=== PATIENT | female | born 1960 | race African-American/Black ===

== ENCOUNTER 2017-06-01 16:54 | Emergency (ER) | payer MEDICARE, MEDICAID ==
[~2017-06-01] VITALS: Ht 170.2 cm; Wt 198.7 kg
[2017-06-01 16:59] VITALS: BP 130/73
--- NOTE | 2017-06-01 17:08 | Emergency Room Report ---
History of Present Illness General Chief Complaint: Headache Source: Patient, Medical Record, EMS Present Illness HPI [id number] BIBEMS for "headache" for 2 days Frontal, non-radiating No nausea/vomiting, neck pain/stiffness usually takes tylenol - "didnt want to take because I had a bad experience with tramadol. The [facility] doctor told me that oxygen made the tramadol worse in combination." Refused tylenol from SNF No history of migraine, tumor, SAH, MYNOR Denies focal extremity weakness Allergies: Coded Allergies: No Known Allergies (Unverified , 06/01/17) Patient History Past Medical History: other - headaches Past Surgical History: none Pertinent Family History: none Social History: Denies: smoking, alcohol use, drug use Last Menstrual Period: na Now: No Immunizations: UTD Reviewed Nursing Documentation: PMH: Agreed, PSxH: Agreed Nursing Documentation-PMH Past Medical History: No History, Except For Hx Hypertension: Yes Hx Asthma: Yes Hx Diabetes: Yes Hx Gastrointestinal Problems: Yes History Of Psychiatric Problem: Yes - anxiety Review of Systems All Other Systems: negative except mentioned in HPI Physical Exam Vital Signs Date Time Temp Pulse Resp B/P (MAP) Pulse Ox O2 Delivery O2 Flow Rate FiO2 06/01/17 16:43 98.2 82 22 126/74 96 Sp02 EP Interpretation: reviewed, normal General Appearance: normal inspection, well appearing, no apparent distress, alert, GCS 15, non-toxic, obese Head: normocephalic, atraumatic Eyes: bilateral eye PERRL, bilateral eye EOMI ENT: normal ENT inspection, hearing grossly normal, normal voice Neck: normal inspection, full range of motion, supple, no bony tend Respiratory: normal inspection, lungs clear, normal breath sounds, no respiratory distress, no retraction, no wheezing Cardiovascular #1: regular rate, rhythm, no edema Gastrointestinal: normal inspection, normal bowel sounds, non tender, soft, no guarding, no hernia Genitourinary: no CVA tenderness Musculoskeletal: normal inspection, back normal, normal range of motion, Shaheen' s Sign negative Neurologic: normal inspection, alert, oriented x3, responsive, digital community manager III-XII nml as tested, speech normal Psychiatric: normal inspection, judgement/insight normal, mood/affect normal Skin: normal inspection, normal color, no rash Medical Decision Making Diagnostic Impression: Primary Impression: Headache Qualified Codes: G44.209 - Tension-type headache, unspecified, not intractable ER Course Tension headache for 2 days VSS. Afebrile. Not hypoxic No focal neuro extremities Tension headache likely No signs of meningitis Well appearing. No meningismus. Doubt SAH or meningitis Given tylenol/reglan here DC back to SNF Last Vital Signs Date Time Temp Pulse Resp B/P (MAP) Pulse Ox O2 Delivery O2 Flow Rate FiO2 06/01/17 16:43 98.2 82 22 126/74 96 Status: improved Disposition: [facility] ALEJANDRO JOSEPH M.D. Jun 01, 2017 17:08
[2017-06-01] MEDS ORDERED: Metoclopramide 10mg/10ml Liq ORAL ONE (17:15)
[2017-06-01 18:00] VITALS: BP 128/68
[2017-06-01 20:20] VITALS: BP_SYST 122; BP_SYST 126; BP_DIAS 62; BP_DIAS 64
== END 2017-06-01 20:50 ==
LOC: EDBD 16:54 → EMR 17:18
DX: R51 Headache (principal); I10 Essential (primary) hypertension; E11.9 Type 2 diabetes mellitus without complications; J45.909 Unspecified asthma, uncomplicated
CPT/HCPCS: 99284

== ENCOUNTER 2017-08-19 07:23 | Inpatient (IN) | payer MEDICARE, MEDICAID ==
[2017-08-19] VITALS (34 sets, daily range): BP systolic 43–152; BP diastolic 14–92
[~2017-08-19] VITALS: Ht 160 cm; Wt 219.6 kg
[2017-08-19] MEDS ORDERED: Vancomycin 1.5gm/D5W 250ml 250 ML IVPB ONE ×2 (07:45→12:00)
[2017-08-19] MEDS ORDERED: Cefepime HCl 1 GM in NS 55 ML IV SCH (07:45)
[2017-08-19] MEDS ORDERED: Aspirin Baby 81mg ORAL ONE (07:45)
[2017-08-19] MEDS ORDERED: PROTONIX40 MG ORAL (07:46)
[2017-08-19] MEDS ORDERED: NUTRISOURCE FI205 GM PO (07:46)
[2017-08-19] MEDS ORDERED: VITAMIN B122500 MCG PO (07:46)
[2017-08-19] MEDS ORDERED: LIDOCAINE VISC100 ML ORAL (07:46)
[2017-08-19] MEDS ORDERED: TYLENOL EXTRA500 MG ORAL (07:46)
[2017-08-19] MEDS ORDERED: JANUVIA25 MG ORAL (07:46)
[2017-08-19] MEDS ORDERED: IPRATROPIU0.2 MG/1 M HHN (07:46)
[2017-08-19] MEDS ORDERED: BIOTENE1000 ML MM (07:46)
[2017-08-19] MEDS ORDERED: ACIDOPHILUS1 EAC6 PO (07:46)
[2017-08-19] MEDS ORDERED: NUTRISOURCE FI1 EACH PO (07:46)
[2017-08-19] MEDS ORDERED: LOMOTIL TABLET1 EACH ORAL (07:46)
[2017-08-19] MEDS ORDERED: GABAPENTIN600 MG ORAL (07:46)
[2017-08-19] MEDS ORDERED: COMPAZINE10 MG ORAL (07:46)
[2017-08-19] MEDS ORDERED: PHENERGAN SUPP25 MG RECTAL (07:46)
[2017-08-19] MEDS ORDERED: CATAPRES0.1 MG ORAL (07:46)
[2017-08-19] MEDS ORDERED: GLIPIZIDE XL10 M1 ORAL (07:46)
[2017-08-19] MEDS ORDERED: DOCUSIL100 M1 ORAL (07:46)
[2017-08-19] MEDS ORDERED: ZANTAC150 MG ORAL (07:46)
[2017-08-19] MEDS ORDERED: ALBUTEROL2.5 MG/3 M INH (07:46)
[2017-08-19] MEDS ORDERED: AZELASTINE HCL6 ML OP (07:46)
[2017-08-19] MEDS ORDERED: CAPSAICIN42.5 GM TP (07:46)
[2017-08-19] MEDS ORDERED: HUMULIN R100 UNIT/1 SUBQ (07:46)
[2017-08-19] MEDS ORDERED: LANTUS SOL100 UNIT/1 SUBQ (07:46)
[2017-08-19] MEDS ORDERED: LORATADINE10 M3 PO (07:46)
[2017-08-19] MEDS ORDERED: FLONASE ALLERG9.9 ML NS (07:46)
--- NOTE | 2017-08-19 08:00 | Emergency Room Report ---
History of Present Illness General Chief Complaint: Upper Respiratory Illness Present Illness HPI Patient is a 57-year-old female brought in by EMS after increased cough and difficulty breathing. The patient was noted to have a low oxygen saturation in a 70s. The patient had previously been hospitalized for similar symptoms most recently [facility]. patient prior history of morbid obesity. The patient was started on nonrebreather by EMS and given breathing treatments. Allergies: Coded Allergies: No Known Allergies (Unverified , 06/01/17) Patient History Past Medical History: see triage record Past Surgical History: unable to obtain Reviewed Nursing Documentation: PMH: Agreed, PSxH: Agreed Nursing Documentation-PMH Hx Hypertension: Yes Hx Asthma: Yes Hx Diabetes: Yes Hx Gastrointestinal Problems: Yes Review of Systems All Other Systems: negative except mentioned in HPI Physical Exam Vital Signs Date Time Temp Pulse Resp B/P (MAP) Pulse Ox O2 Delivery O2 Flow Rate FiO2 08/19/17 07:16 70 20 100/64 100 Nasal Cannula 6.0 08/19/17 07:34 100.1 08/19/17 07:37 40 Sp02 EP Interpretation: reviewed, normal General Appearance: normal inspection, alert, GCS 15, obese, Chronically Ill Head: atraumatic ENT: normal ENT inspection, hearing grossly normal, normal voice Neck: normal inspection, full range of motion, supple, no bony tend Respiratory: normal inspection, no retraction, decreased breath sounds, wheezing Cardiovascular #1: regular rate, rhythm, no edema Gastrointestinal: normal inspection, normal bowel sounds, non tender, soft, no guarding, no hernia Genitourinary: no CVA tenderness Musculoskeletal: normal inspection, back normal, normal range of motion Neurologic: normal inspection, alert, oriented x3, responsive, speech normal Psychiatric: normal inspection, judgement/insight normal, mood/affect normal Skin: normal inspection, normal color, no rash Procedures Critical Care Time Critical Care Time Patient had a critical medical condition which untreated could potentially result in life or limb threatening injury. Total critical care time excluding procedures approximately 45 minutes. Intubation Intubation : Consent: Emergent Intubation Method: orotracheal Tube Size (cm): 8.0 Medications: Etomidate Breath Sounds after Intubation: equal Attempts: Other - 3 Patient Tolerated: Well Medical Decision Making Diagnostic Impression: Primary Impression: Morbid obesity Additional Impressions: Anemia Multiple organ failure Shock liver Acute respiratory failure with hypoxia and hypercarbia Non-STEMI (non-ST elevated myocardial infarction) Hyperkalemia Acute respiratory acidosis ER Course Patient presented for shortness of breath. Differential included but was not limited to anemia, pneumonia, pneumothorax, myocardial infarction, pericardial effusion, congestive heart failure, acidosis. Because of complexity of patient' s case laboratory testing and imaging studies were ordered. EKG interpreted by me showed normal sinus rhythm with a rate of 68 with diffuse T wave inversion there were no ST segment changes noted. The patient was given aspirin. She started on BiPAP. The patient was intubated after laryngoscopy x3. The patient was noted to have morbid obesity and I was unable to visualize the vocal cords and initial attempt with direct laryngoscopy. The laryngoscopy with Glidescope was able to visualize cords however tube passed into esophagus. The patient was subsequently bagged via LMA. And oxygen saturation was maintained. Patient was given IV etomidate for intubation. A 8- 0 ET tube was subsequently placed. Post procedure chest x-ray showed adequate ET tube placement with cardiomegaly. The patient was noted to have climbing CO2 levels on repeat ABG. Potassium was noted to be elevated and patient was noted to have marked elevation of her AST and ALT consistent with acute liver injury. Patient was given IV Acetadote. Abdominal ultrasound was ordered. The patient started on a propofol drip post intubation. The patient noted have EKG without T wave peaking or QRS widening. A repeat potassium on laboratory testing was still elevated. This is likely partially due to the patient's respiratory acidosis. Patient was discussed with Dr. Alston who was contacted for for inpatient management. Labs Test 08/19/17 07:50 08/19/17 08:45 08/19/17 09:00 08/19/17 09:55 White Blood Count 16.6 K/UL (4.8-10.8) Red Blood Count 5.29 M/UL (4.20-5.40) Hemoglobin 11.7 G/DL (12.0-16.0) Hematocrit 44.4 % (37.0-47.0) Mean Corpuscular Volume 84 FL (80-99) Mean Corpuscular Hemoglobin 22.1 PG (27.0-31.0) Mean Corpuscular Hemoglobin Concent 26.3 G/DL (32.0-36.0) Red Cell Distribution Width 18.6 % (11.6-14.8) Platelet Count 319 K/UL (150-450) Mean Platelet Volume 6.4 FL (6.5-10.1) Neutrophils (%) (Auto) % (45.0-75.0) Lymphocytes (%) (Auto) % (20.0-45.0) Monocytes (%) (Auto) % (1.0-10.0) Eosinophils (%) (Auto) % (0.0-3.0) Basophils (%) (Auto) % (0.0-2.0) Differential Total Cells Counted 100 Neutrophils % (Manual) 85 % (45-75) Lymphocytes % (Manual) 6 % (20-45) Monocytes % (Manual) 9 % (1-10) Eosinophils % (Manual) 0 % (0-3) Basophils % (Manual) 0 % (0-2) Band Neutrophils 0 % (0-8) Platelet Estimate Adequate Platelet Morphology Normal Hypochromasia 2+ Microcytosis 1+ Sodium Level 131 MMOL/L (136-145) Potassium Level 8.0 MMOL/L (3.5-5.1) 7.8 MMOL/L (3.5-5.1) Chloride Level 93 MMOL/L (98-107) Carbon Dioxide Level 26 MMOL/L (21-32) Anion Gap 11 mmol/L (5-15) Blood Urea Nitrogen 44 mg/dL (7-18) Creatinine 4.2 MG/DL (0.55-1.30) Estimat Glomerular Filtration Rate 13.1 mL/min (>60) Glucose Level 226 MG/DL (74-106) Lactic Acid Level 8.10 mmol/L (0.66-2.22) 6.90 mmol/L (0.66-2.22) Calcium Level 8.9 MG/DL (8.5-10.1) Total Bilirubin 0.8 MG/DL (0.2-1.0) Aspartate Amino Transf (AST/SGOT) 9288 U/L (15-37) Alanine Aminotransferase (ALT/SGPT) 4438 U/L (12-78) Alkaline Phosphatase 101 U/L (46-116) Total Creatine Kinase 183 U/L (26-308) Creatine Kinase MB 3.1 NG/ML (0.0-3.6) Creatine Kinase MB Relative Index 1.6 Troponin I 0.461 ng/mL (0.000-0.056) Pro-B-Type Natriuretic Peptide 20213 pg/mL (0-125) Total Protein 9.0 G/DL (6.4-8.2) Albumin 3.0 G/DL (3.4-5.0) Globulin 6.0 g/dL Albumin/Globulin Ratio 0.5 (1.0-2.7) Urine Color Yellow Urine Appearance Slightly cloudy Urine pH 5 (4.5-8.0) Urine Specific [place] 1.025 (1.005-1.035) Urine Protein 3+ (NEGATIVE) Urine Glucose (UA) Negative (NEGATIVE) Urine Ketones 1+ (NEGATIVE) Urine Occult Blood 3+ (NEGATIVE) Urine Nitrite Negative (NEGATIVE) Urine Bilirubin 1+ (NEGATIVE) Urine Ictotest Negative Urine Urobilinogen 4 MG/DL (0.0-1.0) Urine Leukocyte Esterase 1+ (NEGATIVE) Urine RBC 2-4 /HPF (0 - 2) Urine WBC 2-4 /HPF (0 - 2) Urine Squamous Epithelial Cells Few /LPF (NONE/OCC) Urine Amorphous Sediment Few /LPF (NONE) Urine Bacteria Few /HPF (NONE) Arterial Blood pH 7.020 (7.350-7.450) 7.061 (7.350-7.450) Arterial Blood Partial Pressure CO2 96.7 mmHg (35.0-45.0) 113.3 mmHg (35.0-45.0) Arterial Blood Partial Pressure O2 84.0 mmHg (75.0-100.0) 72.9 mmHg (75.0-100.0) Arterial Blood HCO3 24.4 mmol/L (22.0-26.0) 31.4 mmol/L (22.0-26.0) Arterial Blood Oxygen Saturation 90.2 % (92.0-98.0) 88.9 % (92.0-98.0) Arterial Blood Base Excess -8.1 -1.4 Doroteo Test Positive Positive Acetaminophen Level < 2 MCG/ML (10-30) Test 08/19/17 11:00 08/19/17 12:15 Prothrombin Time 14.5 SEC (9.30-11.50) Prothromb Time International Ratio 1.4 (0.9-1.1) Activated Partial Thromboplast Time 26 SEC (23-33) Sodium Level 136 MMOL/L (136-145) Potassium Level 7.4 MMOL/L (3.5-5.1) Chloride Level 96 MMOL/L (98-107) Carbon Dioxide Level 26 MMOL/L (21-32) Anion Gap 15 mmol/L (5-15) Blood Urea Nitrogen 47 mg/dL (7-18) Creatinine 4.1 MG/DL (0.55-1.30) Estimat Glomerular Filtration Rate 13.5 mL/min (>60) Glucose Level 259 MG/DL (74-106) Osmolality 327 mOsm/kg (297-317) Uric Acid 9.7 MG/DL (2.6-7.2) Calcium Level 8.3 MG/DL (8.5-10.1) Phosphorus Level > 9.0 MG/DL (2.5-4.9) Magnesium Level 1.9 MG/DL (1.8-2.4) Total Bilirubin 0.6 MG/DL (0.2-1.0) Aspartate Amino Transf (AST/SGOT) > 70730 U/L (15-37) Alanine Aminotransferase (ALT/SGPT) 6658 U/L (12-78) Alkaline Phosphatase 87 U/L (46-116) Total Creatine Kinase 197 U/L (26-308) Total Protein 8.1 G/DL (6.4-8.2) Albumin 2.6 G/DL (3.4-5.0) Globulin 5.5 g/dL Albumin/Globulin Ratio 0.5 (1.0-2.7) Triglycerides Level 99 MG/DL (30-150) Free Thyroxine 1.13 NG/DL (0.76-1.46) Arterial Blood pH 7.070 (7.350-7.450) Arterial Blood Partial Pressure CO2 84.4 mmHg (35.0-45.0) Arterial Blood Partial Pressure O2 143.5 mmHg (75.0-100.0) Arterial Blood HCO3 23.9 mmol/L (22.0-26.0) Arterial Blood Oxygen Saturation 97.7 % (92.0-98.0) Arterial Blood Base Excess -7.4 Doroteo Test Positive EKG Diagnostic Results Rate: normal Rhythm: NSR ST Segments: other - diffuse t wave inversion Last Vital Signs Date Time Temp Pulse Resp B/P (MAP) Pulse Ox O2 Delivery O2 Flow Rate FiO2 1/10/18 07:39 40 08/19/17 07:34 69 16 Non-Rebreather 15.0 08/19/17 07:34 100.1 107/55 100 Status: unchanged Disposition: ADMITTED INPATIENT Condition: Serious Referrals: BERNA LEMUS (PCP) Thien Olivera Aug 19, 2017 08:00
[2017-08-19] MEDS ORDERED: Cefepime 1gm vial ONE (08:11)
[2017-08-19 08:17] LABS: HEMATOCRIT 44.4 % (37.0-47.0); HEMOGLOBIN 11.7 G/DL (12.0-16.0); MEAN CORPUSCULAR VOLUME 84 FL (80-99); PLATELET COUNT 319 K/UL (150-450); RED BLOOD COUNT 5.29 M/UL (4.20-5.40); RED CELL DISTRIBUTION WIDTH 18.6 % (11.6-14.8); WHITE BLOOD COUNT 16.6 K/UL (4.8-10.8)
[2017-08-19 08:34] LABS: ALANINE AMINOTRANSFERASE 4438 U/L (12-78); ALBUMIN/GLOBULIN RATIO 0.5 (1.0-2.7); ALKALINE PHOSPHATASE 101 U/L (46-116); ANION GAP 11 mmol/L (5-15); BILIRUBIN,TOTAL 0.8 MG/DL (0.2-1.0); BLOOD UREA NITROGEN 44 mg/dL (7-18); CALCIUM 8.9 MG/DL (8.5-10.1); CARBON DIOXIDE 26 MMOL/L (21-32); CHLORIDE 93 MMOL/L (98-107); CKMB 3.1 NG/ML (0.0-3.6); CREATINE KINASE 183 U/L (26-308); CREATININE 4.2 MG/DL (0.55-1.30); SODIUM 131 MMOL/L (136-145)
[2017-08-19 09:08] LABS: APPEARANCE,URINE SLIGHTLY CLOUDY; BILIRUBIN, URINE 1+ (NEGATIVE); GLUCOSE, URINE (UA) NEGATIVE (NEGATIVE); KETONES,URINE 1+ (NEGATIVE); LEUKOCYTE ESTERASE ,URINE 1+ (NEGATIVE); NITRITE,URINE NEGATIVE (NEGATIVE); PH,URINE 5 (4.5-8.0); PROTEIN,URINE 3+ (NEGATIVE); UROBILINOGEN,URINE 4 MG/DL (0.0-1.0)
[2017-08-19] MEDS ORDERED: ACETYLCYSTEINE IVPB ONE ×2 (09:15)
[2017-08-19] MEDS ORDERED: D5W IVPB ONE ×2 (09:15)
[2017-08-19] MEDS ORDERED: Hydrocortisone 100mg Inj IV ONE (09:15)
[2017-08-19 09:29] LABS: ASPARTATE AMINO TRANSFERASE 9288 U/L (15-37)
[2017-08-19] MEDS ORDERED: Sodium Bicarbonate 50ml Carp IV ONE (09:30)
[2017-08-19] MEDS ORDERED: Sodium Polystyrene Sulfonate 15gm Powder ORAL ONE (09:30)
[2017-08-19 09:31] LABS: COLOR,URINE YELLOW
--- NOTE | 2017-08-19 10:03 | Diagnostic Imaging Report ---
Indication: Dyspnea Technique: XRAY Chest 1v Comparison: None Findings: Low lung volumes exaggerate heart size and vascular markings. Despite technique there is likely cardiomegaly. Mild vascular congestion. No definite focal airspace consolidation. No pleural effusion. No pneumothorax. No acute bony abnormality. Impression: Limited exam with low lung volumes. Cardiomegaly and pulmonary vascular congestion. These findings may be exaggerated by low lung volumes. Correlate clinically. Repeat exam with improved inspiratory effort can be obtained for better evaluation as clinically indicated. No focal airspace consolidation.
--- NOTE | 2017-08-19 10:25 | Consultation ---
History of Present Illness General Date patient seen: Aug 19, 2017 Chief Complaint: Upper Respiratory Illness Referring physician: Dr. Hamlin Reason for Consultation: Pneumonia Present Illness HPI Patient is a 57 yo fem with pmhx morbid obesity, HTN, asthma DM2, GERD presenting to [facility] with c/o worsening cough and shortness of breath I was asked to consult and evaluate the patients respiratory status. Her CXR is remarkable for pulmovascular congestion and patient has had episodes of hypoxia. A arterial blood gas will be conducted to assess her ventilatory capacity and evaluate for respiratory depression and assess respiratory perfusion. In addition to her respiratory ailments the patient also appears to be suffering from liver abnormalities and she has been admitted for her serious medical condition. Allergies: Coded Allergies: No Known Allergies (Unverified , 06/01/17) Medication History Scheduled Allopurinol* (Allopurinol*), 300 MG NG DAILY Aspirin* (Aspirin*), 81 MG GT DAILY Atorvastatin Calcium* (Lipitor*), 20 MG GT BEDTIME Clotrimazole* (Lotrimin*), 1 APPLIC TOPIC THREE TIMES A DAY Digoxin* (Lanoxin*), 0.25 MG ORAL DAILY Docusate Sodium* (Docusil*), 100 MG ORAL TWICE A DAY, (Reported) Ferrous Sulfate (Feosol), 325 MG ORAL THREE TIMES A DAY Furosemide* (Lasix*), 40 MG ORAL DAILY Gabapentin* (Gabapentin*), 600 MG ORAL QHS, (Reported) Glipizide (Glipizide Xl), 10 MG ORAL DAILY, (Reported) Guaifenesin (Mucinex), 1,200 MG ORAL TWICE A DAY Insulin Glargine (Lantus), 21 SUBQ BID, (Reported) Ipratropium/Albuterol Sulfate (DuoNeb 0.5-3(2.5)mg/3ml), 3 ML HHN Q6HR Lactobacillus Acidophilus (Acidophilus), 1 EACH PO BID, (Reported) Metoprolol Succinate* (Metoprolol Succinate*), 25 MG ORAL DAILY Pantoprazole* (Protonix*), 40 MG ORAL DAILY, (Reported) Scheduled PRN Acetaminophen* (Tylenol Extra Strength*), 500 MG ORAL Q12HR PRN for Mild Pain/ Temp > 100.5, (Reported) Albuterol Sulfate* (Albuterol Sulfate Hhn*), 3 ML INH Q4H PRN for Shortness of Breath, (Reported) Diphenoxylate Hcl/Atropine (Lomotil Tablet), 2 TAB ORAL for Diarrhea, (Reported) Guaifenesin* (Guaifenesin), 200 MG ORAL Q4H PRN Ipratropium/Albuterol Sulfate (DuoNeb 0.5-3(2.5)mg/3ml), 3 ML HHN Q4HR PRN Prochlorperazine (Compazine*), 10 MG ORAL Q8HR PRN for Nausea & Vomiting, ( Reported) [[facility] to dose], 1 EA MISC DAILY PRN Miscellaneous Medications Azelastine Hcl (Azelastine Hcl), 6 ML OP, (Reported) Capsaicin (Capsaicin), 42.5 GM TP, (Reported) Cyanocobalamin (Vitamin B-12) (Vitamin B12), 2,500 MCG PO, (Reported) Fluticasone Propionate (Flonase Allergy Relief), 9.9 ML NS, (Reported) Guar Gum (Nutrisource Fiber), 1 EACH PO, (Reported) Insulin Regular, Human (Humulin R), 0 SUBQ, (Reported) Loratadine (Loratadine), 10 MG PO, (Reported) Patient History Healthcare decision maker Resuscitation status Advanced Directive on File Past Medical/Surgical History Past Medical/Surgical History: (1) Transaminitis (2) Multiple organ failure (3) Anemia (4) Shock liver (5) Lactic acid acidosis (6) Septic shock (7) KASHIF (acute kidney injury) (8) Acute toxic metabolic encephalopathy (9) Acute renal failure (ARF) (10) Elevated troponin I level (11) Morbid obesity (12) SVT (supraventricular tachycardia) (13) Fatty liver (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 (15) Acute respiratory failure with hypoxia and hypercapnia (16) Asthma (17) GERD (gastroesophageal reflux disease) (18) Acute on chronic diastolic (congestive) heart failure (19) HTN (hypertension) (20) DM2 (diabetes mellitus, type 2) (21) Likely obesity hypoventilation syndrome (22) lives at [facility] (23) H/O supraventricular tachycardia (24) Hypomagnesemia (25) Hypokalemia (26) Hematuria (27) Vaginal bleeding (28) HCAP 2/2 MRSA Review of Systems Constitutional: Reports: fever, malaise, weakness Respiratory: Reports: cough, shortness of breath, SANTOS Physical Exam General Appearance: no apparent distress, lethargic Lines, tubes and drains: peripheral HEENT: normocephalic, atraumatic, anicteric, PERRL Neck: non-tender, normal alignment, supple, abnormal alignment Respiratory/Chest: chest wall non-tender, decreased breath sounds, crackles/ rales Breasts: no masses Cardiovascular/Chest: normal peripheral pulses, normal rate, regular rhythm, no JVD Abdomen: normal bowel sounds, non tender, soft, no organomegaly, no mass Genitourinary/Rectal: normal genital exam, normal rectal exam Extremities: normal range of motion, non-tender, normal inspection, no calf tenderness Skin Exam: normal pigmentation, warm/dry Neurologic: underbaster II-XII grossly normal, responsive, disoriented Last 24 Hour Vital Signs Date Time Temp Pulse Resp B/P (MAP) Pulse Ox O2 Delivery O2 Flow Rate FiO2 08/19/17 09:33 65 20 114/49 92 Bi-pap 35 08/19/17 09:00 35 08/19/17 08:50 65 26 90 Facial 35 08/19/17 08:45 30 08/19/17 07:39 40 08/19/17 07:37 40 08/19/17 07:34 69 16 Non-Rebreather 15.0 08/19/17 07:34 100.1 69 16 107/55 100 Non-Rebreather 15.0 08/19/17 07:30 60 26 100 Facial 40 08/19/17 07:16 70 20 100/64 100 Nasal Cannula 6.0 Laboratory Tests Test 08/19/17 07:50 08/19/17 08:45 08/19/17 09:00 08/19/17 09:55 White Blood Count 16.6 K/UL (4.8-10.8) H Red Blood Count 5.29 M/UL (4.20-5.40) Hemoglobin 11.7 G/DL (12.0-16.0) L Hematocrit 44.4 % (37.0-47.0) Mean Corpuscular Volume 84 FL (80-99) Mean Corpuscular Hemoglobin 22.1 PG (27.0-31.0) L Mean Corpuscular Hemoglobin Concent 26.3 G/DL (32.0-36.0) L Red Cell Distribution Width 18.6 % (11.6-14.8) H Platelet Count 319 K/UL (150-450) Mean Platelet Volume 6.4 FL (6.5-10.1) L Neutrophils (%) (Auto) % (45.0-75.0) Lymphocytes (%) (Auto) % (20.0-45.0) Monocytes (%) (Auto) % (1.0-10.0) Eosinophils (%) (Auto) % (0.0-3.0) Basophils (%) (Auto) % (0.0-2.0) Differential Total Cells Counted 100 Neutrophils % (Manual) 85 % (45-75) H Lymphocytes % (Manual) 6 % (20-45) L Monocytes % (Manual) 9 % (1-10) Eosinophils % (Manual) 0 % (0-3) Basophils % (Manual) 0 % (0-2) Band Neutrophils 0 % (0-8) Platelet Estimate Adequate Platelet Morphology Normal Hypochromasia 2+ Microcytosis 1+ Sodium Level 131 MMOL/L (136-145) L Potassium Level 8.0 MMOL/L (3.5-5.1) *H 7.8 MMOL/L (3.5-5.1) *H Chloride Level 93 MMOL/L (98-107) L Carbon Dioxide Level 26 MMOL/L (21-32) Anion Gap 11 mmol/L (5-15) Blood Urea Nitrogen 44 mg/dL (7-18) H Creatinine 4.2 MG/DL (0.55-1.30) H Estimat Glomerular Filtration Rate 13.1 mL/min (>60) Glucose Level 226 MG/DL (74-106) H Lactic Acid Level 8.10 mmol/L (0.66-2.22) H Pending Calcium Level 8.9 MG/DL (8.5-10.1) Total Bilirubin 0.8 MG/DL (0.2-1.0) Aspartate Amino Transf (AST/SGOT) 9288 U/L (15-37) H Alanine Aminotransferase (ALT/SGPT) 4438 U/L (12-78) H Alkaline Phosphatase 101 U/L (46-116) Total Creatine Kinase 183 U/L (26-308) Creatine Kinase MB 3.1 NG/ML (0.0-3.6) Creatine Kinase MB Relative Index 1.6 Troponin I 0.461 ng/mL (0.000-0.056) Pro-B-Type Natriuretic Peptide 03712 pg/mL (0-125) H Total Protein 9.0 G/DL (6.4-8.2) H Albumin 3.0 G/DL (3.4-5.0) L Globulin 6.0 g/dL Albumin/Globulin Ratio 0.5 (1.0-2.7) L Urine Color Yellow Urine Appearance Slightly cloudy Urine pH 5 (4.5-8.0) Urine Specific [place] 1.025 (1.005-1.035) Urine Protein 3+ (NEGATIVE) H Urine Glucose (UA) Negative (NEGATIVE) Urine Ketones 1+ (NEGATIVE) H Urine Occult Blood 3+ (NEGATIVE) H Urine Nitrite Negative (NEGATIVE) Urine Bilirubin 1+ (NEGATIVE) H Urine Ictotest Negative Urine Urobilinogen 4 MG/DL (0.0-1.0) H Urine Leukocyte Esterase 1+ (NEGATIVE) H Urine RBC 2-4 /HPF (0 - 2) H Urine WBC 2-4 /HPF (0 - 2) Urine Squamous Epithelial Cells Few /LPF (NONE/OCC) Urine Amorphous Sediment Few /LPF (NONE) H Urine Bacteria Few /HPF (NONE) Arterial Blood pH 7.020 (7.350-7.450) 7.061 (7.350-7.450) Arterial Blood Partial Pressure CO2 96.7 mmHg (35.0-45.0) *H 113.3 mmHg (35.0-45.0) *H Arterial Blood Partial Pressure O2 84.0 mmHg (75.0-100.0) 72.9 mmHg (75.0-100.0) L Arterial Blood HCO3 24.4 mmol/L (22.0-26.0) 31.4 mmol/L (22.0-26.0) H Arterial Blood Oxygen Saturation 90.2 % (92.0-98.0) L 88.9 % (92.0-98.0) L Arterial Blood Base Excess -8.1 -1.4 Doroteo Test Positive Positive Acetaminophen Level < 2 MCG/ML (10-30) L Microbiology Date/Time Source Procedure Growth Status 08/19/17 08:45 Nasal Nares Influenza Types A,B Antigen (ZECHARIAH) - Final Complete Height (Feet): 5 Height (Inches): 4.00 Weight (Pounds): 350 Medications Current Medications Medications (Trade) Dose Ordered Sig/Felipe Route PRN Reason Start Time Stop Time Status Last Admin Dose Admin Acetaminophen (Tylenol) 650 mg Q4H PRN ORAL fever 08/19/17 10:30 09/18/17 10:29 UNV Acetylcysteine 5000 mg/Dextrose 525 ml @ 125 mls/hr ONCE ONCE IVPB 08/19/17 09:15 08/19/17 13:26 Acetylcysteine 43890 mg/Dextrose 1,050 ml @ 62.5 mls/hr ONCE ONCE IVPB 08/19/17 09:15 08/20/17 02:02 Acetylcysteine 98331 mg/Dextrose 275 ml @ 200 mls/hr ONCE ONCE IVPB 08/19/17 09:15 08/19/17 10:37 08/19/17 09:48 Albuterol/ Ipratropium (Albuterol/ Ipratropium) 3 ml EVERY 4 HOURS PRN HHN Shortness of Breath 08/19/17 10:30 08/24/17 10:29 UNV Cefepime HCl 1 gm/ Sodium Chloride 55 ml @ 110 mls/hr Q12H IV 08/19/17 07:45 08/20/17 07:44 08/19/17 08:14 Cefepime HCl 2 gm/ Dextrose 110 ml @ 220 mls/hr EVERY 12 HOURS IV 08/19/17 21:00 08/26/17 20:59 UNV Dextrose (Dextrose 50%) STAT PRN IV Hypoglycemia 08/19/17 10:30 09/18/17 10:29 UNV Heparin Sodium (Porcine) (Heparin 5000 units/ml) 5,000 units EVERY 12 HOURS SUBQ 08/19/17 21:00 09/18/17 20:59 UNV Insulin Aspart (NovoLOG) BEFORE MEALS AND HS SUBQ 08/19/17 11:30 09/18/17 11:29 UNV Metronidazole 100 ml @ 100 mls/hr Q8H IV 08/19/17 07:45 08/20/17 07:44 08/19/17 09:28 Morphine Sulfate (Morphine Sulfate) 2 mg EVERY 4 HOURS PRN IVP Moderate Pain (Pain Scale 4-6) 08/19/17 10:30 08/26/17 10:29 UNV Nitroglycerin (Ntg) 0.4 mg Every 5 Minutes PRN SL Prn Chest Pain 08/19/17 10:30 09/18/17 10:29 UNV Ondansetron HCl (Zofran) 4 mg Q6H PRN IVP Nausea & Vomiting 08/19/17 10:30 09/18/17 10:29 UNV Polyethylene Glycol (Miralax) 17 gm DAILYPRN PRN ORAL Constipation 08/19/17 10:30 09/18/17 10:29 UNV Sodium Chloride 1,000 ml @ 100 mls/hr Q10H IVLG 08/20/17 10:19 09/19/17 10:18 UNV Temazepam (Restoril) 15 mg HSPRN PRN ORAL Insomnia 08/19/17 10:30 08/26/17 10:29 UNV Vancomycin HCl 1 gm/Dextrose 275 ml @ 183.3 mls/ hr Q24H IV 08/20/17 00:30 08/25/17 00:29 UNV Assessment/Plan Status: stable, progressing Assessment/Plan (1) Acute respiratory failure with hypoxia (2) Acute renal failure (ARF) (3) Septic shock (4) Acute toxic metabolic encephalopathy (5) DM2 (diabetes mellitus, type 2) 6) Lactic acid acidosis PLAN Respiratory: monitor respiratory rate, adjust FIO2, CXR Cardiac: continue to monitor HR/BP Renal: F/U I&O, check electrolytes, Infectious Disease: check cultures, continue antibiotics Gastrointestinal: continue feedings/current rate Endocrine: monitor blood sugar Hematologic: monitor H/H Neurologic: PRN Morphine Prophylaxis: Protonix, Heparin Notes Reviewed: console assembler, 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 with: employment case manager DOMONIQUE DOBBS Aug 19, 2017 10:25
[2017-08-19] MEDS ORDERED: Miralax 17gm pkt ORAL PRN (10:30)
[2017-08-19] MEDS ORDERED: Morphine Sulfate 2mg/ml Inj IVP PRN (10:30)
--- NOTE | 2017-08-19 10:40 | Consultation ---
Consult Note Consult Note Patient is a 57-year-old female brought in by EMS after increased cough and difficulty breathing. The patient was noted to have a low oxygen saturation in a 70s. The patient had previously been hospitalized for similar symptoms most recently [facility]. patient prior history of morbid obesity. The patient was started on nonrebreather by EMS and given breathing treatments. Hx Hypertension: Yes Hx Asthma: Yes Hx Diabetes: Yes Hx Gastrointestinal Problems: Yes seen in ER Lab reviewed Assessment/Plan Imp: acute renal failure Hyperkalemia sepsis, high Lactic , acidosis low BP resp failure obese Plan Dialysis cath and dialysis prasad for high K discussed with ER MD PATIENT IN NEED OF EMERGENCY LIFE SAVING HEMO DIALYSIS AND CAN NOT GIVE CONSENT AGUSTIN CONTRERAS Aug 19, 2017 10:40
[2017-08-19] MEDS ORDERED: Levophed 4mg/4mL Inj IV ONE (11:24)
[2017-08-19 11:39] LABS: INR 1.4 (0.9-1.1)
[2017-08-19] MEDS ORDERED: Morphine Sulfate 4mg/ml Inj IVP PRN (12:00)
[2017-08-19] MEDS ORDERED: LORazepam Inj 2mg/ml 1ml IV PRN (12:00)
[2017-08-19] MEDS ORDERED: Nitroglycerin Subl 0.4mg tab SL PRN (12:00)
--- NOTE | 2017-08-19 12:04 | Diagnostic Imaging Report ---
Indication: Status post intubation. Dyspnea Technique: XRAY Chest 1v Comparison: 08/19/2017, 8:10 AM Findings/ impression: Interval endotracheal intubation. ET tube tip approximately 2 cm above the lucía. Additional findings unchanged from prior exam.
--- NOTE | 2017-08-19 12:22 | Consultation ---
History of Present Illness General Date patient seen: Aug 19, 2017 Time patient seen: 12:21 Chief Complaint: Upper Respiratory Illness Present Illness HPI 57 y/o F with hx of HTN, Asthma, DM2, morbid obesity is brought to ED on 08/19 with worsening cough, SOB. Noted to be hypoxemic in the 70s with hypercapneia and acidosis and required intubation, elevated lactic acid, hypotensive and on KASHIF with hyperkalemia to 7.8 to be started on HD urgently. Low grade fever Tm 100.1 and leukocytosis to 16.6. Started on IV Vanco and Cefepime. Allergies: Coded Allergies: No Known Allergies (Unverified , 06/01/17) Medication History Scheduled Clonidine Hcl* (Catapres*), 0.1 MG ORAL EVERY 6 HOURS, (Reported) Docusate Sodium* (Docusil*), 100 MG ORAL TWICE A DAY, (Reported) Gabapentin* (Gabapentin*), 600 MG ORAL QHS, (Reported) Glipizide (Glipizide Xl), 10 MG ORAL DAILY, (Reported) Insulin Glargine (Lantus), 21 SUBQ BID, (Reported) Lactobacillus Acidophilus (Acidophilus), 1 EACH PO BID, (Reported) Lidocaine HCl 2% Viscous (Lidocaine HCl 2% Viscous), 15 ML ORAL QID, (Reported) Pantoprazole* (Protonix*), 40 MG ORAL DAILY, (Reported) Ranitidine Hcl* (Zantac*), 150 MG ORAL TWICE A DAY, (Reported) Sitagliptin* (Januvia*), 100 MG ORAL DAILY, (Reported) Scheduled PRN Acetaminophen* (Tylenol Extra Strength*), 500 MG ORAL Q12HR PRN for Mild Pain/ Temp > 100.5, (Reported) Albuterol Sulfate* (Albuterol Sulfate Hhn*), 3 ML INH Q4H PRN for Shortness of Breath, (Reported) Diphenoxylate Hcl/Atropine (Lomotil Tablet), 2 TAB ORAL for Diarrhea, (Reported) Ipratropium [place] 0.5MG/2.5ML (Ipratropium [place] 0.5MG/2.5ML), 0.5 MG HHN Q6H PRN for Shortness of Breath, (Reported) Prochlorperazine (Compazine*), 10 MG ORAL Q8HR PRN for Nausea & Vomiting, ( Reported) Promethazine HCl (Promethegan), 25 MG RECTAL Q6H PRN for Nausea & Vomiting, ( Reported) Miscellaneous Medications Azelastine Hcl (Azelastine Hcl), 6 ML OP, (Reported) Capsaicin (Capsaicin), 42.5 GM TP, (Reported) Cyanocobalamin (Vitamin B-12) (Vitamin B12), 2,500 MCG PO, (Reported) Fluticasone Propionate (Flonase Allergy Relief), 9.9 ML NS, (Reported) Guar Gum (Nutrisource Fiber), 1 EACH PO, (Reported) Guar Gum (Nutrisource Fiber), 205 GM PO, (Reported) Insulin Regular, Human (Humulin R), 0 SUBQ, (Reported) Loratadine (Loratadine), 10 MG PO, (Reported) Saliva Substitution Combo No.9 (Biotene), 1,000 ML MM, (Reported) Patient History Healthcare decision maker Resuscitation status Advanced Directive on File Patient History Narrative PHx: as above SH: reviewed Fhx: non contributory Review of Systems ROS Narrative unable to obtain Physical Exam Physical Exam Narrative General Appearance: normal inspection, alert, GCS 15, obese, Chronically Ill, morbid obesity Head: atraumatic ENT: normal ENT inspection, hearing grossly normal, normal voice Neck: normal inspection, full range of motion, supple, no bony tend Respiratory: normal inspection, no respiratory distress, no retraction, decreased breath sounds, wheezing Cardiovascular regular rate, rhythm, no edema Gastrointestinal: normal inspection, normal bowel sounds, non tender, soft, no guarding, no hernia Musculoskeletal: normal inspection, back normal, normal range of motion Skin: normal inspection, normal color, no rash Last 24 Hour Vital Signs Date Time Temp Pulse Resp B/P (MAP) Pulse Ox O2 Delivery O2 Flow Rate FiO2 08/19/17 12:18 70 21 123/92 97 Endotracheal Tube 100 08/19/17 11:45 70 18 95/53 98 Endotracheal Tube 100 08/19/17 11:30 70 18 89/54 97 Endotracheal Tube 100 08/19/17 11:17 71 22 55/26 100 Endotracheal Tube 100 08/19/17 11:17 18 08/19/17 11:05 16 08/19/17 10:50 19 08/19/17 10:35 70 18 100 08/19/17 10:35 73 22 152/78 100 Bi-pap 35 08/19/17 10:35 22 08/19/17 10:00 67 23 115/64 90 Bi-pap 35 08/19/17 09:33 65 20 114/49 92 Bi-pap 35 08/19/17 09:00 35 08/19/17 08:50 65 26 90 Facial 35 08/19/17 08:45 30 08/19/17 08:30 66 26 94/63 100 Non-Rebreather 15.0 08/19/17 07:39 40 08/19/17 07:37 40 08/19/17 07:34 69 16 Non-Rebreather 15.0 08/19/17 07:34 100.1 69 16 107/55 100 Non-Rebreather 15.0 08/19/17 07:30 60 26 100 Facial 40 08/19/17 07:16 70 20 100/64 100 Nasal Cannula 6.0 Laboratory Tests Test 08/19/17 07:50 08/19/17 08:45 08/19/17 09:00 08/19/17 09:55 White Blood Count 16.6 K/UL (4.8-10.8) H Red Blood Count 5.29 M/UL (4.20-5.40) Hemoglobin 11.7 G/DL (12.0-16.0) L Hematocrit 44.4 % (37.0-47.0) Mean Corpuscular Volume 84 FL (80-99) Mean Corpuscular Hemoglobin 22.1 PG (27.0-31.0) L Mean Corpuscular Hemoglobin Concent 26.3 G/DL (32.0-36.0) L Red Cell Distribution Width 18.6 % (11.6-14.8) H Platelet Count 319 K/UL (150-450) Mean Platelet Volume 6.4 FL (6.5-10.1) L Neutrophils (%) (Auto) % (45.0-75.0) Lymphocytes (%) (Auto) % (20.0-45.0) Monocytes (%) (Auto) % (1.0-10.0) Eosinophils (%) (Auto) % (0.0-3.0) Basophils (%) (Auto) % (0.0-2.0) Differential Total Cells Counted 100 Neutrophils % (Manual) 85 % (45-75) H Lymphocytes % (Manual) 6 % (20-45) L Monocytes % (Manual) 9 % (1-10) Eosinophils % (Manual) 0 % (0-3) Basophils % (Manual) 0 % (0-2) Band Neutrophils 0 % (0-8) Platelet Estimate Adequate Platelet Morphology Normal Hypochromasia 2+ Microcytosis 1+ Sodium Level 131 MMOL/L (136-145) L Potassium Level 8.0 MMOL/L (3.5-5.1) *H 7.8 MMOL/L (3.5-5.1) *H Chloride Level 93 MMOL/L (98-107) L Carbon Dioxide Level 26 MMOL/L (21-32) Anion Gap 11 mmol/L (5-15) Blood Urea Nitrogen 44 mg/dL (7-18) H Creatinine 4.2 MG/DL (0.55-1.30) H Estimat Glomerular Filtration Rate 13.1 mL/min (>60) Glucose Level 226 MG/DL (74-106) H Lactic Acid Level 8.10 mmol/L (0.66-2.22) H 6.90 mmol/L (0.66-2.22) H Calcium Level 8.9 MG/DL (8.5-10.1) Total Bilirubin 0.8 MG/DL (0.2-1.0) Aspartate Amino Transf (AST/SGOT) 9288 U/L (15-37) H Alanine Aminotransferase (ALT/SGPT) 4438 U/L (12-78) H Alkaline Phosphatase 101 U/L (46-116) Total Creatine Kinase 183 U/L (26-308) Creatine Kinase MB 3.1 NG/ML (0.0-3.6) Creatine Kinase MB Relative Index 1.6 Troponin I 0.461 ng/mL (0.000-0.056) Pro-B-Type Natriuretic Peptide 82817 pg/mL (0-125) H Total Protein 9.0 G/DL (6.4-8.2) H Albumin 3.0 G/DL (3.4-5.0) L Globulin 6.0 g/dL Albumin/Globulin Ratio 0.5 (1.0-2.7) L Urine Color Yellow Urine Appearance Slightly cloudy Urine pH 5 (4.5-8.0) Urine Specific [place] 1.025 (1.005-1.035) Urine Protein 3+ (NEGATIVE) H Urine Glucose (UA) Negative (NEGATIVE) Urine Ketones 1+ (NEGATIVE) H Urine Occult Blood 3+ (NEGATIVE) H Urine Nitrite Negative (NEGATIVE) Urine Bilirubin 1+ (NEGATIVE) H Urine Ictotest Negative Urine Urobilinogen 4 MG/DL (0.0-1.0) H Urine Leukocyte Esterase 1+ (NEGATIVE) H Urine RBC 2-4 /HPF (0 - 2) H Urine WBC 2-4 /HPF (0 - 2) Urine Squamous Epithelial Cells Few /LPF (NONE/OCC) Urine Amorphous Sediment Few /LPF (NONE) H Urine Bacteria Few /HPF (NONE) Arterial Blood pH 7.020 (7.350-7.450) 7.061 (7.350-7.450) Arterial Blood Partial Pressure CO2 96.7 mmHg (35.0-45.0) *H 113.3 mmHg (35.0-45.0) *H Arterial Blood Partial Pressure O2 84.0 mmHg (75.0-100.0) 72.9 mmHg (75.0-100.0) L Arterial Blood HCO3 24.4 mmol/L (22.0-26.0) 31.4 mmol/L (22.0-26.0) H Arterial Blood Oxygen Saturation 90.2 % (92.0-98.0) L 88.9 % (92.0-98.0) L Arterial Blood Base Excess -8.1 -1.4 Doroteo Test Positive Positive Acetaminophen Level < 2 MCG/ML (10-30) L Test 08/19/17 11:00 08/19/17 12:15 Prothrombin Time 14.5 SEC (9.30-11.50) H Prothromb Time International Ratio 1.4 (0.9-1.1) H Activated Partial Thromboplast Time 26 SEC (23-33) Sodium Level Pending Potassium Level Pending Chloride Level Pending Carbon Dioxide Level Pending Blood Urea Nitrogen Pending Creatinine Pending Estimat Glomerular Filtration Rate Pending Glucose Level Pending Osmolality 327 mOsm/kg (297-317) H Uric Acid Pending Calcium Level Pending Phosphorus Level Pending Magnesium Level Pending Total Bilirubin Pending Aspartate Amino Transf (AST/SGOT) Pending Alanine Aminotransferase (ALT/SGPT) Pending Alkaline Phosphatase Pending Total Creatine Kinase Pending Total Protein Pending Albumin Pending Globulin Pending Triglycerides Level Pending Free Thyroxine Pending Arterial Blood pH Pending Arterial Blood Partial Pressure CO2 Pending Arterial Blood Partial Pressure O2 Pending Arterial Blood HCO3 Pending Arterial Blood Oxygen Saturation Pending Arterial Blood Base Excess Pending Doroteo Test Pending Microbiology Date/Time Source Procedure Growth Status 08/19/17 08:45 Nasal Nares Influenza Types A,B Antigen (ZECHARIAH) - Final Complete Height (Feet): 5 Height (Inches): 4.00 Weight (Pounds): 350 Medications Current Medications Medications (Trade) Dose Ordered Sig/Felipe Route PRN Reason Start Time Stop Time Status Last Admin Dose Admin Acetaminophen (Tylenol) 650 mg Q4H PRN ORAL fever (temp>100.5F) 08/19/17 10:30 09/18/17 10:29 Acetylcysteine 5000 mg/Dextrose 525 ml @ 125 mls/hr ONCE ONCE IVPB 08/19/17 09:15 08/19/17 13:26 08/19/17 11:32 Acetylcysteine 94187 mg/Dextrose 1,050 ml @ 62.5 mls/hr ONCE ONCE IVPB 08/19/17 09:15 08/20/17 02:02 Albuterol/ Ipratropium (Albuterol/ Ipratropium) 3 ml Q4H PRN HHN Shortness of Breath 08/19/17 10:30 08/24/17 10:29 Cefepime HCl 1 gm/ Sodium Chloride 55 ml @ 110 mls/hr Q12H IV 08/19/17 07:45 08/20/17 07:44 08/19/17 08:14 Cefepime HCl 500 mg/Dextrose 55 ml @ 110 mls/hr Q24H IVPB 08/19/17 22:00 08/26/17 21:59 Dextrose (Dextrose 50%) STAT PRN IV Hypoglycemia 08/19/17 12:00 09/18/17 11:59 Heparin Sodium (Porcine) (Heparin 5000 units/ml) 5,000 units EVERY 12 HOURS SUBQ 08/19/17 21:00 09/18/17 20:59 Insulin Aspart (NovoLOG) BEFORE MEALS AND HS SUBQ 08/19/17 12:30 09/18/17 12:29 Lorazepam (Ativan 2mg/ml 1ml) 2 mg Q4H PRN IV For Anxiety 08/19/17 12:00 08/26/17 11:59 Morphine Sulfate (Morphine Sulfate) 2 mg Q4H PRN IVP Moderate Pain (Pain Scale 4-6) 08/19/17 10:30 08/26/17 10:29 Morphine Sulfate (Morphine Sulfate) 4 mg Q4H PRN IVP For Pain Scale 7-10 08/19/17 12:00 08/26/17 11:59 Nitroglycerin (Ntg) 0.4 mg Q5MIN X 3 DOSES PRN SL Prn Chest Pain 08/19/17 12:00 09/18/17 11:59 Ondansetron HCl (Zofran) 4 mg Q6H PRN IVP Nausea & Vomiting 08/19/17 12:00 09/18/17 11:59 Pantoprazole (Protonix) 40 mg DAILY IV 08/20/17 09:00 09/19/17 08:59 Polyethylene Glycol (Miralax) 17 gm DAILYPRN PRN ORAL Constipation 08/19/17 10:30 09/18/17 10:29 Propofol 100 ml @ 0 mls/hr Q24H IV 08/19/17 11:00 08/21/17 10:59 08/19/17 10:35 Sodium Chloride 1,000 ml @ 100 mls/hr Q10H IVLG 08/20/17 12:00 09/19/17 11:59 Temazepam (Restoril) 15 mg HSPRN PRN ORAL Insomnia 08/19/17 12:00 08/26/17 11:59 Vancomycin HCl 1 gm/Dextrose 275 ml @ 183.3 mls/ hr Q24H IV 08/20/17 00:30 08/25/17 00:29 UNV Vancomycin HCl/ Dextrose 250 ml @ 125 mls/hr ONCE ONCE IVPB 08/19/17 12:00 08/19/17 13:59 08/19/17 12:08 Assessment/Plan Assessment/Plan Abx: IV Vanco/Cefepim 08/19- Assessment: Septic shock- r/o bacteremia, r/o PNA -CXR: Limited exam with low lung volumes. Cardiomegaly and pulmonary vascular congestion. These findings may be exaggerated by low lung volumes -u/a no pyuria -Bcx p Acute hypercapeneic/hypoxic respiratory failure s/p intubation 08/19 -influenza neg Fever/leukocytosis KASHIF with hyperkalemia- to be started on HD HTN, Asthma, DM2, morbid obesity Plan: -Continue Vancomycin #1 and switch Cefepime #1 to Meropenem pending cultures -obtain sputum cx -f/u cx -Monitor CBC/BMP, temperatures -ETT/ICU care -aspiration precautions Thank you for this consultation. Will continue to follow along with you. Discussed with LACI. Susie Kim M.D. Aug 19, 2017 12:22
[2017-08-19] MEDS: NovoLOG Insulin Flexpen SUBQ SCH ×3 (12:30→21:27)
[2017-08-19 13:00] LABS: ALBUMIN 2.6 G/DL (3.4-5.0); ALBUMIN/GLOBULIN RATIO 0.5 (1.0-2.7); ALKALINE PHOSPHATASE 87 U/L (46-116); ANION GAP 15 mmol/L (5-15); BILIRUBIN,TOTAL 0.6 MG/DL (0.2-1.0); BLOOD UREA NITROGEN 47 mg/dL (7-18); CALCIUM 8.3 MG/DL (8.5-10.1); CARBON DIOXIDE 26 MMOL/L (21-32); CHLORIDE 96 MMOL/L (98-107); CREATINE KINASE 197 U/L (26-308); CREATININE 4.1 MG/DL (0.55-1.30); PHOSPHORUS > 9.0 MG/DL (2.5-4.9); SODIUM 136 MMOL/L (136-145); TRIGLYCERIDES 99 MG/DL (30-150)
[2017-08-19 13:04] LABS: POTASSIUM 7.4 MMOL/L (3.5-5.1)
--- NOTE | 2017-08-19 13:48 | History and Physical ---
History of Present Illness General Date patient seen: Aug 19, 2017 Time patient seen: 13:48 Reason for Hospitalization: acute respiratroy failure, sepsis, KASHIF, shock liver Present Illness HPI 57y/o female with pmh of morbid obesity, HTN, asthma, DM2, GERD who presents from SNF with worsening cough and SOB. Pt was noted to have O2 sat in 70s by EMS. Per report, pt previously hospitalized at [facility] for similar symptoms. Pt was started on NRB and given breathing treatments by EMS. In ED, pt cont to be hypoxemic and hypercapnic despite BiPAP. She was eventually intubated. She was also noted to have KASHIF w/ SCr 4.2 and K in 7's, lactate 8. She was given kayexalate, fluids. She also had low-grade fevers, leukocytosis. Given vanco, cefepime, flagyl in ED. Pt also w/ shock liver w/ AST /ALT in 1000s, given mucomyst IV. Pt also had dialysis line ordered for urgent hemodialysis. Allergies: Coded Allergies: No Known Allergies (Unverified , 06/01/17) Medication History Scheduled Clonidine Hcl* (Catapres*), 0.1 MG ORAL EVERY 6 HOURS, (Reported) Docusate Sodium* (Docusil*), 100 MG ORAL TWICE A DAY, (Reported) Gabapentin* (Gabapentin*), 600 MG ORAL QHS, (Reported) Glipizide (Glipizide Xl), 10 MG ORAL DAILY, (Reported) Insulin Glargine (Lantus), 21 SUBQ BID, (Reported) Lactobacillus Acidophilus (Acidophilus), 1 EACH PO BID, (Reported) Lidocaine HCl 2% Viscous (Lidocaine HCl 2% Viscous), 15 ML ORAL QID, (Reported) Pantoprazole* (Protonix*), 40 MG ORAL DAILY, (Reported) Ranitidine Hcl* (Zantac*), 150 MG ORAL TWICE A DAY, (Reported) Sitagliptin* (Januvia*), 100 MG ORAL DAILY, (Reported) Scheduled PRN Acetaminophen* (Tylenol Extra Strength*), 500 MG ORAL Q12HR PRN for Mild Pain/ Temp > 100.5, (Reported) Albuterol Sulfate* (Albuterol Sulfate Hhn*), 3 ML INH Q4H PRN for Shortness of Breath, (Reported) Diphenoxylate Hcl/Atropine (Lomotil Tablet), 2 TAB ORAL for Diarrhea, (Reported) Ipratropium [place] 0.5MG/2.5ML (Ipratropium [place] 0.5MG/2.5ML), 0.5 MG HHN Q6H PRN for Shortness of Breath, (Reported) Prochlorperazine (Compazine*), 10 MG ORAL Q8HR PRN for Nausea & Vomiting, ( Reported) Promethazine HCl (Promethegan), 25 MG RECTAL Q6H PRN for Nausea & Vomiting, ( Reported) Miscellaneous Medications Azelastine Hcl (Azelastine Hcl), 6 ML OP, (Reported) Capsaicin (Capsaicin), 42.5 GM TP, (Reported) Cyanocobalamin (Vitamin B-12) (Vitamin B12), 2,500 MCG PO, (Reported) Fluticasone Propionate (Flonase Allergy Relief), 9.9 ML NS, (Reported) Guar Gum (Nutrisource Fiber), 1 EACH PO, (Reported) Guar Gum (Nutrisource Fiber), 205 GM PO, (Reported) Insulin Regular, Human (Humulin R), 0 SUBQ, (Reported) Loratadine (Loratadine), 10 MG PO, (Reported) Saliva Substitution Combo No.9 (Biotene), 1,000 ML MM, (Reported) Patient History History Provided By: Medical Record, EMS Healthcare decision maker Resuscitation status Advanced Directive on File Past Medical/Surgical History Past Medical/Surgical History: (1) DM2 (diabetes mellitus, type 2) (2) Asthma (3) HTN (hypertension) (4) GERD (gastroesophageal reflux disease) (5) Morbid obesity Family History Family History: Patient reports no known family medical history. Social History Social History: (1) lives at [facility] Review of Systems ROS Narrative Unable to obtain as pt intubated, sedated Physical Exam Physical Exam Narrative General: intubated, sedated, morbid obesity Head: normocephalic, without obvious abnormality, atraumatic Eyes: conjunctivae/corneas clear. PERRL, EOM's intact Throat: lips, mucosa, and tongue normal. MMM Neck: supple, symmetrical, trachea midline, and no JVD Lungs: clear to auscultation bilaterally Heart: regular rate and rhythm, S1, S2 normal, no murmur, click, rub or gallop Abdomen: soft, non-tender, non-distended, bowel sounds normal Extremities: extremities normal, atraumatic, no cyanosis or edema Pulses: 2+ and symmetric Skin: skin color, texture, turgor normal; no rashes or lesions Neurologic: sedated Last 24 Hour Vital Signs Date Time Temp Pulse Resp B/P (MAP) Pulse Ox O2 Delivery O2 Flow Rate FiO2 08/19/17 13:14 100.1 86 18 100/56 91 Endotracheal Tube 15.0 100 08/19/17 12:52 72 18 100 08/19/17 12:35 17 08/19/17 12:20 18 08/19/17 12:18 70 21 123/92 97 Endotracheal Tube 100 08/19/17 11:45 70 18 95/53 98 Endotracheal Tube 100 08/19/17 11:30 70 18 89/54 97 Endotracheal Tube 100 08/19/17 11:17 71 22 55/26 100 Endotracheal Tube 100 08/19/17 11:17 18 08/19/17 11:05 16 08/19/17 10:50 19 08/19/17 10:35 70 18 100 08/19/17 10:35 73 22 152/78 100 Bi-pap 35 08/19/17 10:35 22 08/19/17 10:00 67 23 115/64 90 Bi-pap 35 08/19/17 09:33 65 20 114/49 92 Bi-pap 35 08/19/17 09:00 35 08/19/17 08:50 65 26 90 Facial 35 08/19/17 08:45 30 08/19/17 08:30 66 26 94/63 100 Non-Rebreather 15.0 08/19/17 07:39 40 08/19/17 07:37 40 08/19/17 07:34 69 16 Non-Rebreather 15.0 08/19/17 07:34 100.1 69 16 107/55 100 Non-Rebreather 15.0 08/19/17 07:30 60 26 100 Facial 40 08/19/17 07:16 70 20 100/64 100 Nasal Cannula 6.0 Laboratory Tests Test 08/19/17 07:50 08/19/17 08:45 08/19/17 09:00 08/19/17 09:55 White Blood Count 16.6 K/UL (4.8-10.8) H Red Blood Count 5.29 M/UL (4.20-5.40) Hemoglobin 11.7 G/DL (12.0-16.0) L Hematocrit 44.4 % (37.0-47.0) Mean Corpuscular Volume 84 FL (80-99) Mean Corpuscular Hemoglobin 22.1 PG (27.0-31.0) L Mean Corpuscular Hemoglobin Concent 26.3 G/DL (32.0-36.0) L Red Cell Distribution Width 18.6 % (11.6-14.8) H Platelet Count 319 K/UL (150-450) Mean Platelet Volume 6.4 FL (6.5-10.1) L Neutrophils (%) (Auto) % (45.0-75.0) Lymphocytes (%) (Auto) % (20.0-45.0) Monocytes (%) (Auto) % (1.0-10.0) Eosinophils (%) (Auto) % (0.0-3.0) Basophils (%) (Auto) % (0.0-2.0) Differential Total Cells Counted 100 Neutrophils % (Manual) 85 % (45-75) H Lymphocytes % (Manual) 6 % (20-45) L Monocytes % (Manual) 9 % (1-10) Eosinophils % (Manual) 0 % (0-3) Basophils % (Manual) 0 % (0-2) Band Neutrophils 0 % (0-8) Platelet Estimate Adequate Platelet Morphology Normal Hypochromasia 2+ Microcytosis 1+ Sodium Level 131 MMOL/L (136-145) L Potassium Level 8.0 MMOL/L (3.5-5.1) *H 7.8 MMOL/L (3.5-5.1) *H Chloride Level 93 MMOL/L (98-107) L Carbon Dioxide Level 26 MMOL/L (21-32) Anion Gap 11 mmol/L (5-15) Blood Urea Nitrogen 44 mg/dL (7-18) H Creatinine 4.2 MG/DL (0.55-1.30) H Estimat Glomerular Filtration Rate 13.1 mL/min (>60) Glucose Level 226 MG/DL (74-106) H Lactic Acid Level 8.10 mmol/L (0.66-2.22) H 6.90 mmol/L (0.66-2.22) H Calcium Level 8.9 MG/DL (8.5-10.1) Total Bilirubin 0.8 MG/DL (0.2-1.0) Aspartate Amino Transf (AST/SGOT) 9288 U/L (15-37) H Alanine Aminotransferase (ALT/SGPT) 4438 U/L (12-78) H Alkaline Phosphatase 101 U/L (46-116) Total Creatine Kinase 183 U/L (26-308) Creatine Kinase MB 3.1 NG/ML (0.0-3.6) Creatine Kinase MB Relative Index 1.6 Troponin I 0.461 ng/mL (0.000-0.056) Pro-B-Type Natriuretic Peptide 73520 pg/mL (0-125) H Total Protein 9.0 G/DL (6.4-8.2) H Albumin 3.0 G/DL (3.4-5.0) L Globulin 6.0 g/dL Albumin/Globulin Ratio 0.5 (1.0-2.7) L Urine Color Yellow Urine Appearance Slightly cloudy Urine pH 5 (4.5-8.0) Urine Specific [place] 1.025 (1.005-1.035) Urine Protein 3+ (NEGATIVE) H Urine Glucose (UA) Negative (NEGATIVE) Urine Ketones 1+ (NEGATIVE) H Urine Occult Blood 3+ (NEGATIVE) H Urine Nitrite Negative (NEGATIVE) Urine Bilirubin 1+ (NEGATIVE) H Urine Ictotest Negative Urine Urobilinogen 4 MG/DL (0.0-1.0) H Urine Leukocyte Esterase 1+ (NEGATIVE) H Urine RBC 2-4 /HPF (0 - 2) H Urine WBC 2-4 /HPF (0 - 2) Urine Squamous Epithelial Cells Few /LPF (NONE/OCC) Urine Amorphous Sediment Few /LPF (NONE) H Urine Bacteria Few /HPF (NONE) Arterial Blood pH 7.020 (7.350-7.450) 7.061 (7.350-7.450) Arterial Blood Partial Pressure CO2 96.7 mmHg (35.0-45.0) *H 113.3 mmHg (35.0-45.0) *H Arterial Blood Partial Pressure O2 84.0 mmHg (75.0-100.0) 72.9 mmHg (75.0-100.0) L Arterial Blood HCO3 24.4 mmol/L (22.0-26.0) 31.4 mmol/L (22.0-26.0) H Arterial Blood Oxygen Saturation 90.2 % (92.0-98.0) L 88.9 % (92.0-98.0) L Arterial Blood Base Excess -8.1 -1.4 Doroteo Test Positive Positive Acetaminophen Level < 2 MCG/ML (10-30) L Test 08/19/17 11:00 08/19/17 12:15 Prothrombin Time 14.5 SEC (9.30-11.50) H Prothromb Time International Ratio 1.4 (0.9-1.1) H Activated Partial Thromboplast Time 26 SEC (23-33) Sodium Level 136 MMOL/L (136-145) Potassium Level 7.4 MMOL/L (3.5-5.1) *H Chloride Level 96 MMOL/L (98-107) L Carbon Dioxide Level 26 MMOL/L (21-32) Anion Gap 15 mmol/L (5-15) Blood Urea Nitrogen 47 mg/dL (7-18) H Creatinine 4.1 MG/DL (0.55-1.30) H Estimat Glomerular Filtration Rate 13.5 mL/min (>60) Glucose Level 259 MG/DL (74-106) H Osmolality 327 mOsm/kg (297-317) H Uric Acid 9.7 MG/DL (2.6-7.2) H Calcium Level 8.3 MG/DL (8.5-10.1) L Phosphorus Level > 9.0 MG/DL (2.5-4.9) H Magnesium Level 1.9 MG/DL (1.8-2.4) Total Bilirubin 0.6 MG/DL (0.2-1.0) Aspartate Amino Transf (AST/SGOT) Pending Alanine Aminotransferase (ALT/SGPT) Pending Alkaline Phosphatase 87 U/L (46-116) Total Creatine Kinase 197 U/L (26-308) Total Protein 8.1 G/DL (6.4-8.2) Albumin 2.6 G/DL (3.4-5.0) L Globulin 5.5 g/dL Albumin/Globulin Ratio 0.5 (1.0-2.7) L Triglycerides Level 99 MG/DL (30-150) Free Thyroxine 1.13 NG/DL (0.76-1.46) Arterial Blood pH 7.070 (7.350-7.450) Arterial Blood Partial Pressure CO2 84.4 mmHg (35.0-45.0) *H Arterial Blood Partial Pressure O2 143.5 mmHg (75.0-100.0) H Arterial Blood HCO3 23.9 mmol/L (22.0-26.0) Arterial Blood Oxygen Saturation 97.7 % (92.0-98.0) Arterial Blood Base Excess -7.4 Doroteo Test Positive Microbiology Date/Time Source Procedure Growth Status 08/19/17 08:45 Nasal Nares Influenza Types A,B Antigen (ZECHARIAH) - Final Complete Height (Feet): 5 Height (Inches): 4.00 Weight (Pounds): 350 Medications Current Medications Medications (Trade) Dose Ordered Sig/Felipe Route PRN Reason Start Time Stop Time Status Last Admin Dose Admin Acetaminophen (Tylenol) 650 mg Q4H PRN ORAL fever (temp>100.5F) 08/19/17 10:30 09/18/17 10:29 Acetylcysteine 25908 mg/Dextrose 1,050 ml @ 62.5 mls/hr ONCE ONCE IVPB 08/19/17 09:15 08/20/17 02:02 Albuterol/ Ipratropium (Albuterol/ Ipratropium) 3 ml Q4H PRN HHN Shortness of Breath 08/19/17 10:30 08/24/17 10:29 Cefepime HCl 1 gm/ Sodium Chloride 55 ml @ 110 mls/hr Q12H IV 08/19/17 07:45 08/20/17 07:44 08/19/17 08:14 Cefepime HCl 500 mg/Dextrose 55 ml @ 110 mls/hr Q24H IVPB 08/19/17 22:00 08/26/17 21:59 Dextrose (Dextrose 50%) STAT PRN IV Hypoglycemia 08/19/17 12:00 09/18/17 11:59 Heparin Sodium (Porcine) (Heparin 5000 units/ml) 5,000 units EVERY 12 HOURS SUBQ 08/19/17 21:00 09/18/17 20:59 Insulin Aspart (NovoLOG) BEFORE MEALS AND HS SUBQ 08/19/17 12:30 09/18/17 12:29 Lorazepam (Ativan 2mg/ml 1ml) 2 mg Q4H PRN IV For Anxiety 08/19/17 12:00 08/26/17 11:59 Morphine Sulfate (Morphine Sulfate) 2 mg Q4H PRN IVP Moderate Pain (Pain Scale 4-6) 08/19/17 10:30 08/26/17 10:29 Morphine Sulfate (Morphine Sulfate) 4 mg Q4H PRN IVP For Pain Scale 7-10 08/19/17 12:00 08/26/17 11:59 Nitroglycerin (Ntg) 0.4 mg Q5MIN X 3 DOSES PRN SL Prn Chest Pain 08/19/17 12:00 09/18/17 11:59 Ondansetron HCl (Zofran) 4 mg Q6H PRN IVP Nausea & Vomiting 08/19/17 12:00 09/18/17 11:59 Pantoprazole (Protonix) 40 mg DAILY IV 08/20/17 09:00 09/19/17 08:59 Polyethylene Glycol (Miralax) 17 gm DAILYPRN PRN ORAL Constipation 08/19/17 10:30 09/18/17 10:29 Propofol 100 ml @ 0 mls/hr Q24H IV 08/19/17 11:00 08/21/17 10:59 08/19/17 12:20 Sodium Chloride 1,000 ml @ 100 mls/hr Q10H IVLG 08/20/17 12:00 09/19/17 11:59 08/19/17 12:49 Temazepam (Restoril) 15 mg HSPRN PRN ORAL Insomnia 08/19/17 12:00 08/26/17 11:59 Vancomycin HCl (Vanco rx to dose) 1 ea DAILYPRN PRN MISC RX TO DOSE PROTOCL 08/19/17 13:00 09/18/17 12:59 Vancomycin HCl/ Dextrose 250 ml @ 125 mls/hr ONCE ONCE IVPB 08/19/17 12:00 08/19/17 13:59 08/19/17 12:08 Assessment/Plan Problem List: (1) Acute respiratory failure with hypoxia and hypercapnia ICD Codes: J96.01 - Acute respiratory failure with hypoxia; J96.02 - Acute respiratory failure with hypercapnia SNOMED: 56566647, 66181106, 949915069 (2) Septic shock ICD Codes: A41.9 - Sepsis, unspecified organism; R65.21 - Severe sepsis with septic shock SNOMED: 53820118 (3) KASHIF (acute kidney injury) ICD Codes: N17.9 - Acute kidney failure, unspecified SNOMED: 39121174 (4) Lactic acid acidosis ICD Codes: E87.2 - Acidosis SNOMED: 64971124 (5) Hyperkalemia ICD Codes: E87.5 - Hyperkalemia; J96.02 - Acute respiratory failure with hypercapnia SNOMED: 58632191, 27186680, 978428688 (6) Acute toxic metabolic encephalopathy (7) Shock liver ICD Codes: K72.00 - Acute and subacute hepatic failure without coma SNOMED: 095656691 (8) Non-STEMI (non-ST elevated myocardial infarction) ICD Codes: I21.4 - Non-ST elevation (NSTEMI) myocardial infarction; J96.02 - Acute respiratory failure with hypercapnia SNOMED: 784865977, 81615805, 584581152 (9) DM2 (diabetes mellitus, type 2) ICD Codes: E11.9 - Type 2 diabetes mellitus without complications SNOMED: 30912653 (10) Asthma ICD Codes: J45.909 - Unspecified asthma, uncomplicated SNOMED: 899467497 (11) GERD (gastroesophageal reflux disease) ICD Codes: K21.9 - Gastro-esophageal reflux disease without esophagitis SNOMED: 239318749 Status: stable, not improved Assessment/Plan Admit to ICU Pulmonology, Nephrology, GI, ID, Cardiology consulted Empiric vanco and meropenem per ID (08/19-) F/u cultures Cont on vent and wean as tolerated Daily SBTs, sedation holiday Cont pressors to maintain MAP 65 and above Trend trop/EKG ASA, statin Check ECHO Dialysis line to be placed for urgent HD per renal Trend BMP closely Cont mucomyst IV for shock liver/hepatitis per GI Trend LFTs Place NGT for feeds PPI Pain control, supportive care, bowel regimen Attempt to contact family for GOC discussion DVT Prophylaxis: HSQ Code Status: Full Hospital Classification Declaration: Based on this initial evaluation, and depending on the patient's clinical course, I anticipate that this patient will require hospitalization for 4-5 days for acute respiratory failure, septic shock and close respiratory/hemodynamic monitoring. At the time of my involvement, the patient's condition was critical with high potential for and/or physiologic deterioration secondary to acute respiratory failure, septic shock, shock liver, KASHIF as delineated in the note above. On the above date of service, I spent a total of 55 minutes in the ICU evaluating, managing, and providing critical care services to this patient, including time spent documenting these activities, counseling patient/family, and coordinating care. Critical care services performed include: Telemetry Review Hemodynamic measurement interpretation Laboratory data review and interpretation Ventilator setting review, management, and adjustment Discussion of care plans with patient, family, and/or surrogate decision makers Discussion of patient's care with primary medical team, surgical team, and/or consulting service Decision to obtain further radiologic evaluation, after consideration of risk/ benefit ratio Decision to perform invasive procedure, after consideration of risk/benefit ratio Review of most recent microbiology results with assessment and modification of antimicrobial coverage Discussion of patient's code status and further advancement towards the ultimate goals of care Plan outlined above discussed with patient/family, REGISTERED DIETITIAN, ICU team, and involved physicians/consultants. Time of note may not reflect time of encounter. Cassie Bolivar M.D. Aug 19, 2017 13:48
[2017-08-19 14:08] LABS: ALANINE AMINOTRANSFERASE 6658 U/L (12-78); ASPARTATE AMINO TRANSFERASE > 10000 U/L (15-37)
--- NOTE | 2017-08-19 14:52 | GI Initial Consult Note ---
History of Present Illness General Date patient seen: Aug 19, 2017 Time patient seen: 11:00 Reason for Hospitalization: Upper Respiratory Illness Referring physician: JENNIE COPELAND Reason for Consultation: TRANSAMINITIS Present Illness HPI Patient is a 57-year-old female brought in by EMS after increased cough and difficulty breathing. The patient was noted to have a low oxygen saturation in a 70s. The patient had previously been hospitalized for similar symptoms most recently [facility]. patient prior history of morbid obesity. The patient was started on nonrebreather by EMS and given breathing treatments. GI consulted for transaminitis. HPI noted above. ROS limited, patient unable to provide any history at this time. Pt seen in ED on Bipap. Labs reviewed shows elevated trop levels, elevated lactic acid, transaminitis, leukocytosis and anemia. US performed pending. Unknown history of endoscopic / coloscopies. Now in ICU intubated. Home Meds Reported Medications Ranitidine Hcl* (ZANTAC*) 150 Mg Tablet, 150 MG ORAL TWICE A DAY, TAB 08/19/17 Cyanocobalamin (Vitamin B-12) (Vitamin B12) 2,500 Mcg Tablet, 2500 MCG PO, TAB 08/19/17 Pantoprazole* (PROTONIX*) 40 Mg Tablet.dr, 40 MG ORAL DAILY, TAB 08/19/17 Promethazine HCl (Promethegan) 25 Mg Supp.rect, 25 MG RECTAL Q6H Y for Nausea & Vomiting, SUPP 08/19/17 Guar Gum (NUTRISOURCE FIBER) 205 Gm Powder, 205 GM PO, GM 08/19/17 Guar Gum (NUTRISOURCE FIBER) 1 Each Packet, 1 EACH PO, PACKET 08/19/17 Loratadine (LORATADINE) 10 Mg Capsule, 10 MG PO, CAP 08/19/17 Diphenoxylate Hcl/Atropine (LOMOTIL TABLET) 1 Each Tablet, 2 TAB ORAL Y for Diarrhea, #30 TAB 0 Refills 08/19/17 Lidocaine HCl 2% Viscous (Lidocaine HCl 2% Viscous) 100 Ml Solution, 15 ML ORAL QID, ML 08/19/17 Insulin Glargine (LANTUS) 100 Unit/1 Ml Insuln.pen, 21 SUBQ BID, #1 EA 0 Refills 08/19/17 Lactobacillus Acidophilus (ACIDOPHILUS) 1 Each Capsule, 1 EACH PO BID, CAP 08/19/17 Sitagliptin* (JANUVIA*) 25 Mg Tablet, 100 MG ORAL DAILY, TAB 08/19/17 Ipratropium [place] 0.5MG/2.5ML (IPRATROPIUM BROMIDE 0.5MG/2.5ML) 0.2 Mg/1 Ml Solution, 0.5 MG HHN Q6H Y for Shortness of Breath, #28 EA 08/19/17 Insulin Regular, Human (HUMULIN R) 100 Unit/1 Ml Vial, 0 SUBQ, VIAL 08/19/17 Glipizide (GLIPIZIDE XL) 10 Mg Tab.er.24, 10 MG ORAL DAILY, #30 TAB 0 Refills 08/19/17 Gabapentin* (GABAPENTIN*) 600 Mg Tablet, 600 MG ORAL QHS, TAB 08/19/17 Fluticasone Propionate (Flonase Allergy Relief) 9.9 Ml [place].susp, 9.9 ML NS 08/19/17 Docusate Sodium* (DOCUSIL*) 100 Mg Capsule, 100 MG ORAL TWICE A DAY, CAP 08/19/17 Prochlorperazine (COMPAZINE*) 10 Mg Tablet, 10 MG ORAL Q8HR Y for Nausea & Vomiting, TAB 08/19/17 Clonidine Hcl* (CATAPRES*) 0.1 Mg Tablet, 0.1 MG ORAL EVERY 6 HOURS, TAB 08/19/17 Capsaicin (CAPSAICIN) 42.5 Gm Cream..g., 42.5 GM TP, GM 08/19/17 Saliva Substitution Combo No.9 (Biotene) 1,000 Ml Mouthwash, 1000 ML MM, ML 08/19/17 Azelastine Hcl (AZELASTINE HCL) 6 Ml Drops, 6 ML OP, ML 08/19/17 Albuterol Sulfate* (ALBUTEROL SULFATE HHN*) 2.5 Mg/3 Ml Vial.neb, 3 ML INH Q4H Y for Shortness of Breath, EA 08/19/17 Acetaminophen* (TYLENOL EXTRA STRENGTH*) 500 Mg Tablet, 500 MG ORAL Q12HR Y for Mild Pain/Temp > 100.5, TAB 0 Refills 08/19/17 Med list reviewed/reconciled: Yes Allergies: Coded Allergies: No Known Allergies (Unverified , 06/01/17) Patient History PMH Narrative Hx Hypertension: Yes Hx Asthma: Yes Hx Diabetes: Yes Hx Gastrointestinal Problems: Yes Review of Systems All Other Systems: limited Physical Exam Vital Signs Date Time Temp Pulse Resp B/P (MAP) Pulse Ox O2 Delivery O2 Flow Rate FiO2 08/19/17 07:16 70 20 100/64 100 Nasal Cannula 6.0 08/19/17 07:30 40 08/19/17 07:34 100.1 Sp02 EP Interpretation: reviewed Labs Laboratory Tests Test 08/19/17 07:50 08/19/17 08:45 08/19/17 09:00 08/19/17 09:55 White Blood Count 16.6 K/UL (4.8-10.8) H Red Blood Count 5.29 M/UL (4.20-5.40) Hemoglobin 11.7 G/DL (12.0-16.0) L Hematocrit 44.4 % (37.0-47.0) Mean Corpuscular Volume 84 FL (80-99) Mean Corpuscular Hemoglobin 22.1 PG (27.0-31.0) L Mean Corpuscular Hemoglobin Concent 26.3 G/DL (32.0-36.0) L Red Cell Distribution Width 18.6 % (11.6-14.8) H Platelet Count 319 K/UL (150-450) Mean Platelet Volume 6.4 FL (6.5-10.1) L Neutrophils (%) (Auto) % (45.0-75.0) Lymphocytes (%) (Auto) % (20.0-45.0) Monocytes (%) (Auto) % (1.0-10.0) Eosinophils (%) (Auto) % (0.0-3.0) Basophils (%) (Auto) % (0.0-2.0) Differential Total Cells Counted 100 Neutrophils % (Manual) 85 % (45-75) H Lymphocytes % (Manual) 6 % (20-45) L Monocytes % (Manual) 9 % (1-10) Eosinophils % (Manual) 0 % (0-3) Basophils % (Manual) 0 % (0-2) Band Neutrophils 0 % (0-8) Platelet Estimate Adequate Platelet Morphology Normal Hypochromasia 2+ Microcytosis 1+ Sodium Level 131 MMOL/L (136-145) L Potassium Level 8.0 MMOL/L (3.5-5.1) *H 7.8 MMOL/L (3.5-5.1) *H Chloride Level 93 MMOL/L (98-107) L Carbon Dioxide Level 26 MMOL/L (21-32) Anion Gap 11 mmol/L (5-15) Blood Urea Nitrogen 44 mg/dL (7-18) H Creatinine 4.2 MG/DL (0.55-1.30) H Estimat Glomerular Filtration Rate 13.1 mL/min (>60) Glucose Level 226 MG/DL (74-106) H Lactic Acid Level 8.10 mmol/L (0.66-2.22) H 6.90 mmol/L (0.66-2.22) H Calcium Level 8.9 MG/DL (8.5-10.1) Total Bilirubin 0.8 MG/DL (0.2-1.0) Aspartate Amino Transf (AST/SGOT) 9288 U/L (15-37) H Alanine Aminotransferase (ALT/SGPT) 4438 U/L (12-78) H Alkaline Phosphatase 101 U/L (46-116) Total Creatine Kinase 183 U/L (26-308) Creatine Kinase MB 3.1 NG/ML (0.0-3.6) Creatine Kinase MB Relative Index 1.6 Troponin I 0.461 ng/mL (0.000-0.056) Pro-B-Type Natriuretic Peptide 72103 pg/mL (0-125) H Total Protein 9.0 G/DL (6.4-8.2) H Albumin 3.0 G/DL (3.4-5.0) L Globulin 6.0 g/dL Albumin/Globulin Ratio 0.5 (1.0-2.7) L Urine Color Yellow Urine Appearance Slightly cloudy Urine pH 5 (4.5-8.0) Urine Specific [place] 1.025 (1.005-1.035) Urine Protein 3+ (NEGATIVE) H Urine Glucose (UA) Negative (NEGATIVE) Urine Ketones 1+ (NEGATIVE) H Urine Occult Blood 3+ (NEGATIVE) H Urine Nitrite Negative (NEGATIVE) Urine Bilirubin 1+ (NEGATIVE) H Urine Ictotest Negative Urine Urobilinogen 4 MG/DL (0.0-1.0) H Urine Leukocyte Esterase 1+ (NEGATIVE) H Urine RBC 2-4 /HPF (0 - 2) H Urine WBC 2-4 /HPF (0 - 2) Urine Squamous Epithelial Cells Few /LPF (NONE/OCC) Urine Amorphous Sediment Few /LPF (NONE) H Urine Bacteria Few /HPF (NONE) Arterial Blood pH 7.020 (7.350-7.450) 7.061 (7.350-7.450) Arterial Blood Partial Pressure CO2 96.7 mmHg (35.0-45.0) *H 113.3 mmHg (35.0-45.0) *H Arterial Blood Partial Pressure O2 84.0 mmHg (75.0-100.0) 72.9 mmHg (75.0-100.0) L Arterial Blood HCO3 24.4 mmol/L (22.0-26.0) 31.4 mmol/L (22.0-26.0) H Arterial Blood Oxygen Saturation 90.2 % (92.0-98.0) L 88.9 % (92.0-98.0) L Arterial Blood Base Excess -8.1 -1.4 Doroteo Test Positive Positive Acetaminophen Level < 2 MCG/ML (10-30) L Test 08/19/17 11:00 08/19/17 12:15 Prothrombin Time 14.5 SEC (9.30-11.50) H Prothromb Time International Ratio 1.4 (0.9-1.1) H Activated Partial Thromboplast Time 26 SEC (23-33) Sodium Level 136 MMOL/L (136-145) Potassium Level 7.4 MMOL/L (3.5-5.1) *H Chloride Level 96 MMOL/L (98-107) L Carbon Dioxide Level 26 MMOL/L (21-32) Anion Gap 15 mmol/L (5-15) Blood Urea Nitrogen 47 mg/dL (7-18) H Creatinine 4.1 MG/DL (0.55-1.30) H Estimat Glomerular Filtration Rate 13.5 mL/min (>60) Glucose Level 259 MG/DL (74-106) H Osmolality 327 mOsm/kg (297-317) H Uric Acid 9.7 MG/DL (2.6-7.2) H Calcium Level 8.3 MG/DL (8.5-10.1) L Phosphorus Level > 9.0 MG/DL (2.5-4.9) H Magnesium Level 1.9 MG/DL (1.8-2.4) Total Bilirubin 0.6 MG/DL (0.2-1.0) Aspartate Amino Transf (AST/SGOT) > 45602 U/L (15-37) H Alanine Aminotransferase (ALT/SGPT) 6658 U/L (12-78) H Alkaline Phosphatase 87 U/L (46-116) Total Creatine Kinase 197 U/L (26-308) Total Protein 8.1 G/DL (6.4-8.2) Albumin 2.6 G/DL (3.4-5.0) L Globulin 5.5 g/dL Albumin/Globulin Ratio 0.5 (1.0-2.7) L Triglycerides Level 99 MG/DL (30-150) Free Thyroxine 1.13 NG/DL (0.76-1.46) Arterial Blood pH 7.070 (7.350-7.450) Arterial Blood Partial Pressure CO2 84.4 mmHg (35.0-45.0) *H Arterial Blood Partial Pressure O2 143.5 mmHg (75.0-100.0) H Arterial Blood HCO3 23.9 mmol/L (22.0-26.0) Arterial Blood Oxygen Saturation 97.7 % (92.0-98.0) Arterial Blood Base Excess -7.4 Doroteo Test Positive General Appearance: mild distress, other - morbidly obese Neck: supple Respiratory: other - ET Gastrointestinal: normal inspection, non tender, soft Rectal: deferred Skin: normal inspection, normal color, no rash, warm/dry Lymphatic: normal inspection, no adenopathy Current Medications Current Medications Medications (Trade) Dose Ordered Sig/Felipe Route PRN Reason Start Time Stop Time Status Last Admin Dose Admin Acetaminophen (Tylenol) 650 mg Q4H PRN ORAL fever (temp>100.5F) 08/19/17 10:30 09/18/17 10:29 Acetylcysteine 00716 mg/Dextrose 1,050 ml @ 62.5 mls/hr ONCE ONCE IVPB 08/19/17 09:15 08/20/17 02:02 Albuterol/ Ipratropium (Albuterol/ Ipratropium) 3 ml Q4H PRN HHN Shortness of Breath 08/19/17 10:30 08/24/17 10:29 Dextrose (Dextrose 50%) STAT PRN IV Hypoglycemia 08/19/17 12:00 09/18/17 11:59 Heparin Sodium (Porcine) (Heparin 5000 units/ml) 5,000 units EVERY 12 HOURS SUBQ 08/19/17 21:00 09/18/17 20:59 Insulin Aspart (NovoLOG) BEFORE MEALS AND HS SUBQ 08/19/17 12:30 09/18/17 12:29 Lorazepam (Ativan 2mg/ml 1ml) 2 mg Q4H PRN IV For Anxiety 08/19/17 12:00 08/26/17 11:59 Meropenem 500 mg/ Sodium Chloride 55 ml @ 110 mls/hr Q24H IVPB 08/19/17 16:00 08/24/17 15:59 Morphine Sulfate (Morphine Sulfate) 2 mg Q4H PRN IVP Moderate Pain (Pain Scale 4-6) 08/19/17 10:30 08/26/17 10:29 Morphine Sulfate (Morphine Sulfate) 4 mg Q4H PRN IVP For Pain Scale 7-10 08/19/17 12:00 08/26/17 11:59 Nitroglycerin (Ntg) 0.4 mg Q5MIN X 3 DOSES PRN SL Prn Chest Pain 08/19/17 12:00 09/18/17 11:59 Norepinephrine Bitartrate 4 mg/ Dextrose 250 ml @ 0 mls/hr Q24H IV 08/19/17 14:00 09/18/17 13:59 Ondansetron HCl (Zofran) 4 mg Q6H PRN IVP Nausea & Vomiting 08/19/17 12:00 09/18/17 11:59 Pantoprazole (Protonix) 40 mg DAILY IV 08/20/17 09:00 09/19/17 08:59 Polyethylene Glycol (Miralax) 17 gm DAILYPRN PRN ORAL Constipation 08/19/17 10:30 09/18/17 10:29 Propofol 100 ml @ 0 mls/hr Q24H IV 08/19/17 11:00 08/21/17 10:59 08/19/17 12:20 Sodium Chloride 1,000 ml @ 100 mls/hr Q10H IVLG 08/20/17 12:00 09/19/17 11:59 08/19/17 12:49 Temazepam (Restoril) 15 mg HSPRN PRN ORAL Insomnia 08/19/17 12:00 08/26/17 11:59 Vancomycin HCl (Vanco rx to dose) 1 ea DAILYPRN PRN MISC RX TO DOSE PROTOCL 08/19/17 13:00 09/18/17 12:59 GI: Plan Problems: (1) Transaminitis (2) Shock liver (3) Anemia (4) Morbid obesity (5) Multiple organ failure Plan defer GI procedures at this time insert NGT with imaging confirmation mucomyst given in ED transaminitis due to shock liver >> trend anemia work up OB stool r/o GI bleed monitor H&H, prn transfusions ppi abx fu labs pt for HD today Discussed with Dr. Cordero. Thank you for this patient referral, we will follow. Caren Nixon N.P. Aug 19, 2017 14:52
--- NOTE | 2017-08-19 15:23 | Pre-Procedure Note/Attestation ---
Pre-Procedure Note/Attestation Complete Prior to Procedure Planned Procedure: not applicable Indications for Procedure Pre-Operative Diagnosis: needing access for emergent dialysis. Attestation Called for emergent placement of non-tunneled dialysis catheter. Patient had signed consent for procedure in the ED. Patient then had to be intubated, transferred to ICU in critical condition. Procedure performed emergently at the bedside. I attest that I re-evaluated the patient just prior to the surgery and that there has been no change in the patient's H&P, except as documented below: Sourav Falcon M.D. Aug 19, 2017 15:23
--- NOTE | 2017-08-19 15:24 | Diagnostic Imaging Report ---
Indication: Reason For Exam: RENAL-A Technique: The patient signed informed consent wall in the emergency department. Patient decompensated and was moved to the ICU and procedure to be performed emergently at the bedside. Procedural timeout performed. Total sterile technique, including sterile probe cover and sterile gel, sterile gloves, hand hygiene, hat, mask, sterile gown, large sterile drape, and preparation with 2% chlorhexidine utilized. Local anesthesia with 1% lidocaine. Under real-time ultrasound guidance, puncture right internal jugular vein using 18-gauge needle, passage 0.035 guidewire, over which was passed serial dilators and then a 13 [place] 15 cm triple-lumen temporary dialysis catheter. Guidewire was removed. Catheter ports were aspirated and flushed. The catheter was fixed to the skin. Patient tolerated procedure well. A chest x-ray was obtained, documents catheter tip position at the cavoatrial junction. Comparison: Chest radiograph earlier the same day. Findings: Right internal jugular vein approach nontunneled dialysis catheter has its tip in the region of the SVC. ET tube tip above the lucía. NG tube has been placed in the interim and courses below level of the diaphragms, tip outside the inferior margin of the film. Heart is enlarged but stable in size. Interstitial edema/opacification with development of bilateral airspace opacities thought to be related to pulmonary edema. No pneumothorax. Impression: Successful bedside placement of right transjugular temporary dialysis catheter, as described. Catheter cleared for immediate use. Interval placement of NG tube. Tube courses below level of diaphragms, tip beyond inferior margin of the film. Interval worsening of aeration with a dominant bilateral patchy airspace opacities thought to be related to pulmonary edema. Superimposed pneumonia should be excluded clinically.
--- NOTE | 2017-08-19 15:26 | Operative Note - PDOC ---
Operative Note Operative Note Date of Operation/Procedure: Aug 19, 2017 Pre-op Diagnosis: needing access for emergent dialysis. Procedure: non-tunneled HD catheter placement Post-op Diagnosis: same Post-op Diagnosis: same as pre-op Anesthesia: local Specimen: none Complications: none Condition: unstable Estimated Blood Loss: minimal Drains: none Implant(s) used?: Yes Indications for Procedure needing emergent HD Description of Procedure Procedure performed at bedside in ICU. Patient was intubated with systolic BP in the 50s. Called patient's RN who said she was starting the patient on pressors. Non-tunneled HD cath was easily placed into right IJ. CXR shows appropriate catheter location. Catheter cleared for immediate use. Sourav Falcon M.D. Aug 19, 2017 15:26
--- NOTE | 2017-08-19 15:39 | Diagnostic Imaging Report ---
Indication: NG tube placement Technique: XRAY Abdomen 1v Comparison: None Findings: NG tube tip in the distal stomach. ET tube and dialysis catheter partially visualized. Heart is enlarged. Interstitial and bilateral patchy airspace opacities. Impression: NG tube tip in the distal stomach.
[2017-08-19] MEDS: Meropenem 500 MG in NS 55 ML IVPB SCH (16:09)
[2017-08-19] MEDS ORDERED: Etomidate 40mg/20ml Inj IV ONE (16:24)
--- NOTE | 2017-08-19 17:28 | Cardiac Electrophysiology PN ---
Subjective Subjective [id number]. Objective Last 24 Hour Vital Signs Date Time Temp Pulse Resp B/P (MAP) Pulse Ox O2 Delivery O2 Flow Rate FiO2 08/19/17 17:10 85 20 100 08/19/17 16:08 47/14 08/19/17 16:00 100 08/19/17 16:00 98.1 77 20 47/14 90 Endotracheal Tube 100 08/19/17 15:29 75 20 100 08/19/17 15:00 70 21 114/51 97 Endotracheal Tube 100 08/19/17 14:00 78 08/19/17 14:00 78 21 58/32 97 Endotracheal Tube 100 08/19/17 14:00 100 08/19/17 13:14 100.1 86 18 100/56 91 Endotracheal Tube 15.0 100 08/19/17 13:00 70 21 65/47 97 Endotracheal Tube 100 08/19/17 12:52 72 18 100 08/19/17 12:35 17 08/19/17 12:20 18 08/19/17 12:18 70 21 123/92 97 Endotracheal Tube 100 08/19/17 11:45 70 18 95/53 98 Endotracheal Tube 100 08/19/17 11:30 97.9 08/19/17 11:30 70 18 89/54 97 Endotracheal Tube 100 08/19/17 11:17 71 22 55/26 100 Endotracheal Tube 100 08/19/17 11:17 18 08/19/17 11:05 16 08/19/17 10:50 19 08/19/17 10:35 70 18 100 08/19/17 10:35 73 22 152/78 100 Bi-pap 35 08/19/17 10:35 22 08/19/17 10:00 67 23 115/64 90 Bi-pap 35 08/19/17 09:33 65 20 114/49 92 Bi-pap 35 08/19/17 09:00 35 08/19/17 08:50 65 26 90 Facial 35 08/19/17 08:45 30 08/19/17 08:30 66 26 94/63 100 Non-Rebreather 15.0 08/19/17 07:39 40 08/19/17 07:37 40 08/19/17 07:34 69 16 Non-Rebreather 15.0 08/19/17 07:34 100.1 69 16 107/55 100 Non-Rebreather 15.0 08/19/17 07:30 60 26 100 Facial 40 08/19/17 07:16 70 20 100/64 100 Nasal Cannula 6.0 Laboratory Tests Test 08/19/17 07:50 08/19/17 08:45 08/19/17 09:00 08/19/17 09:55 White Blood Count 16.6 K/UL (4.8-10.8) H Red Blood Count 5.29 M/UL (4.20-5.40) Hemoglobin 11.7 G/DL (12.0-16.0) L Hematocrit 44.4 % (37.0-47.0) Mean Corpuscular Volume 84 FL (80-99) Mean Corpuscular Hemoglobin 22.1 PG (27.0-31.0) L Mean Corpuscular Hemoglobin Concent 26.3 G/DL (32.0-36.0) L Red Cell Distribution Width 18.6 % (11.6-14.8) H Platelet Count 319 K/UL (150-450) Mean Platelet Volume 6.4 FL (6.5-10.1) L Neutrophils (%) (Auto) % (45.0-75.0) Lymphocytes (%) (Auto) % (20.0-45.0) Monocytes (%) (Auto) % (1.0-10.0) Eosinophils (%) (Auto) % (0.0-3.0) Basophils (%) (Auto) % (0.0-2.0) Differential Total Cells Counted 100 Neutrophils % (Manual) 85 % (45-75) H Lymphocytes % (Manual) 6 % (20-45) L Monocytes % (Manual) 9 % (1-10) Eosinophils % (Manual) 0 % (0-3) Basophils % (Manual) 0 % (0-2) Band Neutrophils 0 % (0-8) Platelet Estimate Adequate Platelet Morphology Normal Hypochromasia 2+ Microcytosis 1+ Sodium Level 131 MMOL/L (136-145) L Potassium Level 8.0 MMOL/L (3.5-5.1) *H 7.8 MMOL/L (3.5-5.1) *H Chloride Level 93 MMOL/L (98-107) L Carbon Dioxide Level 26 MMOL/L (21-32) Anion Gap 11 mmol/L (5-15) Blood Urea Nitrogen 44 mg/dL (7-18) H Creatinine 4.2 MG/DL (0.55-1.30) H Estimat Glomerular Filtration Rate 13.1 mL/min (>60) Glucose Level 226 MG/DL (74-106) H Lactic Acid Level 8.10 mmol/L (0.66-2.22) H 6.90 mmol/L (0.66-2.22) H Calcium Level 8.9 MG/DL (8.5-10.1) Total Bilirubin 0.8 MG/DL (0.2-1.0) Aspartate Amino Transf (AST/SGOT) 9288 U/L (15-37) H Alanine Aminotransferase (ALT/SGPT) 4438 U/L (12-78) H Alkaline Phosphatase 101 U/L (46-116) Total Creatine Kinase 183 U/L (26-308) Creatine Kinase MB 3.1 NG/ML (0.0-3.6) Creatine Kinase MB Relative Index 1.6 Troponin I 0.461 ng/mL (0.000-0.056) Pro-B-Type Natriuretic Peptide 46414 pg/mL (0-125) H Total Protein 9.0 G/DL (6.4-8.2) H Albumin 3.0 G/DL (3.4-5.0) L Globulin 6.0 g/dL Albumin/Globulin Ratio 0.5 (1.0-2.7) L Urine Color Yellow Urine Appearance Slightly cloudy Urine pH 5 (4.5-8.0) Urine Specific [place] 1.025 (1.005-1.035) Urine Protein 3+ (NEGATIVE) H Urine Glucose (UA) Negative (NEGATIVE) Urine Ketones 1+ (NEGATIVE) H Urine Occult Blood 3+ (NEGATIVE) H Urine Nitrite Negative (NEGATIVE) Urine Bilirubin 1+ (NEGATIVE) H Urine Ictotest Negative Urine Urobilinogen 4 MG/DL (0.0-1.0) H Urine Leukocyte Esterase 1+ (NEGATIVE) H Urine RBC 2-4 /HPF (0 - 2) H Urine WBC 2-4 /HPF (0 - 2) Urine Squamous Epithelial Cells Few /LPF (NONE/OCC) Urine Amorphous Sediment Few /LPF (NONE) H Urine Bacteria Few /HPF (NONE) Arterial Blood pH 7.020 (7.350-7.450) 7.061 (7.350-7.450) Arterial Blood Partial Pressure CO2 96.7 mmHg (35.0-45.0) *H 113.3 mmHg (35.0-45.0) *H Arterial Blood Partial Pressure O2 84.0 mmHg (75.0-100.0) 72.9 mmHg (75.0-100.0) L Arterial Blood HCO3 24.4 mmol/L (22.0-26.0) 31.4 mmol/L (22.0-26.0) H Arterial Blood Oxygen Saturation 90.2 % (92.0-98.0) L 88.9 % (92.0-98.0) L Arterial Blood Base Excess -8.1 -1.4 Doroteo Test Positive Positive Acetaminophen Level < 2 MCG/ML (10-30) L Test 08/19/17 11:00 08/19/17 12:15 Prothrombin Time 14.5 SEC (9.30-11.50) H Prothromb Time International Ratio 1.4 (0.9-1.1) H Activated Partial Thromboplast Time 26 SEC (23-33) Sodium Level 136 MMOL/L (136-145) Potassium Level 7.4 MMOL/L (3.5-5.1) *H Chloride Level 96 MMOL/L (98-107) L Carbon Dioxide Level 26 MMOL/L (21-32) Anion Gap 15 mmol/L (5-15) Blood Urea Nitrogen 47 mg/dL (7-18) H Creatinine 4.1 MG/DL (0.55-1.30) H Estimat Glomerular Filtration Rate 13.5 mL/min (>60) Glucose Level 259 MG/DL (74-106) H Osmolality 327 mOsm/kg (297-317) H Uric Acid 9.7 MG/DL (2.6-7.2) H Calcium Level 8.3 MG/DL (8.5-10.1) L Phosphorus Level > 9.0 MG/DL (2.5-4.9) H Magnesium Level 1.9 MG/DL (1.8-2.4) Total Bilirubin 0.6 MG/DL (0.2-1.0) Aspartate Amino Transf (AST/SGOT) > 47211 U/L (15-37) H Alanine Aminotransferase (ALT/SGPT) 6658 U/L (12-78) H Alkaline Phosphatase 87 U/L (46-116) Total Creatine Kinase 197 U/L (26-308) Total Protein 8.1 G/DL (6.4-8.2) Albumin 2.6 G/DL (3.4-5.0) L Globulin 5.5 g/dL Albumin/Globulin Ratio 0.5 (1.0-2.7) L Triglycerides Level 99 MG/DL (30-150) Free Thyroxine 1.13 NG/DL (0.76-1.46) Arterial Blood pH 7.070 (7.350-7.450) Arterial Blood Partial Pressure CO2 84.4 mmHg (35.0-45.0) *H Arterial Blood Partial Pressure O2 143.5 mmHg (75.0-100.0) H Arterial Blood HCO3 23.9 mmol/L (22.0-26.0) Arterial Blood Oxygen Saturation 97.7 % (92.0-98.0) Arterial Blood Base Excess -7.4 Doroteo Test Positive Microbiology Date/Time Source Procedure Growth Status 08/19/17 08:45 Nasal Nares Influenza Types A,B Antigen (ZECHARIAH) - Final Complete DIANDRA CUMMINGS Aug 19, 2017 17:28
[2017-08-19] MEDS ORDERED: Cefepime HCl 2 GM in D5W 110 ML IV SCH (21:00)
[2017-08-19] MEDS: Heparin 5000 units/ml inj SUBQ SCH (21:23)
[2017-08-19] MEDS ORDERED: Cefepime 500mg in D5W 55ml IVPB SCH (22:00)
--- NOTE | 2017-08-19 22:15 | Consultation ---
DATE OF CONSULTATION: 08/19/2017 CARDIOLOGY CONSULTATION CONSULTING PHYSICIAN: Melvin Bejarano M.D. REQUESTING PHYSICIAN: Brittany Edmond M.D. REASON FOR CONSULTATION: Elevated troponin and junctional rhythm. HISTORY OF PRESENT ILLNESS: The patient is a 57-year-old lady with history of morbid obesity, hypertension, asthma, diabetes, and gastroesophageal reflux disease, who was brought from longterm for increasing shortness of breath and cough. The patient's O2 saturation was in the 70s by paramedics. The patient was previously hospitalized at [facility] for similar symptoms. In the emergency room, the patient was hypoxemic and hypercapnic despite BiPAP and was intubated and was brought to the intensive care unit. Potassium was in the 7 with lactate of 8 and creatinine of 4.2. The patient also had elevated troponin and AST and ALT were in the 1000s. Her EKG also showed accelerated junctional rhythm in the 60s with ST-T wave abnormality suggestive of inferolateral ischemia. REVIEW OF SYSTEMS: Cannot be obtained, as the patient is intubated on the ventilator. PAST MEDICAL HISTORY: As mentioned above. MEDICATIONS: Per reconciliation. FAMILY HISTORY: Noncontributory. SOCIAL HISTORY: She lives in a longterm. Does not smoke or drink alcohol. PHYSICAL EXAMINATION: VITAL SIGNS: Show blood pressure of 47/14, initially was 58/32, pulse is 85, and temperature 98.1. The patient is orally intubated with G-tube. LUNGS: Decreased breath sounds. CARDIOVASCULAR: Shows regular S1 and S2 with no gallop. ABDOMEN: Morbidly obese. EXTREMITIES: A 2+ pitting edema. LABORATORY AND DIAGNOSTIC DATA: Her EKG showed accelerated junctional rhythm with inferolateral ischemia, arterial inversion. Labs show white count 16.6, hemoglobin of 11.7, hematocrit of 44, and platelet count of 319. Sodium was 133, potassium was 7.8 and 7.4, BUN of 47, creatinine 4.1, and glucose of 259. Lactic acid is 6.9. Troponin is 0.46. AST 10,000 and ALT 6658. ASSESSMENT AND PLAN: 1. Inferolateral ischemia with elevated troponin suggestive of non-ST elevation myocardial infarction. I will have a prior EKG however and elevated troponin could be due to the patient's renal failure and demand ischemia and respiratory failure. We will repeat the EKG. We will completely rule out myocardial infarction protocol. We will get an echocardiogram for further evaluation. EKG needs to be repeated after hyperkalemia is also corrected. 2. Severe hyperkalemia, potassium was 7.8 and went down to 7.4, for which she will be getting hemodialysis today in view of renal failure and severe hyperkalemia. 3. Respiratory failure, on the ventilator. 4. Junctional rhythm. Keep the patient off any beta-destiney or calcium-channel destiney. 5. Hypotension, likely due to septic shock. The patient is on broad-spectrum intravenous antibiotic as well as Levophed. 6. Morbid obesity. 7. Hypertension. Thank you very much, Dr. Edmond, for allowing me to participate in the care of this patient. Please do not hesitate to contact me for any questions regarding my evaluation. Melvin Bejarano M.D. DR: JEFFREY JOB#: [id number] CC:
[2017-08-20] VITALS (71 sets, daily range): BP systolic 44–158; BP diastolic 13–86
[2017-08-20] MEDS ORDERED: Vancomycin 1 GM in D5W 275 ML IV SCH (00:30)
[2017-08-20] MEDS ORDERED: Levophed 4mg/4mL Inj IV ONE ×3 (02:01→06:45)
[2017-08-20 05:34] LABS: BASOPHILS % (AUTO) 0.7 % (0.0-2.0); HEMATOCRIT 35.1 % (37.0-47.0); LYMPHOCYTES % (AUTO) 10.3 % (20.0-45.0); MEAN CORPUSCULAR VOLUME 81 FL (80-99); MONOCYTES % (AUTO) 4.9 % (1.0-10.0); NEUTROPHILS % (AUTO) 84.1 % (45.0-75.0); PLATELET COUNT 155 K/UL (150-450); RED BLOOD COUNT 4.31 M/UL (4.20-5.40); WHITE BLOOD COUNT 15.1 K/UL (4.8-10.8)
[2017-08-20 06:01] LABS: INR 1.8 (0.9-1.1)
[2017-08-20 06:05] LABS: % IRON SATURATION 11 % (15-50); IRON 32 ug/dL (50-175); TOTAL IRON BINDING CAPACITY 299 ug/dL (250-450)
[2017-08-20 06:12] LABS: ALANINE AMINOTRANSFERASE 4549 U/L (12-78); ALBUMIN 2.2 G/DL (3.4-5.0); ALBUMIN/GLOBULIN RATIO 0.5 (1.0-2.7); ALKALINE PHOSPHATASE 78 U/L (46-116); ANION GAP 15 mmol/L (5-15); BILIRUBIN,TOTAL 1.1 MG/DL (0.2-1.0); BLOOD UREA NITROGEN 36 mg/dL (7-18); CALCIUM 7.5 MG/DL (8.5-10.1); CARBON DIOXIDE 29 MMOL/L (21-32); CHLORIDE 93 MMOL/L (98-107); CREATININE 4.1 MG/DL (0.55-1.30); SODIUM 136 MMOL/L (136-145)
[2017-08-20 06:25] LABS: BILIRUBIN,DIRECT 0.6 MG/DL (0.0-0.3)
[2017-08-20 07:04] LABS: CHOLESTEROL 148 MG/DL (< 200); HDL CHOLESTEROL 38 MG/DL (40-60); TRIGLYCERIDES 199 MG/DL (30-150)
[2017-08-20 07:13] LABS: ASPARTATE AMINO TRANSFERASE 9337 U/L (15-37)
[2017-08-20] MEDS ORDERED: Digoxin 0.5mg/2ml Inj IVP ONE ×2 (07:30→11:30)
[2017-08-20] MEDS: NovoLOG Insulin Flexpen SUBQ SCH ×4 (07:41→21:43)
[2017-08-20] MEDS ORDERED: Adenosine 6mg/2ml Inj IVP SCH (09:00)
[2017-08-20] MEDS ORDERED: Sodium Chloride 500ML 500 ML IV ONE (09:00)
[2017-08-20] MEDS ORDERED: Adenosine 6mg/2ml Inj IVP ONE ×2 (09:07→09:10)
[2017-08-20] MEDS: Pantoprazole Inj IV SCH (09:43)
[2017-08-20] MEDS: Aspirin Baby 81mg ORAL SCH (09:43)
[2017-08-20] MEDS: Heparin 5000 units/ml inj SUBQ SCH ×2 (09:44→21:42)
[2017-08-20] MEDS ORDERED: Vancomycin 1.5 GM/D5W 250ML IVPB ONE (10:00)
--- NOTE | 2017-08-20 10:00 | Diagnostic Imaging Report ---
Indication:Abdominal pain. Increased LFTs. Diabetes. End-stage renal disease on dialysis Technique: Grayscale and duplex Doppler imaging of the abdomen performed. Comparison: None Findings: Study was limited due to body habitus. The liver is diffusely echogenic consistent with fatty infiltrate should and enlarged measuring 22 cm. The main portal vein is patent by Doppler examination. No gross abnormalities of the gallbladder identified. The kidneys are not well seen. The aorta and IVC are not well seen. Pancreas is not seen. Spleen is not seen. There is no obvious free fluid. No biliary ductal dilatation is identified. CBD is measured at 3 mm. IMPRESSION: Very limited examination. Hepatomegaly with fatty infiltration.
--- NOTE | 2017-08-20 11:08 | General Progress Note ---
Assessment/Plan Problem List: (1) SVT (supraventricular tachycardia) ICD Codes: I47.1 - Supraventricular tachycardia SNOMED: 9274857 (2) Acute respiratory failure with hypoxia and hypercapnia ICD Codes: J96.01 - Acute respiratory failure with hypoxia; J96.02 - Acute respiratory failure with hypercapnia SNOMED: 88883683, 89427353, 999509111 (3) Septic shock ICD Codes: A41.9 - Sepsis, unspecified organism; R65.21 - Severe sepsis with septic shock SNOMED: 08686572 (4) KASHIF (acute kidney injury) ICD Codes: N17.9 - Acute kidney failure, unspecified SNOMED: 65474030 (5) Lactic acid acidosis ICD Codes: E87.2 - Acidosis SNOMED: 85745272 (6) Hyperkalemia ICD Codes: E87.5 - Hyperkalemia; J96.02 - Acute respiratory failure with hypercapnia SNOMED: 90725765, 91703591, 080074680 (7) Acute toxic metabolic encephalopathy (8) Shock liver ICD Codes: K72.00 - Acute and subacute hepatic failure without coma SNOMED: 895081810 (9) Non-STEMI (non-ST elevated myocardial infarction) ICD Codes: I21.4 - Non-ST elevation (NSTEMI) myocardial infarction; J96.02 - Acute respiratory failure with hypercapnia SNOMED: 456023223, 99614704, 052689750 (10) DM2 (diabetes mellitus, type 2) ICD Codes: E11.9 - Type 2 diabetes mellitus without complications SNOMED: 90697155 (11) Asthma ICD Codes: J45.909 - Unspecified asthma, uncomplicated SNOMED: 809503880 (12) GERD (gastroesophageal reflux disease) ICD Codes: K21.9 - Gastro-esophageal reflux disease without esophagitis SNOMED: 676647403 Status: unchanged Assessment/Plan Cont ICU care Pulmonology, Nephrology, GI, ID, Cardiology consulted Empiric vanco and meropenem per ID (08/19-) F/u cultures Cont on vent and wean as tolerated Daily SBTs, sedation holiday Cont pressors to maintain MAP 65 and above Siren to be placed by gen surg Trend lactate Trend trop/EKG--cont to uptrend ASA, statin Check ECHO--EF 70% Started on HD on 08/19/17 Trend BMP closely Cont mucomyst IV for shock liver/hepatitis per GI Trend LFTs Place NGT for feeds PPI Pain control, supportive care, bowel regimen Attempt to contact family for GOC discussion DVT Prophylaxis: HSQ Code Status: Full Hospital Classification Declaration: Based on this initial evaluation, and depending on the patient's clinical course, I anticipate that this patient will require hospitalization for 4-5 days for acute respiratory failure, septic shock and close respiratory/hemodynamic monitoring. At the time of my involvement, the patient's condition was critical with high potential for and/or physiologic deterioration secondary to acute respiratory failure, septic shock, shock liver, KASHIF as delineated in the note above. On the above date of service, I spent a total of 40 minutes in the ICU evaluating, managing, and providing critical care services to this patient, including time spent documenting these activities, counseling patient/family, and coordinating care. Critical care services performed include: Telemetry Review Hemodynamic measurement interpretation Laboratory data review and interpretation Ventilator setting review, management, and adjustment Discussion of care plans with patient, family, and/or surrogate decision makers Discussion of patient's care with primary medical team, surgical team, and/or consulting service Decision to obtain further radiologic evaluation, after consideration of risk/ benefit ratio Decision to perform invasive procedure, after consideration of risk/benefit ratio Review of most recent microbiology results with assessment and modification of antimicrobial coverage Discussion of patient's code status and further advancement towards the ultimate goals of care Plan outlined above discussed with patient/family, [employer], ICU team, and involved physicians/consultants. Time of note may not reflect time of encounter. Subjective Date patient seen: Aug 20, 2017 Time patient seen: 11:08 ROS Limited/Unobtainable: Yes Allergies: Coded Allergies: No Known Allergies (Unverified , 06/01/17) Subjective Started on HD yesterday given severe hyperkalemia in setting of KASHIF Pt continues to be very hypotensive and pressors being maxed out. Jazmin to be placed for more precise BP measurements Lactate remains elevated at 6 SVT this AM, given adenosine and then digoxin. Pt now conserved to NSR Pt intubated, sedated Unable to obtain ROS as pt sedated Objective Last 24 Hour Vital Signs Date Time Temp Pulse Resp B/P (MAP) Pulse Ox O2 Delivery O2 Flow Rate FiO2 08/20/17 11:00 175 22 44/15 90 Mechanical Ventilator 90 08/20/17 10:45 181 22 44/22 90 Mechanical Ventilator 90 08/20/17 10:38 44/15 08/20/17 10:30 175 22 44/15 90 Mechanical Ventilator 90 08/20/17 10:15 175 24 80/39 90 Mechanical Ventilator 90 08/20/17 10:00 185 20 60/50 90 Mechanical Ventilator 90 08/20/17 09:45 194 20 48/13 90 Mechanical Ventilator 90 08/20/17 09:30 197 20 46/16 90 Mechanical Ventilator 90 08/20/17 09:28 201 21 100 08/20/17 09:15 198 20 57/26 90 Mechanical Ventilator 90 08/20/17 09:07 196 08/20/17 09:01 201 08/20/17 09:00 98.9 196 20 47/34 90 Mechanical Ventilator 90 08/20/17 08:53 201 08/20/17 08:47 204 08/20/17 08:45 201 20 49/18 90 Mechanical Ventilator 90 08/20/17 08:30 202 21 55/35 90 Mechanical Ventilator 90 08/20/17 08:15 203 21 55/35 90 Mechanical Ventilator 90 08/20/17 08:00 207 08/20/17 08:00 100 08/20/17 08:00 99.8 202 20 47/36 91 Mechanical Ventilator 100 08/20/17 07:45 202 21 45/30 89 Mechanical Ventilator 90 08/20/17 07:39 213 08/20/17 07:30 90 08/20/17 07:30 209 21 56/32 89 Mechanical Ventilator 90 08/20/17 07:28 214 23 100 08/20/17 07:08 70/33 08/20/17 07:00 207 21 61/35 91 Mechanical Ventilator 100 87 08/20/17 06:30 197 24 61/35 94 Mechanical Ventilator 100 87 08/20/17 06:00 204 24 44/18 97 Mechanical Ventilator 100 87 08/20/17 05:30 89 20 61/35 97 Mechanical Ventilator 100 87 08/20/17 05:00 89 18 54/36 97 Mechanical Ventilator 100 87 08/20/17 04:41 86 20 90 08/20/17 04:31 70/33 08/20/17 04:30 87 22 61/38 96 Mechanical Ventilator 100 87 08/20/17 04:00 87 08/20/17 04:00 100 08/20/17 04:00 98.3 91 27 57/38 95 Mechanical Ventilator 100 87 08/20/17 03:30 89 21 60/35 98 Mechanical Ventilator 100 87 08/20/17 03:28 90 20 90 08/20/17 03:00 87 20 62/34 98 Mechanical Ventilator 100 87 08/20/17 02:30 87 19 63/42 99 Mechanical Ventilator 100 87 08/20/17 02:08 70/33 08/20/17 02:00 85 23 52/17 99 Mechanical Ventilator 100 87 08/20/17 01:30 92 19 60/38 96 Mechanical Ventilator 100 87 08/20/17 01:12 84 20 100 08/20/17 01:00 87 19 56/37 94 Mechanical Ventilator 100 87 08/20/17 00:30 86 19 68/33 93 Mechanical Ventilator 100 87 08/20/17 00:00 100 08/20/17 00:00 98.9 85 20 61/38 95 Mechanical Ventilator 100 87 08/20/17 00:00 85 08/19/17 23:30 86 20 70/33 95 Mechanical Ventilator 100 87 08/19/17 23:27 50/28 08/19/17 23:00 89 22 69/43 95 Mechanical Ventilator 100 87 08/19/17 22:50 88 18 100 08/19/17 22:38 Mechanical Ventilator 100 08/19/17 22:30 99.3 87 24 71/40 Mechanical Ventilator 100 08/19/17 22:00 86 22 43/34 95 Mechanical Ventilator 100 08/19/17 21:30 88 20 62/25 95 Mechanical Ventilator 100 08/19/17 21:00 81 22 79/33 94 Mechanical Ventilator 100 08/19/17 20:51 88 18 100 08/19/17 20:30 84 22 72/36 96 Mechanical Ventilator 100 08/19/17 20:00 98.0 82 20 70/28 96 Mechanical Ventilator 100 08/19/17 20:00 100 08/19/17 20:00 86 08/19/17 19:30 85 20 52/43 96 Mechanical Ventilator 100 08/19/17 19:00 90 21 62/38 95 Endotracheal Tube 100 08/19/17 19:00 62/38 08/19/17 18:50 80 20 100 08/19/17 18:30 90 21 64/31 90 Endotracheal Tube 100 08/19/17 18:15 90 21 59/34 90 Endotracheal Tube 100 08/19/17 18:00 98.6 88 24 67/23 Mechanical Ventilator 100 08/19/17 18:00 89 21 77/48 90 Endotracheal Tube 100 08/19/17 18:00 Mechanical Ventilator 100 08/19/17 18:00 53/24 08/19/17 17:45 86 20 53/24 90 Endotracheal Tube 100 08/19/17 17:30 87 20 68/53 90 Endotracheal Tube 100 08/19/17 17:15 86 20 76/48 90 Endotracheal Tube 100 08/19/17 17:10 85 20 100 08/19/17 17:00 85 20 63/19 90 Endotracheal Tube 100 08/19/17 17:00 63/19 08/19/17 16:45 81 20 73/48 90 Endotracheal Tube 100 08/19/17 16:30 79 20 74/42 90 Endotracheal Tube 100 08/19/17 16:15 77 21 54/36 90 Endotracheal Tube 100 08/19/17 16:08 47/14 08/19/17 16:00 100 08/19/17 16:00 78 08/19/17 16:00 98.1 77 20 47/14 90 Endotracheal Tube 100 08/19/17 15:30 70 21 113/54 97 Endotracheal Tube 100 08/19/17 15:29 75 20 100 08/19/17 15:00 70 21 114/51 97 Endotracheal Tube 100 08/19/17 14:00 78 08/19/17 14:00 78 21 58/32 97 Endotracheal Tube 100 08/19/17 14:00 100 08/19/17 13:14 100.1 86 18 100/56 91 Endotracheal Tube 15.0 100 08/19/17 13:00 70 21 65/47 97 Endotracheal Tube 100 08/19/17 12:52 72 18 100 08/19/17 12:35 17 08/19/17 12:20 18 08/19/17 12:18 70 21 123/92 97 Endotracheal Tube 100 08/19/17 11:45 70 18 95/53 98 Endotracheal Tube 100 08/19/17 11:30 97.9 08/19/17 11:30 70 18 89/54 97 Endotracheal Tube 100 08/19/17 11:17 71 22 55/26 100 Endotracheal Tube 100 08/19/17 11:17 18 Intake and Output 08/19/17 08/20/17 19:00 07:00 Intake Total 2487.5 ml 0 ml Output Total 215 ml 60 ml Balance 2272.5 ml -60 ml Intake Oral 0 ml 0 ml IV Total 2487.5 ml Output Urine Total 215 ml 60 ml Hemodialysis UF 0 ml # Voids 100 Laboratory Tests 08/19/17 12:15: Arterial Blood pH 7.070*L, Arterial Blood Partial Pressure CO2 84.4*H, Arterial Blood Partial Pressure O2 143.5H, Arterial Blood HCO3 23.9, Arterial Blood Oxygen Saturation 97.7, Arterial Blood Base Excess -7.4, Doroteo Test Positive 08/19/17 19:12: Lactic Acid Level 6.40H, Troponin I 0.576H 08/20/17 00:30: Lactic Acid Level 6.20H 08/20/17 05:00: Lactic Acid Level 6.10H, Troponin I 0.903H, White Blood Count 15.1H, Red Blood Count 4.31, Hemoglobin 10.0L, Hematocrit 35.1L, Mean Corpuscular Volume 81, Mean Corpuscular Hemoglobin 23.1L, Mean Corpuscular Hemoglobin Concent 28.4L, Red Cell Distribution Width 18.0H, Platelet Count 155#, Mean Platelet Volume 7.2 , Neutrophils (%) (Auto) 84.1H, Lymphocytes (%) (Auto) 10.3L, Monocytes (%) ( Auto) 4.9, Eosinophils (%) (Auto) 0.0, Basophils (%) (Auto) 0.7, Reticulocyte Count [Pending], Prothrombin Time 18.7H, Prothromb Time International Ratio 1.8H , Activated Partial Thromboplast Time 30, Sodium Level 136, Potassium Level 5.0 , Chloride Level 93L, Carbon Dioxide Level 29, Anion Gap 15, Blood Urea Nitrogen 36H, Creatinine 4.1H, Estimat Glomerular Filtration Rate 13.5, Glucose Level 261H, Hemoglobin A1c 8.7H, Calcium Level 7.5L, Iron Level 32L, Total Iron Binding Capacity 299, Percent Iron Saturation 11L, Unsaturated Iron Binding 267 , Ferritin 953H, Total Bilirubin 1.1H, Direct Bilirubin 0.6H, Aspartate Amino Transf (AST/SGOT) 9337H, Alanine Aminotransferase (ALT/SGPT) 4549H, Alkaline Phosphatase 78, C-Reactive Protein, Quantitative 21.1H, Total Protein 6.8, Albumin 2.2L, Globulin 4.6, Albumin/Globulin Ratio 0.5L, Triglycerides Level 199H, Cholesterol Level 148, LDL Cholesterol 67, HDL Cholesterol 38L, Cholesterol/HDL Ratio 3.9, Vitamin B12 Level 7750H, Folate 13.2, Thyroid Stimulating Hormone (TSH) 5.469H, Random Vancomycin Level 9.6 08/20/17 09:00: Lactic Acid Level 5.90H Height (Feet): 5 Height (Inches): 3.00 Weight (Pounds): 460 Objective General: intubated, sedated, morbid obesity Head: normocephalic, without obvious abnormality, atraumatic Eyes: conjunctivae/corneas clear. PERRL, EOM's intact Throat: lips, mucosa, and tongue normal. MMM Neck: supple, symmetrical, trachea midline, and no JVD Lungs: clear to auscultation bilaterally Heart: regular rate and rhythm, S1, S2 normal, no murmur, click, rub or gallop Abdomen: soft, non-tender, non-distended, bowel sounds normal Extremities: extremities normal, atraumatic, no cyanosis or edema Pulses: 2+ and symmetric Skin: skin color, texture, turgor normal; no rashes or lesions Neurologic: sedated Cassie Bolivar M.D. Aug 20, 2017 11:08
--- NOTE | 2017-08-20 11:46 | Nephrology Progress Note ---
Assessment/Plan Problem List: (1) Acute renal failure (ARF) (2) Acute respiratory acidosis (3) Lactic acid acidosis (4) Septic shock (5) Acute respiratory failure with hypoxia and hypercapnia Assessment acute renal failure Hyperkalemia sepsis, high Lactic , acidosis low BP resp failure obese Plan dialysed 08/19 redialys Arterial line per cardiology and ID and pulm discussed with ID Subjective ROS Limited/Unobtainable: Yes Constitutional: Reports: other - in ICU- Intubated Objective Objective Last 24 Hour Vital Signs Date Time Temp Pulse Resp B/P (MAP) Pulse Ox O2 Delivery O2 Flow Rate FiO2 08/20/17 11:28 194 08/20/17 11:00 175 22 44/15 90 Mechanical Ventilator 90 08/20/17 10:45 181 22 44/22 90 Mechanical Ventilator 90 08/20/17 10:38 44/15 08/20/17 10:30 175 22 44/15 90 Mechanical Ventilator 90 08/20/17 10:15 175 24 80/39 90 Mechanical Ventilator 90 08/20/17 10:00 185 20 60/50 90 Mechanical Ventilator 90 08/20/17 09:45 194 20 48/13 90 Mechanical Ventilator 90 08/20/17 09:30 197 20 46/16 90 Mechanical Ventilator 90 08/20/17 09:28 201 21 100 08/20/17 09:15 198 20 57/26 90 Mechanical Ventilator 90 08/20/17 09:07 196 08/20/17 09:01 201 08/20/17 09:00 98.9 196 20 47/34 90 Mechanical Ventilator 90 08/20/17 08:53 201 08/20/17 08:47 204 08/20/17 08:45 201 20 49/18 90 Mechanical Ventilator 90 08/20/17 08:30 202 21 55/35 90 Mechanical Ventilator 90 08/20/17 08:15 203 21 55/35 90 Mechanical Ventilator 90 08/20/17 08:00 207 08/20/17 08:00 100 08/20/17 08:00 99.8 202 20 47/36 91 Mechanical Ventilator 100 08/20/17 07:45 202 21 45/30 89 Mechanical Ventilator 90 08/20/17 07:39 213 08/20/17 07:30 90 08/20/17 07:30 209 21 56/32 89 Mechanical Ventilator 90 08/20/17 07:28 214 23 100 08/20/17 07:08 70/33 08/20/17 07:00 207 21 61/35 91 Mechanical Ventilator 100 87 08/20/17 06:30 197 24 61/35 94 Mechanical Ventilator 100 87 08/20/17 06:00 204 24 44/18 97 Mechanical Ventilator 100 87 08/20/17 05:30 89 20 61/35 97 Mechanical Ventilator 100 87 08/20/17 05:00 89 18 54/36 97 Mechanical Ventilator 100 87 08/20/17 04:41 86 20 90 08/20/17 04:31 70/33 08/20/17 04:30 87 22 61/38 96 Mechanical Ventilator 100 87 08/20/17 04:00 87 08/20/17 04:00 100 08/20/17 04:00 98.3 91 27 57/38 95 Mechanical Ventilator 100 87 08/20/17 03:30 89 21 60/35 98 Mechanical Ventilator 100 87 08/20/17 03:28 90 20 90 08/20/17 03:00 87 20 62/34 98 Mechanical Ventilator 100 87 08/20/17 02:30 87 19 63/42 99 Mechanical Ventilator 100 87 08/20/17 02:08 70/33 08/20/17 02:00 85 23 52/17 99 Mechanical Ventilator 100 87 08/20/17 01:30 92 19 60/38 96 Mechanical Ventilator 100 87 08/20/17 01:12 84 20 100 08/20/17 01:00 87 19 56/37 94 Mechanical Ventilator 100 87 08/20/17 00:30 86 19 68/33 93 Mechanical Ventilator 100 87 08/20/17 00:00 100 08/20/17 00:00 98.9 85 20 61/38 95 Mechanical Ventilator 100 87 08/20/17 00:00 85 08/19/17 23:30 86 20 70/33 95 Mechanical Ventilator 100 87 08/19/17 23:27 50/28 08/19/17 23:00 89 22 69/43 95 Mechanical Ventilator 100 87 08/19/17 22:50 88 18 100 08/19/17 22:38 Mechanical Ventilator 100 08/19/17 22:30 99.3 87 24 71/40 Mechanical Ventilator 100 08/19/17 22:00 86 22 43/34 95 Mechanical Ventilator 100 08/19/17 21:30 88 20 62/25 95 Mechanical Ventilator 100 08/19/17 21:00 81 22 79/33 94 Mechanical Ventilator 100 08/19/17 20:51 88 18 100 08/19/17 20:30 84 22 72/36 96 Mechanical Ventilator 100 08/19/17 20:00 98.0 82 20 70/28 96 Mechanical Ventilator 100 08/19/17 20:00 100 08/19/17 20:00 86 08/19/17 19:30 85 20 52/43 96 Mechanical Ventilator 100 08/19/17 19:00 90 21 62/38 95 Endotracheal Tube 100 08/19/17 19:00 62/38 08/19/17 18:50 80 20 100 08/19/17 18:30 90 21 64/31 90 Endotracheal Tube 100 08/19/17 18:15 90 21 59/34 90 Endotracheal Tube 100 08/19/17 18:00 98.6 88 24 67/23 Mechanical Ventilator 100 08/19/17 18:00 89 21 77/48 90 Endotracheal Tube 100 08/19/17 18:00 Mechanical Ventilator 100 08/19/17 18:00 53/24 08/19/17 17:45 86 20 53/24 90 Endotracheal Tube 100 08/19/17 17:30 87 20 68/53 90 Endotracheal Tube 100 08/19/17 17:15 86 20 76/48 90 Endotracheal Tube 100 08/19/17 17:10 85 20 100 08/19/17 17:00 85 20 63/19 90 Endotracheal Tube 100 08/19/17 17:00 63/19 08/19/17 16:45 81 20 73/48 90 Endotracheal Tube 100 08/19/17 16:30 79 20 74/42 90 Endotracheal Tube 100 08/19/17 16:15 77 21 54/36 90 Endotracheal Tube 100 08/19/17 16:08 47/14 08/19/17 16:00 100 08/19/17 16:00 78 08/19/17 16:00 98.1 77 20 47/14 90 Endotracheal Tube 100 08/19/17 15:30 70 21 113/54 97 Endotracheal Tube 100 08/19/17 15:29 75 20 100 08/19/17 15:00 70 21 114/51 97 Endotracheal Tube 100 08/19/17 14:00 78 08/19/17 14:00 78 21 58/32 97 Endotracheal Tube 100 08/19/17 14:00 100 08/19/17 13:14 100.1 86 18 100/56 91 Endotracheal Tube 15.0 100 08/19/17 13:00 70 21 65/47 97 Endotracheal Tube 100 08/19/17 12:52 72 18 100 08/19/17 12:35 17 08/19/17 12:20 18 08/19/17 12:18 70 21 123/92 97 Endotracheal Tube 100 08/19/17 11:45 70 18 95/53 98 Endotracheal Tube 100 Intake and Output 08/19/17 08/20/17 19:00 07:00 Intake Total 2487.5 ml 0 ml Output Total 215 ml 60 ml Balance 2272.5 ml -60 ml Intake Oral 0 ml 0 ml IV Total 2487.5 ml Output Urine Total 215 ml 60 ml Hemodialysis UF 0 ml # Voids 100 Laboratory Tests 08/19/17 12:15: Arterial Blood pH 7.070*L, Arterial Blood Partial Pressure CO2 84.4*H, Arterial Blood Partial Pressure O2 143.5H, Arterial Blood HCO3 23.9, Arterial Blood Oxygen Saturation 97.7, Arterial Blood Base Excess -7.4, Doroteo Test Positive 08/19/17 19:12: Lactic Acid Level 6.40H, Troponin I 0.576H 08/20/17 00:30: Lactic Acid Level 6.20H 08/20/17 05:00: Lactic Acid Level 6.10H, Troponin I 0.903H, White Blood Count 15.1H, Red Blood Count 4.31, Hemoglobin 10.0L, Hematocrit 35.1L, Mean Corpuscular Volume 81, Mean Corpuscular Hemoglobin 23.1L, Mean Corpuscular Hemoglobin Concent 28.4L, Red Cell Distribution Width 18.0H, Platelet Count 155#, Mean Platelet Volume 7.2 , Neutrophils (%) (Auto) 84.1H, Lymphocytes (%) (Auto) 10.3L, Monocytes (%) ( Auto) 4.9, Eosinophils (%) (Auto) 0.0, Basophils (%) (Auto) 0.7, Reticulocyte Count 1.1, Prothrombin Time 18.7H, Prothromb Time International Ratio 1.8H, Activated Partial Thromboplast Time 30, Sodium Level 136, Potassium Level 5.0, Chloride Level 93L, Carbon Dioxide Level 29, Anion Gap 15, Blood Urea Nitrogen 36H, Creatinine 4.1H, Estimat Glomerular Filtration Rate 13.5, Glucose Level 261H, Hemoglobin A1c 8.7H, Calcium Level 7.5L, Iron Level 32L, Total Iron Binding Capacity 299, Percent Iron Saturation 11L, Unsaturated Iron Binding 267 , Ferritin 953H, Total Bilirubin 1.1H, Direct Bilirubin 0.6H, Aspartate Amino Transf (AST/SGOT) 9337H, Alanine Aminotransferase (ALT/SGPT) 4549H, Alkaline Phosphatase 78, C-Reactive Protein, Quantitative 21.1H, Total Protein 6.8, Albumin 2.2L, Globulin 4.6, Albumin/Globulin Ratio 0.5L, Triglycerides Level 199H, Cholesterol Level 148, LDL Cholesterol 67, HDL Cholesterol 38L, Cholesterol/HDL Ratio 3.9, Vitamin B12 Level 7750H, Folate 13.2, Thyroid Stimulating Hormone (TSH) 5.469H, Random Vancomycin Level 9.6 08/20/17 09:00: Lactic Acid Level 5.90H Height (Feet): 5 Height (Inches): 3.00 Weight (Pounds): 460 General Appearance: no apparent distress, alert, other - obese Cardiovascular: tachycardia Respiratory/Chest: decreased breath sounds Abdomen: distended, other - obese AGUSTIN CONTRERAS Aug 20, 2017 11:46
--- NOTE | 2017-08-20 11:49 | Pulmonolgy Critical Care Note ---
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 with: nurses, consultants, 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 case 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 - Objective Last 24 Hour Vital Signs Date Time Temp Pulse Resp B/P (MAP) Pulse Ox O2 Delivery O2 Flow Rate FiO2 08/20/17 11:28 194 08/20/17 11:00 175 22 44/15 90 Mechanical Ventilator 90 08/20/17 10:45 181 22 44/22 90 Mechanical Ventilator 90 08/20/17 10:38 44/15 08/20/17 10:35 188 20 100 08/20/17 10:30 175 22 44/15 90 Mechanical Ventilator 90 08/20/17 10:15 175 24 80/39 90 Mechanical Ventilator 90 08/20/17 10:00 185 20 60/50 90 Mechanical Ventilator 90 08/20/17 09:45 194 20 48/13 90 Mechanical Ventilator 90 08/20/17 09:30 197 20 46/16 90 Mechanical Ventilator 90 08/20/17 09:28 201 21 100 08/20/17 09:15 198 20 57/26 90 Mechanical Ventilator 90 08/20/17 09:07 196 08/20/17 09:01 201 08/20/17 09:00 98.9 196 20 47/34 90 Mechanical Ventilator 90 08/20/17 08:53 201 08/20/17 08:47 204 08/20/17 08:45 201 20 49/18 90 Mechanical Ventilator 90 08/20/17 08:30 202 21 55/35 90 Mechanical Ventilator 90 08/20/17 08:15 203 21 55/35 90 Mechanical Ventilator 90 08/20/17 08:00 207 08/20/17 08:00 100 08/20/17 08:00 99.8 202 20 47/36 91 Mechanical Ventilator 100 08/20/17 07:45 202 21 45/30 89 Mechanical Ventilator 90 08/20/17 07:39 213 08/20/17 07:30 90 08/20/17 07:30 209 21 56/32 89 Mechanical Ventilator 90 08/20/17 07:28 214 23 100 08/20/17 07:08 70/33 08/20/17 07:00 207 21 61/35 91 Mechanical Ventilator 100 87 08/20/17 06:30 197 24 61/35 94 Mechanical Ventilator 100 87 08/20/17 06:00 204 24 44/18 97 Mechanical Ventilator 100 87 08/20/17 05:30 89 20 61/35 97 Mechanical Ventilator 100 87 08/20/17 05:00 89 18 54/36 97 Mechanical Ventilator 100 87 08/20/17 04:41 86 20 90 08/20/17 04:31 70/33 08/20/17 04:30 87 22 61/38 96 Mechanical Ventilator 100 87 08/20/17 04:00 87 08/20/17 04:00 100 08/20/17 04:00 98.3 91 27 57/38 95 Mechanical Ventilator 100 87 08/20/17 03:30 89 21 60/35 98 Mechanical Ventilator 100 87 08/20/17 03:28 90 20 90 08/20/17 03:00 87 20 62/34 98 Mechanical Ventilator 100 87 08/20/17 02:30 87 19 63/42 99 Mechanical Ventilator 100 87 08/20/17 02:08 70/33 08/20/17 02:00 85 23 52/17 99 Mechanical Ventilator 100 87 08/20/17 01:30 92 19 60/38 96 Mechanical Ventilator 100 87 08/20/17 01:12 84 20 100 08/20/17 01:00 87 19 56/37 94 Mechanical Ventilator 100 87 08/20/17 00:30 86 19 68/33 93 Mechanical Ventilator 100 87 08/20/17 00:00 100 08/20/17 00:00 98.9 85 20 61/38 95 Mechanical Ventilator 100 87 08/20/17 00:00 85 08/19/17 23:30 86 20 70/33 95 Mechanical Ventilator 100 87 08/19/17 23:27 50/28 08/19/17 23:00 89 22 69/43 95 Mechanical Ventilator 100 87 08/19/17 22:50 88 18 100 08/19/17 22:38 Mechanical Ventilator 100 08/19/17 22:30 99.3 87 24 71/40 Mechanical Ventilator 100 08/19/17 22:00 86 22 43/34 95 Mechanical Ventilator 100 08/19/17 21:30 88 20 62/25 95 Mechanical Ventilator 100 08/19/17 21:00 81 22 79/33 94 Mechanical Ventilator 100 08/19/17 20:51 88 18 100 08/19/17 20:30 84 22 72/36 96 Mechanical Ventilator 100 08/19/17 20:00 98.0 82 20 70/28 96 Mechanical Ventilator 100 08/19/17 20:00 100 08/19/17 20:00 86 08/19/17 19:30 85 20 52/43 96 Mechanical Ventilator 100 08/19/17 19:00 90 21 62/38 95 Endotracheal Tube 100 08/19/17 19:00 62/38 08/19/17 18:50 80 20 100 08/19/17 18:30 90 21 64/31 90 Endotracheal Tube 100 08/19/17 18:15 90 21 59/34 90 Endotracheal Tube 100 08/19/17 18:00 98.6 88 24 67/23 Mechanical Ventilator 100 08/19/17 18:00 89 21 77/48 90 Endotracheal Tube 100 08/19/17 18:00 Mechanical Ventilator 100 08/19/17 18:00 53/24 08/19/17 17:45 86 20 53/24 90 Endotracheal Tube 100 08/19/17 17:30 87 20 68/53 90 Endotracheal Tube 100 08/19/17 17:15 86 20 76/48 90 Endotracheal Tube 100 08/19/17 17:10 85 20 100 08/19/17 17:00 85 20 63/19 90 Endotracheal Tube 100 08/19/17 17:00 63/19 08/19/17 16:45 81 20 73/48 90 Endotracheal Tube 100 08/19/17 16:30 79 20 74/42 90 Endotracheal Tube 100 08/19/17 16:15 77 21 54/36 90 Endotracheal Tube 100 08/19/17 16:08 47/14 08/19/17 16:00 100 08/19/17 16:00 78 08/19/17 16:00 98.1 77 20 47/14 90 Endotracheal Tube 100 08/19/17 15:30 70 21 113/54 97 Endotracheal Tube 100 08/19/17 15:29 75 20 100 08/19/17 15:00 70 21 114/51 97 Endotracheal Tube 100 08/19/17 14:00 78 08/19/17 14:00 78 21 58/32 97 Endotracheal Tube 100 08/19/17 14:00 100 08/19/17 13:14 100.1 86 18 100/56 91 Endotracheal Tube 15.0 100 08/19/17 13:00 70 21 65/47 97 Endotracheal Tube 100 08/19/17 12:52 72 18 100 08/19/17 12:35 17 08/19/17 12:20 18 08/19/17 12:18 70 21 123/92 97 Endotracheal Tube 100 Status: awake Condition: critical HEENT: atraumatic Neck: full ROM Heart: HR/BP stable Abdomen: non-tender, active bowel sounds Extremities: no C/C/E, edema Micro: Microbiology Date/Time Source Procedure Growth Status 08/19/17 08:45 Nasal Nares Influenza Types A,B Antigen (ZECHARIAH) - Final Complete Accucheck: 235 Critical Care - Subjective ROS Limited/Unobtainable: Yes ICU Day: 2 Intubation Day: 2 Condition: critical EKG Rhythm: Sinus Rhythm FI02: 90 Vent Support Breath Rate: 20 Vent Support Mode: AC Vent Tidal Volume: 600 Sputum Amount: Small PEEP: 5.0 PIP: 40 Fluids: NS 100 cc/hour I&O: Intake and Output 08/19/17 08/20/17 19:00 07:00 Intake Total 2487.5 ml 0 ml Output Total 215 ml 60 ml Balance 2272.5 ml -60 ml Intake Oral 0 ml 0 ml IV Total 2487.5 ml Output Urine Total 215 ml 60 ml Hemodialysis UF 0 ml # Voids 100 CXR: extensive bilateral infiltrate. ET-Tube: 8.0 ET Position: 24 Labs: Laboratory Tests Test 08/19/17 12:15 08/19/17 19:12 08/20/17 00:30 08/20/17 05:00 Arterial Blood pH 7.070 (7.350-7.450) Arterial Blood Partial Pressure CO2 84.4 mmHg (35.0-45.0) *H Arterial Blood Partial Pressure O2 143.5 mmHg (75.0-100.0) H Arterial Blood HCO3 23.9 mmol/L (22.0-26.0) Arterial Blood Oxygen Saturation 97.7 % (92.0-98.0) Arterial Blood Base Excess -7.4 Doroteo Test Positive Lactic Acid Level 6.40 mmol/L (0.66-2.22) H 6.20 mmol/L (0.66-2.22) H 6.10 mmol/L (0.66-2.22) H Troponin I 0.576 ng/mL (0.000-0.056) 0.903 ng/mL (0.000-0.056) White Blood Count 15.1 K/UL (4.8-10.8) H Red Blood Count 4.31 M/UL (4.20-5.40) Hemoglobin 10.0 G/DL (12.0-16.0) L Hematocrit 35.1 % (37.0-47.0) L Mean Corpuscular Volume 81 FL (80-99) Mean Corpuscular Hemoglobin 23.1 PG (27.0-31.0) L Mean Corpuscular Hemoglobin Concent 28.4 G/DL (32.0-36.0) L Red Cell Distribution Width 18.0 % (11.6-14.8) H Platelet Count 155 K/UL (150-450) # Mean Platelet Volume 7.2 FL (6.5-10.1) Neutrophils (%) (Auto) 84.1 % (45.0-75.0) H Lymphocytes (%) (Auto) 10.3 % (20.0-45.0) L Monocytes (%) (Auto) 4.9 % (1.0-10.0) Eosinophils (%) (Auto) 0.0 % (0.0-3.0) Basophils (%) (Auto) 0.7 % (0.0-2.0) Reticulocyte Count 1.1 % (0.0-2.0) Prothrombin Time 18.7 SEC (9.30-11.50) H Prothromb Time International Ratio 1.8 (0.9-1.1) H Activated Partial Thromboplast Time 30 SEC (23-33) Sodium Level 136 MMOL/L (136-145) Potassium Level 5.0 MMOL/L (3.5-5.1) Chloride Level 93 MMOL/L (98-107) L Carbon Dioxide Level 29 MMOL/L (21-32) Anion Gap 15 mmol/L (5-15) Blood Urea Nitrogen 36 mg/dL (7-18) H Creatinine 4.1 MG/DL (0.55-1.30) H Estimat Glomerular Filtration Rate 13.5 mL/min (>60) Glucose Level 261 MG/DL (74-106) H Hemoglobin A1c 8.7 % (4.3-6.0) H Calcium Level 7.5 MG/DL (8.5-10.1) L Iron Level 32 ug/dL (50-175) L Total Iron Binding Capacity 299 ug/dL (250-450) Percent Iron Saturation 11 % (15-50) L Unsaturated Iron Binding 267 ug/dL (112-346) Ferritin 953 NG/ML (8-388) H Total Bilirubin 1.1 MG/DL (0.2-1.0) H Direct Bilirubin 0.6 MG/DL (0.0-0.3) H Aspartate Amino Transf (AST/SGOT) 9337 U/L (15-37) H Alanine Aminotransferase (ALT/SGPT) 4549 U/L (12-78) H Alkaline Phosphatase 78 U/L (46-116) C-Reactive Protein, Quantitative 21.1 mg/dL (0.00-0.90) H Total Protein 6.8 G/DL (6.4-8.2) Albumin 2.2 G/DL (3.4-5.0) L Globulin 4.6 g/dL Albumin/Globulin Ratio 0.5 (1.0-2.7) L Triglycerides Level 199 MG/DL (30-150) H Cholesterol Level 148 MG/DL (< 200) LDL Cholesterol 67 mg/dL (<100) HDL Cholesterol 38 MG/DL (40-60) L Cholesterol/HDL Ratio 3.9 (3.3-4.4) Vitamin B12 Level 7750 PG/ML (193-986) H Folate 13.2 NG/ML (8.6-58.9) Thyroid Stimulating Hormone (TSH) 5.469 uiU/mL (0.358-3.740) Random Vancomycin Level 9.6 ug/mL Test 08/20/17 09:00 Lactic Acid Level 5.90 mmol/L (0.66-2.22) H DOMONIQUE DOBBS Aug 20, 2017 11:49
--- NOTE | 2017-08-20 12:26 | Diagnostic Imaging Report ---
Indication: Dyspnea Comparison: 08/19/2017 A single view chest radiograph was obtained. Findings: Severe worsening airspace disease demonstrated bilaterally, now quite extensive. Endotracheal tube is unchanged. Right jugular Dillan catheter has been introduced and is in good position with the tip in the SVC. Heart is enlarged and stable. IMPRESSION: Severe pulmonary edema
[2017-08-20] MEDS: Acetaminophen 650mg/20.3ml NG PRN ×2 (12:33→16:29)
--- NOTE | 2017-08-20 13:44 | General Progress Note ---
Progress Note Progress Note Surgery: full notes to follow for consult and procedure. called to evaluate patient. patient very hypotensive on max levophed. BP cuff readings with systolic < 50mmHg at times. urgently required arterial line for critical care management. patient seen and evaluated. chart reviewed. spoke with family/next of kin. left radial arterial line placed without complication. will follow. Stevan Romero Aug 20, 2017 13:44
--- NOTE | 2017-08-20 15:05 | Cardiac Electrophysiology PN ---
Assessment/Plan Assessment/Plan 1. Inferolateral ischemia with elevated troponin suggestive of non-ST elevation myocardial infarction. Trop 0.5 and 0.9. Elevated troponin could be due to the patient's renal failure and demand ischemia and respiratory failure. Echocardiogram pending 2. Recurrent SVT at rate 200 bpm. Did not terminated with 6 or 12 of adenosine but converted with the second dose of digoxin. Cant use BB or CA blockers for hypotension on Levophed.Check Dig level in am. 2. Severe hyperkalemia, potassium was 7.8 and went down to 5 after HD 3. Respiratory failure, on the ventilator. 4. Junctional rhythm. Keep the patient off any beta-destiney or calcium-channel destiney. 5.Septic shock. The patient is on broad-spectrum intravenous antibiotic as well as Levophed. 6. Morbid obesity. DW Dr Hernandez, Dr Malone, ICU night and day shifts Subjective Subjective Had recurrent SVT at rate of 200 bpm. Did not respond to 0.5 iv digoxin or 6 or 12 mg of IV adenosine. Second Digoxin converted her to SR. In ICU on vent getting HD.Underwent A line placement as well as BP was in 50s.On Levohed 30 mcg Objective Last 24 Hour Vital Signs Date Time Temp Pulse Resp B/P (MAP) Pulse Ox O2 Delivery O2 Flow Rate FiO2 08/20/17 14:45 83 24 77/48 100 Mechanical Ventilator 100 08/20/17 14:30 87 24 76/47 100 Mechanical Ventilator 100 08/20/17 14:15 88 24 73/49 100 Mechanical Ventilator 100 08/20/17 14:00 73/49 08/20/17 14:00 78 23 64/45 100 Mechanical Ventilator 100 08/20/17 13:45 82 22 62/40 100 Mechanical Ventilator 100 08/20/17 13:35 44/27 08/20/17 13:30 79 21 57/35 100 Mechanical Ventilator 100 08/20/17 13:23 77 26 100 08/20/17 13:15 79 21 54/33 100 Mechanical Ventilator 100 08/20/17 13:03 98.8 08/20/17 13:00 85 22 44/27 100 Mechanical Ventilator 100 08/20/17 13:00 44/27 08/20/17 12:45 86 19 62/39 99 Mechanical Ventilator 100 08/20/17 12:30 152 19 58/35 95 Mechanical Ventilator 100 08/20/17 12:15 171 22 57/42 94 Mechanical Ventilator 100 08/20/17 12:00 100.1 161 22 63/54 90 Mechanical Ventilator 90 08/20/17 12:00 57/42 08/20/17 11:55 100 08/20/17 11:45 185 22 54/44 90 Mechanical Ventilator 90 08/20/17 11:30 184 22 49/19 90 Mechanical Ventilator 90 08/20/17 11:28 194 08/20/17 11:15 190 22 46/25 90 Mechanical Ventilator 90 08/20/17 11:00 175 22 44/15 90 Mechanical Ventilator 90 08/20/17 11:00 46/19 08/20/17 10:45 181 22 44/22 90 Mechanical Ventilator 90 08/20/17 10:38 44/15 08/20/17 10:35 188 20 100 08/20/17 10:30 175 22 44/15 90 Mechanical Ventilator 90 08/20/17 10:15 175 24 80/39 90 Mechanical Ventilator 90 08/20/17 10:00 47/35 08/20/17 10:00 185 20 60/50 90 Mechanical Ventilator 90 08/20/17 09:45 194 20 48/13 90 Mechanical Ventilator 90 08/20/17 09:30 197 20 46/16 90 Mechanical Ventilator 90 08/20/17 09:28 201 21 100 08/20/17 09:15 198 20 57/26 90 Mechanical Ventilator 90 08/20/17 09:07 196 08/20/17 09:01 201 08/20/17 09:00 58/33 08/20/17 09:00 98.9 196 20 47/34 90 Mechanical Ventilator 90 08/20/17 08:53 201 08/20/17 08:47 204 08/20/17 08:45 201 20 49/18 90 Mechanical Ventilator 90 08/20/17 08:30 202 21 55/35 90 Mechanical Ventilator 90 08/20/17 08:15 203 21 55/35 90 Mechanical Ventilator 90 08/20/17 08:00 207 08/20/17 08:00 100 08/20/17 08:00 67/53 08/20/17 08:00 99.8 202 20 47/36 91 Mechanical Ventilator 100 08/20/17 07:45 202 21 45/30 89 Mechanical Ventilator 90 08/20/17 07:39 213 08/20/17 07:30 90 08/20/17 07:30 209 21 56/32 89 Mechanical Ventilator 90 08/20/17 07:28 214 23 100 08/20/17 07:08 70/33 08/20/17 07:00 207 21 61/35 91 Mechanical Ventilator 100 87 08/20/17 06:30 197 24 61/35 94 Mechanical Ventilator 100 87 08/20/17 06:00 204 24 44/18 97 Mechanical Ventilator 100 87 08/20/17 05:30 89 20 61/35 97 Mechanical Ventilator 100 87 08/20/17 05:00 89 18 54/36 97 Mechanical Ventilator 100 87 08/20/17 04:41 86 20 90 08/20/17 04:31 70/33 08/20/17 04:30 87 22 61/38 96 Mechanical Ventilator 100 87 08/20/17 04:00 87 08/20/17 04:00 100 08/20/17 04:00 98.3 91 27 57/38 95 Mechanical Ventilator 100 87 08/20/17 03:30 89 21 60/35 98 Mechanical Ventilator 100 87 08/20/17 03:28 90 20 90 08/20/17 03:00 87 20 62/34 98 Mechanical Ventilator 100 87 08/20/17 02:30 87 19 63/42 99 Mechanical Ventilator 100 87 08/20/17 02:08 70/33 08/20/17 02:00 85 23 52/17 99 Mechanical Ventilator 100 87 08/20/17 01:30 92 19 60/38 96 Mechanical Ventilator 100 87 08/20/17 01:12 84 20 100 08/20/17 01:00 87 19 56/37 94 Mechanical Ventilator 100 87 08/20/17 00:30 86 19 68/33 93 Mechanical Ventilator 100 87 08/20/17 00:00 100 08/20/17 00:00 98.9 85 20 61/38 95 Mechanical Ventilator 100 87 08/20/17 00:00 85 08/19/17 23:30 86 20 70/33 95 Mechanical Ventilator 100 87 08/19/17 23:27 50/28 08/19/17 23:00 89 22 69/43 95 Mechanical Ventilator 100 87 08/19/17 22:50 88 18 100 08/19/17 22:38 Mechanical Ventilator 100 08/19/17 22:30 99.3 87 24 71/40 Mechanical Ventilator 100 1/10/18 22:00 86 22 43/34 95 Mechanical Ventilator 100 08/19/17 21:30 88 20 62/25 95 Mechanical Ventilator 100 08/19/17 21:00 81 22 79/33 94 Mechanical Ventilator 100 08/19/17 20:51 88 18 100 08/19/17 20:30 84 22 72/36 96 Mechanical Ventilator 100 08/19/17 20:00 98.0 82 20 70/28 96 Mechanical Ventilator 100 08/19/17 20:00 100 08/19/17 20:00 86 08/19/17 19:30 85 20 52/43 96 Mechanical Ventilator 100 08/19/17 19:00 90 21 62/38 95 Endotracheal Tube 100 08/19/17 19:00 62/38 08/19/17 18:50 80 20 100 08/19/17 18:30 90 21 64/31 90 Endotracheal Tube 100 08/19/17 18:15 90 21 59/34 90 Endotracheal Tube 100 08/19/17 18:00 98.6 88 24 67/23 Mechanical Ventilator 100 08/19/17 18:00 89 21 77/48 90 Endotracheal Tube 100 08/19/17 18:00 Mechanical Ventilator 100 08/19/17 18:00 53/24 08/19/17 17:45 86 20 53/24 90 Endotracheal Tube 100 08/19/17 17:30 87 20 68/53 90 Endotracheal Tube 100 08/19/17 17:15 86 20 76/48 90 Endotracheal Tube 100 08/19/17 17:10 85 20 100 08/19/17 17:00 85 20 63/19 90 Endotracheal Tube 100 08/19/17 17:00 63/19 08/19/17 16:45 81 20 73/48 90 Endotracheal Tube 100 08/19/17 16:30 79 20 74/42 90 Endotracheal Tube 100 08/19/17 16:15 77 21 54/36 90 Endotracheal Tube 100 08/19/17 16:08 47/14 08/19/17 16:00 100 08/19/17 16:00 78 08/19/17 16:00 98.1 77 20 47/14 90 Endotracheal Tube 100 08/19/17 15:30 70 21 113/54 97 Endotracheal Tube 100 08/19/17 15:29 75 20 100 08/19/17 15:00 70 21 114/51 97 Endotracheal Tube 100 Intake and Output 08/19/17 08/20/17 19:00 07:00 Intake Total 2487.5 ml 0 ml Output Total 215 ml 60 ml Balance 2272.5 ml -60 ml Intake Oral 0 ml 0 ml IV Total 2487.5 ml Output Urine Total 215 ml 60 ml Hemodialysis UF 0 ml # Voids 100 Laboratory Tests Test 08/19/17 19:12 08/20/17 00:30 08/20/17 05:00 08/20/17 09:00 Lactic Acid Level 6.40 mmol/L (0.66-2.22) H 6.20 mmol/L (0.66-2.22) H 6.10 mmol/L (0.66-2.22) H 5.90 mmol/L (0.66-2.22) H Troponin I 0.576 ng/mL (0.000-0.056) 0.903 ng/mL (0.000-0.056) White Blood Count 15.1 K/UL (4.8-10.8) H Red Blood Count 4.31 M/UL (4.20-5.40) Hemoglobin 10.0 G/DL (12.0-16.0) L Hematocrit 35.1 % (37.0-47.0) L Mean Corpuscular Volume 81 FL (80-99) Mean Corpuscular Hemoglobin 23.1 PG (27.0-31.0) L Mean Corpuscular Hemoglobin Concent 28.4 G/DL (32.0-36.0) L Red Cell Distribution Width 18.0 % (11.6-14.8) H Platelet Count 155 K/UL (150-450) # Mean Platelet Volume 7.2 FL (6.5-10.1) Neutrophils (%) (Auto) 84.1 % (45.0-75.0) H Lymphocytes (%) (Auto) 10.3 % (20.0-45.0) L Monocytes (%) (Auto) 4.9 % (1.0-10.0) Eosinophils (%) (Auto) 0.0 % (0.0-3.0) Basophils (%) (Auto) 0.7 % (0.0-2.0) Reticulocyte Count 1.1 % (0.0-2.0) Prothrombin Time 18.7 SEC (9.30-11.50) H Prothromb Time International Ratio 1.8 (0.9-1.1) H Activated Partial Thromboplast Time 30 SEC (23-33) Sodium Level 136 MMOL/L (136-145) Potassium Level 5.0 MMOL/L (3.5-5.1) Chloride Level 93 MMOL/L (98-107) L Carbon Dioxide Level 29 MMOL/L (21-32) Anion Gap 15 mmol/L (5-15) Blood Urea Nitrogen 36 mg/dL (7-18) H Creatinine 4.1 MG/DL (0.55-1.30) H Estimat Glomerular Filtration Rate 13.5 mL/min (>60) Glucose Level 261 MG/DL (74-106) H Hemoglobin A1c 8.7 % (4.3-6.0) H Calcium Level 7.5 MG/DL (8.5-10.1) L Iron Level 32 ug/dL (50-175) L Total Iron Binding Capacity 299 ug/dL (250-450) Percent Iron Saturation 11 % (15-50) L Unsaturated Iron Binding 267 ug/dL (112-346) Ferritin 953 NG/ML (8-388) H Total Bilirubin 1.1 MG/DL (0.2-1.0) H Direct Bilirubin 0.6 MG/DL (0.0-0.3) H Aspartate Amino Transf (AST/SGOT) 9337 U/L (15-37) H Alanine Aminotransferase (ALT/SGPT) 4549 U/L (12-78) H Alkaline Phosphatase 78 U/L (46-116) C-Reactive Protein, Quantitative 21.1 mg/dL (0.00-0.90) H Total Protein 6.8 G/DL (6.4-8.2) Albumin 2.2 G/DL (3.4-5.0) L Globulin 4.6 g/dL Albumin/Globulin Ratio 0.5 (1.0-2.7) L Triglycerides Level 199 MG/DL (30-150) H Cholesterol Level 148 MG/DL (< 200) LDL Cholesterol 67 mg/dL (<100) HDL Cholesterol 38 MG/DL (40-60) L Cholesterol/HDL Ratio 3.9 (3.3-4.4) Vitamin B12 Level 7750 PG/ML (193-986) H Folate 13.2 NG/ML (8.6-58.9) Thyroid Stimulating Hormone (TSH) 5.469 uiU/mL (0.358-3.740) Random Vancomycin Level 9.6 ug/mL Test 08/20/17 11:07 08/20/17 13:47 Arterial Blood pH 7.222 (7.350-7.450) 7.330 (7.350-7.450) Arterial Blood Partial Pressure CO2 73.0 mmHg (35.0-45.0) *H 41.9 mmHg (35.0-45.0) Arterial Blood Partial Pressure O2 86.0 mmHg (75.0-100.0) 114.2 mmHg (75.0-100.0) H Arterial Blood HCO3 29.3 mmol/L (22.0-26.0) H 21.6 mmol/L (22.0-26.0) L Arterial Blood Oxygen Saturation 93.8 % (92.0-98.0) 97.1 % (92.0-98.0) Arterial Blood Base Excess 6.3 -4.1 Doroteo Test Positive Microbiology Date/Time Source Procedure Growth Status 08/19/17 08:45 Nasal Nares Influenza Types A,B Antigen (ZECHARIAH) - Final Complete Objective LUNGS: Decreased breath sounds.Orally intubated CARDIOVASCULAR: Regular S1 and S2 with no gallop. ABDOMEN: Morbidly obese. EXTREMITIES: A 2+ pitting edema. DIANDRA CUMMINGS Aug 20, 2017 15:05
--- NOTE | 2017-08-20 15:57 | Consultation ---
History of Present Illness General Date patient seen: Aug 20, 2017 Chief Complaint: Upper Respiratory Illness Referring physician: JENNIE COPELAND Reason for Consultation: arterial line Present Illness HPI 57F with multiple medical comorbidites presented from alf with worsening SOB and respiratory compromise. In ED decompensated and required urgent intubation. Currently in ICU for care and management. Receiving HD. On vent. Hypotensive with systolic in 50's on max levophed. Urgent arterial line necessary to guide critical care management of patient. surgery called to evaluate patient and for placement of arterial line. Allergies: Coded Allergies: No Known Allergies (Unverified , 06/01/17) Medication History Scheduled Clonidine Hcl* (Catapres*), 0.1 MG ORAL EVERY 6 HOURS, (Reported) Docusate Sodium* (Docusil*), 100 MG ORAL TWICE A DAY, (Reported) Gabapentin* (Gabapentin*), 600 MG ORAL QHS, (Reported) Glipizide (Glipizide Xl), 10 MG ORAL DAILY, (Reported) Insulin Glargine (Lantus), 21 SUBQ BID, (Reported) Lactobacillus Acidophilus (Acidophilus), 1 EACH PO BID, (Reported) Lidocaine HCl 2% Viscous (Lidocaine HCl 2% Viscous), 15 ML ORAL QID, (Reported) Pantoprazole* (Protonix*), 40 MG ORAL DAILY, (Reported) Ranitidine Hcl* (Zantac*), 150 MG ORAL TWICE A DAY, (Reported) Sitagliptin* (Januvia*), 100 MG ORAL DAILY, (Reported) Scheduled PRN Acetaminophen* (Tylenol Extra Strength*), 500 MG ORAL Q12HR PRN for Mild Pain/ Temp > 100.5, (Reported) Albuterol Sulfate* (Albuterol Sulfate Hhn*), 3 ML INH Q4H PRN for Shortness of Breath, (Reported) Diphenoxylate Hcl/Atropine (Lomotil Tablet), 2 TAB ORAL for Diarrhea, (Reported) Ipratropium [place] 0.5MG/2.5ML (Ipratropium [place] 0.5MG/2.5ML), 0.5 MG HHN Q6H PRN for Shortness of Breath, (Reported) Prochlorperazine (Compazine*), 10 MG ORAL Q8HR PRN for Nausea & Vomiting, ( Reported) Promethazine HCl (Promethegan), 25 MG RECTAL Q6H PRN for Nausea & Vomiting, ( Reported) Miscellaneous Medications Azelastine Hcl (Azelastine Hcl), 6 ML OP, (Reported) Capsaicin (Capsaicin), 42.5 GM TP, (Reported) Cyanocobalamin (Vitamin B-12) (Vitamin B12), 2,500 MCG PO, (Reported) Fluticasone Propionate (Flonase Allergy Relief), 9.9 ML NS, (Reported) Guar Gum (Nutrisource Fiber), 1 EACH PO, (Reported) Guar Gum (Nutrisource Fiber), 205 GM PO, (Reported) Insulin Regular, Human (Humulin R), 0 SUBQ, (Reported) Loratadine (Loratadine), 10 MG PO, (Reported) Saliva Substitution Combo No.9 (Biotene), 1,000 ML MM, (Reported) Patient History Limited by: medical condition History Provided By: Medical Record, PMD Healthcare decision maker Resuscitation status Full Code Advanced Directive on File No Past Medical/Surgical History Past Medical/Surgical History: (1) Transaminitis (2) Hyperkalemia (3) Acute respiratory acidosis (4) Multiple organ failure (5) Morbid obesity (6) Anemia (7) Shock liver (8) Non-STEMI (non-ST elevated myocardial infarction) (9) Acute respiratory failure with hypoxia and hypercarbia (10) lives at snf (11) GERD (gastroesophageal reflux disease) (12) Asthma (13) HTN (hypertension) (14) DM2 (diabetes mellitus, type 2) (15) Septic shock (16) Lactic acid acidosis (17) KASHIF (acute kidney injury) (18) Acute respiratory failure with hypoxia and hypercapnia (19) Acute toxic metabolic encephalopathy (20) Acute renal failure (ARF) Review of Systems ROS Narrative unable to obtain given patients current medical condition Physical Exam General Appearance: morbidly obese, other - on vent sedated Lines, tubes and drains: peripheral, dialysis access, vargas cath HEENT: atraumatic, mucous membranes moist Neck: normal inspection Respiratory/Chest: on vent Cardiovascular/Chest: other - low bp, can barely palpate pulse on max levophed Abdomen: normal bowel sounds, non tender, no organomegaly, no mass, other - morbidly obese Genitourinary/Rectal: vargas Extremities: moderate edema Skin Exam: warm/dry Neurologic: unresponsiveness Last 24 Hour Vital Signs Date Time Temp Pulse Resp B/P (MAP) Pulse Ox O2 Delivery O2 Flow Rate FiO2 08/20/17 15:45 84 24 104/51 100 Mechanical Ventilator 100 08/20/17 15:30 86 24 94/47 100 Mechanical Ventilator 100 08/20/17 15:18 85 26 100 08/20/17 15:15 85 24 98/48 100 Mechanical Ventilator 100 08/20/17 15:00 86 24 93/50 100 Mechanical Ventilator 100 08/20/17 15:00 93/50 08/20/17 14:45 83 24 77/48 100 Mechanical Ventilator 100 08/20/17 14:30 87 24 76/47 100 Mechanical Ventilator 100 08/20/17 14:15 88 24 73/49 100 Mechanical Ventilator 100 08/20/17 14:00 73/49 08/20/17 14:00 78 23 64/45 100 Mechanical Ventilator 100 08/20/17 13:45 82 22 62/40 100 Mechanical Ventilator 100 08/20/17 13:35 44/27 08/20/17 13:30 79 21 57/35 100 Mechanical Ventilator 100 08/20/17 13:23 77 26 100 08/20/17 13:15 79 21 54/33 100 Mechanical Ventilator 100 08/20/17 13:03 98.8 08/20/17 13:00 85 22 44/27 100 Mechanical Ventilator 100 08/20/17 13:00 44/27 08/20/17 12:45 86 19 62/39 99 Mechanical Ventilator 100 08/20/17 12:30 152 19 58/35 95 Mechanical Ventilator 100 08/20/17 12:15 171 22 57/42 94 Mechanical Ventilator 100 08/20/17 12:00 100.1 161 22 63/54 90 Mechanical Ventilator 90 08/20/17 12:00 57/42 08/20/17 11:55 100 08/20/17 11:45 185 22 54/44 90 Mechanical Ventilator 90 08/20/17 11:30 184 22 49/19 90 Mechanical Ventilator 90 08/20/17 11:28 194 08/20/17 11:15 190 22 46/25 90 Mechanical Ventilator 90 08/20/17 11:00 175 22 44/15 90 Mechanical Ventilator 90 08/20/17 11:00 46/19 08/20/17 10:45 181 22 44/22 90 Mechanical Ventilator 90 08/20/17 10:38 44/15 08/20/17 10:35 188 20 100 08/20/17 10:30 175 22 44/15 90 Mechanical Ventilator 90 08/20/17 10:15 175 24 80/39 90 Mechanical Ventilator 90 08/20/17 10:00 47/35 08/20/17 10:00 185 20 60/50 90 Mechanical Ventilator 90 08/20/17 09:45 194 20 48/13 90 Mechanical Ventilator 90 08/20/17 09:30 197 20 46/16 90 Mechanical Ventilator 90 08/20/17 09:28 201 21 100 08/20/17 09:15 198 20 57/26 90 Mechanical Ventilator 90 08/20/17 09:07 196 08/20/17 09:01 201 08/20/17 09:00 58/33 08/20/17 09:00 98.9 196 20 47/34 90 Mechanical Ventilator 90 08/20/17 08:53 201 08/20/17 08:47 204 08/20/17 08:45 201 20 49/18 90 Mechanical Ventilator 90 08/20/17 08:30 202 21 55/35 90 Mechanical Ventilator 90 08/20/17 08:15 203 21 55/35 90 Mechanical Ventilator 90 08/20/17 08:00 207 08/20/17 08:00 100 08/20/17 08:00 67/53 08/20/17 08:00 99.8 202 20 47/36 91 Mechanical Ventilator 100 08/20/17 07:45 202 21 45/30 89 Mechanical Ventilator 90 08/20/17 07:39 213 08/20/17 07:30 90 08/20/17 07:30 209 21 56/32 89 Mechanical Ventilator 90 08/20/17 07:28 214 23 100 08/20/17 07:08 70/33 08/20/17 07:00 207 21 61/35 91 Mechanical Ventilator 100 87 08/20/17 06:30 197 24 61/35 94 Mechanical Ventilator 100 87 08/20/17 06:00 204 24 44/18 97 Mechanical Ventilator 100 87 08/20/17 05:30 89 20 61/35 97 Mechanical Ventilator 100 87 08/20/17 05:00 89 18 54/36 97 Mechanical Ventilator 100 87 08/20/17 04:41 86 20 90 1/11/18 04:31 70/33 08/20/17 04:30 87 22 61/38 96 Mechanical Ventilator 100 87 08/20/17 04:00 87 08/20/17 04:00 100 08/20/17 04:00 98.3 91 27 57/38 95 Mechanical Ventilator 100 87 08/20/17 03:30 89 21 60/35 98 Mechanical Ventilator 100 87 08/20/17 03:28 90 20 90 08/20/17 03:00 87 20 62/34 98 Mechanical Ventilator 100 87 08/20/17 02:30 87 19 63/42 99 Mechanical Ventilator 100 87 08/20/17 02:08 70/33 08/20/17 02:00 85 23 52/17 99 Mechanical Ventilator 100 87 08/20/17 01:30 92 19 60/38 96 Mechanical Ventilator 100 87 08/20/17 01:12 84 20 100 08/20/17 01:00 87 19 56/37 94 Mechanical Ventilator 100 87 08/20/17 00:30 86 19 68/33 93 Mechanical Ventilator 100 87 08/20/17 00:00 100 08/20/17 00:00 98.9 85 20 61/38 95 Mechanical Ventilator 100 87 08/20/17 00:00 85 08/19/17 23:30 86 20 70/33 95 Mechanical Ventilator 100 87 08/19/17 23:27 50/28 08/19/17 23:00 89 22 69/43 95 Mechanical Ventilator 100 87 08/19/17 22:50 88 18 100 08/19/17 22:38 Mechanical Ventilator 100 08/19/17 22:30 99.3 87 24 71/40 Mechanical Ventilator 100 08/19/17 22:00 86 22 43/34 95 Mechanical Ventilator 100 08/19/17 21:30 88 20 62/25 95 Mechanical Ventilator 100 08/19/17 21:00 81 22 79/33 94 Mechanical Ventilator 100 08/19/17 20:51 88 18 100 08/19/17 20:30 84 22 72/36 96 Mechanical Ventilator 100 08/19/17 20:00 98.0 82 20 70/28 96 Mechanical Ventilator 100 08/19/17 20:00 100 08/19/17 20:00 86 08/19/17 19:30 85 20 52/43 96 Mechanical Ventilator 100 08/19/17 19:00 90 21 62/38 95 Endotracheal Tube 100 08/19/17 19:00 62/38 08/19/17 18:50 80 20 100 08/19/17 18:30 90 21 64/31 90 Endotracheal Tube 100 08/19/17 18:15 90 21 59/34 90 Endotracheal Tube 100 08/19/17 18:00 98.6 88 24 67/23 Mechanical Ventilator 100 08/19/17 18:00 89 21 77/48 90 Endotracheal Tube 100 08/19/17 18:00 Mechanical Ventilator 100 08/19/17 18:00 53/24 08/19/17 17:45 86 20 53/24 90 Endotracheal Tube 100 08/19/17 17:30 87 20 68/53 90 Endotracheal Tube 100 08/19/17 17:15 86 20 76/48 90 Endotracheal Tube 100 08/19/17 17:10 85 20 100 08/19/17 17:00 85 20 63/19 90 Endotracheal Tube 100 08/19/17 17:00 63/19 08/19/17 16:45 81 20 73/48 90 Endotracheal Tube 100 08/19/17 16:30 79 20 74/42 90 Endotracheal Tube 100 08/19/17 16:15 77 21 54/36 90 Endotracheal Tube 100 08/19/17 16:08 47/14 08/19/17 16:00 100 08/19/17 16:00 78 08/19/17 16:00 98.1 77 20 47/14 90 Endotracheal Tube 100 Intake and Output 08/19/17 08/20/17 19:00 07:00 Intake Total 2487.5 ml 0 ml Output Total 215 ml 60 ml Balance 2272.5 ml -60 ml Intake Oral 0 ml 0 ml IV Total 2487.5 ml Output Urine Total 215 ml 60 ml Hemodialysis UF 0 ml # Voids 100 Laboratory Tests Test 08/19/17 19:12 08/20/17 00:30 08/20/17 05:00 08/20/17 09:00 Lactic Acid Level 6.40 mmol/L (0.66-2.22) H 6.20 mmol/L (0.66-2.22) H 6.10 mmol/L (0.66-2.22) H 5.90 mmol/L (0.66-2.22) H Troponin I 0.576 ng/mL (0.000-0.056) 0.903 ng/mL (0.000-0.056) White Blood Count 15.1 K/UL (4.8-10.8) H Red Blood Count 4.31 M/UL (4.20-5.40) Hemoglobin 10.0 G/DL (12.0-16.0) L Hematocrit 35.1 % (37.0-47.0) L Mean Corpuscular Volume 81 FL (80-99) Mean Corpuscular Hemoglobin 23.1 PG (27.0-31.0) L Mean Corpuscular Hemoglobin Concent 28.4 G/DL (32.0-36.0) L Red Cell Distribution Width 18.0 % (11.6-14.8) H Platelet Count 155 K/UL (150-450) # Mean Platelet Volume 7.2 FL (6.5-10.1) Neutrophils (%) (Auto) 84.1 % (45.0-75.0) H Lymphocytes (%) (Auto) 10.3 % (20.0-45.0) L Monocytes (%) (Auto) 4.9 % (1.0-10.0) Eosinophils (%) (Auto) 0.0 % (0.0-3.0) Basophils (%) (Auto) 0.7 % (0.0-2.0) Reticulocyte Count 1.1 % (0.0-2.0) Prothrombin Time 18.7 SEC (9.30-11.50) H Prothromb Time International Ratio 1.8 (0.9-1.1) H Activated Partial Thromboplast Time 30 SEC (23-33) Sodium Level 136 MMOL/L (136-145) Potassium Level 5.0 MMOL/L (3.5-5.1) Chloride Level 93 MMOL/L (98-107) L Carbon Dioxide Level 29 MMOL/L (21-32) Anion Gap 15 mmol/L (5-15) Blood Urea Nitrogen 36 mg/dL (7-18) H Creatinine 4.1 MG/DL (0.55-1.30) H Estimat Glomerular Filtration Rate 13.5 mL/min (>60) Glucose Level 261 MG/DL (74-106) H Hemoglobin A1c 8.7 % (4.3-6.0) H Calcium Level 7.5 MG/DL (8.5-10.1) L Iron Level 32 ug/dL (50-175) L Total Iron Binding Capacity 299 ug/dL (250-450) Percent Iron Saturation 11 % (15-50) L Unsaturated Iron Binding 267 ug/dL (112-346) Ferritin 953 NG/ML (8-388) H Total Bilirubin 1.1 MG/DL (0.2-1.0) H Direct Bilirubin 0.6 MG/DL (0.0-0.3) H Aspartate Amino Transf (AST/SGOT) 9337 U/L (15-37) H Alanine Aminotransferase (ALT/SGPT) 4549 U/L (12-78) H Alkaline Phosphatase 78 U/L (46-116) C-Reactive Protein, Quantitative 21.1 mg/dL (0.00-0.90) H Total Protein 6.8 G/DL (6.4-8.2) Albumin 2.2 G/DL (3.4-5.0) L Globulin 4.6 g/dL Albumin/Globulin Ratio 0.5 (1.0-2.7) L Triglycerides Level 199 MG/DL (30-150) H Cholesterol Level 148 MG/DL (< 200) LDL Cholesterol 67 mg/dL (<100) HDL Cholesterol 38 MG/DL (40-60) L Cholesterol/HDL Ratio 3.9 (3.3-4.4) Vitamin B12 Level 7750 PG/ML (193-986) H Folate 13.2 NG/ML (8.6-58.9) Thyroid Stimulating Hormone (TSH) 5.469 uiU/mL (0.358-3.740) Random Vancomycin Level 9.6 ug/mL Test 08/20/17 11:07 08/20/17 13:47 Arterial Blood pH 7.222 (7.350-7.450) 7.330 (7.350-7.450) Arterial Blood Partial Pressure CO2 73.0 mmHg (35.0-45.0) *H 41.9 mmHg (35.0-45.0) Arterial Blood Partial Pressure O2 86.0 mmHg (75.0-100.0) 114.2 mmHg (75.0-100.0) H Arterial Blood HCO3 29.3 mmol/L (22.0-26.0) H 21.6 mmol/L (22.0-26.0) L Arterial Blood Oxygen Saturation 93.8 % (92.0-98.0) 97.1 % (92.0-98.0) Arterial Blood Base Excess 6.3 -4.1 Doroteo Test Positive Height (Feet): 5 Height (Inches): 3.00 Weight (Pounds): 460 Medications Current Medications Medications (Trade) Dose Ordered Sig/Felipe Route PRN Reason Start Time Stop Time Status Last Admin Dose Admin Acetaminophen (Tylenol) 650 mg Q6HR PRN NG Mild Pain/Temp > 100.1 08/20/17 13:00 09/19/17 12:59 08/20/17 12:33 Adenosine (Adenocard) 6 mg ONCE IVP 08/20/17 09:00 08/21/17 09:01 08/20/17 08:53 Adenosine (Adenocard) 12 mg NEEDED PRN IVP sudden SVT with rate >140 08/20/17 15:15 09/19/17 15:14 UNV Albuterol/ Ipratropium (Albuterol/ Ipratropium) 3 ml Q4H PRN HHN Shortness of Breath 08/19/17 10:30 08/24/17 10:29 Aspirin (ASA) 81 mg DAILY ORAL 08/20/17 09:00 09/19/17 08:59 08/20/17 09:43 Chlorhexidine Gluconate (Vicki-Hex 2%) 1 applic DAILY@2000 TOPIC 08/20/17 20:00 09/19/17 19:59 Dextrose (Dextrose 50%) STAT PRN IV Hypoglycemia 08/19/17 12:00 09/18/17 11:59 Epoetin Dario (Procrit (for ESRD on dialysis)) 10,000 units MON-WED-FRI SUBQ 08/21/17 21:00 09/20/17 20:59 Heparin Sodium (Porcine) (Heparin 5000 units/ml) 5,000 units EVERY 12 HOURS SUBQ 08/19/17 21:00 09/18/17 20:59 08/20/17 09:44 Insulin Aspart (NovoLOG) BEFORE MEALS AND HS SUBQ 08/19/17 12:30 09/18/17 12:29 08/20/17 11:27 Lorazepam (Ativan 2mg/ml 1ml) 2 mg Q4H PRN IV For Anxiety 08/19/17 12:00 08/26/17 11:59 Meropenem 500 mg/ Sodium Chloride 55 ml @ 110 mls/hr Q24H IVPB 08/19/17 16:00 08/24/17 15:59 08/19/17 16:09 Morphine Sulfate (Morphine Sulfate) 2 mg Q4H PRN IVP Moderate Pain (Pain Scale 4-6) 08/19/17 10:30 08/26/17 10:29 Morphine Sulfate (Morphine Sulfate) 4 mg Q4H PRN IVP For Pain Scale 7-10 08/19/17 12:00 08/26/17 11:59 Nitroglycerin (Ntg) 0.4 mg Q5MIN X 3 DOSES PRN SL Prn Chest Pain 08/19/17 12:00 09/18/17 11:59 Norepinephrine Bitartrate 4 mg/ Dextrose 250 ml @ 0 mls/hr Q24H IV 08/19/17 14:00 09/18/17 13:59 08/20/17 13:35 Ondansetron HCl (Zofran) 4 mg Q6H PRN IVP Nausea & Vomiting 08/19/17 12:00 09/18/17 11:59 Pantoprazole (Protonix) 40 mg DAILY IV 08/20/17 09:00 09/19/17 08:59 08/20/17 09:43 Polyethylene Glycol (Miralax) 17 gm DAILYPRN PRN ORAL Constipation 08/19/17 10:30 09/18/17 10:29 Sodium Chloride 1,000 ml @ 100 mls/hr Q10H IVLG 08/20/17 12:00 09/19/17 11:59 08/20/17 02:10 Temazepam (Restoril) 15 mg HSPRN PRN ORAL Insomnia 08/19/17 12:00 08/26/17 11:59 Vancomycin HCl (Vanco rx to dose) 1 ea DAILYPRN PRN MISC RX TO DOSE PROTOCL 08/19/17 13:00 09/18/17 12:59 Assessment/Plan Problem List: (1) Septic shock Assessment & Plan: 57F in septic shock. multiple comorbidities. respiratory failure on vent. hypotensive with systolics in 50's with barly palpable pulses. on max levophed. urgent arterial line recommended and indicated for critical care management. spoke with family and consent obtained. -will place arterial line at bedside prasad. -thank you for this consultation. will follow with recs and for line management. ICD Codes: A41.9 - Sepsis, unspecified organism; R65.21 - Severe sepsis with septic shock SNOMED: [id number] Status: not improved Stevan Romero Aug 20, 2017 15:57
--- NOTE | 2017-08-20 16:05 | Operative Note - PDOC ---
Operative Note Operative Note Date of Operation/Procedure: Aug 20, 2017 Pre-op Diagnosis: septic shock Procedure: left radial arterial line placement Post-op Diagnosis: same as pre-op Surgeon: beverly Anesthesia: moderate sedation Specimen: none Complications: none Condition: unstable Fluids: n/a Estimated Blood Loss: minimal Drains: none Implant(s) used?: Yes - left radial arterial line arrow Indications for Procedure 57F septic shock in ICU. hypotensive on max levophed. SBP in 50's. urgent arterial line placement recommended and indicated for management of critical care patient. risks, benefits, and alternatives discussed with POA and consent obtained. Description of Procedure patient made comfortable at bedside in ICU. left wrist evaluated and very faint pulse can be palpated. left wrist prepped and draped in standard surgical fashion. time out taken. sterile procedures conducted. using a Arrow radial arterial line kit the left radial artery was obtained with good flow back into catheter. wire was passed without resistance and catheter inserted over dominguez. radial arterial line was placed to monitor and good wave form identified. line flushed and functional. site cleaned and dressings applied. patient tolerated procedure. Stevan Romero Aug 20, 2017 16:05
--- NOTE | 2017-08-20 16:57 | GI Progress Note ---
Assessment/Plan Problems: (1) Shock liver ICD Codes: K72.00 - Acute and subacute hepatic failure without coma SNOMED: 387673191 (2) Anemia ICD Codes: D64.9 - Anemia, unspecified SNOMED: 335792482 (3) Morbid obesity ICD Codes: E66.01 - Morbid (severe) obesity due to excess calories SNOMED: 661267421, 11206508463046 (4) Multiple organ failure SNOMED: 03905036 (5) Transaminitis ICD Codes: R74.0 - Nonspecific elevation of levels of transaminase and lactic acid dehydrogenase [LDH] SNOMED: 799202008, 293973223 (6) Septic shock ICD Codes: A41.9 - Sepsis, unspecified organism; R65.21 - Severe sepsis with septic shock SNOMED: 92684802 (7) DM2 (diabetes mellitus, type 2) ICD Codes: E11.9 - Type 2 diabetes mellitus without complications SNOMED: 44756943 (8) GERD (gastroesophageal reflux disease) ICD Codes: K21.9 - Gastro-esophageal reflux disease without esophagitis SNOMED: 923584697 Status: stable Status Narrative Discussed with Dr. Cordero. Assessment/Plan defer GI procedures at this time NGT NPO + IVFs mucomyst given in ED transaminitis due to shock liver >> trend anemia work up OB stool r/o GI bleed monitor H&H, prn transfusions ppi abx fu labs pt for HD today Subjective Subjective limited Objective Last 24 Hour Vital Signs Date Time Temp Pulse Resp B/P (MAP) Pulse Ox O2 Delivery O2 Flow Rate FiO2 08/20/17 16:15 84 21 150/67 100 Mechanical Ventilator 100 08/20/17 16:00 100.3 84 24 115/48 100 Mechanical Ventilator 100 08/20/17 15:57 87/46 08/20/17 15:45 84 24 104/51 100 Mechanical Ventilator 100 08/20/17 15:30 86 24 94/47 100 Mechanical Ventilator 100 08/20/17 15:18 85 26 100 08/20/17 15:15 85 24 98/48 100 Mechanical Ventilator 100 08/20/17 15:00 86 24 93/50 100 Mechanical Ventilator 100 08/20/17 15:00 93/50 08/20/17 14:45 83 24 77/48 100 Mechanical Ventilator 100 08/20/17 14:30 87 24 76/47 100 Mechanical Ventilator 100 08/20/17 14:15 88 24 73/49 100 Mechanical Ventilator 100 08/20/17 14:00 97.2 81 32 62/38 Mechanical Ventilator 90 08/20/17 14:00 Mechanical Ventilator 90 08/20/17 14:00 73/49 08/20/17 14:00 78 23 64/45 100 Mechanical Ventilator 100 08/20/17 13:45 82 22 62/40 100 Mechanical Ventilator 100 08/20/17 13:35 44/27 08/20/17 13:30 79 21 57/35 100 Mechanical Ventilator 100 08/20/17 13:23 77 26 100 08/20/17 13:15 79 21 54/33 100 Mechanical Ventilator 100 08/20/17 13:03 98.8 08/20/17 13:00 85 22 44/27 100 Mechanical Ventilator 100 08/20/17 13:00 44/27 08/20/17 12:45 86 19 62/39 99 Mechanical Ventilator 100 08/20/17 12:30 152 19 58/35 95 Mechanical Ventilator 100 08/20/17 12:15 171 22 57/42 94 Mechanical Ventilator 100 08/20/17 12:00 100.1 161 22 63/54 90 Mechanical Ventilator 90 08/20/17 12:00 57/42 08/20/17 11:55 100 08/20/17 11:45 185 22 54/44 90 Mechanical Ventilator 90 08/20/17 11:30 184 22 49/19 90 Mechanical Ventilator 90 08/20/17 11:28 194 08/20/17 11:15 190 22 46/25 90 Mechanical Ventilator 90 08/20/17 11:00 175 22 44/15 90 Mechanical Ventilator 90 08/20/17 11:00 46/19 08/20/17 10:45 181 22 44/22 90 Mechanical Ventilator 90 08/20/17 10:38 44/15 08/20/17 10:35 188 20 100 08/20/17 10:30 175 22 44/15 90 Mechanical Ventilator 90 08/20/17 10:15 175 24 80/39 90 Mechanical Ventilator 90 08/20/17 10:00 47/35 08/20/17 10:00 185 20 60/50 90 Mechanical Ventilator 90 08/20/17 09:45 194 20 48/13 90 Mechanical Ventilator 90 08/20/17 09:30 197 20 46/16 90 Mechanical Ventilator 90 08/20/17 09:28 201 21 100 08/20/17 09:15 198 20 57/26 90 Mechanical Ventilator 90 08/20/17 09:07 207 08/20/17 09:07 196 08/20/17 09:01 201 08/20/17 09:00 58/33 08/20/17 09:00 98.9 196 20 47/34 90 Mechanical Ventilator 90 08/20/17 08:53 201 08/20/17 08:47 204 08/20/17 08:45 201 20 49/18 90 Mechanical Ventilator 90 08/20/17 08:30 202 21 55/35 90 Mechanical Ventilator 90 08/20/17 08:15 203 21 55/35 90 Mechanical Ventilator 90 08/20/17 08:00 207 08/20/17 08:00 100 08/20/17 08:00 67/53 08/20/17 08:00 99.8 202 20 47/36 91 Mechanical Ventilator 100 08/20/17 07:45 202 21 45/30 89 Mechanical Ventilator 90 08/20/17 07:39 213 08/20/17 07:30 90 08/20/17 07:30 209 21 56/32 89 Mechanical Ventilator 90 08/20/17 07:28 214 23 100 08/20/17 07:08 70/33 08/20/17 07:00 207 21 61/35 91 Mechanical Ventilator 100 87 08/20/17 06:30 197 24 61/35 94 Mechanical Ventilator 100 87 08/20/17 06:00 204 24 44/18 97 Mechanical Ventilator 100 87 08/20/17 05:30 89 20 61/35 97 Mechanical Ventilator 100 87 08/20/17 05:00 89 18 54/36 97 Mechanical Ventilator 100 87 08/20/17 04:41 86 20 90 08/20/17 04:31 70/33 08/20/17 04:30 87 22 61/38 96 Mechanical Ventilator 100 87 08/20/17 04:00 87 08/20/17 04:00 100 08/20/17 04:00 98.3 91 27 57/38 95 Mechanical Ventilator 100 87 08/20/17 03:30 89 21 60/35 98 Mechanical Ventilator 100 87 08/20/17 03:28 90 20 90 08/20/17 03:00 87 20 62/34 98 Mechanical Ventilator 100 87 08/20/17 02:30 87 19 63/42 99 Mechanical Ventilator 100 87 08/20/17 02:08 70/33 08/20/17 02:00 85 23 52/17 99 Mechanical Ventilator 100 87 08/20/17 01:30 92 19 60/38 96 Mechanical Ventilator 100 87 08/20/17 01:12 84 20 100 08/20/17 01:00 87 19 56/37 94 Mechanical Ventilator 100 87 08/20/17 00:30 86 19 68/33 93 Mechanical Ventilator 100 87 08/20/17 00:00 100 08/20/17 00:00 98.9 85 20 61/38 95 Mechanical Ventilator 100 87 08/20/17 00:00 85 08/19/17 23:30 86 20 70/33 95 Mechanical Ventilator 100 87 08/19/17 23:27 50/28 08/19/17 23:00 89 22 69/43 95 Mechanical Ventilator 100 87 08/19/17 22:50 88 18 100 08/19/17 22:38 Mechanical Ventilator 100 08/19/17 22:30 99.3 87 24 71/40 Mechanical Ventilator 100 08/19/17 22:00 86 22 43/34 95 Mechanical Ventilator 100 08/19/17 21:30 88 20 62/25 95 Mechanical Ventilator 100 08/19/17 21:00 81 22 79/33 94 Mechanical Ventilator 100 08/19/17 20:51 88 18 100 08/19/17 20:30 84 22 72/36 96 Mechanical Ventilator 100 08/19/17 20:00 98.0 82 20 70/28 96 Mechanical Ventilator 100 08/19/17 20:00 100 08/19/17 20:00 86 08/19/17 19:30 85 20 52/43 96 Mechanical Ventilator 100 08/19/17 19:00 90 21 62/38 95 Endotracheal Tube 100 08/19/17 19:00 62/38 08/19/17 18:50 80 20 100 08/19/17 18:30 90 21 64/31 90 Endotracheal Tube 100 08/19/17 18:15 90 21 59/34 90 Endotracheal Tube 100 08/19/17 18:00 98.6 88 24 67/23 Mechanical Ventilator 100 08/19/17 18:00 89 21 77/48 90 Endotracheal Tube 100 08/19/17 18:00 Mechanical Ventilator 100 08/19/17 18:00 53/24 08/19/17 17:45 86 20 53/24 90 Endotracheal Tube 100 08/19/17 17:30 87 20 68/53 90 Endotracheal Tube 100 08/19/17 17:15 86 20 76/48 90 Endotracheal Tube 100 08/19/17 17:10 85 20 100 08/19/17 17:00 85 20 63/19 90 Endotracheal Tube 100 08/19/17 17:00 63/19 Intake and Output 08/19/17 08/20/17 19:00 07:00 Intake Total 2487.5 ml 0 ml Output Total 215 ml 60 ml Balance 2272.5 ml -60 ml Intake Oral 0 ml 0 ml IV Total 2487.5 ml Output Urine Total 215 ml 60 ml Hemodialysis UF 0 ml # Voids 100 Laboratory Tests Test 08/19/17 19:12 08/20/17 00:30 08/20/17 05:00 08/20/17 09:00 Lactic Acid Level 6.40 mmol/L (0.66-2.22) H 6.20 mmol/L (0.66-2.22) H 6.10 mmol/L (0.66-2.22) H 5.90 mmol/L (0.66-2.22) H Troponin I 0.576 ng/mL (0.000-0.056) 0.903 ng/mL (0.000-0.056) White Blood Count 15.1 K/UL (4.8-10.8) H Red Blood Count 4.31 M/UL (4.20-5.40) Hemoglobin 10.0 G/DL (12.0-16.0) L Hematocrit 35.1 % (37.0-47.0) L Mean Corpuscular Volume 81 FL (80-99) Mean Corpuscular Hemoglobin 23.1 PG (27.0-31.0) L Mean Corpuscular Hemoglobin Concent 28.4 G/DL (32.0-36.0) L Red Cell Distribution Width 18.0 % (11.6-14.8) H Platelet Count 155 K/UL (150-450) # Mean Platelet Volume 7.2 FL (6.5-10.1) Neutrophils (%) (Auto) 84.1 % (45.0-75.0) H Lymphocytes (%) (Auto) 10.3 % (20.0-45.0) L Monocytes (%) (Auto) 4.9 % (1.0-10.0) Eosinophils (%) (Auto) 0.0 % (0.0-3.0) Basophils (%) (Auto) 0.7 % (0.0-2.0) Reticulocyte Count 1.1 % (0.0-2.0) Prothrombin Time 18.7 SEC (9.30-11.50) H Prothromb Time International Ratio 1.8 (0.9-1.1) H Activated Partial Thromboplast Time 30 SEC (23-33) Sodium Level 136 MMOL/L (136-145) Potassium Level 5.0 MMOL/L (3.5-5.1) Chloride Level 93 MMOL/L (98-107) L Carbon Dioxide Level 29 MMOL/L (21-32) Anion Gap 15 mmol/L (5-15) Blood Urea Nitrogen 36 mg/dL (7-18) H Creatinine 4.1 MG/DL (0.55-1.30) H Estimat Glomerular Filtration Rate 13.5 mL/min (>60) Glucose Level 261 MG/DL (74-106) H Hemoglobin A1c 8.7 % (4.3-6.0) H Calcium Level 7.5 MG/DL (8.5-10.1) L Iron Level 32 ug/dL (50-175) L Total Iron Binding Capacity 299 ug/dL (250-450) Percent Iron Saturation 11 % (15-50) L Unsaturated Iron Binding 267 ug/dL (112-346) Ferritin 953 NG/ML (8-388) H Total Bilirubin 1.1 MG/DL (0.2-1.0) H Direct Bilirubin 0.6 MG/DL (0.0-0.3) H Aspartate Amino Transf (AST/SGOT) 9337 U/L (15-37) H Alanine Aminotransferase (ALT/SGPT) 4549 U/L (12-78) H Alkaline Phosphatase 78 U/L (46-116) C-Reactive Protein, Quantitative 21.1 mg/dL (0.00-0.90) H Total Protein 6.8 G/DL (6.4-8.2) Albumin 2.2 G/DL (3.4-5.0) L Globulin 4.6 g/dL Albumin/Globulin Ratio 0.5 (1.0-2.7) L Triglycerides Level 199 MG/DL (30-150) H Cholesterol Level 148 MG/DL (< 200) LDL Cholesterol 67 mg/dL (<100) HDL Cholesterol 38 MG/DL (40-60) L Cholesterol/HDL Ratio 3.9 (3.3-4.4) Vitamin B12 Level 7750 PG/ML (193-986) H Folate 13.2 NG/ML (8.6-58.9) Thyroid Stimulating Hormone (TSH) 5.469 uiU/mL (0.358-3.740) Random Vancomycin Level 9.6 ug/mL Test 08/20/17 11:07 08/20/17 13:47 Arterial Blood pH 7.222 (7.350-7.450) 7.330 (7.350-7.450) Arterial Blood Partial Pressure CO2 73.0 mmHg (35.0-45.0) *H 41.9 mmHg (35.0-45.0) Arterial Blood Partial Pressure O2 86.0 mmHg (75.0-100.0) 114.2 mmHg (75.0-100.0) H Arterial Blood HCO3 29.3 mmol/L (22.0-26.0) H 21.6 mmol/L (22.0-26.0) L Arterial Blood Oxygen Saturation 93.8 % (92.0-98.0) 97.1 % (92.0-98.0) Arterial Blood Base Excess 6.3 -4.1 Doroteo Test Positive Height (Feet): 5 Height (Inches): 3.00 Weight (Pounds): 460 General Appearance: morbidly obese Cardiovascular: normal rate Respiratory/Chest: other - [facility] vent Abdominal Exam: soft Caren Nixon N.P. Aug 20, 2017 16:57
[2017-08-20] MEDS: Meropenem 500 MG in NS 55 ML IVPB SCH (17:26)
[2017-08-20] MEDS ORDERED: Adenosine 6mg/2ml Inj IVP PRN ×2 (19:15)
[2017-08-20] MEDS: Dyna-Hex 2% Top Sol 2oz TOPIC SCH (19:39)
--- NOTE | 2017-08-20 21:03 | Infectious Diseases Prog Note ---
Assessment/Plan Assessment/Plan Full noted dictate: A) 1) sepsis, shock, leukocytosis, fevers, ? pna vs chf 2) pmh noted 3) allergies - negative P) 1) meropenem and vancomycin 2) check cultures, labs and chest x-ray 3) thank you Subjective Allergies: Coded Allergies: No Known Allergies (Unverified , 06/01/17) Objective Vital Signs Last 24 Hour Vital Signs Date Time Temp Pulse Resp B/P (MAP) Pulse Ox O2 Delivery O2 Flow Rate FiO2 08/20/17 20:00 83 26 100/51 97 Mechanical Ventilator 70 08/20/17 20:00 83 08/20/17 20:00 70 08/20/17 20:00 100/51 08/20/17 19:30 99.7 82 26 100/54 97 Mechanical Ventilator 70 08/20/17 19:27 111/86 08/20/17 19:12 87 26 70 08/20/17 19:00 86 20 110/57 97 Mechanical Ventilator 70 08/20/17 19:00 110/57 08/20/17 18:45 86 26 113/57 100 Mechanical Ventilator 70 08/20/17 18:30 86 26 111/86 100 Mechanical Ventilator 70 08/20/17 18:00 111/86 08/20/17 18:00 86 26 111/86 100 Mechanical Ventilator 70 08/20/17 18:00 70 08/20/17 17:45 85 26 104/51 100 Mechanical Ventilator 80 08/20/17 17:37 Mechanical Ventilator 90 08/20/17 17:35 98.4 85 32 121/56 Mechanical Ventilator 90 08/20/17 17:30 85 26 86/43 100 Mechanical Ventilator 100 08/20/17 17:20 83 26 80 08/20/17 17:15 86 26 100/49 100 Mechanical Ventilator 100 08/20/17 17:00 99.0 08/20/17 17:00 121/56 08/20/17 17:00 85 20 121/65 100 Mechanical Ventilator 100 08/20/17 16:59 99.3 08/20/17 16:45 84 21 158/68 100 Mechanical Ventilator 100 08/20/17 16:45 84 21 150/67 100 Mechanical Ventilator 100 08/20/17 16:30 84 21 150/67 100 Mechanical Ventilator 100 08/20/17 16:15 84 21 150/67 100 Mechanical Ventilator 100 08/20/17 16:00 100 08/20/17 16:00 100.3 84 24 115/48 100 Mechanical Ventilator 100 08/20/17 16:00 84 08/20/17 16:00 115/48 08/20/17 15:57 87/46 08/20/17 15:45 84 24 104/51 100 Mechanical Ventilator 100 08/20/17 15:30 86 24 94/47 100 Mechanical Ventilator 100 08/20/17 15:18 85 26 100 08/20/17 15:15 85 24 98/48 100 Mechanical Ventilator 100 08/20/17 15:00 86 24 93/50 100 Mechanical Ventilator 100 08/20/17 15:00 93/50 08/20/17 14:52 84 08/20/17 14:45 83 24 77/48 100 Mechanical Ventilator 100 08/20/17 14:30 87 24 76/47 100 Mechanical Ventilator 100 08/20/17 14:15 88 24 73/49 100 Mechanical Ventilator 100 08/20/17 14:00 97.2 81 32 62/38 Mechanical Ventilator 90 08/20/17 14:00 Mechanical Ventilator 90 08/20/17 14:00 73/49 08/20/17 14:00 78 23 64/45 100 Mechanical Ventilator 100 08/20/17 13:45 82 22 62/40 100 Mechanical Ventilator 100 08/20/17 13:35 44/27 08/20/17 13:30 79 21 57/35 100 Mechanical Ventilator 100 08/20/17 13:23 77 26 100 08/20/17 13:15 79 21 54/33 100 Mechanical Ventilator 100 08/20/17 13:00 85 22 44/27 100 Mechanical Ventilator 100 08/20/17 13:00 44/27 08/20/17 12:45 86 19 62/39 99 Mechanical Ventilator 100 08/20/17 12:43 81 08/20/17 12:30 152 19 58/35 95 Mechanical Ventilator 100 08/20/17 12:15 171 22 57/42 94 Mechanical Ventilator 100 08/20/17 12:00 100.1 161 22 63/54 90 Mechanical Ventilator 90 08/20/17 12:00 57/42 08/20/17 11:55 100 08/20/17 11:45 185 22 54/44 90 Mechanical Ventilator 90 08/20/17 11:30 184 22 49/19 90 Mechanical Ventilator 90 08/20/17 11:28 194 08/20/17 11:15 190 22 46/25 90 Mechanical Ventilator 90 08/20/17 11:00 175 22 44/15 90 Mechanical Ventilator 90 08/20/17 11:00 46/19 08/20/17 10:45 181 22 44/22 90 Mechanical Ventilator 90 08/20/17 10:38 44/15 08/20/17 10:35 188 20 100 08/20/17 10:30 175 22 44/15 90 Mechanical Ventilator 90 08/20/17 10:15 175 24 80/39 90 Mechanical Ventilator 90 08/20/17 10:00 47/35 08/20/17 10:00 185 20 60/50 90 Mechanical Ventilator 90 08/20/17 09:45 194 20 48/13 90 Mechanical Ventilator 90 08/20/17 09:30 197 20 46/16 90 Mechanical Ventilator 90 08/20/17 09:28 201 21 100 08/20/17 09:15 198 20 57/26 90 Mechanical Ventilator 90 08/20/17 09:07 207 08/20/17 09:07 196 08/20/17 09:01 201 08/20/17 09:00 58/33 08/20/17 09:00 98.9 196 20 47/34 90 Mechanical Ventilator 90 08/20/17 08:53 201 08/20/17 08:47 204 08/20/17 08:45 201 20 49/18 90 Mechanical Ventilator 90 08/20/17 08:30 202 21 55/35 90 Mechanical Ventilator 90 08/20/17 08:15 203 21 55/35 90 Mechanical Ventilator 90 08/20/17 08:00 207 08/20/17 08:00 100 08/20/17 08:00 67/53 08/20/17 08:00 99.8 202 20 47/36 91 Mechanical Ventilator 100 08/20/17 07:45 202 21 45/30 89 Mechanical Ventilator 90 08/20/17 07:39 213 08/20/17 07:30 90 08/20/17 07:30 209 21 56/32 89 Mechanical Ventilator 90 08/20/17 07:28 214 23 100 08/20/17 07:08 70/33 08/20/17 07:00 207 21 61/35 91 Mechanical Ventilator 100 87 08/20/17 06:30 197 24 61/35 94 Mechanical Ventilator 100 87 08/20/17 06:00 204 24 44/18 97 Mechanical Ventilator 100 87 08/20/17 05:30 89 20 61/35 97 Mechanical Ventilator 100 87 08/20/17 05:00 89 18 54/36 97 Mechanical Ventilator 100 87 08/20/17 04:41 86 20 90 08/20/17 04:31 70/33 08/20/17 04:30 87 22 61/38 96 Mechanical Ventilator 100 87 08/20/17 04:00 87 08/20/17 04:00 100 08/20/17 04:00 98.3 91 27 57/38 95 Mechanical Ventilator 100 87 08/20/17 03:30 89 21 60/35 98 Mechanical Ventilator 100 87 08/20/17 03:28 90 20 90 08/20/17 03:00 87 20 62/34 98 Mechanical Ventilator 100 87 08/20/17 02:30 87 19 63/42 99 Mechanical Ventilator 100 87 08/20/17 02:08 70/33 08/20/17 02:00 85 23 52/17 99 Mechanical Ventilator 100 87 08/20/17 01:30 92 19 60/38 96 Mechanical Ventilator 100 87 08/20/17 01:12 84 20 100 08/20/17 01:00 87 19 56/37 94 Mechanical Ventilator 100 87 08/20/17 00:30 86 19 68/33 93 Mechanical Ventilator 100 87 08/20/17 00:00 100 08/20/17 00:00 98.9 85 20 61/38 95 Mechanical Ventilator 100 87 08/20/17 00:00 85 08/19/17 23:30 86 20 70/33 95 Mechanical Ventilator 100 87 08/19/17 23:27 50/28 08/19/17 23:00 89 22 69/43 95 Mechanical Ventilator 100 87 08/19/17 22:50 88 18 100 08/19/17 22:38 Mechanical Ventilator 100 08/19/17 22:30 99.3 87 24 71/40 Mechanical Ventilator 100 08/19/17 22:00 86 22 43/34 95 Mechanical Ventilator 100 08/19/17 21:30 88 20 62/25 95 Mechanical Ventilator 100 Height (Feet): 5 Height (Inches): 3.00 Weight (Pounds): 460 Microbiology Date/Time Source Procedure Growth Status 08/19/17 08:45 Nasal Nares Influenza Types A,B Antigen (ZECHARIAH) - Final Complete Laboratory Tests Test 08/20/17 00:30 08/20/17 05:00 08/20/17 09:00 08/20/17 11:07 Lactic Acid Level 6.20 mmol/L (0.66-2.22) H 6.10 mmol/L (0.66-2.22) H 5.90 mmol/L (0.66-2.22) H White Blood Count 15.1 K/UL (4.8-10.8) H Red Blood Count 4.31 M/UL (4.20-5.40) Hemoglobin 10.0 G/DL (12.0-16.0) L Hematocrit 35.1 % (37.0-47.0) L Mean Corpuscular Volume 81 FL (80-99) Mean Corpuscular Hemoglobin 23.1 PG (27.0-31.0) L Mean Corpuscular Hemoglobin Concent 28.4 G/DL (32.0-36.0) L Red Cell Distribution Width 18.0 % (11.6-14.8) H Platelet Count 155 K/UL (150-450) # Mean Platelet Volume 7.2 FL (6.5-10.1) Neutrophils (%) (Auto) 84.1 % (45.0-75.0) H Lymphocytes (%) (Auto) 10.3 % (20.0-45.0) L Monocytes (%) (Auto) 4.9 % (1.0-10.0) Eosinophils (%) (Auto) 0.0 % (0.0-3.0) Basophils (%) (Auto) 0.7 % (0.0-2.0) Reticulocyte Count 1.1 % (0.0-2.0) Prothrombin Time 18.7 SEC (9.30-11.50) H Prothromb Time International Ratio 1.8 (0.9-1.1) H Activated Partial Thromboplast Time 30 SEC (23-33) Sodium Level 136 MMOL/L (136-145) Potassium Level 5.0 MMOL/L (3.5-5.1) Chloride Level 93 MMOL/L (98-107) L Carbon Dioxide Level 29 MMOL/L (21-32) Anion Gap 15 mmol/L (5-15) Blood Urea Nitrogen 36 mg/dL (7-18) H Creatinine 4.1 MG/DL (0.55-1.30) H Estimat Glomerular Filtration Rate 13.5 mL/min (>60) Glucose Level 261 MG/DL (74-106) H Hemoglobin A1c 8.7 % (4.3-6.0) H Calcium Level 7.5 MG/DL (8.5-10.1) L Iron Level 32 ug/dL (50-175) L Total Iron Binding Capacity 299 ug/dL (250-450) Percent Iron Saturation 11 % (15-50) L Unsaturated Iron Binding 267 ug/dL (112-346) Ferritin 953 NG/ML (8-388) H Total Bilirubin 1.1 MG/DL (0.2-1.0) H Direct Bilirubin 0.6 MG/DL (0.0-0.3) H Aspartate Amino Transf (AST/SGOT) 9337 U/L (15-37) H Alanine Aminotransferase (ALT/SGPT) 4549 U/L (12-78) H Alkaline Phosphatase 78 U/L (46-116) Troponin I 0.903 ng/mL (0.000-0.056) C-Reactive Protein, Quantitative 21.1 mg/dL (0.00-0.90) H Total Protein 6.8 G/DL (6.4-8.2) Albumin 2.2 G/DL (3.4-5.0) L Globulin 4.6 g/dL Albumin/Globulin Ratio 0.5 (1.0-2.7) L Triglycerides Level 199 MG/DL (30-150) H Cholesterol Level 148 MG/DL (< 200) LDL Cholesterol 67 mg/dL (<100) HDL Cholesterol 38 MG/DL (40-60) L Cholesterol/HDL Ratio 3.9 (3.3-4.4) Vitamin B12 Level 7750 PG/ML (193-986) H Folate 13.2 NG/ML (8.6-58.9) Thyroid Stimulating Hormone (TSH) 5.469 uiU/mL (0.358-3.740) Random Vancomycin Level 9.6 ug/mL Arterial Blood pH 7.222 (7.350-7.450) Arterial Blood Partial Pressure CO2 73.0 mmHg (35.0-45.0) *H Arterial Blood Partial Pressure O2 86.0 mmHg (75.0-100.0) Arterial Blood HCO3 29.3 mmol/L (22.0-26.0) H Arterial Blood Oxygen Saturation 93.8 % (92.0-98.0) Arterial Blood Base Excess 6.3 Doroteo Test Positive Test 08/20/17 13:47 Arterial Blood pH 7.330 (7.350-7.450) Arterial Blood Partial Pressure CO2 41.9 mmHg (35.0-45.0) Arterial Blood Partial Pressure O2 114.2 mmHg (75.0-100.0) H Arterial Blood HCO3 21.6 mmol/L (22.0-26.0) L Arterial Blood Oxygen Saturation 97.1 % (92.0-98.0) Arterial Blood Base Excess -4.1 Doroteo Test Current Medications Medications (Trade) Dose Ordered Sig/Felipe Route PRN Reason Start Time Stop Time Status Last Admin Dose Admin Acetaminophen (Tylenol) 650 mg Q6HR PRN NG Mild Pain/Temp > 100.1 08/20/17 13:00 09/19/17 12:59 08/20/17 16:29 Adenosine (Adenocard) 6 mg ONCE IVP 08/20/17 09:00 08/21/17 09:01 08/20/17 08:53 Adenosine (Adenocard) 12 mg PRN PRN IVP SVT REFRACTORY TO LOWER DOSES 08/20/17 19:15 08/21/17 23:59 Albuterol/ Ipratropium (Albuterol/ Ipratropium) 3 ml Q4H PRN HHN Shortness of Breath 08/19/17 10:30 08/24/17 10:29 Aspirin (ASA) 81 mg DAILY ORAL 08/20/17 09:00 09/19/17 08:59 08/20/17 09:43 Chlorhexidine Gluconate (Vicki-Hex 2%) 1 applic DAILY@2000 TOPIC 08/20/17 20:00 09/19/17 19:59 08/20/17 19:39 Dextrose (Dextrose 50%) STAT PRN IV Hypoglycemia 08/19/17 12:00 09/18/17 11:59 Epoetin Dario (Procrit (for ESRD on dialysis)) 10,000 units THU-THU-THU SUBQ 08/21/17 21:00 09/20/17 20:59 Heparin Sodium (Porcine) (Heparin 5000 units/ml) 5,000 units EVERY 12 HOURS SUBQ 08/19/17 21:00 09/18/17 20:59 08/20/17 09:44 Insulin Aspart (NovoLOG) BEFORE MEALS AND HS SUBQ 08/19/17 12:30 09/18/17 12:29 08/20/17 16:21 Lorazepam (Ativan 2mg/ml 1ml) 2 mg Q4H PRN IV For Anxiety 08/19/17 12:00 08/26/17 11:59 Meropenem 500 mg/ Sodium Chloride 55 ml @ 110 mls/hr Q24H IVPB 08/19/17 16:00 08/24/17 15:59 08/20/17 17:26 Morphine Sulfate (Morphine Sulfate) 2 mg Q4H PRN IVP Moderate Pain (Pain Scale 4-6) 08/19/17 10:30 08/26/17 10:29 Morphine Sulfate (Morphine Sulfate) 4 mg Q4H PRN IVP For Pain Scale 7-10 08/19/17 12:00 08/26/17 11:59 Nitroglycerin (Ntg) 0.4 mg Q5MIN X 3 DOSES PRN SL Prn Chest Pain 08/19/17 12:00 09/18/17 11:59 Norepinephrine Bitartrate 4 mg/ Dextrose 250 ml @ 0 mls/hr Q24H IV 08/19/17 14:00 09/18/17 13:59 08/20/17 19:27 Ondansetron HCl (Zofran) 4 mg Q6H PRN IVP Nausea & Vomiting 08/19/17 12:00 09/18/17 11:59 Pantoprazole (Protonix) 40 mg DAILY IV 08/20/17 09:00 09/19/17 08:59 08/20/17 09:43 Polyethylene Glycol (Miralax) 17 gm DAILYPRN PRN ORAL Constipation 08/19/17 10:30 09/18/17 10:29 Sodium Chloride 1,000 ml @ 100 mls/hr Q10H IVLG 08/20/17 12:00 09/19/17 11:59 08/20/17 16:30 Temazepam (Restoril) 15 mg HSPRN PRN ORAL Insomnia 08/19/17 12:00 08/26/17 11:59 Vancomycin HCl (Vanco rx to dose) 1 ea DAILYPRN PRN MISC RX TO DOSE PROTOCL 08/19/17 13:00 09/18/17 12:59 JUNI ABDUL Aug 20, 2017 21:03
[2017-08-21] VITALS (69 sets, daily range): BP systolic 62–141; BP diastolic 33–67
--- NOTE | 2017-08-21 04:15 | Consultation ---
DATE OF CONSULTATION: 08/20/2017 INFECTIOUS DISEASES NOTE/CONSULTATION ATTENDING PHYSICIAN: Brittany Edmond M.D. REFERRING PHYSICIAN: I was asked by Dr. Matthews to see this patient. CONSULTING PHYSICIAN: The patient was initially seen by Dr. Kim, Infectious Diseases, for initial consult. I was requested to follow up on this patient for Infectious Diseases followup. CLINICAL UPDATE: The patient was admitted with sepsis and shock. The patient is on a vent, in respiratory failure, on pressors, coming in with fevers and leukocytosis. The etiology is unclear at this time. REVIEW OF SYSTEMS: CONSTITUTIONAL: The patient has generalized weakness and fatigue. She is on a vent. She has a Forman. She is on pressors. HEAD AND NECK: She is orally intubated. CARDIAC: She is on pressors. GASTROINTESTINAL: No nausea, vomiting, or diarrhea. GENITOURINARY: She has a Forman. PULMONARY: She is on a vent. SKIN: No rash. NEUROLOGIC: No seizures. She is lethargic and poorly responsive. Review of systems otherwise limited in this patient. PHYSICAL EXAMINATION: VITAL SIGNS: Temperature is 99.7. Her T-max was 100.1. She is currently on pressors. Pulse rate is 83, respiratory rate 26, blood pressure 100/51, saturation 97% on FiO2 of 70%. Pulse rate has been as high as 152 on admission. Actually, it was as high as 185. GENERAL: Lethargic and weak. HEAD AND NECK: Orally intubated. Eye exam, no icterus. Normocephalic. LUNGS: Bilateral rhonchi, crackles, and rales. HEART: Regular. No rubs, gallop, or murmur. ABDOMEN: Soft. Positive bowel sounds. SKIN: No obvious rash. MUSCULOSKELETAL: No effusion. Legs are without cellulitis. PERIPHERAL VASCULAR: No gangrene. GENITOURINARY: She has a Forman. Urine is cloudy. LINES: Line sites without phlebitis. NEUROLOGIC: Generalized weakness, lethargic, weak, somewhat sedated. LABORATORY AND DIAGNOSTIC DATA: Laboratory data as follows. The patient's lactic acid is 5.9, it was as high as 6.1. The patient's white count was on admission 16.6, hemoglobin 10.0. White count now 16.1. The patient's creatinine is 4.1, it was 4.2 on admission. Potassium was 8.0. LFTs were elevated at over 9000. Troponin was elevated also. AST on admission was 9288, ALT 4438, and alkaline phosphatase 101. Imaging studies, chest x-ray shows CHF, edema, unclear if there are underlying infiltrates, worsening airspace disease. This was noted and reviewed. Cultures are pending at this time. Influenza screen was negative. Blood and sputum cultures are pending. Urinalysis was 2-4 white cells only. ASSESSMENT AND PLAN: 1. The patient has sepsis, shock, acute kidney injury likely shock liver, respiratory failure, on ventilator, possible pneumonia versus congestive heart failure and edema, leukocytosis, fevers, systemic inflammatory response syndrome criteria, and acute kidney injury requiring hemodialysis. The patient is currently on meropenem and vancomycin. Continue antibiotics. Check sputum culture. Check followup labs. Check chest x-ray. Continue meropenem and vancomycin for septic shock and possible pneumonia, fevers, leukocytosis pending workup. 2. Acute kidney injury, on hemodialysis. 3. Elevated liver enzymes, likely shock liver. Check hepatitis panel. 4. Anemia. 5. Hypertension. 6. Diabetes. 7. Gastroesophageal reflux disease. 8. Morbid obesity. 9. Shortness of breath. 10. Hypoxia. 11. Respiratory failure. 12. On ventilator. 13. Intensive care unit care. 14. BiPAP, hypercapnia. 15. Asthma. 16. Blood sugar and blood pressure treatment for diabetes and hypertension per primary. 17. Iog-KR-awghxaiug myocardial infarction history. 18. Hyperkalemia. 19. Allergies negative. 20. Social history negative. 21. Family history noncontributory. 22. noted. 23. Case discussed with RN, intensive care unit care. 24. No known drug allergies. Martha Snyder M.D. DR: Rachel JOB#: [id number] CC:
[2017-08-21 05:28] LABS: HEMATOCRIT 32.6 % (37.0-47.0); HEMOGLOBIN 9.8 G/DL (12.0-16.0); MEAN CORPUSCULAR VOLUME 79 FL (80-99); PLATELET COUNT 119 K/UL (150-450); RED BLOOD COUNT 4.16 M/UL (4.20-5.40); RED CELL DISTRIBUTION WIDTH 17.4 % (11.6-14.8); WHITE BLOOD COUNT 16.2 K/UL (4.8-10.8)
[2017-08-21 06:01] LABS: INR 1.9 (0.9-1.1)
--- NOTE | 2017-08-21 06:12 | General Progress Note ---
Progress Note Progress Note Surgery: arterial line clean with dressings. no bleeding noted. functional with good wave forms. line flushed and ensured functional. Stevan Romero Aug 21, 2017 06:11
[2017-08-21] MEDS: NovoLOG Insulin Flexpen SUBQ SCH ×4 (06:35→21:06)
[2017-08-21 06:36] LABS: ALANINE AMINOTRANSFERASE 3863 U/L (12-78); ALBUMIN 2.3 G/DL (3.4-5.0); ALBUMIN/GLOBULIN RATIO 0.5 (1.0-2.7); ALKALINE PHOSPHATASE 86 U/L (46-116); ANION GAP 12 mmol/L (5-15); ASPARTATE AMINO TRANSFERASE 2499 U/L (15-37); BILIRUBIN,TOTAL 1.9 MG/DL (0.2-1.0); BLOOD UREA NITROGEN 37 mg/dL (7-18); CALCIUM 7.6 MG/DL (8.5-10.1); CARBON DIOXIDE 30 MMOL/L (21-32); CHLORIDE 95 MMOL/L (98-107); PHOSPHORUS 2.5 MG/DL (2.5-4.9); POTASSIUM 3.5 MMOL/L (3.5-5.1); SODIUM 137 MMOL/L (136-145)
[2017-08-21 06:48] LABS: CREATINE KINASE 780 U/L (26-308)
[2017-08-21 07:27] LABS: BILIRUBIN,DIRECT 1.1 MG/DL (0.0-0.3)
[2017-08-21] MEDS: Acetaminophen 650mg/20.3ml NG PRN (07:39)
[2017-08-21] MEDS: Aspirin Baby 81mg ORAL SCH (08:36)
[2017-08-21] MEDS: Pantoprazole Inj IV SCH (08:36)
[2017-08-21] MEDS: Heparin 5000 units/ml inj SUBQ SCH (08:40)
--- NOTE | 2017-08-21 10:32 | Pulmonolgy Critical Care Note ---
Critical Care - Asmt/Plan Problems: (1) Acute respiratory failure with hypoxia and hypercapnia (2) Acute renal failure (ARF) (3) Acute toxic metabolic encephalopathy (4) Lactic acid acidosis (5) Septic shock (6) DM2 (diabetes mellitus, type 2) (7) HTN (hypertension) Respiratory: monitor respiratory rate, adjust FIO2, CXR Cardiac: continue pressors - on levophed, continue to monitor HR/BP Renal: F/U I&O, keep IV fluid Infectious Disease: check cultures Gastrointestinal: continue feedings/current rate Endocrine: monitor blood sugar, continue sliding scale insulin Hematologic: monitor H/H, transfuse if hgb<8.5 Neurologic: PRN Ativan, keep patient comfortable Affect: PRN ativan Prophylaxis: Protonix, Heparin Disposition: keep in ICU Notes 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: 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, 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 Discussed with: nurses, consultants, bilingual case managerdivision sales manager - Objective Last 24 Hour Vital Signs Date Time Temp Pulse Resp B/P (MAP) Pulse Ox O2 Delivery O2 Flow Rate FiO2 08/21/17 10:25 113/63 08/21/17 09:00 117 26 96 Mechanical Ventilator 70 113/63 08/21/17 08:58 117 26 70 08/21/17 08:45 101 26 96 Mechanical Ventilator 70 129/41 08/21/17 08:30 100.0 103 26 132/44 96 Mechanical Ventilator 70 08/21/17 08:15 103 26 132/44 96 Mechanical Ventilator 70 08/21/17 08:09 100.0 08/21/17 08:00 101 26 125/47 96 Mechanical Ventilator 70 08/21/17 08:00 70 08/21/17 07:45 110 26 125/47 97 Mechanical Ventilator 70 08/21/17 07:30 100.3 118 26 111/58 97 Mechanical Ventilator 70 08/21/17 07:15 118 26 108/57 97 Mechanical Ventilator 70 08/21/17 07:14 100 26 70 08/21/17 07:00 131 26 130/56 97 Mechanical Ventilator 70 08/21/17 06:30 113 26 123/66 97 Mechanical Ventilator 70 08/21/17 06:00 118 26 112/51 98 Mechanical Ventilator 70 08/21/17 06:00 123/66 08/21/17 05:39 88/47 08/21/17 05:30 148 26 88/47 97 Mechanical Ventilator 70 08/21/17 05:06 108 26 70 08/21/17 05:00 124/63 08/21/17 05:00 111 26 124/63 97 Mechanical Ventilator 70 08/21/17 04:30 124 26 123/67 97 Mechanical Ventilator 70 08/21/17 04:00 70 08/21/17 04:00 110 08/21/17 04:00 98.8 110 26 124/43 96 Mechanical Ventilator 70 08/21/17 04:00 124/43 08/21/17 03:30 144 26 117/54 98 Mechanical Ventilator 70 08/21/17 03:05 115 26 70 08/21/17 03:00 108 26 136/57 98 Mechanical Ventilator 70 08/21/17 03:00 136/57 08/21/17 02:30 100 26 91/33 98 Mechanical Ventilator 70 141/67 08/21/17 02:07 86/47 08/21/17 02:00 86/47 08/21/17 02:00 142 26 86/47 96 Mechanical Ventilator 70 08/21/17 01:30 142 26 62/34 95 Mechanical Ventilator 70 66/45 08/21/17 01:07 141 26 70 08/21/17 01:00 140 26 94/62 97 Mechanical Ventilator 70 93/45 08/21/17 00:30 134 20 93/59 96 Mechanical Ventilator 70 80/47 08/21/17 00:00 105/52 08/21/17 00:00 99.3 140 26 105/52 97 Mechanical Ventilator 70 08/21/17 00:00 140 08/21/17 00:00 70 08/20/17 23:30 140 26 97/52 97 Mechanical Ventilator 70 08/20/17 23:03 140 26 70 08/20/17 23:00 140 26 94/53 97 Mechanical Ventilator 70 08/20/17 23:00 94/43 08/20/17 22:30 139 26 86/54 97 Mechanical Ventilator 70 102/51 08/20/17 22:00 93/43 08/20/17 22:00 139 23 93/43 96 Mechanical Ventilator 70 08/20/17 21:30 143 26 89/58 95 Mechanical Ventilator 70 08/20/17 21:17 146 26 70 08/20/17 21:00 107/53 08/20/17 21:00 84 26 107/53 97 Mechanical Ventilator 70 08/20/17 20:30 84 26 101/52 98 Mechanical Ventilator 70 08/20/17 20:00 83 26 100/51 97 Mechanical Ventilator 70 08/20/17 20:00 83 08/20/17 20:00 70 08/20/17 20:00 100/51 08/20/17 19:30 99.7 82 26 100/54 97 Mechanical Ventilator 70 08/20/17 19:27 111/86 08/20/17 19:12 87 26 70 08/20/17 19:00 86 20 110/57 97 Mechanical Ventilator 70 08/20/17 19:00 110/57 08/20/17 18:45 86 26 113/57 100 Mechanical Ventilator 70 08/20/17 18:30 86 26 111/86 100 Mechanical Ventilator 70 08/20/17 18:00 111/86 08/20/17 18:00 86 26 111/86 100 Mechanical Ventilator 70 08/20/17 18:00 70 08/20/17 17:45 85 26 104/51 100 Mechanical Ventilator 80 08/20/17 17:37 Mechanical Ventilator 90 08/20/17 17:35 98.4 85 32 121/56 Mechanical Ventilator 90 08/20/17 17:30 85 26 86/43 100 Mechanical Ventilator 100 08/20/17 17:20 83 26 80 08/20/17 17:15 86 26 100/49 100 Mechanical Ventilator 100 08/20/17 17:00 99.0 08/20/17 17:00 121/56 08/20/17 17:00 85 20 121/65 100 Mechanical Ventilator 100 08/20/17 16:45 84 21 158/68 100 Mechanical Ventilator 100 08/20/17 16:45 84 21 150/67 100 Mechanical Ventilator 100 08/20/17 16:30 84 21 150/67 100 Mechanical Ventilator 100 08/20/17 16:15 84 21 150/67 100 Mechanical Ventilator 100 08/20/17 16:00 100 08/20/17 16:00 100.3 84 24 115/48 100 Mechanical Ventilator 100 08/20/17 16:00 84 18 16:00 115/48 08/20/17 15:57 87/46 08/20/17 15:45 84 24 104/51 100 Mechanical Ventilator 100 08/20/17 15:30 86 24 94/47 100 Mechanical Ventilator 100 08/20/17 15:18 85 26 100 08/20/17 15:15 85 24 98/48 100 Mechanical Ventilator 100 08/20/17 15:00 86 24 93/50 100 Mechanical Ventilator 100 08/20/17 15:00 93/50 08/20/17 14:52 84 08/20/17 14:45 83 24 77/48 100 Mechanical Ventilator 100 08/20/17 14:30 87 24 76/47 100 Mechanical Ventilator 100 08/20/17 14:15 88 24 73/49 100 Mechanical Ventilator 100 08/20/17 14:00 97.2 81 32 62/38 Mechanical Ventilator 90 08/20/17 14:00 Mechanical Ventilator 90 08/20/17 14:00 73/49 08/20/17 14:00 78 23 64/45 100 Mechanical Ventilator 100 08/20/17 13:45 82 22 62/40 100 Mechanical Ventilator 100 08/20/17 13:35 44/27 08/20/17 13:30 79 21 57/35 100 Mechanical Ventilator 100 08/20/17 13:23 77 26 100 08/20/17 13:15 79 21 54/33 100 Mechanical Ventilator 100 08/20/17 13:00 85 22 44/27 100 Mechanical Ventilator 100 08/20/17 13:00 44/27 08/20/17 12:45 86 19 62/39 99 Mechanical Ventilator 100 08/20/17 12:43 81 08/20/17 12:30 152 19 58/35 95 Mechanical Ventilator 100 08/20/17 12:15 171 22 57/42 94 Mechanical Ventilator 100 08/20/17 12:00 100.1 161 22 63/54 90 Mechanical Ventilator 90 08/20/17 12:00 57/42 08/20/17 11:55 100 08/20/17 11:45 185 22 54/44 90 Mechanical Ventilator 90 08/20/17 11:30 184 22 49/19 90 Mechanical Ventilator 90 08/20/17 11:28 194 08/20/17 11:15 190 22 46/25 90 Mechanical Ventilator 90 08/20/17 11:00 175 22 44/15 90 Mechanical Ventilator 90 08/20/17 11:00 46/19 08/20/17 10:45 181 22 44/22 90 Mechanical Ventilator 90 08/20/17 10:38 44/15 08/20/17 10:35 188 20 100 Status: awake Condition: critical HEENT: atraumatic Neck: full ROM Heart: HR/BP stable Abdomen: soft, non-tender Extremities: no C/C/E Decubiti: location Micro: Microbiology Date/Time Source Procedure Growth Status 08/19/17 07:55 Blood Blood Culture - Preliminary NO GROWTH AFTER 24 HOURS Resulted 08/19/17 07:50 Blood Blood Culture - Preliminary NO GROWTH AFTER 24 HOURS Resulted 08/19/17 08:45 Nasal Nares Influenza Types A,B Antigen (ZECHARIAH) - Final Complete 08/19/17 08:45 Rectum VRE Culture - Final NO VANCOMYCIN RESISTANT ENTEROCOCCUS ... Complete Accucheck: 198 Critical Care - Subjective ROS Limited/Unobtainable: Yes ICU Day: 3 Intubation Day: 3 Interval Events: hemodynamically more stable Condition: critical FI02: 70 Vent Support Breath Rate: 26 Vent Support Mode: AC Vent Tidal Volume: 700 Sputum Amount: Small PEEP: 5.0 PIP: 54 Fluids: NS 100 Drips: Levohed I&O: Intake and Output 08/20/17 08/21/17 19:00 07:00 Intake Total 2410.00 ml 1543.75 ml Output Total 40 ml 125 ml Balance 2370.00 ml 1418.75 ml Intake Oral 0 ml 0 ml IV Total 2410.00 ml 1543.75 ml Output Urine Total 40 ml 125 ml Hemodialysis UF 0 ml CXR: pending ET-Tube: 8.0 ET Position: 24 Labs: Laboratory Tests Test 08/20/17 11:07 08/20/17 13:47 08/21/17 04:30 Arterial Blood pH 7.222 (7.350-7.450) 7.330 (7.350-7.450) Arterial Blood Partial Pressure CO2 73.0 mmHg (35.0-45.0) *H 41.9 mmHg (35.0-45.0) Arterial Blood Partial Pressure O2 86.0 mmHg (75.0-100.0) 114.2 mmHg (75.0-100.0) H Arterial Blood HCO3 29.3 mmol/L (22.0-26.0) H 21.6 mmol/L (22.0-26.0) L Arterial Blood Oxygen Saturation 93.8 % (92.0-98.0) 97.1 % (92.0-98.0) Arterial Blood Base Excess 6.3 -4.1 Doroteo Test Positive White Blood Count 16.2 K/UL (4.8-10.8) H Red Blood Count 4.16 M/UL (4.20-5.40) L Hemoglobin 9.8 G/DL (12.0-16.0) L Hematocrit 32.6 % (37.0-47.0) L Mean Corpuscular Volume 79 FL (80-99) L Mean Corpuscular Hemoglobin 23.6 PG (27.0-31.0) L Mean Corpuscular Hemoglobin Concent 30.0 G/DL (32.0-36.0) L Red Cell Distribution Width 17.4 % (11.6-14.8) H Platelet Count 119 K/UL (150-450) L Mean Platelet Volume 9.1 FL (6.5-10.1) Neutrophils (%) (Auto) % (45.0-75.0) Lymphocytes (%) (Auto) % (20.0-45.0) Monocytes (%) (Auto) % (1.0-10.0) Eosinophils (%) (Auto) % (0.0-3.0) Basophils (%) (Auto) % (0.0-2.0) Differential Total Cells Counted 100 Neutrophils % (Manual) 87 % (45-75) H Lymphocytes % (Manual) 9 % (20-45) L Monocytes % (Manual) 2 % (1-10) Eosinophils % (Manual) 0 % (0-3) Basophils % (Manual) 0 % (0-2) Band Neutrophils 2 % (0-8) Nucleated Red Blood Cells 3 /100 WBC Platelet Estimate Decreased L Platelet Morphology Normal Hypochromasia 2+ Anisocytosis 1+ Microcytosis 1+ Prothrombin Time 20.2 SEC (9.30-11.50) H Prothromb Time International Ratio 1.9 (0.9-1.1) H Activated Partial Thromboplast Time 32 SEC (23-33) Sodium Level 137 MMOL/L (136-145) Potassium Level 3.5 MMOL/L (3.5-5.1) Chloride Level 95 MMOL/L (98-107) L Carbon Dioxide Level 30 MMOL/L (21-32) Anion Gap 12 mmol/L (5-15) Blood Urea Nitrogen 37 mg/dL (7-18) H Creatinine 4.0 MG/DL (0.55-1.30) H Estimat Glomerular Filtration Rate 13.8 mL/min (>60) Glucose Level 184 MG/DL (74-106) H Lactic Acid Level 2.90 mmol/L (0.66-2.22) H Uric Acid 7.4 MG/DL (2.6-7.2) H Calcium Level 7.6 MG/DL (8.5-10.1) L Phosphorus Level 2.5 MG/DL (2.5-4.9) Magnesium Level 1.5 MG/DL (1.8-2.4) L Total Bilirubin 1.9 MG/DL (0.2-1.0) H Direct Bilirubin 1.1 MG/DL (0.0-0.3) H Aspartate Amino Transf (AST/SGOT) 2499 U/L (15-37) H Alanine Aminotransferase (ALT/SGPT) 3863 U/L (12-78) H Alkaline Phosphatase 86 U/L (46-116) Total Creatine Kinase 780 U/L (26-308) H Troponin I 16.427 ng/mL (0.000-0.056) C-Reactive Protein, Quantitative 27.5 mg/dL (0.00-0.90) H Pro-B-Type Natriuretic Peptide 65119 pg/mL (0-125) H Total Protein 6.5 G/DL (6.4-8.2) Albumin 2.3 G/DL (3.4-5.0) L Globulin 4.2 g/dL Albumin/Globulin Ratio 0.5 (1.0-2.7) L Digoxin Level 1.4 NG/ML (0.9-2.0) Hepatitis A IgM Antibody Pending Hepatitis B Surface Antigen Pending Hepatitis B Core IgM Antibody Pending Hepatitis C Antibody Pending DOMONIQUE DOBBS Aug 21, 2017 10:32
[2017-08-21] MEDS ORDERED: Heparin 25,000 units/D5W 500ml (ACS/MI) IV SCH ×2 (12:30→19:30)
--- NOTE | 2017-08-21 13:53 | GI Progress Note ---
Assessment/Plan Problems: (1) Shock liver ICD Codes: K72.00 - Acute and subacute hepatic failure without coma SNOMED: 846488085 (2) Anemia ICD Codes: D64.9 - Anemia, unspecified SNOMED: 234759810 (3) Morbid obesity ICD Codes: E66.01 - Morbid (severe) obesity due to excess calories SNOMED: 072317019, 55008390950882 (4) Multiple organ failure SNOMED: 28065683 (5) Transaminitis ICD Codes: R74.0 - Nonspecific elevation of levels of transaminase and lactic acid dehydrogenase [LDH] SNOMED: 994072011, 385526530 (6) Septic shock ICD Codes: A41.9 - Sepsis, unspecified organism; R65.21 - Severe sepsis with septic shock SNOMED: 28948574 (7) DM2 (diabetes mellitus, type 2) ICD Codes: E11.9 - Type 2 diabetes mellitus without complications SNOMED: 11453486 (8) GERD (gastroesophageal reflux disease) ICD Codes: K21.9 - Gastro-esophageal reflux disease without esophagitis SNOMED: 569525922 Status: stable Status Narrative Discussed with Dr. Cordero. Assessment/Plan defer GI procedures at this time NGT NPO + IVFs transaminitis due to shock liver >> trend anemia work up OB stool r/o GI bleed monitor H&H, prn transfusions ppi abx fu labs Subjective Subjective limited Objective Last 24 Hour Vital Signs Date Time Temp Pulse Resp B/P (MAP) Pulse Ox O2 Delivery O2 Flow Rate FiO2 08/21/17 13:30 83 26 98 Mechanical Ventilator 70 103/37 08/21/17 13:10 86 26 70 08/21/17 13:00 100/45 08/21/17 13:00 79 26 99 Mechanical Ventilator 70 100/45 08/21/17 12:30 82 26 99 Mechanical Ventilator 70 106/35 08/21/17 12:15 82 26 99 Mechanical Ventilator 70 102/35 08/21/17 12:00 70 08/21/17 12:00 84 08/21/17 12:00 98.9 86 26 99 Mechanical Ventilator 70 92/60 08/21/17 11:45 82 26 99 Mechanical Ventilator 70 105/37 08/21/17 11:30 82 26 99 Mechanical Ventilator 70 112/61 08/21/17 11:15 85 26 99 Mechanical Ventilator 70 112/59 18 11:00 89 26 99 Mechanical Ventilator 70 109/58 18 11:00 109/59 18 10:45 97 26 99 Mechanical Ventilator 70 101/42 18 10:37 89 26 70 18 10:30 80 26 99 Mechanical Ventilator 70 109/60 18 10:25 113/63 08/21/17 10:15 78 26 99 Mechanical Ventilator 70 119/61 08/21/17 10:00 78 26 96 Mechanical Ventilator 70 128/63 08/21/17 10:00 128/63 08/21/17 09:45 78 26 96 Mechanical Ventilator 70 122/43 08/21/17 09:30 78 26 96 Mechanical Ventilator 70 126/63 08/21/17 09:15 78 26 96 Mechanical Ventilator 70 126/63 08/21/17 09:00 117 26 96 Mechanical Ventilator 70 113/63 08/21/17 09:00 113/63 08/21/17 08:58 117 26 70 08/21/17 08:45 101 26 96 Mechanical Ventilator 70 129/41 08/21/17 08:41 151 08/21/17 08:30 100.0 103 26 132/44 96 Mechanical Ventilator 70 08/21/17 08:15 103 26 132/44 96 Mechanical Ventilator 70 08/21/17 08:09 100.0 08/21/17 08:00 101 26 125/47 96 Mechanical Ventilator 70 08/21/17 08:00 125/47 08/21/17 08:00 70 08/21/17 07:45 110 26 125/47 97 Mechanical Ventilator 70 08/21/17 07:42 112 08/21/17 07:30 100.3 118 26 111/58 97 Mechanical Ventilator 70 08/21/17 07:15 118 26 108/57 97 Mechanical Ventilator 70 08/21/17 07:14 100 26 70 08/21/17 07:00 131 26 130/56 97 Mechanical Ventilator 70 08/21/17 06:30 113 26 123/66 97 Mechanical Ventilator 70 08/21/17 06:00 118 26 112/51 98 Mechanical Ventilator 70 08/21/17 06:00 123/66 08/21/17 05:39 88/47 08/21/17 05:30 148 26 88/47 97 Mechanical Ventilator 70 08/21/17 05:06 108 26 70 08/21/17 05:00 124/63 08/21/17 05:00 111 26 124/63 97 Mechanical Ventilator 70 08/21/17 04:30 124 26 123/67 97 Mechanical Ventilator 70 08/21/17 04:00 70 08/21/17 04:00 110 08/21/17 04:00 98.8 110 26 124/43 96 Mechanical Ventilator 70 08/21/17 04:00 124/43 08/21/17 03:30 144 26 117/54 98 Mechanical Ventilator 70 08/21/17 03:05 115 26 70 08/21/17 03:00 108 26 136/57 98 Mechanical Ventilator 70 08/21/17 03:00 136/57 08/21/17 02:30 100 26 91/33 98 Mechanical Ventilator 70 141/67 08/21/17 02:07 86/47 08/21/17 02:00 86/47 08/21/17 02:00 142 26 86/47 96 Mechanical Ventilator 70 08/21/17 01:30 142 26 62/34 95 Mechanical Ventilator 70 66/45 08/21/17 01:07 141 26 70 08/21/17 01:00 140 26 94/62 97 Mechanical Ventilator 70 93/45 08/21/17 00:30 134 20 93/59 96 Mechanical Ventilator 70 80/47 08/21/17 00:00 105/52 08/21/17 00:00 99.3 140 26 105/52 97 Mechanical Ventilator 70 08/21/17 00:00 140 08/21/17 00:00 70 08/20/17 23:30 140 26 97/52 97 Mechanical Ventilator 70 08/20/17 23:03 140 26 70 08/20/17 23:00 140 26 94/53 97 Mechanical Ventilator 70 08/20/17 23:00 94/43 08/20/17 22:30 139 26 86/54 97 Mechanical Ventilator 70 102/51 08/20/17 22:00 93/43 08/20/17 22:00 139 23 93/43 96 Mechanical Ventilator 70 08/20/17 21:30 143 26 89/58 95 Mechanical Ventilator 70 08/20/17 21:17 146 26 70 08/20/17 21:00 107/53 08/20/17 21:00 84 26 107/53 97 Mechanical Ventilator 70 08/20/17 20:30 84 26 101/52 98 Mechanical Ventilator 70 08/20/17 20:00 83 26 100/51 97 Mechanical Ventilator 70 08/20/17 20:00 83 08/20/17 20:00 70 08/20/17 20:00 100/51 08/20/17 19:30 99.7 82 26 100/54 97 Mechanical Ventilator 70 08/20/17 19:27 111/86 08/20/17 19:12 87 26 70 08/20/17 19:00 86 20 110/57 97 Mechanical Ventilator 70 08/20/17 19:00 110/57 08/20/17 18:45 86 26 113/57 100 Mechanical Ventilator 70 08/20/17 18:30 86 26 111/86 100 Mechanical Ventilator 70 08/20/17 18:00 111/86 08/20/17 18:00 86 26 111/86 100 Mechanical Ventilator 70 08/20/17 18:00 70 08/20/17 17:45 85 26 104/51 100 Mechanical Ventilator 80 08/20/17 17:37 Mechanical Ventilator 90 08/20/17 17:35 98.4 85 32 121/56 Mechanical Ventilator 90 08/20/17 17:30 85 26 86/43 100 Mechanical Ventilator 100 08/20/17 17:20 83 26 80 08/20/17 17:15 86 26 100/49 100 Mechanical Ventilator 100 08/20/17 17:00 99.0 08/20/17 17:00 121/56 08/20/17 17:00 85 20 121/65 100 Mechanical Ventilator 100 08/20/17 16:45 84 21 158/68 100 Mechanical Ventilator 100 08/20/17 16:45 84 21 150/67 100 Mechanical Ventilator 100 08/20/17 16:30 84 21 150/67 100 Mechanical Ventilator 100 08/20/17 16:15 84 21 150/67 100 Mechanical Ventilator 100 08/20/17 16:00 100 08/20/17 16:00 100.3 84 24 115/48 100 Mechanical Ventilator 100 08/20/17 16:00 84 08/20/17 16:00 115/48 08/20/17 15:57 87/46 08/20/17 15:45 84 24 104/51 100 Mechanical Ventilator 100 08/20/17 15:30 86 24 94/47 100 Mechanical Ventilator 100 08/20/17 15:18 85 26 100 08/20/17 15:15 85 24 98/48 100 Mechanical Ventilator 100 08/20/17 15:00 86 24 93/50 100 Mechanical Ventilator 100 08/20/17 15:00 93/50 08/20/17 14:52 84 08/20/17 14:45 83 24 77/48 100 Mechanical Ventilator 100 08/20/17 14:30 87 24 76/47 100 Mechanical Ventilator 100 08/20/17 14:15 88 24 73/49 100 Mechanical Ventilator 100 08/20/17 14:00 97.2 81 32 62/38 Mechanical Ventilator 90 08/20/17 14:00 Mechanical Ventilator 90 08/20/17 14:00 73/49 08/20/17 14:00 78 23 64/45 100 Mechanical Ventilator 100 Intake and Output 08/20/17 08/21/17 19:00 07:00 Intake Total 2410.00 ml 1688.75 ml Output Total 40 ml 125 ml Balance 2370.00 ml 1563.75 ml Intake Oral 0 ml 0 ml IV Total 2410.00 ml 1688.75 ml Output Urine Total 40 ml 125 ml Hemodialysis UF 0 ml Laboratory Tests Test 08/21/17 04:30 08/21/17 11:35 White Blood Count 16.2 K/UL (4.8-10.8) H Red Blood Count 4.16 M/UL (4.20-5.40) L Hemoglobin 9.8 G/DL (12.0-16.0) L Hematocrit 32.6 % (37.0-47.0) L Mean Corpuscular Volume 79 FL (80-99) L Mean Corpuscular Hemoglobin 23.6 PG (27.0-31.0) L Mean Corpuscular Hemoglobin Concent 30.0 G/DL (32.0-36.0) L Red Cell Distribution Width 17.4 % (11.6-14.8) H Platelet Count 119 K/UL (150-450) L Mean Platelet Volume 9.1 FL (6.5-10.1) Neutrophils (%) (Auto) % (45.0-75.0) Lymphocytes (%) (Auto) % (20.0-45.0) Monocytes (%) (Auto) % (1.0-10.0) Eosinophils (%) (Auto) % (0.0-3.0) Basophils (%) (Auto) % (0.0-2.0) Differential Total Cells Counted 100 Neutrophils % (Manual) 87 % (45-75) H Lymphocytes % (Manual) 9 % (20-45) L Monocytes % (Manual) 2 % (1-10) Eosinophils % (Manual) 0 % (0-3) Basophils % (Manual) 0 % (0-2) Band Neutrophils 2 % (0-8) Nucleated Red Blood Cells 3 /100 WBC Platelet Estimate Decreased L Platelet Morphology Normal Hypochromasia 2+ Anisocytosis 1+ Microcytosis 1+ Prothrombin Time 20.2 SEC (9.30-11.50) H Prothromb Time International Ratio 1.9 (0.9-1.1) H Activated Partial Thromboplast Time 32 SEC (23-33) Sodium Level 137 MMOL/L (136-145) Potassium Level 3.5 MMOL/L (3.5-5.1) Chloride Level 95 MMOL/L (98-107) L Carbon Dioxide Level 30 MMOL/L (21-32) Anion Gap 12 mmol/L (5-15) Blood Urea Nitrogen 37 mg/dL (7-18) H Creatinine 4.0 MG/DL (0.55-1.30) H Estimat Glomerular Filtration Rate 13.8 mL/min (>60) Glucose Level 184 MG/DL (74-106) H Lactic Acid Level 2.90 mmol/L (0.66-2.22) H 2.50 mmol/L (0.66-2.22) H Uric Acid 7.4 MG/DL (2.6-7.2) H Calcium Level 7.6 MG/DL (8.5-10.1) L Phosphorus Level 2.5 MG/DL (2.5-4.9) Magnesium Level 1.5 MG/DL (1.8-2.4) L Total Bilirubin 1.9 MG/DL (0.2-1.0) H Direct Bilirubin 1.1 MG/DL (0.0-0.3) H Aspartate Amino Transf (AST/SGOT) 2499 U/L (15-37) H Alanine Aminotransferase (ALT/SGPT) 3863 U/L (12-78) H Alkaline Phosphatase 86 U/L (46-116) Total Creatine Kinase 780 U/L (26-308) H Troponin I 16.427 ng/mL (0.000-0.056) Pending C-Reactive Protein, Quantitative 27.5 mg/dL (0.00-0.90) H Pro-B-Type Natriuretic Peptide 94072 pg/mL (0-125) H Total Protein 6.5 G/DL (6.4-8.2) Albumin 2.3 G/DL (3.4-5.0) L Globulin 4.2 g/dL Albumin/Globulin Ratio 0.5 (1.0-2.7) L Digoxin Level 1.4 NG/ML (0.9-2.0) Hepatitis A IgM Antibody Pending Hepatitis B Surface Antigen Pending Hepatitis B Core IgM Antibody Pending Hepatitis C Antibody Pending Height (Feet): 5 Height (Inches): 3.00 Weight (Pounds): 484 General Appearance: morbidly obese Cardiovascular: normal rate Respiratory/Chest: no respiratory distress, other - mech vent Abdominal Exam: normal bowel sounds, non tender, soft, other - NGT Extremities: non-tender Caren Nixon N.P. Aug 21, 2017 13:53
--- NOTE | 2017-08-21 14:00 | Cardiac Electrophysiology PN ---
Assessment/Plan Assessment/Plan 1. Non-ST elevation myocardial infarction. Trop higher at 16.4. Echocardiogram EF 75%. On Aspirin and heparin drip. Can't use Beta destiney as still hypotensive. Repeat troponin. 2. Recurrent SVT at rate 200 bpm. Did not terminated with 6 or 12 of adenosine but converted with the second dose of digoxin. Can't use BB or CA blockers for hypotension on Levophed.Dig level 1.4 today 3. Respiratory failure, on the ventilator. 4. Junctional rhythm. Keep the patient off any beta-destiney or calcium-channel destiney. 5.Septic shock. The patient is on broad-spectrum intravenous antibiotic as well as Levophed. 6. Morbid obesity 484 Lbs. 7. Severe hyperkalemia, potassium was 7.8 and went down to 5 after HD DW RN Subjective Subjective No further SVT overnight. In ICU on vent. On Levohed 5 mcg. Alert. Objective Last 24 Hour Vital Signs Date Time Temp Pulse Resp B/P (MAP) Pulse Ox O2 Delivery O2 Flow Rate FiO2 08/21/17 13:30 83 26 98 Mechanical Ventilator 70 103/37 08/21/17 13:10 86 26 70 08/21/17 13:00 100/45 08/21/17 13:00 79 26 99 Mechanical Ventilator 70 100/45 08/21/17 12:30 82 26 99 Mechanical Ventilator 70 106/35 08/21/17 12:15 82 26 99 Mechanical Ventilator 70 102/35 08/21/17 12:00 70 08/21/17 12:00 84 08/21/17 12:00 98.9 86 26 99 Mechanical Ventilator 70 92/60 08/21/17 11:45 82 26 99 Mechanical Ventilator 70 105/37 08/21/17 11:30 82 26 99 Mechanical Ventilator 70 112/61 08/21/17 11:15 85 26 99 Mechanical Ventilator 70 112/59 08/21/17 11:00 89 26 99 Mechanical Ventilator 70 109/58 08/21/17 11:00 109/59 08/21/17 10:45 97 26 99 Mechanical Ventilator 70 101/42 08/21/17 10:37 89 26 70 08/21/17 10:30 80 26 99 Mechanical Ventilator 70 109/60 08/21/17 10:25 113/63 08/21/17 10:15 78 26 99 Mechanical Ventilator 70 119/61 08/21/17 10:00 78 26 96 Mechanical Ventilator 70 128/63 08/21/17 10:00 128/63 08/21/17 09:45 78 26 96 Mechanical Ventilator 70 122/43 08/21/17 09:30 78 26 96 Mechanical Ventilator 70 126/63 08/21/17 09:15 78 26 96 Mechanical Ventilator 70 126/63 08/21/17 09:00 117 26 96 Mechanical Ventilator 70 113/63 08/21/17 09:00 113/63 08/21/17 08:58 117 26 70 08/21/17 08:45 101 26 96 Mechanical Ventilator 70 129/41 08/21/17 08:41 151 08/21/17 08:30 100.0 103 26 132/44 96 Mechanical Ventilator 70 08/21/17 08:15 103 26 132/44 96 Mechanical Ventilator 70 08/21/17 08:09 100.0 08/21/17 08:00 101 26 125/47 96 Mechanical Ventilator 70 08/21/17 08:00 125/47 08/21/17 08:00 70 08/21/17 07:45 110 26 125/47 97 Mechanical Ventilator 70 08/21/17 07:42 112 08/21/17 07:30 100.3 118 26 111/58 97 Mechanical Ventilator 70 08/21/17 07:15 118 26 108/57 97 Mechanical Ventilator 70 08/21/17 07:14 100 26 70 08/21/17 07:00 131 26 130/56 97 Mechanical Ventilator 70 08/21/17 06:30 113 26 123/66 97 Mechanical Ventilator 70 08/21/17 06:00 118 26 112/51 98 Mechanical Ventilator 70 08/21/17 06:00 123/66 08/21/17 05:39 88/47 08/21/17 05:30 148 26 88/47 97 Mechanical Ventilator 70 08/21/17 05:06 108 26 70 08/21/17 05:00 124/63 08/21/17 05:00 111 26 124/63 97 Mechanical Ventilator 70 08/21/17 04:30 124 26 123/67 97 Mechanical Ventilator 70 08/21/17 04:00 70 08/21/17 04:00 110 08/21/17 04:00 98.8 110 26 124/43 96 Mechanical Ventilator 70 08/21/17 04:00 124/43 08/21/17 03:30 144 26 117/54 98 Mechanical Ventilator 70 08/21/17 03:05 115 26 70 08/21/17 03:00 108 26 136/57 98 Mechanical Ventilator 70 08/21/17 03:00 136/57 08/21/17 02:30 100 26 91/33 98 Mechanical Ventilator 70 141/67 08/21/17 02:07 86/47 08/21/17 02:00 86/47 08/21/17 02:00 142 26 86/47 96 Mechanical Ventilator 70 08/21/17 01:30 142 26 62/34 95 Mechanical Ventilator 70 66/45 08/21/17 01:07 141 26 70 08/21/17 01:00 140 26 94/62 97 Mechanical Ventilator 70 93/45 08/21/17 00:30 134 20 93/59 96 Mechanical Ventilator 70 80/47 08/21/17 00:00 105/52 08/21/17 00:00 99.3 140 26 105/52 97 Mechanical Ventilator 70 08/21/17 00:00 140 08/21/17 00:00 70 08/20/17 23:30 140 26 97/52 97 Mechanical Ventilator 70 08/20/17 23:03 140 26 70 08/20/17 23:00 140 26 94/53 97 Mechanical Ventilator 70 08/20/17 23:00 94/43 08/20/17 22:30 139 26 86/54 97 Mechanical Ventilator 70 102/51 08/20/17 22:00 93/43 08/20/17 22:00 139 23 93/43 96 Mechanical Ventilator 70 08/20/17 21:30 143 26 89/58 95 Mechanical Ventilator 70 08/20/17 21:17 146 26 70 08/20/17 21:00 107/53 08/20/17 21:00 84 26 107/53 97 Mechanical Ventilator 70 08/20/17 20:30 84 26 101/52 98 Mechanical Ventilator 70 08/20/17 20:00 83 26 100/51 97 Mechanical Ventilator 70 08/20/17 20:00 83 08/20/17 20:00 70 08/20/17 20:00 100/51 08/20/17 19:30 99.7 82 26 100/54 97 Mechanical Ventilator 70 08/20/17 19:27 111/86 08/20/17 19:12 87 26 70 08/20/17 19:00 86 20 110/57 97 Mechanical Ventilator 70 08/20/17 19:00 110/57 08/20/17 18:45 86 26 113/57 100 Mechanical Ventilator 70 08/20/17 18:30 86 26 111/86 100 Mechanical Ventilator 70 08/20/17 18:00 111/86 08/20/17 18:00 86 26 111/86 100 Mechanical Ventilator 70 08/20/17 18:00 70 08/20/17 17:45 85 26 104/51 100 Mechanical Ventilator 80 08/20/17 17:37 Mechanical Ventilator 90 08/20/17 17:35 98.4 85 32 121/56 Mechanical Ventilator 90 08/20/17 17:30 85 26 86/43 100 Mechanical Ventilator 100 08/20/17 17:20 83 26 80 08/20/17 17:15 86 26 100/49 100 Mechanical Ventilator 100 08/20/17 17:00 99.0 08/20/17 17:00 121/56 08/20/17 17:00 85 20 121/65 100 Mechanical Ventilator 100 08/20/17 16:45 84 21 158/68 100 Mechanical Ventilator 100 08/20/17 16:45 84 21 150/67 100 Mechanical Ventilator 100 08/20/17 16:30 84 21 150/67 100 Mechanical Ventilator 100 08/20/17 16:15 84 21 150/67 100 Mechanical Ventilator 100 08/20/17 16:00 100 08/20/17 16:00 100.3 84 24 115/48 100 Mechanical Ventilator 100 08/20/17 16:00 84 08/20/17 16:00 115/48 08/20/17 15:57 87/46 08/20/17 15:45 84 24 104/51 100 Mechanical Ventilator 100 08/20/17 15:30 86 24 94/47 100 Mechanical Ventilator 100 08/20/17 15:18 85 26 100 08/20/17 15:15 85 24 98/48 100 Mechanical Ventilator 100 08/20/17 15:00 86 24 93/50 100 Mechanical Ventilator 100 08/20/17 15:00 93/50 08/20/17 14:52 84 08/20/17 14:45 83 24 77/48 100 Mechanical Ventilator 100 08/20/17 14:30 87 24 76/47 100 Mechanical Ventilator 100 08/20/17 14:15 88 24 73/49 100 Mechanical Ventilator 100 08/20/17 14:00 97.2 81 32 62/38 Mechanical Ventilator 90 08/20/17 14:00 Mechanical Ventilator 90 08/20/17 14:00 73/49 08/20/17 14:00 78 23 64/45 100 Mechanical Ventilator 100 Intake and Output 08/20/17 08/21/17 19:00 07:00 Intake Total 2410.00 ml 1688.75 ml Output Total 40 ml 125 ml Balance 2370.00 ml 1563.75 ml Intake Oral 0 ml 0 ml IV Total 2410.00 ml 1688.75 ml Output Urine Total 40 ml 125 ml Hemodialysis UF 0 ml Laboratory Tests Test 08/21/17 04:30 08/21/17 11:35 White Blood Count 16.2 K/UL (4.8-10.8) H Red Blood Count 4.16 M/UL (4.20-5.40) L Hemoglobin 9.8 G/DL (12.0-16.0) L Hematocrit 32.6 % (37.0-47.0) L Mean Corpuscular Volume 79 FL (80-99) L Mean Corpuscular Hemoglobin 23.6 PG (27.0-31.0) L Mean Corpuscular Hemoglobin Concent 30.0 G/DL (32.0-36.0) L Red Cell Distribution Width 17.4 % (11.6-14.8) H Platelet Count 119 K/UL (150-450) L Mean Platelet Volume 9.1 FL (6.5-10.1) Neutrophils (%) (Auto) % (45.0-75.0) Lymphocytes (%) (Auto) % (20.0-45.0) Monocytes (%) (Auto) % (1.0-10.0) Eosinophils (%) (Auto) % (0.0-3.0) Basophils (%) (Auto) % (0.0-2.0) Differential Total Cells Counted 100 Neutrophils % (Manual) 87 % (45-75) H Lymphocytes % (Manual) 9 % (20-45) L Monocytes % (Manual) 2 % (1-10) Eosinophils % (Manual) 0 % (0-3) Basophils % (Manual) 0 % (0-2) Band Neutrophils 2 % (0-8) Nucleated Red Blood Cells 3 /100 WBC Platelet Estimate Decreased L Platelet Morphology Normal Hypochromasia 2+ Anisocytosis 1+ Microcytosis 1+ Prothrombin Time 20.2 SEC (9.30-11.50) H Prothromb Time International Ratio 1.9 (0.9-1.1) H Activated Partial Thromboplast Time 32 SEC (23-33) Sodium Level 137 MMOL/L (136-145) Potassium Level 3.5 MMOL/L (3.5-5.1) Chloride Level 95 MMOL/L (98-107) L Carbon Dioxide Level 30 MMOL/L (21-32) Anion Gap 12 mmol/L (5-15) Blood Urea Nitrogen 37 mg/dL (7-18) H Creatinine 4.0 MG/DL (0.55-1.30) H Estimat Glomerular Filtration Rate 13.8 mL/min (>60) Glucose Level 184 MG/DL (74-106) H Lactic Acid Level 2.90 mmol/L (0.66-2.22) H 2.50 mmol/L (0.66-2.22) H Uric Acid 7.4 MG/DL (2.6-7.2) H Calcium Level 7.6 MG/DL (8.5-10.1) L Phosphorus Level 2.5 MG/DL (2.5-4.9) Magnesium Level 1.5 MG/DL (1.8-2.4) L Total Bilirubin 1.9 MG/DL (0.2-1.0) H Direct Bilirubin 1.1 MG/DL (0.0-0.3) H Aspartate Amino Transf (AST/SGOT) 2499 U/L (15-37) H Alanine Aminotransferase (ALT/SGPT) 3863 U/L (12-78) H Alkaline Phosphatase 86 U/L (46-116) Total Creatine Kinase 780 U/L (26-308) H Troponin I 16.427 ng/mL (0.000-0.056) Pending C-Reactive Protein, Quantitative 27.5 mg/dL (0.00-0.90) H Pro-B-Type Natriuretic Peptide 83877 pg/mL (0-125) H Total Protein 6.5 G/DL (6.4-8.2) Albumin 2.3 G/DL (3.4-5.0) L Globulin 4.2 g/dL Albumin/Globulin Ratio 0.5 (1.0-2.7) L Digoxin Level 1.4 NG/ML (0.9-2.0) Hepatitis A IgM Antibody Pending Hepatitis B Surface Antigen Pending Hepatitis B Core IgM Antibody Pending Hepatitis C Antibody Pending Microbiology Date/Time Source Procedure Growth Status 08/19/17 07:55 Blood Blood Culture - Preliminary NO GROWTH AFTER 24 HOURS Resulted 08/19/17 07:50 Blood Blood Culture - Preliminary NO GROWTH AFTER 24 HOURS Resulted 08/19/17 08:45 Nasal Nares Left MRSA Culture - Final Staphylococcus Aureus - Mrsa Complete 08/19/17 08:45 Nasal Nares Influenza Types A,B Antigen (ZECHARIAH) - Final Complete 08/19/17 08:45 Rectum VRE Culture - Final NO VANCOMYCIN RESISTANT ENTEROCOCCUS ... Complete Objective LUNGS: Decreased breath sounds.Orally intubated CARDIOVASCULAR: Regular S1 and S2 with no gallop. ABDOMEN: Morbidly obese. EXTREMITIES: A 2+ pitting edema. DIANDRA CUMMINGS Aug 21, 2017 14:00
[2017-08-21] MEDS ORDERED: D5W 275ml ONE (14:11)
[2017-08-21] MEDS ORDERED: NS 500ML ONE ×2 (14:11→14:13)
[2017-08-21] MEDS ORDERED: Tubing IV Secondary IV ONE ×2 (14:11→14:13)
[2017-08-21] MEDS ORDERED: NS 275ml ONE (14:13)
[2017-08-21] MEDS: Albuterol/Ipratropium 3ml neb HHN PRN (14:42)
--- NOTE | 2017-08-21 16:41 | Nephrology Progress Note ---
Assessment/Plan Problem List: (1) Acute renal failure (ARF) (2) Acute respiratory acidosis (3) Lactic acid acidosis (4) Septic shock (5) Acute respiratory failure with hypoxia and hypercapnia (6) Elevated troponin I level Assessment acute renal failure Hyperkalemia sepsis, high Lactic , acidosis low BP resp failure obese Plan dialysed 08/19 redialys and again 08/22 Arterial line per cardiology and ID and pulm discussed with ID Subjective ROS Limited/Unobtainable: No Constitutional: Reports: malaise, weakness Objective Objective Last 24 Hour Vital Signs Date Time Temp Pulse Resp B/P (MAP) Pulse Ox O2 Delivery O2 Flow Rate FiO2 08/21/17 15:30 65 26 98 Mechanical Ventilator 70 121/60 08/21/17 15:15 77 26 98 Mechanical Ventilator 70 115/42 08/21/17 15:03 82 26 Mechanical Ventilator 70 08/21/17 15:01 70 08/21/17 15:00 78 26 98 Mechanical Ventilator 70 105/48 08/21/17 15:00 119/48 08/21/17 14:48 86 26 99 Mechanical Ventilator 70 08/21/17 14:37 86 26 70 08/21/17 14:30 81 26 98 Mechanical Ventilator 70 113/64 08/21/17 14:15 80 26 98 Mechanical Ventilator 70 116/54 08/21/17 14:00 78 26 98 Mechanical Ventilator 70 123/34 08/21/17 14:00 97/40 08/21/17 13:45 78 26 98 Mechanical Ventilator 70 110/38 08/21/17 13:30 83 26 98 Mechanical Ventilator 70 103/37 08/21/17 13:10 86 26 70 08/21/17 13:00 100/45 08/21/17 13:00 79 26 99 Mechanical Ventilator 70 100/45 08/21/17 12:30 82 26 99 Mechanical Ventilator 70 106/35 08/21/17 12:15 82 26 99 Mechanical Ventilator 70 102/35 08/21/17 12:00 70 08/21/17 12:00 84 08/21/17 12:00 98.9 86 26 99 Mechanical Ventilator 70 92/60 08/21/17 11:45 82 26 99 Mechanical Ventilator 70 105/37 08/21/17 11:30 82 26 99 Mechanical Ventilator 70 112/61 08/21/17 11:15 85 26 99 Mechanical Ventilator 70 112/59 18 11:00 89 26 99 Mechanical Ventilator 70 109/58 18 11:00 109/59 18 10:45 97 26 99 Mechanical Ventilator 70 101/42 18 10:37 89 26 70 18 10:30 80 26 99 Mechanical Ventilator 70 109/60 18 10:25 113/63 08/21/17 10:15 78 26 99 Mechanical Ventilator 70 119/61 08/21/17 10:00 78 26 96 Mechanical Ventilator 70 128/63 08/21/17 10:00 128/63 08/21/17 09:45 78 26 96 Mechanical Ventilator 70 122/43 08/21/17 09:30 78 26 96 Mechanical Ventilator 70 126/63 08/21/17 09:15 78 26 96 Mechanical Ventilator 70 126/63 08/21/17 09:00 117 26 96 Mechanical Ventilator 70 113/63 08/21/17 09:00 113/63 08/21/17 08:58 117 26 70 08/21/17 08:45 101 26 96 Mechanical Ventilator 70 129/41 08/21/17 08:41 151 08/21/17 08:30 100.0 103 26 132/44 96 Mechanical Ventilator 70 08/21/17 08:15 103 26 132/44 96 Mechanical Ventilator 70 08/21/17 08:09 100.0 08/21/17 08:00 101 26 125/47 96 Mechanical Ventilator 70 08/21/17 08:00 125/47 08/21/17 08:00 70 08/21/17 07:45 110 26 125/47 97 Mechanical Ventilator 70 08/21/17 07:42 112 08/21/17 07:30 100.3 118 26 111/58 97 Mechanical Ventilator 70 08/21/17 07:15 118 26 108/57 97 Mechanical Ventilator 70 08/21/17 07:14 100 26 70 08/21/17 07:00 131 26 130/56 97 Mechanical Ventilator 70 08/21/17 06:30 113 26 123/66 97 Mechanical Ventilator 70 08/21/17 06:00 118 26 112/51 98 Mechanical Ventilator 70 08/21/17 06:00 123/66 08/21/17 05:39 88/47 08/21/17 05:30 148 26 88/47 97 Mechanical Ventilator 70 08/21/17 05:06 108 26 70 08/21/17 05:00 124/63 08/21/17 05:00 111 26 124/63 97 Mechanical Ventilator 70 08/21/17 04:30 124 26 123/67 97 Mechanical Ventilator 70 08/21/17 04:00 70 08/21/17 04:00 110 08/21/17 04:00 98.8 110 26 124/43 96 Mechanical Ventilator 70 08/21/17 04:00 124/43 08/21/17 03:30 144 26 117/54 98 Mechanical Ventilator 70 08/21/17 03:05 115 26 70 08/21/17 03:00 108 26 136/57 98 Mechanical Ventilator 70 08/21/17 03:00 136/57 08/21/17 02:30 100 26 91/33 98 Mechanical Ventilator 70 141/67 08/21/17 02:07 86/47 08/21/17 02:00 86/47 08/21/17 02:00 142 26 86/47 96 Mechanical Ventilator 70 08/21/17 01:30 142 26 62/34 95 Mechanical Ventilator 70 66/45 08/21/17 01:07 141 26 70 08/21/17 01:00 140 26 94/62 97 Mechanical Ventilator 70 93/45 08/21/17 00:30 134 20 93/59 96 Mechanical Ventilator 70 80/47 08/21/17 00:00 105/52 08/21/17 00:00 99.3 140 26 105/52 97 Mechanical Ventilator 70 08/21/17 00:00 140 08/21/17 00:00 70 08/20/17 23:30 140 26 97/52 97 Mechanical Ventilator 70 08/20/17 23:03 140 26 70 08/20/17 23:00 140 26 94/53 97 Mechanical Ventilator 70 08/20/17 23:00 94/43 08/20/17 22:30 139 26 86/54 97 Mechanical Ventilator 70 102/51 08/20/17 22:00 93/43 08/20/17 22:00 139 23 93/43 96 Mechanical Ventilator 70 08/20/17 21:30 143 26 89/58 95 Mechanical Ventilator 70 08/20/17 21:17 146 26 70 08/20/17 21:00 107/53 08/20/17 21:00 84 26 107/53 97 Mechanical Ventilator 70 08/20/17 20:30 84 26 101/52 98 Mechanical Ventilator 70 08/20/17 20:00 83 26 100/51 97 Mechanical Ventilator 70 08/20/17 20:00 83 08/20/17 20:00 70 08/20/17 20:00 100/51 08/20/17 19:30 99.7 82 26 100/54 97 Mechanical Ventilator 70 08/20/17 19:27 111/86 08/20/17 19:12 87 26 70 08/20/17 19:00 86 20 110/57 97 Mechanical Ventilator 70 08/20/17 19:00 110/57 08/20/17 18:45 86 26 113/57 100 Mechanical Ventilator 70 08/20/17 18:30 86 26 111/86 100 Mechanical Ventilator 70 08/20/17 18:00 111/86 08/20/17 18:00 86 26 111/86 100 Mechanical Ventilator 70 08/20/17 18:00 70 08/20/17 17:45 85 26 104/51 100 Mechanical Ventilator 80 08/20/17 17:37 Mechanical Ventilator 90 08/20/17 17:35 98.4 85 32 121/56 Mechanical Ventilator 90 08/20/17 17:30 85 26 86/43 100 Mechanical Ventilator 100 08/20/17 17:20 83 26 80 08/20/17 17:15 86 26 100/49 100 Mechanical Ventilator 100 08/20/17 17:00 99.0 08/20/17 17:00 121/56 08/20/17 17:00 85 20 121/65 100 Mechanical Ventilator 100 08/20/17 16:45 84 21 158/68 100 Mechanical Ventilator 100 08/20/17 16:45 84 21 150/67 100 Mechanical Ventilator 100 Intake and Output 08/20/17 08/21/17 19:00 07:00 Intake Total 2410.00 ml 1688.75 ml Output Total 40 ml 125 ml Balance 2370.00 ml 1563.75 ml Intake Oral 0 ml 0 ml IV Total 2410.00 ml 1688.75 ml Output Urine Total 40 ml 125 ml Hemodialysis UF 0 ml Laboratory Tests 08/21/17 04:30: White Blood Count 16.2H, Red Blood Count 4.16L, Hemoglobin 9.8L, Hematocrit 32.6L, Mean Corpuscular Volume 79L, Mean Corpuscular Hemoglobin 23.6L, Mean Corpuscular Hemoglobin Concent 30.0L, Red Cell Distribution Width 17.4H, Platelet Count 119L, Mean Platelet Volume 9.1, Neutrophils (%) (Auto) , Lymphocytes (%) (Auto) , Monocytes (%) (Auto) , Eosinophils (%) (Auto) , Basophils (%) (Auto) , Differential Total Cells Counted 100, Neutrophils % ( Manual) 87H, Lymphocytes % (Manual) 9L, Monocytes % (Manual) 2, Eosinophils % ( Manual) 0, Basophils % (Manual) 0, Band Neutrophils 2, Nucleated Red Blood Cells 3, Platelet Estimate DecreasedL, Platelet Morphology Normal, Hypochromasia 2+, Anisocytosis 1+, Microcytosis 1+, Prothrombin Time 20.2H, Prothromb Time International Ratio 1.9H, Activated Partial Thromboplast Time 32 , Sodium Level 137, Potassium Level 3.5, Chloride Level 95L, Carbon Dioxide Level 30, Anion Gap 12, Blood Urea Nitrogen 37H, Creatinine 4.0H, Estimat Glomerular Filtration Rate 13.8, Glucose Level 184H, Lactic Acid Level 2.90H, Uric Acid 7.4H, Calcium Level 7.6L, Phosphorus Level 2.5, Magnesium Level 1.5L, Total Bilirubin 1.9H, Direct Bilirubin 1.1H, Aspartate Amino Transf (AST/SGOT) 2499H, Alanine Aminotransferase (ALT/SGPT) 3863H, Alkaline Phosphatase 86, Total Creatine Kinase 780H, Troponin I 16.427H, C-Reactive Protein, Quantitative 27.5H, Pro-B-Type Natriuretic Peptide 30317S, Total Protein 6.5, Albumin 2.3L, Globulin 4.2, Albumin/Globulin Ratio 0.5L, Digoxin Level 1.4, Hepatitis A IgM Antibody [Pending], Hepatitis B Surface Antigen [Pending], Hepatitis B Core IgM Antibody [Pending], Hepatitis C Antibody [Pending] 08/21/17 11:35: Lactic Acid Level 2.50H, Troponin I 13.077H Height (Feet): 5 Height (Inches): 3.00 Weight (Pounds): 484 General Appearance: no apparent distress EENT: other - on Vent Cardiovascular: tachycardia Respiratory/Chest: decreased breath sounds Abdomen: distended AGUSTIN CONTRERAS Aug 21, 2017 16:41
[2017-08-21] MEDS: Meropenem 500 MG in NS 55 ML IVPB SCH (17:01)
--- NOTE | 2017-08-21 17:57 | Diagnostic Imaging Report ---
Indication: Dyspnea Technique: XRAY Chest 1v Comparison: 08/20/2017 Findings: Endotracheal tube and nontunneled dialysis catheter unchanged in position. NG tube courses below level of diaphragms, tip beyond the inferior margin of the film. Heart is enlarged but stable. Interstitial opacities and confluent bilateral airspace opacities compatible with a severe alveolar filling process such as pulmonary edema, multifocal pneumonia and/or ARDS. There is slight improved aeration of the right midlung compared to the prior exam. No pneumothorax. Impression: Extensive interstitial and bilateral airspace opacities with slight improved aeration of the right midlung compared to one day prior.
--- NOTE | 2017-08-21 18:19 | General Progress Note ---
Assessment/Plan Problem List: (1) SVT (supraventricular tachycardia) ICD Codes: I47.1 - Supraventricular tachycardia SNOMED: 9217908 (2) Acute respiratory failure with hypoxia and hypercapnia ICD Codes: J96.01 - Acute respiratory failure with hypoxia; J96.02 - Acute respiratory failure with hypercapnia SNOMED: 81455311, 46709926, 416381739 (3) Septic shock ICD Codes: A41.9 - Sepsis, unspecified organism; R65.21 - Severe sepsis with septic shock SNOMED: 55208288 (4) KASHIF (acute kidney injury) ICD Codes: N17.9 - Acute kidney failure, unspecified SNOMED: 51363938 (5) Lactic acid acidosis ICD Codes: E87.2 - Acidosis SNOMED: 31369569 (6) Hyperkalemia ICD Codes: E87.5 - Hyperkalemia; J96.02 - Acute respiratory failure with hypercapnia SNOMED: 98917279, 58506479, 477220031 (7) Acute toxic metabolic encephalopathy (8) Shock liver ICD Codes: K72.00 - Acute and subacute hepatic failure without coma SNOMED: 992539189 (9) Non-STEMI (non-ST elevated myocardial infarction) ICD Codes: I21.4 - Non-ST elevation (NSTEMI) myocardial infarction; J96.02 - Acute respiratory failure with hypercapnia SNOMED: 298771760, 66517064, 089323508 (10) DM2 (diabetes mellitus, type 2) ICD Codes: E11.9 - Type 2 diabetes mellitus without complications SNOMED: 16032016 (11) Asthma ICD Codes: J45.909 - Unspecified asthma, uncomplicated SNOMED: 034025298 (12) GERD (gastroesophageal reflux disease) ICD Codes: K21.9 - Gastro-esophageal reflux disease without esophagitis SNOMED: 089759304 Status: unchanged Assessment/Plan Cont ICU care Pulmonology, Nephrology, GI, ID, Cardiology consulted Empiric vanco and meropenem per ID (08/19-) F/u cultures Cont on vent and wean as tolerated Daily SBTs, sedation holiday Cont pressors to maintain MAP 65 and above Arterial line placed 08/20/17 Trend lactate--downtrending Trend trop/EKG--cont to uptrend ASA, statin Check ECHO--EF 70% Cont HD per renal (started on HD 08/19) Trend BMP closely s/p mucomyst IV for shock liver/hepatitis per GI Trend LFTs--downtrending Hold tube feeds for now PPI Pain control, supportive care, bowel regimen Attempt to contact family for GOC discussion DVT Prophylaxis: HSQ Code Status: Full Hospital Classification Declaration: Based on this initial evaluation, and depending on the patient's clinical course, I anticipate that this patient will require hospitalization for 4-5 days for acute respiratory failure, septic shock and close respiratory/hemodynamic monitoring. At the time of my involvement, the patient's condition was critical with high potential for and/or physiologic deterioration secondary to acute respiratory failure, septic shock, shock liver, KASHIF as delineated in the note above. On the above date of service, I spent a total of 39minutes in the ICU evaluating , managing, and providing critical care services to this patient, including time spent documenting these activities, counseling patient/family, and coordinating care. Critical care services performed include: Telemetry Review Hemodynamic measurement interpretation Laboratory data review and interpretation Ventilator setting review, management, and adjustment Discussion of care plans with patient, family, and/or surrogate decision makers Discussion of patient's care with primary medical team, surgical team, and/or consulting service Decision to obtain further radiologic evaluation, after consideration of risk/ benefit ratio Decision to perform invasive procedure, after consideration of risk/benefit ratio Review of most recent microbiology results with assessment and modification of antimicrobial coverage Discussion of patient's code status and further advancement towards the ultimate goals of care Plan outlined above discussed with patient/family, [employer]CO[employer]ER, ICU team, and involved physicians/consultants. D/w ID re abx. D/w pulm re pressors, vent settings Time of note may not reflect time of encounter. Subjective Date patient seen: Aug 21, 2017 Time patient seen: 18:11 ROS Limited/Unobtainable: Yes Allergies: Coded Allergies: No Known Allergies (Unverified , 06/01/17) Subjective No acute o/n events Cont on HD per renal, K improved Arterial line placed yesterday for more precise BP measures Cont on pressors WBC remains elevated at 16K Lactate downtrending Pt intubated, sedated Unable to obtain ROS as pt sedated Objective Last 24 Hour Vital Signs Date Time Temp Pulse Resp B/P (MAP) Pulse Ox O2 Delivery O2 Flow Rate FiO2 08/21/17 17:00 78 26 98 Mechanical Ventilator 70 111/57 08/21/17 16:57 82 26 70 08/21/17 16:45 75 26 98 Mechanical Ventilator 70 110/58 08/21/17 16:30 75 26 98 Mechanical Ventilator 70 110/57 08/21/17 16:15 76 26 98 Mechanical Ventilator 70 109/56 08/21/17 16:00 98.6 76 26 98 Mechanical Ventilator 70 110/58 08/21/17 16:00 70 08/21/17 16:00 77 08/21/17 15:45 78 26 98 Mechanical Ventilator 70 107/57 08/21/17 15:30 65 26 98 Mechanical Ventilator 70 121/60 08/21/17 15:15 77 26 98 Mechanical Ventilator 70 115/42 08/21/17 15:03 82 26 Mechanical Ventilator 70 08/21/17 15:01 70 08/21/17 15:00 78 26 98 Mechanical Ventilator 70 105/48 08/21/17 15:00 119/48 08/21/17 14:48 86 26 99 Mechanical Ventilator 70 08/21/17 14:37 86 26 70 08/21/17 14:30 81 26 98 Mechanical Ventilator 70 113/64 08/21/17 14:15 80 26 98 Mechanical Ventilator 70 116/54 08/21/17 14:00 78 26 98 Mechanical Ventilator 70 123/34 08/21/17 14:00 97/40 08/21/17 13:45 78 26 98 Mechanical Ventilator 70 110/38 08/21/17 13:30 83 26 98 Mechanical Ventilator 70 103/37 08/21/17 13:10 86 26 70 08/21/17 13:00 100/45 08/21/17 13:00 79 26 99 Mechanical Ventilator 70 100/45 08/21/17 12:30 82 26 99 Mechanical Ventilator 70 106/35 08/21/17 12:15 82 26 99 Mechanical Ventilator 70 102/35 08/21/17 12:00 70 08/21/17 12:00 84 08/21/17 12:00 98.9 86 26 99 Mechanical Ventilator 70 92/60 08/21/17 11:45 82 26 99 Mechanical Ventilator 70 105/37 08/21/17 11:30 82 26 99 Mechanical Ventilator 70 112/61 08/21/17 11:15 85 26 99 Mechanical Ventilator 70 112/59 08/21/17 11:00 89 26 99 Mechanical Ventilator 70 109/58 08/21/17 11:00 109/59 08/21/17 10:45 97 26 99 Mechanical Ventilator 70 101/42 08/21/17 10:37 89 26 70 08/21/17 10:30 80 26 99 Mechanical Ventilator 70 109/60 08/21/17 10:25 113/63 08/21/17 10:15 78 26 99 Mechanical Ventilator 70 119/61 08/21/17 10:00 78 26 96 Mechanical Ventilator 70 128/63 08/21/17 10:00 128/63 08/21/17 09:45 78 26 96 Mechanical Ventilator 70 122/43 08/21/17 09:30 78 26 96 Mechanical Ventilator 70 126/63 08/21/17 09:15 78 26 96 Mechanical Ventilator 70 126/63 08/21/17 09:00 117 26 96 Mechanical Ventilator 70 113/63 08/21/17 09:00 113/63 08/21/17 08:58 117 26 70 08/21/17 08:45 101 26 96 Mechanical Ventilator 70 129/41 08/21/17 08:41 151 08/21/17 08:30 100.0 103 26 132/44 96 Mechanical Ventilator 70 08/21/17 08:15 103 26 132/44 96 Mechanical Ventilator 70 08/21/17 08:09 100.0 08/21/17 08:00 101 26 125/47 96 Mechanical Ventilator 70 08/21/17 08:00 125/47 08/21/17 08:00 70 08/21/17 07:45 110 26 125/47 97 Mechanical Ventilator 70 08/21/17 07:42 112 08/21/17 07:30 100.3 118 26 111/58 97 Mechanical Ventilator 70 08/21/17 07:15 118 26 108/57 97 Mechanical Ventilator 70 08/21/17 07:14 100 26 70 08/21/17 07:00 131 26 130/56 97 Mechanical Ventilator 70 08/21/17 06:30 113 26 123/66 97 Mechanical Ventilator 70 08/21/17 06:00 118 26 112/51 98 Mechanical Ventilator 70 08/21/17 06:00 123/66 08/21/17 05:39 88/47 08/21/17 05:30 148 26 88/47 97 Mechanical Ventilator 70 08/21/17 05:06 108 26 70 08/21/17 05:00 124/63 08/21/17 05:00 111 26 124/63 97 Mechanical Ventilator 70 08/21/17 04:30 124 26 123/67 97 Mechanical Ventilator 70 08/21/17 04:00 70 08/21/17 04:00 110 08/21/17 04:00 98.8 110 26 124/43 96 Mechanical Ventilator 70 08/21/17 04:00 124/43 08/21/17 03:30 144 26 117/54 98 Mechanical Ventilator 70 08/21/17 03:05 115 26 70 08/21/17 03:00 108 26 136/57 98 Mechanical Ventilator 70 08/21/17 03:00 136/57 08/21/17 02:30 100 26 91/33 98 Mechanical Ventilator 70 141/67 08/21/17 02:07 86/47 08/21/17 02:00 86/47 08/21/17 02:00 142 26 86/47 96 Mechanical Ventilator 70 08/21/17 01:30 142 26 62/34 95 Mechanical Ventilator 70 66/45 08/21/17 01:07 141 26 70 08/21/17 01:00 140 26 94/62 97 Mechanical Ventilator 70 93/45 08/21/17 00:30 134 20 93/59 96 Mechanical Ventilator 70 80/47 08/21/17 00:00 105/52 08/21/17 00:00 99.3 140 26 105/52 97 Mechanical Ventilator 70 08/21/17 00:00 140 08/21/17 00:00 70 08/20/17 23:30 140 26 97/52 97 Mechanical Ventilator 70 08/20/17 23:03 140 26 70 08/20/17 23:00 140 26 94/53 97 Mechanical Ventilator 70 08/20/17 23:00 94/43 08/20/17 22:30 139 26 86/54 97 Mechanical Ventilator 70 102/51 08/20/17 22:00 93/43 08/20/17 22:00 139 23 93/43 96 Mechanical Ventilator 70 08/20/17 21:30 143 26 89/58 95 Mechanical Ventilator 70 08/20/17 21:17 146 26 70 08/20/17 21:00 107/53 08/20/17 21:00 84 26 107/53 97 Mechanical Ventilator 70 08/20/17 20:30 84 26 101/52 98 Mechanical Ventilator 70 08/20/17 20:00 83 26 100/51 97 Mechanical Ventilator 70 08/20/17 20:00 83 08/20/17 20:00 70 08/20/17 20:00 100/51 08/20/17 19:30 99.7 82 26 100/54 97 Mechanical Ventilator 70 08/20/17 19:27 111/86 08/20/17 19:12 87 26 70 08/20/17 19:00 86 20 110/57 97 Mechanical Ventilator 70 08/20/17 19:00 110/57 08/20/17 18:45 86 26 113/57 100 Mechanical Ventilator 70 08/20/17 18:30 86 26 111/86 100 Mechanical Ventilator 70 Intake and Output 08/20/17 08/21/17 19:00 07:00 Intake Total 2410.00 ml 1688.75 ml Output Total 40 ml 125 ml Balance 2370.00 ml 1563.75 ml Intake Oral 0 ml 0 ml IV Total 2410.00 ml 1688.75 ml Output Urine Total 40 ml 125 ml Hemodialysis UF 0 ml Laboratory Tests 08/21/17 04:30: White Blood Count 16.2H, Red Blood Count 4.16L, Hemoglobin 9.8L, Hematocrit 32.6L, Mean Corpuscular Volume 79L, Mean Corpuscular Hemoglobin 23.6L, Mean Corpuscular Hemoglobin Concent 30.0L, Red Cell Distribution Width 17.4H, Platelet Count 119L, Mean Platelet Volume 9.1, Neutrophils (%) (Auto) , Lymphocytes (%) (Auto) , Monocytes (%) (Auto) , Eosinophils (%) (Auto) , Basophils (%) (Auto) , Differential Total Cells Counted 100, Neutrophils % ( Manual) 87H, Lymphocytes % (Manual) 9L, Monocytes % (Manual) 2, Eosinophils % ( Manual) 0, Basophils % (Manual) 0, Band Neutrophils 2, Nucleated Red Blood Cells 3, Platelet Estimate DecreasedL, Platelet Morphology Normal, Hypochromasia 2+, Anisocytosis 1+, Microcytosis 1+, Prothrombin Time 20.2H, Prothromb Time International Ratio 1.9H, Activated Partial Thromboplast Time 32 , Sodium Level 137, Potassium Level 3.5, Chloride Level 95L, Carbon Dioxide Level 30, Anion Gap 12, Blood Urea Nitrogen 37H, Creatinine 4.0H, Estimat Glomerular Filtration Rate 13.8, Glucose Level 184H, Lactic Acid Level 2.90H, Uric Acid 7.4H, Calcium Level 7.6L, Phosphorus Level 2.5, Magnesium Level 1.5L, Total Bilirubin 1.9H, Direct Bilirubin 1.1H, Aspartate Amino Transf (AST/SGOT) 2499H, Alanine Aminotransferase (ALT/SGPT) 3863H, Alkaline Phosphatase 86, Total Creatine Kinase 780H, Troponin I 16.427H, C-Reactive Protein, Quantitative 27.5H, Pro-B-Type Natriuretic Peptide 58532H, Total Protein 6.5, Albumin 2.3L, Globulin 4.2, Albumin/Globulin Ratio 0.5L, Digoxin Level 1.4, Hepatitis A IgM Antibody [Pending], Hepatitis B Surface Antigen [Pending], Hepatitis B Core IgM Antibody [Pending], Hepatitis C Antibody [Pending] 08/21/17 11:35: Lactic Acid Level 2.50H, Troponin I 13.077H Height (Feet): 5 Height (Inches): 3.00 Weight (Pounds): 484 Objective General: intubated, sedated, morbid obesity Head: normocephalic, without obvious abnormality, atraumatic Eyes: conjunctivae/corneas clear. PERRL, EOM's intact Throat: lips, mucosa, and tongue normal. MMM Neck: supple, symmetrical, trachea midline, and no JVD Lungs: clear to auscultation bilaterally Heart: regular rate and rhythm, S1, S2 normal, no murmur, click, rub or gallop Abdomen: soft, non-tender, non-distended, bowel sounds normal Extremities: extremities normal, atraumatic, no cyanosis or edema Pulses: 2+ and symmetric Skin: skin color, texture, turgor normal; no rashes or lesions Neurologic: sedated Cassie Bolivar M.D. Aug 21, 2017 18:19
[2017-08-21] MEDS ORDERED: Heparin Sod 1000 units/ml 10ml IV ONE (19:45)
[2017-08-21] MEDS: Dyna-Hex 2% Top Sol 2oz TOPIC SCH (20:34)
[2017-08-21] MEDS: Epogen (for ESRD on dialysis) SUBQ SCH (21:08)
[2017-08-22] VITALS (29 sets, daily range): BP systolic 94–126; BP diastolic 42–66
[2017-08-22] MEDS ORDERED: Heparin 5000 units/ml inj IV ONE (03:45)
[2017-08-22] MEDS ORDERED: Heparin 25,000 units/D5W 500ml (ACS/MI) IV SCH (03:45)
[2017-08-22 04:49] LABS: HEMATOCRIT 29.2 % (37.0-47.0); HEMOGLOBIN 8.7 G/DL (12.0-16.0); MEAN CORPUSCULAR VOLUME 79 FL (80-99); PLATELET COUNT 103 K/UL (150-450); RED BLOOD COUNT 3.71 M/UL (4.20-5.40); RED CELL DISTRIBUTION WIDTH 17.5 % (11.6-14.8); WHITE BLOOD COUNT 15.8 K/UL (4.8-10.8)
[2017-08-22 05:17] LABS: ALANINE AMINOTRANSFERASE 2460 U/L (12-78); ALBUMIN/GLOBULIN RATIO 0.5 (1.0-2.7); ALKALINE PHOSPHATASE 81 U/L (46-116); ANION GAP 10 mmol/L (5-15); ASPARTATE AMINO TRANSFERASE 1060 U/L (15-37); BILIRUBIN,TOTAL 1.7 MG/DL (0.2-1.0); BLOOD UREA NITROGEN 47 mg/dL (7-18); CALCIUM 7.8 MG/DL (8.5-10.1); CARBON DIOXIDE 29 MMOL/L (21-32); CHLORIDE 98 MMOL/L (98-107); CREATININE 4.7 MG/DL (0.55-1.30); POTASSIUM 3.7 MMOL/L (3.5-5.1); SODIUM 137 MMOL/L (136-145)
[2017-08-22 05:19] LABS: BILIRUBIN,DIRECT 0.8 MG/DL (0.0-0.3)
[2017-08-22 05:30] LABS: PHOSPHORUS 2.7 MG/DL (2.5-4.9)
[2017-08-22] MEDS: NovoLOG Insulin Flexpen SUBQ SCH ×4 (06:25→21:09)
--- NOTE | 2017-08-22 07:26 | Pulmonolgy Critical Care Note ---
Critical Care - Asmt/Plan Problems: (1) Acute respiratory failure with hypoxia and hypercapnia (2) Acute renal failure (ARF) (3) Non-STEMI (non-ST elevated myocardial infarction) (4) Septic shock (5) Acute toxic metabolic encephalopathy (6) DM2 (diabetes mellitus, type 2) (7) Lactic acid acidosis Respiratory: monitor respiratory rate, adjust FIO2, CXR, other - not ready to wean yet Cardiac: continue pressors, continue to monitor HR/BP Renal: F/U I&O, keep IV fluid, other - HD today Infectious Disease: continue antibiotics, other - no new cultures available Gastrointestinal: hold feedings - until pt is off levophed Hematologic: monitor H/H Neurologic: PRN Ativan, PRN Morphine Prophylaxis: Protonix, Heparin - drip for NSTEMI Disposition: keep in ICU Notes Reviewed: category specialist, 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 with: nurses, consultants Critical Care - Objective Last 24 Hour Vital Signs Date Time Temp Pulse Resp B/P (MAP) Pulse Ox O2 Delivery O2 Flow Rate FiO2 08/22/17 06:00 77 23 100/50 99 Mechanical Ventilator 70 08/22/17 05:24 87 26 70 08/22/17 05:00 97 22 96/44 99 Mechanical Ventilator 70 08/22/17 04:00 70 08/22/17 04:00 100.0 88 24 110/47 98 Mechanical Ventilator 70 94/48 08/22/17 04:00 88 08/22/17 04:00 104/45 08/22/17 03:30 77 26 113/46 99 Mechanical Ventilator 70 94/48 08/22/17 03:28 77 26 70 08/22/17 03:00 79 26 112/45 99 Mechanical Ventilator 70 94/49 08/22/17 03:00 112/45 08/22/17 02:30 78 26 108/50 99 Mechanical Ventilator 70 94/49 08/22/17 02:00 79 26 105/42 98 Mechanical Ventilator 70 95/51 08/22/17 02:00 108/40 08/22/17 01:30 79 26 113/50 98 Mechanical Ventilator 70 95/50 08/22/17 01:24 81 26 70 08/22/17 01:00 113/50 08/22/17 01:00 78 26 113/50 98 Mechanical Ventilator 70 94/49 08/22/17 00:30 79 26 126/58 98 Mechanical Ventilator 70 107/66 08/22/17 00:00 76 26 121/53 98 Mechanical Ventilator 70 107/54 08/22/17 00:00 121/53 08/22/17 00:00 70 08/21/17 23:30 99.3 77 26 123/51 99 Mechanical Ventilator 70 103/52 08/21/17 23:14 79 26 70 08/21/17 23:00 81 26 116/48 99 Mechanical Ventilator 70 100/52 08/21/17 23:00 116/48 08/21/17 22:30 80 26 106/47 99 Mechanical Ventilator 70 98/51 08/21/17 22:00 115/51 08/21/17 22:00 85 22 113/51 99 Mechanical Ventilator 70 84/58 08/21/17 21:30 82 14 99/47 99 Mechanical Ventilator 70 97/50 08/21/17 21:12 80 26 70 08/21/17 21:00 80 14 89/39 99 Mechanical Ventilator 70 98/51 08/21/17 21:00 98/51 08/21/17 20:30 79 26 112/40 98 Mechanical Ventilator 70 105/55 08/21/17 20:00 70 08/21/17 20:00 110/39 08/21/17 20:00 78 08/21/17 20:00 78 26 110/39 99 Mechanical Ventilator 70 105/55 08/21/17 19:30 98.8 78 26 106/45 99 Mechanical Ventilator 70 103/54 08/21/17 19:00 80 26 99 Mechanical Ventilator 70 106/55 08/21/17 19:00 107/40 08/21/17 19:00 89 26 70 08/21/17 18:45 80 26 99 Mechanical Ventilator 70 109/41 08/21/17 18:30 78 26 98 Mechanical Ventilator 70 119/42 08/21/17 18:15 83 26 98 Mechanical Ventilator 70 110/41 08/21/17 18:00 111/57 08/21/17 18:00 82 26 98 Mechanical Ventilator 70 90/57 08/21/17 17:45 76 26 98 Mechanical Ventilator 70 111/57 08/21/17 17:30 77 26 98 Mechanical Ventilator 70 110/57 08/21/17 17:15 77 26 98 Mechanical Ventilator 70 108/57 08/21/17 17:00 78 26 98 Mechanical Ventilator 70 111/57 08/21/17 17:00 111/57 18 16:57 82 26 70 08/21/17 16:45 75 26 98 Mechanical Ventilator 70 110/58 08/21/17 16:30 75 26 98 Mechanical Ventilator 70 110/57 18 16:15 76 26 98 Mechanical Ventilator 70 109/56 08/21/17 16:00 98.6 76 26 98 Mechanical Ventilator 70 110/58 08/21/17 16:00 70 08/21/17 16:00 110/58 08/21/17 16:00 77 08/21/17 15:45 78 26 98 Mechanical Ventilator 70 107/57 08/21/17 15:30 65 26 98 Mechanical Ventilator 70 121/60 08/21/17 15:15 77 26 98 Mechanical Ventilator 70 115/42 08/21/17 15:03 82 26 Mechanical Ventilator 70 08/21/17 15:01 70 08/21/17 15:00 78 26 98 Mechanical Ventilator 70 105/48 08/21/17 15:00 119/48 08/21/17 14:48 86 26 99 Mechanical Ventilator 70 08/21/17 14:37 86 26 70 08/21/17 14:30 81 26 98 Mechanical Ventilator 70 113/64 08/21/17 14:15 80 26 98 Mechanical Ventilator 70 116/54 08/21/17 14:00 78 26 98 Mechanical Ventilator 70 123/34 08/21/17 14:00 97/40 08/21/17 13:45 78 26 98 Mechanical Ventilator 70 110/38 08/21/17 13:30 83 26 98 Mechanical Ventilator 70 103/37 08/21/17 13:10 86 26 70 08/21/17 13:00 100/45 08/21/17 13:00 79 26 99 Mechanical Ventilator 70 100/45 08/21/17 12:30 82 26 99 Mechanical Ventilator 70 106/35 08/21/17 12:15 82 26 99 Mechanical Ventilator 70 102/35 08/21/17 12:00 70 08/21/17 12:00 84 08/21/17 12:00 98.9 86 26 99 Mechanical Ventilator 70 92/60 08/21/17 11:45 82 26 99 Mechanical Ventilator 70 105/37 08/21/17 11:30 82 26 99 Mechanical Ventilator 70 112/61 08/21/17 11:15 85 26 99 Mechanical Ventilator 70 112/59 08/21/17 11:00 89 26 99 Mechanical Ventilator 70 109/58 08/21/17 11:00 109/59 08/21/17 10:45 97 26 99 Mechanical Ventilator 70 101/42 08/21/17 10:37 89 26 70 08/21/17 10:30 80 26 99 Mechanical Ventilator 70 109/60 08/21/17 10:25 113/63 08/21/17 10:15 78 26 99 Mechanical Ventilator 70 119/61 08/21/17 10:00 78 26 96 Mechanical Ventilator 70 128/63 08/21/17 10:00 128/63 08/21/17 09:45 78 26 96 Mechanical Ventilator 70 122/43 08/21/17 09:30 78 26 96 Mechanical Ventilator 70 126/63 08/21/17 09:15 78 26 96 Mechanical Ventilator 70 126/63 08/21/17 09:00 117 26 96 Mechanical Ventilator 70 113/63 08/21/17 09:00 113/63 08/21/17 08:58 117 26 70 08/21/17 08:45 101 26 96 Mechanical Ventilator 70 129/41 08/21/17 08:41 151 08/21/17 08:30 100.0 103 26 132/44 96 Mechanical Ventilator 70 08/21/17 08:15 103 26 132/44 96 Mechanical Ventilator 70 08/21/17 08:09 100.0 08/21/17 08:00 101 26 125/47 96 Mechanical Ventilator 70 08/21/17 08:00 125/47 08/21/17 08:00 70 08/21/17 07:45 110 26 125/47 97 Mechanical Ventilator 70 08/21/17 07:42 112 08/21/17 07:30 100.3 118 26 111/58 97 Mechanical Ventilator 70 Status: sedated Condition: critical HEENT: atraumatic Neck: full ROM Lungs: clear Heart: regular Abdomen: feeding tube Extremities: edema Decubiti: location Micro: Microbiology Date/Time Source Procedure Growth Status 08/19/17 07:55 Blood Blood Culture - Preliminary NO GROWTH AFTER 48 HOURS Resulted 08/19/17 07:50 Blood Blood Culture - Preliminary NO GROWTH AFTER 48 HOURS Resulted 08/19/17 08:45 Nasal Nares Left MRSA Culture - Final Staphylococcus Aureus - Mrsa Complete 08/19/17 08:45 Nasal Nares Influenza Types A,B Antigen (ZECHARIAH) - Final Complete 08/19/17 08:45 Rectum VRE Culture - Final NO VANCOMYCIN RESISTANT ENTEROCOCCUS ... Complete Accucheck: 188 Critical Care - Subjective ROS Limited/Unobtainable: Yes ICU Day: 3 Intubation Day: 3 Condition: critical EKG Rhythm: Sinus Rhythm FI02: 70 Vent Support Breath Rate: 26 Vent Support Mode: AC Vent Tidal Volume: 700 Sputum Amount: Small PEEP: 5.0 PIP: 57 Fluids: ns 100 cc/hour I&O: Intake and Output 08/21/17 08/22/17 19:00 07:00 Intake Total 1511.020 ml 1497.310 ml Output Total 450 ml 400 ml Balance 1061.020 ml 1097.310 ml Intake Oral 0 ml 0 ml IV Total 1511.020 ml 1497.310 ml Output Urine Total 450 ml 400 ml CXR: ET in good position ET-Tube: 8.0 ET Position: 24 Labs: Laboratory Tests Test 08/21/17 11:35 08/21/17 18:00 08/22/17 03:00 Lactic Acid Level 2.50 mmol/L (0.66-2.22) H 2.60 mmol/L (0.66-2.22) H Troponin I 13.077 ng/mL (0.000-0.056) 9.435 ng/mL (0.000-0.056) Activated Partial Thromboplast Time 34 SEC (23-33) H 59 SEC (23-33) H White Blood Count 15.8 K/UL (4.8-10.8) H Red Blood Count 3.71 M/UL (4.20-5.40) L Hemoglobin 8.7 G/DL (12.0-16.0) L Hematocrit 29.2 % (37.0-47.0) L Mean Corpuscular Volume 79 FL (80-99) L Mean Corpuscular Hemoglobin 23.4 PG (27.0-31.0) L Mean Corpuscular Hemoglobin Concent 29.7 G/DL (32.0-36.0) L Red Cell Distribution Width 17.5 % (11.6-14.8) H Platelet Count 103 K/UL (150-450) L Mean Platelet Volume 7.3 FL (6.5-10.1) Neutrophils (%) (Auto) % (45.0-75.0) Lymphocytes (%) (Auto) % (20.0-45.0) Monocytes (%) (Auto) % (1.0-10.0) Eosinophils (%) (Auto) % (0.0-3.0) Basophils (%) (Auto) % (0.0-2.0) Neutrophils % (Manual) Pending Lymphocytes % (Manual) Pending Platelet Estimate Pending Platelet Morphology Pending Sodium Level 137 MMOL/L (136-145) Potassium Level 3.7 MMOL/L (3.5-5.1) Chloride Level 98 MMOL/L (98-107) Carbon Dioxide Level 29 MMOL/L (21-32) Anion Gap 10 mmol/L (5-15) Blood Urea Nitrogen 47 mg/dL (7-18) H Creatinine 4.7 MG/DL (0.55-1.30) H Estimat Glomerular Filtration Rate 11.5 mL/min (>60) Glucose Level 178 MG/DL (74-106) H Calcium Level 7.8 MG/DL (8.5-10.1) L Phosphorus Level 2.7 MG/DL (2.5-4.9) Magnesium Level 1.6 MG/DL (1.8-2.4) L Total Bilirubin 1.7 MG/DL (0.2-1.0) H Direct Bilirubin 0.8 MG/DL (0.0-0.3) H Aspartate Amino Transf (AST/SGOT) 1060 U/L (15-37) H Alanine Aminotransferase (ALT/SGPT) 2460 U/L (12-78) H Alkaline Phosphatase 81 U/L (46-116) Total Protein 6.3 G/DL (6.4-8.2) L Albumin 2.0 G/DL (3.4-5.0) L Globulin 4.3 g/dL Albumin/Globulin Ratio 0.5 (1.0-2.7) L Random Vancomycin Level 13.6 ug/mL DOMONIQUE DOBBS Aug 22, 2017 07:26
[2017-08-22] MEDS: Albuterol/Ipratropium 3ml neb HHN PRN ×2 (08:02→14:37)
[2017-08-22] MEDS ORDERED: Vancomycin 1.5 GM/D5W 250ML IVPB ONE ×2 (09:00→14:00)
--- NOTE | 2017-08-22 09:10 | Nephrology Progress Note ---
Assessment/Plan Problem List: (1) Acute renal failure (ARF) (2) Acute respiratory acidosis (3) Lactic acid acidosis (4) Septic shock (5) Acute respiratory failure with hypoxia and hypercapnia (6) Elevated troponin I level Assessment acute renal failure Hyperkalemia sepsis, high Lactic , acidosis low BP resp failure obese rapid rise in Troponin- now on way down Plan dialysed 08/19 redialys and again 08/22 Arterial line per cardiology and ID and pulm discussed with ID Subjective ROS Limited/Unobtainable: Yes Objective Objective Last 24 Hour Vital Signs Date Time Temp Pulse Resp B/P (MAP) Pulse Ox O2 Delivery O2 Flow Rate FiO2 08/22/17 09:06 77 26 70 08/22/17 08:08 70 08/22/17 08:05 78 26 98 Mechanical Ventilator 70 08/22/17 08:00 70 08/22/17 06:40 89 26 70 08/22/17 06:00 77 23 100/50 99 Mechanical Ventilator 70 08/22/17 05:24 87 26 70 08/22/17 05:00 97 22 96/44 99 Mechanical Ventilator 70 08/22/17 04:00 70 08/22/17 04:00 100.0 88 24 110/47 98 Mechanical Ventilator 70 94/48 08/22/17 04:00 88 08/22/17 04:00 104/45 08/22/17 03:30 77 26 113/46 99 Mechanical Ventilator 70 94/48 08/22/17 03:28 77 26 70 08/22/17 03:00 79 26 112/45 99 Mechanical Ventilator 70 94/49 08/22/17 03:00 112/45 08/22/17 02:30 78 26 108/50 99 Mechanical Ventilator 70 94/49 08/22/17 02:00 79 26 105/42 98 Mechanical Ventilator 70 95/51 08/22/17 02:00 108/40 08/22/17 01:30 79 26 113/50 98 Mechanical Ventilator 70 95/50 08/22/17 01:24 81 26 70 08/22/17 01:00 113/50 08/22/17 01:00 78 26 113/50 98 Mechanical Ventilator 70 94/49 08/22/17 00:30 79 26 126/58 98 Mechanical Ventilator 70 107/66 08/22/17 00:00 76 26 121/53 98 Mechanical Ventilator 70 107/54 08/22/17 00:00 121/53 08/22/17 00:00 70 08/21/17 23:30 99.3 77 26 123/51 99 Mechanical Ventilator 70 103/52 08/21/17 23:14 79 26 70 08/21/17 23:00 81 26 116/48 99 Mechanical Ventilator 70 100/52 08/21/17 23:00 116/48 08/21/17 22:30 80 26 106/47 99 Mechanical Ventilator 70 98/51 08/21/17 22:00 115/51 08/21/17 22:00 85 22 113/51 99 Mechanical Ventilator 70 84/58 08/21/17 21:30 82 14 99/47 99 Mechanical Ventilator 70 97/50 08/21/17 21:12 80 26 70 08/21/17 21:00 80 14 89/39 99 Mechanical Ventilator 70 98/51 08/21/17 21:00 98/51 08/21/17 20:30 79 26 112/40 98 Mechanical Ventilator 70 105/55 08/21/17 20:00 70 08/21/17 20:00 110/39 08/21/17 20:00 78 08/21/17 20:00 78 26 110/39 99 Mechanical Ventilator 70 105/55 08/21/17 19:30 98.8 78 26 106/45 99 Mechanical Ventilator 70 103/54 08/21/17 19:00 80 26 99 Mechanical Ventilator 70 106/55 08/21/17 19:00 107/40 08/21/17 19:00 89 26 70 08/21/17 18:45 80 26 99 Mechanical Ventilator 70 109/41 08/21/17 18:30 78 26 98 Mechanical Ventilator 70 119/42 08/21/17 18:15 83 26 98 Mechanical Ventilator 70 110/41 08/21/17 18:00 111/57 08/21/17 18:00 82 26 98 Mechanical Ventilator 70 90/57 08/21/17 17:45 76 26 98 Mechanical Ventilator 70 111/57 08/21/17 17:30 77 26 98 Mechanical Ventilator 70 110/57 08/21/17 17:15 77 26 98 Mechanical Ventilator 70 108/57 08/21/17 17:00 78 26 98 Mechanical Ventilator 70 111/57 08/21/17 17:00 111/57 08/21/17 16:57 82 26 70 08/21/17 16:45 75 26 98 Mechanical Ventilator 70 110/58 08/21/17 16:30 75 26 98 Mechanical Ventilator 70 110/57 08/21/17 16:15 76 26 98 Mechanical Ventilator 70 109/56 08/21/17 16:00 98.6 76 26 98 Mechanical Ventilator 70 110/58 08/21/17 16:00 70 08/21/17 16:00 110/58 08/21/17 16:00 77 08/21/17 15:45 78 26 98 Mechanical Ventilator 70 107/57 08/21/17 15:30 65 26 98 Mechanical Ventilator 70 121/60 08/21/17 15:15 77 26 98 Mechanical Ventilator 70 115/42 08/21/17 15:03 82 26 Mechanical Ventilator 70 08/21/17 15:01 70 08/21/17 15:00 78 26 98 Mechanical Ventilator 70 105/48 08/21/17 15:00 119/48 08/21/17 14:48 86 26 99 Mechanical Ventilator 70 08/21/17 14:37 86 26 70 08/21/17 14:30 81 26 98 Mechanical Ventilator 70 113/64 08/21/17 14:15 80 26 98 Mechanical Ventilator 70 116/54 08/21/17 14:00 78 26 98 Mechanical Ventilator 70 123/34 08/21/17 14:00 97/40 08/21/17 13:45 78 26 98 Mechanical Ventilator 70 110/38 08/21/17 13:30 83 26 98 Mechanical Ventilator 70 103/37 08/21/17 13:10 86 26 70 08/21/17 13:00 100/45 08/21/17 13:00 79 26 99 Mechanical Ventilator 70 100/45 08/21/17 12:30 82 26 99 Mechanical Ventilator 70 106/35 08/21/17 12:15 82 26 99 Mechanical Ventilator 70 102/35 08/21/17 12:00 70 08/21/17 12:00 84 08/21/17 12:00 98.9 86 26 99 Mechanical Ventilator 70 92/60 08/21/17 11:45 82 26 99 Mechanical Ventilator 70 105/37 08/21/17 11:30 82 26 99 Mechanical Ventilator 70 112/61 08/21/17 11:15 85 26 99 Mechanical Ventilator 70 112/59 08/21/17 11:00 89 26 99 Mechanical Ventilator 70 109/58 1/12/18 11:00 109/59 08/21/17 10:45 97 26 99 Mechanical Ventilator 70 101/42 08/21/17 10:37 89 26 70 08/21/17 10:30 80 26 99 Mechanical Ventilator 70 109/60 08/21/17 10:25 113/63 08/21/17 10:15 78 26 99 Mechanical Ventilator 70 119/61 08/21/17 10:00 78 26 96 Mechanical Ventilator 70 128/63 08/21/17 10:00 128/63 08/21/17 09:45 78 26 96 Mechanical Ventilator 70 122/43 08/21/17 09:30 78 26 96 Mechanical Ventilator 70 126/63 08/21/17 09:15 78 26 96 Mechanical Ventilator 70 126/63 Intake and Output 08/21/17 08/22/17 19:00 07:00 Intake Total 1511.020 ml 1497.310 ml Output Total 450 ml 400 ml Balance 1061.020 ml 1097.310 ml Intake Oral 0 ml 0 ml IV Total 1511.020 ml 1497.310 ml Output Urine Total 450 ml 400 ml Laboratory Tests 08/21/17 11:35: Lactic Acid Level 2.50H, Troponin I 13.077H 08/21/17 18:00: Lactic Acid Level 2.60H, Troponin I 9.435H, Activated Partial Thromboplast Time 34H 08/22/17 03:00: Activated Partial Thromboplast Time 59H, White Blood Count 15.8H, Red Blood Count 3.71L, Hemoglobin 8.7L, Hematocrit 29.2L, Mean Corpuscular Volume 79L, Mean Corpuscular Hemoglobin 23.4L, Mean Corpuscular Hemoglobin Concent 29.7L, Red Cell Distribution Width 17.5H, Platelet Count 103L, Mean Platelet Volume 7.3 , Neutrophils (%) (Auto) , Lymphocytes (%) (Auto) , Monocytes (%) (Auto) , Eosinophils (%) (Auto) , Basophils (%) (Auto) , Differential Total Cells Counted 100, Neutrophils % (Manual) 74, Lymphocytes % (Manual) 14L, Monocytes % (Manual) 3, Eosinophils % (Manual) 0, Basophils % (Manual) 0, Band Neutrophils 9H, Platelet Estimate DecreasedL, Platelet Morphology Normal, Hypochromasia 1+, Anisocytosis 1+, Microcytosis 1+, Sodium Level 137, Potassium Level 3.7, Chloride Level 98, Carbon Dioxide Level 29, Anion Gap 10, Blood Urea Nitrogen 47H, Creatinine 4.7H, Estimat Glomerular Filtration Rate 11.5, Glucose Level 178H, Calcium Level 7.8L, Phosphorus Level 2.7, Magnesium Level 1.6L, Total Bilirubin 1.7H, Direct Bilirubin 0.8H, Aspartate Amino Transf (AST/SGOT) 1060H, Alanine Aminotransferase (ALT/SGPT) 2460H, Alkaline Phosphatase 81, Total Protein 6.3L, Albumin 2.0L, Globulin 4.3, Albumin/Globulin Ratio 0.5L, Random Vancomycin Level 13.6 08/22/17 08:45: Arterial Blood pH 7.511H, Arterial Blood Partial Pressure CO2 39.2, Arterial Blood Partial Pressure O2 231.8H, Arterial Blood HCO3 30.6H, Arterial Blood Oxygen Saturation 99.4H, Arterial Blood Base Excess 7.1, Doroteo Test Positive Height (Feet): 5 Height (Inches): 3.00 Weight (Pounds): 488 General Appearance: no apparent distress EENT: other - intubated Cardiovascular: normal rate Respiratory/Chest: decreased breath sounds Abdomen: soft AGUSTIN CONTRERAS Aug 22, 2017 09:10
[2017-08-22] MEDS: Aspirin Baby 81mg ORAL SCH (09:12)
[2017-08-22] MEDS: Pantoprazole Inj IV SCH (09:12)
[2017-08-22] MEDS: Acetaminophen 650mg/20.3ml NG PRN (09:12)
[2017-08-22] MEDS: Magnesium Oxide 400mg tab ORAL SCH ×2 (09:13→18:35)
--- NOTE | 2017-08-22 11:45 | Diagnostic Imaging Report ---
Indication: Dyspnea Technique: XRAY Chest 1v Comparison: 08/21/2017 Findings: Endotracheal tube and nontunneled dialysis catheter unchanged in position. NG tube courses below level of diaphragms, tip beyond the inferior margin of the film. Heart is enlarged but stable. Interstitial opacities and confluent bilateral airspace opacities compatible with a severe alveolar filling process such as pulmonary edema, multifocal pneumonia and/or ARDS. There is continued slight improved aeration of the right midlung compared to the prior exam. No pneumothorax. Impression: Since the bilateral interstitial and airspace opacities. Continued slight improved aeration in the right mid/lower lung.
--- NOTE | 2017-08-22 12:16 | Internal Med Progress Note ---
Subjective Physician Name AlfredMaryjane Attending Physician Brittany Edmond Current Medications Medications (Trade) Dose Ordered Sig/Felipe Route PRN Reason Start Time Stop Time Status Last Admin Dose Admin Acetaminophen (Tylenol) 650 mg Q6HR PRN NG Mild Pain/Temp > 100.1 08/20/17 13:00 09/19/17 12:59 08/22/17 09:12 Albuterol/ Ipratropium (Albuterol/ Ipratropium) 3 ml Q4H PRN HHN Shortness of Breath 08/19/17 10:30 08/24/17 10:29 08/22/17 08:02 Aspirin (ASA) 81 mg DAILY ORAL 08/20/17 09:00 09/19/17 08:59 08/22/17 09:12 Chlorhexidine Gluconate (Vicki-Hex 2%) 1 applic DAILY@2000 TOPIC 08/20/17 20:00 09/19/17 19:59 08/21/17 20:34 Dextrose (Dextrose 50%) STAT PRN IV Hypoglycemia 08/19/17 12:00 09/18/17 11:59 Epoetin Dario (Procrit (for ESRD on dialysis)) 10,000 units MON-WED-FRI SUBQ 08/21/17 21:00 09/20/17 20:59 08/21/17 21:08 Heparin Sodium/ Dextrose 500 ml @ 48.299 mls/ hr Q24H IV 08/22/17 03:45 09/21/17 03:44 08/22/17 03:57 Insulin Aspart (NovoLOG) BEFORE MEALS AND HS SUBQ 08/19/17 12:30 09/18/17 12:29 08/22/17 11:45 Lorazepam (Ativan 2mg/ml 1ml) 2 mg Q4H PRN IV For Anxiety 08/19/17 12:00 08/26/17 11:59 Magnesium Oxide (Mag-Ox 400mg) 400 mg BID ORAL 08/22/17 09:00 09/21/17 08:59 08/22/17 09:13 Meropenem 500 mg/ Sodium Chloride 55 ml @ 110 mls/hr Q24H IVPB 08/19/17 16:00 08/24/17 15:59 08/21/17 17:01 Morphine Sulfate (Morphine Sulfate) 2 mg Q4H PRN IVP Moderate Pain (Pain Scale 4-6) 08/19/17 10:30 08/26/17 10:29 Morphine Sulfate (Morphine Sulfate) 4 mg Q4H PRN IVP For Pain Scale 7-10 08/19/17 12:00 08/26/17 11:59 Nitroglycerin (Ntg) 0.4 mg Q5MIN X 3 DOSES PRN SL Prn Chest Pain 08/19/17 12:00 09/18/17 11:59 Norepinephrine Bitartrate 4 mg/ Dextrose 250 ml @ 0 mls/hr Q24H IV 08/19/17 14:00 09/18/17 13:59 08/21/17 10:25 Ondansetron HCl (Zofran) 4 mg Q6H PRN IVP Nausea & Vomiting 08/19/17 12:00 09/18/17 11:59 Pantoprazole (Protonix) 40 mg DAILY IV 08/20/17 09:00 09/19/17 08:59 08/22/17 09:12 Polyethylene Glycol (Miralax) 17 gm DAILYPRN PRN ORAL Constipation 08/19/17 10:30 09/18/17 10:29 Sodium Chloride 1,000 ml @ 100 mls/hr Q10H IVLG 08/20/17 12:00 09/19/17 11:59 08/22/17 01:56 Temazepam (Restoril) 15 mg HSPRN PRN ORAL Insomnia 08/19/17 12:00 08/26/17 11:59 Vancomycin HCl (Vanco rx to dose) 1 ea DAILYPRN PRN MISC RX TO DOSE PROTOCL 08/19/17 13:00 09/18/17 12:59 Vancomycin HCl/ Dextrose 250 ml @ 125 mls/hr ONCE ONCE IVPB 08/22/17 14:00 08/22/17 15:59 Allergies: Coded Allergies: No Known Allergies (Unverified , 06/01/17) Objective Last Vital Signs Date Time Temp Pulse Resp B/P (MAP) Pulse Ox O2 Delivery O2 Flow Rate FiO2 08/22/17 12:00 40 08/22/17 12:00 78 08/22/17 11:00 17 94/47 96 Mechanical Ventilator 08/22/17 09:42 100.4 08/19/17 13:14 15.0 Laboratory Tests Test 08/21/17 18:00 08/22/17 03:00 08/22/17 08:45 08/22/17 09:45 Activated Partial Thromboplast Time 34 SEC (23-33) H 59 SEC (23-33) H 84 SEC (23-33) H Lactic Acid Level 2.60 mmol/L (0.66-2.22) H Troponin I 9.435 ng/mL (0.000-0.056) White Blood Count 15.8 K/UL (4.8-10.8) H Red Blood Count 3.71 M/UL (4.20-5.40) L Hemoglobin 8.7 G/DL (12.0-16.0) L Hematocrit 29.2 % (37.0-47.0) L Mean Corpuscular Volume 79 FL (80-99) L Mean Corpuscular Hemoglobin 23.4 PG (27.0-31.0) L Mean Corpuscular Hemoglobin Concent 29.7 G/DL (32.0-36.0) L Red Cell Distribution Width 17.5 % (11.6-14.8) H Platelet Count 103 K/UL (150-450) L Mean Platelet Volume 7.3 FL (6.5-10.1) Neutrophils (%) (Auto) % (45.0-75.0) Lymphocytes (%) (Auto) % (20.0-45.0) Monocytes (%) (Auto) % (1.0-10.0) Eosinophils (%) (Auto) % (0.0-3.0) Basophils (%) (Auto) % (0.0-2.0) Differential Total Cells Counted 100 Neutrophils % (Manual) 74 % (45-75) Lymphocytes % (Manual) 14 % (20-45) L Monocytes % (Manual) 3 % (1-10) Eosinophils % (Manual) 0 % (0-3) Basophils % (Manual) 0 % (0-2) Band Neutrophils 9 % (0-8) H Platelet Estimate Decreased L Platelet Morphology Normal Hypochromasia 1+ Anisocytosis 1+ Microcytosis 1+ Sodium Level 137 MMOL/L (136-145) Potassium Level 3.7 MMOL/L (3.5-5.1) Chloride Level 98 MMOL/L (98-107) Carbon Dioxide Level 29 MMOL/L (21-32) Anion Gap 10 mmol/L (5-15) Blood Urea Nitrogen 47 mg/dL (7-18) H Creatinine 4.7 MG/DL (0.55-1.30) H Estimat Glomerular Filtration Rate 11.5 mL/min (>60) Glucose Level 178 MG/DL (74-106) H Calcium Level 7.8 MG/DL (8.5-10.1) L Phosphorus Level 2.7 MG/DL (2.5-4.9) Magnesium Level 1.6 MG/DL (1.8-2.4) L Total Bilirubin 1.7 MG/DL (0.2-1.0) H Direct Bilirubin 0.8 MG/DL (0.0-0.3) H Aspartate Amino Transf (AST/SGOT) 1060 U/L (15-37) H Alanine Aminotransferase (ALT/SGPT) 2460 U/L (12-78) H Alkaline Phosphatase 81 U/L (46-116) Total Protein 6.3 G/DL (6.4-8.2) L Albumin 2.0 G/DL (3.4-5.0) L Globulin 4.3 g/dL Albumin/Globulin Ratio 0.5 (1.0-2.7) L Random Vancomycin Level 13.6 ug/mL Arterial Blood pH 7.511 (7.350-7.450) Arterial Blood Partial Pressure CO2 39.2 mmHg (35.0-45.0) Arterial Blood Partial Pressure O2 231.8 mmHg (75.0-100.0) H Arterial Blood HCO3 30.6 mmol/L (22.0-26.0) H Arterial Blood Oxygen Saturation 99.4 % (92.0-98.0) H Arterial Blood Base Excess 7.1 Doroteo Test Positive Intake and Output 08/21/17 08/22/17 19:00 07:00 Intake Total 1511.020 ml 1497.310 ml Output Total 450 ml 400 ml Balance 1061.020 ml 1097.310 ml Intake Oral 0 ml 0 ml IV Total 1511.020 ml 1497.310 ml Output Urine Total 450 ml 400 ml Assessment/Plan Assessment/Plan Assessment/Plan Assessment/Plan Problem List: (1) SVT (supraventricular tachycardia) ICD Codes: I47.1 - Supraventricular tachycardia SNOMED: 0514502 (2) Acute respiratory failure with hypoxia and hypercapnia ICD Codes: J96.01 - Acute respiratory failure with hypoxia; J96.02 - Acute respiratory failure with hypercapnia SNOMED: 29704831, 04727250, 227937212 (3) Septic shock ICD Codes: A41.9 - Sepsis, unspecified organism; R65.21 - Severe sepsis with septic shock SNOMED: 02080702 (4) KASHIF (acute kidney injury) ICD Codes: N17.9 - Acute kidney failure, unspecified SNOMED: 43596376 (5) Lactic acid acidosis ICD Codes: E87.2 - Acidosis SNOMED: 50719370 (6) Hyperkalemia ICD Codes: E87.5 - Hyperkalemia; J96.02 - Acute respiratory failure with hypercapnia SNOMED: 07979303, 56564493, 829402243 (7) Acute toxic metabolic encephalopathy (8) Shock liver ICD Codes: K72.00 - Acute and subacute hepatic failure without coma SNOMED: 716374401 (9) Non-STEMI (non-ST elevated myocardial infarction) ICD Codes: I21.4 - Non-ST elevation (NSTEMI) myocardial infarction; J96.02 - Acute respiratory failure with hypercapnia SNOMED: 062319720, 73967018, 185287782 (10) DM2 (diabetes mellitus, type 2) ICD Codes: E11.9 - Type 2 diabetes mellitus without complications SNOMED: 64991809 (11) Asthma ICD Codes: J45.909 - Unspecified asthma, uncomplicated SNOMED: 273546102 (12) GERD (gastroesophageal reflux disease) ICD Codes: K21.9 - Gastro-esophageal reflux disease without esophagitis SNOMED: 066354430 Status: unchanged Assessment/Plan Cont ICU care Pulmonology, Nephrology, GI, ID, Cardiology consulted Empiric vanco and meropenem per ID (08/19-) F/u cultures Cont on vent and wean as tolerated Daily SBTs, sedation holiday Cont pressors to maintain MAP 65 and above Arterial line placed 08/20/17 Trend lactate--downtrending Trend trop/EKG--cont to uptrend ASA, statin Check ECHO--EF 70% Cont HD per renal (started on HD 08/19) Trend BMP closely s/p mucomyst IV for shock liver/hepatitis per GI Trend LFTs--downtrending Hold tube feeds for now PPI Pain control, supportive care, bowel regimen Attempt to contact family for GOC discussion DVT Prophylaxis: HSQ Code Status: Full Hospital Classification Declaration: Based on this initial evaluation, and depending on the patient's clinical course, I anticipate that this patient will require hospitalization for 4-5 days for acute respiratory failure, septic shock and close respiratory/hemodynamic monitoring. At the time of my involvement, the patient's condition was critical with high potential for and/or physiologic deterioration secondary to acute respiratory failure, septic shock, shock liver, KASHIF as delineated in the note above. On the above date of service, I spent a total of 39minutes in the ICU evaluating , managing, and providing critical care services to this patient, including time spent documenting these activities, counseling patient/family, and coordinating care. Critical care services performed include: Telemetry Review Hemodynamic measurement interpretation Laboratory data review and interpretation Ventilator setting review, management, and adjustment Discussion of care plans with patient, family, and/or surrogate decision makers Discussion of patient's care with primary medical team, surgical team, and/or consulting service Decision to obtain further radiologic evaluation, after consideration of risk/ benefit ratio Decision to perform invasive procedure, after consideration of risk/benefit ratio Review of most recent microbiology results with assessment and modification of antimicrobial coverage Discussion of patient's code status and further advancement towards the ultimate goals of care Plan outlined above discussed with patient/family, [employer]SC[employer]IST, ICU team, and involved physicians/consultants. D/w ID re abx. D/w pulm re pressors, vent settings Time of note may not reflect time of encounter. Subjective Subjective Date patient seen: Aug 21, 2017 Time patient seen: 18:11 ROS Limited/Unobtainable: Yes Allergies: Coded Allergies: No Known Allergies (Unverified , 06/01/17) Subjective No acute o/n events Cont on HD per renal, K improved Arterial line placed yesterday for more precise BP measures Cont on pressors WBC remains elevated at 16K Lactate downtrending Pt intubated, sedated Unable to obtain ROS as pt sedated Objective Objective Last 24 Hour Vital Signs Date Time Temp Pulse Resp B/P (MAP) Pulse Ox O2 Delivery O2 Flow Rate FiO2 08/21/17 17:00 78 26 98 Mechanical Ventilator 70 111/57 08/21/17 16:57 82 26 70 08/21/17 16:45 75 26 98 Mechanical Ventilator 70 110/58 08/21/17 16:30 75 26 98 Mechanical Ventilator 70 110/57 08/21/17 16:15 76 26 98 Mechanical Ventilator 70 109/56 08/21/17 16:00 98.6 76 26 98 Mechanical Ventilator 70 110/58 08/21/17 16:00 70 08/21/17 16:00 77 08/21/17 15:45 78 26 98 Mechanical Ventilator 70 107/57 08/21/17 15:30 65 26 98 Mechanical Ventilator 70 121/60 08/21/17 15:15 77 26 98 Mechanical Ventilator 70 115/42 08/21/17 15:03 82 26 Mechanical Ventilator 70 08/21/17 15:01 70 08/21/17 15:00 78 26 98 Mechanical Ventilator 70 105/48 08/21/17 15:00 119/48 08/21/17 14:48 86 26 99 Mechanical Ventilator 70 08/21/17 14:37 86 26 70 08/21/17 14:30 81 26 98 Mechanical Ventilator 70 113/64 08/21/17 14:15 80 26 98 Mechanical Ventilator 70 116/54 08/21/17 14:00 78 26 98 Mechanical Ventilator 70 123/34 08/21/17 14:00 97/40 08/21/17 13:45 78 26 98 Mechanical Ventilator 70 110/38 08/21/17 13:30 83 26 98 Mechanical Ventilator 70 103/37 08/21/17 13:10 86 26 70 08/21/17 13:00 100/45 08/21/17 13:00 79 26 99 Mechanical Ventilator 70 100/45 08/21/17 12:30 82 26 99 Mechanical Ventilator 70 106/35 08/21/17 12:15 82 26 99 Mechanical Ventilator 70 102/35 08/21/17 12:00 70 08/21/17 12:00 84 08/21/17 12:00 98.9 86 26 99 Mechanical Ventilator 70 92/60 08/21/17 11:45 82 26 99 Mechanical Ventilator 70 105/37 08/21/17 11:30 82 26 99 Mechanical Ventilator 70 112/61 08/21/17 11:15 85 26 99 Mechanical Ventilator 70 112/59 08/21/17 11:00 89 26 99 Mechanical Ventilator 70 109/58 08/21/17 11:00 109/59 08/21/17 10:45 97 26 99 Mechanical Ventilator 70 101/42 08/21/17 10:37 89 26 70 08/21/17 10:30 80 26 99 Mechanical Ventilator 70 109/60 08/21/17 10:25 113/63 08/21/17 10:15 78 26 99 Mechanical Ventilator 70 119/61 08/21/17 10:00 78 26 96 Mechanical Ventilator 70 128/63 08/21/17 10:00 128/63 08/21/17 09:45 78 26 96 Mechanical Ventilator 70 122/43 08/21/17 09:30 78 26 96 Mechanical Ventilator 70 126/63 08/21/17 09:15 78 26 96 Mechanical Ventilator 70 126/63 08/21/17 09:00 117 26 96 Mechanical Ventilator 70 113/63 08/21/17 09:00 113/63 08/21/17 08:58 117 26 70 08/21/17 08:45 101 26 96 Mechanical Ventilator 70 129/41 08/21/17 08:41 151 08/21/17 08:30 100.0 103 26 132/44 96 Mechanical Ventilator 70 08/21/17 08:15 103 26 132/44 96 Mechanical Ventilator 70 08/21/17 08:09 100.0 08/21/17 08:00 101 26 125/47 96 Mechanical Ventilator 70 08/21/17 08:00 125/47 08/21/17 08:00 70 08/21/17 07:45 110 26 125/47 97 Mechanical Ventilator 70 08/21/17 07:42 112 08/21/17 07:30 100.3 118 26 111/58 97 Mechanical Ventilator 70 08/21/17 07:15 118 26 108/57 97 Mechanical Ventilator 70 08/21/17 07:14 100 26 70 08/21/17 07:00 131 26 130/56 97 Mechanical Ventilator 70 08/21/17 06:30 113 26 123/66 97 Mechanical Ventilator 70 08/21/17 06:00 118 26 112/51 98 Mechanical Ventilator 70 08/21/17 06:00 123/66 08/21/17 05:39 88/47 08/21/17 05:30 148 26 88/47 97 Mechanical Ventilator 70 08/21/17 05:06 108 26 70 08/21/17 05:00 124/63 08/21/17 05:00 111 26 124/63 97 Mechanical Ventilator 70 08/21/17 04:30 124 26 123/67 97 Mechanical Ventilator 70 08/21/17 04:00 70 08/21/17 04:00 110 08/21/17 04:00 98.8 110 26 124/43 96 Mechanical Ventilator 70 08/21/17 04:00 124/43 08/21/17 03:30 144 26 117/54 98 Mechanical Ventilator 70 08/21/17 03:05 115 26 70 08/21/17 03:00 108 26 136/57 98 Mechanical Ventilator 70 08/21/17 03:00 136/57 08/21/17 02:30 100 26 91/33 98 Mechanical Ventilator 70 141/67 08/21/17 02:07 86/47 08/21/17 02:00 86/47 08/21/17 02:00 142 26 86/47 96 Mechanical Ventilator 70 08/21/17 01:30 142 26 62/34 95 Mechanical Ventilator 70 66/45 08/21/17 01:07 141 26 70 08/21/17 01:00 140 26 94/62 97 Mechanical Ventilator 70 93/45 08/21/17 00:30 134 20 93/59 96 Mechanical Ventilator 70 80/47 08/21/17 00:00 105/52 08/21/17 00:00 99.3 140 26 105/52 97 Mechanical Ventilator 70 08/21/17 00:00 140 08/21/17 00:00 70 08/20/17 23:30 140 26 97/52 97 Mechanical Ventilator 70 08/20/17 23:03 140 26 70 08/20/17 23:00 140 26 94/53 97 Mechanical Ventilator 70 08/20/17 23:00 94/43 08/20/17 22:30 139 26 86/54 97 Mechanical Ventilator 70 102/51 08/20/17 22:00 93/43 08/20/17 22:00 139 23 93/43 96 Mechanical Ventilator 70 08/20/17 21:30 143 26 89/58 95 Mechanical Ventilator 70 08/20/17 21:17 146 26 70 08/20/17 21:00 107/53 08/20/17 21:00 84 26 107/53 97 Mechanical Ventilator 70 08/20/17 20:30 84 26 101/52 98 Mechanical Ventilator 70 08/20/17 20:00 83 26 100/51 97 Mechanical Ventilator 70 08/20/17 20:00 83 1/11/18 20:00 70 08/20/17 20:00 100/51 08/20/17 19:30 99.7 82 26 100/54 97 Mechanical Ventilator 70 08/20/17 19:27 111/86 08/20/17 19:12 87 26 70 08/20/17 19:00 86 20 110/57 97 Mechanical Ventilator 70 08/20/17 19:00 110/57 08/20/17 18:45 86 26 113/57 100 Mechanical Ventilator 70 08/20/17 18:30 86 26 111/86 100 Mechanical Ventilator 70 Intake and Output 08/20/17 08/21/17 19:00 07:00 Intake Total 2410.00 ml 1688.75 ml Output Total 40 ml 125 ml Balance 2370.00 ml 1563.75 ml Intake Oral 0 ml 0 ml IV Total 2410.00 ml 1688.75 ml Output Urine Total 40 ml 125 ml Hemodialysis UF 0 ml Laboratory Tests 08/21/17 04:30: White Blood Count 16.2H, Red Blood Count 4.16L, Hemoglobin 9.8L, Hematocrit 32.6L, Mean Corpuscular Volume 79L, Mean Corpuscular Hemoglobin 23.6L, Mean Corpuscular Hemoglobin Concent 30.0L, Red Cell Distribution Width 17.4H, Platelet Count 119L, Mean Platelet Volume 9.1, Neutrophils (%) (Auto) , Lymphocytes (%) (Auto) , Monocytes (%) (Auto) , Eosinophils (%) (Auto) , Basophils (%) (Auto) , Differential Total Cells Counted 100, Neutrophils % ( Manual) 87H, Lymphocytes % (Manual) 9L, Monocytes % (Manual) 2, Eosinophils % ( Manual) 0, Basophils % (Manual) 0, Band Neutrophils 2, Nucleated Red Blood Cells 3, Platelet Estimate DecreasedL, Platelet Morphology Normal, Hypochromasia 2+, Anisocytosis 1+, Microcytosis 1+, Prothrombin Time 20.2H, Prothromb Time International Ratio 1.9H, Activated Partial Thromboplast Time 32 , Sodium Level 137, Potassium Level 3.5, Chloride Level 95L, Carbon Dioxide Level 30, Anion Gap 12, Blood Urea Nitrogen 37H, Creatinine 4.0H, Estimat Glomerular Filtration Rate 13.8, Glucose Level 184H, Lactic Acid Level 2.90H, Uric Acid 7.4H, Calcium Level 7.6L, Phosphorus Level 2.5, Magnesium Level 1.5L, Total Bilirubin 1.9H, Direct Bilirubin 1.1H, Aspartate Amino Transf (AST/SGOT) 2499H, Alanine Aminotransferase (ALT/SGPT) 3863H, Alkaline Phosphatase 86, Total Creatine Kinase 780H, Troponin I 16.427H, C-Reactive Protein, Quantitative 27.5H, Pro-B-Type Natriuretic Peptide 52538X, Total Protein 6.5, Albumin 2.3L, Globulin 4.2, Albumin/Globulin Ratio 0.5L, Digoxin Level 1.4, Hepatitis A IgM Antibody [Pending], Hepatitis B Surface Antigen [Pending], Hepatitis B Core IgM Antibody [Pending], Hepatitis C Antibody [Pending] 08/21/17 11:35: Lactic Acid Level 2.50H, Troponin I 13.077H Height (Feet): 5 Height (Inches): 3.00 Weight (Pounds): 484 Objective General: intubated, sedated, morbid obesity Head: normocephalic, without obvious abnormality, atraumatic Eyes: conjunctivae/corneas clear. PERRL, EOM's intact Throat: lips, mucosa, and tongue normal. MMM Neck: supple, symmetrical, trachea midline, and no JVD Lungs: clear to auscultation bilaterally Heart: regular rate and rhythm, S1, S2 normal, no murmur, click, rub or gallop Abdomen: soft, non-tender, non-distended, bowel sounds normal Extremities: extremities normal, atraumatic, no cyanosis or edema Pulses: 2+ and symmetric Skin: skin color, texture, turgor normal; no rashes or lesions Neurologic: sedated Maryjane Simon M.D. Aug 22, 2017 12:15
--- NOTE | 2017-08-22 14:47 | General Progress Note ---
Assessment/Plan Assessment/Plan Assessment/Plan Problems: (1) Shock liver ICD Codes: K72.00 - Acute and subacute hepatic failure without coma SNOMED: 993846837 (2) Anemia ICD Codes: D64.9 - Anemia, unspecified SNOMED: 047190367 (3) Morbid obesity ICD Codes: E66.01 - Morbid (severe) obesity due to excess calories SNOMED: 265689907, 29435941609547 (4) Multiple organ failure SNOMED: 70994021 (5) Transaminitis ICD Codes: R74.0 - Nonspecific elevation of levels of transaminase and lactic acid dehydrogenase [LDH] SNOMED: 542563794, 279151062 (6) Septic shock ICD Codes: A41.9 - Sepsis, unspecified organism; R65.21 - Severe sepsis with septic shock SNOMED: 28084220 (7) DM2 (diabetes mellitus, type 2) ICD Codes: E11.9 - Type 2 diabetes mellitus without complications SNOMED: 72914993 (8) GERD (gastroesophageal reflux disease) ICD Codes: K21.9 - Gastro-esophageal reflux disease without esophagitis SNOMED: 683331999 Assessment/Plan defer GI procedures at this time Begin NGT feeds transaminitis due to shock liver >> trend anemia work up OB stool r/o GI bleed monitor H&H, prn transfusions ppi abx fu labs Subjective Allergies: Coded Allergies: No Known Allergies (Unverified , 06/01/17) Subjective Patient seen during HD intubated, responsive c/o mild abd pain off feeds Objective Last 24 Hour Vital Signs Date Time Temp Pulse Resp B/P (MAP) Pulse Ox O2 Delivery O2 Flow Rate FiO2 08/22/17 14:38 76 20 40 08/22/17 14:37 76 20 94 Mechanical Ventilator 40 08/22/17 14:00 74 14 105/49 94 Mechanical Ventilator 40 08/22/17 13:41 100/51 08/22/17 13:30 Mechanical Ventilator 40 08/22/17 13:30 99.0 76 20 100/51 Mechanical Ventilator 40 08/22/17 13:00 74 14 108/48 94 Mechanical Ventilator 40 08/22/17 12:53 73 20 40 08/22/17 12:00 99.4 94 14 105/47 98 Mechanical Ventilator 40 08/22/17 12:00 40 08/22/17 12:00 78 08/22/17 11:00 78 17 94/47 96 Mechanical Ventilator 40 08/22/17 10:54 77 20 40 08/22/17 10:00 79 14 95/47 96 Mechanical Ventilator 40 08/22/17 09:42 100.4 08/22/17 09:06 77 26 40 08/22/17 09:00 100.3 85 20 107/46 Mechanical Ventilator 40 08/22/17 09:00 Mechanical Ventilator 40 08/22/17 09:00 77 14 100/48 95 Mechanical Ventilator 70 08/22/17 08:08 70 08/22/17 08:05 78 26 98 Mechanical Ventilator 70 08/22/17 08:00 70 08/22/17 08:00 79 08/22/17 08:00 100.3 78 17 104/51 98 Mechanical Ventilator 70 08/22/17 07:00 74 22 103/46 98 Mechanical Ventilator 70 08/22/17 06:40 89 26 70 08/22/17 06:00 77 23 100/50 99 Mechanical Ventilator 70 08/22/17 05:24 87 26 70 08/22/17 05:00 97 22 96/44 99 Mechanical Ventilator 70 08/22/17 04:00 70 08/22/17 04:00 100.0 88 24 110/47 98 Mechanical Ventilator 70 94/48 08/22/17 04:00 88 08/22/17 04:00 104/45 08/22/17 03:30 77 26 113/46 99 Mechanical Ventilator 70 94/48 08/22/17 03:28 77 26 70 08/22/17 03:00 79 26 112/45 99 Mechanical Ventilator 70 94/49 08/22/17 03:00 112/45 08/22/17 02:30 78 26 108/50 99 Mechanical Ventilator 70 94/49 08/22/17 02:00 79 26 105/42 98 Mechanical Ventilator 70 95/51 08/22/17 02:00 108/40 08/22/17 01:30 79 26 113/50 98 Mechanical Ventilator 70 95/50 08/22/17 01:24 81 26 70 08/22/17 01:00 113/50 08/22/17 01:00 78 26 113/50 98 Mechanical Ventilator 70 94/49 08/22/17 00:30 79 26 126/58 98 Mechanical Ventilator 70 107/66 08/22/17 00:00 76 26 121/53 98 Mechanical Ventilator 70 107/54 08/22/17 00:00 121/53 08/22/17 00:00 70 08/21/17 23:30 99.3 77 26 123/51 99 Mechanical Ventilator 70 103/52 08/21/17 23:14 79 26 70 08/21/17 23:00 81 26 116/48 99 Mechanical Ventilator 70 100/52 08/21/17 23:00 116/48 08/21/17 22:30 80 26 106/47 99 Mechanical Ventilator 70 98/51 08/21/17 22:00 115/51 08/21/17 22:00 85 22 113/51 99 Mechanical Ventilator 70 84/58 08/21/17 21:30 82 14 99/47 99 Mechanical Ventilator 70 97/50 08/21/17 21:12 80 26 70 08/21/17 21:00 80 14 89/39 99 Mechanical Ventilator 70 98/51 08/21/17 21:00 98/51 08/21/17 20:30 79 26 112/40 98 Mechanical Ventilator 70 105/55 08/21/17 20:00 70 08/21/17 20:00 110/39 08/21/17 20:00 78 08/21/17 20:00 78 26 110/39 99 Mechanical Ventilator 70 105/55 08/21/17 19:30 98.8 78 26 106/45 99 Mechanical Ventilator 70 103/54 08/21/17 19:00 80 26 99 Mechanical Ventilator 70 106/55 08/21/17 19:00 107/40 08/21/17 19:00 89 26 70 08/21/17 18:45 80 26 99 Mechanical Ventilator 70 109/41 08/21/17 18:30 78 26 98 Mechanical Ventilator 70 119/42 08/21/17 18:15 83 26 98 Mechanical Ventilator 70 110/41 08/21/17 18:00 111/57 08/21/17 18:00 82 26 98 Mechanical Ventilator 70 90/57 08/21/17 17:45 76 26 98 Mechanical Ventilator 70 111/57 08/21/17 17:30 77 26 98 Mechanical Ventilator 70 110/57 08/21/17 17:15 77 26 98 Mechanical Ventilator 70 108/57 08/21/17 17:00 78 26 98 Mechanical Ventilator 70 111/57 08/21/17 17:00 111/57 08/21/17 16:57 82 26 70 08/21/17 16:45 75 26 98 Mechanical Ventilator 70 110/58 08/21/17 16:30 75 26 98 Mechanical Ventilator 70 110/57 08/21/17 16:15 76 26 98 Mechanical Ventilator 70 109/56 08/21/17 16:00 98.6 76 26 98 Mechanical Ventilator 70 110/58 08/21/17 16:00 70 08/21/17 16:00 110/58 08/21/17 16:00 77 08/21/17 15:45 78 26 98 Mechanical Ventilator 70 107/57 08/21/17 15:30 65 26 98 Mechanical Ventilator 70 121/60 08/21/17 15:15 77 26 98 Mechanical Ventilator 70 115/42 08/21/17 15:03 82 26 Mechanical Ventilator 70 08/21/17 15:01 70 08/21/17 15:00 78 26 98 Mechanical Ventilator 70 105/48 08/21/17 15:00 119/48 08/21/17 14:48 86 26 99 Mechanical Ventilator 70 Intake and Output 08/21/17 08/22/17 19:00 07:00 Intake Total 1511.020 ml 1497.310 ml Output Total 450 ml 400 ml Balance 1061.020 ml 1097.310 ml Intake Oral 0 ml 0 ml IV Total 1511.020 ml 1497.310 ml Output Urine Total 450 ml 400 ml Laboratory Tests 08/21/17 18:00: Activated Partial Thromboplast Time 34H, Lactic Acid Level 2.60H, Troponin I 9.435H 08/22/17 03:00: Activated Partial Thromboplast Time 59H, White Blood Count 15.8H, Red Blood Count 3.71L, Hemoglobin 8.7L, Hematocrit 29.2L, Mean Corpuscular Volume 79L, Mean Corpuscular Hemoglobin 23.4L, Mean Corpuscular Hemoglobin Concent 29.7L, Red Cell Distribution Width 17.5H, Platelet Count 103L, Mean Platelet Volume 7.3 , Neutrophils (%) (Auto) , Lymphocytes (%) (Auto) , Monocytes (%) (Auto) , Eosinophils (%) (Auto) , Basophils (%) (Auto) , Differential Total Cells Counted 100, Neutrophils % (Manual) 74, Lymphocytes % (Manual) 14L, Monocytes % (Manual) 3, Eosinophils % (Manual) 0, Basophils % (Manual) 0, Band Neutrophils 9H, Platelet Estimate DecreasedL, Platelet Morphology Normal, Hypochromasia 1+, Anisocytosis 1+, Microcytosis 1+, Sodium Level 137, Potassium Level 3.7, Chloride Level 98, Carbon Dioxide Level 29, Anion Gap 10, Blood Urea Nitrogen 47H, Creatinine 4.7H, Estimat Glomerular Filtration Rate 11.5, Glucose Level 178H, Calcium Level 7.8L, Phosphorus Level 2.7, Magnesium Level 1.6L, Total Bilirubin 1.7H, Direct Bilirubin 0.8H, Aspartate Amino Transf (AST/SGOT) 1060H, Alanine Aminotransferase (ALT/SGPT) 2460H, Alkaline Phosphatase 81, Total Protein 6.3L, Albumin 2.0L, Globulin 4.3, Albumin/Globulin Ratio 0.5L, Random Vancomycin Level 13.6 08/22/17 08:45: Arterial Blood pH 7.511H, Arterial Blood Partial Pressure CO2 39.2, Arterial Blood Partial Pressure O2 231.8H, Arterial Blood HCO3 30.6H, Arterial Blood Oxygen Saturation 99.4H, Arterial Blood Base Excess 7.1, Doroteo Test Positive 08/22/17 09:45: Activated Partial Thromboplast Time 84H Height (Feet): 5 Height (Inches): 3.00 Weight (Pounds): 488 Objective Obese AA woman NCAT supple CTA RRR soft, mild lower abd central abd TTP trace edema YAA CALVO Aug 22, 2017 14:47
--- NOTE | 2017-08-22 15:39 | Cardiology Report ---
APPROVED REPORT EKG Measurement Heart [id number] VT 168P44 [id number] Normal sinus rhythm T wave abnormality, consider inferior ischemia T wave abnormality, consider anterolateral ischemia Prolonged QT Abnormal ECG
[2017-08-22] MEDS: Meropenem 500 MG in NS 55 ML IVPB SCH (16:00)
--- NOTE | 2017-08-22 16:46 | Infectious Diseases Prog Note ---
Assessment/Plan Assessment/Plan ASSESSMENT AND PLAN: 1. sepsis, shock, ? cap, ? HCAP/aspiration pna, fevers, leukocytosis, influenza negative - clinically better, less pressors, less fio2, weaning - vancomycin and meropenem, and azithromycin - check sc, serology, labs and chest x-ray - icu care 2. Acute kidney injury, on hemodialysis. 3. Elevated liver enzymes, likely shock liver. Check hepatitis panel. 4. Anemia. 5. Hypertension. 6. Diabetes. 7. Gastroesophageal reflux disease. 8. Morbid obesity. 9. Shortness of breath. 10. Hypoxia. 11. Respiratory failure. 12. On ventilator. 13. Intensive care unit care. 14. BiPAP, hypercapnia. 15. Asthma. 16. Blood sugar and blood pressure treatment for diabetes and hypertension per primary. 17. Mok-PM-umtosjlli myocardial infarction history. 18. Hyperkalemia. 19. Allergies negative. 20. Social history negative. 21. Family history noncontributory. 22. mar noted. 23. Case discussed with RN, intensive care unit care. 24. No known drug allergies. 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 Subjective Constitutional: Reports: fever, fatigue, other - on vent, very alert and responsive HEENT: Reports: congestion - on vent Respiratory: Reports: shortness of breath - on vent Cardiovascular: Denies: chest pain Gastrointestinal/Abdominal: Denies: nausea, vomiting Genitourinary: Reports: other - + vargas Neurologic: Denies: headache Psychiatric: Denies: depression Skin: Denies: rash Hematologic: Denies: bleeding Musculoskeletal: Denies: pain Allergies: Coded Allergies: No Known Allergies (Unverified , 06/01/17) Objective Vital Signs Last 24 Hour Vital Signs Date Time Temp Pulse Resp B/P (MAP) Pulse Ox O2 Delivery O2 Flow Rate FiO2 08/22/17 16:00 40 08/22/17 16:00 75 11 105/44 93 Mechanical Ventilator 40 08/22/17 15:01 84 20 Mechanical Ventilator 40 08/22/17 15:00 77 8 98/48 93 Mechanical Ventilator 40 08/22/17 15:00 40 08/22/17 14:38 76 20 40 08/22/17 14:37 76 20 94 Mechanical Ventilator 40 08/22/17 14:00 74 14 105/49 94 Mechanical Ventilator 40 08/22/17 13:41 100/51 08/22/17 13:30 Mechanical Ventilator 40 08/22/17 13:30 99.0 76 20 100/51 Mechanical Ventilator 40 08/22/17 13:00 74 14 108/48 94 Mechanical Ventilator 40 08/22/17 12:53 73 20 40 08/22/17 12:00 99.4 94 14 105/47 98 Mechanical Ventilator 40 08/22/17 12:00 40 08/22/17 12:00 78 08/22/17 11:00 78 17 94/47 96 Mechanical Ventilator 40 08/22/17 10:54 77 20 40 08/22/17 10:00 79 14 95/47 96 Mechanical Ventilator 40 08/22/17 09:42 100.4 08/22/17 09:06 77 26 40 08/22/17 09:00 100.3 85 20 107/46 Mechanical Ventilator 40 08/22/17 09:00 Mechanical Ventilator 40 08/22/17 09:00 77 14 100/48 95 Mechanical Ventilator 70 08/22/17 08:08 70 08/22/17 08:05 78 26 98 Mechanical Ventilator 70 08/22/17 08:00 70 08/22/17 08:00 79 08/22/17 08:00 100.3 78 17 104/51 98 Mechanical Ventilator 70 08/22/17 07:00 74 22 103/46 98 Mechanical Ventilator 70 08/22/17 06:40 89 26 70 08/22/17 06:00 77 23 100/50 99 Mechanical Ventilator 70 08/22/17 05:24 87 26 70 08/22/17 05:00 97 22 96/44 99 Mechanical Ventilator 70 08/22/17 04:00 70 08/22/17 04:00 100.0 88 24 110/47 98 Mechanical Ventilator 70 94/48 08/22/17 04:00 88 08/22/17 04:00 104/45 08/22/17 03:30 77 26 113/46 99 Mechanical Ventilator 70 94/48 08/22/17 03:28 77 26 70 08/22/17 03:00 79 26 112/45 99 Mechanical Ventilator 70 94/49 08/22/17 03:00 112/45 08/22/17 02:30 78 26 108/50 99 Mechanical Ventilator 70 94/49 08/22/17 02:00 79 26 105/42 98 Mechanical Ventilator 70 95/51 08/22/17 02:00 108/40 08/22/17 01:30 79 26 113/50 98 Mechanical Ventilator 70 95/50 08/22/17 01:24 81 26 70 08/22/17 01:00 113/50 08/22/17 01:00 78 26 113/50 98 Mechanical Ventilator 70 94/49 08/22/17 00:30 79 26 126/58 98 Mechanical Ventilator 70 107/66 08/22/17 00:00 76 26 121/53 98 Mechanical Ventilator 70 107/54 08/22/17 00:00 121/53 08/22/17 00:00 70 08/21/17 23:30 99.3 77 26 123/51 99 Mechanical Ventilator 70 103/52 08/21/17 23:14 79 26 70 08/21/17 23:00 81 26 116/48 99 Mechanical Ventilator 70 100/52 08/21/17 23:00 116/48 08/21/17 22:30 80 26 106/47 99 Mechanical Ventilator 70 98/51 08/21/17 22:00 115/51 08/21/17 22:00 85 22 113/51 99 Mechanical Ventilator 70 84/58 08/21/17 21:30 82 14 99/47 99 Mechanical Ventilator 70 97/50 08/21/17 21:12 80 26 70 08/21/17 21:00 80 14 89/39 99 Mechanical Ventilator 70 98/51 08/21/17 21:00 98/51 08/21/17 20:30 79 26 112/40 98 Mechanical Ventilator 70 105/55 08/21/17 20:00 70 08/21/17 20:00 110/39 08/21/17 20:00 78 08/21/17 20:00 78 26 110/39 99 Mechanical Ventilator 70 105/55 08/21/17 19:30 98.8 78 26 106/45 99 Mechanical Ventilator 70 103/54 08/21/17 19:00 80 26 99 Mechanical Ventilator 70 106/55 08/21/17 19:00 107/40 08/21/17 19:00 89 26 70 08/21/17 18:45 80 26 99 Mechanical Ventilator 70 109/41 08/21/17 18:30 78 26 98 Mechanical Ventilator 70 119/42 08/21/17 18:15 83 26 98 Mechanical Ventilator 70 110/41 08/21/17 18:00 111/57 08/21/17 18:00 82 26 98 Mechanical Ventilator 70 90/57 08/21/17 17:45 76 26 98 Mechanical Ventilator 70 111/57 08/21/17 17:30 77 26 98 Mechanical Ventilator 70 110/57 08/21/17 17:15 77 26 98 Mechanical Ventilator 70 108/57 08/21/17 17:00 78 26 98 Mechanical Ventilator 70 111/57 08/21/17 17:00 111/57 08/21/17 16:57 82 26 70 08/21/17 16:45 75 26 98 Mechanical Ventilator 70 110/58 Height (Feet): 5 Height (Inches): 3.00 Weight (Pounds): 488 General Appearance: no acute distress HEENT: normocephalic, atraumatic, anicteric, mucous membranes moist, EOMI, no JVD, other - oral - intubated Respiratory/Chest: crackles/rales, rhonchi - bilaterally Cardiovascular: normal rate, regular rhythm, no gallop/murmur, no JVD Abdomen: normal bowel sounds, soft, non tender, no organomegaly, non distended Genitourinary: other - + vargas - urine clear Extremities: no cyanosis Skin: no rash Neurologic/Psychiatric: 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 Continued slight improved aeration in the right mid/lower lung. Microbiology Date/Time Source Procedure Growth Status 08/19/17 07:55 Blood Blood Culture - Preliminary NO GROWTH AFTER 48 HOURS Resulted 08/19/17 08:45 Nasal Nares Left MRSA Culture - Final Staphylococcus Aureus - Mrsa Complete 08/19/17 08:45 Rectum VRE Culture - Final NO VANCOMYCIN RESISTANT ENTEROCOCCUS ... Complete Laboratory Tests Test 08/21/17 18:00 08/22/17 03:00 08/22/17 08:45 08/22/17 09:45 Activated Partial Thromboplast Time 34 SEC (23-33) H 59 SEC (23-33) H 84 SEC (23-33) H Lactic Acid Level 2.60 mmol/L (0.66-2.22) H Troponin I 9.435 ng/mL (0.000-0.056) White Blood Count 15.8 K/UL (4.8-10.8) H Red Blood Count 3.71 M/UL (4.20-5.40) L Hemoglobin 8.7 G/DL (12.0-16.0) L Hematocrit 29.2 % (37.0-47.0) L Mean Corpuscular Volume 79 FL (80-99) L Mean Corpuscular Hemoglobin 23.4 PG (27.0-31.0) L Mean Corpuscular Hemoglobin Concent 29.7 G/DL (32.0-36.0) L Red Cell Distribution Width 17.5 % (11.6-14.8) H Platelet Count 103 K/UL (150-450) L Mean Platelet Volume 7.3 FL (6.5-10.1) Neutrophils (%) (Auto) % (45.0-75.0) Lymphocytes (%) (Auto) % (20.0-45.0) Monocytes (%) (Auto) % (1.0-10.0) Eosinophils (%) (Auto) % (0.0-3.0) Basophils (%) (Auto) % (0.0-2.0) Differential Total Cells Counted 100 Neutrophils % (Manual) 74 % (45-75) Lymphocytes % (Manual) 14 % (20-45) L Monocytes % (Manual) 3 % (1-10) Eosinophils % (Manual) 0 % (0-3) Basophils % (Manual) 0 % (0-2) Band Neutrophils 9 % (0-8) H Platelet Estimate Decreased L Platelet Morphology Normal Hypochromasia 1+ Anisocytosis 1+ Microcytosis 1+ Sodium Level 137 MMOL/L (136-145) Potassium Level 3.7 MMOL/L (3.5-5.1) Chloride Level 98 MMOL/L (98-107) Carbon Dioxide Level 29 MMOL/L (21-32) Anion Gap 10 mmol/L (5-15) Blood Urea Nitrogen 47 mg/dL (7-18) H Creatinine 4.7 MG/DL (0.55-1.30) H Estimat Glomerular Filtration Rate 11.5 mL/min (>60) Glucose Level 178 MG/DL (74-106) H Calcium Level 7.8 MG/DL (8.5-10.1) L Phosphorus Level 2.7 MG/DL (2.5-4.9) Magnesium Level 1.6 MG/DL (1.8-2.4) L Total Bilirubin 1.7 MG/DL (0.2-1.0) H Direct Bilirubin 0.8 MG/DL (0.0-0.3) H Aspartate Amino Transf (AST/SGOT) 1060 U/L (15-37) H Alanine Aminotransferase (ALT/SGPT) 2460 U/L (12-78) H Alkaline Phosphatase 81 U/L (46-116) Total Protein 6.3 G/DL (6.4-8.2) L Albumin 2.0 G/DL (3.4-5.0) L Globulin 4.3 g/dL Albumin/Globulin Ratio 0.5 (1.0-2.7) L Random Vancomycin Level 13.6 ug/mL Arterial Blood pH 7.511 (7.350-7.450) Arterial Blood Partial Pressure CO2 39.2 mmHg (35.0-45.0) Arterial Blood Partial Pressure O2 231.8 mmHg (75.0-100.0) H Arterial Blood HCO3 30.6 mmol/L (22.0-26.0) H Arterial Blood Oxygen Saturation 99.4 % (92.0-98.0) H Arterial Blood Base Excess 7.1 Doroteo Test Positive Current Medications Medications (Trade) Dose Ordered Sig/Felipe Route PRN Reason Start Time Stop Time Status Last Admin Dose Admin Acetaminophen (Tylenol) 650 mg Q6HR PRN NG Mild Pain/Temp > 100.1 08/20/17 13:00 09/19/17 12:59 08/22/17 09:12 Albuterol/ Ipratropium (Albuterol/ Ipratropium) 3 ml Q4H PRN HHN Shortness of Breath 08/19/17 10:30 08/24/17 10:29 08/22/17 14:37 Aspirin (ASA) 81 mg DAILY ORAL 08/20/17 09:00 09/19/17 08:59 08/22/17 09:12 Chlorhexidine Gluconate (Vicki-Hex 2%) 1 applic DAILY@2000 TOPIC 08/20/17 20:00 09/19/17 19:59 08/21/17 20:34 Dextrose (Dextrose 50%) STAT PRN IV Hypoglycemia 08/19/17 12:00 09/18/17 11:59 Epoetin Dario (Procrit (for ESRD on dialysis)) 10,000 units MON-WED-THU SUBQ 08/21/17 21:00 09/20/17 20:59 08/21/17 21:08 Heparin Sodium/ Dextrose 500 ml @ 48.299 mls/ hr Q24H IV 08/22/17 03:45 09/21/17 03:44 08/22/17 03:57 Insulin Aspart (NovoLOG) BEFORE MEALS AND HS SUBQ 08/19/17 12:30 09/18/17 12:29 08/22/17 11:45 Lorazepam (Ativan 2mg/ml 1ml) 2 mg Q4H PRN IV For Anxiety 08/19/17 12:00 08/26/17 11:59 Magnesium Oxide (Mag-Ox 400mg) 400 mg BID ORAL 08/22/17 09:00 09/21/17 08:59 08/22/17 09:13 Meropenem 500 mg/ Sodium Chloride 55 ml @ 110 mls/hr Q24H IVPB 08/19/17 16:00 08/24/17 15:59 08/21/17 17:01 Morphine Sulfate (Morphine Sulfate) 2 mg Q4H PRN IVP Moderate Pain (Pain Scale 4-6) 08/19/17 10:30 08/26/17 10:29 Morphine Sulfate (Morphine Sulfate) 4 mg Q4H PRN IVP For Pain Scale 7-10 08/19/17 12:00 08/26/17 11:59 Nitroglycerin (Ntg) 0.4 mg Q5MIN X 3 DOSES PRN SL Prn Chest Pain 08/19/17 12:00 09/18/17 11:59 Norepinephrine Bitartrate 4 mg/ Dextrose 250 ml @ 0 mls/hr Q24H IV 08/19/17 14:00 09/18/17 13:59 08/21/17 10:25 Ondansetron HCl (Zofran) 4 mg Q6H PRN IVP Nausea & Vomiting 08/19/17 12:00 09/18/17 11:59 Pantoprazole (Protonix) 40 mg DAILY IV 08/20/17 09:00 09/19/17 08:59 08/22/17 09:12 Polyethylene Glycol (Miralax) 17 gm DAILYPRN PRN ORAL Constipation 08/19/17 10:30 09/18/17 10:29 Sodium Chloride 1,000 ml @ 100 mls/hr Q10H IVLG 08/20/17 12:00 09/19/17 11:59 08/22/17 14:20 Temazepam (Restoril) 15 mg HSPRN PRN ORAL Insomnia 08/19/17 12:00 08/26/17 11:59 Vancomycin HCl (Vanco rx to dose) 1 ea DAILYPRN PRN MISC RX TO DOSE PROTOCL 08/19/17 13:00 09/18/17 12:59 JUNI ABDUL Aug 22, 2017 16:46
--- NOTE | 2017-08-22 17:18 | Cardiac Electrophysiology PN ---
Assessment/Plan Assessment/Plan 1. Non-ST elevation myocardial infarction. Trop peak 16.4. Now down to 9. Echocardiogram EF 75%. No chest pain On Aspirin and heparin drip. Can't use Beta destiney as just came off the pressors. Change heparin drip to SQ heparin.Add Lipitor 20 qhs 2. Recurrent SVT at rate 200 bpm. Did not terminated with 6 or 12 of adenosine but converted with the second dose of digoxin. Can't use BB or CA blockers for hypotension. Dig level 1.4 3. Respiratory failure, on the ventilator. 4. Junctional rhythm. Keep the patient off any beta-destiney or calcium-channel destiney. 5. S/P Septic shock. The patient is on broad-spectrum intravenous antibiotic and off pressors today. 6. Morbid obesity 484 Lbs. 7. Severe hyperkalemia, potassium was 7.8 and went down to 5 after HD DW RN Subjective Subjective No further SVT . In ICU on vent. Off Levohed 5 mcg. Alert and able to write on a paper. RN at bedside.. Objective Last 24 Hour Vital Signs Date Time Temp Pulse Resp B/P (MAP) Pulse Ox O2 Delivery O2 Flow Rate FiO2 08/22/17 17:00 99.1 77 17 105/47 94 Mechanical Ventilator 40 08/22/17 16:00 40 08/22/17 16:00 75 11 105/44 93 Mechanical Ventilator 40 08/22/17 15:01 84 20 Mechanical Ventilator 40 08/22/17 15:00 77 8 98/48 93 Mechanical Ventilator 40 08/22/17 15:00 40 08/22/17 14:38 76 20 40 08/22/17 14:37 76 20 94 Mechanical Ventilator 40 08/22/17 14:00 74 14 105/49 94 Mechanical Ventilator 40 08/22/17 13:41 100/51 08/22/17 13:30 Mechanical Ventilator 40 08/22/17 13:30 99.0 76 20 100/51 Mechanical Ventilator 40 08/22/17 13:00 74 14 108/48 94 Mechanical Ventilator 40 08/22/17 12:53 73 20 40 08/22/17 12:00 99.4 94 14 105/47 98 Mechanical Ventilator 40 08/22/17 12:00 40 08/22/17 12:00 78 08/22/17 11:00 78 17 94/47 96 Mechanical Ventilator 40 08/22/17 10:54 77 20 40 08/22/17 10:00 79 14 95/47 96 Mechanical Ventilator 40 08/22/17 09:42 100.4 08/22/17 09:06 77 26 40 08/22/17 09:00 100.3 85 20 107/46 Mechanical Ventilator 40 08/22/17 09:00 Mechanical Ventilator 40 08/22/17 09:00 77 14 100/48 95 Mechanical Ventilator 70 08/22/17 08:08 70 08/22/17 08:05 78 26 98 Mechanical Ventilator 70 08/22/17 08:00 70 08/22/17 08:00 79 08/22/17 08:00 100.3 78 17 104/51 98 Mechanical Ventilator 70 08/22/17 07:00 74 22 103/46 98 Mechanical Ventilator 70 08/22/17 06:40 89 26 70 08/22/17 06:00 77 23 100/50 99 Mechanical Ventilator 70 08/22/17 05:24 87 26 70 08/22/17 05:00 97 22 96/44 99 Mechanical Ventilator 70 08/22/17 04:00 70 08/22/17 04:00 100.0 88 24 110/47 98 Mechanical Ventilator 70 94/48 08/22/17 04:00 88 08/22/17 04:00 104/45 08/22/17 03:30 77 26 113/46 99 Mechanical Ventilator 70 94/48 08/22/17 03:28 77 26 70 08/22/17 03:00 79 26 112/45 99 Mechanical Ventilator 70 94/49 08/22/17 03:00 112/45 08/22/17 02:30 78 26 108/50 99 Mechanical Ventilator 70 94/49 08/22/17 02:00 79 26 105/42 98 Mechanical Ventilator 70 95/51 08/22/17 02:00 108/40 08/22/17 01:30 79 26 113/50 98 Mechanical Ventilator 70 95/50 08/22/17 01:24 81 26 70 08/22/17 01:00 113/50 08/22/17 01:00 78 26 113/50 98 Mechanical Ventilator 70 94/49 08/22/17 00:30 79 26 126/58 98 Mechanical Ventilator 70 107/66 08/22/17 00:00 76 26 121/53 98 Mechanical Ventilator 70 107/54 08/22/17 00:00 121/53 08/22/17 00:00 70 08/21/17 23:30 99.3 77 26 123/51 99 Mechanical Ventilator 70 103/52 08/21/17 23:14 79 26 70 08/21/17 23:00 81 26 116/48 99 Mechanical Ventilator 70 100/52 08/21/17 23:00 116/48 08/21/17 22:30 80 26 106/47 99 Mechanical Ventilator 70 98/51 08/21/17 22:00 115/51 08/21/17 22:00 85 22 113/51 99 Mechanical Ventilator 70 84/58 08/21/17 21:30 82 14 99/47 99 Mechanical Ventilator 70 97/50 08/21/17 21:12 80 26 70 08/21/17 21:00 80 14 89/39 99 Mechanical Ventilator 70 98/51 08/21/17 21:00 98/51 08/21/17 20:30 79 26 112/40 98 Mechanical Ventilator 70 105/55 08/21/17 20:00 70 08/21/17 20:00 110/39 08/21/17 20:00 78 08/21/17 20:00 78 26 110/39 99 Mechanical Ventilator 70 105/55 08/21/17 19:30 98.8 78 26 106/45 99 Mechanical Ventilator 70 103/54 08/21/17 19:00 80 26 99 Mechanical Ventilator 70 106/55 08/21/17 19:00 107/40 08/21/17 19:00 89 26 70 08/21/17 18:45 80 26 99 Mechanical Ventilator 70 109/41 08/21/17 18:30 78 26 98 Mechanical Ventilator 70 119/42 08/21/17 18:15 83 26 98 Mechanical Ventilator 70 110/41 08/21/17 18:00 111/57 08/21/17 18:00 82 26 98 Mechanical Ventilator 70 90/57 08/21/17 17:45 76 26 98 Mechanical Ventilator 70 111/57 08/21/17 17:30 77 26 98 Mechanical Ventilator 70 110/57 08/21/17 17:15 77 26 98 Mechanical Ventilator 70 108/57 Intake and Output 08/21/17 08/22/17 19:00 07:00 Intake Total 1511.020 ml 1497.310 ml Output Total 450 ml 400 ml Balance 1061.020 ml 1097.310 ml Intake Oral 0 ml 0 ml IV Total 1511.020 ml 1497.310 ml Output Urine Total 450 ml 400 ml Laboratory Tests Test 08/21/17 18:00 08/22/17 03:00 08/22/17 08:45 08/22/17 09:45 Activated Partial Thromboplast Time 34 SEC (23-33) H 59 SEC (23-33) H 84 SEC (23-33) H Lactic Acid Level 2.60 mmol/L (0.66-2.22) H Troponin I 9.435 ng/mL (0.000-0.056) White Blood Count 15.8 K/UL (4.8-10.8) H Red Blood Count 3.71 M/UL (4.20-5.40) L Hemoglobin 8.7 G/DL (12.0-16.0) L Hematocrit 29.2 % (37.0-47.0) L Mean Corpuscular Volume 79 FL (80-99) L Mean Corpuscular Hemoglobin 23.4 PG (27.0-31.0) L Mean Corpuscular Hemoglobin Concent 29.7 G/DL (32.0-36.0) L Red Cell Distribution Width 17.5 % (11.6-14.8) H Platelet Count 103 K/UL (150-450) L Mean Platelet Volume 7.3 FL (6.5-10.1) Neutrophils (%) (Auto) % (45.0-75.0) Lymphocytes (%) (Auto) % (20.0-45.0) Monocytes (%) (Auto) % (1.0-10.0) Eosinophils (%) (Auto) % (0.0-3.0) Basophils (%) (Auto) % (0.0-2.0) Differential Total Cells Counted 100 Neutrophils % (Manual) 74 % (45-75) Lymphocytes % (Manual) 14 % (20-45) L Monocytes % (Manual) 3 % (1-10) Eosinophils % (Manual) 0 % (0-3) Basophils % (Manual) 0 % (0-2) Band Neutrophils 9 % (0-8) H Platelet Estimate Decreased L Platelet Morphology Normal Hypochromasia 1+ Anisocytosis 1+ Microcytosis 1+ Sodium Level 137 MMOL/L (136-145) Potassium Level 3.7 MMOL/L (3.5-5.1) Chloride Level 98 MMOL/L (98-107) Carbon Dioxide Level 29 MMOL/L (21-32) Anion Gap 10 mmol/L (5-15) Blood Urea Nitrogen 47 mg/dL (7-18) H Creatinine 4.7 MG/DL (0.55-1.30) H Estimat Glomerular Filtration Rate 11.5 mL/min (>60) Glucose Level 178 MG/DL (74-106) H Calcium Level 7.8 MG/DL (8.5-10.1) L Phosphorus Level 2.7 MG/DL (2.5-4.9) Magnesium Level 1.6 MG/DL (1.8-2.4) L Total Bilirubin 1.7 MG/DL (0.2-1.0) H Direct Bilirubin 0.8 MG/DL (0.0-0.3) H Aspartate Amino Transf (AST/SGOT) 1060 U/L (15-37) H Alanine Aminotransferase (ALT/SGPT) 2460 U/L (12-78) H Alkaline Phosphatase 81 U/L (46-116) Total Protein 6.3 G/DL (6.4-8.2) L Albumin 2.0 G/DL (3.4-5.0) L Globulin 4.3 g/dL Albumin/Globulin Ratio 0.5 (1.0-2.7) L Random Vancomycin Level 13.6 ug/mL Arterial Blood pH 7.511 (7.350-7.450) Arterial Blood Partial Pressure CO2 39.2 mmHg (35.0-45.0) Arterial Blood Partial Pressure O2 231.8 mmHg (75.0-100.0) H Arterial Blood HCO3 30.6 mmol/L (22.0-26.0) H Arterial Blood Oxygen Saturation 99.4 % (92.0-98.0) H Arterial Blood Base Excess 7.1 Doroteo Test Positive Test 08/22/17 10:12 Urine Legionella Antigen Pending Mycoplasma pneumoniae IgG Antibody Pending Mycoplasma pneumoniae IgM Ab Titer Pending Objective LUNGS: Decreased breath sounds.Orally intubated CARDIOVASCULAR: Regular S1 and S2 with no gallop. ABDOMEN: Morbidly obese. EXTREMITIES: 2+ pitting edema. DIANDRA CUMMINGS Aug 22, 2017 17:18
[2017-08-22] MEDS ORDERED: Tubing IV Secondary IV ONE (17:43)
[2017-08-22] MEDS: Dyna-Hex 2% Top Sol 2oz TOPIC SCH (21:05)
[2017-08-22] MEDS: Atorvastatin 20mg tab ORAL SCH (21:06)
[2017-08-22] MEDS: Heparin 5000 units/ml inj SUBQ SCH (21:07)
[2017-08-23] VITALS (23 sets, daily range): BP systolic 92–115; BP diastolic 38–57
[2017-08-23 05:46] LABS: HEMATOCRIT 29.3 % (37.0-47.0); HEMOGLOBIN 8.5 G/DL (12.0-16.0); MEAN CORPUSCULAR VOLUME 80 FL (80-99); PLATELET COUNT 85 K/UL (150-450); RED BLOOD COUNT 3.66 M/UL (4.20-5.40); RED CELL DISTRIBUTION WIDTH 18.1 % (11.6-14.8); WHITE BLOOD COUNT 18.9 K/UL (4.8-10.8)
[2017-08-23] MEDS: NovoLOG Insulin Flexpen SUBQ SCH ×4 (06:09→21:17)
[2017-08-23 06:36] LABS: ALANINE AMINOTRANSFERASE 1557 U/L (12-78); ALBUMIN 1.9 G/DL (3.4-5.0); ALBUMIN/GLOBULIN RATIO 0.5 (1.0-2.7); ALKALINE PHOSPHATASE 82 U/L (46-116); ANION GAP 7 mmol/L (5-15); ASPARTATE AMINO TRANSFERASE 422 U/L (15-37); BILIRUBIN,DIRECT 0.8 MG/DL (0.0-0.3); BILIRUBIN,TOTAL 1.5 MG/DL (0.2-1.0); BLOOD UREA NITROGEN 39 mg/dL (7-18); CALCIUM 7.5 MG/DL (8.5-10.1); CARBON DIOXIDE 33 MMOL/L (21-32); CHLORIDE 101 MMOL/L (98-107); CREATININE 3.5 MG/DL (0.55-1.30); PHOSPHORUS 2.8 MG/DL (2.5-4.9); SODIUM 141 MMOL/L (136-145)
--- NOTE | 2017-08-23 08:04 | Pulmonolgy Critical Care Note ---
Critical Care - Asmt/Plan Problems: (1) Acute respiratory failure with hypoxia and hypercapnia (2) Acute renal failure (ARF) (3) Non-STEMI (non-ST elevated myocardial infarction) (4) Septic shock (5) Acute toxic metabolic encephalopathy (6) DM2 (diabetes mellitus, type 2) (7) Lactic acid acidosis Respiratory: monitor respiratory rate, adjust FIO2, CXR Cardiac: continue to monitor HR/BP Renal: F/U I&O, decrease IV fluid Infectious Disease: check cultures Gastrointestinal: continue feedings/current rate Endocrine: monitor blood sugar, check HgA1C, continue sliding scale insulin Hematologic: transfuse if hgb<8.5 Neurologic: PRN Ativan, PRN Morphine, keep patient comfortable Prophylaxis: Protonix 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, 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 with: nurses, consultants, bilingual patient support caseworkeradmissions manager rn - Objective Last 24 Hour Vital Signs Date Time Temp Pulse Resp B/P (MAP) Pulse Ox O2 Delivery O2 Flow Rate FiO2 08/23/17 06:56 78 22 40 08/23/17 06:00 81 18 96/38 97 Mechanical Ventilator 40 08/23/17 05:28 78 20 40 08/23/17 05:00 72 17 96/49 97 Mechanical Ventilator 40 08/23/17 04:00 40 08/23/17 04:00 99.0 71 17 101/47 97 Mechanical Ventilator 40 08/23/17 04:00 71 08/23/17 03:05 70 20 40 08/23/17 03:00 72 17 100/45 97 Mechanical Ventilator 40 08/23/17 02:00 73 18 103/46 97 Mechanical Ventilator 40 08/23/17 01:29 74 20 40 08/23/17 01:00 74 20 98/48 97 Mechanical Ventilator 40 08/23/17 00:00 40 08/23/17 00:00 99.1 75 20 99/47 95 Mechanical Ventilator 40 08/22/17 23:21 74 20 40 08/22/17 23:00 74 20 101/46 97 Mechanical Ventilator 40 08/22/17 22:00 73 14 98/48 95 Mechanical Ventilator 40 08/22/17 21:20 72 20 40 08/22/17 21:00 74 20 101/44 95 Mechanical Ventilator 40 08/22/17 20:00 99.3 75 11 103/52 96 Mechanical Ventilator 40 08/22/17 20:00 75 08/22/17 20:00 40 08/22/17 19:11 75 20 40 08/22/17 19:00 74 20 105/52 95 Mechanical Ventilator 40 08/22/17 18:00 74 17 101/51 95 Mechanical Ventilator 40 08/22/17 17:20 75 22 40 08/22/17 17:00 99.1 77 17 105/47 94 Mechanical Ventilator 40 08/22/17 16:00 40 08/22/17 16:00 75 11 105/44 93 Mechanical Ventilator 40 08/22/17 16:00 77 08/22/17 15:01 84 20 Mechanical Ventilator 40 08/22/17 15:00 77 8 98/48 93 Mechanical Ventilator 40 08/22/17 15:00 40 08/22/17 14:38 76 20 40 08/22/17 14:37 76 20 94 Mechanical Ventilator 40 08/22/17 14:00 74 14 105/49 94 Mechanical Ventilator 40 08/22/17 13:41 100/51 08/22/17 13:30 Mechanical Ventilator 40 08/22/17 13:30 99.0 76 20 100/51 Mechanical Ventilator 40 08/22/17 13:00 74 14 108/48 94 Mechanical Ventilator 40 08/22/17 12:53 73 20 40 08/22/17 12:00 99.4 94 14 105/47 98 Mechanical Ventilator 40 08/22/17 12:00 40 08/22/17 12:00 78 08/22/17 11:00 78 17 94/47 96 Mechanical Ventilator 40 08/22/17 10:54 77 20 40 08/22/17 10:00 79 14 95/47 96 Mechanical Ventilator 40 08/22/17 09:42 100.4 08/22/17 09:06 77 26 40 08/22/17 09:00 100.3 85 20 107/46 Mechanical Ventilator 40 08/22/17 09:00 Mechanical Ventilator 40 08/22/17 09:00 77 14 100/48 95 Mechanical Ventilator 70 08/22/17 08:08 70 08/22/17 08:05 78 26 98 Mechanical Ventilator 70 Status: awake Condition: critical HEENT: atraumatic Neck: full ROM Heart: HR/BP stable, HR/BP unstable Abdomen: non-tender, feeding tube Decubiti: stage Accucheck: 136 Critical Care - Subjective ROS Limited/Unobtainable: No ICU Day: 4 Intubation Day: 4 Condition: critical EKG Rhythm: Sinus Rhythm FI02: 40 Vent Support Breath Rate: 20 Vent Support Mode: AC Vent Tidal Volume: 700 Sputum Amount: Small PEEP: 5.0 PIP: 39 Tube Feeding Amount: 20 I&O: Intake and Output 08/22/17 08/23/17 19:00 07:00 Intake Total 100 ml 1570 ml Output Total 295 ml 240 ml Balance -195 ml 1330 ml Intake Oral 0 ml IV Total 100 ml 1350 ml Tube Feeding 220 ml Output Urine Total 295 ml 240 ml Hemodialysis UF 0 ml # Bowel Movements 2 CXR: large left infiltrate ET-Tube: 8.0 ET Position: 24 Labs: Laboratory Tests Test 08/22/17 08:45 08/22/17 09:45 08/22/17 10:12 08/23/17 03:30 Arterial Blood pH 7.511 (7.350-7.450) Arterial Blood Partial Pressure CO2 39.2 mmHg (35.0-45.0) Arterial Blood Partial Pressure O2 231.8 mmHg (75.0-100.0) H Arterial Blood HCO3 30.6 mmol/L (22.0-26.0) H Arterial Blood Oxygen Saturation 99.4 % (92.0-98.0) H Arterial Blood Base Excess 7.1 Doroteo Test Positive Activated Partial Thromboplast Time 84 SEC (23-33) H Mycoplasma pneumoniae IgG Antibody Pending Mycoplasma pneumoniae IgM Ab Titer Pending Urine Legionella Antigen Pending Test 08/23/17 04:00 White Blood Count 18.9 K/UL (4.8-10.8) H Red Blood Count 3.66 M/UL (4.20-5.40) L Hemoglobin 8.5 G/DL (12.0-16.0) L Hematocrit 29.3 % (37.0-47.0) L Mean Corpuscular Volume 80 FL (80-99) Mean Corpuscular Hemoglobin 23.1 PG (27.0-31.0) L Mean Corpuscular Hemoglobin Concent 28.9 G/DL (32.0-36.0) L Red Cell Distribution Width 18.1 % (11.6-14.8) H Platelet Count 85 K/UL (150-450) L Mean Platelet Volume 8.5 FL (6.5-10.1) Neutrophils (%) (Auto) % (45.0-75.0) Lymphocytes (%) (Auto) % (20.0-45.0) Monocytes (%) (Auto) % (1.0-10.0) Eosinophils (%) (Auto) % (0.0-3.0) Basophils (%) (Auto) % (0.0-2.0) Differential Total Cells Counted 100 Neutrophils % (Manual) 82 % (45-75) H Lymphocytes % (Manual) 13 % (20-45) L Monocytes % (Manual) 5 % (1-10) Eosinophils % (Manual) 0 % (0-3) Basophils % (Manual) 0 % (0-2) Band Neutrophils 0 % (0-8) Platelet Estimate Decreased L Platelet Morphology Normal Hypochromasia 1+ Anisocytosis 1+ Activated Partial Thromboplast Time 33 SEC (23-33) Sodium Level 141 MMOL/L (136-145) Potassium Level 3.0 MMOL/L (3.5-5.1) L Chloride Level 101 MMOL/L (98-107) Carbon Dioxide Level 33 MMOL/L (21-32) H Anion Gap 7 mmol/L (5-15) Blood Urea Nitrogen 39 mg/dL (7-18) H Creatinine 3.5 MG/DL (0.55-1.30) H Estimat Glomerular Filtration Rate 16.2 mL/min (>60) Glucose Level 123 MG/DL (74-106) H Calcium Level 7.5 MG/DL (8.5-10.1) L Phosphorus Level 2.8 MG/DL (2.5-4.9) Magnesium Level 1.6 MG/DL (1.8-2.4) L Total Bilirubin 1.5 MG/DL (0.2-1.0) H Direct Bilirubin 0.8 MG/DL (0.0-0.3) H Aspartate Amino Transf (AST/SGOT) 422 U/L (15-37) H Alanine Aminotransferase (ALT/SGPT) 1557 U/L (12-78) H Alkaline Phosphatase 82 U/L (46-116) Troponin I 3.401 ng/mL (0.000-0.056) Total Protein 6.1 G/DL (6.4-8.2) L Albumin 1.9 G/DL (3.4-5.0) L Globulin 4.2 g/dL Albumin/Globulin Ratio 0.5 (1.0-2.7) L DOMONIQUE DOBBS Aug 23, 2017 08:04
[2017-08-23] MEDS: Aspirin Baby 81mg ORAL SCH (09:35)
[2017-08-23] MEDS: Magnesium Oxide 400mg tab ORAL SCH ×2 (09:35→18:12)
[2017-08-23] MEDS: Azithromycin 250mg tab ORAL SCH (09:35)
[2017-08-23] MEDS: Pantoprazole Inj IV SCH (09:36)
[2017-08-23] MEDS: Heparin 5000 units/ml inj SUBQ SCH ×2 (09:47→21:18)
--- NOTE | 2017-08-23 11:26 | Diagnostic Imaging Report ---
Indication: Infection Technique: XRAY Chest 1v Comparison: 08/22/2017 Findings: Endotracheal tube and nontunneled dialysis catheter unchanged in position. NG tube courses below level of diaphragms, tip beyond the inferior margin of the film. Heart is enlarged but stable. Interstitial opacities and confluent bilateral airspace opacities compatible with a severe alveolar filling process such as pulmonary edema, multifocal pneumonia and/or ARDS. There is interval worsening of aeration of the right lung compared to one day prior. No pneumothorax. Impression: Since is interstitial and bilateral airspace opacities with interval worsening of aeration of the right lung compared to one day prior.
--- NOTE | 2017-08-23 11:56 | Nephrology Progress Note ---
Assessment/Plan Problem List: (1) Acute renal failure (ARF) (2) Acute respiratory acidosis (3) Lactic acid acidosis (4) Septic shock (5) Acute respiratory failure with hypoxia and hypercapnia (6) Elevated troponin I level Assessment acute renal failure Hyperkalemia resolved sepsis, high Lactic , acidosis low BP resp failure obese rapid rise in Troponin- now on way down Plan dialysed 08/19 redialysed 08/22 per cardiology and ID and pulm discussed with ID monitor renal parameters and dialysis as needed Subjective ROS Limited/Unobtainable: Yes Objective Objective Last 24 Hour Vital Signs Date Time Temp Pulse Resp B/P (MAP) Pulse Ox O2 Delivery O2 Flow Rate FiO2 08/23/17 10:58 68 20 40 08/23/17 09:06 71 20 40 08/23/17 09:00 67 16 92/41 97 Mechanical Ventilator 40 08/23/17 08:00 99.4 77 18 103/46 97 Mechanical Ventilator 40 08/23/17 08:00 40 08/23/17 06:56 78 22 40 08/23/17 06:00 81 18 96/38 97 Mechanical Ventilator 40 08/23/17 05:28 78 20 40 08/23/17 05:00 72 17 96/49 97 Mechanical Ventilator 40 08/23/17 04:00 40 08/23/17 04:00 99.0 71 17 101/47 97 Mechanical Ventilator 40 08/23/17 04:00 71 08/23/17 03:05 70 20 40 08/23/17 03:00 72 17 100/45 97 Mechanical Ventilator 40 08/23/17 02:00 73 18 103/46 97 Mechanical Ventilator 40 08/23/17 01:29 74 20 40 08/23/17 01:00 74 20 98/48 97 Mechanical Ventilator 40 08/23/17 00:00 40 08/23/17 00:00 99.1 75 20 99/47 95 Mechanical Ventilator 40 08/22/17 23:21 74 20 40 08/22/17 23:00 74 20 101/46 97 Mechanical Ventilator 40 08/22/17 22:00 73 14 98/48 95 Mechanical Ventilator 40 08/22/17 21:20 72 20 40 08/22/17 21:00 74 20 101/44 95 Mechanical Ventilator 40 08/22/17 20:00 99.3 75 11 103/52 96 Mechanical Ventilator 40 08/22/17 20:00 75 08/22/17 20:00 40 08/22/17 19:11 75 20 40 08/22/17 19:00 74 20 105/52 95 Mechanical Ventilator 40 08/22/17 18:00 74 17 101/51 95 Mechanical Ventilator 40 08/22/17 17:20 75 22 40 08/22/17 17:00 99.1 77 17 105/47 94 Mechanical Ventilator 40 08/22/17 16:00 40 08/22/17 16:00 75 11 105/44 93 Mechanical Ventilator 40 08/22/17 16:00 77 08/22/17 15:01 84 20 Mechanical Ventilator 40 08/22/17 15:00 77 8 98/48 93 Mechanical Ventilator 40 08/22/17 15:00 40 08/22/17 14:38 76 20 40 08/22/17 14:37 76 20 94 Mechanical Ventilator 40 08/22/17 14:00 74 14 105/49 94 Mechanical Ventilator 40 08/22/17 13:41 100/51 08/22/17 13:30 Mechanical Ventilator 40 08/22/17 13:30 99.0 76 20 100/51 Mechanical Ventilator 40 08/22/17 13:00 74 14 108/48 94 Mechanical Ventilator 40 08/22/17 12:53 73 20 40 08/22/17 12:00 99.4 94 14 105/47 98 Mechanical Ventilator 40 08/22/17 12:00 40 08/22/17 12:00 78 Intake and Output 08/22/17 08/23/17 19:00 07:00 Intake Total 100 ml 1570 ml Output Total 295 ml 240 ml Balance -195 ml 1330 ml Intake Oral 0 ml IV Total 100 ml 1350 ml Tube Feeding 220 ml Output Urine Total 295 ml 240 ml Hemodialysis UF 0 ml # Bowel Movements 2 Laboratory Tests 08/23/17 03:30: Urine Legionella Antigen [Pending] 08/23/17 04:00: White Blood Count 18.9H, Red Blood Count 3.66L, Hemoglobin 8.5L, Hematocrit 29.3L, Mean Corpuscular Volume 80, Mean Corpuscular Hemoglobin 23.1L, Mean Corpuscular Hemoglobin Concent 28.9L, Red Cell Distribution Width 18.1H, Platelet Count 85L, Mean Platelet Volume 8.5, Neutrophils (%) (Auto) , Lymphocytes (%) (Auto) , Monocytes (%) (Auto) , Eosinophils (%) (Auto) , Basophils (%) (Auto) , Differential Total Cells Counted 100, Neutrophils % ( Manual) 82H, Lymphocytes % (Manual) 13L, Monocytes % (Manual) 5, Eosinophils % ( Manual) 0, Basophils % (Manual) 0, Band Neutrophils 0, Platelet Estimate DecreasedL, Platelet Morphology Normal, Hypochromasia 1+, Anisocytosis 1+, Activated Partial Thromboplast Time 33, Sodium Level 141, Potassium Level 3.0L, Chloride Level 101, Carbon Dioxide Level 33H, Anion Gap 7, Blood Urea Nitrogen 39H, Creatinine 3.5H, Estimat Glomerular Filtration Rate 16.2, Glucose Level 123H, Calcium Level 7.5L, Phosphorus Level 2.8, Magnesium Level 1.6L, Total Bilirubin 1.5H, Direct Bilirubin 0.8H, Aspartate Amino Transf (AST/SGOT) 422H, Alanine Aminotransferase (ALT/SGPT) 1557H, Alkaline Phosphatase 82, Troponin I 3.401H, Total Protein 6.1L, Albumin 1.9L, Globulin 4.2, Albumin/Globulin Ratio 0.5L 08/23/17 09:10: Arterial Blood pH 7.491H, Arterial Blood Partial Pressure CO2 48.2H, Arterial Blood Partial Pressure O2 99.4, Arterial Blood HCO3 36.0H, Arterial Blood Oxygen Saturation 97.2, Arterial Blood Base Excess 11.4, Doroteo Test Positive Height (Feet): 5 Height (Inches): 3.00 Weight (Pounds): 488 General Appearance: other - on vent Respiratory/Chest: decreased breath sounds Abdomen: distended, other - obese AGUSTIN CONTRERAS Aug 23, 2017 11:56
[2017-08-23] MEDS ORDERED: LR 1000ml ONE (14:59)
[2017-08-23] MEDS ORDERED: D5W 275ml ONE (14:59)
[2017-08-23] MEDS ORDERED: Tubing IV Secondary IV ONE (14:59)
[2017-08-23] MEDS ORDERED: NS 500ML ONE (14:59)
--- NOTE | 2017-08-23 18:08 | General Progress Note ---
Assessment/Plan Assessment/Plan Assessment/Plan Problems: (1) Shock liver ICD Codes: K72.00 - Acute and subacute hepatic failure without coma SNOMED: 155636518 (2) Anemia ICD Codes: D64.9 - Anemia, unspecified SNOMED: 165308569 (3) Morbid obesity ICD Codes: E66.01 - Morbid (severe) obesity due to excess calories SNOMED: 661864901, 00456904942995 (4) Multiple organ failure SNOMED: 19903627 (5) Transaminitis ICD Codes: R74.0 - Nonspecific elevation of levels of transaminase and lactic acid dehydrogenase [LDH] SNOMED: 247250212, 979865980 (6) Septic shock ICD Codes: A41.9 - Sepsis, unspecified organism; R65.21 - Severe sepsis with septic shock SNOMED: 14424017 (7) DM2 (diabetes mellitus, type 2) ICD Codes: E11.9 - Type 2 diabetes mellitus without complications SNOMED: 83889298 (8) GERD (gastroesophageal reflux disease) ICD Codes: K21.9 - Gastro-esophageal reflux disease without esophagitis SNOMED: 333831034 Assessment/Plan defer GI procedures at this time Continue NGT feeds If pain persists, would check CT abd/pelvis in am transaminitis due to shock liver >> trend anemia work up OB stool r/o GI bleed monitor H&H, prn transfusions ppi abx fu labs Subjective Allergies: Coded Allergies: No Known Allergies (Unverified , 06/01/17) Subjective intubated, responsive c/o mild abd pain tolerating TF (+) BM Objective Last 24 Hour Vital Signs Date Time Temp Pulse Resp B/P (MAP) Pulse Ox O2 Delivery O2 Flow Rate FiO2 08/23/17 17:08 66 20 40 08/23/17 17:00 67 20 105/48 95 Mechanical Ventilator 40 08/23/17 16:00 98.3 68 18 113/53 95 Mechanical Ventilator 40 08/23/17 16:00 40 08/23/17 15:08 65 20 40 08/23/17 15:00 64 20 109/53 95 Mechanical Ventilator 40 08/23/17 14:00 70 20 113/50 95 Mechanical Ventilator 40 08/23/17 13:24 76 23 40 08/23/17 13:00 75 21 110/48 95 Mechanical Ventilator 40 08/23/17 12:00 71 1/14/18 12:00 99.3 68 17 108/51 97 Mechanical Ventilator 40 08/23/17 12:00 40 08/23/17 11:00 68 17 93/57 97 Mechanical Ventilator 40 08/23/17 10:58 68 20 40 08/23/17 10:00 70 19 102/46 97 Mechanical Ventilator 40 08/23/17 09:06 71 20 40 08/23/17 09:00 67 16 92/41 97 Mechanical Ventilator 40 08/23/17 08:00 99.4 77 18 103/46 97 Mechanical Ventilator 40 08/23/17 08:00 40 08/23/17 08:00 77 08/23/17 06:56 78 22 40 08/23/17 06:00 81 18 96/38 97 Mechanical Ventilator 40 08/23/17 05:28 78 20 40 08/23/17 05:00 72 17 96/49 97 Mechanical Ventilator 40 08/23/17 04:00 40 08/23/17 04:00 99.0 71 17 101/47 97 Mechanical Ventilator 40 08/23/17 04:00 71 08/23/17 03:05 70 20 40 08/23/17 03:00 72 17 100/45 97 Mechanical Ventilator 40 08/23/17 02:00 73 18 103/46 97 Mechanical Ventilator 40 08/23/17 01:29 74 20 40 08/23/17 01:00 74 20 98/48 97 Mechanical Ventilator 40 08/23/17 00:00 40 08/23/17 00:00 99.1 75 20 99/47 95 Mechanical Ventilator 40 08/22/17 23:21 74 20 40 08/22/17 23:00 74 20 101/46 97 Mechanical Ventilator 40 08/22/17 22:00 73 14 98/48 95 Mechanical Ventilator 40 08/22/17 21:20 72 20 40 08/22/17 21:00 74 20 101/44 95 Mechanical Ventilator 40 08/22/17 20:00 99.3 75 11 103/52 96 Mechanical Ventilator 40 08/22/17 20:00 75 08/22/17 20:00 40 08/22/17 19:11 75 20 40 08/22/17 19:00 74 20 105/52 95 Mechanical Ventilator 40 Intake and Output 08/22/17 08/23/17 19:00 07:00 Intake Total 100 ml 1570 ml Output Total 295 ml 240 ml Balance -195 ml 1330 ml Intake Oral 0 ml IV Total 100 ml 1350 ml Tube Feeding 220 ml Output Urine Total 295 ml 240 ml Hemodialysis UF 0 ml # Bowel Movements 2 Laboratory Tests 08/23/17 03:30: Urine Legionella Antigen [Pending] 08/23/17 04:00: White Blood Count 18.9H, Red Blood Count 3.66L, Hemoglobin 8.5L, Hematocrit 29.3L, Mean Corpuscular Volume 80, Mean Corpuscular Hemoglobin 23.1L, Mean Corpuscular Hemoglobin Concent 28.9L, Red Cell Distribution Width 18.1H, Platelet Count 85L, Mean Platelet Volume 8.5, Neutrophils (%) (Auto) , Lymphocytes (%) (Auto) , Monocytes (%) (Auto) , Eosinophils (%) (Auto) , Basophils (%) (Auto) , Differential Total Cells Counted 100, Neutrophils % ( Manual) 82H, Lymphocytes % (Manual) 13L, Monocytes % (Manual) 5, Eosinophils % ( Manual) 0, Basophils % (Manual) 0, Band Neutrophils 0, Platelet Estimate DecreasedL, Platelet Morphology Normal, Hypochromasia 1+, Anisocytosis 1+, Activated Partial Thromboplast Time 33, Arterial Blood pH 7.491H, Arterial Blood Partial Pressure CO2 48.2H, Arterial Blood Partial Pressure O2 99.4, Arterial Blood HCO3 36.0H, Arterial Blood Oxygen Saturation 97.2, Arterial Blood Base Excess 11.4, Doroteo Test Positive, Sodium Level 141, Potassium Level 3.0L, Chloride Level 101, Carbon Dioxide Level 33H, Anion Gap 7, Blood Urea Nitrogen 39H, Creatinine 3.5H, Estimat Glomerular Filtration Rate 16.2, Glucose Level 123H, Calcium Level 7.5L, Phosphorus Level 2.8, Magnesium Level 1.6L, Total Bilirubin 1.5H, Direct Bilirubin 0.8H, Aspartate Amino Transf (AST/SGOT) 422H, Alanine Aminotransferase (ALT/SGPT) 1557H, Alkaline Phosphatase 82, Troponin I 3.401H, C-Reactive Protein, Quantitative > 70.0H, Total Protein 6.1L , Albumin 1.9L, Globulin 4.2, Albumin/Globulin Ratio 0.5L Height (Feet): 5 Height (Inches): 3.00 Weight (Pounds): 488 Objective Obese AA woman NCAT supple CTA RRR soft, mild lower abd central abd TTP trace edema YAA CALVO Aug 23, 2017 18:08
[2017-08-23] MEDS: Meropenem 500 MG in NS 55 ML IVPB SCH (18:12)
--- NOTE | 2017-08-23 18:52 | Internal Med Progress Note ---
Subjective Physician Name LupeMaryjane peters Attending Physician Brittany Edmond Current Medications Medications (Trade) Dose Ordered Sig/Felipe Route PRN Reason Start Time Stop Time Status Last Admin Dose Admin Acetaminophen (Tylenol) 650 mg Q6HR PRN NG Mild Pain/Temp > 100.1 08/20/17 13:00 09/19/17 12:59 08/22/17 09:12 Albuterol/ Ipratropium (Albuterol/ Ipratropium) 3 ml Q4H PRN HHN Shortness of Breath 08/19/17 10:30 08/24/17 10:29 08/22/17 14:37 Aspirin (ASA) 81 mg DAILY ORAL 08/20/17 09:00 09/19/17 08:59 08/23/17 09:35 Atorvastatin Calcium (Lipitor) 20 mg BEDTIME ORAL 08/22/17 21:00 09/21/17 20:59 08/22/17 21:06 Azithromycin (Zithromax) 250 mg DAILY ORAL 08/23/17 09:00 08/30/17 08:59 08/23/17 09:35 Chlorhexidine Gluconate (Vicki-Hex 2%) 1 applic DAILY@2000 TOPIC 08/20/17 20:00 09/19/17 19:59 08/22/17 21:05 Dextrose (Dextrose 50%) STAT PRN IV Hypoglycemia 08/19/17 12:00 09/18/17 11:59 Epoetin Dario (Procrit (for ESRD on dialysis)) 10,000 units MON-WED-FRI SUBQ 08/21/17 21:00 09/20/17 20:59 08/21/17 21:08 Heparin Sodium (Porcine) (Heparin 5000 units/ml) 5,000 units EVERY 12 HOURS SUBQ 08/22/17 21:00 09/21/17 20:59 08/23/17 09:47 Insulin Aspart (NovoLOG) BEFORE MEALS AND HS SUBQ 08/19/17 12:30 09/18/17 12:29 08/23/17 16:19 Lorazepam (Ativan 2mg/ml 1ml) 2 mg Q4H PRN IV For Anxiety 08/19/17 12:00 08/26/17 11:59 Magnesium Oxide (Mag-Ox 400mg) 400 mg BID ORAL 08/22/17 09:00 09/21/17 08:59 08/23/17 18:12 Meropenem 500 mg/ Sodium Chloride 55 ml @ 110 mls/hr Q24H IVPB 08/23/17 18:00 08/27/17 17:59 08/23/17 18:12 Morphine Sulfate (Morphine Sulfate) 2 mg Q4H PRN IVP Moderate Pain (Pain Scale 4-6) 08/19/17 10:30 08/26/17 10:29 Morphine Sulfate (Morphine Sulfate) 4 mg Q4H PRN IVP For Pain Scale 7-10 08/19/17 12:00 08/26/17 11:59 Nitroglycerin (Ntg) 0.4 mg Q5MIN X 3 DOSES PRN SL Prn Chest Pain 08/19/17 12:00 09/18/17 11:59 Ondansetron HCl (Zofran) 4 mg Q6H PRN IVP Nausea & Vomiting 08/19/17 12:00 09/18/17 11:59 Pantoprazole (Protonix) 40 mg DAILY IV 08/20/17 09:00 09/19/17 08:59 08/23/17 09:36 Polyethylene Glycol (Miralax) 17 gm DAILYPRN PRN ORAL Constipation 08/19/17 10:30 09/18/17 10:29 Sodium Chloride 1,000 ml @ 30 mls/hr Q24H IVLG 08/23/17 09:00 09/22/17 08:59 08/23/17 13:41 Temazepam (Restoril) 15 mg HSPRN PRN ORAL Insomnia 08/19/17 12:00 08/26/17 11:59 Vancomycin HCl (Vanco rx to dose) 1 ea DAILYPRN PRN MISC RX TO DOSE PROTOCL 08/19/17 13:00 09/18/17 12:59 Allergies: Coded Allergies: No Known Allergies (Unverified , 06/01/17) Objective Last Vital Signs Date Time Temp Pulse Resp B/P (MAP) Pulse Ox O2 Delivery O2 Flow Rate FiO2 08/23/17 18:00 64 18 102/50 95 Mechanical Ventilator 40 08/23/17 16:00 98.3 08/19/17 13:14 15.0 Laboratory Tests Test 08/23/17 03:30 08/23/17 04:00 Urine Legionella Antigen Pending White Blood Count 18.9 K/UL (4.8-10.8) H Red Blood Count 3.66 M/UL (4.20-5.40) L Hemoglobin 8.5 G/DL (12.0-16.0) L Hematocrit 29.3 % (37.0-47.0) L Mean Corpuscular Volume 80 FL (80-99) Mean Corpuscular Hemoglobin 23.1 PG (27.0-31.0) L Mean Corpuscular Hemoglobin Concent 28.9 G/DL (32.0-36.0) L Red Cell Distribution Width 18.1 % (11.6-14.8) H Platelet Count 85 K/UL (150-450) L Mean Platelet Volume 8.5 FL (6.5-10.1) Neutrophils (%) (Auto) % (45.0-75.0) Lymphocytes (%) (Auto) % (20.0-45.0) Monocytes (%) (Auto) % (1.0-10.0) Eosinophils (%) (Auto) % (0.0-3.0) Basophils (%) (Auto) % (0.0-2.0) Differential Total Cells Counted 100 Neutrophils % (Manual) 82 % (45-75) H Lymphocytes % (Manual) 13 % (20-45) L Monocytes % (Manual) 5 % (1-10) Eosinophils % (Manual) 0 % (0-3) Basophils % (Manual) 0 % (0-2) Band Neutrophils 0 % (0-8) Platelet Estimate Decreased L Platelet Morphology Normal Hypochromasia 1+ Anisocytosis 1+ Activated Partial Thromboplast Time 33 SEC (23-33) Arterial Blood pH 7.491 (7.350-7.450) Arterial Blood Partial Pressure CO2 48.2 mmHg (35.0-45.0) H Arterial Blood Partial Pressure O2 99.4 mmHg (75.0-100.0) Arterial Blood HCO3 36.0 mmol/L (22.0-26.0) H Arterial Blood Oxygen Saturation 97.2 % (92.0-98.0) Arterial Blood Base Excess 11.4 Doroteo Test Positive Sodium Level 141 MMOL/L (136-145) Potassium Level 3.0 MMOL/L (3.5-5.1) L Chloride Level 101 MMOL/L (98-107) Carbon Dioxide Level 33 MMOL/L (21-32) H Anion Gap 7 mmol/L (5-15) Blood Urea Nitrogen 39 mg/dL (7-18) H Creatinine 3.5 MG/DL (0.55-1.30) H Estimat Glomerular Filtration Rate 16.2 mL/min (>60) Glucose Level 123 MG/DL (74-106) H Calcium Level 7.5 MG/DL (8.5-10.1) L Phosphorus Level 2.8 MG/DL (2.5-4.9) Magnesium Level 1.6 MG/DL (1.8-2.4) L Total Bilirubin 1.5 MG/DL (0.2-1.0) H Direct Bilirubin 0.8 MG/DL (0.0-0.3) H Aspartate Amino Transf (AST/SGOT) 422 U/L (15-37) H Alanine Aminotransferase (ALT/SGPT) 1557 U/L (12-78) H Alkaline Phosphatase 82 U/L (46-116) Troponin I 3.401 ng/mL (0.000-0.056) C-Reactive Protein, Quantitative > 70.0 mg/dL (0.00-0.90) H Total Protein 6.1 G/DL (6.4-8.2) L Albumin 1.9 G/DL (3.4-5.0) L Globulin 4.2 g/dL Albumin/Globulin Ratio 0.5 (1.0-2.7) L Intake and Output 08/22/17 08/23/17 19:00 07:00 Intake Total 100 ml 1570 ml Output Total 295 ml 240 ml Balance -195 ml 1330 ml Intake Oral 0 ml IV Total 100 ml 1350 ml Tube Feeding 220 ml Output Urine Total 295 ml 240 ml Hemodialysis UF 0 ml # Bowel Movements 2 Assessment/Plan Assessment/Plan Assessment/Plan Assessment/Plan Problem List: (1) SVT (supraventricular tachycardia) ICD Codes: I47.1 - Supraventricular tachycardia SNOMED: 0553995 (2) Acute respiratory failure with hypoxia and hypercapnia ICD Codes: J96.01 - Acute respiratory failure with hypoxia; J96.02 - Acute respiratory failure with hypercapnia SNOMED: 47626294, 47111740, 809302734 (3) Septic shock ICD Codes: A41.9 - Sepsis, unspecified organism; R65.21 - Severe sepsis with septic shock SNOMED: 88716029 (4) KASHIF (acute kidney injury) ICD Codes: N17.9 - Acute kidney failure, unspecified SNOMED: 87958424 (5) Lactic acid acidosis ICD Codes: E87.2 - Acidosis SNOMED: 41372609 (6) Hyperkalemia ICD Codes: E87.5 - Hyperkalemia; J96.02 - Acute respiratory failure with hypercapnia SNOMED: 40448628, 49676566, 946390281 (7) Acute toxic metabolic encephalopathy (8) Shock liver ICD Codes: K72.00 - Acute and subacute hepatic failure without coma SNOMED: 043216992 (9) Non-STEMI (non-ST elevated myocardial infarction) ICD Codes: I21.4 - Non-ST elevation (NSTEMI) myocardial infarction; J96.02 - Acute respiratory failure with hypercapnia SNOMED: 586006368, 65039682, 777698609 (10) DM2 (diabetes mellitus, type 2) ICD Codes: E11.9 - Type 2 diabetes mellitus without complications SNOMED: 31932196 (11) Asthma ICD Codes: J45.909 - Unspecified asthma, uncomplicated SNOMED: 749476264 (12) GERD (gastroesophageal reflux disease) ICD Codes: K21.9 - Gastro-esophageal reflux disease without esophagitis SNOMED: 265791067 Status: unchanged Assessment/Plan Cont ICU care Pulmonology, Nephrology, GI, ID, Cardiology consulted Empiric vanco and meropenem per ID (08/19-) F/u cultures Cont on vent and wean as tolerated Daily SBTs, sedation holiday pressors to maintain MAP 65 and above Arterial line placed 08/20/17-08/22/16 Trend lactate--downtrending Trend trop/EKG- ASA, statin Check ECHO--EF 70% Cont HD per renal (started on HD 08/19) Trend BMP closely s/p mucomyst IV for shock liver/hepatitis per GI Trend LFTs--downtrending Hold tube feeds for now PPI Pain control, supportive care, bowel regimen Attempt to contact family for GOC discussion DVT Prophylaxis: HSQ Code Status: Full Hospital Classification Declaration: Based on this initial evaluation, and depending on the patient's clinical course, I anticipate that this patient will require hospitalization for 4-5 days for acute respiratory failure, septic shock and close respiratory/hemodynamic monitoring. At the time of my involvement, the patient's condition was critical with high potential for and/or physiologic deterioration secondary to acute respiratory failure, septic shock, shock liver, KASHIF as delineated in the note above. On the above date of service, I spent a total of 39minutes in the ICU evaluating , managing, and providing critical care services to this patient, including time spent documenting these activities, counseling patient/family, and coordinating care. Critical care services performed include: Telemetry Review Hemodynamic measurement interpretation Laboratory data review and interpretation Ventilator setting review, management, and adjustment Discussion of care plans with patient, family, and/or surrogate decision makers Discussion of patient's care with primary medical team, surgical team, and/or consulting service Decision to obtain further radiologic evaluation, after consideration of risk/ benefit ratio Decision to perform invasive procedure, after consideration of risk/benefit ratio Review of most recent microbiology results with assessment and modification of antimicrobial coverage Discussion of patient's code status and further advancement towards the ultimate goals of care Plan outlined above discussed with patient/family, CHRONIC DISEASE EPIDEMIOLOGIST, ICU team, and involved physicians/consultants. D/w ID re abx. D/w pulm re pressors, vent settings Time of note may not reflect time of encounter. Subjective Subjective Date patient seen: Aug 21, 2017 Time patient seen: 18:11 ROS Limited/Unobtainable: Yes Allergies: Coded Allergies: No Known Allergies (Unverified , 06/01/17) Subjective No acute o/n events Cont on HD per renal, K improved Arterial line placed yesterday for more precise BP measures Cont on pressors WBC remains elevated at 16K Lactate downtrending Pt intubated, sedated Unable to obtain ROS as pt sedated Objective Objective Last 24 Hour Vital Signs Date Time Temp Pulse Resp B/P (MAP) Pulse Ox O2 Delivery O2 Flow Rate FiO2 08/21/17 17:00 78 26 98 Mechanical Ventilator 70 111/57 08/21/17 16:57 82 26 70 08/21/17 16:45 75 26 98 Mechanical Ventilator 70 110/58 08/21/17 16:30 75 26 98 Mechanical Ventilator 70 110/57 08/21/17 16:15 76 26 98 Mechanical Ventilator 70 109/56 08/21/17 16:00 98.6 76 26 98 Mechanical Ventilator 70 110/58 08/21/17 16:00 70 08/21/17 16:00 77 08/21/17 15:45 78 26 98 Mechanical Ventilator 70 107/57 08/21/17 15:30 65 26 98 Mechanical Ventilator 70 121/60 08/21/17 15:15 77 26 98 Mechanical Ventilator 70 115/42 08/21/17 15:03 82 26 Mechanical Ventilator 70 08/21/17 15:01 70 08/21/17 15:00 78 26 98 Mechanical Ventilator 70 105/48 08/21/17 15:00 119/48 08/21/17 14:48 86 26 99 Mechanical Ventilator 70 08/21/17 14:37 86 26 70 08/21/17 14:30 81 26 98 Mechanical Ventilator 70 113/64 08/21/17 14:15 80 26 98 Mechanical Ventilator 70 116/54 08/21/17 14:00 78 26 98 Mechanical Ventilator 70 123/34 08/21/17 14:00 97/40 08/21/17 13:45 78 26 98 Mechanical Ventilator 70 110/38 08/21/17 13:30 83 26 98 Mechanical Ventilator 70 103/37 08/21/17 13:10 86 26 70 08/21/17 13:00 100/45 08/21/17 13:00 79 26 99 Mechanical Ventilator 70 100/45 08/21/17 12:30 82 26 99 Mechanical Ventilator 70 106/35 08/21/17 12:15 82 26 99 Mechanical Ventilator 70 102/35 08/21/17 12:00 70 08/21/17 12:00 84 08/21/17 12:00 98.9 86 26 99 Mechanical Ventilator 70 92/60 08/21/17 11:45 82 26 99 Mechanical Ventilator 70 105/37 08/21/17 11:30 82 26 99 Mechanical Ventilator 70 112/61 08/21/17 11:15 85 26 99 Mechanical Ventilator 70 112/59 08/21/17 11:00 89 26 99 Mechanical Ventilator 70 109/58 08/21/17 11:00 109/59 08/21/17 10:45 97 26 99 Mechanical Ventilator 70 101/42 08/21/17 10:37 89 26 70 08/21/17 10:30 80 26 99 Mechanical Ventilator 70 109/60 08/21/17 10:25 113/63 08/21/17 10:15 78 26 99 Mechanical Ventilator 70 119/61 08/21/17 10:00 78 26 96 Mechanical Ventilator 70 128/63 08/21/17 10:00 128/63 08/21/17 09:45 78 26 96 Mechanical Ventilator 70 122/43 08/21/17 09:30 78 26 96 Mechanical Ventilator 70 126/63 08/21/17 09:15 78 26 96 Mechanical Ventilator 70 126/63 08/21/17 09:00 117 26 96 Mechanical Ventilator 70 113/63 08/21/17 09:00 113/63 08/21/17 08:58 117 26 70 08/21/17 08:45 101 26 96 Mechanical Ventilator 70 129/41 08/21/17 08:41 151 08/21/17 08:30 100.0 103 26 132/44 96 Mechanical Ventilator 70 08/21/17 08:15 103 26 132/44 96 Mechanical Ventilator 70 08/21/17 08:09 100.0 08/21/17 08:00 101 26 125/47 96 Mechanical Ventilator 70 08/21/17 08:00 125/47 08/21/17 08:00 70 08/21/17 07:45 110 26 125/47 97 Mechanical Ventilator 70 08/21/17 07:42 112 08/21/17 07:30 100.3 118 26 111/58 97 Mechanical Ventilator 70 08/21/17 07:15 118 26 108/57 97 Mechanical Ventilator 70 08/21/17 07:14 100 26 70 08/21/17 07:00 131 26 130/56 97 Mechanical Ventilator 70 08/21/17 06:30 113 26 123/66 97 Mechanical Ventilator 70 08/21/17 06:00 118 26 112/51 98 Mechanical Ventilator 70 08/21/17 06:00 123/66 08/21/17 05:39 88/47 08/21/17 05:30 148 26 88/47 97 Mechanical Ventilator 70 08/21/17 05:06 108 26 70 08/21/17 05:00 124/63 08/21/17 05:00 111 26 124/63 97 Mechanical Ventilator 70 08/21/17 04:30 124 26 123/67 97 Mechanical Ventilator 70 08/21/17 04:00 70 08/21/17 04:00 110 08/21/17 04:00 98.8 110 26 124/43 96 Mechanical Ventilator 70 08/21/17 04:00 124/43 1/12/18 03:30 144 26 117/54 98 Mechanical Ventilator 70 08/21/17 03:05 115 26 70 08/21/17 03:00 108 26 136/57 98 Mechanical Ventilator 70 08/21/17 03:00 136/57 08/21/17 02:30 100 26 91/33 98 Mechanical Ventilator 70 141/67 08/21/17 02:07 86/47 08/21/17 02:00 86/47 08/21/17 02:00 142 26 86/47 96 Mechanical Ventilator 70 08/21/17 01:30 142 26 62/34 95 Mechanical Ventilator 70 66/45 08/21/17 01:07 141 26 70 08/21/17 01:00 140 26 94/62 97 Mechanical Ventilator 70 93/45 08/21/17 00:30 134 20 93/59 96 Mechanical Ventilator 70 80/47 08/21/17 00:00 105/52 08/21/17 00:00 99.3 140 26 105/52 97 Mechanical Ventilator 70 08/21/17 00:00 140 08/21/17 00:00 70 08/20/17 23:30 140 26 97/52 97 Mechanical Ventilator 70 08/20/17 23:03 140 26 70 08/20/17 23:00 140 26 94/53 97 Mechanical Ventilator 70 08/20/17 23:00 94/43 08/20/17 22:30 139 26 86/54 97 Mechanical Ventilator 70 102/51 08/20/17 22:00 93/43 08/20/17 22:00 139 23 93/43 96 Mechanical Ventilator 70 08/20/17 21:30 143 26 89/58 95 Mechanical Ventilator 70 08/20/17 21:17 146 26 70 08/20/17 21:00 107/53 08/20/17 21:00 84 26 107/53 97 Mechanical Ventilator 70 08/20/17 20:30 84 26 101/52 98 Mechanical Ventilator 70 08/20/17 20:00 83 26 100/51 97 Mechanical Ventilator 70 08/20/17 20:00 83 08/20/17 20:00 70 08/20/17 20:00 100/51 08/20/17 19:30 99.7 82 26 100/54 97 Mechanical Ventilator 70 08/20/17 19:27 111/86 08/20/17 19:12 87 26 70 08/20/17 19:00 86 20 110/57 97 Mechanical Ventilator 70 08/20/17 19:00 110/57 08/20/17 18:45 86 26 113/57 100 Mechanical Ventilator 70 08/20/17 18:30 86 26 111/86 100 Mechanical Ventilator 70 Intake and Output 08/20/17 08/21/17 19:00 07:00 Intake Total 2410.00 ml 1688.75 ml Output Total 40 ml 125 ml Balance 2370.00 ml 1563.75 ml Intake Oral 0 ml 0 ml IV Total 2410.00 ml 1688.75 ml Output Urine Total 40 ml 125 ml Hemodialysis UF 0 ml Laboratory Tests 08/21/17 04:30: White Blood Count 16.2H, Red Blood Count 4.16L, Hemoglobin 9.8L, Hematocrit 32.6L, Mean Corpuscular Volume 79L, Mean Corpuscular Hemoglobin 23.6L, Mean Corpuscular Hemoglobin Concent 30.0L, Red Cell Distribution Width 17.4H, Platelet Count 119L, Mean Platelet Volume 9.1, Neutrophils (%) (Auto) , Lymphocytes (%) (Auto) , Monocytes (%) (Auto) , Eosinophils (%) (Auto) , Basophils (%) (Auto) , Differential Total Cells Counted 100, Neutrophils % ( Manual) 87H, Lymphocytes % (Manual) 9L, Monocytes % (Manual) 2, Eosinophils % ( Manual) 0, Basophils % (Manual) 0, Band Neutrophils 2, Nucleated Red Blood Cells 3, Platelet Estimate DecreasedL, Platelet Morphology Normal, Hypochromasia 2+, Anisocytosis 1+, Microcytosis 1+, Prothrombin Time 20.2H, Prothromb Time International Ratio 1.9H, Activated Partial Thromboplast Time 32 , Sodium Level 137, Potassium Level 3.5, Chloride Level 95L, Carbon Dioxide Level 30, Anion Gap 12, Blood Urea Nitrogen 37H, Creatinine 4.0H, Estimat Glomerular Filtration Rate 13.8, Glucose Level 184H, Lactic Acid Level 2.90H, Uric Acid 7.4H, Calcium Level 7.6L, Phosphorus Level 2.5, Magnesium Level 1.5L, Total Bilirubin 1.9H, Direct Bilirubin 1.1H, Aspartate Amino Transf (AST/SGOT) 2499H, Alanine Aminotransferase (ALT/SGPT) 3863H, Alkaline Phosphatase 86, Total Creatine Kinase 780H, Troponin I 16.427H, C-Reactive Protein, Quantitative 27.5H, Pro-B-Type Natriuretic Peptide 24265R, Total Protein 6.5, Albumin 2.3L, Globulin 4.2, Albumin/Globulin Ratio 0.5L, Digoxin Level 1.4, Hepatitis A IgM Antibody [Pending], Hepatitis B Surface Antigen [Pending], Hepatitis B Core IgM Antibody [Pending], Hepatitis C Antibody [Pending] 08/21/17 11:35: Lactic Acid Level 2.50H, Troponin I 13.077H Height (Feet): 5 Height (Inches): 3.00 Weight (Pounds): 484 Objective General: intubated, sedated, morbid obesity Head: normocephalic, without obvious abnormality, atraumatic Eyes: conjunctivae/corneas clear. PERRL, EOM's intact Throat: lips, mucosa, and tongue normal. MMM Neck: supple, symmetrical, trachea midline, and no JVD Lungs: clear to auscultation bilaterally Heart: regular rate and rhythm, S1, S2 normal, no murmur, click, rub or gallop Abdomen: soft, non-tender, non-distended, bowel sounds normal Extremities: extremities normal, atraumatic, no cyanosis or edema Pulses: 2+ and symmetric Skin: skin color, texture, turgor normal; no rashes or lesions Neurologic: sedated Maryjane Simon M.D. Aug 23, 2017 18:52
[2017-08-23] MEDS: Dyna-Hex 2% Top Sol 2oz TOPIC SCH (20:31)
[2017-08-23] MEDS: Atorvastatin 20mg tab ORAL SCH (21:15)
[2017-08-24] VITALS (25 sets, daily range): BP systolic 89–124; BP diastolic 43–60
[2017-08-24 05:51] LABS: BASOPHILS % (AUTO) 0.4 % (0.0-2.0); EOSINOPHILS % (AUTO) 1.2 % (0.0-3.0); HEMATOCRIT 32.3 % (37.0-47.0); LYMPHOCYTES % (AUTO) 18.9 % (20.0-45.0); MEAN CORPUSCULAR VOLUME 80 FL (80-99); NEUTROPHILS % (AUTO) 68.6 % (45.0-75.0); PLATELET COUNT 116 K/UL (150-450); RED BLOOD COUNT 4.02 M/UL (4.20-5.40); RED CELL DISTRIBUTION WIDTH 18.1 % (11.6-14.8); WHITE BLOOD COUNT 14.9 K/UL (4.8-10.8)
[2017-08-24 06:21] LABS: ALANINE AMINOTRANSFERASE 983 U/L (12-78); ALBUMIN 1.8 G/DL (3.4-5.0); ALBUMIN/GLOBULIN RATIO 0.4 (1.0-2.7); ALKALINE PHOSPHATASE 92 U/L (46-116); ANION GAP 8 mmol/L (5-15); ASPARTATE AMINO TRANSFERASE 176 U/L (15-37); BILIRUBIN,TOTAL 1.2 MG/DL (0.2-1.0); BLOOD UREA NITROGEN 56 mg/dL (7-18); CALCIUM 8.3 MG/DL (8.5-10.1); CARBON DIOXIDE 34 MMOL/L (21-32); CHLORIDE 100 MMOL/L (98-107); CREATININE 3.6 MG/DL (0.55-1.30); POTASSIUM 3.3 MMOL/L (3.5-5.1); SODIUM 142 MMOL/L (136-145)
[2017-08-24] MEDS: NovoLOG Insulin Flexpen SUBQ SCH ×4 (06:25→20:54)
[2017-08-24 06:31] LABS: BILIRUBIN,DIRECT 0.5 MG/DL (0.0-0.3)
[2017-08-24] MEDS ORDERED: Vancomycin 1.5 GM/D5W 250ML IVPB ONE (08:00)
[2017-08-24] MEDS: Pantoprazole Inj IV SCH (08:54)
[2017-08-24] MEDS: Azithromycin 250mg tab ORAL SCH (08:54)
[2017-08-24] MEDS: Aspirin Baby 81mg ORAL SCH (08:55)
[2017-08-24] MEDS: Heparin 5000 units/ml inj SUBQ SCH ×2 (09:12→20:55)
--- NOTE | 2017-08-24 09:16 | Pulmonolgy Critical Care Note ---
Critical Care - Asmt/Plan Problems: (1) Acute respiratory failure with hypoxia and hypercapnia (2) Acute renal failure (ARF) (3) Non-STEMI (non-ST elevated myocardial infarction) (4) Septic shock (5) Acute toxic metabolic encephalopathy (6) DM2 (diabetes mellitus, type 2) (7) Lactic acid acidosis Respiratory: monitor respiratory rate, adjust FIO2, CXR Cardiac: continue to monitor HR/BP Renal: keep IV fluid Infectious Disease: check cultures Gastrointestinal: hold feedings Endocrine: monitor blood sugar, check HgA1C, continue sliding scale insulin Hematologic: transfuse if hgb<8.5 Neurologic: PRN Ativan, keep patient comfortable Affect: PRN ativan Prophylaxis: Protonix Notes Reviewed: cad specialist, 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 with: consultants, special education case managerdelicatessen department manager - Objective Last 24 Hour Vital Signs Date Time Temp Pulse Resp B/P (MAP) Pulse Ox O2 Delivery O2 Flow Rate FiO2 08/24/17 08:00 40 08/24/17 07:10 57 26 80 08/24/17 07:00 58 20 110/51 100 Mechanical Ventilator 40 08/24/17 06:00 66 20 115/50 100 Mechanical Ventilator 40 08/24/17 05:30 57 26 80 08/24/17 05:00 61 20 110/50 100 Mechanical Ventilator 40 08/24/17 04:00 53 08/24/17 04:00 40 08/24/17 04:00 98.4 53 20 115/54 100 Mechanical Ventilator 40 08/24/17 03:30 61 21 80 08/24/17 03:21 70 20 115/54 97 Mechanical Ventilator 40 08/24/17 03:00 51 20 100/50 99 Mechanical Ventilator 40 08/24/17 02:00 58 20 89/45 97 Mechanical Ventilator 40 08/24/17 01:30 60 20 80 08/24/17 01:00 95 20 94/43 97 Mechanical Ventilator 40 08/24/17 00:00 98.2 70 20 115/54 97 Mechanical Ventilator 40 08/24/17 00:00 40 08/23/17 23:26 60 20 80 08/23/17 23:00 58 20 109/52 97 Mechanical Ventilator 40 08/23/17 22:00 62 20 115/53 97 Mechanical Ventilator 40 08/23/17 21:30 60 20 80 08/23/17 21:00 63 20 115/53 97 Mechanical Ventilator 40 08/23/17 20:00 40 08/23/17 20:00 64 08/23/17 20:00 98.6 59 20 114/53 99 Mechanical Ventilator 40 08/23/17 19:30 65 22 80 08/23/17 19:00 62 18 113/52 95 Mechanical Ventilator 40 08/23/17 18:00 64 18 102/50 95 Mechanical Ventilator 40 08/23/17 17:08 66 20 40 08/23/17 17:00 67 20 105/48 95 Mechanical Ventilator 40 08/23/17 16:00 98.3 68 18 113/53 95 Mechanical Ventilator 40 08/23/17 16:00 40 08/23/17 16:00 64 08/23/17 15:08 65 20 40 08/23/17 15:00 64 20 109/53 95 Mechanical Ventilator 40 08/23/17 14:00 70 20 113/50 95 Mechanical Ventilator 40 08/23/17 13:24 76 23 40 08/23/17 13:00 75 21 110/48 95 Mechanical Ventilator 40 08/23/17 12:00 71 08/23/17 12:00 99.3 68 17 108/51 97 Mechanical Ventilator 40 08/23/17 12:00 40 08/23/17 11:00 68 17 93/57 97 Mechanical Ventilator 40 08/23/17 10:58 68 20 40 08/23/17 10:00 70 19 102/46 97 Mechanical Ventilator 40 Status: awake Condition: improving HEENT: atraumatic Neck: full ROM Lungs: clear Heart: HR/BP stable, HR/BP unstable Abdomen: soft, non-tender, active bowel sounds, feeding tube Extremities: no C/C/E, edema Decubiti: location Micro: Microbiology Date/Time Source Procedure Growth Status 08/23/17 03:30 Sputum Gram Stain Pending Resulted 08/23/17 03:30 Sputum Sputum Culture - Preliminary NORMAL UPPER RESPIRATORY YINA AT 24 ... Resulted Accucheck: 167 Critical Care - Subjective ROS Limited/Unobtainable: No ICU Day: 5 Intubation Day: 5 Condition: critical EKG Rhythm: Sinus Rhythm FI02: 40 Vent Support Breath Rate: 26 Vent Support Mode: AC Vent Tidal Volume: 700 Sputum Amount: Small PEEP: 5.0 PIP: 55 Drips: NS 30 cc/hour Tube Feeding Amount: 20 I&O: Intake and Output 08/23/17 08/24/17 19:00 07:00 Intake Total 335 ml 580 ml Output Total 340 ml 250 ml Balance -5 ml 330 ml Free Water 60 ml IV Total 120 ml 360 ml Tube Feeding 140 ml 160 ml Other 75 ml Output Urine Total 340 ml 250 ml # Voids 20 # Bowel Movements 1 CXR: Et in good position, pulmonary edema ET-Tube: 8.0 ET Position: 25 Labs: Laboratory Tests Test 08/24/17 04:00 08/24/17 05:20 Arterial Blood pH 7.583 (7.350-7.450) Arterial Blood Partial Pressure CO2 35.1 mmHg (35.0-45.0) Arterial Blood Partial Pressure O2 73.0 mmHg (75.0-100.0) L Arterial Blood HCO3 32.4 mmol/L (22.0-26.0) H Arterial Blood Oxygen Saturation 94.9 % (92.0-98.0) Arterial Blood Base Excess 10.0 Doroteo Test Positive White Blood Count 14.9 K/UL (4.8-10.8) H Red Blood Count 4.02 M/UL (4.20-5.40) L Hemoglobin 9.0 G/DL (12.0-16.0) L Hematocrit 32.3 % (37.0-47.0) L Mean Corpuscular Volume 80 FL (80-99) Mean Corpuscular Hemoglobin 22.3 PG (27.0-31.0) L Mean Corpuscular Hemoglobin Concent 27.8 G/DL (32.0-36.0) L Red Cell Distribution Width 18.1 % (11.6-14.8) H Platelet Count 116 K/UL (150-450) L Mean Platelet Volume 9.7 FL (6.5-10.1) Neutrophils (%) (Auto) 68.6 % (45.0-75.0) Lymphocytes (%) (Auto) 18.9 % (20.0-45.0) L Monocytes (%) (Auto) 11.0 % (1.0-10.0) H Eosinophils (%) (Auto) 1.2 % (0.0-3.0) Basophils (%) (Auto) 0.4 % (0.0-2.0) Sodium Level 142 MMOL/L (136-145) Potassium Level 3.3 MMOL/L (3.5-5.1) L Chloride Level 100 MMOL/L (98-107) Carbon Dioxide Level 34 MMOL/L (21-32) H Anion Gap 8 mmol/L (5-15) Blood Urea Nitrogen 56 mg/dL (7-18) H Creatinine 3.6 MG/DL (0.55-1.30) H Estimat Glomerular Filtration Rate 15.6 mL/min (>60) Glucose Level 151 MG/DL (74-106) H Uric Acid 8.4 MG/DL (2.6-7.2) H Calcium Level 8.3 MG/DL (8.5-10.1) L Phosphorus Level 3.0 MG/DL (2.5-4.9) Magnesium Level 2.0 MG/DL (1.8-2.4) Total Bilirubin 1.2 MG/DL (0.2-1.0) H Direct Bilirubin 0.5 MG/DL (0.0-0.3) H Aspartate Amino Transf (AST/SGOT) 176 U/L (15-37) H Alanine Aminotransferase (ALT/SGPT) 983 U/L (12-78) H Alkaline Phosphatase 92 U/L (46-116) Troponin I 1.905 ng/mL (0.000-0.056) Pro-B-Type Natriuretic Peptide 1664 pg/mL (0-125) H Total Protein 6.5 G/DL (6.4-8.2) Albumin 1.8 G/DL (3.4-5.0) L Globulin 4.7 g/dL Albumin/Globulin Ratio 0.4 (1.0-2.7) L Random Vancomycin Level 13.6 ug/mL DOMONIQUE DOBBS Aug 24, 2017 09:16
[2017-08-24] MEDS ORDERED: Potassium Chloride 40 MEQ in Sodium Chloride 500ML 550 ML IVPB ONE (10:30)
--- NOTE | 2017-08-24 10:34 | Nephrology Progress Note ---
Assessment/Plan Problem List: (1) Acute renal failure (ARF) (2) Acute respiratory acidosis (3) Lactic acid acidosis (4) Septic shock (5) Acute respiratory failure with hypoxia and hypercapnia (6) Elevated troponin I level Assessment acute renal failure, Cr leveling Hyperkalemia resolved sepsis, high Lactic , acidosis low BP resp failure obese rapid rise in Troponin- now on way down Plan dialysed 08/19 redialysed 08/22 Hold dialysis for now per cardiology and ID and pulm discussed with ID monitor renal parameters and dialysis as needed Subjective ROS Limited/Unobtainable: Yes Objective Objective Last 24 Hour Vital Signs Date Time Temp Pulse Resp B/P (MAP) Pulse Ox O2 Delivery O2 Flow Rate FiO2 08/24/17 09:37 59 26 80 08/24/17 08:00 40 08/24/17 07:10 57 26 80 08/24/17 07:00 58 20 110/51 100 Mechanical Ventilator 40 08/24/17 06:00 66 20 115/50 100 Mechanical Ventilator 40 08/24/17 05:30 57 26 80 08/24/17 05:00 61 20 110/50 100 Mechanical Ventilator 40 08/24/17 04:00 53 08/24/17 04:00 40 08/24/17 04:00 98.4 53 20 115/54 100 Mechanical Ventilator 40 08/24/17 03:30 61 21 80 08/24/17 03:21 70 20 115/54 97 Mechanical Ventilator 40 08/24/17 03:00 51 20 100/50 99 Mechanical Ventilator 40 08/24/17 02:00 58 20 89/45 97 Mechanical Ventilator 40 08/24/17 01:30 60 20 80 08/24/17 01:00 95 20 94/43 97 Mechanical Ventilator 40 08/24/17 00:00 98.2 70 20 115/54 97 Mechanical Ventilator 40 08/24/17 00:00 40 08/23/17 23:26 60 20 80 08/23/17 23:00 58 20 109/52 97 Mechanical Ventilator 40 08/23/17 22:00 62 20 115/53 97 Mechanical Ventilator 40 08/23/17 21:30 60 20 80 08/23/17 21:00 63 20 115/53 97 Mechanical Ventilator 40 08/23/17 20:00 40 08/23/17 20:00 64 08/23/17 20:00 98.6 59 20 114/53 99 Mechanical Ventilator 40 08/23/17 19:30 65 22 80 08/23/17 19:00 62 18 113/52 95 Mechanical Ventilator 40 08/23/17 18:00 64 18 102/50 95 Mechanical Ventilator 40 08/23/17 17:08 66 20 40 08/23/17 17:00 67 20 105/48 95 Mechanical Ventilator 40 08/23/17 16:00 98.3 68 18 113/53 95 Mechanical Ventilator 40 08/23/17 16:00 40 08/23/17 16:00 64 08/23/17 15:08 65 20 40 08/23/17 15:00 64 20 109/53 95 Mechanical Ventilator 40 08/23/17 14:00 70 20 113/50 95 Mechanical Ventilator 40 08/23/17 13:24 76 23 40 08/23/17 13:00 75 21 110/48 95 Mechanical Ventilator 40 08/23/17 12:00 71 08/23/17 12:00 99.3 68 17 108/51 97 Mechanical Ventilator 40 08/23/17 12:00 40 08/23/17 11:00 68 17 93/57 97 Mechanical Ventilator 40 08/23/17 10:58 68 20 40 Intake and Output 08/23/17 08/24/17 19:00 07:00 Intake Total 335 ml 580 ml Output Total 340 ml 250 ml Balance -5 ml 330 ml Free Water 60 ml IV Total 120 ml 360 ml Tube Feeding 140 ml 160 ml Other 75 ml Output Urine Total 340 ml 250 ml # Voids 20 # Bowel Movements 1 Laboratory Tests 08/24/17 04:00: Arterial Blood pH 7.583*H, Arterial Blood Partial Pressure CO2 35.1, Arterial Blood Partial Pressure O2 73.0L, Arterial Blood HCO3 32.4H, Arterial Blood Oxygen Saturation 94.9, Arterial Blood Base Excess 10.0, Doroteo Test Positive 08/24/17 05:20: White Blood Count 14.9H, Red Blood Count 4.02L, Hemoglobin 9.0L, Hematocrit 32.3L, Mean Corpuscular Volume 80, Mean Corpuscular Hemoglobin 22.3L, Mean Corpuscular Hemoglobin Concent 27.8L, Red Cell Distribution Width 18.1H, Platelet Count 116L, Mean Platelet Volume 9.7, Neutrophils (%) (Auto) 68.6, Lymphocytes (%) (Auto) 18.9L, Monocytes (%) (Auto) 11.0H, Eosinophils (%) (Auto ) 1.2, Basophils (%) (Auto) 0.4, Sodium Level 142, Potassium Level 3.3L, Chloride Level 100, Carbon Dioxide Level 34H, Anion Gap 8, Blood Urea Nitrogen 56H, Creatinine 3.6H, Estimat Glomerular Filtration Rate 15.6, Glucose Level 151H, Uric Acid 8.4H, Calcium Level 8.3L, Phosphorus Level 3.0, Magnesium Level 2.0, Total Bilirubin 1.2H, Direct Bilirubin 0.5H, Aspartate Amino Transf (AST/ SGOT) 176H, Alanine Aminotransferase (ALT/SGPT) 983H, Alkaline Phosphatase 92, Troponin I 1.905H, Pro-B-Type Natriuretic Peptide 1664H, Total Protein 6.5, Albumin 1.8L, Globulin 4.7, Albumin/Globulin Ratio 0.4L, Random Vancomycin Level 13.6 Height (Feet): 5 Height (Inches): 3.00 Weight (Pounds): 490 AGUSTIN CONTRERAS Aug 24, 2017 10:34
--- NOTE | 2017-08-24 11:14 | Cardiology Report ---
APPROVED REPORT EXAM: Two-dimensional and M-mode echocardiogram with Doppler and color Doppler. INDICATION Atrial Fibrillation M-Mode DIMENSIONS IVSd2.3 (0.7-1.1cm)Left Atrium (MM)3.4 (1.6-4.0cm) LVDd3.6 (3.5-5.6cm)Aortic Root3.9 (2.0-3.7cm) PWd2.0 (0.7-1.1cm)Aortic Cusp Exc.1.6 (1.5-2.0cm) IVSs2.7 cm LVDs2.1 (2.5-4.0cm) PWs2.0 cm Technically difficult study due to poor acoustical windows. Normal left ventricular chamber size, systolic function and wall motion to extent visualized. Left ventricular ejection fraction estimated to be 70%. Moderate left ventricular hypertrophy by 2-D. No evidence of pericardial effusion . All other cardiac chamber size are within normal limits . Focal aortic valve sclerosis with adequate cusp excursion. Mild Thickened mitral valve leaflets with normal excursion. Mild Mitral annulus and aortic root calcification. Pulmonic valve not well visualized. Normal tricuspid valve structure. IVC at normal size with physiologic collapse. A color flow and spectral Doppler study was performed and revealed: No aortic regurgitation. Mild mitral regurgitation. Mitral diastolic velocities suggest reduced left ventricular relaxation c/w mild LV diastolic dysfunction (Grade I ). Mild tricuspid regurgitation. Tricuspid systolic velocities suggests peak right ventricular systolic pressure of 45mmHg, consistent with moderate pulmonary hypertension. No Pulmonic regurgitation present.
--- NOTE | 2017-08-24 12:17 | Cardiac Electrophysiology PN ---
Assessment/Plan Assessment/Plan 1. Non-ST elevation myocardial infarction. Trop peak 16.4, down to 1.9. Echocardiogram EF 75%. No chest pain On Aspirin, Lipitor and add Lopressor 12.5 bid 2. Recurrent SVT at rate 200 bpm. Did not terminated with 6 or 12 of adenosine but converted with the second dose of digoxin. Start Lopressor 12.5 bid and Digoxin. Dig level 1.4 3. Respiratory failure, on the ventilator. 4. Accelerated Junctional rhythm. No further, Watch on Lopressor 5. S/P Septic shock. The patient is on broad-spectrum intravenous antibiotic and off pressors 6. Morbid obesity 484 Lbs. 7. Severe hyperkalemia, potassium was 7.8 and went down to 5 after HD No further HD. actually hypokalemic today. ROLLY RN Subjective Subjective No further SVT . In ICU on vent and alert. Off pressors. RN at bedside..Couldn' t tolerate weaning Objective Last 24 Hour Vital Signs Date Time Temp Pulse Resp B/P (MAP) Pulse Ox O2 Delivery O2 Flow Rate FiO2 08/24/17 10:47 60 21 80 08/24/17 09:37 59 26 80 08/24/17 08:00 40 08/24/17 07:10 57 26 80 08/24/17 07:00 58 20 110/51 100 Mechanical Ventilator 40 08/24/17 06:00 66 20 115/50 100 Mechanical Ventilator 40 08/24/17 05:30 57 26 80 08/24/17 05:00 61 20 110/50 100 Mechanical Ventilator 40 08/24/17 04:00 53 08/24/17 04:00 40 08/24/17 04:00 98.4 53 20 115/54 100 Mechanical Ventilator 40 08/24/17 03:30 61 21 80 08/24/17 03:21 70 20 115/54 97 Mechanical Ventilator 40 08/24/17 03:00 51 20 100/50 99 Mechanical Ventilator 40 08/24/17 02:00 58 20 89/45 97 Mechanical Ventilator 40 08/24/17 01:30 60 20 80 08/24/17 01:00 95 20 94/43 97 Mechanical Ventilator 40 08/24/17 00:00 98.2 70 20 115/54 97 Mechanical Ventilator 40 08/24/17 00:00 40 08/23/17 23:26 60 20 80 08/23/17 23:00 58 20 109/52 97 Mechanical Ventilator 40 08/23/17 22:00 62 20 115/53 97 Mechanical Ventilator 40 08/23/17 21:30 60 20 80 08/23/17 21:00 63 20 115/53 97 Mechanical Ventilator 40 08/23/17 20:00 40 08/23/17 20:00 64 08/23/17 20:00 98.6 59 20 114/53 99 Mechanical Ventilator 40 08/23/17 19:30 65 22 80 08/23/17 19:00 62 18 113/52 95 Mechanical Ventilator 40 08/23/17 18:00 64 18 102/50 95 Mechanical Ventilator 40 08/23/17 17:08 66 20 40 08/23/17 17:00 67 20 105/48 95 Mechanical Ventilator 40 08/23/17 16:00 98.3 68 18 113/53 95 Mechanical Ventilator 40 08/23/17 16:00 40 08/23/17 16:00 64 08/23/17 15:08 65 20 40 08/23/17 15:00 64 20 109/53 95 Mechanical Ventilator 40 08/23/17 14:00 70 20 113/50 95 Mechanical Ventilator 40 08/23/17 13:24 76 23 40 08/23/17 13:00 75 21 110/48 95 Mechanical Ventilator 40 Intake and Output 08/23/17 08/24/17 19:00 07:00 Intake Total 335 ml 580 ml Output Total 340 ml 250 ml Balance -5 ml 330 ml Free Water 60 ml IV Total 120 ml 360 ml Tube Feeding 140 ml 160 ml Other 75 ml Output Urine Total 340 ml 250 ml # Voids 20 # Bowel Movements 1 Laboratory Tests Test 08/24/17 04:00 08/24/17 05:20 Arterial Blood pH 7.583 (7.350-7.450) Arterial Blood Partial Pressure CO2 35.1 mmHg (35.0-45.0) Arterial Blood Partial Pressure O2 73.0 mmHg (75.0-100.0) L Arterial Blood HCO3 32.4 mmol/L (22.0-26.0) H Arterial Blood Oxygen Saturation 94.9 % (92.0-98.0) Arterial Blood Base Excess 10.0 Doroteo Test Positive White Blood Count 14.9 K/UL (4.8-10.8) H Red Blood Count 4.02 M/UL (4.20-5.40) L Hemoglobin 9.0 G/DL (12.0-16.0) L Hematocrit 32.3 % (37.0-47.0) L Mean Corpuscular Volume 80 FL (80-99) Mean Corpuscular Hemoglobin 22.3 PG (27.0-31.0) L Mean Corpuscular Hemoglobin Concent 27.8 G/DL (32.0-36.0) L Red Cell Distribution Width 18.1 % (11.6-14.8) H Platelet Count 116 K/UL (150-450) L Mean Platelet Volume 9.7 FL (6.5-10.1) Neutrophils (%) (Auto) 68.6 % (45.0-75.0) Lymphocytes (%) (Auto) 18.9 % (20.0-45.0) L Monocytes (%) (Auto) 11.0 % (1.0-10.0) H Eosinophils (%) (Auto) 1.2 % (0.0-3.0) Basophils (%) (Auto) 0.4 % (0.0-2.0) Sodium Level 142 MMOL/L (136-145) Potassium Level 3.3 MMOL/L (3.5-5.1) L Chloride Level 100 MMOL/L (98-107) Carbon Dioxide Level 34 MMOL/L (21-32) H Anion Gap 8 mmol/L (5-15) Blood Urea Nitrogen 56 mg/dL (7-18) H Creatinine 3.6 MG/DL (0.55-1.30) H Estimat Glomerular Filtration Rate 15.6 mL/min (>60) Glucose Level 151 MG/DL (74-106) H Uric Acid 8.4 MG/DL (2.6-7.2) H Calcium Level 8.3 MG/DL (8.5-10.1) L Phosphorus Level 3.0 MG/DL (2.5-4.9) Magnesium Level 2.0 MG/DL (1.8-2.4) Total Bilirubin 1.2 MG/DL (0.2-1.0) H Direct Bilirubin 0.5 MG/DL (0.0-0.3) H Aspartate Amino Transf (AST/SGOT) 176 U/L (15-37) H Alanine Aminotransferase (ALT/SGPT) 983 U/L (12-78) H Alkaline Phosphatase 92 U/L (46-116) Troponin I 1.905 ng/mL (0.000-0.056) Pro-B-Type Natriuretic Peptide 1664 pg/mL (0-125) H Total Protein 6.5 G/DL (6.4-8.2) Albumin 1.8 G/DL (3.4-5.0) L Globulin 4.7 g/dL Albumin/Globulin Ratio 0.4 (1.0-2.7) L Random Vancomycin Level 13.6 ug/mL Microbiology Date/Time Source Procedure Growth Status 08/23/17 03:30 Sputum Gram Stain - Final Resulted 08/23/17 03:30 Sputum Sputum Culture - Preliminary NORMAL UPPER RESPIRATORY YINA AT 24 ... Resulted Objective HEENT: Orally intubated with OG tube. LUNGS: Decreased breath sounds.Orally intubated CARDIOVASCULAR: Regular S1 and S2 with no gallop. ABDOMEN: Morbidly obese. EXTREMITIES: 2+ pitting edema. DIANDRA CUMMINGS Aug 24, 2017 12:17
--- NOTE | 2017-08-24 13:56 | GI Progress Note ---
Assessment/Plan Problems: (1) Shock liver ICD Codes: K72.00 - Acute and subacute hepatic failure without coma SNOMED: 180320808 (2) Anemia ICD Codes: D64.9 - Anemia, unspecified SNOMED: 107016316 (3) Morbid obesity ICD Codes: E66.01 - Morbid (severe) obesity due to excess calories SNOMED: 589832631, 23902216463805 (4) Multiple organ failure SNOMED: 23754261 (5) Transaminitis ICD Codes: R74.0 - Nonspecific elevation of levels of transaminase and lactic acid dehydrogenase [LDH] SNOMED: 021608639, 024943006 (6) Septic shock ICD Codes: A41.9 - Sepsis, unspecified organism; R65.21 - Severe sepsis with septic shock SNOMED: 97288336 (7) DM2 (diabetes mellitus, type 2) ICD Codes: E11.9 - Type 2 diabetes mellitus without complications SNOMED: 01754275 (8) GERD (gastroesophageal reflux disease) ICD Codes: K21.9 - Gastro-esophageal reflux disease without esophagitis SNOMED: 121894981 Status: progressing Status Narrative Discussed with Dr. Cordero. Assessment/Plan defer GI procedures at this time Continue NGT feeds If pain persists, would check CT abd/pelvis in am transaminitis due to shock liver >> trend anemia work up OB stool r/o GI bleed monitor H&H, prn transfusions ppi abx fu labs Subjective Subjective limited Objective Last 24 Hour Vital Signs Date Time Temp Pulse Resp B/P (MAP) Pulse Ox O2 Delivery O2 Flow Rate FiO2 08/24/17 13:06 65 20 80 08/24/17 13:00 63 17 111/58 100 Mechanical Ventilator 40 08/24/17 12:00 98.0 66 16 113/56 100 Mechanical Ventilator 40 08/24/17 12:00 40 08/24/17 11:00 63 18 117/54 100 Mechanical Ventilator 40 08/24/17 10:47 60 21 80 08/24/17 10:00 56 20 117/55 100 Mechanical Ventilator 40 08/24/17 09:37 59 26 80 08/24/17 09:00 59 19 103/53 100 Mechanical Ventilator 40 08/24/17 08:00 40 08/24/17 08:00 99.5 58 25 111/54 100 Mechanical Ventilator 40 08/24/17 07:10 57 26 80 08/24/17 07:00 58 20 110/51 100 Mechanical Ventilator 40 08/24/17 06:00 66 20 115/50 100 Mechanical Ventilator 40 08/24/17 05:30 57 26 80 08/24/17 05:00 61 20 110/50 100 Mechanical Ventilator 40 08/24/17 04:00 53 08/24/17 04:00 40 08/24/17 04:00 98.4 53 20 115/54 100 Mechanical Ventilator 40 08/24/17 03:30 61 21 80 08/24/17 03:21 70 20 115/54 97 Mechanical Ventilator 40 08/24/17 03:00 51 20 100/50 99 Mechanical Ventilator 40 08/24/17 02:00 58 20 89/45 97 Mechanical Ventilator 40 08/24/17 01:30 60 20 80 08/24/17 01:00 95 20 94/43 97 Mechanical Ventilator 40 08/24/17 00:00 98.2 70 20 115/54 97 Mechanical Ventilator 40 08/24/17 00:00 40 08/23/17 23:26 60 20 80 08/23/17 23:00 58 20 109/52 97 Mechanical Ventilator 40 08/23/17 22:00 62 20 115/53 97 Mechanical Ventilator 40 08/23/17 21:30 60 20 80 08/23/17 21:00 63 20 115/53 97 Mechanical Ventilator 40 08/23/17 20:00 40 08/23/17 20:00 64 08/23/17 20:00 98.6 59 20 114/53 99 Mechanical Ventilator 40 08/23/17 19:30 65 22 80 08/23/17 19:00 62 18 113/52 95 Mechanical Ventilator 40 08/23/17 18:00 64 18 102/50 95 Mechanical Ventilator 40 08/23/17 17:08 66 20 40 08/23/17 17:00 67 20 105/48 95 Mechanical Ventilator 40 08/23/17 16:00 98.3 68 18 113/53 95 Mechanical Ventilator 40 08/23/17 16:00 40 08/23/17 16:00 64 08/23/17 15:08 65 20 40 08/23/17 15:00 64 20 109/53 95 Mechanical Ventilator 40 08/23/17 14:00 70 20 113/50 95 Mechanical Ventilator 40 Intake and Output 08/23/17 08/24/17 19:00 07:00 Intake Total 335 ml 580 ml Output Total 340 ml 250 ml Balance -5 ml 330 ml Free Water 60 ml IV Total 120 ml 360 ml Tube Feeding 140 ml 160 ml Other 75 ml Output Urine Total 340 ml 250 ml # Voids 20 # Bowel Movements 1 Laboratory Tests Test 08/24/17 04:00 08/24/17 05:20 Arterial Blood pH 7.583 (7.350-7.450) Arterial Blood Partial Pressure CO2 35.1 mmHg (35.0-45.0) Arterial Blood Partial Pressure O2 73.0 mmHg (75.0-100.0) L Arterial Blood HCO3 32.4 mmol/L (22.0-26.0) H Arterial Blood Oxygen Saturation 94.9 % (92.0-98.0) Arterial Blood Base Excess 10.0 Doroteo Test Positive White Blood Count 14.9 K/UL (4.8-10.8) H Red Blood Count 4.02 M/UL (4.20-5.40) L Hemoglobin 9.0 G/DL (12.0-16.0) L Hematocrit 32.3 % (37.0-47.0) L Mean Corpuscular Volume 80 FL (80-99) Mean Corpuscular Hemoglobin 22.3 PG (27.0-31.0) L Mean Corpuscular Hemoglobin Concent 27.8 G/DL (32.0-36.0) L Red Cell Distribution Width 18.1 % (11.6-14.8) H Platelet Count 116 K/UL (150-450) L Mean Platelet Volume 9.7 FL (6.5-10.1) Neutrophils (%) (Auto) 68.6 % (45.0-75.0) Lymphocytes (%) (Auto) 18.9 % (20.0-45.0) L Monocytes (%) (Auto) 11.0 % (1.0-10.0) H Eosinophils (%) (Auto) 1.2 % (0.0-3.0) Basophils (%) (Auto) 0.4 % (0.0-2.0) Sodium Level 142 MMOL/L (136-145) Potassium Level 3.3 MMOL/L (3.5-5.1) L Chloride Level 100 MMOL/L (98-107) Carbon Dioxide Level 34 MMOL/L (21-32) H Anion Gap 8 mmol/L (5-15) Blood Urea Nitrogen 56 mg/dL (7-18) H Creatinine 3.6 MG/DL (0.55-1.30) H Estimat Glomerular Filtration Rate 15.6 mL/min (>60) Glucose Level 151 MG/DL (74-106) H Uric Acid 8.4 MG/DL (2.6-7.2) H Calcium Level 8.3 MG/DL (8.5-10.1) L Phosphorus Level 3.0 MG/DL (2.5-4.9) Magnesium Level 2.0 MG/DL (1.8-2.4) Total Bilirubin 1.2 MG/DL (0.2-1.0) H Direct Bilirubin 0.5 MG/DL (0.0-0.3) H Aspartate Amino Transf (AST/SGOT) 176 U/L (15-37) H Alanine Aminotransferase (ALT/SGPT) 983 U/L (12-78) H Alkaline Phosphatase 92 U/L (46-116) Troponin I 1.905 ng/mL (0.000-0.056) Pro-B-Type Natriuretic Peptide 1664 pg/mL (0-125) H Total Protein 6.5 G/DL (6.4-8.2) Albumin 1.8 G/DL (3.4-5.0) L Globulin 4.7 g/dL Albumin/Globulin Ratio 0.4 (1.0-2.7) L Random Vancomycin Level 13.6 ug/mL Height (Feet): 5 Height (Inches): 3.00 Weight (Pounds): 490 General Appearance: WD/WN, no apparent distress, alert, morbidly obese Cardiovascular: normal rate Respiratory/Chest: normal breath sounds, no respiratory distress, other - mech vent Abdominal Exam: normal bowel sounds, non tender, soft, other - NGT Extremities: non-tender Caren Nixon N.P. Aug 24, 2017 13:56
--- NOTE | 2017-08-24 15:11 | General Progress Note ---
Assessment/Plan Problem List: (1) SVT (supraventricular tachycardia) ICD Codes: I47.1 - Supraventricular tachycardia SNOMED: 6247677 (2) Acute respiratory failure with hypoxia and hypercapnia ICD Codes: J96.01 - Acute respiratory failure with hypoxia; J96.02 - Acute respiratory failure with hypercapnia SNOMED: 99775648, 19329689, 696336633 (3) Septic shock ICD Codes: A41.9 - Sepsis, unspecified organism; R65.21 - Severe sepsis with septic shock SNOMED: 75598468 (4) KASHIF (acute kidney injury) ICD Codes: N17.9 - Acute kidney failure, unspecified SNOMED: 04654378 (5) Lactic acid acidosis ICD Codes: E87.2 - Acidosis SNOMED: 32446340 (6) Hyperkalemia ICD Codes: E87.5 - Hyperkalemia; J96.02 - Acute respiratory failure with hypercapnia SNOMED: 34406841, 47310182, 768056660 (7) Acute toxic metabolic encephalopathy (8) Shock liver ICD Codes: K72.00 - Acute and subacute hepatic failure without coma SNOMED: 380573085 (9) Non-STEMI (non-ST elevated myocardial infarction) ICD Codes: I21.4 - Non-ST elevation (NSTEMI) myocardial infarction; J96.02 - Acute respiratory failure with hypercapnia SNOMED: 788038024, 45934904, 443634932 (10) DM2 (diabetes mellitus, type 2) ICD Codes: E11.9 - Type 2 diabetes mellitus without complications SNOMED: 19723739 (11) Asthma ICD Codes: J45.909 - Unspecified asthma, uncomplicated SNOMED: 268732460 (12) GERD (gastroesophageal reflux disease) ICD Codes: K21.9 - Gastro-esophageal reflux disease without esophagitis SNOMED: 324379011 Status: stable Assessment/Plan Cont ICU care Pulmonology, Nephrology, GI, ID, Cardiology consulted Empiric vanco, meropenem and azithro per ID F/u cultures Cont on vent and wean as tolerated Daily SBTs, sedation holiday Now off presors Arterial line placed 08/20/17 Trend lactate--downtrending Trend trop/EKG--downtrending ASA, statin Check ECHO--EF 70% Started on digoxin and MTP per cardiology HD on hold per renal as Cr improving. Last HD 08/22. Trend BMP closely s/p mucomyst IV for shock liver/hepatitis per GI Trend LFTs--downtrending Cont tube feeds via NGT PPI Pain control, supportive care, bowel regimen DVT Prophylaxis: HSQ Code Status: Full Hospital Classification Declaration: Based on this initial evaluation, and depending on the patient's clinical course, I anticipate that this patient will require hospitalization for 4-5 days for acute respiratory failure, septic shock and close respiratory/hemodynamic monitoring. At the time of my involvement, the patient's condition was critical with high potential for and/or physiologic deterioration secondary to acute respiratory failure, septic shock, shock liver, KASHIF as delineated in the note above. On the above date of service, I spent a total of 37 minutes in the ICU evaluating, managing, and providing critical care services to this patient, including time spent documenting these activities, counseling patient/family, and coordinating care. Critical care services performed include: Telemetry Review Hemodynamic measurement interpretation Laboratory data review and interpretation Ventilator setting review, management, and adjustment Discussion of care plans with patient, family, and/or surrogate decision makers Discussion of patient's care with primary medical team, surgical team, and/or consulting service Decision to obtain further radiologic evaluation, after consideration of risk/ benefit ratio Decision to perform invasive procedure, after consideration of risk/benefit ratio Review of most recent microbiology results with assessment and modification of antimicrobial coverage Discussion of patient's code status and further advancement towards the ultimate goals of care Plan outlined above discussed with patient/family, LINEMAN A CLASS, ICU team, and involved physicians/consultants. D/w ID re abx. D/w pulm re SBT. D/w renal re need for HD. Time of note may not reflect time of encounter. Subjective Date patient seen: Aug 24, 2017 Time patient seen: 14:00 ROS Limited/Unobtainable: No Constitutional: Reports: no symptoms HEENT: Reports: no symptoms Cardiovascular: Reports: no symptoms Respiratory: Reports: no symptoms Gastrointestinal/Abdominal: Reports: no symptoms Genitourinary: Reports: no symptoms Neurologic/Psychiatric: Reports: no symptoms Endocrine: Reports: no symptoms Hematologic/Lymphatic: Reports: no symptoms Allergies: Coded Allergies: No Known Allergies (Unverified , 06/01/17) All Systems: reviewed and negative except above Subjective No acute o/n events Off pressors now On SBT this AM but became tachycardic, back on vent Pt intubated, awake, alert, responding/asking questions by writing Denies pain Objective Last 24 Hour Vital Signs Date Time Temp Pulse Resp B/P (MAP) Pulse Ox O2 Delivery O2 Flow Rate FiO2 08/24/17 15:00 63 20 112/59 100 Mechanical Ventilator 40 08/24/17 14:00 67 20 102/54 100 Mechanical Ventilator 40 08/24/17 13:06 65 20 80 08/24/17 13:00 63 17 111/58 100 Mechanical Ventilator 40 08/24/17 12:00 68 08/24/17 12:00 98.0 66 16 113/56 100 Mechanical Ventilator 40 08/24/17 12:00 40 08/24/17 11:00 63 18 117/54 100 Mechanical Ventilator 40 08/24/17 10:47 60 21 80 08/24/17 10:00 56 20 117/55 100 Mechanical Ventilator 40 08/24/17 09:37 59 26 80 08/24/17 09:00 59 19 103/53 100 Mechanical Ventilator 40 08/24/17 08:00 40 08/24/17 08:00 52 08/24/17 08:00 99.5 58 25 111/54 100 Mechanical Ventilator 40 08/24/17 07:10 57 26 80 08/24/17 07:00 58 20 110/51 100 Mechanical Ventilator 40 08/24/17 06:00 66 20 115/50 100 Mechanical Ventilator 40 08/24/17 05:30 57 26 80 08/24/17 05:00 61 20 110/50 100 Mechanical Ventilator 40 08/24/17 04:00 53 08/24/17 04:00 40 08/24/17 04:00 98.4 53 20 115/54 100 Mechanical Ventilator 40 08/24/17 03:30 61 21 80 08/24/17 03:21 70 20 115/54 97 Mechanical Ventilator 40 08/24/17 03:00 51 20 100/50 99 Mechanical Ventilator 40 08/24/17 02:00 58 20 89/45 97 Mechanical Ventilator 40 08/24/17 01:30 60 20 80 08/24/17 01:00 95 20 94/43 97 Mechanical Ventilator 40 08/24/17 00:00 98.2 70 20 115/54 97 Mechanical Ventilator 40 1/15/18 00:00 40 08/23/17 23:26 60 20 80 08/23/17 23:00 58 20 109/52 97 Mechanical Ventilator 40 08/23/17 22:00 62 20 115/53 97 Mechanical Ventilator 40 08/23/17 21:30 60 20 80 08/23/17 21:00 63 20 115/53 97 Mechanical Ventilator 40 08/23/17 20:00 40 08/23/17 20:00 64 08/23/17 20:00 98.6 59 20 114/53 99 Mechanical Ventilator 40 08/23/17 19:30 65 22 80 08/23/17 19:00 62 18 113/52 95 Mechanical Ventilator 40 08/23/17 18:00 64 18 102/50 95 Mechanical Ventilator 40 08/23/17 17:08 66 20 40 08/23/17 17:00 67 20 105/48 95 Mechanical Ventilator 40 08/23/17 16:00 98.3 68 18 113/53 95 Mechanical Ventilator 40 08/23/17 16:00 40 08/23/17 16:00 64 Intake and Output 08/23/17 08/24/17 18:59 06:59 Intake Total 315 ml 570 ml Output Total 315 ml 275 ml Balance 0 ml 295 ml Free Water 60 ml IV Total 120 ml 330 ml Tube Feeding 120 ml 180 ml Other 75 ml Output Urine Total 315 ml 275 ml # Voids 20 # Bowel Movements 1 Laboratory Tests 08/24/17 04:00: Arterial Blood pH 7.583*H, Arterial Blood Partial Pressure CO2 35.1, Arterial Blood Partial Pressure O2 73.0L, Arterial Blood HCO3 32.4H, Arterial Blood Oxygen Saturation 94.9, Arterial Blood Base Excess 10.0, Doroteo Test Positive 08/24/17 05:20: White Blood Count 14.9H, Red Blood Count 4.02L, Hemoglobin 9.0L, Hematocrit 32.3L, Mean Corpuscular Volume 80, Mean Corpuscular Hemoglobin 22.3L, Mean Corpuscular Hemoglobin Concent 27.8L, Red Cell Distribution Width 18.1H, Platelet Count 116L, Mean Platelet Volume 9.7, Neutrophils (%) (Auto) 68.6, Lymphocytes (%) (Auto) 18.9L, Monocytes (%) (Auto) 11.0H, Eosinophils (%) (Auto ) 1.2, Basophils (%) (Auto) 0.4, Sodium Level 142, Potassium Level 3.3L, Chloride Level 100, Carbon Dioxide Level 34H, Anion Gap 8, Blood Urea Nitrogen 56H, Creatinine 3.6H, Estimat Glomerular Filtration Rate 15.6, Glucose Level 151H, Uric Acid 8.4H, Calcium Level 8.3L, Phosphorus Level 3.0, Magnesium Level 2.0, Total Bilirubin 1.2H, Direct Bilirubin 0.5H, Aspartate Amino Transf (AST/ SGOT) 176H, Alanine Aminotransferase (ALT/SGPT) 983H, Alkaline Phosphatase 92, Troponin I 1.905H, Pro-B-Type Natriuretic Peptide 1664H, Total Protein 6.5, Albumin 1.8L, Globulin 4.7, Albumin/Globulin Ratio 0.4L, Random Vancomycin Level 13.6 Height (Feet): 5 Height (Inches): 3.00 Weight (Pounds): 490 Objective General: intubated, sedated, morbid obesity Head: normocephalic, without obvious abnormality, atraumatic Eyes: conjunctivae/corneas clear. PERRL, EOM's intact Throat: lips, mucosa, and tongue normal. MMM Neck: supple, symmetrical, trachea midline, and no JVD Lungs: clear to auscultation bilaterally Heart: regular rate and rhythm, S1, S2 normal, no murmur, click, rub or gallop Abdomen: soft, non-tender, non-distended, bowel sounds normal Extremities: extremities normal, atraumatic, no cyanosis or edema Pulses: 2+ and symmetric Skin: skin color, texture, turgor normal; no rashes or lesions Neurologic: sedated Cassie Bolivar M.D. Aug 24, 2017 15:11
[2017-08-24] MEDS: Meropenem 500 MG in NS 55 ML IVPB SCH (17:52)
--- NOTE | 2017-08-24 19:35 | Infectious Diseases Prog Note ---
Assessment/Plan Assessment/Plan ASSESSMENT AND PLAN: 1. sepsis, shock, ? cap, ? HCAP/aspiration pna, fevers, leukocytosis, influenza negative - clinically better, less pressors, less fio2, weaning, fevers resolved, leukocytosis better - chest x-ray worse, sputum culture negative but on abx, mycoplasma and legionella pending - vancomycin and meropenem, and azithromycin for now - check sc, serology, labs and chest x-ray - icu care, weaning, supportive care 2. Acute kidney injury, on hemodialysis. 3. Elevated liver enzymes, likely shock liver. Check hepatitis panel. 4. Anemia. 5. Hypertension. 6. Diabetes. 7. Gastroesophageal reflux disease. 8. Morbid obesity. 9. Shortness of breath. 10. Hypoxia. 11. Respiratory failure. 12. On ventilator. 13. Intensive care unit care. 14. BiPAP, hypercapnia. 15. Asthma. 16. Blood sugar and blood pressure treatment for diabetes and hypertension per primary. 17. Pfg-ZA-yevlbxfyn myocardial infarction history. 18. Hyperkalemia. 19. Allergies negative. 20. Social history negative. 21. Family history noncontributory. 22. mar noted. 23. Case discussed with RN, intensive care unit care. 24. No known drug allergies. 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 Subjective Constitutional: Reports: other - on vent, pressors, cannot wean, Denies: fever HEENT: Reports: congestion Respiratory: Reports: shortness of breath Cardiovascular: Denies: chest pain Gastrointestinal/Abdominal: Denies: nausea, vomiting, diarrhea Genitourinary: Reports: other - + vargas Neurologic: Reports: other - alert and responsive Psychiatric: Reports: other - na Skin: Denies: rash Hematologic: Denies: bleeding Musculoskeletal: Denies: pain Allergies: Coded Allergies: No Known Allergies (Unverified , 06/01/17) Objective Vital Signs Last 24 Hour Vital Signs Date Time Temp Pulse Resp B/P (MAP) Pulse Ox O2 Delivery O2 Flow Rate FiO2 08/24/17 19:08 59 20 80 08/24/17 18:00 64 16 110/54 100 Mechanical Ventilator 40 08/24/17 17:29 60 21 80 08/24/17 17:00 56 19 104/55 100 Mechanical Ventilator 40 08/24/17 16:00 99.1 57 20 107/53 100 Mechanical Ventilator 40 08/24/17 16:00 40 1/15/18 15:15 64 20 80 08/24/17 15:00 63 20 112/59 100 Mechanical Ventilator 40 08/24/17 14:00 67 20 102/54 100 Mechanical Ventilator 40 08/24/17 13:06 65 20 80 08/24/17 13:00 63 17 111/58 100 Mechanical Ventilator 40 08/24/17 12:00 68 08/24/17 12:00 98.0 66 16 113/56 100 Mechanical Ventilator 40 08/24/17 12:00 40 08/24/17 11:00 63 18 117/54 100 Mechanical Ventilator 40 08/24/17 10:47 60 21 80 08/24/17 10:00 56 20 117/55 100 Mechanical Ventilator 40 08/24/17 09:37 59 26 80 08/24/17 09:00 59 19 103/53 100 Mechanical Ventilator 40 08/24/17 08:00 40 08/24/17 08:00 52 08/24/17 08:00 99.5 58 25 111/54 100 Mechanical Ventilator 40 08/24/17 07:10 57 26 80 08/24/17 07:00 58 20 110/51 100 Mechanical Ventilator 40 08/24/17 06:00 66 20 115/50 100 Mechanical Ventilator 40 08/24/17 05:30 57 26 80 08/24/17 05:00 61 20 110/50 100 Mechanical Ventilator 40 08/24/17 04:00 53 08/24/17 04:00 40 08/24/17 04:00 98.4 53 20 115/54 100 Mechanical Ventilator 40 08/24/17 03:30 61 21 80 08/24/17 03:21 70 20 115/54 97 Mechanical Ventilator 40 08/24/17 03:00 51 20 100/50 99 Mechanical Ventilator 40 08/24/17 02:00 58 20 89/45 97 Mechanical Ventilator 40 08/24/17 01:30 60 20 80 08/24/17 01:00 95 20 94/43 97 Mechanical Ventilator 40 08/24/17 00:00 98.2 70 20 115/54 97 Mechanical Ventilator 40 08/24/17 00:00 40 08/23/17 23:26 60 20 80 08/23/17 23:00 58 20 109/52 97 Mechanical Ventilator 40 08/23/17 22:00 62 20 115/53 97 Mechanical Ventilator 40 08/23/17 21:30 60 20 80 08/23/17 21:00 63 20 115/53 97 Mechanical Ventilator 40 08/23/17 20:00 40 08/23/17 20:00 64 08/23/17 20:00 98.6 59 20 114/53 99 Mechanical Ventilator 40 08/23/17 19:30 65 22 80 Height (Feet): 5 Height (Inches): 3.00 Weight (Pounds): 490 General Appearance: other - on vent, no pressors HEENT: normocephalic, atraumatic, anicteric Respiratory/Chest: crackles/rales, rhonchi - bilaterally Cardiovascular: normal rate, regular rhythm, no gallop/murmur, no JVD Abdomen: normal bowel sounds, soft, non tender, no organomegaly, non distended Genitourinary: other - + vargas - urine clear Extremities: no cyanosis Skin: no rash Neurologic/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 Continued slight improved aeration in the right mid/lower lung. 08/24 - chest x-ray - Impression: Since is interstitial and bilateral airspace opacities with interval worsening of aeration of the right lung compared to one day prior. Microbiology Date/Time Source Procedure Growth Status 08/19/17 07:55 Blood Blood Culture - Preliminary NO GROWTH AFTER 4 DAYS Resulted 08/23/17 03:30 Sputum Gram Stain - Final Resulted 08/23/17 03:30 Sputum Sputum Culture - Preliminary NORMAL UPPER RESPIRATORY YINA AT 24 ... Resulted 08/19/17 08:45 Rectum VRE Culture - Final NO VANCOMYCIN RESISTANT ENTEROCOCCUS ... Complete Microbiology Date/Time Source Procedure Growth Status 08/23/17 03:30 Sputum Gram Stain - Final Resulted 08/23/17 03:30 Sputum Sputum Culture - Preliminary NORMAL UPPER RESPIRATORY IYNA AT 24 ... Resulted Laboratory Tests Test 08/24/17 04:00 08/24/17 05:20 Arterial Blood pH 7.583 (7.350-7.450) Arterial Blood Partial Pressure CO2 35.1 mmHg (35.0-45.0) Arterial Blood Partial Pressure O2 73.0 mmHg (75.0-100.0) L Arterial Blood HCO3 32.4 mmol/L (22.0-26.0) H Arterial Blood Oxygen Saturation 94.9 % (92.0-98.0) Arterial Blood Base Excess 10.0 Doroteo Test Positive White Blood Count 14.9 K/UL (4.8-10.8) H Red Blood Count 4.02 M/UL (4.20-5.40) L Hemoglobin 9.0 G/DL (12.0-16.0) L Hematocrit 32.3 % (37.0-47.0) L Mean Corpuscular Volume 80 FL (80-99) Mean Corpuscular Hemoglobin 22.3 PG (27.0-31.0) L Mean Corpuscular Hemoglobin Concent 27.8 G/DL (32.0-36.0) L Red Cell Distribution Width 18.1 % (11.6-14.8) H Platelet Count 116 K/UL (150-450) L Mean Platelet Volume 9.7 FL (6.5-10.1) Neutrophils (%) (Auto) 68.6 % (45.0-75.0) Lymphocytes (%) (Auto) 18.9 % (20.0-45.0) L Monocytes (%) (Auto) 11.0 % (1.0-10.0) H Eosinophils (%) (Auto) 1.2 % (0.0-3.0) Basophils (%) (Auto) 0.4 % (0.0-2.0) Sodium Level 142 MMOL/L (136-145) Potassium Level 3.3 MMOL/L (3.5-5.1) L Chloride Level 100 MMOL/L (98-107) Carbon Dioxide Level 34 MMOL/L (21-32) H Anion Gap 8 mmol/L (5-15) Blood Urea Nitrogen 56 mg/dL (7-18) H Creatinine 3.6 MG/DL (0.55-1.30) H Estimat Glomerular Filtration Rate 15.6 mL/min (>60) Glucose Level 151 MG/DL (74-106) H Uric Acid 8.4 MG/DL (2.6-7.2) H Calcium Level 8.3 MG/DL (8.5-10.1) L Phosphorus Level 3.0 MG/DL (2.5-4.9) Magnesium Level 2.0 MG/DL (1.8-2.4) Total Bilirubin 1.2 MG/DL (0.2-1.0) H Direct Bilirubin 0.5 MG/DL (0.0-0.3) H Aspartate Amino Transf (AST/SGOT) 176 U/L (15-37) H Alanine Aminotransferase (ALT/SGPT) 983 U/L (12-78) H Alkaline Phosphatase 92 U/L (46-116) Troponin I 1.905 ng/mL (0.000-0.056) Pro-B-Type Natriuretic Peptide 1664 pg/mL (0-125) H Total Protein 6.5 G/DL (6.4-8.2) Albumin 1.8 G/DL (3.4-5.0) L Globulin 4.7 g/dL Albumin/Globulin Ratio 0.4 (1.0-2.7) L Random Vancomycin Level 13.6 ug/mL Current Medications Medications (Trade) Dose Ordered Sig/Felipe Route PRN Reason Start Time Stop Time Status Last Admin Dose Admin Acetaminophen (Tylenol) 650 mg Q6HR PRN NG Mild Pain/Temp > 100.1 08/20/17 13:00 09/19/17 12:59 08/22/17 09:12 Aspirin (ASA) 81 mg DAILY ORAL 08/20/17 09:00 09/19/17 08:59 08/24/17 08:55 Atorvastatin Calcium (Lipitor) 20 mg BEDTIME ORAL 08/22/17 21:00 09/21/17 20:59 08/23/17 21:15 Azithromycin (Zithromax) 250 mg DAILY ORAL 08/23/17 09:00 08/30/17 08:59 08/24/17 08:54 Chlorhexidine Gluconate (Vicki-Hex 2%) 1 applic DAILY@2000 TOPIC 08/20/17 20:00 09/19/17 19:59 08/23/17 20:31 Dextrose (Dextrose 50%) STAT PRN IV Hypoglycemia 08/19/17 12:00 09/18/17 11:59 Digoxin (Lanoxin) 0.125 mg DAILY ORAL 08/25/17 09:00 09/24/17 08:59 Epoetin Dario (Procrit (for ESRD on dialysis)) 10,000 units THU-THU-THU SUBQ 08/21/17 21:00 09/20/17 20:59 08/21/17 21:08 Heparin Sodium (Porcine) (Heparin 5000 units/ml) 5,000 units EVERY 12 HOURS SUBQ 08/22/17 21:00 09/21/17 20:59 08/24/17 09:12 Insulin Aspart (NovoLOG) BEFORE MEALS AND HS SUBQ 08/19/17 12:30 09/18/17 12:29 08/24/17 16:37 Lorazepam (Ativan 2mg/ml 1ml) 2 mg Q4H PRN IV For Anxiety 08/19/17 12:00 08/26/17 11:59 Meropenem 500 mg/ Sodium Chloride 55 ml @ 110 mls/hr Q24H IVPB 08/23/17 18:00 08/27/17 17:59 08/24/17 17:52 Metoprolol Tartrate (Lopressor) 12.5 mg Q12HR ORAL 08/24/17 21:00 09/23/17 20:59 Morphine Sulfate (Morphine Sulfate) 2 mg Q4H PRN IVP Moderate Pain (Pain Scale 4-6) 08/19/17 10:30 08/26/17 10:29 Morphine Sulfate (Morphine Sulfate) 4 mg Q4H PRN IVP For Pain Scale 7-10 08/19/17 12:00 08/26/17 11:59 Nitroglycerin (Ntg) 0.4 mg Q5MIN X 3 DOSES PRN SL Prn Chest Pain 08/19/17 12:00 09/18/17 11:59 Ondansetron HCl (Zofran) 4 mg Q6H PRN IVP Nausea & Vomiting 08/19/17 12:00 09/18/17 11:59 Pantoprazole (Protonix) 40 mg DAILY IV 08/20/17 09:00 09/19/17 08:59 08/24/17 08:54 Polyethylene Glycol (Miralax) 17 gm DAILYPRN PRN ORAL Constipation 08/19/17 10:30 09/18/17 10:29 Temazepam (Restoril) 15 mg HSPRN PRN ORAL Insomnia 08/19/17 12:00 08/26/17 11:59 Vancomycin HCl (Vanco rx to dose) 1 ea DAILYPRN PRN MISC RX TO DOSE PROTOCL 08/19/17 13:00 09/18/17 12:59 JUNI ABDUL Aug 24, 2017 19:34
[2017-08-24] MEDS: Dyna-Hex 2% Top Sol 2oz TOPIC SCH (19:46)
[2017-08-24] MEDS: Epogen (for ESRD on dialysis) SUBQ SCH (20:52)
[2017-08-24] MEDS: Atorvastatin 20mg tab ORAL SCH (20:52)
[2017-08-24] MEDS ORDERED: Metoprolol Tartrate 12.5mg TAB ORAL SCH (21:00)
[2017-08-25] VITALS (24 sets, daily range): BP systolic 97–125; BP diastolic 31–58
[2017-08-25] MEDS ORDERED: Meropenem 500 MG in NS 55 ML IVPB SCH (06:00)
[2017-08-25] MEDS: NovoLOG Insulin Flexpen SUBQ SCH ×4 (06:05→21:12)
[2017-08-25 06:15] LABS: BASOPHILS % (AUTO) 0.9 % (0.0-2.0); EOSINOPHILS % (AUTO) 2.8 % (0.0-3.0); HEMATOCRIT 31.5 % (37.0-47.0); HEMOGLOBIN 8.8 G/DL (12.0-16.0); LYMPHOCYTES % (AUTO) 27.8 % (20.0-45.0); MEAN CORPUSCULAR VOLUME 81 FL (80-99); NEUTROPHILS % (AUTO) 52.5 % (45.0-75.0); PLATELET COUNT 136 K/UL (150-450); RED CELL DISTRIBUTION WIDTH 18.5 % (11.6-14.8)
[2017-08-25 06:35] LABS: ALANINE AMINOTRANSFERASE 722 U/L (12-78); ALBUMIN 1.9 G/DL (3.4-5.0); ALBUMIN/GLOBULIN RATIO 0.4 (1.0-2.7); ALKALINE PHOSPHATASE 86 U/L (46-116); ANION GAP 7 mmol/L (5-15); ASPARTATE AMINO TRANSFERASE 90 U/L (15-37); BILIRUBIN,TOTAL 0.9 MG/DL (0.2-1.0); BLOOD UREA NITROGEN 64 mg/dL (7-18); CALCIUM 8.6 MG/DL (8.5-10.1); CARBON DIOXIDE 34 MMOL/L (21-32); CHLORIDE 102 MMOL/L (98-107); CREATININE 2.9 MG/DL (0.55-1.30); PHOSPHORUS 2.8 MG/DL (2.5-4.9); POTASSIUM 3.3 MMOL/L (3.5-5.1); SODIUM 143 MMOL/L (136-145)
[2017-08-25] MEDS ORDERED: Miralax 17gm pkt GT PRN (08:15)
[2017-08-25] MEDS: Aspirin Baby 81mg GT SCH (09:19)
[2017-08-25] MEDS: Digoxin 0.125mg tab GT SCH (09:20)
[2017-08-25] MEDS: Azithromycin 250mg tab GT SCH (09:20)
[2017-08-25] MEDS: Metoprolol Tartrate 12.5mg TAB GT SCH ×2 (09:20→21:00)
[2017-08-25] MEDS: Heparin 5000 units/ml inj SUBQ SCH ×2 (09:23→21:11)
[2017-08-25] MEDS: Pantoprazole Inj IV SCH (09:24)
--- NOTE | 2017-08-25 11:13 | Pulmonolgy Critical Care Note ---
Critical Care - Asmt/Plan Problems: (1) Acute respiratory failure with hypoxia and hypercapnia (2) Acute renal failure (ARF) (3) Non-STEMI (non-ST elevated myocardial infarction) (4) Septic shock (5) Acute toxic metabolic encephalopathy (6) DM2 (diabetes mellitus, type 2) (7) Lactic acid acidosis Respiratory: monitor respiratory rate, adjust FIO2, CXR Cardiac: continue to monitor HR/BP Renal: F/U I&O, check electrolytes, other - add one dose of Zaroxyline Infectious Disease: check cultures, continue antibiotics Gastrointestinal: continue feedings/current rate Endocrine: monitor blood sugar Hematologic: monitor H/H Neurologic: PRN Morphine Prophylaxis: Protonix, Heparin Notes Reviewed: pr internship, 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 with: case briefermanager utilization review - Objective Last 24 Hour Vital Signs Date Time Temp Pulse Resp B/P (MAP) Pulse Ox O2 Delivery O2 Flow Rate FiO2 08/25/17 11:00 54 18 108/44 100 Mechanical Ventilator 40 08/25/17 10:00 49 20 103/49 100 Mechanical Ventilator 40 08/25/17 09:20 63 116/48 08/25/17 09:20 62 08/25/17 09:11 64 20 80 08/25/17 09:00 53 20 116/48 100 Mechanical Ventilator 40 08/25/17 08:00 98.5 58 21 109/56 100 Mechanical Ventilator 40 08/25/17 08:00 40 08/25/17 08:00 53 08/25/17 07:00 56 20 104/46 100 Mechanical Ventilator 40 08/25/17 06:54 57 20 80 08/25/17 06:00 71 19 107/57 100 Mechanical Ventilator 40 08/25/17 05:01 61 20 80 08/25/17 05:00 50 19 125/56 100 Mechanical Ventilator 40 08/25/17 04:00 98.7 47 19 116/57 100 Mechanical Ventilator 40 08/25/17 04:00 40 08/25/17 03:46 47 08/25/17 03:09 46 20 80 08/25/17 03:00 48 19 112/57 100 Mechanical Ventilator 40 08/25/17 02:00 56 20 113/53 100 Mechanical Ventilator 40 08/25/17 01:23 59 20 80 08/25/17 01:00 50 20 113/56 100 Mechanical Ventilator 40 08/25/17 00:13 51 08/25/17 00:00 98.8 54 20 109/56 100 Mechanical Ventilator 40 08/25/17 00:00 40 08/24/17 23:10 60 20 80 08/24/17 23:00 66 20 124/60 99 Mechanical Ventilator 40 08/24/17 22:00 59 16 113/56 99 Mechanical Ventilator 40 08/24/17 21:05 60 20 80 08/24/17 21:00 58 20 114/54 99 Mechanical Ventilator 40 08/24/17 20:52 61 112/53 08/24/17 20:00 40 08/24/17 20:00 98.6 58 20 109/54 98 Mechanical Ventilator 40 08/24/17 19:54 58 08/24/17 19:08 59 20 80 08/24/17 19:00 61 20 110/51 100 Mechanical Ventilator 40 08/24/17 18:00 64 16 110/54 100 Mechanical Ventilator 40 08/24/17 17:29 60 21 80 08/24/17 17:00 56 19 104/55 100 Mechanical Ventilator 40 08/24/17 16:00 99.1 57 20 107/53 100 Mechanical Ventilator 40 08/24/17 16:00 40 08/24/17 16:00 61 08/24/17 15:15 64 20 80 08/24/17 15:00 63 20 112/59 100 Mechanical Ventilator 40 08/24/17 14:00 67 20 102/54 100 Mechanical Ventilator 40 08/24/17 13:06 65 20 80 08/24/17 13:00 63 17 111/58 100 Mechanical Ventilator 40 08/24/17 12:00 68 08/24/17 12:00 98.0 66 16 113/56 100 Mechanical Ventilator 40 08/24/17 12:00 40 Condition: critical HEENT: atraumatic, normocephalic Lungs: clear Heart: HR/BP stable Abdomen: soft, non-tender Extremities: edema Decubiti: location Micro: Microbiology Date/Time Source Procedure Growth Status 08/23/17 03:30 Sputum Gram Stain - Final Complete 08/23/17 03:30 Sputum Culture - Final Tamia Albicans Usual Upper Respiratory Cassandra Complete Accucheck: 165 Critical Care - Subjective ROS Limited/Unobtainable: Yes ICU Day: 8 Intubation Day: 8 Condition: critical EKG Rhythm: Sinus Rhythm FI02: 40 Vent Support Breath Rate: 26 Vent Support Mode: AC Vent Tidal Volume: 700 Sputum Amount: Large PEEP: 5.0 PIP: 37 Tube Feeding Amount: 20 I&O: Intake and Output 08/24/17 08/25/17 19:00 07:00 Intake Total 1220.0 ml 345 ml Output Total 405 ml 720 ml Balance 815.0 ml -375 ml Free Water 50 ml IV Total 905.0 ml 55 ml Tube Feeding 240 ml 240 ml Other 25 ml 50 ml Output Urine Total 405 ml 720 ml CXR: pulmonary edema, ET in good position ET-Tube: 8.0 ET Position: 24 Labs: Laboratory Tests Test 08/25/17 03:30 White Blood Count 11.0 K/UL (4.8-10.8) H Red Blood Count 3.90 M/UL (4.20-5.40) L Hemoglobin 8.8 G/DL (12.0-16.0) L Hematocrit 31.5 % (37.0-47.0) L Mean Corpuscular Volume 81 FL (80-99) Mean Corpuscular Hemoglobin 22.7 PG (27.0-31.0) L Mean Corpuscular Hemoglobin Concent 28.1 G/DL (32.0-36.0) L Red Cell Distribution Width 18.5 % (11.6-14.8) H Platelet Count 136 K/UL (150-450) L Mean Platelet Volume 7.5 FL (6.5-10.1) Neutrophils (%) (Auto) 52.5 % (45.0-75.0) Lymphocytes (%) (Auto) 27.8 % (20.0-45.0) Monocytes (%) (Auto) 16.0 % (1.0-10.0) H Eosinophils (%) (Auto) 2.8 % (0.0-3.0) Basophils (%) (Auto) 0.9 % (0.0-2.0) Sodium Level 143 MMOL/L (136-145) Potassium Level 3.3 MMOL/L (3.5-5.1) L Chloride Level 102 MMOL/L (98-107) Carbon Dioxide Level 34 MMOL/L (21-32) H Anion Gap 7 mmol/L (5-15) Blood Urea Nitrogen 64 mg/dL (7-18) H Creatinine 2.9 MG/DL (0.55-1.30) H Estimat Glomerular Filtration Rate 20.1 mL/min (>60) Glucose Level 158 MG/DL (74-106) H Uric Acid 9.7 MG/DL (2.6-7.2) H Calcium Level 8.6 MG/DL (8.5-10.1) Phosphorus Level 2.8 MG/DL (2.5-4.9) Magnesium Level 2.2 MG/DL (1.8-2.4) Total Bilirubin 0.9 MG/DL (0.2-1.0) Aspartate Amino Transf (AST/SGOT) 90 U/L (15-37) H Alanine Aminotransferase (ALT/SGPT) 722 U/L (12-78) H Alkaline Phosphatase 86 U/L (46-116) Troponin I 1.311 ng/mL (0.000-0.056) Total Protein 6.7 G/DL (6.4-8.2) Albumin 1.9 G/DL (3.4-5.0) L Globulin 4.8 g/dL Albumin/Globulin Ratio 0.4 (1.0-2.7) L Digoxin Level 0.9 NG/ML (0.9-2.0) DOMONIQUE DOBBS Aug 25, 2017 11:13
--- NOTE | 2017-08-25 12:28 | General Progress Note ---
Assessment/Plan Problem List: (1) SVT (supraventricular tachycardia) ICD Codes: I47.1 - Supraventricular tachycardia SNOMED: 4194501 (2) Acute respiratory failure with hypoxia and hypercapnia ICD Codes: J96.01 - Acute respiratory failure with hypoxia; J96.02 - Acute respiratory failure with hypercapnia SNOMED: 20085947, 92834307, 574442000 (3) Septic shock ICD Codes: A41.9 - Sepsis, unspecified organism; R65.21 - Severe sepsis with septic shock SNOMED: 10344890 (4) KASHIF (acute kidney injury) ICD Codes: N17.9 - Acute kidney failure, unspecified SNOMED: 52304929 (5) Lactic acid acidosis ICD Codes: E87.2 - Acidosis SNOMED: 63268474 (6) Hyperkalemia ICD Codes: E87.5 - Hyperkalemia; J96.02 - Acute respiratory failure with hypercapnia SNOMED: 15394802, 56386137, 819310011 (7) Acute toxic metabolic encephalopathy (8) Shock liver ICD Codes: K72.00 - Acute and subacute hepatic failure without coma SNOMED: 723256863 (9) Non-STEMI (non-ST elevated myocardial infarction) ICD Codes: I21.4 - Non-ST elevation (NSTEMI) myocardial infarction; J96.02 - Acute respiratory failure with hypercapnia SNOMED: 281419624, 42738147, 913964127 (10) DM2 (diabetes mellitus, type 2) ICD Codes: E11.9 - Type 2 diabetes mellitus without complications SNOMED: 03901726 (11) Asthma ICD Codes: J45.909 - Unspecified asthma, uncomplicated SNOMED: 952166208 (12) GERD (gastroesophageal reflux disease) ICD Codes: K21.9 - Gastro-esophageal reflux disease without esophagitis SNOMED: 987050112 Status: stable Assessment/Plan Cont ICU care Pulmonology, Nephrology, GI, ID, Cardiology consulted Empiric vanco, meropenem and azithro per ID F/u cultures Cont on vent and wean as tolerated Daily SBTs Now off presors Arterial line placed 08/20/17 Trend lactate--downtrending Trend trop/EKG--downtrending ASA, statin F/u ECHO--EF 70%, grade 1 diastolic dysfcn, LVH Cont on MTP per cardiology; digoxin d/c'd HD on hold per renal as Cr improving. Last HD 08/22. Trend BMP closely s/p mucomyst IV for shock liver/hepatitis per GI Trend LFTs--downtrending Cont tube feeds via NGT PPI Pain control, supportive care, bowel regimen DVT Prophylaxis: HSQ Code Status: Full Hospital Classification Declaration: Based on this initial evaluation, and depending on the patient's clinical course, I anticipate that this patient will require hospitalization for 4-5 days for acute respiratory failure, septic shock and close respiratory/hemodynamic monitoring. At the time of my involvement, the patient's condition was critical with high potential for and/or physiologic deterioration secondary to acute respiratory failure, septic shock, shock liver, KASHIF as delineated in the note above. On the above date of service, I spent a total of 36 minutes in the ICU evaluating, managing, and providing critical care services to this patient, including time spent documenting these activities, counseling patient/family, and coordinating care. Critical care services performed include: Telemetry Review Hemodynamic measurement interpretation Laboratory data review and interpretation Ventilator setting review, management, and adjustment Discussion of care plans with patient, family, and/or surrogate decision makers Discussion of patient's care with primary medical team, surgical team, and/or consulting service Decision to obtain further radiologic evaluation, after consideration of risk/ benefit ratio Decision to perform invasive procedure, after consideration of risk/benefit ratio Review of most recent microbiology results with assessment and modification of antimicrobial coverage Discussion of patient's code status and further advancement towards the ultimate goals of care Plan outlined above discussed with patient/family, [employer], ICU team, and involved physicians/consultants. D/w ID re abx. D/w pulm re SBT. D/w renal re need for HD. Time of note may not reflect time of encounter. Subjective Date patient seen: Aug 25, 2017 Time patient seen: 12:27 ROS Limited/Unobtainable: No Allergies: Coded Allergies: No Known Allergies (Unverified , 06/01/17) Subjective No acute o/n events Off pressors now Did well on SBT today x1.5h but then got tired and now back on vent CXR w/ moderate PVC Pt intubated, awake, alert, responding/asking questions by writing Denies pain Objective Last 24 Hour Vital Signs Date Time Temp Pulse Resp B/P (MAP) Pulse Ox O2 Delivery O2 Flow Rate FiO2 08/25/17 12:20 97 26 80 08/25/17 12:00 98.7 70 20 114/45 100 Mechanical Ventilator 40 08/25/17 12:00 68 08/25/17 12:00 40 08/25/17 11:07 55 22 80 08/25/17 11:00 54 18 108/44 100 Mechanical Ventilator 40 08/25/17 10:00 49 20 103/49 100 Mechanical Ventilator 40 08/25/17 09:20 63 116/48 08/25/17 09:20 62 08/25/17 09:11 64 20 80 08/25/17 09:00 53 20 116/48 100 Mechanical Ventilator 40 08/25/17 08:00 98.5 58 21 109/56 100 Mechanical Ventilator 40 08/25/17 08:00 40 08/25/17 08:00 53 08/25/17 07:00 56 20 104/46 100 Mechanical Ventilator 40 08/25/17 06:54 57 20 80 08/25/17 06:00 71 19 107/57 100 Mechanical Ventilator 40 08/25/17 05:01 61 20 80 08/25/17 05:00 50 19 125/56 100 Mechanical Ventilator 40 08/25/17 04:00 98.7 47 19 116/57 100 Mechanical Ventilator 40 08/25/17 04:00 40 08/25/17 03:46 47 08/25/17 03:09 46 20 80 08/25/17 03:00 48 19 112/57 100 Mechanical Ventilator 40 08/25/17 02:00 56 20 113/53 100 Mechanical Ventilator 40 08/25/17 01:23 59 20 80 08/25/17 01:00 50 20 113/56 100 Mechanical Ventilator 40 08/25/17 00:13 51 08/25/17 00:00 98.8 54 20 109/56 100 Mechanical Ventilator 40 08/25/17 00:00 40 08/24/17 23:10 60 20 80 08/24/17 23:00 66 20 124/60 99 Mechanical Ventilator 40 08/24/17 22:00 59 16 113/56 99 Mechanical Ventilator 40 08/24/17 21:05 60 20 80 08/24/17 21:00 58 20 114/54 99 Mechanical Ventilator 40 08/24/17 20:52 61 112/53 08/24/17 20:00 40 08/24/17 20:00 98.6 58 20 109/54 98 Mechanical Ventilator 40 08/24/17 19:54 58 08/24/17 19:08 59 20 80 08/24/17 19:00 61 20 110/51 100 Mechanical Ventilator 40 08/24/17 18:00 64 16 110/54 100 Mechanical Ventilator 40 08/24/17 17:29 60 21 80 08/24/17 17:00 56 19 104/55 100 Mechanical Ventilator 40 08/24/17 16:00 99.1 57 20 107/53 100 Mechanical Ventilator 40 08/24/17 16:00 40 08/24/17 16:00 61 08/24/17 15:15 64 20 80 08/24/17 15:00 63 20 112/59 100 Mechanical Ventilator 40 08/24/17 14:00 67 20 102/54 100 Mechanical Ventilator 40 08/24/17 13:06 65 20 80 08/24/17 13:00 63 17 111/58 100 Mechanical Ventilator 40 Intake and Output 08/24/17 08/25/17 19:00 07:00 Intake Total 1220.0 ml 345 ml Output Total 405 ml 720 ml Balance 815.0 ml -375 ml Free Water 50 ml IV Total 905.0 ml 55 ml Tube Feeding 240 ml 240 ml Other 25 ml 50 ml Output Urine Total 405 ml 720 ml Laboratory Tests 08/25/17 03:30: White Blood Count 11.0H, Red Blood Count 3.90L, Hemoglobin 8.8L, Hematocrit 31.5L, Mean Corpuscular Volume 81, Mean Corpuscular Hemoglobin 22.7L, Mean Corpuscular Hemoglobin Concent 28.1L, Red Cell Distribution Width 18.5H, Platelet Count 136L, Mean Platelet Volume 7.5, Neutrophils (%) (Auto) 52.5, Lymphocytes (%) (Auto) 27.8, Monocytes (%) (Auto) 16.0H, Eosinophils (%) (Auto) 2.8, Basophils (%) (Auto) 0.9, Sodium Level 143, Potassium Level 3.3L, Chloride Level 102, Carbon Dioxide Level 34H, Anion Gap 7, Blood Urea Nitrogen 64H, Creatinine 2.9H, Estimat Glomerular Filtration Rate 20.1, Glucose Level 158H, Uric Acid 9.7H, Calcium Level 8.6, Phosphorus Level 2.8, Magnesium Level 2.2, Total Bilirubin 0.9, Aspartate Amino Transf (AST/SGOT) 90H, Alanine Aminotransferase (ALT/SGPT) 722H, Alkaline Phosphatase 86, Troponin I 1.311H, Total Protein 6.7, Albumin 1.9L, Globulin 4.8, Albumin/Globulin Ratio 0.4L, Digoxin Level 0.9 Height (Feet): 5 Height (Inches): 3.00 Weight (Pounds): 488 Objective General: intubated, sedated, morbid obesity Head: normocephalic, without obvious abnormality, atraumatic Eyes: conjunctivae/corneas clear. PERRL, EOM's intact Throat: lips, mucosa, and tongue normal. MMM Neck: supple, symmetrical, trachea midline, and no JVD Lungs: clear to auscultation bilaterally Heart: regular rate and rhythm, S1, S2 normal, no murmur, click, rub or gallop Abdomen: soft, non-tender, non-distended, bowel sounds normal Extremities: extremities normal, atraumatic, no cyanosis or edema Pulses: 2+ and symmetric Skin: skin color, texture, turgor normal; no rashes or lesions Neurologic: sedated Cassie Bolivar M.D. Aug 25, 2017 12:28
--- NOTE | 2017-08-25 12:53 | Diagnostic Imaging Report ---
Indication: Dyspnea Comparison: 08/23/2017 A single view chest radiograph was obtained. Findings: Less pulmonary edema seen currently with a mild to moderate residual. Tubes and lines are stable. IMPRESSION: Improved pulmonary edema with moderate residual
--- NOTE | 2017-08-25 13:31 | Nephrology Progress Note ---
Assessment/Plan Problem List: (1) Acute renal failure (ARF) (2) Acute respiratory acidosis (3) Lactic acid acidosis (4) Septic shock (5) Acute respiratory failure with hypoxia and hypercapnia (6) Elevated troponin I level Assessment acute renal failure, Cr leveling Hyperkalemia resolved sepsis, high Lactic , acidosis low BP resp failure obese rapid rise in Troponin- now on way down Plan PRN diuretics dialysed 08/19 redialysed 08/22 Hold dialysis for now K , Mg, Phos supplements as needed per cardiology and ID and pulm discussed with ID monitor renal parameters and dialysis as needed Subjective ROS Limited/Unobtainable: Yes Objective Objective Last 24 Hour Vital Signs Date Time Temp Pulse Resp B/P (MAP) Pulse Ox O2 Delivery O2 Flow Rate FiO2 08/25/17 13:00 60 23 97/44 100 Mechanical Ventilator 40 08/25/17 12:30 97 26 80 08/25/17 12:20 97 26 80 08/25/17 12:00 98.7 70 20 114/45 100 Mechanical Ventilator 40 08/25/17 12:00 68 08/25/17 12:00 40 08/25/17 11:07 55 22 80 08/25/17 11:00 54 18 108/44 100 Mechanical Ventilator 40 08/25/17 10:00 49 20 103/49 100 Mechanical Ventilator 40 08/25/17 09:20 63 116/48 08/25/17 09:20 62 08/25/17 09:11 64 20 80 08/25/17 09:00 53 20 116/48 100 Mechanical Ventilator 40 08/25/17 08:00 98.5 58 21 109/56 100 Mechanical Ventilator 40 08/25/17 08:00 40 08/25/17 08:00 53 08/25/17 07:00 56 20 104/46 100 Mechanical Ventilator 40 08/25/17 06:54 57 20 80 08/25/17 06:00 71 19 107/57 100 Mechanical Ventilator 40 08/25/17 05:01 61 20 80 08/25/17 05:00 50 19 125/56 100 Mechanical Ventilator 40 08/25/17 04:00 98.7 47 19 116/57 100 Mechanical Ventilator 40 08/25/17 04:00 40 08/25/17 03:46 47 08/25/17 03:09 46 20 80 08/25/17 03:00 48 19 112/57 100 Mechanical Ventilator 40 08/25/17 02:00 56 20 113/53 100 Mechanical Ventilator 40 08/25/17 01:23 59 20 80 08/25/17 01:00 50 20 113/56 100 Mechanical Ventilator 40 08/25/17 00:13 51 08/25/17 00:00 98.8 54 20 109/56 100 Mechanical Ventilator 40 08/25/17 00:00 40 08/24/17 23:10 60 20 80 08/24/17 23:00 66 20 124/60 99 Mechanical Ventilator 40 08/24/17 22:00 59 16 113/56 99 Mechanical Ventilator 40 08/24/17 21:05 60 20 80 08/24/17 21:00 58 20 114/54 99 Mechanical Ventilator 40 08/24/17 20:52 61 112/53 08/24/17 20:00 40 08/24/17 20:00 98.6 58 20 109/54 98 Mechanical Ventilator 40 08/24/17 19:54 58 08/24/17 19:08 59 20 80 08/24/17 19:00 61 20 110/51 100 Mechanical Ventilator 40 08/24/17 18:00 64 16 110/54 100 Mechanical Ventilator 40 08/24/17 17:29 60 21 80 08/24/17 17:00 56 19 104/55 100 Mechanical Ventilator 40 08/24/17 16:00 99.1 57 20 107/53 100 Mechanical Ventilator 40 08/24/17 16:00 40 08/24/17 16:00 61 08/24/17 15:15 64 20 80 08/24/17 15:00 63 20 112/59 100 Mechanical Ventilator 40 08/24/17 14:00 67 20 102/54 100 Mechanical Ventilator 40 Intake and Output 08/24/17 08/25/17 19:00 07:00 Intake Total 1220.0 ml 345 ml Output Total 405 ml 720 ml Balance 815.0 ml -375 ml Free Water 50 ml IV Total 905.0 ml 55 ml Tube Feeding 240 ml 240 ml Other 25 ml 50 ml Output Urine Total 405 ml 720 ml Laboratory Tests 08/25/17 03:30: White Blood Count 11.0H, Red Blood Count 3.90L, Hemoglobin 8.8L, Hematocrit 31.5L, Mean Corpuscular Volume 81, Mean Corpuscular Hemoglobin 22.7L, Mean Corpuscular Hemoglobin Concent 28.1L, Red Cell Distribution Width 18.5H, Platelet Count 136L, Mean Platelet Volume 7.5, Neutrophils (%) (Auto) 52.5, Lymphocytes (%) (Auto) 27.8, Monocytes (%) (Auto) 16.0H, Eosinophils (%) (Auto) 2.8, Basophils (%) (Auto) 0.9, Sodium Level 143, Potassium Level 3.3L, Chloride Level 102, Carbon Dioxide Level 34H, Anion Gap 7, Blood Urea Nitrogen 64H, Creatinine 2.9H, Estimat Glomerular Filtration Rate 20.1, Glucose Level 158H, Uric Acid 9.7H, Calcium Level 8.6, Phosphorus Level 2.8, Magnesium Level 2.2, Total Bilirubin 0.9, Aspartate Amino Transf (AST/SGOT) 90H, Alanine Aminotransferase (ALT/SGPT) 722H, Alkaline Phosphatase 86, Troponin I 1.311H, Total Protein 6.7, Albumin 1.9L, Globulin 4.8, Albumin/Globulin Ratio 0.4L, Digoxin Level 0.9 Height (Feet): 5 Height (Inches): 3.00 Weight (Pounds): 488 General Appearance: other - more awake EENT: other - remains intubated Cardiovascular: regular rhythm Respiratory/Chest: decreased breath sounds Abdomen: distended AGUSTIN CONTRERAS Aug 25, 2017 13:31
--- NOTE | 2017-08-25 17:06 | Cardiac Electrophysiology PN ---
Assessment/Plan Assessment/Plan 1. Non-ST elevation myocardial infarction. Trop peak 16.4, down to 1.9. Echocardiogram EF 75%. No chest pain On Aspirin, Lipitor and Lopressor 12.5 bid 2. Recurrent SVT at rate 200 bpm. Did not terminated with 6 or 12 of adenosine but converted with the second dose of digoxin. Continue Lopressor 12.5 bid and Digoxin 0.125 daily. Dig level 1.4 3. Respiratory failure, on the ventilator. 4. Accelerated Junctional rhythm. No further, Watch on Lopressor 5. S/P Septic shock. Continue broad-spectrum intravenous antibiotic and off pressors 6. Morbid obesity 484 Lbs. 7. Severe hyperkalemia, resolved after HD No further HD. DW RN Subjective Subjective No further SVT . In ICU on vent and alert able to write on the paper. Off pressors. RN at bedside.Couldn't tolerate weaning again. Objective Last 24 Hour Vital Signs Date Time Temp Pulse Resp B/P (MAP) Pulse Ox O2 Delivery O2 Flow Rate FiO2 08/25/17 16:00 49 08/25/17 16:00 98.6 50 20 103/53 100 Mechanical Ventilator 40 08/25/17 16:00 40 08/25/17 15:29 97 26 80 08/25/17 15:00 50 21 109/58 100 Mechanical Ventilator 40 08/25/17 14:00 49 20 104/41 100 Mechanical Ventilator 40 08/25/17 13:00 60 23 97/44 100 Mechanical Ventilator 40 08/25/17 12:30 97 26 80 08/25/17 12:20 97 26 80 08/25/17 12:00 98.7 70 20 114/45 100 Mechanical Ventilator 40 08/25/17 12:00 68 08/25/17 12:00 40 08/25/17 11:07 55 22 80 08/25/17 11:00 54 18 108/44 100 Mechanical Ventilator 40 08/25/17 10:00 49 20 103/49 100 Mechanical Ventilator 40 08/25/17 09:20 63 116/48 08/25/17 09:20 62 08/25/17 09:11 64 20 80 08/25/17 09:00 53 20 116/48 100 Mechanical Ventilator 40 08/25/17 08:00 98.5 58 21 109/56 100 Mechanical Ventilator 40 08/25/17 08:00 40 08/25/17 08:00 53 08/25/17 07:00 56 20 104/46 100 Mechanical Ventilator 40 08/25/17 06:54 57 20 80 08/25/17 06:00 71 19 107/57 100 Mechanical Ventilator 40 08/25/17 05:01 61 20 80 08/25/17 05:00 50 19 125/56 100 Mechanical Ventilator 40 08/25/17 04:00 98.7 47 19 116/57 100 Mechanical Ventilator 40 08/25/17 04:00 40 08/25/17 03:46 47 08/25/17 03:09 46 20 80 08/25/17 03:00 48 19 112/57 100 Mechanical Ventilator 40 08/25/17 02:00 56 20 113/53 100 Mechanical Ventilator 40 08/25/17 01:23 59 20 80 08/25/17 01:00 50 20 113/56 100 Mechanical Ventilator 40 08/25/17 00:13 51 08/25/17 00:00 98.8 54 20 109/56 100 Mechanical Ventilator 40 08/25/17 00:00 40 08/24/17 23:10 60 20 80 08/24/17 23:00 66 20 124/60 99 Mechanical Ventilator 40 08/24/17 22:00 59 16 113/56 99 Mechanical Ventilator 40 08/24/17 21:05 60 20 80 08/24/17 21:00 58 20 114/54 99 Mechanical Ventilator 40 08/24/17 20:52 61 112/53 08/24/17 20:00 40 08/24/17 20:00 98.6 58 20 109/54 98 Mechanical Ventilator 40 08/24/17 19:54 58 08/24/17 19:08 59 20 80 08/24/17 19:00 61 20 110/51 100 Mechanical Ventilator 40 08/24/17 18:00 64 16 110/54 100 Mechanical Ventilator 40 08/24/17 17:29 60 21 80 Intake and Output 08/24/17 08/25/17 18:59 06:59 Intake Total 1230.0 ml 345 ml Output Total 370 ml 685 ml Balance 860.0 ml -340 ml Free Water 50 ml IV Total 935.0 ml 55 ml Tube Feeding 220 ml 240 ml Other 25 ml 50 ml Output Urine Total 370 ml 685 ml Laboratory Tests Test 08/25/17 03:30 White Blood Count 11.0 K/UL (4.8-10.8) H Red Blood Count 3.90 M/UL (4.20-5.40) L Hemoglobin 8.8 G/DL (12.0-16.0) L Hematocrit 31.5 % (37.0-47.0) L Mean Corpuscular Volume 81 FL (80-99) Mean Corpuscular Hemoglobin 22.7 PG (27.0-31.0) L Mean Corpuscular Hemoglobin Concent 28.1 G/DL (32.0-36.0) L Red Cell Distribution Width 18.5 % (11.6-14.8) H Platelet Count 136 K/UL (150-450) L Mean Platelet Volume 7.5 FL (6.5-10.1) Neutrophils (%) (Auto) 52.5 % (45.0-75.0) Lymphocytes (%) (Auto) 27.8 % (20.0-45.0) Monocytes (%) (Auto) 16.0 % (1.0-10.0) H Eosinophils (%) (Auto) 2.8 % (0.0-3.0) Basophils (%) (Auto) 0.9 % (0.0-2.0) Sodium Level 143 MMOL/L (136-145) Potassium Level 3.3 MMOL/L (3.5-5.1) L Chloride Level 102 MMOL/L (98-107) Carbon Dioxide Level 34 MMOL/L (21-32) H Anion Gap 7 mmol/L (5-15) Blood Urea Nitrogen 64 mg/dL (7-18) H Creatinine 2.9 MG/DL (0.55-1.30) H Estimat Glomerular Filtration Rate 20.1 mL/min (>60) Glucose Level 158 MG/DL (74-106) H Uric Acid 9.7 MG/DL (2.6-7.2) H Calcium Level 8.6 MG/DL (8.5-10.1) Phosphorus Level 2.8 MG/DL (2.5-4.9) Magnesium Level 2.2 MG/DL (1.8-2.4) Total Bilirubin 0.9 MG/DL (0.2-1.0) Aspartate Amino Transf (AST/SGOT) 90 U/L (15-37) H Alanine Aminotransferase (ALT/SGPT) 722 U/L (12-78) H Alkaline Phosphatase 86 U/L (46-116) Troponin I 1.311 ng/mL (0.000-0.056) Total Protein 6.7 G/DL (6.4-8.2) Albumin 1.9 G/DL (3.4-5.0) L Globulin 4.8 g/dL Albumin/Globulin Ratio 0.4 (1.0-2.7) L Digoxin Level 0.9 NG/ML (0.9-2.0) Microbiology Date/Time Source Procedure Growth Status 08/23/17 03:30 Sputum Gram Stain - Final Complete 08/23/17 03:30 Sputum Culture - Final Tamia Albicans Usual Upper Respiratory Cassandra Complete Objective HEENT: Orally intubated with OG tube. LUNGS: Decreased breath sounds. CARDIOVASCULAR: Regular S1 and S2 with no gallop. ABDOMEN: Morbidly obese. EXTREMITIES: 2+ pitting edema. DIANDRA CUMMINGS Aug 25, 2017 17:06
[2017-08-25] MEDS: Meropenem 1gm in NS 55ml IVPB SCH (17:26)
--- NOTE | 2017-08-25 18:02 | GI Progress Note ---
Assessment/Plan Problems: (1) Shock liver ICD Codes: K72.00 - Acute and subacute hepatic failure without coma SNOMED: 145908566 (2) Anemia ICD Codes: D64.9 - Anemia, unspecified SNOMED: 154998666 (3) Morbid obesity ICD Codes: E66.01 - Morbid (severe) obesity due to excess calories SNOMED: 359309491, 43785824818380 (4) Multiple organ failure SNOMED: 79460901 (5) Transaminitis ICD Codes: R74.0 - Nonspecific elevation of levels of transaminase and lactic acid dehydrogenase [LDH] SNOMED: 864924465, 654999431 (6) Septic shock ICD Codes: A41.9 - Sepsis, unspecified organism; R65.21 - Severe sepsis with septic shock SNOMED: 27551304 (7) DM2 (diabetes mellitus, type 2) ICD Codes: E11.9 - Type 2 diabetes mellitus without complications SNOMED: 18793802 (8) GERD (gastroesophageal reflux disease) ICD Codes: K21.9 - Gastro-esophageal reflux disease without esophagitis SNOMED: 428039130 Status: progressing Status Narrative Discussed with Dr. Cordero. Assessment/Plan defer GI procedures at this time Continue NGT feeds will consider CTAP if patient continue to has abdominal pain transaminitis due to shock liver >> trend anemia work up OB stool r/o GI bleed monitor H&H, prn transfusions ppi abx fu labs Subjective Subjective limited Objective Last 24 Hour Vital Signs Date Time Temp Pulse Resp B/P (MAP) Pulse Ox O2 Delivery O2 Flow Rate FiO2 08/25/17 17:09 59 26 80 08/25/17 17:00 55 21 112/46 100 Mechanical Ventilator 40 08/25/17 16:00 49 08/25/17 16:00 98.6 50 20 103/53 100 Mechanical Ventilator 40 08/25/17 16:00 40 08/25/17 15:29 97 26 80 08/25/17 15:00 50 21 109/58 100 Mechanical Ventilator 40 08/25/17 14:00 49 20 104/41 100 Mechanical Ventilator 40 08/25/17 13:00 60 23 97/44 100 Mechanical Ventilator 40 08/25/17 12:30 97 26 80 08/25/17 12:20 97 26 80 08/25/17 12:00 98.7 70 20 114/45 100 Mechanical Ventilator 40 08/25/17 12:00 68 08/25/17 12:00 40 08/25/17 11:07 55 22 80 08/25/17 11:00 54 18 108/44 100 Mechanical Ventilator 40 08/25/17 10:00 49 20 103/49 100 Mechanical Ventilator 40 08/25/17 09:20 63 116/48 08/25/17 09:20 62 08/25/17 09:11 64 20 80 08/25/17 09:00 53 20 116/48 100 Mechanical Ventilator 40 08/25/17 08:00 98.5 58 21 109/56 100 Mechanical Ventilator 40 08/25/17 08:00 40 08/25/17 08:00 53 08/25/17 07:00 56 20 104/46 100 Mechanical Ventilator 40 08/25/17 06:54 57 20 80 08/25/17 06:00 71 19 107/57 100 Mechanical Ventilator 40 08/25/17 05:01 61 20 80 08/25/17 05:00 50 19 125/56 100 Mechanical Ventilator 40 08/25/17 04:00 98.7 47 19 116/57 100 Mechanical Ventilator 40 08/25/17 04:00 40 08/25/17 03:46 47 08/25/17 03:09 46 20 80 08/25/17 03:00 48 19 112/57 100 Mechanical Ventilator 40 08/25/17 02:00 56 20 113/53 100 Mechanical Ventilator 40 08/25/17 01:23 59 20 80 08/25/17 01:00 50 20 113/56 100 Mechanical Ventilator 40 08/25/17 00:13 51 08/25/17 00:00 98.8 54 20 109/56 100 Mechanical Ventilator 40 08/25/17 00:00 40 08/24/17 23:10 60 20 80 08/24/17 23:00 66 20 124/60 99 Mechanical Ventilator 40 08/24/17 22:00 59 16 113/56 99 Mechanical Ventilator 40 08/24/17 21:05 60 20 80 08/24/17 21:00 58 20 114/54 99 Mechanical Ventilator 40 08/24/17 20:52 61 112/53 08/24/17 20:00 40 08/24/17 20:00 98.6 58 20 109/54 98 Mechanical Ventilator 40 08/24/17 19:54 58 08/24/17 19:08 59 20 80 08/24/17 19:00 61 20 110/51 100 Mechanical Ventilator 40 Intake and Output 08/24/17 08/25/17 18:59 06:59 Intake Total 1230.0 ml 345 ml Output Total 370 ml 685 ml Balance 860.0 ml -340 ml Free Water 50 ml IV Total 935.0 ml 55 ml Tube Feeding 220 ml 240 ml Other 25 ml 50 ml Output Urine Total 370 ml 685 ml Laboratory Tests Test 08/25/17 03:30 White Blood Count 11.0 K/UL (4.8-10.8) H Red Blood Count 3.90 M/UL (4.20-5.40) L Hemoglobin 8.8 G/DL (12.0-16.0) L Hematocrit 31.5 % (37.0-47.0) L Mean Corpuscular Volume 81 FL (80-99) Mean Corpuscular Hemoglobin 22.7 PG (27.0-31.0) L Mean Corpuscular Hemoglobin Concent 28.1 G/DL (32.0-36.0) L Red Cell Distribution Width 18.5 % (11.6-14.8) H Platelet Count 136 K/UL (150-450) L Mean Platelet Volume 7.5 FL (6.5-10.1) Neutrophils (%) (Auto) 52.5 % (45.0-75.0) Lymphocytes (%) (Auto) 27.8 % (20.0-45.0) Monocytes (%) (Auto) 16.0 % (1.0-10.0) H Eosinophils (%) (Auto) 2.8 % (0.0-3.0) Basophils (%) (Auto) 0.9 % (0.0-2.0) Sodium Level 143 MMOL/L (136-145) Potassium Level 3.3 MMOL/L (3.5-5.1) L Chloride Level 102 MMOL/L (98-107) Carbon Dioxide Level 34 MMOL/L (21-32) H Anion Gap 7 mmol/L (5-15) Blood Urea Nitrogen 64 mg/dL (7-18) H Creatinine 2.9 MG/DL (0.55-1.30) H Estimat Glomerular Filtration Rate 20.1 mL/min (>60) Glucose Level 158 MG/DL (74-106) H Uric Acid 9.7 MG/DL (2.6-7.2) H Calcium Level 8.6 MG/DL (8.5-10.1) Phosphorus Level 2.8 MG/DL (2.5-4.9) Magnesium Level 2.2 MG/DL (1.8-2.4) Total Bilirubin 0.9 MG/DL (0.2-1.0) Aspartate Amino Transf (AST/SGOT) 90 U/L (15-37) H Alanine Aminotransferase (ALT/SGPT) 722 U/L (12-78) H Alkaline Phosphatase 86 U/L (46-116) Troponin I 1.311 ng/mL (0.000-0.056) Total Protein 6.7 G/DL (6.4-8.2) Albumin 1.9 G/DL (3.4-5.0) L Globulin 4.8 g/dL Albumin/Globulin Ratio 0.4 (1.0-2.7) L Digoxin Level 0.9 NG/ML (0.9-2.0) Height (Feet): 5 Height (Inches): 3.00 Weight (Pounds): 488 General Appearance: no apparent distress, alert, morbidly obese Cardiovascular: normal rate Respiratory/Chest: normal breath sounds, no respiratory distress, other - intubated Abdominal Exam: normal bowel sounds, non tender, soft Extremities: non-tender Caren Nixon N.P. Aug 25, 2017 18:02
[2017-08-25] MEDS: Dyna-Hex 2% Top Sol 2oz TOPIC SCH (19:56)
[2017-08-25] MEDS: Atorvastatin 20mg tab GT SCH (21:11)
[2017-08-25] MEDS: Acetaminophen 650mg/20.3ml NG PRN (21:31)
[2017-08-26] VITALS (25 sets, daily range): BP systolic 94–145; BP diastolic 39–106
[2017-08-26] MEDS: Meropenem 1gm in NS 55ml IVPB SCH ×2 (05:50→17:10)
[2017-08-26] MEDS: NovoLOG Insulin Flexpen SUBQ SCH ×4 (06:06→20:37)
[2017-08-26 07:13] LABS: BASOPHILS % (AUTO) 0.9 % (0.0-2.0); EOSINOPHILS % (AUTO) 2.5 % (0.0-3.0); HEMOGLOBIN 8.9 G/DL (12.0-16.0); MEAN CORPUSCULAR VOLUME 81 FL (80-99); MONOCYTES % (AUTO) 13.7 % (1.0-10.0); NEUTROPHILS % (AUTO) 53.9 % (45.0-75.0); PLATELET COUNT 205 K/UL (150-450); RED BLOOD COUNT 3.96 M/UL (4.20-5.40); RED CELL DISTRIBUTION WIDTH 18.3 % (11.6-14.8); WHITE BLOOD COUNT 9.6 K/UL (4.8-10.8)
[2017-08-26 07:16] LABS: ALANINE AMINOTRANSFERASE 482 U/L (12-78); ALBUMIN 1.9 G/DL (3.4-5.0); ALBUMIN/GLOBULIN RATIO 0.4 (1.0-2.7); ALKALINE PHOSPHATASE 85 U/L (46-116); ANION GAP 5 mmol/L (5-15); ASPARTATE AMINO TRANSFERASE 55 U/L (15-37); BILIRUBIN,TOTAL 0.8 MG/DL (0.2-1.0); BLOOD UREA NITROGEN 65 mg/dL (7-18); CALCIUM 8.7 MG/DL (8.5-10.1); CARBON DIOXIDE 35 MMOL/L (21-32); CHLORIDE 104 MMOL/L (98-107); CREATININE 2.5 MG/DL (0.55-1.30); PHOSPHORUS 2.7 MG/DL (2.5-4.9); POTASSIUM 3.3 MMOL/L (3.5-5.1); SODIUM 144 MMOL/L (136-145)
[2017-08-26] MEDS: Azithromycin 250mg tab GT SCH (08:25)
[2017-08-26] MEDS: Heparin 5000 units/ml inj SUBQ SCH ×2 (08:25→20:41)
[2017-08-26] MEDS: Aspirin Baby 81mg GT SCH (08:26)
[2017-08-26] MEDS: Digoxin 0.125mg tab GT SCH (08:26)
[2017-08-26] MEDS: Pantoprazole Inj IV SCH (08:26)
[2017-08-26] MEDS: Metoprolol Tartrate 12.5mg TAB GT SCH (08:27)
--- NOTE | 2017-08-26 09:21 | Cardiac Electrophysiology PN ---
Assessment/Plan Assessment/Plan 1. Non-ST elevation myocardial infarction. Trop peak 16.4, down to 1.9. Echocardiogram EF 75%. No chest pain On Aspirin, Lipitor and Lopressor 12.5 bid 2. Recurrent SVT at rate 200 bpm. Did not terminate with 6 of adenosine but transiently converted with 12. Finally converted with the second dose of digoxin. Continue Lopressor 12.5 bid and Digoxin 0.125 daily. 3. Respiratory failure, on the ventilator. Failed weaning yesterday.Weaning today again 4. Accelerated Junctional rhythm. No further, Watch on Lopressor 5. S/P Septic shock. On broad-spectrum intravenous antibiotic and off pressors 6. Morbid obesity 484 Lbs. 7. Severe hyperkalemia, resolved after HD No further HD. ROLLY RN Subjective Subjective No further SVT or fib. In ICU on vent and alert able to write on the paper. Off pressors. RN at bedside.Asking for bedside Fan. Objective Last 24 Hour Vital Signs Date Time Temp Pulse Resp B/P (MAP) Pulse Ox O2 Delivery O2 Flow Rate FiO2 08/26/17 08:27 51 107/56 08/26/17 08:26 51 08/26/17 08:00 98.6 51 15 107/62 100 Mechanical Ventilator 40 08/26/17 08:00 40 08/26/17 07:11 30 08/26/17 07:10 54 26 40 08/26/17 07:00 45 19 127/57 100 Mechanical Ventilator 40 08/26/17 06:00 46 19 119/43 100 Mechanical Ventilator 40 08/26/17 05:00 47 15 128/106 100 Mechanical Ventilator 40 08/26/17 04:30 65 26 40 08/26/17 04:00 98.6 58 18 117/72 100 Mechanical Ventilator 40 08/26/17 04:00 45 08/26/17 04:00 40 08/26/17 03:30 46 26 40 08/26/17 03:00 51 19 135/47 100 Mechanical Ventilator 40 08/26/17 02:00 52 19 132/45 100 Mechanical Ventilator 40 08/26/17 01:30 43 26 40 08/26/17 01:00 45 19 120/53 100 Mechanical Ventilator 40 08/26/17 00:00 40 08/26/17 00:00 98.8 47 20 116/57 100 Mechanical Ventilator 40 08/26/17 00:00 46 08/25/17 23:30 48 26 40 08/25/17 23:00 54 19 101/50 100 Mechanical Ventilator 40 08/25/17 22:01 98.6 08/25/17 22:00 49 19 110/46 100 Mechanical Ventilator 40 08/25/17 21:24 52 21 40 08/25/17 21:00 51 110/47 08/25/17 21:00 50 19 109/46 100 Mechanical Ventilator 40 08/25/17 20:00 98.6 50 20 103/53 100 Mechanical Ventilator 40 08/25/17 20:00 57 08/25/17 20:00 40 08/25/17 19:30 51 26 40 08/25/17 19:00 56 19 100/31 100 Mechanical Ventilator 40 08/25/17 18:00 53 26 100/47 100 Mechanical Ventilator 40 08/25/17 17:09 59 26 80 08/25/17 17:00 55 21 112/46 100 Mechanical Ventilator 40 08/25/17 16:00 49 08/25/17 16:00 98.6 50 20 103/53 100 Mechanical Ventilator 40 08/25/17 16:00 40 08/25/17 15:29 97 26 80 08/25/17 15:00 50 21 109/58 100 Mechanical Ventilator 40 08/25/17 14:00 49 20 104/41 100 Mechanical Ventilator 40 08/25/17 13:00 60 23 97/44 100 Mechanical Ventilator 40 08/25/17 12:30 97 26 80 08/25/17 12:20 97 26 80 08/25/17 12:00 98.7 70 20 114/45 100 Mechanical Ventilator 40 08/25/17 12:00 68 08/25/17 12:00 40 08/25/17 11:07 55 22 80 08/25/17 11:00 54 18 108/44 100 Mechanical Ventilator 40 08/25/17 10:00 49 20 103/49 100 Mechanical Ventilator 40 08/25/17 09:20 63 116/48 08/25/17 09:20 62 Intake and Output 08/25/17 08/26/17 19:00 07:00 Intake Total 365 ml 435 ml Output Total 1615 ml 1265 ml Balance -1250 ml -830 ml IV Total 55 ml 55 ml Tube Feeding 310 ml 330 ml Other 50 ml Output Urine Total 1615 ml 1265 ml Laboratory Tests Test 08/26/17 06:00 White Blood Count 9.6 K/UL (4.8-10.8) Red Blood Count 3.96 M/UL (4.20-5.40) L Hemoglobin 8.9 G/DL (12.0-16.0) L Hematocrit 32.0 % (37.0-47.0) L Mean Corpuscular Volume 81 FL (80-99) Mean Corpuscular Hemoglobin 22.6 PG (27.0-31.0) L Mean Corpuscular Hemoglobin Concent 27.9 G/DL (32.0-36.0) L Red Cell Distribution Width 18.3 % (11.6-14.8) H Platelet Count 205 K/UL (150-450) # Mean Platelet Volume 7.8 FL (6.5-10.1) Neutrophils (%) (Auto) 53.9 % (45.0-75.0) Lymphocytes (%) (Auto) 29.0 % (20.0-45.0) Monocytes (%) (Auto) 13.7 % (1.0-10.0) H Eosinophils (%) (Auto) 2.5 % (0.0-3.0) Basophils (%) (Auto) 0.9 % (0.0-2.0) Sodium Level 144 MMOL/L (136-145) Potassium Level 3.3 MMOL/L (3.5-5.1) L Chloride Level 104 MMOL/L (98-107) Carbon Dioxide Level 35 MMOL/L (21-32) H Anion Gap 5 mmol/L (5-15) Blood Urea Nitrogen 65 mg/dL (7-18) H Creatinine 2.5 MG/DL (0.55-1.30) H Estimat Glomerular Filtration Rate 23.9 mL/min (>60) Glucose Level 174 MG/DL (74-106) H Uric Acid 10.4 MG/DL (2.6-7.2) H Calcium Level 8.7 MG/DL (8.5-10.1) Phosphorus Level 2.7 MG/DL (2.5-4.9) Magnesium Level 2.1 MG/DL (1.8-2.4) Total Bilirubin 0.8 MG/DL (0.2-1.0) Aspartate Amino Transf (AST/SGOT) 55 U/L (15-37) H Alanine Aminotransferase (ALT/SGPT) 482 U/L (12-78) H Alkaline Phosphatase 85 U/L (46-116) Troponin I 0.891 ng/mL (0.000-0.056) C-Reactive Protein, Quantitative 3.2 mg/dL (0.00-0.90) H Pro-B-Type Natriuretic Peptide 1138 pg/mL (0-125) H Total Protein 6.6 G/DL (6.4-8.2) Albumin 1.9 G/DL (3.4-5.0) L Globulin 4.7 g/dL Albumin/Globulin Ratio 0.4 (1.0-2.7) L Objective HEENT: Orally intubated with OG tube. LUNGS: Decreased breath sounds. CARDIOVASCULAR: Regular S1 and S2 with no gallop. ABDOMEN: Morbidly obese. EXTREMITIES: 2+ pitting edema. DIANDRA CUMMINGS Aug 26, 2017 09:21
[2017-08-26] MEDS ORDERED: Potassium Chloride 40 MEQ in Sodium Chloride 500ML 550 ML IVPB ONE (10:00)
--- NOTE | 2017-08-26 11:33 | Diagnostic Imaging Report ---
Indication: Dyspnea Comparison: 08/25/2017 A single view chest radiograph was obtained. Findings: Tubes and lines are stable. Cardiomegaly is stable. Pulmonary vascular congestion or interstitial edema is stable. IMPRESSION: Moderate CHF unchanged
--- NOTE | 2017-08-26 11:42 | Pulmonolgy Critical Care Note ---
Critical Care - Asmt/Plan Problems: (1) Acute respiratory failure with hypoxia and hypercapnia (2) Acute renal failure (ARF) (3) Non-STEMI (non-ST elevated myocardial infarction) (4) Septic shock (5) Acute toxic metabolic encephalopathy (6) DM2 (diabetes mellitus, type 2) (7) Lactic acid acidosis Respiratory: monitor respiratory rate, adjust FIO2 Cardiac: continue pressors, continue to monitor HR/BP Renal: F/U I&O Infectious Disease: check cultures, continue antibiotics Gastrointestinal: hold feedings Endocrine: check TSH, check HgA1C, continue sliding scale insulin Hematologic: transfuse if hgb<8.5 Neurologic: PRN Ativan, keep patient comfortable Affect: PRN ativan Notes 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: 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, 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 with: nurses, consultants, vocational case managerpromotions manager - Objective Last 24 Hour Vital Signs Date Time Temp Pulse Resp B/P (MAP) Pulse Ox O2 Delivery O2 Flow Rate FiO2 08/26/17 11:19 52 16 116/54 99 Mechanical Ventilator 40 08/26/17 11:00 51 16 116/54 100 Mechanical Ventilator 40 08/26/17 10:46 55 26 30 08/26/17 10:00 46 16 145/53 100 Mechanical Ventilator 40 08/26/17 09:20 53 25 30 08/26/17 09:00 48 14 132/58 100 Mechanical Ventilator 40 08/26/17 08:27 51 107/56 08/26/17 08:26 51 08/26/17 08:00 98.6 51 15 107/62 100 Mechanical Ventilator 40 08/26/17 08:00 48 08/26/17 08:00 40 08/26/17 07:11 30 08/26/17 07:10 54 26 40 08/26/17 07:00 45 19 127/57 100 Mechanical Ventilator 40 08/26/17 06:00 46 19 119/43 100 Mechanical Ventilator 40 08/26/17 05:00 47 15 128/106 100 Mechanical Ventilator 40 08/26/17 04:30 65 26 40 08/26/17 04:00 98.6 58 18 117/72 100 Mechanical Ventilator 40 08/26/17 04:00 45 08/26/17 04:00 40 08/26/17 03:30 46 26 40 08/26/17 03:00 51 19 135/47 100 Mechanical Ventilator 40 08/26/17 02:00 52 19 132/45 100 Mechanical Ventilator 40 08/26/17 01:30 43 26 40 08/26/17 01:00 45 19 120/53 100 Mechanical Ventilator 40 08/26/17 00:00 40 08/26/17 00:00 98.8 47 20 116/57 100 Mechanical Ventilator 40 08/26/17 00:00 46 08/25/17 23:30 48 26 40 08/25/17 23:00 54 19 101/50 100 Mechanical Ventilator 40 08/25/17 22:01 98.6 08/25/17 22:00 49 19 110/46 100 Mechanical Ventilator 40 08/25/17 21:24 52 21 40 08/25/17 21:00 51 110/47 08/25/17 21:00 50 19 109/46 100 Mechanical Ventilator 40 08/25/17 20:00 98.6 50 20 103/53 100 Mechanical Ventilator 40 08/25/17 20:00 57 08/25/17 20:00 40 08/25/17 19:30 51 26 40 08/25/17 19:00 56 19 100/31 100 Mechanical Ventilator 40 08/25/17 18:00 53 26 100/47 100 Mechanical Ventilator 40 08/25/17 17:09 59 26 80 08/25/17 17:00 55 21 112/46 100 Mechanical Ventilator 40 08/25/17 16:00 49 08/25/17 16:00 98.6 50 20 103/53 100 Mechanical Ventilator 40 08/25/17 16:00 40 08/25/17 15:29 97 26 80 08/25/17 15:00 50 21 109/58 100 Mechanical Ventilator 40 08/25/17 14:00 49 20 104/41 100 Mechanical Ventilator 40 08/25/17 13:00 60 23 97/44 100 Mechanical Ventilator 40 08/25/17 12:30 97 26 80 08/25/17 12:20 97 26 80 08/25/17 12:00 98.7 70 20 114/45 100 Mechanical Ventilator 40 08/25/17 12:00 68 08/25/17 12:00 40 Status: awake HEENT: atraumatic Neck: full ROM Lungs: clear Heart: HR/BP stable, regular Abdomen: non-tender, active bowel sounds, feeding tube Extremities: no C/C/E Decubiti: location, stage Accucheck: 187 Critical Care - Subjective ROS Limited/Unobtainable: No - 7 ICU Day: 7 Intubation Day: 7 Condition: critical EKG Rhythm: Sinus Rhythm FI02: 40 Vent Support Breath Rate: 26 Vent Support Mode: AC Vent Tidal Volume: 700 Sputum Amount: Small PEEP: 5.0 PIP: 49 Fluids: NORA Tube Feeding Amount: 30 I&O: Intake and Output 08/25/17 08/26/17 19:00 07:00 Intake Total 365 ml 435 ml Output Total 1615 ml 1265 ml Balance -1250 ml -830 ml IV Total 55 ml 55 ml Tube Feeding 310 ml 330 ml Other 50 ml Output Urine Total 1615 ml 1265 ml CXR: less edema, ET in good position ET-Tube: 8.0 ET Position: 24 Labs: Laboratory Tests Test 08/26/17 06:00 White Blood Count 9.6 K/UL (4.8-10.8) Red Blood Count 3.96 M/UL (4.20-5.40) L Hemoglobin 8.9 G/DL (12.0-16.0) L Hematocrit 32.0 % (37.0-47.0) L Mean Corpuscular Volume 81 FL (80-99) Mean Corpuscular Hemoglobin 22.6 PG (27.0-31.0) L Mean Corpuscular Hemoglobin Concent 27.9 G/DL (32.0-36.0) L Red Cell Distribution Width 18.3 % (11.6-14.8) H Platelet Count 205 K/UL (150-450) # Mean Platelet Volume 7.8 FL (6.5-10.1) Neutrophils (%) (Auto) 53.9 % (45.0-75.0) Lymphocytes (%) (Auto) 29.0 % (20.0-45.0) Monocytes (%) (Auto) 13.7 % (1.0-10.0) H Eosinophils (%) (Auto) 2.5 % (0.0-3.0) Basophils (%) (Auto) 0.9 % (0.0-2.0) Sodium Level 144 MMOL/L (136-145) Potassium Level 3.3 MMOL/L (3.5-5.1) L Chloride Level 104 MMOL/L (98-107) Carbon Dioxide Level 35 MMOL/L (21-32) H Anion Gap 5 mmol/L (5-15) Blood Urea Nitrogen 65 mg/dL (7-18) H Creatinine 2.5 MG/DL (0.55-1.30) H Estimat Glomerular Filtration Rate 23.9 mL/min (>60) Glucose Level 174 MG/DL (74-106) H Uric Acid 10.4 MG/DL (2.6-7.2) H Calcium Level 8.7 MG/DL (8.5-10.1) Phosphorus Level 2.7 MG/DL (2.5-4.9) Magnesium Level 2.1 MG/DL (1.8-2.4) Total Bilirubin 0.8 MG/DL (0.2-1.0) Aspartate Amino Transf (AST/SGOT) 55 U/L (15-37) H Alanine Aminotransferase (ALT/SGPT) 482 U/L (12-78) H Alkaline Phosphatase 85 U/L (46-116) Troponin I 0.891 ng/mL (0.000-0.056) C-Reactive Protein, Quantitative 3.2 mg/dL (0.00-0.90) H Pro-B-Type Natriuretic Peptide 1138 pg/mL (0-125) H Total Protein 6.6 G/DL (6.4-8.2) Albumin 1.9 G/DL (3.4-5.0) L Globulin 4.7 g/dL Albumin/Globulin Ratio 0.4 (1.0-2.7) L Random Vancomycin Level 11.6 ug/mL DOMONIQUE DOBBS Aug 26, 2017 11:42
--- NOTE | 2017-08-26 12:15 | Nephrology Progress Note ---
Assessment/Plan Problem List: (1) Acute renal failure (ARF) (2) Acute respiratory acidosis (3) Lactic acid acidosis (4) Septic shock (5) Acute respiratory failure with hypoxia and hypercapnia (6) Elevated troponin I level Assessment acute renal failure, Cr leveling Hyperkalemia resolved sepsis, high Lactic , acidosis low BP resp failure obese rapid rise in Troponin- now on way down Plan PRN diuretics, zaroxyllin hold Dig and Lopressor for low HR dialysed 08/19 redialysed 08/22 Hold dialysis for now K , Mg, Phos supplements as needed per cardiology and ID and pulm discussed with ID monitor renal parameters and dialysis as needed Subjective ROS Limited/Unobtainable: Yes Objective Objective Last 24 Hour Vital Signs Date Time Temp Pulse Resp B/P (MAP) Pulse Ox O2 Delivery O2 Flow Rate FiO2 08/26/17 11:19 52 16 116/54 99 Mechanical Ventilator 40 08/26/17 11:00 51 16 116/54 100 Mechanical Ventilator 40 08/26/17 10:46 55 26 30 08/26/17 10:00 46 16 145/53 100 Mechanical Ventilator 40 08/26/17 09:20 99 08/26/17 09:20 53 25 30 08/26/17 09:00 48 14 132/58 100 Mechanical Ventilator 40 08/26/17 08:27 51 107/56 08/26/17 08:26 51 08/26/17 08:00 98.6 51 15 107/62 100 Mechanical Ventilator 40 08/26/17 08:00 48 08/26/17 08:00 40 08/26/17 07:11 30 08/26/17 07:10 54 26 40 08/26/17 07:00 45 19 127/57 100 Mechanical Ventilator 40 08/26/17 06:00 46 19 119/43 100 Mechanical Ventilator 40 08/26/17 05:00 47 15 128/106 100 Mechanical Ventilator 40 08/26/17 04:30 65 26 40 08/26/17 04:00 98.6 58 18 117/72 100 Mechanical Ventilator 40 08/26/17 04:00 45 08/26/17 04:00 40 08/26/17 03:30 46 26 40 08/26/17 03:00 51 19 135/47 100 Mechanical Ventilator 40 08/26/17 02:00 52 19 132/45 100 Mechanical Ventilator 40 08/26/17 01:30 43 26 40 08/26/17 01:00 45 19 120/53 100 Mechanical Ventilator 40 08/26/17 00:00 40 08/26/17 00:00 98.8 47 20 116/57 100 Mechanical Ventilator 40 08/26/17 00:00 46 08/25/17 23:30 48 26 40 08/25/17 23:00 54 19 101/50 100 Mechanical Ventilator 40 08/25/17 22:01 98.6 08/25/17 22:00 49 19 110/46 100 Mechanical Ventilator 40 08/25/17 21:24 52 21 40 08/25/17 21:00 51 110/47 08/25/17 21:00 50 19 109/46 100 Mechanical Ventilator 40 08/25/17 20:00 98.6 50 20 103/53 100 Mechanical Ventilator 40 08/25/17 20:00 57 08/25/17 20:00 40 08/25/17 19:30 51 26 40 08/25/17 19:00 56 19 100/31 100 Mechanical Ventilator 40 08/25/17 18:00 53 26 100/47 100 Mechanical Ventilator 40 08/25/17 17:09 59 26 80 08/25/17 17:00 55 21 112/46 100 Mechanical Ventilator 40 08/25/17 16:00 49 08/25/17 16:00 98.6 50 20 103/53 100 Mechanical Ventilator 40 08/25/17 16:00 40 08/25/17 15:29 97 26 80 08/25/17 15:00 50 21 109/58 100 Mechanical Ventilator 40 08/25/17 14:00 49 20 104/41 100 Mechanical Ventilator 40 08/25/17 13:00 60 23 97/44 100 Mechanical Ventilator 40 08/25/17 12:30 97 26 80 08/25/17 12:20 97 26 80 Intake and Output 08/25/17 08/26/17 19:00 07:00 Intake Total 365 ml 435 ml Output Total 1615 ml 1265 ml Balance -1250 ml -830 ml IV Total 55 ml 55 ml Tube Feeding 310 ml 330 ml Other 50 ml Output Urine Total 1615 ml 1265 ml Laboratory Tests 08/26/17 06:00: White Blood Count 9.6, Red Blood Count 3.96L, Hemoglobin 8.9L, Hematocrit 32.0L , Mean Corpuscular Volume 81, Mean Corpuscular Hemoglobin 22.6L, Mean Corpuscular Hemoglobin Concent 27.9L, Red Cell Distribution Width 18.3H, Platelet Count 205#, Mean Platelet Volume 7.8, Neutrophils (%) (Auto) 53.9, Lymphocytes (%) (Auto) 29.0, Monocytes (%) (Auto) 13.7H, Eosinophils (%) (Auto) 2.5, Basophils (%) (Auto) 0.9, Sodium Level 144, Potassium Level 3.3L, Chloride Level 104, Carbon Dioxide Level 35H, Anion Gap 5, Blood Urea Nitrogen 65H, Creatinine 2.5H, Estimat Glomerular Filtration Rate 23.9, Glucose Level 174H, Uric Acid 10.4H, Calcium Level 8.7, Phosphorus Level 2.7, Magnesium Level 2.1, Total Bilirubin 0.8, Aspartate Amino Transf (AST/SGOT) 55H, Alanine Aminotransferase (ALT/SGPT) 482H, Alkaline Phosphatase 85, Troponin I 0.891H, C- Reactive Protein, Quantitative 3.2H, Pro-B-Type Natriuretic Peptide 1138H, Total Protein 6.6, Albumin 1.9L, Globulin 4.7, Albumin/Globulin Ratio 0.4L, Random Vancomycin Level 11.6 Height (Feet): 5 Height (Inches): 3.00 Weight (Pounds): 487 General Appearance: other - intubated Cardiovascular: bradycardia Respiratory/Chest: decreased breath sounds Abdomen: soft AGUSTIN CONTRERAS Aug 26, 2017 12:15
--- NOTE | 2017-08-26 12:51 | GI Progress Note ---
Assessment/Plan Problems: (1) Shock liver ICD Codes: K72.00 - Acute and subacute hepatic failure without coma SNOMED: 334286475 (2) Anemia ICD Codes: D64.9 - Anemia, unspecified SNOMED: 659352017 (3) Morbid obesity ICD Codes: E66.01 - Morbid (severe) obesity due to excess calories SNOMED: 553139510, 33456552631967 (4) Multiple organ failure SNOMED: 39859285 (5) Transaminitis ICD Codes: R74.0 - Nonspecific elevation of levels of transaminase and lactic acid dehydrogenase [LDH] SNOMED: 745239759, 977877971 (6) Septic shock ICD Codes: A41.9 - Sepsis, unspecified organism; R65.21 - Severe sepsis with septic shock SNOMED: 47189369 (7) DM2 (diabetes mellitus, type 2) ICD Codes: E11.9 - Type 2 diabetes mellitus without complications SNOMED: 54518148 (8) GERD (gastroesophageal reflux disease) ICD Codes: K21.9 - Gastro-esophageal reflux disease without esophagitis SNOMED: 139344503 Status: progressing Status Narrative Discussed with Dr. Cordero. Assessment/Plan defer GI procedures at this time, trial 02 ween today. Continue NGT feeds will consider CTAP if patient continue to has abdominal pain transaminitis due to shock liver >> down trending anemia work up OB stool r/o GI bleed monitor H&H, prn transfusions ppi abx fu labs Subjective Subjective limited Objective Last 24 Hour Vital Signs Date Time Temp Pulse Resp B/P (MAP) Pulse Ox O2 Delivery O2 Flow Rate FiO2 08/26/17 12:00 40 08/26/17 12:00 98.7 52 16 131/56 99 Mechanical Ventilator 40 08/26/17 12:00 52 08/26/17 11:19 52 16 116/54 99 Mechanical Ventilator 40 08/26/17 11:00 51 16 116/54 100 Mechanical Ventilator 40 08/26/17 10:46 55 26 30 08/26/17 10:00 46 16 145/53 100 Mechanical Ventilator 40 08/26/17 09:20 99 08/26/17 09:20 53 25 30 08/26/17 09:00 48 14 132/58 100 Mechanical Ventilator 40 08/26/17 08:27 51 107/56 08/26/17 08:26 51 1/17/18 08:00 98.6 51 15 107/62 100 Mechanical Ventilator 40 08/26/17 08:00 48 08/26/17 08:00 40 08/26/17 07:11 30 08/26/17 07:10 54 26 40 08/26/17 07:00 45 19 127/57 100 Mechanical Ventilator 40 08/26/17 06:00 46 19 119/43 100 Mechanical Ventilator 40 08/26/17 05:00 47 15 128/106 100 Mechanical Ventilator 40 08/26/17 04:30 65 26 40 08/26/17 04:00 98.6 58 18 117/72 100 Mechanical Ventilator 40 08/26/17 04:00 45 08/26/17 04:00 40 08/26/17 03:30 46 26 40 08/26/17 03:00 51 19 135/47 100 Mechanical Ventilator 40 08/26/17 02:00 52 19 132/45 100 Mechanical Ventilator 40 08/26/17 01:30 43 26 40 08/26/17 01:00 45 19 120/53 100 Mechanical Ventilator 40 08/26/17 00:00 40 08/26/17 00:00 98.8 47 20 116/57 100 Mechanical Ventilator 40 08/26/17 00:00 46 08/25/17 23:30 48 26 40 08/25/17 23:00 54 19 101/50 100 Mechanical Ventilator 40 08/25/17 22:01 98.6 08/25/17 22:00 49 19 110/46 100 Mechanical Ventilator 40 08/25/17 21:24 52 21 40 08/25/17 21:00 51 110/47 08/25/17 21:00 50 19 109/46 100 Mechanical Ventilator 40 08/25/17 20:00 98.6 50 20 103/53 100 Mechanical Ventilator 40 08/25/17 20:00 57 08/25/17 20:00 40 08/25/17 19:30 51 26 40 08/25/17 19:00 56 19 100/31 100 Mechanical Ventilator 40 08/25/17 18:00 53 26 100/47 100 Mechanical Ventilator 40 08/25/17 17:09 59 26 80 18 17:00 55 21 112/46 100 Mechanical Ventilator 40 08/25/17 16:00 49 08/25/17 16:00 98.6 50 20 103/53 100 Mechanical Ventilator 40 08/25/17 16:00 40 08/25/17 15:29 97 26 80 08/25/17 15:00 50 21 109/58 100 Mechanical Ventilator 40 08/25/17 14:00 49 20 104/41 100 Mechanical Ventilator 40 08/25/17 13:00 60 23 97/44 100 Mechanical Ventilator 40 Intake and Output 08/25/17 08/26/17 19:00 07:00 Intake Total 365 ml 435 ml Output Total 1615 ml 1265 ml Balance -1250 ml -830 ml IV Total 55 ml 55 ml Tube Feeding 310 ml 330 ml Other 50 ml Output Urine Total 1615 ml 1265 ml Laboratory Tests Test 08/26/17 06:00 White Blood Count 9.6 K/UL (4.8-10.8) Red Blood Count 3.96 M/UL (4.20-5.40) L Hemoglobin 8.9 G/DL (12.0-16.0) L Hematocrit 32.0 % (37.0-47.0) L Mean Corpuscular Volume 81 FL (80-99) Mean Corpuscular Hemoglobin 22.6 PG (27.0-31.0) L Mean Corpuscular Hemoglobin Concent 27.9 G/DL (32.0-36.0) L Red Cell Distribution Width 18.3 % (11.6-14.8) H Platelet Count 205 K/UL (150-450) # Mean Platelet Volume 7.8 FL (6.5-10.1) Neutrophils (%) (Auto) 53.9 % (45.0-75.0) Lymphocytes (%) (Auto) 29.0 % (20.0-45.0) Monocytes (%) (Auto) 13.7 % (1.0-10.0) H Eosinophils (%) (Auto) 2.5 % (0.0-3.0) Basophils (%) (Auto) 0.9 % (0.0-2.0) Sodium Level 144 MMOL/L (136-145) Potassium Level 3.3 MMOL/L (3.5-5.1) L Chloride Level 104 MMOL/L (98-107) Carbon Dioxide Level 35 MMOL/L (21-32) H Anion Gap 5 mmol/L (5-15) Blood Urea Nitrogen 65 mg/dL (7-18) H Creatinine 2.5 MG/DL (0.55-1.30) H Estimat Glomerular Filtration Rate 23.9 mL/min (>60) Glucose Level 174 MG/DL (74-106) H Uric Acid 10.4 MG/DL (2.6-7.2) H Calcium Level 8.7 MG/DL (8.5-10.1) Phosphorus Level 2.7 MG/DL (2.5-4.9) Magnesium Level 2.1 MG/DL (1.8-2.4) Total Bilirubin 0.8 MG/DL (0.2-1.0) Aspartate Amino Transf (AST/SGOT) 55 U/L (15-37) H Alanine Aminotransferase (ALT/SGPT) 482 U/L (12-78) H Alkaline Phosphatase 85 U/L (46-116) Troponin I 0.891 ng/mL (0.000-0.056) C-Reactive Protein, Quantitative 3.2 mg/dL (0.00-0.90) H Pro-B-Type Natriuretic Peptide 1138 pg/mL (0-125) H Total Protein 6.6 G/DL (6.4-8.2) Albumin 1.9 G/DL (3.4-5.0) L Globulin 4.7 g/dL Albumin/Globulin Ratio 0.4 (1.0-2.7) L Random Vancomycin Level 11.6 ug/mL Height (Feet): 5 Height (Inches): 3.00 Weight (Pounds): 487 General Appearance: no apparent distress, alert, morbidly obese Cardiovascular: normal rate Respiratory/Chest: normal breath sounds, no respiratory distress, other - mech vent Abdominal Exam: normal bowel sounds, non tender, soft Extremities: non-tender Caren Nixon N.P. Aug 26, 2017 12:51
--- NOTE | 2017-08-26 12:54 | General Progress Note ---
Assessment/Plan Problem List: (1) SVT (supraventricular tachycardia) ICD Codes: I47.1 - Supraventricular tachycardia SNOMED: 6813743 (2) Acute respiratory failure with hypoxia and hypercapnia ICD Codes: J96.01 - Acute respiratory failure with hypoxia; J96.02 - Acute respiratory failure with hypercapnia SNOMED: 88592630, 04977461, 684539942 (3) Septic shock ICD Codes: A41.9 - Sepsis, unspecified organism; R65.21 - Severe sepsis with septic shock SNOMED: 35718808 (4) KASHIF (acute kidney injury) ICD Codes: N17.9 - Acute kidney failure, unspecified SNOMED: 97181914 (5) Lactic acid acidosis ICD Codes: E87.2 - Acidosis SNOMED: 65895989 (6) Hyperkalemia ICD Codes: E87.5 - Hyperkalemia; J96.02 - Acute respiratory failure with hypercapnia SNOMED: 83898325, 61320723, 734963992 (7) Acute toxic metabolic encephalopathy (8) Shock liver ICD Codes: K72.00 - Acute and subacute hepatic failure without coma SNOMED: 463834028 (9) Non-STEMI (non-ST elevated myocardial infarction) ICD Codes: I21.4 - Non-ST elevation (NSTEMI) myocardial infarction; J96.02 - Acute respiratory failure with hypercapnia SNOMED: 939706856, 85960675, 959068302 (10) DM2 (diabetes mellitus, type 2) ICD Codes: E11.9 - Type 2 diabetes mellitus without complications SNOMED: 27871414 (11) Asthma ICD Codes: J45.909 - Unspecified asthma, uncomplicated SNOMED: 153159188 (12) GERD (gastroesophageal reflux disease) ICD Codes: K21.9 - Gastro-esophageal reflux disease without esophagitis SNOMED: 328772541 Status: stable Assessment/Plan Cont ICU care Pulmonology, Nephrology, GI, ID, Cardiology consulted Empiric vanco, meropenem and azithro per ID F/u cultures Cont on vent and wean as tolerated--> possible extubation today per pulm Daily SBTs Now off presors Arterial line placed 08/20/17 Trend lactate--downtrending Trend trop/EKG--downtrending ASA, statin F/u ECHO--EF 70%, grade 1 diastolic dysfcn, LVH Cont on MTP per cardiology; digoxin d/c'd HD on hold per renal as Cr improving. Last HD 08/22. Trend BMP closely s/p mucomyst IV for shock liver/hepatitis per GI Trend LFTs--downtrending Cont tube feeds via NGT PPI Pain control, supportive care, bowel regimen DVT Prophylaxis: HSQ Code Status: Full Hospital Classification Declaration: Based on this initial evaluation, and depending on the patient's clinical course, I anticipate that this patient will require hospitalization for 4-5 days for acute respiratory failure, septic shock and close respiratory/hemodynamic monitoring. At the time of my involvement, the patient's condition was critical with high potential for and/or physiologic deterioration secondary to acute respiratory failure, septic shock, shock liver, KASHIF as delineated in the note above. On the above date of service, I spent a total of 36 minutes in the ICU evaluating, managing, and providing critical care services to this patient, including time spent documenting these activities, counseling patient/family, and coordinating care. Critical care services performed include: Telemetry Review Hemodynamic measurement interpretation Laboratory data review and interpretation Ventilator setting review, management, and adjustment Discussion of care plans with patient, family, and/or surrogate decision makers Discussion of patient's care with primary medical team, surgical team, and/or consulting service Decision to obtain further radiologic evaluation, after consideration of risk/ benefit ratio Decision to perform invasive procedure, after consideration of risk/benefit ratio Review of most recent microbiology results with assessment and modification of antimicrobial coverage Discussion of patient's code status and further advancement towards the ultimate goals of care Plan outlined above discussed with patient/family, RIM ROLLER SETTER, ICU team, and involved physicians/consultants. D/w ID re abx. D/w pulm re SBT. D/w renal re need for HD. Time of note may not reflect time of encounter. Subjective Date patient seen: Aug 26, 2017 Time patient seen: 12:54 ROS Limited/Unobtainable: No Allergies: Coded Allergies: No Known Allergies (Unverified , 06/01/17) Subjective No acute o/n events Off pressors now Tolerating SBT. Possible plan for extubation today Pt intubated, awake, alert, responding/asking questions by writing Denies pain Objective Last 24 Hour Vital Signs Date Time Temp Pulse Resp B/P (MAP) Pulse Ox O2 Delivery O2 Flow Rate FiO2 08/26/17 12:00 40 08/26/17 12:00 98.7 52 16 131/56 99 Mechanical Ventilator 40 08/26/17 12:00 52 08/26/17 11:19 52 16 116/54 99 Mechanical Ventilator 40 08/26/17 11:00 51 16 116/54 100 Mechanical Ventilator 40 08/26/17 10:46 55 26 30 08/26/17 10:00 46 16 145/53 100 Mechanical Ventilator 40 08/26/17 09:20 99 08/26/17 09:20 53 25 30 08/26/17 09:00 48 14 132/58 100 Mechanical Ventilator 40 08/26/17 08:27 51 107/56 08/26/17 08:26 51 08/26/17 08:00 98.6 51 15 107/62 100 Mechanical Ventilator 40 08/26/17 08:00 48 08/26/17 08:00 40 08/26/17 07:11 30 08/26/17 07:10 54 26 40 08/26/17 07:00 45 19 127/57 100 Mechanical Ventilator 40 08/26/17 06:00 46 19 119/43 100 Mechanical Ventilator 40 08/26/17 05:00 47 15 128/106 100 Mechanical Ventilator 40 08/26/17 04:30 65 26 40 08/26/17 04:00 98.6 58 18 117/72 100 Mechanical Ventilator 40 08/26/17 04:00 45 08/26/17 04:00 40 08/26/17 03:30 46 26 40 08/26/17 03:00 51 19 135/47 100 Mechanical Ventilator 40 08/26/17 02:00 52 19 132/45 100 Mechanical Ventilator 40 08/26/17 01:30 43 26 40 08/26/17 01:00 45 19 120/53 100 Mechanical Ventilator 40 08/26/17 00:00 40 08/26/17 00:00 98.8 47 20 116/57 100 Mechanical Ventilator 40 08/26/17 00:00 46 08/25/17 23:30 48 26 40 08/25/17 23:00 54 19 101/50 100 Mechanical Ventilator 40 08/25/17 22:01 98.6 08/25/17 22:00 49 19 110/46 100 Mechanical Ventilator 40 08/25/17 21:24 52 21 40 08/25/17 21:00 51 110/47 08/25/17 21:00 50 19 109/46 100 Mechanical Ventilator 40 08/25/17 20:00 98.6 50 20 103/53 100 Mechanical Ventilator 40 08/25/17 20:00 57 08/25/17 20:00 40 08/25/17 19:30 51 26 40 08/25/17 19:00 56 19 100/31 100 Mechanical Ventilator 40 08/25/17 18:00 53 26 100/47 100 Mechanical Ventilator 40 08/25/17 17:09 59 26 80 08/25/17 17:00 55 21 112/46 100 Mechanical Ventilator 40 08/25/17 16:00 49 08/25/17 16:00 98.6 50 20 103/53 100 Mechanical Ventilator 40 08/25/17 16:00 40 08/25/17 15:29 97 26 80 08/25/17 15:00 50 21 109/58 100 Mechanical Ventilator 40 08/25/17 14:00 49 20 104/41 100 Mechanical Ventilator 40 08/25/17 13:00 60 23 97/44 100 Mechanical Ventilator 40 Intake and Output 08/25/17 08/26/17 19:00 07:00 Intake Total 365 ml 435 ml Output Total 1615 ml 1265 ml Balance -1250 ml -830 ml IV Total 55 ml 55 ml Tube Feeding 310 ml 330 ml Other 50 ml Output Urine Total 1615 ml 1265 ml Laboratory Tests 08/26/17 06:00: White Blood Count 9.6, Red Blood Count 3.96L, Hemoglobin 8.9L, Hematocrit 32.0L , Mean Corpuscular Volume 81, Mean Corpuscular Hemoglobin 22.6L, Mean Corpuscular Hemoglobin Concent 27.9L, Red Cell Distribution Width 18.3H, Platelet Count 205#, Mean Platelet Volume 7.8, Neutrophils (%) (Auto) 53.9, Lymphocytes (%) (Auto) 29.0, Monocytes (%) (Auto) 13.7H, Eosinophils (%) (Auto) 2.5, Basophils (%) (Auto) 0.9, Sodium Level 144, Potassium Level 3.3L, Chloride Level 104, Carbon Dioxide Level 35H, Anion Gap 5, Blood Urea Nitrogen 65H, Creatinine 2.5H, Estimat Glomerular Filtration Rate 23.9, Glucose Level 174H, Uric Acid 10.4H, Calcium Level 8.7, Phosphorus Level 2.7, Magnesium Level 2.1, Total Bilirubin 0.8, Aspartate Amino Transf (AST/SGOT) 55H, Alanine Aminotransferase (ALT/SGPT) 482H, Alkaline Phosphatase 85, Troponin I 0.891H, C- Reactive Protein, Quantitative 3.2H, Pro-B-Type Natriuretic Peptide 1138H, Total Protein 6.6, Albumin 1.9L, Globulin 4.7, Albumin/Globulin Ratio 0.4L, Random Vancomycin Level 11.6 Height (Feet): 5 Height (Inches): 3.00 Weight (Pounds): 487 Objective General: intubated, sedated, morbid obesity Head: normocephalic, without obvious abnormality, atraumatic Eyes: conjunctivae/corneas clear. PERRL, EOM's intact Throat: lips, mucosa, and tongue normal. MMM Neck: supple, symmetrical, trachea midline, and no JVD Lungs: clear to auscultation bilaterally Heart: regular rate and rhythm, S1, S2 normal, no murmur, click, rub or gallop Abdomen: soft, non-tender, non-distended, bowel sounds normal Extremities: extremities normal, atraumatic, no cyanosis or edema Pulses: 2+ and symmetric Skin: skin color, texture, turgor normal; no rashes or lesions Neurologic: sedated Cassie Bolivar M.D. Aug 26, 2017 12:54
[2017-08-26] MEDS: Acetaminophen 650mg/20.3ml NG PRN (13:13)
[2017-08-26] MEDS ORDERED: Vancomycin 1250mg/D5W 250ml 250 ML IVPB ONE (15:00)
--- NOTE | 2017-08-26 18:35 | Infectious Diseases Prog Note ---
Assessment/Plan Assessment/Plan ASSESSMENT AND PLAN: 1. sepsis, shock, ? cap, ? HCAP/aspiration pna, fevers, leukocytosis, influenza negative - clinically improved, off pressors, extubated, fevers resolved, leukocytosis better - chest x-ray stable, sputum culture negative but on abx, mycoplasma and legionella pending - vancomycin and meropenem, discontinue azithromycin, legionella negative, mycoplasma igm negative - check labs and chest x-ray - icu care, supportive care 2. Acute kidney injury, on hemodialysis. 3. Elevated liver enzymes, likely shock liver. Check hepatitis panel. 4. Anemia. 5. Hypertension. 6. Diabetes. 7. Gastroesophageal reflux disease. 8. Morbid obesity. 9. Shortness of breath. 10. Hypoxia. 11. Respiratory failure. 12. On ventilator. 13. Intensive care unit care. 14. BiPAP, hypercapnia. 15. Asthma. 16. Blood sugar and blood pressure treatment for diabetes and hypertension per primary. 17. Jmv-KT-fpbygyadc myocardial infarction history. 18. Hyperkalemia. 19. Allergies negative. 20. Social history negative. 21. Family history noncontributory. 22. mar noted. 23. Case discussed with RN, intensive care unit care. 24. No known drug allergies. 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 Subjective Constitutional: Reports: fatigue, other - extubated, alert, Denies: fever HEENT: Reports: congestion - less Respiratory: Reports: shortness of breath - less Cardiovascular: Denies: chest pain Gastrointestinal/Abdominal: Denies: nausea, vomiting, diarrhea Genitourinary: Reports: other - + vargas Neurologic: Denies: headache Psychiatric: Denies: depression Skin: Denies: rash Hematologic: Denies: bleeding Musculoskeletal: Denies: pain Allergies: Coded Allergies: No Known Allergies (Unverified , 06/01/17) Objective Vital Signs Last 24 Hour Vital Signs Date Time Temp Pulse Resp B/P (MAP) Pulse Ox O2 Delivery O2 Flow Rate FiO2 08/26/17 17:00 80 16 106/53 100 Mechanical Ventilator 40 08/26/17 16:00 76 08/26/17 16:00 98.8 76 21 102/50 100 Mechanical Ventilator 40 08/26/17 15:10 Simple Mask 12.0 40 08/26/17 15:00 87 15 112/50 100 Mechanical Ventilator 40 08/26/17 14:00 87 14 110/52 100 Mechanical Ventilator 40 08/26/17 13:43 98.7 08/26/17 13:00 51 14 108/57 100 Mechanical Ventilator 40 08/26/17 12:38 62 28 30 08/26/17 12:00 40 08/26/17 12:00 98.7 52 16 131/56 99 Mechanical Ventilator 40 08/26/17 12:00 52 08/26/17 11:19 52 16 116/54 99 Mechanical Ventilator 40 08/26/17 11:00 51 16 116/54 100 Mechanical Ventilator 40 08/26/17 10:46 55 26 30 08/26/17 10:00 46 16 145/53 100 Mechanical Ventilator 40 08/26/17 09:20 99 08/26/17 09:20 53 25 30 08/26/17 09:00 48 14 132/58 100 Mechanical Ventilator 40 08/26/17 08:27 51 107/56 08/26/17 08:26 51 08/26/17 08:00 98.6 51 15 107/62 100 Mechanical Ventilator 40 08/26/17 08:00 48 08/26/17 08:00 40 08/26/17 07:11 30 08/26/17 07:10 54 26 40 08/26/17 07:00 45 19 127/57 100 Mechanical Ventilator 40 08/26/17 06:00 46 19 119/43 100 Mechanical Ventilator 40 08/26/17 05:00 47 15 128/106 100 Mechanical Ventilator 40 08/26/17 04:30 65 26 40 08/26/17 04:00 98.6 58 18 117/72 100 Mechanical Ventilator 40 08/26/17 04:00 45 08/26/17 04:00 40 08/26/17 03:30 46 26 40 08/26/17 03:00 51 19 135/47 100 Mechanical Ventilator 40 08/26/17 02:00 52 19 132/45 100 Mechanical Ventilator 40 08/26/17 01:30 43 26 40 08/26/17 01:00 45 19 120/53 100 Mechanical Ventilator 40 08/26/17 00:00 40 08/26/17 00:00 98.8 47 20 116/57 100 Mechanical Ventilator 40 08/26/17 00:00 46 08/25/17 23:30 48 26 40 08/25/17 23:00 54 19 101/50 100 Mechanical Ventilator 40 08/25/17 22:00 49 19 110/46 100 Mechanical Ventilator 40 08/25/17 21:24 52 21 40 08/25/17 21:00 51 110/47 08/25/17 21:00 50 19 109/46 100 Mechanical Ventilator 40 08/25/17 20:00 98.6 50 20 103/53 100 Mechanical Ventilator 40 08/25/17 20:00 57 08/25/17 20:00 40 08/25/17 19:30 51 26 40 08/25/17 19:00 56 19 100/31 100 Mechanical Ventilator 40 Height (Feet): 5 Height (Inches): 3.00 Weight (Pounds): 487 General Appearance: no acute distress HEENT: normocephalic, atraumatic, anicteric Respiratory/Chest: no accessory muscle use, crackles/rales, rhonchi - bilaterally Cardiovascular: regular rhythm, no gallop/murmur, no JVD Abdomen: normal bowel sounds, soft, non tender, no organomegaly, non distended Genitourinary: other - + vargas - urine clear Extremities: no cyanosis Skin: no rash Neurologic/Psychiatric: field engineer II-XII grossly normal, alert, oriented x 3, responsive Lymphatic: no neck adenopathy Musculoskeletal: no effusion Objective Chest x-ray - 08/22 - Impression: Since the bilateral interstitial and airspace opacities. Continued slight improved aeration in the right mid/lower lung. 08/24 - chest x-ray - Impression: Since is interstitial and bilateral airspace opacities with interval worsening of aeration of the right lung compared to one day prior. 08/26 - chest x-ray - Findings: Tubes and lines are stable. Cardiomegaly is stable. Pulmonary vascular congestion or interstitial edema is stable. IMPRESSION: Moderate CHF unchanged Microbiology Date/Time Source Procedure Growth Status 08/19/17 07:55 Blood Blood Culture - Final NO GROWTH AFTER 5 DAYS Complete 08/23/17 03:30 Sputum Gram Stain - Final Complete 08/23/17 03:30 Sputum Culture - Final Tamia Albicans Usual Upper Respiratory Cassandra Complete 08/19/17 08:45 Rectum VRE Culture - Final NO VANCOMYCIN RESISTANT ENTEROCOCCUS ... Complete Laboratory Tests Test 08/26/17 04:00 08/26/17 06:00 Arterial Blood pH 7.376 (7.350-7.450) Arterial Blood Partial Pressure CO2 56.8 mmHg (35.0-45.0) *H Arterial Blood Partial Pressure O2 132.6 mmHg (75.0-100.0) H Arterial Blood HCO3 32.6 mmol/L (22.0-26.0) H Arterial Blood Oxygen Saturation 97.6 % (92.0-98.0) Arterial Blood Base Excess 6.2 Doroteo Test Positive White Blood Count 9.6 K/UL (4.8-10.8) Red Blood Count 3.96 M/UL (4.20-5.40) L Hemoglobin 8.9 G/DL (12.0-16.0) L Hematocrit 32.0 % (37.0-47.0) L Mean Corpuscular Volume 81 FL (80-99) Mean Corpuscular Hemoglobin 22.6 PG (27.0-31.0) L Mean Corpuscular Hemoglobin Concent 27.9 G/DL (32.0-36.0) L Red Cell Distribution Width 18.3 % (11.6-14.8) H Platelet Count 205 K/UL (150-450) # Mean Platelet Volume 7.8 FL (6.5-10.1) Neutrophils (%) (Auto) 53.9 % (45.0-75.0) Lymphocytes (%) (Auto) 29.0 % (20.0-45.0) Monocytes (%) (Auto) 13.7 % (1.0-10.0) H Eosinophils (%) (Auto) 2.5 % (0.0-3.0) Basophils (%) (Auto) 0.9 % (0.0-2.0) Sodium Level 144 MMOL/L (136-145) Potassium Level 3.3 MMOL/L (3.5-5.1) L Chloride Level 104 MMOL/L (98-107) Carbon Dioxide Level 35 MMOL/L (21-32) H Anion Gap 5 mmol/L (5-15) Blood Urea Nitrogen 65 mg/dL (7-18) H Creatinine 2.5 MG/DL (0.55-1.30) H Estimat Glomerular Filtration Rate 23.9 mL/min (>60) Glucose Level 174 MG/DL (74-106) H Uric Acid 10.4 MG/DL (2.6-7.2) H Calcium Level 8.7 MG/DL (8.5-10.1) Phosphorus Level 2.7 MG/DL (2.5-4.9) Magnesium Level 2.1 MG/DL (1.8-2.4) Total Bilirubin 0.8 MG/DL (0.2-1.0) Aspartate Amino Transf (AST/SGOT) 55 U/L (15-37) H Alanine Aminotransferase (ALT/SGPT) 482 U/L (12-78) H Alkaline Phosphatase 85 U/L (46-116) Troponin I 0.891 ng/mL (0.000-0.056) C-Reactive Protein, Quantitative 3.2 mg/dL (0.00-0.90) H Pro-B-Type Natriuretic Peptide 1138 pg/mL (0-125) H Total Protein 6.6 G/DL (6.4-8.2) Albumin 1.9 G/DL (3.4-5.0) L Globulin 4.7 g/dL Albumin/Globulin Ratio 0.4 (1.0-2.7) L Random Vancomycin Level 11.6 ug/mL Current Medications Medications (Trade) Dose Ordered Sig/Felipe Route PRN Reason Start Time Stop Time Status Last Admin Dose Admin Acetaminophen (Tylenol) 650 mg Q6HR PRN NG Mild Pain/Temp > 100.1 08/20/17 13:00 09/19/17 12:59 08/26/17 13:13 Allopurinol (Allopurinol) 300 mg DAILY NG 08/26/17 09:00 09/25/17 08:59 08/26/17 08:30 Aspirin (ASA) 81 mg DAILY GT 08/25/17 09:00 09/19/17 08:59 08/26/17 08:26 Atorvastatin Calcium (Lipitor) 20 mg BEDTIME GT 08/25/17 21:00 09/21/17 20:59 08/25/17 21:11 Azithromycin (Zithromax) 250 mg DAILY GT 08/25/17 09:00 08/30/17 08:59 08/26/17 08:25 Chlorhexidine Gluconate (Vicki-Hex 2%) 1 applic DAILY@1999 TOPIC 08/20/17 20:00 09/19/17 19:59 08/25/17 19:56 Dextrose (Dextrose 50%) STAT PRN IV Hypoglycemia 08/19/17 12:00 09/18/17 11:59 Epoetin Dario (Procrit (for ESRD on dialysis)) 10,000 units MON-WED-THU SUBQ 08/21/17 21:00 09/20/17 20:59 08/24/17 20:52 Heparin Sodium (Porcine) (Heparin 5000 units/ml) 5,000 units EVERY 12 HOURS SUBQ 08/22/17 21:00 09/21/17 20:59 08/26/17 08:25 Insulin Aspart (NovoLOG) BEFORE MEALS AND HS SUBQ 08/19/17 12:30 09/18/17 12:29 08/26/17 17:04 Meropenem 1 gm/ Sodium Chloride 55 ml @ 110 mls/hr Q12HR@0600,1800 IVPB 08/25/17 18:00 08/30/17 17:59 08/26/17 17:10 Metoprolol Tartrate (Lopressor) 12.5 mg DAILY GT 08/27/17 09:00 09/23/17 20:59 Nitroglycerin (Ntg) 0.4 mg Q5MIN X 3 DOSES PRN SL Prn Chest Pain 08/19/17 12:00 09/18/17 11:59 Ondansetron HCl (Zofran) 4 mg Q6H PRN IVP Nausea & Vomiting 08/19/17 12:00 09/18/17 11:59 Pantoprazole (Protonix) 40 mg DAILY IV 08/20/17 09:00 09/19/17 08:59 08/26/17 08:26 Polyethylene Glycol (Miralax) 17 gm DAILYPRN PRN GT Constipation 08/25/17 08:15 09/18/17 10:29 Vancomycin HCl (Vanco rx to dose) 1 ea DAILYPRN PRN MISC RX TO DOSE PROTOCL 08/19/17 13:00 09/18/17 12:59 JUNI ABDUL Aug 26, 2017 18:35
[2017-08-26] MEDS: Dyna-Hex 2% Top Sol 2oz TOPIC SCH (19:39)
[2017-08-26] MEDS: Epogen (for ESRD on dialysis) SUBQ SCH (20:36)
[2017-08-26] MEDS: Atorvastatin 20mg tab GT SCH (20:38)
[2017-08-27] VITALS (27 sets, daily range): BP systolic 93–135; BP diastolic 42–67
[2017-08-27 05:52] LABS: BASOPHILS % (AUTO) 1.1 % (0.0-2.0); HEMATOCRIT 31.6 % (37.0-47.0); HEMOGLOBIN 8.7 G/DL (12.0-16.0); LYMPHOCYTES % (AUTO) 21.3 % (20.0-45.0); MEAN CORPUSCULAR VOLUME 83 FL (80-99); MONOCYTES % (AUTO) 10.9 % (1.0-10.0); NEUTROPHILS % (AUTO) 64.8 % (45.0-75.0); PLATELET COUNT 251 K/UL (150-450); RED BLOOD COUNT 3.81 M/UL (4.20-5.40); RED CELL DISTRIBUTION WIDTH 18.9 % (11.6-14.8)
[2017-08-27] MEDS: Meropenem 1gm in NS 55ml IVPB SCH ×3 (05:52→22:56)
[2017-08-27] MEDS: NovoLOG Insulin Flexpen SUBQ SCH ×4 (05:53→20:40)
[2017-08-27 06:01] LABS: ALANINE AMINOTRANSFERASE 396 U/L (12-78); ALBUMIN 2.1 G/DL (3.4-5.0); ALBUMIN/GLOBULIN RATIO 0.4 (1.0-2.7); ALKALINE PHOSPHATASE 71 U/L (46-116); ANION GAP 1 mmol/L (5-15); ASPARTATE AMINO TRANSFERASE 42 U/L (15-37); BILIRUBIN,TOTAL 0.6 MG/DL (0.2-1.0); BLOOD UREA NITROGEN 58 mg/dL (7-18); CALCIUM 8.8 MG/DL (8.5-10.1); CARBON DIOXIDE 39 MMOL/L (21-32); CHLORIDE 107 MMOL/L (98-107); CREATININE 1.7 MG/DL (0.55-1.30); POTASSIUM 3.9 MMOL/L (3.5-5.1); SODIUM 147 MMOL/L (136-145)
[2017-08-27] MEDS: Metoprolol Tartrate 12.5mg TAB GT SCH (09:40)
[2017-08-27] MEDS: Aspirin Baby 81mg GT SCH (09:41)
[2017-08-27] MEDS: Pantoprazole Inj IV SCH (09:41)
[2017-08-27] MEDS: Heparin 5000 units/ml inj SUBQ SCH ×2 (09:47→20:40)
--- NOTE | 2017-08-27 09:48 | Pulmonolgy Critical Care Note ---
Critical Care - Asmt/Plan Problems: (1) Acute respiratory failure with hypoxia and hypercapnia (2) Acute renal failure (ARF) (3) Non-STEMI (non-ST elevated myocardial infarction) (4) Septic shock (5) Acute toxic metabolic encephalopathy (6) DM2 (diabetes mellitus, type 2) (7) Lactic acid acidosis Respiratory: monitor respiratory rate Cardiac: continue to monitor HR/BP Renal: F/U I&O, check electrolytes Infectious Disease: check cultures Gastrointestinal: other - swallow study Hematologic: monitor H/H, transfuse if hgb<8.5 Neurologic: PRN Ativan, PRN Morphine Prophylaxis: Protonix Notes Reviewed: family medicine resident, 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 with: nurses, consultants, complex case managermanager drilling - Objective Last 24 Hour Vital Signs Date Time Temp Pulse Resp B/P (MAP) Pulse Ox O2 Delivery O2 Flow Rate FiO2 08/27/17 08:00 62 08/27/17 07:00 66 23 109/48 97 Simple Mask 12.0 40 08/27/17 06:00 60 23 116/50 99 Simple Mask 12.0 40 08/27/17 05:00 69 23 105/48 99 Simple Mask 12.0 40 08/27/17 04:03 65 08/27/17 04:00 97.5 66 23 114/52 99 Simple Mask 12.0 40 08/27/17 03:00 67 23 94/42 99 Simple Mask 12.0 40 08/27/17 02:00 66 27 110/54 100 Simple Mask 12.0 40 08/27/17 01:00 68 24 94/44 98 Simple Mask 12.0 40 08/27/17 00:12 70 08/27/17 00:00 98.6 72 26 97/43 96 Simple Mask 12.0 40 08/26/17 23:00 71 24 94/43 98 Simple Mask 12.0 40 08/26/17 22:00 75 26 95/44 97 Simple Mask 40 08/26/17 21:00 78 27 95/39 97 Simple Mask 40 08/26/17 20:00 76 08/26/17 20:00 98.6 76 27 112/83 90 Simple Mask 40 08/26/17 19:30 100 Venturi Mask 10.0 35 08/26/17 19:30 Venturi Mask 10.0 35 08/26/17 19:00 71 25 100/51 100 Simple Mask 12.0 40 08/26/17 18:00 85 16 114/62 100 Mechanical Ventilator 40 08/26/17 17:00 80 16 106/53 100 Mechanical Ventilator 40 08/26/17 16:00 76 08/26/17 16:00 98.8 76 21 102/50 100 Mechanical Ventilator 40 08/26/17 15:10 Simple Mask 12.0 40 08/26/17 15:00 87 15 112/50 100 Mechanical Ventilator 40 08/26/17 14:00 87 14 110/52 100 Mechanical Ventilator 40 08/26/17 13:43 98.7 08/26/17 13:00 51 14 108/57 100 Mechanical Ventilator 40 08/26/17 12:38 62 28 30 08/26/17 12:00 40 08/26/17 12:00 98.7 52 16 131/56 99 Mechanical Ventilator 40 08/26/17 12:00 52 08/26/17 11:19 52 16 116/54 99 Mechanical Ventilator 40 08/26/17 11:00 51 16 116/54 100 Mechanical Ventilator 40 08/26/17 10:46 55 26 30 08/26/17 10:00 46 16 145/53 100 Mechanical Ventilator 40 Status: awake Condition: improving HEENT: atraumatic Lungs: chest wall tender Heart: HR/BP stable, HR/BP unstable Abdomen: soft, non-tender, active bowel sounds Extremities: no C/C/E, edema Decubiti: location, stage Accucheck: 119 Critical Care - Subjective ROS Limited/Unobtainable: No ICU Day: 8 Condition: critical EKG Rhythm: Sinus Rhythm FI02: 40 Vent Support Breath Rate: 8 Vent Support Mode: IMV/SIMV Vent Tidal Volume: 700 Sputum Amount: Small PEEP: 5.0 PIP: 38 Tube Feeding Amount: 0 I&O: Intake and Output 08/26/17 08/27/17 19:00 07:00 Intake Total 1115.0 ml 55 ml Output Total 1470 ml 1320 ml Balance -355.0 ml -1265 ml IV Total 875.0 ml 55 ml Tube Feeding 240 ml 0 ml Output Urine Total 1470 ml 1320 ml CXR: less pulmonary edema ET-Tube: 8.0 ET Position: 24 Labs: Laboratory Tests Test 08/27/17 05:25 White Blood Count 11.0 K/UL (4.8-10.8) H Red Blood Count 3.81 M/UL (4.20-5.40) L Hemoglobin 8.7 G/DL (12.0-16.0) L Hematocrit 31.6 % (37.0-47.0) L Mean Corpuscular Volume 83 FL (80-99) Mean Corpuscular Hemoglobin 23.0 PG (27.0-31.0) L Mean Corpuscular Hemoglobin Concent 27.7 G/DL (32.0-36.0) L Red Cell Distribution Width 18.9 % (11.6-14.8) H Platelet Count 251 K/UL (150-450) Mean Platelet Volume 7.0 FL (6.5-10.1) Neutrophils (%) (Auto) 64.8 % (45.0-75.0) Lymphocytes (%) (Auto) 21.3 % (20.0-45.0) Monocytes (%) (Auto) 10.9 % (1.0-10.0) H Eosinophils (%) (Auto) 2.0 % (0.0-3.0) Basophils (%) (Auto) 1.1 % (0.0-2.0) Sodium Level 147 MMOL/L (136-145) H Potassium Level 3.9 MMOL/L (3.5-5.1) Chloride Level 107 MMOL/L (98-107) Carbon Dioxide Level 39 MMOL/L (21-32) H Anion Gap 1 mmol/L (5-15) L Blood Urea Nitrogen 58 mg/dL (7-18) H Creatinine 1.7 MG/DL (0.55-1.30) H Estimat Glomerular Filtration Rate 37.3 mL/min (>60) Glucose Level 124 MG/DL (74-106) H Calcium Level 8.8 MG/DL (8.5-10.1) Phosphorus Level 6.0 MG/DL (2.5-4.9) H Magnesium Level 2.1 MG/DL (1.8-2.4) Total Bilirubin 0.6 MG/DL (0.2-1.0) Aspartate Amino Transf (AST/SGOT) 42 U/L (15-37) H Alanine Aminotransferase (ALT/SGPT) 396 U/L (12-78) H Alkaline Phosphatase 71 U/L (46-116) Troponin I 0.638 ng/mL (0.000-0.056) Total Protein 6.9 G/DL (6.4-8.2) Albumin 2.1 G/DL (3.4-5.0) L Globulin 4.8 g/dL Albumin/Globulin Ratio 0.4 (1.0-2.7) L DOMONIQUE DOBBS Aug 27, 2017 09:48
--- NOTE | 2017-08-27 12:00 | GI Progress Note ---
Assessment/Plan Problems: (1) Shock liver ICD Codes: K72.00 - Acute and subacute hepatic failure without coma SNOMED: 589518203 (2) Anemia ICD Codes: D64.9 - Anemia, unspecified SNOMED: 070534613 (3) Morbid obesity ICD Codes: E66.01 - Morbid (severe) obesity due to excess calories SNOMED: 714569610, 94047462385088 (4) Multiple organ failure SNOMED: 89426960 (5) Transaminitis ICD Codes: R74.0 - Nonspecific elevation of levels of transaminase and lactic acid dehydrogenase [LDH] SNOMED: 803970670, 745497820 (6) Septic shock ICD Codes: A41.9 - Sepsis, unspecified organism; R65.21 - Severe sepsis with septic shock SNOMED: 66152741 (7) DM2 (diabetes mellitus, type 2) ICD Codes: E11.9 - Type 2 diabetes mellitus without complications SNOMED: 28151780 (8) GERD (gastroesophageal reflux disease) ICD Codes: K21.9 - Gastro-esophageal reflux disease without esophagitis SNOMED: 227966138 Status: progressing Status Narrative Discussed with Dr. Cordero. Assessment/Plan defer GI procedures at this time, on simple masks Continue NGT feeds will consider CTAP if patient continue to has abdominal pain transaminitis due to shock liver >> down trending anemia work up OB stool r/o GI bleed monitor H&H, prn transfusions ppi abx fu labs Subjective Subjective limited Objective Last 24 Hour Vital Signs Date Time Temp Pulse Resp B/P (MAP) Pulse Ox O2 Delivery O2 Flow Rate FiO2 08/27/17 11:00 57 21 109/52 94 Simple Mask 12.0 40 08/27/17 10:00 61 20 120/55 95 Simple Mask 12.0 40 08/27/17 09:40 69 119/43 08/27/17 09:00 60 23 119/43 100 Simple Mask 12.0 40 08/27/17 08:00 98.7 64 26 115/49 100 Simple Mask 12.0 40 08/27/17 08:00 62 08/27/17 07:00 Venturi Mask 8.0 30 08/27/17 07:00 66 23 109/48 97 Simple Mask 12.0 40 08/27/17 07:00 100 Venturi Mask 8.0 30 08/27/17 06:00 60 23 116/50 99 Simple Mask 12.0 40 08/27/17 05:00 69 23 105/48 99 Simple Mask 12.0 40 08/27/17 04:03 65 08/27/17 04:00 97.5 66 23 114/52 99 Simple Mask 12.0 40 08/27/17 03:00 67 23 94/42 99 Simple Mask 12.0 40 08/27/17 02:00 66 27 110/54 100 Simple Mask 12.0 40 08/27/17 01:00 68 24 94/44 98 Simple Mask 12.0 40 08/27/17 00:12 70 08/27/17 00:00 98.6 72 26 97/43 96 Simple Mask 12.0 40 08/26/17 23:00 71 24 94/43 98 Simple Mask 12.0 40 08/26/17 22:00 75 26 95/44 97 Simple Mask 40 08/26/17 21:00 78 27 95/39 97 Simple Mask 40 08/26/17 20:00 76 08/26/17 20:00 98.6 76 27 112/83 90 Simple Mask 40 08/26/17 19:30 100 Venturi Mask 10.0 35 08/26/17 19:30 Venturi Mask 10.0 35 08/26/17 19:00 71 25 100/51 100 Simple Mask 12.0 40 08/26/17 18:00 85 16 114/62 100 Mechanical Ventilator 40 08/26/17 17:00 80 16 106/53 100 Mechanical Ventilator 40 08/26/17 16:00 76 08/26/17 16:00 98.8 76 21 102/50 100 Mechanical Ventilator 40 08/26/17 15:10 Simple Mask 12.0 40 08/26/17 15:00 87 15 112/50 100 Mechanical Ventilator 40 08/26/17 14:00 87 14 110/52 100 Mechanical Ventilator 40 08/26/17 13:43 98.7 08/26/17 13:00 51 14 108/57 100 Mechanical Ventilator 40 08/26/17 12:38 62 28 30 08/26/17 12:00 40 08/26/17 12:00 98.7 52 16 131/56 99 Mechanical Ventilator 40 08/26/17 12:00 52 Intake and Output 08/26/17 08/27/17 19:00 07:00 Intake Total 1115.0 ml 55 ml Output Total 1470 ml 1320 ml Balance -355.0 ml -1265 ml IV Total 875.0 ml 55 ml Tube Feeding 240 ml 0 ml Output Urine Total 1470 ml 1320 ml Laboratory Tests Test 08/27/17 05:25 White Blood Count 11.0 K/UL (4.8-10.8) H Red Blood Count 3.81 M/UL (4.20-5.40) L Hemoglobin 8.7 G/DL (12.0-16.0) L Hematocrit 31.6 % (37.0-47.0) L Mean Corpuscular Volume 83 FL (80-99) Mean Corpuscular Hemoglobin 23.0 PG (27.0-31.0) L Mean Corpuscular Hemoglobin Concent 27.7 G/DL (32.0-36.0) L Red Cell Distribution Width 18.9 % (11.6-14.8) H Platelet Count 251 K/UL (150-450) Mean Platelet Volume 7.0 FL (6.5-10.1) Neutrophils (%) (Auto) 64.8 % (45.0-75.0) Lymphocytes (%) (Auto) 21.3 % (20.0-45.0) Monocytes (%) (Auto) 10.9 % (1.0-10.0) H Eosinophils (%) (Auto) 2.0 % (0.0-3.0) Basophils (%) (Auto) 1.1 % (0.0-2.0) Sodium Level 147 MMOL/L (136-145) H Potassium Level 3.9 MMOL/L (3.5-5.1) Chloride Level 107 MMOL/L (98-107) Carbon Dioxide Level 39 MMOL/L (21-32) H Anion Gap 1 mmol/L (5-15) L Blood Urea Nitrogen 58 mg/dL (7-18) H Creatinine 1.7 MG/DL (0.55-1.30) H Estimat Glomerular Filtration Rate 37.3 mL/min (>60) Glucose Level 124 MG/DL (74-106) H Calcium Level 8.8 MG/DL (8.5-10.1) Phosphorus Level 6.0 MG/DL (2.5-4.9) H Magnesium Level 2.1 MG/DL (1.8-2.4) Total Bilirubin 0.6 MG/DL (0.2-1.0) Aspartate Amino Transf (AST/SGOT) 42 U/L (15-37) H Alanine Aminotransferase (ALT/SGPT) 396 U/L (12-78) H Alkaline Phosphatase 71 U/L (46-116) Troponin I 0.638 ng/mL (0.000-0.056) Total Protein 6.9 G/DL (6.4-8.2) Albumin 2.1 G/DL (3.4-5.0) L Globulin 4.8 g/dL Albumin/Globulin Ratio 0.4 (1.0-2.7) L Height (Feet): 5 Height (Inches): 3.00 Weight (Pounds): 478 General Appearance: WD/WN, no apparent distress, alert, morbidly obese Cardiovascular: normal rate Respiratory/Chest: other - simple mask Abdominal Exam: normal bowel sounds, non tender, soft, other - NGT Extremities: non-tender Caren Nixon N.Delio Aug 27, 2017 12:00
--- NOTE | 2017-08-27 14:50 | General Progress Note ---
Assessment/Plan Problem List: (1) SVT (supraventricular tachycardia) ICD Codes: I47.1 - Supraventricular tachycardia SNOMED: 3341831 (2) Acute respiratory failure with hypoxia and hypercapnia ICD Codes: J96.01 - Acute respiratory failure with hypoxia; J96.02 - Acute respiratory failure with hypercapnia SNOMED: 93713749, 43980685, 805178814 (3) Septic shock ICD Codes: A41.9 - Sepsis, unspecified organism; R65.21 - Severe sepsis with septic shock SNOMED: 86900172 (4) KASHIF (acute kidney injury) ICD Codes: N17.9 - Acute kidney failure, unspecified SNOMED: 05966810 (5) Lactic acid acidosis ICD Codes: E87.2 - Acidosis SNOMED: 79456060 (6) Hyperkalemia ICD Codes: E87.5 - Hyperkalemia; J96.02 - Acute respiratory failure with hypercapnia SNOMED: 27143467, 00932864, 874097525 (7) Acute toxic metabolic encephalopathy (8) Shock liver ICD Codes: K72.00 - Acute and subacute hepatic failure without coma SNOMED: 688601710 (9) Non-STEMI (non-ST elevated myocardial infarction) ICD Codes: I21.4 - Non-ST elevation (NSTEMI) myocardial infarction; J96.02 - Acute respiratory failure with hypercapnia SNOMED: 427332264, 32770302, 872458283 (10) DM2 (diabetes mellitus, type 2) ICD Codes: E11.9 - Type 2 diabetes mellitus without complications SNOMED: 76182102 (11) Asthma ICD Codes: J45.909 - Unspecified asthma, uncomplicated SNOMED: 708490104 (12) GERD (gastroesophageal reflux disease) ICD Codes: K21.9 - Gastro-esophageal reflux disease without esophagitis SNOMED: 391914470 Status: stable Assessment/Plan Cont ICU care Pulmonology, Nephrology, GI, ID, Cardiology consulted Empiric vanco, meropenem and azithro per ID F/u cultures Pt extubated on 08/26/17. Monitor respiratory status closely. BiPAP qHS and PRN Now off pressors Arterial line placed 08/20/17 Trend lactate--downtrending Trend trop/EKG--downtrending ASA, statin F/u ECHO--EF 70%, grade 1 diastolic dysfcn, LVH Cont on MTP per cardiology; digoxin d/c'd HD on hold per renal as Cr improving. Last HD 08/22. Remove temporary HD line today Trend BMP closely s/p mucomyst IV for shock liver/hepatitis per GI Trend LFTs--downtrending Swallow eval--OK for puree diet PPI Pain control, supportive care, bowel regimen DVT Prophylaxis: HSQ Code Status: Full Hospital Classification Declaration: Based on this initial evaluation, and depending on the patient's clinical course, I anticipate that this patient will require hospitalization for 2-3 days for acute respiratory failure, septic shock and close respiratory/hemodynamic monitoring. Plan outlined above discussed with patient/family, [employer], ICU team, and involved physicians/consultants. D/w ID re abx. D/w renal re removing HD line Time of note may not reflect time of encounter. Subjective Date patient seen: Aug 27, 2017 Time patient seen: 14:50 ROS Limited/Unobtainable: No Constitutional: Reports: no symptoms HEENT: Reports: no symptoms Cardiovascular: Reports: no symptoms Respiratory: Reports: no symptoms Gastrointestinal/Abdominal: Reports: no symptoms Genitourinary: Reports: no symptoms Neurologic/Psychiatric: Reports: no symptoms Endocrine: Reports: no symptoms Hematologic/Lymphatic: Reports: no symptoms Allergies: Coded Allergies: No Known Allergies (Unverified , 06/01/17) All Systems: reviewed and negative except above Subjective No acute o/n events Off pressors now Extubated yesterday evening Pt awake alert. Doing well on NC so far. Passed swallow eval and is now eating. C/o cough, congestion, some SOB. Denies f/c, n/v, d/c, chest pain, abd pain Objective Last 24 Hour Vital Signs Date Time Temp Pulse Resp B/P (MAP) Pulse Ox O2 Delivery O2 Flow Rate FiO2 08/27/17 12:00 98.9 58 20 130/67 100 Simple Mask 12.0 40 08/27/17 12:00 58 08/27/17 11:00 57 21 109/52 94 Simple Mask 12.0 40 08/27/17 10:00 61 20 120/55 95 Simple Mask 12.0 40 08/27/17 09:40 69 119/43 08/27/17 09:00 60 23 119/43 100 Simple Mask 12.0 40 08/27/17 08:00 98.7 64 26 115/49 100 Simple Mask 12.0 40 08/27/17 08:00 62 08/27/17 07:00 Venturi Mask 8.0 30 08/27/17 07:00 66 23 109/48 97 Simple Mask 12.0 40 08/27/17 07:00 100 Venturi Mask 8.0 30 08/27/17 06:00 60 23 116/50 99 Simple Mask 12.0 40 08/27/17 05:00 69 23 105/48 99 Simple Mask 12.0 40 08/27/17 04:03 65 08/27/17 04:00 97.5 66 23 114/52 99 Simple Mask 12.0 40 08/27/17 03:00 67 23 94/42 99 Simple Mask 12.0 40 08/27/17 02:00 66 27 110/54 100 Simple Mask 12.0 40 08/27/17 01:00 68 24 94/44 98 Simple Mask 12.0 40 08/27/17 00:12 70 08/27/17 00:00 98.6 72 26 97/43 96 Simple Mask 12.0 40 08/26/17 23:00 71 24 94/43 98 Simple Mask 12.0 40 08/26/17 22:00 75 26 95/44 97 Simple Mask 40 08/26/17 21:00 78 27 95/39 97 Simple Mask 40 08/26/17 20:00 76 08/26/17 20:00 98.6 76 27 112/83 90 Simple Mask 40 08/26/17 19:30 100 Venturi Mask 10.0 35 08/26/17 19:30 Venturi Mask 10.0 35 08/26/17 19:00 71 25 100/51 100 Simple Mask 12.0 40 08/26/17 18:00 85 16 114/62 100 Mechanical Ventilator 40 08/26/17 17:00 80 16 106/53 100 Mechanical Ventilator 40 08/26/17 16:00 76 08/26/17 16:00 98.8 76 21 102/50 100 Mechanical Ventilator 40 08/26/17 15:10 Simple Mask 12.0 40 08/26/17 15:00 87 15 112/50 100 Mechanical Ventilator 40 Intake and Output 08/26/17 08/27/17 19:00 07:00 Intake Total 1115.0 ml 55 ml Output Total 1470 ml 1320 ml Balance -355.0 ml -1265 ml IV Total 875.0 ml 55 ml Tube Feeding 240 ml 0 ml Output Urine Total 1470 ml 1320 ml Laboratory Tests 08/27/17 05:25: White Blood Count 11.0H, Red Blood Count 3.81L, Hemoglobin 8.7L, Hematocrit 31.6L, Mean Corpuscular Volume 83, Mean Corpuscular Hemoglobin 23.0L, Mean Corpuscular Hemoglobin Concent 27.7L, Red Cell Distribution Width 18.9H, Platelet Count 251, Mean Platelet Volume 7.0, Neutrophils (%) (Auto) 64.8, Lymphocytes (%) (Auto) 21.3, Monocytes (%) (Auto) 10.9H, Eosinophils (%) (Auto) 2.0, Basophils (%) (Auto) 1.1, Sodium Level 147H, Potassium Level 3.9, Chloride Level 107, Carbon Dioxide Level 39H, Anion Gap 1L, Blood Urea Nitrogen 58H, Creatinine 1.7H, Estimat Glomerular Filtration Rate 37.3, Glucose Level 124H, Calcium Level 8.8, Phosphorus Level 6.0H, Magnesium Level 2.1, Total Bilirubin 0.6, Aspartate Amino Transf (AST/SGOT) 42H, Alanine Aminotransferase (ALT/SGPT) 396H, Alkaline Phosphatase 71, Troponin I 0.638H, Total Protein 6.9, Albumin 2.1L, Globulin 4.8, Albumin/Globulin Ratio 0.4L Height (Feet): 5 Height (Inches): 3.00 Weight (Pounds): 478 Objective General: awake, alert, morbidly obese Head: normocephalic, without obvious abnormality, atraumatic Eyes: conjunctivae/corneas clear. PERRL, EOM's intact Throat: lips, mucosa, and tongue normal. MMM Neck: supple, symmetrical, trachea midline, and no JVD Lungs: clear to auscultation bilaterally, decreased breath sounds Heart: regular rate and rhythm, S1, S2 normal, no murmur, click, rub or gallop Abdomen: soft, non-tender, non-distended, bowel sounds normal Extremities: extremities normal, atraumatic, no cyanosis or edema Pulses: 2+ and symmetric Skin: skin color, texture, turgor normal; no rashes or lesions Neurologic: grossly intact Cassie Bolivar M.D. Aug 27, 2017 14:50
[2017-08-27] MEDS: Albuterol/Ipratropium 3ml neb HHN SCH ×2 (15:30→19:01)
[2017-08-27] MEDS ORDERED: Albuterol/Ipratropium 3ml neb HHN PRN (15:30)
[2017-08-27] MEDS ORDERED: guaiFENesin 100mg/5ml Liq ud ORAL PRN (15:45)
--- NOTE | 2017-08-27 17:11 | Cardiac Electrophysiology PN ---
Assessment/Plan Assessment/Plan 1. Non-ST elevation myocardial infarction. Trop peak 16.4, down to 1.9. Echocardiogram EF 75%. No chest pain On Aspirin, Lipitor and Lopressor 12.5 bid 2. Recurrent SVT at rate 200 bpm. Did not terminate with 6 of adenosine but transiently converted with 12. Finally converted with the second dose of digoxin. No further on Lopressor 12.5 bid and Digoxin 0.125 daily. 3. S/P Respiratory failure . Extubated yesterday 4. Accelerated Junctional rhythm. No further, Watch on Lopressor 5. S/P Septic shock. On broad-spectrum intravenous antibiotic and off pressors 6. Morbid obesity 484 Lbs. 7. Severe hyperkalemia, resolved after HD. No further HD. DW RN Subjective Subjective No further SVT or fib. In ICU extubated yesterday. Passed swallow eval. RN at bedside . Objective Last 24 Hour Vital Signs Date Time Temp Pulse Resp B/P (MAP) Pulse Ox O2 Delivery O2 Flow Rate FiO2 08/27/17 17:06 66 20 94 Nasal Cannula 3.0 08/27/17 16:00 64 08/27/17 16:00 97.7 68 31 127/58 92 Nasal Cannula 3.0 08/27/17 15:00 64 31 126/49 95 Nasal Cannula 3.0 08/27/17 14:00 63 30 135/55 95 Nasal Cannula 3.0 08/27/17 13:00 64 22 128/64 94 Nasal Cannula 3.0 08/27/17 12:00 98.9 58 20 130/67 100 Simple Mask 12.0 40 08/27/17 12:00 58 08/27/17 11:00 57 21 109/52 94 Simple Mask 12.0 40 08/27/17 10:00 61 20 120/55 95 Simple Mask 12.0 40 08/27/17 09:40 69 119/43 08/27/17 09:00 60 23 119/43 100 Simple Mask 12.0 40 08/27/17 08:00 98.7 64 26 115/49 100 Simple Mask 12.0 40 08/27/17 08:00 62 08/27/17 07:00 Venturi Mask 8.0 30 08/27/17 07:00 66 23 109/48 97 Simple Mask 12.0 40 08/27/17 07:00 100 Venturi Mask 8.0 30 08/27/17 06:00 60 23 116/50 99 Simple Mask 12.0 40 08/27/17 05:00 69 23 105/48 99 Simple Mask 12.0 40 08/27/17 04:03 65 08/27/17 04:00 97.5 66 23 114/52 99 Simple Mask 12.0 40 08/27/17 03:00 67 23 94/42 99 Simple Mask 12.0 40 08/27/17 02:00 66 27 110/54 100 Simple Mask 12.0 40 08/27/17 01:00 68 24 94/44 98 Simple Mask 12.0 40 08/27/17 00:12 70 08/27/17 00:00 98.6 72 26 97/43 96 Simple Mask 12.0 40 08/26/17 23:00 71 24 94/43 98 Simple Mask 12.0 40 08/26/17 22:00 75 26 95/44 97 Simple Mask 40 08/26/17 21:00 78 27 95/39 97 Simple Mask 40 08/26/17 20:00 76 08/26/17 20:00 98.6 76 27 112/83 90 Simple Mask 40 08/26/17 19:30 100 Venturi Mask 10.0 35 08/26/17 19:30 Venturi Mask 10.0 35 08/26/17 19:00 71 25 100/51 100 Simple Mask 12.0 40 08/26/17 18:00 85 16 114/62 100 Mechanical Ventilator 40 Intake and Output 08/26/17 08/27/17 19:00 07:00 Intake Total 1115.0 ml 55 ml Output Total 1470 ml 1320 ml Balance -355.0 ml -1265 ml IV Total 875.0 ml 55 ml Tube Feeding 240 ml 0 ml Output Urine Total 1470 ml 1320 ml Laboratory Tests Test 08/27/17 05:25 White Blood Count 11.0 K/UL (4.8-10.8) H Red Blood Count 3.81 M/UL (4.20-5.40) L Hemoglobin 8.7 G/DL (12.0-16.0) L Hematocrit 31.6 % (37.0-47.0) L Mean Corpuscular Volume 83 FL (80-99) Mean Corpuscular Hemoglobin 23.0 PG (27.0-31.0) L Mean Corpuscular Hemoglobin Concent 27.7 G/DL (32.0-36.0) L Red Cell Distribution Width 18.9 % (11.6-14.8) H Platelet Count 251 K/UL (150-450) Mean Platelet Volume 7.0 FL (6.5-10.1) Neutrophils (%) (Auto) 64.8 % (45.0-75.0) Lymphocytes (%) (Auto) 21.3 % (20.0-45.0) Monocytes (%) (Auto) 10.9 % (1.0-10.0) H Eosinophils (%) (Auto) 2.0 % (0.0-3.0) Basophils (%) (Auto) 1.1 % (0.0-2.0) Sodium Level 147 MMOL/L (136-145) H Potassium Level 3.9 MMOL/L (3.5-5.1) Chloride Level 107 MMOL/L (98-107) Carbon Dioxide Level 39 MMOL/L (21-32) H Anion Gap 1 mmol/L (5-15) L Blood Urea Nitrogen 58 mg/dL (7-18) H Creatinine 1.7 MG/DL (0.55-1.30) H Estimat Glomerular Filtration Rate 37.3 mL/min (>60) Glucose Level 124 MG/DL (74-106) H Calcium Level 8.8 MG/DL (8.5-10.1) Phosphorus Level 6.0 MG/DL (2.5-4.9) H Magnesium Level 2.1 MG/DL (1.8-2.4) Total Bilirubin 0.6 MG/DL (0.2-1.0) Aspartate Amino Transf (AST/SGOT) 42 U/L (15-37) H Alanine Aminotransferase (ALT/SGPT) 396 U/L (12-78) H Alkaline Phosphatase 71 U/L (46-116) Troponin I 0.638 ng/mL (0.000-0.056) Total Protein 6.9 G/DL (6.4-8.2) Albumin 2.1 G/DL (3.4-5.0) L Globulin 4.8 g/dL Albumin/Globulin Ratio 0.4 (1.0-2.7) L Objective HEENT: No JVD LUNGS: Decreased breath sounds. CARDIOVASCULAR: Regular S1 and S2 with no gallop. ABDOMEN: Morbidly obese. EXTREMITIES: 2+ pitting edema. DIANDRA CUMMINGS Aug 27, 2017 17:11
[2017-08-27] MEDS: guaiFENesin ER 600mg tab ORAL SCH (17:14)
[2017-08-27] MEDS: Acetaminophen 650mg/20.3ml NG PRN (17:17)
--- NOTE | 2017-08-27 18:01 | Nephrology Progress Note ---
Assessment/Plan Problem List: (1) Acute renal failure (ARF) (2) Acute respiratory acidosis (3) Lactic acid acidosis (4) Septic shock (5) Acute respiratory failure with hypoxia and hypercapnia (6) Elevated troponin I level Assessment acute renal failure, Cr lowering Hyperkalemia resolved sepsis, high Lactic , acidosis low BP resp failure obese rapid rise in Troponin- now on way down Plan right jugular dialysis catheter removed under sterile conditions PRN diuretics, zaroxyllin hold Dig and Lopressor for low HR dialysed 08/19 redialysed 08/22 Hold dialysis for now K , Mg, Phos supplements as needed per cardiology and ID and pulm discussed with ID monitor renal parameters and dialysis as needed Subjective ROS Limited/Unobtainable: No Constitutional: Reports: malaise Objective Objective Last 24 Hour Vital Signs Date Time Temp Pulse Resp B/P (MAP) Pulse Ox O2 Delivery O2 Flow Rate FiO2 08/27/17 17:06 66 20 94 Nasal Cannula 3.0 08/27/17 17:00 71 19 113/57 97 Nasal Cannula 3.0 08/27/17 16:00 64 08/27/17 16:00 97.7 68 31 127/58 92 Nasal Cannula 3.0 08/27/17 15:00 64 31 126/49 95 Nasal Cannula 3.0 08/27/17 14:00 63 30 135/55 95 Nasal Cannula 3.0 08/27/17 13:00 64 22 128/64 94 Nasal Cannula 3.0 08/27/17 12:00 98.9 58 20 130/67 100 Simple Mask 12.0 40 08/27/17 12:00 58 08/27/17 11:00 57 21 109/52 94 Simple Mask 12.0 40 08/27/17 10:00 61 20 120/55 95 Simple Mask 12.0 40 08/27/17 09:40 69 119/43 08/27/17 09:00 60 23 119/43 100 Simple Mask 12.0 40 08/27/17 08:00 98.7 64 26 115/49 100 Simple Mask 12.0 40 08/27/17 08:00 62 08/27/17 07:00 Venturi Mask 8.0 30 08/27/17 07:00 66 23 109/48 97 Simple Mask 12.0 40 08/27/17 07:00 100 Venturi Mask 8.0 30 08/27/17 06:00 60 23 116/50 99 Simple Mask 12.0 40 08/27/17 05:00 69 23 105/48 99 Simple Mask 12.0 40 08/27/17 04:03 65 08/27/17 04:00 97.5 66 23 114/52 99 Simple Mask 12.0 40 08/27/17 03:00 67 23 94/42 99 Simple Mask 12.0 40 08/27/17 02:00 66 27 110/54 100 Simple Mask 12.0 40 08/27/17 01:00 68 24 94/44 98 Simple Mask 12.0 40 08/27/17 00:12 70 08/27/17 00:00 98.6 72 26 97/43 96 Simple Mask 12.0 40 08/26/17 23:00 71 24 94/43 98 Simple Mask 12.0 40 08/26/17 22:00 75 26 95/44 97 Simple Mask 40 08/26/17 21:00 78 27 95/39 97 Simple Mask 40 08/26/17 20:00 76 08/26/17 20:00 98.6 76 27 112/83 90 Simple Mask 40 08/26/17 19:30 100 Venturi Mask 10.0 35 08/26/17 19:30 Venturi Mask 10.0 35 08/26/17 19:00 71 25 100/51 100 Simple Mask 12.0 40 08/26/17 18:00 85 16 114/62 100 Mechanical Ventilator 40 Intake and Output 08/26/17 08/27/17 19:00 07:00 Intake Total 1115.0 ml 55 ml Output Total 1470 ml 1320 ml Balance -355.0 ml -1265 ml IV Total 875.0 ml 55 ml Tube Feeding 240 ml 0 ml Output Urine Total 1470 ml 1320 ml Laboratory Tests 08/27/17 05:25: White Blood Count 11.0H, Red Blood Count 3.81L, Hemoglobin 8.7L, Hematocrit 31.6L, Mean Corpuscular Volume 83, Mean Corpuscular Hemoglobin 23.0L, Mean Corpuscular Hemoglobin Concent 27.7L, Red Cell Distribution Width 18.9H, Platelet Count 251, Mean Platelet Volume 7.0, Neutrophils (%) (Auto) 64.8, Lymphocytes (%) (Auto) 21.3, Monocytes (%) (Auto) 10.9H, Eosinophils (%) (Auto) 2.0, Basophils (%) (Auto) 1.1, Sodium Level 147H, Potassium Level 3.9, Chloride Level 107, Carbon Dioxide Level 39H, Anion Gap 1L, Blood Urea Nitrogen 58H, Creatinine 1.7H, Estimat Glomerular Filtration Rate 37.3, Glucose Level 124H, Calcium Level 8.8, Phosphorus Level 6.0H, Magnesium Level 2.1, Total Bilirubin 0.6, Aspartate Amino Transf (AST/SGOT) 42H, Alanine Aminotransferase (ALT/SGPT) 396H, Alkaline Phosphatase 71, Troponin I 0.638H, Total Protein 6.9, Albumin 2.1L, Globulin 4.8, Albumin/Globulin Ratio 0.4L Height (Feet): 5 Height (Inches): 3.00 Weight (Pounds): 478 General Appearance: no apparent distress, other - extubated Cardiovascular: normal rate Respiratory/Chest: decreased breath sounds Abdomen: soft Objective no change AGUSTIN CONTRERAS Aug 27, 2017 18:01
[2017-08-27] MEDS: Dyna-Hex 2% Top Sol 2oz TOPIC SCH (20:36)
[2017-08-27] MEDS: Atorvastatin 20mg tab GT SCH (20:40)
[2017-08-27] MEDS ORDERED: Meropenem 1gm vial ONE (22:43)
[2017-08-28] VITALS (18 sets, daily range): BP systolic 100–131; BP diastolic 44–101
[2017-08-28] MEDS: Albuterol/Ipratropium 3ml neb HHN SCH ×4 (01:25→19:32)
[2017-08-28] MEDS ORDERED: Meropenem 1gm vial ONE (05:18)
[2017-08-28] MEDS: Meropenem 1gm in NS 55ml IVPB SCH (05:48)
[2017-08-28] MEDS: NovoLOG Insulin Flexpen SUBQ SCH ×4 (05:50→21:08)
[2017-08-28 05:59] LABS: BASOPHILS % (AUTO) 0.7 % (0.0-2.0); EOSINOPHILS % (AUTO) 2.2 % (0.0-3.0); HEMATOCRIT 28.9 % (37.0-47.0); MEAN CORPUSCULAR VOLUME 82 FL (80-99); MONOCYTES % (AUTO) 9.9 % (1.0-10.0); NEUTROPHILS % (AUTO) 66.2 % (45.0-75.0); PLATELET COUNT 273 K/UL (150-450); RED BLOOD COUNT 3.51 M/UL (4.20-5.40); RED CELL DISTRIBUTION WIDTH 18.7 % (11.6-14.8); WHITE BLOOD COUNT 12.2 K/UL (4.8-10.8)
[2017-08-28 06:40] LABS: ALANINE AMINOTRANSFERASE 303 U/L (12-78); ALBUMIN/GLOBULIN RATIO 0.4 (1.0-2.7); ALKALINE PHOSPHATASE 69 U/L (46-116); ANION GAP 2 mmol/L (5-15); ASPARTATE AMINO TRANSFERASE 36 U/L (15-37); BILIRUBIN,TOTAL 0.5 MG/DL (0.2-1.0); BLOOD UREA NITROGEN 47 mg/dL (7-18); CALCIUM 8.6 MG/DL (8.5-10.1); CARBON DIOXIDE 36 MMOL/L (21-32); CHLORIDE 105 MMOL/L (98-107); CREATININE 1.6 MG/DL (0.55-1.30); PHOSPHORUS 4.6 MG/DL (2.5-4.9); POTASSIUM 4.1 MMOL/L (3.5-5.1); SODIUM 143 MMOL/L (136-145)
[2017-08-28] MEDS: guaiFENesin ER 600mg tab ORAL SCH ×2 (08:55→17:45)
[2017-08-28] MEDS: Pantoprazole Inj IV SCH (08:55)
[2017-08-28] MEDS: Aspirin Baby 81mg GT SCH (08:55)
[2017-08-28] MEDS: Heparin 5000 units/ml inj SUBQ SCH ×2 (08:56→21:08)
[2017-08-28] MEDS: Metoprolol Tartrate 12.5mg TAB GT SCH (08:56)
[2017-08-28] MEDS ORDERED: Vancomycin 1500mg IVPB ONE (09:00)
--- NOTE | 2017-08-28 09:02 | Nephrology Progress Note ---
Assessment/Plan Problem List: (1) Acute renal failure (ARF) (2) Acute respiratory acidosis (3) Lactic acid acidosis (4) Septic shock (5) Acute respiratory failure with hypoxia and hypercapnia (6) Elevated troponin I level Assessment acute renal failure, Cr lowering Hyperkalemia resolved sepsis, high Lactic , acidosis low BP resolved resp failure now extubated obese rapid rise in Troponin- now on way down Plan right jugular dialysis catheter removed under sterile conditions PRN diuretics, zaroxyllin hold Dig and Lopressor for low HR Last dialysis 08/22 K , Mg, Phos supplements as needed per cardiology and ID and pulm discussed with ID monitor renal parameters and dialysis as needed Subjective ROS Limited/Unobtainable: No Constitutional: Reports: malaise Objective Objective Last 24 Hour Vital Signs Date Time Temp Pulse Resp B/P (MAP) Pulse Ox O2 Delivery O2 Flow Rate FiO2 08/28/17 08:56 67 125/66 08/28/17 08:27 66 20 100 Nasal Cannula 3.0 32 08/28/17 08:19 Nasal Cannula 3.0 32 08/28/17 08:19 98 Nasal Cannula 3.0 32 08/28/17 08:16 66 22 98 Nasal Cannula 3.0 32 08/28/17 08:00 98.3 69 20 125/66 98 Nasal Cannula 3.0 08/28/17 08:00 63 08/28/17 07:00 69 22 102/46 99 Bi-pap 40 08/28/17 06:00 71 20 122/44 90 Bi-pap 40 08/28/17 05:23 63 26 97 Facial 40 08/28/17 05:00 63 20 111/46 97 Bi-pap 40 08/28/17 04:00 69 08/28/17 04:00 97.9 70 20 115/45 97 Bi-pap 40 08/28/17 03:25 60 30 96 Facial 40 08/28/17 03:00 68 20 118/45 86 Nasal Cannula 3.0 08/28/17 02:00 68 20 114/44 86 Nasal Cannula 3.0 08/28/17 01:39 71 20 97 Nasal Cannula 3.0 32 08/28/17 01:28 32 08/28/17 01:27 73 22 95 Nasal Cannula 3.0 32 08/28/17 01:00 74 20 102/44 97 Nasal Cannula 3.0 08/28/17 00:00 104 21 100/48 98 Nasal Cannula 3.0 08/28/17 00:00 74 08/27/17 23:00 70 23 103/50 93 Nasal Cannula 3.0 08/27/17 22:00 72 23 104/48 93 Nasal Cannula 3.0 08/27/17 21:00 72 23 107/48 93 Nasal Cannula 3.0 08/27/17 20:00 74 08/27/17 20:00 73 24 107/44 96 Nasal Cannula 3.0 08/27/17 19:13 94 Nasal Cannula 3.0 32 08/27/17 19:13 Nasal Cannula 3.0 32 08/27/17 19:10 73 20 97 Nasal Cannula 3.0 32 08/27/17 19:00 71 22 94 Nasal Cannula 3.0 32 08/27/17 19:00 97.9 74 24 95/51 98 Nasal Cannula 3.0 08/27/17 19:00 32 08/27/17 18:00 72 25 111/53 96 Nasal Cannula 3.0 08/27/17 17:06 66 20 94 Nasal Cannula 3.0 08/27/17 17:00 71 19 113/57 97 Nasal Cannula 3.0 08/27/17 16:00 64 08/27/17 16:00 97.7 68 31 127/58 92 Nasal Cannula 3.0 08/27/17 15:00 64 31 126/49 95 Nasal Cannula 3.0 08/27/17 14:00 63 30 135/55 95 Nasal Cannula 3.0 08/27/17 13:00 64 22 128/64 94 Nasal Cannula 3.0 08/27/17 12:00 98.9 58 20 130/67 100 Simple Mask 12.0 40 08/27/17 12:00 58 08/27/17 11:00 57 21 109/52 94 Simple Mask 12.0 40 08/27/17 10:00 61 20 120/55 95 Simple Mask 12.0 40 08/27/17 09:40 69 119/43 Intake and Output 08/27/17 08/28/17 19:00 07:00 Intake Total 2815 ml 1300 ml Output Total 1485 ml 1560 ml Balance 1330 ml -260 ml Intake Oral 2760 ml 1300 ml IV Total 55 ml Output Urine Total 1485 ml 1560 ml # Bowel Movements 1 Laboratory Tests 08/28/17 04:30: White Blood Count 12.2H, Red Blood Count 3.51L, Hemoglobin 8.0L, Hematocrit 28.9L, Mean Corpuscular Volume 82, Mean Corpuscular Hemoglobin 22.8L, Mean Corpuscular Hemoglobin Concent 27.6L, Red Cell Distribution Width 18.7H, Platelet Count 273, Mean Platelet Volume 7.1, Neutrophils (%) (Auto) 66.2, Lymphocytes (%) (Auto) 21.0, Monocytes (%) (Auto) 9.9, Eosinophils (%) (Auto) 2.2, Basophils (%) (Auto) 0.7, Sodium Level 143, Potassium Level 4.1, Chloride Level 105, Carbon Dioxide Level 36H, Anion Gap 2L, Blood Urea Nitrogen 47H, Creatinine 1.6H, Estimat Glomerular Filtration Rate 40.0, Glucose Level 155H, Calcium Level 8.6, Phosphorus Level 4.6, Magnesium Level 1.9, Total Bilirubin 0.5, Aspartate Amino Transf (AST/SGOT) 36, Alanine Aminotransferase (ALT/SGPT) 303H, Alkaline Phosphatase 69, Troponin I 0.463H, Total Protein 6.6, Albumin 2.0L, Globulin 4.6, Albumin/Globulin Ratio 0.4L, Random Vancomycin Level 9.5, Hepatitis B Surface Antibody [Pending], Hepatitis B Core Total Antibody [Pending ] 08/28/17 07:16: Arterial Blood pH 7.330L, Arterial Blood Partial Pressure CO2 62.2*H, Arterial Blood Partial Pressure O2 103.7H, Arterial Blood HCO3 32.1H, Arterial Blood Oxygen Saturation 96.9, Arterial Blood Base Excess 5.2, Doroteo Test Positive Height (Feet): 5 Height (Inches): 3.00 Weight (Pounds): 480 General Appearance: other - obese Cardiovascular: normal rate Respiratory/Chest: decreased breath sounds Abdomen: soft Objective no change AGUSTIN CONTRERAS Aug 28, 2017 09:02
--- NOTE | 2017-08-28 10:39 | Pulmonolgy Critical Care Note ---
Critical Care - Asmt/Plan Problems: (1) Acute respiratory failure with hypoxia and hypercapnia (2) Acute renal failure (ARF) (3) Non-STEMI (non-ST elevated myocardial infarction) (4) Septic shock (5) Acute toxic metabolic encephalopathy (6) DM2 (diabetes mellitus, type 2) (7) Lactic acid acidosis Respiratory: monitor respiratory rate, adjust FIO2, CXR Cardiac: continue to monitor HR/BP Renal: F/U I&O, check electrolytes Infectious Disease: check cultures, continue antibiotics Gastrointestinal: continue feedings/current rate Endocrine: monitor blood sugar, continue sliding scale insulin Hematologic: monitor H/H, transfuse if hgb<8.5 Neurologic: keep patient comfortable Prophylaxis: Protonix, Heparin Disposition: transfer to - [facility] Notes 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, 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 with: nurses, consultants, 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 - Objective Last 24 Hour Vital Signs Date Time Temp Pulse Resp B/P (MAP) Pulse Ox O2 Delivery O2 Flow Rate FiO2 08/28/17 10:00 72 21 106/52 100 Nasal Cannula 3.0 08/28/17 09:00 71 20 131/101 98 Nasal Cannula 3.0 08/28/17 08:56 67 125/66 08/28/17 08:27 66 20 100 Nasal Cannula 3.0 32 08/28/17 08:19 Nasal Cannula 3.0 32 08/28/17 08:19 98 Nasal Cannula 3.0 32 08/28/17 08:16 66 22 98 Nasal Cannula 3.0 32 08/28/17 08:00 98.3 69 20 125/66 98 Nasal Cannula 3.0 08/28/17 08:00 63 08/28/17 07:00 69 22 102/46 99 Bi-pap 40 08/28/17 06:00 71 20 122/44 90 Bi-pap 40 08/28/17 05:23 63 26 97 Facial 40 08/28/17 05:00 63 20 111/46 97 Bi-pap 40 08/28/17 04:00 69 08/28/17 04:00 97.9 70 20 115/45 97 Bi-pap 40 08/28/17 03:25 60 30 96 Facial 40 08/28/17 03:00 68 20 118/45 86 Nasal Cannula 3.0 08/28/17 02:00 68 20 114/44 86 Nasal Cannula 3.0 08/28/17 01:39 71 20 97 Nasal Cannula 3.0 32 08/28/17 01:28 32 08/28/17 01:27 73 22 95 Nasal Cannula 3.0 32 08/28/17 01:00 74 20 102/44 97 Nasal Cannula 3.0 08/28/17 00:00 104 21 100/48 98 Nasal Cannula 3.0 08/28/17 00:00 74 08/27/17 23:00 70 23 103/50 93 Nasal Cannula 3.0 08/27/17 22:00 72 23 104/48 93 Nasal Cannula 3.0 08/27/17 21:00 72 23 107/48 93 Nasal Cannula 3.0 08/27/17 20:00 74 08/27/17 20:00 73 24 107/44 96 Nasal Cannula 3.0 08/27/17 19:13 94 Nasal Cannula 3.0 32 08/27/17 19:13 Nasal Cannula 3.0 32 08/27/17 19:10 73 20 97 Nasal Cannula 3.0 32 08/27/17 19:00 71 22 94 Nasal Cannula 3.0 32 08/27/17 19:00 97.9 74 24 95/51 98 Nasal Cannula 3.0 08/27/17 19:00 32 08/27/17 18:00 72 25 111/53 96 Nasal Cannula 3.0 08/27/17 17:06 66 20 94 Nasal Cannula 3.0 08/27/17 17:00 71 19 113/57 97 Nasal Cannula 3.0 08/27/17 16:00 64 08/27/17 16:00 97.7 68 31 127/58 92 Nasal Cannula 3.0 08/27/17 15:00 64 31 126/49 95 Nasal Cannula 3.0 08/27/17 14:00 63 30 135/55 95 Nasal Cannula 3.0 08/27/17 13:00 64 22 128/64 94 Nasal Cannula 3.0 08/27/17 12:00 98.9 58 20 130/67 100 Simple Mask 12.0 40 08/27/17 12:00 58 08/27/17 11:00 57 21 109/52 94 Simple Mask 12.0 40 Status: awake Condition: critical HEENT: atraumatic Lungs: chest wall tender Heart: HR/BP unstable, regular Abdomen: non-tender, active bowel sounds, feeding tube Extremities: edema Accucheck: 166 Critical Care - Subjective ROS Limited/Unobtainable: No ICU Day: 9 Interval Events: tolerating extubation Condition: critical, improving EKG Rhythm: Sinus Rhythm FI02: 32 Vent Support Breath Rate: 8 Vent Support Mode: IMV/SIMV Vent Tidal Volume: 700 Sputum Amount: None PEEP: 5.0 PIP: 38 Tube Feeding Amount: 0 I&O: Intake and Output 08/27/17 08/28/17 19:00 07:00 Intake Total 2815 ml 1300 ml Output Total 1485 ml 1560 ml Balance 1330 ml -260 ml Intake Oral 2760 ml 1300 ml IV Total 55 ml Output Urine Total 1485 ml 1560 ml # Bowel Movements 1 CXR: pulmonary edema ET-Tube: 8.0 ET Position: 24 Labs: Laboratory Tests Test 08/28/17 04:30 08/28/17 07:16 White Blood Count 12.2 K/UL (4.8-10.8) H Red Blood Count 3.51 M/UL (4.20-5.40) L Hemoglobin 8.0 G/DL (12.0-16.0) L Hematocrit 28.9 % (37.0-47.0) L Mean Corpuscular Volume 82 FL (80-99) Mean Corpuscular Hemoglobin 22.8 PG (27.0-31.0) L Mean Corpuscular Hemoglobin Concent 27.6 G/DL (32.0-36.0) L Red Cell Distribution Width 18.7 % (11.6-14.8) H Platelet Count 273 K/UL (150-450) Mean Platelet Volume 7.1 FL (6.5-10.1) Neutrophils (%) (Auto) 66.2 % (45.0-75.0) Lymphocytes (%) (Auto) 21.0 % (20.0-45.0) Monocytes (%) (Auto) 9.9 % (1.0-10.0) Eosinophils (%) (Auto) 2.2 % (0.0-3.0) Basophils (%) (Auto) 0.7 % (0.0-2.0) Sodium Level 143 MMOL/L (136-145) Potassium Level 4.1 MMOL/L (3.5-5.1) Chloride Level 105 MMOL/L (98-107) Carbon Dioxide Level 36 MMOL/L (21-32) H Anion Gap 2 mmol/L (5-15) L Blood Urea Nitrogen 47 mg/dL (7-18) H Creatinine 1.6 MG/DL (0.55-1.30) H Estimat Glomerular Filtration Rate 40.0 mL/min (>60) Glucose Level 155 MG/DL (74-106) H Calcium Level 8.6 MG/DL (8.5-10.1) Phosphorus Level 4.6 MG/DL (2.5-4.9) Magnesium Level 1.9 MG/DL (1.8-2.4) Total Bilirubin 0.5 MG/DL (0.2-1.0) Aspartate Amino Transf (AST/SGOT) 36 U/L (15-37) Alanine Aminotransferase (ALT/SGPT) 303 U/L (12-78) H Alkaline Phosphatase 69 U/L (46-116) Troponin I 0.463 ng/mL (0.000-0.056) Total Protein 6.6 G/DL (6.4-8.2) Albumin 2.0 G/DL (3.4-5.0) L Globulin 4.6 g/dL Albumin/Globulin Ratio 0.4 (1.0-2.7) L Random Vancomycin Level 9.5 ug/mL Hepatitis B Surface Antibody Pending Hepatitis B Core Total Antibody Pending Arterial Blood pH 7.330 (7.350-7.450) Arterial Blood Partial Pressure CO2 62.2 mmHg (35.0-45.0) *H Arterial Blood Partial Pressure O2 103.7 mmHg (75.0-100.0) H Arterial Blood HCO3 32.1 mmol/L (22.0-26.0) H Arterial Blood Oxygen Saturation 96.9 % (92.0-98.0) Arterial Blood Base Excess 5.2 Doroteo Test Positive DOMONIQUE DOBBS Aug 28, 2017 10:39
--- NOTE | 2017-08-28 11:15 | GI Progress Note ---
Assessment/Plan Problems: (1) Shock liver ICD Codes: K72.00 - Acute and subacute hepatic failure without coma SNOMED: 633425351 (2) Anemia ICD Codes: D64.9 - Anemia, unspecified SNOMED: 477846926 (3) Morbid obesity ICD Codes: E66.01 - Morbid (severe) obesity due to excess calories SNOMED: 154027918, 44711362504674 (4) Multiple organ failure SNOMED: 88220204 (5) Transaminitis ICD Codes: R74.0 - Nonspecific elevation of levels of transaminase and lactic acid dehydrogenase [LDH] SNOMED: 988356343, 373269523 (6) Septic shock ICD Codes: A41.9 - Sepsis, unspecified organism; R65.21 - Severe sepsis with septic shock SNOMED: 72110358 (7) DM2 (diabetes mellitus, type 2) ICD Codes: E11.9 - Type 2 diabetes mellitus without complications SNOMED: 56142956 (8) GERD (gastroesophageal reflux disease) ICD Codes: K21.9 - Gastro-esophageal reflux disease without esophagitis SNOMED: 499491161 Status: progressing Status Narrative Discussed with Dr. Cordero. Assessment/Plan extubated on NC on puree diet, adv as tolerated will consider CTAP if patient continue to has abdominal pain transaminitis due to shock liver >> no normal OB stool r/o GI bleed monitor H&H, prn transfusions ppi abx fu labs Objective Last 24 Hour Vital Signs Date Time Temp Pulse Resp B/P (MAP) Pulse Ox O2 Delivery O2 Flow Rate FiO2 08/28/17 10:00 72 21 106/52 100 Nasal Cannula 3.0 08/28/17 09:00 71 20 131/101 98 Nasal Cannula 3.0 08/28/17 08:56 67 125/66 08/28/17 08:27 66 20 100 Nasal Cannula 3.0 32 08/28/17 08:19 Nasal Cannula 3.0 32 08/28/17 08:19 98 Nasal Cannula 3.0 32 08/28/17 08:16 66 22 98 Nasal Cannula 3.0 32 08/28/17 08:00 98.3 69 20 125/66 98 Nasal Cannula 3.0 08/28/17 08:00 63 08/28/17 07:00 69 22 102/46 99 Bi-pap 40 08/28/17 06:00 71 20 122/44 90 Bi-pap 40 08/28/17 05:23 63 26 97 Facial 40 08/28/17 05:00 63 20 111/46 97 Bi-pap 40 08/28/17 04:00 69 08/28/17 04:00 97.9 70 20 115/45 97 Bi-pap 40 08/28/17 03:25 60 30 96 Facial 40 08/28/17 03:00 68 20 118/45 86 Nasal Cannula 3.0 08/28/17 02:00 68 20 114/44 86 Nasal Cannula 3.0 08/28/17 01:39 71 20 97 Nasal Cannula 3.0 32 08/28/17 01:28 32 08/28/17 01:27 73 22 95 Nasal Cannula 3.0 32 08/28/17 01:00 74 20 102/44 97 Nasal Cannula 3.0 08/28/17 00:00 104 21 100/48 98 Nasal Cannula 3.0 08/28/17 00:00 74 08/27/17 23:00 70 23 103/50 93 Nasal Cannula 3.0 08/27/17 22:00 72 23 104/48 93 Nasal Cannula 3.0 08/27/17 21:00 72 23 107/48 93 Nasal Cannula 3.0 08/27/17 20:00 74 08/27/17 20:00 73 24 107/44 96 Nasal Cannula 3.0 08/27/17 19:13 94 Nasal Cannula 3.0 32 08/27/17 19:13 Nasal Cannula 3.0 32 08/27/17 19:10 73 20 97 Nasal Cannula 3.0 32 08/27/17 19:00 71 22 94 Nasal Cannula 3.0 32 08/27/17 19:00 97.9 74 24 95/51 98 Nasal Cannula 3.0 08/27/17 19:00 32 08/27/17 18:00 72 25 111/53 96 Nasal Cannula 3.0 08/27/17 17:06 66 20 94 Nasal Cannula 3.0 08/27/17 17:00 71 19 113/57 97 Nasal Cannula 3.0 08/27/17 16:00 64 08/27/17 16:00 97.7 68 31 127/58 92 Nasal Cannula 3.0 08/27/17 15:00 64 31 126/49 95 Nasal Cannula 3.0 08/27/17 14:00 63 30 135/55 95 Nasal Cannula 3.0 08/27/17 13:00 64 22 128/64 94 Nasal Cannula 3.0 08/27/17 12:00 98.9 58 20 130/67 100 Simple Mask 12.0 40 08/27/17 12:00 58 Intake and Output 08/27/17 08/28/17 19:00 07:00 Intake Total 2815 ml 1300 ml Output Total 1485 ml 1560 ml Balance 1330 ml -260 ml Intake Oral 2760 ml 1300 ml IV Total 55 ml Output Urine Total 1485 ml 1560 ml # Bowel Movements 1 Laboratory Tests Test 08/28/17 04:30 08/28/17 07:16 White Blood Count 12.2 K/UL (4.8-10.8) H Red Blood Count 3.51 M/UL (4.20-5.40) L Hemoglobin 8.0 G/DL (12.0-16.0) L Hematocrit 28.9 % (37.0-47.0) L Mean Corpuscular Volume 82 FL (80-99) Mean Corpuscular Hemoglobin 22.8 PG (27.0-31.0) L Mean Corpuscular Hemoglobin Concent 27.6 G/DL (32.0-36.0) L Red Cell Distribution Width 18.7 % (11.6-14.8) H Platelet Count 273 K/UL (150-450) Mean Platelet Volume 7.1 FL (6.5-10.1) Neutrophils (%) (Auto) 66.2 % (45.0-75.0) Lymphocytes (%) (Auto) 21.0 % (20.0-45.0) Monocytes (%) (Auto) 9.9 % (1.0-10.0) Eosinophils (%) (Auto) 2.2 % (0.0-3.0) Basophils (%) (Auto) 0.7 % (0.0-2.0) Sodium Level 143 MMOL/L (136-145) Potassium Level 4.1 MMOL/L (3.5-5.1) Chloride Level 105 MMOL/L (98-107) Carbon Dioxide Level 36 MMOL/L (21-32) H Anion Gap 2 mmol/L (5-15) L Blood Urea Nitrogen 47 mg/dL (7-18) H Creatinine 1.6 MG/DL (0.55-1.30) H Estimat Glomerular Filtration Rate 40.0 mL/min (>60) Glucose Level 155 MG/DL (74-106) H Calcium Level 8.6 MG/DL (8.5-10.1) Phosphorus Level 4.6 MG/DL (2.5-4.9) Magnesium Level 1.9 MG/DL (1.8-2.4) Total Bilirubin 0.5 MG/DL (0.2-1.0) Aspartate Amino Transf (AST/SGOT) 36 U/L (15-37) Alanine Aminotransferase (ALT/SGPT) 303 U/L (12-78) H Alkaline Phosphatase 69 U/L (46-116) Troponin I 0.463 ng/mL (0.000-0.056) Total Protein 6.6 G/DL (6.4-8.2) Albumin 2.0 G/DL (3.4-5.0) L Globulin 4.6 g/dL Albumin/Globulin Ratio 0.4 (1.0-2.7) L Random Vancomycin Level 9.5 ug/mL Hepatitis B Surface Antibody Pending Hepatitis B Core Total Antibody Pending Arterial Blood pH 7.330 (7.350-7.450) Arterial Blood Partial Pressure CO2 62.2 mmHg (35.0-45.0) *H Arterial Blood Partial Pressure O2 103.7 mmHg (75.0-100.0) H Arterial Blood HCO3 32.1 mmol/L (22.0-26.0) H Arterial Blood Oxygen Saturation 96.9 % (92.0-98.0) Arterial Blood Base Excess 5.2 Doroteo Test Positive Height (Feet): 5 Height (Inches): 3.00 Weight (Pounds): 480 General Appearance: no apparent distress, morbidly obese Cardiovascular: normal rate Respiratory/Chest: normal breath sounds Abdominal Exam: soft Caren Nixon N.P. Aug 28, 2017 11:15
--- NOTE | 2017-08-28 12:49 | General Progress Note ---
Assessment/Plan Problem List: (1) SVT (supraventricular tachycardia) ICD Codes: I47.1 - Supraventricular tachycardia SNOMED: 9815287 (2) Acute respiratory failure with hypoxia and hypercapnia ICD Codes: J96.01 - Acute respiratory failure with hypoxia; J96.02 - Acute respiratory failure with hypercapnia SNOMED: 01462317, 98111021, 410457136 (3) Septic shock ICD Codes: A41.9 - Sepsis, unspecified organism; R65.21 - Severe sepsis with septic shock SNOMED: 85229610 (4) KASHIF (acute kidney injury) ICD Codes: N17.9 - Acute kidney failure, unspecified SNOMED: 89186150 (5) Lactic acid acidosis ICD Codes: E87.2 - Acidosis SNOMED: 69750687 (6) Hyperkalemia ICD Codes: E87.5 - Hyperkalemia; J96.02 - Acute respiratory failure with hypercapnia SNOMED: 80531870, 24139083, 875496254 (7) Acute toxic metabolic encephalopathy (8) Shock liver ICD Codes: K72.00 - Acute and subacute hepatic failure without coma SNOMED: 545325520 (9) Non-STEMI (non-ST elevated myocardial infarction) ICD Codes: I21.4 - Non-ST elevation (NSTEMI) myocardial infarction; J96.02 - Acute respiratory failure with hypercapnia SNOMED: 889232760, 49869172, 497455739 (10) DM2 (diabetes mellitus, type 2) ICD Codes: E11.9 - Type 2 diabetes mellitus without complications SNOMED: 80497161 (11) Asthma ICD Codes: J45.909 - Unspecified asthma, uncomplicated SNOMED: 547283094 (12) GERD (gastroesophageal reflux disease) ICD Codes: K21.9 - Gastro-esophageal reflux disease without esophagitis SNOMED: 521152419 (13) Fatty liver ICD Codes: K76.0 - Fatty (change of) liver, not elsewhere classified SNOMED: 125969786 (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 ICD Codes: R76.8 - Other specified abnormal immunological findings in serum SNOMED: 959352222 Status: stable Assessment/Plan Transfer to [facility] today Pulmonology, Nephrology, GI, ID, Cardiology consulted Empiric vanco, meropenem and azithro per ID F/u cultures Pt extubated on 08/26/17. Monitor respiratory status closely. BiPAP qHS and PRN Duonebs ATC and PRN Add mucomyst Mucinex BID + guaifenesin PRN cough, congestion Now off pressors Arterial line placed 08/20/17 Trend lactate--downtrending Trend trop/EKG--downtrending ASA, statin F/u ECHO--EF 70%, grade 1 diastolic dysfcn, LVH Cont on MTP per cardiology; digoxin d/c'd HD on hold per renal as Cr improving. Last HD 08/22. HD line removed on 08/27 Trend BMP closely s/p mucomyst IV for shock liver/hepatitis per GI Trend LFTs--downtrending Swallow eval--OK for puree diet PPI Pain control, supportive care, bowel regimen DVT Prophylaxis: HSQ Code Status: Full Hospital Classification Declaration: Based on this initial evaluation, and depending on the patient's clinical course, I anticipate that this patient will require hospitalization for 2-3 days for acute respiratory failure, septic shock and close respiratory/hemodynamic monitoring. Dispo: likely back to SNF in 2-3 D/w pt, PCP, renal, pulm, ID regarding mgmt and dispo/w ID re abx. Time of note may not reflect time of encounter. Subjective Date patient seen: Aug 28, 2017 Time patient seen: 12:49 ROS Limited/Unobtainable: No Constitutional: Reports: no symptoms HEENT: Reports: no symptoms Cardiovascular: Reports: no symptoms Respiratory: Reports: cough, shortness of breath Gastrointestinal/Abdominal: Reports: no symptoms Genitourinary: Reports: no symptoms Neurologic/Psychiatric: Reports: no symptoms Endocrine: Reports: no symptoms Hematologic/Lymphatic: Reports: no symptoms Allergies: Coded Allergies: No Known Allergies (Unverified , 06/01/17) All Systems: reviewed and negative except above Subjective No acute o/n events Off pressors now Extubated on 08/26, now on NC Pt awake alert. Doing well on NC so far. C/o cough, congestion, some SOB. Denies f/c, n/v, d/c, chest pain, abd pain Objective Last 24 Hour Vital Signs Date Time Temp Pulse Resp B/P (MAP) Pulse Ox O2 Delivery O2 Flow Rate FiO2 08/28/17 12:00 72 08/28/17 12:00 97.7 72 23 119/97 95 Nasal Cannula 3.0 08/28/17 11:00 76 22 105/52 98 Nasal Cannula 3.0 08/28/17 10:00 72 21 106/52 100 Nasal Cannula 3.0 08/28/17 09:00 71 20 131/101 98 Nasal Cannula 3.0 08/28/17 08:56 67 125/66 08/28/17 08:27 66 20 100 Nasal Cannula 3.0 32 08/28/17 08:19 Nasal Cannula 3.0 32 08/28/17 08:19 98 Nasal Cannula 3.0 32 08/28/17 08:16 66 22 98 Nasal Cannula 3.0 32 08/28/17 08:00 98.3 69 20 125/66 98 Nasal Cannula 3.0 08/28/17 08:00 63 08/28/17 07:00 69 22 102/46 99 Bi-pap 40 08/28/17 06:00 71 20 122/44 90 Bi-pap 40 08/28/17 05:23 63 26 97 Facial 40 08/28/17 05:00 63 20 111/46 97 Bi-pap 40 08/28/17 04:00 69 08/28/17 04:00 97.9 70 20 115/45 97 Bi-pap 40 08/28/17 03:25 60 30 96 Facial 40 08/28/17 03:00 68 20 118/45 86 Nasal Cannula 3.0 08/28/17 02:00 68 20 114/44 86 Nasal Cannula 3.0 08/28/17 01:39 71 20 97 Nasal Cannula 3.0 32 08/28/17 01:28 32 08/28/17 01:27 73 22 95 Nasal Cannula 3.0 32 08/28/17 01:00 74 20 102/44 97 Nasal Cannula 3.0 08/28/17 00:00 104 21 100/48 98 Nasal Cannula 3.0 08/28/17 00:00 74 08/27/17 23:00 70 23 103/50 93 Nasal Cannula 3.0 08/27/17 22:00 72 23 104/48 93 Nasal Cannula 3.0 08/27/17 21:00 72 23 107/48 93 Nasal Cannula 3.0 08/27/17 20:00 74 08/27/17 20:00 73 24 107/44 96 Nasal Cannula 3.0 08/27/17 19:13 94 Nasal Cannula 3.0 32 08/27/17 19:13 Nasal Cannula 3.0 32 08/27/17 19:10 73 20 97 Nasal Cannula 3.0 32 08/27/17 19:00 71 22 94 Nasal Cannula 3.0 32 08/27/17 19:00 97.9 74 24 95/51 98 Nasal Cannula 3.0 08/27/17 19:00 32 08/27/17 18:00 72 25 111/53 96 Nasal Cannula 3.0 08/27/17 17:06 66 20 94 Nasal Cannula 3.0 08/27/17 17:00 71 19 113/57 97 Nasal Cannula 3.0 08/27/17 16:00 64 08/27/17 16:00 97.7 68 31 127/58 92 Nasal Cannula 3.0 08/27/17 15:00 64 31 126/49 95 Nasal Cannula 3.0 08/27/17 14:00 63 30 135/55 95 Nasal Cannula 3.0 08/27/17 13:00 64 22 128/64 94 Nasal Cannula 3.0 Intake and Output 08/27/17 08/28/17 19:00 07:00 Intake Total 2815 ml 1300 ml Output Total 1485 ml 1560 ml Balance 1330 ml -260 ml Intake Oral 2760 ml 1300 ml IV Total 55 ml Output Urine Total 1485 ml 1560 ml # Bowel Movements 1 Laboratory Tests 08/28/17 04:30: White Blood Count 12.2H, Red Blood Count 3.51L, Hemoglobin 8.0L, Hematocrit 28.9L, Mean Corpuscular Volume 82, Mean Corpuscular Hemoglobin 22.8L, Mean Corpuscular Hemoglobin Concent 27.6L, Red Cell Distribution Width 18.7H, Platelet Count 273, Mean Platelet Volume 7.1, Neutrophils (%) (Auto) 66.2, Lymphocytes (%) (Auto) 21.0, Monocytes (%) (Auto) 9.9, Eosinophils (%) (Auto) 2.2, Basophils (%) (Auto) 0.7, Sodium Level 143, Potassium Level 4.1, Chloride Level 105, Carbon Dioxide Level 36H, Anion Gap 2L, Blood Urea Nitrogen 47H, Creatinine 1.6H, Estimat Glomerular Filtration Rate 40.0, Glucose Level 155H, Calcium Level 8.6, Phosphorus Level 4.6, Magnesium Level 1.9, Total Bilirubin 0.5, Aspartate Amino Transf (AST/SGOT) 36, Alanine Aminotransferase (ALT/SGPT) 303H, Alkaline Phosphatase 69, Troponin I 0.463H, Total Protein 6.6, Albumin 2.0L, Globulin 4.6, Albumin/Globulin Ratio 0.4L, Random Vancomycin Level 9.5, Hepatitis B Surface Antibody [Pending], Hepatitis B Core Total Antibody [Pending ] 08/28/17 07:16: Arterial Blood pH 7.330L, Arterial Blood Partial Pressure CO2 62.2*H, Arterial Blood Partial Pressure O2 103.7H, Arterial Blood HCO3 32.1H, Arterial Blood Oxygen Saturation 96.9, Arterial Blood Base Excess 5.2, Doroteo Test Positive Height (Feet): 5 Height (Inches): 3.00 Weight (Pounds): 480 Objective General: awake, alert, morbidly obese Head: normocephalic, without obvious abnormality, atraumatic Eyes: conjunctivae/corneas clear. PERRL, EOM's intact Throat: lips, mucosa, and tongue normal. MMM Neck: supple, symmetrical, trachea midline, and no JVD Lungs: clear to auscultation bilaterally, decreased breath sounds Heart: regular rate and rhythm, S1, S2 normal, no murmur, click, rub or gallop Abdomen: soft, non-tender, non-distended, bowel sounds normal Extremities: extremities normal, atraumatic, no cyanosis or edema Pulses: 2+ and symmetric Skin: skin color, texture, turgor normal; no rashes or lesions Neurologic: grossly intact Cassie Bolivar M.D. Aug 28, 2017 12:49
--- NOTE | 2017-08-28 12:55 | Diagnostic Imaging Report ---
Indication: Shortness of breath Comparison: 08/26/1979 A single view chest radiograph was obtained. FINDINGS/IMPRESSION: Interval removal of central line, endotracheal and NG tubes. Heart size is stable. There is persistent interstitial and patchy bilateral opacities, possibly increased. This is thought to be related to pulmonary edema. Superimposed pneumonia not excludable. No definite pneumothorax.
--- NOTE | 2017-08-28 13:38 | Cardiac Electrophysiology PN ---
Assessment/Plan Assessment/Plan 1. Non-ST elevation myocardial infarction. Trop peak 16.4, down to 1.9. Echocardiogram EF 75%. No chest pain On Aspirin, Lipitor and Lopressor 12.5 bid. Can't do cardiac cath in view of extreme obesity of almost 500 pounds 2. Recurrent SVT at rate 200 bpm. Did not terminate with 6 of adenosine but transiently converted with 12. Finally converted with the second dose of digoxin. Continue Lopressor 12.5 bid and Digoxin 0.125 daily. 3. S/P Respiratory failure . Extubated 4. Accelerated Junctional rhythm. No further, Watch on Lopressor 5. S/P Septic shock. On broad-spectrum intravenous antibiotic and off pressors 6. Morbid obesity 484 Lbs. 7. Severe hyperkalemia, resolved after HD. No further HD. DW manager strategy & account to Subjective Subjective No further SVT or fib. In ICU alert and off the vent x 2 days now. RN at bedside . Objective Last 24 Hour Vital Signs Date Time Temp Pulse Resp B/P (MAP) Pulse Ox O2 Delivery O2 Flow Rate FiO2 08/28/17 13:03 61 20 99 Nasal Cannula 3.0 08/28/17 12:53 62 20 95 Nasal Cannula 3.0 32 08/28/17 12:00 72 08/28/17 12:00 97.7 72 23 119/97 95 Nasal Cannula 3.0 08/28/17 11:00 76 22 105/52 98 Nasal Cannula 3.0 08/28/17 10:00 72 21 106/52 100 Nasal Cannula 3.0 08/28/17 09:00 71 20 131/101 98 Nasal Cannula 3.0 08/28/17 08:56 67 125/66 08/28/17 08:27 66 20 100 Nasal Cannula 3.0 32 08/28/17 08:19 Nasal Cannula 3.0 32 08/28/17 08:19 98 Nasal Cannula 3.0 32 08/28/17 08:16 66 22 98 Nasal Cannula 3.0 32 08/28/17 08:00 98.3 69 20 125/66 98 Nasal Cannula 3.0 08/28/17 08:00 63 08/28/17 07:00 69 22 102/46 99 Bi-pap 40 08/28/17 06:00 71 20 122/44 90 Bi-pap 40 1/19/18 05:23 63 26 97 Facial 40 08/28/17 05:00 63 20 111/46 97 Bi-pap 40 08/28/17 04:00 69 08/28/17 04:00 97.9 70 20 115/45 97 Bi-pap 40 08/28/17 03:25 60 30 96 Facial 40 08/28/17 03:00 68 20 118/45 86 Nasal Cannula 3.0 08/28/17 02:00 68 20 114/44 86 Nasal Cannula 3.0 08/28/17 01:39 71 20 97 Nasal Cannula 3.0 32 08/28/17 01:28 32 08/28/17 01:27 73 22 95 Nasal Cannula 3.0 32 08/28/17 01:00 74 20 102/44 97 Nasal Cannula 3.0 08/28/17 00:00 104 21 100/48 98 Nasal Cannula 3.0 08/28/17 00:00 74 08/27/17 23:00 70 23 103/50 93 Nasal Cannula 3.0 08/27/17 22:00 72 23 104/48 93 Nasal Cannula 3.0 08/27/17 21:00 72 23 107/48 93 Nasal Cannula 3.0 08/27/17 20:00 74 08/27/17 20:00 73 24 107/44 96 Nasal Cannula 3.0 08/27/17 19:13 94 Nasal Cannula 3.0 32 08/27/17 19:13 Nasal Cannula 3.0 32 08/27/17 19:10 73 20 97 Nasal Cannula 3.0 32 08/27/17 19:00 71 22 94 Nasal Cannula 3.0 32 08/27/17 19:00 97.9 74 24 95/51 98 Nasal Cannula 3.0 08/27/17 19:00 32 08/27/17 18:00 72 25 111/53 96 Nasal Cannula 3.0 08/27/17 17:06 66 20 94 Nasal Cannula 3.0 08/27/17 17:00 71 19 113/57 97 Nasal Cannula 3.0 08/27/17 16:00 64 08/27/17 16:00 97.7 68 31 127/58 92 Nasal Cannula 3.0 08/27/17 15:00 64 31 126/49 95 Nasal Cannula 3.0 08/27/17 14:00 63 30 135/55 95 Nasal Cannula 3.0 Intake and Output 08/27/17 08/28/17 19:00 07:00 Intake Total 2815 ml 1300 ml Output Total 1485 ml 1560 ml Balance 1330 ml -260 ml Intake Oral 2760 ml 1300 ml IV Total 55 ml Output Urine Total 1485 ml 1560 ml # Bowel Movements 1 Laboratory Tests Test 08/28/17 04:30 08/28/17 07:16 White Blood Count 12.2 K/UL (4.8-10.8) H Red Blood Count 3.51 M/UL (4.20-5.40) L Hemoglobin 8.0 G/DL (12.0-16.0) L Hematocrit 28.9 % (37.0-47.0) L Mean Corpuscular Volume 82 FL (80-99) Mean Corpuscular Hemoglobin 22.8 PG (27.0-31.0) L Mean Corpuscular Hemoglobin Concent 27.6 G/DL (32.0-36.0) L Red Cell Distribution Width 18.7 % (11.6-14.8) H Platelet Count 273 K/UL (150-450) Mean Platelet Volume 7.1 FL (6.5-10.1) Neutrophils (%) (Auto) 66.2 % (45.0-75.0) Lymphocytes (%) (Auto) 21.0 % (20.0-45.0) Monocytes (%) (Auto) 9.9 % (1.0-10.0) Eosinophils (%) (Auto) 2.2 % (0.0-3.0) Basophils (%) (Auto) 0.7 % (0.0-2.0) Sodium Level 143 MMOL/L (136-145) Potassium Level 4.1 MMOL/L (3.5-5.1) Chloride Level 105 MMOL/L (98-107) Carbon Dioxide Level 36 MMOL/L (21-32) H Anion Gap 2 mmol/L (5-15) L Blood Urea Nitrogen 47 mg/dL (7-18) H Creatinine 1.6 MG/DL (0.55-1.30) H Estimat Glomerular Filtration Rate 40.0 mL/min (>60) Glucose Level 155 MG/DL (74-106) H Calcium Level 8.6 MG/DL (8.5-10.1) Phosphorus Level 4.6 MG/DL (2.5-4.9) Magnesium Level 1.9 MG/DL (1.8-2.4) Total Bilirubin 0.5 MG/DL (0.2-1.0) Aspartate Amino Transf (AST/SGOT) 36 U/L (15-37) Alanine Aminotransferase (ALT/SGPT) 303 U/L (12-78) H Alkaline Phosphatase 69 U/L (46-116) Troponin I 0.463 ng/mL (0.000-0.056) Total Protein 6.6 G/DL (6.4-8.2) Albumin 2.0 G/DL (3.4-5.0) L Globulin 4.6 g/dL Albumin/Globulin Ratio 0.4 (1.0-2.7) L Random Vancomycin Level 9.5 ug/mL Hepatitis B Surface Antibody Pending Hepatitis B Core Total Antibody Pending Arterial Blood pH 7.330 (7.350-7.450) Arterial Blood Partial Pressure CO2 62.2 mmHg (35.0-45.0) *H Arterial Blood Partial Pressure O2 103.7 mmHg (75.0-100.0) H Arterial Blood HCO3 32.1 mmol/L (22.0-26.0) H Arterial Blood Oxygen Saturation 96.9 % (92.0-98.0) Arterial Blood Base Excess 5.2 Doroteo Test Positive Objective HEENT: No JVD LUNGS: Decreased breath sounds. CARDIOVASCULAR: Regular S1 and S2 with no gallop. ABDOMEN: Morbidly obese. EXTREMITIES: 2+ pitting edema. DIANDRA CUMMINGS Aug 28, 2017 13:38
[2017-08-28] MEDS ORDERED: Nitroglycerin Subl 0.4mg tab SL PRN (14:45)
[2017-08-28] MEDS ORDERED: Albuterol/Ipratropium 3ml neb HHN PRN (15:00)
[2017-08-28] MEDS ORDERED: Miralax 17gm pkt GT PRN (15:00)
[2017-08-28] MEDS ORDERED: guaiFENesin 100mg/5ml Liq ud ORAL PRN ×2 (15:00→19:00)
[2017-08-28] MEDS: Meropenem 1 GM in NS 55 ML IVPB SCH ×2 (15:41→21:18)
[2017-08-28] MEDS ORDERED: guaiFENesin ER 600mg tab ORAL SCH (18:00)
--- NOTE | 2017-08-28 18:29 | Infectious Diseases Prog Note ---
Assessment/Plan Assessment/Plan ASSESSMENT AND PLAN: 1. sepsis, shock, ? cap, ? HCAP/aspiration pna, pulmonary edema, fevers, leukocytosis, influenza negative, hepatitis b igm core antibody + - clinically improved, off pressors, extubated, fevers resolved, mild leukocytosis persists - chest x-ray stable, sputum culture negative but on abx, mycoplasma and legionella pending - vancomycin and meropenem x 3 days (will give at least 10 days abx tx) - f/u labs and chest x-ray - mark care, supportive care - d/w Dr. Mendez 2. Acute kidney injury, on hemodialysis. 3. Elevated liver enzymes, likely shock liver. Check hepatitis panel. 4. Anemia. 5. Hypertension. 6. Diabetes. 7. Gastroesophageal reflux disease. 8. Morbid obesity. 9. Shortness of breath. 10. Hypoxia. 11. Respiratory failure. 12. On ventilator. 13. Intensive care unit care. 14. BiPAP, hypercapnia. 15. Asthma. 16. Blood sugar and blood pressure treatment for diabetes and hypertension per primary. 17. [id number] myocardial infarction history. 18. Hyperkalemia. 19. Allergies negative. 20. Social history negative. 21. Family history noncontributory. 22. mar noted. 23. Case discussed with RN, intensive care unit care. 24. No known drug allergies. 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 Subjective Constitutional: Reports: fatigue, other - extubated, no pressors, Denies: fever HEENT: Reports: congestion - mild Respiratory: Denies: shortness of breath Cardiovascular: Denies: chest pain Gastrointestinal/Abdominal: Denies: nausea, vomiting, diarrhea Genitourinary: Reports: other - + vargas Neurologic: Denies: headache Psychiatric: Denies: depression Skin: Denies: rash Hematologic: Denies: bleeding Musculoskeletal: Denies: pain Allergies: Coded Allergies: No Known Allergies (Unverified , 06/01/17) Objective Vital Signs Last 24 Hour Vital Signs Date Time Temp Pulse Resp B/P (MAP) Pulse Ox O2 Delivery O2 Flow Rate FiO2 08/28/17 16:00 97.7 62 20 113/53 98 Nasal Cannula 3.0 08/28/17 16:00 68 08/28/17 14:19 97.7 67 20 113/53 99 Nasal Cannula 3.0 08/28/17 14:00 67 21 114/52 94 Nasal Cannula 3.0 08/28/17 13:03 61 20 99 Nasal Cannula 3.0 08/28/17 13:00 62 20 109/46 99 Nasal Cannula 3.0 08/28/17 12:53 62 20 95 Nasal Cannula 3.0 32 08/28/17 12:00 72 08/28/17 12:00 97.7 72 23 119/97 95 Nasal Cannula 3.0 08/28/17 11:00 76 22 105/52 98 Nasal Cannula 3.0 08/28/17 10:00 72 21 106/52 100 Nasal Cannula 3.0 08/28/17 09:00 71 20 131/101 98 Nasal Cannula 3.0 08/28/17 08:56 67 125/66 08/28/17 08:27 66 20 100 Nasal Cannula 3.0 32 08/28/17 08:19 Nasal Cannula 3.0 32 08/28/17 08:19 98 Nasal Cannula 3.0 32 08/28/17 08:16 66 22 98 Nasal Cannula 3.0 32 08/28/17 08:00 98.3 69 20 125/66 98 Nasal Cannula 3.0 08/28/17 08:00 63 08/28/17 07:00 69 22 102/46 99 Bi-pap 40 08/28/17 06:00 71 20 122/44 90 Bi-pap 40 08/28/17 05:23 63 26 97 Facial 40 08/28/17 05:00 63 20 111/46 97 Bi-pap 40 08/28/17 04:00 69 08/28/17 04:00 97.9 70 20 115/45 97 Bi-pap 40 08/28/17 03:25 60 30 96 Facial 40 08/28/17 03:00 68 20 118/45 86 Nasal Cannula 3.0 08/28/17 02:00 68 20 114/44 86 Nasal Cannula 3.0 08/28/17 01:39 71 20 97 Nasal Cannula 3.0 32 08/28/17 01:28 32 08/28/17 01:27 73 22 95 Nasal Cannula 3.0 32 08/28/17 01:00 74 20 102/44 97 Nasal Cannula 3.0 08/28/17 00:00 104 21 100/48 98 Nasal Cannula 3.0 08/28/17 00:00 74 08/27/17 23:00 70 23 103/50 93 Nasal Cannula 3.0 08/27/17 22:00 72 23 104/48 93 Nasal Cannula 3.0 08/27/17 21:00 72 23 107/48 93 Nasal Cannula 3.0 08/27/17 20:00 74 08/27/17 20:00 73 24 107/44 96 Nasal Cannula 3.0 08/27/17 19:13 94 Nasal Cannula 3.0 32 08/27/17 19:13 Nasal Cannula 3.0 32 08/27/17 19:10 73 20 97 Nasal Cannula 3.0 32 08/27/17 19:00 71 22 94 Nasal Cannula 3.0 32 08/27/17 19:00 97.9 74 24 95/51 98 Nasal Cannula 3.0 08/27/17 19:00 32 Height (Feet): 5 Height (Inches): 3.00 Weight (Pounds): 480 General Appearance: no acute distress HEENT: normocephalic, atraumatic, anicteric, mucous membranes moist Respiratory/Chest: crackles/rales, rhonchi - bilaterally Cardiovascular: normal rate, regular rhythm, no gallop/murmur, no JVD Abdomen: normal bowel sounds, soft, non tender, no organomegaly, non distended Genitourinary: other - + vargas Extremities: no cyanosis Skin: no rash 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 Continued slight improved aeration in the right mid/lower lung. 08/24 - chest x-ray - Impression: Since is interstitial and bilateral airspace opacities with interval worsening of aeration of the right lung compared to one day prior. 08/26 - chest x-ray - Findings: Tubes and lines are stable. Cardiomegaly is stable. Pulmonary vascular congestion or interstitial edema is stable. IMPRESSION: Moderate CHF unchanged 08/28 - chest x-ray - FINDINGS/IMPRESSION: Interval removal of central line, endotracheal and NG tubes. Heart size is stable. There is persistent interstitial and patchy bilateral opacities, possibly increased. This is thought to be related to pulmonary edema. Superimposed pneumonia not excludable. No definite pneumothorax. Microbiology Date/Time Source Procedure Growth Status 08/19/17 07:55 Blood Blood Culture - Final NO GROWTH AFTER 5 DAYS Complete 08/23/17 03:30 Sputum Gram Stain - Final Complete 08/23/17 03:30 Sputum Culture - Final Tamia Albicans Usual Upper Respiratory Cassandra Complete 08/19/17 08:45 Rectum VRE Culture - Final NO VANCOMYCIN RESISTANT ENTEROCOCCUS ... Complete Laboratory Tests Test 08/28/17 04:30 08/28/17 07:16 White Blood Count 12.2 K/UL (4.8-10.8) H Red Blood Count 3.51 M/UL (4.20-5.40) L Hemoglobin 8.0 G/DL (12.0-16.0) L Hematocrit 28.9 % (37.0-47.0) L Mean Corpuscular Volume 82 FL (80-99) Mean Corpuscular Hemoglobin 22.8 PG (27.0-31.0) L Mean Corpuscular Hemoglobin Concent 27.6 G/DL (32.0-36.0) L Red Cell Distribution Width 18.7 % (11.6-14.8) H Platelet Count 273 K/UL (150-450) Mean Platelet Volume 7.1 FL (6.5-10.1) Neutrophils (%) (Auto) 66.2 % (45.0-75.0) Lymphocytes (%) (Auto) 21.0 % (20.0-45.0) Monocytes (%) (Auto) 9.9 % (1.0-10.0) Eosinophils (%) (Auto) 2.2 % (0.0-3.0) Basophils (%) (Auto) 0.7 % (0.0-2.0) Sodium Level 143 MMOL/L (136-145) Potassium Level 4.1 MMOL/L (3.5-5.1) Chloride Level 105 MMOL/L (98-107) Carbon Dioxide Level 36 MMOL/L (21-32) H Anion Gap 2 mmol/L (5-15) L Blood Urea Nitrogen 47 mg/dL (7-18) H Creatinine 1.6 MG/DL (0.55-1.30) H Estimat Glomerular Filtration Rate 40.0 mL/min (>60) Glucose Level 155 MG/DL (74-106) H Calcium Level 8.6 MG/DL (8.5-10.1) Phosphorus Level 4.6 MG/DL (2.5-4.9) Magnesium Level 1.9 MG/DL (1.8-2.4) Total Bilirubin 0.5 MG/DL (0.2-1.0) Aspartate Amino Transf (AST/SGOT) 36 U/L (15-37) Alanine Aminotransferase (ALT/SGPT) 303 U/L (12-78) H Alkaline Phosphatase 69 U/L (46-116) Troponin I 0.463 ng/mL (0.000-0.056) Total Protein 6.6 G/DL (6.4-8.2) Albumin 2.0 G/DL (3.4-5.0) L Globulin 4.6 g/dL Albumin/Globulin Ratio 0.4 (1.0-2.7) L Random Vancomycin Level 9.5 ug/mL Hepatitis B Surface Antibody Pending Hepatitis B Core Total Antibody Pending Arterial Blood pH 7.330 (7.350-7.450) Arterial Blood Partial Pressure CO2 62.2 mmHg (35.0-45.0) *H Arterial Blood Partial Pressure O2 103.7 mmHg (75.0-100.0) H Arterial Blood HCO3 32.1 mmol/L (22.0-26.0) H Arterial Blood Oxygen Saturation 96.9 % (92.0-98.0) Arterial Blood Base Excess 5.2 Doroteo Test Positive Current Medications Medications (Trade) Dose Ordered Sig/Felipe Route PRN Reason Start Time Stop Time Status Last Admin Dose Admin Acetaminophen (Tylenol) 650 mg Q6H PRN NG Mild Pain/Temp > 100.1 08/28/17 15:00 09/27/17 14:59 Acetylcysteine (Mucomyst) 200 mg Q6HRT HHN 08/28/17 19:00 09/27/17 18:59 Albuterol/ Ipratropium (Albuterol/ Ipratropium) 3 ml Q4H PRN HHN Shortness of Breath 08/28/17 15:00 09/01/17 14:59 Albuterol/ Ipratropium (Albuterol/ Ipratropium) 3 ml Q6HRT HHN 08/28/17 19:00 09/01/17 15:29 Allopurinol (Allopurinol) 300 mg DAILY NG 08/29/17 09:00 09/25/17 08:59 Aspirin (ASA) 81 mg DAILY GT 08/29/17 09:00 09/19/17 08:59 Atorvastatin Calcium (Lipitor) 20 mg BEDTIME GT 08/28/17 21:00 09/21/17 20:59 Chlorhexidine Gluconate (Vicki-Hex 2%) 1 applic DAILY@2000 TOPIC 08/28/17 20:00 09/19/17 19:59 Dextrose (Dextrose 50%) STAT PRN IV Hypoglycemia 08/28/17 15:00 09/27/17 14:59 Epoetin Dario (Procrit (for ESRD on dialysis)) 10,000 units MON-WED-THU SUBQ 08/28/17 21:00 09/20/17 20:59 Guaifenesin (Mucinex ER) 1,200 mg TWICE A DAY ORAL 08/28/17 18:00 09/27/17 17:59 08/28/17 17:45 Guaifenesin (Robitussin) 200 mg Q4H PRN ORAL For Cough 08/28/17 19:00 09/27/17 18:59 Heparin Sodium (Porcine) (Heparin 5000 units/ml) 5,000 units EVERY 12 HOURS SUBQ 08/28/17 21:00 09/21/17 20:59 Insulin Aspart (NovoLOG) BEFORE MEALS AND HS SUBQ 08/28/17 16:30 09/18/17 12:29 08/28/17 16:23 Meropenem 1 gm/ Sodium Chloride 55 ml @ 110 mls/hr Q8HR IVPB 08/28/17 14:45 09/01/17 13:59 08/28/17 15:41 Metoprolol Tartrate (Lopressor) 12.5 mg DAILY GT 08/29/17 09:00 09/23/17 20:59 Nitroglycerin (Ntg) 0.4 mg Q5MIN X 3 DOSES PRN SL Prn Chest Pain 08/28/17 14:45 09/18/17 11:59 Ondansetron HCl (Zofran) 4 mg Q6H PRN IVP Nausea & Vomiting 08/28/17 15:00 09/18/17 14:59 Pantoprazole (Protonix) 40 mg DAILY IV 08/29/17 09:00 09/19/17 08:59 Polyethylene Glycol (Miralax) 17 gm DAILYPRN PRN GT Constipation 08/28/17 15:00 09/27/17 14:59 08/28/17 17:45 Vancomycin HCl (Vanco rx to dose) 1 ea DAILYPRN PRN MISC RX TO DOSE PROTOCOL 08/28/17 15:00 09/27/17 14:59 Vancomycin HCl/ Dextrose 250 ml @ 125 mls/hr Q48H IVPB 08/30/17 09:00 09/04/17 08:59 JUNI ABDUL Aug 28, 2017 18:29
[2017-08-28] MEDS ORDERED: Dyna-Hex 2% Top Sol 2oz TOPIC SCH (20:00)
[2017-08-28] MEDS ORDERED: Atorvastatin 20mg tab GT SCH (21:00)
[2017-08-28] MEDS ORDERED: Epogen (for ESRD on dialysis) SUBQ SCH (21:00)
[2017-08-28] MEDS: Acetaminophen 650mg/20.3ml NG PRN (21:05)
[2017-08-29] VITALS: BP 134/60
[2017-08-29] MEDS: Albuterol/Ipratropium 3ml neb HHN SCH ×4 (01:20→20:49)
[2017-08-29 04:30] VITALS: BP 132/58
[2017-08-29] MEDS: Acetaminophen 650mg/20.3ml NG PRN (05:54)
[2017-08-29] MEDS: Meropenem 1 GM in NS 55 ML IVPB SCH ×3 (05:54→22:07)
[2017-08-29] MEDS: NovoLOG Insulin Flexpen SUBQ SCH ×4 (06:34→20:52)
[2017-08-29 06:35] LABS: BASOPHILS % (AUTO) 0.9 % (0.0-2.0); EOSINOPHILS % (AUTO) 2.2 % (0.0-3.0); HEMOGLOBIN 8.4 G/DL (12.0-16.0); LYMPHOCYTES % (AUTO) 24.9 % (20.0-45.0); MEAN CORPUSCULAR VOLUME 83 FL (80-99); MONOCYTES % (AUTO) 9.1 % (1.0-10.0); NEUTROPHILS % (AUTO) 62.9 % (45.0-75.0); PLATELET COUNT 318 K/UL (150-450); RED BLOOD COUNT 3.74 M/UL (4.20-5.40); RED CELL DISTRIBUTION WIDTH 18.7 % (11.6-14.8)
--- NOTE | 2017-08-29 07:35 | Pulmonology Progress Note ---
Assessment/Plan Assessment/Plan ASSESSMENT Acute hypoxemic hypercapnic RF requiring intubation s/p extubation 08/26 Sepsis with shock Possible HCAP vs aspiration NSTEMI shock liver ARF requiring HD Acute hyperkalemia acute toxic metabolic encephalopathy ( due ti shock and sepsis) MOF Anemia of chronic disease morbid obesity moderate pulmonary HTN likely BASHIR Asthma GERD PLAN OF CARE YESI status extubated , off pressors, off NG tube On Bipap at HS and prn currently O2 via NC, no resp distress titrate O2 pulmonary toilet fup with CXR and ABG Cardio follows trend troponin. ECG ECHO with pEF 70% and RVSP of 45, moderate LVH Medical management per cardio On ASA statin, off Digoxin Abx, ID follows Sputum cx + judy, blood and influenza screen negative Required start of HD, s/p placement of R jugular HD catheter last HD 08/22 creat trending down nephro follows HD catheter removed, no further HD needed ARF resolved GI follows trend LFT, s/p Mucomyst IV for shock liver Swallow eval noted diet as per ST recommendations bowel regimen pain management DVT GI prophylaxis likely has BASHIR patient was advised to have sleep study as outpatient transfer to [facility] floor case discussed and evaluated by supervising physician Subjective Allergies: Coded Allergies: No Known Allergies (Unverified , 06/01/17) Subjective no chest pain, no SOB, was observed in [facility] after transfer from ICU, no acute events this am being transferred to [facility] floor Objective Last 24 Hour Vital Signs Date Time Temp Pulse Resp B/P (MAP) Pulse Ox O2 Delivery O2 Flow Rate FiO2 08/29/17 07:29 99 Nasal Cannula 2.0 28 08/29/17 07:29 Nasal Cannula 2.0 28 08/29/17 07:28 59 20 99 Nasal Cannula 2.0 28 08/29/17 07:23 58 20 99 Nasal Cannula 3.0 32 08/29/17 06:24 98.4 08/29/17 04:30 98.1 65 20 132/58 98 Nasal Cannula 3.0 08/29/17 04:00 63 08/29/17 03:20 72 23 98 Facial 30 08/29/17 01:36 68 25 99 Bi-pap 30 08/29/17 01:22 60 26 98 Facial 30 08/29/17 01:21 60 26 98 Bi-pap 30 08/29/17 00:00 98.4 65 28 134/60 97 Bi-pap 30 08/29/17 00:00 81 08/28/17 22:57 83 27 97 Facial 30 08/28/17 20:00 99.2 78 32 123/55 98 Nasal Cannula 3.0 08/28/17 20:00 79 08/28/17 19:46 82 20 98 Nasal Cannula 3.0 32 08/28/17 19:30 95 Nasal Cannula 3.0 32 08/28/17 19:30 81 20 95 Nasal Cannula 3.0 32 08/28/17 19:30 Nasal Cannula 3.0 32 08/28/17 16:00 97.7 62 20 113/53 98 Nasal Cannula 3.0 08/28/17 16:00 68 08/28/17 14:19 97.7 67 20 113/53 99 Nasal Cannula 3.0 08/28/17 14:00 67 21 114/52 94 Nasal Cannula 3.0 08/28/17 13:03 61 20 99 Nasal Cannula 3.0 08/28/17 13:00 62 20 109/46 99 Nasal Cannula 3.0 08/28/17 12:53 62 20 95 Nasal Cannula 3.0 32 08/28/17 12:00 72 08/28/17 12:00 97.7 72 23 119/97 95 Nasal Cannula 3.0 08/28/17 11:00 76 22 105/52 98 Nasal Cannula 3.0 08/28/17 10:00 72 21 106/52 100 Nasal Cannula 3.0 08/28/17 09:00 71 20 131/101 98 Nasal Cannula 3.0 08/28/17 08:56 67 125/66 08/28/17 08:27 66 20 100 Nasal Cannula 3.0 32 08/28/17 08:19 Nasal Cannula 3.0 32 08/28/17 08:19 98 Nasal Cannula 3.0 32 08/28/17 08:16 66 22 98 Nasal Cannula 3.0 32 08/28/17 08:00 98.3 69 20 125/66 98 Nasal Cannula 3.0 08/28/17 08:00 63 Intake and Output 08/28/17 08/29/17 19:00 07:00 Intake Total 2095 ml 1085 ml Output Total 850 ml 2000 ml Balance 1245 ml -915 ml Intake Oral 1780 ml 1030 ml IV Total 305 ml 55 ml Other 10 ml Output Urine Total 850 ml 2000 ml General Appearance: no acute distress, other - A/A/O x 3 morbidly obese Aa female in NAD HEENT: normocephalic, atraumatic, anicteric, mucous membranes moist Respiratory/Chest: lungs clear - with por air exchange , no respiratory distress Cardiovascular: normal peripheral pulses, normal rate, regular rhythm - SR, no JVD Abdomen: normal bowel sounds, soft, non tender - obese Extremities: no edema Neurologic/Psychiatric: alert, oriented x 3, responsive Musculoskeletal: normal muscle bulk Laboratory Tests 08/29/17 06:20: White Blood Count 11.0H, Red Blood Count 3.74L, Hemoglobin 8.4L, Hematocrit 31.0L, Mean Corpuscular Volume 83, Mean Corpuscular Hemoglobin 22.5L, Mean Corpuscular Hemoglobin Concent 27.2L, Red Cell Distribution Width 18.7H, Platelet Count 318, Mean Platelet Volume 6.7, Neutrophils (%) (Auto) 62.9, Lymphocytes (%) (Auto) 24.9, Monocytes (%) (Auto) 9.1, Eosinophils (%) (Auto) 2.2, Basophils (%) (Auto) 0.9, Sodium Level [Pending], Potassium Level [Pending] , Chloride Level [Pending], Carbon Dioxide Level [Pending], Blood Urea Nitrogen [Pending], Creatinine [Pending], Estimat Glomerular Filtration Rate [Pending], Glucose Level [Pending], Calcium Level [Pending], Total Bilirubin [Pending], Aspartate Amino Transf (AST/SGOT) [Pending], Alanine Aminotransferase (ALT/SGPT ) [Pending], Alkaline Phosphatase [Pending], Pro-B-Type Natriuretic Peptide [ Pending], Total Protein [Pending], Albumin [Pending], Globulin [Pending] Current Medications Medications (Trade) Dose Ordered Sig/Felipe Route PRN Reason Start Time Stop Time Status Last Admin Dose Admin Acetaminophen (Tylenol) 650 mg Q6H PRN NG Mild Pain/Temp > 100.1 08/28/17 15:00 09/27/17 14:59 08/29/17 05:54 Acetylcysteine (Mucomyst) 200 mg Q6HRT HHN 08/28/17 19:00 09/27/17 18:59 08/29/17 01:21 Albuterol/ Ipratropium (Albuterol/ Ipratropium) 3 ml Q4H PRN HHN Shortness of Breath 08/28/17 15:00 09/01/17 14:59 Albuterol/ Ipratropium (Albuterol/ Ipratropium) 3 ml Q6HRT HHN 08/28/17 19:00 09/01/17 15:29 08/29/17 07:17 Allopurinol (Allopurinol) 300 mg DAILY NG 08/29/17 09:00 09/25/17 08:59 Aspirin (ASA) 81 mg DAILY GT 08/29/17 09:00 09/19/17 08:59 Atorvastatin Calcium (Lipitor) 20 mg BEDTIME GT 08/28/17 21:00 09/21/17 20:59 08/28/17 21:17 Dextrose (Dextrose 50%) STAT PRN IV Hypoglycemia 08/28/17 15:00 09/27/17 14:59 Epoetin Dario (Procrit (for ESRD on dialysis)) 10,000 units THU-THU-THU SUBQ 08/28/17 21:00 09/20/17 20:59 08/28/17 21:05 Guaifenesin (Mucinex ER) 1,200 mg TWICE A DAY ORAL 08/28/17 18:00 09/27/17 17:59 08/28/17 17:45 Guaifenesin (Robitussin) 200 mg Q4H PRN ORAL For Cough 08/28/17 19:00 09/27/17 18:59 08/28/17 21:17 Heparin Sodium (Porcine) (Heparin 5000 units/ml) 5,000 units EVERY 12 HOURS SUBQ 08/28/17 21:00 09/21/17 20:59 08/28/17 21:08 Insulin Aspart (NovoLOG) BEFORE MEALS AND HS SUBQ 08/28/17 16:30 09/18/17 12:29 08/29/17 06:34 Meropenem 1 gm/ Sodium Chloride 55 ml @ 110 mls/hr Q8HR IVPB 08/28/17 14:45 09/01/17 13:59 08/29/17 05:54 Metoprolol Tartrate (Lopressor) 12.5 mg DAILY GT 08/29/17 09:00 09/23/17 20:59 Nitroglycerin (Ntg) 0.4 mg Q5MIN X 3 DOSES PRN SL Prn Chest Pain 08/28/17 14:45 09/18/17 11:59 Ondansetron HCl (Zofran) 4 mg Q6H PRN IVP Nausea & Vomiting 08/28/17 15:00 09/18/17 14:59 Pantoprazole (Protonix) 40 mg DAILY IV 08/29/17 09:00 09/19/17 08:59 Polyethylene Glycol (Miralax) 17 gm DAILYPRN PRN GT Constipation 08/28/17 15:00 09/27/17 14:59 08/28/17 17:45 Vancomycin HCl (Vanco rx to dose) 1 ea DAILYPRN PRN MISC RX TO DOSE PROTOCOL 08/28/17 15:00 09/27/17 14:59 Vancomycin HCl/ Dextrose 250 ml @ 125 mls/hr Q48H IVPB 08/30/17 09:00 09/04/17 08:59 Alexx (Suhas)Rosibel NP Aug 29, 2017 07:35
[2017-08-29 08:00] VITALS: BP 129/93
[2017-08-29 08:04] LABS: ALANINE AMINOTRANSFERASE 255 U/L (12-78); ALBUMIN/GLOBULIN RATIO 0.4 (1.0-2.7); ALKALINE PHOSPHATASE 74 U/L (46-116); ANION GAP 5 mmol/L (5-15); ASPARTATE AMINO TRANSFERASE 32 U/L (15-37); BILIRUBIN,TOTAL 0.5 MG/DL (0.2-1.0); BLOOD UREA NITROGEN 37 mg/dL (7-18); CALCIUM 8.5 MG/DL (8.5-10.1); CARBON DIOXIDE 36 MMOL/L (21-32); CHLORIDE 102 MMOL/L (98-107); CREATININE 1.5 MG/DL (0.55-1.30); POTASSIUM 4.3 MMOL/L (3.5-5.1); SODIUM 143 MMOL/L (136-145)
[2017-08-29] MEDS: guaiFENesin ER 600mg tab ORAL SCH ×2 (08:43→17:45)
[2017-08-29] MEDS: Heparin 5000 units/ml inj SUBQ SCH ×2 (08:45→20:51)
[2017-08-29] MEDS ORDERED: Aspirin Baby 81mg GT SCH (09:00)
[2017-08-29] MEDS ORDERED: Metoprolol Tartrate 12.5mg TAB GT SCH (09:00)
[2017-08-29] MEDS ORDERED: Pantoprazole Inj IV SCH (09:00)
--- NOTE | 2017-08-29 09:36 | Diagnostic Imaging Report ---
Indication: Reason For Exam: DYSPNEA Technique: XRAY Chest 1v Comparison:08/28/2017 Findings: The heart remains enlarged. Pulmonary vascular redistribution is noted. There is some interstitial disease but this may have decreased slightly. No pleural fluid. Bones are unremarkable. Impression: Cardiomegaly with congestive heart failure, possibly minimally decreased from previous study.
[2017-08-29] MEDS ORDERED: Nitroglycerin Subl 0.4mg tab SL PRN (10:30)
[2017-08-29] MEDS ORDERED: Miralax 17gm pkt GT PRN (10:30)
[2017-08-29] MEDS ORDERED: Albuterol/Ipratropium 3ml neb HHN PRN (11:00)
[2017-08-29] MEDS ORDERED: guaiFENesin 100mg/5ml Liq ud ORAL PRN (11:00)
--- NOTE | 2017-08-29 12:14 | Nephrology Progress Note ---
Assessment/Plan Problem List: (1) Acute renal failure (ARF) (2) Acute respiratory acidosis (3) Lactic acid acidosis (4) Septic shock (5) Acute respiratory failure with hypoxia and hypercapnia (6) Elevated troponin I level Assessment acute renal failure, Cr lowering Hyperkalemia resolved sepsis, high Lactic , acidosis low BP resolved resp failure now extubated obese rapid rise in Troponin- now on way down Plan right jugular dialysis catheter removed under sterile conditions PRN diuretics, zaroxyllin hold Dig and Lopressor for low HR Last dialysis 08/22 K , Mg, Phos supplements as needed per cardiology and ID and pulm discussed with ID monitor renal parameters and dialysis as needed Subjective ROS Limited/Unobtainable: No Constitutional: Reports: malaise Objective Objective Last 24 Hour Vital Signs Date Time Temp Pulse Resp B/P (MAP) Pulse Ox O2 Delivery O2 Flow Rate FiO2 08/29/17 08:43 71 129/93 08/29/17 08:00 98.1 71 19 129/93 92 Nasal Cannula 3.0 08/29/17 07:29 99 Nasal Cannula 2.0 28 08/29/17 07:29 Nasal Cannula 2.0 28 08/29/17 07:28 59 20 99 Nasal Cannula 2.0 28 08/29/17 07:23 58 20 99 Nasal Cannula 3.0 32 08/29/17 06:24 98.4 08/29/17 04:30 98.1 65 20 132/58 98 Nasal Cannula 3.0 08/29/17 04:00 63 08/29/17 03:20 72 23 98 Facial 30 08/29/17 01:36 68 25 99 Bi-pap 30 08/29/17 01:22 60 26 98 Facial 30 08/29/17 01:21 60 26 98 Bi-pap 30 08/29/17 00:00 98.4 65 28 134/60 97 Bi-pap 30 08/29/17 00:00 81 08/28/17 22:57 83 27 97 Facial 30 08/28/17 20:00 99.2 78 32 123/55 98 Nasal Cannula 3.0 08/28/17 20:00 79 08/28/17 19:46 82 20 98 Nasal Cannula 3.0 32 08/28/17 19:30 95 Nasal Cannula 3.0 32 08/28/17 19:30 81 20 95 Nasal Cannula 3.0 32 08/28/17 19:30 Nasal Cannula 3.0 32 08/28/17 16:00 97.7 62 20 113/53 98 Nasal Cannula 3.0 08/28/17 16:00 68 08/28/17 14:19 97.7 67 20 113/53 99 Nasal Cannula 3.0 08/28/17 14:00 67 21 114/52 94 Nasal Cannula 3.0 08/28/17 13:03 61 20 99 Nasal Cannula 3.0 08/28/17 13:00 62 20 109/46 99 Nasal Cannula 3.0 08/28/17 12:53 62 20 95 Nasal Cannula 3.0 32 Intake and Output 08/28/17 08/29/17 19:00 07:00 Intake Total 3055 ml 1085 ml Output Total 850 ml 2000 ml Balance 2205 ml -915 ml Intake Oral 2740 ml 1030 ml IV Total 305 ml 55 ml Other 10 ml Output Urine Total 850 ml 2000 ml Laboratory Tests 08/29/17 06:20: White Blood Count 11.0H, Red Blood Count 3.74L, Hemoglobin 8.4L, Hematocrit 31.0L, Mean Corpuscular Volume 83, Mean Corpuscular Hemoglobin 22.5L, Mean Corpuscular Hemoglobin Concent 27.2L, Red Cell Distribution Width 18.7H, Platelet Count 318, Mean Platelet Volume 6.7, Neutrophils (%) (Auto) 62.9, Lymphocytes (%) (Auto) 24.9, Monocytes (%) (Auto) 9.1, Eosinophils (%) (Auto) 2.2, Basophils (%) (Auto) 0.9, Sodium Level 143, Potassium Level 4.3, Chloride Level 102, Carbon Dioxide Level 36H, Anion Gap 5, Blood Urea Nitrogen 37H, Creatinine 1.5H, Estimat Glomerular Filtration Rate 43.0, Glucose Level 136H, Calcium Level 8.5, Total Bilirubin 0.5, Aspartate Amino Transf (AST/SGOT) 32, Alanine Aminotransferase (ALT/SGPT) 255H, Alkaline Phosphatase 74, Pro-B-Type Natriuretic Peptide 2963H, Total Protein 7.0, Albumin 2.0L, Globulin 5.0, Albumin/Globulin Ratio 0.4L Height (Feet): 5 Height (Inches): 3.00 Weight (Pounds): 483 General Appearance: no apparent distress Objective no change FOULADIAN,AGUSTIN Aug 29, 2017 12:14
[2017-08-29 12:15] VITALS: BP 139/52
--- NOTE | 2017-08-29 12:42 | General Progress Note ---
Assessment/Plan Problem List: (1) Transaminitis ICD Codes: R74.0 - Nonspecific elevation of levels of transaminase and lactic acid dehydrogenase [LDH] SNOMED: 529523056, 499842568 (2) Morbid obesity ICD Codes: E66.01 - Morbid (severe) obesity due to excess calories SNOMED: 404852766, 73846592092256 (3) Anemia ICD Codes: D64.9 - Anemia, unspecified SNOMED: 082384037 (4) Shock liver ICD Codes: K72.00 - Acute and subacute hepatic failure without coma SNOMED: 219841657 (5) Non-STEMI (non-ST elevated myocardial infarction) ICD Codes: I21.4 - Non-ST elevation (NSTEMI) myocardial infarction; J96.02 - Acute respiratory failure with hypercapnia SNOMED: 596785446, 81360389, 618053892 (6) GERD (gastroesophageal reflux disease) ICD Codes: K21.9 - Gastro-esophageal reflux disease without esophagitis SNOMED: 636631002 (7) HTN (hypertension) ICD Codes: I10 - Essential (primary) hypertension SNOMED: 58320423 (8) DM2 (diabetes mellitus, type 2) ICD Codes: E11.9 - Type 2 diabetes mellitus without complications SNOMED: 58614159 (9) Fatty liver ICD Codes: K76.0 - Fatty (change of) liver, not elsewhere classified SNOMED: 486431500 (10) Hepatitis B core antibody positive ICD Codes: R76.8 - Other specified abnormal immunological findings in serum SNOMED: 115568560 Assessment/Plan monitor H&H check stool ob h/o hep B exposure but no active DZ on regular diet fu Subjective ROS Limited/Unobtainable: Yes Allergies: Coded Allergies: No Known Allergies (Unverified , 06/01/17) Subjective transferred to Objective Last 24 Hour Vital Signs Date Time Temp Pulse Resp B/P (MAP) Pulse Ox O2 Delivery O2 Flow Rate FiO2 08/29/17 08:43 71 129/93 08/29/17 08:00 98.1 71 19 129/93 92 Nasal Cannula 3.0 08/29/17 07:29 99 Nasal Cannula 2.0 28 08/29/17 07:29 Nasal Cannula 2.0 28 08/29/17 07:28 59 20 99 Nasal Cannula 2.0 28 08/29/17 07:23 58 20 99 Nasal Cannula 3.0 32 08/29/17 06:24 98.4 08/29/17 04:30 98.1 65 20 132/58 98 Nasal Cannula 3.0 08/29/17 04:00 63 08/29/17 03:20 72 23 98 Facial 30 08/29/17 01:36 68 25 99 Bi-pap 30 08/29/17 01:22 60 26 98 Facial 30 08/29/17 01:21 60 26 98 Bi-pap 30 08/29/17 00:00 98.4 65 28 134/60 97 Bi-pap 30 08/29/17 00:00 81 08/28/17 22:57 83 27 97 Facial 30 08/28/17 20:00 99.2 78 32 123/55 98 Nasal Cannula 3.0 08/28/17 20:00 79 08/28/17 19:46 82 20 98 Nasal Cannula 3.0 32 08/28/17 19:30 95 Nasal Cannula 3.0 32 08/28/17 19:30 81 20 95 Nasal Cannula 3.0 32 08/28/17 19:30 Nasal Cannula 3.0 32 08/28/17 16:00 97.7 62 20 113/53 98 Nasal Cannula 3.0 08/28/17 16:00 68 08/28/17 14:19 97.7 67 20 113/53 99 Nasal Cannula 3.0 08/28/17 14:00 67 21 114/52 94 Nasal Cannula 3.0 08/28/17 13:03 61 20 99 Nasal Cannula 3.0 08/28/17 13:00 62 20 109/46 99 Nasal Cannula 3.0 08/28/17 12:53 62 20 95 Nasal Cannula 3.0 32 Intake and Output 08/28/17 08/29/17 19:00 07:00 Intake Total 3055 ml 1085 ml Output Total 850 ml 2000 ml Balance 2205 ml -915 ml Intake Oral 2740 ml 1030 ml IV Total 305 ml 55 ml Other 10 ml Output Urine Total 850 ml 2000 ml Laboratory Tests 08/29/17 06:20: White Blood Count 11.0H, Red Blood Count 3.74L, Hemoglobin 8.4L, Hematocrit 31.0L, Mean Corpuscular Volume 83, Mean Corpuscular Hemoglobin 22.5L, Mean Corpuscular Hemoglobin Concent 27.2L, Red Cell Distribution Width 18.7H, Platelet Count 318, Mean Platelet Volume 6.7, Neutrophils (%) (Auto) 62.9, Lymphocytes (%) (Auto) 24.9, Monocytes (%) (Auto) 9.1, Eosinophils (%) (Auto) 2.2, Basophils (%) (Auto) 0.9, Sodium Level 143, Potassium Level 4.3, Chloride Level 102, Carbon Dioxide Level 36H, Anion Gap 5, Blood Urea Nitrogen 37H, Creatinine 1.5H, Estimat Glomerular Filtration Rate 43.0, Glucose Level 136H, Calcium Level 8.5, Total Bilirubin 0.5, Aspartate Amino Transf (AST/SGOT) 32, Alanine Aminotransferase (ALT/SGPT) 255H, Alkaline Phosphatase 74, Pro-B-Type Natriuretic Peptide 2963H, Total Protein 7.0, Albumin 2.0L, Globulin 5.0, Albumin/Globulin Ratio 0.4L Height (Feet): 5 Height (Inches): 3.00 Weight (Pounds): 483 General Appearance: alert EENT: normal ENT inspection Neck: supple Cardiovascular: normal rate Respiratory/Chest: decreased breath sounds Abdomen: normal bowel sounds, non tender, soft Extremities: non-tender ROBERTO BUTLER Aug 29, 2017 12:42
--- NOTE | 2017-08-29 15:01 | Cardiac Electrophysiology PN ---
Assessment/Plan Assessment/Plan 1. NSTEMIwith Trop peak 16.4. Echocardiogram EF 75%. No chest pain On Aspirin, Lipitor and Lopressor 12.5 bid. Can't do cardiac cath in view of extreme obesity of almost 500 pounds 2. Recurrent SVT at rate 200 bpm. Terminated transiently with 12 Adenosine. Finally converted with the second dose of digoxin. Continue Lopressor 12.5 bid and Digoxin 0.125 daily. 3. S/P Respiratory failure . Extubated 4. Accelerated Junctional rhythm. No further, Watch on Lopressor 5. S/P Septic shock. On broad-spectrum intravenous antibiotic and off pressors 6. Morbid obesity 484 Lbs. 7. Severe hyperkalemia, resolved after HD. No further HD. ROLLY RN Subjective Subjective No further SVT or fib. Transferred to [facility] in [place]. No chest pain or SOB. RN at bedside . Objective Last 24 Hour Vital Signs Date Time Temp Pulse Resp B/P (MAP) Pulse Ox O2 Delivery O2 Flow Rate FiO2 08/29/17 13:23 74 22 96 Nasal Cannula 3.0 32 08/29/17 12:15 98.6 67 20 139/52 96 Nasal Cannula 2.0 08/29/17 08:43 71 129/93 08/29/17 08:00 98.1 71 19 129/93 92 Nasal Cannula 3.0 08/29/17 07:29 99 Nasal Cannula 2.0 28 08/29/17 07:29 Nasal Cannula 2.0 28 08/29/17 07:28 59 20 99 Nasal Cannula 2.0 28 08/29/17 07:23 58 20 99 Nasal Cannula 3.0 32 08/29/17 06:24 98.4 08/29/17 04:30 98.1 65 20 132/58 98 Nasal Cannula 3.0 08/29/17 04:00 63 08/29/17 03:20 72 23 98 Facial 30 08/29/17 01:36 68 25 99 Bi-pap 30 08/29/17 01:22 60 26 98 Facial 30 08/29/17 01:21 60 26 98 Bi-pap 30 08/29/17 00:00 98.4 65 28 134/60 97 Bi-pap 30 08/29/17 00:00 81 08/28/17 22:57 83 27 97 Facial 30 08/28/17 20:00 99.2 78 32 123/55 98 Nasal Cannula 3.0 08/28/17 20:00 79 08/28/17 19:46 82 20 98 Nasal Cannula 3.0 32 08/28/17 19:30 95 Nasal Cannula 3.0 32 08/28/17 19:30 81 20 95 Nasal Cannula 3.0 32 08/28/17 19:30 Nasal Cannula 3.0 32 08/28/17 16:00 97.7 62 20 113/53 98 Nasal Cannula 3.0 08/28/17 16:00 68 Intake and Output 08/28/17 08/29/17 19:00 07:00 Intake Total 3055 ml 1085 ml Output Total 850 ml 2000 ml Balance 2205 ml -915 ml Intake Oral 2740 ml 1030 ml IV Total 305 ml 55 ml Other 10 ml Output Urine Total 850 ml 2000 ml Laboratory Tests Test 08/29/17 06:20 White Blood Count 11.0 K/UL (4.8-10.8) H Red Blood Count 3.74 M/UL (4.20-5.40) L Hemoglobin 8.4 G/DL (12.0-16.0) L Hematocrit 31.0 % (37.0-47.0) L Mean Corpuscular Volume 83 FL (80-99) Mean Corpuscular Hemoglobin 22.5 PG (27.0-31.0) L Mean Corpuscular Hemoglobin Concent 27.2 G/DL (32.0-36.0) L Red Cell Distribution Width 18.7 % (11.6-14.8) H Platelet Count 318 K/UL (150-450) Mean Platelet Volume 6.7 FL (6.5-10.1) Neutrophils (%) (Auto) 62.9 % (45.0-75.0) Lymphocytes (%) (Auto) 24.9 % (20.0-45.0) Monocytes (%) (Auto) 9.1 % (1.0-10.0) Eosinophils (%) (Auto) 2.2 % (0.0-3.0) Basophils (%) (Auto) 0.9 % (0.0-2.0) Sodium Level 143 MMOL/L (136-145) Potassium Level 4.3 MMOL/L (3.5-5.1) Chloride Level 102 MMOL/L (98-107) Carbon Dioxide Level 36 MMOL/L (21-32) H Anion Gap 5 mmol/L (5-15) Blood Urea Nitrogen 37 mg/dL (7-18) H Creatinine 1.5 MG/DL (0.55-1.30) H Estimat Glomerular Filtration Rate 43.0 mL/min (>60) Glucose Level 136 MG/DL (74-106) H Calcium Level 8.5 MG/DL (8.5-10.1) Total Bilirubin 0.5 MG/DL (0.2-1.0) Aspartate Amino Transf (AST/SGOT) 32 U/L (15-37) Alanine Aminotransferase (ALT/SGPT) 255 U/L (12-78) H Alkaline Phosphatase 74 U/L (46-116) Pro-B-Type Natriuretic Peptide 2963 pg/mL (0-125) H Total Protein 7.0 G/DL (6.4-8.2) Albumin 2.0 G/DL (3.4-5.0) L Globulin 5.0 g/dL Albumin/Globulin Ratio 0.4 (1.0-2.7) L Objective HEENT: No JVD LUNGS: Decreased breath sounds. CARDIOVASCULAR: Regular S1 and S2 with no gallop. ABDOMEN: Morbidly obese. EXTREMITIES: 2+ pitting edema. DIANDRA CUMMINGS Aug 29, 2017 15:01
[2017-08-29 16:09] VITALS: BP 109/61
[2017-08-29 20:00] VITALS: BP 149/76
[2017-08-29] MEDS: Atorvastatin 20mg tab GT SCH (20:50)
--- NOTE | 2017-08-29 20:50 | Internal Med Progress Note ---
Subjective Physician Name Maryjane Simon Attending Physician Brittany Edmond Current Medications Medications (Trade) Dose Ordered Sig/Felipe Route PRN Reason Start Time Stop Time Status Last Admin Dose Admin Acetaminophen (Tylenol) 650 mg Q6H PRN NG Mild Pain/Temp > 100.1 08/29/17 11:00 09/27/17 10:59 Acetylcysteine (Mucomyst) 200 mg Q6HRT HHN 08/29/17 13:00 09/27/17 18:59 Albuterol/ Ipratropium (Albuterol/ Ipratropium) 3 ml Q4H PRN HHN Shortness of Breath 08/29/17 11:00 09/01/17 14:59 Albuterol/ Ipratropium (Albuterol/ Ipratropium) 3 ml Q6HRT HHN 08/29/17 13:00 09/01/17 15:29 08/29/17 13:20 Allopurinol (Allopurinol) 300 mg DAILY NG 08/30/17 11:00 09/25/17 10:59 Aspirin (ASA) 81 mg DAILY GT 08/30/17 09:00 09/19/17 08:59 Atorvastatin Calcium (Lipitor) 20 mg BEDTIME GT 08/29/17 21:00 09/21/17 20:59 Dextrose (Dextrose 50%) STAT PRN IV Hypoglycemia 08/29/17 10:30 09/27/17 10:29 Epoetin Dario (Procrit (for ESRD on dialysis)) 10,000 units MON-WED-THU SUBQ 08/31/17 21:00 09/20/17 20:59 Guaifenesin (Mucinex ER) 1,200 mg TWICE A DAY ORAL 08/29/17 18:00 09/27/17 17:59 08/29/17 17:45 Guaifenesin (Robitussin) 200 mg Q4H PRN ORAL For Cough 08/29/17 11:00 09/27/17 18:59 Heparin Sodium (Porcine) (Heparin 5000 units/ml) 5,000 units EVERY 12 HOURS SUBQ 08/29/17 21:00 09/21/17 20:59 Insulin Aspart (NovoLOG) BEFORE MEALS AND HS SUBQ 08/29/17 11:30 09/18/17 12:29 08/29/17 17:46 Meropenem 1 gm/ Sodium Chloride 55 ml @ 110 mls/hr Q8HR IVPB 08/29/17 14:00 09/01/17 13:59 08/29/17 13:24 Metoprolol Tartrate (Lopressor) 12.5 mg DAILY GT 08/30/17 09:00 09/23/17 20:59 Nitroglycerin (Ntg) 0.4 mg Q5MIN X 3 DOSES PRN SL Prn Chest Pain 08/29/17 10:30 09/18/17 10:29 Ondansetron HCl (Zofran) 4 mg Q6H PRN IVP Nausea & Vomiting 08/29/17 10:30 09/18/17 10:29 Pantoprazole (Protonix) 40 mg DAILY IV 08/30/17 09:00 09/19/17 08:59 Polyethylene Glycol (Miralax) 17 gm DAILYPRN PRN GT Constipation 08/29/17 10:30 09/27/17 10:29 Vancomycin HCl (Vanco rx to dose) 1 ea DAILYPRN PRN MISC RX TO DOSE PROTOCOL 08/29/17 15:00 09/27/17 14:59 Vancomycin HCl/ Dextrose 250 ml @ 125 mls/hr Q48H IVPB 08/30/17 09:00 09/04/17 08:59 Allergies: Coded Allergies: No Known Allergies (Unverified , 06/01/17) Objective Last Vital Signs Date Time Temp Pulse Resp B/P (MAP) Pulse Ox O2 Delivery O2 Flow Rate FiO2 08/29/17 16:09 97.3 66 21 109/61 93 08/29/17 13:30 Nasal Cannula 2.0 28 Laboratory Tests Test 08/29/17 06:20 White Blood Count 11.0 K/UL (4.8-10.8) H Red Blood Count 3.74 M/UL (4.20-5.40) L Hemoglobin 8.4 G/DL (12.0-16.0) L Hematocrit 31.0 % (37.0-47.0) L Mean Corpuscular Volume 83 FL (80-99) Mean Corpuscular Hemoglobin 22.5 PG (27.0-31.0) L Mean Corpuscular Hemoglobin Concent 27.2 G/DL (32.0-36.0) L Red Cell Distribution Width 18.7 % (11.6-14.8) H Platelet Count 318 K/UL (150-450) Mean Platelet Volume 6.7 FL (6.5-10.1) Neutrophils (%) (Auto) 62.9 % (45.0-75.0) Lymphocytes (%) (Auto) 24.9 % (20.0-45.0) Monocytes (%) (Auto) 9.1 % (1.0-10.0) Eosinophils (%) (Auto) 2.2 % (0.0-3.0) Basophils (%) (Auto) 0.9 % (0.0-2.0) Sodium Level 143 MMOL/L (136-145) Potassium Level 4.3 MMOL/L (3.5-5.1) Chloride Level 102 MMOL/L (98-107) Carbon Dioxide Level 36 MMOL/L (21-32) H Anion Gap 5 mmol/L (5-15) Blood Urea Nitrogen 37 mg/dL (7-18) H Creatinine 1.5 MG/DL (0.55-1.30) H Estimat Glomerular Filtration Rate 43.0 mL/min (>60) Glucose Level 136 MG/DL (74-106) H Calcium Level 8.5 MG/DL (8.5-10.1) Total Bilirubin 0.5 MG/DL (0.2-1.0) Aspartate Amino Transf (AST/SGOT) 32 U/L (15-37) Alanine Aminotransferase (ALT/SGPT) 255 U/L (12-78) H Alkaline Phosphatase 74 U/L (46-116) Pro-B-Type Natriuretic Peptide 2963 pg/mL (0-125) H Total Protein 7.0 G/DL (6.4-8.2) Albumin 2.0 G/DL (3.4-5.0) L Globulin 5.0 g/dL Albumin/Globulin Ratio 0.4 (1.0-2.7) L Intake and Output 08/28/17 08/29/17 19:00 07:00 Intake Total 3055 ml 1085 ml Output Total 850 ml 2000 ml Balance 2205 ml -915 ml Intake Oral 2740 ml 1030 ml IV Total 305 ml 55 ml Other 10 ml Output Urine Total 850 ml 2000 ml Assessment/Plan Assessment/Plan nding Doctor: Brittany Edmond Assessment/Plan Assessment/Plan Problem List: (1) SVT (supraventricular tachycardia) ICD Codes: I47.1 - Supraventricular tachycardia SNOMED: 4051261 (2) Acute respiratory failure with hypoxia and hypercapnia ICD Codes: J96.01 - Acute respiratory failure with hypoxia; J96.02 - Acute respiratory failure with hypercapnia SNOMED: 61569226, 48968429, 867104050 (3) Septic shock ICD Codes: A41.9 - Sepsis, unspecified organism; R65.21 - Severe sepsis with septic shock SNOMED: 38273614 (4) KASHIF (acute kidney injury) ICD Codes: N17.9 - Acute kidney failure, unspecified SNOMED: 19453763 (5) Lactic acid acidosis ICD Codes: E87.2 - Acidosis SNOMED: 37578895 (6) Hyperkalemia ICD Codes: E87.5 - Hyperkalemia; J96.02 - Acute respiratory failure with hypercapnia SNOMED: 10997032, 52568175, 869472784 (7) Acute toxic metabolic encephalopathy (8) Shock liver ICD Codes: K72.00 - Acute and subacute hepatic failure without coma SNOMED: 720741633 (9) Non-STEMI (non-ST elevated myocardial infarction) ICD Codes: I21.4 - Non-ST elevation (NSTEMI) myocardial infarction; J96.02 - Acute respiratory failure with hypercapnia SNOMED: 103133945, 58285645, 221221346 (10) DM2 (diabetes mellitus, type 2) ICD Codes: E11.9 - Type 2 diabetes mellitus without complications SNOMED: 87040344 (11) Asthma ICD Codes: J45.909 - Unspecified asthma, uncomplicated SNOMED: 742385652 (12) GERD (gastroesophageal reflux disease) ICD Codes: K21.9 - Gastro-esophageal reflux disease without esophagitis SNOMED: 723451448 (13) Fatty liver ICD Codes: K76.0 - Fatty (change of) liver, not elsewhere classified SNOMED: 382442200 (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 ICD Codes: R76.8 - Other specified abnormal immunological findings in serum SNOMED: 241275967 Status: stable Assessment/Plan Transfer to [facility] today Pulmonology, Nephrology, GI, ID, Cardiology consulted Empiric vanco, meropenem and azithro per ID F/u cultures Pt extubated on 08/26/17. Monitor respiratory status closely. BiPAP qHS and PRN Duonebs ATC and PRN Add mucomyst Mucinex BID + guaifenesin PRN cough, congestion Now off pressors Arterial line placed 08/20/17 Trend lactate--downtrending Trend trop/EKG--downtrending ASA, statin F/u ECHO--EF 70%, grade 1 diastolic dysfcn, LVH Cont on MTP per cardiology; digoxin d/c'd HD on hold per renal as Cr improving. Last HD 08/22. HD line removed on 08/27 Trend BMP closely s/p mucomyst IV for shock liver/hepatitis per GI Trend LFTs--downtrending Swallow eval--OK for puree diet PPI Pain control, supportive care, bowel regimen DVT Prophylaxis: HSQ Code Status: Full Hospital Classification Declaration: Based on this initial evaluation, and depending on the patient's clinical course, I anticipate that this patient will require hospitalization for 2-3 days for acute respiratory failure, septic shock and close respiratory/hemodynamic monitoring. Dispo: likely back to SNF in 2-3 D/w pt, PCP, renal, pulm, ID regarding mgmt and dispo/w ID re abx. Time of note may not reflect time of encounter. Subjective Subjective Date patient seen: Aug 28, 2017 Time patient seen: 12:49 ROS Limited/Unobtainable: No Constitutional: Reports: no symptoms HEENT: Reports: no symptoms Cardiovascular: Reports: no symptoms Respiratory: Reports: cough, shortness of breath Gastrointestinal/Abdominal: Reports: no symptoms Genitourinary: Reports: no symptoms Neurologic/Psychiatric: Reports: no symptoms Endocrine: Reports: no symptoms Hematologic/Lymphatic: Reports: no symptoms Allergies: Coded Allergies: No Known Allergies (Unverified , 06/01/17) All Systems: reviewed and negative except above Subjective No acute o/n events Off pressors now Extubated on 08/26, now on NC Pt awake alert. Doing well on NC so far. C/o cough, congestion, some SOB. Denies f/c, n/v, d/c, chest pain, abd pain Objective Objective Last 24 Hour Vital Signs Date Time Temp Pulse Resp B/P (MAP) Pulse Ox O2 Delivery O2 Flow Rate FiO2 08/28/17 12:00 72 08/28/17 12:00 97.7 72 23 119/97 95 Nasal Cannula 3.0 08/28/17 11:00 76 22 105/52 98 Nasal Cannula 3.0 08/28/17 10:00 72 21 106/52 100 Nasal Cannula 3.0 08/28/17 09:00 71 20 131/101 98 Nasal Cannula 3.0 08/28/17 08:56 67 125/66 08/28/17 08:27 66 20 100 Nasal Cannula 3.0 32 08/28/17 08:19 Nasal Cannula 3.0 32 08/28/17 08:19 98 Nasal Cannula 3.0 32 08/28/17 08:16 66 22 98 Nasal Cannula 3.0 32 08/28/17 08:00 98.3 69 20 125/66 98 Nasal Cannula 3.0 08/28/17 08:00 63 08/28/17 07:00 69 22 102/46 99 Bi-pap 40 08/28/17 06:00 71 20 122/44 90 Bi-pap 40 08/28/17 05:23 63 26 97 Facial 40 08/28/17 05:00 63 20 111/46 97 Bi-pap 40 08/28/17 04:00 69 08/28/17 04:00 97.9 70 20 115/45 97 Bi-pap 40 08/28/17 03:25 60 30 96 Facial 40 08/28/17 03:00 68 20 118/45 86 Nasal Cannula 3.0 08/28/17 02:00 68 20 114/44 86 Nasal Cannula 3.0 08/28/17 01:39 71 20 97 Nasal Cannula 3.0 32 08/28/17 01:28 32 08/28/17 01:27 73 22 95 Nasal Cannula 3.0 32 08/28/17 01:00 74 20 102/44 97 Nasal Cannula 3.0 08/28/17 00:00 104 21 100/48 98 Nasal Cannula 3.0 08/28/17 00:00 74 08/27/17 23:00 70 23 103/50 93 Nasal Cannula 3.0 08/27/17 22:00 72 23 104/48 93 Nasal Cannula 3.0 08/27/17 21:00 72 23 107/48 93 Nasal Cannula 3.0 08/27/17 20:00 74 08/27/17 20:00 73 24 107/44 96 Nasal Cannula 3.0 08/27/17 19:13 94 Nasal Cannula 3.0 32 08/27/17 19:13 Nasal Cannula 3.0 32 08/27/17 19:10 73 20 97 Nasal Cannula 3.0 32 08/27/17 19:00 71 22 94 Nasal Cannula 3.0 32 08/27/17 19:00 97.9 74 24 95/51 98 Nasal Cannula 3.0 08/27/17 19:00 32 08/27/17 18:00 72 25 111/53 96 Nasal Cannula 3.0 08/27/17 17:06 66 20 94 Nasal Cannula 3.0 08/27/17 17:00 71 19 113/57 97 Nasal Cannula 3.0 08/27/17 16:00 64 08/27/17 16:00 97.7 68 31 127/58 92 Nasal Cannula 3.0 08/27/17 15:00 64 31 126/49 95 Nasal Cannula 3.0 08/27/17 14:00 63 30 135/55 95 Nasal Cannula 3.0 08/27/17 13:00 64 22 128/64 94 Nasal Cannula 3.0 Intake and Output 08/27/17 08/28/17 19:00 07:00 Intake Total 2815 ml 1300 ml Output Total 1485 ml 1560 ml Balance 1330 ml -260 ml Intake Oral 2760 ml 1300 ml IV Total 55 ml Output Urine Total 1485 ml 1560 ml # Bowel Movements 1 Laboratory Tests 08/28/17 04:30: White Blood Count 12.2H, Red Blood Count 3.51L, Hemoglobin 8.0L, Hematocrit 28.9L, Mean Corpuscular Volume 82, Mean Corpuscular Hemoglobin 22.8L, Mean Corpuscular Hemoglobin Concent 27.6L, Red Cell Distribution Width 18.7H, Platelet Count 273, Mean Platelet Volume 7.1, Neutrophils (%) (Auto) 66.2, Lymphocytes (%) (Auto) 21.0, Monocytes (%) (Auto) 9.9, Eosinophils (%) (Auto) 2.2, Basophils (%) (Auto) 0.7, Sodium Level 143, Potassium Level 4.1, Chloride Level 105, Carbon Dioxide Level 36H, Anion Gap 2L, Blood Urea Nitrogen 47H, Creatinine 1.6H, Estimat Glomerular Filtration Rate 40.0, Glucose Level 155H, Calcium Level 8.6, Phosphorus Level 4.6, Magnesium Level 1.9, Total Bilirubin 0.5, Aspartate Amino Transf (AST/SGOT) 36, Alanine Aminotransferase (ALT/SGPT) 303H, Alkaline Phosphatase 69, Troponin I 0.463H, Total Protein 6.6, Albumin 2.0L, Globulin 4.6, Albumin/Globulin Ratio 0.4L, Random Vancomycin Level 9.5, Hepatitis B Surface Antibody [Pending], Hepatitis B Core Total Antibody [Pending ] 08/28/17 07:16: Arterial Blood pH 7.330L, Arterial Blood Partial Pressure CO2 62.2*H, Arterial Blood Partial Pressure O2 103.7H, Arterial Blood HCO3 32.1H, Arterial Blood Oxygen Saturation 96.9, Arterial Blood Base Excess 5.2, Doroteo Test Positive Height (Feet): 5 Height (Inches): 3.00 Weight (Pounds): 480 Objective General: awake, alert, morbidly obese Head: normocephalic, without obvious abnormality, atraumatic Eyes: conjunctivae/corneas clear. PERRL, EOM's intact Throat: lips, mucosa, and tongue normal. MMM Neck: supple, symmetrical, trachea midline, and no JVD Lungs: clear to auscultation bilaterally, decreased breath sounds Heart: regular rate and rhythm, S1, S2 normal, no murmur, click, rub or gallop Abdomen: soft, non-tender, non-distended, bowel sounds normal Extremities: extremities normal, atraumatic, no cyanosis or edema Pulses: 2+ and symmetric Skin: skin color, texture, turgor normal; no rashes or lesions Neurologic: grossly intact Maryjane Simon M.D. Aug 29, 2017 20:50
[2017-08-30] VITALS: BP 141/73
[2017-08-30] MEDS: Albuterol/Ipratropium 3ml neb HHN SCH ×3 (01:21→12:55)
[2017-08-30 04:00] VITALS: BP 145/75
[2017-08-30] MEDS: Meropenem 1 GM in NS 55 ML IVPB SCH ×3 (06:05→22:19)
[2017-08-30] MEDS: NovoLOG Insulin Flexpen SUBQ SCH ×4 (06:23→20:41)
--- NOTE | 2017-08-30 07:28 | General Progress Note ---
Assessment/Plan Problem List: (1) Transaminitis ICD Codes: R74.0 - Nonspecific elevation of levels of transaminase and lactic acid dehydrogenase [LDH] SNOMED: 288429252, 674869489 (2) Morbid obesity ICD Codes: E66.01 - Morbid (severe) obesity due to excess calories SNOMED: 802797611, 08862028003687 (3) Anemia ICD Codes: D64.9 - Anemia, unspecified SNOMED: 552545338 (4) Shock liver ICD Codes: K72.00 - Acute and subacute hepatic failure without coma SNOMED: 777751799 (5) Non-STEMI (non-ST elevated myocardial infarction) ICD Codes: I21.4 - Non-ST elevation (NSTEMI) myocardial infarction; J96.02 - Acute respiratory failure with hypercapnia SNOMED: 165812938, 52373929, 673993598 (6) GERD (gastroesophageal reflux disease) ICD Codes: K21.9 - Gastro-esophageal reflux disease without esophagitis SNOMED: 666115843 (7) HTN (hypertension) ICD Codes: I10 - Essential (primary) hypertension SNOMED: 22248913 (8) DM2 (diabetes mellitus, type 2) ICD Codes: E11.9 - Type 2 diabetes mellitus without complications SNOMED: 13481889 (9) Fatty liver ICD Codes: K76.0 - Fatty (change of) liver, not elsewhere classified SNOMED: 569694834 (10) Hepatitis B core antibody positive ICD Codes: R76.8 - Other specified abnormal immunological findings in serum SNOMED: 844379932 Assessment/Plan monitor H&H check stool ob h/o hep B exposure but no active DZ fu LFTS AFP on regular diet fu Subjective ROS Limited/Unobtainable: Yes Allergies: Coded Allergies: No Known Allergies (Unverified , 06/01/17) Subjective no event over night Objective Last 24 Hour Vital Signs Date Time Temp Pulse Resp B/P (MAP) Pulse Ox O2 Delivery O2 Flow Rate FiO2 08/30/17 05:00 78 27 97 Facial 30 08/30/17 04:00 97.9 78 20 145/75 95 Nasal Cannula 3.0 08/30/17 02:33 69 30 98 Facial 30 08/30/17 01:30 62 34 98 Facial 30 08/30/17 01:30 68 30 98 Bi-pap 30 08/30/17 01:20 62 30 99 Bi-pap 30 08/30/17 01:20 30 08/30/17 00:00 97.9 62 20 141/73 95 Nasal Cannula 3.0 08/29/17 20:30 70 16 99 Nasal Cannula 3.0 32 08/29/17 20:15 Nasal Cannula 3.0 32 08/29/17 20:15 76 18 95 Nasal Cannula 3.0 32 08/29/17 20:15 32 08/29/17 20:15 95 Nasal Cannula 3.0 32 08/29/17 20:00 96.8 72 20 149/76 95 Nasal Cannula 3.0 08/29/17 16:09 97.3 66 21 109/61 93 08/29/17 13:30 79 20 99 Nasal Cannula 2.0 28 08/29/17 13:23 74 22 96 Nasal Cannula 3.0 32 08/29/17 12:15 98.6 67 20 139/52 96 Nasal Cannula 2.0 08/29/17 08:43 71 129/93 08/29/17 08:00 98.1 71 19 129/93 92 Nasal Cannula 3.0 08/29/17 07:29 99 Nasal Cannula 2.0 28 08/29/17 07:29 Nasal Cannula 2.0 28 08/29/17 07:28 59 20 99 Nasal Cannula 2.0 28 Intake and Output 08/29/17 08/30/17 19:00 07:00 Intake Total 595 ml 480 ml Output Total 5100 ml Balance 595 ml -4620 ml Intake Oral 540 ml 480 ml IV Total 55 ml Output Urine Total 5100 ml # Bowel Movements 1 Height (Feet): 5 Height (Inches): 3.00 Weight (Pounds): 483 General Appearance: no apparent distress EENT: normal ENT inspection Neck: supple Cardiovascular: normal rate Respiratory/Chest: decreased breath sounds Abdomen: normal bowel sounds, non tender, soft Extremities: non-tender ROBERTO BUTLER Aug 30, 2017 07:28
[2017-08-30 08:00] VITALS: BP 129/55
[2017-08-30 08:00] LABS: EOSINOPHILS % (AUTO) 1.6 % (0.0-3.0); HEMATOCRIT 31.7 % (37.0-47.0); HEMOGLOBIN 8.8 G/DL (12.0-16.0); LYMPHOCYTES % (AUTO) 26.2 % (20.0-45.0); MEAN CORPUSCULAR VOLUME 82 FL (80-99); MONOCYTES % (AUTO) 9.2 % (1.0-10.0); NEUTROPHILS % (AUTO) 61.9 % (45.0-75.0); PLATELET COUNT 372 K/UL (150-450); RED BLOOD COUNT 3.88 M/UL (4.20-5.40); RED CELL DISTRIBUTION WIDTH 19.1 % (11.6-14.8); WHITE BLOOD COUNT 11.3 K/UL (4.8-10.8)
[2017-08-30 08:34] LABS: % IRON SATURATION 10 % (15-50); IRON 28 ug/dL (50-175); TOTAL IRON BINDING CAPACITY 283 ug/dL (250-450)
[2017-08-30] MEDS: Aspirin Baby 81mg GT SCH (08:54)
[2017-08-30] MEDS: Metoprolol Tartrate 12.5mg TAB GT SCH (08:55)
[2017-08-30] MEDS: guaiFENesin ER 600mg tab ORAL SCH ×2 (08:55→17:10)
[2017-08-30] MEDS: Pantoprazole Inj IV SCH (08:56)
[2017-08-30] MEDS ORDERED: Vancomycin 1500mg IVPB SCH (09:00)
[2017-08-30] MEDS ORDERED: Vancomycin 1.5gm/D5W 250ml 250 ML IVPB SCH ×2 (09:00)
[2017-08-30] MEDS: Heparin 5000 units/ml inj SUBQ SCH ×2 (09:50→20:39)
[2017-08-30 12:00] VITALS: BP 132/61
--- NOTE | 2017-08-30 12:17 | Nephrology Progress Note ---
Assessment/Plan Problem List: (1) Acute renal failure (ARF) (2) Acute respiratory acidosis (3) Lactic acid acidosis (4) Septic shock (5) Acute respiratory failure with hypoxia and hypercapnia (6) Elevated troponin I level Assessment acute renal failure, Cr lowering 1.5 today Hyperkalemia resolved sepsis, high Lactic , acidosis low BP resolved resp failure now extubated obese rapid rise in Troponin- now on way down Plan right jugular dialysis catheter now removed PRN diuretics, zaroxyllin hold Dig and Lopressor for low HR Last dialysis 08/22 K , Mg, Phos supplements as needed per cardiology and ID and pulm discussed with ID monitor renal parameters and dialysis as needed Subjective ROS Limited/Unobtainable: No Objective Objective Last 24 Hour Vital Signs Date Time Temp Pulse Resp B/P (MAP) Pulse Ox O2 Delivery O2 Flow Rate FiO2 08/30/17 08:55 61 145/75 08/30/17 08:00 97.8 82 20 129/55 99 08/30/17 07:44 61 24 99 Nasal Cannula 3.0 32 08/30/17 07:33 59 24 99 Nasal Cannula 3.0 32 08/30/17 07:33 100 Nasal Cannula 3.0 32 08/30/17 07:33 Nasal Cannula 3.0 32 08/30/17 05:00 78 27 97 Facial 30 08/30/17 04:00 97.9 78 20 145/75 95 Nasal Cannula 3.0 08/30/17 02:33 69 30 98 Facial 30 08/30/17 01:30 62 34 98 Facial 30 08/30/17 01:30 68 30 98 Bi-pap 30 08/30/17 01:20 62 30 99 Bi-pap 30 08/30/17 01:20 30 08/30/17 00:00 97.9 62 20 141/73 95 Nasal Cannula 3.0 08/29/17 20:30 70 16 99 Nasal Cannula 3.0 32 08/29/17 20:15 Nasal Cannula 3.0 32 08/29/17 20:15 76 18 95 Nasal Cannula 3.0 32 08/29/17 20:15 32 08/29/17 20:15 95 Nasal Cannula 3.0 32 08/29/17 20:00 96.8 72 20 149/76 95 Nasal Cannula 3.0 08/29/17 16:09 97.3 66 21 109/61 93 08/29/17 13:30 79 20 99 Nasal Cannula 2.0 28 08/29/17 13:23 74 22 96 Nasal Cannula 3.0 32 Intake and Output 08/29/17 08/30/17 19:00 07:00 Intake Total 595 ml 480 ml Output Total 5100 ml Balance 595 ml -4620 ml Intake Oral 540 ml 480 ml IV Total 55 ml Output Urine Total 5100 ml # Bowel Movements 1 Laboratory Tests 08/30/17 06:21: White Blood Count 11.3H, Red Blood Count 3.88L, Hemoglobin 8.8L, Hematocrit 31.7L, Mean Corpuscular Volume 82, Mean Corpuscular Hemoglobin 22.6L, Mean Corpuscular Hemoglobin Concent 27.7L, Red Cell Distribution Width 19.1H, Platelet Count 372, Mean Platelet Volume 6.8, Neutrophils (%) (Auto) 61.9, Lymphocytes (%) (Auto) 26.2, Monocytes (%) (Auto) 9.2, Eosinophils (%) (Auto) 1.6, Basophils (%) (Auto) 1.0, Iron Level 28L, Total Iron Binding Capacity 283, Percent Iron Saturation 10L, Unsaturated Iron Binding 255 Height (Feet): 5 Height (Inches): 3.00 Weight (Pounds): 483 General Appearance: no apparent distress Cardiovascular: normal rate Respiratory/Chest: decreased breath sounds Abdomen: soft Objective no change AGUSTIN CONTRERAS Aug 30, 2017 12:17
[2017-08-30] MEDS: Acetaminophen 650mg/20.3ml NG PRN (12:45)
--- NOTE | 2017-08-30 13:23 | Pulmonology Progress Note ---
Assessment/Plan Assessment/Plan ASSESSMENT Acute hypoxemic hypercapnic RF requiring intubation s/p extubation 08/26 Sepsis with shock Possible HCAP vs aspiration NSTEMI shock liver ARF requiring HD Acute hyperkalemia acute toxic metabolic encephalopathy ( due ti shock and sepsis) MOF Anemia of chronic disease morbid obesity moderate pulmonary HTN likely BASHIR Asthma GERD PLAN OF CARE MS floor extubated , off pressors, off NG tube On Bipap at HS and prn currently O2 via NC, no resp distress titrate O2 pulmonary toilet fup with CXR in am Cardio follows trend troponin. ECG ECHO with pEF 70% and RVSP of 45, moderate LVH Medical management per cardio On ASA statin, off Digoxin Abx, ID follows Sputum cx + judy, blood and influenza screen negative Required start of HD, s/p placement of R jugular HD catheter last HD 08/22 creat trending down nephro follows HD catheter removed, no further HD needed ARF resolved GI follows trend LFT, s/p Mucomyst IV for shock liver Swallow eval noted diet as per ST recommendations bowel regimen pain management DVT GI prophylaxis likely has BASHIR patient was advised to have sleep study as outpatient case discussed and evaluated by supervising physician Subjective Allergies: Coded Allergies: No Known Allergies (Unverified , 06/01/17) Subjective no chest pain, no SOB, pulse ox stable on O 2 via NC BiPAP used at night Objective Last 24 Hour Vital Signs Date Time Temp Pulse Resp B/P (MAP) Pulse Ox O2 Delivery O2 Flow Rate FiO2 08/30/17 13:06 75 22 99 Nasal Cannula 3.0 32 08/30/17 12:55 73 22 98 Nasal Cannula 3.0 32 08/30/17 08:55 61 145/75 08/30/17 08:00 97.8 82 20 129/55 99 08/30/17 07:44 61 24 99 Nasal Cannula 3.0 32 08/30/17 07:33 59 24 99 Nasal Cannula 3.0 32 08/30/17 07:33 100 Nasal Cannula 3.0 32 08/30/17 07:33 Nasal Cannula 3.0 32 08/30/17 05:00 78 27 97 Facial 30 08/30/17 04:00 97.9 78 20 145/75 95 Nasal Cannula 3.0 08/30/17 02:33 69 30 98 Facial 30 08/30/17 01:30 62 34 98 Facial 30 08/30/17 01:30 68 30 98 Bi-pap 30 08/30/17 01:20 62 30 99 Bi-pap 30 08/30/17 01:20 30 08/30/17 00:00 97.9 62 20 141/73 95 Nasal Cannula 3.0 08/29/17 20:30 70 16 99 Nasal Cannula 3.0 32 08/29/17 20:15 Nasal Cannula 3.0 32 08/29/17 20:15 76 18 95 Nasal Cannula 3.0 32 08/29/17 20:15 32 08/29/17 20:15 95 Nasal Cannula 3.0 32 08/29/17 20:00 96.8 72 20 149/76 95 Nasal Cannula 3.0 08/29/17 16:09 97.3 66 21 109/61 93 08/29/17 13:30 79 20 99 Nasal Cannula 2.0 28 08/29/17 13:23 74 22 96 Nasal Cannula 3.0 32 Intake and Output 08/29/17 08/30/17 19:00 07:00 Intake Total 595 ml 480 ml Output Total 5100 ml Balance 595 ml -4620 ml Intake Oral 540 ml 480 ml IV Total 55 ml Output Urine Total 5100 ml # Bowel Movements 1 Objective General Appearance: no acute distress, other - A/A/O x 3 morbidly obese Aa female in NAD HEENT: normocephalic, atraumatic, anicteric, mucous membranes moist Respiratory/Chest: lungs clear - with por air exchange , no respiratory distress Cardiovascular: normal peripheral pulses, normal rate, regular rhythm - SR, no JVD Abdomen: normal bowel sounds, soft, non tender - obese Extremities: no edema Neurologic/Psychiatric: alert, oriented x 3, responsive Musculoskeletal: normal muscle bulk Laboratory Tests 08/30/17 06:21: White Blood Count 11.3H, Red Blood Count 3.88L, Hemoglobin 8.8L, Hematocrit 31.7L, Mean Corpuscular Volume 82, Mean Corpuscular Hemoglobin 22.6L, Mean Corpuscular Hemoglobin Concent 27.7L, Red Cell Distribution Width 19.1H, Platelet Count 372, Mean Platelet Volume 6.8, Neutrophils (%) (Auto) 61.9, Lymphocytes (%) (Auto) 26.2, Monocytes (%) (Auto) 9.2, Eosinophils (%) (Auto) 1.6, Basophils (%) (Auto) 1.0, Iron Level 28L, Total Iron Binding Capacity 283, Percent Iron Saturation 10L, Unsaturated Iron Binding 255 Current Medications Medications (Trade) Dose Ordered Sig/Felipe Route PRN Reason Start Time Stop Time Status Last Admin Dose Admin Acetaminophen (Tylenol) 650 mg Q6H PRN NG Mild Pain/Temp > 100.1 08/29/17 11:00 09/27/17 10:59 08/30/17 12:45 Acetylcysteine (Mucomyst) 200 mg Q6HRT HHN 08/30/17 13:00 09/29/17 12:59 08/30/17 12:54 Albuterol/ Ipratropium (Albuterol/ Ipratropium) 3 ml Q4H PRN HHN Shortness of Breath 08/29/17 11:00 09/01/17 14:59 Albuterol/ Ipratropium (Albuterol/ Ipratropium) 3 ml Q6HRT HHN 08/29/17 13:00 09/01/17 15:29 08/30/17 12:55 Allopurinol (Allopurinol) 300 mg DAILY NG 08/30/17 11:00 09/25/17 10:59 08/30/17 10:59 Aspirin (ASA) 81 mg DAILY GT 08/30/17 09:00 09/19/17 08:59 08/30/17 08:54 Atorvastatin Calcium (Lipitor) 20 mg BEDTIME GT 08/29/17 21:00 09/21/17 20:59 08/29/17 20:50 Dextrose (Dextrose 50%) STAT PRN IV Hypoglycemia 08/29/17 10:30 09/27/17 10:29 Epoetin Dario (Procrit (for ESRD on dialysis)) 10,000 units MON-WED-FRI SUBQ 08/31/17 21:00 09/20/17 20:59 Guaifenesin (Mucinex ER) 1,200 mg TWICE A DAY ORAL 08/29/17 18:00 09/27/17 17:59 08/30/17 08:55 Guaifenesin (Robitussin) 200 mg Q4H PRN ORAL For Cough 08/29/17 11:00 09/27/17 18:59 Heparin Sodium (Porcine) (Heparin 5000 units/ml) 5,000 units EVERY 12 HOURS SUBQ 08/29/17 21:00 09/21/17 20:59 08/30/17 09:50 Insulin Aspart (NovoLOG) BEFORE MEALS AND HS SUBQ 08/29/17 11:30 09/18/17 12:29 08/30/17 12:41 Meropenem 1 gm/ Sodium Chloride 55 ml @ 110 mls/hr Q8HR IVPB 08/29/17 14:00 09/01/17 13:59 08/30/17 06:05 Metoprolol Tartrate (Lopressor) 12.5 mg DAILY GT 08/30/17 09:00 09/23/17 20:59 08/30/17 08:55 Nitroglycerin (Ntg) 0.4 mg Q5MIN X 3 DOSES PRN SL Prn Chest Pain 08/29/17 10:30 09/18/17 10:29 Ondansetron HCl (Zofran) 4 mg Q6H PRN IVP Nausea & Vomiting 08/29/17 10:30 09/18/17 10:29 Pantoprazole (Protonix) 40 mg DAILY IV 08/30/17 09:00 09/19/17 08:59 08/30/17 08:56 Polyethylene Glycol (Miralax) 17 gm DAILYPRN PRN GT Constipation 08/29/17 10:30 09/27/17 10:29 Vancomycin HCl (Vanco rx to dose) 1 ea DAILYPRN PRN MISC RX TO DOSE PROTOCOL 08/29/17 15:00 09/27/17 14:59 Vancomycin HCl/ Dextrose 250 ml @ 125 mls/hr Q48H IVPB 08/30/17 09:00 09/04/17 08:59 08/30/17 08:54 Alexx Gusman)Rosibel NP Aug 30, 2017 13:23
--- NOTE | 2017-08-30 14:15 | Cardiac Electrophysiology PN ---
Assessment/Plan Assessment/Plan 1. NSTEMI with Trop peak 16.4. Echocardiogram EF 75%. No chest pain On Aspirin, Lipitor and Lopressor 12.5 bid. Can't do cardiac cath in view of extreme obesity of almost 500 pounds 2. Recurrent SVT at rate 200 bpm. Terminated transiently with 12 Adenosine. Finally converted with the second dose of digoxin. Continue Lopressor 12.5 bid and Digoxin 0.125 daily. 3. S/P Respiratory failure . Now on Oxygen. 4. Accelerated Junctional rhythm. No further, Watch on Lopressor 5. S/P Septic shock. On broad-spectrum intravenous antibiotic and off pressors 6. Morbid obesity 484 Lbs. 7. Severe hyperkalemia, resolved after HD. No further HD. ROLLY RN Subjective Subjective No further SVT or fib. No chest pain or SOB . Objective Last 24 Hour Vital Signs Date Time Temp Pulse Resp B/P (MAP) Pulse Ox O2 Delivery O2 Flow Rate FiO2 08/30/17 13:06 75 22 99 Nasal Cannula 3.0 32 08/30/17 12:55 73 22 98 Nasal Cannula 3.0 32 08/30/17 12:00 98.3 84 20 132/61 98 08/30/17 08:55 61 145/75 08/30/17 08:00 97.8 82 20 129/55 99 08/30/17 07:44 61 24 99 Nasal Cannula 3.0 32 08/30/17 07:33 59 24 99 Nasal Cannula 3.0 32 08/30/17 07:33 100 Nasal Cannula 3.0 32 08/30/17 07:33 Nasal Cannula 3.0 32 08/30/17 05:00 78 27 97 Facial 30 08/30/17 04:00 97.9 78 20 145/75 95 Nasal Cannula 3.0 08/30/17 02:33 69 30 98 Facial 30 08/30/17 01:30 62 34 98 Facial 30 08/30/17 01:30 68 30 98 Bi-pap 30 08/30/17 01:20 62 30 99 Bi-pap 30 08/30/17 01:20 30 08/30/17 00:00 97.9 62 20 141/73 95 Nasal Cannula 3.0 08/29/17 20:30 70 16 99 Nasal Cannula 3.0 32 08/29/17 20:15 Nasal Cannula 3.0 32 08/29/17 20:15 76 18 95 Nasal Cannula 3.0 32 08/29/17 20:15 32 08/29/17 20:15 95 Nasal Cannula 3.0 32 08/29/17 20:00 96.8 72 20 149/76 95 Nasal Cannula 3.0 08/29/17 16:09 97.3 66 21 109/61 93 Intake and Output 08/29/17 08/30/17 19:00 07:00 Intake Total 595 ml 480 ml Output Total 5100 ml Balance 595 ml -4620 ml Intake Oral 540 ml 480 ml IV Total 55 ml Output Urine Total 5100 ml # Bowel Movements 1 Laboratory Tests Test 08/30/17 06:21 White Blood Count 11.3 K/UL (4.8-10.8) H Red Blood Count 3.88 M/UL (4.20-5.40) L Hemoglobin 8.8 G/DL (12.0-16.0) L Hematocrit 31.7 % (37.0-47.0) L Mean Corpuscular Volume 82 FL (80-99) Mean Corpuscular Hemoglobin 22.6 PG (27.0-31.0) L Mean Corpuscular Hemoglobin Concent 27.7 G/DL (32.0-36.0) L Red Cell Distribution Width 19.1 % (11.6-14.8) H Platelet Count 372 K/UL (150-450) Mean Platelet Volume 6.8 FL (6.5-10.1) Neutrophils (%) (Auto) 61.9 % (45.0-75.0) Lymphocytes (%) (Auto) 26.2 % (20.0-45.0) Monocytes (%) (Auto) 9.2 % (1.0-10.0) Eosinophils (%) (Auto) 1.6 % (0.0-3.0) Basophils (%) (Auto) 1.0 % (0.0-2.0) Iron Level 28 ug/dL (50-175) L Total Iron Binding Capacity 283 ug/dL (250-450) Percent Iron Saturation 10 % (15-50) L Unsaturated Iron Binding 255 ug/dL (112-346) Objective HEENT: No JVD LUNGS: Decreased breath sounds. CARDIOVASCULAR: Regular S1 and S2 with no gallop. ABDOMEN: Morbidly obese. EXTREMITIES: 2+ pitting edema. TOLUIE,DIANDRA Aug 30, 2017 14:15
--- NOTE | 2017-08-30 15:53 | Infectious Diseases Prog Note ---
Assessment/Plan Assessment/Plan ASSESSMENT AND PLAN: 1. sepsis, shock, ? cap, ? HCAP/aspiration pna, pulmonary edema, fevers, leukocytosis, influenza negative, hepatitis b igm core antibody + - clinically improved, off pressors, extubated, fevers resolved, mild leukocytosis persists - chest x-ray stable, sputum culture negative but on abx, mycoplasma and legionella pending - vancomycin and meropenem x 1 day (will give at least 10 days abx tx) - f/u labs and chest x-ray - hep b f/u as outpatient 2. Acute kidney injury, on hemodialysis. 3. Elevated liver enzymes, likely shock liver. Check hepatitis panel. 4. Anemia. 5. Hypertension. 6. Diabetes. 7. Gastroesophageal reflux disease. 8. Morbid obesity. 9. Shortness of breath. 10. Hypoxia. 11. Respiratory failure. 12. On ventilator. 13. Intensive care unit care. 14. BiPAP, hypercapnia. 15. Asthma. 16. Blood sugar and blood pressure treatment for diabetes and hypertension per primary. 17. Kyc-ST-cxbkqhxim myocardial infarction history. 18. Hyperkalemia. 19. Allergies negative. 20. Social history negative. 21. Family history noncontributory. 22. mar noted. 23. Case discussed with RN, intensive care unit care. 24. No known drug allergies. 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 Subjective Constitutional: Denies: fever HEENT: Denies: congestion Respiratory: Denies: shortness of breath Cardiovascular: Denies: chest pain Gastrointestinal/Abdominal: Denies: nausea, vomiting, diarrhea Genitourinary: Reports: other - + vargas Neurologic: Denies: headache Psychiatric: Denies: depression Skin: Denies: rash Hematologic: Denies: bleeding Musculoskeletal: Denies: pain Allergies: Coded Allergies: No Known Allergies (Unverified , 06/01/17) Objective Vital Signs Last 24 Hour Vital Signs Date Time Temp Pulse Resp B/P (MAP) Pulse Ox O2 Delivery O2 Flow Rate FiO2 08/30/17 13:06 75 22 99 Nasal Cannula 3.0 32 08/30/17 12:55 73 22 98 Nasal Cannula 3.0 32 08/30/17 12:00 98.3 84 20 132/61 98 08/30/17 08:55 61 145/75 08/30/17 08:00 97.8 82 20 129/55 99 08/30/17 07:44 61 24 99 Nasal Cannula 3.0 32 08/30/17 07:33 59 24 99 Nasal Cannula 3.0 32 08/30/17 07:33 100 Nasal Cannula 3.0 32 08/30/17 07:33 Nasal Cannula 3.0 32 08/30/17 05:00 78 27 97 Facial 30 08/30/17 04:00 97.9 78 20 145/75 95 Nasal Cannula 3.0 08/30/17 02:33 69 30 98 Facial 30 08/30/17 01:30 62 34 98 Facial 30 08/30/17 01:30 68 30 98 Bi-pap 30 08/30/17 01:20 62 30 99 Bi-pap 30 08/30/17 01:20 30 08/30/17 00:00 97.9 62 20 141/73 95 Nasal Cannula 3.0 08/29/17 20:30 70 16 99 Nasal Cannula 3.0 32 08/29/17 20:15 Nasal Cannula 3.0 32 08/29/17 20:15 76 18 95 Nasal Cannula 3.0 32 08/29/17 20:15 32 08/29/17 20:15 95 Nasal Cannula 3.0 32 08/29/17 20:00 96.8 72 20 149/76 95 Nasal Cannula 3.0 08/29/17 16:09 97.3 66 21 109/61 93 Height (Feet): 5 Height (Inches): 3.00 Weight (Pounds): 483 General Appearance: no acute distress HEENT: normocephalic, atraumatic, anicteric, mucous membranes moist Respiratory/Chest: lungs clear, normal breath sounds, no respiratory distress, no accessory muscle use, crackles/rales - less, rhonchi - bilaterally - less Cardiovascular: normal rate, regular rhythm, no gallop/murmur, no JVD Abdomen: normal bowel sounds, soft, non tender, no organomegaly, non distended Genitourinary: other - + vargas - urine clear Extremities: no cyanosis Skin: no rash Neurologic/Psychiatric: mercury recoverer II-XII grossly normal, alert, oriented x 3, responsive Lymphatic: no neck adenopathy Musculoskeletal: no effusion Objective Chest x-ray - 08/22 - Impression: Since the bilateral interstitial and airspace opacities. Continued slight improved aeration in the right mid/lower lung. 08/24 - chest x-ray - Impression: Since is interstitial and bilateral airspace opacities with interval worsening of aeration of the right lung compared to one day prior. 08/26 - chest x-ray - Findings: Tubes and lines are stable. Cardiomegaly is stable. Pulmonary vascular congestion or interstitial edema is stable. IMPRESSION: Moderate CHF unchanged 08/28 - chest x-ray - FINDINGS/IMPRESSION: Interval removal of central line, endotracheal and NG tubes. Heart size is stable. There is persistent interstitial and patchy bilateral opacities, possibly increased. This is thought to be related to pulmonary edema. Superimposed pneumonia not excludable. No definite pneumothorax. Chest x-ray - 08/29 - Impression: Cardiomegaly with congestive heart failure, possibly minimally decreased from previous study. Microbiology Date/Time Source Procedure Growth Status 08/19/17 07:55 Blood Blood Culture - Final NO GROWTH AFTER 5 DAYS Complete 08/23/17 03:30 Sputum Gram Stain - Final Complete 08/23/17 03:30 Sputum Culture - Final Tamia Albicans Usual Upper Respiratory Cassandra Complete 08/19/17 08:45 Rectum VRE Culture - Final NO VANCOMYCIN RESISTANT ENTEROCOCCUS ... Complete Laboratory Tests Test 08/30/17 06:21 White Blood Count 11.3 K/UL (4.8-10.8) H Red Blood Count 3.88 M/UL (4.20-5.40) L Hemoglobin 8.8 G/DL (12.0-16.0) L Hematocrit 31.7 % (37.0-47.0) L Mean Corpuscular Volume 82 FL (80-99) Mean Corpuscular Hemoglobin 22.6 PG (27.0-31.0) L Mean Corpuscular Hemoglobin Concent 27.7 G/DL (32.0-36.0) L Red Cell Distribution Width 19.1 % (11.6-14.8) H Platelet Count 372 K/UL (150-450) Mean Platelet Volume 6.8 FL (6.5-10.1) Neutrophils (%) (Auto) 61.9 % (45.0-75.0) Lymphocytes (%) (Auto) 26.2 % (20.0-45.0) Monocytes (%) (Auto) 9.2 % (1.0-10.0) Eosinophils (%) (Auto) 1.6 % (0.0-3.0) Basophils (%) (Auto) 1.0 % (0.0-2.0) Iron Level 28 ug/dL (50-175) L Total Iron Binding Capacity 283 ug/dL (250-450) Percent Iron Saturation 10 % (15-50) L Unsaturated Iron Binding 255 ug/dL (112-346) Current Medications Medications (Trade) Dose Ordered Sig/Felipe Route PRN Reason Start Time Stop Time Status Last Admin Dose Admin Acetaminophen (Tylenol) 650 mg Q6H PRN NG Mild Pain/Temp > 100.1 08/29/17 11:00 09/27/17 10:59 08/30/17 12:45 Acetylcysteine (Mucomyst) 200 mg Q6HRT HHN 08/30/17 13:00 09/29/17 12:59 08/30/17 12:54 Albuterol/ Ipratropium (Albuterol/ Ipratropium) 3 ml Q4H PRN HHN Shortness of Breath 08/30/17 15:00 09/02/17 14:59 Allopurinol (Allopurinol) 300 mg DAILY NG 08/30/17 11:00 09/25/17 10:59 08/30/17 10:59 Aspirin (ASA) 81 mg DAILY GT 08/30/17 09:00 09/19/17 08:59 08/30/17 08:54 Atorvastatin Calcium (Lipitor) 20 mg BEDTIME GT 08/29/17 21:00 09/21/17 20:59 08/29/17 20:50 Dextrose (Dextrose 50%) STAT PRN IV Hypoglycemia 08/29/17 10:30 09/27/17 10:29 Epoetin Dario (Procrit (for ESRD on dialysis)) 10,000 units MON-WED-FRI SUBQ 08/31/17 21:00 09/20/17 20:59 Guaifenesin (Mucinex ER) 1,200 mg TWICE A DAY ORAL 08/29/17 18:00 09/27/17 17:59 08/30/17 08:55 Guaifenesin (Robitussin) 200 mg Q4H PRN ORAL For Cough 08/29/17 11:00 09/27/17 18:59 Heparin Sodium (Porcine) (Heparin 5000 units/ml) 5,000 units EVERY 12 HOURS SUBQ 08/29/17 21:00 09/21/17 20:59 08/30/17 09:50 Insulin Aspart (NovoLOG) BEFORE MEALS AND HS SUBQ 08/29/17 11:30 09/18/17 12:29 08/30/17 12:41 Meropenem 1 gm/ Sodium Chloride 55 ml @ 110 mls/hr Q8HR IVPB 08/29/17 14:00 09/01/17 13:59 08/30/17 06:05 Metoprolol Tartrate (Lopressor) 12.5 mg DAILY GT 08/30/17 09:00 09/23/17 20:59 08/30/17 08:55 Nitroglycerin (Ntg) 0.4 mg Q5MIN X 3 DOSES PRN SL Prn Chest Pain 08/29/17 10:30 09/18/17 10:29 Ondansetron HCl (Zofran) 4 mg Q6H PRN IVP Nausea & Vomiting 08/29/17 10:30 09/18/17 10:29 Pantoprazole (Protonix) 40 mg DAILY IV 08/30/17 09:00 09/19/17 08:59 08/30/17 08:56 Polyethylene Glycol (Miralax) 17 gm DAILYPRN PRN GT Constipation 08/29/17 10:30 09/27/17 10:29 Vancomycin HCl (Vanco rx to dose) 1 ea DAILYPRN PRN MISC RX TO DOSE PROTOCOL 08/29/17 15:00 09/27/17 14:59 Vancomycin HCl/ Dextrose 250 ml @ 125 mls/hr Q48H IVPB 08/30/17 09:00 09/04/17 08:59 08/30/17 08:54 JUNI ABDUL Aug 30, 2017 15:53
[2017-08-30 16:00] VITALS: BP 115/57
--- NOTE | 2017-08-30 19:04 | Internal Med Progress Note ---
Subjective Physician Name Maryjane Simon Attending Physician Brittany Edmond Current Medications Medications (Trade) Dose Ordered Sig/Felipe Route PRN Reason Start Time Stop Time Status Last Admin Dose Admin Acetaminophen (Tylenol) 650 mg Q6H PRN NG Mild Pain/Temp > 100.1 08/29/17 11:00 09/27/17 10:59 08/30/17 12:45 Acetylcysteine (Mucomyst) 200 mg Q6HRT HHN 08/30/17 13:00 09/29/17 12:59 08/30/17 12:54 Albuterol/ Ipratropium (Albuterol/ Ipratropium) 3 ml Q4H PRN HHN Shortness of Breath 08/30/17 15:00 09/02/17 14:59 Allopurinol (Allopurinol) 300 mg DAILY NG 08/30/17 11:00 09/25/17 10:59 08/30/17 10:59 Aspirin (ASA) 81 mg DAILY GT 08/30/17 09:00 09/19/17 08:59 08/30/17 08:54 Atorvastatin Calcium (Lipitor) 20 mg BEDTIME GT 08/29/17 21:00 09/21/17 20:59 08/29/17 20:50 Dextrose (Dextrose 50%) STAT PRN IV Hypoglycemia 08/29/17 10:30 09/27/17 10:29 Epoetin Dario (Procrit (for ESRD on dialysis)) 10,000 units MON-WED-FRI SUBQ 08/31/17 21:00 09/20/17 20:59 Guaifenesin (Mucinex ER) 1,200 mg TWICE A DAY ORAL 08/29/17 18:00 09/27/17 17:59 08/30/17 17:10 Guaifenesin (Robitussin) 200 mg Q4H PRN ORAL For Cough 08/29/17 11:00 09/27/17 18:59 Heparin Sodium (Porcine) (Heparin 5000 units/ml) 5,000 units EVERY 12 HOURS SUBQ 08/29/17 21:00 09/21/17 20:59 08/30/17 09:50 Insulin Aspart (NovoLOG) BEFORE MEALS AND HS SUBQ 08/29/17 11:30 09/18/17 12:29 08/30/17 17:12 Meropenem 1 gm/ Sodium Chloride 55 ml @ 110 mls/hr Q8HR IVPB 08/29/17 14:00 09/01/17 13:59 08/30/17 16:26 Metoprolol Tartrate (Lopressor) 12.5 mg DAILY GT 08/30/17 09:00 09/23/17 20:59 08/30/17 08:55 Nitroglycerin (Ntg) 0.4 mg Q5MIN X 3 DOSES PRN SL Prn Chest Pain 08/29/17 10:30 09/18/17 10:29 Ondansetron HCl (Zofran) 4 mg Q6H PRN IVP Nausea & Vomiting 08/29/17 10:30 09/18/17 10:29 Pantoprazole (Protonix) 40 mg DAILY IV 08/30/17 09:00 09/19/17 08:59 08/30/17 08:56 Polyethylene Glycol (Miralax) 17 gm DAILYPRN PRN GT Constipation 08/29/17 10:30 09/27/17 10:29 Vancomycin HCl (Vanco rx to dose) 1 ea DAILYPRN PRN MISC RX TO DOSE PROTOCOL 08/29/17 15:00 09/27/17 14:59 Vancomycin HCl/ Dextrose 250 ml @ 125 mls/hr Q48H IVPB 08/30/17 09:00 09/04/17 08:59 08/30/17 08:54 Allergies: Coded Allergies: No Known Allergies (Unverified , 06/01/17) Objective Last Vital Signs Date Time Temp Pulse Resp B/P (MAP) Pulse Ox O2 Delivery O2 Flow Rate FiO2 08/30/17 16:00 97.7 59 20 115/57 95 08/30/17 13:06 Nasal Cannula 3.0 32 Laboratory Tests Test 08/30/17 06:21 White Blood Count 11.3 K/UL (4.8-10.8) H Red Blood Count 3.88 M/UL (4.20-5.40) L Hemoglobin 8.8 G/DL (12.0-16.0) L Hematocrit 31.7 % (37.0-47.0) L Mean Corpuscular Volume 82 FL (80-99) Mean Corpuscular Hemoglobin 22.6 PG (27.0-31.0) L Mean Corpuscular Hemoglobin Concent 27.7 G/DL (32.0-36.0) L Red Cell Distribution Width 19.1 % (11.6-14.8) H Platelet Count 372 K/UL (150-450) Mean Platelet Volume 6.8 FL (6.5-10.1) Neutrophils (%) (Auto) 61.9 % (45.0-75.0) Lymphocytes (%) (Auto) 26.2 % (20.0-45.0) Monocytes (%) (Auto) 9.2 % (1.0-10.0) Eosinophils (%) (Auto) 1.6 % (0.0-3.0) Basophils (%) (Auto) 1.0 % (0.0-2.0) Iron Level 28 ug/dL (50-175) L Total Iron Binding Capacity 283 ug/dL (250-450) Percent Iron Saturation 10 % (15-50) L Unsaturated Iron Binding 255 ug/dL (112-346) Intake and Output 08/29/17 08/30/17 19:00 07:00 Intake Total 595 ml 480 ml Output Total 5100 ml Balance 595 ml -4620 ml Intake Oral 540 ml 480 ml IV Total 55 ml Output Urine Total 5100 ml # Bowel Movements 1 Assessment/Plan Assessment/Plan nding Doctor: Brittany Edmond Assessment/Plan Assessment/Plan Problem List: (1) SVT (supraventricular tachycardia) ICD Codes: I47.1 - Supraventricular tachycardia SNOMED: 8489773 (2) Acute respiratory failure with hypoxia and hypercapnia ICD Codes: J96.01 - Acute respiratory failure with hypoxia; J96.02 - Acute respiratory failure with hypercapnia SNOMED: 42985930, 16349175, 568127875 (3) Septic shock ICD Codes: A41.9 - Sepsis, unspecified organism; R65.21 - Severe sepsis with septic shock SNOMED: 72335869 (4) KASHIF (acute kidney injury) ICD Codes: N17.9 - Acute kidney failure, unspecified SNOMED: 91379439 (5) Lactic acid acidosis ICD Codes: E87.2 - Acidosis SNOMED: 07892368 (6) Hyperkalemia ICD Codes: E87.5 - Hyperkalemia; J96.02 - Acute respiratory failure with hypercapnia SNOMED: 69616699, 91795574, 828128842 (7) Acute toxic metabolic encephalopathy (8) Shock liver ICD Codes: K72.00 - Acute and subacute hepatic failure without coma SNOMED: 296036676 (9) Non-STEMI (non-ST elevated myocardial infarction) ICD Codes: I21.4 - Non-ST elevation (NSTEMI) myocardial infarction; J96.02 - Acute respiratory failure with hypercapnia SNOMED: 205096189, 80483437, 310339012 (10) DM2 (diabetes mellitus, type 2) ICD Codes: E11.9 - Type 2 diabetes mellitus without complications SNOMED: 22569228 (11) Asthma ICD Codes: J45.909 - Unspecified asthma, uncomplicated SNOMED: 259976451 (12) GERD (gastroesophageal reflux disease) ICD Codes: K21.9 - Gastro-esophageal reflux disease without esophagitis SNOMED: 682164585 (13) Fatty liver ICD Codes: K76.0 - Fatty (change of) liver, not elsewhere classified SNOMED: 263021472 (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 ICD Codes: R76.8 - Other specified abnormal immunological findings in serum SNOMED: 913996409 Status: stable Assessment/Plan Pulmonology, Nephrology, GI, ID, Cardiology consulted Empiric vanco, meropenem and azithro per ID F/u cultures Pt extubated on 08/26/17. Monitor respiratory status closely. BiPAP qHS and PRN Duonebs ATC and PRN continue mucomyst Mucinex BID + guaifenesin PRN cough, congestion Now off pressors Arterial line placed 08/20/17 Trend lactate--downtrending Trend trop/EKG--downtrending ASA, statin F/u ECHO--EF 70%, grade 1 diastolic dysfcn, LVH Cont on MTP per cardiology; digoxin d/c'd HD on hold per renal as Cr improving. Last HD 08/22. HD line removed on 08/27 Trend BMP closely s/p mucomyst IV for shock liver/hepatitis per GI Trend LFTs--downtrending Swallow eval--OK for puree diet PPI Pain control, supportive care, bowel regimen DVT Prophylaxis: HSQ Code Status: Full Hospital Classification Declaration: Based on this initial evaluation, and depending on the patient's clinical course, I anticipate that this patient will require hospitalization for 2-3 days for acute respiratory failure, septic shock and close respiratory/hemodynamic monitoring. Dispo: likely back to SNF in 2-3 D/w pt, PCP, renal, pulm, ID regarding mgmt and dispo/w ID re abx. Time of note may not reflect time of encounter. Subjective Subjective Date patient seen: Aug 28, 2017 Time patient seen: 12:49 ROS Limited/Unobtainable: No Constitutional: Reports: no symptoms HEENT: Reports: no symptoms Cardiovascular: Reports: no symptoms Respiratory: Reports: cough, shortness of breath Gastrointestinal/Abdominal: Reports: no symptoms Genitourinary: Reports: no symptoms Neurologic/Psychiatric: Reports: no symptoms Endocrine: Reports: no symptoms Hematologic/Lymphatic: Reports: no symptoms Allergies: Coded Allergies: No Known Allergies (Unverified , 06/01/17) All Systems: reviewed and negative except above Subjective No acute o/n events Off pressors now Extubated on 08/26, now on NC Pt awake alert. Doing well on NC so far. C/o cough, congestion, some SOB. Denies f/c, n/v, d/c, chest pain, abd pain Objective Objective Last 24 Hour Vital Signs Date Time Temp Pulse Resp B/P (MAP) Pulse Ox O2 Delivery O2 Flow Rate FiO2 08/28/17 12:00 72 08/28/17 12:00 97.7 72 23 119/97 95 Nasal Cannula 3.0 08/28/17 11:00 76 22 105/52 98 Nasal Cannula 3.0 08/28/17 10:00 72 21 106/52 100 Nasal Cannula 3.0 08/28/17 09:00 71 20 131/101 98 Nasal Cannula 3.0 08/28/17 08:56 67 125/66 08/28/17 08:27 66 20 100 Nasal Cannula 3.0 32 08/28/17 08:19 Nasal Cannula 3.0 32 08/28/17 08:19 98 Nasal Cannula 3.0 32 08/28/17 08:16 66 22 98 Nasal Cannula 3.0 32 08/28/17 08:00 98.3 69 20 125/66 98 Nasal Cannula 3.0 08/28/17 08:00 63 08/28/17 07:00 69 22 102/46 99 Bi-pap 40 08/28/17 06:00 71 20 122/44 90 Bi-pap 40 08/28/17 05:23 63 26 97 Facial 40 08/28/17 05:00 63 20 111/46 97 Bi-pap 40 08/28/17 04:00 69 08/28/17 04:00 97.9 70 20 115/45 97 Bi-pap 40 08/28/17 03:25 60 30 96 Facial 40 08/28/17 03:00 68 20 118/45 86 Nasal Cannula 3.0 08/28/17 02:00 68 20 114/44 86 Nasal Cannula 3.0 08/28/17 01:39 71 20 97 Nasal Cannula 3.0 32 08/28/17 01:28 32 08/28/17 01:27 73 22 95 Nasal Cannula 3.0 32 08/28/17 01:00 74 20 102/44 97 Nasal Cannula 3.0 08/28/17 00:00 104 21 100/48 98 Nasal Cannula 3.0 08/28/17 00:00 74 08/27/17 23:00 70 23 103/50 93 Nasal Cannula 3.0 08/27/17 22:00 72 23 104/48 93 Nasal Cannula 3.0 08/27/17 21:00 72 23 107/48 93 Nasal Cannula 3.0 08/27/17 20:00 74 08/27/17 20:00 73 24 107/44 96 Nasal Cannula 3.0 08/27/17 19:13 94 Nasal Cannula 3.0 32 08/27/17 19:13 Nasal Cannula 3.0 32 08/27/17 19:10 73 20 97 Nasal Cannula 3.0 32 08/27/17 19:00 71 22 94 Nasal Cannula 3.0 32 08/27/17 19:00 97.9 74 24 95/51 98 Nasal Cannula 3.0 08/27/17 19:00 32 18 18:00 72 25 111/53 96 Nasal Cannula 3.0 08/27/17 17:06 66 20 94 Nasal Cannula 3.0 08/27/17 17:00 71 19 113/57 97 Nasal Cannula 3.0 08/27/17 16:00 64 08/27/17 16:00 97.7 68 31 127/58 92 Nasal Cannula 3.0 08/27/17 15:00 64 31 126/49 95 Nasal Cannula 3.0 08/27/17 14:00 63 30 135/55 95 Nasal Cannula 3.0 08/27/17 13:00 64 22 128/64 94 Nasal Cannula 3.0 Intake and Output 08/27/17 08/28/17 19:00 07:00 Intake Total 2815 ml 1300 ml Output Total 1485 ml 1560 ml Balance 1330 ml -260 ml Intake Oral 2760 ml 1300 ml IV Total 55 ml Output Urine Total 1485 ml 1560 ml # Bowel Movements 1 Laboratory Tests 08/28/17 04:30: White Blood Count 12.2H, Red Blood Count 3.51L, Hemoglobin 8.0L, Hematocrit 28.9L, Mean Corpuscular Volume 82, Mean Corpuscular Hemoglobin 22.8L, Mean Corpuscular Hemoglobin Concent 27.6L, Red Cell Distribution Width 18.7H, Platelet Count 273, Mean Platelet Volume 7.1, Neutrophils (%) (Auto) 66.2, Lymphocytes (%) (Auto) 21.0, Monocytes (%) (Auto) 9.9, Eosinophils (%) (Auto) 2.2, Basophils (%) (Auto) 0.7, Sodium Level 143, Potassium Level 4.1, Chloride Level 105, Carbon Dioxide Level 36H, Anion Gap 2L, Blood Urea Nitrogen 47H, Creatinine 1.6H, Estimat Glomerular Filtration Rate 40.0, Glucose Level 155H, Calcium Level 8.6, Phosphorus Level 4.6, Magnesium Level 1.9, Total Bilirubin 0.5, Aspartate Amino Transf (AST/SGOT) 36, Alanine Aminotransferase (ALT/SGPT) 303H, Alkaline Phosphatase 69, Troponin I 0.463H, Total Protein 6.6, Albumin 2.0L, Globulin 4.6, Albumin/Globulin Ratio 0.4L, Random Vancomycin Level 9.5, Hepatitis B Surface Antibody [Pending], Hepatitis B Core Total Antibody [Pending ] 08/28/17 07:16: Arterial Blood pH 7.330L, Arterial Blood Partial Pressure CO2 62.2*H, Arterial Blood Partial Pressure O2 103.7H, Arterial Blood HCO3 32.1H, Arterial Blood Oxygen Saturation 96.9, Arterial Blood Base Excess 5.2, Doroteo Test Positive Height (Feet): 5 Height (Inches): 3.00 Weight (Pounds): 480 Objective General: awake, alert, morbidly obese Head: normocephalic, without obvious abnormality, atraumatic Eyes: conjunctivae/corneas clear. PERRL, EOM's intact Throat: lips, mucosa, and tongue normal. MMM Neck: supple, symmetrical, trachea midline, and no JVD Lungs: clear to auscultation bilaterally, decreased breath sounds Heart: regular rate and rhythm, S1, S2 normal, no murmur, click, rub or gallop Abdomen: soft, non-tender, non-distended, bowel sounds normal Extremities: extremities normal, atraumatic, no cyanosis or edema Pulses: 2+ and symmetric Skin: skin color, texture, turgor normal; no rashes or lesions Neurologic: grossly intact Maryjane Simon M.D. Aug 30, 2017 19:04
[2017-08-30] MEDS: Albuterol/Ipratropium 3ml neb HHN PRN (19:13)
[2017-08-30 20:00] VITALS: BP 120/49
[2017-08-30] MEDS: Atorvastatin 20mg tab GT SCH (20:36)
[2017-08-30] MEDS ORDERED: GUAIFENESI100 MG/5 M ORAL (23:52)
[2017-08-30] MEDS ORDERED: ASPIRIN81 MG GT (23:52)
[2017-08-30] MEDS ORDERED: MUCINEX600 MG ORAL (23:52)
[2017-08-30] MEDS ORDERED: LIPITOR20 MG GT (23:52)
[2017-08-30] MEDS ORDERED: ALLOPURINOL100 M1 NG (23:52)
[2017-08-31] VITALS: BP 115/51
[2017-08-31 04:00] VITALS: BP 141/70
[2017-08-31] MEDS: Acetaminophen 650mg/20.3ml NG PRN ×2 (04:15→19:56)
[2017-08-31] MEDS: Meropenem 1 GM in NS 55 ML IVPB SCH (05:51)
[2017-08-31] MEDS: NovoLOG Insulin Flexpen SUBQ SCH ×4 (06:01→21:25)
[2017-08-31 07:26] LABS: BASOPHILS % (AUTO) 0.9 % (0.0-2.0); EOSINOPHILS % (AUTO) 2.5 % (0.0-3.0); HEMATOCRIT 31.7 % (37.0-47.0); HEMOGLOBIN 8.7 G/DL (12.0-16.0); LYMPHOCYTES % (AUTO) 28.5 % (20.0-45.0); MEAN CORPUSCULAR VOLUME 83 FL (80-99); MONOCYTES % (AUTO) 8.4 % (1.0-10.0); NEUTROPHILS % (AUTO) 59.6 % (45.0-75.0); PLATELET COUNT 422 K/UL (150-450); RED CELL DISTRIBUTION WIDTH 19.7 % (11.6-14.8); WHITE BLOOD COUNT 11.5 K/UL (4.8-10.8)
[2017-08-31 07:31] LABS: ALANINE AMINOTRANSFERASE 161 U/L (12-78); ALBUMIN 2.2 G/DL (3.4-5.0); ALBUMIN/GLOBULIN RATIO 0.5 (1.0-2.7); ALKALINE PHOSPHATASE 70 U/L (46-116); ANION GAP -1 mmol/L (5-15); ASPARTATE AMINO TRANSFERASE 28 U/L (15-37); BILIRUBIN,TOTAL 0.4 MG/DL (0.2-1.0); BLOOD UREA NITROGEN 20 mg/dL (7-18); CARBON DIOXIDE 40 MMOL/L (21-32); CHLORIDE 103 MMOL/L (98-107); POTASSIUM 4.4 MMOL/L (3.5-5.1); SODIUM 142 MMOL/L (136-145)
[2017-08-31 07:32] VITALS: BP 154/78
[2017-08-31] MEDS: Albuterol/Ipratropium 3ml neb HHN PRN ×3 (08:13→19:59)
[2017-08-31] MEDS: Pantoprazole Inj IV SCH (09:00)
[2017-08-31] MEDS: Metoprolol Tartrate 12.5mg TAB GT SCH (09:11)
[2017-08-31] MEDS: guaiFENesin ER 600mg tab ORAL SCH ×2 (09:11→18:22)
[2017-08-31] MEDS: Aspirin Baby 81mg GT SCH (09:11)
[2017-08-31] MEDS: Heparin 5000 units/ml inj SUBQ SCH ×2 (09:13→21:26)
[2017-08-31 12:06] VITALS: BP 152/72
[2017-08-31] MEDS ORDERED: ACETYLCYST100 MG/1 M HHN (13:16)
[2017-08-31] MEDS ORDERED: DUONEB 0.5-3(2.53 ML HHN (13:16)
[2017-08-31] MEDS ORDERED: LOPRESSOR25 M1 PO (13:21)
[2017-08-31] MEDS ORDERED: Augmentin 875mg Tab ORAL ONE (14:00)
--- NOTE | 2017-08-31 14:54 | Cardiac Electrophysiology PN ---
Assessment/Plan Assessment/Plan 1. NSTEMI with Trop peak 16.4. EF 75%. No chest pain On Aspirin, Lipitor and Lopressor 12.5 bid. Can't do cardiac cath in view of extreme obesity of almost 500 pounds 2. Recurrent SVT at rate 200 bpm. Terminated transiently with 12 Adenosine. Finally converted with the second dose of digoxin. Continue Lopressor 12.5 bid and Digoxin 0.125 daily. Too heavy for EP study. 3. S/P Respiratory failure . Now on Oxygen. 4. Accelerated Junctional rhythm. No further, Watch on Lopressor 5. S/P Septic shock. On broad-spectrum intravenous antibiotic and off pressors 6. Morbid obesity 484 Lbs. 7. Severe hyperkalemia, resolved after HD. No further HD. ROLLY RN and Dr Monaco Subjective Subjective No chest pain or SOB, off tele. Alert and oriented x3 . Objective Last 24 Hour Vital Signs Date Time Temp Pulse Resp B/P (MAP) Pulse Ox O2 Delivery O2 Flow Rate FiO2 08/31/17 14:03 86 20 99 Nasal Cannula 3.0 32 08/31/17 13:53 86 24 87 Nasal Cannula 3.0 08/31/17 12:06 98.0 79 16 152/72 99 Nasal Cannula 08/31/17 09:11 74 154/78 08/31/17 08:24 74 20 97 Nasal Cannula 3.0 32 08/31/17 08:14 72 22 93 Nasal Cannula 3.0 32 08/31/17 07:49 Nasal Cannula 3.0 32 08/31/17 07:48 97 Nasal Cannula 3.0 32 08/31/17 07:32 97.3 65 18 154/78 99 Nasal Cannula 08/31/17 04:00 97.4 75 21 141/70 97 08/31/17 00:00 97.4 66 20 115/51 98 Nasal Cannula 2.0 08/30/17 22:34 99 08/30/17 20:00 96.1 86 20 120/49 100 Nasal Cannula 2.0 08/30/17 19:43 59 20 97 Nasal Cannula 3.0 32 08/30/17 19:09 32 08/30/17 19:08 59 20 97 Nasal Cannula 3.0 32 08/30/17 19:07 Nasal Cannula 3.0 32 08/30/17 19:07 97 Nasal Cannula 3.0 32 08/30/17 16:00 97.7 59 20 115/57 95 Intake and Output 08/30/17 08/31/17 19:00 07:00 Intake Total 1085 ml Output Total 2200 ml 2000 ml Balance -1115 ml -2000 ml Intake Oral 780 ml IV Total 305 ml Output Urine Total 2200 ml 2000 ml Laboratory Tests Test 08/31/17 05:40 White Blood Count 11.5 K/UL (4.8-10.8) H Red Blood Count 3.80 M/UL (4.20-5.40) L Hemoglobin 8.7 G/DL (12.0-16.0) L Hematocrit 31.7 % (37.0-47.0) L Mean Corpuscular Volume 83 FL (80-99) Mean Corpuscular Hemoglobin 23.0 PG (27.0-31.0) L Mean Corpuscular Hemoglobin Concent 27.6 G/DL (32.0-36.0) L Red Cell Distribution Width 19.7 % (11.6-14.8) H Platelet Count 422 K/UL (150-450) Mean Platelet Volume 6.7 FL (6.5-10.1) Neutrophils (%) (Auto) 59.6 % (45.0-75.0) Lymphocytes (%) (Auto) 28.5 % (20.0-45.0) Monocytes (%) (Auto) 8.4 % (1.0-10.0) Eosinophils (%) (Auto) 2.5 % (0.0-3.0) Basophils (%) (Auto) 0.9 % (0.0-2.0) Sodium Level 142 MMOL/L (136-145) Potassium Level 4.4 MMOL/L (3.5-5.1) Chloride Level 103 MMOL/L (98-107) Carbon Dioxide Level 40 MMOL/L (21-32) H Anion Gap -1 mmol/L (5-15) L Blood Urea Nitrogen 20 mg/dL (7-18) H Creatinine 1.0 MG/DL (0.55-1.30) Estimat Glomerular Filtration Rate > 60 mL/min (>60) Glucose Level 130 MG/DL (74-106) H Calcium Level 9.0 MG/DL (8.5-10.1) Total Bilirubin 0.4 MG/DL (0.2-1.0) Aspartate Amino Transf (AST/SGOT) 28 U/L (15-37) Alanine Aminotransferase (ALT/SGPT) 161 U/L (12-78) H Alkaline Phosphatase 70 U/L (46-116) Total Protein 7.0 G/DL (6.4-8.2) Albumin 2.2 G/DL (3.4-5.0) L Globulin 4.8 g/dL Albumin/Globulin Ratio 0.5 (1.0-2.7) L Alpha Fetoprotein Pending Objective HEENT: No JVD LUNGS: Decreased breath sounds. CARDIOVASCULAR: Regular S1 and S2 with no gallop. ABDOMEN: Morbidly obese. EXTREMITIES: 2+ pitting edema. DIANDRA CUMMINGS Aug 31, 2017 14:54
--- NOTE | 2017-08-31 15:18 | Nephrology Progress Note ---
Assessment/Plan Problem List: (1) Acute renal failure (ARF) (2) Acute respiratory acidosis (3) Lactic acid acidosis (4) Septic shock (5) Acute respiratory failure with hypoxia and hypercapnia (6) Elevated troponin I level Assessment acute renal failure, Cr lowering 1.5 today Hyperkalemia resolved sepsis, high Lactic , acidosis low BP resolved resp failure now extubated obese rapid rise in Troponin- now on way down Plan right jugular dialysis catheter now removed PRN diuretics, zaroxyllin hold Dig and Lopressor for low HR Low dose diamox Last dialysis 08/22 K , Mg, Phos supplements as needed per cardiology and ID and pulm discussed with ID monitor renal parameters and dialysis as needed Subjective ROS Limited/Unobtainable: No Constitutional: Reports: malaise Objective Objective Last 24 Hour Vital Signs Date Time Temp Pulse Resp B/P (MAP) Pulse Ox O2 Delivery O2 Flow Rate FiO2 08/31/17 14:03 86 20 99 Nasal Cannula 3.0 32 08/31/17 13:53 86 24 87 Nasal Cannula 3.0 08/31/17 12:06 98.0 79 16 152/72 99 Nasal Cannula 08/31/17 09:11 74 154/78 08/31/17 08:24 74 20 97 Nasal Cannula 3.0 32 08/31/17 08:14 72 22 93 Nasal Cannula 3.0 32 08/31/17 07:49 Nasal Cannula 3.0 32 08/31/17 07:48 97 Nasal Cannula 3.0 32 08/31/17 07:32 97.3 65 18 154/78 99 Nasal Cannula 08/31/17 04:00 97.4 75 21 141/70 97 08/31/17 00:00 97.4 66 20 115/51 98 Nasal Cannula 2.0 08/30/17 22:34 99 08/30/17 20:00 96.1 86 20 120/49 100 Nasal Cannula 2.0 08/30/17 19:43 59 20 97 Nasal Cannula 3.0 32 08/30/17 19:09 32 08/30/17 19:08 59 20 97 Nasal Cannula 3.0 32 08/30/17 19:07 Nasal Cannula 3.0 32 08/30/17 19:07 97 Nasal Cannula 3.0 32 08/30/17 16:00 97.7 59 20 115/57 95 Intake and Output 08/30/17 08/31/17 19:00 07:00 Intake Total 1085 ml Output Total 2200 ml 2000 ml Balance -1115 ml -2000 ml Intake Oral 780 ml IV Total 305 ml Output Urine Total 2200 ml 2000 ml Laboratory Tests 08/31/17 05:40: White Blood Count 11.5H, Red Blood Count 3.80L, Hemoglobin 8.7L, Hematocrit 31.7L, Mean Corpuscular Volume 83, Mean Corpuscular Hemoglobin 23.0L, Mean Corpuscular Hemoglobin Concent 27.6L, Red Cell Distribution Width 19.7H, Platelet Count 422, Mean Platelet Volume 6.7, Neutrophils (%) (Auto) 59.6, Lymphocytes (%) (Auto) 28.5, Monocytes (%) (Auto) 8.4, Eosinophils (%) (Auto) 2.5, Basophils (%) (Auto) 0.9, Sodium Level 142, Potassium Level 4.4, Chloride Level 103, Carbon Dioxide Level 40H, Anion Gap -1L, Blood Urea Nitrogen 20H, Creatinine 1.0, Estimat Glomerular Filtration Rate > 60, Glucose Level 130H, Calcium Level 9.0, Total Bilirubin 0.4, Aspartate Amino Transf (AST/SGOT) 28, Alanine Aminotransferase (ALT/SGPT) 161H, Alkaline Phosphatase 70, Total Protein 7.0, Albumin 2.2L, Globulin 4.8, Albumin/Globulin Ratio 0.5L, Alpha Fetoprotein [Pending] Height (Feet): 5 Height (Inches): 3.00 Weight (Pounds): 491 General Appearance: no apparent distress Cardiovascular: normal rate Respiratory/Chest: decreased breath sounds Abdomen: other - obese Objective no change AGUSTIN CONTRERAS Aug 31, 2017 15:18
--- NOTE | 2017-08-31 15:48 | GI Progress Note ---
Assessment/Plan Problems: (1) Shock liver ICD Codes: K72.00 - Acute and subacute hepatic failure without coma SNOMED: 091773160 (2) Anemia ICD Codes: D64.9 - Anemia, unspecified SNOMED: 650780279 (3) Morbid obesity ICD Codes: E66.01 - Morbid (severe) obesity due to excess calories SNOMED: 360825112, 02782744966593 (4) Multiple organ failure SNOMED: 92410956 (5) Transaminitis ICD Codes: R74.0 - Nonspecific elevation of levels of transaminase and lactic acid dehydrogenase [LDH] SNOMED: 933665258, 109017684 (6) Septic shock ICD Codes: A41.9 - Sepsis, unspecified organism; R65.21 - Severe sepsis with septic shock SNOMED: 83162290 (7) DM2 (diabetes mellitus, type 2) ICD Codes: E11.9 - Type 2 diabetes mellitus without complications SNOMED: 71858386 (8) GERD (gastroesophageal reflux disease) ICD Codes: K21.9 - Gastro-esophageal reflux disease without esophagitis SNOMED: 420344799 Status: doing well, progressing Status Narrative Discussed with Dr. Cordero. Assessment/Plan transaminitis due to shock liver >> no normal h/o hep B exposure but no active DZ iron deficiency >> venofer monitor H&H check stool ob fu LFTS AFP on regular diet fu labs Subjective Gastrointestinal/Abdominal: Reports: constipated Objective Last 24 Hour Vital Signs Date Time Temp Pulse Resp B/P (MAP) Pulse Ox O2 Delivery O2 Flow Rate FiO2 08/31/17 14:03 86 20 99 Nasal Cannula 3.0 32 08/31/17 13:53 86 24 87 Nasal Cannula 3.0 08/31/17 12:06 98.0 79 16 152/72 99 Nasal Cannula 08/31/17 09:11 74 154/78 08/31/17 08:24 74 20 97 Nasal Cannula 3.0 32 08/31/17 08:14 72 22 93 Nasal Cannula 3.0 32 08/31/17 07:49 Nasal Cannula 3.0 32 08/31/17 07:48 97 Nasal Cannula 3.0 32 08/31/17 07:32 97.3 65 18 154/78 99 Nasal Cannula 08/31/17 04:00 97.4 75 21 141/70 97 08/31/17 00:00 97.4 66 20 115/51 98 Nasal Cannula 2.0 08/30/17 22:34 99 08/30/17 20:00 96.1 86 20 120/49 100 Nasal Cannula 2.0 08/30/17 19:43 59 20 97 Nasal Cannula 3.0 32 08/30/17 19:09 32 08/30/17 19:08 59 20 97 Nasal Cannula 3.0 32 08/30/17 19:07 Nasal Cannula 3.0 32 08/30/17 19:07 97 Nasal Cannula 3.0 32 08/30/17 16:00 97.7 59 20 115/57 95 Intake and Output 08/30/17 08/31/17 19:00 07:00 Intake Total 1085 ml Output Total 2200 ml 2000 ml Balance -1115 ml -2000 ml Intake Oral 780 ml IV Total 305 ml Output Urine Total 2200 ml 2000 ml Laboratory Tests Test 08/31/17 05:40 White Blood Count 11.5 K/UL (4.8-10.8) H Red Blood Count 3.80 M/UL (4.20-5.40) L Hemoglobin 8.7 G/DL (12.0-16.0) L Hematocrit 31.7 % (37.0-47.0) L Mean Corpuscular Volume 83 FL (80-99) Mean Corpuscular Hemoglobin 23.0 PG (27.0-31.0) L Mean Corpuscular Hemoglobin Concent 27.6 G/DL (32.0-36.0) L Red Cell Distribution Width 19.7 % (11.6-14.8) H Platelet Count 422 K/UL (150-450) Mean Platelet Volume 6.7 FL (6.5-10.1) Neutrophils (%) (Auto) 59.6 % (45.0-75.0) Lymphocytes (%) (Auto) 28.5 % (20.0-45.0) Monocytes (%) (Auto) 8.4 % (1.0-10.0) Eosinophils (%) (Auto) 2.5 % (0.0-3.0) Basophils (%) (Auto) 0.9 % (0.0-2.0) Sodium Level 142 MMOL/L (136-145) Potassium Level 4.4 MMOL/L (3.5-5.1) Chloride Level 103 MMOL/L (98-107) Carbon Dioxide Level 40 MMOL/L (21-32) H Anion Gap -1 mmol/L (5-15) L Blood Urea Nitrogen 20 mg/dL (7-18) H Creatinine 1.0 MG/DL (0.55-1.30) Estimat Glomerular Filtration Rate > 60 mL/min (>60) Glucose Level 130 MG/DL (74-106) H Uric Acid Pending Calcium Level 9.0 MG/DL (8.5-10.1) Phosphorus Level Pending Total Bilirubin 0.4 MG/DL (0.2-1.0) Aspartate Amino Transf (AST/SGOT) 28 U/L (15-37) Alanine Aminotransferase (ALT/SGPT) 161 U/L (12-78) H Alkaline Phosphatase 70 U/L (46-116) Total Protein 7.0 G/DL (6.4-8.2) Albumin 2.2 G/DL (3.4-5.0) L Globulin 4.8 g/dL Albumin/Globulin Ratio 0.5 (1.0-2.7) L Alpha Fetoprotein Pending Height (Feet): 5 Height (Inches): 3.00 Weight (Pounds): 491 General Appearance: WD/WN, no apparent distress, alert, morbidly obese Cardiovascular: normal rate Respiratory/Chest: normal breath sounds, no respiratory distress Abdominal Exam: normal bowel sounds, non tender, soft Extremities: non-tender Caren Nixon N.P. Aug 31, 2017 15:48
[2017-08-31 16:00] VITALS: BP 136/66
[2017-08-31 16:27] LABS: PHOSPHORUS 4.6 MG/DL (2.5-4.9)
--- NOTE | 2017-08-31 16:27 | Diagnostic Imaging Report ---
Indication: Dyspnea Technique: XRAY Chest 1v Comparison: 08/29/2017 Findings: Stable cardiomegaly. There is persistent interstitial and bilateral patchy airspace opacities. These findings are without significant interval change allowing for differences in technique. No large pleural effusion. No definite pneumothorax. Impression: Cardiomegaly and congestive failure, not significantly changed compared to the prior exam.
--- NOTE | 2017-08-31 16:39 | Pulmonology Progress Note ---
Assessment/Plan Problems: (1) Septic shock (2) Acute respiratory failure with hypoxia and hypercarbia (3) Acute renal failure (ARF) (4) Acute toxic metabolic encephalopathy (5) DM2 (diabetes mellitus, type 2) (6) Asthma (7) Hepatitis B core antibody positive Assessment/Plan improving titrate fio2 chest pt check electrolytes pt/ot dc planning in process. Subjective ROS Limited/Unobtainable: No Constitutional: Reports: no symptoms HEENT: Repors: no symptoms Allergies: Coded Allergies: No Known Allergies (Unverified , 06/01/17) Objective Last 24 Hour Vital Signs Date Time Temp Pulse Resp B/P (MAP) Pulse Ox O2 Delivery O2 Flow Rate FiO2 08/31/17 14:03 86 20 99 Nasal Cannula 3.0 32 08/31/17 13:53 86 24 87 Nasal Cannula 3.0 08/31/17 12:06 98.0 79 16 152/72 99 Nasal Cannula 08/31/17 09:11 74 154/78 08/31/17 08:24 74 20 97 Nasal Cannula 3.0 32 08/31/17 08:14 72 22 93 Nasal Cannula 3.0 32 08/31/17 07:49 Nasal Cannula 3.0 32 08/31/17 07:48 97 Nasal Cannula 3.0 32 08/31/17 07:32 97.3 65 18 154/78 99 Nasal Cannula 08/31/17 04:00 97.4 75 21 141/70 97 08/31/17 00:00 97.4 66 20 115/51 98 Nasal Cannula 2.0 08/30/17 22:34 99 08/30/17 20:00 96.1 86 20 120/49 100 Nasal Cannula 2.0 08/30/17 19:43 59 20 97 Nasal Cannula 3.0 32 08/30/17 19:09 32 08/30/17 19:08 59 20 97 Nasal Cannula 3.0 32 08/30/17 19:07 Nasal Cannula 3.0 32 08/30/17 19:07 97 Nasal Cannula 3.0 32 Intake and Output 08/30/17 08/31/17 19:00 07:00 Intake Total 1085 ml Output Total 2200 ml 2000 ml Balance -1115 ml -2000 ml Intake Oral 780 ml IV Total 305 ml Output Urine Total 2200 ml 2000 ml Objective HEENT: atraumatic Lungs: chest wall tender Heart: HR/BP unstable, regular Abdomen: non-tender, active bowel sounds, Extremities: edema Laboratory Tests 08/31/17 05:40: White Blood Count 11.5H, Red Blood Count 3.80L, Hemoglobin 8.7L, Hematocrit 31.7L, Mean Corpuscular Volume 83, Mean Corpuscular Hemoglobin 23.0L, Mean Corpuscular Hemoglobin Concent 27.6L, Red Cell Distribution Width 19.7H, Platelet Count 422, Mean Platelet Volume 6.7, Neutrophils (%) (Auto) 59.6, Lymphocytes (%) (Auto) 28.5, Monocytes (%) (Auto) 8.4, Eosinophils (%) (Auto) 2.5, Basophils (%) (Auto) 0.9, Sodium Level 142, Potassium Level 4.4, Chloride Level 103, Carbon Dioxide Level 40H, Anion Gap -1L, Blood Urea Nitrogen 20H, Creatinine 1.0, Estimat Glomerular Filtration Rate > 60, Glucose Level 130H, Uric Acid 6.4, Calcium Level 9.0, Phosphorus Level 4.6, Total Bilirubin 0.4, Aspartate Amino Transf (AST/SGOT) 28, Alanine Aminotransferase (ALT/SGPT) 161H, Alkaline Phosphatase 70, Total Protein 7.0, Albumin 2.2L, Globulin 4.8, Albumin/ Globulin Ratio 0.5L, Alpha Fetoprotein [Pending] Current Medications Medications (Trade) Dose Ordered Sig/Felipe Route PRN Reason Start Time Stop Time Status Last Admin Dose Admin Acetaminophen (Tylenol) 650 mg Q6H PRN NG Mild Pain/Temp > 100.1 08/29/17 11:00 09/27/17 10:59 08/31/17 04:15 Acetylcysteine (Mucomyst) 200 mg Q6HRT HHN 08/31/17 13:00 09/30/17 08:59 08/31/17 13:53 Albuterol/ Ipratropium (Albuterol/ Ipratropium) 3 ml Q4H PRN HHN Shortness of Breath 08/30/17 15:00 09/02/17 14:59 08/31/17 13:53 Allopurinol (Allopurinol) 300 mg DAILY NG 08/30/17 11:00 09/25/17 10:59 08/31/17 09:11 Aspirin (ASA) 81 mg DAILY GT 08/30/17 09:00 09/19/17 08:59 08/31/17 09:11 Atorvastatin Calcium (Lipitor) 20 mg BEDTIME GT 08/29/17 21:00 09/21/17 20:59 08/30/17 20:36 Dextrose (Dextrose 50%) STAT PRN IV Hypoglycemia 08/29/17 10:30 09/27/17 10:29 Digoxin (Lanoxin) 0.25 mg DAILY ORAL 09/01/17 09:00 10/01/17 08:59 Epoetin Dario (Procrit (for ESRD on dialysis)) 10,000 units MON-THU-THU SUBQ 08/31/17 21:00 09/20/17 20:59 Guaifenesin (Mucinex ER) 1,200 mg TWICE A DAY ORAL 08/29/17 18:00 09/27/17 17:59 08/31/17 09:11 Guaifenesin (Robitussin) 200 mg Q4H PRN ORAL For Cough 08/29/17 11:00 09/27/17 18:59 Heparin Sodium (Porcine) (Heparin 5000 units/ml) 5,000 units EVERY 12 HOURS SUBQ 08/29/17 21:00 09/21/17 20:59 08/31/17 09:13 Insulin Aspart (NovoLOG) BEFORE MEALS AND HS SUBQ 08/29/17 11:30 09/18/17 12:29 08/31/17 12:13 Iron Sucrose 100 mg/Sodium Chloride 60 ml @ 240 mls/hr BEDTIME IVPB 08/31/17 21:00 09/02/17 21:14 Metoprolol Tartrate (Lopressor) 12.5 mg DAILY GT 08/30/17 09:00 09/23/17 20:59 08/31/17 09:11 Nitroglycerin (Ntg) 0.4 mg Q5MIN X 3 DOSES PRN SL Prn Chest Pain 08/29/17 10:30 09/18/17 10:29 Ondansetron HCl (Zofran) 4 mg Q6H PRN IVP Nausea & Vomiting 08/29/17 10:30 09/18/17 10:29 Pantoprazole (Protonix) 40 mg DAILY IV 08/30/17 09:00 09/19/17 08:59 08/30/17 08:56 Polyethylene Glycol (Miralax) 17 gm DAILYPRN PRN GT Constipation 08/29/17 10:30 09/27/17 10:29 DOMONIQUE DOBBS Aug 31, 2017 16:39
[2017-08-31] MEDS ORDERED: LANOXIN250 MCG ORAL (16:46)
--- NOTE | 2017-08-31 16:46 | General Progress Note ---
Assessment/Plan Problem List: (1) SVT (supraventricular tachycardia) ICD Codes: I47.1 - Supraventricular tachycardia SNOMED: 9989510 (2) Acute respiratory failure with hypoxia and hypercapnia ICD Codes: J96.01 - Acute respiratory failure with hypoxia; J96.02 - Acute respiratory failure with hypercapnia SNOMED: 87570454, 81004144, 014795976 (3) Septic shock ICD Codes: A41.9 - Sepsis, unspecified organism; R65.21 - Severe sepsis with septic shock SNOMED: 06104274 (4) KASHIF (acute kidney injury) ICD Codes: N17.9 - Acute kidney failure, unspecified SNOMED: 17581253 (5) Lactic acid acidosis ICD Codes: E87.2 - Acidosis SNOMED: 10165521 (6) Hyperkalemia ICD Codes: E87.5 - Hyperkalemia; J96.02 - Acute respiratory failure with hypercapnia SNOMED: 74756094, 04827657, 602229446 (7) Acute toxic metabolic encephalopathy (8) Shock liver ICD Codes: K72.00 - Acute and subacute hepatic failure without coma SNOMED: 885456310 (9) Non-STEMI (non-ST elevated myocardial infarction) ICD Codes: I21.4 - Non-ST elevation (NSTEMI) myocardial infarction; J96.02 - Acute respiratory failure with hypercapnia SNOMED: 391109627, 44684356, 742164781 (10) DM2 (diabetes mellitus, type 2) ICD Codes: E11.9 - Type 2 diabetes mellitus without complications SNOMED: 15631570 (11) Asthma ICD Codes: J45.909 - Unspecified asthma, uncomplicated SNOMED: 263546751 (12) GERD (gastroesophageal reflux disease) ICD Codes: K21.9 - Gastro-esophageal reflux disease without esophagitis SNOMED: 715384624 (13) Fatty liver ICD Codes: K76.0 - Fatty (change of) liver, not elsewhere classified SNOMED: 088411458 (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 ICD Codes: R76.8 - Other specified abnormal immunological findings in serum SNOMED: 755607025 Status: stable Assessment/Plan Pulmonology, Nephrology, GI, ID, Cardiology consulted Empiric vanco, meropenem and azithro per ID--last day is today (10 days total per ID) F/u cultures Pt extubated on 08/26/17. Monitor respiratory status closely. BiPAP qHS and PRN Duonebs ATC and PRN Cont mucomyst ATC Mucinex BID + guaifenesin PRN cough, congestion Now off pressors Arterial line placed 08/20/17 and now removed Trend lactate--downtrending Trend trop/EKG--downtrending ASA, statin F/u ECHO--EF 70%, grade 1 diastolic dysfcn, LVH Cont on MTP per cardiology; digoxin d/c'd HD on hold per renal as Cr improving. Last HD 08/22. HD line removed on 08/27 Trend BMP closely s/p mucomyst IV for shock liver/hepatitis per GI Trend LFTs--downtrending Swallow eval--OK for puree diet PPI Pain control, supportive care, bowel regimen D/c vargas prior to d/c to SNF DC planning to SNF either later today or tomorrow pending bed availability DVT Prophylaxis: HSQ Code Status: Full Hospital Classification Declaration: Based on this initial evaluation, and depending on the patient's clinical course, I anticipate that this patient will require hospitalization for 0-1 days for acute respiratory failure, septic shock and close respiratory/hemodynamic monitoring. D/w pt, PCP, renal, pulm, ID regarding mgmt and dispo. D/w ID re abx. D/w pulm re resp status. D/w GI re Hep B IgM + Time of note may not reflect time of encounter. Subjective Date patient seen: Aug 31, 2017 Time patient seen: 16:46 ROS Limited/Unobtainable: No Constitutional: Reports: no symptoms HEENT: Reports: no symptoms Cardiovascular: Reports: no symptoms Respiratory: Reports: cough, shortness of breath Gastrointestinal/Abdominal: Reports: no symptoms Genitourinary: Reports: no symptoms Neurologic/Psychiatric: Reports: no symptoms Endocrine: Reports: no symptoms Hematologic/Lymphatic: Reports: no symptoms Allergies: Coded Allergies: No Known Allergies (Unverified , 06/01/17) Subjective No acute o/n events Off pressors now Extubated on 08/26, now on NC Pt awake alert. Doing well on NC so far. C/o cough, congestion, some SOB but slowly improving. Denies f/c, n/v, d/c, chest pain, abd pain Objective Last 24 Hour Vital Signs Date Time Temp Pulse Resp B/P (MAP) Pulse Ox O2 Delivery O2 Flow Rate FiO2 08/31/17 16:00 96.8 74 20 136/66 90 08/31/17 14:03 86 20 99 Nasal Cannula 3.0 32 08/31/17 13:53 86 24 87 Nasal Cannula 3.0 08/31/17 12:06 98.0 79 16 152/72 99 Nasal Cannula 08/31/17 09:11 74 154/78 08/31/17 08:24 74 20 97 Nasal Cannula 3.0 32 08/31/17 08:14 72 22 93 Nasal Cannula 3.0 32 08/31/17 07:49 Nasal Cannula 3.0 32 08/31/17 07:48 97 Nasal Cannula 3.0 32 08/31/17 07:32 97.3 65 18 154/78 99 Nasal Cannula 08/31/17 04:00 97.4 75 21 141/70 97 08/31/17 00:00 97.4 66 20 115/51 98 Nasal Cannula 2.0 08/30/17 22:34 99 08/30/17 20:00 96.1 86 20 120/49 100 Nasal Cannula 2.0 08/30/17 19:43 59 20 97 Nasal Cannula 3.0 32 08/30/17 19:09 32 08/30/17 19:08 59 20 97 Nasal Cannula 3.0 32 08/30/17 19:07 Nasal Cannula 3.0 32 08/30/17 19:07 97 Nasal Cannula 3.0 32 Intake and Output 08/30/17 08/31/17 19:00 07:00 Intake Total 1085 ml Output Total 2200 ml 2000 ml Balance -1115 ml -2000 ml Intake Oral 780 ml IV Total 305 ml Output Urine Total 2200 ml 2000 ml Laboratory Tests 08/31/17 05:40: White Blood Count 11.5H, Red Blood Count 3.80L, Hemoglobin 8.7L, Hematocrit 31.7L, Mean Corpuscular Volume 83, Mean Corpuscular Hemoglobin 23.0L, Mean Corpuscular Hemoglobin Concent 27.6L, Red Cell Distribution Width 19.7H, Platelet Count 422, Mean Platelet Volume 6.7, Neutrophils (%) (Auto) 59.6, Lymphocytes (%) (Auto) 28.5, Monocytes (%) (Auto) 8.4, Eosinophils (%) (Auto) 2.5, Basophils (%) (Auto) 0.9, Sodium Level 142, Potassium Level 4.4, Chloride Level 103, Carbon Dioxide Level 40H, Anion Gap -1L, Blood Urea Nitrogen 20H, Creatinine 1.0, Estimat Glomerular Filtration Rate > 60, Glucose Level 130H, Uric Acid 6.4, Calcium Level 9.0, Phosphorus Level 4.6, Total Bilirubin 0.4, Aspartate Amino Transf (AST/SGOT) 28, Alanine Aminotransferase (ALT/SGPT) 161H, Alkaline Phosphatase 70, Total Protein 7.0, Albumin 2.2L, Globulin 4.8, Albumin/ Globulin Ratio 0.5L, Alpha Fetoprotein [Pending] Height (Feet): 5 Height (Inches): 3.00 Weight (Pounds): 491 Objective General: awake, alert, morbidly obese Head: normocephalic, without obvious abnormality, atraumatic Eyes: conjunctivae/corneas clear. PERRL, EOM's intact Throat: lips, mucosa, and tongue normal. MMM Neck: supple, symmetrical, trachea midline, and no JVD Lungs: clear to auscultation bilaterally, decreased breath sounds Heart: regular rate and rhythm, S1, S2 normal, no murmur, click, rub or gallop Abdomen: soft, non-tender, non-distended, bowel sounds normal Extremities: extremities normal, atraumatic, no cyanosis or edema Pulses: 2+ and symmetric Skin: skin color, texture, turgor normal; no rashes or lesions Neurologic: grossly intact Cassie Bolivar M.D. Aug 31, 2017 16:46
[2017-08-31] MEDS ORDERED: NS 275ml ONE (18:57)
[2017-08-31 20:00] VITALS: BP 136/63
[2017-08-31] MEDS ORDERED: Epogen (for ESRD on dialysis) SUBQ SCH (21:00)
[2017-08-31] MEDS ORDERED: Iron Sucrose 100 MG in NS 55 ML IVPB SCH (21:00)
[2017-08-31] MEDS: Atorvastatin 20mg tab GT SCH (21:23)
[2017-09-01] VITALS: BP 148/69
[2017-09-01] MEDS: Albuterol/Ipratropium 3ml neb HHN PRN ×2 (01:30→08:46)
[2017-09-01 04:00] VITALS: BP 145/74
[2017-09-01] MEDS: Acetaminophen 650mg/20.3ml NG PRN (05:30)
[2017-09-01] MEDS: NovoLOG Insulin Flexpen SUBQ SCH ×2 (06:27→11:45)
[2017-09-01 07:31] LABS: ALANINE AMINOTRANSFERASE 138 U/L (12-78); ALBUMIN 2.2 G/DL (3.4-5.0); ALBUMIN/GLOBULIN RATIO 0.5 (1.0-2.7); ALKALINE PHOSPHATASE 68 U/L (46-116); ANION GAP 0 mmol/L (5-15); ASPARTATE AMINO TRANSFERASE 26 U/L (15-37); BILIRUBIN,TOTAL 0.4 MG/DL (0.2-1.0); BLOOD UREA NITROGEN 14 mg/dL (7-18); CARBON DIOXIDE 40 MMOL/L (21-32); CHLORIDE 104 MMOL/L (98-107); POTASSIUM 4.3 MMOL/L (3.5-5.1); SODIUM 144 MMOL/L (136-145)
[2017-09-01 08:22] VITALS: BP 150/71
[2017-09-01] MEDS ORDERED: FEOSOL325 MG ORAL (08:48)
[2017-09-01] MEDS: Pantoprazole Inj IV SCH (09:00)
[2017-09-01 09:26] VITALS: BP 110/69
[2017-09-01] MEDS: Aspirin Baby 81mg GT SCH (09:27)
[2017-09-01] MEDS: guaiFENesin ER 600mg tab ORAL SCH (09:27)
[2017-09-01] MEDS: Metoprolol Tartrate 12.5mg TAB GT SCH (09:33)
[2017-09-01] MEDS: Heparin 5000 units/ml inj SUBQ SCH (09:35)
--- NOTE | 2017-09-01 09:49 | Discharge Summary ---
Discharge Summary Hospital Course Date of Admission Aug 19, 2017 at 07:55 Date of Discharge 09/01/17 Admitting Diagnosis respiratory failure, septic shock Reason for Hospitalization: acute respiratory failure, septic shock HPI Zuleyma Ambriz is a 57 year old female who was admitted on Aug 19, 2017 at 07 :55 for Respiratory Failure,Morbid Obesity Consultations Pulmonology - Dr. Malone, Cardiology - Dr. Bejarano, Gastroenterology - Dr. Connors, Infectious disease - Dr. Thapa, Nephrology - Dr. Batista Hospital Course Pt was admitted to ICU in septic shock and acute respiratory failure. She required pressors for hypotension. She was placed on empiric broad-spectrum antibiotics per ID. Source thought to be likely pneumonia. Pt also received course of mucomyst IV for shock liver. She had dialysis line placed and was initiated on hemodialysis. She also had episodes of SVT and was started on metoprolol and digoxin with improvement. Pt's LFTs and Cr slowly improved. Her urine output also improved. Lactate normalized. Once pressors weaned off, she was placed on breathing trials. Cr improved and renal held further dialysis, last HD was 08/22/17. HD line removed. Pt was successfully extubated on 08/26/17. She remained stable on NC thereafter. She completed course of antibiotics while hospitalized and no further antibiotics needed on discharge per ID. Pt also found to have hep B core IgM positive. Per GI, this likely represents an exposure to Hep B but pt has no signs of active disease. On discharge, her LFTs had improved significantly and Cr had normalized. Pt was then discharged back to SNF. Discharge physical exam: General: awake, alert, morbidly obese Head: normocephalic, without obvious abnormality, atraumatic Eyes: conjunctivae/corneas clear. PERRL, EOM's intact Throat: lips, mucosa, and tongue normal. MMM Neck: supple, symmetrical, trachea midline, and no JVD Lungs: clear to auscultation bilaterally, decreased breath sounds Heart: regular rate and rhythm, S1, S2 normal, no murmur, click, rub or gallop Abdomen: soft, non-tender, non-distended, bowel sounds normal Extremities: extremities normal, atraumatic, no cyanosis, +ble edema Pulses: 2+ and symmetric Skin: skin color, texture, turgor normal; no rashes or lesions Neurologic: grossly intact Discharge diagnoses: (1) SVT (supraventricular tachycardia) ICD Codes: I47.1 - Supraventricular tachycardia SNOMED: 6681110 (2) Acute respiratory failure with hypoxia and hypercapnia ICD Codes: J96.01 - Acute respiratory failure with hypoxia; J96.02 - Acute respiratory failure with hypercapnia SNOMED: 24480619, 34768650, 296459442 (3) Septic shock ICD Codes: A41.9 - Sepsis, unspecified organism; R65.21 - Severe sepsis with septic shock SNOMED: 58298057 (4) KASHIF (acute kidney injury) ICD Codes: N17.9 - Acute kidney failure, unspecified SNOMED: 14038818 (5) Lactic acid acidosis ICD Codes: E87.2 - Acidosis SNOMED: 78692334 (6) Hyperkalemia ICD Codes: E87.5 - Hyperkalemia; J96.02 - Acute respiratory failure with hypercapnia SNOMED: 02150110, 82332609, 865698957 (7) Acute toxic metabolic encephalopathy (8) Shock liver ICD Codes: K72.00 - Acute and subacute hepatic failure without coma SNOMED: 913350705 (9) Non-STEMI (non-ST elevated myocardial infarction) ICD Codes: I21.4 - Non-ST elevation (NSTEMI) myocardial infarction; J96.02 - Acute respiratory failure with hypercapnia SNOMED: 411924954, 54271499, 653790695 (10) DM2 (diabetes mellitus, type 2) ICD Codes: E11.9 - Type 2 diabetes mellitus without complications SNOMED: 68520203 (11) Asthma ICD Codes: J45.909 - Unspecified asthma, uncomplicated SNOMED: 514312576 (12) GERD (gastroesophageal reflux disease) ICD Codes: K21.9 - Gastro-esophageal reflux disease without esophagitis SNOMED: 806779955 (13) Fatty liver ICD Codes: K76.0 - Fatty (change of) liver, not elsewhere classified SNOMED: 752242163 (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 ICD Codes: R76.8 - Other specified abnormal immunological findings in serum SNOMED: 555120838 Discharge Medications New Medications: Acetylcysteine* (Acetylcysteine*) 100 Mg/1 Ml Vial 200 MG HHN Q6HRT for 5 Days, VIAL Allopurinol* (Allopurinol*) 100 Mg Tablet 300 MG NG DAILY for 90 Days, TAB Aspirin* (Aspirin*) 81 Mg Tab.chew 81 MG GT DAILY for 90 Days, TAB Atorvastatin Calcium* (Lipitor*) 20 Mg Tablet 20 MG GT BEDTIME for 90 Days, TAB Digoxin* (Lanoxin*) 250 Mcg Tablet 0.25 MG ORAL DAILY for 30 Days, TAB Ferrous Sulfate (Feosol) 325 Mg Tablet 325 MG ORAL THREE TIMES A DAY for 30 Days, TAB Guaifenesin (Mucinex) 600 Mg Tab.er.12h 1200 MG ORAL TWICE A DAY for 14 Days, TAB Guaifenesin* (Guaifenesin) 100 Mg/5 Ml Liquid 200 MG ORAL Q4H PRN for 30 Days, ML Ipratropium/Albuterol Sulfate (DuoNeb 0.5-3(2.5)mg/3ml) 3 Ml Ampul.neb 3 ML HHN Q6HR for 14 Days, EA Metoprolol Tartrate (Metoprolol Tartrate) 25 Mg Tablet 12.5 MG PO BID for 90 Days, TAB Continued Medications: Acetaminophen* (Tylenol Extra Strength*) 500 Mg Tablet 500 MG ORAL Q12HR PRN for Mild Pain/Temp > 100.5, TAB 0 Refills Albuterol Sulfate* (Albuterol Sulfate Hhn*) 2.5 Mg/3 Ml Vial.neb 3 ML INH Q4H PRN for Shortness of Breath, EA Azelastine Hcl (Azelastine Hcl) 6 Ml Drops 6 ML OP, ML Capsaicin (Capsaicin) 42.5 Gm Cream..g. 42.5 GM TP, GM Clonidine Hcl* (Catapres*) 0.1 Mg Tablet 0.1 MG ORAL EVERY 6 HOURS, TAB Cyanocobalamin (Vitamin B-12) (Vitamin B12) 2,500 Mcg Tablet 2500 MCG PO, TAB Diphenoxylate Hcl/Atropine (Lomotil Tablet) 1 Each Tablet 2 TAB ORAL PRN for Diarrhea, #30 TAB 0 Refills Docusate Sodium* (Docusil*) 100 Mg Capsule 100 MG ORAL TWICE A DAY, CAP Fluticasone Propionate (Flonase Allergy Relief) 9.9 Ml Jeff.susp 9.9 ML NS Gabapentin* (Gabapentin*) 600 Mg Tablet 600 MG ORAL QHS, TAB Glipizide (Glipizide Xl) 10 Mg Tab.er.24 10 MG ORAL DAILY, #30 TAB 0 Refills Guar Gum (Nutrisource Fiber) 1 Each Packet 1 EACH PO, PACKET Guar Gum (Nutrisource Fiber) 205 Gm Powder 205 GM PO, GM Insulin Glargine (Lantus) 100 Unit/1 Ml Insuln.pen 21 SUBQ BID, #1 EA 0 Refills Insulin Regular, Human (Humulin R) 100 Unit/1 Ml Vial 0 SUBQ, VIAL Ipratropium Alcove 0.5MG/2.5ML (Ipratropium [place]cove 0.5MG/2.5ML) 0.2 Mg/1 Ml Solution 0.5 MG HHN Q6H PRN for Shortness of Breath, #28 EA Lactobacillus Acidophilus (Acidophilus) 1 Each Capsule 1 EACH PO BID, CAP Lidocaine HCl 2% Viscous (Lidocaine HCl 2% Viscous) 100 Ml Solution 15 ML ORAL QID, ML Loratadine (Loratadine) 10 Mg Capsule 10 MG PO, CAP Pantoprazole* (Protonix*) 40 Mg Tablet.dr 40 MG ORAL DAILY, TAB Prochlorperazine (Compazine*) 10 Mg Tablet 10 MG ORAL Q8HR PRN for Nausea & Vomiting, TAB Promethazine HCl (Promethegan) 25 Mg Supp.rect 25 MG RECTAL Q6H PRN for Nausea & Vomiting, SUPP Ranitidine Hcl* (Zantac*) 150 Mg Tablet 150 MG ORAL TWICE A DAY, TAB Saliva Substitution Combo No.9 (Biotene) 1,000 Ml Mouthwash 1000 ML MM, ML Sitagliptin* (Januvia*) 25 Mg Tablet 100 MG ORAL DAILY, TAB Discharge Condition Upon Discharge: stable Discharge Disposition Patient was discharged to SNF Discharge Diagnoses: Cassie Bolivar M.D. Sep 01, 2017 09:49
[2017-09-01 11:33] VITALS: BP 159/71
--- NOTE | 2017-09-01 11:39 | Nephrology Progress Note ---
Assessment/Plan Problem List: (1) Acute renal failure (ARF) (2) Acute respiratory acidosis (3) Lactic acid acidosis (4) Septic shock (5) Acute respiratory failure with hypoxia and hypercapnia (6) Elevated troponin I level Assessment acute renal failure, Cr lower now wnl Hyperkalemia resolved sepsis, high Lactic , acidosis low BP resolved resp failure now extubated obese rapid rise in Troponin- now on way down Plan right jugular dialysis catheter now removed PRN diuretics, hold Dig and Lopressor for low HR Low dose diamox Last dialysis 08/22 K , Mg, Phos supplements as needed per cardiology and ID and pulm discussed with ID DC planning Subjective ROS Limited/Unobtainable: No Constitutional: Reports: malaise Objective Objective Last 24 Hour Vital Signs Date Time Temp Pulse Resp B/P (MAP) Pulse Ox O2 Delivery O2 Flow Rate FiO2 09/01/17 11:33 97.9 60 21 159/71 99 09/01/17 09:33 59 09/01/17 09:33 59 110/69 09/01/17 09:26 59 110/69 09/01/17 08:22 97.6 63 20 150/71 100 09/01/17 06:00 97.8 09/01/17 04:00 97.8 81 20 145/74 96 09/01/17 01:46 82 20 99 Nasal Cannula 3.0 32 09/01/17 01:36 72 20 98 Nasal Cannula 3.0 09/01/17 00:00 Nasal Cannula 3.0 09/01/17 00:00 98.5 73 20 148/69 96 08/31/17 20:23 88 20 99 Nasal Cannula 3.0 32 08/31/17 20:04 Nasal Cannula 3.0 32 08/31/17 20:04 93 Nasal Cannula 3.0 32 08/31/17 20:04 68 24 93 Nasal Cannula 3.0 08/31/17 20:00 98.7 65 20 136/63 93 08/31/17 20:00 Nasal Cannula 3.0 08/31/17 16:00 96.8 74 20 136/66 90 08/31/17 14:03 86 20 99 Nasal Cannula 3.0 32 08/31/17 13:53 86 24 87 Nasal Cannula 3.0 08/31/17 12:06 98.0 79 16 152/72 99 Nasal Cannula Intake and Output 08/31/17 09/01/17 19:00 07:00 Intake Total 740 ml Output Total 1700 ml 2550 ml Balance -960 ml -2550 ml Intake Oral 740 ml Output Urine Total 1700 ml 2550 ml Laboratory Tests 09/01/17 06:30: Sodium Level 144, Potassium Level 4.3, Chloride Level 104, Carbon Dioxide Level 40H, Anion Gap 0L, Blood Urea Nitrogen 14, Creatinine 1.0, Estimat Glomerular Filtration Rate > 60, Glucose Level 115H, Calcium Level 9.0, Total Bilirubin 0.4 , Aspartate Amino Transf (AST/SGOT) 26, Alanine Aminotransferase (ALT/SGPT) 138H , Alkaline Phosphatase 68, Total Protein 7.0, Albumin 2.2L, Globulin 4.8, Albumin/Globulin Ratio 0.5L Height (Feet): 5 Height (Inches): 3.00 Weight (Pounds): 484 General Appearance: no apparent distress Cardiovascular: normal rate Respiratory/Chest: decreased breath sounds Abdomen: soft, other - obese Objective no change AGUSTIN CONTRERAS Sep 01, 2017 11:39
--- NOTE | 2017-09-01 12:10 | Pulmonology Progress Note ---
Assessment/Plan Problems: (1) Septic shock (2) Acute respiratory failure with hypoxia and hypercarbia (3) Acute renal failure (ARF) (4) Acute toxic metabolic encephalopathy (5) DM2 (diabetes mellitus, type 2) (6) Asthma (7) Hepatitis B core antibody positive Assessment/Plan no new complains improving titrate fio2 chest pt check electrolytes pt/ot dc planning in process. Subjective ROS Limited/Unobtainable: No Interval Events: wake, no new complains Allergies: Coded Allergies: No Known Allergies (Unverified , 06/01/17) Objective Last 24 Hour Vital Signs Date Time Temp Pulse Resp B/P (MAP) Pulse Ox O2 Delivery O2 Flow Rate FiO2 09/01/17 11:33 97.9 60 21 159/71 99 09/01/17 09:33 59 09/01/17 09:33 59 110/69 09/01/17 09:26 59 110/69 09/01/17 08:22 97.6 63 20 150/71 100 09/01/17 06:00 97.8 09/01/17 04:00 97.8 81 20 145/74 96 09/01/17 01:46 82 20 99 Nasal Cannula 3.0 32 09/01/17 01:36 72 20 98 Nasal Cannula 3.0 09/01/17 00:00 Nasal Cannula 3.0 09/01/17 00:00 98.5 73 20 148/69 96 08/31/17 20:23 88 20 99 Nasal Cannula 3.0 32 08/31/17 20:04 Nasal Cannula 3.0 32 08/31/17 20:04 93 Nasal Cannula 3.0 32 08/31/17 20:04 68 24 93 Nasal Cannula 3.0 08/31/17 20:00 98.7 65 20 136/63 93 08/31/17 20:00 Nasal Cannula 3.0 08/31/17 16:00 96.8 74 20 136/66 90 08/31/17 14:03 86 20 99 Nasal Cannula 3.0 32 08/31/17 13:53 86 24 87 Nasal Cannula 3.0 Intake and Output 08/31/17 09/01/17 19:00 07:00 Intake Total 740 ml Output Total 1700 ml 2550 ml Balance -960 ml -2550 ml Intake Oral 740 ml Output Urine Total 1700 ml 2550 ml Objective HEENT: atraumatic Lungs: chest wall tender Heart: HR/BP unstable, regular Abdomen: non-tender, active bowel sounds, Extremities: edema Laboratory Tests 09/01/17 06:30: Sodium Level 144, Potassium Level 4.3, Chloride Level 104, Carbon Dioxide Level 40H, Anion Gap 0L, Blood Urea Nitrogen 14, Creatinine 1.0, Estimat Glomerular Filtration Rate > 60, Glucose Level 115H, Calcium Level 9.0, Total Bilirubin 0.4 , Aspartate Amino Transf (AST/SGOT) 26, Alanine Aminotransferase (ALT/SGPT) 138H , Alkaline Phosphatase 68, Total Protein 7.0, Albumin 2.2L, Globulin 4.8, Albumin/Globulin Ratio 0.5L Current Medications Medications (Trade) Dose Ordered Sig/Felipe Route PRN Reason Start Time Stop Time Status Last Admin Dose Admin Acetaminophen (Tylenol) 650 mg Q6H PRN NG Mild Pain/Temp > 100.1 08/29/17 11:00 09/27/17 10:59 09/01/17 05:30 Acetylcysteine (Mucomyst) 200 mg Q6HRT HHN 08/31/17 13:00 09/30/17 08:59 09/01/17 08:46 Albuterol/ Ipratropium (Albuterol/ Ipratropium) 3 ml Q4H PRN HHN Shortness of Breath 08/30/17 15:00 09/02/17 14:59 09/01/17 08:46 Allopurinol (Allopurinol) 300 mg DAILY NG 08/30/17 11:00 09/25/17 10:59 09/01/17 09:27 Aspirin (ASA) 81 mg DAILY GT 08/30/17 09:00 09/19/17 08:59 09/01/17 09:27 Atorvastatin Calcium (Lipitor) 20 mg BEDTIME GT 08/29/17 21:00 09/21/17 20:59 08/31/17 21:23 Dextrose (Dextrose 50%) STAT PRN IV Hypoglycemia 08/29/17 10:30 09/27/17 10:29 Digoxin (Lanoxin) 0.25 mg DAILY ORAL 09/01/17 09:00 10/01/17 08:59 Epoetin Dario (Procrit (for ESRD on dialysis)) 10,000 units MON-WED-THU SUBQ 08/31/17 21:00 09/20/17 20:59 08/31/17 21:24 Ferrous Sulfate (Feosol) 325 mg THREE TIMES A DAY ORAL 09/01/17 09:00 10/01/17 08:59 09/01/17 10:51 Guaifenesin (Mucinex ER) 1,200 mg TWICE A DAY ORAL 08/29/17 18:00 09/27/17 17:59 09/01/17 09:27 Guaifenesin (Robitussin) 200 mg Q4H PRN ORAL For Cough 08/29/17 11:00 09/27/17 18:59 Heparin Sodium (Porcine) (Heparin 5000 units/ml) 5,000 units EVERY 12 HOURS SUBQ 08/29/17 21:00 09/21/17 20:59 09/01/17 09:35 Insulin Aspart (NovoLOG) BEFORE MEALS AND HS SUBQ 08/29/17 11:30 09/18/17 12:29 09/01/17 11:45 Metoprolol Tartrate (Lopressor) 12.5 mg DAILY GT 08/30/17 09:00 09/23/17 20:59 08/31/17 09:11 Nitroglycerin (Ntg) 0.4 mg Q5MIN X 3 DOSES PRN SL Prn Chest Pain 08/29/17 10:30 09/18/17 10:29 Ondansetron HCl (Zofran) 4 mg Q6H PRN IVP Nausea & Vomiting 08/29/17 10:30 09/18/17 10:29 Pantoprazole (Protonix) 40 mg DAILY IV 08/30/17 09:00 09/19/17 08:59 08/30/17 08:56 Polyethylene Glycol (Miralax) 17 gm DAILYPRN PRN GT Constipation 08/29/17 10:30 09/27/17 10:29 DOMONIQUE DOBBS Sep 01, 2017 12:10
[2017-09-01] MEDS ORDERED: Tubing IV Secondary IV ONE (13:53)
--- NOTE | 2017-09-01 15:40 | GI Progress Note ---
Assessment/Plan Problems: (1) Shock liver ICD Codes: K72.00 - Acute and subacute hepatic failure without coma SNOMED: 034363852 (2) Anemia ICD Codes: D64.9 - Anemia, unspecified SNOMED: 985303760 (3) Morbid obesity ICD Codes: E66.01 - Morbid (severe) obesity due to excess calories SNOMED: 279833754, 39732709420235 (4) Multiple organ failure SNOMED: 31191448 (5) Transaminitis ICD Codes: R74.0 - Nonspecific elevation of levels of transaminase and lactic acid dehydrogenase [LDH] SNOMED: 122247602, 946417170 (6) Septic shock ICD Codes: A41.9 - Sepsis, unspecified organism; R65.21 - Severe sepsis with septic shock SNOMED: 89959889 (7) DM2 (diabetes mellitus, type 2) ICD Codes: E11.9 - Type 2 diabetes mellitus without complications SNOMED: 52863410 (8) GERD (gastroesophageal reflux disease) ICD Codes: K21.9 - Gastro-esophageal reflux disease without esophagitis SNOMED: 594512359 Status: doing well, stable Status Narrative Discussed with Dr. Cordero. Assessment/Plan transaminitis due to shock liver >> no normal h/o hep B exposure but no active DZ iron deficiency >> venofer monitor H&H check stool ob fu LFTS AFP on regular diet fu labs dc planning Subjective Gastrointestinal/Abdominal: Reports: no symptoms Objective Last 24 Hour Vital Signs Date Time Temp Pulse Resp B/P (MAP) Pulse Ox O2 Delivery O2 Flow Rate FiO2 09/01/17 11:33 97.9 60 21 159/71 99 09/01/17 09:33 59 09/01/17 09:33 59 110/69 09/01/17 09:26 59 110/69 09/01/17 08:22 97.6 63 20 150/71 100 09/01/17 06:00 97.8 09/01/17 04:00 97.8 81 20 145/74 96 09/01/17 01:46 82 20 99 Nasal Cannula 3.0 32 09/01/17 01:36 72 20 98 Nasal Cannula 3.0 09/01/17 00:00 Nasal Cannula 3.0 09/01/17 00:00 98.5 73 20 148/69 96 08/31/17 20:23 88 20 99 Nasal Cannula 3.0 32 08/31/17 20:04 Nasal Cannula 3.0 32 08/31/17 20:04 93 Nasal Cannula 3.0 32 08/31/17 20:04 68 24 93 Nasal Cannula 3.0 08/31/17 20:00 98.7 65 20 136/63 93 08/31/17 20:00 Nasal Cannula 3.0 08/31/17 16:00 96.8 74 20 136/66 90 Intake and Output 08/31/17 09/01/17 19:00 07:00 Intake Total 740 ml Output Total 1700 ml 2550 ml Balance -960 ml -2550 ml Intake Oral 740 ml Output Urine Total 1700 ml 2550 ml Laboratory Tests Test 09/01/17 06:30 Sodium Level 144 MMOL/L (136-145) Potassium Level 4.3 MMOL/L (3.5-5.1) Chloride Level 104 MMOL/L (98-107) Carbon Dioxide Level 40 MMOL/L (21-32) H Anion Gap 0 mmol/L (5-15) L Blood Urea Nitrogen 14 mg/dL (7-18) Creatinine 1.0 MG/DL (0.55-1.30) Estimat Glomerular Filtration Rate > 60 mL/min (>60) Glucose Level 115 MG/DL (74-106) H Calcium Level 9.0 MG/DL (8.5-10.1) Total Bilirubin 0.4 MG/DL (0.2-1.0) Aspartate Amino Transf (AST/SGOT) 26 U/L (15-37) Alanine Aminotransferase (ALT/SGPT) 138 U/L (12-78) H Alkaline Phosphatase 68 U/L (46-116) Total Protein 7.0 G/DL (6.4-8.2) Albumin 2.2 G/DL (3.4-5.0) L Globulin 4.8 g/dL Albumin/Globulin Ratio 0.5 (1.0-2.7) L Height (Feet): 5 Height (Inches): 3.00 Weight (Pounds): 484 General Appearance: WD/WN, no apparent distress, alert, morbidly obese Cardiovascular: normal rate Respiratory/Chest: normal breath sounds, no respiratory distress Abdominal Exam: normal bowel sounds, non tender, soft Extremities: non-tender Nixon,Caren Shaka N.P. Sep 01, 2017 15:40
--- NOTE | 2017-09-04 11:39 | Diagnostic Imaging Report ---
APPROVED REPORT CPT Code: 18774 Present Symptoms Lower Extremity Edema: Bilateral Shortness of breath Technically difficult, limited study due to pt body habitus, vessel depth (mid-distal thigh). BILATERAL LOWER EXTREMITY VENOUS DUPLEX: Imaging reveals a patent deep venous system bilaterally. There is no evidence of thrombus within the femoral, popliteal or tibial segments. The greater saphenous veins are also within normal limits. Doppler indicates normal spontaneous flow within these segments. The distal left superficical femoral vein was not visualized.
== END 2017-09-01 13:54 | DRG 870 ==
LOC: EDBD 07:23 → EMR 07:52 → ICU 07:55 → EDBEDREQSVC 10:10 → EDBEDREQ 10:10 → 2W 08-28 14:40 → ICU 08-28 14:40 → 2W 08-29 09:12 → 4E 08-29 09:12 → UNDODISIN 09-01 13:54
PROC: 05HM33Z Insertion of Infusion Device into Right Internal Jugular Vein, Percutaneous Approach (ICD-10-PCS; principal; 2017-08-19)
PROC: 5A1955Z Respiratory Ventilation, Greater than 96 Consecutive Hours (ICD-10-PCS; principal; 2017-08-19)
PROC: 5A1D70Z Performance of Urinary Filtration, Intermittent, Less than 6 Hours Per Day (ICD-10-PCS; principal; 2017-08-19)
PROC: 0BH17EZ Insertion of Endotracheal Airway into Trachea, Via Natural or Artificial Opening (ICD-10-PCS; principal; 2017-08-19)
PROC: 03HY32Z Insertion of Monitoring Device into Upper Artery, Percutaneous Approach (ICD-10-PCS; 2017-08-20)
DX: A41.9 Sepsis, unspecified organism (principal); I21.4 Non-ST elevation (NSTEMI) myocardial infarction; J96.01 Acute respiratory failure with hypoxia; J96.02 Acute respiratory failure with hypercapnia; R65.21 Severe sepsis with septic shock; G93.41 Metabolic encephalopathy; K72.00 Acute and subacute hepatic failure without coma; N17.9 Acute kidney failure, unspecified; Z68.45 Body mass index [BMI] 70 or greater, adult; E87.2 Acidosis; I47.1 Supraventricular tachycardia; J45.909 Unspecified asthma, uncomplicated; E11.9 Type 2 diabetes mellitus without complications; Z79.4 Long term (current) use of insulin; Z79.84 Long term (current) use of oral hypoglycemic drugs; E87.5 Hyperkalemia; E66.01 Morbid (severe) obesity due to excess calories; K21.9 Gastro-esophageal reflux disease without esophagitis; K76.0 Fatty (change of) liver, not elsewhere classified; Z20.5 Contact with and (suspected) exposure to viral hepatitis
CPT/HCPCS: 31500; 36415; 36569; 36600; 71045; 74018; 76700; 76937; 80053; 80061; 80162; 80202; 80329; 81003; 82105; 82164; 82248; 82378; 82550; 82553; 82607; 82728; 82746; 82803; 82962; 83036; 83540; 83550; 83605; 83735; 83880; 83930; 84100; 84132; 84439; 84443; 84478; 84484; 84550; 85007; 85025; 85044; 85610; 85730; 86140; 86704; 86705; 86709; 86710; 86738; 86803; 87040; 87070; 87081; 87205; 87340; 87517; 93005; 93306; 93970; 94002; 94003; 94640; 94660; 94760; J1815; J7620; J8499

== ENCOUNTER 2017-09-04 06:28 | Inpatient (IN) | payer MEDICARE, MEDICAID ==
[~2017-09-04] VITALS: Ht 167.6 cm; Wt 197.3 kg
[~2017-09-04 06:28] MED LIST: ACETYLCYST100 MG/1 M HHN; ACIDOPHILUS1 EAC6 PO; ALBUTEROL2.5 MG/3 M INH; ALLOPURINOL100 M1 NG; ASPIRIN81 MG GT; AZELASTINE HCL6 ML OP; BIOTENE1000 ML MM; CAPSAICIN42.5 GM TP; CATAPRES0.1 MG ORAL; COMPAZINE10 MG ORAL; DOCUSIL100 M1 ORAL; DUONEB 0.5-3(2.53 ML HHN; FEOSOL325 MG ORAL; FLONASE ALLERG9.9 ML NS; GABAPENTIN600 MG ORAL; GLIPIZIDE XL10 M1 ORAL; GUAIFENESI100 MG/5 M ORAL; HUMULIN R100 UNIT/1 SUBQ; IPRATROPIU0.2 MG/1 M HHN; JANUVIA25 MG ORAL; LANOXIN250 MCG ORAL; LANTUS SOL100 UNIT/1 SUBQ; LIDOCAINE VISC100 ML ORAL; LIPITOR20 MG GT; LOMOTIL TABLET1 EACH ORAL; LOPRESSOR25 M1 PO; LORATADINE10 M3 PO; MUCINEX600 MG ORAL; NUTRISOURCE FI1 EACH PO; NUTRISOURCE FI205 GM PO; PHENERGAN SUPP25 MG RECTAL; PROTONIX40 MG ORAL; TYLENOL EXTRA500 MG ORAL; VITAMIN B122500 MCG PO; ZANTAC150 MG ORAL
[2017-09-04] MEDS ORDERED: COMPAZINE10 MG ORAL (06:47)
--- NOTE | 2017-09-04 07:01 | Emergency Room Report ---
History of Present Illness General Chief Complaint: Dyspnea/Respdistress Source: Patient, Medical Record Present Illness HPI 57-year-old female presents ED. patient comes from [facility] complaining of cough and shortness of breath. Patient states she was recently here for a pneumonia. States that once discharged her cough and shortness of breath have persisted. States cough is productive with yellowish phlegm. Is on home oxygen. Denies chest pain. This fevers or chills. No aggravating relieving factors. Denies any other associated symptoms Allergies: Coded Allergies: No Known Allergies (Unverified , 06/01/17) Patient History Past Medical History: DM Past Surgical History: none Pertinent Family History: none Social History: Denies: smoking, alcohol use, drug use Last Menstrual Period: NA Now: No Immunizations: UTD Reviewed Nursing Documentation: PMH: Agreed, PSxH: Agreed Nursing Documentation-PMH Hx Diabetes: Yes Hx Cancer: No Hx Gastrointestinal Problems: Yes Hx Neurological Problems: No Review of Systems All Other Systems: negative except mentioned in HPI Physical Exam Vital Signs Date Time Temp Pulse Resp B/P (MAP) Pulse Ox O2 Delivery O2 Flow Rate FiO2 09/04/17 06:24 80 20 154/86 90 Nasal Cannula 2.0 General Appearance: no apparent distress, obese Head: normocephalic Eyes: bilateral eye normal inspection, bilateral eye PERRL ENT: normal ENT inspection Neck: normal inspection Respiratory: chest non-tender, lungs clear, normal breath sounds, speaking full sentences Cardiovascular #1: regular rate, rhythm, no edema Gastrointestinal: normal inspection Rectal: deferred Genitourinary: no CVA tenderness Musculoskeletal: normal inspection Neurologic: alert, oriented x3, responsive, motor strength/tone normal, sensory intact, speech normal Psychiatric: normal inspection Skin: normal inspection Lymphatic: normal inspection Procedures Critical Care Time Critical Care Time i. I feel this is a highly complex case requiring extensive working including EKG/Rhythm strip, Xray/CT/US, Blood/urine lab work, repeat exams while in ED, and administration of strong opiates/narcotics for pain control, admission to hospital or close patient follow up. Total time: 30 min bedside evaluation and treatment excludes procedures (EKG). Reason for critical care: Shortness of breath, hypoxic Possible complications: hypotension, hypertension, ND, shock, arrhythmias, metabolic acidosis, end organ damage, respiratory failure. Interventions: Labs, IV fluids, EKG, chest x-ray, nebulizer treatment, steroids , ABG, antibiotics, BiPAP Course: She presenting with shortness of breath. Chest x-ray shows cardiomegaly with interstitial congestion. Given breathing treatments with O2 sats mildly improved. ABG shows hypercapnia PCO2 98.4. Patient placed on BiPAP. Antibiotics given. Steroids given. Consultations: nursing staff, EMS, family Performed by: Dr Lujan Tolerated well condition = critical j. because of unstable vital signs this patient had a condition that could potentially threaten life or limb. I feel this is a critical patient who required my full attention while patient was considered critical. Total Critical Care Time excluding procedures was greater than 35 minutes Medical Decision Making Diagnostic Impression: Primary Impression: Hypercapnia Additional Impression: Morbid obesity ER Course Hospital Course 57-year-old female presents ED complaining of shortness of breath, cough Differential diagnoses include: ND/unstable angina, CHF, COPD Clinical course Patient placed on stretcher. on court monitor. After initial history and physical I ordered labs, EKG, CXR, nebs, steroids labs reviewed- no leukocytosis, hemoglobin/hematocrit stable, electrolytes ok, troponins negative, BNP elevated EKG - NSR, no acute ischemic changes interpreted by me Chest x-ray- cardiomegaly, interstitial congestion O2 sats improved mildly after breathing treatments. ABG shows hypercapnia with a PCO2 of 98.4. She is alert and oriented. Patient started on BiPAP. Given antibiotics. Case discussed with Dr. Edmond and he agreed to accept the patient to his service for further care and support I. I feel this is a highly complex case requiring extensive working including EKG/Rhythm strip, Xray/CT/US, Blood/urine lab work, repeat exams while in ED, and administration of strong opiates/narcotics for pain control, admission to hospital or close patient follow up. Diagnosis - hypercapnia, morbid obesity admitted to [facility] in serious condition Labs Test 09/04/17 06:40 09/04/17 07:15 09/04/17 08:30 White Blood Count 9.8 K/UL (4.8-10.8) Red Blood Count 3.98 M/UL (4.20-5.40) Hemoglobin 9.2 G/DL (12.0-16.0) Hematocrit 33.0 % (37.0-47.0) Mean Corpuscular Volume 83 FL (80-99) Mean Corpuscular Hemoglobin 23.0 PG (27.0-31.0) Mean Corpuscular Hemoglobin Concent 27.8 G/DL (32.0-36.0) Red Cell Distribution Width 21.8 % (11.6-14.8) Platelet Count 391 K/UL (150-450) Mean Platelet Volume 6.2 FL (6.5-10.1) Neutrophils (%) (Auto) 53.1 % (45.0-75.0) Lymphocytes (%) (Auto) 35.0 % (20.0-45.0) Monocytes (%) (Auto) 9.0 % (1.0-10.0) Eosinophils (%) (Auto) 2.0 % (0.0-3.0) Basophils (%) (Auto) 0.9 % (0.0-2.0) Sodium Level 142 MMOL/L (136-145) Potassium Level 4.3 MMOL/L (3.5-5.1) Chloride Level 102 MMOL/L (98-107) Carbon Dioxide Level 41 MMOL/L (21-32) Anion Gap 0 mmol/L (5-15) Blood Urea Nitrogen 9 mg/dL (7-18) Creatinine 0.9 MG/DL (0.55-1.30) Estimat Glomerular Filtration Rate > 60 mL/min (>60) Glucose Level 126 MG/DL (74-106) Calcium Level 8.9 MG/DL (8.5-10.1) Total Bilirubin 0.4 MG/DL (0.2-1.0) Aspartate Amino Transf (AST/SGOT) 33 U/L (15-37) Alanine Aminotransferase (ALT/SGPT) 99 U/L (12-78) Alkaline Phosphatase 78 U/L (46-116) Total Creatine Kinase 57 U/L (26-308) Creatine Kinase MB 1.1 NG/ML (0.0-3.6) Creatine Kinase MB Relative Index 1.9 Troponin I 0.044 ng/mL (0.000-0.056) Pro-B-Type Natriuretic Peptide 2360 pg/mL (0-125) Total Protein 7.7 G/DL (6.4-8.2) Albumin 2.5 G/DL (3.4-5.0) Globulin 5.2 g/dL Albumin/Globulin Ratio 0.5 (1.0-2.7) Urine Color Pale yellow Urine Appearance Clear Urine pH 6 (4.5-8.0) Urine Specific [place] 1.010 (1.005-1.035) Urine Protein Negative (NEGATIVE) Urine Glucose (UA) Negative (NEGATIVE) Urine Ketones Negative (NEGATIVE) Urine Occult Blood 2+ (NEGATIVE) Urine Nitrite Negative (NEGATIVE) Urine Bilirubin Negative (NEGATIVE) Urine Urobilinogen Normal MG/DL (0.0-1.0) Urine Leukocyte Esterase Negative (NEGATIVE) Urine RBC 2-4 /HPF (0 - 2) Urine WBC 0-2 /HPF (0 - 2) Urine Squamous Epithelial Cells Few /LPF (NONE/OCC) Urine Bacteria Occasional /HPF (NONE) Arterial Blood pH 7.270 (7.350-7.450) Arterial Blood Partial Pressure CO2 98.4 mmHg (35.0-45.0) Arterial Blood Partial Pressure O2 133.7 mmHg (75.0-100.0) Arterial Blood HCO3 44.2 mmol/L (22.0-26.0) Arterial Blood Oxygen Saturation 98.4 % (92.0-98.0) Arterial Blood Base Excess 14.3 Doroteo Test Positive EKG Diagnostic Results Rate: normal Rhythm: NSR ST Segments: no acute changes ASA given to the pt in ED: No Rhythm Strip Diag. Results EP Interpretation: yes Rhythm: NSR, no PVC's, no ectopy Chest X-Ray Diagnostic Results Chest X-Ray Diagnostic Results : Chest X-Ray Ordered: Yes # of Views/Limited/Complete: 1 View Indication: Shortness of Breath EP Interpretation: Yes Interpretation: no pneumothorax, other - cardiomegaly, interstitial congestion\ Impression: Other - chf Electronically Signed by: Electronically signed by Moreno Lujan MD Last Vital Signs Date Time Temp Pulse Resp B/P (MAP) Pulse Ox O2 Delivery O2 Flow Rate FiO2 09/04/17 06:30 80 20 Nasal Cannula 2.0 09/04/17 06:24 154/86 90 Status: improved Disposition: ADMITTED INPATIENT Condition: Serious MORENO LUJAN M.D. Sep 04, 2017 07:01
[2017-09-04 07:12] LABS: BASOPHILS % (AUTO) 0.9 % (0.0-2.0); HEMOGLOBIN 9.2 G/DL (12.0-16.0); MEAN CORPUSCULAR VOLUME 83 FL (80-99); NEUTROPHILS % (AUTO) 53.1 % (45.0-75.0); PLATELET COUNT 391 K/UL (150-450); RED BLOOD COUNT 3.98 M/UL (4.20-5.40); RED CELL DISTRIBUTION WIDTH 21.8 % (11.6-14.8); WHITE BLOOD COUNT 9.8 K/UL (4.8-10.8)
[2017-09-04 07:21] VITALS: BP 140/67
[2017-09-04 07:25] LABS: BLOOD UREA NITROGEN 9 mg/dL (7-18); CALCIUM 8.9 MG/DL (8.5-10.1); CHLORIDE 102 MMOL/L (98-107); CREATININE 0.9 MG/DL (0.55-1.30); POTASSIUM 4.3 MMOL/L (3.5-5.1); SODIUM 142 MMOL/L (136-145)
[2017-09-04 07:35] LABS: APPEARANCE,URINE CLEAR; BILIRUBIN, URINE NEGATIVE (NEGATIVE); COLOR,URINE PALE YELLOW; GLUCOSE, URINE (UA) NEGATIVE (NEGATIVE); KETONES,URINE NEGATIVE (NEGATIVE); LEUKOCYTE ESTERASE ,URINE NEGATIVE (NEGATIVE); NITRITE,URINE NEGATIVE (NEGATIVE); PH,URINE 6 (4.5-8.0); PROTEIN,URINE NEGATIVE (NEGATIVE); UROBILINOGEN,URINE NORMAL MG/DL (0.0-1.0)
[2017-09-04 07:40] LABS: ALANINE AMINOTRANSFERASE 99 U/L (12-78); ALBUMIN 2.5 G/DL (3.4-5.0); ALBUMIN/GLOBULIN RATIO 0.5 (1.0-2.7); ALKALINE PHOSPHATASE 78 U/L (46-116); ASPARTATE AMINO TRANSFERASE 33 U/L (15-37); BILIRUBIN,TOTAL 0.4 MG/DL (0.2-1.0); CKMB 1.1 NG/ML (0.0-3.6); CREATINE KINASE 57 U/L (26-308)
[2017-09-04 07:45] LABS: ANION GAP 0 mmol/L (5-15); CARBON DIOXIDE 41 MMOL/L (21-32)
[2017-09-04] MEDS ORDERED: Ipratropium 0.02% Inh Soln 2.5ml UD HHN ONE (08:00)
[2017-09-04] MEDS ORDERED: Albuterol ud Inhalation HHN ONE (08:00)
[2017-09-04] MEDS ORDERED: Solu-MEDROL 125mg Inj IVP ONE (08:00)
[2017-09-04] MEDS ORDERED: Acetaminophen 500mg (ES) tab ORAL ONE (08:45)
[2017-09-04 08:53] VITALS: BP 117/49
[2017-09-04 09:25] VITALS: BP 129/61
--- NOTE | 2017-09-04 09:38 | Diagnostic Imaging Report ---
Indication: Shortness of breath Technique: One view of the chest Comparison: 08/31/2017 Findings: Body habitus limits evaluation. There is equivocal minimal interstitial congestion, decreased from the previous study. The heart is enlarged Impression: Cardiomegaly Borderline Interstitial congestion, improved since 08/31/2017
[2017-09-04] MEDS ORDERED: Miralax 17gm pkt ORAL PRN (10:30)
[2017-09-04] MEDS ORDERED: Albuterol/Ipratropium 3ml neb HHN PRN (10:30)
--- NOTE | 2017-09-04 10:38 | Consultation ---
History of Present Illness General Date patient seen: Sep 04, 2017 Chief Complaint: Dyspnea/Respdistress Present Illness HPI 57-year-old female with recent history of respiratory faiure and septic shock at [place], was discharged a few days to assisted, presented to ED complaining of cough and shortness of breath. Stated that once discharged her cough and shortness of breath have persisted. Her cough is productive with yellowish phlegm. She was in respiratory failure in [place] and was put on BIPAP and transferred to [facility] Allergies: Coded Allergies: No Known Allergies (Unverified , 06/01/17) Medication History Scheduled Allopurinol* (Allopurinol*), 300 MG NG DAILY Aspirin* (Aspirin*), 81 MG GT DAILY Atorvastatin Calcium* (Lipitor*), 20 MG GT BEDTIME Clonidine Hcl* (Catapres*), 0.1 MG ORAL EVERY 6 HOURS, (Reported) Digoxin* (Lanoxin*), 0.25 MG ORAL DAILY Docusate Sodium* (Docusil*), 100 MG ORAL TWICE A DAY, (Reported) Ferrous Sulfate (Feosol), 325 MG ORAL THREE TIMES A DAY Gabapentin* (Gabapentin*), 600 MG ORAL QHS, (Reported) Glipizide (Glipizide Xl), 10 MG ORAL DAILY, (Reported) Guaifenesin (Mucinex), 1,200 MG ORAL TWICE A DAY Insulin Glargine (Lantus), 21 SUBQ BID, (Reported) Ipratropium/Albuterol Sulfate (DuoNeb 0.5-3(2.5)mg/3ml), 3 ML HHN Q6HR Lactobacillus Acidophilus (Acidophilus), 1 EACH PO BID, (Reported) Metoprolol Tartrate (Metoprolol Tartrate), 12.5 MG PO BID Pantoprazole* (Protonix*), 40 MG ORAL DAILY, (Reported) Scheduled PRN Acetaminophen* (Tylenol Extra Strength*), 500 MG ORAL Q12HR PRN for Mild Pain/ Temp > 100.5, (Reported) Albuterol Sulfate* (Albuterol Sulfate Hhn*), 3 ML INH Q4H PRN for Shortness of Breath, (Reported) Diphenoxylate Hcl/Atropine (Lomotil Tablet), 2 TAB ORAL for Diarrhea, (Reported) Guaifenesin* (Guaifenesin), 200 MG ORAL Q4H PRN Prochlorperazine (Compazine*), 10 MG ORAL Q8HR PRN for Nausea & Vomiting, ( Reported) Miscellaneous Medications Azelastine Hcl (Azelastine Hcl), 6 ML OP, (Reported) Capsaicin (Capsaicin), 42.5 GM TP, (Reported) Cyanocobalamin (Vitamin B-12) (Vitamin B12), 2,500 MCG PO, (Reported) Fluticasone Propionate (Flonase Allergy Relief), 9.9 ML NS, (Reported) Guar Gum (Nutrisource Fiber), 1 EACH PO, (Reported) Insulin Regular, Human (Humulin R), 0 SUBQ, (Reported) Loratadine (Loratadine), 10 MG PO, (Reported) Discontinued Medications Acetylcysteine* (Acetylcysteine*), 200 MG HHN Q6HRT Discontinued Reason: Pt stopped taking med Guar Gum (Nutrisource Fiber), 205 GM PO, (Reported) Discontinued Reason: Pt stopped taking med Ipratropium [place] 0.5MG/2.5ML (Ipratropium [place] 0.5MG/2.5ML), 0.5 MG HHN Q6H PRN for Shortness of Breath, (Reported) Discontinued Reason: Medication dose changed Lidocaine HCl 2% Viscous (Lidocaine HCl 2% Viscous), 15 ML ORAL QID, (Reported) Discontinued Reason: Pt stopped taking med Prochlorperazine (Compazine*), 10 MG ORAL Q8HR PRN for Nausea & Vomiting, ( Reported) Discontinued Reason: Pt stopped taking med Promethazine HCl (Promethegan), 25 MG RECTAL Q6H PRN for Nausea & Vomiting, ( Reported) Discontinued Reason: Pt stopped taking med Ranitidine Hcl* (Zantac*), 150 MG ORAL TWICE A DAY, (Reported) Discontinued Reason: Pt stopped taking med Saliva Substitution Combo No.9 (Biotene), 1,000 ML MM, (Reported) Discontinued Reason: Pt stopped taking med Sitagliptin* (Januvia*), 100 MG ORAL DAILY, (Reported) Discontinued Reason: Pt stopped taking med Patient History Healthcare decision maker Resuscitation status Advanced Directive on File Past Medical/Surgical History Past Medical/Surgical History: (1) Morbid obesity (2) Hepatitis B core antibody positive (3) Fatty liver Review of Systems All Other Systems: negative except mentioned in HPI Physical Exam General Appearance: WD/WN, morbidly obese Lines, tubes and drains: peripheral HEENT: normocephalic, atraumatic Neck: non-tender, normal alignment Respiratory/Chest: chest wall non-tender, lungs clear Breasts: no masses Cardiovascular/Chest: normal peripheral pulses Abdomen: normal bowel sounds, hyperactive bowel sounds Genitourinary/Rectal: normal rectal exam Extremities: normal range of motion, severe edema Skin Exam: normal pigmentation Last 24 Hour Vital Signs Date Time Temp Pulse Resp B/P (MAP) Pulse Ox O2 Delivery O2 Flow Rate FiO2 09/04/17 09:55 97.2 73 24 129/61 97 4.0 45 09/04/17 09:26 45 09/04/17 09:26 60 24 97 Facial 45 09/04/17 09:25 97.2 73 25 129/61 98 Bi-pap 45 09/04/17 09:24 97.2 09/04/17 08:53 97.2 79 27 117/49 97 Nasal Cannula 4.0 36 09/04/17 08:26 80 18 100 Nasal Cannula 4.0 36 09/04/17 08:14 72 18 92 Nasal Cannula 4.0 36 09/04/17 08:11 72 20 Nasal Cannula 4.0 36 09/04/17 07:21 97.2 65 23 140/67 98 Nasal Cannula 4.0 09/04/17 06:30 80 20 Nasal Cannula 2.0 09/04/17 06:24 80 20 154/86 90 Nasal Cannula 2.0 Laboratory Tests Test 09/04/17 06:40 09/04/17 07:15 09/04/17 08:30 White Blood Count 9.8 K/UL (4.8-10.8) Red Blood Count 3.98 M/UL (4.20-5.40) L Hemoglobin 9.2 G/DL (12.0-16.0) L Hematocrit 33.0 % (37.0-47.0) L Mean Corpuscular Volume 83 FL (80-99) Mean Corpuscular Hemoglobin 23.0 PG (27.0-31.0) L Mean Corpuscular Hemoglobin Concent 27.8 G/DL (32.0-36.0) L Red Cell Distribution Width 21.8 % (11.6-14.8) H Platelet Count 391 K/UL (150-450) Mean Platelet Volume 6.2 FL (6.5-10.1) L Neutrophils (%) (Auto) 53.1 % (45.0-75.0) Lymphocytes (%) (Auto) 35.0 % (20.0-45.0) Monocytes (%) (Auto) 9.0 % (1.0-10.0) Eosinophils (%) (Auto) 2.0 % (0.0-3.0) Basophils (%) (Auto) 0.9 % (0.0-2.0) Sodium Level 142 MMOL/L (136-145) Potassium Level 4.3 MMOL/L (3.5-5.1) Chloride Level 102 MMOL/L (98-107) Carbon Dioxide Level 41 MMOL/L (21-32) *H Anion Gap 0 mmol/L (5-15) L Blood Urea Nitrogen 9 mg/dL (7-18) Creatinine 0.9 MG/DL (0.55-1.30) Estimat Glomerular Filtration Rate > 60 mL/min (>60) Glucose Level 126 MG/DL (74-106) H Calcium Level 8.9 MG/DL (8.5-10.1) Total Bilirubin 0.4 MG/DL (0.2-1.0) Aspartate Amino Transf (AST/SGOT) 33 U/L (15-37) Alanine Aminotransferase (ALT/SGPT) 99 U/L (12-78) H Alkaline Phosphatase 78 U/L (46-116) Total Creatine Kinase 57 U/L (26-308) Creatine Kinase MB 1.1 NG/ML (0.0-3.6) Creatine Kinase MB Relative Index 1.9 Troponin I 0.044 ng/mL (0.000-0.056) Pro-B-Type Natriuretic Peptide 2360 pg/mL (0-125) H Total Protein 7.7 G/DL (6.4-8.2) Albumin 2.5 G/DL (3.4-5.0) L Globulin 5.2 g/dL Albumin/Globulin Ratio 0.5 (1.0-2.7) L Urine Color Pale yellow Urine Appearance Clear Urine pH 6 (4.5-8.0) Urine Specific [place] 1.010 (1.005-1.035) Urine Protein Negative (NEGATIVE) Urine Glucose (UA) Negative (NEGATIVE) Urine Ketones Negative (NEGATIVE) Urine Occult Blood 2+ (NEGATIVE) H Urine Nitrite Negative (NEGATIVE) Urine Bilirubin Negative (NEGATIVE) Urine Urobilinogen Normal MG/DL (0.0-1.0) Urine Leukocyte Esterase Negative (NEGATIVE) Urine RBC 2-4 /HPF (0 - 2) H Urine WBC 0-2 /HPF (0 - 2) Urine Squamous Epithelial Cells Few /LPF (NONE/OCC) Urine Bacteria Occasional /HPF (NONE) Arterial Blood pH 7.270 (7.350-7.450) Arterial Blood Partial Pressure CO2 98.4 mmHg (35.0-45.0) *H Arterial Blood Partial Pressure O2 133.7 mmHg (75.0-100.0) H Arterial Blood HCO3 44.2 mmol/L (22.0-26.0) H Arterial Blood Oxygen Saturation 98.4 % (92.0-98.0) H Arterial Blood Base Excess 14.3 Doroteo Test Positive Microbiology Date/Time Source Procedure Growth Status 09/04/17 06:50 Nasal Nares Influenza Types A,B Antigen (ZECHARIAH) - Final Complete Height (Feet): 5 Height (Inches): 6.00 Weight (Pounds): 430 Medications Current Medications Medications (Trade) Dose Ordered Sig/Felipe Route PRN Reason Start Time Stop Time Status Last Admin Dose Admin Acetaminophen (Tylenol) 650 mg Q4H PRN ORAL Fever 09/04/17 10:30 10/04/17 10:29 UNV Albuterol/ Ipratropium (Albuterol/ Ipratropium) 3 ml EVERY 4 HOURS PRN HHN Shortness of Breath 09/04/17 10:30 09/09/17 10:29 UNV Allopurinol (Zyloprim) 300 mg DAILY NG 09/05/17 09:00 10/05/17 08:59 UNV Dextrose (Dextrose 50%) STAT PRN IV Hypoglycemia 09/04/17 10:30 10/04/17 10:29 UNV Digoxin (Lanoxin) 0.25 mg DAILY ORAL 09/05/17 09:00 10/05/17 08:59 UNV Furosemide (Lasix) 40 mg EVERY 8 HOURS STAT IV 09/04/17 10:19 09/04/17 10:20 UNV Heparin Sodium (Porcine) (Heparin 5000 units/ml) 5,000 units EVERY 12 HOURS SUBQ 09/04/17 21:00 10/04/17 20:59 UNV Ondansetron HCl (Zofran) 4 mg Q6H PRN IVP Nausea & Vomiting 09/04/17 10:30 10/04/17 10:29 UNV Ondansetron HCl (Zofran) 4 mg Q6H PRN IVP Nausea & Vomiting 09/04/17 10:30 10/04/17 10:29 UNV Polyethylene Glycol (Miralax) 17 gm DAILYPRN PRN ORAL Constipation 09/04/17 10:30 10/04/17 10:29 UNV Temazepam (Restoril) 15 mg HSPRN PRN ORAL Insomnia 09/04/17 10:30 09/11/17 10:29 UNV Assessment/Plan Problem List: (1) Acute respiratory failure with hypoxia and hypercapnia ICD Codes: J96.01 - Acute respiratory failure with hypoxia; J96.02 - Acute respiratory failure with hypercapnia SNOMED: 65450657, 91223558, [id number] (2) Hypercapnia ICD Codes: R06.89 - Other abnormalities of breathing SNOMED: 55186298 (3) Hepatitis B core antibody positive ICD Codes: R76.8 - Other specified abnormal immunological findings in serum SNOMED: 379626873 Assessment/Plan respiratory treatment diuretics check sputm dvt prophylaxis adjust cardiac meds check sputum might need abx DOMONIQUE DOBBS Sep 04, 2017 10:38
--- NOTE | 2017-09-04 11:55 | Infectious Diseases Prog Note ---
Assessment/Plan Assessment/Plan Full noted to follow: A) 1) uri/bronchitis, ? cap, ? hcap, chest x-ray with pvc, copd/asthma, bipap, influenza negative 2) pmh noted 3) allergies - negative P) 1) rocephin 2) check sputum culture, labs and chest x-ray 3) thank you Subjective Allergies: Coded Allergies: No Known Allergies (Unverified , 06/01/17) Objective Vital Signs Last 24 Hour Vital Signs Date Time Temp Pulse Resp B/P (MAP) Pulse Ox O2 Delivery O2 Flow Rate FiO2 09/04/17 11:01 59 24 99 Facial 45 09/04/17 09:55 97.2 73 24 129/61 97 4.0 45 09/04/17 09:26 45 09/04/17 09:26 60 24 97 Facial 45 09/04/17 09:25 97.2 73 25 129/61 98 Bi-pap 45 09/04/17 09:24 97.2 09/04/17 08:53 97.2 79 27 117/49 97 Nasal Cannula 4.0 36 09/04/17 08:26 80 18 100 Nasal Cannula 4.0 36 09/04/17 08:14 72 18 92 Nasal Cannula 4.0 36 09/04/17 08:11 72 20 Nasal Cannula 4.0 36 09/04/17 07:21 97.2 65 23 140/67 98 Nasal Cannula 4.0 09/04/17 06:30 80 20 Nasal Cannula 2.0 09/04/17 06:24 80 20 154/86 90 Nasal Cannula 2.0 Height (Feet): 5 Height (Inches): 6.00 Weight (Pounds): 430 Microbiology Date/Time Source Procedure Growth Status 09/04/17 06:50 Nasal Nares Influenza Types A,B Antigen (ZECHARIAH) - Final Complete Laboratory Tests Test 09/04/17 06:40 09/04/17 07:15 09/04/17 08:30 09/04/17 11:00 White Blood Count 9.8 K/UL (4.8-10.8) Red Blood Count 3.98 M/UL (4.20-5.40) L Hemoglobin 9.2 G/DL (12.0-16.0) L Hematocrit 33.0 % (37.0-47.0) L Mean Corpuscular Volume 83 FL (80-99) Mean Corpuscular Hemoglobin 23.0 PG (27.0-31.0) L Mean Corpuscular Hemoglobin Concent 27.8 G/DL (32.0-36.0) L Red Cell Distribution Width 21.8 % (11.6-14.8) H Platelet Count 391 K/UL (150-450) Mean Platelet Volume 6.2 FL (6.5-10.1) L Neutrophils (%) (Auto) 53.1 % (45.0-75.0) Lymphocytes (%) (Auto) 35.0 % (20.0-45.0) Monocytes (%) (Auto) 9.0 % (1.0-10.0) Eosinophils (%) (Auto) 2.0 % (0.0-3.0) Basophils (%) (Auto) 0.9 % (0.0-2.0) Sodium Level 142 MMOL/L (136-145) Potassium Level 4.3 MMOL/L (3.5-5.1) Chloride Level 102 MMOL/L (98-107) Carbon Dioxide Level 41 MMOL/L (21-32) *H Anion Gap 0 mmol/L (5-15) L Blood Urea Nitrogen 9 mg/dL (7-18) Creatinine 0.9 MG/DL (0.55-1.30) Estimat Glomerular Filtration Rate > 60 mL/min (>60) Glucose Level 126 MG/DL (74-106) H Calcium Level 8.9 MG/DL (8.5-10.1) Total Bilirubin 0.4 MG/DL (0.2-1.0) Aspartate Amino Transf (AST/SGOT) 33 U/L (15-37) Alanine Aminotransferase (ALT/SGPT) 99 U/L (12-78) H Alkaline Phosphatase 78 U/L (46-116) Total Creatine Kinase 57 U/L (26-308) Creatine Kinase MB 1.1 NG/ML (0.0-3.6) Creatine Kinase MB Relative Index 1.9 Troponin I 0.044 ng/mL (0.000-0.056) 0.049 ng/mL (0.000-0.056) Pro-B-Type Natriuretic Peptide 2360 pg/mL (0-125) H Total Protein 7.7 G/DL (6.4-8.2) Albumin 2.5 G/DL (3.4-5.0) L Globulin 5.2 g/dL Albumin/Globulin Ratio 0.5 (1.0-2.7) L Urine Color Pale yellow Urine Appearance Clear Urine pH 6 (4.5-8.0) Urine Specific [place] 1.010 (1.005-1.035) Urine Protein Negative (NEGATIVE) Urine Glucose (UA) Negative (NEGATIVE) Urine Ketones Negative (NEGATIVE) Urine Occult Blood 2+ (NEGATIVE) H Urine Nitrite Negative (NEGATIVE) Urine Bilirubin Negative (NEGATIVE) Urine Urobilinogen Normal MG/DL (0.0-1.0) Urine Leukocyte Esterase Negative (NEGATIVE) Urine RBC 2-4 /HPF (0 - 2) H Urine WBC 0-2 /HPF (0 - 2) Urine Squamous Epithelial Cells Few /LPF (NONE/OCC) Urine Bacteria Occasional /HPF (NONE) Arterial Blood pH 7.270 (7.350-7.450) Arterial Blood Partial Pressure CO2 98.4 mmHg (35.0-45.0) *H Arterial Blood Partial Pressure O2 133.7 mmHg (75.0-100.0) H Arterial Blood HCO3 44.2 mmol/L (22.0-26.0) H Arterial Blood Oxygen Saturation 98.4 % (92.0-98.0) H Arterial Blood Base Excess 14.3 [place]o Test Positive Current Medications Medications (Trade) Dose Ordered Sig/Felipe Route PRN Reason Start Time Stop Time Status Last Admin Dose Admin Acetaminophen (Tylenol) 650 mg Q4H PRN ORAL Fever 09/04/17 10:30 10/04/17 10:29 Albuterol/ Ipratropium (Albuterol/ Ipratropium) 3 ml Q4HRT PRN HHN Shortness of Breath 09/04/17 10:30 09/09/17 10:29 Allopurinol (Zyloprim) 300 mg DAILY NG 09/05/17 09:00 10/05/17 08:59 Dextrose (Dextrose 50%) STAT PRN IV Hypoglycemia 09/04/17 10:30 10/04/17 10:29 Digoxin (Lanoxin) 0.25 mg DAILY ORAL 09/04/17 12:00 10/04/17 11:59 Furosemide (Lasix) 40 mg Q8HR IV 09/04/17 10:45 10/04/17 10:44 09/04/17 11:17 Heparin Sodium (Porcine) (Heparin 5000 units/ml) 5,000 units EVERY 12 HOURS SUBQ 09/04/17 21:00 10/04/17 20:59 Ondansetron HCl (Zofran) 4 mg Q6H PRN IVP Nausea & Vomiting 09/04/17 10:30 10/04/17 10:29 Polyethylene Glycol (Miralax) 17 gm DAILYPRN PRN ORAL Constipation 09/04/17 10:30 10/04/17 10:29 Temazepam (Restoril) 15 mg HSPRN PRN ORAL Insomnia 09/04/17 10:30 09/11/17 10:29 JUNI ABDUL Sep 04, 2017 11:55
[2017-09-04 12:00] VITALS: BP 135/68
[2017-09-04] MEDS: cefTRIAXone 1 GM in D5W 50 ML IVPB SCH (13:44)
--- NOTE | 2017-09-04 14:26 | Cardiac Electrophysiology PN ---
Subjective Subjective Cardiology consult dictated [id number] Objective Last 24 Hour Vital Signs Date Time Temp Pulse Resp B/P (MAP) Pulse Ox O2 Delivery O2 Flow Rate FiO2 09/04/17 12:00 55 09/04/17 12:00 45 09/04/17 12:00 69 09/04/17 11:01 59 24 99 Facial 45 09/04/17 09:55 97.2 73 24 129/61 97 4.0 45 09/04/17 09:26 45 09/04/17 09:26 60 24 97 Facial 45 09/04/17 09:25 97.2 73 25 129/61 98 Bi-pap 45 09/04/17 09:24 97.2 09/04/17 08:53 97.2 79 27 117/49 97 Nasal Cannula 4.0 36 09/04/17 08:26 80 18 100 Nasal Cannula 4.0 36 09/04/17 08:14 72 18 92 Nasal Cannula 4.0 36 09/04/17 08:11 72 20 Nasal Cannula 4.0 36 09/04/17 07:21 97.2 65 23 140/67 98 Nasal Cannula 4.0 09/04/17 06:30 80 20 Nasal Cannula 2.0 09/04/17 06:24 80 20 154/86 90 Nasal Cannula 2.0 Laboratory Tests Test 09/04/17 06:40 09/04/17 07:15 09/04/17 08:30 09/04/17 11:00 White Blood Count 9.8 K/UL (4.8-10.8) Red Blood Count 3.98 M/UL (4.20-5.40) L Hemoglobin 9.2 G/DL (12.0-16.0) L Hematocrit 33.0 % (37.0-47.0) L Mean Corpuscular Volume 83 FL (80-99) Mean Corpuscular Hemoglobin 23.0 PG (27.0-31.0) L Mean Corpuscular Hemoglobin Concent 27.8 G/DL (32.0-36.0) L Red Cell Distribution Width 21.8 % (11.6-14.8) H Platelet Count 391 K/UL (150-450) Mean Platelet Volume 6.2 FL (6.5-10.1) L Neutrophils (%) (Auto) 53.1 % (45.0-75.0) Lymphocytes (%) (Auto) 35.0 % (20.0-45.0) Monocytes (%) (Auto) 9.0 % (1.0-10.0) Eosinophils (%) (Auto) 2.0 % (0.0-3.0) Basophils (%) (Auto) 0.9 % (0.0-2.0) Sodium Level 142 MMOL/L (136-145) Potassium Level 4.3 MMOL/L (3.5-5.1) Chloride Level 102 MMOL/L (98-107) Carbon Dioxide Level 41 MMOL/L (21-32) *H Anion Gap 0 mmol/L (5-15) L Blood Urea Nitrogen 9 mg/dL (7-18) Creatinine 0.9 MG/DL (0.55-1.30) Estimat Glomerular Filtration Rate > 60 mL/min (>60) Glucose Level 126 MG/DL (74-106) H Calcium Level 8.9 MG/DL (8.5-10.1) Total Bilirubin 0.4 MG/DL (0.2-1.0) Aspartate Amino Transf (AST/SGOT) 33 U/L (15-37) Alanine Aminotransferase (ALT/SGPT) 99 U/L (12-78) H Alkaline Phosphatase 78 U/L (46-116) Total Creatine Kinase 57 U/L (26-308) Creatine Kinase MB 1.1 NG/ML (0.0-3.6) Creatine Kinase MB Relative Index 1.9 Troponin I 0.044 ng/mL (0.000-0.056) 0.049 ng/mL (0.000-0.056) Pro-B-Type Natriuretic Peptide 2360 pg/mL (0-125) H Total Protein 7.7 G/DL (6.4-8.2) Albumin 2.5 G/DL (3.4-5.0) L Globulin 5.2 g/dL Albumin/Globulin Ratio 0.5 (1.0-2.7) L Urine Color Pale yellow Urine Appearance Clear Urine pH 6 (4.5-8.0) Urine Specific [place] 1.010 (1.005-1.035) Urine Protein Negative (NEGATIVE) Urine Glucose (UA) Negative (NEGATIVE) Urine Ketones Negative (NEGATIVE) Urine Occult Blood 2+ (NEGATIVE) H Urine Nitrite Negative (NEGATIVE) Urine Bilirubin Negative (NEGATIVE) Urine Urobilinogen Normal MG/DL (0.0-1.0) Urine Leukocyte Esterase Negative (NEGATIVE) Urine RBC 2-4 /HPF (0 - 2) H Urine WBC 0-2 /HPF (0 - 2) Urine Squamous Epithelial Cells Few /LPF (NONE/OCC) Urine Bacteria Occasional /HPF (NONE) Arterial Blood pH 7.270 (7.350-7.450) Arterial Blood Partial Pressure CO2 98.4 mmHg (35.0-45.0) *H Arterial Blood Partial Pressure O2 133.7 mmHg (75.0-100.0) H Arterial Blood HCO3 44.2 mmol/L (22.0-26.0) H Arterial Blood Oxygen Saturation 98.4 % (92.0-98.0) H Arterial Blood Base Excess 14.3 Doroteo Test Positive Microbiology Date/Time Source Procedure Growth Status 09/04/17 06:50 Nasal Nares Influenza Types A,B Antigen (ZECHARIAH) - Final Complete DIANDRA CUMMINGS Sep 04, 2017 14:26
--- NOTE | 2017-09-04 14:35 | Diagnostic Imaging Report ---
Indication: Abnormal renal function tests, acute renal failure Technique: Grayscale and duplex images of the kidneys, retroperitoneum, and bladder were obtained. Comparison: 08/19/2017 abdominal ultrasound Findings: Right kidney measures 13.5 cm in length. Left kidney measures cm in length. Both kidneys demonstrate normal echogenicity. Mildly dilated right renal pelvis without evidence of calyceal hydronephrosis, not evident on prior abdominal ultrasound. No hydronephrosis seen on the left. No focal abnormality. Note that the upper pole of the left kidney is not well-demonstrated, however. Normal inferior vena cava. Bladder is normal. Bladder volume is 135 mL, despite the reported presence of a condom catheter. Incidentally noted is increased hepatic echogenicity, also described on recent abdomen pelvis ultrasound Impression: Mildly dilated right renal pelvis without ericka calyceal hydronephrosis, not evident on study of 16 days earlier. Significance uncertain, mild obstructive uropathy not excludable. Negative for hydronephrosis on the left Note limited evaluation of the left renal upper pole. Fatty liver, also previously described
[2017-09-04 16:00] VITALS: BP 136/72
--- NOTE | 2017-09-04 16:25 | History and Physical ---
History of Present Illness General Date patient seen: Sep 04, 2017 Time patient seen: 16:25 Reason for Hospitalization: CHF exacerbation Present Illness HPI 57y/o female with pmh of morbid obesity, HTN, asthma, DM2, GERD, likely obesity hypoventilation syndrome and recent admission for septic shock and acute respiratory failure requiring intubation who presents from SNF with SOB and cough. Pt recently discharged on 09/01/17 after hospital admission for septic shock c/b shock liver, KASHIF and respiratory failure requiring intubation. Pt was extubated on 08/26/17 and respiratory status remained stable on NC for several days prior to discharge. She also complete course of antibiotics while in hospital. Pt states for the last few days she noted worsening cough, SOB and generalized weakness, sleepiness. She has not been getting her nebulizer treatments regularly at [facility]. She denies f/c, n/v, d/c, chest pain. In ED, pt noted to acute respiratory acidosis w/ pCO2 in 90s. Pt placed on BiPAP. CXR w/ concern for fluid overload. Given lasix IV. Allergies: Coded Allergies: No Known Allergies (Unverified , 06/01/17) Medication History Scheduled Allopurinol* (Allopurinol*), 300 MG NG DAILY Aspirin* (Aspirin*), 81 MG GT DAILY Atorvastatin Calcium* (Lipitor*), 20 MG GT BEDTIME Clonidine Hcl* (Catapres*), 0.1 MG ORAL EVERY 6 HOURS, (Reported) Digoxin* (Lanoxin*), 0.25 MG ORAL DAILY Docusate Sodium* (Docusil*), 100 MG ORAL TWICE A DAY, (Reported) Ferrous Sulfate (Feosol), 325 MG ORAL THREE TIMES A DAY Gabapentin* (Gabapentin*), 600 MG ORAL QHS, (Reported) Glipizide (Glipizide Xl), 10 MG ORAL DAILY, (Reported) Guaifenesin (Mucinex), 1,200 MG ORAL TWICE A DAY Insulin Glargine (Lantus), 21 SUBQ BID, (Reported) Ipratropium/Albuterol Sulfate (DuoNeb 0.5-3(2.5)mg/3ml), 3 ML HHN Q6HR Lactobacillus Acidophilus (Acidophilus), 1 EACH PO BID, (Reported) Metoprolol Tartrate (Metoprolol Tartrate), 12.5 MG PO BID Pantoprazole* (Protonix*), 40 MG ORAL DAILY, (Reported) Scheduled PRN Acetaminophen* (Tylenol Extra Strength*), 500 MG ORAL Q12HR PRN for Mild Pain/ Temp > 100.5, (Reported) Albuterol Sulfate* (Albuterol Sulfate Hhn*), 3 ML INH Q4H PRN for Shortness of Breath, (Reported) Diphenoxylate Hcl/Atropine (Lomotil Tablet), 2 TAB ORAL for Diarrhea, (Reported) Guaifenesin* (Guaifenesin), 200 MG ORAL Q4H PRN Prochlorperazine (Compazine*), 10 MG ORAL Q8HR PRN for Nausea & Vomiting, ( Reported) Miscellaneous Medications Azelastine Hcl (Azelastine Hcl), 6 ML OP, (Reported) Capsaicin (Capsaicin), 42.5 GM TP, (Reported) Cyanocobalamin (Vitamin B-12) (Vitamin B12), 2,500 MCG PO, (Reported) Fluticasone Propionate (Flonase Allergy Relief), 9.9 ML NS, (Reported) Guar Gum (Nutrisource Fiber), 1 EACH PO, (Reported) Insulin Regular, Human (Humulin R), 0 SUBQ, (Reported) Loratadine (Loratadine), 10 MG PO, (Reported) Discontinued Medications Acetylcysteine* (Acetylcysteine*), 200 MG HHN Q6HRT Discontinued Reason: Pt stopped taking med Guar Gum (Nutrisource Fiber), 205 GM PO, (Reported) Discontinued Reason: Pt stopped taking med Ipratropium Arnett 0.5MG/2.5ML (Ipratropium Arnett 0.5MG/2.5ML), 0.5 MG HHN Q6H PRN for Shortness of Breath, (Reported) Discontinued Reason: Medication dose changed Lidocaine HCl 2% Viscous (Lidocaine HCl 2% Viscous), 15 ML ORAL QID, (Reported) Discontinued Reason: Pt stopped taking med Prochlorperazine (Compazine*), 10 MG ORAL Q8HR PRN for Nausea & Vomiting, ( Reported) Discontinued Reason: Pt stopped taking med Promethazine HCl (Promethegan), 25 MG RECTAL Q6H PRN for Nausea & Vomiting, ( Reported) Discontinued Reason: Pt stopped taking med Ranitidine Hcl* (Zantac*), 150 MG ORAL TWICE A DAY, (Reported) Discontinued Reason: Pt stopped taking med Saliva Substitution Combo No.9 (Biotene), 1,000 ML MM, (Reported) Discontinued Reason: Pt stopped taking med Sitagliptin* (Januvia*), 100 MG ORAL DAILY, (Reported) Discontinued Reason: Pt stopped taking med Patient History History Provided By: Patient, Medical Record, PMD Healthcare decision maker Resuscitation status Full Code Advanced Directive on File No Past Medical/Surgical History Past Medical/Surgical History: (1) DM2 (diabetes mellitus, type 2) (2) HTN (hypertension) (3) Asthma (4) GERD (gastroesophageal reflux disease) (5) Morbid obesity Family History Family History: Patient reports no known family medical history. Social History Social History: (1) lives at [facility] Review of Systems Constitutional: Reports: no symptoms Eye: Reports: no symptoms ENT: Reports: no symptoms Respiratory: Reports: cough, shortness of breath Cardiovascular: Reports: no symptoms Gastrointestinal: Reports: no symptoms Genitourinary: Reports: no symptoms Musculoskeletal: Reports: no symptoms Skin: Reports: no symptoms Psychiatric: Reports: no symptoms Neurological: Reports: no symptoms Endocrine: Reports: no symptoms Hematologic/Lymphatic: Reports: no symptoms Physical Exam Physical Exam Narrative General: awake, alert, morbidly obese Head: normocephalic, without obvious abnormality, atraumatic Eyes: conjunctivae/corneas clear. PERRL, EOM's intact Throat: lips, mucosa, and tongue normal. MMM Neck: supple, symmetrical, trachea midline, and no JVD Lungs: clear to auscultation bilaterally, decreased breath sounds Heart: regular rate and rhythm, S1, S2 normal, no murmur, click, rub or gallop Abdomen: soft, non-tender, non-distended, bowel sounds normal Extremities: extremities normal, atraumatic, no cyanosis or edema Pulses: 2+ and symmetric Skin: skin color, texture, turgor normal; no rashes or lesions Neurologic: grossly intact Last 24 Hour Vital Signs Date Time Temp Pulse Resp B/P (MAP) Pulse Ox O2 Delivery O2 Flow Rate FiO2 09/04/17 14:39 62 28 99 Facial 45 09/04/17 12:00 55 09/04/17 12:00 45 09/04/17 12:00 69 09/04/17 11:01 59 24 99 Facial 45 09/04/17 09:55 97.2 73 24 129/61 97 4.0 45 09/04/17 09:26 45 09/04/17 09:26 60 24 97 Facial 45 09/04/17 09:25 97.2 73 25 129/61 98 Bi-pap 45 09/04/17 09:24 97.2 09/04/17 08:53 97.2 79 27 117/49 97 Nasal Cannula 4.0 36 09/04/17 08:26 80 18 100 Nasal Cannula 4.0 36 09/04/17 08:14 72 18 92 Nasal Cannula 4.0 36 09/04/17 08:11 72 20 Nasal Cannula 4.0 36 09/04/17 07:21 97.2 65 23 140/67 98 Nasal Cannula 4.0 09/04/17 06:30 80 20 Nasal Cannula 2.0 09/04/17 06:24 80 20 154/86 90 Nasal Cannula 2.0 Laboratory Tests Test 09/04/17 06:40 09/04/17 07:15 09/04/17 08:30 09/04/17 11:00 White Blood Count 9.8 K/UL (4.8-10.8) Red Blood Count 3.98 M/UL (4.20-5.40) L Hemoglobin 9.2 G/DL (12.0-16.0) L Hematocrit 33.0 % (37.0-47.0) L Mean Corpuscular Volume 83 FL (80-99) Mean Corpuscular Hemoglobin 23.0 PG (27.0-31.0) L Mean Corpuscular Hemoglobin Concent 27.8 G/DL (32.0-36.0) L Red Cell Distribution Width 21.8 % (11.6-14.8) H Platelet Count 391 K/UL (150-450) Mean Platelet Volume 6.2 FL (6.5-10.1) L Neutrophils (%) (Auto) 53.1 % (45.0-75.0) Lymphocytes (%) (Auto) 35.0 % (20.0-45.0) Monocytes (%) (Auto) 9.0 % (1.0-10.0) Eosinophils (%) (Auto) 2.0 % (0.0-3.0) Basophils (%) (Auto) 0.9 % (0.0-2.0) Sodium Level 142 MMOL/L (136-145) Potassium Level 4.3 MMOL/L (3.5-5.1) Chloride Level 102 MMOL/L (98-107) Carbon Dioxide Level 41 MMOL/L (21-32) *H Anion Gap 0 mmol/L (5-15) L Blood Urea Nitrogen 9 mg/dL (7-18) Creatinine 0.9 MG/DL (0.55-1.30) Estimat Glomerular Filtration Rate > 60 mL/min (>60) Glucose Level 126 MG/DL (74-106) H Calcium Level 8.9 MG/DL (8.5-10.1) Total Bilirubin 0.4 MG/DL (0.2-1.0) Aspartate Amino Transf (AST/SGOT) 33 U/L (15-37) Alanine Aminotransferase (ALT/SGPT) 99 U/L (12-78) H Alkaline Phosphatase 78 U/L (46-116) Total Creatine Kinase 57 U/L (26-308) Creatine Kinase MB 1.1 NG/ML (0.0-3.6) Creatine Kinase MB Relative Index 1.9 Troponin I 0.044 ng/mL (0.000-0.056) 0.049 ng/mL (0.000-0.056) Pro-B-Type Natriuretic Peptide 2360 pg/mL (0-125) H Total Protein 7.7 G/DL (6.4-8.2) Albumin 2.5 G/DL (3.4-5.0) L Globulin 5.2 g/dL Albumin/Globulin Ratio 0.5 (1.0-2.7) L Urine Color Pale yellow Urine Appearance Clear Urine pH 6 (4.5-8.0) Urine Specific [place] 1.010 (1.005-1.035) Urine Protein Negative (NEGATIVE) Urine Glucose (UA) Negative (NEGATIVE) Urine Ketones Negative (NEGATIVE) Urine Occult Blood 2+ (NEGATIVE) H Urine Nitrite Negative (NEGATIVE) Urine Bilirubin Negative (NEGATIVE) Urine Urobilinogen Normal MG/DL (0.0-1.0) Urine Leukocyte Esterase Negative (NEGATIVE) Urine RBC 2-4 /HPF (0 - 2) H Urine WBC 0-2 /HPF (0 - 2) Urine Squamous Epithelial Cells Few /LPF (NONE/OCC) Urine Bacteria Occasional /HPF (NONE) Arterial Blood pH 7.270 (7.350-7.450) Arterial Blood Partial Pressure CO2 98.4 mmHg (35.0-45.0) *H Arterial Blood Partial Pressure O2 133.7 mmHg (75.0-100.0) H Arterial Blood HCO3 44.2 mmol/L (22.0-26.0) H Arterial Blood Oxygen Saturation 98.4 % (92.0-98.0) H Arterial Blood Base Excess 14.3 Doroteo Test Positive Microbiology Date/Time Source Procedure Growth Status 09/04/17 06:50 Nasal Nares Influenza Types A,B Antigen (ZECHARIAH) - Final Complete Height (Feet): 5 Height (Inches): 6.00 Weight (Pounds): 458 Medications Current Medications Medications (Trade) Dose Ordered Sig/Felipe Route PRN Reason Start Time Stop Time Status Last Admin Dose Admin Acetaminophen (Tylenol) 650 mg Q4H PRN ORAL Fever 09/04/17 10:30 10/04/17 10:29 Albuterol/ Ipratropium (Albuterol/ Ipratropium) 3 ml Q4HRT PRN HHN Shortness of Breath 09/04/17 10:30 09/09/17 10:29 Allopurinol (Zyloprim) 300 mg DAILY NG 09/05/17 09:00 10/05/17 08:59 Ceftriaxone Sodium 1 gm/ Dextrose 50 ml @ 100 mls/hr Q24H IVPB 09/04/17 13:00 09/11/17 12:59 09/04/17 13:44 Dextrose (Dextrose 50%) STAT PRN IV Hypoglycemia 09/04/17 10:30 10/04/17 10:29 Digoxin (Lanoxin) 0.25 mg DAILY ORAL 09/04/17 12:00 10/04/17 11:59 Diltiazem HCl (Cardizem) 30 mg EVERY 8 HOURS ORAL 09/04/17 22:00 10/04/17 21:59 Furosemide (Lasix) 40 mg Q8HR IV 09/04/17 10:45 10/04/17 10:44 09/04/17 14:35 Heparin Sodium (Porcine) (Heparin 5000 units/ml) 5,000 units EVERY 12 HOURS SUBQ 09/04/17 21:00 10/04/17 20:59 Ondansetron HCl (Zofran) 4 mg Q6H PRN IVP Nausea & Vomiting 09/04/17 10:30 10/04/17 10:29 Polyethylene Glycol (Miralax) 17 gm DAILYPRN PRN ORAL Constipation 09/04/17 10:30 10/04/17 10:29 Temazepam (Restoril) 15 mg HSPRN PRN ORAL Insomnia 09/04/17 10:30 09/11/17 10:29 Assessment/Plan Problem List: (1) Acute on chronic diastolic (congestive) heart failure ICD Codes: I50.33 - Acute on chronic diastolic (congestive) heart failure SNOMED: 06738607, 371982831 (2) Acute respiratory failure with hypoxia and hypercapnia ICD Codes: J96.01 - Acute respiratory failure with hypoxia; J96.02 - Acute respiratory failure with hypercapnia SNOMED: 50272428, 48173707, 716496860 (3) Likely obesity hypoventilation syndrome (4) Morbid obesity ICD Codes: E66.01 - Morbid (severe) obesity due to excess calories SNOMED: 191842067, 95611903092974 (5) Asthma ICD Codes: J45.909 - Unspecified asthma, uncomplicated SNOMED: 530944150 (6) HTN (hypertension) ICD Codes: I10 - Essential (primary) hypertension SNOMED: 89409290 (7) DM2 (diabetes mellitus, type 2) ICD Codes: E11.9 - Type 2 diabetes mellitus without complications SNOMED: 07350274 (8) GERD (gastroesophageal reflux disease) ICD Codes: K21.9 - Gastro-esophageal reflux disease without esophagitis SNOMED: 051093818 (9) H/O supraventricular tachycardia ICD Codes: Z86.79 - Personal history of other diseases of the circulatory system SNOMED: 745851108149792 Status: stable Assessment/Plan Admit to [facility] Pulm, cardiology, ID consulted Cont BiPAP / Trend ABG Diurese w/ lasix 40mg IV TID Monitor lytes and replete Strict I/Os, daily weights Cont SNF meds Pain control, bowel regimen Supportive care DVT Prophylaxis: SCD, HSQ Code Status: Full Hospital Classification Declaration: Based on this initial evaluation, and depending on the patient's clinical course, I anticipate that this patient will require hospitalization for 2-3 days for CHF, acute respiratory failure, and close respiratory/hemodynamic monitoring. Disposition: Once the patient is stable to leave the hospital, I anticipate the patient will likely be discharged to the following environment: back to SNF I spent 72 minutes on this patient's case, and >50% was dedicated to counseling and/or care coordination. Discussed with patient/family, nursing staff, SW/CM, pulm, cardiology, ID regarding clinical status, treatment course, and disposition planning. Time of note may not reflect time of encounter. Cassie Bolivar M.D. Sep 04, 2017 16:25
[2017-09-04 20:00] VITALS: BP 112/54
[2017-09-04] MEDS: Heparin 5000 units/ml inj SUBQ SCH (21:18)
[2017-09-04] MEDS: dilTIAZem HCl 30mg tab ORAL SCH (21:57)
[2017-09-05] VITALS: BP 127/59
[2017-09-05 04:00] VITALS: BP 112/54
[2017-09-05 04:39] LABS: BASOPHILS % (AUTO) 0.6 % (0.0-2.0); EOSINOPHILS % (AUTO) 0.2 % (0.0-3.0); HEMATOCRIT 29.6 % (37.0-47.0); HEMOGLOBIN 8.2 G/DL (12.0-16.0); LYMPHOCYTES % (AUTO) 37.6 % (20.0-45.0); MEAN CORPUSCULAR VOLUME 84 FL (80-99); MONOCYTES % (AUTO) 12.9 % (1.0-10.0); NEUTROPHILS % (AUTO) 48.7 % (45.0-75.0); PLATELET COUNT 340 K/UL (150-450); RED BLOOD COUNT 3.54 M/UL (4.20-5.40); RED CELL DISTRIBUTION WIDTH 21.6 % (11.6-14.8); WHITE BLOOD COUNT 9.2 K/UL (4.8-10.8)
[2017-09-05 04:58] LABS: ALBUMIN 2.3 G/DL (3.4-5.0); ANION GAP 0 mmol/L (5-15); BLOOD UREA NITROGEN 16 mg/dL (7-18); CALCIUM 8.3 MG/DL (8.5-10.1); CHLORIDE 100 MMOL/L (98-107); CREATININE 1.1 MG/DL (0.55-1.30); PHOSPHORUS 3.5 MG/DL (2.5-4.9); POTASSIUM 3.6 MMOL/L (3.5-5.1); SODIUM 143 MMOL/L (136-145)
[2017-09-05 05:15] LABS: CARBON DIOXIDE 43 MMOL/L (21-32)
--- NOTE | 2017-09-05 06:21 | Pulmonology Progress Note ---
Assessment/Plan Problems: (1) Acute respiratory failure with hypoxia and hypercapnia (2) Hypercapnia (3) Hepatitis B core antibody positive Assessment/Plan: improivng, continue lasix the same dose.watch bun/creatinine Respiratory: monitor respiratory rate, adjust FIO2 Cardiac: continue to monitor HR/BP Renal: F/U I&O Gastrointestinal: continue feedings/current rate Endocrine: monitor blood sugar Hematologic: monitor H/H Neurologic: PRN Ativan, PRN Morphine Prophylaxis: Protonix, Heparin Discussed with: nurses, consultants Subjective ROS Limited/Unobtainable: No Interval Events: off bipap Constitutional: Reports: no symptoms Allergies: Coded Allergies: No Known Allergies (Unverified , 06/01/17) Objective Last 24 Hour Vital Signs Date Time Temp Pulse Resp B/P (MAP) Pulse Ox O2 Delivery O2 Flow Rate FiO2 09/05/17 05:16 84 19 98 Facial 45 09/05/17 04:00 98.2 75 23 112/54 99 Bi-pap 45 09/05/17 04:00 45 09/05/17 04:00 72 09/05/17 03:01 88 24 99 Facial 45 09/05/17 01:02 86 25 98 Facial 45 09/05/17 00:00 98.8 63 26 127/59 98 Bi-pap 45 09/05/17 00:00 45 09/05/17 00:00 73 09/04/17 23:02 88 24 99 Facial 45 09/04/17 21:57 75 112/54 09/04/17 20:00 98.2 75 23 112/54 99 Bi-pap 45 09/04/17 20:00 45 09/04/17 20:00 82 09/04/17 18:57 79 28 98 Facial 45 09/04/17 16:00 64 09/04/17 16:00 98.9 87 28 136/72 98 Bi-pap 45 09/04/17 16:00 45 09/04/17 14:39 62 28 99 Facial 45 09/04/17 12:00 55 09/04/17 12:00 45 09/04/17 12:00 97.7 71 14 135/68 98 Bi-pap 45 09/04/17 12:00 69 09/04/17 11:08 60 09/04/17 11:01 59 24 99 Facial 45 09/04/17 09:55 97.2 73 24 129/61 97 4.0 45 09/04/17 09:26 45 09/04/17 09:26 60 24 97 Facial 45 09/04/17 09:25 97.2 73 25 129/61 98 Bi-pap 45 09/04/17 09:24 97.2 09/04/17 08:53 97.2 79 27 117/49 97 Nasal Cannula 4.0 36 09/04/17 08:26 80 18 100 Nasal Cannula 4.0 36 09/04/17 08:14 72 18 92 Nasal Cannula 4.0 36 09/04/17 08:11 72 20 Nasal Cannula 4.0 36 09/04/17 07:21 97.2 65 23 140/67 98 Nasal Cannula 4.0 09/04/17 06:30 80 20 Nasal Cannula 2.0 09/04/17 06:24 80 20 154/86 90 Nasal Cannula 2.0 Intake and Output 09/04/17 09/05/17 19:00 07:00 Intake Total 450 ml Output Total 1400 ml Balance -950 ml Intake Oral 400 ml IV Total 50 ml Output Urine Total 1400 ml # Bowel Movements 1 General Appearance: WD/WN HEENT: normocephalic, atraumatic Respiratory/Chest: chest wall non-tender, lungs clear Breasts: no masses Cardiovascular: regular rhythm Extremities: no clubbing Microbiology Date/Time Source Procedure Growth Status 09/04/17 14:50 Sputum Induced Gram Stain - Final Resulted 09/04/17 14:50 Sputum Induced Sputum Culture - Preliminary NO GROWTH Resulted 09/04/17 06:50 Nasal Nares Influenza Types A,B Antigen (ZECHARIAH) - Final Complete Laboratory Tests 09/04/17 06:40: White Blood Count 9.8, Red Blood Count 3.98L, Hemoglobin 9.2L, Hematocrit 33.0L , Mean Corpuscular Volume 83, Mean Corpuscular Hemoglobin 23.0L, Mean Corpuscular Hemoglobin Concent 27.8L, Red Cell Distribution Width 21.8H, Platelet Count 391, Mean Platelet Volume 6.2L, Neutrophils (%) (Auto) 53.1, Lymphocytes (%) (Auto) 35.0, Monocytes (%) (Auto) 9.0, Eosinophils (%) (Auto) 2.0, Basophils (%) (Auto) 0.9, Sodium Level 142, Potassium Level 4.3, Chloride Level 102, Carbon Dioxide Level 41*H, Anion Gap 0L, Blood Urea Nitrogen 9, Creatinine 0.9, Estimat Glomerular Filtration Rate > 60, Glucose Level 126H, Calcium Level 8.9, Total Bilirubin 0.4, Aspartate Amino Transf (AST/SGOT) 33, Alanine Aminotransferase (ALT/SGPT) 99H, Alkaline Phosphatase 78, Total Creatine Kinase 57, Creatine Kinase MB 1.1, Creatine Kinase MB Relative Index 1.9, Troponin I 0.044, Pro-B-Type Natriuretic Peptide 2360H, Total Protein 7.7, Albumin 2.5L, Globulin 5.2, Albumin/Globulin Ratio 0.5L 09/04/17 07:15: Urine Color Pale yellow, Urine Appearance Clear, Urine pH 6, Urine Specific [place] 1.010, Urine Protein Negative, Urine Glucose (UA) Negative, Urine Ketones Negative, Urine Occult Blood 2+H, Urine Nitrite Negative, Urine Bilirubin Negative, Urine Urobilinogen Normal, Urine Leukocyte Esterase Negative , Urine RBC 2-4H, Urine WBC 0-2, Urine Squamous Epithelial Cells Few, Urine Bacteria Occasional 09/04/17 08:30: Arterial Blood pH 7.270L, Arterial Blood Partial Pressure CO2 98.4*H, Arterial Blood Partial Pressure O2 133.7H, Arterial Blood HCO3 44.2H, Arterial Blood Oxygen Saturation 98.4H, Arterial Blood Base Excess 14.3, Doroteo Test Positive 09/04/17 11:00: Troponin I 0.049 09/04/17 17:30: Arterial Blood pH 7.350, Arterial Blood Partial Pressure CO2 73.0*H, Arterial Blood Partial Pressure O2 76.4, Arterial Blood HCO3 39.6H, Arterial Blood Oxygen Saturation 94.3, Arterial Blood Base Excess 11.8, Doroteo Test Positive 09/05/17 03:40: White Blood Count 9.2, Red Blood Count 3.54L, Hemoglobin 8.2L, Hematocrit 29.6L , Mean Corpuscular Volume 84, Mean Corpuscular Hemoglobin 23.3L, Mean Corpuscular Hemoglobin Concent 27.8L, Red Cell Distribution Width 21.6H, Platelet Count 340, Mean Platelet Volume 6.2L, Neutrophils (%) (Auto) 48.7, Lymphocytes (%) (Auto) 37.6, Monocytes (%) (Auto) 12.9H, Eosinophils (%) (Auto) 0.2, Basophils (%) (Auto) 0.6, Sodium Level 143, Potassium Level 3.6, Chloride Level 100, Carbon Dioxide Level 43*H, Anion Gap 0L, Blood Urea Nitrogen 16, Creatinine 1.1, Estimat Glomerular Filtration Rate > 60, Glucose Level 161H, Calcium Level 8.3L, Phosphorus Level 3.5, Magnesium Level 1.0L, Troponin I 0.046 , Albumin 2.3L Current Medications Medications (Trade) Dose Ordered Sig/Felipe Route PRN Reason Start Time Stop Time Status Last Admin Dose Admin Acetaminophen (Tylenol) 650 mg Q4H PRN ORAL Fever 09/04/17 10:30 10/04/17 10:29 Albuterol/ Ipratropium (Albuterol/ Ipratropium) 3 ml Q4HRT PRN HHN Shortness of Breath 09/04/17 10:30 09/09/17 10:29 Allopurinol (Zyloprim) 300 mg DAILY NG 09/05/17 09:00 10/05/17 08:59 Ceftriaxone Sodium 1 gm/ Dextrose 50 ml @ 100 mls/hr Q24H IVPB 09/04/17 13:00 09/11/17 12:59 09/04/17 13:44 Clotrimazole (Lotrimin) 1 applic THREE TIMES A DAY TOPIC 09/05/17 09:00 10/05/17 08:59 Dextrose (Dextrose 50%) STAT PRN IV Hypoglycemia 09/04/17 10:30 10/04/17 10:29 Digoxin (Lanoxin) 0.25 mg DAILY ORAL 09/04/17 12:00 10/04/17 11:59 Diltiazem HCl (Cardizem) 30 mg EVERY 8 HOURS ORAL 09/04/17 22:00 10/04/17 21:59 09/04/17 21:57 Furosemide (Lasix) 40 mg Q8HR IV 09/04/17 10:45 10/04/17 10:44 09/04/17 21:57 Heparin Sodium (Porcine) (Heparin 5000 units/ml) 5,000 units EVERY 12 HOURS SUBQ 09/04/17 21:00 10/04/17 20:59 09/04/17 21:18 Magnesium Sulfate 100 ml @ 100 mls/hr Q1H IV 09/05/17 12:45 09/05/17 14:44 UNV Ondansetron HCl (Zofran) 4 mg Q6H PRN IVP Nausea & Vomiting 09/04/17 10:30 10/04/17 10:29 Polyethylene Glycol (Miralax) 17 gm DAILYPRN PRN ORAL Constipation 09/04/17 10:30 10/04/17 10:29 Temazepam (Restoril) 15 mg HSPRN PRN ORAL Insomnia 09/04/17 10:30 09/11/17 10:29 DOMONIQUE DOBBS Sep 05, 2017 06:21
[2017-09-05] MEDS: dilTIAZem HCl 30mg tab ORAL SCH ×3 (06:23→21:10)
[2017-09-05 08:00] VITALS: BP 111/57
[2017-09-05] MEDS: Allopurinol 100mg Tab NG SCH (08:24)
[2017-09-05] MEDS: Heparin 5000 units/ml inj SUBQ SCH ×2 (08:29→21:00)
--- NOTE | 2017-09-05 11:59 | Diagnostic Imaging Report ---
Indication: Dyspnea Technique: XRAY Chest 1v Comparison: 09/04/2017 Findings: Exam limited due to underpenetration. Heart size and mediastinal contours are stable. Persistent interstitial opacification/edema, decreased. No definite pneumothorax. Impression: Limited exam. Stable cardiomegaly and persistent but decreased interstitial opacification/edema.
[2017-09-05 12:03] VITALS: BP 119/64
[2017-09-05] MEDS: cefTRIAXone 1 GM in D5W 50 ML IVPB SCH (13:21)
[2017-09-05] MEDS ORDERED: Tubing IV Secondary IV ONE (13:56)
[2017-09-05] MEDS ORDERED: NS 500ML ONE (13:56)
[2017-09-05] MEDS ORDERED: guaiFENesin 100mg/5ml Liq ud ORAL PRN (14:00)
--- NOTE | 2017-09-05 14:00 | General Progress Note ---
Assessment/Plan Problem List: (1) Acute on chronic diastolic (congestive) heart failure ICD Codes: I50.33 - Acute on chronic diastolic (congestive) heart failure SNOMED: 56418312, 498907553 (2) Acute respiratory failure with hypoxia and hypercapnia ICD Codes: J96.01 - Acute respiratory failure with hypoxia; J96.02 - Acute respiratory failure with hypercapnia SNOMED: 96362526, 26437825, 169434705 (3) Likely obesity hypoventilation syndrome (4) Morbid obesity ICD Codes: E66.01 - Morbid (severe) obesity due to excess calories SNOMED: 356189144, 83100136791839 (5) Asthma ICD Codes: J45.909 - Unspecified asthma, uncomplicated SNOMED: 925098336 (6) HTN (hypertension) ICD Codes: I10 - Essential (primary) hypertension SNOMED: 56356949 (7) DM2 (diabetes mellitus, type 2) ICD Codes: E11.9 - Type 2 diabetes mellitus without complications SNOMED: 00988078 (8) GERD (gastroesophageal reflux disease) ICD Codes: K21.9 - Gastro-esophageal reflux disease without esophagitis SNOMED: 635405277 (9) H/O supraventricular tachycardia ICD Codes: Z86.79 - Personal history of other diseases of the circulatory system SNOMED: 504232281697123 (10) Hypomagnesemia ICD Codes: E83.42 - Hypomagnesemia SNOMED: 663715901 Status: stable Assessment/Plan Pulm, cardiology, ID consulted Cont BiPAP 12/5 qHS and PRN Trend ABG Diurese w/ lasix 40mg IV TID Monitor lytes and replete Strict I/Os, daily weights Duonebs ATC and PRN Mucinex BID + Robitussin PRN Cont SNF meds Pain control, bowel regimen Supportive care DVT Prophylaxis: SCD, HSQ Code Status: Full Hospital Classification Declaration: Based on this initial evaluation, and depending on the patient's clinical course, I anticipate that this patient will require hospitalization for 2-3 days for CHF, acute respiratory failure, and close respiratory/hemodynamic monitoring. Disposition: Once the patient is stable to leave the hospital, I anticipate the patient will likely be discharged to the following environment: back to SNF Discussed with patient/family, nursing staff, SW/CM, pulm, cardiology, ID regarding clinical status, treatment course, and disposition planning. Time of note may not reflect time of encounter. Subjective Date patient seen: Sep 05, 2017 Time patient seen: 14:00 ROS Limited/Unobtainable: No Constitutional: Reports: no symptoms HEENT: Reports: no symptoms Cardiovascular: Reports: no symptoms Respiratory: Reports: cough, shortness of breath Gastrointestinal/Abdominal: Reports: no symptoms Genitourinary: Reports: no symptoms Neurologic/Psychiatric: Reports: no symptoms Endocrine: Reports: no symptoms Hematologic/Lymphatic: Reports: no symptoms Allergies: Coded Allergies: No Known Allergies (Unverified , 06/01/17) All Systems: reviewed and negative except above Objective Last 24 Hour Vital Signs Date Time Temp Pulse Resp B/P (MAP) Pulse Ox O2 Delivery O2 Flow Rate FiO2 09/05/17 13:13 66 119/64 09/05/17 12:03 97.0 66 18 119/64 93 Nasal Cannula 4.0 09/05/17 12:00 63 09/05/17 12:00 4.0 09/05/17 08:24 70 09/05/17 08:00 80 09/05/17 08:00 97.3 65 18 111/57 95 Nasal Cannula 4.0 09/05/17 08:00 4.0 09/05/17 07:34 98.2 09/05/17 07:24 100 Nasal Cannula 4.0 36 09/05/17 07:24 Nasal Cannula 4.0 36 09/05/17 06:23 84 135/68 09/05/17 05:16 84 19 98 Facial 45 09/05/17 04:00 98.2 75 23 112/54 99 Bi-pap 45 09/05/17 04:00 45 09/05/17 04:00 72 09/05/17 03:01 88 24 99 Facial 45 09/05/17 01:02 86 25 98 Facial 45 09/05/17 00:00 98.8 63 26 127/59 98 Bi-pap 45 09/05/17 00:00 45 09/05/17 00:00 73 09/04/17 23:02 88 24 99 Facial 45 09/04/17 21:57 75 112/54 09/04/17 20:00 98.2 75 23 112/54 99 Bi-pap 45 09/04/17 20:00 45 09/04/17 20:00 82 09/04/17 18:57 79 28 98 Facial 45 09/04/17 16:00 64 09/04/17 16:00 98.9 87 28 136/72 98 Bi-pap 45 09/04/17 16:00 45 09/04/17 14:39 62 28 99 Facial 45 Intake and Output 09/04/17 09/05/17 19:00 07:00 Intake Total 450 ml 200 ml Output Total 1400 ml 1200 ml Balance -950 ml -1000 ml Intake Oral 400 ml 200 ml IV Total 50 ml Output Urine Total 1400 ml 1200 ml # Bowel Movements 1 2 Laboratory Tests 09/04/17 17:30: Arterial Blood pH 7.350, Arterial Blood Partial Pressure CO2 73.0*H, Arterial Blood Partial Pressure O2 76.4, Arterial Blood HCO3 39.6H, Arterial Blood Oxygen Saturation 94.3, Arterial Blood Base Excess 11.8, Doroteo Test Positive 09/05/17 03:40: White Blood Count 9.2, Red Blood Count 3.54L, Hemoglobin 8.2L, Hematocrit 29.6L , Mean Corpuscular Volume 84, Mean Corpuscular Hemoglobin 23.3L, Mean Corpuscular Hemoglobin Concent 27.8L, Red Cell Distribution Width 21.6H, Platelet Count 340, Mean Platelet Volume 6.2L, Neutrophils (%) (Auto) 48.7, Lymphocytes (%) (Auto) 37.6, Monocytes (%) (Auto) 12.9H, Eosinophils (%) (Auto) 0.2, Basophils (%) (Auto) 0.6, Sodium Level 143, Potassium Level 3.6, Chloride Level 100, Carbon Dioxide Level 43*H, Anion Gap 0L, Blood Urea Nitrogen 16, Creatinine 1.1, Estimat Glomerular Filtration Rate > 60, Glucose Level 161H, Calcium Level 8.3L, Phosphorus Level 3.5, Magnesium Level 1.0L, Troponin I 0.046 , Albumin 2.3L Height (Feet): 5 Height (Inches): 6.00 Weight (Pounds): 458 Objective General: awake, alert, morbidly obese Head: normocephalic, without obvious abnormality, atraumatic Eyes: conjunctivae/corneas clear. PERRL, EOM's intact Throat: lips, mucosa, and tongue normal. MMM Neck: supple, symmetrical, trachea midline, and no JVD Lungs: clear to auscultation bilaterally, decreased breath sounds Heart: regular rate and rhythm, S1, S2 normal, no murmur, click, rub or gallop Abdomen: soft, non-tender, non-distended, bowel sounds normal Extremities: extremities normal, atraumatic, no cyanosis or edema Pulses: 2+ and symmetric Skin: skin color, texture, turgor normal; no rashes or lesions Neurologic: grossly intact Cassie Bolivar M.D. Sep 05, 2017 14:00
[2017-09-05] MEDS: guaiFENesin ER 600mg tab ORAL SCH ×2 (14:12→17:26)
[2017-09-05 16:00] VITALS: BP 117/67
[2017-09-05] MEDS: NovoLOG Insulin Flexpen SUBQ SCH ×2 (16:47→21:00)
--- NOTE | 2017-09-05 16:50 | Infectious Diseases Prog Note ---
Assessment/Plan Assessment/Plan HPI - 57 yo known to me from recent admission, asked to f/u for possible pna and abx - ASSESSMENT AND PLAN: 1. sob, bipap, uri/bronchitis, ? cap, ? edema, copd/asthma, bipap - clinically better - continue rocephin for now - sputum culture negative to date - check labs and chest x-ray - pulmonary tx and diuresis - d/w pt and RN 2. Acute kidney injury - improved 3. Elevated liver enzymes, likely shock liver. Check hepatitis panel. 4. Anemia. 5. Hypertension. 6. Diabetes. 7. Gastroesophageal reflux disease. 8. Morbid obesity. 9. Shortness of breath. 10. Hypoxia. 11. Respiratory failure. 12. On ventilator. 13. Intensive care unit care. 14. BiPAP, hypercapnia. 15. Asthma. 16. Blood sugar and blood pressure treatment for diabetes and hypertension per primary. 17. [id number] myocardial infarction history. 18. Hyperkalemia. 19. Allergies negative. 20. Social history negative. 21. Family history noncontributory. 22. mar noted. 23. Case discussed with RN 24. No known drug allergies. 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 Subjective Constitutional: Reports: other - off bipap, less sob, alert, o x 3, Denies: fever HEENT: Reports: congestion - less Respiratory: Reports: shortness of breath - less, other - less yellow/green sputum production Cardiovascular: Denies: chest pain Gastrointestinal/Abdominal: Denies: nausea, diarrhea Genitourinary: Reports: other - no vargas, no cva pain Neurologic: Denies: headache Psychiatric: Denies: depression Skin: Denies: rash Hematologic: Denies: bleeding Musculoskeletal: Denies: pain Allergies: Coded Allergies: No Known Allergies (Unverified , 06/01/17) Objective Vital Signs Last 24 Hour Vital Signs Date Time Temp Pulse Resp B/P (MAP) Pulse Ox O2 Delivery O2 Flow Rate FiO2 09/05/17 16:00 4.0 09/05/17 13:13 66 119/64 09/05/17 12:03 97.0 66 18 119/64 93 Nasal Cannula 4.0 09/05/17 12:00 63 09/05/17 12:00 4.0 09/05/17 08:24 70 09/05/17 08:00 80 09/05/17 08:00 97.3 65 18 111/57 95 Nasal Cannula 4.0 09/05/17 08:00 4.0 09/05/17 07:34 98.2 09/05/17 07:24 100 Nasal Cannula 4.0 36 09/05/17 07:24 Nasal Cannula 4.0 36 09/05/17 06:23 84 135/68 09/05/17 05:16 84 19 98 Facial 45 09/05/17 04:00 98.2 75 23 112/54 99 Bi-pap 45 09/05/17 04:00 45 09/05/17 04:00 72 09/05/17 03:01 88 24 99 Facial 45 09/05/17 01:02 86 25 98 Facial 45 09/05/17 00:00 98.8 63 26 127/59 98 Bi-pap 45 09/05/17 00:00 45 09/05/17 00:00 73 09/04/17 23:02 88 24 99 Facial 45 09/04/17 21:57 75 112/54 09/04/17 20:00 98.2 75 23 112/54 99 Bi-pap 45 09/04/17 20:00 45 09/04/17 20:00 82 09/04/17 18:57 79 28 98 Facial 45 Height (Feet): 5 Height (Inches): 6.00 Weight (Pounds): 458 General Appearance: WD/WN, no acute distress HEENT: normocephalic, atraumatic, anicteric, EOMI, supple Respiratory/Chest: crackles/rales, rhonchi - bilaterally Cardiovascular: normal rate, regular rhythm, no gallop/murmur, no JVD Abdomen: normal bowel sounds, soft, non tender, no organomegaly, non distended Genitourinary: other - no vargas, no cva pain Extremities: no cyanosis Skin: no rash Neurologic/Psychiatric: 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 Heart size and mediastinal contours are stable. Persistent interstitial opacification/edema, decreased. No definite pneumothorax. Impression: Limited exam. Stable cardiomegaly and persistent but decreased interstitial opacification/ edema. Microbiology Date/Time Source Procedure Growth Status 09/04/17 06:40 Blood Blood Culture - Preliminary NO GROWTH AFTER 24 HOURS Resulted 09/04/17 06:40 Blood Blood Culture - Preliminary NO GROWTH AFTER 24 HOURS Resulted 09/04/17 14:50 Sputum Induced Gram Stain - Final Resulted 09/04/17 14:50 Sputum Induced Sputum Culture - Preliminary NO GROWTH Resulted 09/04/17 06:50 Nasal Nares Influenza Types A,B Antigen (ZECHARIAH) - Final Complete Laboratory Tests Test 09/04/17 17:30 09/05/17 03:40 Arterial Blood pH 7.350 (7.350-7.450) Arterial Blood Partial Pressure CO2 73.0 mmHg (35.0-45.0) *H Arterial Blood Partial Pressure O2 76.4 mmHg (75.0-100.0) Arterial Blood HCO3 39.6 mmol/L (22.0-26.0) H Arterial Blood Oxygen Saturation 94.3 % (92.0-98.0) Arterial Blood Base Excess 11.8 Doroteo Test Positive White Blood Count 9.2 K/UL (4.8-10.8) Red Blood Count 3.54 M/UL (4.20-5.40) L Hemoglobin 8.2 G/DL (12.0-16.0) L Hematocrit 29.6 % (37.0-47.0) L Mean Corpuscular Volume 84 FL (80-99) Mean Corpuscular Hemoglobin 23.3 PG (27.0-31.0) L Mean Corpuscular Hemoglobin Concent 27.8 G/DL (32.0-36.0) L Red Cell Distribution Width 21.6 % (11.6-14.8) H Platelet Count 340 K/UL (150-450) Mean Platelet Volume 6.2 FL (6.5-10.1) L Neutrophils (%) (Auto) 48.7 % (45.0-75.0) Lymphocytes (%) (Auto) 37.6 % (20.0-45.0) Monocytes (%) (Auto) 12.9 % (1.0-10.0) H Eosinophils (%) (Auto) 0.2 % (0.0-3.0) Basophils (%) (Auto) 0.6 % (0.0-2.0) Sodium Level 143 MMOL/L (136-145) Potassium Level 3.6 MMOL/L (3.5-5.1) Chloride Level 100 MMOL/L (98-107) Carbon Dioxide Level 43 MMOL/L (21-32) *H Anion Gap 0 mmol/L (5-15) L Blood Urea Nitrogen 16 mg/dL (7-18) Creatinine 1.1 MG/DL (0.55-1.30) Estimat Glomerular Filtration Rate > 60 mL/min (>60) Glucose Level 161 MG/DL (74-106) H Calcium Level 8.3 MG/DL (8.5-10.1) L Phosphorus Level 3.5 MG/DL (2.5-4.9) Magnesium Level 1.0 MG/DL (1.8-2.4) L Troponin I 0.046 ng/mL (0.000-0.056) Albumin 2.3 G/DL (3.4-5.0) L Current Medications Medications (Trade) Dose Ordered Sig/Felipe Route PRN Reason Start Time Stop Time Status Last Admin Dose Admin Acetaminophen (Tylenol) 650 mg Q4H PRN ORAL Mild Pain/Temp > 100.5 09/05/17 10:00 10/05/17 09:59 Albuterol/ Ipratropium (Albuterol/ Ipratropium) 3 ml Q4HRT PRN HHN Shortness of Breath 09/04/17 10:30 09/09/17 10:29 Albuterol/ Ipratropium (Albuterol/ Ipratropium) 3 ml Q6HRT HHN 09/05/17 19:00 09/10/17 18:59 Allopurinol (Zyloprim) 300 mg DAILY NG 09/05/17 09:00 10/05/17 08:59 09/05/17 08:24 Ceftriaxone Sodium 1 gm/ Dextrose 50 ml @ 100 mls/hr Q24H IVPB 09/04/17 13:00 09/11/17 12:59 09/05/17 13:21 Clotrimazole (Lotrimin) 1 applic THREE TIMES A DAY TOPIC 09/05/17 09:00 10/05/17 08:59 09/05/17 13:13 Dextrose (Dextrose 50%) STAT PRN IV Hypoglycemia 09/05/17 15:00 10/05/17 14:59 Digoxin (Lanoxin) 0.25 mg DAILY ORAL 09/04/17 12:00 10/04/17 11:59 09/05/17 08:24 Diltiazem HCl (Cardizem) 30 mg EVERY 8 HOURS ORAL 09/04/17 22:00 10/04/17 21:59 09/05/17 13:13 Furosemide (Lasix) 40 mg Q8HR IV 09/04/17 10:45 10/04/17 10:44 09/05/17 13:13 Guaifenesin (Mucinex ER) 1,200 mg TWICE A DAY ORAL 09/05/17 14:00 10/05/17 13:59 09/05/17 14:12 Guaifenesin (Robitussin) 100 mg Q4H PRN ORAL For Cough 09/05/17 14:00 10/05/17 13:59 Heparin Sodium (Porcine) (Heparin 5000 units/ml) 5,000 units EVERY 12 HOURS SUBQ 09/04/17 21:00 10/04/17 20:59 09/05/17 08:29 Insulin Aspart (NovoLOG) BEFORE MEALS AND HS SUBQ 09/05/17 16:30 10/05/17 16:29 Ondansetron HCl (Zofran) 4 mg Q6H PRN IVP Nausea & Vomiting 09/04/17 10:30 10/04/17 10:29 Polyethylene Glycol (Miralax) 17 gm DAILYPRN PRN ORAL Constipation 09/04/17 10:30 10/04/17 10:29 JUNI ABDUL Sep 05, 2017 16:50
[2017-09-05] MEDS: Albuterol/Ipratropium 3ml neb HHN SCH (19:51)
[2017-09-05 20:00] VITALS: BP 124/70
[2017-09-06] VITALS: BP 121/66
[2017-09-06] MEDS: Albuterol/Ipratropium 3ml neb HHN SCH ×4 (03:29→19:52)
[2017-09-06 04:00] VITALS: BP 129/72
[2017-09-06 04:30] LABS: BASOPHILS % (AUTO) 1.5 % (0.0-2.0); EOSINOPHILS % (AUTO) 1.9 % (0.0-3.0); HEMATOCRIT 32.4 % (37.0-47.0); HEMOGLOBIN 9.1 G/DL (12.0-16.0); LYMPHOCYTES % (AUTO) 37.8 % (20.0-45.0); MEAN CORPUSCULAR VOLUME 84 FL (80-99); MONOCYTES % (AUTO) 12.9 % (1.0-10.0); NEUTROPHILS % (AUTO) 45.9 % (45.0-75.0); PLATELET COUNT 333 K/UL (150-450); RED BLOOD COUNT 3.85 M/UL (4.20-5.40); RED CELL DISTRIBUTION WIDTH 22.4 % (11.6-14.8); WHITE BLOOD COUNT 9.8 K/UL (4.8-10.8)
[2017-09-06 05:02] LABS: ALANINE AMINOTRANSFERASE 77 U/L (12-78); ALBUMIN 2.5 G/DL (3.4-5.0); ALBUMIN/GLOBULIN RATIO 0.5 (1.0-2.7); ALKALINE PHOSPHATASE 73 U/L (46-116); ASPARTATE AMINO TRANSFERASE 22 U/L (15-37); BILIRUBIN,TOTAL 0.4 MG/DL (0.2-1.0); BLOOD UREA NITROGEN 17 mg/dL (7-18); CALCIUM 8.4 MG/DL (8.5-10.1); CHLORIDE 98 MMOL/L (98-107); POTASSIUM 3.2 MMOL/L (3.5-5.1); SODIUM 142 MMOL/L (136-145)
[2017-09-06] MEDS: dilTIAZem HCl 30mg tab ORAL SCH ×3 (05:40→22:03)
[2017-09-06] MEDS: NovoLOG Insulin Flexpen SUBQ SCH ×4 (05:42→21:24)
[2017-09-06 06:18] LABS: CARBON DIOXIDE > 45 MMOL/L (21-32)
--- NOTE | 2017-09-06 07:40 | Pulmonology Progress Note ---
Assessment/Plan Problems: (1) Acute respiratory failure with hypoxia and hypercapnia (2) Hypercapnia (3) Hepatitis B core antibody positive Assessment/Plan one dose of diamox continue lasix IV check sputum cultures continue abc watch bun/creatinine titrate fio2 to sat of 92% dvt prophylaxis. [place] in [place] Subjective Interval Events: doing better, worried about her CO2, still coghing up phlegm Allergies: Coded Allergies: No Known Allergies (Unverified , 06/01/17) Objective Last 24 Hour Vital Signs Date Time Temp Pulse Resp B/P (MAP) Pulse Ox O2 Delivery O2 Flow Rate FiO2 09/06/17 06:36 73 20 Nasal Cannula 4.0 36 09/06/17 06:26 Nasal Cannula 3.0 32 09/06/17 06:26 97 Nasal Cannula 3.0 32 09/06/17 06:26 71 20 97 Nasal Cannula 3.0 32 09/06/17 05:40 77 121/66 09/06/17 04:43 98.1 09/06/17 04:00 77 09/06/17 04:00 4.0 09/06/17 04:00 98.2 79 20 129/72 97 Nasal Cannula 4.0 09/06/17 01:29 101 22 99 Nasal Cannula 4.0 36 09/06/17 01:24 95 22 96 Nasal Cannula 4.0 36 09/06/17 00:59 45 09/06/17 00:37 92 20 100 Facial 45 09/06/17 00:00 73 09/06/17 00:00 98.1 79 20 121/66 99 Nasal Cannula 4.0 09/05/17 21:10 81 119/64 09/05/17 20:00 98.6 81 20 124/70 99 Nasal Cannula 4.0 09/05/17 20:00 4.0 09/05/17 20:00 75 09/05/17 19:28 87 20 99 Nasal Cannula 4.0 36 09/05/17 19:21 85 20 98 Nasal Cannula 4.0 36 09/05/17 19:08 99 Nasal Cannula 4.0 36 09/05/17 19:08 Nasal Cannula 4.0 36 09/05/17 19:08 89 18 Room Air 4.0 36 09/05/17 16:00 63 09/05/17 16:00 97.5 74 20 117/67 96 Nasal Cannula 4.0 1/27/18 16:00 4.0 09/05/17 13:13 66 119/64 09/05/17 12:03 97.0 66 18 119/64 93 Nasal Cannula 4.0 09/05/17 12:00 63 09/05/17 12:00 4.0 09/05/17 08:24 70 09/05/17 08:00 80 09/05/17 08:00 97.3 65 18 111/57 95 Nasal Cannula 4.0 09/05/17 08:00 4.0 Intake and Output 09/05/17 09/06/17 19:00 07:00 Intake Total 850 ml Output Total 1000 ml Balance -150 ml Intake Oral 600 ml IV Total 250 ml Output Urine Total 1000 ml # Bowel Movements 2 2 General Appearance: WD/WN HEENT: normocephalic Respiratory/Chest: chest wall non-tender, decreased breath sounds Cardiovascular: normal peripheral pulses Abdomen: soft, non tender, no organomegaly Extremities: no cyanosis Skin: no rash Microbiology Date/Time Source Procedure Growth Status 09/04/17 06:40 Blood Blood Culture - Preliminary NO GROWTH AFTER 24 HOURS Resulted 09/04/17 06:40 Blood Blood Culture - Preliminary NO GROWTH AFTER 24 HOURS Resulted 09/04/17 14:50 Sputum Induced Gram Stain - Final Resulted 09/04/17 14:50 Sputum Induced Sputum Culture - Preliminary Resulted 09/04/17 06:50 Nasal Nares Influenza Types A,B Antigen (ZECHARIAH) - Final Complete 09/04/17 07:00 Rectum VRE Culture - Final Enterococcus Faecium - Vre Complete Laboratory Tests 09/06/17 03:30: White Blood Count 9.8, Red Blood Count 3.85L, Hemoglobin 9.1L, Hematocrit 32.4L , Mean Corpuscular Volume 84, Mean Corpuscular Hemoglobin 23.6L, Mean Corpuscular Hemoglobin Concent 28.0L, Red Cell Distribution Width 22.4H, Platelet Count 333, Mean Platelet Volume 6.1L, Neutrophils (%) (Auto) 45.9, Lymphocytes (%) (Auto) 37.8, Monocytes (%) (Auto) 12.9H, Eosinophils (%) (Auto) 1.9, Basophils (%) (Auto) 1.5, Magnesium Level 1.1L 09/06/17 03:50: Sodium Level 142, Potassium Level 3.2L, Chloride Level 98, Carbon Dioxide Level > 45*H, Blood Urea Nitrogen 17, Creatinine 1.0, Estimat Glomerular Filtration Rate > 60, Glucose Level 150H, Calcium Level 8.4L, Total Bilirubin 0.4, Aspartate Amino Transf (AST/SGOT) 22, Alanine Aminotransferase (ALT/SGPT) 77, Alkaline Phosphatase 73, Pro-B-Type Natriuretic Peptide 743H, Total Protein 7.3 , Albumin 2.5L, Globulin 4.8, Albumin/Globulin Ratio 0.5L Current Medications Medications (Trade) Dose Ordered Sig/Felipe Route PRN Reason Start Time Stop Time Status Last Admin Dose Admin Acetaminophen (Tylenol) 650 mg Q4H PRN ORAL Mild Pain/Temp > 100.5 09/05/17 10:00 10/05/17 09:59 09/06/17 03:44 Albuterol/ Ipratropium (Albuterol/ Ipratropium) 3 ml Q4HRT PRN HHN Shortness of Breath 09/04/17 10:30 09/09/17 10:29 Albuterol/ Ipratropium (Albuterol/ Ipratropium) 3 ml Q6HRT HHN 09/05/17 19:00 09/10/17 18:59 09/06/17 06:26 Allopurinol (Zyloprim) 300 mg DAILY NG 09/05/17 09:00 10/05/17 08:59 09/05/17 08:24 Ceftriaxone Sodium 1 gm/ Dextrose 50 ml @ 100 mls/hr Q24H IVPB 09/04/17 13:00 09/11/17 12:59 09/05/17 13:21 Clotrimazole (Lotrimin) 1 applic THREE TIMES A DAY TOPIC 09/05/17 09:00 10/05/17 08:59 09/05/17 17:26 Dextrose (Dextrose 50%) STAT PRN IV Hypoglycemia 09/05/17 15:00 10/05/17 14:59 Digoxin (Lanoxin) 0.25 mg DAILY ORAL 09/04/17 12:00 10/04/17 11:59 09/05/17 08:24 Diltiazem HCl (Cardizem) 30 mg EVERY 8 HOURS ORAL 09/04/17 22:00 10/04/17 21:59 09/06/17 05:40 Furosemide (Lasix) 40 mg Q8HR IV 09/04/17 10:45 10/04/17 10:44 09/06/17 05:40 Guaifenesin (Mucinex ER) 1,200 mg TWICE A DAY ORAL 09/05/17 14:00 10/05/17 13:59 09/05/17 17:26 Guaifenesin (Robitussin) 100 mg Q4H PRN ORAL For Cough 09/05/17 14:00 10/05/17 13:59 09/06/17 05:39 Heparin Sodium (Porcine) (Heparin 5000 units/ml) 5,000 units EVERY 12 HOURS SUBQ 09/04/17 21:00 10/04/17 20:59 09/05/17 21:00 Insulin Aspart (NovoLOG) BEFORE MEALS AND HS SUBQ 09/05/17 16:30 10/05/17 16:29 09/06/17 05:42 Magnesium Oxide (Mag-Ox 400mg) 400 mg BID ORAL 09/06/17 09:00 09/06/17 18:01 Ondansetron HCl (Zofran) 4 mg Q6H PRN IVP Nausea & Vomiting 09/04/17 10:30 10/04/17 10:29 Polyethylene Glycol (Miralax) 17 gm DAILYPRN PRN ORAL Constipation 09/04/17 10:30 10/04/17 10:29 Potassium Chloride (K-Dur) 40 meq TWICE A DAY ORAL 09/06/17 09:00 09/06/17 18:01 DOMONIQUE DOBBS Sep 06, 2017 07:40
[2017-09-06 08:00] VITALS: BP 133/71
[2017-09-06] MEDS: Heparin 5000 units/ml inj SUBQ SCH ×2 (08:33→21:00)
[2017-09-06] MEDS: guaiFENesin ER 600mg tab ORAL SCH ×2 (08:33→18:10)
[2017-09-06] MEDS: Allopurinol 100mg Tab NG SCH (08:33)
[2017-09-06] MEDS: Magnesium Oxide 400mg tab ORAL SCH ×2 (09:18→18:10)
--- NOTE | 2017-09-06 10:50 | Diagnostic Imaging Report ---
Indication: Dyspnea Technique: XRAY Chest 1v Comparison: 09/05/2017 Findings: Heart size and mediastinal contours are stable. Persistent interstitial opacification/edema, unchanged. No definite pneumothorax. No new focal consolidation. There is degenerative change of the spine. No acute osseous abnormality seen. Impression: Limited exam. Stable cardiomegaly and persistent mild interstitial opacification/edema. No new focal consolidation.
[2017-09-06 12:00] VITALS: BP 123/68
--- NOTE | 2017-09-06 13:02 | General Progress Note ---
Assessment/Plan Problem List: (1) Acute on chronic diastolic (congestive) heart failure ICD Codes: I50.33 - Acute on chronic diastolic (congestive) heart failure SNOMED: 97811999, 377791512 (2) Acute respiratory failure with hypoxia and hypercapnia ICD Codes: J96.01 - Acute respiratory failure with hypoxia; J96.02 - Acute respiratory failure with hypercapnia SNOMED: 12712193, 58664910, 825068117 (3) Likely obesity hypoventilation syndrome (4) Morbid obesity ICD Codes: E66.01 - Morbid (severe) obesity due to excess calories SNOMED: 172688815, 68235618312084 (5) Asthma ICD Codes: J45.909 - Unspecified asthma, uncomplicated SNOMED: 882054242 (6) HTN (hypertension) ICD Codes: I10 - Essential (primary) hypertension SNOMED: 39530762 (7) DM2 (diabetes mellitus, type 2) ICD Codes: E11.9 - Type 2 diabetes mellitus without complications SNOMED: 91103819 (8) GERD (gastroesophageal reflux disease) ICD Codes: K21.9 - Gastro-esophageal reflux disease without esophagitis SNOMED: 403258822 (9) H/O supraventricular tachycardia ICD Codes: Z86.79 - Personal history of other diseases of the circulatory system SNOMED: 942090139708937 (10) Hypomagnesemia ICD Codes: E83.42 - Hypomagnesemia SNOMED: 203159439 (11) Hematuria ICD Codes: R31.9 - Hematuria, unspecified SNOMED: 70242092 (12) Vaginal bleeding ICD Codes: N93.9 - Abnormal uterine and vaginal bleeding, unspecified SNOMED: 562001142, 307423179 (13) Hypokalemia ICD Codes: E87.6 - Hypokalemia SNOMED: 72874654 Status: stable Assessment/Plan Pulm, cardiology, ID consulted Cont BiPAP 12/5 qHS and PRN Trend ABG Diurese w/ lasix 40mg IV TID Monitor lytes and replete Strict I/Os, daily weights Duonebs ATC and PRN Mucinex BID + Robitussin PRN Trend CBC given hematuria, vaginal bleeding Consider urology and/or grain roaster eval if does not improve Cont SNF meds Pain control, bowel regimen Supportive care DVT Prophylaxis: SCD, HSQ Code Status: Full Hospital Classification Declaration: Based on this initial evaluation, and depending on the patient's clinical course, I anticipate that this patient will require hospitalization for 1-2 days for CHF, acute respiratory failure, and close respiratory/hemodynamic monitoring. Disposition: Once the patient is stable to leave the hospital, I anticipate the patient will likely be discharged to the following environment: back to SNF Discussed with patient/family, nursing staff, SW/CM, pulm, cardiology, ID regarding clinical status, treatment course, and disposition planning. Time of note may not reflect time of encounter. Subjective Date patient seen: Sep 06, 2017 Time patient seen: 13:02 ROS Limited/Unobtainable: No Constitutional: Reports: no symptoms HEENT: Reports: no symptoms Cardiovascular: Reports: no symptoms Respiratory: Reports: cough, shortness of breath Gastrointestinal/Abdominal: Reports: no symptoms Genitourinary: Reports: hematuria Neurologic/Psychiatric: Reports: no symptoms Endocrine: Reports: no symptoms Hematologic/Lymphatic: Reports: no symptoms Allergies: Coded Allergies: No Known Allergies (Unverified , 06/01/17) Subjective No acute o/n events Cough and SOB improving. Feeling anxious. Used BiPAP for 5 hours last night. Noted to have hematuria and some vaginal bleeding, possibly from trauma from external urinary catheter. Hgb stable Objective Last 24 Hour Vital Signs Date Time Temp Pulse Resp B/P (MAP) Pulse Ox O2 Delivery O2 Flow Rate FiO2 09/06/17 12:38 78 20 98 Nasal Cannula 4.0 36 09/06/17 12:27 76 22 96 Nasal Cannula 3.0 32 09/06/17 12:00 4.0 09/06/17 12:00 98.0 73 18 123/68 98 Nasal Cannula 4.0 09/06/17 08:32 74 09/06/17 08:00 98.5 74 18 133/71 98 Nasal Cannula 4.0 09/06/17 08:00 81 09/06/17 08:00 4.0 09/06/17 06:36 73 20 Nasal Cannula 4.0 36 09/06/17 06:26 Nasal Cannula 3.0 32 09/06/17 06:26 97 Nasal Cannula 3.0 32 09/06/17 06:26 71 20 97 Nasal Cannula 3.0 32 09/06/17 05:40 77 121/66 09/06/17 04:43 98.1 09/06/17 04:00 77 09/06/17 04:00 4.0 09/06/17 04:00 98.2 79 20 129/72 97 Nasal Cannula 4.0 09/06/17 01:29 101 22 99 Nasal Cannula 4.0 36 09/06/17 01:24 95 22 96 Nasal Cannula 4.0 36 09/06/17 00:59 45 09/06/17 00:37 92 20 100 Facial 45 09/06/17 00:00 73 09/06/17 00:00 98.1 79 20 121/66 99 Nasal Cannula 4.0 09/05/17 21:10 81 119/64 09/05/17 20:00 98.6 81 20 124/70 99 Nasal Cannula 4.0 09/05/17 20:00 4.0 09/05/17 20:00 75 09/05/17 19:28 87 20 99 Nasal Cannula 4.0 36 09/05/17 19:21 85 20 98 Nasal Cannula 4.0 36 09/05/17 19:08 99 Nasal Cannula 4.0 36 09/05/17 19:08 Nasal Cannula 4.0 36 09/05/17 19:08 89 18 Room Air 4.0 36 09/05/17 16:00 63 09/05/17 16:00 97.5 74 20 117/67 96 Nasal Cannula 4.0 09/05/17 16:00 4.0 09/05/17 13:13 66 119/64 Intake and Output 09/05/17 09/06/17 19:00 07:00 Intake Total 850 ml 300 ml Output Total 1000 ml 2300 ml Balance -150 ml -2000 ml Intake Oral 600 ml 300 ml IV Total 250 ml Output Urine Total 1000 ml 2300 ml # Bowel Movements 2 4 Laboratory Tests 09/06/17 03:30: White Blood Count 9.8, Red Blood Count 3.85L, Hemoglobin 9.1L, Hematocrit 32.4L , Mean Corpuscular Volume 84, Mean Corpuscular Hemoglobin 23.6L, Mean Corpuscular Hemoglobin Concent 28.0L, Red Cell Distribution Width 22.4H, Platelet Count 333, Mean Platelet Volume 6.1L, Neutrophils (%) (Auto) 45.9, Lymphocytes (%) (Auto) 37.8, Monocytes (%) (Auto) 12.9H, Eosinophils (%) (Auto) 1.9, Basophils (%) (Auto) 1.5, Magnesium Level 1.1L 09/06/17 03:50: Sodium Level 142, Potassium Level 3.2L, Chloride Level 98, Carbon Dioxide Level > 45*H, Blood Urea Nitrogen 17, Creatinine 1.0, Estimat Glomerular Filtration Rate > 60, Glucose Level 150H, Calcium Level 8.4L, Total Bilirubin 0.4, Aspartate Amino Transf (AST/SGOT) 22, Alanine Aminotransferase (ALT/SGPT) 77, Alkaline Phosphatase 73, Pro-B-Type Natriuretic Peptide 743H, Total Protein 7.3 , Albumin 2.5L, Globulin 4.8, Albumin/Globulin Ratio 0.5L Height (Feet): 5 Height (Inches): 6.00 Weight (Pounds): 458 Objective General: awake, alert, morbidly obese Head: normocephalic, without obvious abnormality, atraumatic Eyes: conjunctivae/corneas clear. PERRL, EOM's intact Throat: lips, mucosa, and tongue normal. MMM Neck: supple, symmetrical, trachea midline, and no JVD Lungs: clear to auscultation bilaterally, decreased breath sounds Heart: regular rate and rhythm, S1, S2 normal, no murmur, click, rub or gallop Abdomen: soft, non-tender, non-distended, bowel sounds normal Extremities: extremities normal, atraumatic, no cyanosis or edema Pulses: 2+ and symmetric Skin: skin color, texture, turgor normal; no rashes or lesions Neurologic: grossly intact Cassie Bolivar M.D. Sep 06, 2017 13:02
[2017-09-06] MEDS: cefTRIAXone 1 GM in D5W 50 ML IVPB SCH (13:07)
--- NOTE | 2017-09-06 15:29 | Cardiology Progress Note ---
Assessment/Plan Assessment/Plan (1) Acute on chronic diastolic (congestive) heart failure (2) Acute respiratory failure with hypoxia and hypercapnia (3) Likely obesity hypoventilation syndrome (4) Morbid obesity (5) Asthma (6) HTN (hypertension) (7) DM2 (diabetes mellitus, type 2) (8) GERD (gastroesophageal reflux disease) (9) H/O supraventricular tachycardia seems to be doing better is on q8h of lasix may need to decrease as of tomorrow pro bnp decreased tele showed nonconductor pac one episode of avb with 3 sec rr interval she seem to be feeling anxious she says Subjective Cardiovascular: Reports: palpitations, Denies: chest pain, lightheadedness Respiratory: Reports: shortness of breath Gastrointestinal/Abdominal: Denies: abdominal pain Genitourinary: Denies: burning Subjective feels very anxious Objective Last 24 Hour Vital Signs Date Time Temp Pulse Resp B/P (MAP) Pulse Ox O2 Delivery O2 Flow Rate FiO2 09/06/17 13:57 80 116/68 09/06/17 12:38 78 20 98 Nasal Cannula 4.0 36 09/06/17 12:27 76 22 96 Nasal Cannula 3.0 32 09/06/17 12:00 4.0 09/06/17 12:00 98.0 73 18 123/68 98 Nasal Cannula 4.0 09/06/17 12:00 78 09/06/17 08:32 74 09/06/17 08:00 98.5 74 18 133/71 98 Nasal Cannula 4.0 09/06/17 08:00 81 09/06/17 08:00 4.0 09/06/17 06:36 73 20 Nasal Cannula 4.0 36 09/06/17 06:26 Nasal Cannula 3.0 32 09/06/17 06:26 97 Nasal Cannula 3.0 32 09/06/17 06:26 71 20 97 Nasal Cannula 3.0 32 09/06/17 05:40 77 121/66 09/06/17 04:43 98.1 09/06/17 04:00 77 09/06/17 04:00 4.0 09/06/17 04:00 98.2 79 20 129/72 97 Nasal Cannula 4.0 09/06/17 01:29 101 22 99 Nasal Cannula 4.0 36 09/06/17 01:24 95 22 96 Nasal Cannula 4.0 36 09/06/17 00:59 45 09/06/17 00:37 92 20 100 Facial 45 09/06/17 00:00 73 09/06/17 00:00 98.1 79 20 121/66 99 Nasal Cannula 4.0 09/05/17 21:10 81 119/64 09/05/17 20:00 98.6 81 20 124/70 99 Nasal Cannula 4.0 09/05/17 20:00 4.0 09/05/17 20:00 75 09/05/17 19:28 87 20 99 Nasal Cannula 4.0 36 09/05/17 19:21 85 20 98 Nasal Cannula 4.0 36 09/05/17 19:08 99 Nasal Cannula 4.0 36 09/05/17 19:08 Nasal Cannula 4.0 36 09/05/17 19:08 89 18 Room Air 4.0 36 09/05/17 16:00 63 09/05/17 16:00 97.5 74 20 117/67 96 Nasal Cannula 4.0 09/05/17 16:00 4.0 General Appearance: alert, obese, patient on isolation Neck: supple Cardiovascular: normal rate, regular rhythm Respiratory/Chest: lungs clear, decreased breath sounds Abdomen: normal bowel sounds, non tender, soft Extremities: no swelling Intake and Output 09/05/17 09/06/17 19:00 07:00 Intake Total 850 ml 300 ml Output Total 1000 ml 2300 ml Balance -150 ml -2000 ml Intake Oral 600 ml 300 ml IV Total 250 ml Output Urine Total 1000 ml 2300 ml # Bowel Movements 2 4 Laboratory Tests Test 09/06/17 03:30 09/06/17 03:50 White Blood Count 9.8 K/UL (4.8-10.8) Red Blood Count 3.85 M/UL (4.20-5.40) L Hemoglobin 9.1 G/DL (12.0-16.0) L Hematocrit 32.4 % (37.0-47.0) L Mean Corpuscular Volume 84 FL (80-99) Mean Corpuscular Hemoglobin 23.6 PG (27.0-31.0) L Mean Corpuscular Hemoglobin Concent 28.0 G/DL (32.0-36.0) L Red Cell Distribution Width 22.4 % (11.6-14.8) H Platelet Count 333 K/UL (150-450) Mean Platelet Volume 6.1 FL (6.5-10.1) L Neutrophils (%) (Auto) 45.9 % (45.0-75.0) Lymphocytes (%) (Auto) 37.8 % (20.0-45.0) Monocytes (%) (Auto) 12.9 % (1.0-10.0) H Eosinophils (%) (Auto) 1.9 % (0.0-3.0) Basophils (%) (Auto) 1.5 % (0.0-2.0) Magnesium Level 1.1 MG/DL (1.8-2.4) L Sodium Level 142 MMOL/L (136-145) Potassium Level 3.2 MMOL/L (3.5-5.1) L Chloride Level 98 MMOL/L (98-107) Carbon Dioxide Level > 45 MMOL/L (21-32) *H Blood Urea Nitrogen 17 mg/dL (7-18) Creatinine 1.0 MG/DL (0.55-1.30) Estimat Glomerular Filtration Rate > 60 mL/min (>60) Glucose Level 150 MG/DL (74-106) H Calcium Level 8.4 MG/DL (8.5-10.1) L Total Bilirubin 0.4 MG/DL (0.2-1.0) Aspartate Amino Transf (AST/SGOT) 22 U/L (15-37) Alanine Aminotransferase (ALT/SGPT) 77 U/L (12-78) Alkaline Phosphatase 73 U/L (46-116) Pro-B-Type Natriuretic Peptide 743 pg/mL (0-125) H Total Protein 7.3 G/DL (6.4-8.2) Albumin 2.5 G/DL (3.4-5.0) L Globulin 4.8 g/dL Albumin/Globulin Ratio 0.5 (1.0-2.7) L Microbiology Date/Time Source Procedure Growth Status 09/04/17 06:40 Blood Blood Culture - Preliminary NO GROWTH AFTER 24 HOURS Resulted 09/04/17 06:40 Blood Blood Culture - Preliminary NO GROWTH AFTER 24 HOURS Resulted 09/04/17 14:50 Sputum Induced Gram Stain - Final Resulted 09/04/17 14:50 Sputum Induced Sputum Culture - Preliminary Resulted 09/04/17 07:00 Nasal Nares MRSA Culture - Final NO METHICILLIN RESISTANT STAPH AUREUS... Complete 09/04/17 06:50 Nasal Nares Influenza Types A,B Antigen (ZECHARIAH) - Final Complete 09/04/17 07:00 Rectum VRE Culture - Final Enterococcus Faecium - Vre Complete SELWYN BAXTER Sep 06, 2017 15:29
[2017-09-06 16:00] VITALS: BP 119/64
[2017-09-06] MEDS ORDERED: Tubing IV Secondary IV ONE (16:23)
[2017-09-06 20:00] VITALS: BP 118/72
[2017-09-07] VITALS: BP 119/69
[2017-09-07] MEDS: Albuterol/Ipratropium 3ml neb HHN SCH ×4 (01:00→19:04)
[2017-09-07 04:00] VITALS: BP 125/75
[2017-09-07 04:22] LABS: BASOPHILS % (AUTO) 1.8 % (0.0-2.0); HEMATOCRIT 36.3 % (37.0-47.0); HEMOGLOBIN 9.9 G/DL (12.0-16.0); LYMPHOCYTES % (AUTO) 39.4 % (20.0-45.0); MEAN CORPUSCULAR VOLUME 86 FL (80-99); MONOCYTES % (AUTO) 14.2 % (1.0-10.0); NEUTROPHILS % (AUTO) 42.7 % (45.0-75.0); PLATELET COUNT 317 K/UL (150-450); RED BLOOD COUNT 4.24 M/UL (4.20-5.40); RED CELL DISTRIBUTION WIDTH 23.5 % (11.6-14.8); WHITE BLOOD COUNT 8.4 K/UL (4.8-10.8)
[2017-09-07 04:58] LABS: ALANINE AMINOTRANSFERASE 74 U/L (12-78); ALBUMIN 2.8 G/DL (3.4-5.0); ALBUMIN/GLOBULIN RATIO 0.6 (1.0-2.7); ALKALINE PHOSPHATASE 76 U/L (46-116); ANION GAP 3 mmol/L (5-15); ASPARTATE AMINO TRANSFERASE 25 U/L (15-37); BILIRUBIN,TOTAL 0.5 MG/DL (0.2-1.0); BLOOD UREA NITROGEN 15 mg/dL (7-18); CALCIUM 8.9 MG/DL (8.5-10.1); CHLORIDE 97 MMOL/L (98-107); CREATININE 0.9 MG/DL (0.55-1.30); POTASSIUM 3.9 MMOL/L (3.5-5.1); SODIUM 141 MMOL/L (136-145)
[2017-09-07 05:11] LABS: CARBON DIOXIDE 40 MMOL/L (21-32)
[2017-09-07] MEDS: dilTIAZem HCl 30mg tab ORAL SCH (05:35)
[2017-09-07] MEDS: NovoLOG Insulin Flexpen SUBQ SCH ×4 (06:37→21:09)
[2017-09-07 08:00] VITALS: BP 127/57
[2017-09-07] MEDS: Heparin 5000 units/ml inj SUBQ SCH ×2 (08:40→21:00)
[2017-09-07] MEDS: guaiFENesin ER 600mg tab ORAL SCH ×2 (08:40→17:19)
[2017-09-07] MEDS: Allopurinol 100mg Tab NG SCH (08:40)
--- NOTE | 2017-09-07 10:21 | Cardiac Electrophysiology PN ---
Assessment/Plan Assessment/Plan 1. S/P Recent NSTEMI with Trop peak 16.4. EF 75%. No chest pain On Aspirin, Lipitor and Lopressor 12.5 bid. Can't do cardiac cath in view of extreme obesity of almost 500 pounds 2. Recurrent SVT at rate 200 bpm. Terminated transiently with 12 Adenosine. Finally converted with the second dose of digoxin. Change Cardizem to Lopressor 12.5 bid and decrease Digoxin to 0.125 daily. Too heavy for EP study. 3. S/P Respiratory failure . Now on Oxygen. 4. S/P 2:1 AVB and bradycardia with 2.8 sec pause. Change Cardizem to Toprol and decrease Cardizem 5. S/P Septic shock. On broad-spectrum intravenous antibiotic and off pressors 6. Morbid obesity 484 Lbs. 7. Severe hyperkalemia, resolved after HD. No further HD. Subjective Subjective Feeling better. No furtrher 2:1 AVB or long pauses after Cardizem DCed. Objective Last 24 Hour Vital Signs Date Time Temp Pulse Resp B/P (MAP) Pulse Ox O2 Delivery O2 Flow Rate FiO2 09/07/17 08:40 84 09/07/17 08:00 2.0 09/07/17 08:00 97.9 87 20 127/57 96 Nasal Cannula 2.0 09/07/17 07:49 80 20 99 Nasal Cannula 3.0 32 09/07/17 07:43 Nasal Cannula 3.0 32 09/07/17 07:43 76 18 99 Nasal Cannula 3.0 32 09/07/17 07:43 99 Nasal Cannula 3.0 32 09/07/17 07:34 79 09/07/17 05:35 80 127/75 09/07/17 04:00 97.9 50 18 125/75 99 Nasal Cannula 3.0 09/07/17 04:00 4.0 09/07/17 04:00 83 09/07/17 03:17 Nasal Cannula 09/07/17 03:17 Nasal Cannula 09/07/17 00:00 85 09/07/17 00:00 97.8 86 18 119/69 99 Nasal Cannula 3.0 09/07/17 00:00 4.0 09/06/17 22:03 78 119/64 09/06/17 20:00 82 09/06/17 20:00 4.0 1/28/18 20:00 97.8 84 18 118/72 97 Nasal Cannula 3.0 09/06/17 19:59 83 21 98 Nasal Cannula 4.0 36 09/06/17 19:53 Nasal Cannula 3.0 32 09/06/17 19:53 95 Nasal Cannula 3.0 32 09/06/17 19:52 73 22 97 Nasal Cannula 3.0 32 09/06/17 16:00 81 09/06/17 16:00 4.0 09/06/17 16:00 98.2 80 18 119/64 97 Nasal Cannula 3.0 09/06/17 13:57 80 116/68 09/06/17 12:38 78 20 98 Nasal Cannula 4.0 36 09/06/17 12:27 76 22 96 Nasal Cannula 3.0 32 09/06/17 12:00 4.0 09/06/17 12:00 98.0 73 18 123/68 98 Nasal Cannula 4.0 09/06/17 12:00 78 Intake and Output 09/06/17 09/07/17 19:00 07:00 Intake Total 650 ml 120 ml Output Total 3400 ml 900 ml Balance -2750 ml -780 ml Intake Oral 400 ml 120 ml IV Total 250 ml Output Urine Total 3400 ml 900 ml # Bowel Movements 2 Laboratory Tests Test 09/07/17 03:40 White Blood Count 8.4 K/UL (4.8-10.8) Red Blood Count 4.24 M/UL (4.20-5.40) Hemoglobin 9.9 G/DL (12.0-16.0) L Hematocrit 36.3 % (37.0-47.0) L Mean Corpuscular Volume 86 FL (80-99) Mean Corpuscular Hemoglobin 23.3 PG (27.0-31.0) L Mean Corpuscular Hemoglobin Concent 27.2 G/DL (32.0-36.0) L Red Cell Distribution Width 23.5 % (11.6-14.8) H Platelet Count 317 K/UL (150-450) Mean Platelet Volume 5.8 FL (6.5-10.1) L Neutrophils (%) (Auto) 42.7 % (45.0-75.0) L Lymphocytes (%) (Auto) 39.4 % (20.0-45.0) Monocytes (%) (Auto) 14.2 % (1.0-10.0) H Eosinophils (%) (Auto) 2.0 % (0.0-3.0) Basophils (%) (Auto) 1.8 % (0.0-2.0) Sodium Level 141 MMOL/L (136-145) Potassium Level 3.9 MMOL/L (3.5-5.1) Chloride Level 97 MMOL/L (98-107) L Carbon Dioxide Level 40 MMOL/L (21-32) H Anion Gap 3 mmol/L (5-15) L Blood Urea Nitrogen 15 mg/dL (7-18) Creatinine 0.9 MG/DL (0.55-1.30) Estimat Glomerular Filtration Rate > 60 mL/min (>60) Glucose Level 137 MG/DL (74-106) H Calcium Level 8.9 MG/DL (8.5-10.1) Magnesium Level 1.6 MG/DL (1.8-2.4) L Total Bilirubin 0.5 MG/DL (0.2-1.0) Aspartate Amino Transf (AST/SGOT) 25 U/L (15-37) Alanine Aminotransferase (ALT/SGPT) 74 U/L (12-78) Alkaline Phosphatase 76 U/L (46-116) Pro-B-Type Natriuretic Peptide 294 pg/mL (0-125) H Total Protein 7.5 G/DL (6.4-8.2) Albumin 2.8 G/DL (3.4-5.0) L Globulin 4.7 g/dL Albumin/Globulin Ratio 0.6 (1.0-2.7) L Microbiology Date/Time Source Procedure Growth Status 09/04/17 14:50 Sputum Induced Gram Stain - Final Complete 09/04/17 14:50 Sputum Culture - Final Staphylococcus Aureus - Mrsa Usual Upper Respiratory Cassandra Complete Objective HEENT: No JVD LUNGS: Decreased breath sounds. CARDIOVASCULAR: Regular S1 and S2 with no gallop. ABDOMEN: Morbidly obese. EXTREMITIES: 2+ pitting edema. DIANDRA CUMMINGS Sep 07, 2017 10:21
--- NOTE | 2017-09-07 11:03 | Diagnostic Imaging Report ---
Indication: Dyspnea, cough Technique: One view of the chest Comparison: 09/06/2017 Findings: The heart is enlarged. Interstitial congestion and hazy airspace opacity again demonstrated, probably unchanged allowing for differences in degree of exposure Impression: Unchanged, over one day, findings as above.
--- NOTE | 2017-09-07 11:41 | Pulmonology Progress Note ---
Assessment/Plan Problems: (1) Acute respiratory failure with hypoxia and hypercapnia (2) Hypercapnia (3) Hepatitis B core antibody positive Assessment/Plan one dose of diamox diuresed 7 liters so far cxr better today, continue lasix IV check sputum cultures watch bun/creatinine titrate fio2 to sat of 92% dvt prophylaxis. Keed in mark accelerated junctional rhythm, f/u cardiology recommendations. Subjective Constitutional: Reports: no symptoms HEENT: Repors: no symptoms Allergies: Coded Allergies: No Known Allergies (Unverified , 06/01/17) Objective Last 24 Hour Vital Signs Date Time Temp Pulse Resp B/P (MAP) Pulse Ox O2 Delivery O2 Flow Rate FiO2 09/07/17 08:40 84 09/07/17 08:00 2.0 09/07/17 08:00 97.9 87 20 127/57 96 Nasal Cannula 2.0 09/07/17 07:49 80 20 99 Nasal Cannula 3.0 32 09/07/17 07:43 Nasal Cannula 3.0 32 09/07/17 07:43 76 18 99 Nasal Cannula 3.0 32 09/07/17 07:43 99 Nasal Cannula 3.0 32 09/07/17 07:34 79 09/07/17 05:35 80 127/75 09/07/17 04:00 97.9 50 18 125/75 99 Nasal Cannula 3.0 09/07/17 04:00 4.0 09/07/17 04:00 83 09/07/17 03:17 Nasal Cannula 09/07/17 03:17 Nasal Cannula 09/07/17 00:00 85 09/07/17 00:00 97.8 86 18 119/69 99 Nasal Cannula 3.0 09/07/17 00:00 4.0 09/06/17 22:03 78 119/64 09/06/17 20:00 82 09/06/17 20:00 4.0 09/06/17 20:00 97.8 84 18 118/72 97 Nasal Cannula 3.0 09/06/17 19:59 83 21 98 Nasal Cannula 4.0 36 09/06/17 19:53 Nasal Cannula 3.0 32 09/06/17 19:53 95 Nasal Cannula 3.0 32 09/06/17 19:52 73 22 97 Nasal Cannula 3.0 32 09/06/17 16:00 81 09/06/17 16:00 4.0 09/06/17 16:00 98.2 80 18 119/64 97 Nasal Cannula 3.0 09/06/17 13:57 80 116/68 09/06/17 12:38 78 20 98 Nasal Cannula 4.0 36 09/06/17 12:27 76 22 96 Nasal Cannula 3.0 32 09/06/17 12:00 4.0 09/06/17 12:00 98.0 73 18 123/68 98 Nasal Cannula 4.0 09/06/17 12:00 78 Intake and Output 09/06/17 09/07/17 19:00 07:00 Intake Total 650 ml 120 ml Output Total 3400 ml 900 ml Balance -2750 ml -780 ml Intake Oral 400 ml 120 ml IV Total 250 ml Output Urine Total 3400 ml 900 ml # Bowel Movements 2 General Appearance: WD/WN HEENT: normocephalic, atraumatic Respiratory/Chest: chest wall non-tender, lungs clear Cardiovascular: normal peripheral pulses, normal rate Abdomen: normal bowel sounds, soft, non tender Genitourinary: normal external genitalia Extremities: no cyanosis Skin: no ulcers Neurologic/Psychiatric: no motor/sensory deficits, abnormal gait, normal mood/ affect Lymphatic: no neck adenopathy Microbiology Date/Time Source Procedure Growth Status 09/04/17 14:50 Sputum Induced Gram Stain - Final Complete 09/04/17 14:50 Sputum Culture - Final Staphylococcus Aureus - Mrsa Usual Upper Respiratory Cassandra Complete Laboratory Tests 09/07/17 03:40: White Blood Count 8.4, Red Blood Count 4.24, Hemoglobin 9.9L, Hematocrit 36.3L, Mean Corpuscular Volume 86, Mean Corpuscular Hemoglobin 23.3L, Mean Corpuscular Hemoglobin Concent 27.2L, Red Cell Distribution Width 23.5H, Platelet Count 317 , Mean Platelet Volume 5.8L, Neutrophils (%) (Auto) 42.7L, Lymphocytes (%) (Auto ) 39.4, Monocytes (%) (Auto) 14.2H, Eosinophils (%) (Auto) 2.0, Basophils (%) ( Auto) 1.8, Sodium Level 141, Potassium Level 3.9, Chloride Level 97L, Carbon Dioxide Level 40H, Anion Gap 3L, Blood Urea Nitrogen 15, Creatinine 0.9, Estimat Glomerular Filtration Rate > 60, Glucose Level 137H, Calcium Level 8.9, Magnesium Level 1.6L, Total Bilirubin 0.5, Aspartate Amino Transf (AST/SGOT) 25 , Alanine Aminotransferase (ALT/SGPT) 74, Alkaline Phosphatase 76, Pro-B-Type Natriuretic Peptide 294H, Total Protein 7.5, Albumin 2.8L, Globulin 4.7, Albumin /Globulin Ratio 0.6L Current Medications Medications (Trade) Dose Ordered Sig/Felipe Route PRN Reason Start Time Stop Time Status Last Admin Dose Admin Acetaminophen (Tylenol) 650 mg Q4H PRN ORAL Mild Pain/Temp > 100.5 09/05/17 10:00 10/05/17 09:59 09/07/17 05:35 Albuterol/ Ipratropium (Albuterol/ Ipratropium) 3 ml Q4HRT PRN HHN Shortness of Breath 09/04/17 10:30 09/09/17 10:29 Albuterol/ Ipratropium (Albuterol/ Ipratropium) 3 ml Q6HRT HHN 09/05/17 19:00 09/10/17 18:59 09/07/17 07:43 Allopurinol (Zyloprim) 300 mg DAILY NG 09/05/17 09:00 10/05/17 08:59 09/07/17 08:40 Ceftriaxone Sodium 1 gm/ Dextrose 50 ml @ 100 mls/hr Q24H IVPB 09/04/17 13:00 09/11/17 12:59 09/06/17 13:07 Clotrimazole (Lotrimin) 1 applic THREE TIMES A DAY TOPIC 09/05/17 09:00 10/05/17 08:59 09/07/17 08:41 Dextrose (Dextrose 50%) STAT PRN IV Hypoglycemia 09/05/17 15:00 10/05/17 14:59 Digoxin (Lanoxin) 0.125 mg DAILY ORAL 09/08/17 09:00 10/08/17 08:59 Furosemide (Lasix) 40 mg Q24H IV 09/07/17 14:00 10/07/17 13:59 Guaifenesin (Mucinex ER) 1,200 mg TWICE A DAY ORAL 09/05/17 14:00 10/05/17 13:59 09/07/17 08:40 Guaifenesin (Robitussin) 100 mg Q4H PRN ORAL For Cough 09/05/17 14:00 10/05/17 13:59 09/06/17 05:39 Heparin Sodium (Porcine) (Heparin 5000 units/ml) 5,000 units EVERY 12 HOURS SUBQ 09/04/17 21:00 10/04/17 20:59 09/05/17 21:00 Insulin Aspart (NovoLOG) BEFORE MEALS AND HS SUBQ 09/05/17 16:30 10/05/17 16:29 09/07/17 11:27 Metoprolol Succinate (Toprol XL) 25 mg DAILY ORAL 09/08/17 09:00 10/08/17 08:59 Ondansetron HCl (Zofran) 4 mg Q6H PRN IVP Nausea & Vomiting 09/04/17 10:30 10/04/17 10:29 Polyethylene Glycol (Miralax) 17 gm DAILYPRN PRN ORAL Constipation 09/04/17 10:30 10/04/17 10:29 DOMONIQUE DOBBS Sep 07, 2017 11:41
[2017-09-07 12:00] VITALS: BP 130/71
--- NOTE | 2017-09-07 12:00 | Consultation ---
DATE OF CONSULTATION: 09/04/2017 CARDIOLOGY CONSULTATION CONSULTING PHYSICIAN: Melvin Bejarano M.D. REFERRING PHYSICIAN: Brittany Edmond M.D. REASON FOR CONSULTATION: Congestive heart failure in a patient with history of coronary artery disease and recent FL. HISTORY OF PRESENT ILLNESS: The patient is a 57-year-old lady with history of respiratory failure, who was on the ventilator and septic shock since last week and was discharged three days ago to a senior living. The patient was brought into the emergency room for cough and increasing shortness of breath. The patient was put on BiPAP and was admitted to [facility] for further evaluation and management. At the time of my evaluation, the patient is feeling better on BiPAP. PAST MEDICAL HISTORY: 1. Coronary artery disease with the recent non-ST elevation myocardial infarction with troponin peak of more than 16. 2. History of recurrent SVT at a rate of 200 beats per minute adenosine. 3. Status post respiratory failure. 4. . 5. Status post septic shock. 6. History of hyperkalemia that was resolved after hemodialysis. 7. Morbid obesity. FAMILY HISTORY: Noncontributory. SOCIAL HISTORY: She lives in a senior living. Does not smoke or drink alcohol. REVIEW OF SYSTEMS: Review of systems was performed and was negative other than what was mentioned in the history of present illness. PHYSICAL EXAMINATION: VITAL SIGNS: Blood pressure is 128/61, pulse is 55, respirations 18, and temperature 97.2. HEAD AND NECK: Shows no JVD. LUNGS: Clear. CARDIOVASCULAR: Regular S1 and S2 with no gallop or murmur. ABDOMEN: Morbidly obese. EXTREMITIES: Trace pitting edema. She has BiPAP on. LABORATORY AND DIAGNOSTIC DATA: Her labs show white count of 9.8, hemoglobin 9.2, hematocrit 33 and platelet count is 391. Sodium 142, potassium is 4.3, BUN of 9, and creatinine of 0.9. Troponin negative x2. ASSESSMENT AND PLAN: 1. Shortness of breath, combination of chronic obstructive pulmonary disease and congestive heart failure. BNP is more than 2000. Her echocardiogram showed normal left ventricular systolic function. Continue Lasix 40 mg IV every 8 hours. 2. History of recurrent supraventricular tachycardia adenosine. Continue digoxin 0.25 mg daily. We may need to add Cardizem to her medical regimen. 3. Respiratory failure, currently on BiPAP. 4. Status post septic shock. 5. Morbid obesity. 6. Normal left ventricular systolic function, ejection fraction 75%. Thank you very much, Dr. Edmond, for allowing me to participate in the care of this patient. Please do not hesitate to contact me for any questions regarding my evaluation. Melvin Bejarano M.D. DR: SEVERIANO JOB#: [id number] CC:
[2017-09-07] MEDS: cefTRIAXone 1 GM in D5W 50 ML IVPB SCH (13:11)
--- NOTE | 2017-09-07 14:36 | General Progress Note ---
Assessment/Plan Problem List: (1) Acute on chronic diastolic (congestive) heart failure ICD Codes: I50.33 - Acute on chronic diastolic (congestive) heart failure SNOMED: 40566082, 282178110 (2) Acute respiratory failure with hypoxia and hypercapnia ICD Codes: J96.01 - Acute respiratory failure with hypoxia; J96.02 - Acute respiratory failure with hypercapnia SNOMED: 34863779, 86079687, 492578396 (3) Likely obesity hypoventilation syndrome (4) Morbid obesity ICD Codes: E66.01 - Morbid (severe) obesity due to excess calories SNOMED: 087844519, 12565811290464 (5) Asthma ICD Codes: J45.909 - Unspecified asthma, uncomplicated SNOMED: 857312026 (6) HTN (hypertension) ICD Codes: I10 - Essential (primary) hypertension SNOMED: 74234700 (7) DM2 (diabetes mellitus, type 2) ICD Codes: E11.9 - Type 2 diabetes mellitus without complications SNOMED: 25435838 (8) GERD (gastroesophageal reflux disease) ICD Codes: K21.9 - Gastro-esophageal reflux disease without esophagitis SNOMED: 098251110 (9) H/O supraventricular tachycardia ICD Codes: Z86.79 - Personal history of other diseases of the circulatory system SNOMED: 765644772773289 (10) Hypomagnesemia ICD Codes: E83.42 - Hypomagnesemia SNOMED: 275219924 (11) Hematuria ICD Codes: R31.9 - Hematuria, unspecified SNOMED: 96894689 (12) Vaginal bleeding ICD Codes: N93.9 - Abnormal uterine and vaginal bleeding, unspecified SNOMED: 077701179, 736842987 (13) Hypokalemia ICD Codes: E87.6 - Hypokalemia SNOMED: 68036864 Assessment/Plan Pulm, cardiology, ID consulted Cont BiPAP 12/5 qHS and PRN Trend ABG Diurese w/ lasix 40mg IV TID Monitor lytes and replete Strict I/Os, daily weights Duonebs ATC and PRN Mucinex BID + Robitussin PRN Trend CBC given hematuria, vaginal bleeding Consider urology and/or formulator eval if does not improve Cont SNF meds Pain control, bowel regimen Supportive care DVT Prophylaxis: SCD, HSQ Code Status: Full Hospital Classification Declaration: Based on this initial evaluation, and depending on the patient's clinical course, I anticipate that this patient will require hospitalization for 1-2 days for CHF, acute respiratory failure, and close respiratory/hemodynamic monitoring. Disposition: Once the patient is stable to leave the hospital, I anticipate the patient will likely be discharged to the following environment: back to SNF Discussed with patient/family, nursing staff, SW/CM, pulm, cardiology, ID regarding clinical status, treatment course, and disposition planning. Time of note may not reflect time of encounter. Subjective Date patient seen: Sep 07, 2017 Time patient seen: 14:35 ROS Limited/Unobtainable: No Allergies: Coded Allergies: No Known Allergies (Unverified , 06/01/17) Subjective No acute o/n events Cough and SOB improving. Feeling anxious. Used BiPAP for 5 hours last night. Noted to have hematuria and some vaginal bleeding, possibly from trauma from external urinary catheter. Hgb stable Objective Last 24 Hour Vital Signs Date Time Temp Pulse Resp B/P (MAP) Pulse Ox O2 Delivery O2 Flow Rate FiO2 09/07/17 12:51 79 16 98 Nasal Cannula 2.0 28 09/07/17 12:00 2.0 09/07/17 12:00 98.1 85 20 130/71 97 Nasal Cannula 2.0 09/07/17 11:51 83 09/07/17 08:40 84 09/07/17 08:00 2.0 09/07/17 08:00 97.9 87 20 127/57 96 Nasal Cannula 2.0 09/07/17 07:49 80 20 99 Nasal Cannula 3.0 32 09/07/17 07:43 Nasal Cannula 3.0 32 09/07/17 07:43 76 18 99 Nasal Cannula 3.0 32 09/07/17 07:43 99 Nasal Cannula 3.0 32 09/07/17 07:34 79 09/07/17 05:35 80 127/75 09/07/17 04:00 97.9 50 18 125/75 99 Nasal Cannula 3.0 09/07/17 04:00 4.0 09/07/17 04:00 83 09/07/17 03:17 Nasal Cannula 09/07/17 03:17 Nasal Cannula 09/07/17 00:00 85 09/07/17 00:00 97.8 86 18 119/69 99 Nasal Cannula 3.0 09/07/17 00:00 4.0 09/06/17 22:03 78 119/64 09/06/17 20:00 82 09/06/17 20:00 4.0 09/06/17 20:00 97.8 84 18 118/72 97 Nasal Cannula 3.0 09/06/17 19:59 83 21 98 Nasal Cannula 4.0 36 09/06/17 19:53 Nasal Cannula 3.0 32 09/06/17 19:53 95 Nasal Cannula 3.0 32 09/06/17 19:52 73 22 97 Nasal Cannula 3.0 32 09/06/17 16:00 81 09/06/17 16:00 4.0 09/06/17 16:00 98.2 80 18 119/64 97 Nasal Cannula 3.0 Intake and Output 09/06/17 09/07/17 19:00 07:00 Intake Total 650 ml 120 ml Output Total 3400 ml 900 ml Balance -2750 ml -780 ml Intake Oral 400 ml 120 ml IV Total 250 ml Output Urine Total 3400 ml 900 ml # Bowel Movements 2 Laboratory Tests 09/07/17 03:40: White Blood Count 8.4, Red Blood Count 4.24, Hemoglobin 9.9L, Hematocrit 36.3L, Mean Corpuscular Volume 86, Mean Corpuscular Hemoglobin 23.3L, Mean Corpuscular Hemoglobin Concent 27.2L, Red Cell Distribution Width 23.5H, Platelet Count 317 , Mean Platelet Volume 5.8L, Neutrophils (%) (Auto) 42.7L, Lymphocytes (%) (Auto ) 39.4, Monocytes (%) (Auto) 14.2H, Eosinophils (%) (Auto) 2.0, Basophils (%) ( Auto) 1.8, Sodium Level 141, Potassium Level 3.9, Chloride Level 97L, Carbon Dioxide Level 40H, Anion Gap 3L, Blood Urea Nitrogen 15, Creatinine 0.9, Estimat Glomerular Filtration Rate > 60, Glucose Level 137H, Calcium Level 8.9, Magnesium Level 1.6L, Total Bilirubin 0.5, Aspartate Amino Transf (AST/SGOT) 25 , Alanine Aminotransferase (ALT/SGPT) 74, Alkaline Phosphatase 76, Pro-B-Type Natriuretic Peptide 294H, Total Protein 7.5, Albumin 2.8L, Globulin 4.7, Albumin /Globulin Ratio 0.6L Height (Feet): 5 Height (Inches): 6.00 Weight (Pounds): 443 Objective General: awake, alert, morbidly obese Head: normocephalic, without obvious abnormality, atraumatic Eyes: conjunctivae/corneas clear. PERRL, EOM's intact Throat: lips, mucosa, and tongue normal. MMM Neck: supple, symmetrical, trachea midline, and no JVD Lungs: clear to auscultation bilaterally, decreased breath sounds Heart: regular rate and rhythm, S1, S2 normal, no murmur, click, rub or gallop Abdomen: soft, non-tender, non-distended, bowel sounds normal Extremities: extremities normal, atraumatic, no cyanosis or edema Pulses: 2+ and symmetric Skin: skin color, texture, turgor normal; no rashes or lesions Neurologic: grossly intact Cassie Bolivar M.D. Sep 07, 2017 14:36
--- NOTE | 2017-09-07 14:37 | General Progress Note ---
Assessment/Plan Problem List: (1) Acute on chronic diastolic (congestive) heart failure ICD Codes: I50.33 - Acute on chronic diastolic (congestive) heart failure SNOMED: 40245797, 973814193 (2) Acute respiratory failure with hypoxia and hypercapnia ICD Codes: J96.01 - Acute respiratory failure with hypoxia; J96.02 - Acute respiratory failure with hypercapnia SNOMED: 68320127, 03634983, 012947057 (3) HCAP 2/2 MRSA (4) Likely obesity hypoventilation syndrome (5) Morbid obesity ICD Codes: E66.01 - Morbid (severe) obesity due to excess calories SNOMED: 450379733, 28056292177442 (6) Asthma ICD Codes: J45.909 - Unspecified asthma, uncomplicated SNOMED: 324233851 (7) HTN (hypertension) ICD Codes: I10 - Essential (primary) hypertension SNOMED: 49260495 (8) DM2 (diabetes mellitus, type 2) ICD Codes: E11.9 - Type 2 diabetes mellitus without complications SNOMED: 11774615 (9) GERD (gastroesophageal reflux disease) ICD Codes: K21.9 - Gastro-esophageal reflux disease without esophagitis SNOMED: 586394101 (10) H/O supraventricular tachycardia ICD Codes: Z86.79 - Personal history of other diseases of the circulatory system SNOMED: 705619107214697 (11) Hypomagnesemia ICD Codes: E83.42 - Hypomagnesemia SNOMED: 072098126 (12) Hematuria ICD Codes: R31.9 - Hematuria, unspecified SNOMED: 75221450 (13) Vaginal bleeding ICD Codes: N93.9 - Abnormal uterine and vaginal bleeding, unspecified SNOMED: 839927354, 658494819 (14) Hypokalemia ICD Codes: E87.6 - Hypokalemia SNOMED: 00779668 Status: stable Assessment/Plan Pulm, cardiology, ID consulted Cont BiPAP 12/5 qHS and PRN Diurese w/ lasix 40mg IV TID Monitor lytes and replete Strict I/Os, daily weights Duonebs ATC and PRN Sputum cx w/ MRSA Start Vanco x 7 days per ID Mucinex BID + Robitussin PRN Trend CBC given hematuria, vaginal bleeding Consider urology and/or evp of products & co founder eval if does not improve Cont SNF meds Pain control, bowel regimen Supportive care Possible d/c back to SNF tomorrow DVT Prophylaxis: SCD, HSQ Code Status: Full Hospital Classification Declaration: Based on this initial evaluation, and depending on the patient's clinical course, I anticipate that this patient will require hospitalization for 1-2 days for CHF, acute respiratory failure, and close respiratory/hemodynamic monitoring. Disposition: Once the patient is stable to leave the hospital, I anticipate the patient will likely be discharged to the following environment: back to SNF Discussed with patient/family, nursing staff, SW/CM, pulm, cardiology, ID regarding clinical status, treatment course, and disposition planning. D/w pulm re BiPAP. D/w ID re abx Time of note may not reflect time of encounter. Subjective Date patient seen: Sep 07, 2017 Time patient seen: 14:37 ROS Limited/Unobtainable: No Constitutional: Reports: no symptoms HEENT: Reports: no symptoms Cardiovascular: Reports: no symptoms Respiratory: Reports: cough, shortness of breath Gastrointestinal/Abdominal: Reports: no symptoms Genitourinary: Reports: no symptoms Neurologic/Psychiatric: Reports: no symptoms Endocrine: Reports: no symptoms Hematologic/Lymphatic: Reports: no symptoms Allergies: Coded Allergies: No Known Allergies (Unverified , 06/01/17) Subjective No acute o/n events Cough and SOB improved. Didn't use BiPAP last night as she fell asleep early. Hematuria/vaginal bleeding improved. Objective Last 24 Hour Vital Signs Date Time Temp Pulse Resp B/P (MAP) Pulse Ox O2 Delivery O2 Flow Rate FiO2 09/07/17 12:51 79 16 98 Nasal Cannula 2.0 28 09/07/17 12:00 2.0 09/07/17 12:00 98.1 85 20 130/71 97 Nasal Cannula 2.0 09/07/17 11:51 83 09/07/17 08:40 84 09/07/17 08:00 2.0 09/07/17 08:00 97.9 87 20 127/57 96 Nasal Cannula 2.0 09/07/17 07:49 80 20 99 Nasal Cannula 3.0 32 09/07/17 07:43 Nasal Cannula 3.0 32 09/07/17 07:43 76 18 99 Nasal Cannula 3.0 32 09/07/17 07:43 99 Nasal Cannula 3.0 32 09/07/17 07:34 79 1/29/18 05:35 80 127/75 09/07/17 04:00 97.9 50 18 125/75 99 Nasal Cannula 3.0 09/07/17 04:00 4.0 09/07/17 04:00 83 09/07/17 03:17 Nasal Cannula 09/07/17 03:17 Nasal Cannula 09/07/17 00:00 85 09/07/17 00:00 97.8 86 18 119/69 99 Nasal Cannula 3.0 09/07/17 00:00 4.0 09/06/17 22:03 78 119/64 09/06/17 20:00 82 09/06/17 20:00 4.0 09/06/17 20:00 97.8 84 18 118/72 97 Nasal Cannula 3.0 09/06/17 19:59 83 21 98 Nasal Cannula 4.0 36 09/06/17 19:53 Nasal Cannula 3.0 32 09/06/17 19:53 95 Nasal Cannula 3.0 32 09/06/17 19:52 73 22 97 Nasal Cannula 3.0 32 09/06/17 16:00 81 09/06/17 16:00 4.0 09/06/17 16:00 98.2 80 18 119/64 97 Nasal Cannula 3.0 Intake and Output 09/06/17 09/07/17 19:00 07:00 Intake Total 650 ml 120 ml Output Total 3400 ml 900 ml Balance -2750 ml -780 ml Intake Oral 400 ml 120 ml IV Total 250 ml Output Urine Total 3400 ml 900 ml # Bowel Movements 2 Laboratory Tests 09/07/17 03:40: White Blood Count 8.4, Red Blood Count 4.24, Hemoglobin 9.9L, Hematocrit 36.3L, Mean Corpuscular Volume 86, Mean Corpuscular Hemoglobin 23.3L, Mean Corpuscular Hemoglobin Concent 27.2L, Red Cell Distribution Width 23.5H, Platelet Count 317 , Mean Platelet Volume 5.8L, Neutrophils (%) (Auto) 42.7L, Lymphocytes (%) (Auto ) 39.4, Monocytes (%) (Auto) 14.2H, Eosinophils (%) (Auto) 2.0, Basophils (%) ( Auto) 1.8, Sodium Level 141, Potassium Level 3.9, Chloride Level 97L, Carbon Dioxide Level 40H, Anion Gap 3L, Blood Urea Nitrogen 15, Creatinine 0.9, Estimat Glomerular Filtration Rate > 60, Glucose Level 137H, Calcium Level 8.9, Magnesium Level 1.6L, Total Bilirubin 0.5, Aspartate Amino Transf (AST/SGOT) 25 , Alanine Aminotransferase (ALT/SGPT) 74, Alkaline Phosphatase 76, Pro-B-Type Natriuretic Peptide 294H, Total Protein 7.5, Albumin 2.8L, Globulin 4.7, Albumin /Globulin Ratio 0.6L Height (Feet): 5 Height (Inches): 6.00 Weight (Pounds): 443 Objective General: awake, alert, morbidly obese Head: normocephalic, without obvious abnormality, atraumatic Eyes: conjunctivae/corneas clear. PERRL, EOM's intact Throat: lips, mucosa, and tongue normal. MMM Neck: supple, symmetrical, trachea midline, and no JVD Lungs: clear to auscultation bilaterally, decreased breath sounds Heart: regular rate and rhythm, S1, S2 normal, no murmur, click, rub or gallop Abdomen: soft, non-tender, non-distended, bowel sounds normal Extremities: extremities normal, atraumatic, no cyanosis or edema Pulses: 2+ and symmetric Skin: skin color, texture, turgor normal; no rashes or lesions Neurologic: grossly intact Cassie Bolivar M.D. Sep 07, 2017 14:37
[2017-09-07] MEDS: Vancomycin 1.5 GM/D5W 250ML IVPB SCH (15:33)
[2017-09-07] MEDS ORDERED: NS 500ML ONE ×2 (15:34→15:41)
[2017-09-07] MEDS ORDERED: Tubing IV Secondary IV ONE ×2 (15:34→15:41)
[2017-09-07 16:00] VITALS: BP 111/65
--- NOTE | 2017-09-07 17:43 | Diagnostic Imaging Report ---
Indication: Vaginal bleeding Technique: Transabdominal images only performed. Endovaginal images not performed, per patient request. Exam also limited by patient body habitus Comparison: none Findings: The uterus is retroverted, measures 8.4 cm length by 5.1 cm AP. Endometrium measures 6 cm thick. No definite myometrial abnormality. Neither ovary could be definitively visualized, although small structures which could represent ovaries are questionably visualized. No gross adnexal mass. No gross cul-de-sac fluid Impression: Very limited exam, as described. No gross acute pathology
--- NOTE | 2017-09-07 18:25 | Infectious Diseases Prog Note ---
Assessment/Plan Assessment/Plan ASSESSMENT AND PLAN: 1. sob, bipap, mrsa pna vs uri/bronchitis vs chf/edema - clinically better, off bipa now - vancomycin x 1 week reasonable since recently on vancomycin and high likelihood this is chf/edema with uri/bronchitis - check labs and chest x-ray - pulmonary tx and diuresis - d/w pt and RN - d/w Dr. Matthews about abx 2. Acute kidney injury - improved 3. Elevated liver enzymes, likely shock liver. Check hepatitis panel. 4. Anemia. 5. Hypertension. 6. Diabetes. 7. Gastroesophageal reflux disease. 8. Morbid obesity. 9. Shortness of breath. 10. Hypoxia. 11. Respiratory failure. 12. On ventilator. 13. Intensive care unit care. 14. BiPAP, hypercapnia. 15. Asthma. 16. Blood sugar and blood pressure treatment for diabetes and hypertension per primary. 17. Vlj-JB-jectigwdn myocardial infarction history. 18. Hyperkalemia. 19. Allergies negative. 20. Social history negative. 21. Family history noncontributory. 22. mar noted. 23. Case discussed with RN 24. No known drug allergies. 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 Subjective Constitutional: Denies: fever HEENT: Reports: congestion - less, other - less sputum Respiratory: Reports: shortness of breath - less Cardiovascular: Denies: chest pain Gastrointestinal/Abdominal: Denies: nausea, vomiting, diarrhea Genitourinary: Reports: other - no vargas Neurologic: Denies: headache Psychiatric: Denies: depression Skin: Denies: rash Hematologic: Denies: bleeding Musculoskeletal: Denies: pain Allergies: Coded Allergies: No Known Allergies (Unverified , 06/01/17) Objective Vital Signs Last 24 Hour Vital Signs Date Time Temp Pulse Resp B/P (MAP) Pulse Ox O2 Delivery O2 Flow Rate FiO2 09/07/17 16:00 98.2 82 20 111/65 94 Nasal Cannula 2.0 09/07/17 16:00 2.0 09/07/17 16:00 82 09/07/17 13:01 78 18 99 Nasal Cannula 2.0 28 09/07/17 12:51 79 16 98 Nasal Cannula 2.0 28 09/07/17 12:00 2.0 09/07/17 12:00 98.1 85 20 130/71 97 Nasal Cannula 2.0 09/07/17 11:51 83 09/07/17 08:40 84 09/07/17 08:00 2.0 09/07/17 08:00 97.9 87 20 127/57 96 Nasal Cannula 2.0 09/07/17 07:49 80 20 99 Nasal Cannula 3.0 32 09/07/17 07:43 Nasal Cannula 3.0 32 09/07/17 07:43 76 18 99 Nasal Cannula 3.0 32 09/07/17 07:43 99 Nasal Cannula 3.0 32 09/07/17 07:34 79 09/07/17 05:35 80 127/75 09/07/17 04:00 97.9 50 18 125/75 99 Nasal Cannula 3.0 09/07/17 04:00 4.0 09/07/17 04:00 83 09/07/17 03:17 Nasal Cannula 09/07/17 03:17 Nasal Cannula 09/07/17 00:00 85 09/07/17 00:00 97.8 86 18 119/69 99 Nasal Cannula 3.0 09/07/17 00:00 4.0 09/06/17 22:03 78 119/64 09/06/17 20:00 82 09/06/17 20:00 4.0 09/06/17 20:00 97.8 84 18 118/72 97 Nasal Cannula 3.0 09/06/17 19:59 83 21 98 Nasal Cannula 4.0 36 09/06/17 19:53 Nasal Cannula 3.0 32 09/06/17 19:53 95 Nasal Cannula 3.0 32 09/06/17 19:52 73 22 97 Nasal Cannula 3.0 32 Height (Feet): 5 Height (Inches): 6.00 Weight (Pounds): 443 General Appearance: no acute distress HEENT: normocephalic, atraumatic, anicteric, mucous membranes moist, EOMI, pharynx normal, supple, no JVD Respiratory/Chest: crackles/rales, rhonchi - bilaterally Cardiovascular: normal rate, regular rhythm, no gallop/murmur, no JVD Abdomen: normal bowel sounds, soft, non tender, no organomegaly, non distended Genitourinary: other - no vargas Extremities: no cyanosis Skin: no rash Neurologic/Psychiatric: 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 Heart size and mediastinal contours are stable. Persistent interstitial opacification/edema, decreased. No definite pneumothorax. Impression: Limited exam. Stable cardiomegaly and persistent but decreased interstitial opacification/ edema. Chest x-ray - 09/07 - again demonstrated, probably unchanged allowing for differences in degree of exposure Impression: Unchanged, over one day, findings as above. Microbiology Date/Time Source Procedure Growth Status 09/04/17 06:40 Blood Blood Culture - Preliminary NO GROWTH AFTER 48 HOURS Resulted 09/04/17 14:50 Sputum Induced Gram Stain - Final Complete 09/04/17 14:50 Sputum Culture - Final Staphylococcus Aureus - Mrsa Usual Upper Respiratory Cassandra Complete 09/04/17 07:00 Rectum VRE Culture - Final Enterococcus Faecium - Vre Complete Laboratory Tests Test 09/07/17 03:40 White Blood Count 8.4 K/UL (4.8-10.8) Red Blood Count 4.24 M/UL (4.20-5.40) Hemoglobin 9.9 G/DL (12.0-16.0) L Hematocrit 36.3 % (37.0-47.0) L Mean Corpuscular Volume 86 FL (80-99) Mean Corpuscular Hemoglobin 23.3 PG (27.0-31.0) L Mean Corpuscular Hemoglobin Concent 27.2 G/DL (32.0-36.0) L Red Cell Distribution Width 23.5 % (11.6-14.8) H Platelet Count 317 K/UL (150-450) Mean Platelet Volume 5.8 FL (6.5-10.1) L Neutrophils (%) (Auto) 42.7 % (45.0-75.0) L Lymphocytes (%) (Auto) 39.4 % (20.0-45.0) Monocytes (%) (Auto) 14.2 % (1.0-10.0) H Eosinophils (%) (Auto) 2.0 % (0.0-3.0) Basophils (%) (Auto) 1.8 % (0.0-2.0) Sodium Level 141 MMOL/L (136-145) Potassium Level 3.9 MMOL/L (3.5-5.1) Chloride Level 97 MMOL/L (98-107) L Carbon Dioxide Level 40 MMOL/L (21-32) H Anion Gap 3 mmol/L (5-15) L Blood Urea Nitrogen 15 mg/dL (7-18) Creatinine 0.9 MG/DL (0.55-1.30) Estimat Glomerular Filtration Rate > 60 mL/min (>60) Glucose Level 137 MG/DL (74-106) H Calcium Level 8.9 MG/DL (8.5-10.1) Magnesium Level 1.6 MG/DL (1.8-2.4) L Total Bilirubin 0.5 MG/DL (0.2-1.0) Aspartate Amino Transf (AST/SGOT) 25 U/L (15-37) Alanine Aminotransferase (ALT/SGPT) 74 U/L (12-78) Alkaline Phosphatase 76 U/L (46-116) Pro-B-Type Natriuretic Peptide 294 pg/mL (0-125) H Total Protein 7.5 G/DL (6.4-8.2) Albumin 2.8 G/DL (3.4-5.0) L Globulin 4.7 g/dL Albumin/Globulin Ratio 0.6 (1.0-2.7) L Current Medications Medications (Trade) Dose Ordered Sig/Felipe Route PRN Reason Start Time Stop Time Status Last Admin Dose Admin Acetaminophen (Tylenol) 650 mg Q4H PRN ORAL Mild Pain/Temp > 100.5 09/05/17 10:00 10/05/17 09:59 09/07/17 05:35 Albuterol/ Ipratropium (Albuterol/ Ipratropium) 3 ml Q4HRT PRN HHN Shortness of Breath 09/04/17 10:30 09/09/17 10:29 Albuterol/ Ipratropium (Albuterol/ Ipratropium) 3 ml Q6HRT HHN 09/05/17 19:00 09/10/17 18:59 09/07/17 12:51 Allopurinol (Zyloprim) 300 mg DAILY NG 09/05/17 09:00 10/05/17 08:59 09/07/17 08:40 Clotrimazole (Lotrimin) 1 applic THREE TIMES A DAY TOPIC 09/05/17 09:00 10/05/17 08:59 09/07/17 17:18 Dextrose (Dextrose 50%) STAT PRN IV Hypoglycemia 09/05/17 15:00 10/05/17 14:59 Digoxin (Lanoxin) 0.125 mg DAILY ORAL 09/08/17 09:00 10/08/17 08:59 Furosemide (Lasix) 40 mg Q24H IV 09/07/17 14:00 10/07/17 13:59 09/07/17 13:11 Guaifenesin (Mucinex ER) 1,200 mg TWICE A DAY ORAL 09/05/17 14:00 10/05/17 13:59 09/07/17 17:19 Guaifenesin (Robitussin) 100 mg Q4H PRN ORAL For Cough 09/05/17 14:00 10/05/17 13:59 09/06/17 05:39 Heparin Sodium (Porcine) (Heparin 5000 units/ml) 5,000 units EVERY 12 HOURS SUBQ 09/04/17 21:00 10/04/17 20:59 09/05/17 21:00 Insulin Aspart (NovoLOG) BEFORE MEALS AND HS SUBQ 09/05/17 16:30 10/05/17 16:29 09/07/17 16:47 Metoprolol Succinate (Toprol XL) 25 mg DAILY ORAL 09/08/17 09:00 10/08/17 08:59 Ondansetron HCl (Zofran) 4 mg Q6H PRN IVP Nausea & Vomiting 09/04/17 10:30 10/04/17 10:29 Polyethylene Glycol (Miralax) 17 gm DAILYPRN PRN ORAL Constipation 09/04/17 10:30 10/04/17 10:29 Vancomycin HCl (Vanco rx to dose) 1 ea DAILY PRN MISC Per rx protocol 09/07/17 14:30 10/07/17 14:29 Vancomycin HCl/ Dextrose 250 ml @ 125 mls/hr Q12HR@0300,1500 IVPB 09/07/17 15:00 09/12/17 14:59 09/07/17 15:33 JUNI ABDUL Sep 07, 2017 18:25
--- NOTE | 2017-09-07 18:34 | Cardiology Report ---
APPROVED REPORT EXAM: Two-dimensional and M-mode echocardiogram with Doppler and color Doppler. INDICATION LV FUNCTION M-Mode DIMENSIONS IVSd1.2 (0.7-1.1cm)Left Atrium (MM)4.2 (1.6-4.0cm) LVDd4.3 (3.5-5.6cm)Aortic Root3.0 (2.0-3.7cm) PWd1.1 (0.7-1.1cm)Aortic Cusp Exc.1.9 (1.5-2.0cm) IVSs1.4 cm LVDs2.5 (2.5-4.0cm) PWs1.7 cm Technically difficult study due to poor acoustical windows and patient breathing. Normal left ventricular chamber size, systolic function and wall motion to extent visualized. Left ventricular ejection fraction estimated to be 65-70 %. Moderate left ventricular hypertrophy. No evidence of pericardial effusion. Mild Left atrial enlargement. Right cardiac chamber sizes are within normal limits. Focal aortic valve sclerosis with adequate cusp excursion. Thickened mitral valve leaflets with normal excursion. Mitral annulus and aortic root calcification. Pulmonic valve not well visualized. Normal tricuspid valve structure. IVC dilated at 2.4 cm without physiologic collapse suggestive of increased RA pressure. A color flow and spectral Doppler study was performed and revealed: No aortic insufficiency . Mild mitral regurgitation. Trace tricuspid regurgitation. Tricuspid systolic velocities suggests peak right ventricular systolic pressure of 20mmHg No Pulmonic regurgitation present.
[2017-09-07 20:00] VITALS: BP 105/64
[2017-09-08] VITALS: BP 122/74
[2017-09-08] MEDS: Albuterol/Ipratropium 3ml neb HHN SCH ×3 (01:08→14:00)
[2017-09-08] MEDS: Vancomycin 1.5 GM/D5W 250ML IVPB SCH ×2 (02:37→14:07)
[2017-09-08 04:00] VITALS: BP 109/72
[2017-09-08 05:46] LABS: BASOPHILS % (AUTO) 1.9 % (0.0-2.0); EOSINOPHILS % (AUTO) 2.8 % (0.0-3.0); HEMATOCRIT 36.3 % (37.0-47.0); HEMOGLOBIN 9.8 G/DL (12.0-16.0); LYMPHOCYTES % (AUTO) 38.9 % (20.0-45.0); MEAN CORPUSCULAR VOLUME 85 FL (80-99); MONOCYTES % (AUTO) 13.5 % (1.0-10.0); NEUTROPHILS % (AUTO) 42.9 % (45.0-75.0); PLATELET COUNT 275 K/UL (150-450); RED BLOOD COUNT 4.25 M/UL (4.20-5.40); RED CELL DISTRIBUTION WIDTH 22.4 % (11.6-14.8); WHITE BLOOD COUNT 8.3 K/UL (4.8-10.8)
[2017-09-08] MEDS: NovoLOG Insulin Flexpen SUBQ SCH ×3 (06:25→16:44)
[2017-09-08 06:28] LABS: ALANINE AMINOTRANSFERASE 56 U/L (12-78); ALBUMIN 2.5 G/DL (3.4-5.0); ALBUMIN/GLOBULIN RATIO 0.5 (1.0-2.7); ALKALINE PHOSPHATASE 73 U/L (46-116); ANION GAP 5 mmol/L (5-15); ASPARTATE AMINO TRANSFERASE 20 U/L (15-37); BILIRUBIN,TOTAL 0.5 MG/DL (0.2-1.0); BLOOD UREA NITROGEN 15 mg/dL (7-18); CALCIUM 8.9 MG/DL (8.5-10.1); CARBON DIOXIDE 36 MMOL/L (21-32); CHLORIDE 97 MMOL/L (98-107); POTASSIUM 3.6 MMOL/L (3.5-5.1); SODIUM 138 MMOL/L (136-145)
[2017-09-08] MEDS ORDERED: Vanco pharmacy to dose MISC (07:57)
[2017-09-08] MEDS ORDERED: METOPROLOL SUCC25 MG ORAL (07:57)
[2017-09-08] MEDS ORDERED: CLOTRIMAZOLE15 GM TOPIC (07:57)
[2017-09-08] MEDS ORDERED: DUONEB 0.5-3(2.53 ML HHN (07:57)
[2017-09-08] MEDS ORDERED: FUROSEMIDE40 MG ORAL (07:58)
[2017-09-08 08:00] VITALS: BP 103/53
--- NOTE | 2017-09-08 08:03 | Discharge Instructions ---
Discharge Instructions Discharge Instructions Follow up with: PCP Diet: 2 GM sodium (low sodium), cardiac 2 GM Na, low fat Resume Normal Activity?: Yes Activity: resume normal activities Special Instructions BiPAP 12/5 at bedtime and as needed. Titrate FiO2 to O2 sat 92% For Congestive Heart Failure Reminder Report to your physician any weight gain of 5 pounds or more in one week. Cassie Bolivar M.D. Sep 08, 2017 08:03
[2017-09-08] MEDS: Allopurinol 100mg Tab NG SCH (08:15)
[2017-09-08] MEDS: guaiFENesin ER 600mg tab ORAL SCH ×2 (08:16→17:10)
[2017-09-08] MEDS: Heparin 5000 units/ml inj SUBQ SCH (08:16)
[2017-09-08] MEDS ORDERED: Metoprolol Succinate XL 25mg tab ORAL SCH (09:00)
[2017-09-08] MEDS ORDERED: Digoxin 0.125mg tab ORAL SCH (09:00)
--- NOTE | 2017-09-08 11:02 | Diagnostic Imaging Report ---
Indication: Dyspnea Technique: One view of the chest Comparison: 09/07/2017 Findings: Cardiomegaly, mild interstitial congestive changes persists, stable. Pleural spaces are grossly clear. Impression: Cardiomegaly and mild interstitial congestion, unchanged over one day
[2017-09-08 12:00] VITALS: BP 107/50
[2017-09-08] MEDS ORDERED: NS 500ML ONE (14:52)
[2017-09-08] MEDS ORDERED: Tubing IV Secondary IV ONE (14:52)
[2017-09-08 16:00] VITALS: BP 128/62
--- NOTE | 2017-09-08 16:08 | Cardiac Electrophysiology PN ---
Assessment/Plan Assessment/Plan 1. S/P Recent NSTEMI with Trop peak 16.4. EF 75%. No chest pain On Aspirin, Lipitor and Toprol 25 daily Can't do cardiac cath in view of extreme obesity of almost 500 pounds 2. Recurrent SVT at rate 200 bpm. Terminated transiently with 12 Adenosine. Finally converted with the second dose of digoxin. On Toprol 25 daily and Digoxin to 0.125 daily. Too heavy for EP study. 3. S/P Respiratory failure. Now on Oxygen. 4. S/P 2:1 AVB and bradycardia with 2.8 sec pause. On Toprol 25 daily no recurrence. 5. S/P Septic shock. On broad-spectrum intravenous antibiotic and off pressors 6. Morbid obesity 484 Lbs. 7. Severe hyperkalemia, resolved after HD. No further HD. ROLLY RN Subjective Subjective Feeling better. No further 2:1 AVB or long pauses. DC planning tomorrow. Objective Last 24 Hour Vital Signs Date Time Temp Pulse Resp B/P (MAP) Pulse Ox O2 Delivery O2 Flow Rate FiO2 09/08/17 14:15 79 18 98 Nasal Cannula 2.0 28 09/08/17 14:00 80 18 97 Nasal Cannula 2.0 28 09/08/17 12:00 98.0 78 19 107/50 97 Nasal Cannula 2.0 09/08/17 12:00 81 09/08/17 08:16 85 103/53 09/08/17 08:15 85 09/08/17 08:00 85 09/08/17 08:00 98.3 18 103/53 95 Nasal Cannula 2.0 09/08/17 07:35 88 18 97 Nasal Cannula 2.0 28 09/08/17 07:28 98 Nasal Cannula 2.0 28 09/08/17 07:27 Nasal Cannula 2.0 28 09/08/17 07:24 84 18 98 Nasal Cannula 2.0 28 09/08/17 04:00 97.7 68 20 109/72 99 Nasal Cannula 2.0 09/08/17 04:00 77 09/08/17 01:13 91 18 97 Nasal Cannula 2.0 28 09/08/17 01:05 88 18 96 Nasal Cannula 2.0 28 09/08/17 00:00 98.0 94 20 122/74 99 Nasal Cannula 2.0 09/08/17 00:00 90 09/07/17 20:00 2.0 09/07/17 20:00 90 09/07/17 20:00 98.4 84 20 105/64 98 Nasal Cannula 2.0 09/07/17 19:16 83 18 99 Nasal Cannula 2.0 28 09/07/17 19:04 77 16 97 Nasal Cannula 2.0 28 09/07/17 19:03 Nasal Cannula 3.0 32 09/07/17 19:03 98 Nasal Cannula 3.0 32 Intake and Output 09/07/17 09/08/17 19:00 07:00 Intake Total 1100 ml 490 ml Output Total 2000 ml 1000 ml Balance -900 ml -510 ml Intake Oral 600 ml 240 ml IV Total 500 ml 250 ml Output Urine Total 2000 ml 1000 ml # Bowel Movements 1 Laboratory Tests Test 09/08/17 04:35 White Blood Count 8.3 K/UL (4.8-10.8) Red Blood Count 4.25 M/UL (4.20-5.40) Hemoglobin 9.8 G/DL (12.0-16.0) L Hematocrit 36.3 % (37.0-47.0) L Mean Corpuscular Volume 85 FL (80-99) Mean Corpuscular Hemoglobin 23.0 PG (27.0-31.0) L Mean Corpuscular Hemoglobin Concent 26.9 G/DL (32.0-36.0) L Red Cell Distribution Width 22.4 % (11.6-14.8) H Platelet Count 275 K/UL (150-450) Mean Platelet Volume 6.0 FL (6.5-10.1) L Neutrophils (%) (Auto) 42.9 % (45.0-75.0) L Lymphocytes (%) (Auto) 38.9 % (20.0-45.0) Monocytes (%) (Auto) 13.5 % (1.0-10.0) H Eosinophils (%) (Auto) 2.8 % (0.0-3.0) Basophils (%) (Auto) 1.9 % (0.0-2.0) Sodium Level 138 MMOL/L (136-145) Potassium Level 3.6 MMOL/L (3.5-5.1) Chloride Level 97 MMOL/L (98-107) L Carbon Dioxide Level 36 MMOL/L (21-32) H Anion Gap 5 mmol/L (5-15) Blood Urea Nitrogen 15 mg/dL (7-18) Creatinine 1.0 MG/DL (0.55-1.30) Estimat Glomerular Filtration Rate > 60 mL/min (>60) Glucose Level 216 MG/DL (74-106) H Calcium Level 8.9 MG/DL (8.5-10.1) Total Bilirubin 0.5 MG/DL (0.2-1.0) Aspartate Amino Transf (AST/SGOT) 20 U/L (15-37) Alanine Aminotransferase (ALT/SGPT) 56 U/L (12-78) Alkaline Phosphatase 73 U/L (46-116) Pro-B-Type Natriuretic Peptide 125 pg/mL (0-125) Total Protein 7.3 G/DL (6.4-8.2) Albumin 2.5 G/DL (3.4-5.0) L Globulin 4.8 g/dL Albumin/Globulin Ratio 0.5 (1.0-2.7) L Digoxin Level 0.6 NG/ML (0.9-2.0) L Objective HEENT: No JVD LUNGS: Decreased breath sounds. CARDIOVASCULAR: Regular S1 and S2 with no gallop. ABDOMEN: Morbidly obese. EXTREMITIES: 2+ pitting edema. DIANDRA CUMMINGS Sep 08, 2017 16:08
--- NOTE | 2017-09-08 18:20 | Pulmonology Progress Note ---
Assessment/Plan Problems: (1) Acute respiratory failure with hypoxia and hypercapnia (2) Hypercapnia (3) Hepatitis B core antibody positive Assessment/Plan feelig better check sputum cultures watch bun/creatinine titrate fio2 to sat of 92% dvt prophylaxis. dc to nursign home Subjective ROS Limited/Unobtainable: No Constitutional: Reports: no symptoms HEENT: Repors: no symptoms Allergies: Coded Allergies: No Known Allergies (Unverified , 06/01/17) Objective Last 24 Hour Vital Signs Date Time Temp Pulse Resp B/P (MAP) Pulse Ox O2 Delivery O2 Flow Rate FiO2 09/08/17 16:00 98.3 19 128/62 96 Nasal Cannula 2.0 09/08/17 14:15 79 18 98 Nasal Cannula 2.0 28 09/08/17 14:00 80 18 97 Nasal Cannula 2.0 28 09/08/17 12:00 98.0 78 19 107/50 97 Nasal Cannula 2.0 09/08/17 12:00 81 09/08/17 08:16 85 103/53 09/08/17 08:15 85 09/08/17 08:00 85 09/08/17 08:00 98.3 18 103/53 95 Nasal Cannula 2.0 09/08/17 07:35 88 18 97 Nasal Cannula 2.0 28 09/08/17 07:28 98 Nasal Cannula 2.0 28 09/08/17 07:27 Nasal Cannula 2.0 28 09/08/17 07:24 84 18 98 Nasal Cannula 2.0 28 09/08/17 04:00 97.7 68 20 109/72 99 Nasal Cannula 2.0 09/08/17 04:00 77 09/08/17 01:13 91 18 97 Nasal Cannula 2.0 28 09/08/17 01:05 88 18 96 Nasal Cannula 2.0 28 09/08/17 00:00 98.0 94 20 122/74 99 Nasal Cannula 2.0 09/08/17 00:00 90 09/07/17 20:00 2.0 09/07/17 20:00 90 09/07/17 20:00 98.4 84 20 105/64 98 Nasal Cannula 2.0 09/07/17 19:16 83 18 99 Nasal Cannula 2.0 28 09/07/17 19:04 77 16 97 Nasal Cannula 2.0 28 09/07/17 19:03 Nasal Cannula 3.0 32 09/07/17 19:03 98 Nasal Cannula 3.0 32 Intake and Output 09/07/17 09/08/17 19:00 07:00 Intake Total 1100 ml 490 ml Output Total 2000 ml 1000 ml Balance -900 ml -510 ml Intake Oral 600 ml 240 ml IV Total 500 ml 250 ml Output Urine Total 2000 ml 1000 ml # Bowel Movements 1 General Appearance: WD/WN HEENT: normocephalic Respiratory/Chest: chest wall non-tender, lungs clear Breasts: no masses Cardiovascular: normal rate Abdomen: normal bowel sounds, soft, non tender Genitourinary: normal external genitalia Extremities: no clubbing Neurologic/Psychiatric: no motor/sensory deficits, normal mood/affect Laboratory Tests 09/08/17 04:35: White Blood Count 8.3, Red Blood Count 4.25, Hemoglobin 9.8L, Hematocrit 36.3L, Mean Corpuscular Volume 85, Mean Corpuscular Hemoglobin 23.0L, Mean Corpuscular Hemoglobin Concent 26.9L, Red Cell Distribution Width 22.4H, Platelet Count 275 , Mean Platelet Volume 6.0L, Neutrophils (%) (Auto) 42.9L, Lymphocytes (%) (Auto ) 38.9, Monocytes (%) (Auto) 13.5H, Eosinophils (%) (Auto) 2.8, Basophils (%) ( Auto) 1.9, Sodium Level 138, Potassium Level 3.6, Chloride Level 97L, Carbon Dioxide Level 36H, Anion Gap 5, Blood Urea Nitrogen 15, Creatinine 1.0, Estimat Glomerular Filtration Rate > 60, Glucose Level 216H, Calcium Level 8.9, Total Bilirubin 0.5, Aspartate Amino Transf (AST/SGOT) 20, Alanine Aminotransferase ( ALT/SGPT) 56, Alkaline Phosphatase 73, Pro-B-Type Natriuretic Peptide 125, Total Protein 7.3, Albumin 2.5L, Globulin 4.8, Albumin/Globulin Ratio 0.5L, Digoxin Level 0.6L Current Medications Medications (Trade) Dose Ordered Sig/Felipe Route PRN Reason Start Time Stop Time Status Last Admin Dose Admin Acetaminophen (Tylenol) 650 mg Q4H PRN ORAL Mild Pain/Temp > 100.5 09/05/17 10:00 10/05/17 09:59 09/08/17 17:25 Albuterol/ Ipratropium (Albuterol/ Ipratropium) 3 ml Q4HRT PRN HHN Shortness of Breath 09/04/17 10:30 09/09/17 10:29 Albuterol/ Ipratropium (Albuterol/ Ipratropium) 3 ml Q6HRT HHN 09/05/17 19:00 09/10/17 18:59 09/08/17 14:00 Allopurinol (Zyloprim) 300 mg DAILY NG 09/05/17 09:00 10/05/17 08:59 09/08/17 08:15 Clotrimazole (Lotrimin) 1 applic THREE TIMES A DAY TOPIC 09/05/17 09:00 10/05/17 08:59 09/08/17 17:11 Dextrose (Dextrose 50%) STAT PRN IV Hypoglycemia 09/05/17 15:00 10/05/17 14:59 Digoxin (Lanoxin) 0.125 mg DAILY ORAL 09/08/17 09:00 10/08/17 08:59 09/08/17 08:15 Furosemide (Lasix) 40 mg Q24H IV 09/07/17 14:00 10/07/17 13:59 09/08/17 14:06 Guaifenesin (Mucinex ER) 1,200 mg TWICE A DAY ORAL 09/05/17 14:00 10/05/17 13:59 09/08/17 17:10 Guaifenesin (Robitussin) 100 mg Q4H PRN ORAL For Cough 09/05/17 14:00 10/05/17 13:59 09/06/17 05:39 Heparin Sodium (Porcine) (Heparin 5000 units/ml) 5,000 units EVERY 12 HOURS SUBQ 09/04/17 21:00 10/04/17 20:59 09/05/17 21:00 Insulin Aspart (NovoLOG) BEFORE MEALS AND HS SUBQ 09/05/17 16:30 10/05/17 16:29 09/08/17 16:44 Metoprolol Succinate (Toprol XL) 25 mg DAILY ORAL 09/08/17 09:00 10/08/17 08:59 09/08/17 08:16 Ondansetron HCl (Zofran) 4 mg Q6H PRN IVP Nausea & Vomiting 09/04/17 10:30 10/04/17 10:29 Polyethylene Glycol (Miralax) 17 gm DAILYPRN PRN ORAL Constipation 09/04/17 10:30 10/04/17 10:29 Vancomycin HCl (Vanco rx to dose) 1 ea DAILY PRN MISC Per rx protocol 09/07/17 14:30 10/07/17 14:29 Vancomycin HCl/ Dextrose 250 ml @ 125 mls/hr Q12HR@0300,1500 IVPB 09/07/17 15:00 09/12/17 14:59 09/08/17 14:07 DOMONIQUE DOBBS Sep 08, 2017 18:20
--- NOTE | 2017-09-09 14:28 | Discharge Summary ---
Discharge Summary Hospital Course Date of Admission Sep 04, 2017 at 07:09 Date of Discharge Sep 08, 2017 at 19:10 Admitting Diagnosis chf,hypercapnea Reason for Hospitalization: CHF exacerbation, acute respiratory failure HPI 57y/o female with pmh of morbid obesity, HTN, asthma, DM2, GERD, likely obesity hypoventilation syndrome and recent admission for septic shock and acute respiratory failure requiring intubation who presents from SNF with SOB and cough. Pt recently discharged on 09/01/17 after hospital admission for septic shock c/b shock liver, KASHIF and respiratory failure requiring intubation. Pt was extubated on 08/26/17 and respiratory status remained stable on NC for several days prior to discharge. She also complete course of antibiotics while in hospital. Pt states for the last few days she noted worsening cough, SOB and generalized weakness, sleepiness. She has not been getting her nebulizer treatments regularly at [facility]. She denies f/c, n/v, d/c, chest pain. In ED, pt noted to acute respiratory acidosis w/ pCO2 in 90s. Pt placed on BiPAP. CXR w/ concern for fluid overload. Given lasix IV. Consultations Cardiology, Pulmonology, Infectious disease Hospital Course Pt was admitted to [facility] on continuous BiPAP. She was started on diuresis with lasix 40mg IV which she responded well to. She was also given IV antibiotics for possible pneumonia per ID. Her symptoms slowly improved. She was recommended to use her BiPAP at bedtime and as needed given likely BASHIR and obesity hypoventilation syndrome. Once respiratory status improved, pt was discharged back to SNF with lasix PO. ID recommended vancomycin IV to ocmplete 7 days for possible MRSA pneumonia. Discharge physical exam: General: awake, alert, morbidly obese Head: normocephalic, without obvious abnormality, atraumatic Eyes: conjunctivae/corneas clear. PERRL, EOM's intact Throat: lips, mucosa, and tongue normal. MMM Neck: supple, symmetrical, trachea midline, and no JVD Lungs: clear to auscultation bilaterally, decreased breath sounds Heart: regular rate and rhythm, S1, S2 normal, no murmur, click, rub or gallop Abdomen: soft, non-tender, non-distended, bowel sounds normal Extremities: extremities normal, atraumatic, no cyanosis or edema Pulses: 2+ and symmetric Skin: skin color, texture, turgor normal; no rashes or lesions Neurologic: grossly intact Discharge diagnoses: (1) Acute on chronic diastolic (congestive) heart failure ICD Codes: I50.33 - Acute on chronic diastolic (congestive) heart failure SNOMED: 40249297, 696897308 (2) Acute respiratory failure with hypoxia and hypercapnia ICD Codes: J96.01 - Acute respiratory failure with hypoxia; J96.02 - Acute respiratory failure with hypercapnia SNOMED: 10953026, 65371707, 324060545 (3) HCAP 2/2 MRSA (4) Likely obesity hypoventilation syndrome (5) Morbid obesity ICD Codes: E66.01 - Morbid (severe) obesity due to excess calories SNOMED: 163151045, 43254032642704 (6) Asthma ICD Codes: J45.909 - Unspecified asthma, uncomplicated SNOMED: 589018751 (7) HTN (hypertension) ICD Codes: I10 - Essential (primary) hypertension SNOMED: 93203742 (8) DM2 (diabetes mellitus, type 2) ICD Codes: E11.9 - Type 2 diabetes mellitus without complications SNOMED: 70788013 (9) GERD (gastroesophageal reflux disease) ICD Codes: K21.9 - Gastro-esophageal reflux disease without esophagitis SNOMED: 656907292 (10) H/O supraventricular tachycardia ICD Codes: Z86.79 - Personal history of other diseases of the circulatory system SNOMED: 209851662577772 (11) Hypomagnesemia ICD Codes: E83.42 - Hypomagnesemia SNOMED: 241760865 (12) Hematuria ICD Codes: R31.9 - Hematuria, unspecified SNOMED: 15156193 (13) Vaginal bleeding ICD Codes: N93.9 - Abnormal uterine and vaginal bleeding, unspecified SNOMED: 822571254, 948182589 (14) Hypokalemia ICD Codes: E87.6 - Hypokalemia Discharge Medications New Medications: Furosemide* (Lasix*) 40 Mg Tablet 40 MG ORAL DAILY for 30 Days, #30 TAB Ipratropium/Albuterol Sulfate (DuoNeb 0.5-3(2.5)mg/3ml) 3 Ml Ampul.neb 3 ML HHN Q4HR PRN for 30 Days, #30 EA 3 Refills SOB, wheezing Clotrimazole* (Lotrimin*) 15 Gm Cream..g. 1 APPLIC TOPIC THREE TIMES A DAY for 30 Days, GM Metoprolol Succinate* (Metoprolol Succinate*) 25 Mg Tab.er.24h 25 MG ORAL DAILY for 30 Days, #30 TAB 3 Refills [[facility] pharmacy to dose] () 1 EA MISC 1 EA MISC DAILY PRN for 6 Days, #6 Continued Medications: Acetaminophen* (Tylenol Extra Strength*) 500 Mg Tablet 500 MG ORAL Q12HR PRN for Mild Pain/Temp > 100.5, TAB 0 Refills Albuterol Sulfate* (Albuterol Sulfate Hhn*) 2.5 Mg/3 Ml Vial.neb 3 ML INH Q4H PRN for Shortness of Breath, EA Allopurinol* (Allopurinol*) 100 Mg Tablet 300 MG NG DAILY for 90 Days, TAB Aspirin* (Aspirin*) 81 Mg Tab.chew 81 MG GT DAILY for 90 Days, TAB Atorvastatin Calcium* (Lipitor*) 20 Mg Tablet 20 MG GT BEDTIME for 90 Days, TAB Azelastine Hcl (Azelastine Hcl) 6 Ml Drops 6 ML OP, ML Capsaicin (Capsaicin) 42.5 Gm Cream..g. 42.5 GM TP, GM Cyanocobalamin (Vitamin B-12) (Vitamin B12) 2,500 Mcg Tablet 2500 MCG PO, TAB Digoxin* (Lanoxin*) 250 Mcg Tablet 0.25 MG ORAL DAILY for 30 Days, TAB Diphenoxylate Hcl/Atropine (Lomotil Tablet) 1 Each Tablet 2 TAB ORAL PRN for Diarrhea, #30 TAB 0 Refills Docusate Sodium* (Docusil*) 100 Mg Capsule 100 MG ORAL TWICE A DAY, CAP Ferrous Sulfate (Feosol) 325 Mg Tablet 325 MG ORAL THREE TIMES A DAY for 30 Days, TAB Fluticasone Propionate (Flonase Allergy Relief) 9.9 Ml [place].susp 9.9 ML NS Gabapentin* (Gabapentin*) 600 Mg Tablet 600 MG ORAL QHS, TAB Glipizide (Glipizide Xl) 10 Mg Tab.er.24 10 MG ORAL DAILY, #30 TAB 0 Refills Guaifenesin (Mucinex) 600 Mg Tab.er.12h 1200 MG ORAL TWICE A DAY for 14 Days, TAB Guaifenesin* (Guaifenesin) 100 Mg/5 Ml Liquid 200 MG ORAL Q4H PRN for 30 Days, ML Guar Gum (Nutrisource Fiber) 1 Each Packet 1 EACH PO, PACKET Insulin Glargine (Lantus) 100 Unit/1 Ml Insuln.pen 21 SUBQ BID, #1 EA 0 Refills Insulin Regular, Human (Humulin R) 100 Unit/1 Ml Vial 0 SUBQ, VIAL Ipratropium/Albuterol Sulfate (DuoNeb 0.5-3(2.5)mg/3ml) 3 Ml Ampul.neb 3 ML HHN Q6HR for 14 Days, EA Lactobacillus Acidophilus (Acidophilus) 1 Each Capsule 1 EACH PO BID, CAP Loratadine (Loratadine) 10 Mg Capsule 10 MG PO, CAP Pantoprazole* (Protonix*) 40 Mg Tablet.dr 40 MG ORAL DAILY, TAB Prochlorperazine (Compazine*) 10 Mg Tablet 10 MG ORAL Q8HR PRN for Nausea & Vomiting, TAB Discontinued Medications: Clonidine Hcl* (Catapres*) 0.1 Mg Tablet 0.1 MG ORAL EVERY 6 HOURS, TAB Metoprolol Tartrate (Metoprolol Tartrate) 25 Mg Tablet 12.5 MG PO BID for 90 Days, TAB Discharge Condition Upon Discharge: stable Discharge Disposition Patient was discharged to SNF/Subacute Facility(03) Discharge Diagnoses: Discharge Instructions Discharge Instructions Follow up with: PCP Activity: resume normal activities Cassie Bolivar M.D. Sep 09, 2017 14:28
--- NOTE | 2017-09-14 13:58 | Cardiology Report ---
APPROVED REPORT EKG Measurement Heart [id number] Normal sinus rhythm Abnormal ECG
== END 2017-09-08 19:10 | DRG 291 ==
LOC: EDBD 06:28 → EMR 07:00 → 2W 07:09 → EDBEDREQ 07:19 → EDBEDREQSVC 08:44 → EDBEDREQ 08:45 → 2W 21:58
PROC: 5A09357 Assistance with Respiratory Ventilation, Less than 24 Consecutive Hours, Continuous Positive Airway Pressure (ICD-10-PCS; principal; 2017-09-04)
DX: I50.33 Acute on chronic diastolic (congestive) heart failure (principal); J96.01 Acute respiratory failure with hypoxia; J96.02 Acute respiratory failure with hypercapnia; J15.212 Pneumonia due to Methicillin resistant Staphylococcus aureus; E66.2 Morbid (severe) obesity with alveolar hypoventilation; Z68.44 Body mass index [BMI] 60.0-69.9, adult; I10 Essential (primary) hypertension; I25.10 Atherosclerotic heart disease of native coronary artery without angina pectoris; E11.9 Type 2 diabetes mellitus without complications; K21.9 Gastro-esophageal reflux disease without esophagitis; E83.42 Hypomagnesemia; I25.2 Old myocardial infarction; J44.9 Chronic obstructive pulmonary disease, unspecified; E87.6 Hypokalemia
CPT/HCPCS: 36415; 36600; 71045; 76775; 76856; 80048; 80053; 80069; 80162; 81003; 82550; 82553; 82803; 82962; 83735; 83880; 84484; 85025; 86710; 87040; 87070; 87081; 87181; 87205; 93005; 93306; 94640; 94660; 94664; 94760; 99291; J1815; J7620; J8499

== ENCOUNTER 2017-11-26 10:52 | Inpatient (IN) | payer MEDICARE, MEDICAID ==
[2017-11-26] VITALS (21 sets, daily range): BP systolic 95–150; BP diastolic 54–82
[~2017-11-26] VITALS: Ht 162.6 cm; Wt 192.3 kg
[~2017-11-26 10:52] MED LIST changes: +CLOTRIMAZOLE15 GM TOPIC; +FUROSEMIDE40 MG ORAL; +METOPROLOL SUCC25 MG ORAL; +Vanco pharmacy to dose MISC
[2017-11-26] MEDS ORDERED: Cefepime HCl 2 GM in NS 110 ML IV STA (11:04)
[2017-11-26] MEDS ORDERED: Solu-MEDROL 125mg Inj IVP ONE (11:15)
[2017-11-26] MEDS ORDERED: Ipratropium 0.02% Inh Soln 2.5ml UD HHN ONE ×2 (11:15→12:30)
[2017-11-26] MEDS: Albuterol ud Inhalation HHN SCH ×3 (11:46→12:29)
--- NOTE | 2017-11-26 12:10 | Diagnostic Imaging Report ---
. Indication: Shortness of breath Technique: One view of the chest Comparison: none Findings: There is some patchy consolidation at the right lung base. The heart is enlarged. The pleural spaces remain clear. Impression: Right basilar infiltrate
[2017-11-26] MEDS ORDERED: Etomidate 40mg/20ml Inj IV ONE ×2 (12:30→22:45)
[2017-11-26] MEDS ORDERED: Midazolam for drip 50 MG in NS 90 ML IV ONE (12:30)
[2017-11-26] MEDS ORDERED: Midazolam 2mg/2ml Inj IVP ONE ×3 (12:30→15:00)
[2017-11-26] MEDS ORDERED: Albuterol ud Inhalation HHN ONE (12:30)
[2017-11-26 12:42] LABS: BASOPHILS % (AUTO) 2.1 % (0.0-2.0); EOSINOPHILS % (AUTO) 1.8 % (0.0-3.0); HEMATOCRIT 46.4 % (37.0-47.0); HEMOGLOBIN 13.3 G/DL (12.0-16.0); LYMPHOCYTES % (AUTO) 30.5 % (20.0-45.0); MEAN CORPUSCULAR VOLUME 98 FL (80-99); MONOCYTES % (AUTO) 10.7 % (1.0-10.0); NEUTROPHILS % (AUTO) 54.8 % (45.0-75.0); PLATELET COUNT 241 K/UL (150-450); RED BLOOD COUNT 4.72 M/UL (4.20-5.40); RED CELL DISTRIBUTION WIDTH 17.5 % (11.6-14.8); WHITE BLOOD COUNT 7.1 K/UL (4.8-10.8)
--- NOTE | 2017-11-26 12:51 | Emergency Room Report ---
History of Present Illness General Chief Complaint: Altered Level of Consciousness Source: Patient, EMS Present Illness HPI Paramedics were called to SNF for ALOC. Patient had pinpoint pupils so narcan was given IV. They also assisted ventilations. The patient was somewhat improved after this. Accucheck slightly elevated. H/O COPD, morbid obesity. Recent hospitalization in October for most of month. H/O prior intubation. Patient denies pain. Further history unavailable. D/C diagnoses 09/08/17: Discharge diagnoses: (1) Acute on chronic diastolic (congestive) heart failure ICD Codes: I50.33 - Acute on chronic diastolic (congestive) heart failure SNOMED: 93968439, 998004109 (2) Acute respiratory failure with hypoxia and hypercapnia ICD Codes: J96.01 - Acute respiratory failure with hypoxia; J96.02 - Acute respiratory failure with hypercapnia SNOMED: 24757686, 17550744, 950526912 (3) HCAP 2/2 MRSA (4) Likely obesity hypoventilation syndrome (5) Morbid obesity ICD Codes: E66.01 - Morbid (severe) obesity due to excess calories SNOMED: 265037601, 94082730604137 (6) Asthma ICD Codes: J45.909 - Unspecified asthma, uncomplicated SNOMED: 979705082 (7) HTN (hypertension) ICD Codes: I10 - Essential (primary) hypertension SNOMED: 94001331 (8) DM2 (diabetes mellitus, type 2) ICD Codes: E11.9 - Type 2 diabetes mellitus without complications SNOMED: 02510393 (9) GERD (gastroesophageal reflux disease) ICD Codes: K21.9 - Gastro-esophageal reflux disease without esophagitis SNOMED: 374669963 (10) H/O supraventricular tachycardia ICD Codes: Z86.79 - Personal history of other diseases of the circulatory system SNOMED: 188467068942401 (11) Hypomagnesemia ICD Codes: E83.42 - Hypomagnesemia SNOMED: 294491687 (12) Hematuria ICD Codes: R31.9 - Hematuria, unspecified SNOMED: 86768817 (13) Vaginal bleeding ICD Codes: N93.9 - Abnormal uterine and vaginal bleeding, unspecified SNOMED: 617378012, 624337396 (14) Hypokalemia ICD Codes: E87.6 - Hypokalemia Allergies: Coded Allergies: No Known Allergies (Unverified , 10/23/17) Patient History Limited by: medical condition Past Medical History: see triage record, old chart reviewed Social History Narrative SNF Last Menstrual Period: Post Reviewed Nursing Documentation: PMH: Agreed; PSxH: Agreed Nursing Documentation-PMH Hx Cardiac Problems: Yes - NSTEMI, Anemia, HF Hx Hypertension: Yes Hx Asthma: Yes - Resp Failure Hx COPD: Yes Hx Diabetes: Yes - type 2 Hx Cancer: No Hx Gastrointestinal Problems: Yes Hx Dialysis: Yes Hx Neurological Problems: No - Weakness, Gout Hx Encephalitis: Yes - Metabolic encephalopathy Hx Dizziness: Yes Review of Systems All Other Systems: limited Physical Exam Vital Signs Date Time Temp Pulse Resp B/P (MAP) Pulse Ox O2 Delivery O2 Flow Rate FiO2 11/26/17 10:48 98.1 78 16 133/82 88 Room Air 98.1 Sp02 EP Interpretation: reviewed, abnormal - low as interpreted by me General Appearance: well appearing, lethargic, obese Head: normocephalic Eyes: bilateral eye normal inspection, bilateral eye PERRL ENT: moist mucus membranes Neck: supple Respiratory: wheezing, expiration, inspiration, other - hypopnea Cardiovascular #1: regular rate, rhythm, edema Cardiovascular #2: 2+ radial (L) Gastrointestinal: normal inspection, non tender, no mass, non-distended, decreased bowel sounds, overweight Genitourinary: no CVA tenderness Musculoskeletal: back normal, normal range of motion, no calf tenderness Neurologic: responsive, sensory intact, motor weakness - generalized Psychiatric: depressed affect - and lethargic Skin: warm/dry, cyanosis Procedures Critical Care Time Critical Care Time Total Critical Care Time: 90 min bedside evaluation and treatment excludes procedures (EKG, intubation). Reason for critical care: respiratory failure, repeat evaluations, pneumonia, sedation Possible complications: hypotension, hypertension, PR, shock, arrhythmias, metabolic acidosis, end organ damage, respiratory failure. Interventions: BIPAP, breathing treatments, intubation, sedation, repeat evaluations Course: Patient presented with AMS. Hypopnea treated with BIPAP, breathing treatments, solumedrol. Discuss with patient possible need for intubation. Venous ABG confirms CO2 narcosis and failure of BIPAP. Intubated. Infiltrated noted and antibiotics started. Breathing treatments. Sedation. Patient awake. Increased sedation. Discussion with admitting MD. Sedation still ineffective max versed. Fentanyl added. Patient cooperative and fully alert before fentanyl. Consultations: nursing staff, EMS, respiratory therapist, admitting MD Performed by: Dr. Kapoor Tolerated well condition = critical Intubation Intubation : Consent: Verbal Intubation Method: orotracheal Tube Size (cm): 7.5 - 23 cm teeth Medications: Etomidate, Versed, Other - rocuronium (post intubation) Intubation Complications: no complications, O2 saturation decreased Post Intubation Xray: Yes Attempts: Other - 2 Patient Tolerated: Well Complications: None Progress Initial attempt with #8 unable to pass. Repeat etomidate. Due to anatomy, bougie needed to pass 7.5 tube. Thick sputum beige color. Fighting with biting - oral airway inserted and rocuronium given. Sedation ordered. Medical Decision Making Diagnostic Impression: Primary Impression: Acute respiratory failure with hypoxia and hypercapnia Additional Impressions: Pneumonia Qualified Codes: J18.1 - Lobar pneumonia, unspecified organism COPD exacerbation Morbid obesity ER Course Patient with ALOC. Reported response to narcan questioned as obvious COPD/ hypopnea with bronchospasm. Immediate BIPAP and breathing treatments. VBG with respiratory failure. DDX: COPD, CHF, pneumonia, AMI amongst others. EKG without injury. CXR inc cor, no apparent infiltrates. Based on VBG on BIPAP and increased lethargy, patient Intubated. Sedation ordered. Labs with normal WBC, normal lactate, renal function. Troponin negative. See critical care notes. Post intubation x-ray with infiltrate and antibiotics ordered. Patient requiring multiple evaluations for adequate sedation and re-evaluation. Improved mentation. Patient admitted to ICU to Dr. Edmond, discussed with Dr. Matthews. Laboratory Tests Test 11/26/17 11:04 11/26/17 11:50 11/26/17 12:29 Venous Blood pH Pending Venous Blood Partial Pressure CO2 Pending Venous Blood Partial Pressure O2 Pending Venous Blood HCO3 Pending Venous Blood Total Carbon Dioxide Pending Venous Bld O2 Saturation (Measured) Pending Venous Blood Oxygen Saturation Pending Venous Blood Base Excess Pending Methemoglobin Pending Sodium (Blood Gas) Pending White Blood Count 7.1 K/UL (4.8-10.8) Red Blood Count 4.72 M/UL (4.20-5.40) Hemoglobin 13.3 G/DL (12.0-16.0) Hematocrit 46.4 % (37.0-47.0) Mean Corpuscular Volume 98 FL (80-99) Mean Corpuscular Hemoglobin 28.2 PG (27.0-31.0) Mean Corpuscular Hemoglobin Concent 28.7 G/DL (32.0-36.0) L Red Cell Distribution Width 17.5 % (11.6-14.8) H Platelet Count 241 K/UL (150-450) Mean Platelet Volume 6.9 FL (6.5-10.1) Neutrophils (%) (Auto) 54.8 % (45.0-75.0) Lymphocytes (%) (Auto) 30.5 % (20.0-45.0) Monocytes (%) (Auto) 10.7 % (1.0-10.0) H Eosinophils (%) (Auto) 1.8 % (0.0-3.0) Basophils (%) (Auto) 2.1 % (0.0-2.0) H Prothrombin Time 10.2 SEC (9.30-11.50) Prothrombin Time INR 1.0 (0.9-1.1) PTT 30 SEC (23-33) Sodium Level 139 MMOL/L (136-145) Potassium Level 5.3 MMOL/L (3.5-5.1) H Chloride Level 97 MMOL/L (98-107) L Carbon Dioxide Level 44 MMOL/L (21-32) *H Blood Urea Nitrogen 11 mg/dL (7-18) Creatinine 0.6 MG/DL (0.55-1.30) Estimate Glomerular Filtration Rate > 60 mL/min (>60) Glucose Level 128 MG/DL (74-106) H Lactic Acid Level 0.50 mmol/L (0.66-2.22) L Calcium Level 9.0 MG/DL (8.5-10.1) Total Bilirubin 0.4 MG/DL (0.2-1.0) Aspartate Amino Transferase (AST) 50 U/L (15-37) H Alanine Aminotransferase (ALT) 48 U/L (12-78) Alkaline Phosphatase 64 U/L (46-116) Total Creatine Kinase 110 U/L (26-308) Troponin I 0.014 ng/mL (0.000-0.056) Pro-B-Type Natriuretic Peptide 723 pg/mL (0-125) H Total Protein 8.1 G/DL (6.4-8.2) Albumin 2.7 G/DL (3.4-5.0) L Globulin 5.4 g/dL Albumin/Globulin Ratio 0.5 (1.0-2.7) L Arterial Blood pH 7.420 (7.350-7.450) Arterial Blood Partial Pressure CO2 63.0 mmHg (35.0-45.0) *H Arterial Blood Partial Pressure O2 104.1 mmHg (75.0-100.0) H Arterial Blood HCO3 40.1 mmol/L (22.0-26.0) H Arterial Blood Oxygen Saturation 98.4 % (92.0-98.0) H Arterial Blood Base Excess 12.9 Doroteo Test Positive EKG Diagnostic Results Rate: normal Rhythm: NSR ST Segments: no acute changes - ST inversions septally and inferiorly Rhythm Strip Diag. Results EP Interpretation: yes Rhythm: NSR, no PVC's, no ectopy Chest X-Ray Diagnostic Results Chest X-Ray Diagnostic Results #1: Chest X-Ray Ordered: Yes # of Views/Limited/Complete: 1 View Indication: Shortness of Breath EP Interpretation: Yes Interpretation: no consolidation, no effusion, no pneumothorax, other - cardiomegally Impression: Other Electronically Signed by: Jose Raul Kapoor Chest X-Ray Diagnostic Results #2: Chest X-Ray Ordered: Yes # of Views/Limited/Complete: 1 View Indication: Other EP Interpretation: Yes Interpretation: no effusion, no pneumothorax, other - R infiltrate - ET good placement Impression: Other Electronically Signed by: Jose Raul Kapoor MD Last Vital Signs Date Time Temp Pulse Resp B/P (MAP) Pulse Ox O2 Delivery O2 Flow Rate FiO2 11/26/17 21:12 88 23 40 11/26/17 19:00 134/57 99 Mechanical Ventilator 11/26/17 18:19 98.0 98.0 Status: improved Disposition: ADMITTED INPATIENT Condition: Critical Referrals: NON PHYSICIAN (PCP) Jose Raul Kapoor M.D. Nov 26, 2017 12:51
[2017-11-26 12:57] LABS: BLOOD UREA NITROGEN 11 mg/dL (7-18); CARBON DIOXIDE 44 MMOL/L (21-32); CHLORIDE 97 MMOL/L (98-107); CREATININE 0.6 MG/DL (0.55-1.30); POTASSIUM 5.3 MMOL/L (3.5-5.1); SODIUM 139 MMOL/L (136-145)
[2017-11-26 13:11] LABS: ALANINE AMINOTRANSFERASE 48 U/L (12-78); ALBUMIN 2.7 G/DL (3.4-5.0); ALBUMIN/GLOBULIN RATIO 0.5 (1.0-2.7); ALKALINE PHOSPHATASE 64 U/L (46-116); ASPARTATE AMINO TRANSFERASE 50 U/L (15-37); BILIRUBIN,TOTAL 0.4 MG/DL (0.2-1.0); CREATINE KINASE 110 U/L (26-308)
--- NOTE | 2017-11-26 13:56 | Diagnostic Imaging Report ---
Indication: Post intubation Technique: One view of the chest Comparison: 1 1/2 hours earlier Findings: Interim endotracheal intubation, endotracheal tube tip in good position projecting approximately 4 cm above the lucía. There is slightly less right perihilar consolidation, may indicate improving atelectasis post intubation Impression: Satisfactory endotracheal intubation Decreased right perihilar atelectasis or consolidation
[2017-11-26] MEDS ORDERED: Albuterol/Ipratropium 3ml neb HHN PRN (15:30)
[2017-11-26] MEDS ORDERED: Morphine Sulfate 4mg/ml Inj IVP PRN (15:30)
[2017-11-26] MEDS ORDERED: LORazepam Inj 2mg/ml 1ml IV PRN (15:30)
[2017-11-26] MEDS ORDERED: Nitroglycerin Subl 0.4mg tab SL PRN (15:30)
[2017-11-26] MEDS ORDERED: Solu-MEDROL 125mg Inj ONE (16:22)
[2017-11-26] MEDS ORDERED: Cefepime 2gm ONE (16:23)
[2017-11-26] MEDS ORDERED: Cefepime HCl 2 GM in D5W 110 ML IV STA (16:26)
[2017-11-26] MEDS ORDERED: fentaNYL 100 mcg/2 mL IV ONE (17:15)
--- NOTE | 2017-11-26 18:43 | History and Physical ---
History of Present Illness General Date patient seen: Nov 26, 2017 Time patient seen: 18:43 Reason for Hospitalization: Altered Level of Consciousness, Acute respiratory failure Present Illness HPI 57y/o female with pmh of morbid obesity, HTN, asthma, DM2, GERD, likely obesity hypoventilation syndrome, admission in Aug 2017 for septic shock and acute respiratory failure requiring intubation who presents with ALOC. Per report, pt noted to be altered at SNF, more lethargic, unresponsive. She was noted to have pinpoint pupils so she was given narcan w/ slight response. In ER, pt was trialed on BiPAP but had respiratory acidosis despite BIPAP so she was emergently intubated. History limited as pt intubated, sedated. Allergies: Coded Allergies: No Known Allergies (Unverified , 06/01/17) Medication History Scheduled Allopurinol* (Allopurinol*), 300 MG NG DAILY Aspirin* (Aspirin*), 81 MG GT DAILY Atorvastatin Calcium* (Lipitor*), 20 MG GT BEDTIME Clotrimazole* (Lotrimin*), 1 APPLIC TOPIC THREE TIMES A DAY Digoxin* (Lanoxin*), 0.25 MG ORAL DAILY Docusate Sodium* (Docusil*), 100 MG ORAL TWICE A DAY, (Reported) Ferrous Sulfate (Feosol), 325 MG ORAL THREE TIMES A DAY Furosemide* (Lasix*), 40 MG ORAL DAILY Gabapentin* (Gabapentin*), 600 MG ORAL QHS, (Reported) Glipizide (Glipizide Xl), 10 MG ORAL DAILY, (Reported) Guaifenesin (Mucinex), 1,200 MG ORAL TWICE A DAY Insulin Glargine (Lantus), 21 SUBQ BID, (Reported) Ipratropium/Albuterol Sulfate (DuoNeb 0.5-3(2.5)mg/3ml), 3 ML HHN Q6HR Lactobacillus Acidophilus (Acidophilus), 1 EACH PO BID, (Reported) Metoprolol Succinate* (Metoprolol Succinate*), 25 MG ORAL DAILY Pantoprazole* (Protonix*), 40 MG ORAL DAILY, (Reported) Scheduled PRN Acetaminophen* (Tylenol Extra Strength*), 500 MG ORAL Q12HR PRN for Mild Pain/ Temp > 100.5, (Reported) Albuterol Sulfate* (Albuterol Sulfate Hhn*), 3 ML INH Q4H PRN for Shortness of Breath, (Reported) Diphenoxylate Hcl/Atropine (Lomotil Tablet), 2 TAB ORAL for Diarrhea, (Reported) Guaifenesin* (Guaifenesin), 200 MG ORAL Q4H PRN Ipratropium/Albuterol Sulfate (DuoNeb 0.5-3(2.5)mg/3ml), 3 ML HHN Q4HR PRN Prochlorperazine (Compazine*), 10 MG ORAL Q8HR PRN for Nausea & Vomiting, ( Reported) [Vanco pharmacy to dose], 1 EA MISC DAILY PRN Miscellaneous Medications Azelastine Hcl (Azelastine Hcl), 6 ML OP, (Reported) Capsaicin (Capsaicin), 42.5 GM TP, (Reported) Cyanocobalamin (Vitamin B-12) (Vitamin B12), 2,500 MCG PO, (Reported) Fluticasone Propionate (Flonase Allergy Relief), 9.9 ML NS, (Reported) Guar Gum (Nutrisource Fiber), 1 EACH PO, (Reported) Insulin Regular, Human (Humulin R), 0 SUBQ, (Reported) Loratadine (Loratadine), 10 MG PO, (Reported) Patient History History Provided By: Patient, Medical Record Healthcare decision maker Resuscitation status Advanced Directive on File Yes Past Medical/Surgical History Past Medical/Surgical History: (1) Likely obesity hypoventilation syndrome (2) GERD (gastroesophageal reflux disease) (3) Fatty liver (4) Morbid obesity (5) Chronic diastolic (congestive) heart failure (6) DM2 (diabetes mellitus, type 2) (7) HTN (hypertension) Family History Family History: Patient reports no known family medical history. Social History Social History: (1) lives at [facility] Review of Systems ROS Narrative Unable to obtain as pt intubated and sedated Physical Exam Physical Exam Narrative General: intubated, sedated, morbidly obese Head: normocephalic, without obvious abnormality, atraumatic Eyes: conjunctivae/corneas clear. PERRL, EOM's intact Throat: lips, mucosa, and tongue normal. MMM Neck: supple, symmetrical, trachea midline, and no JVD Lungs: +rhonchi R>L Heart: regular rate and rhythm, S1, S2 normal, no murmur, click, rub or gallop Abdomen: soft, non-tender, non-distended, bowel sounds normal Extremities: extremities normal, atraumatic, no cyanosis, 1+ BLE edema Pulses: 2+ and symmetric Skin: skin color, texture, turgor normal; no rashes or lesions Neurologic: sedated Last 24 Hour Vital Signs Date Time Temp Pulse Resp B/P (MAP) Pulse Ox O2 Delivery O2 Flow Rate FiO2 11/26/17 18:19 98.0 74 18 106/59 100 Mechanical Ventilator 40 98.0 11/26/17 17:53 74 18 106/59 100 Mechanical Ventilator 40 11/26/17 17:26 79 18 40 11/26/17 16:53 98.0 78 20 120/57 100 Mechanical Ventilator 98.0 11/26/17 15:25 84 18 40 11/26/17 14:45 98.0 77 19 99/58 97 Mechanical Ventilator 40 98.0 11/26/17 13:43 78 20 95/61 97 Mechanical Ventilator 40 11/26/17 13:34 86 18 99 Mechanical Ventilator 40 11/26/17 13:19 86 18 98 Mechanical Ventilator 40 11/26/17 13:06 98 20 40 11/26/17 12:44 98.0 88 16 133/82 99 Mechanical Ventilator 40 98.0 11/26/17 12:35 98.1 92 16 122/63 97 Ambu-Bag 98.1 11/26/17 12:31 83 22 98 Bi-pap 40 11/26/17 12:16 83 24 98 Bi-pap 40 11/26/17 12:16 75 22 98 Bi-pap 40 11/26/17 12:01 77 24 97 Bi-pap 40 11/26/17 12:01 77 24 97 Bi-pap 40 11/26/17 11:46 71 23 94 Bi-pap 40 11/26/17 11:43 71 23 Bi-pap 40 11/26/17 11:36 71 23 94 Facial 40 11/26/17 10:48 98.1 78 16 133/82 88 Room Air 98.1 Laboratory Tests Test 11/26/17 11:04 11/26/17 11:50 11/26/17 12:29 Venous Blood pH Pending Venous Blood Partial Pressure CO2 Pending Venous Blood Partial Pressure O2 Pending Venous Blood HCO3 Pending Venous Blood Total Carbon Dioxide Pending Venous Bld O2 Saturation (Measured) Pending Venous Blood Oxygen Saturation Pending Venous Blood Base Excess Pending Methemoglobin Pending Sodium (Blood Gas) Pending White Blood Count 7.1 K/UL (4.8-10.8) Red Blood Count 4.72 M/UL (4.20-5.40) Hemoglobin 13.3 G/DL (12.0-16.0) Hematocrit 46.4 % (37.0-47.0) Mean Corpuscular Volume 98 FL (80-99) Mean Corpuscular Hemoglobin 28.2 PG (27.0-31.0) Mean Corpuscular Hemoglobin Concent 28.7 G/DL (32.0-36.0) L Red Cell Distribution Width 17.5 % (11.6-14.8) H Platelet Count 241 K/UL (150-450) Mean Platelet Volume 6.9 FL (6.5-10.1) Neutrophils (%) (Auto) 54.8 % (45.0-75.0) Lymphocytes (%) (Auto) 30.5 % (20.0-45.0) Monocytes (%) (Auto) 10.7 % (1.0-10.0) H Eosinophils (%) (Auto) 1.8 % (0.0-3.0) Basophils (%) (Auto) 2.1 % (0.0-2.0) H Prothrombin Time 10.2 SEC (9.30-11.50) Prothromb Time International Ratio 1.0 (0.9-1.1) Activated Partial Thromboplast Time 30 SEC (23-33) Sodium Level 139 MMOL/L (136-145) Potassium Level 5.3 MMOL/L (3.5-5.1) H Chloride Level 97 MMOL/L (98-107) L Carbon Dioxide Level 44 MMOL/L (21-32) *H Blood Urea Nitrogen 11 mg/dL (7-18) Creatinine 0.6 MG/DL (0.55-1.30) Estimat Glomerular Filtration Rate > 60 mL/min (>60) Glucose Level 128 MG/DL (74-106) H Lactic Acid Level 0.50 mmol/L (0.66-2.22) L Calcium Level 9.0 MG/DL (8.5-10.1) Total Bilirubin 0.4 MG/DL (0.2-1.0) Aspartate Amino Transf (AST/SGOT) 50 U/L (15-37) H Alanine Aminotransferase (ALT/SGPT) 48 U/L (12-78) Alkaline Phosphatase 64 U/L (46-116) Total Creatine Kinase 110 U/L (26-308) Troponin I 0.014 ng/mL (0.000-0.056) Pro-B-Type Natriuretic Peptide 723 pg/mL (0-125) H Total Protein 8.1 G/DL (6.4-8.2) Albumin 2.7 G/DL (3.4-5.0) L Globulin 5.4 g/dL Albumin/Globulin Ratio 0.5 (1.0-2.7) L Arterial Blood pH 7.420 (7.350-7.450) Arterial Blood Partial Pressure CO2 63.0 mmHg (35.0-45.0) *H Arterial Blood Partial Pressure O2 104.1 mmHg (75.0-100.0) H Arterial Blood HCO3 40.1 mmol/L (22.0-26.0) H Arterial Blood Oxygen Saturation 98.4 % (92.0-98.0) H Arterial Blood Base Excess 12.9 Doroteo Test Positive Height (Feet): 5 Height (Inches): 5.00 Weight (Pounds): 420 Medications Current Medications Medications (Trade) Dose Ordered Sig/Felipe Route PRN Reason Start Time Stop Time Status Last Admin Dose Admin Acetaminophen (Tylenol) 650 mg Q4H PRN ORAL T>100.5 11/26/17 15:30 12/26/17 15:29 Albuterol/ Ipratropium (Albuterol/ Ipratropium) 3 ml Q4H PRN HHN Shortness of Breath 11/26/17 15:30 12/01/17 15:29 Allopurinol (Allopurinol) 300 mg DAILY NG 11/27/17 09:00 12/27/17 08:59 Dextrose (Dextrose 50%) 25 ml STAT PRN IV Hypoglycemia 11/26/17 15:45 12/26/17 15:44 Dextrose (Dextrose 50%) 50 ml STAT PRN IV Hypoglycemia 11/26/17 15:45 12/26/17 15:44 Dextrose/Sodium Chloride 1,000 ml @ 75 mls/hr [id number] IV 11/26/17 18:30 12/26/17 18:29 Digoxin (Lanoxin) 0.25 mg DAILY ORAL 11/27/17 09:00 12/27/17 08:59 Heparin Sodium (Porcine) (Heparin 5000 units/ml) 5,000 units EVERY 12 HOURS SUBQ 11/26/17 21:00 12/26/17 20:59 Insulin Aspart (NovoLOG) BEFORE MEALS AND HS SUBQ 11/26/17 21:00 12/26/17 20:59 Lorazepam (Ativan 2mg/ml 1ml) 2 mg Q2H PRN IV agitation 11/26/17 15:30 12/03/17 15:29 Morphine Sulfate (Morphine Sulfate) 4 mg Q4H PRN IVP Severe Pain (Pain Scale 7-10) 11/26/17 15:30 12/03/17 15:29 Nitroglycerin (Ntg) 0.4 mg Q5M PRN SL Prn Chest Pain 11/26/17 15:30 12/26/17 15:29 Ondansetron HCl (Zofran) 4 mg Q6H PRN IVP Nausea & Vomiting 11/26/17 15:30 12/26/17 15:29 Assessment/Plan Problem List: (1) Severe sepsis ICD Codes: A41.9 - Sepsis, unspecified organism; R65.20 - Severe sepsis without septic shock SNOMED: 01598350 (2) Acute respiratory failure with hypoxia and hypercapnia ICD Codes: J96.01 - Acute respiratory failure with hypoxia; J96.02 - Acute respiratory failure with hypercapnia SNOMED: 22673192, 05387749, 565426504 (3) Aspiration pnemonia vs HCAP (4) Acute toxic metabolic encephalopathy (5) Likely obesity hypoventilation syndrome (6) Hyperkalemia ICD Codes: E87.5 - Hyperkalemia SNOMED: 65524484 (7) Chronic diastolic (congestive) heart failure ICD Codes: I50.32 - Chronic diastolic (congestive) heart failure SNOMED: 43503489, 516321420 (8) DM2 (diabetes mellitus, type 2) ICD Codes: E11.9 - Type 2 diabetes mellitus without complications SNOMED: 37230044 Status: stable Assessment/Plan Admit to ICU Pulm/critical care consulted Cont on vent and wean as tolerated Trend ABG Daily SBTs and sedations holidays Monitor hemodynamics. No indication for pressors at this time ID consulted Empiric vanco and zosyn for aspiration pneumonia vs HCAP (CXR w/ RLL infiltrate) F/u blood cultures Check resp culture LESTER NPO for now IVFs Monitor CBC, BMP Pain control, bowel regimen Supportive care PPI DVT Prophylaxis: SCD, HSQ Code Status: Full Hospital Classification Declaration: Based on this initial evaluation, and depending on the patient's clinical course, I anticipate that this patient will require hospitalization for3-4 days for severe sepsis, respiratory failure and close respiratory/hemodynamic monitoring. At the time of my involvement, the patient's condition was critical with high potential for and/or physiologic deterioration secondary to severe sepsis , encephalopathy, acute respiratory failure as delineated in the note above. On the above date of service, I spent a total of 45 minutes in the ICU evaluating, managing, and providing critical care services to this patient, including time spent documenting these activities, counseling patient/family, and coordinating care. Discussed with PATIENT REGISTRATION CLERK re vent adjustments, ABG results. D /w pulm/critical care weaning of vent. D/w ID re broad-spectrum antibiotics Critical care services performed include: Telemetry Review Hemodynamic measurement interpretation Laboratory data review and interpretation Ventilator setting review, management, and adjustment Discussion of care plans with patient, family, and/or surrogate decision makers Discussion of patient's care with primary medical team, surgical team, and/or consulting service Decision to obtain further radiologic evaluation, after consideration of risk/ benefit ratio Decision to perform invasive procedure, after consideration of risk/benefit ratio Review of most recent microbiology results with assessment and modification of antimicrobial coverage Discussion of patient's code status and further advancement towards the ultimate goals of care Time of note may not reflect time of encounter. Cassie Bolivar M.D. Nov 26, 2017 18:43
[2017-11-26] MEDS ORDERED: [UNRECOGNIZED DRUG - REMARK] MISC PRN (18:45)
[2017-11-26] MEDS: D5 1/2NS 1,000 ML IV SCH (18:46)
[2017-11-26] MEDS ORDERED: Midazolam/D5W 100ml 100 ML IVPB PRN (19:00)
[2017-11-26] MEDS ORDERED: Acetaminophen 650mg/20.3ml NG SCH (19:15)
[2017-11-26] MEDS: MIDAZOLAM FOR DRIP IV SCH (20:19)
[2017-11-26] MEDS: D5W IV SCH (20:19)
[2017-11-26] MEDS ORDERED: Vancomycin 2 GM in D5W 500ml 550 ML IVPB SCH (21:00)
[2017-11-26] MEDS: Piperacillin/Tazobactam 4.5 GM in D5W 110 ML IVPB SCH (21:26)
[2017-11-26] MEDS: Heparin 5000 units/ml inj SUBQ SCH (21:29)
[2017-11-26] MEDS: NovoLOG Insulin Flexpen SUBQ SCH (21:54)
[2017-11-26] MEDS ORDERED: Zemuron 50mg/5ml Inj IV ONE (22:45)
[2017-11-27] VITALS (49 sets, daily range): BP systolic 101–155; BP diastolic 51–70
--- NOTE | 2017-11-27 00:01 | Diagnostic Imaging Report ---
APPROVED REPORT CPT Code: 48551 Vascular Symptoms Comments: ALTERED LOC. CAROTID (BILATERAL) - Imaging reveals no significant plaque within the right and left extracranial carotid arteries. The Doppler spectral flow analysis is within normal limits throughout the extracranial carotid arteries bilaterally. VERTEBRAL- The vertebral arteries are within normal limits.
[2017-11-27] MEDS: MIDAZOLAM FOR DRIP IV SCH (00:58)
[2017-11-27] MEDS: D5W IV SCH (00:58)
[2017-11-27] MEDS: Piperacillin/Tazobactam 4.5 GM in D5W 110 ML IVPB SCH ×3 (03:52→20:22)
[2017-11-27] MEDS ORDERED: Vancomycin 1500mg IVPB SCH (04:00)
[2017-11-27 06:09] LABS: BASOPHILS % (AUTO) 0.5 % (0.0-2.0); HEMATOCRIT 42.6 % (37.0-47.0); HEMOGLOBIN 12.9 G/DL (12.0-16.0); LYMPHOCYTES % (AUTO) 37.4 % (20.0-45.0); MEAN CORPUSCULAR VOLUME 94 FL (80-99); MONOCYTES % (AUTO) 9.4 % (1.0-10.0); NEUTROPHILS % (AUTO) 52.8 % (45.0-75.0); PLATELET COUNT 246 K/UL (150-450); RED BLOOD COUNT 4.53 M/UL (4.20-5.40); RED CELL DISTRIBUTION WIDTH 16.4 % (11.6-14.8); WHITE BLOOD COUNT 10.4 K/UL (4.8-10.8)
[2017-11-27 06:25] LABS: ALANINE AMINOTRANSFERASE 46 U/L (12-78); ALBUMIN 2.6 G/DL (3.4-5.0); ALKALINE PHOSPHATASE 58 U/L (46-116); ASPARTATE AMINO TRANSFERASE 36 U/L (15-37); BILIRUBIN,DIRECT 0.1 MG/DL (0.0-0.3); BILIRUBIN,TOTAL 0.5 MG/DL (0.2-1.0); LACTATE DEHYDROGENASE 355 U/L (81-234); PHOSPHORUS 1.6 MG/DL (2.5-4.9)
[2017-11-27] MEDS: NovoLOG Insulin Flexpen SUBQ SCH ×4 (06:39→20:55)
[2017-11-27 06:57] LABS: INR 1.1 (0.9-1.1)
[2017-11-27 07:40] LABS: ALANINE AMINOTRANSFERASE 45 U/L (12-78); ALBUMIN 2.6 G/DL (3.4-5.0); ALBUMIN/GLOBULIN RATIO 0.5 (1.0-2.7); ALKALINE PHOSPHATASE 56 U/L (46-116); ANION GAP 11 mmol/L (5-15); ASPARTATE AMINO TRANSFERASE 37 U/L (15-37); BILIRUBIN,TOTAL 0.5 MG/DL (0.2-1.0); BLOOD UREA NITROGEN 14 mg/dL (7-18); CALCIUM 9.2 MG/DL (8.5-10.1); CARBON DIOXIDE 31 MMOL/L (21-32); CHLORIDE 96 MMOL/L (98-107); CREATININE 1.1 MG/DL (0.55-1.30); POTASSIUM 3.7 MMOL/L (3.5-5.1); SODIUM 138 MMOL/L (136-145)
[2017-11-27] MEDS: D5 1/2NS 1,000 ML IV SCH ×2 (08:35→22:58)
[2017-11-27] MEDS: Heparin 5000 units/ml inj SUBQ SCH ×2 (08:38→20:53)
--- NOTE | 2017-11-27 10:35 | Consultation ---
History of Present Illness General Date patient seen: Nov 27, 2017 Chief Complaint: Altered Level of Consciousness Present Illness HPI 57 year old female with hx of morbid obesity, COPD, DM, HTN, care home resident brought in by paramedics with CC of ALOC. Patient had pinpoint pupils so narcan was given IV by paramedics. The patient was somewhat improved after Narcan. On arrival to ER, pt was in respiratory failure and got intubated by ER physician and transferred to ICU. Allergies: Coded Allergies: No Known Allergies (Unverified , 06/01/17) Medication History Scheduled Allopurinol* (Allopurinol*), 300 MG NG DAILY Aspirin* (Aspirin*), 81 MG GT DAILY Atorvastatin Calcium* (Lipitor*), 20 MG GT BEDTIME Clotrimazole* (Lotrimin*), 1 APPLIC TOPIC THREE TIMES A DAY Digoxin* (Lanoxin*), 0.25 MG ORAL DAILY Docusate Sodium* (Docusil*), 100 MG ORAL TWICE A DAY, (Reported) Ferrous Sulfate (Feosol), 325 MG ORAL THREE TIMES A DAY Furosemide* (Lasix*), 40 MG ORAL DAILY Gabapentin* (Gabapentin*), 600 MG ORAL QHS, (Reported) Glipizide (Glipizide Xl), 10 MG ORAL DAILY, (Reported) Guaifenesin (Mucinex), 1,200 MG ORAL TWICE A DAY Insulin Glargine (Lantus), 21 SUBQ BID, (Reported) Ipratropium/Albuterol Sulfate (DuoNeb 0.5-3(2.5)mg/3ml), 3 ML HHN Q6HR Lactobacillus Acidophilus (Acidophilus), 1 EACH PO BID, (Reported) Metoprolol Succinate* (Metoprolol Succinate*), 25 MG ORAL DAILY Pantoprazole* (Protonix*), 40 MG ORAL DAILY, (Reported) Scheduled PRN Acetaminophen* (Tylenol Extra Strength*), 500 MG ORAL Q12HR PRN for Mild Pain/ Temp > 100.5, (Reported) Albuterol Sulfate* (Albuterol Sulfate Hhn*), 3 ML INH Q4H PRN for Shortness of Breath, (Reported) Diphenoxylate Hcl/Atropine (Lomotil Tablet), 2 TAB ORAL for Diarrhea, (Reported) Guaifenesin* (Guaifenesin), 200 MG ORAL Q4H PRN Ipratropium/Albuterol Sulfate (DuoNeb 0.5-3(2.5)mg/3ml), 3 ML HHN Q4HR PRN Prochlorperazine (Compazine*), 10 MG ORAL Q8HR PRN for Nausea & Vomiting, ( Reported) [Vanco pharmacy to dose], 1 EA MISC DAILY PRN Miscellaneous Medications Azelastine Hcl (Azelastine Hcl), 6 ML OP, (Reported) Capsaicin (Capsaicin), 42.5 GM TP, (Reported) Cyanocobalamin (Vitamin B-12) (Vitamin B12), 2,500 MCG PO, (Reported) Fluticasone Propionate (Flonase Allergy Relief), 9.9 ML NS, (Reported) Guar Gum (Nutrisource Fiber), 1 EACH PO, (Reported) Insulin Regular, Human (Humulin R), 0 SUBQ, (Reported) Loratadine (Loratadine), 10 MG PO, (Reported) Patient History Healthcare decision maker ramon Ambriz Resuscitation status Full Code Advanced Directive on File No Past Medical/Surgical History Past Medical/Surgical History: (1) Morbid obesity (2) HTN (hypertension) (3) DM2 (diabetes mellitus, type 2) (4) Fatty liver Review of Systems All Other Systems: negative except mentioned in HPI Physical Exam General Appearance: WD/WN Lines, tubes and drains: peripheral HEENT: normocephalic, atraumatic Neck: non-tender, normal alignment Respiratory/Chest: chest wall non-tender, lungs clear Breasts: no masses Cardiovascular/Chest: normal rate Abdomen: normal bowel sounds, non tender Genitourinary/Rectal: normal genital exam, normal rectal exam Skin Exam: normal pigmentation 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 Lymphatic: anterior cervical Last 24 Hour Vital Signs Date Time Temp Pulse Resp B/P (MAP) Pulse Ox O2 Delivery O2 Flow Rate FiO2 11/27/17 08:59 85 18 40 11/27/17 08:36 80 11/27/17 08:30 80 18 114/56 99 Mechanical Ventilator 40 80 11/27/17 08:01 82 18 40 11/27/17 08:00 40 11/27/17 08:00 78 18 113/57 98 Mechanical Ventilator 40 78 4/20/18 07:30 99.2 82 18 117/53 98 Mechanical Ventilator 40 99.2 82 4/20/18 07:00 81 18 117/61 99 Mechanical Ventilator 40 4/20/18 06:30 99.5 80 18 122/57 99 Mechanical Ventilator 40 99.5 4/20/18 06:00 88 18 120/60 99 Mechanical Ventilator 40 4/20/18 06:00 18 4/20/18 05:30 88 18 115/64 99 Mechanical Ventilator 40 4/20/18 05:23 88 18 40 4/20/18 05:00 18 4/20/18 05:00 89 18 113/66 99 Mechanical Ventilator 40 4/20/18 04:30 92 18 125/69 99 Mechanical Ventilator 40 4/20/18 04:00 96 18 122/70 99 Mechanical Ventilator 40 420/18 04:00 40 420/18 04:00 18 420/18 04:00 67 4/20/18 03:30 76 18 114/53 99 Mechanical Ventilator 40 420/18 03:00 76 18 40 420/18 03:00 18 420/18 03:00 77 18 110/52 100 Mechanical Ventilator 40 4/20/18 02:30 72 18 109/53 100 Mechanical Ventilator 40 420/18 02:00 18 420/18 02:00 78 18 112/53 100 Mechanical Ventilator 40 4/20/18 01:30 78 18 133/54 100 Mechanical Ventilator 40 4/20/18 01:26 18 4/20/18 01:06 73 18 40 4/20/18 01:00 72 18 134/51 100 Mechanical Ventilator 40 4/20/18 01:00 18 420/18 00:58 18 4/20/18 00:30 70 18 137/51 100 Mechanical Ventilator 40 4/20/18 00:19 18 4/20/18 00:00 70 18 144/52 100 Mechanical Ventilator 40 4/20/18 00:00 40 420/18 00:00 18 420/18 00:00 67 4/19/18 23:30 68 18 150/56 100 Mechanical Ventilator 40 4/19/18 23:00 18 4/19/18 23:00 67 18 145/55 100 Mechanical Ventilator 40 4/19/18 22:56 67 18 40 4/19/18 22:30 67 18 146/55 100 Mechanical Ventilator 40 11/26/18 22:00 18 11/26/18 22:00 70 18 116/55 100 Mechanical Ventilator 40 11/26/18 21:30 78 18 112/54 99 Mechanical Ventilator 40 11/26/18 21:26 18 419/18 21:12 88 23 40 11/26/18 21:00 18 18 21:00 70 18 115/70 94 Mechanical Ventilator 40 18 20:45 71 18 129/64 97 Mechanical Ventilator 40 18 20:30 66 18 136/56 97 Mechanical Ventilator 40 18 20:19 18 18 20:15 64 18 135/54 99 Mechanical Ventilator 40 18 20:00 69 18 143/60 98 Mechanical Ventilator 40 11/26/18 19:45 66 18 140/57 100 Mechanical Ventilator 40 18 19:30 66 18 136/57 99 Mechanical Ventilator 40 18 19:21 66 18 19:15 66 18 134/57 99 Mechanical Ventilator 40 18 19:00 67 18 40 18 19:00 66 18 134/57 99 Mechanical Ventilator 40 18 18:47 40 18 18:19 98.0 74 18 106/59 100 Mechanical Ventilator 40 98.0 18 18:00 99.9 72 18 124/75 98 Mechanical Ventilator 40 99.9 18 17:53 74 18 106/59 100 Mechanical Ventilator 40 18 17:26 79 18 40 18 16:53 98.0 78 20 120/57 100 Mechanical Ventilator 98.0 18 15:25 84 18 40 11/26/18 14:45 98.0 77 19 99/58 97 Mechanical Ventilator 40 98.0 18 13:43 78 20 95/61 97 Mechanical Ventilator 40 18 13:34 86 18 99 Mechanical Ventilator 40 11/26/18 13:19 86 18 98 Mechanical Ventilator 40 11/26/18 13:06 98 20 40 11/26/18 12:44 98.0 88 16 133/82 99 Mechanical Ventilator 40 98.0 18 12:35 98.1 92 16 122/63 97 Ambu-Bag 98.1 11/26/17 12:31 83 22 98 Bi-pap 40 11/26/17 12:16 83 24 98 Bi-pap 40 11/26/17 12:16 75 22 98 Bi-pap 40 11/26/17 12:01 77 24 97 Bi-pap 40 11/26/17 12:01 77 24 97 Bi-pap 40 11/26/17 11:46 71 23 94 Bi-pap 40 11/26/17 11:43 71 23 Bi-pap 40 11/26/17 11:36 71 23 94 Facial 40 11/26/17 10:48 98.1 78 16 133/82 88 Room Air 98.1 Intake and Output 11/26/17 11/27/17 19:00 07:00 Intake Total 37 ml 2403 ml Output Total 0 ml 1730 ml Balance 37 ml 673 ml Intake Free Water 0 ml IV Total 37 ml 2403 ml Output Urine Total 0 ml 1730 ml # Voids 1 Laboratory Tests Test 11/26/17 11:04 11/26/17 11:50 11/26/17 12:29 11/27/17 05:30 Venous Blood pH Pending Venous Blood Partial Pressure CO2 Pending Venous Blood Partial Pressure O2 Pending Venous Blood HCO3 Pending Venous Blood Total Carbon Dioxide Pending Venous Bld O2 Saturation (Measured) Pending Venous Blood Oxygen Saturation Pending Venous Blood Base Excess Pending Methemoglobin Pending Sodium (Blood Gas) Pending White Blood Count 7.1 K/UL (4.8-10.8) 10.4 K/UL (4.8-10.8) Red Blood Count 4.72 M/UL (4.20-5.40) 4.53 M/UL (4.20-5.40) Hemoglobin 13.3 G/DL (12.0-16.0) 12.9 G/DL (12.0-16.0) Hematocrit 46.4 % (37.0-47.0) 42.6 % (37.0-47.0) Mean Corpuscular Volume 98 FL (80-99) 94 FL (80-99) Mean Corpuscular Hemoglobin 28.2 PG (27.0-31.0) 28.5 PG (27.0-31.0) Mean Corpuscular Hemoglobin Concent 28.7 G/DL (32.0-36.0) L 30.4 G/DL (32.0-36.0) L Red Cell Distribution Width 17.5 % (11.6-14.8) H 16.4 % (11.6-14.8) H Platelet Count 241 K/UL (150-450) 246 K/UL (150-450) Mean Platelet Volume 6.9 FL (6.5-10.1) 6.8 FL (6.5-10.1) Neutrophils (%) (Auto) 54.8 % (45.0-75.0) 52.8 % (45.0-75.0) Lymphocytes (%) (Auto) 30.5 % (20.0-45.0) 37.4 % (20.0-45.0) Monocytes (%) (Auto) 10.7 % (1.0-10.0) H 9.4 % (1.0-10.0) Eosinophils (%) (Auto) 1.8 % (0.0-3.0) 0.0 % (0.0-3.0) Basophils (%) (Auto) 2.1 % (0.0-2.0) H 0.5 % (0.0-2.0) Prothrombin Time 10.2 SEC (9.30-11.50) 11.5 SEC (9.30-11.50) Prothromb Time International Ratio 1.0 (0.9-1.1) 1.1 (0.9-1.1) Activated Partial Thromboplast Time 30 SEC (23-33) 32 SEC (23-33) Sodium Level 139 MMOL/L (136-145) 138 MMOL/L (136-145) Potassium Level 5.3 MMOL/L (3.5-5.1) H 3.7 MMOL/L (3.5-5.1) Chloride Level 97 MMOL/L (98-107) L 96 MMOL/L (98-107) L Carbon Dioxide Level 44 MMOL/L (21-32) *H 31 MMOL/L (21-32) Blood Urea Nitrogen 11 mg/dL (7-18) 14 mg/dL (7-18) Creatinine 0.6 MG/DL (0.55-1.30) 1.1 MG/DL (0.55-1.30) # Estimat Glomerular Filtration Rate > 60 mL/min (>60) > 60 mL/min (>60) Glucose Level 128 MG/DL (74-106) H 208 MG/DL (74-106) H Lactic Acid Level 0.50 mmol/L (0.66-2.22) L Calcium Level 9.0 MG/DL (8.5-10.1) 9.2 MG/DL (8.5-10.1) Total Bilirubin 0.4 MG/DL (0.2-1.0) 0.5 MG/DL (0.2-1.0) Aspartate Amino Transf (AST/SGOT) 50 U/L (15-37) H 37 U/L (15-37) Alanine Aminotransferase (ALT/SGPT) 48 U/L (12-78) 45 U/L (12-78) Alkaline Phosphatase 64 U/L (46-116) 56 U/L (46-116) Total Creatine Kinase 110 U/L (26-308) Troponin I 0.014 ng/mL (0.000-0.056) Pro-B-Type Natriuretic Peptide 723 pg/mL (0-125) H Total Protein 8.1 G/DL (6.4-8.2) 7.7 G/DL (6.4-8.2) Albumin 2.7 G/DL (3.4-5.0) L 2.6 G/DL (3.4-5.0) L Globulin 5.4 g/dL 5.1 g/dL Albumin/Globulin Ratio 0.5 (1.0-2.7) L 0.5 (1.0-2.7) L Arterial Blood pH 7.420 (7.350-7.450) Arterial Blood Partial Pressure CO2 63.0 mmHg (35.0-45.0) *H Arterial Blood Partial Pressure O2 104.1 mmHg (75.0-100.0) H Arterial Blood HCO3 40.1 mmol/L (22.0-26.0) H Arterial Blood Oxygen Saturation 98.4 % (92.0-98.0) H Arterial Blood Base Excess 12.9 Doroteo Test Positive Anion Gap 11 mmol/L (5-15) Phosphorus Level 1.6 MG/DL (2.5-4.9) L Direct Bilirubin 0.1 MG/DL (0.0-0.3) Lactate Dehydrogenase 355 U/L (81-234) H Height (Feet): 5 Height (Inches): 4.00 Weight (Pounds): 425 Medications Current Medications Medications (Trade) Dose Ordered Sig/Felipe Route PRN Reason Start Time Stop Time Status Last Admin Dose Admin Acetaminophen (Tylenol) 650 mg Q4H PRN ORAL T>100.5 11/26/17 15:30 12/26/17 15:29 Albuterol/ Ipratropium (Albuterol/ Ipratropium) 3 ml Q4H PRN HHN Shortness of Breath 11/26/17 15:30 12/01/17 15:29 Allopurinol (Allopurinol) 300 mg DAILY NG 11/27/17 09:00 12/27/17 08:59 11/27/17 08:39 Dextrose (Dextrose 50%) 25 ml STAT PRN IV Hypoglycemia 11/26/17 15:45 12/26/17 15:44 Dextrose (Dextrose 50%) 50 ml STAT PRN IV Hypoglycemia 11/26/17 15:45 12/26/17 15:44 Dextrose/Sodium Chloride 1,000 ml @ 75 mls/hr [id number] IV 11/26/17 18:30 12/26/17 18:29 11/27/17 08:35 Digoxin (Lanoxin) 0.25 mg DAILY ORAL 11/27/17 09:00 12/27/17 08:59 11/27/17 08:36 Heparin Sodium (Porcine) (Heparin 5000 units/ml) 5,000 units EVERY 12 HOURS SUBQ 11/26/17 21:00 12/26/17 20:59 11/27/17 08:38 Insulin Aspart (NovoLOG) BEFORE MEALS AND HS SUBQ 11/26/17 21:00 12/26/17 20:59 11/27/17 06:39 Lorazepam (Ativan 2mg/ml 1ml) 2 mg Q2H PRN IV agitation 11/26/17 15:30 12/03/17 15:29 Midazolam HCl 100 mg/Dextrose 200 ml @ 0 mls/hr Q24H IV 11/26/17 19:30 12/26/17 19:29 11/27/17 00:58 Morphine Sulfate (Morphine Sulfate) 4 mg Q4H PRN IVP Severe Pain (Pain Scale 7-10) 11/26/17 15:30 12/03/17 15:29 Nitroglycerin (Ntg) 0.4 mg Q5M PRN SL Prn Chest Pain 11/26/17 15:30 12/26/17 15:29 Ondansetron HCl (Zofran) 4 mg Q6H PRN IVP Nausea & Vomiting 11/26/17 15:30 12/26/17 15:29 Pantoprazole (Protonix) 40 mg EVERY 12 HOURS IVP 11/27/17 21:00 12/27/17 20:59 Piperacillin Sod/ Tazobactam Sod 4.5 gm/Dextrose 110 ml @ 27.5 mls/hr Q8HR@0400,1200,2000 IVPB 11/26/17 21:00 12/03/17 20:59 11/27/17 03:52 Sodium Phosphate 30 mm/Sodium Chloride 285 ml @ 47.5 mls/hr ONCE ONCE IV 11/27/17 12:45 11/27/17 18:44 UNV Vancomycin HCl (Vanco rx to dose) 1 ea DAILYPRN PRN MISC Per rx protocol 11/26/17 18:45 12/26/17 18:44 Assessment/Plan Problem List: (1) Acute encephalopathy ICD Codes: G93.40 - Encephalopathy, unspecified SNOMED: 84601467, 765002160 (2) Acute respiratory failure with hypoxia and hypercapnia ICD Codes: J96.01 - Acute respiratory failure with hypoxia; J96.02 - Acute respiratory failure with hypercapnia SNOMED: 04858744, 06397177, 538132768 (3) DM2 (diabetes mellitus, type 2) ICD Codes: E11.9 - Type 2 diabetes mellitus without complications SNOMED: 16913184 (4) HTN (hypertension) ICD Codes: I10 - Essential (primary) hypertension SNOMED: 12095818 (5) Morbid obesity ICD Codes: E66.01 - Morbid (severe) obesity due to excess calories SNOMED: 269874877, 14655322945966 Respiratory: monitor respiratory rate, adjust FIO2, CXR Cardiac: continue to monitor HR/BP Renal: F/U I&O Infectious Disease: check cultures Gastrointestinal: continue feedings/current rate Endocrine: monitor blood sugar Hematologic: monitor H/H Neurologic: PRN Ativan, PRN Morphine Affect: PRN ativan Notes Reviewed: overhauler helper, 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 with: nurses, consultants, 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 case records supervisor Yariel Malone MD Nov 27, 2017 10:35
[2017-11-27] MEDS ORDERED: Zemuron 50mg/5ml Inj IV ONE (11:27)
--- NOTE | 2017-11-27 11:59 | Infectious Diseases Prog Note ---
Assessment/Plan Assessment/Plan Full consult dictated: A) 1) possible aspiration pna vs cap, fevers, ? sepsis 2) respiratory failure, vent 3) pmh noted P) 1) vancomycin, zosyn 2) check sc, ua, uc, bc, labs, chest x-ray 3) d/w Dr. Matthews 4) thank you Subjective Allergies: Coded Allergies: No Known Allergies (Unverified , 06/01/17) Objective Vital Signs Last 24 Hour Vital Signs Date Time Temp Pulse Resp B/P (MAP) Pulse Ox O2 Delivery O2 Flow Rate FiO2 11/27/17 11:15 79 18 40 11/27/17 10:45 79 18 129/54 98 Mechanical Ventilator 40 11/27/17 10:30 79 18 120/56 99 Mechanical Ventilator 40 79 11/27/17 10:15 79 18 126/55 99 Mechanical Ventilator 40 79 11/27/17 10:00 78 18 126/59 99 Mechanical Ventilator 40 78 11/27/17 09:45 77 18 122/57 99 Mechanical Ventilator 40 77 11/27/17 09:30 79 18 132/61 99 Mechanical Ventilator 40 79 11/27/17 09:15 84 17 116/60 99 Mechanical Ventilator 40 84 11/27/17 09:00 80 18 119/56 100 Mechanical Ventilator 40 80 11/27/17 08:59 85 18 40 11/27/17 08:36 80 11/27/17 08:30 80 18 114/56 99 Mechanical Ventilator 40 80 11/27/17 08:01 82 18 40 11/27/17 08:00 40 11/27/17 08:00 82 11/27/17 08:00 78 18 113/57 98 Mechanical Ventilator 40 78 11/27/17 08:00 67 11/27/17 07:30 99.2 82 18 117/53 98 Mechanical Ventilator 40 99.2 82 11/27/17 07:00 81 18 117/61 99 Mechanical Ventilator 40 11/27/17 06:30 99.5 80 18 122/57 99 Mechanical Ventilator 40 99.5 11/27/17 06:00 88 18 120/60 99 Mechanical Ventilator 40 11/27/17 06:00 18 11/27/17 05:30 88 18 115/64 99 Mechanical Ventilator 40 11/27/17 05:23 88 18 40 11/27/17 05:00 18 4/20/18 05:00 89 18 113/66 99 Mechanical Ventilator 40 4/20/18 04:30 92 18 125/69 99 Mechanical Ventilator 40 4/20/18 04:00 96 18 122/70 99 Mechanical Ventilator 40 4/20/18 04:00 40 4/20/18 04:00 18 4/20/18 04:00 67 4/20/18 03:30 76 18 114/53 99 Mechanical Ventilator 40 4/20/18 03:00 76 18 40 4/20/18 03:00 18 4/20/18 03:00 77 18 110/52 100 Mechanical Ventilator 40 4/20/18 02:30 72 18 109/53 100 Mechanical Ventilator 40 4/20/18 02:00 18 4/20/18 02:00 78 18 112/53 100 Mechanical Ventilator 40 4/20/18 01:30 78 18 133/54 100 Mechanical Ventilator 40 4/20/18 01:26 18 4/20/18 01:06 73 18 40 4/20/18 01:00 72 18 134/51 100 Mechanical Ventilator 40 4/20/18 01:00 18 4/20/18 00:58 18 4/20/18 00:30 70 18 137/51 100 Mechanical Ventilator 40 4/20/18 00:19 18 4/20/18 00:00 70 18 144/52 100 Mechanical Ventilator 40 4/20/18 00:00 40 4/20/18 00:00 18 4/20/18 00:00 67 4/19/18 23:30 68 18 150/56 100 Mechanical Ventilator 40 4/19/18 23:00 18 4/19/18 23:00 67 18 145/55 100 Mechanical Ventilator 40 4/19/18 22:56 67 18 40 4/19/18 22:30 67 18 146/55 100 Mechanical Ventilator 40 4/19/18 22:00 18 4/19/18 22:00 70 18 116/55 100 Mechanical Ventilator 40 4/19/18 21:30 78 18 112/54 99 Mechanical Ventilator 40 4/19/18 21:26 18 4/19/18 21:12 88 23 40 4/19/18 21:00 18 4/19/18 21:00 70 18 115/70 94 Mechanical Ventilator 40 4/19/18 20:45 71 18 129/64 97 Mechanical Ventilator 40 4/19/18 20:30 66 18 136/56 97 Mechanical Ventilator 40 18 20:19 18 18 20:15 64 18 135/54 99 Mechanical Ventilator 40 11/26/17 20:00 69 18 143/60 98 Mechanical Ventilator 40 18 19:45 66 18 140/57 100 Mechanical Ventilator 40 18 19:30 66 18 136/57 99 Mechanical Ventilator 40 18 19:21 66 18 19:15 66 18 134/57 99 Mechanical Ventilator 40 11/26/17 19:00 67 18 40 18 19:00 66 18 134/57 99 Mechanical Ventilator 40 18 18:47 40 11/26/17 18:19 98.0 74 18 106/59 100 Mechanical Ventilator 40 98.0 11/26/17 18:00 99.9 72 18 124/75 98 Mechanical Ventilator 40 99.9 11/26/17 17:53 74 18 106/59 100 Mechanical Ventilator 40 11/26/17 17:26 79 18 40 11/26/17 16:53 98.0 78 20 120/57 100 Mechanical Ventilator 98.0 11/26/17 15:25 84 18 40 11/26/17 14:45 98.0 77 19 99/58 97 Mechanical Ventilator 40 98.0 11/26/17 13:43 78 20 95/61 97 Mechanical Ventilator 40 11/26/17 13:34 86 18 99 Mechanical Ventilator 40 11/26/17 13:19 86 18 98 Mechanical Ventilator 40 11/26/17 13:06 98 20 40 11/26/17 12:44 98.0 88 16 133/82 99 Mechanical Ventilator 40 98.0 11/26/17 12:35 98.1 92 16 122/63 97 Ambu-Bag 98.1 11/26/17 12:31 83 22 98 Bi-pap 40 11/26/17 12:16 83 24 98 Bi-pap 40 11/26/17 12:16 75 22 98 Bi-pap 40 11/26/17 12:01 77 24 97 Bi-pap 40 11/26/17 12:01 77 24 97 Bi-pap 40 Height (Feet): 5 Height (Inches): 4.00 Weight (Pounds): 425 Laboratory Tests Test 11/26/17 12:29 11/27/17 05:30 Arterial Blood pH 7.420 (7.350-7.450) Arterial Blood Partial Pressure CO2 63.0 mmHg (35.0-45.0) *H Arterial Blood Partial Pressure O2 104.1 mmHg (75.0-100.0) H Arterial Blood HCO3 40.1 mmol/L (22.0-26.0) H Arterial Blood Oxygen Saturation 98.4 % (92.0-98.0) H Arterial Blood Base Excess 12.9 Doroteo Test Positive White Blood Count 10.4 K/UL (4.8-10.8) Red Blood Count 4.53 M/UL (4.20-5.40) Hemoglobin 12.9 G/DL (12.0-16.0) Hematocrit 42.6 % (37.0-47.0) Mean Corpuscular Volume 94 FL (80-99) Mean Corpuscular Hemoglobin 28.5 PG (27.0-31.0) Mean Corpuscular Hemoglobin Concent 30.4 G/DL (32.0-36.0) L Red Cell Distribution Width 16.4 % (11.6-14.8) H Platelet Count 246 K/UL (150-450) Mean Platelet Volume 6.8 FL (6.5-10.1) Neutrophils (%) (Auto) 52.8 % (45.0-75.0) Lymphocytes (%) (Auto) 37.4 % (20.0-45.0) Monocytes (%) (Auto) 9.4 % (1.0-10.0) Eosinophils (%) (Auto) 0.0 % (0.0-3.0) Basophils (%) (Auto) 0.5 % (0.0-2.0) Prothrombin Time 11.5 SEC (9.30-11.50) Prothromb Time International Ratio 1.1 (0.9-1.1) Activated Partial Thromboplast Time 32 SEC (23-33) Sodium Level 138 MMOL/L (136-145) Potassium Level 3.7 MMOL/L (3.5-5.1) Chloride Level 96 MMOL/L (98-107) L Carbon Dioxide Level 31 MMOL/L (21-32) Anion Gap 11 mmol/L (5-15) Blood Urea Nitrogen 14 mg/dL (7-18) Creatinine 1.1 MG/DL (0.55-1.30) # Estimat Glomerular Filtration Rate > 60 mL/min (>60) Glucose Level 208 MG/DL (74-106) H Calcium Level 9.2 MG/DL (8.5-10.1) Phosphorus Level 1.6 MG/DL (2.5-4.9) L Total Bilirubin 0.5 MG/DL (0.2-1.0) Direct Bilirubin 0.1 MG/DL (0.0-0.3) Aspartate Amino Transf (AST/SGOT) 37 U/L (15-37) Alanine Aminotransferase (ALT/SGPT) 45 U/L (12-78) Alkaline Phosphatase 56 U/L (46-116) Lactate Dehydrogenase 355 U/L (81-234) H Total Protein 7.7 G/DL (6.4-8.2) Albumin 2.6 G/DL (3.4-5.0) L Globulin 5.1 g/dL Albumin/Globulin Ratio 0.5 (1.0-2.7) L Current Medications Medications (Trade) Dose Ordered Sig/Felipe Route PRN Reason Start Time Stop Time Status Last Admin Dose Admin Acetaminophen (Tylenol) 650 mg Q4H PRN ORAL T>100.5 11/26/17 15:30 12/26/17 15:29 Albuterol/ Ipratropium (Albuterol/ Ipratropium) 3 ml Q4H PRN HHN Shortness of Breath 11/26/17 15:30 12/01/17 15:29 Allopurinol (Allopurinol) 300 mg DAILY NG 11/27/17 09:00 12/27/17 08:59 11/27/17 08:39 Dextrose (Dextrose 50%) 25 ml STAT PRN IV Hypoglycemia 11/26/17 15:45 12/26/17 15:44 Dextrose (Dextrose 50%) 50 ml STAT PRN IV Hypoglycemia 11/26/17 15:45 12/26/17 15:44 Dextrose/Sodium Chloride 1,000 ml @ 75 mls/hr [id number] IV 11/26/17 18:30 12/26/17 18:29 11/27/17 08:35 Digoxin (Lanoxin) 0.25 mg DAILY ORAL 11/27/17 09:00 12/27/17 08:59 11/27/17 08:36 Heparin Sodium (Porcine) (Heparin 5000 units/ml) 5,000 units EVERY 12 HOURS SUBQ 11/26/17 21:00 12/26/17 20:59 11/27/17 08:38 Insulin Aspart (NovoLOG) BEFORE MEALS AND HS SUBQ 11/26/17 21:00 12/26/17 20:59 11/27/17 11:23 Lorazepam (Ativan 2mg/ml 1ml) 2 mg Q2H PRN IV agitation 11/26/17 15:30 12/03/17 15:29 Midazolam HCl 100 mg/Dextrose 200 ml @ 0 mls/hr Q24H IV 11/26/17 19:30 12/26/17 19:29 11/27/17 00:58 Morphine Sulfate (Morphine Sulfate) 4 mg Q4H PRN IVP Severe Pain (Pain Scale 7-10) 11/26/17 15:30 12/03/17 15:29 Nitroglycerin (Ntg) 0.4 mg Q5M PRN SL Prn Chest Pain 11/26/17 15:30 12/26/17 15:29 Ondansetron HCl (Zofran) 4 mg Q6H PRN IVP Nausea & Vomiting 11/26/17 15:30 12/26/17 15:29 Pantoprazole (Protonix) 40 mg EVERY 12 HOURS IVP 11/27/17 21:00 12/27/17 20:59 Piperacillin Sod/ Tazobactam Sod 4.5 gm/Dextrose 110 ml @ 27.5 mls/hr Q8HR@0400,1200,2000 IVPB 11/26/17 21:00 12/03/17 20:59 11/27/17 11:29 Sodium Phosphate 30 mm/Sodium Chloride 560 ml @ 70 mls/hr ONCE ONCE IV 11/27/17 12:45 11/27/17 20:44 Vancomycin HCl (Vanco rx to dose) 1 ea DAILYPRN PRN MISC Per rx protocol 11/26/17 18:45 12/26/17 18:44 JUNI ABDUL Nov 27, 2017 11:59
[2017-11-27] MEDS ORDERED: Sodium Phosphate 30 MM in Sodium Chloride 500ML 550 ML IV ONE (12:45)
[2017-11-27] MEDS ORDERED: Vancomycin 750mg/NS 250ml IVPB ONE (16:00)
--- NOTE | 2017-11-27 16:21 | Consultation ---
History of Present Illness General Date patient seen: Nov 27, 2017 Chief Complaint: Altered Level of Consciousness Reason for Consultation: abdominal pain Present Illness HPI 57F with multiple medical comorbidities had ALOC and developed respiratory distress requiring intubation. Currently in ICU under care and management. Today she was more awake and alert. Complaining of abdominal pain. unfortunately could not describe pain given intubated but pointed to her abdomen and confirmed pain. surgery called to evaluate. patient seen in ICU where she is awake, alert, responsive and following commands but intubated. Initially complaining of pain in the AM but currently when seen in afternoon no pain and pain resolved. Allergies: Coded Allergies: No Known Allergies (Unverified , 06/01/17) Medication History Scheduled Allopurinol* (Allopurinol*), 300 MG NG DAILY Aspirin* (Aspirin*), 81 MG GT DAILY Atorvastatin Calcium* (Lipitor*), 20 MG GT BEDTIME Clotrimazole* (Lotrimin*), 1 APPLIC TOPIC THREE TIMES A DAY Digoxin* (Lanoxin*), 0.25 MG ORAL DAILY Docusate Sodium* (Docusil*), 100 MG ORAL TWICE A DAY, (Reported) Ferrous Sulfate (Feosol), 325 MG ORAL THREE TIMES A DAY Furosemide* (Lasix*), 40 MG ORAL DAILY Gabapentin* (Gabapentin*), 600 MG ORAL QHS, (Reported) Glipizide (Glipizide Xl), 10 MG ORAL DAILY, (Reported) Guaifenesin (Mucinex), 1,200 MG ORAL TWICE A DAY Insulin Glargine (Lantus), 21 SUBQ BID, (Reported) Ipratropium/Albuterol Sulfate (DuoNeb 0.5-3(2.5)mg/3ml), 3 ML HHN Q6HR Lactobacillus Acidophilus (Acidophilus), 1 EACH PO BID, (Reported) Metoprolol Succinate* (Metoprolol Succinate*), 25 MG ORAL DAILY Pantoprazole* (Protonix*), 40 MG ORAL DAILY, (Reported) Scheduled PRN Acetaminophen* (Tylenol Extra Strength*), 500 MG ORAL Q12HR PRN for Mild Pain/ Temp > 100.5, (Reported) Albuterol Sulfate* (Albuterol Sulfate Hhn*), 3 ML INH Q4H PRN for Shortness of Breath, (Reported) Diphenoxylate Hcl/Atropine (Lomotil Tablet), 2 TAB ORAL for Diarrhea, (Reported) Guaifenesin* (Guaifenesin), 200 MG ORAL Q4H PRN Ipratropium/Albuterol Sulfate (DuoNeb 0.5-3(2.5)mg/3ml), 3 ML HHN Q4HR PRN Prochlorperazine (Compazine*), 10 MG ORAL Q8HR PRN for Nausea & Vomiting, ( Reported) [facility] 1 EA MISC DAILY PRN Miscellaneous Medications Azelastine Hcl (Azelastine Hcl), 6 ML OP, (Reported) Capsaicin (Capsaicin), 42.5 GM TP, (Reported) Cyanocobalamin (Vitamin B-12) (Vitamin B12), 2,500 MCG PO, (Reported) Fluticasone Propionate (Flonase Allergy Relief), 9.9 ML NS, (Reported) Guar Gum (Nutrisource Fiber), 1 EACH PO, (Reported) Insulin Regular, Human (Humulin R), 0 SUBQ, (Reported) Loratadine (Loratadine), 10 MG PO, (Reported) Patient History Limited by: medical condition History Provided By: Patient, Medical Record, PMD Healthcare decision maker ramon Ambriz Resuscitation status Full Code Advanced Directive on File No Past Medical/Surgical History Past Medical/Surgical History: (1) Abdominal pain (2) Transaminitis (3) Multiple organ failure (4) Anemia (5) Shock liver (6) Septic shock (7) Lactic acid acidosis (8) KASHIF (acute kidney injury) (9) Acute toxic metabolic encephalopathy (10) Acute renal failure (ARF) (11) SVT (supraventricular tachycardia) (12) Elevated troponin I level (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 (17) Hypokalemia (18) Hypomagnesemia (19) Hematuria (20) Vaginal bleeding (21) Acute on chronic diastolic (congestive) heart failure (22) H/O supraventricular tachycardia (23) Likely obesity hypoventilation syndrome (24) HCAP 2/2 MRSA (25) Altered level of consciousness (26) COPD exacerbation (27) Morbid obesity (28) Pneumonia (29) Acute respiratory failure with hypoxia and hypercapnia (30) Fatty liver (31) Hypertension (32) HTN (hypertension) (33) DM2 (diabetes mellitus, type 2) (34) Acute encephalopathy Review of Systems ROS Narrative cannot obtain given patients medical condition Physical Exam General Appearance: no apparent distress Lines, tubes and drains: peripheral HEENT: normocephalic, mucous membranes moist, PERRL Neck: supple Respiratory/Chest: on vent Cardiovascular/Chest: normal peripheral pulses, tachycardia Abdomen: normal bowel sounds, non tender, soft, no organomegaly, no mass, other - super obese Skin Exam: normal pigmentation Neurologic: alert Last 24 Hour Vital Signs Date Time Temp Pulse Resp B/P (MAP) Pulse Ox O2 Delivery O2 Flow Rate FiO2 11/27/17 15:11 75 18 40 11/27/17 15:00 79 20 117/68 92 Mechanical Ventilator 11/27/17 14:30 81 18 116/58 98 Mechanical Ventilator 40 11/27/17 14:00 83 18 124/58 97 Mechanical Ventilator 40 11/27/17 13:42 70 29 35 11/27/17 13:30 82 28 118/60 95 Mechanical Ventilator 40 11/27/17 13:00 40 11/27/17 13:00 87 18 122/56 85 Mechanical Ventilator 40 11/27/17 13:00 68 20 35 11/27/17 12:30 88 18 123/68 95 Mechanical Ventilator 40 11/27/17 12:00 84 18 134/58 95 Mechanical Ventilator 40 11/27/17 11:45 87 21 118/65 95 Mechanical Ventilator 40 11/27/17 11:30 86 18 121/64 94 Mechanical Ventilator 40 11/27/17 11:15 79 18 40 11/27/17 11:00 79 18 126/57 98 Mechanical Ventilator 40 11/27/17 10:45 79 18 129/54 98 Mechanical Ventilator 40 11/27/17 10:30 79 18 120/56 99 Mechanical Ventilator 40 79 11/27/17 10:15 79 18 126/55 99 Mechanical Ventilator 40 79 11/27/17 10:00 78 18 126/59 99 Mechanical Ventilator 40 78 11/27/17 09:45 77 18 122/57 99 Mechanical Ventilator 40 77 11/27/17 09:30 79 18 132/61 99 Mechanical Ventilator 40 79 11/27/17 09:15 84 17 116/60 99 Mechanical Ventilator 40 84 4/20/18 09:00 80 18 119/56 100 Mechanical Ventilator 40 80 4/20/18 08:59 85 18 40 4/20/18 08:36 80 4/20/18 08:30 80 18 114/56 99 Mechanical Ventilator 40 80 4/20/18 08:01 82 18 40 4/20/18 08:00 40 4/20/18 08:00 82 4/20/18 08:00 78 18 113/57 98 Mechanical Ventilator 40 78 4/20/18 08:00 67 4/20/18 07:30 99.2 82 18 117/53 98 Mechanical Ventilator 40 99.2 82 4/20/18 07:00 81 18 117/61 99 Mechanical Ventilator 40 4/20/18 06:30 99.5 80 18 122/57 99 Mechanical Ventilator 40 99.5 4/20/18 06:00 88 18 120/60 99 Mechanical Ventilator 40 4/20/18 06:00 18 4/20/18 05:30 88 18 115/64 99 Mechanical Ventilator 40 4/20/18 05:23 88 18 40 4/20/18 05:00 18 4/20/18 05:00 89 18 113/66 99 Mechanical Ventilator 40 4/20/18 04:30 92 18 125/69 99 Mechanical Ventilator 40 4/20/18 04:00 96 18 122/70 99 Mechanical Ventilator 40 4/20/18 04:00 40 4/20/18 04:00 18 4/20/18 04:00 67 4/20/18 03:30 76 18 114/53 99 Mechanical Ventilator 40 4/20/18 03:00 76 18 40 4/20/18 03:00 18 4/20/18 03:00 77 18 110/52 100 Mechanical Ventilator 40 4/20/18 02:30 72 18 109/53 100 Mechanical Ventilator 40 4/20/18 02:00 18 4/20/18 02:00 78 18 112/53 100 Mechanical Ventilator 40 4/20/18 01:30 78 18 133/54 100 Mechanical Ventilator 40 4/20/18 01:26 18 4/20/18 01:06 73 18 40 4/20/18 01:00 72 18 134/51 100 Mechanical Ventilator 40 4/20/18 01:00 18 4/20/18 00:58 18 4/20/18 00:30 70 18 137/51 100 Mechanical Ventilator 40 4/20/18 00:19 18 20/18 00:00 70 18 144/52 100 Mechanical Ventilator 40 20/18 00:00 40 20/18 00:00 18 20/18 00:00 67 419/18 23:30 68 18 150/56 100 Mechanical Ventilator 40 19/18 23:00 18 19/18 23:00 67 18 145/55 100 Mechanical Ventilator 40 19/18 22:56 67 18 40 19/18 22:30 67 18 146/55 100 Mechanical Ventilator 40 19/18 22:00 18 19/18 22:00 70 18 116/55 100 Mechanical Ventilator 40 11/26/18 21:30 78 18 112/54 99 Mechanical Ventilator 40 11/26/18 21:26 18 11/26/18 21:12 88 23 40 11/26/18 21:00 18 11/26/18 21:00 70 18 115/70 94 Mechanical Ventilator 40 18 20:45 71 18 129/64 97 Mechanical Ventilator 40 11/26/18 20:30 66 18 136/56 97 Mechanical Ventilator 40 11/26/18 20:19 18 11/26/18 20:15 64 18 135/54 99 Mechanical Ventilator 40 11/26/18 20:00 69 18 143/60 98 Mechanical Ventilator 40 11/26/18 19:45 66 18 140/57 100 Mechanical Ventilator 40 11/26/18 19:30 66 18 136/57 99 Mechanical Ventilator 40 11/26/18 19:21 66 19/18 19:15 66 18 134/57 99 Mechanical Ventilator 40 11/26/18 19:00 67 18 40 19/18 19:00 66 18 134/57 99 Mechanical Ventilator 40 19/18 18:47 40 19/18 18:19 98.0 74 18 106/59 100 Mechanical Ventilator 40 98.0 19/18 18:00 99.9 72 18 124/75 98 Mechanical Ventilator 40 99.9 19/18 17:53 74 18 106/59 100 Mechanical Ventilator 40 19/18 17:26 79 18 40 19/18 16:53 98.0 78 20 120/57 100 Mechanical Ventilator 98.0 Intake and Output 19/18 20/18 19:00 07:00 Intake Total 37 ml 2403 ml Output Total 0 ml 1730 ml Balance 37 ml 673 ml Intake Free Water 0 ml IV Total 37 ml 2403 ml Output Urine Total 0 ml 1730 ml # Voids 1 Laboratory Tests Test 11/27/17 05:30 11/27/17 11:40 White Blood Count 10.4 K/UL (4.8-10.8) Red Blood Count 4.53 M/UL (4.20-5.40) Hemoglobin 12.9 G/DL (12.0-16.0) Hematocrit 42.6 % (37.0-47.0) Mean Corpuscular Volume 94 FL (80-99) Mean Corpuscular Hemoglobin 28.5 PG (27.0-31.0) Mean Corpuscular Hemoglobin Concent 30.4 G/DL (32.0-36.0) L Red Cell Distribution Width 16.4 % (11.6-14.8) H Platelet Count 246 K/UL (150-450) Mean Platelet Volume 6.8 FL (6.5-10.1) Neutrophils (%) (Auto) 52.8 % (45.0-75.0) Lymphocytes (%) (Auto) 37.4 % (20.0-45.0) Monocytes (%) (Auto) 9.4 % (1.0-10.0) Eosinophils (%) (Auto) 0.0 % (0.0-3.0) Basophils (%) (Auto) 0.5 % (0.0-2.0) Prothrombin Time 11.5 SEC (9.30-11.50) Prothromb Time International Ratio 1.1 (0.9-1.1) Activated Partial Thromboplast Time 32 SEC (23-33) Sodium Level 138 MMOL/L (136-145) Potassium Level 3.7 MMOL/L (3.5-5.1) Chloride Level 96 MMOL/L (98-107) L Carbon Dioxide Level 31 MMOL/L (21-32) Anion Gap 11 mmol/L (5-15) Blood Urea Nitrogen 14 mg/dL (7-18) Creatinine 1.1 MG/DL (0.55-1.30) # Estimat Glomerular Filtration Rate > 60 mL/min (>60) Glucose Level 208 MG/DL (74-106) H Calcium Level 9.2 MG/DL (8.5-10.1) Phosphorus Level 1.6 MG/DL (2.5-4.9) L Total Bilirubin 0.5 MG/DL (0.2-1.0) Direct Bilirubin 0.1 MG/DL (0.0-0.3) Aspartate Amino Transf (AST/SGOT) 37 U/L (15-37) Alanine Aminotransferase (ALT/SGPT) 45 U/L (12-78) Alkaline Phosphatase 56 U/L (46-116) Lactate Dehydrogenase 355 U/L (81-234) H Total Protein 7.7 G/DL (6.4-8.2) Albumin 2.6 G/DL (3.4-5.0) L Globulin 5.1 g/dL Albumin/Globulin Ratio 0.5 (1.0-2.7) L Vancomycin Level Trough 18.3 ug/mL (5.0-12.0) H Height (Feet): 5 Height (Inches): 4.00 Weight (Pounds): 425 Medications Current Medications Medications (Trade) Dose Ordered Sig/Felipe Route PRN Reason Start Time Stop Time Status Last Admin Dose Admin Acetaminophen (Tylenol) 650 mg Q4H PRN ORAL T>100.5 11/26/17 15:30 12/26/17 15:29 Albuterol/ Ipratropium (Albuterol/ Ipratropium) 3 ml Q4H PRN HHN Shortness of Breath 11/26/17 15:30 12/01/17 15:29 Allopurinol (Allopurinol) 300 mg DAILY NG 11/27/17 09:00 12/27/17 08:59 11/27/17 08:39 Dextrose (Dextrose 50%) 25 ml STAT PRN IV Hypoglycemia 11/26/17 15:45 12/26/17 15:44 Dextrose (Dextrose 50%) 50 ml STAT PRN IV Hypoglycemia 11/26/17 15:45 12/26/17 15:44 Dextrose/Sodium Chloride 1,000 ml @ 75 mls/hr [id number] IV 11/26/17 18:30 12/26/17 18:29 11/27/17 08:35 Digoxin (Lanoxin) 0.25 mg DAILY ORAL 11/27/17 09:00 12/27/17 08:59 11/27/17 08:36 Heparin Sodium (Porcine) (Heparin 5000 units/ml) 5,000 units EVERY 12 HOURS SUBQ 11/26/17 21:00 12/26/17 20:59 11/27/17 08:38 Insulin Aspart (NovoLOG) BEFORE MEALS AND HS SUBQ 11/26/17 21:00 12/26/17 20:59 11/27/17 11:23 Lorazepam (Ativan 2mg/ml 1ml) 2 mg Q2H PRN IV agitation 11/26/17 15:30 12/03/17 15:29 Midazolam HCl 100 mg/Dextrose 200 ml @ 0 mls/hr Q24H IV 11/26/17 19:30 12/26/17 19:29 11/27/17 00:58 Morphine Sulfate (Morphine Sulfate) 4 mg Q4H PRN IVP Severe Pain (Pain Scale 7-10) 11/26/17 15:30 12/03/17 15:29 Nitroglycerin (Ntg) 0.4 mg Q5M PRN SL Prn Chest Pain 11/26/17 15:30 12/26/17 15:29 Ondansetron HCl (Zofran) 4 mg Q6H PRN IVP Nausea & Vomiting 11/26/17 15:30 12/26/17 15:29 Pantoprazole (Protonix) 40 mg EVERY 12 HOURS IVP 11/27/17 21:00 12/27/17 20:59 Piperacillin Sod/ Tazobactam Sod 4.5 gm/Dextrose 110 ml @ 27.5 mls/hr Q8HR@0400,1200,2000 IVPB 11/26/17 21:00 12/03/17 20:59 11/27/17 11:29 Sodium Phosphate 30 mm/Sodium Chloride 560 ml @ 70 mls/hr ONCE ONCE IV 11/27/17 12:45 11/27/17 20:44 11/27/17 13:11 Vancomycin HCl (Vanco rx to dose) 1 ea DAILYPRN PRN MISC Per rx protocol 11/26/17 18:45 12/26/17 18:44 Vancomycin/Sodium Chloride 250 ml @ 166.667 mls/hr ONCE ONCE IVPB 11/27/17 16:00 11/27/17 17:29 Assessment/Plan Problem List: (1) Abdominal pain Assessment & Plan: initially complaining of abdominal pain earlier this AM. intubated in ICU and recovering from ALOC and respiratory distress. responsive and able to follow commands currently while intubated and improving. when seen in afternoon states pain resolved. -hold off on imaging for now -will follow exam clinically -if pain returns or changes will continue work up thank you for this consultation. will follow with you ICD Codes: R10.9 - Unspecified abdominal pain SNOMED: 75889421 Qualifiers: Qualified Codes: R10.84 - Generalized abdominal pain Status: stable Stevan Romero Nov 27, 2017 16:21
[2017-11-27 17:33] LABS: APPEARANCE,URINE CLEAR; BILIRUBIN, URINE NEGATIVE (NEGATIVE); COLOR,URINE PALE YELLOW; GLUCOSE, URINE (UA) NEGATIVE (NEGATIVE); KETONES,URINE NEGATIVE (NEGATIVE); LEUKOCYTE ESTERASE ,URINE 3+ (NEGATIVE); NITRITE,URINE NEGATIVE (NEGATIVE); PH,URINE 7 (4.5-8.0); PROTEIN,URINE 2+ (NEGATIVE); UROBILINOGEN,URINE NORMAL MG/DL (0.0-1.0)
--- NOTE | 2017-11-27 18:43 | Diagnostic Imaging Report ---
Indication: Tube placement Technique: XRAY Abdomen 1v Comparison: Chest radiograph from one day prior Findings/Impression: Endotracheal tube tip above the level of clavicles. The lucía is hard to define. Low lung volumes with perihilar opacities. These are unchanged. An enteric tube courses below level of diaphragms, tip in the distal stomach. This corresponds with the statrad preliminary report.
[2017-11-27] MEDS: Pantoprazole Inj IVP SCH (20:51)
--- NOTE | 2017-11-27 23:06 | General Progress Note ---
Assessment/Plan Problem List: (1) Acute toxic metabolic encephalopathy (2) Acute respiratory failure with hypoxia and hypercapnia ICD Codes: J96.01 - Acute respiratory failure with hypoxia; J96.02 - Acute respiratory failure with hypercapnia SNOMED: 90347533, 73917655, 014522389 (3) Severe sepsis ICD Codes: A41.9 - Sepsis, unspecified organism; R65.20 - Severe sepsis without septic shock SNOMED: 37995476 (4) Aspiration pnemonia vs HCAP (5) Likely obesity hypoventilation syndrome (6) Chronic diastolic (congestive) heart failure ICD Codes: I50.32 - Chronic diastolic (congestive) heart failure SNOMED: 32854137, 560291990 (7) Hyperkalemia ICD Codes: E87.5 - Hyperkalemia SNOMED: 59545678 (8) KASHIF (acute kidney injury) ICD Codes: N17.9 - Acute kidney failure, unspecified SNOMED: 51095120 (9) GERD (gastroesophageal reflux disease) ICD Codes: K21.9 - Gastro-esophageal reflux disease without esophagitis SNOMED: 658006063 (10) DM2 (diabetes mellitus, type 2) ICD Codes: E11.9 - Type 2 diabetes mellitus without complications SNOMED: 98188835 (11) Morbid obesity ICD Codes: E66.01 - Morbid (severe) obesity due to excess calories SNOMED: 404924312, 52581701721661 (12) Fatty liver ICD Codes: K76.0 - Fatty (change of) liver, not elsewhere classified SNOMED: 143978675 (13) Abdominal pain ICD Codes: R10.9 - Unspecified abdominal pain SNOMED: 60607179 Qualifiers: Qualified Codes: R10.84 - Generalized abdominal pain Status: stable Assessment/Plan Cont ICU care Pulm/critical care consulted Cont on vent and wean as tolerated Trend ABG Daily SBTs and sedations holidays Monitor hemodynamics. No indication for pressors at this time ID consulted Empiric vanco and zosyn for aspiration pneumonia vs HCAP (CXR w/ RLL infiltrate) F/u blood cultures Check resp culture General surg eval given abdominal pain LESTER Cont SNF meds as appropriate Start tube feeds via NGT Monitor CBC, BMP Pain control, bowel regimen Supportive care PPI DVT Prophylaxis: SCD, HSQ Code Status: Full Hospital Classification Declaration: Based on this initial evaluation, and depending on the patient's clinical course, I anticipate that this patient will require hospitalization for 3-4 days for severe sepsis, respiratory failure and close respiratory/hemodynamic monitoring. At the time of my involvement, the patient's condition was critical with high potential for and/or physiologic deterioration secondary to severe sepsis , encephalopathy, acute respiratory failure as delineated in the note above. On the above date of service, I spent a total of 41 minutes in the ICU evaluating, managing, and providing critical care services to this patient, including time spent documenting these activities, counseling patient/family, and coordinating care. Discussed with MANAGEMENT DEVELOPER re vent adjustments, ABG results. D /w pulm/critical care weaning of vent. D/w ID re broad-spectrum antibiotics Critical care services performed include: Telemetry Review Hemodynamic measurement interpretation Laboratory data review and interpretation Ventilator setting review, management, and adjustment Discussion of care plans with patient, family, and/or surrogate decision makers Discussion of patient's care with primary medical team, surgical team, and/or consulting service Decision to obtain further radiologic evaluation, after consideration of risk/ benefit ratio Decision to perform invasive procedure, after consideration of risk/benefit ratio Review of most recent microbiology results with assessment and modification of antimicrobial coverage Discussion of patient's code status and further advancement towards the ultimate goals of care Time of note may not reflect time of encounter. Subjective Date patient seen: Nov 27, 2017 Time patient seen: 12:00 ROS Limited/Unobtainable: Yes Allergies: Coded Allergies: No Known Allergies (Unverified , 06/01/17) Subjective No acute o/n events Pt intubated, sedated but arousable to voice Noted to have abdominal discomfort ROS limited as pt sedated Objective Last 24 Hour Vital Signs Date Time Temp Pulse Resp B/P (MAP) Pulse Ox O2 Delivery O2 Flow Rate FiO2 11/27/17 21:00 71 18 143/55 100 Mechanical Ventilator 40 11/27/17 21:00 68 18 35 11/27/17 20:00 98.4 74 18 129/59 100 Mechanical Ventilator 40 98.4 11/27/17 20:00 40 11/27/17 20:00 74 11/27/17 19:30 69 18 35 11/27/17 19:30 89 21 155/62 96 11/27/17 19:00 81 15 129/57 97 11/27/17 18:30 70 18 125/53 99 4/20/18 18:00 70 18 118/57 100 Mechanical Ventilator 40 4/20/18 17:30 68 18 135/52 98 Mechanical Ventilator 40 4/20/18 17:12 72 18 35 4/20/18 17:00 71 18 118/58 100 Mechanical Ventilator 40 4/20/18 16:30 69 16 128/52 99 Mechanical Ventilator 40 4/20/18 16:00 68 4/20/18 16:00 72 117/55 100 Mechanical Ventilator 40 4/20/18 15:30 82 101/63 100 Mechanical Ventilator 40 4/20/18 15:11 75 18 35 4/20/18 15:00 79 20 117/68 92 Mechanical Ventilator 4/20/18 14:30 81 18 116/58 98 Mechanical Ventilator 40 4/20/18 14:00 83 18 124/58 97 Mechanical Ventilator 40 4/20/18 13:42 70 29 35 4/20/18 13:30 82 28 118/60 95 Mechanical Ventilator 40 4/20/18 13:00 40 4/20/18 13:00 87 18 122/56 85 Mechanical Ventilator 40 4/20/18 13:00 68 20 35 4/20/18 12:30 88 18 123/68 95 Mechanical Ventilator 40 4/20/18 12:00 84 18 134/58 95 Mechanical Ventilator 40 4/20/18 12:00 85 4/20/18 11:45 87 21 118/65 95 Mechanical Ventilator 40 4/20/18 11:30 86 18 121/64 94 Mechanical Ventilator 40 4/20/18 11:15 79 18 40 4/20/18 11:00 79 18 126/57 98 Mechanical Ventilator 40 4/20/18 10:45 79 18 129/54 98 Mechanical Ventilator 40 4/20/18 10:30 79 18 120/56 99 Mechanical Ventilator 40 79 4/20/18 10:15 79 18 126/55 99 Mechanical Ventilator 40 79 4/20/18 10:00 78 18 126/59 99 Mechanical Ventilator 40 78 4/20/18 09:45 77 18 122/57 99 Mechanical Ventilator 40 77 4/20/18 09:30 79 18 132/61 99 Mechanical Ventilator 40 79 4/20/18 09:15 84 17 116/60 99 Mechanical Ventilator 40 84 4/20/18 09:00 80 18 119/56 100 Mechanical Ventilator 40 80 4/20/18 08:59 85 18 40 4/20/18 08:36 80 4/20/18 08:30 80 18 114/56 99 Mechanical Ventilator 40 80 4/20/18 08:01 82 18 40 4/20/18 08:00 40 4/20/18 08:00 82 4/20/18 08:00 78 18 113/57 98 Mechanical Ventilator 40 78 4/20/18 08:00 67 4/20/18 07:30 99.2 82 18 117/53 98 Mechanical Ventilator 40 99.2 82 4/20/18 07:00 81 18 117/61 99 Mechanical Ventilator 40 4/20/18 06:30 99.5 80 18 122/57 99 Mechanical Ventilator 40 99.5 4/20/18 06:00 88 18 120/60 99 Mechanical Ventilator 40 4/20/18 06:00 18 4/20/18 05:30 88 18 115/64 99 Mechanical Ventilator 40 4/20/18 05:23 88 18 40 4/20/18 05:00 18 4/20/18 05:00 89 18 113/66 99 Mechanical Ventilator 40 4/20/18 04:30 92 18 125/69 99 Mechanical Ventilator 40 4/20/18 04:00 96 18 122/70 99 Mechanical Ventilator 40 4/20/18 04:00 40 4/20/18 04:00 18 4/20/18 04:00 67 4/20/18 03:30 76 18 114/53 99 Mechanical Ventilator 40 4/20/18 03:00 76 18 40 4/20/18 03:00 18 4/20/18 03:00 77 18 110/52 100 Mechanical Ventilator 40 4/20/18 02:30 72 18 109/53 100 Mechanical Ventilator 40 4/20/18 02:00 18 4/20/18 02:00 78 18 112/53 100 Mechanical Ventilator 40 4/20/18 01:30 78 18 133/54 100 Mechanical Ventilator 40 4/20/18 01:26 18 4/20/18 01:06 73 18 40 4/20/18 01:00 72 18 134/51 100 Mechanical Ventilator 40 4/20/18 01:00 18 4/20/18 00:58 18 4/20/18 00:30 70 18 137/51 100 Mechanical Ventilator 40 4/20/18 00:19 18 4/20/18 00:00 70 18 144/52 100 Mechanical Ventilator 40 11/27/17 00:00 40 11/27/17 00:00 18 11/27/17 00:00 67 11/26/17 23:30 68 18 150/56 100 Mechanical Ventilator 40 Intake and Output 11/26/17 11/27/17 19:00 07:00 Intake Total 37 ml 2403 ml Output Total 0 ml 1730 ml Balance 37 ml 673 ml Intake Free Water 0 ml IV Total 37 ml 2403 ml Output Urine Total 0 ml 1730 ml # Voids 1 Laboratory Tests 11/27/17 05:30: White Blood Count 10.4, Red Blood Count 4.53, Hemoglobin 12.9, Hematocrit 42.6, Mean Corpuscular Volume 94, Mean Corpuscular Hemoglobin 28.5, Mean Corpuscular Hemoglobin Concent 30.4L, Red Cell Distribution Width 16.4H, Platelet Count 246 , Mean Platelet Volume 6.8, Neutrophils (%) (Auto) 52.8, Lymphocytes (%) (Auto) 37.4, Monocytes (%) (Auto) 9.4, Eosinophils (%) (Auto) 0.0, Basophils (%) (Auto ) 0.5, Prothrombin Time 11.5, Prothromb Time International Ratio 1.1, Activated Partial Thromboplast Time 32, Sodium Level 138, Potassium Level 3.7, Chloride Level 96L, Carbon Dioxide Level 31, Anion Gap 11, Blood Urea Nitrogen 14, Creatinine 1.1#, Estimat Glomerular Filtration Rate > 60, Glucose Level 208H, Calcium Level 9.2, Phosphorus Level 1.6L, Total Bilirubin 0.5, Direct Bilirubin 0.1, Aspartate Amino Transf (AST/SGOT) 37, Alanine Aminotransferase (ALT/SGPT) 45, Alkaline Phosphatase 56, Lactate Dehydrogenase 355H, Total Protein 7.7, Albumin 2.6L, Globulin 5.1, Albumin/Globulin Ratio 0.5L 11/27/17 11:40: Vancomycin Level Trough 18.3H 11/27/17 12:30: Urine Color Pale yellow, Urine Appearance Clear, Urine pH 7, Urine Specific [place] 1.005, Urine Protein 2+H, Urine Glucose (UA) Negative, Urine Ketones Negative, Urine Occult Blood 4+H, Urine Nitrite Negative, Urine Bilirubin Negative, Urine Urobilinogen Normal, Urine Leukocyte Esterase 3+H, Urine RBC 5- 10H, Urine WBC 2-4, Urine Squamous Epithelial Cells Few, Urine Bacteria Few Height (Feet): 5 Height (Inches): 4.00 Weight (Pounds): 425 Cassie Bolivar M.D. Nov 27, 2017 23:06
[2017-11-28] VITALS (24 sets, daily range): BP systolic 113–143; BP diastolic 43–67
--- NOTE | 2017-11-28 03:45 | Consultation ---
DATE OF CONSULTATION: 11/27/2017 NOTE: POOR AUDIO INFECTIOUS DISEASES CONSULTATION CONSULTING PHYSICIAN: Martha Snyder M.D. ATTENDING PHYSICIAN: Brittany Edmond M.D. REFERRING PHYSICIAN: Cassie Bolivar M.D. REASON FOR CONSULTATION: Pneumonia, fever, sepsis. CHIEF COMPLAINT: The patient's chief complaint coming in to the hospital is respiratory failure. HISTORY OF PRESENT ILLNESS: This is a 57-year-old female who comes in to [facility]. She is currently in respiratory failure, on a vent. She came in with altered level of consciousness. She, at this time, is more alert. She is intubated on a vent, but currently not on pressors. The patient was noted to have pneumonia and is high risk for both aspiration/ hcap and cap. The patient also looks like she has fevers. Infectious Disease consultation was requested for antibiotic management. Case was discussed with Dr. Matthews. The patient is on Zosyn and vancomycin and cultures are pending. MAR was noted. Orders were noted. Notes were reviewed. Case was discussed with RN also. PAST MEDICAL HISTORY: The patient's past medical history includes the following. The patient, I believe, resides in an [facility]. She has a history of muscle weakness, metabolic encephalopathy, history of non-STEMI, mi, myocardial infarction, CAD, diabetes mellitus, history of hypertension, anemia, systolic heart failure and diastolic heart failure, history of CHF, hyperlipidemia, history of gout, history of shortness of breath, respiratory failure in the past, history of hypoxia, history of sepsis in the past, looks like history of peripheral nervous system, it is unclear if she has neuropathy, and history of asthma. MEDICATIONS: Upon reviewing the MAR, she is on following medications. She is on pantoprazole, allopurinol, digoxin, heparin, insulin, Zosyn, and vancomycin. She is on midazolam, she is on albuterol treatments, she is on Zofran, nitroglycerin, Tylenol, morphine, and lorazepam. Antibiotics, vancomycin and Zosyn. Outside medications noted and reconciliated. ALLERGIES: No known drug allergies. No antibiotic allergies. SOCIAL HISTORY: Negative for smoking, alcohol, or drug abuse. FAMILY HISTORY: Noncontributory. No mention of exposure to tuberculosis or cancer. REVIEW OF SYSTEMS: CONSTITUTIONAL: She is more alert at this time. She came in altered level of consciousness. She has fevers. She is intubated on a vent, currently not on pressors. She has a Forman. HEAD AND NECK: Orally intubated. CARDIAC: No pressor. GASTROINTESTINAL: No nausea, vomiting, or diarrhea. Questionable abdominal discomfort. GENITOURINARY: She has a Forman. PULMONARY: On a vent. Some secretions. SKIN: No rash or itching. EXTREMITIES: No obvious extremity pain. NEUROLOGIC: No seizures. Review of systems otherwise limited in this patient. PHYSICAL EXAMINATION: VITAL SIGNS: T-max is 99.9, currently temperature is 99.2, pulse rate 79, respiratory rate 18, blood pressure 129/54, and saturation 98% on FiO2 40%. Pulse rate on admission was as high as 92. GENERAL: Alert, responsive. HEAD AND NECK: Orally intubated, no icterus normocephalic. HEART: Regular. No obvious gallop or murmur. ABDOMEN: Soft. Positive bowel sounds. No obvious rebound, but seems like there is some discomfort. LUNGS: Few bilateral rhonchi and rales, especially on the right. SKIN: No rash. MUSCULOSKELETAL: No effusion. Legs are without cellulitis. PERIPHERAL VASCULAR: No cyanosis or gangrene. EXTREMITIES: No gangrene on the extremities. GENITOURINARY: She has a Forman. Urine is fairly clear. LINES: Line sites without phlebitis. NEUROLOGIC: Generalized weakness, responsive. LABORATORY AND DIAGNOSTIC DATA: Laboratory data is as follows. White count 10.4, hemoglobin 12.9. The patient's creatinine is 1.1. Lactic acid was 0.5. The patient's cultures are pending. IMAGING STUDIES: Chest x-ray shows right perihilar atelectasis or consolidation, initially showed right basilar infiltrate. Followup chest x-ray ordered. Cultures pending. ASSESSMENT AND PLAN: 1. The patient has what looks like pneumonia. The patient is high risk for aspiration pneumonia, but also hcap and community-acquired pneumonia. The patient comes from extended care facility, is at risk for healthcare-acquired pneumonia also. At this time, I agree with vancomycin and Zosyn. Check sputum culture, laboratories, and chest x-ray. Because of the fevers, also get cultures. Also, in addition, the patient could be septic with systemic inflammatory response syndrome criteria. Heart rate over 90, respiratory failure, low-grade fevers, and also altered level of consciousness. Continue vancomycin and Zosyn pending workup. 2. Respiratory failure, on vent. 3. Formna. 4. The patient has history of hypertension. 5. Diabetes. 6. Hyperlipidemia. 7. Blood sugar and blood pressure treatment per primary. 8. History of asthma. 9. History of myocardial infarction and coronary artery disease. 10. History of heart failure, congestive heart failure. 11. History of gout. 12. History of sepsis and pneumonia. 13. History of muscle weakness. 14. Gastroesophageal reflux disease. 15. Past orders were noted. 16. Allergies are negative. 17. Family History is noncontributory. 18. Social history is negative. 19. MAR was noted. 20. Case discussed with RN. 21. Continue treatment per primary and consultants. 22. Case discussed with Dr. Matthews. 23. Case discussed with RN in the ICU. 24. Orders were noted and entered. 25. Notes and records were noted. Martha Snyder M.D. DR: Jasson JOB#: [id number] CC: DONNIE
[2017-11-28] MEDS: Piperacillin/Tazobactam 4.5 GM in D5W 110 ML IVPB SCH ×3 (03:47→19:59)
[2017-11-28] MEDS: NovoLOG Insulin Flexpen SUBQ SCH ×4 (06:06→21:15)
[2017-11-28 06:45] LABS: BASOPHILS % (AUTO) 1.1 % (0.0-2.0); EOSINOPHILS % (AUTO) 1.1 % (0.0-3.0); HEMATOCRIT 41.1 % (37.0-47.0); HEMOGLOBIN 13.2 G/DL (12.0-16.0); LYMPHOCYTES % (AUTO) 46.8 % (20.0-45.0); MEAN CORPUSCULAR VOLUME 94 FL (80-99); MONOCYTES % (AUTO) 9.9 % (1.0-10.0); PLATELET COUNT 229 K/UL (150-450); RED BLOOD COUNT 4.39 M/UL (4.20-5.40); RED CELL DISTRIBUTION WIDTH 16.1 % (11.6-14.8); WHITE BLOOD COUNT 9.5 K/UL (4.8-10.8)
[2017-11-28 06:58] LABS: ALANINE AMINOTRANSFERASE 43 U/L (12-78); ALBUMIN 2.5 G/DL (3.4-5.0); ALBUMIN/GLOBULIN RATIO 0.5 (1.0-2.7); ALKALINE PHOSPHATASE 57 U/L (46-116); ANION GAP 7 mmol/L (5-15); ASPARTATE AMINO TRANSFERASE 32 U/L (15-37); BILIRUBIN,TOTAL 0.5 MG/DL (0.2-1.0); BLOOD UREA NITROGEN 13 mg/dL (7-18); CALCIUM 8.6 MG/DL (8.5-10.1); CARBON DIOXIDE 33 MMOL/L (21-32); CHLORIDE 100 MMOL/L (98-107); POTASSIUM 3.1 MMOL/L (3.5-5.1); SODIUM 140 MMOL/L (136-145)
--- NOTE | 2017-11-28 07:55 | Pulmonolgy Critical Care Note ---
Critical Care - Asmt/Plan Problems: (1) Acute toxic metabolic encephalopathy (2) Acute respiratory failure with hypoxia and hypercapnia (3) Morbid obesity (4) COPD exacerbation Respiratory: monitor respiratory rate, adjust FIO2, CXR, other - start weaning Cardiac: continue to monitor HR/BP Renal: F/U I&O, check electrolytes Infectious Disease: check cultures, continue antibiotics - on zosyn and vancomycin Gastrointestinal: continue feedings/current rate Endocrine: monitor blood sugar Hematologic: monitor H/H, transfuse if hgb<8.5 Neurologic: PRN Ativan, keep patient comfortable Affect: PRN ativan Prophylaxis: Protonix Disposition: keep in ICU Time Spent (Minutes): 40 Notes 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, ID Discussed with: nurses, consultants, case operatorsatellite manager - Objective Last 24 Hour Vital Signs Date Time Temp Pulse Resp B/P (MAP) Pulse Ox O2 Delivery O2 Flow Rate FiO2 11/28/17 07:00 99.1 78 18 130/54 100 Mechanical Ventilator 40 99.1 11/28/17 06:00 72 18 125/58 100 Mechanical Ventilator 40 11/28/17 05:18 83 21 35 11/28/17 05:00 79 19 130/62 99 Mechanical Ventilator 40 11/28/17 04:04 40 11/28/17 04:03 73 11/28/17 04:00 98.9 73 18 132/59 100 Mechanical Ventilator 40 98.9 11/28/17 03:30 70 18 35 11/28/17 03:00 68 18 137/59 100 Mechanical Ventilator 40 11/28/17 02:00 67 18 141/60 100 Mechanical Ventilator 40 11/28/17 01:01 68 18 35 11/28/17 01:00 68 18 132/56 100 Mechanical Ventilator 40 11/28/17 00:00 99.0 69 18 138/57 100 Mechanical Ventilator 40 99.0 11/28/17 00:00 40 11/28/17 00:00 69 11/27/17 23:25 70 17 35 11/27/17 23:00 71 18 116/60 100 Mechanical Ventilator 40 11/27/17 22:00 68 18 144/55 100 Mechanical Ventilator 40 11/27/17 21:00 71 18 143/55 100 Mechanical Ventilator 40 11/27/17 21:00 68 18 35 11/27/17 20:00 98.4 74 18 129/59 100 Mechanical Ventilator 40 98.4 4/20/18 20:00 40 4/20/18 20:00 74 4/20/18 19:30 69 18 35 4/20/18 19:30 89 21 155/62 96 4/20/18 19:00 81 15 129/57 97 4/20/18 18:30 70 18 125/53 99 4/20/18 18:00 70 18 118/57 100 Mechanical Ventilator 40 4/20/18 17:30 68 18 135/52 98 Mechanical Ventilator 40 4/20/18 17:12 72 18 35 4/20/18 17:00 71 18 118/58 100 Mechanical Ventilator 40 4/20/18 16:30 69 16 128/52 99 Mechanical Ventilator 40 4/20/18 16:00 68 4/20/18 16:00 72 117/55 100 Mechanical Ventilator 40 4/20/18 15:30 82 101/63 100 Mechanical Ventilator 40 4/20/18 15:11 75 18 35 4/20/18 15:00 79 20 117/68 92 Mechanical Ventilator 4/20/18 14:30 81 18 116/58 98 Mechanical Ventilator 40 4/20/18 14:00 83 18 124/58 97 Mechanical Ventilator 40 4/20/18 13:42 70 29 35 4/20/18 13:30 82 28 118/60 95 Mechanical Ventilator 40 4/20/18 13:00 40 4/20/18 13:00 87 18 122/56 85 Mechanical Ventilator 40 4/20/18 13:00 68 20 35 4/20/18 12:30 88 18 123/68 95 Mechanical Ventilator 40 4/20/18 12:00 84 18 134/58 95 Mechanical Ventilator 40 4/20/18 12:00 85 4/20/18 11:45 87 21 118/65 95 Mechanical Ventilator 40 4/20/18 11:30 86 18 121/64 94 Mechanical Ventilator 40 4/20/18 11:15 79 18 40 4/20/18 11:00 79 18 126/57 98 Mechanical Ventilator 40 4/20/18 10:45 79 18 129/54 98 Mechanical Ventilator 40 4/20/18 10:30 79 18 120/56 99 Mechanical Ventilator 40 79 4/20/18 10:15 79 18 126/55 99 Mechanical Ventilator 40 79 4/20/18 10:00 78 18 126/59 99 Mechanical Ventilator 40 78 4/20/18 09:45 77 18 122/57 99 Mechanical Ventilator 40 77 11/27/17 09:30 79 18 132/61 99 Mechanical Ventilator 40 79 11/27/17 09:15 84 17 116/60 99 Mechanical Ventilator 40 84 11/27/17 09:00 80 18 119/56 100 Mechanical Ventilator 40 80 11/27/17 08:59 85 18 40 11/27/17 08:36 80 11/27/17 08:30 80 18 114/56 99 Mechanical Ventilator 40 80 11/27/17 08:01 82 18 40 11/27/17 08:00 40 11/27/17 08:00 82 11/27/17 08:00 78 18 113/57 98 Mechanical Ventilator 40 78 11/27/17 08:00 67 Status: awake Condition: critical, improving HEENT: atraumatic Lungs: clear Heart: HR/BP stable Abdomen: soft, non-tender Extremities: no C/C/E, edema Decubiti: stage Micro: Microbiology Date/Time Source Procedure Growth Status 11/26/17 11:50 Blood Blood Culture - Preliminary Resulted 11/27/17 12:10 Sputum Induced Gram Stain - Final Resulted 11/27/17 12:10 Sputum Induced Sputum Culture Pending Resulted 11/26/17 12:10 Nasal Nares MRSA Culture - Final Staphylococcus Aureus - Mrsa Complete 11/27/17 12:30 Indwelling Cath Urine Culture - Preliminary NO GROWTH Resulted Accucheck: 143 Critical Care - Subjective ROS Limited/Unobtainable: Yes ICU Day: 2 Intubation Day: 2 Interval Events: orally intubated, looks comfortable FI02: 40 Vent Support Breath Rate: 18 Vent Support Mode: AC Vent Tidal Volume: 650 Sputum Amount: Moderate PEEP: 5.0 PIP: 44 Tube Feeding Amount: 38 I&O: Intake and Output 11/27/17 11/28/17 19:00 07:00 Intake Total 969.25 ml 1464.0 ml Output Total 740 ml 1070 ml Balance 229.25 ml 394.0 ml Intake Free Water 60 ml IV Total 891.25 ml 1120.0 ml Tube Feeding 18 ml 344 ml Output Urine Total 740 ml 1070 ml CXR: ET in good position ET-Tube: 7.5 ET Position: 23 Labs: Laboratory Tests Test 11/27/17 11:40 11/27/17 12:30 11/28/17 05:40 Vancomycin Level Trough 18.3 ug/mL (5.0-12.0) H Urine Color Pale yellow Urine Appearance Clear Urine pH 7 (4.5-8.0) Urine Specific [place] 1.005 (1.005-1.035) Urine Protein 2+ (NEGATIVE) H Urine Glucose (UA) Negative (NEGATIVE) Urine Ketones Negative (NEGATIVE) Urine Occult Blood 4+ (NEGATIVE) H Urine Nitrite Negative (NEGATIVE) Urine Bilirubin Negative (NEGATIVE) Urine Urobilinogen Normal MG/DL (0.0-1.0) Urine Leukocyte Esterase 3+ (NEGATIVE) H Urine RBC 5-10 /HPF (0 - 2) H Urine WBC 2-4 /HPF (0 - 2) Urine Squamous Epithelial Cells Few /LPF (NONE/OCC) Urine Bacteria Few /HPF (NONE) White Blood Count Pending Red Blood Count Pending Hemoglobin Pending Hematocrit Pending Mean Corpuscular Volume Pending Mean Corpuscular Hemoglobin Pending Mean Corpuscular Hemoglobin Concent Pending Red Cell Distribution Width Pending Platelet Count Pending Mean Platelet Volume Pending Neutrophils (%) (Auto) Pending Lymphocytes (%) (Auto) Pending Monocytes (%) (Auto) Pending Eosinophils (%) (Auto) Pending Basophils (%) (Auto) Pending Sodium Level 140 MMOL/L (136-145) Potassium Level 3.1 MMOL/L (3.5-5.1) L Chloride Level 100 MMOL/L (98-107) Carbon Dioxide Level 33 MMOL/L (21-32) H Anion Gap 7 mmol/L (5-15) Blood Urea Nitrogen 13 mg/dL (7-18) Creatinine 1.0 MG/DL (0.55-1.30) Estimat Glomerular Filtration Rate > 60 mL/min (>60) Glucose Level 161 MG/DL (74-106) H Calcium Level 8.6 MG/DL (8.5-10.1) Total Bilirubin 0.5 MG/DL (0.2-1.0) Aspartate Amino Transf (AST/SGOT) 32 U/L (15-37) Alanine Aminotransferase (ALT/SGPT) 43 U/L (12-78) Alkaline Phosphatase 57 U/L (46-116) Total Protein 7.4 G/DL (6.4-8.2) Albumin 2.5 G/DL (3.4-5.0) L Globulin 4.9 g/dL Albumin/Globulin Ratio 0.5 (1.0-2.7) L Digoxin Level 0.5 NG/ML (0.9-2.0) L Yariel Malone MD Nov 28, 2017 07:55
[2017-11-28] MEDS ORDERED: Potassium Chloride 40 MEQ in Sodium Chloride 500ML 550 ML IVPB ONE (09:00)
[2017-11-28] MEDS: Pantoprazole Inj IVP SCH ×2 (09:11→20:48)
[2017-11-28] MEDS: Heparin 5000 units/ml inj SUBQ SCH ×2 (09:14→20:57)
[2017-11-28] MEDS: Aspirin Baby 81mg GT SCH (09:19)
[2017-11-28] MEDS ORDERED: NS 275ml ONE (09:35)
[2017-11-28] MEDS ORDERED: Tubing IV Secondary IV ONE (09:35)
[2017-11-28] MEDS ORDERED: D5 1/2NS 1000ml IV ONE (09:35)
--- NOTE | 2017-11-28 10:36 | Diagnostic Imaging Report ---
Indication: Shortness of breath Technique: XRAY Chest 1v Comparison: 11/26/2017 Findings: Nasogastric tube is within the stomach. Endotracheal tube tip is at the level the clavicles. Cardiomediastinal silhouette is stable. Pulmonary vascular congestion is again noted. No new infiltrates are identified. Osseous structures are stable. Impression: Nasogastric tube within the stomach. Otherwise grossly stable chest.
--- NOTE | 2017-11-28 11:05 | General Surgery Progress Note ---
General Surgery-Progress Note Subjective Symptoms: improved Additional Comments doing well. comfortable. awake watching TV while on vent support. no abdominal pain Objective Last 24 Hour Vital Signs Date Time Temp Pulse Resp B/P (MAP) Pulse Ox O2 Delivery O2 Flow Rate FiO2 11/28/17 10:12 79 26 35 11/28/17 09:00 64 11/28/17 08:54 67 12 35 11/28/17 08:54 99 11/28/17 07:42 70 20 35 11/28/17 07:00 99.1 78 18 130/54 100 Mechanical Ventilator 40 99.1 11/28/17 06:00 72 18 125/58 100 Mechanical Ventilator 40 11/28/17 05:18 83 21 35 11/28/17 05:00 79 19 130/62 99 Mechanical Ventilator 40 11/28/17 04:04 40 11/28/17 04:03 73 11/28/17 04:00 98.9 73 18 132/59 100 Mechanical Ventilator 40 98.9 11/28/17 03:30 70 18 35 11/28/17 03:00 68 18 137/59 100 Mechanical Ventilator 40 11/28/17 02:00 67 18 141/60 100 Mechanical Ventilator 40 11/28/17 01:01 68 18 35 11/28/17 01:00 68 18 132/56 100 Mechanical Ventilator 40 11/28/17 00:00 99.0 69 18 138/57 100 Mechanical Ventilator 40 99.0 11/28/17 00:00 40 11/28/17 00:00 69 11/27/17 23:25 70 17 35 11/27/17 23:00 71 18 116/60 100 Mechanical Ventilator 40 11/27/17 22:00 68 18 144/55 100 Mechanical Ventilator 40 11/27/17 21:00 71 18 143/55 100 Mechanical Ventilator 40 11/27/17 21:00 68 18 35 11/27/17 20:00 98.4 74 18 129/59 100 Mechanical Ventilator 40 98.4 11/27/17 20:00 40 11/27/17 20:00 74 11/27/17 19:30 69 18 35 11/27/17 19:30 89 21 155/62 96 11/27/17 19:00 81 15 129/57 97 11/27/17 18:30 70 18 125/53 99 11/27/17 18:00 70 18 118/57 100 Mechanical Ventilator 40 11/27/17 17:30 68 18 135/52 98 Mechanical Ventilator 40 11/27/17 17:12 72 18 35 11/27/17 17:00 71 18 118/58 100 Mechanical Ventilator 40 11/27/17 16:30 69 16 128/52 99 Mechanical Ventilator 40 11/27/17 16:00 68 11/27/17 16:00 72 117/55 100 Mechanical Ventilator 40 11/27/17 15:30 82 101/63 100 Mechanical Ventilator 40 11/27/17 15:11 75 18 35 11/27/17 15:00 79 20 117/68 92 Mechanical Ventilator 11/27/17 14:30 81 18 116/58 98 Mechanical Ventilator 40 11/27/17 14:00 83 18 124/58 97 Mechanical Ventilator 40 11/27/17 13:42 70 29 35 11/27/17 13:30 82 28 118/60 95 Mechanical Ventilator 40 11/27/17 13:00 40 11/27/17 13:00 87 18 122/56 85 Mechanical Ventilator 40 11/27/17 13:00 68 20 35 11/27/17 12:30 88 18 123/68 95 Mechanical Ventilator 40 11/27/17 12:00 84 18 134/58 95 Mechanical Ventilator 40 11/27/17 12:00 85 11/27/17 11:45 87 21 118/65 95 Mechanical Ventilator 40 11/27/17 11:30 86 18 121/64 94 Mechanical Ventilator 40 11/27/17 11:15 79 18 40 I&O Intake and Output 11/27/17 11/28/17 19:00 07:00 Intake Total 969.25 ml 1464.0 ml Output Total 740 ml 1070 ml Balance 229.25 ml 394.0 ml Intake Free Water 60 ml IV Total 891.25 ml 1120.0 ml Tube Feeding 18 ml 344 ml Output Urine Total 740 ml 1070 ml Drains: none Cardiovascular: RSR Respiratory: clear Abdomen: soft, flat, non-tender, present bowel sounds Extremities: no edema, no tenderness, no cyanosis Laboratory Tests Test 11/27/17 11:40 11/27/17 12:30 11/28/17 05:40 Vancomycin Level Trough 18.3 ug/mL (5.0-12.0) H Urine Color Pale yellow Urine Appearance Clear Urine pH 7 (4.5-8.0) Urine Specific [place] 1.005 (1.005-1.035) Urine Protein 2+ (NEGATIVE) H Urine Glucose (UA) Negative (NEGATIVE) Urine Ketones Negative (NEGATIVE) Urine Occult Blood 4+ (NEGATIVE) H Urine Nitrite Negative (NEGATIVE) Urine Bilirubin Negative (NEGATIVE) Urine Urobilinogen Normal MG/DL (0.0-1.0) Urine Leukocyte Esterase 3+ (NEGATIVE) H Urine RBC 5-10 /HPF (0 - 2) H Urine WBC 2-4 /HPF (0 - 2) Urine Squamous Epithelial Cells Few /LPF (NONE/OCC) Urine Bacteria Few /HPF (NONE) White Blood Count 9.5 K/UL (4.8-10.8) Red Blood Count 4.39 M/UL (4.20-5.40) Hemoglobin 13.2 G/DL (12.0-16.0) Hematocrit 41.1 % (37.0-47.0) Mean Corpuscular Volume 94 FL (80-99) Mean Corpuscular Hemoglobin 30.0 PG (27.0-31.0) Mean Corpuscular Hemoglobin Concent 32.0 G/DL (32.0-36.0) Red Cell Distribution Width 16.1 % (11.6-14.8) H Platelet Count 229 K/UL (150-450) Mean Platelet Volume 7.0 FL (6.5-10.1) Neutrophils (%) (Auto) 41.0 % (45.0-75.0) L Lymphocytes (%) (Auto) 46.8 % (20.0-45.0) H Monocytes (%) (Auto) 9.9 % (1.0-10.0) Eosinophils (%) (Auto) 1.1 % (0.0-3.0) Basophils (%) (Auto) 1.1 % (0.0-2.0) Sodium Level 140 MMOL/L (136-145) Potassium Level 3.1 MMOL/L (3.5-5.1) L Chloride Level 100 MMOL/L (98-107) Carbon Dioxide Level 33 MMOL/L (21-32) H Anion Gap 7 mmol/L (5-15) Blood Urea Nitrogen 13 mg/dL (7-18) Creatinine 1.0 MG/DL (0.55-1.30) Estimat Glomerular Filtration Rate > 60 mL/min (>60) Glucose Level 161 MG/DL (74-106) H Calcium Level 8.6 MG/DL (8.5-10.1) Total Bilirubin 0.5 MG/DL (0.2-1.0) Aspartate Amino Transf (AST/SGOT) 32 U/L (15-37) Alanine Aminotransferase (ALT/SGPT) 43 U/L (12-78) Alkaline Phosphatase 57 U/L (46-116) Total Protein 7.4 G/DL (6.4-8.2) Albumin 2.5 G/DL (3.4-5.0) L Globulin 4.9 g/dL Albumin/Globulin Ratio 0.5 (1.0-2.7) L Digoxin Level 0.5 NG/ML (0.9-2.0) L Plan Problems: (1) Abdominal pain Assessment & Plan: initially complaining of abdominal pain which has since resolved. intubated in ICU and recovering from ALOC and respiratory distress. responsive and able to follow commands currently while intubated and improving. -hold off on imaging for now -will follow exam clinically -if pain returns or changes will continue work up thank you for this consultation. will follow with you Stevan Romero Nov 28, 2017 11:05
--- NOTE | 2017-11-28 13:50 | Internal Med Progress Note ---
Subjective Physician Name Maryjane melo Attending Physician Brittany Edmond Current Medications Medications (Trade) Dose Ordered Sig/Felipe Route PRN Reason Start Time Stop Time Status Last Admin Dose Admin Acetaminophen (Tylenol) 650 mg Q4H PRN ORAL T>100.5 11/26/17 15:30 12/26/17 15:29 11/28/17 12:19 Albuterol/ Ipratropium (Albuterol/ Ipratropium) 3 ml Q4H PRN HHN Shortness of Breath 11/26/17 15:30 12/01/17 15:29 Allopurinol (Allopurinol) 300 mg DAILY NG 11/27/17 09:00 12/27/17 08:59 11/28/17 09:13 Aspirin (ASA) 81 mg DAILY@0800 GT 11/28/17 09:00 12/28/17 08:59 11/28/17 09:19 Atorvastatin Calcium (Lipitor) 20 mg BEDTIME GT 11/28/17 21:00 12/28/17 20:59 Dextrose (Dextrose 50%) 25 ml STAT PRN IV Hypoglycemia 11/26/17 15:45 12/26/17 15:44 Dextrose (Dextrose 50%) 50 ml STAT PRN IV Hypoglycemia 11/26/17 15:45 12/26/17 15:44 Digoxin (Lanoxin) 0.25 mg DAILY ORAL 11/27/17 09:00 12/27/17 08:59 11/27/17 08:36 Heparin Sodium (Porcine) (Heparin 5000 units/ml) 5,000 units EVERY 12 HOURS SUBQ 11/26/17 21:00 12/26/17 20:59 11/28/17 09:14 Insulin Aspart (NovoLOG) BEFORE MEALS AND HS SUBQ 11/26/17 21:00 12/26/17 20:59 11/28/17 12:22 Lorazepam (Ativan 2mg/ml 1ml) 2 mg Q2H PRN IV agitation 11/26/17 15:30 12/03/17 15:29 Morphine Sulfate (Morphine Sulfate) 4 mg Q4H PRN IVP Severe Pain (Pain Scale 7-10) 11/26/17 15:30 12/03/17 15:29 11/28/17 03:48 Nitroglycerin (Ntg) 0.4 mg Q5M PRN SL Prn Chest Pain 11/26/17 15:30 12/26/17 15:29 Ondansetron HCl (Zofran) 4 mg Q6H PRN IVP Nausea & Vomiting 11/26/17 15:30 12/26/17 15:29 Pantoprazole (Protonix) 40 mg EVERY 12 HOURS IVP 11/27/17 21:00 12/27/17 20:59 11/28/17 09:11 Piperacillin Sod/ Tazobactam Sod 4.5 gm/Dextrose 110 ml @ 27.5 mls/hr Q8HR@0400,1200,2000 IVPB 11/26/17 21:00 12/03/17 20:59 11/28/17 12:18 Vancomycin HCl (Vanco rx to dose) 1 ea DAILYPRN PRN MISC Per rx protocol 11/26/17 18:45 12/26/17 18:44 Allergies: Coded Allergies: No Known Allergies (Unverified , 06/01/17) Subjective Assessment/Plan Assessment/Plan Problem List: (1) Acute toxic metabolic encephalopathy (2) Acute respiratory failure with hypoxia and hypercapnia ICD Codes: J96.01 - Acute respiratory failure with hypoxia; J96.02 - Acute respiratory failure with hypercapnia SNOMED: 15016923, 40300608, 932535715 (3) Severe sepsis ICD Codes: A41.9 - Sepsis, unspecified organism; R65.20 - Severe sepsis without septic shock SNOMED: 40158719 (4) Aspiration pnemonia vs HCAP (5) Likely obesity hypoventilation syndrome (6) Chronic diastolic (congestive) heart failure ICD Codes: I50.32 - Chronic diastolic (congestive) heart failure SNOMED: 25641306, 431704380 (7) Hyperkalemia ICD Codes: E87.5 - Hyperkalemia SNOMED: 79128638 (8) KASHIF (acute kidney injury) ICD Codes: N17.9 - Acute kidney failure, unspecified SNOMED: 09062898 (9) GERD (gastroesophageal reflux disease) ICD Codes: K21.9 - Gastro-esophageal reflux disease without esophagitis SNOMED: 576394059 (10) DM2 (diabetes mellitus, type 2) ICD Codes: E11.9 - Type 2 diabetes mellitus without complications SNOMED: 74122448 (11) Morbid obesity ICD Codes: E66.01 - Morbid (severe) obesity due to excess calories SNOMED: 667627590, 20682339230849 (12) Fatty liver ICD Codes: K76.0 - Fatty (change of) liver, not elsewhere classified SNOMED: 607802632 (13) Abdominal pain ICD Codes: R10.9 - Unspecified abdominal pain SNOMED: 75947076 Qualifiers: Qualified Codes: R10.84 - Generalized abdominal pain Status: stable Assessment/Plan Cont ICU care Pulm/critical care consulted Cont on vent and wean as tolerated Trend ABG Daily SBTs and sedations holidays Monitor hemodynamics. No indication for pressors at this time ID consulted Empiric vanco and zosyn for aspiration pneumonia vs HCAP (CXR w/ RLL infiltrate) F/u blood cultures Check resp culture General surg eval given abdominal pain LESTER Cont SNF meds as appropriate Start tube feeds via NGT Monitor CBC, BMP Pain control, bowel regimen Supportive care PPI DVT Prophylaxis: SCD, HSQ Code Status: Full Hospital Classification Declaration: Based on this initial evaluation, and depending on the patient's clinical course, I anticipate that this patient will require hospitalization for 3-4 days for severe sepsis, respiratory failure and close respiratory/hemodynamic monitoring. At the time of my involvement, the patient's condition was critical with high potential for and/or physiologic deterioration secondary to severe sepsis , encephalopathy, acute respiratory failure as delineated in the note above. On the above date of service, I spent a total of 36 minutes in the ICU evaluating, managing, and providing critical care services to this patient, including time spent documenting these activities, counseling patient/family, and coordinating care. Discussed with DYE REEL OPERATOR re vent adjustments, ABG results. D /w pulm/critical care weaning of vent. D/w ID re broad-spectrum antibiotics Critical care services performed include: Telemetry Review Hemodynamic measurement interpretation Laboratory data review and interpretation Ventilator setting review, management, and adjustment Discussion of care plans with patient, family, and/or surrogate decision makers Discussion of patient's care with primary medical team, surgical team, and/or consulting service Decision to obtain further radiologic evaluation, after consideration of risk/ benefit ratio Decision to perform invasive procedure, after consideration of risk/benefit ratio Review of most recent microbiology results with assessment and modification of antimicrobial coverage Discussion of patient's code status and further advancement towards the ultimate goals of care Time of note may not reflect time of encounter. Subjective Subjective Date patient seen: Nov 27, 2017 Time patient seen: 12:00 ROS Limited/Unobtainable: Yes Allergies: Coded Allergies: No Known Allergies (Unverified , 06/01/17) Subjective No acute o/n events Pt intubated, sedated but arousable to voice Noted to have abdominal discomfort ROS limited as pt sedated Objective Objective Last 24 Hour Vital Signs Date Time Temp Pulse Resp B/P (MAP) Pulse Ox O2 Delivery O2 Flow Rate FiO2 11/27/17 21:00 71 18 143/55 100 Mechanical Ventilator 40 11/27/17 21:00 68 18 35 11/27/17 20:00 98.4 74 18 129/59 100 Mechanical Ventilator 40 98.4 11/27/17 20:00 40 11/27/17 20:00 74 11/27/17 19:30 69 18 35 11/27/17 19:30 89 21 155/62 96 11/27/17 19:00 81 15 129/57 97 11/27/17 18:30 70 18 125/53 99 11/27/17 18:00 70 18 118/57 100 Mechanical Ventilator 40 11/27/17 17:30 68 18 135/52 98 Mechanical Ventilator 40 11/27/17 17:12 72 18 35 11/27/17 17:00 71 18 118/58 100 Mechanical Ventilator 40 11/27/17 16:30 69 16 128/52 99 Mechanical Ventilator 40 11/27/17 16:00 68 11/27/17 16:00 72 117/55 100 Mechanical Ventilator 40 11/27/17 15:30 82 101/63 100 Mechanical Ventilator 40 11/27/17 15:11 75 18 35 11/27/17 15:00 79 20 117/68 92 Mechanical Ventilator 11/27/17 14:30 81 18 116/58 98 Mechanical Ventilator 40 11/27/17 14:00 83 18 124/58 97 Mechanical Ventilator 40 11/27/17 13:42 70 29 35 11/27/17 13:30 82 28 118/60 95 Mechanical Ventilator 40 11/27/17 13:00 40 11/27/17 13:00 87 18 122/56 85 Mechanical Ventilator 40 11/27/17 13:00 68 20 35 11/27/17 12:30 88 18 123/68 95 Mechanical Ventilator 40 11/27/17 12:00 84 18 134/58 95 Mechanical Ventilator 40 4/20/18 12:00 85 4/20/18 11:45 87 21 118/65 95 Mechanical Ventilator 40 4/20/18 11:30 86 18 121/64 94 Mechanical Ventilator 40 4/20/18 11:15 79 18 40 4/20/18 11:00 79 18 126/57 98 Mechanical Ventilator 40 4/20/18 10:45 79 18 129/54 98 Mechanical Ventilator 40 4/20/18 10:30 79 18 120/56 99 Mechanical Ventilator 40 79 4/20/18 10:15 79 18 126/55 99 Mechanical Ventilator 40 79 4/20/18 10:00 78 18 126/59 99 Mechanical Ventilator 40 78 4/20/18 09:45 77 18 122/57 99 Mechanical Ventilator 40 77 4/20/18 09:30 79 18 132/61 99 Mechanical Ventilator 40 79 4/20/18 09:15 84 17 116/60 99 Mechanical Ventilator 40 84 4/20/18 09:00 80 18 119/56 100 Mechanical Ventilator 40 80 4/20/18 08:59 85 18 40 420/18 08:36 80 4/20/18 08:30 80 18 114/56 99 Mechanical Ventilator 40 80 4/20/18 08:01 82 18 40 4/20/18 08:00 40 4/20/18 08:00 82 420/18 08:00 78 18 113/57 98 Mechanical Ventilator 40 78 4/20/18 08:00 67 4/20/18 07:30 99.2 82 18 117/53 98 Mechanical Ventilator 40 99.2 82 4/20/18 07:00 81 18 117/61 99 Mechanical Ventilator 40 420/18 06:30 99.5 80 18 122/57 99 Mechanical Ventilator 40 99.5 4/20/18 06:00 88 18 120/60 99 Mechanical Ventilator 40 4/20/18 06:00 18 420/18 05:30 88 18 115/64 99 Mechanical Ventilator 40 4/20/18 05:23 88 18 40 4/20/18 05:00 18 420/18 05:00 89 18 113/66 99 Mechanical Ventilator 40 4/20/18 04:30 92 18 125/69 99 Mechanical Ventilator 40 4/20/18 04:00 96 18 122/70 99 Mechanical Ventilator 40 4/20/18 04:00 40 4/20/18 04:00 18 11/27/17 04:00 67 11/27/17 03:30 76 18 114/53 99 Mechanical Ventilator 40 11/27/17 03:00 76 18 40 11/27/17 03:00 18 11/27/17 03:00 77 18 110/52 100 Mechanical Ventilator 40 11/27/17 02:30 72 18 109/53 100 Mechanical Ventilator 40 11/27/17 02:00 18 11/27/17 02:00 78 18 112/53 100 Mechanical Ventilator 40 11/27/17 01:30 78 18 133/54 100 Mechanical Ventilator 40 11/27/17 01:26 18 11/27/17 01:06 73 18 40 11/27/17 01:00 72 18 134/51 100 Mechanical Ventilator 40 11/27/17 01:00 18 11/27/17 00:58 18 11/27/17 00:30 70 18 137/51 100 Mechanical Ventilator 40 11/27/17 00:19 18 11/27/17 00:00 70 18 144/52 100 Mechanical Ventilator 40 11/27/17 00:00 40 11/27/17 00:00 18 11/27/17 00:00 67 11/26/17 23:30 68 18 150/56 100 Mechanical Ventilator 40 Intake and Output 11/26/17 11/27/17 19:00 07:00 Intake Total 37 ml 2403 ml Output Total 0 ml 1730 ml Balance 37 ml 673 ml Intake Free Water 0 ml IV Total 37 ml 2403 ml Output Urine Total 0 ml 1730 ml # Voids 1 Laboratory Tests 11/27/17 05:30: White Blood Count 10.4, Red Blood Count 4.53, Hemoglobin 12.9, Hematocrit 42.6, Mean Corpuscular Volume 94, Mean Corpuscular Hemoglobin 28.5, Mean Corpuscular Hemoglobin Concent 30.4L, Red Cell Distribution Width 16.4H, Platelet Count 246 , Mean Platelet Volume 6.8, Neutrophils (%) (Auto) 52.8, Lymphocytes (%) (Auto) 37.4, Monocytes (%) (Auto) 9.4, Eosinophils (%) (Auto) 0.0, Basophils (%) (Auto ) 0.5, Prothrombin Time 11.5, Prothromb Time International Ratio 1.1, Activated Partial Thromboplast Time 32, Sodium Level 138, Potassium Level 3.7, Chloride Level 96L, Carbon Dioxide Level 31, Anion Gap 11, Blood Urea Nitrogen 14, Creatinine 1.1#, Estimat Glomerular Filtration Rate > 60, Glucose Level 208H, Calcium Level 9.2, Phosphorus Level 1.6L, Total Bilirubin 0.5, Direct Bilirubin 0.1, Aspartate Amino Transf (AST/SGOT) 37, Alanine Aminotransferase (ALT/SGPT) 45, Alkaline Phosphatase 56, Lactate Dehydrogenase 355H, Total Protein 7.7, Albumin 2.6L, Globulin 5.1, Albumin/Globulin Ratio 0.5L 11/27/17 11:40: Vancomycin Level Trough 18.3H 11/27/17 12:30: Urine Color Pale yellow, Urine Appearance Clear, Urine pH 7, Urine Specific Ward 1.005, Urine Protein 2+H, Urine Glucose (UA) Negative, Urine Ketones Negative, Urine Occult Blood 4+H, Urine Nitrite Negative, Urine Bilirubin Negative, Urine Urobilinogen Normal, Urine Leukocyte Esterase 3+H, Urine RBC 5- 10H, Urine WBC 2-4, Urine Squamous Epithelial Cells Few, Urine Bacteria Few Height (Feet): 5 Height (Inches): 4.00 Weight (Pounds): 425 Objective Last Vital Signs Date Time Temp Pulse Resp B/P (MAP) Pulse Ox O2 Delivery O2 Flow Rate FiO2 11/28/17 13:18 99.1 11/28/17 13:09 71 18 35 11/28/17 12:00 142/43 99 Mechanical Ventilator Laboratory Tests Test 11/28/17 05:40 11/28/17 11:36 White Blood Count 9.5 K/UL (4.8-10.8) Red Blood Count 4.39 M/UL (4.20-5.40) Hemoglobin 13.2 G/DL (12.0-16.0) Hematocrit 41.1 % (37.0-47.0) Mean Corpuscular Volume 94 FL (80-99) Mean Corpuscular Hemoglobin 30.0 PG (27.0-31.0) Mean Corpuscular Hemoglobin Concent 32.0 G/DL (32.0-36.0) Red Cell Distribution Width 16.1 % (11.6-14.8) H Platelet Count 229 K/UL (150-450) Mean Platelet Volume 7.0 FL (6.5-10.1) Neutrophils (%) (Auto) 41.0 % (45.0-75.0) L Lymphocytes (%) (Auto) 46.8 % (20.0-45.0) H Monocytes (%) (Auto) 9.9 % (1.0-10.0) Eosinophils (%) (Auto) 1.1 % (0.0-3.0) Basophils (%) (Auto) 1.1 % (0.0-2.0) Sodium Level 140 MMOL/L (136-145) Potassium Level 3.1 MMOL/L (3.5-5.1) L Chloride Level 100 MMOL/L (98-107) Carbon Dioxide Level 33 MMOL/L (21-32) H Anion Gap 7 mmol/L (5-15) Blood Urea Nitrogen 13 mg/dL (7-18) Creatinine 1.0 MG/DL (0.55-1.30) Estimat Glomerular Filtration Rate > 60 mL/min (>60) Glucose Level 161 MG/DL (74-106) H Calcium Level 8.6 MG/DL (8.5-10.1) Total Bilirubin 0.5 MG/DL (0.2-1.0) Aspartate Amino Transf (AST/SGOT) 32 U/L (15-37) Alanine Aminotransferase (ALT/SGPT) 43 U/L (12-78) Alkaline Phosphatase 57 U/L (46-116) Total Protein 7.4 G/DL (6.4-8.2) Albumin 2.5 G/DL (3.4-5.0) L Globulin 4.9 g/dL Albumin/Globulin Ratio 0.5 (1.0-2.7) L Digoxin Level 0.5 NG/ML (0.9-2.0) L Arterial Blood pH 7.350 (7.350-7.450) Arterial Blood Partial Pressure CO2 65.3 mmHg (35.0-45.0) *H Arterial Blood Partial Pressure O2 102.9 mmHg (75.0-100.0) H Arterial Blood HCO3 35.9 mmol/L (22.0-26.0) H Arterial Blood Oxygen Saturation 97.1 % (92.0-98.0) Arterial Blood Base Excess 8.2 Doroteo Test Positive Microbiology Date/Time Source Procedure Growth Status 11/26/17 11:50 Blood Blood Culture - Preliminary Resulted 11/26/17 11:45 Blood Blood Culture - Preliminary NO GROWTH AFTER 24 HOURS Resulted 11/27/17 12:10 Sputum Induced Gram Stain - Final Resulted 11/27/17 12:10 Sputum Induced Sputum Culture - Preliminary NO GROWTH AFTER 24 HOURS Resulted 11/26/17 12:10 Nasal Nares MRSA Culture - Final Staphylococcus Aureus - Mrsa Complete 11/27/17 12:30 Indwelling Cath Urine Culture - Preliminary NO GROWTH Resulted 11/26/17 12:10 Rectal Mucosa VRE Culture - Final Enterococcus Faecalis - Vre Complete Intake and Output 11/27/17 11/28/17 19:00 07:00 Intake Total 969.25 ml 1464.0 ml Output Total 740 ml 1070 ml Balance 229.25 ml 394.0 ml Intake Free Water 60 ml IV Total 891.25 ml 1120.0 ml Tube Feeding 18 ml 344 ml Output Urine Total 740 ml 1070 ml Maryjane Simon M.D. Nov 28, 2017 13:50
--- NOTE | 2017-11-28 16:52 | Infectious Diseases Prog Note ---
Assessment/Plan Assessment/Plan ASSESSMENT AND PLAN: 1. pna, gram + blood cultures, sepsis, ? uti, + ua - continue zosyn and vancomycin - check surveillance blood cultures and ID of blood cultures - check labs, cultures and chest x-ray 2. Respiratory failure, on vent, no pressors 3. Vargas. 4. The patient has history of hypertension. 5. Diabetes. 6. Hyperlipidemia. 7. Blood sugar and blood pressure treatment per primary. 8. History of asthma. 9. History of myocardial infarction and coronary artery disease. 10. History of heart failure/congestive heart failure. 11. History of gout. 12. History of sepsis and pneumonia. 13. History of muscle weakness. 14. Gastroesophageal reflux disease. 15. Past orders were noted. 16. Allergies are negative. 17. Family History is noncontributory. 18. Social history is negative. 19. MAR was noted. 20. Case discussed with RN. 21. Continue treatment per primary and consultants. 22. Case discussed with Dr. Matthews. 23. Case discussed with RN in the ICU. 24. Orders were noted and entered. 25. Notes and records were noted. 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 Subjective Constitutional: Reports: fatigue, other - intubated, on a vent ; Denies: fever HEENT: Reports: other Respiratory: Reports: shortness of breath Cardiovascular: Denies: chest pain Gastrointestinal/Abdominal: Denies: nausea, vomiting, diarrhea Genitourinary: Reports: other Neurologic: Denies: headache Psychiatric: Denies: depression Skin: Denies: rash Hematologic: Denies: bleeding Allergies: Coded Allergies: No Known Allergies (Unverified , 06/01/17) Objective Vital Signs Last 24 Hour Vital Signs Date Time Temp Pulse Resp B/P (MAP) Pulse Ox O2 Delivery O2 Flow Rate FiO2 11/28/17 14:55 72 18 35 11/28/17 14:00 67 18 129/50 100 Mechanical Ventilator 35 11/28/17 13:18 99.1 11/28/17 13:09 71 18 35 11/28/17 13:00 99.0 69 18 118/45 100 Mechanical Ventilator 35 99.0 11/28/17 12:19 99.1 11/28/17 12:00 84 18 142/43 99 Mechanical Ventilator 35 11/28/17 12:00 84 4/21/18 11:00 35 11/28/17 11:00 86 27 140/47 99 Mechanical Ventilator 40 11/28/17 10:12 79 26 35 11/28/17 10:00 78 25 134/54 100 Mechanical Ventilator 40 11/28/17 09:00 71 17 115/48 100 Mechanical Ventilator 40 11/28/17 09:00 35 11/28/17 09:00 64 11/28/17 08:54 67 12 35 11/28/17 08:54 99 11/28/17 08:00 77 18 140/56 100 Mechanical Ventilator 40 11/28/17 08:00 77 11/28/17 07:42 70 20 35 11/28/17 07:00 99.1 78 18 130/54 100 Mechanical Ventilator 40 99.1 11/28/17 06:00 72 18 125/58 100 Mechanical Ventilator 40 11/28/17 05:18 83 21 35 11/28/17 05:00 79 19 130/62 99 Mechanical Ventilator 40 11/28/17 04:04 40 11/28/17 04:03 73 11/28/17 04:00 98.9 73 18 132/59 100 Mechanical Ventilator 40 98.9 11/28/17 03:30 70 18 35 11/28/17 03:00 68 18 137/59 100 Mechanical Ventilator 40 11/28/17 02:00 67 18 141/60 100 Mechanical Ventilator 40 11/28/17 01:01 68 18 35 11/28/17 01:00 68 18 132/56 100 Mechanical Ventilator 40 11/28/17 00:00 99.0 69 18 138/57 100 Mechanical Ventilator 40 99.0 11/28/17 00:00 40 11/28/17 00:00 69 11/27/17 23:25 70 17 35 11/27/17 23:00 71 18 116/60 100 Mechanical Ventilator 40 11/27/17 22:00 68 18 144/55 100 Mechanical Ventilator 40 11/27/17 21:00 71 18 143/55 100 Mechanical Ventilator 40 11/27/17 21:00 68 18 35 11/27/17 20:00 98.4 74 18 129/59 100 Mechanical Ventilator 40 98.4 11/27/17 20:00 40 11/27/17 20:00 74 11/27/17 19:30 69 18 35 11/27/17 19:30 89 21 155/62 96 11/27/17 19:00 81 15 129/57 97 18 18:30 70 18 125/53 99 18 18:00 70 18 118/57 100 Mechanical Ventilator 40 11/27/17 17:30 68 18 135/52 98 Mechanical Ventilator 40 11/27/17 17:12 72 18 35 11/27/17 17:00 71 18 118/58 100 Mechanical Ventilator 40 Height (Feet): 5 Height (Inches): 4.00 Weight (Pounds): 420 General Appearance: no acute distress HEENT: normocephalic, atraumatic, anicteric Respiratory/Chest: respiratory distress, crackles/rales, rhonchi - bilaterally , other - on vent Cardiovascular: normal rate, regular rhythm, no gallop/murmur, no JVD Abdomen: normal bowel sounds, soft, non tender, no organomegaly, non distended Genitourinary: other - + vargas - urine clear Extremities: no cyanosis Skin: no rash Neurologic/Psychiatric: solution analyst II-XII grossly normal, alert, oriented x 3, responsive Lymphatic: no neck adenopathy Musculoskeletal: no effusion Objective Chest x-ray - 11/28 - Technique: XRAY Chest 1v Comparison: 11/26/2017 Findings: Nasogastric tube is within the stomach. Endotracheal tube tip is at the level the clavicles. Cardiomediastinal silhouette is stable. Pulmonary vascular congestion is again noted. No new infiltrates are identified. Osseous structures are stable. Impression: Nasogastric tube within the stomach. Otherwise grossly stable chest. Microbiology Date/Time Source Procedure Growth Status 11/26/17 11:50 Blood Blood Culture - Preliminary Resulted 11/26/17 11:45 Blood Blood Culture - Preliminary NO GROWTH AFTER 24 HOURS Resulted 11/27/17 12:10 Sputum Induced Gram Stain - Final Resulted 11/27/17 12:10 Sputum Induced Sputum Culture - Preliminary NO GROWTH AFTER 24 HOURS Resulted 11/26/17 12:10 Nasal Nares MRSA Culture - Final Staphylococcus Aureus - Mrsa Complete 11/27/17 12:30 Indwelling Cath Urine Culture - Preliminary NO GROWTH Resulted 11/26/17 12:10 Rectal Mucosa VRE Culture - Final Enterococcus Faecalis - Vre Complete Laboratory Tests Test 11/28/17 05:40 11/28/17 11:36 White Blood Count 9.5 K/UL (4.8-10.8) Red Blood Count 4.39 M/UL (4.20-5.40) Hemoglobin 13.2 G/DL (12.0-16.0) Hematocrit 41.1 % (37.0-47.0) Mean Corpuscular Volume 94 FL (80-99) Mean Corpuscular Hemoglobin 30.0 PG (27.0-31.0) Mean Corpuscular Hemoglobin Concent 32.0 G/DL (32.0-36.0) Red Cell Distribution Width 16.1 % (11.6-14.8) H Platelet Count 229 K/UL (150-450) Mean Platelet Volume 7.0 FL (6.5-10.1) Neutrophils (%) (Auto) 41.0 % (45.0-75.0) L Lymphocytes (%) (Auto) 46.8 % (20.0-45.0) H Monocytes (%) (Auto) 9.9 % (1.0-10.0) Eosinophils (%) (Auto) 1.1 % (0.0-3.0) Basophils (%) (Auto) 1.1 % (0.0-2.0) Sodium Level 140 MMOL/L (136-145) Potassium Level 3.1 MMOL/L (3.5-5.1) L Chloride Level 100 MMOL/L (98-107) Carbon Dioxide Level 33 MMOL/L (21-32) H Anion Gap 7 mmol/L (5-15) Blood Urea Nitrogen 13 mg/dL (7-18) Creatinine 1.0 MG/DL (0.55-1.30) Estimat Glomerular Filtration Rate > 60 mL/min (>60) Glucose Level 161 MG/DL (74-106) H Calcium Level 8.6 MG/DL (8.5-10.1) Total Bilirubin 0.5 MG/DL (0.2-1.0) Aspartate Amino Transf (AST/SGOT) 32 U/L (15-37) Alanine Aminotransferase (ALT/SGPT) 43 U/L (12-78) Alkaline Phosphatase 57 U/L (46-116) Total Protein 7.4 G/DL (6.4-8.2) Albumin 2.5 G/DL (3.4-5.0) L Globulin 4.9 g/dL Albumin/Globulin Ratio 0.5 (1.0-2.7) L Digoxin Level 0.5 NG/ML (0.9-2.0) L Arterial Blood pH 7.350 (7.350-7.450) Arterial Blood Partial Pressure CO2 65.3 mmHg (35.0-45.0) *H Arterial Blood Partial Pressure O2 102.9 mmHg (75.0-100.0) H Arterial Blood HCO3 35.9 mmol/L (22.0-26.0) H Arterial Blood Oxygen Saturation 97.1 % (92.0-98.0) Arterial Blood Base Excess 8.2 Doroteo Test Positive Current Medications Medications (Trade) Dose Ordered Sig/Felipe Route PRN Reason Start Time Stop Time Status Last Admin Dose Admin Acetaminophen (Tylenol) 650 mg Q4H PRN ORAL T>100.5 11/26/17 15:30 12/26/17 15:29 11/28/17 12:19 Albuterol/ Ipratropium (Albuterol/ Ipratropium) 3 ml Q4H PRN HHN Shortness of Breath 11/26/17 15:30 12/01/17 15:29 Allopurinol (Allopurinol) 300 mg DAILY NG 11/27/17 09:00 12/27/17 08:59 11/28/17 09:13 Aspirin (ASA) 81 mg DAILY@0800 GT 11/28/17 09:00 12/28/17 08:59 11/28/17 09:19 Atorvastatin Calcium (Lipitor) 20 mg BEDTIME GT 11/28/17 21:00 12/28/17 20:59 Dextrose (Dextrose 50%) 25 ml STAT PRN IV Hypoglycemia 11/26/17 15:45 12/26/17 15:44 Dextrose (Dextrose 50%) 50 ml STAT PRN IV Hypoglycemia 11/26/17 15:45 12/26/17 15:44 Digoxin (Lanoxin) 0.25 mg DAILY ORAL 11/27/17 09:00 12/27/17 08:59 11/27/17 08:36 Heparin Sodium (Porcine) (Heparin 5000 units/ml) 5,000 units EVERY 12 HOURS SUBQ 11/26/17 21:00 12/26/17 20:59 11/28/17 09:14 Insulin Aspart (NovoLOG) BEFORE MEALS AND HS SUBQ 11/26/17 21:00 12/26/17 20:59 11/28/17 12:22 Lorazepam (Ativan 2mg/ml 1ml) 2 mg Q2H PRN IV agitation 11/26/17 15:30 12/03/17 15:29 Morphine Sulfate (Morphine Sulfate) 4 mg Q4H PRN IVP Severe Pain (Pain Scale 7-10) 11/26/17 15:30 12/03/17 15:29 11/28/17 03:48 Nitroglycerin (Ntg) 0.4 mg Q5M PRN SL Prn Chest Pain 11/26/17 15:30 12/26/17 15:29 Ondansetron HCl (Zofran) 4 mg Q6H PRN IVP Nausea & Vomiting 11/26/17 15:30 12/26/17 15:29 Pantoprazole (Protonix) 40 mg EVERY 12 HOURS IVP 11/27/17 21:00 12/27/17 20:59 11/28/17 09:11 Piperacillin Sod/ Tazobactam Sod 4.5 gm/Dextrose 110 ml @ 27.5 mls/hr Q8HR@0400,1200,2000 IVPB 11/26/17 21:00 12/03/17 20:59 11/28/17 12:18 Vancomycin HCl (Vanco rx to dose) 1 ea DAILYPRN PRN MISC Per rx protocol 11/26/17 18:45 12/26/17 18:44 JUNI ABDUL Nov 28, 2017 16:52
[2017-11-28] MEDS ORDERED: Vancomycin 1.5gm/D5W 250ml 250 ML IVPB SCH (20:00)
[2017-11-28] MEDS ORDERED: Vancomycin 1250mg/D5W 250ml 250 ML IVPB SCH (21:00)
[2017-11-29] VITALS (24 sets, daily range): BP systolic 108–156; BP diastolic 42–63
[2017-11-29] MEDS: Piperacillin/Tazobactam 4.5 GM in D5W 110 ML IVPB SCH ×3 (03:34→20:20)
[2017-11-29 05:16] LABS: BASOPHILS % (AUTO) 0.9 % (0.0-2.0); EOSINOPHILS % (AUTO) 2.2 % (0.0-3.0); HEMATOCRIT 39.5 % (37.0-47.0); HEMOGLOBIN 12.3 G/DL (12.0-16.0); LYMPHOCYTES % (AUTO) 42.1 % (20.0-45.0); MEAN CORPUSCULAR VOLUME 94 FL (80-99); NEUTROPHILS % (AUTO) 43.8 % (45.0-75.0); PLATELET COUNT 205 K/UL (150-450); RED CELL DISTRIBUTION WIDTH 16.5 % (11.6-14.8); WHITE BLOOD COUNT 9.4 K/UL (4.8-10.8)
[2017-11-29 05:33] LABS: ALANINE AMINOTRANSFERASE 39 U/L (12-78); ALBUMIN 2.5 G/DL (3.4-5.0); ALBUMIN/GLOBULIN RATIO 0.5 (1.0-2.7); ALKALINE PHOSPHATASE 55 U/L (46-116); ANION GAP 8 mmol/L (5-15); ASPARTATE AMINO TRANSFERASE 26 U/L (15-37); BILIRUBIN,TOTAL 0.6 MG/DL (0.2-1.0); BLOOD UREA NITROGEN 15 mg/dL (7-18); CARBON DIOXIDE 31 MMOL/L (21-32); CHLORIDE 102 MMOL/L (98-107); CREATININE 0.8 MG/DL (0.55-1.30); PHOSPHORUS 3.3 MG/DL (2.5-4.9); POTASSIUM 3.1 MMOL/L (3.5-5.1); SODIUM 141 MMOL/L (136-145)
[2017-11-29] MEDS: NovoLOG Insulin Flexpen SUBQ SCH ×4 (06:15→20:22)
[2017-11-29] MEDS: Aspirin Baby 81mg GT SCH (08:00)
[2017-11-29] MEDS: Pantoprazole Inj IVP SCH ×2 (09:11→20:21)
[2017-11-29] MEDS: Heparin 5000 units/ml inj SUBQ SCH ×2 (09:39→20:21)
--- NOTE | 2017-11-29 09:48 | Diagnostic Imaging Report ---
Indication: Chest pain Technique: XRAY Chest 1v Comparison: 11/28/2017 Findings: Nasogastric tube is no longer seen. Endotracheal tube is unchanged. The heart and lungs are stable without new infiltrates. Degenerative changes of the spine are present. Impression: Interval removal of nasogastric tube. Otherwise stable chest.
--- NOTE | 2017-11-29 10:53 | General Surgery Progress Note ---
General Surgery-Progress Note Subjective Symptoms: improved Objective Last 24 Hour Vital Signs Date Time Temp Pulse Resp B/P (MAP) Pulse Ox O2 Delivery O2 Flow Rate FiO2 11/29/17 08:48 78 32 35 11/29/17 08:47 100 11/29/17 07:29 68 16 35 11/29/17 07:00 60 18 127/47 98 Mechanical Ventilator 35 11/29/17 06:00 63 18 108/60 98 Mechanical Ventilator 35 11/29/17 05:23 68 18 35 11/29/17 05:00 98.2 63 18 127/51 98 Mechanical Ventilator 35 98.2 11/29/17 04:00 59 18 138/53 98 Mechanical Ventilator 35 11/29/17 04:00 74 11/29/17 04:00 35 11/29/17 03:00 55 18 133/55 98 Mechanical Ventilator 35 11/29/17 02:49 60 18 35 11/29/17 02:00 55 18 117/56 97 Mechanical Ventilator 35 11/29/17 01:44 40 11/29/17 01:41 55 18 35 11/29/17 01:00 57 18 115/48 97 Mechanical Ventilator 35 11/29/17 00:00 35 11/29/17 00:00 98.4 75 18 140/63 98 Mechanical Ventilator 35 98.4 11/29/17 00:00 69 11/28/17 23:00 75 18 140/63 98 Mechanical Ventilator 35 11/28/17 22:55 71 20 35 11/28/17 22:00 64 18 119/67 99 Mechanical Ventilator 35 11/28/17 21:00 64 18 143/55 99 Mechanical Ventilator 35 11/28/17 20:58 66 18 35 11/28/17 20:00 99.0 64 18 125/53 100 Mechanical Ventilator 35 99.0 11/28/17 20:00 63 11/28/17 20:00 35 11/28/17 19:15 64 18 35 11/28/17 19:00 67 18 113/58 100 Mechanical Ventilator 35 11/28/17 18:00 66 18 128/58 100 Mechanical Ventilator 35 11/28/17 17:05 77 21 35 11/28/17 17:00 98.3 67 18 126/66 100 Mechanical Ventilator 35 98.3 11/28/17 16:00 67 18 137/46 99 Mechanical Ventilator 35 11/28/17 16:00 67 11/28/17 16:00 35 11/28/17 15:00 69 18 141/54 99 Mechanical Ventilator 35 11/28/17 14:55 72 18 35 11/28/17 14:00 67 18 129/50 100 Mechanical Ventilator 35 11/28/17 13:18 99.1 11/28/17 13:09 71 18 35 11/28/17 13:00 99.0 69 18 118/45 100 Mechanical Ventilator 35 99.0 11/28/17 12:19 99.1 11/28/17 12:00 84 18 142/43 99 Mechanical Ventilator 35 11/28/17 12:00 84 11/28/17 12:00 35 11/28/17 11:00 35 11/28/17 11:00 86 27 140/47 99 Mechanical Ventilator 40 I&O Intake and Output 11/28/17 11/29/17 19:00 07:00 Intake Total 566 ml 474.0 ml Output Total 565 ml 740 ml Balance 1 ml -266.0 ml IV Total 110 ml 360.0 ml Tube Feeding 456 ml 114 ml Output Urine Total 565 ml 740 ml Stool Total 0 ml Cardiovascular: RSR Respiratory: clear, other - on vent Abdomen: soft, non-tender, present bowel sounds, other Extremities: no cyanosis Laboratory Tests Test 11/28/17 11:36 11/28/17 18:10 11/29/17 03:50 11/29/17 08:45 Arterial Blood pH 7.350 (7.350-7.450) 7.387 (7.350-7.450) Arterial Blood Partial Pressure CO2 65.3 mmHg (35.0-45.0) *H 65.5 mmHg (35.0-45.0) *H Arterial Blood Partial Pressure O2 102.9 mmHg (75.0-100.0) H 113.9 mmHg (75.0-100.0) H Arterial Blood HCO3 35.9 mmol/L (22.0-26.0) H 38.5 mmol/L (22.0-26.0) H Arterial Blood Oxygen Saturation 97.1 % (92.0-98.0) 97.6 % (92.0-98.0) Arterial Blood Base Excess 8.2 11.0 Doroteo Test Positive Positive Random Vancomycin Level 6.4 ug/mL White Blood Count 9.4 K/UL (4.8-10.8) Red Blood Count 4.20 M/UL (4.20-5.40) Hemoglobin 12.3 G/DL (12.0-16.0) Hematocrit 39.5 % (37.0-47.0) Mean Corpuscular Volume 94 FL (80-99) Mean Corpuscular Hemoglobin 29.3 PG (27.0-31.0) Mean Corpuscular Hemoglobin Concent 31.1 G/DL (32.0-36.0) L Red Cell Distribution Width 16.5 % (11.6-14.8) H Platelet Count 205 K/UL (150-450) Mean Platelet Volume 7.1 FL (6.5-10.1) Neutrophils (%) (Auto) 43.8 % (45.0-75.0) L Lymphocytes (%) (Auto) 42.1 % (20.0-45.0) Monocytes (%) (Auto) 11.0 % (1.0-10.0) H Eosinophils (%) (Auto) 2.2 % (0.0-3.0) Basophils (%) (Auto) 0.9 % (0.0-2.0) Sodium Level 141 MMOL/L (136-145) Potassium Level 3.1 MMOL/L (3.5-5.1) L Chloride Level 102 MMOL/L (98-107) Carbon Dioxide Level 31 MMOL/L (21-32) Anion Gap 8 mmol/L (5-15) Blood Urea Nitrogen 15 mg/dL (7-18) Creatinine 0.8 MG/DL (0.55-1.30) Estimat Glomerular Filtration Rate > 60 mL/min (>60) Glucose Level 145 MG/DL (74-106) H Calcium Level 9.0 MG/DL (8.5-10.1) Phosphorus Level 3.3 MG/DL (2.5-4.9) Magnesium Level 1.8 MG/DL (1.8-2.4) Total Bilirubin 0.6 MG/DL (0.2-1.0) Aspartate Amino Transf (AST/SGOT) 26 U/L (15-37) Alanine Aminotransferase (ALT/SGPT) 39 U/L (12-78) Alkaline Phosphatase 55 U/L (46-116) Total Protein 7.5 G/DL (6.4-8.2) Albumin 2.5 G/DL (3.4-5.0) L Globulin 5.0 g/dL Albumin/Globulin Ratio 0.5 (1.0-2.7) L Plan Problems: (1) Abdominal pain Assessment & Plan: initially complaining of abdominal pain which has since resolved. intubated in ICU and recovering from ALOC and respiratory distress. responsive and able to follow commands currently while intubated and improving. -hold off on imaging for now -will follow exam clinically -if pain returns or changes will continue work up thank you for this consultation. will follow with you Stevan Romero Nov 29, 2017 10:53
[2017-11-29] MEDS: Vancomycin 1gm in D5W 275ml IVPB SCH ×2 (12:15→20:21)
--- NOTE | 2017-11-29 12:18 | General Progress Note ---
Subjective Allergies: Coded Allergies: No Known Allergies (Unverified , 06/01/17) Subjective Assessment/Plan Assessment/Plan Problem List: (1) Acute toxic metabolic encephalopathy (2) Acute respiratory failure with hypoxia and hypercapnia ICD Codes: J96.01 - Acute respiratory failure with hypoxia; J96.02 - Acute respiratory failure with hypercapnia SNOMED: 08856134, 08897149, 968409944 (3) Severe sepsis ICD Codes: A41.9 - Sepsis, unspecified organism; R65.20 - Severe sepsis without septic shock SNOMED: 30122070 (4) Aspiration pnemonia vs HCAP (5) Likely obesity hypoventilation syndrome (6) Chronic diastolic (congestive) heart failure ICD Codes: I50.32 - Chronic diastolic (congestive) heart failure SNOMED: 41426053, 057080939 (7) Hyperkalemia ICD Codes: E87.5 - Hyperkalemia SNOMED: 98777001 (8) KASHIF (acute kidney injury) ICD Codes: N17.9 - Acute kidney failure, unspecified SNOMED: 43066459 (9) GERD (gastroesophageal reflux disease) ICD Codes: K21.9 - Gastro-esophageal reflux disease without esophagitis SNOMED: 749493877 (10) DM2 (diabetes mellitus, type 2) ICD Codes: E11.9 - Type 2 diabetes mellitus without complications SNOMED: 90990300 (11) Morbid obesity ICD Codes: E66.01 - Morbid (severe) obesity due to excess calories SNOMED: 065011526, 45799114444159 (12) Fatty liver ICD Codes: K76.0 - Fatty (change of) liver, not elsewhere classified SNOMED: 970923959 (13) Abdominal pain ICD Codes: R10.9 - Unspecified abdominal pain SNOMED: 17650613 Qualifiers: Qualified Codes: R10.84 - Generalized abdominal pain Status: stable Assessment/Plan Cont ICU care Pulm/critical care consulted Cont on vent and wean as tolerated Trend ABG Daily SBTs and sedations holidays Monitor hemodynamics. No indication for pressors at this time ID consulted Empiric vanco and zosyn for aspiration pneumonia vs HCAP (CXR w/ RLL infiltrate) F/u blood cultures Check resp culture General surg eval given abdominal pain LESTER Cont SNF meds as appropriate Start tube feeds via NGT Monitor CBC, BMP Pain control, bowel regimen Supportive care PPI DVT Prophylaxis: SCD, HSQ Code Status: Full Hospital Classification Declaration: Based on this initial evaluation, and depending on the patient's clinical course, I anticipate that this patient will require hospitalization for 3-4 days for severe sepsis, respiratory failure and close respiratory/hemodynamic monitoring. At the time of my involvement, the patient's condition was critical with high potential for and/or physiologic deterioration secondary to severe sepsis , encephalopathy, acute respiratory failure as delineated in the note above. On the above date of service, I spent a total of 36 minutes in the ICU evaluating, managing, and providing critical care services to this patient, including time spent documenting these activities, counseling patient/family, and coordinating care. Discussed with AUT[employer]OTIVE PRODUCT [employer]IST re vent adjustments, ABG results. D /w pulm/critical care weaning of vent. D/w ID re broad-spectrum antibiotics Critical care services performed include: Telemetry Review Hemodynamic measurement interpretation Laboratory data review and interpretation Ventilator setting review, management, and adjustment Discussion of care plans with patient, family, and/or surrogate decision makers Discussion of patient's care with primary medical team, surgical team, and/or consulting service Decision to obtain further radiologic evaluation, after consideration of risk/ benefit ratio Decision to perform invasive procedure, after consideration of risk/benefit ratio Review of most recent microbiology results with assessment and modification of antimicrobial coverage Discussion of patient's code status and further advancement towards the ultimate goals of care Time of note may not reflect time of encounter. Subjective Subjective Date patient seen: Nov 27, 2017 Time patient seen: 12:00 ROS Limited/Unobtainable: Yes Allergies: Coded Allergies: No Known Allergies (Unverified , 06/01/17) Subjective No acute o/n events Pt intubated, sedated but arousable to voice Noted to have abdominal discomfort ROS limited as pt sedated Objective Objective Last 24 Hour Vital Signs Date Time Temp Pulse Resp B/P (MAP) Pulse Ox O2 Delivery O2 Flow Rate FiO2 11/27/17 21:00 71 18 143/55 100 Mechanical Ventilator 40 11/27/17 21:00 68 18 35 11/27/17 20:00 98.4 74 18 129/59 100 Mechanical Ventilator 40 98.4 11/27/17 20:00 40 11/27/17 20:00 74 11/27/17 19:30 69 18 35 11/27/17 19:30 89 21 155/62 96 4/20/18 19:00 81 15 129/57 97 4/20/18 18:30 70 18 125/53 99 4/20/18 18:00 70 18 118/57 100 Mechanical Ventilator 40 4/20/18 17:30 68 18 135/52 98 Mechanical Ventilator 40 4/20/18 17:12 72 18 35 4/20/18 17:00 71 18 118/58 100 Mechanical Ventilator 40 4/20/18 16:30 69 16 128/52 99 Mechanical Ventilator 40 4/20/18 16:00 68 4/20/18 16:00 72 117/55 100 Mechanical Ventilator 40 4/20/18 15:30 82 101/63 100 Mechanical Ventilator 40 4/20/18 15:11 75 18 35 4/20/18 15:00 79 20 117/68 92 Mechanical Ventilator 4/20/18 14:30 81 18 116/58 98 Mechanical Ventilator 40 4/20/18 14:00 83 18 124/58 97 Mechanical Ventilator 40 4/20/18 13:42 70 29 35 4/20/18 13:30 82 28 118/60 95 Mechanical Ventilator 40 4/20/18 13:00 40 4/20/18 13:00 87 18 122/56 85 Mechanical Ventilator 40 4/20/18 13:00 68 20 35 4/20/18 12:30 88 18 123/68 95 Mechanical Ventilator 40 4/20/18 12:00 84 18 134/58 95 Mechanical Ventilator 40 4/20/18 12:00 85 4/20/18 11:45 87 21 118/65 95 Mechanical Ventilator 40 4/20/18 11:30 86 18 121/64 94 Mechanical Ventilator 40 4/20/18 11:15 79 18 40 4/20/18 11:00 79 18 126/57 98 Mechanical Ventilator 40 4/20/18 10:45 79 18 129/54 98 Mechanical Ventilator 40 4/20/18 10:30 79 18 120/56 99 Mechanical Ventilator 40 79 4/20/18 10:15 79 18 126/55 99 Mechanical Ventilator 40 79 4/20/18 10:00 78 18 126/59 99 Mechanical Ventilator 40 78 4/20/18 09:45 77 18 122/57 99 Mechanical Ventilator 40 77 4/20/18 09:30 79 18 132/61 99 Mechanical Ventilator 40 79 4/20/18 09:15 84 17 116/60 99 Mechanical Ventilator 40 84 4/20/18 09:00 80 18 119/56 100 Mechanical Ventilator 40 80 4/20/18 08:59 85 18 40 4/20/18 08:36 80 4/20/18 08:30 80 18 114/56 99 Mechanical Ventilator 40 80 4/20/18 08:01 82 18 40 4/20/18 08:00 40 4/20/18 08:00 82 4/20/18 08:00 78 18 113/57 98 Mechanical Ventilator 40 78 4/20/18 08:00 67 4/20/18 07:30 99.2 82 18 117/53 98 Mechanical Ventilator 40 99.2 82 4/20/18 07:00 81 18 117/61 99 Mechanical Ventilator 40 4/20/18 06:30 99.5 80 18 122/57 99 Mechanical Ventilator 40 99.5 4/20/18 06:00 88 18 120/60 99 Mechanical Ventilator 40 4/20/18 06:00 18 4/20/18 05:30 88 18 115/64 99 Mechanical Ventilator 40 4/20/18 05:23 88 18 40 4/20/18 05:00 18 4/20/18 05:00 89 18 113/66 99 Mechanical Ventilator 40 4/20/18 04:30 92 18 125/69 99 Mechanical Ventilator 40 4/20/18 04:00 96 18 122/70 99 Mechanical Ventilator 40 4/20/18 04:00 40 4/20/18 04:00 18 4/20/18 04:00 67 4/20/18 03:30 76 18 114/53 99 Mechanical Ventilator 40 4/20/18 03:00 76 18 40 4/20/18 03:00 18 4/20/18 03:00 77 18 110/52 100 Mechanical Ventilator 40 4/20/18 02:30 72 18 109/53 100 Mechanical Ventilator 40 4/20/18 02:00 18 4/20/18 02:00 78 18 112/53 100 Mechanical Ventilator 40 4/20/18 01:30 78 18 133/54 100 Mechanical Ventilator 40 4/20/18 01:26 18 4/20/18 01:06 73 18 40 4/20/18 01:00 72 18 134/51 100 Mechanical Ventilator 40 4/20/18 01:00 18 4/20/18 00:58 18 4/20/18 00:30 70 18 137/51 100 Mechanical Ventilator 40 11/27/17 00:19 18 11/27/17 00:00 70 18 144/52 100 Mechanical Ventilator 40 11/27/17 00:00 40 11/27/17 00:00 18 11/27/17 00:00 67 11/26/17 23:30 68 18 150/56 100 Mechanical Ventilator 40 Intake and Output 11/26/17 11/27/17 19:00 07:00 Intake Total 37 ml 2403 ml Output Total 0 ml 1730 ml Balance 37 ml 673 ml Intake Free Water 0 ml IV Total 37 ml 2403 ml Output Urine Total 0 ml 1730 ml # Voids 1 Laboratory Tests 11/27/17 05:30: White Blood Count 10.4, Red Blood Count 4.53, Hemoglobin 12.9, Hematocrit 42.6, Mean Corpuscular Volume 94, Mean Corpuscular Hemoglobin 28.5, Mean Corpuscular Hemoglobin Concent 30.4L, Red Cell Distribution Width 16.4H, Platelet Count 246 , Mean Platelet Volume 6.8, Neutrophils (%) (Auto) 52.8, Lymphocytes (%) (Auto) 37.4, Monocytes (%) (Auto) 9.4, Eosinophils (%) (Auto) 0.0, Basophils (%) (Auto ) 0.5, Prothrombin Time 11.5, Prothromb Time International Ratio 1.1, Activated Partial Thromboplast Time 32, Sodium Level 138, Potassium Level 3.7, Chloride Level 96L, Carbon Dioxide Level 31, Anion Gap 11, Blood Urea Nitrogen 14, Creatinine 1.1#, Estimat Glomerular Filtration Rate > 60, Glucose Level 208H, Calcium Level 9.2, Phosphorus Level 1.6L, Total Bilirubin 0.5, Direct Bilirubin 0.1, Aspartate Amino Transf (AST/SGOT) 37, Alanine Aminotransferase (ALT/SGPT) 45, Alkaline Phosphatase 56, Lactate Dehydrogenase 355H, Total Protein 7.7, Albumin 2.6L, Globulin 5.1, Albumin/Globulin Ratio 0.5L 11/27/17 11:40: Vancomycin Level Trough 18.3H 11/27/17 12:30: Urine Color Pale yellow, Urine Appearance Clear, Urine pH 7, Urine Specific [place] 1.005, Urine Protein 2+H, Urine Glucose (UA) Negative, Urine Ketones Negative, Urine Occult Blood 4+H, Urine Nitrite Negative, Urine Bilirubin Negative, Urine Urobilinogen Normal, Urine Leukocyte Esterase 3+H, Urine RBC 5- 10H, Urine WBC 2-4, Urine Squamous Epithelial Cells Few, Urine Bacteria Few Height (Feet): 5 Height (Inches): 4.00 Weight (Pounds): 425 Objective Last 24 Hour Vital Signs Date Time Temp Pulse Resp B/P (MAP) Pulse Ox O2 Delivery O2 Flow Rate FiO2 11/29/17 11:25 81 35 35 11/29/17 08:48 78 32 35 11/29/17 08:47 100 11/29/17 07:29 68 16 35 11/29/17 07:00 60 18 127/47 98 Mechanical Ventilator 35 11/29/17 06:00 63 18 108/60 98 Mechanical Ventilator 35 11/29/17 05:23 68 18 35 11/29/17 05:00 98.2 63 18 127/51 98 Mechanical Ventilator 35 98.2 11/29/17 04:00 59 18 138/53 98 Mechanical Ventilator 35 11/29/17 04:00 74 11/29/17 04:00 35 11/29/17 03:00 55 18 133/55 98 Mechanical Ventilator 35 11/29/17 02:49 60 18 35 11/29/17 02:00 55 18 117/56 97 Mechanical Ventilator 35 11/29/17 01:44 40 11/29/17 01:41 55 18 35 11/29/17 01:00 57 18 115/48 97 Mechanical Ventilator 35 11/29/17 00:00 35 11/29/17 00:00 98.4 75 18 140/63 98 Mechanical Ventilator 35 98.4 11/29/17 00:00 69 11/28/17 23:00 75 18 140/63 98 Mechanical Ventilator 35 11/28/17 22:55 71 20 35 11/28/17 22:00 64 18 119/67 99 Mechanical Ventilator 35 11/28/17 21:00 64 18 143/55 99 Mechanical Ventilator 35 11/28/17 20:58 66 18 35 11/28/17 20:00 99.0 64 18 125/53 100 Mechanical Ventilator 35 99.0 11/28/17 20:00 63 11/28/17 20:00 35 11/28/17 19:15 64 18 35 11/28/17 19:00 67 18 113/58 100 Mechanical Ventilator 35 11/28/17 18:00 66 18 128/58 100 Mechanical Ventilator 35 11/28/17 17:05 77 21 35 11/28/17 17:00 98.3 67 18 126/66 100 Mechanical Ventilator 35 98.3 11/28/17 16:00 67 18 137/46 99 Mechanical Ventilator 35 11/28/17 16:00 67 11/28/17 16:00 35 11/28/17 15:00 69 18 141/54 99 Mechanical Ventilator 35 11/28/17 14:55 72 18 35 11/28/17 14:00 67 18 129/50 100 Mechanical Ventilator 35 11/28/17 13:18 99.1 11/28/17 13:09 71 18 35 11/28/17 13:00 99.0 69 18 118/45 100 Mechanical Ventilator 35 99.0 11/28/17 12:19 99.1 Intake and Output 11/28/17 11/29/17 19:00 07:00 Intake Total 566 ml 474.0 ml Output Total 565 ml 740 ml Balance 1 ml -266.0 ml IV Total 110 ml 360.0 ml Tube Feeding 456 ml 114 ml Output Urine Total 565 ml 740 ml Stool Total 0 ml Laboratory Tests 11/28/17 18:10: Random Vancomycin Level 6.4 11/29/17 03:50: White Blood Count 9.4, Red Blood Count 4.20, Hemoglobin 12.3, Hematocrit 39.5, Mean Corpuscular Volume 94, Mean Corpuscular Hemoglobin 29.3, Mean Corpuscular Hemoglobin Concent 31.1L, Red Cell Distribution Width 16.5H, Platelet Count 205 , Mean Platelet Volume 7.1, Neutrophils (%) (Auto) 43.8L, Lymphocytes (%) (Auto ) 42.1, Monocytes (%) (Auto) 11.0H, Eosinophils (%) (Auto) 2.2, Basophils (%) ( Auto) 0.9, Sodium Level 141, Potassium Level 3.1L, Chloride Level 102, Carbon Dioxide Level 31, Anion Gap 8, Blood Urea Nitrogen 15, Creatinine 0.8, Estimat Glomerular Filtration Rate > 60, Glucose Level 145H, Calcium Level 9.0, Phosphorus Level 3.3, Magnesium Level 1.8, Total Bilirubin 0.6, Aspartate Amino Transf (AST/SGOT) 26, Alanine Aminotransferase (ALT/SGPT) 39, Alkaline Phosphatase 55, Total Protein 7.5, Albumin 2.5L, Globulin 5.0, Albumin/Globulin Ratio 0.5L 11/29/17 08:45: Arterial Blood pH 7.387, Arterial Blood Partial Pressure CO2 65.5*H, Arterial Blood Partial Pressure O2 113.9H, Arterial Blood HCO3 38.5H, Arterial Blood Oxygen Saturation 97.6, Arterial Blood Base Excess 11.0, Doroteo Test Positive Height (Feet): 5 Height (Inches): 4.00 Weight (Pounds): 416 Maryjane Simon M.D. Nov 29, 2017 12:18
--- NOTE | 2017-11-29 13:46 | Pulmonolgy Critical Care Note ---
Critical Care - Asmt/Plan Problems: (1) Acute toxic metabolic encephalopathy (2) Acute respiratory failure with hypoxia and hypercapnia (3) Morbid obesity (4) COPD exacerbation Respiratory: monitor respiratory rate, adjust FIO2, CXR Cardiac: stop pressors, continue to monitor HR/BP Renal: F/U I&O Infectious Disease: check cultures, continue antibiotics, other - sputum has staph aureus, Blood had Coag negativ staph Gastrointestinal: continue feedings/current rate Endocrine: monitor blood sugar Hematologic: monitor H/H Prophylaxis: Protonix, Heparin Disposition: keep in ICU Time Spent (Minutes): 40 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 Critical Care - Objective Last 24 Hour Vital Signs Date Time Temp Pulse Resp B/P (MAP) Pulse Ox O2 Delivery O2 Flow Rate FiO2 11/29/17 13:16 88 25 35 11/29/17 11:25 81 35 35 11/29/17 11:00 80 29 141/55 98 Mechanical Ventilator 35 11/29/17 10:00 75 31 125/53 98 Mechanical Ventilator 35 11/29/17 09:00 77 31 135/50 100 Mechanical Ventilator 35 11/29/17 08:48 78 32 35 11/29/17 08:47 100 11/29/17 08:00 99.1 80 28 139/52 97 Mechanical Ventilator 35 99.1 11/29/17 07:29 68 16 35 11/29/17 07:00 60 18 127/47 98 Mechanical Ventilator 35 11/29/17 06:00 63 18 108/60 98 Mechanical Ventilator 35 11/29/17 05:23 68 18 35 11/29/17 05:00 98.2 63 18 127/51 98 Mechanical Ventilator 35 98.2 11/29/17 04:00 59 18 138/53 98 Mechanical Ventilator 35 11/29/17 04:00 74 11/29/17 04:00 35 11/29/17 03:00 55 18 133/55 98 Mechanical Ventilator 35 11/29/17 02:49 60 18 35 11/29/17 02:00 55 18 117/56 97 Mechanical Ventilator 35 11/29/17 01:44 40 11/29/17 01:41 55 18 35 11/29/17 01:00 57 18 115/48 97 Mechanical Ventilator 35 11/29/17 00:00 35 11/29/17 00:00 98.4 75 18 140/63 98 Mechanical Ventilator 35 98.4 4/22/18 00:00 69 11/28/17 23:00 75 18 140/63 98 Mechanical Ventilator 35 11/28/17 22:55 71 20 35 11/28/17 22:00 64 18 119/67 99 Mechanical Ventilator 35 11/28/17 21:00 64 18 143/55 99 Mechanical Ventilator 35 11/28/17 20:58 66 18 35 11/28/17 20:00 99.0 64 18 125/53 100 Mechanical Ventilator 35 99.0 11/28/17 20:00 63 11/28/17 20:00 35 11/28/17 19:15 64 18 35 11/28/17 19:00 67 18 113/58 100 Mechanical Ventilator 35 11/28/17 18:00 66 18 128/58 100 Mechanical Ventilator 35 11/28/17 17:05 77 21 35 11/28/17 17:00 98.3 67 18 126/66 100 Mechanical Ventilator 35 98.3 11/28/17 16:00 67 18 137/46 99 Mechanical Ventilator 35 11/28/17 16:00 67 11/28/17 16:00 35 11/28/17 15:00 69 18 141/54 99 Mechanical Ventilator 35 11/28/17 14:55 72 18 35 11/28/17 14:00 67 18 129/50 100 Mechanical Ventilator 35 Status: awake Condition: critical HEENT: atraumatic, normocephalic Lungs: clear Heart: HR/BP stable, HR/BP unstable Abdomen: soft, active bowel sounds Extremities: edema Decubiti: location Micro: Microbiology Date/Time Source Procedure Growth Status 11/27/17 12:10 Sputum Induced Gram Stain - Final Resulted 11/27/17 12:10 Sputum Culture - Preliminary Staphylococcus Aureus Resulted 11/27/17 12:30 Indwelling Cath Urine Culture - Preliminary NO GROWTH AFTER 24 HOURS Resulted Accucheck: 137 Critical Care - Subjective ROS Limited/Unobtainable: No ICU Day: 3 Intubation Day: 3 Condition: critical EKG Rhythm: Sinus Rhythm FI02: 35 Vent Support Breath Rate: 18 Vent Support Mode: CPAP Vent Tidal Volume: 650 Sputum Amount: Moderate PEEP: 5.0 PIP: 36 Tube Feeding Amount: 0 I&O: Intake and Output 11/28/17 11/29/17 19:00 07:00 Intake Total 566 ml 474.0 ml Output Total 565 ml 740 ml Balance 1 ml -266.0 ml IV Total 110 ml 360.0 ml Tube Feeding 456 ml 114 ml Output Urine Total 565 ml 740 ml Stool Total 0 ml CXR: no new changes ET-Tube: 7.5 ET Position: 23 Labs: Laboratory Tests Test 11/28/17 18:10 11/29/17 03:50 11/29/17 08:45 Random Vancomycin Level 6.4 ug/mL White Blood Count 9.4 K/UL (4.8-10.8) Red Blood Count 4.20 M/UL (4.20-5.40) Hemoglobin 12.3 G/DL (12.0-16.0) Hematocrit 39.5 % (37.0-47.0) Mean Corpuscular Volume 94 FL (80-99) Mean Corpuscular Hemoglobin 29.3 PG (27.0-31.0) Mean Corpuscular Hemoglobin Concent 31.1 G/DL (32.0-36.0) L Red Cell Distribution Width 16.5 % (11.6-14.8) H Platelet Count 205 K/UL (150-450) Mean Platelet Volume 7.1 FL (6.5-10.1) Neutrophils (%) (Auto) 43.8 % (45.0-75.0) L Lymphocytes (%) (Auto) 42.1 % (20.0-45.0) Monocytes (%) (Auto) 11.0 % (1.0-10.0) H Eosinophils (%) (Auto) 2.2 % (0.0-3.0) Basophils (%) (Auto) 0.9 % (0.0-2.0) Sodium Level 141 MMOL/L (136-145) Potassium Level 3.1 MMOL/L (3.5-5.1) L Chloride Level 102 MMOL/L (98-107) Carbon Dioxide Level 31 MMOL/L (21-32) Anion Gap 8 mmol/L (5-15) Blood Urea Nitrogen 15 mg/dL (7-18) Creatinine 0.8 MG/DL (0.55-1.30) Estimat Glomerular Filtration Rate > 60 mL/min (>60) Glucose Level 145 MG/DL (74-106) H Calcium Level 9.0 MG/DL (8.5-10.1) Phosphorus Level 3.3 MG/DL (2.5-4.9) Magnesium Level 1.8 MG/DL (1.8-2.4) Total Bilirubin 0.6 MG/DL (0.2-1.0) Aspartate Amino Transf (AST/SGOT) 26 U/L (15-37) Alanine Aminotransferase (ALT/SGPT) 39 U/L (12-78) Alkaline Phosphatase 55 U/L (46-116) Total Protein 7.5 G/DL (6.4-8.2) Albumin 2.5 G/DL (3.4-5.0) L Globulin 5.0 g/dL Albumin/Globulin Ratio 0.5 (1.0-2.7) L Arterial Blood pH 7.387 (7.350-7.450) Arterial Blood Partial Pressure CO2 65.5 mmHg (35.0-45.0) *H Arterial Blood Partial Pressure O2 113.9 mmHg (75.0-100.0) H Arterial Blood HCO3 38.5 mmol/L (22.0-26.0) H Arterial Blood Oxygen Saturation 97.6 % (92.0-98.0) Arterial Blood Base Excess 11.0 Doroteo Test Positive Yariel Malone MD Nov 29, 2017 13:46
[2017-11-30] VITALS (20 sets, daily range): BP systolic 113–161; BP diastolic 39–90
[2017-11-30] MEDS: Piperacillin/Tazobactam 4.5 GM in D5W 110 ML IVPB SCH ×3 (04:01→20:15)
[2017-11-30] MEDS: NovoLOG Insulin Flexpen SUBQ SCH ×4 (05:31→21:00)
[2017-11-30 06:12] LABS: BASOPHILS % (AUTO) 0.9 % (0.0-2.0); EOSINOPHILS % (AUTO) 5.7 % (0.0-3.0); HEMATOCRIT 42.6 % (37.0-47.0); HEMOGLOBIN 13.2 G/DL (12.0-16.0); LYMPHOCYTES % (AUTO) 37.8 % (20.0-45.0); MEAN CORPUSCULAR VOLUME 97 FL (80-99); MONOCYTES % (AUTO) 14.1 % (1.0-10.0); NEUTROPHILS % (AUTO) 41.5 % (45.0-75.0); PLATELET COUNT 204 K/UL (150-450); RED BLOOD COUNT 4.41 M/UL (4.20-5.40); RED CELL DISTRIBUTION WIDTH 16.3 % (11.6-14.8); WHITE BLOOD COUNT 8.9 K/UL (4.8-10.8)
[2017-11-30 06:29] LABS: ALANINE AMINOTRANSFERASE 39 U/L (12-78); ALBUMIN 2.4 G/DL (3.4-5.0); ALBUMIN/GLOBULIN RATIO 0.5 (1.0-2.7); ALKALINE PHOSPHATASE 52 U/L (46-116); ANION GAP 3 mmol/L (5-15); ASPARTATE AMINO TRANSFERASE 30 U/L (15-37); BILIRUBIN,TOTAL 0.4 MG/DL (0.2-1.0); BLOOD UREA NITROGEN 10 mg/dL (7-18); CALCIUM 8.9 MG/DL (8.5-10.1); CARBON DIOXIDE 37 MMOL/L (21-32); CHLORIDE 103 MMOL/L (98-107); CREATININE 0.8 MG/DL (0.55-1.30); PHOSPHORUS 5.8 MG/DL (2.5-4.9); POTASSIUM 3.5 MMOL/L (3.5-5.1); SODIUM 143 MMOL/L (136-145)
[2017-11-30] MEDS: Vancomycin 1gm in D5W 275ml IVPB SCH (09:00)
[2017-11-30] MEDS ORDERED: guaiFENesin DM 100mg/5ml ORAL PRN (09:45)
--- NOTE | 2017-11-30 09:51 | Cardiology Report ---
APPROVED REPORT EXAM: Two-dimensional and M-mode echocardiogram with Doppler and color Doppler. M-Mode DIMENSIONS IVSd1.4 (0.7-1.1cm)Left Atrium (MM)3.0 (1.6-4.0cm) LVDd4.4 (3.5-5.6cm)Aortic Root3.4 (2.0-3.7cm) PWd1.6 (0.7-1.1cm)Aortic Cusp Exc.1.8 (1.5-2.0cm) LVDs3.1 (2.5-4.0cm) PWs1.9 cm Technically difficult study due to poor acoustical windows and pt's body habitus. Normal left ventricular chamber size, systolic function and wall motion to extent visualized. Left ventricular ejection fraction grossly estimated to be 60 %. Moderate left ventricular hypertrophy by 2-D. No evidence of pericardial effusion. All cardiac chamber sizes appear to be within normal limits. Focal aortic valve sclerosis with adequate cusp excursion. Thickened mitral valve leaflets with normal excursion. Mitral annulus and aortic root calcification. Pulmonic valve not well visualized. Normal tricuspid valve structure. IVC dilated at 2.9 cm without physiologic collapse suggestive of increased RA pressure. A color flow and spectral Doppler study was performed and revealed: Trace mitral regurgitation. Mild to moderate tricuspid regurgitation. Diastolic function undetermined due to off-axis apical views. Tricuspid systolic velocities suggests peak right ventricular systolic pressure of 50 mmHg, consistent with moderate pulmonary hypertension. No pulmonic regurgitation present.
[2017-11-30] MEDS ORDERED: Guaifenesin/DM 10ml syrup ORAL PRN (10:00)
[2017-11-30] MEDS: Aspirin Baby 81mg GT SCH (10:04)
[2017-11-30] MEDS: Pantoprazole Inj IVP SCH ×2 (10:04→21:14)
[2017-11-30] MEDS: Heparin 5000 units/ml inj SUBQ SCH ×2 (10:06→21:17)
[2017-11-30] MEDS ORDERED: NS 275ml ONE ×2 (11:00→11:25)
[2017-11-30] MEDS ORDERED: Tubing IV Secondary IV ONE ×2 (11:00→11:25)
[2017-11-30] MEDS ORDERED: D5 1/2NS 1000ml IV ONE ×2 (11:00→11:25)
--- NOTE | 2017-11-30 11:07 | Diagnostic Imaging Report ---
Indication: Shortness of breath Technique: One view of the chest Comparison: none Findings: The heart is enlarged. Lungs and pleural spaces are clear. Interim removal of endotracheal tube. No other significant change Impression: Interim extubation No acute process Cardiomegaly
--- NOTE | 2017-11-30 11:16 | Pulmonolgy Critical Care Note ---
Critical Care - Asmt/Plan Problems: (1) Acute toxic metabolic encephalopathy (2) Acute respiratory failure with hypoxia and hypercapnia (3) Morbid obesity (4) COPD exacerbation Respiratory: monitor respiratory rate, adjust FIO2 Cardiac: continue to monitor HR/BP Renal: F/U I&O, check electrolytes Infectious Disease: check cultures, continue antibiotics, other - MRSA in sputum, getting vancomycin Gastrointestinal: continue feedings/current rate Endocrine: monitor blood sugar Hematologic: monitor H/H Neurologic: PRN Ativan, PRN Morphine Prophylaxis: Protonix, Heparin Disposition: transfer to - [facility] Notes Reviewed: renal Critical Care - Objective Last 24 Hour Vital Signs Date Time Temp Pulse Resp B/P (MAP) Pulse Ox O2 Delivery O2 Flow Rate FiO2 11/30/17 10:04 67 11/30/17 09:00 67 30 127/53 96 Nasal Cannula 2.0 11/30/17 08:00 68 11/30/17 08:00 71 17 161/53 96 Nasal Cannula 2.0 11/30/17 07:30 78 18 Nasal Cannula 3.0 32 11/30/17 07:30 Nasal Cannula 3.0 32 11/30/17 07:30 98 Nasal Cannula 3.0 32 11/30/17 07:00 98.7 65 26 139/48 100 Nasal Cannula 2.0 98.7 11/30/17 06:00 61 19 143/57 100 Nasal Cannula 3.0 11/30/17 05:00 77 19 137/43 96 Venturi Mask 35 11/30/17 04:00 54 11/30/17 04:00 98.6 66 19 141/56 92 Venturi Mask 35 98.6 11/30/17 03:00 74 19 131/40 96 Venturi Mask 35 11/30/17 02:00 80 26 131/52 90 Venturi Mask 35 11/30/17 01:00 81 28 131/52 98 Venturi Mask 35 11/30/17 00:00 75 11/30/17 00:00 98.0 86 28 123/49 86 Venturi Mask 35 98.0 11/29/17 23:00 88 28 119/46 87 Venturi Mask 35 11/29/17 22:00 89 18 113/49 90 Venturi Mask 35 11/29/17 21:00 72 27 130/46 91 Venturi Mask 35 11/29/17 20:00 98.4 70 24 136/54 91 Venturi Mask 35 98.4 11/29/17 20:00 78 11/29/17 19:17 95 Venturi Mask 6.0 35 11/29/17 19:17 Venturi Mask 6.0 35 11/29/17 19:17 75 19 Venturi Mask 6.0 35 11/29/17 19:00 70 27 136/51 94 Venturi Mask 35 11/29/17 18:00 73 30 156/43 91 Venturi Mask 35 11/29/17 17:00 74 26 156/43 94 Venturi Mask 35 11/29/17 16:00 59 11/29/17 16:00 98.9 75 29 128/47 95 Venturi Mask 35 98.9 11/29/17 15:00 78 27 125/52 98 Venturi Mask 35 11/29/17 14:35 Venturi Mask 6.0 35 11/29/17 14:35 95 Venturi Mask 6.0 35 11/29/17 14:35 Venturi Mask 6.0 35 11/29/17 14:00 84 29 110/61 98 Mechanical Ventilator 35 11/29/17 13:16 88 25 35 11/29/17 13:00 82 25 132/42 98 Mechanical Ventilator 35 11/29/17 12:00 35 11/29/17 12:00 98.9 80 30 154/54 98 Mechanical Ventilator 35 98.9 11/29/17 12:00 78 11/29/17 11:25 81 35 35 Status: awake Condition: critical HEENT: atraumatic Lungs: chest wall tender Heart: HR/BP stable Abdomen: soft, active bowel sounds Extremities: no C/C/E Decubiti: location Micro: Microbiology Date/Time Source Procedure Growth Status 11/28/17 18:10 Blood Blood Culture - Preliminary NO GROWTH AFTER 24 HOURS Resulted 11/28/17 18:00 Blood Blood Culture - Preliminary NO GROWTH AFTER 24 HOURS Resulted 11/27/17 12:10 Sputum Induced Gram Stain - Final Complete 11/27/17 12:10 Sputum Culture - Final Staphylococcus Aureus - Mrsa Complete 11/27/17 12:30 Indwelling Cath Urine Culture - Final NO GROWTH AFTER 48 HOURS Complete Accucheck: 111 Critical Care - Subjective ROS Limited/Unobtainable: No ICU Day: 4 Intubation Day: extubated last night Interval Events: tolerating extubation very well. FI02: 32 Vent Support Breath Rate: 12 Vent Support Mode: CPAP Vent Tidal Volume: 650 Sputum Amount: None PEEP: 5.0 PIP: 36 Tube Feeding Amount: 0 I&O: Intake and Output 11/29/17 11/30/17 19:00 07:00 Intake Total 1091.124 ml 565.0 ml Output Total 575 ml 1908 ml Balance 516.124 ml -1343.0 ml Intake Oral 125 ml IV Total 1091.124 ml 440.0 ml Tube Feeding 0 ml 0 ml Output Urine Total 575 ml 1908 ml Stool Total 0 ml 0 ml CXR: cardiomegaly, mild congestion ET-Tube: 7.5 ET Position: 23 Labs: Laboratory Tests Test 11/30/17 04:50 11/30/17 07:30 11/30/17 08:30 White Blood Count 8.9 K/UL (4.8-10.8) Red Blood Count 4.41 M/UL (4.20-5.40) Hemoglobin 13.2 G/DL (12.0-16.0) Hematocrit 42.6 % (37.0-47.0) Mean Corpuscular Volume 97 FL (80-99) Mean Corpuscular Hemoglobin 29.9 PG (27.0-31.0) Mean Corpuscular Hemoglobin Concent 31.0 G/DL (32.0-36.0) L Red Cell Distribution Width 16.3 % (11.6-14.8) H Platelet Count 204 K/UL (150-450) Mean Platelet Volume 7.5 FL (6.5-10.1) Neutrophils (%) (Auto) 41.5 % (45.0-75.0) L Lymphocytes (%) (Auto) 37.8 % (20.0-45.0) Monocytes (%) (Auto) 14.1 % (1.0-10.0) H Eosinophils (%) (Auto) 5.7 % (0.0-3.0) H Basophils (%) (Auto) 0.9 % (0.0-2.0) Sodium Level 143 MMOL/L (136-145) Potassium Level 3.5 MMOL/L (3.5-5.1) Chloride Level 103 MMOL/L (98-107) Carbon Dioxide Level 37 MMOL/L (21-32) H Anion Gap 3 mmol/L (5-15) L Blood Urea Nitrogen 10 mg/dL (7-18) Creatinine 0.8 MG/DL (0.55-1.30) Estimat Glomerular Filtration Rate > 60 mL/min (>60) Glucose Level 131 MG/DL (74-106) H Calcium Level 8.9 MG/DL (8.5-10.1) Phosphorus Level 5.8 MG/DL (2.5-4.9) H Magnesium Level 2.0 MG/DL (1.8-2.4) Total Bilirubin 0.4 MG/DL (0.2-1.0) Aspartate Amino Transf (AST/SGOT) 30 U/L (15-37) Alanine Aminotransferase (ALT/SGPT) 39 U/L (12-78) Alkaline Phosphatase 52 U/L (46-116) Total Protein 7.2 G/DL (6.4-8.2) Albumin 2.4 G/DL (3.4-5.0) L Globulin 4.8 g/dL Albumin/Globulin Ratio 0.5 (1.0-2.7) L Arterial Blood pH 7.411 (7.350-7.450) Arterial Blood Partial Pressure CO2 56.9 mmHg (35.0-45.0) *H Arterial Blood Partial Pressure O2 66.9 mmHg (75.0-100.0) L Arterial Blood HCO3 35.3 mmol/L (22.0-26.0) H Arterial Blood Oxygen Saturation 93.3 % (92.0-98.0) Arterial Blood Base Excess 8.8 Doroteo Test Positive Vancomycin Level Trough 13.4 ug/mL (5.0-12.0) H Yariel Malone MD Nov 30, 2017 11:16
--- NOTE | 2017-11-30 13:58 | General Surgery Progress Note ---
General Surgery-Progress Note Subjective Symptoms: improved Additional Comments extubated. doing well. comfortable. no issues. Objective Last 24 Hour Vital Signs Date Time Temp Pulse Resp B/P (MAP) Pulse Ox O2 Delivery O2 Flow Rate FiO2 11/30/17 13:00 70 18 156/74 98 Nasal Cannula 3.0 11/30/17 12:00 66 24 122/39 95 Nasal Cannula 2.0 11/30/17 11:00 71 20 122/41 97 Nasal Cannula 2.0 11/30/17 10:04 67 11/30/17 10:00 70 25 125/46 97 Nasal Cannula 2.0 11/30/17 09:00 67 30 127/53 96 Nasal Cannula 2.0 11/30/17 08:00 68 11/30/17 08:00 71 17 161/53 96 Nasal Cannula 2.0 11/30/17 07:30 78 18 Nasal Cannula 3.0 32 11/30/17 07:30 Nasal Cannula 3.0 32 11/30/17 07:30 98 Nasal Cannula 3.0 32 11/30/17 07:00 98.7 65 26 139/48 100 Nasal Cannula 2.0 98.7 11/30/17 06:00 61 19 143/57 100 Nasal Cannula 3.0 11/30/17 05:00 77 19 137/43 96 Venturi Mask 35 11/30/17 04:00 54 11/30/17 04:00 98.6 66 19 141/56 92 Venturi Mask 35 98.6 11/30/17 03:00 74 19 131/40 96 Venturi Mask 35 11/30/17 02:00 80 26 131/52 90 Venturi Mask 35 11/30/17 01:00 81 28 131/52 98 Venturi Mask 35 11/30/17 00:00 75 11/30/17 00:00 98.0 86 28 123/49 86 Venturi Mask 35 98.0 11/29/17 23:00 88 28 119/46 87 Venturi Mask 35 11/29/17 22:00 89 18 113/49 90 Venturi Mask 35 11/29/17 21:00 72 27 130/46 91 Venturi Mask 35 11/29/17 20:00 98.4 70 24 136/54 91 Venturi Mask 35 98.4 11/29/17 20:00 78 11/29/17 19:17 95 Venturi Mask 6.0 35 11/29/17 19:17 Venturi Mask 6.0 35 11/29/17 19:17 75 19 Venturi Mask 6.0 35 11/29/17 19:00 70 27 136/51 94 Venturi Mask 35 11/29/17 18:00 73 30 156/43 91 Venturi Mask 35 11/29/17 17:00 74 26 156/43 94 Venturi Mask 35 11/29/17 16:00 59 11/29/17 16:00 98.9 75 29 128/47 95 Venturi Mask 35 98.9 11/29/17 15:00 78 27 125/52 98 Venturi Mask 35 11/29/17 14:35 Venturi Mask 6.0 35 11/29/17 14:35 95 Venturi Mask 6.0 35 11/29/17 14:35 Venturi Mask 6.0 35 11/29/17 14:00 84 29 110/61 98 Mechanical Ventilator 35 I&O Intake and Output 11/29/17 11/30/17 19:00 07:00 Intake Total 1091.124 ml 565.0 ml Output Total 575 ml 1908 ml Balance 516.124 ml -1343.0 ml Intake Oral 125 ml IV Total 1091.124 ml 440.0 ml Tube Feeding 0 ml 0 ml Output Urine Total 575 ml 1908 ml Stool Total 0 ml 0 ml Drains: none Cardiovascular: RSR Respiratory: clear Abdomen: soft, flat, non-tender, present bowel sounds Extremities: no tenderness, no cyanosis Laboratory Tests Test 11/30/17 04:50 11/30/17 07:30 11/30/17 08:30 White Blood Count 8.9 K/UL (4.8-10.8) Red Blood Count 4.41 M/UL (4.20-5.40) Hemoglobin 13.2 G/DL (12.0-16.0) Hematocrit 42.6 % (37.0-47.0) Mean Corpuscular Volume 97 FL (80-99) Mean Corpuscular Hemoglobin 29.9 PG (27.0-31.0) Mean Corpuscular Hemoglobin Concent 31.0 G/DL (32.0-36.0) L Red Cell Distribution Width 16.3 % (11.6-14.8) H Platelet Count 204 K/UL (150-450) Mean Platelet Volume 7.5 FL (6.5-10.1) Neutrophils (%) (Auto) 41.5 % (45.0-75.0) L Lymphocytes (%) (Auto) 37.8 % (20.0-45.0) Monocytes (%) (Auto) 14.1 % (1.0-10.0) H Eosinophils (%) (Auto) 5.7 % (0.0-3.0) H Basophils (%) (Auto) 0.9 % (0.0-2.0) Sodium Level 143 MMOL/L (136-145) Potassium Level 3.5 MMOL/L (3.5-5.1) Chloride Level 103 MMOL/L (98-107) Carbon Dioxide Level 37 MMOL/L (21-32) H Anion Gap 3 mmol/L (5-15) L Blood Urea Nitrogen 10 mg/dL (7-18) Creatinine 0.8 MG/DL (0.55-1.30) Estimat Glomerular Filtration Rate > 60 mL/min (>60) Glucose Level 131 MG/DL (74-106) H Calcium Level 8.9 MG/DL (8.5-10.1) Phosphorus Level 5.8 MG/DL (2.5-4.9) H Magnesium Level 2.0 MG/DL (1.8-2.4) Total Bilirubin 0.4 MG/DL (0.2-1.0) Aspartate Amino Transf (AST/SGOT) 30 U/L (15-37) Alanine Aminotransferase (ALT/SGPT) 39 U/L (12-78) Alkaline Phosphatase 52 U/L (46-116) Total Protein 7.2 G/DL (6.4-8.2) Albumin 2.4 G/DL (3.4-5.0) L Globulin 4.8 g/dL Albumin/Globulin Ratio 0.5 (1.0-2.7) L Arterial Blood pH 7.411 (7.350-7.450) Arterial Blood Partial Pressure CO2 56.9 mmHg (35.0-45.0) *H Arterial Blood Partial Pressure O2 66.9 mmHg (75.0-100.0) L Arterial Blood HCO3 35.3 mmol/L (22.0-26.0) H Arterial Blood Oxygen Saturation 93.3 % (92.0-98.0) Arterial Blood Base Excess 8.8 Doroteo Test Positive Vancomycin Level Trough 13.4 ug/mL (5.0-12.0) H Plan Problems: (1) Abdominal pain Assessment & Plan: initially complaining of abdominal pain which has since resolved. intubated in ICU and recovering from ALOC and respiratory distress. extubated now and doing well. diet as tolerated. okay from surgical standpoint thank you for this consultation. will follow with you Stevan Romero Nov 30, 2017 13:58
--- NOTE | 2017-11-30 14:03 | General Progress Note ---
Assessment/Plan Problem List: (1) Acute toxic metabolic encephalopathy (2) Acute respiratory failure with hypoxia and hypercapnia ICD Codes: J96.01 - Acute respiratory failure with hypoxia; J96.02 - Acute respiratory failure with hypercapnia SNOMED: 18735880, 72583796, 775753576 (3) Severe sepsis ICD Codes: A41.9 - Sepsis, unspecified organism; R65.20 - Severe sepsis without septic shock SNOMED: 38293679 (4) Aspiration pnemonia vs HCAP Assessment & Plan: 2/2 MRSA (5) Likely obesity hypoventilation syndrome (6) Chronic diastolic (congestive) heart failure ICD Codes: I50.32 - Chronic diastolic (congestive) heart failure SNOMED: 36215221, 309898475 (7) Hyperkalemia ICD Codes: E87.5 - Hyperkalemia SNOMED: 52178880 (8) KASHIF (acute kidney injury) ICD Codes: N17.9 - Acute kidney failure, unspecified SNOMED: 04715724 (9) GERD (gastroesophageal reflux disease) ICD Codes: K21.9 - Gastro-esophageal reflux disease without esophagitis SNOMED: 677189519 (10) DM2 (diabetes mellitus, type 2) ICD Codes: E11.9 - Type 2 diabetes mellitus without complications SNOMED: 72461097 (11) Morbid obesity ICD Codes: E66.01 - Morbid (severe) obesity due to excess calories SNOMED: 846943808, 72953161145517 (12) Fatty liver ICD Codes: K76.0 - Fatty (change of) liver, not elsewhere classified SNOMED: 791948795 (13) Abdominal pain ICD Codes: R10.9 - Unspecified abdominal pain SNOMED: 72004342 Qualifiers: Qualified Codes: R10.84 - Generalized abdominal pain (14) Hypokalemia ICD Codes: E87.6 - Hypokalemia SNOMED: 47100982 Status: stable Assessment/Plan Downgrade to [facility] today Pulm/critical care consulted s/p extubation on 11/29/17 BiPAP qHS and PRN Monitor hemodynamics. No indication for pressors at this time ID consulted Empiric vanco and zosyn for aspiration pneumonia vs HCAP (CXR w/ RLL infiltrate) F/u blood cultures---1 set w/ coag neg staph. 2nd set neg. Repeat blood cx NGTD F/u resp culture--shows MRSA General surg eval given abdominal pain LESTER Cont SNF meds as appropriate Start tube feeds via NGT Monitor CBC, BMP Pain control, bowel regimen Supportive care PPI PT/OT Possible d/c in 1-2 days pending pulm clearance and ID rec's on abx DVT Prophylaxis: SCD, HSQ Code Status: Full Hospital Classification Declaration: Based on this initial evaluation, and depending on the patient's clinical course, I anticipate that this patient will require hospitalization for 1-2 days for severe sepsis, respiratory failure and close respiratory/hemodynamic monitoring. I spent 40min on this case w/ >50% on care/coordination and counseling. Discussed with patient, RN, SW/CM, pulm, ID regarding mgmt and dispo. D/w ID re abx. D/w pulm re downgrading to PCU, BiPAP qHS and PRN Time of note may not reflect time of encounter. Subjective Date patient seen: Nov 30, 2017 Time patient seen: 14:03 ROS Limited/Unobtainable: No Constitutional: Reports: no symptoms HEENT: Reports: no symptoms Cardiovascular: Reports: no symptoms Respiratory: Reports: cough, shortness of breath Gastrointestinal/Abdominal: Reports: no symptoms Genitourinary: Reports: no symptoms Neurologic/Psychiatric: Reports: no symptoms Endocrine: Reports: no symptoms Hematologic/Lymphatic: Reports: no symptoms Allergies: Coded Allergies: ASPARTAME (Verified Allergy, Unknown, 11/30/17) Headache All Systems: reviewed and negative except above Subjective No acute o/n events Weekend events reviewed. Pt extubated yesterday and now doing well on NC Pt awake, alert. C/o cough w/ some sputum production. SOB improving. Denies f/c , n/v, d/c, chest pain Objective Last 24 Hour Vital Signs Date Time Temp Pulse Resp B/P (MAP) Pulse Ox O2 Delivery O2 Flow Rate FiO2 11/30/17 13:00 70 18 156/74 98 Nasal Cannula 3.0 11/30/17 12:00 66 24 122/39 95 Nasal Cannula 2.0 11/30/17 11:00 71 20 122/41 97 Nasal Cannula 2.0 11/30/17 10:04 67 11/30/17 10:00 70 25 125/46 97 Nasal Cannula 2.0 11/30/17 09:00 67 30 127/53 96 Nasal Cannula 2.0 11/30/17 08:00 68 11/30/17 08:00 71 17 161/53 96 Nasal Cannula 2.0 11/30/17 07:30 78 18 Nasal Cannula 3.0 32 11/30/17 07:30 Nasal Cannula 3.0 32 11/30/17 07:30 98 Nasal Cannula 3.0 32 11/30/17 07:00 98.7 65 26 139/48 100 Nasal Cannula 2.0 98.7 11/30/17 06:00 61 19 143/57 100 Nasal Cannula 3.0 11/30/17 05:00 77 19 137/43 96 Venturi Mask 35 11/30/17 04:00 54 11/30/17 04:00 98.6 66 19 141/56 92 Venturi Mask 35 98.6 11/30/17 03:00 74 19 131/40 96 Venturi Mask 35 11/30/17 02:00 80 26 131/52 90 Venturi Mask 35 11/30/17 01:00 81 28 131/52 98 Venturi Mask 35 11/30/17 00:00 75 11/30/17 00:00 98.0 86 28 123/49 86 Venturi Mask 35 98.0 11/29/17 23:00 88 28 119/46 87 Venturi Mask 35 11/29/17 22:00 89 18 113/49 90 Venturi Mask 35 11/29/17 21:00 72 27 130/46 91 Venturi Mask 35 11/29/17 20:00 98.4 70 24 136/54 91 Venturi Mask 35 98.4 11/29/17 20:00 78 11/29/17 19:17 95 Venturi Mask 6.0 35 11/29/17 19:17 Venturi Mask 6.0 35 11/29/17 19:17 75 19 Venturi Mask 6.0 35 11/29/17 19:00 70 27 136/51 94 Venturi Mask 35 11/29/17 18:00 73 30 156/43 91 Venturi Mask 35 11/29/17 17:00 74 26 156/43 94 Venturi Mask 35 11/29/17 16:00 59 11/29/17 16:00 98.9 75 29 128/47 95 Venturi Mask 35 98.9 11/29/17 15:00 78 27 125/52 98 Venturi Mask 35 11/29/17 14:35 Venturi Mask 6.0 35 11/29/17 14:35 95 Venturi Mask 6.0 35 11/29/17 14:35 Venturi Mask 6.0 35 Intake and Output 11/29/17 11/30/17 19:00 07:00 Intake Total 1091.124 ml 565.0 ml Output Total 575 ml 1908 ml Balance 516.124 ml -1343.0 ml Intake Oral 125 ml IV Total 1091.124 ml 440.0 ml Tube Feeding 0 ml 0 ml Output Urine Total 575 ml 1908 ml Stool Total 0 ml 0 ml Laboratory Tests 11/30/17 04:50: White Blood Count 8.9, Red Blood Count 4.41, Hemoglobin 13.2, Hematocrit 42.6, Mean Corpuscular Volume 97, Mean Corpuscular Hemoglobin 29.9, Mean Corpuscular Hemoglobin Concent 31.0L, Red Cell Distribution Width 16.3H, Platelet Count 204 , Mean Platelet Volume 7.5, Neutrophils (%) (Auto) 41.5L, Lymphocytes (%) (Auto ) 37.8, Monocytes (%) (Auto) 14.1H, Eosinophils (%) (Auto) 5.7H, Basophils (%) ( Auto) 0.9, Sodium Level 143, Potassium Level 3.5, Chloride Level 103, Carbon Dioxide Level 37H, Anion Gap 3L, Blood Urea Nitrogen 10, Creatinine 0.8, Estimat Glomerular Filtration Rate > 60, Glucose Level 131H, Calcium Level 8.9, Phosphorus Level 5.8H, Magnesium Level 2.0, Total Bilirubin 0.4, Aspartate Amino Transf (AST/SGOT) 30, Alanine Aminotransferase (ALT/SGPT) 39, Alkaline Phosphatase 52, Total Protein 7.2, Albumin 2.4L, Globulin 4.8, Albumin/Globulin Ratio 0.5L 11/30/17 07:30: Arterial Blood pH 7.411, Arterial Blood Partial Pressure CO2 56.9*H, Arterial Blood Partial Pressure O2 66.9L, Arterial Blood HCO3 35.3H, Arterial Blood Oxygen Saturation 93.3, Arterial Blood Base Excess 8.8, Doroteo Test Positive 11/30/17 08:30: Vancomycin Level Trough 13.4H Height (Feet): 5 Height (Inches): 4.00 Weight (Pounds): 415 Objective General: alert, cooperative, no distress, appears stated age, obese Head: normocephalic, without obvious abnormality, atraumatic Eyes: conjunctivae/corneas clear. PERRL, EOM's intact Throat: lips, mucosa, and tongue normal. MMM Neck: supple, symmetrical, trachea midline, and no JVD Lungs: +rhonchi R>L Heart: regular rate and rhythm, S1, S2 normal, no murmur, click, rub or gallop Abdomen: soft, non-tender, non-distended, bowel sounds normal; obese abd Extremities: extremities normal, atraumatic, no cyanosis, 1+BLE edema Pulses: 2+ and symmetric Skin: skin color, texture, turgor normal; no rashes or lesions Neurologic: grossly normal, no focal deficits Cassie Bolivar M.D. Nov 30, 2017 14:03
[2017-11-30] MEDS ORDERED: Nitroglycerin Subl 0.4mg tab SL PRN (19:05)
--- NOTE | 2017-11-30 19:11 | Infectious Diseases Prog Note ---
Assessment/Plan Assessment/Plan ASSESSMENT AND PLAN: 1. mrsa pna/aspiration pna, coag neg staph blood cultures likely contaminant, sepsis, urine culture negative, fevers - continue zosyn and vancomycin - day # 4 abx - clinically improved, extubated, chest x-ray improved - f/u labs - mark care 2. Respiratory failure, on vent, no pressors 3. Vargas. 4. The patient has history of hypertension. 5. Diabetes. 6. Hyperlipidemia. 7. Blood sugar and blood pressure treatment per primary. 8. History of asthma. 9. History of myocardial infarction and coronary artery disease. 10. History of heart failure/congestive heart failure. 11. History of gout. 12. History of sepsis and pneumonia. 13. History of muscle weakness. 14. Gastroesophageal reflux disease. 15. Past orders were noted. 16. Allergies are negative. 17. Family History is noncontributory. 18. Social history is negative. 19. MAR was noted. 20. Case discussed with RN. 21. Continue treatment per primary and consultants. 22. Case discussed with Dr. Matthews. 23. Case discussed with RN in the ICU. 24. Orders were noted and entered. 25. Notes and records were noted. 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 Subjective Constitutional: Reports: other - extubated; Denies: fever HEENT: Denies: congestion Respiratory: Denies: shortness of breath Cardiovascular: Denies: chest pain Gastrointestinal/Abdominal: Denies: nausea, vomiting, diarrhea Genitourinary: Reports: other - + vargas Neurologic: Denies: headache Psychiatric: Denies: depression Skin: Denies: rash Hematologic: Denies: bleeding Musculoskeletal: Denies: pain Allergies: Coded Allergies: ASPARTAME (Verified Allergy, Unknown, 11/30/17) Headache Objective Vital Signs Last 24 Hour Vital Signs Date Time Temp Pulse Resp B/P (MAP) Pulse Ox O2 Delivery O2 Flow Rate FiO2 11/30/17 18:00 77 23 137/61 94 Nasal Cannula 2.0 11/30/17 17:00 73 29 122/44 96 Nasal Cannula 2.0 11/30/17 16:00 77 11/30/17 16:00 75 29 113/42 86 Nasal Cannula 3.0 11/30/17 15:27 98.7 11/30/17 15:00 76 20 140/90 98 Nasal Cannula 3.0 11/30/17 14:28 98.7 11/30/17 14:00 71 20 131/59 94 Nasal Cannula 3.0 11/30/17 13:00 70 18 156/74 98 Nasal Cannula 3.0 11/30/17 12:00 66 24 122/39 95 Nasal Cannula 2.0 11/30/17 12:00 66 11/30/17 11:00 71 20 122/41 97 Nasal Cannula 2.0 11/30/17 10:04 67 11/30/17 10:00 70 25 125/46 97 Nasal Cannula 2.0 11/30/17 09:00 67 30 127/53 96 Nasal Cannula 2.0 11/30/17 08:00 68 11/30/17 08:00 71 17 161/53 96 Nasal Cannula 2.0 11/30/17 07:30 78 18 Nasal Cannula 3.0 32 11/30/17 07:30 Nasal Cannula 3.0 32 11/30/17 07:30 98 Nasal Cannula 3.0 32 11/30/17 07:00 98.7 65 26 139/48 100 Nasal Cannula 2.0 98.7 11/30/17 06:00 61 19 143/57 100 Nasal Cannula 3.0 11/30/17 05:00 77 19 137/43 96 Venturi Mask 35 11/30/17 04:00 54 11/30/17 04:00 98.6 66 19 141/56 92 Venturi Mask 35 98.6 11/30/17 03:00 74 19 131/40 96 Venturi Mask 35 11/30/17 02:00 80 26 131/52 90 Venturi Mask 35 11/30/17 01:00 81 28 131/52 98 Venturi Mask 35 11/30/17 00:00 75 11/30/17 00:00 98.0 86 28 123/49 86 Venturi Mask 35 98.0 11/29/17 23:00 88 28 119/46 87 Venturi Mask 35 11/29/17 22:00 89 18 113/49 90 Venturi Mask 35 11/29/17 21:00 72 27 130/46 91 Venturi Mask 35 11/29/17 20:00 98.4 70 24 136/54 91 Venturi Mask 35 98.4 11/29/17 20:00 78 11/29/17 19:17 95 Venturi Mask 6.0 35 11/29/17 19:17 Venturi Mask 6.0 35 11/29/17 19:17 75 19 Venturi Mask 6.0 35 Height (Feet): 5 Height (Inches): 4.00 Weight (Pounds): 415 General Appearance: no acute distress HEENT: normocephalic, atraumatic, anicteric, mucous membranes moist Respiratory/Chest: crackles/rales - less, rhonchi - bilaterally - less Cardiovascular: normal rate, regular rhythm, no gallop/murmur, no JVD Abdomen: normal bowel sounds, soft, non tender, no organomegaly Genitourinary: other - no vargas Extremities: no cyanosis Skin: no rash 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 Endotracheal tube tip is at the level the clavicles. Cardiomediastinal silhouette is stable. Pulmonary vascular congestion is again noted. No new infiltrates are identified. Osseous structures are stable. Impression: Nasogastric tube within the stomach. Otherwise grossly stable chest. 11/30 - chest x-ray - Comparison: none Findings: The heart is enlarged. Lungs and pleural spaces are clear. Interim removal of endotracheal tube. No other significant change Impression: Interim extubation No acute process Cardiomegaly Microbiology Date/Time Source Procedure Growth Status 11/28/17 18:10 Blood Blood Culture - Preliminary NO GROWTH AFTER 24 HOURS Resulted 11/27/17 12:10 Sputum Induced Gram Stain - Final Complete 11/27/17 12:10 Sputum Culture - Final Staphylococcus Aureus - Mrsa Complete 11/27/17 12:30 Indwelling Cath Urine Culture - Final NO GROWTH AFTER 48 HOURS Complete 11/26/17 12:10 Rectal Mucosa VRE Culture - Final Enterococcus Faecalis - Vre Complete Microbiology Date/Time Source Procedure Growth Status 11/28/17 18:10 Blood Blood Culture - Preliminary NO GROWTH AFTER 24 HOURS Resulted 11/28/17 18:00 Blood Blood Culture - Preliminary NO GROWTH AFTER 24 HOURS Resulted Laboratory Tests Test 11/30/17 04:50 11/30/17 07:30 11/30/17 08:30 White Blood Count 8.9 K/UL (4.8-10.8) Red Blood Count 4.41 M/UL (4.20-5.40) Hemoglobin 13.2 G/DL (12.0-16.0) Hematocrit 42.6 % (37.0-47.0) Mean Corpuscular Volume 97 FL (80-99) Mean Corpuscular Hemoglobin 29.9 PG (27.0-31.0) Mean Corpuscular Hemoglobin Concent 31.0 G/DL (32.0-36.0) L Red Cell Distribution Width 16.3 % (11.6-14.8) H Platelet Count 204 K/UL (150-450) Mean Platelet Volume 7.5 FL (6.5-10.1) Neutrophils (%) (Auto) 41.5 % (45.0-75.0) L Lymphocytes (%) (Auto) 37.8 % (20.0-45.0) Monocytes (%) (Auto) 14.1 % (1.0-10.0) H Eosinophils (%) (Auto) 5.7 % (0.0-3.0) H Basophils (%) (Auto) 0.9 % (0.0-2.0) Sodium Level 143 MMOL/L (136-145) Potassium Level 3.5 MMOL/L (3.5-5.1) Chloride Level 103 MMOL/L (98-107) Carbon Dioxide Level 37 MMOL/L (21-32) H Anion Gap 3 mmol/L (5-15) L Blood Urea Nitrogen 10 mg/dL (7-18) Creatinine 0.8 MG/DL (0.55-1.30) Estimat Glomerular Filtration Rate > 60 mL/min (>60) Glucose Level 131 MG/DL (74-106) H Calcium Level 8.9 MG/DL (8.5-10.1) Phosphorus Level 5.8 MG/DL (2.5-4.9) H Magnesium Level 2.0 MG/DL (1.8-2.4) Total Bilirubin 0.4 MG/DL (0.2-1.0) Aspartate Amino Transf (AST/SGOT) 30 U/L (15-37) Alanine Aminotransferase (ALT/SGPT) 39 U/L (12-78) Alkaline Phosphatase 52 U/L (46-116) Total Protein 7.2 G/DL (6.4-8.2) Albumin 2.4 G/DL (3.4-5.0) L Globulin 4.8 g/dL Albumin/Globulin Ratio 0.5 (1.0-2.7) L Arterial Blood pH 7.411 (7.350-7.450) Arterial Blood Partial Pressure CO2 56.9 mmHg (35.0-45.0) *H Arterial Blood Partial Pressure O2 66.9 mmHg (75.0-100.0) L Arterial Blood HCO3 35.3 mmol/L (22.0-26.0) H Arterial Blood Oxygen Saturation 93.3 % (92.0-98.0) Arterial Blood Base Excess 8.8 Doroteo Test Positive Vancomycin Level Trough 13.4 ug/mL (5.0-12.0) H Current Medications Medications (Trade) Dose Ordered Sig/Felipe Route PRN Reason Start Time Stop Time Status Last Admin Dose Admin Acetaminophen (Tylenol) 650 mg Q4H PRN ORAL T>100.5 11/26/17 15:30 12/26/17 15:29 11/30/17 14:28 Albuterol/ Ipratropium (Albuterol/ Ipratropium) 3 ml Q4H PRN HHN Shortness of Breath 11/26/17 15:30 12/01/17 15:29 Allopurinol (Allopurinol) 300 mg DAILY NG 11/27/17 09:00 12/27/17 08:59 11/30/17 09:00 Aspirin (ASA) 81 mg DAILY@0800 GT 11/28/17 09:00 12/28/17 08:59 11/30/17 10:04 Atorvastatin Calcium (Lipitor) 20 mg BEDTIME GT 11/28/17 21:00 12/28/17 20:59 11/29/17 20:21 Dextrose (Dextrose 50%) 25 ml STAT PRN IV Hypoglycemia 11/26/17 15:45 12/26/17 15:44 Dextrose (Dextrose 50%) 50 ml STAT PRN IV Hypoglycemia 11/26/17 15:45 12/26/17 15:44 Digoxin (Lanoxin) 0.25 mg DAILY ORAL 11/27/17 09:00 12/27/17 08:59 11/30/17 10:04 Guaifenesin/ Dextromethorphan (Robitussin DM Syrup) 10 ml Q4H PRN ORAL For Cough 11/30/17 10:00 12/30/17 09:59 11/30/17 10:11 Heparin Sodium (Porcine) (Heparin 5000 units/ml) 5,000 units EVERY 12 HOURS SUBQ 11/26/17 21:00 12/26/17 20:59 11/30/17 10:06 Insulin Aspart (NovoLOG) BEFORE MEALS AND HS SUBQ 11/26/17 21:00 12/26/17 20:59 11/30/17 18:23 Lorazepam (Ativan 2mg/ml 1ml) 2 mg Q2H PRN IV agitation 11/26/17 15:30 12/03/17 15:29 11/28/17 22:50 Morphine Sulfate (Morphine Sulfate) 4 mg Q4H PRN IVP Severe Pain (Pain Scale 7-10) 11/26/17 15:30 12/03/17 15:29 11/28/17 03:48 Nitroglycerin (Ntg) 0.4 mg Q5M PRN SL Prn Chest Pain 11/26/17 15:30 12/26/17 15:29 Ondansetron HCl (Zofran) 4 mg Q6H PRN IVP Nausea & Vomiting 11/26/17 15:30 12/26/17 15:29 11/30/17 11:50 Pantoprazole (Protonix) 40 mg EVERY 12 HOURS IVP 11/27/17 21:00 12/27/17 20:59 11/30/17 10:04 Piperacillin Sod/ Tazobactam Sod 4.5 gm/Dextrose 110 ml @ 27.5 mls/hr Q8HR@0400,1200,2000 IVPB 11/26/17 21:00 12/03/17 20:59 11/30/17 14:15 Vancomycin HCl (Vanco rx to dose) 1 ea DAILYPRN PRN MISC Per rx protocol 11/26/17 18:45 12/26/17 18:44 Vancomycin HCl/ Dextrose 250 ml @ 166.667 mls/hr Q12HR IVPB 11/30/17 21:00 12/05/17 20:59 JUNI ABDUL Nov 30, 2017 19:11
[2017-11-30] MEDS ORDERED: Albuterol/Ipratropium 3ml neb HHN PRN (19:30)
[2017-11-30] MEDS ORDERED: Morphine Sulfate 4mg/ml Inj IVP PRN (19:30)
[2017-11-30] MEDS ORDERED: LORazepam Inj 2mg/ml 1ml IV PRN (19:30)
[2017-11-30] MEDS ORDERED: Vancomycin 1250mg/D5W 250ml IVPB SCH (21:00)
[2017-11-30] MEDS: Guaifenesin/DM 10ml syrup ORAL PRN (21:14)
[2017-11-30] MEDS: Atorvastatin 20mg tab GT SCH (21:14)
[2017-11-30] MEDS: Vancomycin 1250mg/D5W 250ml 250 ML IVPB SCH (21:15)
[2017-12-01] VITALS: BP 130/55
[2017-12-01 04:00] VITALS: BP 134/54
[2017-12-01] MEDS: Piperacillin/Tazobactam 4.5 GM in D5W 110 ML IVPB SCH ×3 (04:42→20:22)
[2017-12-01 04:47] LABS: EOSINOPHILS % (AUTO) 5.4 % (0.0-3.0); HEMATOCRIT 40.4 % (37.0-47.0); HEMOGLOBIN 12.1 G/DL (12.0-16.0); LYMPHOCYTES % (AUTO) 42.9 % (20.0-45.0); MEAN CORPUSCULAR VOLUME 97 FL (80-99); MONOCYTES % (AUTO) 11.7 % (1.0-10.0); PLATELET COUNT 224 K/UL (150-450); RED BLOOD COUNT 4.19 M/UL (4.20-5.40); RED CELL DISTRIBUTION WIDTH 16.2 % (11.6-14.8); WHITE BLOOD COUNT 11.4 K/UL (4.8-10.8)
[2017-12-01 05:01] LABS: ALANINE AMINOTRANSFERASE 38 U/L (12-78); ALBUMIN 2.4 G/DL (3.4-5.0); ALBUMIN/GLOBULIN RATIO 0.5 (1.0-2.7); ALKALINE PHOSPHATASE 63 U/L (46-116); ANION GAP 0 mmol/L (5-15); ASPARTATE AMINO TRANSFERASE 22 U/L (15-37); BILIRUBIN,TOTAL 0.4 MG/DL (0.2-1.0); BLOOD UREA NITROGEN 7 mg/dL (7-18); CARBON DIOXIDE 37 MMOL/L (21-32); CHLORIDE 101 MMOL/L (98-107); CREATININE 0.9 MG/DL (0.55-1.30); POTASSIUM 3.5 MMOL/L (3.5-5.1); SODIUM 138 MMOL/L (136-145)
[2017-12-01] MEDS: NovoLOG Insulin Flexpen SUBQ SCH ×4 (06:14→20:31)
[2017-12-01 08:00] VITALS: BP 107/66
[2017-12-01] MEDS: Pantoprazole Inj IVP SCH ×2 (08:33→20:27)
[2017-12-01] MEDS: Aspirin Baby 81mg GT SCH (08:34)
[2017-12-01] MEDS: Guaifenesin/DM 10ml syrup ORAL PRN (08:35)
[2017-12-01] MEDS: Vancomycin 1250mg/D5W 250ml 250 ML IVPB SCH ×2 (08:37→20:26)
[2017-12-01] MEDS: Heparin 5000 units/ml inj SUBQ SCH ×2 (08:39→20:28)
--- NOTE | 2017-12-01 10:28 | Pulmonology Progress Note ---
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 Discussed with: nurses, consultants, case picker Subjective ROS Limited/Unobtainable: No Interval Events: off bipap, tolerating extubation Constitutional: Reports: no symptoms HEENT: Repors: no symptoms Respiratory: Reports: no symptoms Allergies: Coded Allergies: ASPARTAME (Verified Allergy, Unknown, 11/30/17) Headache Objective Last 24 Hour Vital Signs Date Time Temp Pulse Resp B/P (MAP) Pulse Ox O2 Delivery O2 Flow Rate FiO2 12/01/17 09:36 98.4 12/01/17 09:31 97 Nasal Cannula 3.0 32 12/01/17 09:23 69 20 Nasal Cannula 3.0 32 12/01/17 09:23 Nasal Cannula 3.0 32 12/01/17 08:37 98.4 12/01/17 08:33 71 12/01/17 08:00 69 12/01/17 08:00 98.5 72 20 107/66 100 Nasal Cannula 2.0 98.5 12/01/17 04:00 98.4 79 20 134/54 96 Bi-pap 35 98.4 12/01/17 03:48 82 12/01/17 00:00 98.0 74 14 130/55 100 Bi-pap 35 98.0 11/30/17 23:41 74 11/30/17 23:30 76 17 97 Facial 35 11/30/17 22:13 89 22 96 Facial 35 11/30/17 20:00 98.2 77 18 122/51 95 Nasal Cannula 2.0 98.2 11/30/17 19:30 76 11/30/17 19:08 79 20 Nasal Cannula 3.0 32 11/30/17 19:08 Nasal Cannula 3.0 32 11/30/17 19:08 96 Nasal Cannula 3.0 32 11/30/17 18:00 77 23 137/61 94 Nasal Cannula 2.0 4/23/18 17:00 73 29 122/44 96 Nasal Cannula 2.0 11/30/17 16:00 77 11/30/17 16:00 75 29 113/42 86 Nasal Cannula 3.0 11/30/17 15:27 98.7 11/30/17 15:00 76 20 140/90 98 Nasal Cannula 3.0 11/30/17 14:28 98.7 11/30/17 14:00 71 20 131/59 94 Nasal Cannula 3.0 11/30/17 13:00 70 18 156/74 98 Nasal Cannula 3.0 11/30/17 12:00 66 24 122/39 95 Nasal Cannula 2.0 11/30/17 12:00 66 11/30/17 11:00 71 20 122/41 97 Nasal Cannula 2.0 Intake and Output 11/30/17 12/01/17 19:00 07:00 Intake Total 578.624 ml 401.667 ml Output Total 650 ml 50 ml Balance -71.376 ml 351.667 ml IV Total 578.624 ml 401.667 ml Tube Feeding 0 ml Output Urine Total 650 ml 50 ml Stool Total 0 ml # Bowel Movements 2 General Appearance: WD/WN HEENT: normocephalic, atraumatic Respiratory/Chest: chest wall non-tender, lungs clear Breasts: no masses Cardiovascular: normal peripheral pulses, normal rate Abdomen: normal bowel sounds, soft, non tender Genitourinary: normal external genitalia Extremities: no cyanosis Skin: no rash Microbiology Date/Time Source Procedure Growth Status 11/28/17 18:10 Blood Blood Culture - Preliminary NO GROWTH AFTER 48 HOURS Resulted 11/28/17 18:00 Blood Blood Culture - Preliminary NO GROWTH AFTER 48 HOURS Resulted Laboratory Tests 12/01/17 03:25: White Blood Count 11.4H, Red Blood Count 4.19L, Hemoglobin 12.1, Hematocrit 40.4 , Mean Corpuscular Volume 97, Mean Corpuscular Hemoglobin 29.0, Mean Corpuscular Hemoglobin Concent 30.0L, Red Cell Distribution Width 16.2H, Platelet Count 224, Mean Platelet Volume 7.2, Neutrophils (%) (Auto) 39.0L, Lymphocytes (%) (Auto) 42.9, Monocytes (%) (Auto) 11.7H, Eosinophils (%) (Auto) 5.4H, Basophils (%) (Auto) 1.0, Sodium Level 138, Potassium Level 3.5, Chloride Level 101, Carbon Dioxide Level 37H, Anion Gap 0L, Blood Urea Nitrogen 7, Creatinine 0.9, Estimat Glomerular Filtration Rate > 60, Glucose Level 157H, Calcium Level 9.0, Total Bilirubin 0.4, Aspartate Amino Transf (AST/SGOT) 22, Alanine Aminotransferase (ALT/SGPT) 38, Alkaline Phosphatase 63, Pro-B-Type Natriuretic Peptide 160H, Total Protein 7.5, Albumin 2.4L, Globulin 5.1, Albumin /Globulin Ratio 0.5L Current Medications Medications (Trade) Dose Ordered Sig/Felipe Route PRN Reason Start Time Stop Time Status Last Admin Dose Admin Acetaminophen (Tylenol) 650 mg Q4H PRN ORAL T>100.5 11/30/17 19:30 12/26/17 15:29 12/01/17 08:37 Albuterol/ Ipratropium (Albuterol/ Ipratropium) 3 ml Q4H PRN HHN Shortness of Breath 11/30/17 19:30 12/01/17 15:29 Allopurinol (Allopurinol) 300 mg DAILY NG 12/01/17 09:00 12/27/17 08:59 12/01/17 08:33 Aspirin (ASA) 81 mg DAILY@0800 GT 12/01/17 08:00 12/28/17 08:59 12/01/17 08:34 Atorvastatin Calcium (Lipitor) 20 mg BEDTIME GT 11/30/17 21:00 12/28/17 20:59 11/30/17 21:14 Dextrose (Dextrose 50%) 25 ml STAT PRN IV Hypoglycemia 11/30/17 19:34 12/30/17 19:33 Dextrose (Dextrose 50%) 50 ml STAT PRN IV Hypoglycemia 11/30/17 19:34 12/30/17 19:33 Digoxin (Lanoxin) 0.25 mg DAILY ORAL 12/01/17 09:00 12/27/17 08:59 12/01/17 08:33 Guaifenesin/ Dextromethorphan (Robitussin DM Syrup) 10 ml Q4H PRN ORAL For Cough 11/30/17 19:38 12/30/17 19:37 12/01/17 08:35 Heparin Sodium (Porcine) (Heparin 5000 units/ml) 5,000 units EVERY 12 HOURS SUBQ 11/30/17 21:00 12/26/17 20:59 12/01/17 08:39 Insulin Aspart (NovoLOG) BEFORE MEALS AND HS SUBQ 11/30/17 21:00 12/26/17 20:59 12/01/17 06:14 Lorazepam (Ativan 2mg/ml 1ml) 2 mg Q2H PRN IV agitation 11/30/17 19:30 12/03/17 15:29 Morphine Sulfate (Morphine Sulfate) 4 mg Q4H PRN IVP Severe Pain (Pain Scale 7-10) 11/30/17 19:30 12/03/17 15:29 Nitroglycerin (Ntg) 0.4 mg Q5M PRN SL Prn Chest Pain 11/30/17 19:05 12/26/17 15:29 Ondansetron HCl (Zofran) 4 mg Q6H PRN IVP Nausea & Vomiting 11/30/17 19:40 12/30/17 19:39 Pantoprazole (Protonix) 40 mg EVERY 12 HOURS IVP 11/30/17 21:00 12/27/17 20:59 12/01/17 08:33 Piperacillin Sod/ Tazobactam Sod 4.5 gm/Dextrose 110 ml @ 27.5 mls/hr Q8HR@0400,1200,2000 IVPB 11/30/17 20:00 12/03/17 23:59 12/01/17 04:42 Vancomycin HCl (Vanco rx to dose) 1 ea DAILYPRN PRN MISC Per rx protocol 11/30/17 19:41 12/30/17 19:40 Vancomycin HCl/ Dextrose 250 ml @ 166.667 mls/hr Q12HR IVPB 11/30/17 21:00 12/05/17 23:59 12/01/17 08:37 Yariel Malone MD Dec 01, 2017 10:28
--- NOTE | 2017-12-01 10:47 | Diagnostic Imaging Report ---
Indication: Dyspnea Technique: One view of the chest Comparison: 11/30/2017 Findings: The heart is enlarged. The lungs and pleural spaces are clear. There are degenerative spondylosis changes There is no significant interim change Impression: Cardiomegaly. No acute process
[2017-12-01 12:00] VITALS: BP 109/66
[2017-12-01 16:00] VITALS: BP 106/59
[2017-12-01] MEDS ORDERED: AUGMENTIN 875-1 EAC1 ORAL (17:24)
[2017-12-01] MEDS ORDERED: Vanco pharmacy to dose MISC (17:24)
[2017-12-01] MEDS ORDERED: Albuterol/Ipratropium 3ml neb HHN PRN (17:45)
[2017-12-01] MEDS: guaiFENesin ER 600mg tab ORAL SCH (18:20)
[2017-12-01] MEDS: Albuterol/Ipratropium 3ml neb HHN SCH (19:26)
[2017-12-01] MEDS: Acetylcysteine 20% Soln 4ml HHN SCH (19:28)
[2017-12-01 20:00] VITALS: BP 113/56
[2017-12-01] MEDS: Atorvastatin 20mg tab GT SCH (20:32)
--- NOTE | 2017-12-01 22:35 | General Progress Note ---
Assessment/Plan Problem List: (1) Acute toxic metabolic encephalopathy (2) Acute respiratory failure with hypoxia and hypercapnia ICD Codes: J96.01 - Acute respiratory failure with hypoxia; J96.02 - Acute respiratory failure with hypercapnia SNOMED: 36946713, 06373519, 455981253 (3) Severe sepsis ICD Codes: A41.9 - Sepsis, unspecified organism; R65.20 - Severe sepsis without septic shock SNOMED: 61163985 (4) Aspiration pnemonia vs HCAP Assessment & Plan: 2/2 MRSA (5) Likely obesity hypoventilation syndrome (6) Chronic diastolic (congestive) heart failure ICD Codes: I50.32 - Chronic diastolic (congestive) heart failure SNOMED: 20264674, 684875782 (7) Hyperkalemia ICD Codes: E87.5 - Hyperkalemia SNOMED: 04122387 (8) KASHIF (acute kidney injury) ICD Codes: N17.9 - Acute kidney failure, unspecified SNOMED: 96087312 (9) GERD (gastroesophageal reflux disease) ICD Codes: K21.9 - Gastro-esophageal reflux disease without esophagitis SNOMED: 052810281 (10) DM2 (diabetes mellitus, type 2) ICD Codes: E11.9 - Type 2 diabetes mellitus without complications SNOMED: 25141395 (11) Morbid obesity ICD Codes: E66.01 - Morbid (severe) obesity due to excess calories SNOMED: 289002049, 95956240066956 (12) Fatty liver ICD Codes: K76.0 - Fatty (change of) liver, not elsewhere classified SNOMED: 596751665 (13) Abdominal pain ICD Codes: R10.9 - Unspecified abdominal pain SNOMED: 43387269 Qualifiers: Qualified Codes: R10.84 - Generalized abdominal pain (14) Hypokalemia ICD Codes: E87.6 - Hypokalemia SNOMED: 33888846 Status: stable Assessment/Plan Cont YESI care Pulm/critical care consulted s/p extubation on 11/29/17 BiPAP qHS and PRN Monitor hemodynamics. No indication for pressors at this time ID consulted Empiric vanco and zosyn for aspiration pneumonia vs HCAP (CXR w/ RLL infiltrate) F/u blood cultures---1 set w/ coag neg staph. 2nd set neg. Repeat blood cx NGTD F/u resp culture--shows MRSA General surg eval given abdominal pain--no acute surgical intervention indicated LESTER Cont SNF meds as appropriate Start tube feeds via NGT Monitor CBC, BMP Pain control, bowel regimen Supportive care PPI PT/OT Possible d/c in 1-2 days pending pulm clearance and ID rec's on abx. D/w pulm and OK to d/c tomorrow. D/w ID who recommends vanco + augmentin x 5 days on d/c DVT Prophylaxis: SCD, HSQ Code Status: Full Hospital Classification Declaration: Based on this initial evaluation, and depending on the patient's clinical course, I anticipate that this patient will require hospitalization for 1-2 days for severe sepsis, respiratory failure and close respiratory/hemodynamic monitoring. I spent 38min on this case w/ >50% on care/coordination and counseling. Discussed with patient, RN, SW/CM, pulm, ID regarding mgmt and dispo. D/w ID re abx. D/w pulm re downgrading to PCU, BiPAP qHS and PRN Time of note may not reflect time of encounter. Subjective Date patient seen: Dec 01, 2017 Time patient seen: 14:00 ROS Limited/Unobtainable: No Constitutional: Reports: no symptoms HEENT: Reports: no symptoms Cardiovascular: Reports: no symptoms Respiratory: Reports: cough, shortness of breath Gastrointestinal/Abdominal: Reports: no symptoms Genitourinary: Reports: no symptoms Neurologic/Psychiatric: Reports: no symptoms Endocrine: Reports: no symptoms Hematologic/Lymphatic: Reports: no symptoms Allergies: Coded Allergies: ASPARTAME (Verified Allergy, Unknown, 11/30/17) Headache All Systems: reviewed and negative except above Subjective No acute o/n events s/p extubation on 11/29/17 Used BiPAP overnight Pt awake, alert. C/o cough w/ some sputum production. SOB improving. Denies f/c , n/v, d/c, chest pain Objective Last 24 Hour Vital Signs Date Time Temp Pulse Resp B/P (MAP) Pulse Ox O2 Delivery O2 Flow Rate FiO2 12/01/17 20:00 98.2 63 20 113/56 97 Nasal Cannula 2.0 98.2 12/01/17 20:00 77 12/01/17 19:31 88 18 97 Nasal Cannula 3.0 4/24/18 19:31 Nasal Cannula 3.0 32 12/01/17 19:30 97 Nasal Cannula 3.0 32 12/01/17 19:30 88 20 Nasal Cannula 3.0 32 12/01/17 16:45 74 12/01/17 16:00 98.0 72 20 106/59 95 Nasal Cannula 2.0 98.0 12/01/17 12:00 99.0 76 19 109/66 94 Nasal Cannula 2.0 99.0 12/01/17 12:00 77 12/01/17 09:36 98.4 12/01/17 09:31 97 Nasal Cannula 3.0 32 12/01/17 09:23 69 20 Nasal Cannula 3.0 32 12/01/17 09:23 Nasal Cannula 3.0 32 12/01/17 08:37 98.4 12/01/17 08:33 71 12/01/17 08:00 69 12/01/17 08:00 98.5 72 20 107/66 100 Nasal Cannula 2.0 98.5 12/01/17 04:00 98.4 79 20 134/54 96 Bi-pap 35 98.4 12/01/17 03:48 82 12/01/17 00:00 98.0 74 14 130/55 100 Bi-pap 35 98.0 11/30/17 23:41 74 11/30/17 23:30 76 17 97 Facial 35 Intake and Output 11/30/17 12/01/17 19:00 07:00 Intake Total 578.624 ml 401.667 ml Output Total 650 ml 50 ml Balance -71.376 ml 351.667 ml IV Total 578.624 ml 401.667 ml Tube Feeding 0 ml Output Urine Total 650 ml 50 ml Stool Total 0 ml # Bowel Movements 2 Laboratory Tests 12/01/17 03:25: White Blood Count 11.4H, Red Blood Count 4.19L, Hemoglobin 12.1, Hematocrit 40.4 , Mean Corpuscular Volume 97, Mean Corpuscular Hemoglobin 29.0, Mean Corpuscular Hemoglobin Concent 30.0L, Red Cell Distribution Width 16.2H, Platelet Count 224, Mean Platelet Volume 7.2, Neutrophils (%) (Auto) 39.0L, Lymphocytes (%) (Auto) 42.9, Monocytes (%) (Auto) 11.7H, Eosinophils (%) (Auto) 5.4H, Basophils (%) (Auto) 1.0, Sodium Level 138, Potassium Level 3.5, Chloride Level 101, Carbon Dioxide Level 37H, Anion Gap 0L, Blood Urea Nitrogen 7, Creatinine 0.9, Estimat Glomerular Filtration Rate > 60, Glucose Level 157H, Calcium Level 9.0, Total Bilirubin 0.4, Aspartate Amino Transf (AST/SGOT) 22, Alanine Aminotransferase (ALT/SGPT) 38, Alkaline Phosphatase 63, Pro-B-Type Natriuretic Peptide 160H, Total Protein 7.5, Albumin 2.4L, Globulin 5.1, Albumin /Globulin Ratio 0.5L Height (Feet): 5 Height (Inches): 4.00 Weight (Pounds): 421 Objective General: alert, cooperative, no distress, appears stated age, obese Head: normocephalic, without obvious abnormality, atraumatic Eyes: conjunctivae/corneas clear. PERRL, EOM's intact Throat: lips, mucosa, and tongue normal. MMM Neck: supple, symmetrical, trachea midline, and no JVD Lungs: +rhonchi R>L Heart: regular rate and rhythm, S1, S2 normal, no murmur, click, rub or gallop Abdomen: soft, non-tender, non-distended, bowel sounds normal; obese abd Extremities: extremities normal, atraumatic, no cyanosis, 1+BLE edema Pulses: 2+ and symmetric Skin: skin color, texture, turgor normal; no rashes or lesions Neurologic: grossly normal, no focal deficits Cassie Bolivar M.D. Dec 01, 2017 22:35
[2017-12-01] MEDS ORDERED: NS 275ml ONE (22:52)
[2017-12-01] MEDS ORDERED: Tubing IV Secondary IV ONE (22:52)
[2017-12-02] VITALS: BP 130/79
[2017-12-02] MEDS: Acetylcysteine 20% Soln 4ml HHN SCH ×4 (01:00→17:00)
[2017-12-02] MEDS: Albuterol/Ipratropium 3ml neb HHN SCH ×4 (01:14→17:00)
[2017-12-02] MEDS: Guaifenesin/DM 10ml syrup ORAL PRN (03:52)
[2017-12-02] MEDS: Piperacillin/Tazobactam 4.5 GM in D5W 110 ML IVPB SCH ×2 (03:53→14:00)
[2017-12-02 04:00] VITALS: BP 124/59
[2017-12-02 04:41] LABS: BASOPHILS % (AUTO) 0.9 % (0.0-2.0); EOSINOPHILS % (AUTO) 3.4 % (0.0-3.0); HEMATOCRIT 40.8 % (37.0-47.0); HEMOGLOBIN 12.5 G/DL (12.0-16.0); LYMPHOCYTES % (AUTO) 27.8 % (20.0-45.0); MEAN CORPUSCULAR VOLUME 96 FL (80-99); MONOCYTES % (AUTO) 10.3 % (1.0-10.0); NEUTROPHILS % (AUTO) 57.6 % (45.0-75.0); PLATELET COUNT 221 K/UL (150-450); RED BLOOD COUNT 4.23 M/UL (4.20-5.40); RED CELL DISTRIBUTION WIDTH 15.5 % (11.6-14.8); WHITE BLOOD COUNT 9.4 K/UL (4.8-10.8)
[2017-12-02 05:17] LABS: ALANINE AMINOTRANSFERASE 42 U/L (12-78); ALBUMIN 2.6 G/DL (3.4-5.0); ALBUMIN/GLOBULIN RATIO 0.5 (1.0-2.7); ALKALINE PHOSPHATASE 77 U/L (46-116); ANION GAP -1 mmol/L (5-15); ASPARTATE AMINO TRANSFERASE 32 U/L (15-37); BILIRUBIN,TOTAL 0.3 MG/DL (0.2-1.0); BLOOD UREA NITROGEN 8 mg/dL (7-18); CALCIUM 8.9 MG/DL (8.5-10.1); CARBON DIOXIDE 38 MMOL/L (21-32); CHLORIDE 100 MMOL/L (98-107); CREATININE 0.9 MG/DL (0.55-1.30); PHOSPHORUS 3.1 MG/DL (2.5-4.9); POTASSIUM 3.6 MMOL/L (3.5-5.1); SODIUM 137 MMOL/L (136-145)
[2017-12-02] MEDS: NovoLOG Insulin Flexpen SUBQ SCH ×3 (06:32→17:43)
[2017-12-02 08:00] VITALS: BP 128/68
[2017-12-02] MEDS: Pantoprazole Inj IVP SCH (08:51)
[2017-12-02] MEDS: guaiFENesin ER 600mg tab ORAL SCH ×2 (08:52→17:46)
[2017-12-02] MEDS: Aspirin Baby 81mg GT SCH (08:52)
[2017-12-02] MEDS: Heparin 5000 units/ml inj SUBQ SCH (08:53)
[2017-12-02] MEDS: Vancomycin 1250mg/D5W 250ml 250 ML IVPB SCH (08:54)
--- NOTE | 2017-12-02 10:35 | Pulmonology Progress Note ---
Assessment/Plan Problems: (1) Acute encephalopathy (2) Acute respiratory failure with hypoxia and hypercapnia (3) DM2 (diabetes mellitus, type 2) (4) HTN (hypertension) (5) Morbid obesity Assessment/Plan improving less cough tolerating extubation very well eating well titrate fio2 to sat of 92% dvt prophylaxis BIPAP prn Subjective ROS Limited/Unobtainable: No Constitutional: Reports: no symptoms HEENT: Repors: no symptoms Respiratory: Reports: no symptoms Cardiovascular: Reports: no symptoms Allergies: Coded Allergies: ASPARTAME (Verified Allergy, Unknown, 11/30/17) Headache Objective Last 24 Hour Vital Signs Date Time Temp Pulse Resp B/P (MAP) Pulse Ox O2 Delivery O2 Flow Rate FiO2 12/02/17 09:18 Nasal Cannula 3.0 32 12/02/17 09:17 92 Room Air 21 12/02/17 09:16 83 18 Room Air 21 12/02/17 09:10 83 18 92 Room Air 21 12/02/17 08:51 91 12/02/17 08:00 98.2 86 20 128/68 97 Nasal Cannula 2.0 98.2 12/02/17 08:00 91 12/02/17 07:37 97.7 12/02/17 04:00 97.7 88 20 124/59 95 Nasal Cannula 2.0 97.7 12/02/17 04:00 81 12/02/17 02:05 97.9 12/02/17 01:30 91 18 99 Nasal Cannula 3.0 12/02/17 01:15 82 18 97 Nasal Cannula 3.0 12/02/17 00:00 71 12/02/17 00:00 97.9 72 20 130/79 96 Bi-pap 35 97.9 12/01/17 20:00 98.2 63 20 113/56 97 Nasal Cannula 2.0 98.2 12/01/17 20:00 70 12/01/17 19:51 82 18 100 Nasal Cannula 3.0 12/01/17 19:31 88 18 97 Nasal Cannula 3.0 12/01/17 19:31 Nasal Cannula 3.0 32 12/01/17 19:30 97 Nasal Cannula 3.0 32 12/01/17 19:30 88 20 Nasal Cannula 3.0 32 12/01/17 16:45 74 12/01/17 16:00 98.0 72 20 106/59 95 Nasal Cannula 2.0 98.0 12/01/17 12:00 99.0 76 19 109/66 94 Nasal Cannula 2.0 99.0 12/01/17 12:00 77 Intake and Output 12/01/17 12/02/17 19:00 07:00 Intake Total 1070.000 ml 620.000 ml Output Total 200 ml 300 ml Balance 870.000 ml 320.000 ml Intake Oral 710 ml 150 ml IV Total 360.000 ml 470.000 ml Output Urine Total 200 ml 300 ml # Bowel Movements 2 General Appearance: WD/WN HEENT: normocephalic, atraumatic Respiratory/Chest: chest wall non-tender, lungs clear, decreased breath sounds Breasts: no masses Cardiovascular: normal peripheral pulses, normal rate Abdomen: normal bowel sounds, soft, non tender Genitourinary: normal external genitalia Extremities: no cyanosis Neurologic/Psychiatric: lactation specialist II-XII grossly normal, no motor/sensory deficits Lymphatic: no neck adenopathy Laboratory Tests 12/02/17 03:45: White Blood Count 9.4, Red Blood Count 4.23, Hemoglobin 12.5, Hematocrit 40.8, Mean Corpuscular Volume 96, Mean Corpuscular Hemoglobin 29.5, Mean Corpuscular Hemoglobin Concent 30.6L, Red Cell Distribution Width 15.5H, Platelet Count 221 , Mean Platelet Volume 7.0, Neutrophils (%) (Auto) 57.6, Lymphocytes (%) (Auto) 27.8, Monocytes (%) (Auto) 10.3H, Eosinophils (%) (Auto) 3.4H, Basophils (%) ( Auto) 0.9, Sodium Level 137, Potassium Level 3.6, Chloride Level 100, Carbon Dioxide Level 38H, Anion Gap -1L, Blood Urea Nitrogen 8, Creatinine 0.9, Estimat Glomerular Filtration Rate > 60, Glucose Level 192H, Calcium Level 8.9, Phosphorus Level 3.1, Magnesium Level 1.6L, Total Bilirubin 0.3, Aspartate Amino Transf (AST/SGOT) 32, Alanine Aminotransferase (ALT/SGPT) 42, Alkaline Phosphatase 77, Total Protein 7.9, Albumin 2.6L, Globulin 5.3, Albumin/Globulin Ratio 0.5L Current Medications Medications (Trade) Dose Ordered Sig/Felipe Route PRN Reason Start Time Stop Time Status Last Admin Dose Admin Acetaminophen (Tylenol) 650 mg Q4H PRN ORAL T>100.5 11/30/17 19:30 12/26/17 15:29 12/02/17 06:38 Acetylcysteine (Mucomyst) 200 mg Q6HRT HHN 12/01/17 19:00 12/31/17 18:59 12/02/17 09:13 Albuterol/ Ipratropium (Albuterol/ Ipratropium) 3 ml Q4H PRN HHN Shortness of Breath 12/01/17 17:45 12/06/17 17:44 Albuterol/ Ipratropium (Albuterol/ Ipratropium) 3 ml Q6HRT HHN 12/01/17 19:00 12/06/17 18:59 12/02/17 09:11 Allopurinol (Allopurinol) 300 mg DAILY NG 12/01/17 09:00 12/27/17 08:59 12/02/17 08:52 Aspirin (ASA) 81 mg DAILY@0800 GT 12/01/17 08:00 12/28/17 08:59 12/02/17 08:52 Atorvastatin Calcium (Lipitor) 20 mg BEDTIME GT 11/30/17 21:00 12/28/17 20:59 12/01/17 20:32 Dextrose (Dextrose 50%) 25 ml STAT PRN IV Hypoglycemia 11/30/17 19:34 12/30/17 19:33 Dextrose (Dextrose 50%) 50 ml STAT PRN IV Hypoglycemia 11/30/17 19:34 12/30/17 19:33 Digoxin (Lanoxin) 0.25 mg DAILY ORAL 12/01/17 09:00 12/27/17 08:59 12/02/17 08:51 Guaifenesin (Mucinex ER) 600 mg TWICE A DAY ORAL 12/01/17 18:00 12/31/17 17:59 12/02/17 08:52 Guaifenesin/ Dextromethorphan (Robitussin DM Syrup) 10 ml Q4H PRN ORAL For Cough 11/30/17 19:38 12/30/17 19:37 12/02/17 03:52 Heparin Sodium (Porcine) (Heparin 5000 units/ml) 5,000 units EVERY 12 HOURS SUBQ 11/30/17 21:00 12/26/17 20:59 12/02/17 08:53 Insulin Aspart (NovoLOG) BEFORE MEALS AND HS SUBQ 11/30/17 21:00 12/26/17 20:59 12/02/17 06:32 Lorazepam (Ativan 2mg/ml 1ml) 2 mg Q2H PRN IV agitation 11/30/17 19:30 12/03/17 15:29 Magnesium Sulfate 100 ml @ 100 mls/hr ONCE ONCE IVPB 12/02/17 10:00 12/02/17 10:59 Morphine Sulfate (Morphine Sulfate) 4 mg Q4H PRN IVP Severe Pain (Pain Scale 7-10) 11/30/17 19:30 12/03/17 15:29 Nitroglycerin (Ntg) 0.4 mg Q5M PRN SL Prn Chest Pain 11/30/17 19:05 12/26/17 15:29 Ondansetron HCl (Zofran) 4 mg Q6H PRN IVP Nausea & Vomiting 11/30/17 19:40 12/30/17 19:39 12/02/17 06:36 Pantoprazole (Protonix) 40 mg EVERY 12 HOURS IVP 11/30/17 21:00 12/27/17 20:59 12/02/17 08:51 Piperacillin Sod/ Tazobactam Sod 4.5 gm/Dextrose 110 ml @ 27.5 mls/hr Q8HR@0400,1200,2000 IVPB 11/30/17 20:00 12/03/17 23:59 12/02/17 03:53 Vancomycin HCl (Vanco rx to dose) 1 ea DAILYPRN PRN MISC Per rx protocol 11/30/17 19:41 12/30/17 19:40 Vancomycin HCl/ Dextrose 250 ml @ 166.667 mls/hr Q12HR IVPB 11/30/17 21:00 12/05/17 23:59 12/02/17 08:54 Yariel Malone MD Dec 02, 2017 10:35
[2017-12-02 12:00] VITALS: BP 123/69
--- NOTE | 2017-12-02 12:08 | General Surgery Progress Note ---
General Surgery-Progress Note Subjective Symptoms: improved Additional Comments doing well. no acute events. Objective Last 24 Hour Vital Signs Date Time Temp Pulse Resp B/P (MAP) Pulse Ox O2 Delivery O2 Flow Rate FiO2 12/02/17 09:20 81 20 94 Nasal Cannula 3.0 32 12/02/17 09:18 Nasal Cannula 3.0 32 12/02/17 09:17 92 Room Air 21 12/02/17 09:16 83 18 Room Air 21 12/02/17 09:10 83 18 92 Room Air 21 12/02/17 08:51 91 12/02/17 08:00 98.2 86 20 128/68 97 Nasal Cannula 2.0 98.2 12/02/17 08:00 91 12/02/17 07:37 97.7 12/02/17 04:00 97.7 88 20 124/59 95 Nasal Cannula 2.0 97.7 12/02/17 04:00 81 12/02/17 02:05 97.9 12/02/17 01:30 91 18 99 Nasal Cannula 3.0 12/02/17 01:15 82 18 97 Nasal Cannula 3.0 12/02/17 00:00 71 12/02/17 00:00 97.9 72 20 130/79 96 Bi-pap 35 97.9 12/01/17 20:00 98.2 63 20 113/56 97 Nasal Cannula 2.0 98.2 12/01/17 20:00 70 12/01/17 19:51 82 18 100 Nasal Cannula 3.0 12/01/17 19:31 88 18 97 Nasal Cannula 3.0 12/01/17 19:31 Nasal Cannula 3.0 32 12/01/17 19:30 97 Nasal Cannula 3.0 32 12/01/17 19:30 88 20 Nasal Cannula 3.0 32 12/01/17 16:45 74 12/01/17 16:00 98.0 72 20 106/59 95 Nasal Cannula 2.0 98.0 I&O Intake and Output 12/01/17 12/02/17 19:00 07:00 Intake Total 1070.000 ml 620.000 ml Output Total 200 ml 300 ml Balance 870.000 ml 320.000 ml Intake Oral 710 ml 150 ml IV Total 360.000 ml 470.000 ml Output Urine Total 200 ml 300 ml # Bowel Movements 2 Drains: none Cardiovascular: RSR Respiratory: clear Abdomen: soft, flat, non-tender, present bowel sounds Extremities: no cyanosis Laboratory Tests Test 12/02/17 03:45 White Blood Count 9.4 K/UL (4.8-10.8) Red Blood Count 4.23 M/UL (4.20-5.40) Hemoglobin 12.5 G/DL (12.0-16.0) Hematocrit 40.8 % (37.0-47.0) Mean Corpuscular Volume 96 FL (80-99) Mean Corpuscular Hemoglobin 29.5 PG (27.0-31.0) Mean Corpuscular Hemoglobin Concent 30.6 G/DL (32.0-36.0) L Red Cell Distribution Width 15.5 % (11.6-14.8) H Platelet Count 221 K/UL (150-450) Mean Platelet Volume 7.0 FL (6.5-10.1) Neutrophils (%) (Auto) 57.6 % (45.0-75.0) Lymphocytes (%) (Auto) 27.8 % (20.0-45.0) Monocytes (%) (Auto) 10.3 % (1.0-10.0) H Eosinophils (%) (Auto) 3.4 % (0.0-3.0) H Basophils (%) (Auto) 0.9 % (0.0-2.0) Sodium Level 137 MMOL/L (136-145) Potassium Level 3.6 MMOL/L (3.5-5.1) Chloride Level 100 MMOL/L (98-107) Carbon Dioxide Level 38 MMOL/L (21-32) H Anion Gap -1 mmol/L (5-15) L Blood Urea Nitrogen 8 mg/dL (7-18) Creatinine 0.9 MG/DL (0.55-1.30) Estimat Glomerular Filtration Rate > 60 mL/min (>60) Glucose Level 192 MG/DL (74-106) H Calcium Level 8.9 MG/DL (8.5-10.1) Phosphorus Level 3.1 MG/DL (2.5-4.9) Magnesium Level 1.6 MG/DL (1.8-2.4) L Total Bilirubin 0.3 MG/DL (0.2-1.0) Aspartate Amino Transf (AST/SGOT) 32 U/L (15-37) Alanine Aminotransferase (ALT/SGPT) 42 U/L (12-78) Alkaline Phosphatase 77 U/L (46-116) Total Protein 7.9 G/DL (6.4-8.2) Albumin 2.6 G/DL (3.4-5.0) L Globulin 5.3 g/dL Albumin/Globulin Ratio 0.5 (1.0-2.7) L Plan Problems: (1) Abdominal pain Assessment & Plan: initially complaining of abdominal pain which has since resolved. intubated in ICU and recovering from ALOC and respiratory distress. extubated now and doing well. in YESI comfortable. tolerating diet. no abd pain. diet as tolerated. okay from surgical standpoint will sign off for now thank you for this consultation. will follow with you Stevan Romero Dec 02, 2017 12:08
[2017-12-02 16:00] VITALS: BP 108/66
--- NOTE | 2017-12-02 17:12 | Discharge Summary ---
Discharge Summary Hospital Course Date of Admission Nov 26, 2017 at 12:30 Date of Discharge 12/02/17 Admitting Diagnosis Acute respiratory failure Reason for Hospitalization: Acute respiratory failure HPI 57y/o female with pmh of morbid obesity, HTN, asthma, DM2, GERD, likely obesity hypoventilation syndrome, admission in Aug 2017 for septic shock and acute respiratory failure requiring intubation who presents with ALOC. Per report, pt noted to be altered at SNF, more lethargic, unresponsive. She was noted to have pinpoint pupils so she was given narcan w/ slight response. In ER, pt was trialed on BiPAP but had respiratory acidosis despite BIPAP so she was emergently intubated. History limited as pt intubated, sedated. Consultations Pulmonology, Infectious disease, General surgery Hospital Course Pt was admitted to ICU intubated and sedated. She was continued on broad- spectrum antibiotics given concern for pneumonia (R lower lobe infiltrate on CXR ). She was slowly weaned from ventilator and extubated on 11/29/17 and did well on nasal cannula. Pt was ordered for BiPAP qHS and PRN. Compliance was encouraged. Pt notes that she has been on CPAP for BASHIR but sometimes does not use it at night. Her respiratory status improved prior to discharge. She is to continue vanco IV and augmentin PO for 5 more days on discharge to complete treatment for pneumonia. Pt with likely obesity hypoventilation syndrome. Pt is to follow-up with her strap maker for consideration of trilogy or BiPAP at her SNF. This was discussed with her PCP Dr. Lucio. Discharge physical exam General: alert, cooperative, no distress, appears stated age, obese Head: normocephalic, without obvious abnormality, atraumatic Eyes: conjunctivae/corneas clear. PERRL, EOM's intact Throat: lips, mucosa, and tongue normal. MMM Neck: supple, symmetrical, trachea midline Lungs:+ rhonchi b/l (improved), decreased breath sounds b/l Heart: regular rate and rhythm, S1, S2 normal, no murmur, click, rub or gallop Abdomen: soft, non-tender, non-distended, bowel sounds normal; obese abd Extremities: extremities normal, atraumatic, no cyanosis, trace BLE edema Pulses: 2+ and symmetric Skin: skin color, texture, turgor normal; no rashes or lesions Neurologic: grossly normal, no focal deficits Discharge diagnoses: (1) Acute toxic metabolic encephalopathy (2) Acute respiratory failure with hypoxia and hypercapnia ICD Codes: J96.01 - Acute respiratory failure with hypoxia; J96.02 - Acute respiratory failure with hypercapnia SNOMED: 11002565, 01571642, 910173642 (3) Severe sepsis ICD Codes: A41.9 - Sepsis, unspecified organism; R65.20 - Severe sepsis without septic shock SNOMED: 37788622 (4) Aspiration pnemonia vs HCAP Assessment & Plan: 2/2 MRSA (5) Likely obesity hypoventilation syndrome (6) Chronic diastolic (congestive) heart failure ICD Codes: I50.32 - Chronic diastolic (congestive) heart failure SNOMED: 15031773, 731350631 (7) Hyperkalemia ICD Codes: E87.5 - Hyperkalemia SNOMED: 35723141 (8) KASHIF (acute kidney injury) ICD Codes: N17.9 - Acute kidney failure, unspecified SNOMED: 00192885 (9) GERD (gastroesophageal reflux disease) ICD Codes: K21.9 - Gastro-esophageal reflux disease without esophagitis SNOMED: 348762878 (10) DM2 (diabetes mellitus, type 2) ICD Codes: E11.9 - Type 2 diabetes mellitus without complications SNOMED: 47247392 (11) Morbid obesity ICD Codes: E66.01 - Morbid (severe) obesity due to excess calories SNOMED: 159136028, 74645908194623 (12) Fatty liver ICD Codes: K76.0 - Fatty (change of) liver, not elsewhere classified SNOMED: 611811879 (13) Abdominal pain ICD Codes: R10.9 - Unspecified abdominal pain SNOMED: 64914405 Qualifiers: Qualified Codes: R10.84 - Generalized abdominal pain (14) Hypokalemia ICD Codes: E87.6 - Hypokalemia Discharge Medications New Medications: Amoxicillin/Potassium Clav 875-125* (Augmentin 875-125 Tablet*) 1 Each Tablet 1 TAB ORAL TWICE A DAY for 5 Days, #10 TAB [Vanco pharmacy to dose] () 1 EA MISC 1 EA MISC DAILYPRN PRN for 5 Days Continued Medications: Acetaminophen* (Tylenol Extra Strength*) 500 Mg Tablet 500 MG ORAL Q12HR PRN for Mild Pain/Temp > 100.5, TAB 0 Refills (This prescription has been renewed) Albuterol Sulfate* (Albuterol Sulfate Hhn*) 2.5 Mg/3 Ml Vial.neb 3 ML INH Q4H PRN for Shortness of Breath, EA (This prescription has been renewed ) Allopurinol* (Allopurinol*) 100 Mg Tablet 300 MG NG DAILY for 90 Days, TAB Aspirin* (Aspirin*) 81 Mg Tab.chew 81 MG GT DAILY for 90 Days, TAB Atorvastatin Calcium* (Lipitor*) 20 Mg Tablet 20 MG GT BEDTIME for 90 Days, TAB Azelastine Hcl (Azelastine Hcl) 6 Ml Drops 6 ML OP, ML (This prescription has been renewed) Capsaicin (Capsaicin) 42.5 Gm Cream..g. 42.5 GM TP, GM (This prescription has been renewed) Clotrimazole* (Lotrimin*) 15 Gm Cream..g. 1 APPLIC TOPIC THREE TIMES A DAY for 30 Days, GM Cyanocobalamin (Vitamin B-12) (Vitamin B12) 2,500 Mcg Tablet 2500 MCG PO, TAB (This prescription has been renewed) Digoxin* (Lanoxin*) 250 Mcg Tablet 0.25 MG ORAL DAILY for 30 Days, TAB Diphenoxylate Hcl/Atropine (Lomotil Tablet) 1 Each Tablet 2 TAB ORAL PRN for Diarrhea, #30 TAB 0 Refills (This prescription has been renewed) Docusate Sodium* (Docusil*) 100 Mg Capsule 100 MG ORAL TWICE A DAY, CAP (This prescription has been renewed) Ferrous Sulfate (Feosol) 325 Mg Tablet 325 MG ORAL THREE TIMES A DAY for 30 Days, TAB Fluticasone Propionate (Flonase Allergy Relief) 9.9 Ml [place].susp 9.9 ML NS (This prescription has been renewed) Furosemide* (Lasix*) 40 Mg Tablet 40 MG ORAL DAILY for 30 Days, #30 TAB Gabapentin* (Gabapentin*) 600 Mg Tablet 600 MG ORAL QHS, TAB (This prescription has been renewed) Glipizide (Glipizide Xl) 10 Mg Tab.er.24 10 MG ORAL DAILY, #30 TAB 0 Refills (This prescription has been renewed) Guaifenesin (Mucinex) 600 Mg Tab.er.12h 1200 MG ORAL TWICE A DAY for 14 Days, TAB Guaifenesin* (Guaifenesin) 100 Mg/5 Ml Liquid 200 MG ORAL Q4H PRN for 30 Days, ML Guar Gum (Nutrisource Fiber) 1 Each Packet 1 EACH PO, PACKET (This prescription has been renewed) Insulin Glargine (Lantus) 100 Unit/1 Ml Insuln.pen 21 SUBQ BID, #1 EA 0 Refills (This prescription has been renewed) Insulin Regular, Human (Humulin R) 100 Unit/1 Ml Vial 0 SUBQ, VIAL (This prescription has been renewed) Ipratropium/Albuterol Sulfate (DuoNeb 0.5-3(2.5)mg/3ml) 3 Ml Ampul.neb 3 ML HHN Q6HR for 14 Days, EA Ipratropium/Albuterol Sulfate (DuoNeb 0.5-3(2.5)mg/3ml) 3 Ml Ampul.neb 3 ML HHN Q4HR PRN for 30 Days, #30 EA 3 Refills SOB, wheezing Lactobacillus Acidophilus (Acidophilus) 1 Each Capsule 1 EACH PO BID, CAP (This prescription has been renewed) Loratadine (Loratadine) 10 Mg Capsule 10 MG PO, CAP (This prescription has been renewed) Metoprolol Succinate* (Metoprolol Succinate*) 25 Mg Tab.er.24h 25 MG ORAL DAILY for 30 Days, #30 TAB 3 Refills Pantoprazole* (Protonix*) 40 Mg Tablet.dr 40 MG ORAL DAILY, TAB (This prescription has been renewed) Prochlorperazine (Compazine*) 10 Mg Tablet 10 MG ORAL Q8HR PRN for Nausea & Vomiting, TAB (This prescription has been renewed) Discontinued Medications: [[facility] pharmacy to dose] () 1 EA MISC 1 EA MISC DAILY PRN for 6 Days, #6 Discharge Condition Upon Discharge: stable Discharge Disposition Patient was discharged to SNF/Subacute Facility(03) Cassie Bolivar M.D. Dec 02, 2017 17:12
[2017-12-02] MEDS ORDERED: PEPTO-BISM262 MG/15 ORAL (17:57)
[2017-12-02] MEDS ORDERED: VANCOMYCIN1 GM/2502 IVPB (17:57)
[2017-12-02] MEDS ORDERED: SIMETHICONE80 MG ORAL (17:57)
[2017-12-02] MEDS ORDERED: Simethicone 80mg tab ORAL PRN ×2 (18:00)
[2017-12-02] MEDS ORDERED: Bismuth Subsalicylate 30ml ORAL PRN (18:00)
--- NOTE | 2017-12-02 19:31 | Infectious Diseases Prog Note ---
Assessment/Plan Assessment/Plan ASSESSMENT AND PLAN: 1. mrsa pna/aspiration pna, coag neg staph blood cultures likely contaminant, sepsis, urine culture negative, fevers - change abx to vancomycin plus augmentin x 5 days to complete 10 day abx treatment course - clinically improved, extubated, chest x-ray improved and now nad - f/u labs - mark care 2. Respiratory failure, on vent, no pressors 3. Vargas. 4. The patient has history of hypertension. 5. Diabetes. 6. Hyperlipidemia. 7. Blood sugar and blood pressure treatment per primary. 8. History of asthma. 9. History of myocardial infarction and coronary artery disease. 10. History of heart failure/congestive heart failure. 11. History of gout. 12. History of sepsis and pneumonia. 13. History of muscle weakness. 14. Gastroesophageal reflux disease. 15. Past orders were noted. 16. Allergies are negative. 17. Family History is noncontributory. 18. Social history is negative. 19. MAR was noted. 20. Case discussed with RN. 21. Continue treatment per primary and consultants. 22. Case discussed with Dr. Matthews. 23. Case discussed with RN in the ICU. 24. Orders were noted and entered. 25. Notes and records were noted. 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 Subjective Constitutional: Denies: fever HEENT: Denies: congestion Respiratory: Denies: shortness of breath Cardiovascular: Denies: chest pain Gastrointestinal/Abdominal: Denies: nausea, vomiting, diarrhea Genitourinary: Reports: other - no vargas Neurologic: Denies: headache Psychiatric: Denies: depression Skin: Denies: rash Hematologic: Denies: bleeding Musculoskeletal: Denies: pain Allergies: Coded Allergies: ASPARTAME (Verified Allergy, Unknown, 11/30/17) Headache Objective Vital Signs Last 24 Hour Vital Signs Date Time Temp Pulse Resp B/P (MAP) Pulse Ox O2 Delivery O2 Flow Rate FiO2 12/02/17 17:15 72 18 99 Nasal Cannula 3.0 32 12/02/17 17:03 72 18 99 Nasal Cannula 3.0 32 12/02/17 16:00 98.0 74 21 108/66 95 Nasal Cannula 2.0 98.0 12/02/17 13:12 74 20 95 Nasal Cannula 3.0 32 12/02/17 12:57 76 18 97 Nasal Cannula 3.0 32 12/02/17 12:00 97.9 78 20 123/69 97 Nasal Cannula 2.0 97.9 12/02/17 11:24 86 12/02/17 09:20 81 20 94 Nasal Cannula 3.0 32 12/02/17 09:18 Nasal Cannula 3.0 32 12/02/17 09:17 92 Room Air 21 12/02/17 09:16 83 18 Room Air 21 12/02/17 09:10 83 18 92 Room Air 21 12/02/17 08:51 91 12/02/17 08:00 98.2 86 20 128/68 97 Nasal Cannula 2.0 98.2 12/02/17 08:00 91 12/02/17 07:37 97.7 12/02/17 04:00 97.7 88 20 124/59 95 Nasal Cannula 2.0 97.7 12/02/17 04:00 81 12/02/17 02:05 97.9 12/02/17 01:30 91 18 99 Nasal Cannula 3.0 12/02/17 01:15 82 18 97 Nasal Cannula 3.0 12/02/17 00:00 71 12/02/17 00:00 97.9 72 20 130/79 96 Bi-pap 35 97.9 12/01/17 20:00 98.2 63 20 113/56 97 Nasal Cannula 2.0 98.2 12/01/17 20:00 70 12/01/17 19:51 82 18 100 Nasal Cannula 3.0 12/01/17 19:31 88 18 97 Nasal Cannula 3.0 12/01/17 19:31 Nasal Cannula 3.0 32 12/01/17 19:30 97 Nasal Cannula 3.0 32 12/01/17 19:30 88 20 Nasal Cannula 3.0 32 Height (Feet): 5 Height (Inches): 4.00 Weight (Pounds): 424 General Appearance: no acute distress HEENT: normocephalic, atraumatic, anicteric, mucous membranes moist Respiratory/Chest: lungs clear, normal breath sounds, no accessory muscle use Cardiovascular: normal rate, regular rhythm, no gallop/murmur Abdomen: normal bowel sounds, soft, non tender, no organomegaly Genitourinary: other - no vargas Extremities: no cyanosis Skin: no rash, no ulcers Neurologic/Psychiatric: alert, oriented x 3, responsive Lymphatic: no neck adenopathy Musculoskeletal: no effusion Objective Chest x-ray - 11/28 - Technique: XRAY Chest 1v Comparison: 11/26/2017 Findings: Nasogastric tube is within the stomach. Endotracheal tube tip is at the level the clavicles. Cardiomediastinal silhouette is stable. Pulmonary vascular congestion is again noted. No new infiltrates are identified. Osseous structures are stable. Impression: Nasogastric tube within the stomach. Otherwise grossly stable chest. 11/30 - chest x-ray - Comparison: none Findings: The heart is enlarged. Lungs and pleural spaces are clear. Interim removal of endotracheal tube. No other significant change Impression: Interim extubation No acute process Cardiomegaly 12/01 - chest x-ray - nad (report noted) Microbiology Date/Time Source Procedure Growth Status 11/28/17 18:10 Blood Blood Culture - Preliminary NO GROWTH AFTER 72 HOURS Resulted 11/27/17 12:10 Sputum Induced Gram Stain - Final Complete 11/27/17 12:10 Sputum Culture - Final Staphylococcus Aureus - Mrsa Complete 11/27/17 12:30 Indwelling Cath Urine Culture - Final NO GROWTH AFTER 48 HOURS Complete 11/26/17 12:10 Rectal Mucosa VRE Culture - Final Enterococcus Faecalis - Vre Complete Laboratory Tests Test 12/02/17 03:45 White Blood Count 9.4 K/UL (4.8-10.8) Red Blood Count 4.23 M/UL (4.20-5.40) Hemoglobin 12.5 G/DL (12.0-16.0) Hematocrit 40.8 % (37.0-47.0) Mean Corpuscular Volume 96 FL (80-99) Mean Corpuscular Hemoglobin 29.5 PG (27.0-31.0) Mean Corpuscular Hemoglobin Concent 30.6 G/DL (32.0-36.0) L Red Cell Distribution Width 15.5 % (11.6-14.8) H Platelet Count 221 K/UL (150-450) Mean Platelet Volume 7.0 FL (6.5-10.1) Neutrophils (%) (Auto) 57.6 % (45.0-75.0) Lymphocytes (%) (Auto) 27.8 % (20.0-45.0) Monocytes (%) (Auto) 10.3 % (1.0-10.0) H Eosinophils (%) (Auto) 3.4 % (0.0-3.0) H Basophils (%) (Auto) 0.9 % (0.0-2.0) Sodium Level 137 MMOL/L (136-145) Potassium Level 3.6 MMOL/L (3.5-5.1) Chloride Level 100 MMOL/L (98-107) Carbon Dioxide Level 38 MMOL/L (21-32) H Anion Gap -1 mmol/L (5-15) L Blood Urea Nitrogen 8 mg/dL (7-18) Creatinine 0.9 MG/DL (0.55-1.30) Estimat Glomerular Filtration Rate > 60 mL/min (>60) Glucose Level 192 MG/DL (74-106) H Calcium Level 8.9 MG/DL (8.5-10.1) Phosphorus Level 3.1 MG/DL (2.5-4.9) Magnesium Level 1.6 MG/DL (1.8-2.4) L Total Bilirubin 0.3 MG/DL (0.2-1.0) Aspartate Amino Transf (AST/SGOT) 32 U/L (15-37) Alanine Aminotransferase (ALT/SGPT) 42 U/L (12-78) Alkaline Phosphatase 77 U/L (46-116) Total Protein 7.9 G/DL (6.4-8.2) Albumin 2.6 G/DL (3.4-5.0) L Globulin 5.3 g/dL Albumin/Globulin Ratio 0.5 (1.0-2.7) L Current Medications Medications (Trade) Dose Ordered Sig/Felipe Route PRN Reason Start Time Stop Time Status Last Admin Dose Admin Acetaminophen (Tylenol) 650 mg Q4H PRN ORAL T>100.5 11/30/17 19:30 12/26/17 15:29 12/02/17 06:38 Acetylcysteine (Mucomyst) 200 mg Q6HRT HHN 12/01/17 19:00 12/31/17 18:59 12/02/17 17:00 Albuterol/ Ipratropium (Albuterol/ Ipratropium) 3 ml Q4H PRN HHN Shortness of Breath 12/01/17 17:45 12/06/17 17:44 Albuterol/ Ipratropium (Albuterol/ Ipratropium) 3 ml Q6HRT HHN 12/01/17 19:00 12/06/17 18:59 12/02/17 17:00 Allopurinol (Allopurinol) 300 mg DAILY NG 12/01/17 09:00 12/27/17 08:59 12/02/17 08:52 Aspirin (ASA) 81 mg DAILY@0800 GT 12/01/17 08:00 12/28/17 08:59 12/02/17 08:52 Atorvastatin Calcium (Lipitor) 20 mg BEDTIME GT 11/30/17 21:00 12/28/17 20:59 12/01/17 20:32 Bismuth Subsalicylate (Pepto-Bismol) 30 ml Q6H PRN ORAL Abdominal cramps 12/02/17 18:00 01/01/18 17:59 12/02/17 18:24 Dextrose (Dextrose 50%) 25 ml STAT PRN IV Hypoglycemia 11/30/17 19:34 12/30/17 19:33 Dextrose (Dextrose 50%) 50 ml STAT PRN IV Hypoglycemia 11/30/17 19:34 12/30/17 19:33 Digoxin (Lanoxin) 0.25 mg DAILY ORAL 12/01/17 09:00 12/27/17 08:59 12/02/17 08:51 Guaifenesin (Mucinex ER) 600 mg TWICE A DAY ORAL 12/01/17 18:00 12/31/17 17:59 12/02/17 17:46 Guaifenesin/ Dextromethorphan (Robitussin DM Syrup) 10 ml Q4H PRN ORAL For Cough 11/30/17 19:38 12/30/17 19:37 12/02/17 03:52 Heparin Sodium (Porcine) (Heparin 5000 units/ml) 5,000 units EVERY 12 HOURS SUBQ 11/30/17 21:00 12/26/17 20:59 12/02/17 08:53 Insulin Aspart (NovoLOG) BEFORE MEALS AND HS SUBQ 11/30/17 21:00 12/26/17 20:59 12/02/17 17:43 Lorazepam (Ativan 2mg/ml 1ml) 2 mg Q2H PRN IV agitation 11/30/17 19:30 12/03/17 15:29 Morphine Sulfate (Morphine Sulfate) 4 mg Q4H PRN IVP Severe Pain (Pain Scale 7-10) 11/30/17 19:30 12/03/17 15:29 Nitroglycerin (Ntg) 0.4 mg Q5M PRN SL Prn Chest Pain 11/30/17 19:05 12/26/17 15:29 Ondansetron HCl (Zofran) 4 mg Q6H PRN IVP Nausea & Vomiting 11/30/17 19:40 12/30/17 19:39 12/02/17 06:36 Pantoprazole (Protonix) 40 mg EVERY 12 HOURS IVP 11/30/17 21:00 12/27/17 20:59 12/02/17 08:51 Piperacillin Sod/ Tazobactam Sod 4.5 gm/Dextrose 110 ml @ 27.5 mls/hr Q8HR@0400,1200,2000 IVPB 11/30/17 20:00 12/03/17 23:59 12/02/17 14:00 Simethicone (Mylicon) 80 mg Q6H PRN ORAL Gas pain 12/02/17 18:00 01/01/18 17:59 Vancomycin HCl (Vanco rx to dose) 1 ea DAILYPRN PRN MISC Per rx protocol 11/30/17 19:41 12/30/17 19:40 Vancomycin HCl/ Dextrose 250 ml @ 166.667 mls/hr Q12HR IVPB 11/30/17 21:00 12/05/17 23:59 12/02/17 08:54 JUNI ABDUL Dec 02, 2017 19:31
[2017-12-02] MEDS ORDERED: Augmentin 875mg Tab ORAL SCH (21:00)
== END 2017-12-02 20:40 | DRG 871 ==
LOC: EDBD 10:52 → EMR 11:44 → ICU 12:30 → EDBEDREQ 14:36 → 2W 11-30 19:18
PROC: 0BH17EZ Insertion of Endotracheal Airway into Trachea, Via Natural or Artificial Opening (ICD-10-PCS; principal; 2017-11-26)
PROC: 5A1945Z Respiratory Ventilation, 24-96 Consecutive Hours (ICD-10-PCS; principal; 2017-11-26)
DX: A41.9 Sepsis, unspecified organism (principal); J15.212 Pneumonia due to Methicillin resistant Staphylococcus aureus; J96.02 Acute respiratory failure with hypercapnia; G92 Toxic encephalopathy; J96.01 Acute respiratory failure with hypoxia; R65.21 Severe sepsis with septic shock; J69.0 Pneumonitis due to inhalation of food and vomit; N17.9 Acute kidney failure, unspecified; E66.2 Morbid (severe) obesity with alveolar hypoventilation; Z68.45 Body mass index [BMI] 70 or greater, adult; J44.0 Chronic obstructive pulmonary disease with (acute) lower respiratory infection; J44.1 Chronic obstructive pulmonary disease with (acute) exacerbation; I50.32 Chronic diastolic (congestive) heart failure; E11.9 Type 2 diabetes mellitus without complications; E66.01 Morbid (severe) obesity due to excess calories; E87.6 Hypokalemia; E87.5 Hyperkalemia; I11.0 Hypertensive heart disease with heart failure; R10.84 Generalized abdominal pain; I25.2 Old myocardial infarction; I25.10 Atherosclerotic heart disease of native coronary artery without angina pectoris; K76.0 Fatty (change of) liver, not elsewhere classified; N93.9 Abnormal uterine and vaginal bleeding, unspecified; E83.42 Hypomagnesemia; R31.9 Hematuria, unspecified
CPT/HCPCS: 36415; 36600; 71045; 74018; 74230; 80053; 80076; 80162; 80202; 81003; 82550; 82803; 82962; 83605; 83615; 83735; 83880; 84100; 84484; 85025; 85610; 85730; 87040; 87070; 87081; 87086; 87181; 87205; 93005; 93306; 93880; 94002; 94003; 94640; 94660; 94664; 94760; 99291; J1815; J2250; J2405; J7620

== ENCOUNTER 2017-12-04 09:02 | Inpatient (IN) | payer MEDICARE, MEDICAID ==
[2017-12-04] VITALS (12 sets, daily range): BP systolic 106–165; BP diastolic 44–80
[~2017-12-04] VITALS: Ht 172.7 cm; Wt 128.4 kg
[~2017-12-04 09:02] MED LIST changes: +AUGMENTIN 875-1 EAC1 ORAL; +AZELASTINE HCL6 ML NASAL; -AZELASTINE HCL6 ML OP; +PEPTO-BISM262 MG/15 ORAL; +SIMETHICONE80 MG ORAL; +VANCOMYCIN1 GM/2502 IVPB
[2017-12-04] MEDS ORDERED: ALLOPURINOL100 M1 ORAL (09:14)
--- NOTE | 2017-12-04 09:25 | Emergency Room Report ---
History of Present Illness General Chief Complaint: Altered Level of Consciousness Source: Patient, Medical Record Present Illness HPI 57-year-old female presents ED for evaluation. Patient brought in by EMS from shelter. Patient altered since this morning. Normally awake alert oriented. Per EMS O2 sat low. Patient is morbidly obese. History of hypoventilation. History of recent intubation. Was discharged from here a few days ago. Was intubated during admission. At this time patient is unable to provide any additional history at this time. No reported fevers or chills. No other aggravating relieving factors. No other associated symptoms Allergies: Coded Allergies: ASPARTAME (Verified Allergy, Unknown, 11/30/17) Headache Patient History Past Medical History: DM, HTN, asthma, COPD, other - encephalopathy Past Surgical History: none Pertinent Family History: none Social History: Denies: smoking, alcohol use, drug use Now: No Immunizations: UTD Reviewed Nursing Documentation: PMH: Agreed; PSxH: Agreed Nursing Documentation-PMH Past Medical History: No History, Except For Hx Cardiac Problems: Yes - NSTEMI, Anemia, HF Hx Hypertension: Yes Hx Asthma: Yes - Resp Failure Hx COPD: Yes Hx Diabetes: Yes - type 2 Hx Cancer: No Hx Gastrointestinal Problems: Yes Hx Dialysis: Yes Hx Neurological Problems: No - Weakness, Gout Hx Encephalitis: Yes - Metabolic encephalopathy Hx Dizziness: Yes Review of Systems All Other Systems: limited Physical Exam Vital Signs Date Time Temp Pulse Resp B/P (MAP) Pulse Ox O2 Delivery O2 Flow Rate FiO2 12/04/17 08:55 97.7 84 20 146/75 97 Non-Rebreather 15.0 97.7 Sp02 EP Interpretation: reviewed, normal General Appearance: lethargic, obese Head: normocephalic, atraumatic Eyes: bilateral eye normal inspection, bilateral eye PERRL ENT: hearing grossly normal, normal pharynx, no angioedema, normal voice Neck: full range of motion, supple/symm/no masses Respiratory: decreased breath sounds, speaking full sentences Cardiovascular #1: regular rate, rhythm, no edema Cardiovascular #2: 2+ carotid (R), 2+ carotid (L), 2+ radial (R), 2+ radial (L) , 2+ dorsalis pedis (R), 2+ dorsalis pedis (L) Gastrointestinal: normal bowel sounds, non tender, soft, non-distended, no guarding, no rebound Rectal: deferred Genitourinary: normal inspection, no CVA tenderness Musculoskeletal: back normal, gait/station normal, normal range of motion, non- tender Neurologic: other - lethargic Psychiatric: other - lethargic Reflexes: 3+ bicep (R), 3+ bicep (L), 3+ tricep (R), 3+ tricep (L), 3+ knee (R) , 3+ knee (L) Skin: normal color, no rash, warm/dry, well hydrated Lymphatic: no adenopathy Procedures Critical Care Time Critical Care Time i. I feel this is a highly complex case requiring extensive working including EKG/Rhythm strip, Xray/CT/US, Blood/urine lab work, repeat exams while in ED, and administration of strong opiates/narcotics for pain control, admission to hospital or close patient follow up. Total time: 30 min bedside evaluation and treatment excludes procedures (EKG). Reason for critical care: hypoxia, altered, hypercapnia Possible complications: hypotension, hypertension, WA, shock, arrhythmias, metabolic acidosis, end organ damage, respiratory failure. Interventions: Labs, EKG, chest x-ray, ABG. Intubation. Antibiotics. Course: Patient presenting with altered mental status. History of morbid obesity and hypoventilation syndrome. PCO2 greater than 150. Acidotic. Patient intubated using glidescope. Chest x-ray confirms intubation. Started on nebulizer treatments. Given antibiotics. Restraints applied. On sedation Consultations: nursing staff, EMS, family Performed by: Dr Lujan Tolerated well condition = critical j. because of unstable vital signs this patient had a condition that could potentially threaten life or limb. I feel this is a critical patient who required my full attention while patient was considered critical. Total Critical Care Time excluding procedures was greater than 35 minutes Intubation Intubation : Consent: Verbal Intubation Method: orotracheal Tube Size (cm): 7.5 Medications: Etomidate, Rocuronium, Versed Breath Sounds after Intubation: equal Intubation Complications: no complications Post Intubation Xray: Yes Attempts: One Patient Tolerated: Well Complications: None Medical Decision Making Diagnostic Impression: Primary Impression: Morbid obesity Additional Impressions: Acute respiratory failure with hypoxia and hypercapnia UTI (urinary tract infection) Qualified Codes: N39.0 - Urinary tract infection, site not specified ER Course Hospital Course 57-year-old female presents ED altered, hypoxic Differential diagnoses include: Pneumonia, CHF exacerbation, pneumothorax, fluid overload Clinical course Patient placed on stretcher. On telemetry monitor with hypoxia on room air. After initial history and physical, I ordered ABG. I ordered labs, IV fluids, EKG, chest x-ray, blood cultures, UA. ABG shows significant acidosis with pH 7.1, PCO2 greater than 150 Using glidescope I intubated the patient Labs -leukocytosis noted, hemoglobin/hematocrit stable, electrolytes ok, UA + bacteria CXR -confirms ET tube placement, cardiomegaly Patient on ventilator. Antibiotics given. IV fluids given. Case discussed with Dr. Hadley and he agreed to the patient to his service for further care and support I feel this is a highly complex case requiring extensive working including EKG/ Rhythm strip, Xray/CT/US, Blood/urine lab work, repeat exams while in ED, and administration of strong opiates/narcotics for pain control, admission to hospital or close patient follow up. Diagnosis - morbid obesity, acute respiratory failure with hypoxia, hypercapnia , UTI Patient admitted to ICU in critical condition Labs Test 12/04/17 09:05 12/04/17 09:20 Arterial Blood pH 7.105 (7.350-7.450) Arterial Blood Partial Pressure CO2 150.1 mmHg (35.0-45.0) Arterial Blood Partial Pressure O2 186.6 mmHg (75.0-100.0) Arterial Blood HCO3 46.1 mmol/L (22.0-26.0) Arterial Blood Oxygen Saturation 99.5 % (92.0-98.0) Arterial Blood Base Excess 11.0 Doroteo Test Positive White Blood Count 18.6 K/UL (4.8-10.8) Red Blood Count 4.51 M/UL (4.20-5.40) Hemoglobin 12.8 G/DL (12.0-16.0) Hematocrit 43.6 % (37.0-47.0) Mean Corpuscular Volume 97 FL (80-99) Mean Corpuscular Hemoglobin 28.4 PG (27.0-31.0) Mean Corpuscular Hemoglobin Concent 29.3 G/DL (32.0-36.0) Red Cell Distribution Width 16.2 % (11.6-14.8) Platelet Count 289 K/UL (150-450) Mean Platelet Volume 8.1 FL (6.5-10.1) Neutrophils (%) (Auto) % (45.0-75.0) Lymphocytes (%) (Auto) % (20.0-45.0) Monocytes (%) (Auto) % (1.0-10.0) Eosinophils (%) (Auto) % (0.0-3.0) Basophils (%) (Auto) % (0.0-2.0) Differential Total Cells Counted 100 Neutrophils % (Manual) 75 % (45-75) Lymphocytes % (Manual) 11 % (20-45) Monocytes % (Manual) 14 % (1-10) Eosinophils % (Manual) 0 % (0-3) Basophils % (Manual) 0 % (0-2) Band Neutrophils 0 % (0-8) Platelet Estimate Adequate Platelet Morphology Normal Hypochromasia 1+ Anisocytosis 1+ Urine Color Yellow Urine Appearance Slightly cloudy Urine pH 5 (4.5-8.0) Urine Specific [place] 1.020 (1.005-1.035) Urine Protein 3+ (NEGATIVE) Urine Glucose (UA) 2+ (NEGATIVE) Urine Ketones 1+ (NEGATIVE) Urine Occult Blood 1+ (NEGATIVE) Urine Nitrite Negative (NEGATIVE) Urine Bilirubin 2+ (NEGATIVE) Urine Ictotest Positive Urine Urobilinogen 8 MG/DL (0.0-1.0) Urine Leukocyte Esterase 1+ (NEGATIVE) Urine RBC 2-4 /HPF (0 - 2) Urine WBC 2-4 /HPF (0 - 2) Urine Squamous Epithelial Cells Few /LPF (NONE/OCC) Urine Amorphous Sediment Many /LPF (NONE) Urine Bacteria Few /HPF (NONE) Sodium Level 137 MMOL/L (136-145) Potassium Level 5.0 MMOL/L (3.5-5.1) Chloride Level 97 MMOL/L (98-107) Carbon Dioxide Level 41 MMOL/L (21-32) Anion Gap 0 mmol/L (5-15) Blood Urea Nitrogen 8 mg/dL (7-18) Creatinine 1.2 MG/DL (0.55-1.30) Estimat Glomerular Filtration Rate 55.8 mL/min (>60) Glucose Level 144 MG/DL (74-106) Lactic Acid Level 0.50 mmol/L (0.66-2.22) Calcium Level 9.5 MG/DL (8.5-10.1) Total Bilirubin 1.8 MG/DL (0.2-1.0) Direct Bilirubin 0.8 MG/DL (0.0-0.3) Aspartate Amino Transf (AST/SGOT) 293 U/L (15-37) Alanine Aminotransferase (ALT/SGPT) 220 U/L (12-78) Alkaline Phosphatase 196 U/L (46-116) Total Creatine Kinase 78 U/L (26-308) Creatine Kinase MB 0.6 NG/ML (0.0-3.6) Creatine Kinase MB Relative Index 0.7 Troponin I 0.000 ng/mL (0.000-0.056) Pro-B-Type Natriuretic Peptide 1358 pg/mL (0-125) Total Protein 8.4 G/DL (6.4-8.2) Albumin 2.4 G/DL (3.4-5.0) Globulin 6.0 g/dL Albumin/Globulin Ratio 0.4 (1.0-2.7) EKG Diagnostic Results Rate: normal Rhythm: NSR ST Segments: no acute changes ASA given to the pt in ED: No Rhythm Strip Diag. Results EP Interpretation: yes Rhythm: NSR, no PVC's, no ectopy Chest X-Ray Diagnostic Results Chest X-Ray Diagnostic Results : Chest X-Ray Ordered: Yes # of Views/Limited/Complete: 1 View Indication: Shortness of Breath EP Interpretation: Yes Interpretation: no consolidation, no effusion, no pneumothorax, other - cardiomegaly. intubated Impression: Other - Intubated Electronically Signed by: Electronically signed by Moreno Lujan MD Last Vital Signs Date Time Temp Pulse Resp B/P (MAP) Pulse Ox O2 Delivery O2 Flow Rate FiO2 12/04/17 08:55 97.7 84 20 146/75 97 Non-Rebreather 15.0 97.7 Status: improved Disposition: ADMITTED INPATIENT Condition: Critical Moreno Lujan MD Dec 04, 2017 09:25
[2017-12-04] MEDS ORDERED: FERROUS SULFAT325 MG ORAL (09:26)
[2017-12-04] MEDS ORDERED: FUROSEMIDE40 MG ORAL (09:29)
[2017-12-04] MEDS ORDERED: Midazolam 2mg/2ml Inj ONE (09:57)
[2017-12-04] MEDS ORDERED: Albuterol/Ipratropium 3ml neb HHN PRN (10:15)
[2017-12-04] MEDS ORDERED: Etomidate 40mg/20ml Inj IV ONE (10:15)
[2017-12-04] MEDS ORDERED: Midazolam for drip 50 MG in NS 90 ML IV ONE ×2 (10:15→13:15)
[2017-12-04] MEDS ORDERED: Nitroglycerin Subl 0.4mg tab SL PRN (10:15)
[2017-12-04] MEDS ORDERED: Midazolam 2mg/2ml Inj IVP ONE (10:15)
[2017-12-04] MEDS ORDERED: Zemuron 50mg/5ml Inj IV ONE (10:15)
[2017-12-04 10:18] LABS: HEMATOCRIT 43.6 % (37.0-47.0); HEMOGLOBIN 12.8 G/DL (12.0-16.0); MEAN CORPUSCULAR VOLUME 97 FL (80-99); PLATELET COUNT 289 K/UL (150-450); RED BLOOD COUNT 4.51 M/UL (4.20-5.40); RED CELL DISTRIBUTION WIDTH 16.2 % (11.6-14.8); WHITE BLOOD COUNT 18.6 K/UL (4.8-10.8)
[2017-12-04 10:19] LABS: APPEARANCE,URINE SLIGHTLY CLOUDY; BILIRUBIN, URINE 2+ (NEGATIVE); GLUCOSE, URINE (UA) 2+ (NEGATIVE); KETONES,URINE 1+ (NEGATIVE); LEUKOCYTE ESTERASE ,URINE 1+ (NEGATIVE); NITRITE,URINE NEGATIVE (NEGATIVE); PH,URINE 5 (4.5-8.0); PROTEIN,URINE 3+ (NEGATIVE); UROBILINOGEN,URINE 8 MG/DL (0.0-1.0)
[2017-12-04] MEDS: Albuterol ud Inhalation HHN SCH ×3 (10:21→11:01)
[2017-12-04] MEDS: Ipratropium 0.02% Inh Soln 2.5ml UD HHN SCH ×3 (10:21→11:01)
[2017-12-04 10:23] LABS: COLOR,URINE YELLOW
[2017-12-04 10:58] LABS: ALANINE AMINOTRANSFERASE 220 U/L (12-78); ALBUMIN 2.4 G/DL (3.4-5.0); ALBUMIN/GLOBULIN RATIO 0.4 (1.0-2.7); ALKALINE PHOSPHATASE 196 U/L (46-116); ANION GAP 0 mmol/L (5-15); ASPARTATE AMINO TRANSFERASE 293 U/L (15-37); BILIRUBIN,TOTAL 1.8 MG/DL (0.2-1.0); BLOOD UREA NITROGEN 8 mg/dL (7-18); CALCIUM 9.5 MG/DL (8.5-10.1); CHLORIDE 97 MMOL/L (98-107); CKMB 0.6 NG/ML (0.0-3.6); CREATINE KINASE 78 U/L (26-308); CREATININE 1.2 MG/DL (0.55-1.30); SODIUM 137 MMOL/L (136-145)
[2017-12-04 11:01] LABS: CARBON DIOXIDE 41 MMOL/L (21-32)
[2017-12-04 11:02] LABS: BILIRUBIN,DIRECT 0.8 MG/DL (0.0-0.3)
[2017-12-04] MEDS: NovoLOG Insulin Flexpen SUBQ SCH ×3 (11:30→21:00)
--- NOTE | 2017-12-04 12:11 | Diagnostic Imaging Report ---
Indication: Postintubation Technique: One view of the chest Comparison: One half hour earlier Findings: Interim endotracheal intubation, endotracheal tube in good position, tip projecting approximately 4 cm above the lucía. The heart is enlarged. Lungs and pleural spaces are clear. Impression: Satisfactory endotracheal intubation Other findings as noted
--- NOTE | 2017-12-04 14:51 | History and Physical ---
History of Present Illness General Date patient seen: Dec 04, 2017 Time patient seen: 14:51 Reason for Hospitalization: Altered Level of Consciousness Present Illness HPI 57y/o female with pmh of morbid obesity, HTN, asthma, DM2, GERD, likely obesity hypoventilation syndrome, admission in Aug 2017 for septic shock and acute respiratory failure requiring intubation who presents with ALOC. Pt recently admitted 11/26-12/02 also for ALOC requiring intubation after she failed BiPAP. Pt was treated for HCAP with IV antibiotics. She improved and was successfully extubated. Once stabilized she was discharged to SNF. Per report, pt noted to be altered at SNF today, more lethargic, poorly responsive except to painful stimuli. In ER, pt placed on BiPAP. ABG showed pH 7.1 and PCO2 150. She was emergently intubated. Pt admitted to ICU. She is currently intubated and sedated. Allergies: Coded Allergies: ASPARTAME (Verified Allergy, Unknown, 11/30/17) Headache Medication History Scheduled Allopurinol* (Allopurinol*), 300 MG NG DAILY Allopurinol* (Allopurinol*), 100 MG ORAL DAILY, (Reported) Amoxicillin/Potassium Clav 875-125* (Augmentin 875-125 Tablet*), 1 TAB ORAL TWICE A DAY Aspirin* (Aspirin*), 81 MG GT DAILY Atorvastatin Calcium* (Lipitor*), 20 MG GT BEDTIME Clotrimazole* (Lotrimin*), 1 APPLIC TOPIC THREE TIMES A DAY Cyanocobalamin (Vitamin B-12) (Vitamin B12), 2,500 MCG PO DAILY, (Reported) Digoxin* (Lanoxin*), 0.25 MG ORAL DAILY Docusate Sodium* (Docusil*), 100 MG ORAL TWICE A DAY, (Reported) Ferrous Sulfate (Feosol), 325 MG ORAL THREE TIMES A DAY Ferrous Sulfate* (Ferrous Sulfate*), 325 MG ORAL TWICE A DAY, (Reported) Fluticasone Propionate (Flonase Allergy Relief), 9.9 ML NS BID, (Reported) Furosemide* (Lasix*), 40 MG ORAL DAILY Furosemide* (Lasix*), 40 MG ORAL DAILY, (Reported) Gabapentin* (Gabapentin*), 600 MG ORAL QHS, (Reported) Glipizide (Glipizide Xl), 10 MG ORAL DAILY, (Reported) Guaifenesin (Mucinex), 1,200 MG ORAL TWICE A DAY Insulin Glargine (Lantus), 21 SUBQ BID, (Reported) Ipratropium/Albuterol Sulfate (DuoNeb 0.5-3(2.5)mg/3ml), 3 ML HHN Q6HR Lactobacillus Acidophilus (Acidophilus), 1 EACH PO BID, (Reported) Metoprolol Succinate* (Metoprolol Succinate*), 25 MG ORAL DAILY Pantoprazole* (Protonix*), 40 MG ORAL DAILY, (Reported) Vancomycin Hcl/D5w (Vancomycin-D5w 1 G/250 Ml), 250 MG IVPB Q12HR Scheduled PRN Acetaminophen* (Tylenol Extra Strength*), 500 MG ORAL Q12HR PRN for Mild Pain/ Temp > 100.5, (Reported) Albuterol Sulfate* (Albuterol Sulfate Hhn*), 3 ML INH Q4H PRN for Shortness of Breath, (Reported) Azelastine Hcl (Azelastine Hcl), 6 ML NASAL EVERY 12 HOURS PRN for ALLERGIC RHINITIS, (Reported) Bismuth Subsalicylate (Pepto-Bismol), 30 ML ORAL Q6H PRN Diphenoxylate Hcl/Atropine (Lomotil Tablet), 2 TAB ORAL for Diarrhea, (Reported) Guaifenesin* (Guaifenesin), 200 MG ORAL Q4H PRN Ipratropium/Albuterol Sulfate (DuoNeb 0.5-3(2.5)mg/3ml), 3 ML HHN Q4HR PRN Prochlorperazine (Compazine*), 10 MG ORAL Q8HR PRN for Nausea & Vomiting, ( Reported) Simethicone* (Simethicone*), 80 MG ORAL Q6H PRN [Vanco pharmacy to dose], 1 EA MISC DAILYPRN PRN Miscellaneous Medications Capsaicin (Capsaicin), 42.5 GM TP, (Reported) Guar Gum (Nutrisource Fiber), 1 EACH PO, (Reported) Insulin Regular, Human (Humulin R), 0 SUBQ, (Reported) Loratadine (Loratadine), 10 MG PO, (Reported) Discontinued Medications [Vanco pharmacy to dose], 1 EA MISC DAILY PRN Discontinued Reason: Medication dose changed Patient History History Provided By: Patient, Medical Record, PMD Healthcare decision maker Resuscitation status Advanced Directive on File Past Medical/Surgical History Past Medical/Surgical History: (1) Morbid obesity (2) Chronic diastolic (congestive) heart failure (3) Likely obesity hypoventilation syndrome (4) H/O supraventricular tachycardia (5) Hepatitis B core antibody positive (6) GERD (gastroesophageal reflux disease) (7) Asthma (8) Fatty liver (9) HTN (hypertension) (10) DM2 (diabetes mellitus, type 2) Family History Family History: Patient reports no known family medical history. Social History Social History: (1) lives at [facility] Review of Systems ROS Narrative Unable to obtain as pt is intubated, sedated Physical Exam Physical Exam Narrative General: intubated, sedated, obese Head: normocephalic, without obvious abnormality, atraumatic Eyes: conjunctivae/corneas clear. PERRL, EOM's intact Throat: lips, mucosa, and tongue normal. MMM Neck: supple, symmetrical, trachea midline Lungs:+ rhonchi b/l Heart: regular rate and rhythm, S1, S2 normal, no murmur, click, rub or gallop Abdomen: soft, non-tender, non-distended, bowel sounds normal; obese abd Extremities: extremities normal, atraumatic, no cyanosis, trace BLE edema Pulses: 2+ and symmetric Skin: skin color, texture, turgor normal; no rashes or lesions Neurologic: sedated Last 24 Hour Vital Signs Date Time Temp Pulse Resp B/P (MAP) Pulse Ox O2 Delivery O2 Flow Rate FiO2 12/04/17 13:28 97.7 67 18 134/54 100 Mechanical Ventilator 15.0 40 97.7 12/04/17 13:22 71 18 40 12/04/17 12:16 18 12/04/17 11:53 97.7 70 17 159/80 100 Mechanical Ventilator 15.0 40 97.7 12/04/17 11:16 29 12/04/17 11:01 65 18 100 Mechanical Ventilator 40 12/04/17 10:55 65 18 100 Mechanical Ventilator 12/04/17 10:54 97.7 64 29 165/75 97 Mechanical Ventilator 15.0 40 97.7 12/04/17 10:40 78 18 100 Mechanical Ventilator 40 4/27/18 10:36 78 18 100 Mechanical Ventilator 12/04/17 10:33 74 18 40 12/04/17 10:21 74 18 100 Mechanical Ventilator 40 12/04/17 10:15 74 18 Mechanical Ventilator 40 12/04/17 10:13 97.7 74 24 125/54 100 Mechanical Ventilator 15.0 97.7 12/04/17 08:55 97.7 84 20 146/75 97 Non-Rebreather 15.0 97.7 Laboratory Tests Test 12/04/17 09:05 12/04/17 09:20 Arterial Blood pH 7.105 (7.350-7.450) Arterial Blood Partial Pressure CO2 150.1 mmHg (35.0-45.0) *H Arterial Blood Partial Pressure O2 186.6 mmHg (75.0-100.0) H Arterial Blood HCO3 46.1 mmol/L (22.0-26.0) H Arterial Blood Oxygen Saturation 99.5 % (92.0-98.0) H Arterial Blood Base Excess 11.0 Doroteo Test Positive White Blood Count 18.6 K/UL (4.8-10.8) H Red Blood Count 4.51 M/UL (4.20-5.40) Hemoglobin 12.8 G/DL (12.0-16.0) Hematocrit 43.6 % (37.0-47.0) Mean Corpuscular Volume 97 FL (80-99) Mean Corpuscular Hemoglobin 28.4 PG (27.0-31.0) Mean Corpuscular Hemoglobin Concent 29.3 G/DL (32.0-36.0) L Red Cell Distribution Width 16.2 % (11.6-14.8) H Platelet Count 289 K/UL (150-450) Mean Platelet Volume 8.1 FL (6.5-10.1) Neutrophils (%) (Auto) % (45.0-75.0) Lymphocytes (%) (Auto) % (20.0-45.0) Monocytes (%) (Auto) % (1.0-10.0) Eosinophils (%) (Auto) % (0.0-3.0) Basophils (%) (Auto) % (0.0-2.0) Differential Total Cells Counted 100 Neutrophils % (Manual) 75 % (45-75) Lymphocytes % (Manual) 11 % (20-45) L Monocytes % (Manual) 14 % (1-10) H Eosinophils % (Manual) 0 % (0-3) Basophils % (Manual) 0 % (0-2) Band Neutrophils 0 % (0-8) Platelet Estimate Adequate Platelet Morphology Normal Hypochromasia 1+ Anisocytosis 1+ Urine Color Yellow Urine Appearance Slightly cloudy Urine pH 5 (4.5-8.0) Urine Specific [place] 1.020 (1.005-1.035) Urine Protein 3+ (NEGATIVE) H Urine Glucose (UA) 2+ (NEGATIVE) H Urine Ketones 1+ (NEGATIVE) H Urine Occult Blood 1+ (NEGATIVE) H Urine Nitrite Negative (NEGATIVE) Urine Bilirubin 2+ (NEGATIVE) H Urine Ictotest Positive Urine Urobilinogen 8 MG/DL (0.0-1.0) H Urine Leukocyte Esterase 1+ (NEGATIVE) H Urine RBC 2-4 /HPF (0 - 2) H Urine WBC 2-4 /HPF (0 - 2) Urine Squamous Epithelial Cells Few /LPF (NONE/OCC) Urine Amorphous Sediment Many /LPF (NONE) H Urine Bacteria Few /HPF (NONE) Sodium Level 137 MMOL/L (136-145) Potassium Level 5.0 MMOL/L (3.5-5.1) Chloride Level 97 MMOL/L (98-107) L Carbon Dioxide Level 41 MMOL/L (21-32) *H Anion Gap 0 mmol/L (5-15) L Blood Urea Nitrogen 8 mg/dL (7-18) Creatinine 1.2 MG/DL (0.55-1.30) Estimat Glomerular Filtration Rate 55.8 mL/min (>60) Glucose Level 144 MG/DL (74-106) H Lactic Acid Level 0.50 mmol/L (0.66-2.22) L Calcium Level 9.5 MG/DL (8.5-10.1) Total Bilirubin 1.8 MG/DL (0.2-1.0) H Direct Bilirubin 0.8 MG/DL (0.0-0.3) H Aspartate Amino Transf (AST/SGOT) 293 U/L (15-37) H Alanine Aminotransferase (ALT/SGPT) 220 U/L (12-78) H Alkaline Phosphatase 196 U/L (46-116) H Total Creatine Kinase 78 U/L (26-308) Creatine Kinase MB 0.6 NG/ML (0.0-3.6) Creatine Kinase MB Relative Index 0.7 Troponin I 0.000 ng/mL (0.000-0.056) Pro-B-Type Natriuretic Peptide 1358 pg/mL (0-125) H Total Protein 8.4 G/DL (6.4-8.2) H Albumin 2.4 G/DL (3.4-5.0) L Globulin 6.0 g/dL Albumin/Globulin Ratio 0.4 (1.0-2.7) L Height (Feet): 5 Height (Inches): 8.00 Weight (Pounds): 540 Medications Current Medications Medications (Trade) Dose Ordered Sig/Felipe Route PRN Reason Start Time Stop Time Status Last Admin Dose Admin Acetaminophen (Tylenol) 650 mg Q4H PRN ORAL Fever (temp>100.5F) 12/04/17 10:15 01/03/18 10:14 Albuterol/ Ipratropium (Albuterol/ Ipratropium) 3 ml Q4H PRN HHN Shortness of Breath 12/04/17 10:15 12/09/17 10:14 Allopurinol (Zyloprim) 100 mg DAILY ORAL 12/05/17 09:00 01/04/18 08:59 Allopurinol (Zyloprim) 100 mg ONCE ORAL 12/04/17 15:30 12/04/17 16:30 Dextrose (Dextrose 50%) 25 ml STAT PRN IV Hypoglycemia 12/04/17 10:15 01/03/18 10:14 Dextrose (Dextrose 50%) 50 ml STAT PRN IV Hypoglycemia 12/04/17 10:15 01/03/18 10:14 Digoxin (Lanoxin) 0.25 mg DAILY ORAL 12/05/17 09:00 01/04/18 08:59 Digoxin (Lanoxin) 0.25 mg ONCE ORAL 12/04/17 15:30 12/04/17 16:30 Heparin Sodium (Porcine) (Heparin 5000 units/ml) 5,000 units EVERY 12 HOURS SUBQ 12/04/17 21:00 01/03/18 20:59 Insulin Aspart (NovoLOG) BEFORE MEALS AND HS SUBQ 12/04/17 11:30 01/03/18 11:29 Lorazepam (Ativan 2mg/ml 1ml) 2 mg Q2H PRN IV agitation 12/04/17 10:15 12/11/17 10:14 Morphine Sulfate (Morphine Sulfate) 4 mg Q4H PRN IVP Severe Pain (Pain Scale 7-10) 12/04/17 10:15 12/11/17 10:14 Nitroglycerin (Ntg) 0.4 mg Q5M PRN SL Prn Chest Pain 12/04/17 10:15 01/03/18 10:14 Ondansetron HCl (Zofran) 4 mg Q6H PRN IVP Nausea & Vomiting 12/04/17 10:15 01/03/18 10:14 Piperacillin Sod/ Tazobactam Sod 3.375 gm/Dextrose 100 ml @ 25 mls/hr EVERY 8 HOURS IVPB 12/04/17 22:00 12/09/17 21:59 UNV Vancomycin HCl (Vanco rx to dose) 1 ea DAILY PRN MISC Per rx protocol 12/04/17 15:00 01/03/18 14:59 UNV Assessment/Plan Problem List: (1) Acute toxic metabolic encephalopathy (2) Acute respiratory failure with hypoxia and hypercapnia ICD Codes: J96.01 - Acute respiratory failure with hypoxia; J96.02 - Acute respiratory failure with hypercapnia SNOMED: 66062730, 95306592, 785997741 (3) Likely obesity hypoventilation syndrome (4) Severe sepsis ICD Codes: A41.9 - Sepsis, unspecified organism; R65.20 - Severe sepsis without septic shock SNOMED: 28595612 (5) Elevated liver enzymes ICD Codes: R74.8 - Abnormal levels of other serum enzymes SNOMED: 421229481 (6) Aspiration pnemonia vs HCAP (7) UTI (urinary tract infection) ICD Codes: N39.0 - Urinary tract infection, site not specified SNOMED: 58274730 Qualifiers: Qualified Codes: N39.0 - Urinary tract infection, site not specified (8) Morbid obesity ICD Codes: E66.01 - Morbid (severe) obesity due to excess calories SNOMED: 306297770, 49508120439998 (9) Chronic diastolic (congestive) heart failure ICD Codes: I50.32 - Chronic diastolic (congestive) heart failure SNOMED: 87998754, 301482033 (10) DM2 (diabetes mellitus, type 2) ICD Codes: E11.9 - Type 2 diabetes mellitus without complications SNOMED: 59524135 (11) Hypertension ICD Codes: I10 - Essential (primary) hypertension SNOMED: 80257610 (12) Fatty liver ICD Codes: K76.0 - Fatty (change of) liver, not elsewhere classified SNOMED: 668290759 (13) GERD (gastroesophageal reflux disease) ICD Codes: K21.9 - Gastro-esophageal reflux disease without esophagitis SNOMED: 446239609 (14) Asthma ICD Codes: J45.909 - Unspecified asthma, uncomplicated SNOMED: 869847989 (15) H/O supraventricular tachycardia ICD Codes: Z86.79 - Personal history of other diseases of the circulatory system SNOMED: 854352736491594 Status: stable, unchanged Assessment/Plan Admit to ICU Pulm/critical care consulted Cont on vent and wean as tolerated Daily SBTs, sedation holidays This is pt's 3rd intubation in less than 6 months. D/w pulm re likely plan for tracheostomy Currently not requiring pressors. Goal MAP 65 and above ID consulted Empiric vanco and zosyn for sepsis--source possible pneumonia vs UTI F/u cultures NPO for now mIVFs Strict I/O's Trend CBC, CMP Pain control, bowel regimen Supportive care PPI DVT Prophylaxis: SCD, HSQ Code Status: Full Hospital Classification Declaration: Based on this initial evaluation, and depending on the patient's clinical course, I anticipate that this patient will require hospitalization for 3-4 days for acute respiratory failure, sepsis and close respiratory/hemodynamic monitoring. Disposition: Once the patient is stable to leave the hospital, I anticipate the patient will likely be discharged to the following environment: back to SNF At the time of my involvement, the patient's condition was critical with high potential for and/or physiologic deterioration secondary to acute respiratory failure, severe sepsis as delineated in the note above. On the above date of service, I spent a total of 44 minutes in the ICU evaluating, managing, and providing critical care services to this patient, including time spent documenting these activities, counseling patient/family, and coordinating care. Critical care services performed include: Telemetry Review Hemodynamic measurement interpretation Laboratory data review and interpretation Ventilator setting review, management, and adjustment Discussion of care plans with patient, family, and/or surrogate decision makers Discussion of patient's care with primary medical team, surgical team, and/or consulting service Decision to obtain further radiologic evaluation, after consideration of risk/ benefit ratio Decision to perform invasive procedure, after consideration of risk/benefit ratio Review of most recent microbiology results with assessment and modification of antimicrobial coverage Discussion of patient's code status and further advancement towards the ultimate goals of care Plan outlined above discussed with patient/family, pulm/critical care, ID regarding mgmt and dispo. D/w pulm re likely plan for trach. D/w ID re broad- spectrum abx Time of note may not reflect time of encounter. Cassie Bolivar M.D. Dec 04, 2017 14:51
--- NOTE | 2017-12-04 15:02 | Diagnostic Imaging Report ---
Indication: Shortness of breath Technique: One view of the chest Comparison: 12/01/2017 Findings: Patient is rotated to the right. There is equivocal minimal interstitial congestion, new since previous study. Lungs and pleural spaces are otherwise clear. Heart is enlarged. Impression: Equivocal minimal interstitial congestion correlate with clinical findings Cardiomegaly
--- NOTE | 2017-12-04 15:14 | Infectious Diseases Prog Note ---
Assessment/Plan Assessment/Plan Patient known to me from recent admission, asked to evaluate patient for sepsis , leukocytosis, ams, possible pna, hx mrsa pna, ? aspiration pna. Patient intubated, seen in ER. ASSESSMENT AND PLAN: 1. sepsis, leukocytosis, mrsa pna, ? aspiration pna, vent, elevated co2, ams - continue vancomycin, cefepime and flagyl - check sputum culture, labs and chest x-ray, bc - continue vent support, icu care - d/w Dr. Matthews 2. Respiratory failure, on vent, no pressors - treatment per primary and pulmonary 3. Vargas. 4. The patient has history of hypertension. 5. Diabetes. 6. Hyperlipidemia. 7. Blood sugar and blood pressure treatment per primary. 8. History of asthma. 9. History of myocardial infarction and coronary artery disease. 10. History of heart failure/congestive heart failure. 11. History of gout. 12. History of sepsis and pneumonia. 13. History of muscle weakness. 14. Gastroesophageal reflux disease. 15. Past orders were noted. 16. Allergies are negative. 17. Family History is noncontributory. 18. Social history is negative. 19. MAR was noted. 20. Case discussed with RN. 21. Continue treatment per primary and consultants. 22. Case discussed with Dr. Matthews. 23. Case discussed with RN in the ICU. 24. Orders were noted and entered. 25. Notes and records were noted. 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 Subjective Constitutional: Reports: other - seen in ER, on vent, mildly responsive; Denies : fever HEENT: Reports: congestion Respiratory: Reports: shortness of breath Cardiovascular: Reports: other - no pressors Gastrointestinal/Abdominal: Denies: nausea, vomiting, diarrhea Neurologic: Reports: weakness Psychiatric: Reports: other - na Skin: Denies: rash Hematologic: Denies: bleeding Musculoskeletal: Reports: other - na Allergies: Coded Allergies: ASPARTAME (Verified Allergy, Unknown, 11/30/17) Headache Objective Vital Signs Last 24 Hour Vital Signs Date Time Temp Pulse Resp B/P (MAP) Pulse Ox O2 Delivery O2 Flow Rate FiO2 12/04/17 13:28 97.7 67 18 134/54 100 Mechanical Ventilator 15.0 40 97.7 12/04/17 13:22 71 18 40 12/04/17 12:16 18 4/27/18 11:53 97.7 70 17 159/80 100 Mechanical Ventilator 15.0 40 97.7 12/04/17 11:16 29 12/04/17 11:01 65 18 100 Mechanical Ventilator 40 12/04/17 10:55 65 18 100 Mechanical Ventilator 12/04/17 10:54 97.7 64 29 165/75 97 Mechanical Ventilator 15.0 40 97.7 12/04/17 10:40 78 18 100 Mechanical Ventilator 40 12/04/17 10:36 78 18 100 Mechanical Ventilator 12/04/17 10:33 74 18 40 12/04/17 10:21 74 18 100 Mechanical Ventilator 40 12/04/17 10:15 74 18 Mechanical Ventilator 40 12/04/17 10:13 97.7 74 24 125/54 100 Mechanical Ventilator 15.0 97.7 12/04/17 08:55 97.7 84 20 146/75 97 Non-Rebreather 15.0 97.7 Height (Feet): 5 Height (Inches): 8.00 Weight (Pounds): 540 General Appearance: other - intubated, on vent HEENT: normocephalic, atraumatic, anicteric, other - oral - inutbated Respiratory/Chest: crackles/rales, rhonchi - bilaterally Cardiovascular: normal rate, regular rhythm, no gallop/murmur Abdomen: normal bowel sounds, soft, non tender, no organomegaly Genitourinary: other - + vargas Extremities: no cyanosis Skin: no rash, no ulcers Neurologic/Psychiatric: responsive - mildly responsive, opens eyes , other - sedated, on vent, oral intubated, generalized weakness Lymphatic: no neck adenopathy Musculoskeletal: no effusion Objective Chest x-ray - Comparison: One half hour earlier Findings: Interim endotracheal intubation, endotracheal tube in good position, tip projecting approximately 4 cm above the lucía. The heart is enlarged. Lungs and pleural spaces are clear. Impression: Satisfactory endotracheal intubation Other findings as noted pending Laboratory Tests Test 12/04/17 09:05 12/04/17 09:20 Arterial Blood pH 7.105 (7.350-7.450) Arterial Blood Partial Pressure CO2 150.1 mmHg (35.0-45.0) *H Arterial Blood Partial Pressure O2 186.6 mmHg (75.0-100.0) H Arterial Blood HCO3 46.1 mmol/L (22.0-26.0) H Arterial Blood Oxygen Saturation 99.5 % (92.0-98.0) H Arterial Blood Base Excess 11.0 Doroteo Test Positive White Blood Count 18.6 K/UL (4.8-10.8) H Red Blood Count 4.51 M/UL (4.20-5.40) Hemoglobin 12.8 G/DL (12.0-16.0) Hematocrit 43.6 % (37.0-47.0) Mean Corpuscular Volume 97 FL (80-99) Mean Corpuscular Hemoglobin 28.4 PG (27.0-31.0) Mean Corpuscular Hemoglobin Concent 29.3 G/DL (32.0-36.0) L Red Cell Distribution Width 16.2 % (11.6-14.8) H Platelet Count 289 K/UL (150-450) Mean Platelet Volume 8.1 FL (6.5-10.1) Neutrophils (%) (Auto) % (45.0-75.0) Lymphocytes (%) (Auto) % (20.0-45.0) Monocytes (%) (Auto) % (1.0-10.0) Eosinophils (%) (Auto) % (0.0-3.0) Basophils (%) (Auto) % (0.0-2.0) Differential Total Cells Counted 100 Neutrophils % (Manual) 75 % (45-75) Lymphocytes % (Manual) 11 % (20-45) L Monocytes % (Manual) 14 % (1-10) H Eosinophils % (Manual) 0 % (0-3) Basophils % (Manual) 0 % (0-2) Band Neutrophils 0 % (0-8) Platelet Estimate Adequate Platelet Morphology Normal Hypochromasia 1+ Anisocytosis 1+ Urine Color Yellow Urine Appearance Slightly cloudy Urine pH 5 (4.5-8.0) Urine Specific [place] 1.020 (1.005-1.035) Urine Protein 3+ (NEGATIVE) H Urine Glucose (UA) 2+ (NEGATIVE) H Urine Ketones 1+ (NEGATIVE) H Urine Occult Blood 1+ (NEGATIVE) H Urine Nitrite Negative (NEGATIVE) Urine Bilirubin 2+ (NEGATIVE) H Urine Ictotest Positive Urine Urobilinogen 8 MG/DL (0.0-1.0) H Urine Leukocyte Esterase 1+ (NEGATIVE) H Urine RBC 2-4 /HPF (0 - 2) H Urine WBC 2-4 /HPF (0 - 2) Urine Squamous Epithelial Cells Few /LPF (NONE/OCC) Urine Amorphous Sediment Many /LPF (NONE) H Urine Bacteria Few /HPF (NONE) Sodium Level 137 MMOL/L (136-145) Potassium Level 5.0 MMOL/L (3.5-5.1) Chloride Level 97 MMOL/L (98-107) L Carbon Dioxide Level 41 MMOL/L (21-32) *H Anion Gap 0 mmol/L (5-15) L Blood Urea Nitrogen 8 mg/dL (7-18) Creatinine 1.2 MG/DL (0.55-1.30) Estimat Glomerular Filtration Rate 55.8 mL/min (>60) Glucose Level 144 MG/DL (74-106) H Lactic Acid Level 0.50 mmol/L (0.66-2.22) L Calcium Level 9.5 MG/DL (8.5-10.1) Total Bilirubin 1.8 MG/DL (0.2-1.0) H Direct Bilirubin 0.8 MG/DL (0.0-0.3) H Aspartate Amino Transf (AST/SGOT) 293 U/L (15-37) H Alanine Aminotransferase (ALT/SGPT) 220 U/L (12-78) H Alkaline Phosphatase 196 U/L (46-116) H Total Creatine Kinase 78 U/L (26-308) Creatine Kinase MB 0.6 NG/ML (0.0-3.6) Creatine Kinase MB Relative Index 0.7 Troponin I 0.000 ng/mL (0.000-0.056) Pro-B-Type Natriuretic Peptide 1358 pg/mL (0-125) H Total Protein 8.4 G/DL (6.4-8.2) H Albumin 2.4 G/DL (3.4-5.0) L Globulin 6.0 g/dL Albumin/Globulin Ratio 0.4 (1.0-2.7) L Current Medications Medications (Trade) Dose Ordered Sig/Felipe Route PRN Reason Start Time Stop Time Status Last Admin Dose Admin Acetaminophen (Tylenol) 650 mg Q4H PRN ORAL Fever (temp>100.5F) 12/04/17 10:15 01/03/18 10:14 Albuterol/ Ipratropium (Albuterol/ Ipratropium) 3 ml Q4H PRN HHN Shortness of Breath 12/04/17 10:15 12/09/17 10:14 Allopurinol (Zyloprim) 100 mg DAILY ORAL 12/05/17 09:00 01/04/18 08:59 Allopurinol (Zyloprim) 100 mg ONCE ORAL 12/04/17 15:30 12/04/17 16:30 Cefepime HCl 2 gm/ Dextrose 100 ml @ 200 mls/hr Q12HR IVPB 12/04/17 21:00 12/11/17 20:59 UNV Dextrose (Dextrose 50%) 25 ml STAT PRN IV Hypoglycemia 12/04/17 10:15 01/03/18 10:14 Dextrose (Dextrose 50%) 50 ml STAT PRN IV Hypoglycemia 12/04/17 10:15 01/03/18 10:14 Digoxin (Lanoxin) 0.25 mg DAILY ORAL 12/05/17 09:00 01/04/18 08:59 Digoxin (Lanoxin) 0.25 mg ONCE ORAL 12/04/17 15:30 12/04/17 16:30 Heparin Sodium (Porcine) (Heparin 5000 units/ml) 5,000 units EVERY 12 HOURS SUBQ 12/04/17 21:00 01/03/18 20:59 Insulin Aspart (NovoLOG) BEFORE MEALS AND HS SUBQ 12/04/17 11:30 01/03/18 11:29 Lorazepam (Ativan 2mg/ml 1ml) 2 mg Q2H PRN IV agitation 12/04/17 10:15 12/11/17 10:14 Metronidazole 100 ml @ 100 mls/hr Q8HR IVPB 12/04/17 22:00 12/11/17 21:59 UNV Morphine Sulfate (Morphine Sulfate) 4 mg Q4H PRN IVP Severe Pain (Pain Scale 7-10) 12/04/17 10:15 12/11/17 10:14 Nitroglycerin (Ntg) 0.4 mg Q5M PRN SL Prn Chest Pain 12/04/17 10:15 01/03/18 10:14 Ondansetron HCl (Zofran) 4 mg Q6H PRN IVP Nausea & Vomiting 12/04/17 10:15 01/03/18 10:14 Vancomycin HCl (Vanco rx to dose) 1 ea DAILY PRN MISC Per rx protocol 12/04/17 15:00 01/03/18 14:59 JUNI MERLOS Dec 04, 2017 15:14
[2017-12-04] MEDS ORDERED: Allopurinol 100mg Tab ORAL SCH (15:30)
[2017-12-04] MEDS ORDERED: Vancomycin 1.5 GM/D5W 250ML IVPB ONE (20:00)
[2017-12-04] MEDS: Vancomycin 1250mg/D5W 250ml IVPB SCH (22:09)
[2017-12-04] MEDS: Heparin 5000 units/ml inj SUBQ SCH (22:11)
[2017-12-04] MEDS: LORazepam Inj 2mg/ml 1ml IV PRN (22:56)
[2017-12-05] VITALS (22 sets, daily range): BP systolic 128–172; BP diastolic 39–80
[2017-12-05] MEDS: LORazepam Inj 2mg/ml 1ml IV PRN ×3 (04:13→12:03)
[2017-12-05] MEDS: NovoLOG Insulin Flexpen SUBQ SCH ×4 (06:14→21:18)
[2017-12-05 06:15] LABS: BASOPHILS % (AUTO) 0.8 % (0.0-2.0); EOSINOPHILS % (AUTO) 0.8 % (0.0-3.0); HEMATOCRIT 38.5 % (37.0-47.0); HEMOGLOBIN 11.8 G/DL (12.0-16.0); LYMPHOCYTES % (AUTO) 21.1 % (20.0-45.0); MEAN CORPUSCULAR VOLUME 96 FL (80-99); MONOCYTES % (AUTO) 11.7 % (1.0-10.0); NEUTROPHILS % (AUTO) 65.6 % (45.0-75.0); PLATELET COUNT 287 K/UL (150-450); RED BLOOD COUNT 4.02 M/UL (4.20-5.40); RED CELL DISTRIBUTION WIDTH 15.7 % (11.6-14.8); WHITE BLOOD COUNT 12.8 K/UL (4.8-10.8)
[2017-12-05 06:19] LABS: INR 1.2 (0.9-1.1)
[2017-12-05 06:31] LABS: ALANINE AMINOTRANSFERASE 277 U/L (12-78); ALBUMIN 2.1 G/DL (3.4-5.0); ALKALINE PHOSPHATASE 203 U/L (46-116); ASPARTATE AMINO TRANSFERASE 446 U/L (15-37); BILIRUBIN,DIRECT 1.6 MG/DL (0.0-0.3); BILIRUBIN,TOTAL 2.3 MG/DL (0.2-1.0); LACTATE DEHYDROGENASE 521 U/L (81-234); PHOSPHORUS 1.7 MG/DL (2.5-4.9)
[2017-12-05] MEDS ORDERED: Vancomycin 1250mg/D5W 250ml IVPB SCH (08:00)
[2017-12-05] MEDS: Allopurinol 100mg Tab ORAL SCH (09:12)
[2017-12-05] MEDS: Heparin 5000 units/ml inj SUBQ SCH ×2 (09:19→21:06)
[2017-12-05] MEDS: Vancomycin 1250mg/D5W 250ml IVPB SCH (09:45)
--- NOTE | 2017-12-05 10:45 | Pulmonolgy Critical Care Note ---
Critical Care - Asmt/Plan Problems: (1) Acute respiratory failure (2) Acute encephalopathy (3) Acute on chronic diastolic (congestive) heart failure (4) Likely obesity hypoventilation syndrome (5) Elevated liver enzymes Respiratory: monitor respiratory rate, adjust FIO2, CXR Cardiac: continue to monitor HR/BP Renal: F/U I&O, keep IV fluid, check electrolytes Infectious Disease: check cultures Gastrointestinal: start feedings Endocrine: monitor blood sugar, check HgA1C Hematologic: monitor H/H, transfuse if hgb<8.5 Neurologic: keep patient comfortable Affect: PRN ativan Prophylaxis: Protonix, Heparin Time Spent (Minutes): 40 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 Discussed with: nurses, consultants, rn case managementmerchandise flow manager - Objective Last 24 Hour Vital Signs Date Time Temp Pulse Resp B/P (MAP) Pulse Ox O2 Delivery O2 Flow Rate FiO2 12/05/17 10:00 84 18 144/80 100 Mechanical Ventilator 40 12/05/17 09:24 86 18 40 12/05/17 09:10 87 12/05/17 09:00 88 18 134/39 100 Mechanical Ventilator 40 12/05/17 08:00 99.4 88 18 158/64 100 Mechanical Ventilator 40 99.4 12/05/17 08:00 76 12/05/17 08:00 40 12/05/17 07:00 79 18 150/61 100 Mechanical Ventilator 16.0 60 12/05/17 06:47 78 18 40 12/05/17 06:00 78 18 100 Mechanical Ventilator 16.0 60 12/05/17 05:21 79 18 40 12/05/17 05:00 79 18 100 Mechanical Ventilator 16.0 60 12/05/17 04:00 60 12/05/17 04:00 98.0 87 18 140/64 100 Mechanical Ventilator 16.0 60 98.0 12/05/17 04:00 91 12/05/17 03:14 83 18 40 12/05/17 03:00 84 18 140/64 99 Mechanical Ventilator 16.0 60 12/05/17 02:00 79 17 155/65 100 Mechanical Ventilator 16.0 60 12/05/17 01:25 78 18 40 12/05/17 01:00 80 18 145/56 99 Mechanical Ventilator 16.0 60 12/05/17 00:02 82 18 40 12/05/17 00:00 60 12/05/17 00:00 83 12/05/17 00:00 98.0 84 18 144/57 100 Mechanical Ventilator 16.0 60 98.0 12/05/17 00:00 84 18 144/57 100 12/04/17 23:00 83 18 158/57 100 12/04/17 23:00 83 18 158/57 100 Mechanical Ventilator 16.0 60 12/04/17 22:00 79 18 126/54 99 12/04/17 22:00 79 18 126/54 99 Mechanical Ventilator 16.0 60 12/04/17 21:00 73 16 121/54 100 Mechanical Ventilator 16.0 60 12/04/17 21:00 73 16 121/54 100 12/04/17 20:47 75 18 40 12/04/17 20:24 72 12/04/17 20:00 74 18 114/44 98 12/04/17 20:00 97.2 74 18 114/44 98 Mechanical Ventilator 16.0 60 97.2 12/04/17 19:56 60 12/04/17 19:30 72 18 40 12/04/17 19:00 71 17 126/46 100 Mechanical Ventilator 16.0 60 12/04/17 19:00 71 17 126/46 100 12/04/17 18:00 77 18 106/50 100 12/04/17 17:14 79 18 40 12/04/17 17:03 82 21 124/54 100 12/04/17 17:00 84 13 100 12/04/17 16:10 97.7 77 18 120/69 100 Mechanical Ventilator 15.0 40 97.7 12/04/17 15:46 18 12/04/17 15:30 77 12/04/17 15:12 77 18 40 12/04/17 13:28 97.7 67 18 134/54 100 Mechanical Ventilator 15.0 40 97.7 12/04/17 13:22 71 18 40 12/04/17 12:16 18 12/04/17 11:53 97.7 70 17 159/80 100 Mechanical Ventilator 15.0 40 97.7 12/04/17 11:16 29 12/04/17 11:01 65 18 100 Mechanical Ventilator 40 12/04/17 10:55 65 18 100 Mechanical Ventilator 12/04/17 10:54 97.7 64 29 165/75 97 Mechanical Ventilator 15.0 40 97.7 Status: sedated Condition: grave Lungs: clear, chest wall tender Heart: regular Abdomen: active bowel sounds Extremities: no C/C/E Micro: Microbiology Date/Time Source Procedure Growth Status 12/04/17 08:30 Rectum VRE Culture - Final Enterococcus Faecium - Vre Complete Accucheck: 216 Critical Care - Subjective ROS Limited/Unobtainable: Yes ICU Day: 2 Condition: critical EKG Rhythm: Sinus Rhythm FI02: 40 Vent Support Breath Rate: 18 Vent Support Mode: AC Vent Tidal Volume: 600 Sputum Amount: Small PEEP: 5.0 PIP: 45 I&O: Intake and Output 12/04/17 12/05/17 19:00 07:00 Intake Total 3150 ml 1000.000 ml Output Total 90 ml 100 ml Balance 3060 ml 900.000 ml Intake IV Total 2150 ml 1000.000 ml Other 1000 ml Output Urine Total 90 ml 100 ml # Voids 30 CXR: right base infiltrate ET-Tube: 7.5 ET Position: 22 Labs: Laboratory Tests Test 12/04/17 14:51 12/04/17 18:10 12/05/17 05:20 Arterial Blood pH 7.490 (7.350-7.450) Arterial Blood Partial Pressure CO2 43.7 mmHg (35.0-45.0) Arterial Blood Partial Pressure O2 104.6 mmHg (75.0-100.0) H Arterial Blood HCO3 32.9 mmol/L (22.0-26.0) H Arterial Blood Oxygen Saturation 98.6 % (92.0-98.0) H Arterial Blood Base Excess 8.7 Doroteo Test Positive Lactic Acid Level 1.50 mmol/L (0.66-2.22) 1.90 mmol/L (0.66-2.22) Random Vancomycin Level 12.7 ug/mL White Blood Count 12.8 K/UL (4.8-10.8) H Red Blood Count 4.02 M/UL (4.20-5.40) L Hemoglobin 11.8 G/DL (12.0-16.0) L Hematocrit 38.5 % (37.0-47.0) Mean Corpuscular Volume 96 FL (80-99) Mean Corpuscular Hemoglobin 29.3 PG (27.0-31.0) Mean Corpuscular Hemoglobin Concent 30.6 G/DL (32.0-36.0) L Red Cell Distribution Width 15.7 % (11.6-14.8) H Platelet Count 287 K/UL (150-450) Mean Platelet Volume 7.3 FL (6.5-10.1) Neutrophils (%) (Auto) 65.6 % (45.0-75.0) Lymphocytes (%) (Auto) 21.1 % (20.0-45.0) Monocytes (%) (Auto) 11.7 % (1.0-10.0) H Eosinophils (%) (Auto) 0.8 % (0.0-3.0) Basophils (%) (Auto) 0.8 % (0.0-2.0) Prothrombin Time 12.1 SEC (9.30-11.50) H Prothromb Time International Ratio 1.2 (0.9-1.1) H Activated Partial Thromboplast Time 31 SEC (23-33) Phosphorus Level 1.7 MG/DL (2.5-4.9) L Total Bilirubin 2.3 MG/DL (0.2-1.0) H Direct Bilirubin 1.6 MG/DL (0.0-0.3) H Aspartate Amino Transf (AST/SGOT) 446 U/L (15-37) H Alanine Aminotransferase (ALT/SGPT) 277 U/L (12-78) H Alkaline Phosphatase 203 U/L (46-116) H Lactate Dehydrogenase 521 U/L (81-234) H Total Protein 7.3 G/DL (6.4-8.2) Albumin 2.1 G/DL (3.4-5.0) L Yariel Malone MD Dec 05, 2017 10:45
--- NOTE | 2017-12-05 11:08 | Diagnostic Imaging Report ---
Indication: NG tube placement Comparison: 11/26/2017 Single view of the abdomen obtained Findings: NG tube is within the stomach in good position. IMPRESSION: NG tube in good position
--- NOTE | 2017-12-05 11:47 | Diagnostic Imaging Report ---
Indication: Dyspnea Comparison: 12/04/2017 A single view chest radiograph was obtained. Findings: Endotracheal tube is somewhat high in location and ideally should be advanced further. Nasogastric tube is in good position. There is mild patchy bright basal atelectasis. The heart is enlarged. Lung volumes are low bilaterally. IMPRESSION: NG tube in good position. Endotracheal tube slightly high in location.
[2017-12-05 12:48] LABS: EOSINOPHILS % (AUTO) 1.1 % (0.0-3.0); HEMATOCRIT 40.1 % (37.0-47.0); HEMOGLOBIN 12.1 G/DL (12.0-16.0); LYMPHOCYTES % (AUTO) 25.1 % (20.0-45.0); MEAN CORPUSCULAR VOLUME 95 FL (80-99); MONOCYTES % (AUTO) 11.9 % (1.0-10.0); NEUTROPHILS % (AUTO) 60.9 % (45.0-75.0); PLATELET COUNT 283 K/UL (150-450); RED BLOOD COUNT 4.24 M/UL (4.20-5.40); RED CELL DISTRIBUTION WIDTH 15.8 % (11.6-14.8); WHITE BLOOD COUNT 12.3 K/UL (4.8-10.8)
[2017-12-05 12:58] LABS: ALANINE AMINOTRANSFERASE 304 U/L (12-78); ALBUMIN 2.2 G/DL (3.4-5.0); ALBUMIN/GLOBULIN RATIO 0.4 (1.0-2.7); ALKALINE PHOSPHATASE 219 U/L (46-116); ANION GAP 7 mmol/L (5-15); ASPARTATE AMINO TRANSFERASE 489 U/L (15-37); BILIRUBIN,TOTAL 2.5 MG/DL (0.2-1.0); BLOOD UREA NITROGEN 17 mg/dL (7-18); CALCIUM 9.2 MG/DL (8.5-10.1); CARBON DIOXIDE 32 MMOL/L (21-32); CHLORIDE 98 MMOL/L (98-107); POTASSIUM 4.1 MMOL/L (3.5-5.1); SODIUM 137 MMOL/L (136-145)
[2017-12-05 12:59] LABS: BILIRUBIN,DIRECT 1.8 MG/DL (0.0-0.3)
[2017-12-05] MEDS ORDERED: Sodium Phosphate 30 MM in NS 275 ML IV SCH (13:00)
[2017-12-05] MEDS ORDERED: D5NS 1000ml IV ONE (20:04)
[2017-12-05] MEDS ORDERED: NS 275ml ONE (20:04)
[2017-12-05] MEDS ORDERED: D5 1/2NS 1000ml IV ONE (20:04)
[2017-12-05] MEDS ORDERED: Tubing IV Secondary IV ONE (20:04)
[2017-12-05] MEDS ORDERED: 1/2 NS 1000ml IV ONE (20:04)
--- NOTE | 2017-12-05 21:01 | General Progress Note ---
Assessment/Plan Problem List: (1) Acute toxic metabolic encephalopathy (2) Acute respiratory failure with hypoxia and hypercapnia ICD Codes: J96.01 - Acute respiratory failure with hypoxia; J96.02 - Acute respiratory failure with hypercapnia SNOMED: 88092899, 72199130, 086111551 (3) Likely obesity hypoventilation syndrome (4) Severe sepsis ICD Codes: A41.9 - Sepsis, unspecified organism; R65.20 - Severe sepsis without septic shock SNOMED: 36723679 (5) KASHIF (acute kidney injury) ICD Codes: N17.9 - Acute kidney failure, unspecified SNOMED: 39791100 (6) ATN (acute tubular necrosis) ICD Codes: N17.0 - Acute kidney failure with tubular necrosis SNOMED: 91251783 (7) Elevated liver enzymes ICD Codes: R74.8 - Abnormal levels of other serum enzymes SNOMED: 961914846 (8) Aspiration pnemonia vs HCAP (9) UTI (urinary tract infection) ICD Codes: N39.0 - Urinary tract infection, site not specified SNOMED: 47343527 Qualifiers: Qualified Codes: N39.0 - Urinary tract infection, site not specified (10) Morbid obesity ICD Codes: E66.01 - Morbid (severe) obesity due to excess calories SNOMED: 724696478, 74308147661683 (11) Chronic diastolic (congestive) heart failure ICD Codes: I50.32 - Chronic diastolic (congestive) heart failure SNOMED: 23969821, 802478298 (12) DM2 (diabetes mellitus, type 2) ICD Codes: E11.9 - Type 2 diabetes mellitus without complications SNOMED: 88757060 (13) Hypertension ICD Codes: I10 - Essential (primary) hypertension SNOMED: 84726245 (14) Fatty liver ICD Codes: K76.0 - Fatty (change of) liver, not elsewhere classified SNOMED: 242998366 (15) GERD (gastroesophageal reflux disease) ICD Codes: K21.9 - Gastro-esophageal reflux disease without esophagitis SNOMED: 140665912 (16) Asthma ICD Codes: J45.909 - Unspecified asthma, uncomplicated SNOMED: 939191284 (17) H/O supraventricular tachycardia ICD Codes: Z86.79 - Personal history of other diseases of the circulatory system SNOMED: 208326805212109 Status: unchanged Assessment/Plan Cont ICU care Pulm/critical care consulted Cont on vent and wean as tolerated Daily SBTs, sedation holidays This is pt's 3rd intubation in less than 6 months. D/w pulm re likely plan for tracheostomy Currently not requiring pressors. Goal MAP 65 and above ID consulted Empiric vanco, cefepime and flagyl per ID; zosyn d/c'd given KASHIF F/u cultures Tube feeds started mIVFs Strict I/O's Trend CBC, CMP Check urine lytes, urine eos Consider renal consult if cont to uptrend Pain control, bowel regimen Supportive care PPI DVT Prophylaxis: SCD, HSQ Code Status: Full Hospital Classification Declaration: Based on this initial evaluation, and depending on the patient's clinical course, I anticipate that this patient will require hospitalization for 3-4 days for acute respiratory failure, sepsis and close respiratory/hemodynamic monitoring. Disposition: Once the patient is stable to leave the hospital, I anticipate the patient will likely be discharged to the following environment: back to SNF At the time of my involvement, the patient's condition was critical with high potential for and/or physiologic deterioration secondary to acute respiratory failure, severe sepsis as delineated in the note above. On the above date of service, I spent a total of 44 minutes in the ICU evaluating, managing, and providing critical care services to this patient, including time spent documenting these activities, counseling patient/family, and coordinating care. Critical care services performed include: Telemetry Review Hemodynamic measurement interpretation Laboratory data review and interpretation Ventilator setting review, management, and adjustment Discussion of care plans with patient, family, and/or surrogate decision makers Discussion of patient's care with primary medical team, surgical team, and/or consulting service Decision to obtain further radiologic evaluation, after consideration of risk/ benefit ratio Decision to perform invasive procedure, after consideration of risk/benefit ratio Review of most recent microbiology results with assessment and modification of antimicrobial coverage Discussion of patient's code status and further advancement towards the ultimate goals of care Plan outlined above discussed with patient/family, pulm/critical care, ID regarding mgmt and dispo. D/w pulm re likely plan for trach. D/w ID re broad- spectrum abx Time of note may not reflect time of encounter. Subjective Date patient seen: Dec 05, 2017 Time patient seen: 16:30 ROS Limited/Unobtainable: Yes Allergies: Coded Allergies: ASPARTAME (Verified Allergy, Unknown, 11/30/17) Headache Subjective No acute o/n events Cr rising 3.0. ID switched zosyn to cefepime + flagyl Pt intubated, sedated, arousable to voice Objective Last 24 Hour Vital Signs Date Time Temp Pulse Resp B/P (MAP) Pulse Ox O2 Delivery O2 Flow Rate FiO2 12/05/17 20:00 81 18 40 12/05/17 18:00 84 18 160/64 100 Mechanical Ventilator 40 12/05/17 17:00 82 18 159/69 100 Mechanical Ventilator 40 12/05/17 16:57 81 19 40 12/05/17 16:00 98.9 80 18 153/62 100 Mechanical Ventilator 40 98.9 12/05/17 16:00 40 12/05/17 16:00 82 12/05/17 15:00 81 18 155/63 100 Mechanical Ventilator 40 12/05/17 14:40 87 19 40 12/05/17 14:00 83 18 150/62 100 Mechanical Ventilator 40 12/05/17 13:00 85 18 141/65 100 Mechanical Ventilator 40 12/05/17 12:34 82 18 40 12/05/17 12:00 80 12/05/17 12:00 99.6 83 17 160/73 100 Mechanical Ventilator 40 99.6 12/05/17 12:00 40 12/05/17 11:00 78 18 156/65 100 Mechanical Ventilator 40 12/05/17 10:51 79 18 40 12/05/17 10:00 84 18 144/80 100 Mechanical Ventilator 40 12/05/17 09:24 86 18 40 12/05/17 09:10 87 12/05/17 09:00 88 18 134/39 100 Mechanical Ventilator 40 12/05/17 08:00 99.4 88 18 158/64 100 Mechanical Ventilator 40 99.4 12/05/17 08:00 76 12/05/17 08:00 40 12/05/17 07:00 79 18 150/61 100 Mechanical Ventilator 16.0 60 12/05/17 06:47 78 18 40 12/05/17 06:00 78 18 100 Mechanical Ventilator 16.0 60 12/05/17 05:21 79 18 40 12/05/17 05:00 79 18 100 Mechanical Ventilator 16.0 60 12/05/17 04:00 60 4/28/18 04:00 98.0 87 18 140/64 100 Mechanical Ventilator 16.0 60 98.0 12/05/17 04:00 91 12/05/17 03:14 83 18 40 12/05/17 03:00 84 18 140/64 99 Mechanical Ventilator 16.0 60 12/05/17 02:00 79 17 155/65 100 Mechanical Ventilator 16.0 60 12/05/17 01:25 78 18 40 12/05/17 01:00 80 18 145/56 99 Mechanical Ventilator 16.0 60 12/05/17 00:02 82 18 40 12/05/17 00:00 60 12/05/17 00:00 83 12/05/17 00:00 98.0 84 18 144/57 100 Mechanical Ventilator 16.0 60 98.0 12/05/17 00:00 84 18 144/57 100 12/04/17 23:00 83 18 158/57 100 12/04/17 23:00 83 18 158/57 100 Mechanical Ventilator 16.0 60 12/04/17 22:00 79 18 126/54 99 12/04/17 22:00 79 18 126/54 99 Mechanical Ventilator 16.0 60 12/04/17 21:00 73 16 121/54 100 Mechanical Ventilator 16.0 60 12/04/17 21:00 73 16 121/54 100 Intake and Output 12/04/17 12/05/17 19:00 07:00 Intake Total 3150 ml 1000.000 ml Output Total 90 ml 100 ml Balance 3060 ml 900.000 ml IV Total 2150 ml 1000.000 ml Other 1000 ml Output Urine Total 90 ml 100 ml # Voids 30 Laboratory Tests 12/05/17 05:20: White Blood Count 12.8H, Red Blood Count 4.02L, Hemoglobin 11.8L, Hematocrit 38.5, Mean Corpuscular Volume 96, Mean Corpuscular Hemoglobin 29.3, Mean Corpuscular Hemoglobin Concent 30.6L, Red Cell Distribution Width 15.7H, Platelet Count 287, Mean Platelet Volume 7.3, Neutrophils (%) (Auto) 65.6, Lymphocytes (%) (Auto) 21.1, Monocytes (%) (Auto) 11.7H, Eosinophils (%) (Auto) 0.8, Basophils (%) (Auto) 0.8, Prothrombin Time 12.1H, Prothromb Time International Ratio 1.2H, Activated Partial Thromboplast Time 31, Lactic Acid Level 1.90, Phosphorus Level 1.7L, Total Bilirubin 2.3H, Direct Bilirubin 1.6H, Aspartate Amino Transf (AST/SGOT) 446H, Alanine Aminotransferase (ALT/SGPT) 277H , Alkaline Phosphatase 203H, Lactate Dehydrogenase 521H, Total Protein 7.3, Albumin 2.1L 12/05/17 11:35: White Blood Count 12.3H, Red Blood Count 4.24, Hemoglobin 12.1, Hematocrit 40.1 , Mean Corpuscular Volume 95, Mean Corpuscular Hemoglobin 28.6, Mean Corpuscular Hemoglobin Concent 30.3L, Red Cell Distribution Width 15.8H, Platelet Count 283, Mean Platelet Volume 7.1, Neutrophils (%) (Auto) 60.9, Lymphocytes (%) (Auto) 25.1, Monocytes (%) (Auto) 11.9H, Eosinophils (%) (Auto) 1.1, Basophils (%) (Auto) 1.0, Total Bilirubin 2.5H, Direct Bilirubin 1.8H, Aspartate Amino Transf (AST/SGOT) 489H, Alanine Aminotransferase (ALT/SGPT) 304H , Alkaline Phosphatase 219H, Total Protein 7.6, Albumin 2.2L, Sodium Level 137, Potassium Level 4.1, Chloride Level 98, Carbon Dioxide Level 32, Anion Gap 7, Blood Urea Nitrogen 17, Creatinine 3.0#H, Estimat Glomerular Filtration Rate 19.4, Glucose Level 150H, Calcium Level 9.2, Globulin 5.4, Albumin/Globulin Ratio 0.4L 12/05/17 20:30: Vancomycin Level Trough [Pending] Height (Feet): 5 Height (Inches): 8.00 Weight (Pounds): 447 Objective General: intubated, sedated, morbidly obese Head: normocephalic, without obvious abnormality, atraumatic Eyes: conjunctivae/corneas clear. PERRL, EOM's intact Throat: lips, mucosa, and tongue normal. MMM Neck: supple, symmetrical, trachea midline, and no JVD Lungs:+rhonchi b/l Heart: regular rate and rhythm, S1, S2 normal, no murmur, click, rub or gallop Abdomen: soft, non-tender, non-distended, bowel sounds normal Extremities: extremities normal, atraumatic, no cyanosis or edema Pulses: 2+ and symmetric Skin: skin color, texture, turgor normal; no rashes or lesions Neurologic: sedated Cassie Bolivar M.D. Dec 05, 2017 21:01
[2017-12-06] VITALS (24 sets, daily range): BP systolic 114–165; BP diastolic 48–86
[2017-12-06 04:34] LABS: BASOPHILS % (AUTO) 0.7 % (0.0-2.0); EOSINOPHILS % (AUTO) 1.8 % (0.0-3.0); HEMATOCRIT 35.5 % (37.0-47.0); HEMOGLOBIN 11.4 G/DL (12.0-16.0); LYMPHOCYTES % (AUTO) 24.2 % (20.0-45.0); MEAN CORPUSCULAR VOLUME 93 FL (80-99); MONOCYTES % (AUTO) 12.9 % (1.0-10.0); NEUTROPHILS % (AUTO) 60.4 % (45.0-75.0); PLATELET COUNT 278 K/UL (150-450); RED BLOOD COUNT 3.82 M/UL (4.20-5.40); WHITE BLOOD COUNT 9.3 K/UL (4.8-10.8)
[2017-12-06 05:24] LABS: ALANINE AMINOTRANSFERASE 317 U/L (12-78); ALBUMIN 2.1 G/DL (3.4-5.0); ALBUMIN/GLOBULIN RATIO 0.5 (1.0-2.7); ALKALINE PHOSPHATASE 233 U/L (46-116); ANION GAP 6 mmol/L (5-15); ASPARTATE AMINO TRANSFERASE 495 U/L (15-37); BILIRUBIN,TOTAL 2.3 MG/DL (0.2-1.0); BLOOD UREA NITROGEN 22 mg/dL (7-18); CALCIUM 8.5 MG/DL (8.5-10.1); CARBON DIOXIDE 32 MMOL/L (21-32); CHLORIDE 99 MMOL/L (98-107); CREATININE 4.4 MG/DL (0.55-1.30); PHOSPHORUS 2.5 MG/DL (2.5-4.9); POTASSIUM 3.9 MMOL/L (3.5-5.1); SODIUM 137 MMOL/L (136-145)
[2017-12-06 05:26] LABS: BILIRUBIN,DIRECT 2.1 MG/DL (0.0-0.3)
[2017-12-06] MEDS: NovoLOG Insulin Flexpen SUBQ SCH ×3 (06:06→17:38)
[2017-12-06] MEDS: Vancomycin 1250mg/D5W 250ml IVPB SCH (07:53)
[2017-12-06] MEDS: Allopurinol 100mg Tab ORAL SCH (08:46)
[2017-12-06] MEDS: Pantoprazole Inj IVP SCH (08:46)
[2017-12-06] MEDS: Heparin 5000 units/ml inj SUBQ SCH ×2 (08:49→21:00)
[2017-12-06] MEDS ORDERED: 1/2 NS 1000ml IV ONE (09:50)
[2017-12-06] MEDS ORDERED: Tubing IV Secondary IV ONE (09:50)
--- NOTE | 2017-12-06 11:34 | Diagnostic Imaging Report ---
Indication: Dyspnea Comparison: 11/27/2017 A single view chest radiograph was obtained. Findings: Endotracheal tube and nasogastric tubes are in good position unchanged. Lung volumes remain low. Lungs are essentially clear. Heart is enlarged. Bones are unremarkable. IMPRESSION: No acute findings
[2017-12-06] MEDS ORDERED: Vancomycin 1.5 GM/D5W 250ML IVPB SCH (12:00)
--- NOTE | 2017-12-06 12:24 | Pulmonolgy Critical Care Note ---
Critical Care - Asmt/Plan Problems: (1) Acute respiratory failure (2) Acute encephalopathy (3) Elevated liver enzymes (4) ATN (acute tubular necrosis) (5) Aspiration pnemonia vs HCAP (6) Likely obesity hypoventilation syndrome Respiratory: monitor respiratory rate, adjust FIO2, CXR, other - advance ET tube by two centimeters, Cardiac: continue to monitor HR/BP Renal: F/U I&O, check electrolytes Infectious Disease: check cultures Gastrointestinal: continue feedings/current rate Endocrine: monitor blood sugar Hematologic: monitor H/H, transfuse if hgb<8.5 Neurologic: PRN Ativan, keep patient comfortable 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 Discussed with: nurses, consultants, case checkercomplex human resources manager - Objective Last 24 Hour Vital Signs Date Time Temp Pulse Resp B/P (MAP) Pulse Ox O2 Delivery O2 Flow Rate FiO2 12/06/17 11:00 79 18 144/53 98 Mechanical Ventilator 50 12/06/17 10:29 75 22 40 12/06/17 10:00 77 18 139/58 93 Mechanical Ventilator 50 12/06/17 09:00 76 18 150/63 96 Mechanical Ventilator 50 12/06/17 08:54 73 22 40 12/06/17 08:25 73 12/06/17 08:00 50 12/06/17 08:00 99.1 76 18 164/63 98 Mechanical Ventilator 50 99.1 12/06/17 07:00 78 18 136/57 98 Mechanical Ventilator 50 12/06/17 06:52 81 22 40 12/06/17 06:00 84 19 114/55 97 Mechanical Ventilator 50 12/06/17 05:00 77 18 114/55 94 Mechanical Ventilator 50 12/06/17 04:53 77 18 40 12/06/17 04:34 77 12/06/17 04:00 99.5 82 18 114/55 98 Mechanical Ventilator 50 99.5 12/06/17 04:00 50 12/06/17 03:27 90 19 40 12/06/17 03:00 86 18 114/55 100 Mechanical Ventilator 50 12/06/17 02:16 99.6 12/06/17 02:00 87 18 114/55 96 Mechanical Ventilator 50 12/06/17 01:17 100.6 12/06/17 01:10 88 18 40 12/06/17 01:09 87 18 97 Mechanical Ventilator 40 12/06/17 01:00 84 18 147/59 92 Mechanical Ventilator 40 12/06/17 00:00 40 12/06/17 00:00 99.5 88 18 131/60 93 Mechanical Ventilator 40 99.5 12/05/17 23:29 85 12/05/17 23:08 86 18 40 12/05/17 23:00 86 18 145/60 97 Mechanical Ventilator 40 12/05/17 22:00 86 18 128/57 97 Mechanical Ventilator 40 12/05/17 21:30 87 18 40 12/05/17 21:00 88 19 134/60 96 Mechanical Ventilator 40 12/05/17 20:00 40 12/05/17 20:00 81 12/05/17 20:00 98.5 81 18 150/64 100 Mechanical Ventilator 40 98.5 12/05/17 20:00 81 18 40 12/05/17 19:00 82 18 172/71 100 Mechanical Ventilator 40 12/05/17 18:00 84 18 160/64 100 Mechanical Ventilator 40 12/05/17 17:00 82 18 159/69 100 Mechanical Ventilator 40 12/05/17 16:57 81 19 40 12/05/17 16:00 98.9 80 18 153/62 100 Mechanical Ventilator 40 98.9 12/05/17 16:00 40 12/05/17 16:00 82 12/05/17 15:00 81 18 155/63 100 Mechanical Ventilator 40 12/05/17 14:40 87 19 40 12/05/17 14:00 83 18 150/62 100 Mechanical Ventilator 40 12/05/17 13:00 85 18 141/65 100 Mechanical Ventilator 40 12/05/17 12:34 82 18 40 Status: sedated Condition: critical Neck: full ROM Lungs: clear, rales Heart: HR/BP stable Abdomen: soft, non-tender, feeding tube Extremities: no C/C/E Micro: Microbiology Date/Time Source Procedure Growth Status 12/04/17 09:30 Blood Blood Culture - Preliminary NO GROWTH AFTER 24 HOURS Resulted 12/04/17 09:30 Blood Blood Culture - Preliminary NO GROWTH AFTER 24 HOURS Resulted 12/04/17 08:30 Nasal Nares MRSA Culture - Final Staphylococcus Aureus - Mrsa Complete 12/04/17 08:30 Rectum VRE Culture - Final Enterococcus Faecium - Vre Complete Accucheck: 127 Critical Care - Subjective ROS Limited/Unobtainable: Yes ICU Day: 3 Intubation Day: 3 Condition: critical EKG Rhythm: Sinus Rhythm FI02: 50 Vent Support Breath Rate: 18 Vent Support Mode: AC Vent Tidal Volume: 600 Sputum Amount: Small PEEP: 5.0 PIP: 37 Tube Feeding Amount: 30 I&O: Intake and Output 12/05/17 12/06/17 19:00 07:00 Intake Total 1259.167 ml 1187.5 ml Output Total 180 ml 325 ml Balance 1079.167 ml 862.5 ml Intake Free Water 50 ml IV Total 1089.167 ml 847.5 ml Tube Feeding 30 ml 300 ml Other 90 ml 40 ml Output Urine Total 180 ml 325 ml CXR: ET slightly too high ET-Tube: 7.5 ET Position: 22 Labs: Laboratory Tests Test 12/05/17 20:30 12/05/17 21:25 12/06/17 04:00 12/06/17 07:00 Vancomycin Level Trough 28.7 ug/mL (5.0-12.0) H Urine Eosinophils None seen Urine Random Sodium 57 mmol/L (20-110) Urine Creatinine 51.5 MG/DL (30.0-125.0) White Blood Count 9.3 K/UL (4.8-10.8) Red Blood Count 3.82 M/UL (4.20-5.40) L Hemoglobin 11.4 G/DL (12.0-16.0) L Hematocrit 35.5 % (37.0-47.0) L Mean Corpuscular Volume 93 FL (80-99) Mean Corpuscular Hemoglobin 29.8 PG (27.0-31.0) Mean Corpuscular Hemoglobin Concent 32.0 G/DL (32.0-36.0) Red Cell Distribution Width 15.0 % (11.6-14.8) H Platelet Count 278 K/UL (150-450) Mean Platelet Volume 7.0 FL (6.5-10.1) Neutrophils (%) (Auto) 60.4 % (45.0-75.0) Lymphocytes (%) (Auto) 24.2 % (20.0-45.0) Monocytes (%) (Auto) 12.9 % (1.0-10.0) H Eosinophils (%) (Auto) 1.8 % (0.0-3.0) Basophils (%) (Auto) 0.7 % (0.0-2.0) Sodium Level 137 MMOL/L (136-145) Potassium Level 3.9 MMOL/L (3.5-5.1) Chloride Level 99 MMOL/L (98-107) Carbon Dioxide Level 32 MMOL/L (21-32) Anion Gap 6 mmol/L (5-15) Blood Urea Nitrogen 22 mg/dL (7-18) H Creatinine 4.4 MG/DL (0.55-1.30) H Estimat Glomerular Filtration Rate 12.4 mL/min (>60) Glucose Level 158 MG/DL (74-106) H Calcium Level 8.5 MG/DL (8.5-10.1) Phosphorus Level 2.5 MG/DL (2.5-4.9) Magnesium Level 1.7 MG/DL (1.8-2.4) L Total Bilirubin 2.3 MG/DL (0.2-1.0) H Direct Bilirubin 2.1 MG/DL (0.0-0.3) H Aspartate Amino Transf (AST/SGOT) 495 U/L (15-37) H Alanine Aminotransferase (ALT/SGPT) 317 U/L (12-78) H Alkaline Phosphatase 233 U/L (46-116) H Total Protein 6.6 G/DL (6.4-8.2) Albumin 2.1 G/DL (3.4-5.0) L Globulin 4.5 g/dL Albumin/Globulin Ratio 0.5 (1.0-2.7) L Digoxin Level 1.3 NG/ML (0.9-2.0) Arterial Blood pH 7.440 (7.350-7.450) Arterial Blood Partial Pressure CO2 51.8 mmHg (35.0-45.0) H Arterial Blood Partial Pressure O2 175.3 mmHg (75.0-100.0) H Arterial Blood HCO3 35.0 mmol/L (22.0-26.0) H Arterial Blood Oxygen Saturation 99.1 % (92.0-98.0) H Arterial Blood Base Excess 9.5 Doroteo Test Positive Yariel Malone MD Dec 06, 2017 12:24
[2017-12-06 12:37] LABS: CREATINE KINASE 64 U/L (26-308)
[2017-12-06 13:40] LABS: APPEARANCE,URINE CLEAR; BILIRUBIN, URINE NEGATIVE (NEGATIVE); GLUCOSE, URINE (UA) NEGATIVE (NEGATIVE); KETONES,URINE NEGATIVE (NEGATIVE); LEUKOCYTE ESTERASE ,URINE 3+ (NEGATIVE); NITRITE,URINE NEGATIVE (NEGATIVE); PH,URINE 6.5 (4.5-8.0); PROTEIN,URINE 3+ (NEGATIVE); UROBILINOGEN,URINE 1 MG/DL (0.0-1.0)
[2017-12-06] MEDS: LORazepam Inj 2mg/ml 1ml IV PRN ×2 (13:44→21:32)
[2017-12-06 14:00] LABS: COLOR,URINE YELLOW
--- NOTE | 2017-12-06 16:00 | General Progress Note ---
Assessment/Plan Problem List: (1) Acute toxic metabolic encephalopathy (2) Acute respiratory failure with hypoxia and hypercapnia ICD Codes: J96.01 - Acute respiratory failure with hypoxia; J96.02 - Acute respiratory failure with hypercapnia SNOMED: 25929014, 64411405, 732632288 (3) Likely obesity hypoventilation syndrome (4) Severe sepsis ICD Codes: A41.9 - Sepsis, unspecified organism; R65.20 - Severe sepsis without septic shock SNOMED: 47968292 (5) KASHIF (acute kidney injury) ICD Codes: N17.9 - Acute kidney failure, unspecified SNOMED: 32124385 (6) ATN (acute tubular necrosis) ICD Codes: N17.0 - Acute kidney failure with tubular necrosis SNOMED: 88079728 (7) Elevated liver enzymes ICD Codes: R74.8 - Abnormal levels of other serum enzymes SNOMED: 985060374 (8) Aspiration pnemonia vs HCAP (9) UTI (urinary tract infection) ICD Codes: N39.0 - Urinary tract infection, site not specified SNOMED: 89660285 Qualifiers: Qualified Codes: N39.0 - Urinary tract infection, site not specified (10) Morbid obesity ICD Codes: E66.01 - Morbid (severe) obesity due to excess calories SNOMED: 018211441, 20950674483285 (11) Chronic diastolic (congestive) heart failure ICD Codes: I50.32 - Chronic diastolic (congestive) heart failure SNOMED: 40404149, 269029382 (12) DM2 (diabetes mellitus, type 2) ICD Codes: E11.9 - Type 2 diabetes mellitus without complications SNOMED: 47351415 (13) Hypertension ICD Codes: I10 - Essential (primary) hypertension SNOMED: 65822607 (14) Fatty liver ICD Codes: K76.0 - Fatty (change of) liver, not elsewhere classified SNOMED: 757535800 (15) GERD (gastroesophageal reflux disease) ICD Codes: K21.9 - Gastro-esophageal reflux disease without esophagitis SNOMED: 532884550 (16) Asthma ICD Codes: J45.909 - Unspecified asthma, uncomplicated SNOMED: 667439637 (17) H/O supraventricular tachycardia ICD Codes: Z86.79 - Personal history of other diseases of the circulatory system SNOMED: 642414785158677 Status: deteriorating Assessment/Plan Cont ICU care Pulm/critical care consulted Cont on vent and wean as tolerated Daily SBTs, sedation holidays This is pt's 3rd intubation in less than 6 months. D/w pulm re likely plan for tracheostomy. D/w pt and son. Surgery to be consulted. Currently not requiring pressors. Goal MAP 65 and above ID consulted Empiric vanco, cefepime and flagyl per ID; zosyn d/c'd given KASHIF F/u cultures Nephrology consulted given KASHIF mIVFs Strict I/O's Trend CBC, CMP Cont tube feeds Pain control, bowel regimen Supportive care PPI DVT Prophylaxis: SCD, HSQ Code Status: Full Hospital Classification Declaration: Based on this initial evaluation, and depending on the patient's clinical course, I anticipate that this patient will require hospitalization for 3-4 days for acute respiratory failure, sepsis and close respiratory/hemodynamic monitoring. Disposition: Once the patient is stable to leave the hospital, I anticipate the patient will likely be discharged to the following environment: back to SNF At the time of my involvement, the patient's condition was critical with high potential for and/or physiologic deterioration secondary to acute respiratory failure, severe sepsis as delineated in the note above. On the above date of service, I spent a total of 42 minutes in the ICU evaluating, managing, and providing critical care services to this patient, including time spent documenting these activities, counseling patient/family, and coordinating care. Critical care services performed include: Telemetry Review Hemodynamic measurement interpretation Laboratory data review and interpretation Ventilator setting review, management, and adjustment Discussion of care plans with patient, family, and/or surrogate decision makers Discussion of patient's care with primary medical team, surgical team, and/or consulting service Decision to obtain further radiologic evaluation, after consideration of risk/ benefit ratio Decision to perform invasive procedure, after consideration of risk/benefit ratio Review of most recent microbiology results with assessment and modification of antimicrobial coverage Discussion of patient's code status and further advancement towards the ultimate goals of care Plan outlined above discussed with patient/family, pulm/critical care, ID regarding mgmt and dispo. D/w pulm re likely plan for trach. D/w ID re broad- spectrum abx. D/w renal re rising SCr Time of note may not reflect time of encounter. Subjective Date patient seen: Dec 06, 2017 Time patient seen: 16:00 ROS Limited/Unobtainable: Yes Allergies: Coded Allergies: ASPARTAME (Verified Allergy, Unknown, 11/30/17) Headache Subjective No acute o/n events Cr rising 4. ID switched zosyn to cefepime + flagyl yesterday Pt intubated, sedated, arousable to voice Objective Last 24 Hour Vital Signs Date Time Temp Pulse Resp B/P (MAP) Pulse Ox O2 Delivery O2 Flow Rate FiO2 12/06/17 15:05 76 23 40 12/06/17 13:00 79 23 40 12/06/17 12:30 50 12/06/17 12:27 82 21 40 12/06/17 12:00 98.9 87 18 146/59 100 Mechanical Ventilator 50 98.9 12/06/17 12:00 76 12/06/17 12:00 50 12/06/17 11:00 79 18 144/53 98 Mechanical Ventilator 50 12/06/17 10:29 75 22 40 12/06/17 10:00 77 18 139/58 93 Mechanical Ventilator 50 12/06/17 09:00 76 18 150/63 96 Mechanical Ventilator 50 12/06/17 08:54 73 22 40 12/06/17 08:25 73 12/06/17 08:00 50 12/06/17 08:00 99.1 76 18 164/63 98 Mechanical Ventilator 50 99.1 12/06/17 07:00 78 18 136/57 98 Mechanical Ventilator 50 12/06/17 06:52 81 22 40 12/06/17 06:00 84 19 114/55 97 Mechanical Ventilator 50 12/06/17 05:00 77 18 114/55 94 Mechanical Ventilator 50 12/06/17 04:53 77 18 40 12/06/17 04:34 77 12/06/17 04:00 99.5 82 18 114/55 98 Mechanical Ventilator 50 99.5 12/06/17 04:00 50 12/06/17 03:27 90 19 40 12/06/17 03:00 86 18 114/55 100 Mechanical Ventilator 50 12/06/17 02:16 99.6 12/06/17 02:00 87 18 114/55 96 Mechanical Ventilator 50 12/06/17 01:17 100.6 12/06/17 01:10 88 18 40 12/06/17 01:09 87 18 97 Mechanical Ventilator 40 12/06/17 01:00 84 18 147/59 92 Mechanical Ventilator 40 12/06/17 00:00 40 12/06/17 00:00 99.5 88 18 131/60 93 Mechanical Ventilator 40 99.5 12/05/17 23:29 85 12/05/17 23:08 86 18 40 12/05/17 23:00 86 18 145/60 97 Mechanical Ventilator 40 12/05/17 22:00 86 18 128/57 97 Mechanical Ventilator 40 12/05/17 21:30 87 18 40 12/05/17 21:00 88 19 134/60 96 Mechanical Ventilator 40 12/05/17 20:00 40 12/05/17 20:00 81 12/05/17 20:00 98.5 81 18 150/64 100 Mechanical Ventilator 40 98.5 12/05/17 20:00 81 18 40 12/05/17 19:00 82 18 172/71 100 Mechanical Ventilator 40 12/05/17 18:00 84 18 160/64 100 Mechanical Ventilator 40 12/05/17 17:00 82 18 159/69 100 Mechanical Ventilator 40 12/05/17 16:57 81 19 40 Intake and Output 12/05/17 12/06/17 19:00 07:00 Intake Total 1259.167 ml 1187.5 ml Output Total 180 ml 325 ml Balance 1079.167 ml 862.5 ml Intake Free Water 50 ml IV Total 1089.167 ml 847.5 ml Tube Feeding 30 ml 300 ml Other 90 ml 40 ml Output Urine Total 180 ml 325 ml Laboratory Tests 12/05/17 20:30: Vancomycin Level Trough 28.7H 12/05/17 21:25: Urine Eosinophils None seen, Urine Random Sodium 57, Urine Creatinine 51.5 12/06/17 04:00: White Blood Count 9.3, Red Blood Count 3.82L, Hemoglobin 11.4L, Hematocrit 35.5L , Mean Corpuscular Volume 93, Mean Corpuscular Hemoglobin 29.8, Mean Corpuscular Hemoglobin Concent 32.0, Red Cell Distribution Width 15.0H, Platelet Count 278, Mean Platelet Volume 7.0, Neutrophils (%) (Auto) 60.4, Lymphocytes (%) (Auto) 24.2, Monocytes (%) (Auto) 12.9H, Eosinophils (%) (Auto) 1.8, Basophils (%) (Auto) 0.7, Sodium Level 137, Potassium Level 3.9, Chloride Level 99, Carbon Dioxide Level 32, Anion Gap 6, Blood Urea Nitrogen 22H, Creatinine 4.4H, Estimat Glomerular Filtration Rate 12.4, Glucose Level 158H, Uric Acid 5.7, Calcium Level 8.5, Phosphorus Level 2.5, Magnesium Level 1.7L, Total Bilirubin 2.3H, Direct Bilirubin 2.1H, Aspartate Amino Transf (AST/SGOT) 495H, Alanine Aminotransferase (ALT/SGPT) 317H, Alkaline Phosphatase 233H, Total Creatine Kinase 64, Total Protein 6.6, Albumin 2.1L, Globulin 4.5, Albumin /Globulin Ratio 0.5L, Digoxin Level 1.3 12/06/17 07:00: Arterial Blood pH 7.440, Arterial Blood Partial Pressure CO2 51.8H, Arterial Blood Partial Pressure O2 175.3H, Arterial Blood HCO3 35.0H, Arterial Blood Oxygen Saturation 99.1H, Arterial Blood Base Excess 9.5, Doroteo Test Positive 12/06/17 12:40: Urine Color Yellow, Urine Appearance Clear, Urine pH 6.5, Urine Specific [place] 1.005, Urine Protein 3+H, Urine Glucose (UA) Negative, Urine Ketones Negative, Urine Occult Blood 5+H, Urine Nitrite Negative, Urine Bilirubin Negative, Urine Urobilinogen 1H, Urine Leukocyte Esterase 3+H, Urine RBC 20-30H , Urine WBC 15-20H, Urine Squamous Epithelial Cells Few, Urine Bacteria Few, Urine Eosinophils None seen, Urine Random Sodium 54, Urine Potassium Timed 24 Height (Feet): 5 Height (Inches): 8.00 Weight (Pounds): 456 Objective General: intubated, sedated, morbidly obese Head: normocephalic, without obvious abnormality, atraumatic Eyes: conjunctivae/corneas clear. PERRL, EOM's intact Throat: lips, mucosa, and tongue normal. MMM Neck: supple, symmetrical, trachea midline, and no JVD Lungs:+rhonchi b/l Heart: regular rate and rhythm, S1, S2 normal, no murmur, click, rub or gallop Abdomen: soft, non-tender, non-distended, bowel sounds normal Extremities: extremities normal, atraumatic, no cyanosis or edema Pulses: 2+ and symmetric Skin: skin color, texture, turgor normal; no rashes or lesions Neurologic: sedated Cassie Bolivar M.D. Dec 06, 2017 16:00
--- NOTE | 2017-12-06 17:15 | Infectious Diseases Prog Note ---
Assessment/Plan Assessment/Plan ASSESSMENT AND PLAN: 1. sepsis, leukocytosis, fevers, recent mrsa pna, ? aspiration pna, vent, elevated co2, ams, arf, respiratory failure, + bc -gram +, ?uti, + ua - change abx to zyvox, cefepime and flagyl - discontinue vancomycin secondary to arf - check sputum culture, labs and chest x-ray, blood culture id/sensitivities , check urine culture - continue vent support, icu care - d/w Dr. Matthews - d/w pharmacy - leukocytosis and fevers better 2. Respiratory failure, on vent, no pressors - treatment per primary and pulmonary 3. Vargas. 4. The patient has history of hypertension. 5. Diabetes. 6. Hyperlipidemia. 7. Blood sugar and blood pressure treatment per primary. 8. History of asthma. 9. History of myocardial infarction and coronary artery disease. 10. History of heart failure/congestive heart failure. 11. History of gout. 12. History of sepsis and pneumonia. 13. History of muscle weakness. 14. Gastroesophageal reflux disease. 15. Past orders were noted. 16. Allergies are negative. 17. Family History is noncontributory. 18. Social history is negative. 19. MAR was noted. 20. Case discussed with RN. 21. Continue treatment per primary and consultants. 22. Case discussed with Dr. Matthews. 23. Case discussed with RN in the ICU. 24. Orders were noted and entered. 25. Notes and records were noted. 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 Subjective Constitutional: Reports: fever - fever yesterday , fatigue, other - on vent, respiratory failure, alert and responsive HEENT: Reports: congestion Respiratory: Reports: shortness of breath Cardiovascular: Denies: chest pain Gastrointestinal/Abdominal: Denies: nausea, vomiting, diarrhea Genitourinary: Reports: other - + vargas Neurologic: Denies: headache Psychiatric: Denies: depression Skin: Denies: rash Hematologic: Denies: bleeding Musculoskeletal: Denies: pain Allergies: Coded Allergies: ASPARTAME (Verified Allergy, Unknown, 11/30/17) Headache Objective Vital Signs Last 24 Hour Vital Signs Date Time Temp Pulse Resp B/P (MAP) Pulse Ox O2 Delivery O2 Flow Rate FiO2 12/06/17 16:47 68 18 40 12/06/17 16:00 73 18 158/86 98 Mechanical Ventilator 50 12/06/17 15:35 86 12/06/17 15:05 76 23 40 12/06/17 15:00 78 19 151/59 97 Mechanical Ventilator 50 12/06/17 14:00 77 19 140/54 98 Mechanical Ventilator 50 12/06/17 13:00 85 20 165/64 99 Mechanical Ventilator 50 12/06/17 13:00 79 23 40 12/06/17 12:30 50 12/06/17 12:27 82 21 40 12/06/17 12:00 98.9 87 18 146/59 100 Mechanical Ventilator 50 98.9 12/06/17 12:00 76 12/06/17 12:00 50 12/06/17 11:00 79 18 144/53 98 Mechanical Ventilator 50 12/06/17 10:29 75 22 40 12/06/17 10:00 77 18 139/58 93 Mechanical Ventilator 50 12/06/17 09:00 76 18 150/63 96 Mechanical Ventilator 50 12/06/17 08:54 73 22 40 12/06/17 08:25 73 12/06/17 08:00 50 12/06/17 08:00 99.1 76 18 164/63 98 Mechanical Ventilator 50 99.1 12/06/17 07:00 78 18 136/57 98 Mechanical Ventilator 50 12/06/17 06:52 81 22 40 12/06/17 06:00 84 19 114/55 97 Mechanical Ventilator 50 12/06/17 05:00 77 18 114/55 94 Mechanical Ventilator 50 12/06/17 04:53 77 18 40 12/06/17 04:34 77 12/06/17 04:00 99.5 82 18 114/55 98 Mechanical Ventilator 50 99.5 12/06/17 04:00 50 12/06/17 03:27 90 19 40 12/06/17 03:00 86 18 114/55 100 Mechanical Ventilator 50 12/06/17 02:16 99.6 12/06/17 02:00 87 18 114/55 96 Mechanical Ventilator 50 12/06/17 01:17 100.6 12/06/17 01:10 88 18 40 12/06/17 01:09 87 18 97 Mechanical Ventilator 40 12/06/17 01:00 84 18 147/59 92 Mechanical Ventilator 40 12/06/17 00:00 40 12/06/17 00:00 99.5 88 18 131/60 93 Mechanical Ventilator 40 99.5 12/05/17 23:29 85 12/05/17 23:08 86 18 40 12/05/17 23:00 86 18 145/60 97 Mechanical Ventilator 40 12/05/17 22:00 86 18 128/57 97 Mechanical Ventilator 40 12/05/17 21:30 87 18 40 12/05/17 21:00 88 19 134/60 96 Mechanical Ventilator 40 12/05/17 20:00 40 12/05/17 20:00 81 12/05/17 20:00 98.5 81 18 150/64 100 Mechanical Ventilator 40 98.5 12/05/17 20:00 81 18 40 12/05/17 19:00 82 18 172/71 100 Mechanical Ventilator 40 12/05/17 18:00 84 18 160/64 100 Mechanical Ventilator 40 12/05/17 17:00 82 18 159/69 100 Mechanical Ventilator 40 Height (Feet): 5 Height (Inches): 8.00 Weight (Pounds): 456 General Appearance: other - intubated, HEENT: normocephalic, atraumatic, anicteric, mucous membranes moist Respiratory/Chest: crackles/rales, rhonchi - bilaterally Cardiovascular: normal rate, regular rhythm, no gallop/murmur, no JVD Abdomen: normal bowel sounds, soft, non tender, no organomegaly Genitourinary: other - + vargas - decreased Extremities: no cyanosis Skin: no rash Neurologic/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 The heart is enlarged. Lungs and pleural spaces are clear. Impression: Satisfactory endotracheal intubation Other findings as noted Chest x-ray - 12/06 - A single view chest radiograph was obtained. Findings: Endotracheal tube and nasogastric tubes are in good position unchanged. Lung volumes remain low. Lungs are essentially clear. Heart is enlarged. Bones are unremarkable. IMPRESSION: No acute findings Microbiology Date/Time Source Procedure Growth Status 12/04/17 09:30 Blood Blood Culture - Preliminary Resulted 12/04/17 08:30 Nasal Nares MRSA Culture - Final Staphylococcus Aureus - Mrsa Complete 12/04/17 08:30 Rectum VRE Culture - Final Enterococcus Faecium - Vre Complete Microbiology Date/Time Source Procedure Growth Status 12/04/17 09:30 Blood Blood Culture - Preliminary Resulted 12/04/17 09:30 Blood Blood Culture - Preliminary NO GROWTH AFTER 24 HOURS Resulted 12/04/17 08:30 Nasal Nares MRSA Culture - Final Staphylococcus Aureus - Mrsa Complete 12/04/17 08:30 Rectum VRE Culture - Final Enterococcus Faecium - Vre Complete Laboratory Tests Test 12/05/17 20:30 12/05/17 21:25 12/06/17 04:00 12/06/17 07:00 Vancomycin Level Trough 28.7 ug/mL (5.0-12.0) H Urine Eosinophils None seen Urine Random Sodium 57 mmol/L (20-110) Urine Creatinine 51.5 MG/DL (30.0-125.0) White Blood Count 9.3 K/UL (4.8-10.8) Red Blood Count 3.82 M/UL (4.20-5.40) L Hemoglobin 11.4 G/DL (12.0-16.0) L Hematocrit 35.5 % (37.0-47.0) L Mean Corpuscular Volume 93 FL (80-99) Mean Corpuscular Hemoglobin 29.8 PG (27.0-31.0) Mean Corpuscular Hemoglobin Concent 32.0 G/DL (32.0-36.0) Red Cell Distribution Width 15.0 % (11.6-14.8) H Platelet Count 278 K/UL (150-450) Mean Platelet Volume 7.0 FL (6.5-10.1) Neutrophils (%) (Auto) 60.4 % (45.0-75.0) Lymphocytes (%) (Auto) 24.2 % (20.0-45.0) Monocytes (%) (Auto) 12.9 % (1.0-10.0) H Eosinophils (%) (Auto) 1.8 % (0.0-3.0) Basophils (%) (Auto) 0.7 % (0.0-2.0) Sodium Level 137 MMOL/L (136-145) Potassium Level 3.9 MMOL/L (3.5-5.1) Chloride Level 99 MMOL/L (98-107) Carbon Dioxide Level 32 MMOL/L (21-32) Anion Gap 6 mmol/L (5-15) Blood Urea Nitrogen 22 mg/dL (7-18) H Creatinine 4.4 MG/DL (0.55-1.30) H Estimat Glomerular Filtration Rate 12.4 mL/min (>60) Glucose Level 158 MG/DL (74-106) H Uric Acid 5.7 MG/DL (2.6-7.2) Calcium Level 8.5 MG/DL (8.5-10.1) Phosphorus Level 2.5 MG/DL (2.5-4.9) Magnesium Level 1.7 MG/DL (1.8-2.4) L Total Bilirubin 2.3 MG/DL (0.2-1.0) H Direct Bilirubin 2.1 MG/DL (0.0-0.3) H Aspartate Amino Transf (AST/SGOT) 495 U/L (15-37) H Alanine Aminotransferase (ALT/SGPT) 317 U/L (12-78) H Alkaline Phosphatase 233 U/L (46-116) H Total Creatine Kinase 64 U/L (26-308) Total Protein 6.6 G/DL (6.4-8.2) Albumin 2.1 G/DL (3.4-5.0) L Globulin 4.5 g/dL Albumin/Globulin Ratio 0.5 (1.0-2.7) L Digoxin Level 1.3 NG/ML (0.9-2.0) Arterial Blood pH 7.440 (7.350-7.450) Arterial Blood Partial Pressure CO2 51.8 mmHg (35.0-45.0) H Arterial Blood Partial Pressure O2 175.3 mmHg (75.0-100.0) H Arterial Blood HCO3 35.0 mmol/L (22.0-26.0) H Arterial Blood Oxygen Saturation 99.1 % (92.0-98.0) H Arterial Blood Base Excess 9.5 Doroteo Test Positive Test 12/06/17 12:40 Urine Color Yellow Urine Appearance Clear Urine pH 6.5 (4.5-8.0) Urine Specific [place] 1.005 (1.005-1.035) Urine Protein 3+ (NEGATIVE) H Urine Glucose (UA) Negative (NEGATIVE) Urine Ketones Negative (NEGATIVE) Urine Occult Blood 5+ (NEGATIVE) H Urine Nitrite Negative (NEGATIVE) Urine Bilirubin Negative (NEGATIVE) Urine Urobilinogen 1 MG/DL (0.0-1.0) H Urine Leukocyte Esterase 3+ (NEGATIVE) H Urine RBC 20-30 /HPF (0 - 2) H Urine WBC 15-20 /HPF (0 - 2) H Urine Squamous Epithelial Cells Few /LPF (NONE/OCC) Urine Bacteria Few /HPF (NONE) Urine Eosinophils None seen Urine Random Sodium 54 mmol/L (20-110) Urine Potassium Timed 24 mmol/L (12-62) Current Medications Medications (Trade) Dose Ordered Sig/Felipe Route PRN Reason Start Time Stop Time Status Last Admin Dose Admin Acetaminophen (Tylenol) 650 mg Q4H PRN ORAL Fever (temp>100.5F) 12/04/17 10:15 01/03/18 10:14 12/06/17 01:17 Albuterol/ Ipratropium (Albuterol/ Ipratropium) 3 ml Q4H PRN HHN Shortness of Breath 12/04/17 10:15 12/09/17 10:14 12/06/17 01:07 Allopurinol (Zyloprim) 100 mg DAILY ORAL 12/05/17 09:00 01/04/18 08:59 12/06/17 08:46 Cefepime HCl 1 gm/ Dextrose 55 ml @ 110 mls/hr Q24H IVPB 12/07/17 06:00 12/14/17 05:59 Dextrose (Dextrose 50%) 25 ml STAT PRN IV Hypoglycemia 12/04/17 10:15 01/03/18 10:14 Dextrose (Dextrose 50%) 50 ml STAT PRN IV Hypoglycemia 12/04/17 10:15 01/03/18 10:14 Heparin Sodium (Porcine) (Heparin 5000 units/ml) 5,000 units EVERY 12 HOURS SUBQ 12/04/17 21:00 01/03/18 20:59 12/06/17 08:49 Insulin Aspart (NovoLOG) EVERY 6 HOURS SUBQ 12/06/17 12:00 01/04/18 11:29 12/06/17 11:20 Linezolid 300 ml @ 300 mls/hr Q12HR IVPB 12/06/17 18:00 12/13/17 17:59 Lorazepam (Ativan 2mg/ml 1ml) 2 mg Q2H PRN IV agitation 12/04/17 10:15 12/11/17 10:14 12/06/17 13:44 Metronidazole 100 ml @ 100 mls/hr Q8HR IVPB 12/04/17 22:00 12/11/17 21:59 12/06/17 14:12 Morphine Sulfate (Morphine Sulfate) 4 mg Q4H PRN IVP Severe Pain (Pain Scale 7-10) 12/04/17 10:15 12/11/17 10:14 Nitroglycerin (Ntg) 0.4 mg Q5M PRN SL Prn Chest Pain 12/04/17 10:15 01/03/18 10:14 Ondansetron HCl (Zofran) 4 mg Q6H PRN IVP Nausea & Vomiting 12/04/17 10:15 01/03/18 10:14 12/06/17 06:03 Pantoprazole (Protonix) 40 mg DAILY IVP 12/06/17 09:00 01/05/18 08:59 12/06/17 08:46 Sodium Chloride 1,000 ml @ 75 mls/hr [id number] IV 12/06/17 16:30 01/03/18 16:29 JUNI ABDUL Dec 06, 2017 17:15
[2017-12-06] MEDS: Linezolid 600mg/300mL Premix IVPB SCH (17:36)
--- NOTE | 2017-12-06 17:46 | Cardiology Report ---
APPROVED REPORT EKG Measurement Heart [id number] VT [id number] Normal sinus rhythm Nonspecific T wave abnormality Abnormal ECG
[2017-12-06 21:38] LABS: INR 1.1 (0.9-1.1)
[2017-12-07] VITALS (24 sets, daily range): BP systolic 100–146; BP diastolic 45–104
[2017-12-07 04:46] LABS: BASOPHILS % (AUTO) 2.1 % (0.0-2.0); EOSINOPHILS % (AUTO) 4.6 % (0.0-3.0); HEMATOCRIT 36.3 % (37.0-47.0); HEMOGLOBIN 11.4 G/DL (12.0-16.0); LYMPHOCYTES % (AUTO) 22.8 % (20.0-45.0); MEAN CORPUSCULAR VOLUME 94 FL (80-99); MONOCYTES % (AUTO) 10.4 % (1.0-10.0); NEUTROPHILS % (AUTO) 60.2 % (45.0-75.0); PLATELET COUNT 280 K/UL (150-450); RED BLOOD COUNT 3.88 M/UL (4.20-5.40); RED CELL DISTRIBUTION WIDTH 14.9 % (11.6-14.8); WHITE BLOOD COUNT 7.9 K/UL (4.8-10.8)
[2017-12-07 05:22] LABS: ALANINE AMINOTRANSFERASE 256 U/L (12-78); ALBUMIN 1.9 G/DL (3.4-5.0); ALBUMIN/GLOBULIN RATIO 0.4 (1.0-2.7); ALKALINE PHOSPHATASE 233 U/L (46-116); ANION GAP 6 mmol/L (5-15); ASPARTATE AMINO TRANSFERASE 346 U/L (15-37); BILIRUBIN,TOTAL 1.7 MG/DL (0.2-1.0); BLOOD UREA NITROGEN 29 mg/dL (7-18); CALCIUM 8.9 MG/DL (8.5-10.1); CARBON DIOXIDE 31 MMOL/L (21-32); CHLORIDE 97 MMOL/L (98-107); CREATININE 5.6 MG/DL (0.55-1.30); PHOSPHORUS 2.3 MG/DL (2.5-4.9); POTASSIUM 3.9 MMOL/L (3.5-5.1); SODIUM 134 MMOL/L (136-145)
[2017-12-07 05:54] LABS: BILIRUBIN,DIRECT 1.3 MG/DL (0.0-0.3)
[2017-12-07] MEDS: Cefepime 1gm/D5W 55ml IVPB SCH ×2 (06:03)
[2017-12-07] MEDS: NovoLOG Insulin Flexpen SUBQ SCH ×4 (06:04→18:00)
[2017-12-07] MEDS: LORazepam Inj 2mg/ml 1ml IV PRN ×3 (06:05→19:32)
[2017-12-07] MEDS: Morphine Sulfate 4mg/ml Inj IVP PRN ×2 (06:06→19:32)
--- NOTE | 2017-12-07 07:15 | Consultation ---
DATE OF CONSULTATION: 12/06/2017 NOTE: POOR AUDIO HEMATOLOGY/ONCOLOGY CONSULTATION CONSULTING PHYSICIAN: Jem Palmer M.D. REQUESTING PHYSICIANS: Cassie Bolivar M.D. and Brittany Edmond M.D. REASON FOR CONSULTATION: Management of coagulopathy and anemia. IDENTIFYING DATA: Dear Dr. Edmond, The patient is a pleasant 57-year-old female with past medical history significant for GERD, diabetes mellitus, hypertension, who presents to the hospital with shock, respiratory failure, required intubation, and altered for the past several days, required intubation, on BiPAP. Currently, the patient is in the ICU, noted to be coagulopathic, difficult to obtain any further history from the patient. Hematology Service was consulted. PAST MEDICAL HISTORY: As noted above, diabetes mellitus, GERD, obesity hypoventilation syndrome, and asthma. ALLERGIES: Aspartame. MEDICATIONS: Allopurinol, aspirin, Lipitor, , digoxin, ferrous sulfate, Lasix, glipizide, . FAMILY HISTORY: Noncontributory. SOCIAL HISTORY: No alcohol, tobacco, or illicit drug use. REVIEW OF SYSTEMS: Difficult to obtain. The patient is intubated. PHYSICAL EXAMINATION: VITAL SIGNS: Reviewed. GENERAL: No acute distress. PULMONARY: Decreased breath sounds. CARDIOVASCULAR: Regular rate. No S3 or S4. ABDOMEN: Soft, nontender, and nondistended. EXTREMITIES: No cyanosis, swelling, or edema noted. She is on a mechanical ventilator. NEUROLOGIC: Nonfocal, sedated. LABORATORY AND DIAGNOSTIC DATA: WBC 9.3, hemoglobin 11.2, hematocrit 35, and platelet count 278,000. INR of 1.2 and PT of 12.1. Phosphorus 1.7. BUN of 22, creatinine . ASSESSMENT AND RECOMMENDATION: 1. Coagulopathy, potentially secondary to liver problem, liver disease. 2. The patient has transaminitis as well as elevated . Continue to closely monitor for improvement. Albumin of 2.1 as well. vitamin K . 3. Anemia due to underlying chronic disease. Continue to closely monitor. Anemia workup has been reviewed. 4. Transaminitis, potentially secondary to shock liver versus other cause. 5. Acute tubular necrosis with elevated creatinine. Continue to closely monitor. 6. Likely obesity hypoventilation syndrome. 7. Respiratory failure, status post intubation. 8. Leukocytosis, potentially secondary to infection, currently improved. 9. Acute kidney injury. The patient's creatinine within normal limits on admission, potentially secondary to shock. I appreciate the consultation. Jem Palmer M.D. DR: ISAIAH JOB#: [id number] CC:
[2017-12-07] MEDS: Pantoprazole Inj IVP SCH (08:31)
[2017-12-07] MEDS: Linezolid 600mg/300mL Premix IVPB SCH ×2 (08:31→21:00)
[2017-12-07] MEDS: Allopurinol 100mg Tab ORAL SCH (08:31)
[2017-12-07] MEDS: Heparin 5000 units/ml inj SUBQ SCH ×2 (08:34→21:00)
[2017-12-07] MEDS ORDERED: Heparin 2000 units/Ns 1000ml IV PRN (10:00)
[2017-12-07] MEDS ORDERED: Lidocaine 1% Plain 30 ml INJ PRN (10:00)
--- NOTE | 2017-12-07 10:50 | Pulmonolgy Critical Care Note ---
Critical Care - Asmt/Plan Problems: (1) Acute respiratory failure (2) Bacteremia (3) ATN (acute tubular necrosis) (4) Acute encephalopathy (5) Aspiration pnemonia vs HCAP (6) Likely obesity hypoventilation syndrome (7) Elevated liver enzymes Respiratory: monitor respiratory rate, CXR Cardiac: continue to monitor HR/BP Renal: F/U I&O, keep IV fluid, check electrolytes, other - for dialysis today Infectious Disease: check cultures, continue antibiotics Gastrointestinal: continue feedings/current rate Endocrine: monitor blood sugar, continue sliding scale insulin Hematologic: transfuse if hgb<8.5 Neurologic: PRN Ativan, keep patient comfortable Affect: PRN ativan Prophylaxis: Protonix Disposition: keep in ICU Notes 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: 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, renal, ID Discussed with: nurses, consultants, casework supervisornet development manager - Objective Last 24 Hour Vital Signs Date Time Temp Pulse Resp B/P (MAP) Pulse Ox O2 Delivery O2 Flow Rate FiO2 12/07/17 09:21 72 19 30 12/07/17 09:00 67 18 125/51 95 Mechanical Ventilator 30 12/07/17 08:31 98.4 12/07/17 08:00 30 12/07/17 08:00 98.4 64 18 123/53 94 Mechanical Ventilator 30 98.4 12/07/17 08:00 63 12/07/17 07:21 70 20 30 12/07/17 07:00 98.4 64 18 121/50 94 Mechanical Ventilator 30 98.4 12/07/17 06:00 68 18 125/53 94 Mechanical Ventilator 30 12/07/17 05:29 74 20 30 12/07/17 05:00 73 18 130/51 94 Mechanical Ventilator 30 12/07/17 04:00 98.8 64 18 125/49 96 Mechanical Ventilator 30 98.8 12/07/17 04:00 65 12/07/17 04:00 30 12/07/17 03:25 70 18 30 12/07/17 03:00 70 18 124/48 95 Mechanical Ventilator 30 12/07/17 02:00 75 18 142/52 95 Mechanical Ventilator 30 12/07/17 01:24 72 18 30 12/07/17 01:00 71 18 125/45 96 Mechanical Ventilator 30 12/07/17 00:00 98.4 64 18 126/47 96 Mechanical Ventilator 30 98.4 12/07/17 00:00 30 12/06/17 23:03 69 18 30 12/06/17 23:00 66 18 135/49 96 Mechanical Ventilator 30 12/06/17 22:00 72 18 119/48 95 Mechanical Ventilator 30 12/06/17 21:16 76 18 30 12/06/17 21:00 76 18 135/52 97 Mechanical Ventilator 30 12/06/17 20:00 80 12/06/17 20:00 98.6 74 18 128/49 97 Mechanical Ventilator 30 98.6 12/06/17 20:00 30 12/06/17 19:16 67 18 30 12/06/17 19:00 68 18 129/60 97 Mechanical Ventilator 30 12/06/17 18:00 98.1 66 18 135/60 96 Mechanical Ventilator 30 98.1 12/06/17 17:31 30 12/06/17 17:00 69 18 150/56 97 Mechanical Ventilator 30 12/06/17 16:47 68 18 40 12/06/17 16:00 73 18 158/86 98 Mechanical Ventilator 50 12/06/17 15:35 86 12/06/17 15:05 76 23 40 12/06/17 15:00 78 19 151/59 97 Mechanical Ventilator 50 12/06/17 14:00 77 19 140/54 98 Mechanical Ventilator 50 12/06/17 13:00 85 20 165/64 99 Mechanical Ventilator 50 12/06/17 13:00 79 23 40 12/06/17 12:30 50 12/06/17 12:27 82 21 40 12/06/17 12:00 98.9 87 18 146/59 100 Mechanical Ventilator 50 98.9 12/06/17 12:00 76 12/06/17 12:00 50 12/06/17 11:00 79 18 144/53 98 Mechanical Ventilator 50 Status: awake Condition: critical HEENT: atraumatic Lungs: clear Heart: HR/BP stable Abdomen: soft, non-tender, active bowel sounds Extremities: edema Decubiti: location Micro: Microbiology Date/Time Source Procedure Growth Status 12/05/17 14:40 Sputum Gram Stain Pending Resulted 12/05/17 14:40 Sputum Sputum Culture - Preliminary NORMAL UPPER RESPIRATORY YINA AT 24 ... Resulted 12/06/17 12:40 Urine,Clean Catch Urine Culture - Preliminary Resulted Accucheck: 160 Critical Care - Subjective ROS Limited/Unobtainable: No ICU Day: 3 Condition: critical EKG Rhythm: Sinus Rhythm FI02: 30 Vent Support Breath Rate: 16 Vent Support Mode: AC Vent Tidal Volume: 600 Sputum Amount: Small PEEP: 5.0 PIP: 39 Tube Feeding Amount: 30 I&O: Intake and Output 12/06/17 12/07/17 19:00 07:00 Intake Total 1645 ml 2425 ml Output Total 355 ml 395 ml Balance 1290 ml 2030 ml Intake Free Water 110 ml IV Total 1225 ml 1955 ml Tube Feeding 360 ml 360 ml Other 60 ml Output Urine Total 355 ml 395 ml CXR: no new infiltrate ET-Tube: 7.5 ET Position: 25 Labs: Laboratory Tests Test 12/06/17 12:40 12/06/17 20:55 12/07/17 04:00 12/07/17 09:10 Urine Color Yellow Urine Appearance Clear Urine pH 6.5 (4.5-8.0) Urine Specific [place] 1.005 (1.005-1.035) Urine Protein 3+ (NEGATIVE) H Urine Glucose (UA) Negative (NEGATIVE) Urine Ketones Negative (NEGATIVE) Urine Occult Blood 5+ (NEGATIVE) H Urine Nitrite Negative (NEGATIVE) Urine Bilirubin Negative (NEGATIVE) Urine Urobilinogen 1 MG/DL (0.0-1.0) H Urine Leukocyte Esterase 3+ (NEGATIVE) H Urine RBC 20-30 /HPF (0 - 2) H Urine WBC 15-20 /HPF (0 - 2) H Urine Squamous Epithelial Cells Few /LPF (NONE/OCC) Urine Bacteria Few /HPF (NONE) Urine Eosinophils None seen Urine Random Sodium 54 mmol/L (20-110) Urine Potassium Timed 24 mmol/L (12-62) Prothrombin Time 12.0 SEC (9.30-11.50) H Prothromb Time International Ratio 1.1 (0.9-1.1) White Blood Count 7.9 K/UL (4.8-10.8) Red Blood Count 3.88 M/UL (4.20-5.40) L Hemoglobin 11.4 G/DL (12.0-16.0) L Hematocrit 36.3 % (37.0-47.0) L Mean Corpuscular Volume 94 FL (80-99) Mean Corpuscular Hemoglobin 29.4 PG (27.0-31.0) Mean Corpuscular Hemoglobin Concent 31.4 G/DL (32.0-36.0) L Red Cell Distribution Width 14.9 % (11.6-14.8) H Platelet Count 280 K/UL (150-450) Mean Platelet Volume 7.1 FL (6.5-10.1) Neutrophils (%) (Auto) 60.2 % (45.0-75.0) Lymphocytes (%) (Auto) 22.8 % (20.0-45.0) Monocytes (%) (Auto) 10.4 % (1.0-10.0) H Eosinophils (%) (Auto) 4.6 % (0.0-3.0) H Basophils (%) (Auto) 2.1 % (0.0-2.0) H Sodium Level 134 MMOL/L (136-145) L Potassium Level 3.9 MMOL/L (3.5-5.1) Chloride Level 97 MMOL/L (98-107) L Carbon Dioxide Level 31 MMOL/L (21-32) Anion Gap 6 mmol/L (5-15) Blood Urea Nitrogen 29 mg/dL (7-18) H Creatinine 5.6 MG/DL (0.55-1.30) H Estimat Glomerular Filtration Rate 9.5 mL/min (>60) Glucose Level 167 MG/DL (74-106) H Calcium Level 8.9 MG/DL (8.5-10.1) Phosphorus Level 2.3 MG/DL (2.5-4.9) L Magnesium Level 1.7 MG/DL (1.8-2.4) L Total Bilirubin 1.7 MG/DL (0.2-1.0) H Direct Bilirubin 1.3 MG/DL (0.0-0.3) H Aspartate Amino Transf (AST/SGOT) 346 U/L (15-37) H Alanine Aminotransferase (ALT/SGPT) 256 U/L (12-78) H Alkaline Phosphatase 233 U/L (46-116) H Total Protein 7.0 G/DL (6.4-8.2) Albumin 1.9 G/DL (3.4-5.0) L Globulin 5.1 g/dL Albumin/Globulin Ratio 0.4 (1.0-2.7) L Arterial Blood pH 7.414 (7.350-7.450) Arterial Blood Partial Pressure CO2 52.6 mmHg (35.0-45.0) H Arterial Blood Partial Pressure O2 102.0 mmHg (75.0-100.0) H Arterial Blood HCO3 32.9 mmol/L (22.0-26.0) H Arterial Blood Oxygen Saturation 97.5 % (92.0-98.0) Arterial Blood Base Excess 7.1 Doroteo Test Positive Yariel Malone MD Dec 07, 2017 10:50
--- NOTE | 2017-12-07 10:57 | Cardiology Report ---
APPROVED REPORT EXAM: Two-dimensional and M-mode echocardiogram with Doppler and color Doppler. INDICATION LV FUNCTION M-Mode DIMENSIONS IVSd1.4 (0.7-1.1cm)Left Atrium (MM)4.6 (1.6-4.0cm) LVDd5.4 (3.5-5.6cm)Aortic Root3.4 (2.0-3.7cm) PWd1.4 (0.7-1.1cm)Aortic Cusp Exc.1.8 (1.5-2.0cm) IVSs1.7 cm LVDs3.6 (2.5-4.0cm) PWs1.6 cm Normal left ventricular chamber size, systolic function and wall motion to extent visualized. Left ventricular ejection fraction estimated to be 55-60%. Mild left ventricular hypertrophy by 2-.D. No evidence of pericardial effusion. All other cardiac chamber sizes are within normal limits. Focal aortic valve sclerosis with adequate cusp excursion. moderatly Thickened mitral valve leaflets with normal excursion. Mitral annulus and aortic root calcification. pulmonic valve not well visualized . Normal tricuspid valve structure. IVC at size 1.7 without physiologic collapse . A color flow and spectral Doppler study was performed and revealed: No aortic regurgitation. Trace mitral regurgitation. Normal left ventricular diastolic function . Trace tricuspid regurgitation.
--- NOTE | 2017-12-07 11:32 | Pre-Procedure Note/Attestation ---
Pre-Procedure Note/Attestation Complete Prior to Procedure Planned Procedure: not applicable Procedure Narrative: temporary dialysis catheter placement Indications for Procedure Pre-Operative Diagnosis: need for hemodialysis Attestation I attest that I discussed the nature of the procedure; its benefits; risks and complications; and alternatives (and the risks and benefits of such alternatives ), prior to the procedure, with the patient (or the patient's legal customer development representative). I attest that, if there was a reasonable possibility of needing a blood transfusion, the patient (or the patient's legal customer development representative) was given the [facility] standardized written summary, pursuant to the [place] Blood Safety Act ([place] Health and Safety Code # 1645, as amended). I attest that I re-evaluated the patient just prior to the surgery and that there has been no change in the patient's H&P, except as documented below: Sourav Falcon M.D. Dec 07, 2017 11:32
--- NOTE | 2017-12-07 11:42 | Diagnostic Imaging Report ---
Indication: Respiratory failure Comparison: 12/06/2017, 8:03 Portable frontal view of the chest obtained. FINDINGS/IMPRESSION: Endotracheal tube has been slightly advanced. Tip approximately 2 cm above the lucía. Otherwise, no significant interval change from the prior exam. This corresponds with the statrad preliminary report.
--- NOTE | 2017-12-07 11:42 | Operative Note - PDOC ---
Operative Note Operative Note Date of Operation/Procedure: Dec 07, 2017 Pre-op Diagnosis: need for hemodialysis Procedure: temporary dialysis catheter placement Post-op Diagnosis: same Post-op Diagnosis: same as pre-op Anesthesia: local Specimen: none Complications: none Estimated Blood Loss: minimal Implant(s) used?: Yes Indications for Procedure need for HD Description of Procedure successfully placed non-tunneled dialysis catheter via right IJ vein. No immediate complications Sourav Falcon M.D. Dec 07, 2017 11:42
--- NOTE | 2017-12-07 14:28 | Consultation ---
Consult Note Consult Note asked to evaluate for rising Cr patient seen in ICU intubated patient examined- data reviewed discussed with RN . Assessment/Plan (1) Acute respiratory failure (2) Bacteremia (3) ATN (acute tubular necrosis) (4) Acute encephalopathy (5) Aspiration pnemonia vs HCAP (6) Likely obesity hypoventilation syndrome (7) Elevated liver enzymes Plan: HD prasad- Monitor renal parameters- Avoid Nephrotoxics Urine studies per orders midodrine for low bp AGUSTIN CONTRERAS Dec 07, 2017 14:28
--- NOTE | 2017-12-07 14:30 | Diagnostic Imaging Report ---
Indication: Patient requires hemodialysis. Findings: After the indications, procedure, risks, complications, and alternatives of the procedure were explained, written informed consent was obtained. The neck was prepped with alcohol. All elements of maximal sterile barrier technique were followed including usage of a cap, mask, sterile gown, sterile gloves, hand hygiene and a large sterile sheet. 1% lidocaine was used to anesthetize the skin. Sonographic evaluation was performed demonstrating a patent and compressible jugular vein. Access was obtained under real-time ultrasound guidance using an 18 gauge needle and a digital image was saved in archive. An 0.035 wire was then advanced into the vein. Needle exchanged for a dilator. A temporary hemodialysis catheter was then advanced over the wire. Wire was removed. Catheter was secured to the skin using 2-0 Prolene suture. Both ports aspirate and flush easily. Catheter tip is noted at the region of the upper SVC. Additional findings unchanged from chest radiograph earlier the same day. There is no definite pneumothorax. Impression: Successful placement of right jugular hemodialysis catheter. Catheter cleared for immediate use.
--- NOTE | 2017-12-07 15:05 | Consultation ---
History of Present Illness General Date patient seen: Dec 07, 2017 Chief Complaint: Altered Level of Consciousness Reason for Consultation: trach Present Illness HPI Patient well known to me from recent admission/discharge. refer to prior notes for details. 57y/o female with pmh of morbid obesity, HTN, asthma, DM2, GERD, likely obesity hypoventilation syndrome, admission in Aug 2017 for septic shock and acute respiratory failure requiring intubation who presents with ALOC. Pt recently admitted 11/26-12/02 also for ALOC requiring intubation after she failed BiPAP. Pt was treated for HCAP with IV antibiotics. She improved and was successfully extubated. Once stabilized she was discharged to SNF. Per report, pt noted to be altered at SNF day of admission, more lethargic, poorly responsive except to painful stimuli. In ER, pt placed on BiPAP. ABG showed pH 7.1 and PCO2 150. She was emergently intubated and admitted to ICU. She is currently intubated but comfortable and responsive. Allergies: Coded Allergies: ASPARTAME (Verified Allergy, Unknown, 11/30/17) Headache Medication History Scheduled Allopurinol* (Allopurinol*), 300 MG NG DAILY Allopurinol* (Allopurinol*), 100 MG ORAL DAILY, (Reported) Amoxicillin/Potassium Clav 875-125* (Augmentin 875-125 Tablet*), 1 TAB ORAL TWICE A DAY Aspirin* (Aspirin*), 81 MG GT DAILY Atorvastatin Calcium* (Lipitor*), 20 MG GT BEDTIME Clotrimazole* (Lotrimin*), 1 APPLIC TOPIC THREE TIMES A DAY Cyanocobalamin (Vitamin B-12) (Vitamin B12), 2,500 MCG PO DAILY, (Reported) Digoxin* (Lanoxin*), 0.25 MG ORAL DAILY Docusate Sodium* (Docusil*), 100 MG ORAL TWICE A DAY, (Reported) Ferrous Sulfate (Feosol), 325 MG ORAL THREE TIMES A DAY Ferrous Sulfate* (Ferrous Sulfate*), 325 MG ORAL TWICE A DAY, (Reported) Fluticasone Propionate (Flonase Allergy Relief), 9.9 ML NS BID, (Reported) Furosemide* (Lasix*), 40 MG ORAL DAILY Furosemide* (Lasix*), 40 MG ORAL DAILY, (Reported) Gabapentin* (Gabapentin*), 600 MG ORAL QHS, (Reported) Glipizide (Glipizide Xl), 10 MG ORAL DAILY, (Reported) Guaifenesin (Mucinex), 1,200 MG ORAL TWICE A DAY Insulin Glargine (Lantus), 21 SUBQ BID, (Reported) Ipratropium/Albuterol Sulfate (DuoNeb 0.5-3(2.5)mg/3ml), 3 ML HHN Q6HR Lactobacillus Acidophilus (Acidophilus), 1 EACH PO BID, (Reported) Metoprolol Succinate* (Metoprolol Succinate*), 25 MG ORAL DAILY Pantoprazole* (Protonix*), 40 MG ORAL DAILY, (Reported) Vancomycin Hcl/D5w (Vancomycin-D5w 1 G/250 Ml), 250 MG IVPB Q12HR Scheduled PRN Acetaminophen* (Tylenol Extra Strength*), 500 MG ORAL Q12HR PRN for Mild Pain/ Temp > 100.5, (Reported) Albuterol Sulfate* (Albuterol Sulfate Hhn*), 3 ML INH Q4H PRN for Shortness of Breath, (Reported) Azelastine Hcl (Azelastine Hcl), 6 ML NASAL EVERY 12 HOURS PRN for ALLERGIC RHINITIS, (Reported) Bismuth Subsalicylate (Pepto-Bismol), 30 ML ORAL Q6H PRN Diphenoxylate Hcl/Atropine (Lomotil Tablet), 2 TAB ORAL for Diarrhea, (Reported) Guaifenesin* (Guaifenesin), 200 MG ORAL Q4H PRN Ipratropium/Albuterol Sulfate (DuoNeb 0.5-3(2.5)mg/3ml), 3 ML HHN Q4HR PRN Prochlorperazine (Compazine*), 10 MG ORAL Q8HR PRN for Nausea & Vomiting, ( Reported) Simethicone* (Simethicone*), 80 [facility]H [facility] 1 EA MISC DAILYPRN PRN Miscellaneous Medications Capsaicin (Capsaicin), 42.5 GM TP, (Reported) Guar Gum (Nutrisource Fiber), 1 EACH PO, (Reported) Insulin Regular, Human (Humulin R), 0 SUBQ, (Reported) Loratadine (Loratadine), 10 MG PO, (Reported) Discontinued Medications [Vanco pharmacy to dose], 1 EA MISC DAILY PRN Discontinued Reason: Medication dose changed Patient History History Provided By: Patient, Medical Record, PMD Healthcare decision maker Resuscitation status Full Code Advanced Directive on File Past Medical/Surgical History Past Medical/Surgical History: (1) Altered level of consciousness (2) Septic shock (3) Hypokalemia (4) Hypomagnesemia (5) Multiple organ failure (6) Hematuria (7) Anemia (8) SVT (supraventricular tachycardia) (9) Vaginal bleeding (10) Abdominal pain (11) Lactic acid acidosis (12) Transaminitis (13) Shock liver (14) Acute renal failure (ARF) (15) Elevated troponin I level (16) HCAP 2/2 MRSA (17) Hyperkalemia (18) Hypokalemia (19) UTI (urinary tract infection) (20) Morbid obesity (21) Acute respiratory failure with hypoxia and hypercapnia (22) Fatty liver (23) GERD (gastroesophageal reflux disease) (24) Asthma (25) HTN (hypertension) (26) Chronic diastolic (congestive) heart failure (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 (28) DM2 (diabetes mellitus, type 2) (29) H/O supraventricular tachycardia (30) Likely obesity hypoventilation syndrome (31) lives at snf (32) Severe sepsis (33) Elevated liver enzymes (34) Acute toxic metabolic encephalopathy (35) Hypertension (36) Aspiration pnemonia vs HCAP (37) KASHIF (acute kidney injury) (38) ATN (acute tubular necrosis) (39) Acute on chronic diastolic (congestive) heart failure (40) Acute encephalopathy (41) Acute respiratory failure (42) Bacteremia Review of Systems All Other Systems: negative except mentioned in HPI Physical Exam General Appearance: no apparent distress, alert Lines, tubes and drains: other - right IJ HEENT: PERRL Neck: normal inspection Respiratory/Chest: on vent Cardiovascular/Chest: normal peripheral pulses, normal rate, regular rhythm Abdomen: normal bowel sounds, non tender, soft, no organomegaly, no mass Extremities: non-tender, normal inspection Skin Exam: normal pigmentation, warm/dry Neurologic: alert, responsive Last 24 Hour Vital Signs Date Time Temp Pulse Resp B/P (MAP) Pulse Ox O2 Delivery O2 Flow Rate FiO2 12/07/17 13:00 67 18 108/55 97 Mechanical Ventilator 30 12/07/17 12:55 70 16 30 12/07/17 12:00 67 12/07/17 12:00 30 12/07/17 12:00 69 21 106/53 95 Mechanical Ventilator 30 12/07/17 11:29 77 20 30 12/07/17 11:00 98.6 68 13 146/104 97 Mechanical Ventilator 30 98.6 12/07/17 10:00 68 16 126/51 97 Mechanical Ventilator 30 12/07/17 09:21 72 19 30 12/07/17 09:00 67 18 125/51 95 Mechanical Ventilator 30 12/07/17 08:31 98.4 12/07/17 08:00 30 12/07/17 08:00 98.4 64 18 123/53 94 Mechanical Ventilator 30 98.4 12/07/17 08:00 63 12/07/17 07:21 70 20 30 12/07/17 07:00 98.4 64 18 121/50 94 Mechanical Ventilator 30 98.4 12/07/17 06:00 68 18 125/53 94 Mechanical Ventilator 30 12/07/17 05:29 74 20 30 12/07/17 05:00 73 18 130/51 94 Mechanical Ventilator 30 12/07/17 04:00 98.8 64 18 125/49 96 Mechanical Ventilator 30 98.8 12/07/17 04:00 65 12/07/17 04:00 30 12/07/17 03:25 70 18 30 12/07/17 03:00 70 18 124/48 95 Mechanical Ventilator 30 12/07/17 02:00 75 18 142/52 95 Mechanical Ventilator 30 12/07/17 01:24 72 18 30 12/07/17 01:00 71 18 125/45 96 Mechanical Ventilator 30 12/07/17 00:00 98.4 64 18 126/47 96 Mechanical Ventilator 30 98.4 12/07/17 00:00 30 12/06/17 23:03 69 18 30 12/06/17 23:00 66 18 135/49 96 Mechanical Ventilator 30 12/06/17 22:00 72 18 119/48 95 Mechanical Ventilator 30 12/06/17 21:16 76 18 30 12/06/17 21:00 76 18 135/52 97 Mechanical Ventilator 30 12/06/17 20:00 80 12/06/17 20:00 98.6 74 18 128/49 97 Mechanical Ventilator 30 98.6 12/06/17 20:00 30 12/06/17 19:16 67 18 30 12/06/17 19:00 68 18 129/60 97 Mechanical Ventilator 30 12/06/17 18:00 98.1 66 18 135/60 96 Mechanical Ventilator 30 98.1 12/06/17 17:31 30 12/06/17 17:00 69 18 150/56 97 Mechanical Ventilator 30 12/06/17 16:47 68 18 40 12/06/17 16:00 73 18 158/86 98 Mechanical Ventilator 50 12/06/17 15:35 86 12/06/17 15:05 76 23 40 Intake and Output 12/06/17 12/07/17 19:00 07:00 Intake Total 1645 ml 2425 ml Output Total 355 ml 395 ml Balance 1290 ml 2030 ml Intake Free Water 110 ml IV Total 1225 ml 1955 ml Tube Feeding 360 ml 360 ml Other 60 ml Output Urine Total 355 ml 395 ml Laboratory Tests Test 12/06/17 20:55 12/07/17 04:00 12/07/17 09:10 Prothrombin Time 12.0 SEC (9.30-11.50) H Prothromb Time International Ratio 1.1 (0.9-1.1) White Blood Count 7.9 K/UL (4.8-10.8) Red Blood Count 3.88 M/UL (4.20-5.40) L Hemoglobin 11.4 G/DL (12.0-16.0) L Hematocrit 36.3 % (37.0-47.0) L Mean Corpuscular Volume 94 FL (80-99) Mean Corpuscular Hemoglobin 29.4 PG (27.0-31.0) Mean Corpuscular Hemoglobin Concent 31.4 G/DL (32.0-36.0) L Red Cell Distribution Width 14.9 % (11.6-14.8) H Platelet Count 280 K/UL (150-450) Mean Platelet Volume 7.1 FL (6.5-10.1) Neutrophils (%) (Auto) 60.2 % (45.0-75.0) Lymphocytes (%) (Auto) 22.8 % (20.0-45.0) Monocytes (%) (Auto) 10.4 % (1.0-10.0) H Eosinophils (%) (Auto) 4.6 % (0.0-3.0) H Basophils (%) (Auto) 2.1 % (0.0-2.0) H Sodium Level 134 MMOL/L (136-145) L Potassium Level 3.9 MMOL/L (3.5-5.1) Chloride Level 97 MMOL/L (98-107) L Carbon Dioxide Level 31 MMOL/L (21-32) Anion Gap 6 mmol/L (5-15) Blood Urea Nitrogen 29 mg/dL (7-18) H Creatinine 5.6 MG/DL (0.55-1.30) H Estimat Glomerular Filtration Rate 9.5 mL/min (>60) Glucose Level 167 MG/DL (74-106) H Calcium Level 8.9 MG/DL (8.5-10.1) Phosphorus Level 2.3 MG/DL (2.5-4.9) L Magnesium Level 1.7 MG/DL (1.8-2.4) L Total Bilirubin 1.7 MG/DL (0.2-1.0) H Direct Bilirubin 1.3 MG/DL (0.0-0.3) H Aspartate Amino Transf (AST/SGOT) 346 U/L (15-37) H Alanine Aminotransferase (ALT/SGPT) 256 U/L (12-78) H Alkaline Phosphatase 233 U/L (46-116) H Total Protein 7.0 G/DL (6.4-8.2) Albumin 1.9 G/DL (3.4-5.0) L Globulin 5.1 g/dL Albumin/Globulin Ratio 0.4 (1.0-2.7) L Arterial Blood pH 7.414 (7.350-7.450) Arterial Blood Partial Pressure CO2 52.6 mmHg (35.0-45.0) H Arterial Blood Partial Pressure O2 102.0 mmHg (75.0-100.0) H Arterial Blood HCO3 32.9 mmol/L (22.0-26.0) H Arterial Blood Oxygen Saturation 97.5 % (92.0-98.0) Arterial Blood Base Excess 7.1 Doroteo Test Positive Height (Feet): 5 Height (Inches): 8.00 Weight (Pounds): 452 Medications Current Medications Medications (Trade) Dose Ordered Sig/Felipe Route PRN Reason Start Time Stop Time Status Last Admin Dose Admin Acetaminophen (Tylenol) 650 mg Q4H PRN ORAL Fever (temp>100.5F) 12/04/17 10:15 01/03/18 10:14 12/07/17 06:45 Albuterol/ Ipratropium (Albuterol/ Ipratropium) 3 ml Q4H PRN HHN Shortness of Breath 12/04/17 10:15 12/09/17 10:14 12/06/17 01:07 Allopurinol (Zyloprim) 100 mg DAILY ORAL 12/05/17 09:00 01/04/18 08:59 12/07/17 08:31 Cefepime HCl 1 gm/ Dextrose 55 ml @ 110 mls/hr Q24H IVPB 12/07/17 06:00 12/14/17 05:59 12/07/17 06:03 Dextrose (Dextrose 50%) 25 ml STAT PRN IV Hypoglycemia 12/04/17 10:15 01/03/18 10:14 Dextrose (Dextrose 50%) 50 ml STAT PRN IV Hypoglycemia 12/04/17 10:15 01/03/18 10:14 Heparin Sodium (Porcine) (Heparin 5000 units/ml) 5,000 units EVERY 12 HOURS SUBQ 12/04/17 21:00 01/03/18 20:59 12/07/17 08:34 Heparin Sodium/ Sodium Chloride (Heparin 2000 units/Ns 1000ml premix) 2,000 unit ONCE PRN IV PICC LINE 12/07/17 10:00 12/07/17 23:59 Insulin Aspart (NovoLOG) EVERY 6 HOURS SUBQ 12/06/17 12:00 01/04/18 11:29 12/07/17 12:11 Lidocaine HCl (Xylocaine 1% 30ml) 30 ml ONCE PRN INJ PICC LINE 12/07/17 10:00 12/07/17 23:59 Linezolid 300 ml @ 300 mls/hr Q12HR IVPB 12/06/17 18:00 12/13/17 17:59 12/07/17 08:31 Lorazepam (Ativan 2mg/ml 1ml) 2 mg Q2H PRN IV agitation 12/04/17 10:15 12/11/17 10:14 12/07/17 09:43 Metronidazole 100 ml @ 100 mls/hr Q8HR IVPB 12/04/17 22:00 12/11/17 21:59 12/07/17 14:52 Morphine Sulfate (Morphine Sulfate) 4 mg Q4H PRN IVP Severe Pain (Pain Scale 7-10) 12/04/17 10:15 12/11/17 10:14 12/07/17 06:06 Nitroglycerin (Ntg) 0.4 mg Q5M PRN SL Prn Chest Pain 12/04/17 10:15 01/03/18 10:14 Ondansetron HCl (Zofran) 4 mg Q6H PRN IVP Nausea & Vomiting 12/04/17 10:15 01/03/18 10:14 12/06/17 06:03 Pantoprazole (Protonix) 40 mg DAILY IVP 12/06/17 09:00 01/05/18 08:59 12/07/17 08:31 Sodium Chloride 1,000 ml @ 75 mls/hr [id number] IV 12/06/17 16:30 01/03/18 16:29 12/07/17 06:02 Assessment/Plan Problem List: (1) Acute respiratory failure with hypoxia and hypercapnia Assessment & Plan: second episode this month. has serious risk for aspiration , hypoxia, respiratory failure, and . protected airway recommended. may require positive pressure for some time. given recent episodes recommend tracheostomy which in her case can be life saving. indicated and recommended. discussed with patient at bedside. she expressed understanding and consented to procedure. -will give her a day or two to recover -plan trach thursday or thank you for this consultation. will follow with you. ICD Codes: J96.01 - Acute respiratory failure with hypoxia; J96.02 - Acute respiratory failure with hypercapnia SNOMED: [id number], [id number], [id number] Status: stable Stevan Romero Dec 07, 2017 15:05
--- NOTE | 2017-12-07 15:11 | Diagnostic Imaging Report ---
Indication: Dyspnea Technique: XRAY Chest 1v Comparison: 12/06/2017 Findings: Low lung volumes and underpenetration limit exam. ET tube tip at the level of the clavicles, approximately 3.7 cm above the lcuía. Enteric tube in the stomach. Heart size and mediastinal contours are stable. There is likely mild interstitial opacification/edema although this may be exaggerated due to lower lung volumes. No pneumothorax. Osseous structures stable. Impression: Apparent increase in interstitial opacification/edema, possibly exaggerated due to lower lung volumes on this exam.
--- NOTE | 2017-12-07 18:43 | General Progress Note ---
Assessment/Plan Problem List: (1) Acute toxic metabolic encephalopathy (2) Acute respiratory failure with hypoxia and hypercapnia ICD Codes: J96.01 - Acute respiratory failure with hypoxia; J96.02 - Acute respiratory failure with hypercapnia SNOMED: 07654957, 23376837, 456964986 (3) Likely obesity hypoventilation syndrome (4) Severe sepsis ICD Codes: A41.9 - Sepsis, unspecified organism; R65.20 - Severe sepsis without septic shock SNOMED: 12611560 (5) KASHIF (acute kidney injury) ICD Codes: N17.9 - Acute kidney failure, unspecified SNOMED: 40581930 (6) ATN (acute tubular necrosis) ICD Codes: N17.0 - Acute kidney failure with tubular necrosis SNOMED: 45249800 (7) Elevated liver enzymes ICD Codes: R74.8 - Abnormal levels of other serum enzymes SNOMED: 196931416 (8) Aspiration pnemonia vs HCAP (9) UTI (urinary tract infection) ICD Codes: N39.0 - Urinary tract infection, site not specified SNOMED: 06478403 Qualifiers: Qualified Codes: N39.0 - Urinary tract infection, site not specified (10) Morbid obesity ICD Codes: E66.01 - Morbid (severe) obesity due to excess calories SNOMED: 682369221, 87796152044923 (11) Chronic diastolic (congestive) heart failure ICD Codes: I50.32 - Chronic diastolic (congestive) heart failure SNOMED: 37690243, 626339697 (12) DM2 (diabetes mellitus, type 2) ICD Codes: E11.9 - Type 2 diabetes mellitus without complications SNOMED: 54650324 (13) Hypertension ICD Codes: I10 - Essential (primary) hypertension SNOMED: 37195452 (14) Fatty liver ICD Codes: K76.0 - Fatty (change of) liver, not elsewhere classified SNOMED: 300126059 (15) GERD (gastroesophageal reflux disease) ICD Codes: K21.9 - Gastro-esophageal reflux disease without esophagitis SNOMED: 129374443 (16) Asthma ICD Codes: J45.909 - Unspecified asthma, uncomplicated SNOMED: 205246196 (17) H/O supraventricular tachycardia ICD Codes: Z86.79 - Personal history of other diseases of the circulatory system SNOMED: 669151217405753 Status: stable Assessment/Plan Cont ICU care Pulm/critical care consulted Cont on vent and wean as tolerated Daily SBTs, sedation holidays This is pt's 3rd intubation in less than 6 months. D/w pulm re likely plan for tracheostomy. D/w pt and son. Surgery consulted. Pt agreed to tracheostomy, possibly on Thu or Currently not requiring pressors. Goal MAP 65 and above ID consulted Empiric linezoild, cefepime and flagyl per ID; zosyn d/c'd given KASHIF; vanco d/c' d given KASHIF F/u cultures Nephrology consulted given KASHIF HD line to be place w/ plan to start HD today Strict I/O's Trend CBC, CMP Cont tube feeds Pain control, bowel regimen Supportive care PPI DVT Prophylaxis: SCD, HSQ Code Status: Full Hospital Classification Declaration: Based on this initial evaluation, and depending on the patient's clinical course, I anticipate that this patient will require hospitalization for 3-4 days for acute respiratory failure, sepsis and close respiratory/hemodynamic monitoring. Disposition: Once the patient is stable to leave the hospital, I anticipate the patient will likely be discharged to the following environment: back to SNF At the time of my involvement, the patient's condition was critical with high potential for and/or physiologic deterioration secondary to acute respiratory failure, severe sepsis as delineated in the note above. On the above date of service, I spent a total of 38 minutes in the ICU evaluating, managing, and providing critical care services to this patient, including time spent documenting these activities, counseling patient/family, and coordinating care. Critical care services performed include: Telemetry Review Hemodynamic measurement interpretation Laboratory data review and interpretation Ventilator setting review, management, and adjustment Discussion of care plans with patient, family, and/or surrogate decision makers Discussion of patient's care with primary medical team, surgical team, and/or consulting service Decision to obtain further radiologic evaluation, after consideration of risk/ benefit ratio Decision to perform invasive procedure, after consideration of risk/benefit ratio Review of most recent microbiology results with assessment and modification of antimicrobial coverage Discussion of patient's code status and further advancement towards the ultimate goals of care Plan outlined above discussed with patient/family, pulm/critical care, ID regarding mgmt and dispo. D/w pulm re likely plan for trach. D/w ID re broad- spectrum abx. D/w renal re rising SCr, plan for HD. D/w surgery re plan for tracheostomy Time of note may not reflect time of encounter. Subjective Date patient seen: Dec 07, 2017 Time patient seen: 18:43 ROS Limited/Unobtainable: Yes Allergies: Coded Allergies: ASPARTAME (Verified Allergy, Unknown, 11/30/17) Headache Subjective No acute o/n events Cr rising 5.6. Seen by nephrology w/ plan for HD Pt intubated, sedated, arousable to voice Objective Last 24 Hour Vital Signs Date Time Temp Pulse Resp B/P (MAP) Pulse Ox O2 Delivery O2 Flow Rate FiO2 12/07/17 17:00 70 23 122/61 94 Mechanical Ventilator 30 12/07/17 16:59 70 17 30 12/07/17 16:45 Mechanical Ventilator 12/07/17 16:00 30 12/07/17 16:00 97.6 64 24 118/55 96 Mechanical Ventilator 30 97.6 12/07/17 16:00 79 12/07/17 15:20 65 16 30 12/07/17 15:00 64 9 109/54 94 Mechanical Ventilator 30 12/07/17 14:00 66 18 108/55 96 Mechanical Ventilator 30 12/07/17 13:00 67 18 108/55 97 Mechanical Ventilator 30 12/07/17 12:55 70 16 30 12/07/17 12:00 67 12/07/17 12:00 30 12/07/17 12:00 69 21 106/53 95 Mechanical Ventilator 30 12/07/17 11:29 77 20 30 12/07/17 11:00 98.6 68 13 146/104 97 Mechanical Ventilator 30 98.6 12/07/17 10:00 68 16 126/51 97 Mechanical Ventilator 30 12/07/17 09:21 72 19 30 12/07/17 09:00 67 18 125/51 95 Mechanical Ventilator 30 12/07/17 08:31 98.4 12/07/17 08:00 30 12/07/17 08:00 98.4 64 18 123/53 94 Mechanical Ventilator 30 98.4 12/07/17 08:00 63 12/07/17 07:21 70 20 30 12/07/17 07:00 98.4 64 18 121/50 94 Mechanical Ventilator 30 98.4 12/07/17 06:00 68 18 125/53 94 Mechanical Ventilator 30 12/07/17 05:29 74 20 30 12/07/17 05:00 73 18 130/51 94 Mechanical Ventilator 30 12/07/17 04:00 98.8 64 18 125/49 96 Mechanical Ventilator 30 98.8 12/07/17 04:00 65 12/07/17 04:00 30 12/07/17 03:25 70 18 30 12/07/17 03:00 70 18 124/48 95 Mechanical Ventilator 30 12/07/17 02:00 75 18 142/52 95 Mechanical Ventilator 30 12/07/17 01:24 72 18 30 12/07/17 01:00 71 18 125/45 96 Mechanical Ventilator 30 12/07/17 00:00 98.4 64 18 126/47 96 Mechanical Ventilator 30 98.4 12/07/17 00:00 30 12/06/17 23:03 69 18 30 12/06/17 23:00 66 18 135/49 96 Mechanical Ventilator 30 12/06/17 22:00 72 18 119/48 95 Mechanical Ventilator 30 12/06/17 21:16 76 18 30 12/06/17 21:00 76 18 135/52 97 Mechanical Ventilator 30 12/06/17 20:00 80 12/06/17 20:00 98.6 74 18 128/49 97 Mechanical Ventilator 30 98.6 12/06/17 20:00 30 12/06/17 19:16 67 18 30 12/06/17 19:00 68 18 129/60 97 Mechanical Ventilator 30 Intake and Output 12/06/17 12/07/17 19:00 07:00 Intake Total 1645 ml 2425 ml Output Total 355 ml 395 ml Balance 1290 ml 2030 ml Intake Free Water 110 ml IV Total 1225 ml 1955 ml Tube Feeding 360 ml 360 ml Other 60 ml Output Urine Total 355 ml 395 ml Laboratory Tests 12/06/17 20:55: Prothrombin Time 12.0H, Prothromb Time International Ratio 1.1 12/07/17 04:00: White Blood Count 7.9, Red Blood Count 3.88L, Hemoglobin 11.4L, Hematocrit 36.3L , Mean Corpuscular Volume 94, Mean Corpuscular Hemoglobin 29.4, Mean Corpuscular Hemoglobin Concent 31.4L, Red Cell Distribution Width 14.9H, Platelet Count 280, Mean Platelet Volume 7.1, Neutrophils (%) (Auto) 60.2, Lymphocytes (%) (Auto) 22.8, Monocytes (%) (Auto) 10.4H, Eosinophils (%) (Auto) 4.6H, Basophils (%) (Auto) 2.1H, Sodium Level 134L, Potassium Level 3.9, Chloride Level 97L, Carbon Dioxide Level 31, Anion Gap 6, Blood Urea Nitrogen 29H, Creatinine 5.6H, Estimat Glomerular Filtration Rate 9.5, Glucose Level 167H , Calcium Level 8.9, Phosphorus Level 2.3L, Magnesium Level 1.7L, Total Bilirubin 1.7H, Direct Bilirubin 1.3H, Aspartate Amino Transf (AST/SGOT) 346H, Alanine Aminotransferase (ALT/SGPT) 256H, Alkaline Phosphatase 233H, Total Protein 7.0, Albumin 1.9L, Globulin 5.1, Albumin/Globulin Ratio 0.4L 12/07/17 09:10: Arterial Blood pH 7.414, Arterial Blood Partial Pressure CO2 52.6H, Arterial Blood Partial Pressure O2 102.0H, Arterial Blood HCO3 32.9H, Arterial Blood Oxygen Saturation 97.5, Arterial Blood Base Excess 7.1, Doroteo Test Positive Height (Feet): 5 Height (Inches): 8.00 Weight (Pounds): 452 Objective General: intubated, sedated, morbidly obese Head: normocephalic, without obvious abnormality, atraumatic Eyes: conjunctivae/corneas clear. PERRL, EOM's intact Throat: lips, mucosa, and tongue normal. MMM Neck: supple, symmetrical, trachea midline, and no JVD Lungs:+rhonchi b/l Heart: regular rate and rhythm, S1, S2 normal, no murmur, click, rub or gallop Abdomen: soft, non-tender, non-distended, bowel sounds normal Extremities: extremities normal, atraumatic, no cyanosis or edema Pulses: 2+ and symmetric Skin: skin color, texture, turgor normal; no rashes or lesions Neurologic: sedated Cassie Bolivar M.D. Dec 07, 2017 18:43
[2017-12-08] VITALS (24 sets, daily range): BP systolic 94–175; BP diastolic 32–82
--- NOTE | 2017-12-08 01:14 | General Progress Note ---
Assessment/Plan Assessment/Plan 1. Coagulopathy, potentially secondary to liver problem, liver disease. 2. The patient has transaminitis as well as elevated --> Continue to closely monitor for improvement. Albumin of 2.1 as well. 3. Anemia due to underlying chronic disease. --> Continue to closely monitor. Anemia workup has been reviewed. --> Blood transfusion not required unless symptomatic or hgb <7 4. Transaminitis, potentially secondary to shock liver versus other cause. 5. Acute tubular necrosis with elevated creatinine. Continue to closely monitor. 6. Likely obesity hypoventilation syndrome. 7. Respiratory failure, status post intubation. 8. Leukocytosis, potentially secondary to infection, currently improved. 9. Acute kidney injury. The patient's creatinine within normal limits on admission, potentially secondary to shock. 10. Elevated liver enzymes. Subjective Date patient seen: Dec 07, 2017 Constitutional: Denies: no symptoms, chills, diaphoresis, fever, malaise, weakness, other HEENT: Denies: no symptoms, eye pain, blurred vision, tearing, double vision, ear pain, ear discharge, nose pain, nose congestion, throat pain, throat swelling, mouth pain, mouth swelling, other Cardiovascular: Denies: no symptoms, chest pain, edema, irregular heart rate, lightheadedness, palpitations, syncope, other Respiratory: Denies: no symptoms, cough, orthopnea, shortness of breath, SOB with excertion, SOB at rest, sputum, stridor, wheezing, other Gastrointestinal/Abdominal: Denies: no symptoms, abdomen distended, abdominal pain, black stools, tarry stools, blood in stool, constipated, diarrhea, difficulty swallowing, nausea, poor appetite, poor fluid intake, rectal bleeding , vomiting, other Genitourinary: Denies: no symptoms, burning, discharge, frequency, flank pain, hematuria, incontinence, pain, urgency, other Neurologic/Psychiatric: Denies: no symptoms, anxiety, depressed, emotional problems, headache, numbness, paresthesia, pre-existing deficit, seizure, tingling, tremors, weakness, other Hematologic/Lymphatic: Reports: anemia Allergies: Coded Allergies: ASPARTAME (Verified Allergy, Unknown, 11/30/17) Headache Subjective H/H stable. No acute events. Objective Last 24 Hour Vital Signs Date Time Temp Pulse Resp B/P (MAP) Pulse Ox O2 Delivery O2 Flow Rate FiO2 4/30/18 23:03 65 16 30 12/07/17 21:28 68 24 30 12/07/17 20:13 Mechanical Ventilator 12/07/17 20:00 30 12/07/17 20:00 63 20 100/55 98 Mechanical Ventilator 30 12/07/17 20:00 66 12/07/17 19:00 68 22 109/61 99 Mechanical Ventilator 30 12/07/17 18:47 67 18 30 12/07/17 18:00 67 24 105/62 97 Mechanical Ventilator 30 12/07/17 17:00 70 23 122/61 94 Mechanical Ventilator 30 12/07/17 16:59 70 17 30 12/07/17 16:45 Mechanical Ventilator 16.0 30 12/07/17 16:45 Mechanical Ventilator 12/07/17 16:00 30 12/07/17 16:00 97.6 64 24 118/55 96 Mechanical Ventilator 30 97.6 12/07/17 16:00 79 12/07/17 15:20 65 16 30 12/07/17 15:00 64 9 109/54 94 Mechanical Ventilator 30 12/07/17 14:00 66 18 108/55 96 Mechanical Ventilator 30 12/07/17 13:00 67 18 108/55 97 Mechanical Ventilator 30 12/07/17 12:55 70 16 30 12/07/17 12:00 67 12/07/17 12:00 30 12/07/17 12:00 69 21 106/53 95 Mechanical Ventilator 30 12/07/17 11:29 77 20 30 12/07/17 11:00 98.6 68 13 146/104 97 Mechanical Ventilator 30 98.6 12/07/17 10:00 68 16 126/51 97 Mechanical Ventilator 30 12/07/17 09:21 72 19 30 12/07/17 09:00 67 18 125/51 95 Mechanical Ventilator 30 12/07/17 08:31 98.4 12/07/17 08:00 30 12/07/17 08:00 98.4 64 18 123/53 94 Mechanical Ventilator 30 98.4 12/07/17 08:00 63 12/07/17 07:21 70 20 30 12/07/17 07:00 98.4 64 18 121/50 94 Mechanical Ventilator 30 98.4 12/07/17 06:00 68 18 125/53 94 Mechanical Ventilator 30 12/07/17 05:29 74 20 30 12/07/17 05:00 73 18 130/51 94 Mechanical Ventilator 30 12/07/17 04:00 98.8 64 18 125/49 96 Mechanical Ventilator 30 98.8 12/07/17 04:00 65 12/07/17 04:00 30 12/07/17 03:25 70 18 30 12/07/17 03:00 70 18 124/48 95 Mechanical Ventilator 30 12/07/17 02:00 75 18 142/52 95 Mechanical Ventilator 30 12/07/17 01:24 72 18 30 Intake and Output 12/07/17 12/08/17 19:00 07:00 Intake Total 640 ml 1490 ml Output Total 290 ml 2540 ml Balance 350 ml -1050 ml IV Total 400 ml 1400 ml Tube Feeding 240 ml Other 90 ml Output Urine Total 290 ml 140 ml Hemodialysis UF 2400 ml Laboratory Tests 12/07/17 04:00: White Blood Count 7.9, Red Blood Count 3.88L, Hemoglobin 11.4L, Hematocrit 36.3L , Mean Corpuscular Volume 94, Mean Corpuscular Hemoglobin 29.4, Mean Corpuscular Hemoglobin Concent 31.4L, Red Cell Distribution Width 14.9H, Platelet Count 280, Mean Platelet Volume 7.1, Neutrophils (%) (Auto) 60.2, Lymphocytes (%) (Auto) 22.8, Monocytes (%) (Auto) 10.4H, Eosinophils (%) (Auto) 4.6H, Basophils (%) (Auto) 2.1H, Sodium Level 134L, Potassium Level 3.9, Chloride Level 97L, Carbon Dioxide Level 31, Anion Gap 6, Blood Urea Nitrogen 29H, Creatinine 5.6H, Estimat Glomerular Filtration Rate 9.5, Glucose Level 167H , Calcium Level 8.9, Phosphorus Level 2.3L, Magnesium Level 1.7L, Total Bilirubin 1.7H, Direct Bilirubin 1.3H, Aspartate Amino Transf (AST/SGOT) 346H, Alanine Aminotransferase (ALT/SGPT) 256H, Alkaline Phosphatase 233H, C-Reactive Protein, Quantitative > 70.0H, Total Protein 7.0, Albumin 1.9L, Globulin 5.1, Albumin/Globulin Ratio 0.4L 12/07/17 09:10: Arterial Blood pH 7.414, Arterial Blood Partial Pressure CO2 52.6H, Arterial Blood Partial Pressure O2 102.0H, Arterial Blood HCO3 32.9H, Arterial Blood Oxygen Saturation 97.5, Arterial Blood Base Excess 7.1, Doroteo Test Positive Height (Feet): 5 Height (Inches): 8.00 Weight (Pounds): 452 Neck: normal alignment Cardiovascular: normal rate, regular rhythm Respiratory/Chest: chest wall non-tender, lungs clear Abdomen: normal bowel sounds, non tender, no organomegaly Edema: mild edema Jem Palmer MD December 08, 2017 01:14
[2017-12-08] MEDS: Morphine Sulfate 4mg/ml Inj IVP PRN (04:50)
[2017-12-08 05:21] LABS: HEMATOCRIT 34.1 % (37.0-47.0); HEMOGLOBIN 10.7 G/DL (12.0-16.0); LYMPHOCYTES % (AUTO) 27.8 % (20.0-45.0); MEAN CORPUSCULAR VOLUME 93 FL (80-99); MONOCYTES % (AUTO) 14.3 % (1.0-10.0); NEUTROPHILS % (AUTO) 51.8 % (45.0-75.0); PLATELET COUNT 242 K/UL (150-450); RED BLOOD COUNT 3.66 M/UL (4.20-5.40); RED CELL DISTRIBUTION WIDTH 15.2 % (11.6-14.8); WHITE BLOOD COUNT 8.1 K/UL (4.8-10.8)
[2017-12-08 05:48] LABS: CREATINE KINASE 99 U/L (26-308); GAMMA GLUTAMYL TRANSPEPTIDASE 229 U/L (5-85)
[2017-12-08] MEDS: Cefepime 1gm/D5W 55ml IVPB SCH ×2 (05:54)
[2017-12-08] MEDS: NovoLOG Insulin Flexpen SUBQ SCH ×5 (06:17→23:48)
[2017-12-08 06:19] LABS: ALANINE AMINOTRANSFERASE 178 U/L (12-78); ALBUMIN 1.9 G/DL (3.4-5.0); ALBUMIN/GLOBULIN RATIO 0.4 (1.0-2.7); ALKALINE PHOSPHATASE 217 U/L (46-116); ANION GAP 9 mmol/L (5-15); ASPARTATE AMINO TRANSFERASE 197 U/L (15-37); BILIRUBIN,TOTAL 1.2 MG/DL (0.2-1.0); BLOOD UREA NITROGEN 29 mg/dL (7-18); CALCIUM 8.9 MG/DL (8.5-10.1); CARBON DIOXIDE 28 MMOL/L (21-32); CHLORIDE 99 MMOL/L (98-107); CHOLESTEROL 179 MG/DL (< 200); CREATININE 5.5 MG/DL (0.55-1.30); HDL CHOLESTEROL 10 MG/DL (40-60); PHOSPHORUS 2.2 MG/DL (2.5-4.9); POTASSIUM 3.7 MMOL/L (3.5-5.1); SODIUM 136 MMOL/L (136-145); TRIGLYCERIDES 124 MG/DL (30-150)
[2017-12-08 06:29] LABS: BILIRUBIN,DIRECT 0.8 MG/DL (0.0-0.3)
[2017-12-08] MEDS ORDERED: 1/2 NS 1000ml IV ONE (09:16)
[2017-12-08] MEDS ORDERED: Sterile Water Irrig 1000ml IRRIG ONE (09:16)
[2017-12-08] MEDS: Allopurinol 100mg Tab ORAL SCH (09:36)
[2017-12-08] MEDS: Pantoprazole Inj IVP SCH ×2 (09:36→17:46)
[2017-12-08] MEDS: Linezolid 600mg/300mL Premix IVPB SCH ×2 (09:36→20:39)
[2017-12-08] MEDS: Heparin 5000 units/ml inj SUBQ SCH ×2 (09:40→20:43)
--- NOTE | 2017-12-08 10:06 | Pulmonolgy Critical Care Note ---
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 with: consultants, 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 caseworkerschool 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 - Objective Last 24 Hour Vital Signs Date Time Temp Pulse Resp B/P (MAP) Pulse Ox O2 Delivery O2 Flow Rate FiO2 12/08/17 08:55 61 16 30 12/08/17 08:00 57 12/08/17 08:00 99.1 65 20 106/39 94 Mechanical Ventilator 30 99.1 12/08/17 07:00 58 31 105/37 100 Mechanical Ventilator 30 12/08/17 07:00 56 22 105/37 100 Mechanical Ventilator 30 12/08/17 06:46 64 16 30 12/08/17 06:00 63 22 94/32 100 Mechanical Ventilator 30 12/08/17 05:09 72 24 30 12/08/17 05:00 70 26 101/53 100 Mechanical Ventilator 30 12/08/17 04:00 61 12/08/17 04:00 98.8 72 25 103/53 100 Mechanical Ventilator 30 98.8 12/08/17 04:00 30 12/08/17 03:00 63 16 30 12/08/17 03:00 60 25 122/58 100 Mechanical Ventilator 30 12/08/17 02:00 62 25 118/49 100 Mechanical Ventilator 30 12/08/17 01:15 61 16 30 12/08/17 01:11 30 12/08/17 01:00 60 25 112/49 100 Mechanical Ventilator 30 12/08/17 00:00 98.0 64 31 113/49 100 Mechanical Ventilator 30 98.0 12/08/17 00:00 64 12/07/17 23:03 65 16 30 12/07/17 23:00 66 36 105/50 100 Mechanical Ventilator 30 12/07/17 22:00 67 32 104/50 99 Mechanical Ventilator 30 12/07/17 21:28 68 24 30 12/07/17 21:00 98.5 63 18 107/54 89 Mechanical Ventilator 30 98.5 12/07/17 20:13 Mechanical Ventilator 12/07/17 20:00 30 12/07/17 20:00 63 20 100/55 98 Mechanical Ventilator 30 12/07/17 20:00 66 12/07/17 19:00 68 22 109/61 99 Mechanical Ventilator 30 12/07/17 18:47 67 18 30 12/07/17 18:00 67 24 105/62 97 Mechanical Ventilator 30 12/07/17 17:00 70 23 122/61 94 Mechanical Ventilator 30 12/07/17 16:59 70 17 30 12/07/17 16:45 Mechanical Ventilator 16.0 30 12/07/17 16:45 Mechanical Ventilator 12/07/17 16:00 30 12/07/17 16:00 97.6 64 24 118/55 96 Mechanical Ventilator 30 97.6 12/07/17 16:00 79 12/07/17 15:20 65 16 30 12/07/17 15:00 64 9 109/54 94 Mechanical Ventilator 30 12/07/17 14:00 66 18 108/55 96 Mechanical Ventilator 30 12/07/17 13:00 67 18 108/55 97 Mechanical Ventilator 30 12/07/17 12:55 70 16 30 12/07/17 12:00 67 12/07/17 12:00 30 12/07/17 12:00 69 21 106/53 95 Mechanical Ventilator 30 12/07/17 11:29 77 20 30 12/07/17 11:00 98.6 68 13 146/104 97 Mechanical Ventilator 30 98.6 Status: awake Condition: critical HEENT: atraumatic Lungs: clear Heart: HR/BP stable Abdomen: soft, non-tender Extremities: no C/C/E Micro: Microbiology Date/Time Source Procedure Growth Status 12/05/17 14:40 Sputum Gram Stain - Final Resulted 12/05/17 14:40 Sputum Culture - Preliminary Staphylococcus Aureus Usual Respiratory Cassandra Resulted 12/06/17 12:40 Urine,Clean Catch Urine Culture - Preliminary YEAST Resulted Accucheck: 124 Critical Care - Subjective ROS Limited/Unobtainable: No ICU Day: 4 Intubation Day: 4 Interval Events: dialyzed yesterday FI02: 30 Vent Support Breath Rate: 16 Vent Support Mode: AC Vent Tidal Volume: 600 Sputum Amount: Small PEEP: 5.0 PIP: 39 Fluids: 1/2 NS 50 cc/hour Tube Feeding Amount: 30 I&O: Intake and Output 12/07/17 12/08/17 19:00 07:00 Intake Total 640 ml 1730 ml Output Total 290 ml 2820 ml Balance 350 ml -1090 ml IV Total 400 ml 1400 ml Tube Feeding 240 ml 330 ml Output Urine Total 290 ml 420 ml Hemodialysis UF 2400 ml # Bowel Movements 1 CXR: ET in good position ET-Tube: 7.5 ET Position: 25 Labs: Laboratory Tests Test 12/08/17 04:15 12/08/17 08:55 White Blood Count 8.1 K/UL (4.8-10.8) Red Blood Count 3.66 M/UL (4.20-5.40) L Hemoglobin 10.7 G/DL (12.0-16.0) L Hematocrit 34.1 % (37.0-47.0) L Mean Corpuscular Volume 93 FL (80-99) Mean Corpuscular Hemoglobin 29.2 PG (27.0-31.0) Mean Corpuscular Hemoglobin Concent 31.3 G/DL (32.0-36.0) L Red Cell Distribution Width 15.2 % (11.6-14.8) H Platelet Count 242 K/UL (150-450) Mean Platelet Volume 7.1 FL (6.5-10.1) Neutrophils (%) (Auto) 51.8 % (45.0-75.0) Lymphocytes (%) (Auto) 27.8 % (20.0-45.0) Monocytes (%) (Auto) 14.3 % (1.0-10.0) H Eosinophils (%) (Auto) 5.0 % (0.0-3.0) H Basophils (%) (Auto) 1.0 % (0.0-2.0) Sodium Level 136 MMOL/L (136-145) Potassium Level 3.7 MMOL/L (3.5-5.1) Chloride Level 99 MMOL/L (98-107) Carbon Dioxide Level 28 MMOL/L (21-32) Anion Gap 9 mmol/L (5-15) Blood Urea Nitrogen 29 mg/dL (7-18) H Creatinine 5.5 MG/DL (0.55-1.30) H Estimat Glomerular Filtration Rate 9.6 mL/min (>60) Glucose Level 139 MG/DL (74-106) H Hemoglobin A1c 6.5 % (4.3-6.0) H Uric Acid 5.4 MG/DL (2.6-7.2) Calcium Level 8.9 MG/DL (8.5-10.1) Phosphorus Level 2.2 MG/DL (2.5-4.9) L Magnesium Level 1.9 MG/DL (1.8-2.4) Total Bilirubin 1.2 MG/DL (0.2-1.0) H Direct Bilirubin 0.8 MG/DL (0.0-0.3) H Gamma Glutamyl Transpeptidase 229 U/L (5-85) H Aspartate Amino Transf (AST/SGOT) 197 U/L (15-37) H Alanine Aminotransferase (ALT/SGPT) 178 U/L (12-78) H Alkaline Phosphatase 217 U/L (46-116) H Total Creatine Kinase 99 U/L (26-308) Troponin I 0.034 ng/mL (0.000-0.056) Pro-B-Type Natriuretic Peptide 724 pg/mL (0-125) H Total Protein 7.0 G/DL (6.4-8.2) Albumin 1.9 G/DL (3.4-5.0) L Globulin 5.1 g/dL Albumin/Globulin Ratio 0.4 (1.0-2.7) L Triglycerides Level 124 MG/DL (30-150) Cholesterol Level 179 MG/DL (< 200) LDL Cholesterol 137 mg/dL (<100) H HDL Cholesterol 10 MG/DL (40-60) L Cholesterol/HDL Ratio 17.9 (3.3-4.4) H Thyroid Stimulating Hormone (TSH) 2.857 uiU/mL (0.358-3.740) Cortisol AM Sample Pending Arterial Blood pH 7.421 (7.350-7.450) Arterial Blood Partial Pressure CO2 53.3 mmHg (35.0-45.0) H Arterial Blood Partial Pressure O2 97.2 mmHg (75.0-100.0) Arterial Blood HCO3 33.9 mmol/L (22.0-26.0) H Arterial Blood Oxygen Saturation 97.2 % (92.0-98.0) Arterial Blood Base Excess 8.0 Doroteo Test Positive Yariel Malone MD December 08, 2017 10:05
--- NOTE | 2017-12-08 11:43 | Diagnostic Imaging Report ---
Indication: Dyspnea Comparison: 12/07/2017 A single view chest radiograph was obtained. Findings: Mild interstitial edema may present with some prominence of pulmonary vascularity and heart size. A right jugular Dillan catheter has been placed and is in good position with the tip projected over the SVC. There is no evidence of pneumothorax. Endotracheal tube remains in good position. There is a nasogastric tube present. The tip is projected over the mid esophagus. The tube should be either advanced much further into the stomach or removed. IMPRESSION: Right jugular Dillan catheter in good position. No pneumothorax. Mild interstitial edema suspected. Nasogastric tube is in the midesophagus and should the tube should be removed or repositioned
--- NOTE | 2017-12-08 12:27 | Infectious Diseases Prog Note ---
Assessment/Plan Assessment/Plan ASSESSMENT AND PLAN: 1. sepsis, leukocytosis, fevers, mrsa pna/uri, ? aspiration pna, possible diphtheroids bacteremia, vent, elevated co2, ams, arf, respiratory failure, edema, ? fungal uti, sig + ua - zyvox, ceftriaxone and flagyl - discontinue vancomycin secondary to arf - diflucan x 5 days (sig + ua) - f/u labs and chest x-ray, f/u surveillance blood cultures - continue vent support, icu care - tracheostomy planned - leukocytosis and fevers better - echo - no vegetations mentioned 2. Respiratory failure, on vent, no pressors - treatment per primary and pulmonary 3. Vargas. 4. The patient has history of hypertension. 5. Diabetes. 6. Hyperlipidemia. 7. Blood sugar and blood pressure treatment per primary. 8. History of asthma. 9. History of myocardial infarction and coronary artery disease. 10. History of heart failure/congestive heart failure. 11. History of gout. 12. History of sepsis and pneumonia. 13. History of muscle weakness. 14. Gastroesophageal reflux disease. 15. Past orders were noted. 16. Allergies are negative. 17. Family History is noncontributory. 18. Social history is negative. 19. MAR was noted. 20. Case discussed with RN. 21. Continue treatment per primary and consultants. 22. Case discussed with Dr. Matthews. 23. Case discussed with RN in the ICU. 24. Orders were noted and entered. 25. Notes and records were noted. 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 Subjective Constitutional: Reports: other - + vent, + respiratory failure, alert and responsive ; Denies: fever HEENT: Reports: congestion Respiratory: Reports: shortness of breath Cardiovascular: Reports: other - no pressors; Denies: chest pain Gastrointestinal/Abdominal: Denies: nausea, vomiting, diarrhea Genitourinary: Reports: other - + foely - urine slt cloudy Neurologic: Denies: headache Psychiatric: Reports: no symptoms, other - on vent Skin: Denies: rash Hematologic: Denies: bleeding Musculoskeletal: Denies: pain Allergies: Coded Allergies: ASPARTAME (Verified Allergy, Unknown, 11/30/17) Headache Objective Vital Signs Last 24 Hour Vital Signs Date Time Temp Pulse Resp B/P (MAP) Pulse Ox O2 Delivery O2 Flow Rate FiO2 12/08/17 11:10 59 16 30 12/08/17 11:00 52 27 113/53 98 Mechanical Ventilator 30 12/08/17 10:00 57 33 111/53 98 Mechanical Ventilator 30 12/08/17 09:00 59 27 111/57 94 Mechanical Ventilator 30 12/08/17 08:55 61 16 30 12/08/17 08:00 30 12/08/17 08:00 57 12/08/17 08:00 99.1 65 20 106/39 94 Mechanical Ventilator 30 99.1 12/08/17 07:00 58 31 105/37 100 Mechanical Ventilator 30 12/08/17 07:00 56 22 105/37 100 Mechanical Ventilator 30 12/08/17 06:46 64 16 30 12/08/17 06:00 63 22 94/32 100 Mechanical Ventilator 30 12/08/17 05:09 72 24 30 12/08/17 05:00 70 26 101/53 100 Mechanical Ventilator 30 12/08/17 04:00 61 12/08/17 04:00 98.8 72 25 103/53 100 Mechanical Ventilator 30 98.8 12/08/17 04:00 30 12/08/17 03:00 63 16 30 12/08/17 03:00 60 25 122/58 100 Mechanical Ventilator 30 12/08/17 02:00 62 25 118/49 100 Mechanical Ventilator 30 12/08/17 01:15 61 16 30 12/08/17 01:11 30 12/08/17 01:00 60 25 112/49 100 Mechanical Ventilator 30 12/08/17 00:00 98.0 64 31 113/49 100 Mechanical Ventilator 30 98.0 12/08/17 00:00 64 12/07/17 23:03 65 16 30 12/07/17 23:00 66 36 105/50 100 Mechanical Ventilator 30 12/07/17 22:00 67 32 104/50 99 Mechanical Ventilator 30 12/07/17 21:28 68 24 30 12/07/17 21:00 98.5 63 18 107/54 89 Mechanical Ventilator 30 98.5 12/07/17 20:13 Mechanical Ventilator 12/07/17 20:00 30 12/07/17 20:00 63 20 100/55 98 Mechanical Ventilator 30 12/07/17 20:00 66 12/07/17 19:00 68 22 109/61 99 Mechanical Ventilator 30 4/30/18 18:47 67 18 30 12/07/17 18:00 67 24 105/62 97 Mechanical Ventilator 30 12/07/17 17:00 70 23 122/61 94 Mechanical Ventilator 30 12/07/17 16:59 70 17 30 12/07/17 16:45 Mechanical Ventilator 16.0 30 12/07/17 16:45 Mechanical Ventilator 12/07/17 16:00 30 12/07/17 16:00 97.6 64 24 118/55 96 Mechanical Ventilator 30 97.6 12/07/17 16:00 79 12/07/17 15:20 65 16 30 12/07/17 15:00 64 9 109/54 94 Mechanical Ventilator 30 12/07/17 14:00 66 18 108/55 96 Mechanical Ventilator 30 12/07/17 13:00 67 18 108/55 97 Mechanical Ventilator 30 12/07/17 12:55 70 16 30 Height (Feet): 5 Height (Inches): 8.00 Weight (Pounds): 464 General Appearance: no acute distress, other - on vent HEENT: normocephalic, atraumatic, anicteric, mucous membranes moist Respiratory/Chest: crackles/rales, rhonchi - bilaterally Cardiovascular: normal rate, regular rhythm, no gallop/murmur, no JVD Abdomen: normal bowel sounds, soft, non tender, no organomegaly, non distended Genitourinary: other - + vargas - urine slt cloudy Extremities: no cyanosis Skin: no rash 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 The heart is enlarged. Lungs and pleural spaces are clear. Impression: Satisfactory endotracheal intubation Other findings as noted Chest x-ray - 12/06 - A single view chest radiograph was obtained. Findings: Endotracheal tube and nasogastric tubes are in good position unchanged. Lung volumes remain low. Lungs are essentially clear. Heart is enlarged. Bones are unremarkable. IMPRESSION: No acute findings Chest x-ray - 12/08 - IMPRESSION: Right jugular Dillan catheter in good position. No pneumothorax. Mild interstitial edema suspected. Microbiology Date/Time Source Procedure Growth Status 12/05/17 14:40 Sputum Gram Stain - Final Resulted 12/05/17 14:40 Sputum Culture - Preliminary Staphylococcus Aureus Usual Respiratory Cassandra Resulted 12/06/17 12:40 Urine,Clean Catch Urine Culture - Preliminary YEAST Resulted Microbiology Date/Time Source Procedure Growth Status 12/04/17 09:30 Blood Blood Culture - Final Diphtheroids Complete 12/05/17 14:40 Sputum Gram Stain - Final Resulted 12/05/17 14:40 Sputum Culture - Preliminary Staphylococcus Aureus Usual Respiratory Cassandra Resulted 12/06/17 12:40 Urine,Clean Catch Urine Culture - Preliminary YEAST Resulted 12/04/17 08:30 Rectum VRE Culture - Final Enterococcus Faecium - Vre Complete Laboratory Tests Test 12/08/17 04:15 12/08/17 08:55 White Blood Count 8.1 K/UL (4.8-10.8) Red Blood Count 3.66 M/UL (4.20-5.40) L Hemoglobin 10.7 G/DL (12.0-16.0) L Hematocrit 34.1 % (37.0-47.0) L Mean Corpuscular Volume 93 FL (80-99) Mean Corpuscular Hemoglobin 29.2 PG (27.0-31.0) Mean Corpuscular Hemoglobin Concent 31.3 G/DL (32.0-36.0) L Red Cell Distribution Width 15.2 % (11.6-14.8) H Platelet Count 242 K/UL (150-450) Mean Platelet Volume 7.1 FL (6.5-10.1) Neutrophils (%) (Auto) 51.8 % (45.0-75.0) Lymphocytes (%) (Auto) 27.8 % (20.0-45.0) Monocytes (%) (Auto) 14.3 % (1.0-10.0) H Eosinophils (%) (Auto) 5.0 % (0.0-3.0) H Basophils (%) (Auto) 1.0 % (0.0-2.0) Sodium Level 136 MMOL/L (136-145) Potassium Level 3.7 MMOL/L (3.5-5.1) Chloride Level 99 MMOL/L (98-107) Carbon Dioxide Level 28 MMOL/L (21-32) Anion Gap 9 mmol/L (5-15) Blood Urea Nitrogen 29 mg/dL (7-18) H Creatinine 5.5 MG/DL (0.55-1.30) H Estimat Glomerular Filtration Rate 9.6 mL/min (>60) Glucose Level 139 MG/DL (74-106) H Hemoglobin A1c 6.5 % (4.3-6.0) H Uric Acid 5.4 MG/DL (2.6-7.2) Calcium Level 8.9 MG/DL (8.5-10.1) Phosphorus Level 2.2 MG/DL (2.5-4.9) L Magnesium Level 1.9 MG/DL (1.8-2.4) Total Bilirubin 1.2 MG/DL (0.2-1.0) H Direct Bilirubin 0.8 MG/DL (0.0-0.3) H Gamma Glutamyl Transpeptidase 229 U/L (5-85) H Aspartate Amino Transf (AST/SGOT) 197 U/L (15-37) H Alanine Aminotransferase (ALT/SGPT) 178 U/L (12-78) H Alkaline Phosphatase 217 U/L (46-116) H Total Creatine Kinase 99 U/L (26-308) Troponin I 0.034 ng/mL (0.000-0.056) Pro-B-Type Natriuretic Peptide 724 pg/mL (0-125) H Total Protein 7.0 G/DL (6.4-8.2) Albumin 1.9 G/DL (3.4-5.0) L Globulin 5.1 g/dL Albumin/Globulin Ratio 0.4 (1.0-2.7) L Triglycerides Level 124 MG/DL (30-150) Cholesterol Level 179 MG/DL (< 200) LDL Cholesterol 137 mg/dL (<100) H HDL Cholesterol 10 MG/DL (40-60) L Cholesterol/HDL Ratio 17.9 (3.3-4.4) H Thyroid Stimulating Hormone (TSH) 2.857 uiU/mL (0.358-3.740) Cortisol AM Sample Pending Arterial Blood pH 7.421 (7.350-7.450) Arterial Blood Partial Pressure CO2 53.3 mmHg (35.0-45.0) H Arterial Blood Partial Pressure O2 97.2 mmHg (75.0-100.0) Arterial Blood HCO3 33.9 mmol/L (22.0-26.0) H Arterial Blood Oxygen Saturation 97.2 % (92.0-98.0) Arterial Blood Base Excess 8.0 Doroteo Test Positive Current Medications Medications (Trade) Dose Ordered Sig/Felipe Route PRN Reason Start Time Stop Time Status Last Admin Dose Admin Acetaminophen (Tylenol) 650 mg Q4H PRN ORAL Fever (temp>100.5F) 12/04/17 10:15 01/03/18 10:14 12/07/17 06:45 Albuterol/ Ipratropium (Albuterol/ Ipratropium) 3 ml Q4H PRN HHN Shortness of Breath 12/04/17 10:15 12/09/17 10:14 12/06/17 01:07 Allopurinol (Zyloprim) 100 mg DAILY ORAL 12/05/17 09:00 01/04/18 08:59 12/08/17 09:36 Cefepime HCl 1 gm/ Dextrose 55 ml @ 110 mls/hr Q24H IVPB 12/07/17 06:00 12/14/17 05:59 12/08/17 05:54 Dextrose (Dextrose 50%) 25 ml STAT PRN IV Hypoglycemia 12/04/17 10:15 01/03/18 10:14 Dextrose (Dextrose 50%) 50 ml STAT PRN IV Hypoglycemia 12/04/17 10:15 01/03/18 10:14 Heparin Sodium (Porcine) (Heparin 5000 units/ml) 5,000 units EVERY 12 HOURS SUBQ 12/04/17 21:00 01/03/18 20:59 12/08/17 09:40 Insulin Aspart (NovoLOG) EVERY 6 HOURS SUBQ 12/06/17 12:00 01/04/18 11:29 12/08/17 06:17 Linezolid 300 ml @ 300 mls/hr Q12HR IVPB 12/06/17 18:00 12/13/17 17:59 12/08/17 09:36 Lorazepam (Ativan 2mg/ml 1ml) 2 mg Q2H PRN IV agitation 12/04/17 10:15 12/11/17 10:14 12/07/17 19:32 Metronidazole 100 ml @ 100 mls/hr Q8HR IVPB 12/04/17 22:00 12/11/17 21:59 12/08/17 05:54 Midodrine (Pro-Amatine) 5 mg THREE TIMES A DAY NG 12/08/17 09:00 01/07/18 08:59 12/08/17 09:37 Morphine Sulfate (Morphine Sulfate) 4 mg Q4H PRN IVP Severe Pain (Pain Scale 7-10) 12/04/17 10:15 12/11/17 10:14 12/08/17 04:50 Nitroglycerin (Ntg) 0.4 mg Q5M PRN SL Prn Chest Pain 12/04/17 10:15 01/03/18 10:14 Ondansetron HCl (Zofran) 4 mg Q6H PRN IVP Nausea & Vomiting 12/04/17 10:15 01/03/18 10:14 12/06/17 06:03 Pantoprazole (Protonix) 40 mg DAILY IVP 12/06/17 09:00 01/05/18 08:59 12/08/17 09:36 JUNI ABDUL December 08, 2017 12:27
--- NOTE | 2017-12-08 14:54 | Nephrology Progress Note ---
Assessment/Plan Assessment - Acute respiratory failure - Bacteremia - ATN (acute tubular necrosis), ARF - Acute encephalopathy - Aspiration pnemonia vs HCAP - Likely obesity hypoventilation syndrome - Elevated liver enzymes Plan acute renal failure, dialysed 12/07 low BP resp failure , intubated, resp management obese start Hydrocortisone Midodrine HD in am Subjective ROS Limited/Unobtainable: Yes Objective Objective Last 24 Hour Vital Signs Date Time Temp Pulse Resp B/P (MAP) Pulse Ox O2 Delivery O2 Flow Rate FiO2 12/08/17 14:32 60 19 30 12/08/17 12:49 62 16 30 12/08/17 12:00 52 12/08/17 12:00 97.6 56 29 109/49 98 Mechanical Ventilator 30 97.6 12/08/17 12:00 30 12/08/17 11:10 59 16 30 12/08/17 11:00 52 27 113/53 98 Mechanical Ventilator 30 12/08/17 10:00 57 33 111/53 98 Mechanical Ventilator 30 12/08/17 09:00 59 27 111/57 94 Mechanical Ventilator 30 12/08/17 08:55 61 16 30 12/08/17 08:00 30 12/08/17 08:00 57 12/08/17 08:00 99.1 65 20 106/39 94 Mechanical Ventilator 30 99.1 12/08/17 07:00 58 31 105/37 100 Mechanical Ventilator 30 12/08/17 07:00 56 22 105/37 100 Mechanical Ventilator 30 12/08/17 06:46 64 16 30 12/08/17 06:00 63 22 94/32 100 Mechanical Ventilator 30 12/08/17 05:09 72 24 30 12/08/17 05:00 70 26 101/53 100 Mechanical Ventilator 30 12/08/17 04:00 61 12/08/17 04:00 98.8 72 25 103/53 100 Mechanical Ventilator 30 98.8 12/08/17 04:00 30 12/08/17 03:00 63 16 30 12/08/17 03:00 60 25 122/58 100 Mechanical Ventilator 30 12/08/17 02:00 62 25 118/49 100 Mechanical Ventilator 30 12/08/17 01:15 61 16 30 12/08/17 01:11 30 12/08/17 01:00 60 25 112/49 100 Mechanical Ventilator 30 12/08/17 00:00 98.0 64 31 113/49 100 Mechanical Ventilator 30 98.0 12/08/17 00:00 64 12/07/17 23:03 65 16 30 12/07/17 23:00 66 36 105/50 100 Mechanical Ventilator 30 12/07/17 22:00 67 32 104/50 99 Mechanical Ventilator 30 12/07/17 21:28 68 24 30 12/07/17 21:00 98.5 63 18 107/54 89 Mechanical Ventilator 30 98.5 12/07/17 20:13 Mechanical Ventilator 12/07/17 20:00 30 12/07/17 20:00 63 20 100/55 98 Mechanical Ventilator 30 12/07/17 20:00 66 12/07/17 19:00 68 22 109/61 99 Mechanical Ventilator 30 12/07/17 18:47 67 18 30 12/07/17 18:00 67 24 105/62 97 Mechanical Ventilator 30 12/07/17 17:00 70 23 122/61 94 Mechanical Ventilator 30 12/07/17 16:59 70 17 30 12/07/17 16:45 Mechanical Ventilator 16.0 30 12/07/17 16:45 Mechanical Ventilator 12/07/17 16:00 30 12/07/17 16:00 97.6 64 24 118/55 96 Mechanical Ventilator 30 97.6 12/07/17 16:00 79 12/07/17 15:20 65 16 30 12/07/17 15:00 64 9 109/54 94 Mechanical Ventilator 30 Intake and Output 12/07/17 12/08/17 19:00 07:00 Intake Total 640 ml 1730 ml Output Total 290 ml 2820 ml Balance 350 ml -1090 ml IV Total 400 ml 1400 ml Tube Feeding 240 ml 330 ml Output Urine Total 290 ml 420 ml Hemodialysis UF 2400 ml # Bowel Movements 1 Laboratory Tests 12/08/17 04:15: White Blood Count 8.1, Red Blood Count 3.66L, Hemoglobin 10.7L, Hematocrit 34.1L , Mean Corpuscular Volume 93, Mean Corpuscular Hemoglobin 29.2, Mean Corpuscular Hemoglobin Concent 31.3L, Red Cell Distribution Width 15.2H, Platelet Count 242, Mean Platelet Volume 7.1, Neutrophils (%) (Auto) 51.8, Lymphocytes (%) (Auto) 27.8, Monocytes (%) (Auto) 14.3H, Eosinophils (%) (Auto) 5.0H, Basophils (%) (Auto) 1.0, Sodium Level 136, Potassium Level 3.7, Chloride Level 99, Carbon Dioxide Level 28, Anion Gap 9, Blood Urea Nitrogen 29H, Creatinine 5.5H, Estimat Glomerular Filtration Rate 9.6, Glucose Level 139H, Hemoglobin A1c 6.5H, Uric Acid 5.4, Calcium Level 8.9, Phosphorus Level 2.2L, Magnesium Level 1.9, Total Bilirubin 1.2H, Direct Bilirubin 0.8H, Gamma Glutamyl Transpeptidase 229H, Aspartate Amino Transf (AST/SGOT) 197H, Alanine Aminotransferase (ALT/SGPT) 178H, Alkaline Phosphatase 217H, Total Creatine Kinase 99, Troponin I 0.034, Pro-B-Type Natriuretic Peptide 724H, Total Protein 7.0, Albumin 1.9L, Globulin 5.1, Albumin/Globulin Ratio 0.4L, Triglycerides Level 124, Cholesterol Level 179, LDL Cholesterol 137H, HDL Cholesterol 10L, Cholesterol/HDL Ratio 17.9H, Thyroid Stimulating Hormone (TSH) 2.857, Cortisol AM Sample 10.5 12/08/17 08:55: Arterial Blood pH 7.421, Arterial Blood Partial Pressure CO2 53.3H, Arterial Blood Partial Pressure O2 97.2, Arterial Blood HCO3 33.9H, Arterial Blood Oxygen Saturation 97.2, Arterial Blood Base Excess 8.0, Doroteo Test Positive Height (Feet): 5 Height (Inches): 8.00 Weight (Pounds): 464 General Appearance: no apparent distress Cardiovascular: normal rate Respiratory/Chest: decreased breath sounds Abdomen: other - obese AGUSTIN CONTRERAS December 08, 2017 14:54
[2017-12-08] MEDS ORDERED: Hydrocortisone 100mg Inj IV SCH (15:15)
[2017-12-08] MEDS: Fluconazole 100mg tab ORAL SCH (15:26)
[2017-12-08] MEDS: cefTRIAXone 1 GM in D5W 50 ML IVPB SCH (15:27)
--- NOTE | 2017-12-08 18:11 | General Progress Note ---
Assessment/Plan Problem List: (1) Acute toxic metabolic encephalopathy (2) Acute respiratory failure with hypoxia and hypercapnia ICD Codes: J96.01 - Acute respiratory failure with hypoxia; J96.02 - Acute respiratory failure with hypercapnia SNOMED: 42126000, 59946115, 605050461 (3) Likely obesity hypoventilation syndrome (4) Severe sepsis ICD Codes: A41.9 - Sepsis, unspecified organism; R65.20 - Severe sepsis without septic shock SNOMED: 32472265 (5) KASHIF (acute kidney injury) ICD Codes: N17.9 - Acute kidney failure, unspecified SNOMED: 14377699 (6) ATN (acute tubular necrosis) ICD Codes: N17.0 - Acute kidney failure with tubular necrosis SNOMED: 99302108 (7) Elevated liver enzymes ICD Codes: R74.8 - Abnormal levels of other serum enzymes SNOMED: 876617454 (8) Aspiration pnemonia vs HCAP (9) UTI (urinary tract infection) ICD Codes: N39.0 - Urinary tract infection, site not specified SNOMED: 97512692 Qualifiers: Qualified Codes: N39.0 - Urinary tract infection, site not specified (10) Morbid obesity ICD Codes: E66.01 - Morbid (severe) obesity due to excess calories SNOMED: 548121617, 80739195595826 (11) Chronic diastolic (congestive) heart failure ICD Codes: I50.32 - Chronic diastolic (congestive) heart failure SNOMED: 73863703, 162001855 (12) DM2 (diabetes mellitus, type 2) ICD Codes: E11.9 - Type 2 diabetes mellitus without complications SNOMED: 19123641 (13) Hypertension ICD Codes: I10 - Essential (primary) hypertension SNOMED: 97439278 (14) Fatty liver ICD Codes: K76.0 - Fatty (change of) liver, not elsewhere classified SNOMED: 627864560 (15) GERD (gastroesophageal reflux disease) ICD Codes: K21.9 - Gastro-esophageal reflux disease without esophagitis SNOMED: 244964964 (16) Asthma ICD Codes: J45.909 - Unspecified asthma, uncomplicated SNOMED: 285818935 (17) H/O supraventricular tachycardia ICD Codes: Z86.79 - Personal history of other diseases of the circulatory system SNOMED: 808210852082113 Assessment/Plan Cont ICU care Pulm/critical care consulted Cont on vent and wean as tolerated Daily SBTs, sedation holidays This is pt's 3rd intubation in less than 6 months. D/w pulm re likely plan for tracheostomy. D/w pt and son. Surgery consulted. Pt agreed to tracheostomy, possibly on Thu or Currently not requiring pressors. Goal MAP 65 and above ID consulted Empiric linezolid, cefepime and flagyl per ID; zosyn d/c'd given KASHIF; vanco d/c' d given KASHIF F/u cultures Nephrology consulted given KASHIF HD line placed and started on HD on 12/07/17 Strict I/O's Trend CBC, CMP Cont tube feeds Pain control, bowel regimen Supportive care PPI DVT Prophylaxis: SCD, HSQ Code Status: Full Hospital Classification Declaration: Based on this initial evaluation, and depending on the patient's clinical course, I anticipate that this patient will require hospitalization for 3-4 days for acute respiratory failure, sepsis and close respiratory/hemodynamic monitoring. Disposition: Once the patient is stable to leave the hospital, I anticipate the patient will likely be discharged to the following environment: back to SNF At the time of my involvement, the patient's condition was critical with high potential for and/or physiologic deterioration secondary to acute respiratory failure, severe sepsis as delineated in the note above. On the above date of service, I spent a total of 38 minutes in the ICU evaluating, managing, and providing critical care services to this patient, including time spent documenting these activities, counseling patient/family, and coordinating care. Critical care services performed include: Telemetry Review Hemodynamic measurement interpretation Laboratory data review and interpretation Ventilator setting review, management, and adjustment Discussion of care plans with patient, family, and/or surrogate decision makers Discussion of patient's care with primary medical team, surgical team, and/or consulting service Decision to obtain further radiologic evaluation, after consideration of risk/ benefit ratio Decision to perform invasive procedure, after consideration of risk/benefit ratio Review of most recent microbiology results with assessment and modification of antimicrobial coverage Discussion of patient's code status and further advancement towards the ultimate goals of care Plan outlined above discussed with patient/family, pulm/critical care, ID regarding mgmt and dispo. D/w pulm re plan for trach. D/w ID re broad-spectrum abx. D/w renal re rising SCr, plan for HD. D/w surgery re plan for tracheostomy Time of note may not reflect time of encounter. Subjective Date patient seen: December 08, 2017 Time patient seen: 18:11 ROS Limited/Unobtainable: No Allergies: Coded Allergies: ASPARTAME (Verified Allergy, Unknown, 11/30/17) Headache Subjective No acute o/n events Started on HD yesterday Pt intubated, sedated, arousable to voice. Communicating by writing Objective Last 24 Hour Vital Signs Date Time Temp Pulse Resp B/P (MAP) Pulse Ox O2 Delivery O2 Flow Rate FiO2 12/08/17 17:00 53 29 140/82 97 Mechanical Ventilator 30 12/08/17 16:56 61 17 30 12/08/17 16:00 98.3 53 36 129/59 38 Mechanical Ventilator 30 98.3 12/08/17 16:00 51 12/08/17 16:00 30 12/08/17 15:00 55 27 111/44 96 Mechanical Ventilator 30 12/08/17 14:32 60 19 30 12/08/17 14:00 53 35 115/51 99 Mechanical Ventilator 30 12/08/17 13:00 53 39 112/49 100 Mechanical Ventilator 30 12/08/17 12:49 62 16 30 12/08/17 12:00 52 12/08/17 12:00 97.6 56 29 109/49 98 Mechanical Ventilator 30 97.6 12/08/17 12:00 30 12/08/17 11:10 59 16 30 12/08/17 11:00 52 27 113/53 98 Mechanical Ventilator 30 12/08/17 10:00 57 33 111/53 98 Mechanical Ventilator 30 12/08/17 09:00 59 27 111/57 94 Mechanical Ventilator 30 12/08/17 08:55 61 16 30 12/08/17 08:00 30 12/08/17 08:00 57 12/08/17 08:00 99.1 65 20 106/39 94 Mechanical Ventilator 30 99.1 12/08/17 07:00 58 31 105/37 100 Mechanical Ventilator 30 12/08/17 07:00 56 22 105/37 100 Mechanical Ventilator 30 12/08/17 06:46 64 16 30 12/08/17 06:00 63 22 94/32 100 Mechanical Ventilator 30 12/08/17 05:09 72 24 30 12/08/17 05:00 70 26 101/53 100 Mechanical Ventilator 30 12/08/17 04:00 61 12/08/17 04:00 98.8 72 25 103/53 100 Mechanical Ventilator 30 98.8 12/08/17 04:00 30 12/08/17 03:00 63 16 30 12/08/17 03:00 60 25 122/58 100 Mechanical Ventilator 30 12/08/17 02:00 62 25 118/49 100 Mechanical Ventilator 30 12/08/17 01:15 61 16 30 12/08/17 01:11 30 12/08/17 01:00 60 25 112/49 100 Mechanical Ventilator 30 12/08/17 00:00 98.0 64 31 113/49 100 Mechanical Ventilator 30 98.0 12/08/17 00:00 64 12/07/17 23:03 65 16 30 12/07/17 23:00 66 36 105/50 100 Mechanical Ventilator 30 12/07/17 22:00 67 32 104/50 99 Mechanical Ventilator 30 12/07/17 21:28 68 24 30 12/07/17 21:00 98.5 63 18 107/54 89 Mechanical Ventilator 30 98.5 12/07/17 20:13 Mechanical Ventilator 12/07/17 20:00 30 12/07/17 20:00 63 20 100/55 98 Mechanical Ventilator 30 12/07/17 20:00 66 12/07/17 19:00 68 22 109/61 99 Mechanical Ventilator 30 12/07/17 18:47 67 18 30 Intake and Output 12/07/17 12/08/17 19:00 07:00 Intake Total 640 ml 1730 ml Output Total 290 ml 2820 ml Balance 350 ml -1090 ml IV Total 400 ml 1400 ml Tube Feeding 240 ml 330 ml Output Urine Total 290 ml 420 ml Hemodialysis UF 2400 ml # Bowel Movements 1 Laboratory Tests 12/08/17 04:15: White Blood Count 8.1, Red Blood Count 3.66L, Hemoglobin 10.7L, Hematocrit 34.1L , Mean Corpuscular Volume 93, Mean Corpuscular Hemoglobin 29.2, Mean Corpuscular Hemoglobin Concent 31.3L, Red Cell Distribution Width 15.2H, Platelet Count 242, Mean Platelet Volume 7.1, Neutrophils (%) (Auto) 51.8, Lymphocytes (%) (Auto) 27.8, Monocytes (%) (Auto) 14.3H, Eosinophils (%) (Auto) 5.0H, Basophils (%) (Auto) 1.0, Sodium Level 136, Potassium Level 3.7, Chloride Level 99, Carbon Dioxide Level 28, Anion Gap 9, Blood Urea Nitrogen 29H, Creatinine 5.5H, Estimat Glomerular Filtration Rate 9.6, Glucose Level 139H, Hemoglobin A1c 6.5H, Uric Acid 5.4, Calcium Level 8.9, Phosphorus Level 2.2L, Magnesium Level 1.9, Total Bilirubin 1.2H, Direct Bilirubin 0.8H, Gamma Glutamyl Transpeptidase 229H, Aspartate Amino Transf (AST/SGOT) 197H, Alanine Aminotransferase (ALT/SGPT) 178H, Alkaline Phosphatase 217H, Total Creatine Kinase 99, Troponin I 0.034, Pro-B-Type Natriuretic Peptide 724H, Total Protein 7.0, Albumin 1.9L, Globulin 5.1, Albumin/Globulin Ratio 0.4L, Triglycerides Level 124, Cholesterol Level 179, LDL Cholesterol 137H, HDL Cholesterol 10L, Cholesterol/HDL Ratio 17.9H, Thyroid Stimulating Hormone (TSH) 2.857, Cortisol AM Sample 10.5 12/08/17 08:55: Arterial Blood pH 7.421, Arterial Blood Partial Pressure CO2 53.3H, Arterial Blood Partial Pressure O2 97.2, Arterial Blood HCO3 33.9H, Arterial Blood Oxygen Saturation 97.2, Arterial Blood Base Excess 8.0, Doroteo Test Positive Height (Feet): 5 Height (Inches): 8.00 Weight (Pounds): 464 Objective General: intubated, sedated, morbidly obese Head: normocephalic, without obvious abnormality, atraumatic Eyes: conjunctivae/corneas clear. PERRL, EOM's intact Throat: lips, mucosa, and tongue normal. MMM Neck: supple, symmetrical, trachea midline, and no JVD Lungs:+rhonchi b/l Heart: regular rate and rhythm, S1, S2 normal, no murmur, click, rub or gallop Abdomen: soft, non-tender, non-distended, bowel sounds normal Extremities: extremities normal, atraumatic, no cyanosis or edema Pulses: 2+ and symmetric Skin: skin color, texture, turgor normal; no rashes or lesions Neurologic: sedated Cassie Bolivar M.D. December 08, 2017 18:11
[2017-12-08] MEDS ORDERED: DiphenhydrAMINE 50mg/ml Inj IVP PRN (18:30)
[2017-12-08] MEDS: Hydrocortisone 100mg Inj IV SCH (22:02)
[2017-12-09] VITALS (24 sets, daily range): BP systolic 116–179; BP diastolic 46–78
[2017-12-09 05:13] LABS: BASOPHILS % (AUTO) 0.5 % (0.0-2.0); HEMATOCRIT 38.5 % (37.0-47.0); HEMOGLOBIN 12.3 G/DL (12.0-16.0); LYMPHOCYTES % (AUTO) 24.6 % (20.0-45.0); MEAN CORPUSCULAR VOLUME 92 FL (80-99); MONOCYTES % (AUTO) 4.1 % (1.0-10.0); NEUTROPHILS % (AUTO) 70.8 % (45.0-75.0); PLATELET COUNT 254 K/UL (150-450); RED CELL DISTRIBUTION WIDTH 15.5 % (11.6-14.8)
[2017-12-09] MEDS: NovoLOG Insulin Flexpen SUBQ SCH ×4 (05:39→23:46)
[2017-12-09] MEDS: Hydrocortisone 100mg Inj IV SCH (05:43)
[2017-12-09 05:51] LABS: ALANINE AMINOTRANSFERASE 157 U/L (12-78); ALBUMIN 2.1 G/DL (3.4-5.0); ALBUMIN/GLOBULIN RATIO 0.4 (1.0-2.7); ALKALINE PHOSPHATASE 244 U/L (46-116); ANION GAP 9 mmol/L (5-15); ASPARTATE AMINO TRANSFERASE 124 U/L (15-37); BILIRUBIN,TOTAL 0.9 MG/DL (0.2-1.0); BLOOD UREA NITROGEN 39 mg/dL (7-18); CALCIUM 9.3 MG/DL (8.5-10.1); CARBON DIOXIDE 28 MMOL/L (21-32); CHLORIDE 97 MMOL/L (98-107); CREATININE 6.2 MG/DL (0.55-1.30); PHOSPHORUS 3.3 MG/DL (2.5-4.9); POTASSIUM 4.3 MMOL/L (3.5-5.1); SODIUM 133 MMOL/L (136-145)
[2017-12-09] MEDS: Linezolid 600mg/300mL Premix IVPB SCH ×2 (09:57→20:34)
[2017-12-09] MEDS: Pantoprazole Inj IVP SCH ×2 (09:58→20:33)
[2017-12-09] MEDS: Allopurinol 100mg Tab ORAL SCH (09:58)
[2017-12-09] MEDS: Fluconazole 100mg tab ORAL SCH (09:58)
[2017-12-09] MEDS: Heparin 5000 units/ml inj SUBQ SCH ×2 (10:02→21:00)
--- NOTE | 2017-12-09 11:33 | Pulmonolgy Critical Care Note ---
Critical Care - Asmt/Plan Problems: (1) Acute respiratory failure (2) Bacteremia (3) ATN (acute tubular necrosis) (4) Acute encephalopathy (5) Aspiration pnemonia vs HCAP (6) Likely obesity hypoventilation syndrome (7) Elevated liver enzymes Respiratory: monitor respiratory rate, adjust FIO2, CXR Cardiac: continue to monitor HR/BP, other - add hydralazine for high BP Renal: F/U I&O, keep IV fluid, check electrolytes, other - HD prn Infectious Disease: check cultures Gastrointestinal: continue feedings/current rate Endocrine: monitor blood sugar Hematologic: monitor H/H, transfuse if hgb<8.5 Neurologic: PRN Ativan, PRN Morphine, keep patient comfortable Affect: PRN ativan Prophylaxis: Protonix Disposition: keep in ICU Time Spent (Minutes): 40 Notes Reviewed: cardio, 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 with: nurses, consultants, medical case workernon destructive evaluation manager - Objective Last 24 Hour Vital Signs Date Time Temp Pulse Resp B/P (MAP) Pulse Ox O2 Delivery O2 Flow Rate FiO2 12/09/17 11:00 42 19 167/68 94 Mechanical Ventilator 30 12/09/17 10:56 56 18 Mechanical Ventilator 30 12/09/17 10:00 50 16 156/64 96 Mechanical Ventilator 30 12/09/17 09:59 98.1 12/09/17 09:11 56 19 30 12/09/17 09:00 50 16 156/64 96 Mechanical Ventilator 30 12/09/17 08:00 30 12/09/17 08:00 39 12/09/17 08:00 50 16 156/58 96 Mechanical Ventilator 30 12/09/17 07:05 40 16 30 12/09/17 07:00 98.1 50 16 156/58 96 Mechanical Ventilator 30 98.1 12/09/17 06:00 50 16 156/58 96 Mechanical Ventilator 30 12/09/17 05:00 39 17 155/57 94 Mechanical Ventilator 30 12/09/17 04:33 37 15 30 12/09/17 04:05 30 12/09/17 04:00 51 12/09/17 04:00 98.6 50 16 154/56 98 Mechanical Ventilator 30 98.6 12/09/17 03:30 35 16 30 12/09/17 03:00 37 18 170/67 95 Mechanical Ventilator 30 12/09/17 02:00 39 16 158/62 96 Mechanical Ventilator 30 12/09/17 01:30 45 18 30 12/09/17 01:00 41 20 179/69 95 Mechanical Ventilator 30 12/09/17 00:00 98.4 48 13 161/64 98 Mechanical Ventilator 30 98.4 12/09/17 00:00 30 12/09/17 00:00 48 12/08/17 23:21 50 15 30 12/08/17 23:00 40 13 155/64 99 Mechanical Ventilator 30 12/08/17 22:00 44 10 175/69 100 Mechanical Ventilator 30 12/08/17 21:30 54 17 30 12/08/17 21:00 47 17 163/66 96 Mechanical Ventilator 30 12/08/17 20:00 49 12/08/17 20:00 98.6 49 17 169/71 96 Mechanical Ventilator 30 98.6 12/08/17 20:00 30 12/08/17 19:30 56 22 30 12/08/17 19:00 55 29 165/69 98 Mechanical Ventilator 30 12/08/17 18:00 59 40 154/68 98 Mechanical Ventilator 30 12/08/17 17:00 53 29 140/82 97 Mechanical Ventilator 30 12/08/17 16:56 61 17 30 12/08/17 16:00 98.3 53 36 129/59 38 Mechanical Ventilator 30 98.3 12/08/17 16:00 51 12/08/17 16:00 30 12/08/17 15:00 55 27 111/44 96 Mechanical Ventilator 30 12/08/17 14:32 60 19 30 12/08/17 14:00 53 35 115/51 99 Mechanical Ventilator 30 12/08/17 13:00 53 39 112/49 100 Mechanical Ventilator 30 12/08/17 12:49 62 16 30 12/08/17 12:00 52 12/08/17 12:00 97.6 56 29 109/49 98 Mechanical Ventilator 30 97.6 12/08/17 12:00 30 Status: awake Condition: critical Neck: full ROM Heart: HR/BP stable Abdomen: soft, non-tender, feeding tube Extremities: no C/C/E, edema Micro: Microbiology Date/Time Source Procedure Growth Status 12/06/17 12:40 Urine,Clean Catch Urine Culture - Final Tamia Tropicalis Tamia Albicans Complete Accucheck: 212 Critical Care - Subjective ROS Limited/Unobtainable: No ICU Day: 5 Intubation Day: 5 Condition: critical EKG Rhythm: Sinus Rhythm FI02: 30 Vent Support Breath Rate: 16 Vent Support Mode: AC Vent Tidal Volume: 600 Sputum Amount: Small PEEP: 5.0 PIP: 40 Tube Feeding Amount: 30 I&O: Intake and Output 12/08/17 12/09/17 19:00 07:00 Intake Total 1020 ml 760 ml Output Total 520 ml 440 ml Balance 500 ml 320 ml Intake Free Water 165 ml IV Total 455 ml 400 ml Tube Feeding 360 ml 360 ml Other 40 ml Output Urine Total 520 ml 440 ml # Bowel Movements 3 CXR: interstitial edema ET-Tube: 7.5 ET Position: 25 Labs: Laboratory Tests Test 12/09/17 04:05 12/09/17 09:15 White Blood Count 8.0 K/UL (4.8-10.8) Red Blood Count 4.20 M/UL (4.20-5.40) Hemoglobin 12.3 G/DL (12.0-16.0) Hematocrit 38.5 % (37.0-47.0) Mean Corpuscular Volume 92 FL (80-99) Mean Corpuscular Hemoglobin 29.3 PG (27.0-31.0) Mean Corpuscular Hemoglobin Concent 31.9 G/DL (32.0-36.0) L Red Cell Distribution Width 15.5 % (11.6-14.8) H Platelet Count 254 K/UL (150-450) Mean Platelet Volume 7.5 FL (6.5-10.1) Neutrophils (%) (Auto) 70.8 % (45.0-75.0) Lymphocytes (%) (Auto) 24.6 % (20.0-45.0) Monocytes (%) (Auto) 4.1 % (1.0-10.0) Eosinophils (%) (Auto) 0.0 % (0.0-3.0) Basophils (%) (Auto) 0.5 % (0.0-2.0) Sodium Level 133 MMOL/L (136-145) L Potassium Level 4.3 MMOL/L (3.5-5.1) Chloride Level 97 MMOL/L (98-107) L Carbon Dioxide Level 28 MMOL/L (21-32) Anion Gap 9 mmol/L (5-15) Blood Urea Nitrogen 39 mg/dL (7-18) H Creatinine 6.2 MG/DL (0.55-1.30) H Estimat Glomerular Filtration Rate 8.4 mL/min (>60) Glucose Level 247 MG/DL (74-106) #H Calcium Level 9.3 MG/DL (8.5-10.1) Phosphorus Level 3.3 MG/DL (2.5-4.9) Magnesium Level 1.9 MG/DL (1.8-2.4) Total Bilirubin 0.9 MG/DL (0.2-1.0) Aspartate Amino Transf (AST/SGOT) 124 U/L (15-37) H Alanine Aminotransferase (ALT/SGPT) 157 U/L (12-78) H Alkaline Phosphatase 244 U/L (46-116) H Total Protein 8.0 G/DL (6.4-8.2) Albumin 2.1 G/DL (3.4-5.0) L Globulin 5.9 g/dL Albumin/Globulin Ratio 0.4 (1.0-2.7) L Arterial Blood pH 7.420 (7.350-7.450) Arterial Blood Partial Pressure CO2 48.0 mmHg (35.0-45.0) H Arterial Blood Partial Pressure O2 102.0 mmHg (75.0-100.0) H Arterial Blood HCO3 31.0 mmol/L (22.0-26.0) H Arterial Blood Oxygen Saturation 98.0 % (92.0-98.0) Arterial Blood Base Excess 5 Doroteo Test Positive Yariel Malone MD December 09, 2017 11:32
[2017-12-09] MEDS: cefTRIAXone 1 GM in D5W 50 ML IVPB SCH (14:01)
--- NOTE | 2017-12-09 14:30 | Cardiac Electrophysiology PN ---
Subjective Subjective [id number]. ef 55%. BRDAY MAY BE DUE TO MIDODRINE THAT WAS STOPPED TODAY, ESRD ON HD Objective Last 24 Hour Vital Signs Date Time Temp Pulse Resp B/P (MAP) Pulse Ox O2 Delivery O2 Flow Rate FiO2 12/09/17 13:00 41 25 140/51 91 Mechanical Ventilator 30 12/09/17 12:59 41 16 40 12/09/17 12:00 40 19 140/55 89 Mechanical Ventilator 30 12/09/17 12:00 40 12/09/17 12:00 30 12/09/17 11:35 167/68 12/09/17 11:29 41 16 30 12/09/17 11:00 42 19 167/68 94 Mechanical Ventilator 30 12/09/17 10:58 98.1 12/09/17 10:56 56 18 Mechanical Ventilator 30 12/09/17 10:00 50 16 156/64 96 Mechanical Ventilator 30 12/09/17 09:59 98.1 12/09/17 09:11 56 19 30 12/09/17 09:00 50 16 156/64 96 Mechanical Ventilator 30 12/09/17 08:00 30 12/09/17 08:00 39 12/09/17 08:00 50 16 156/58 96 Mechanical Ventilator 30 12/09/17 07:05 40 16 30 12/09/17 07:00 98.1 50 16 156/58 96 Mechanical Ventilator 30 98.1 12/09/17 06:00 50 16 156/58 96 Mechanical Ventilator 30 12/09/17 05:00 39 17 155/57 94 Mechanical Ventilator 30 12/09/17 04:33 37 15 30 12/09/17 04:05 30 12/09/17 04:00 51 12/09/17 04:00 98.6 50 16 154/56 98 Mechanical Ventilator 30 98.6 12/09/17 03:30 35 16 30 12/09/17 03:00 37 18 170/67 95 Mechanical Ventilator 30 12/09/17 02:00 39 16 158/62 96 Mechanical Ventilator 30 12/09/17 01:30 45 18 30 12/09/17 01:00 41 20 179/69 95 Mechanical Ventilator 30 12/09/17 00:00 98.4 48 13 161/64 98 Mechanical Ventilator 30 98.4 12/09/17 00:00 30 12/09/17 00:00 48 12/08/17 23:21 50 15 30 12/08/17 23:00 40 13 155/64 99 Mechanical Ventilator 30 12/08/17 22:00 44 10 175/69 100 Mechanical Ventilator 30 12/08/17 21:30 54 17 30 12/08/17 21:00 47 17 163/66 96 Mechanical Ventilator 30 12/08/17 20:00 49 12/08/17 20:00 98.6 49 17 169/71 96 Mechanical Ventilator 30 98.6 12/08/17 20:00 30 12/08/17 19:30 56 22 30 12/08/17 19:00 55 29 165/69 98 Mechanical Ventilator 30 12/08/17 18:00 59 40 154/68 98 Mechanical Ventilator 30 12/08/17 17:00 53 29 140/82 97 Mechanical Ventilator 30 12/08/17 16:56 61 17 30 12/08/17 16:00 98.3 53 36 129/59 38 Mechanical Ventilator 30 98.3 12/08/17 16:00 51 12/08/17 16:00 30 12/08/17 15:00 55 27 111/44 96 Mechanical Ventilator 30 12/08/17 14:32 60 19 30 Intake and Output 12/08/17 12/09/17 19:00 07:00 Intake Total 1020 ml 760 ml Output Total 520 ml 440 ml Balance 500 ml 320 ml Intake Free Water 165 ml IV Total 455 ml 400 ml Tube Feeding 360 ml 360 ml Other 40 ml Output Urine Total 520 ml 440 ml # Bowel Movements 3 Laboratory Tests Test 12/09/17 04:05 12/09/17 09:15 White Blood Count 8.0 K/UL (4.8-10.8) Red Blood Count 4.20 M/UL (4.20-5.40) Hemoglobin 12.3 G/DL (12.0-16.0) Hematocrit 38.5 % (37.0-47.0) Mean Corpuscular Volume 92 FL (80-99) Mean Corpuscular Hemoglobin 29.3 PG (27.0-31.0) Mean Corpuscular Hemoglobin Concent 31.9 G/DL (32.0-36.0) L Red Cell Distribution Width 15.5 % (11.6-14.8) H Platelet Count 254 K/UL (150-450) Mean Platelet Volume 7.5 FL (6.5-10.1) Neutrophils (%) (Auto) 70.8 % (45.0-75.0) Lymphocytes (%) (Auto) 24.6 % (20.0-45.0) Monocytes (%) (Auto) 4.1 % (1.0-10.0) Eosinophils (%) (Auto) 0.0 % (0.0-3.0) Basophils (%) (Auto) 0.5 % (0.0-2.0) Sodium Level 133 MMOL/L (136-145) L Potassium Level 4.3 MMOL/L (3.5-5.1) Chloride Level 97 MMOL/L (98-107) L Carbon Dioxide Level 28 MMOL/L (21-32) Anion Gap 9 mmol/L (5-15) Blood Urea Nitrogen 39 mg/dL (7-18) H Creatinine 6.2 MG/DL (0.55-1.30) H Estimat Glomerular Filtration Rate 8.4 mL/min (>60) Glucose Level 247 MG/DL (74-106) #H Calcium Level 9.3 MG/DL (8.5-10.1) Phosphorus Level 3.3 MG/DL (2.5-4.9) Magnesium Level 1.9 MG/DL (1.8-2.4) Total Bilirubin 0.9 MG/DL (0.2-1.0) Aspartate Amino Transf (AST/SGOT) 124 U/L (15-37) H Alanine Aminotransferase (ALT/SGPT) 157 U/L (12-78) H Alkaline Phosphatase 244 U/L (46-116) H Total Protein 8.0 G/DL (6.4-8.2) Albumin 2.1 G/DL (3.4-5.0) L Globulin 5.9 g/dL Albumin/Globulin Ratio 0.4 (1.0-2.7) L Arterial Blood pH 7.420 (7.350-7.450) Arterial Blood Partial Pressure CO2 48.0 mmHg (35.0-45.0) H Arterial Blood Partial Pressure O2 102.0 mmHg (75.0-100.0) H Arterial Blood HCO3 31.0 mmol/L (22.0-26.0) H Arterial Blood Oxygen Saturation 98.0 % (92.0-98.0) Arterial Blood Base Excess 5 Doroteo Test Positive Toluie,Melvin MD December 09, 2017 14:30
--- NOTE | 2017-12-09 15:37 | Nephrology Progress Note ---
Assessment/Plan Problem List: (1) Acute renal failure (ARF) (2) Acute respiratory failure (3) Acute on chronic diastolic (congestive) heart failure (4) Elevated liver enzymes Assessment - Acute respiratory failure - Bacteremia - ATN (acute tubular necrosis), ARF - Acute encephalopathy - Aspiration pnemonia vs HCAP - Likely obesity hypoventilation syndrome - Elevated liver enzymes Plan acute renal failure, dialysed 12/07 low BP resolved resp failure , intubated, resp management obese start Hydrocortisone Midodrine HD today start hydralazine 10 Q6 Subjective ROS Limited/Unobtainable: Yes Objective Objective Last 24 Hour Vital Signs Date Time Temp Pulse Resp B/P (MAP) Pulse Ox O2 Delivery O2 Flow Rate FiO2 12/09/17 15:19 52 20 40 12/09/17 15:14 98.1 12/09/17 13:00 41 25 140/51 91 Mechanical Ventilator 30 12/09/17 12:59 41 16 40 12/09/17 12:00 40 19 140/55 89 Mechanical Ventilator 30 12/09/17 12:00 40 12/09/17 12:00 30 12/09/17 11:35 167/68 12/09/17 11:29 41 16 30 12/09/17 11:00 42 19 167/68 94 Mechanical Ventilator 30 12/09/17 10:58 98.1 12/09/17 10:56 56 18 Mechanical Ventilator 30 12/09/17 10:00 50 16 156/64 96 Mechanical Ventilator 30 12/09/17 09:59 98.1 12/09/17 09:11 56 19 30 12/09/17 09:00 50 16 156/64 96 Mechanical Ventilator 30 12/09/17 08:00 30 12/09/17 08:00 39 12/09/17 08:00 50 16 156/58 96 Mechanical Ventilator 30 12/09/17 07:05 40 16 30 12/09/17 07:00 98.1 50 16 156/58 96 Mechanical Ventilator 30 98.1 12/09/17 06:00 50 16 156/58 96 Mechanical Ventilator 30 12/09/17 05:00 39 17 155/57 94 Mechanical Ventilator 30 12/09/17 04:33 37 15 30 12/09/17 04:05 30 12/09/17 04:00 51 12/09/17 04:00 98.6 50 16 154/56 98 Mechanical Ventilator 30 98.6 12/09/17 03:30 35 16 30 12/09/17 03:00 37 18 170/67 95 Mechanical Ventilator 30 12/09/17 02:00 39 16 158/62 96 Mechanical Ventilator 30 12/09/17 01:30 45 18 30 12/09/17 01:00 41 20 179/69 95 Mechanical Ventilator 30 12/09/17 00:00 98.4 48 13 161/64 98 Mechanical Ventilator 30 98.4 12/09/17 00:00 30 12/09/17 00:00 48 12/08/17 23:21 50 15 30 12/08/17 23:00 40 13 155/64 99 Mechanical Ventilator 30 12/08/17 22:00 44 10 175/69 100 Mechanical Ventilator 30 12/08/17 21:30 54 17 30 12/08/17 21:00 47 17 163/66 96 Mechanical Ventilator 30 12/08/17 20:00 49 12/08/17 20:00 98.6 49 17 169/71 96 Mechanical Ventilator 30 98.6 12/08/17 20:00 30 12/08/17 19:30 56 22 30 12/08/17 19:00 55 29 165/69 98 Mechanical Ventilator 30 12/08/17 18:00 59 40 154/68 98 Mechanical Ventilator 30 12/08/17 17:00 53 29 140/82 97 Mechanical Ventilator 30 12/08/17 16:56 61 17 30 12/08/17 16:00 98.3 53 36 129/59 38 Mechanical Ventilator 30 98.3 12/08/17 16:00 51 12/08/17 16:00 30 Intake and Output 12/08/17 12/09/17 19:00 07:00 Intake Total 1020 ml 760 ml Output Total 520 ml 440 ml Balance 500 ml 320 ml Intake Free Water 165 ml IV Total 455 ml 400 ml Tube Feeding 360 ml 360 ml Other 40 ml Output Urine Total 520 ml 440 ml # Bowel Movements 3 Laboratory Tests 12/09/17 04:05: White Blood Count 8.0, Red Blood Count 4.20, Hemoglobin 12.3, Hematocrit 38.5, Mean Corpuscular Volume 92, Mean Corpuscular Hemoglobin 29.3, Mean Corpuscular Hemoglobin Concent 31.9L, Red Cell Distribution Width 15.5H, Platelet Count 254 , Mean Platelet Volume 7.5, Neutrophils (%) (Auto) 70.8, Lymphocytes (%) (Auto) 24.6, Monocytes (%) (Auto) 4.1, Eosinophils (%) (Auto) 0.0, Basophils (%) (Auto ) 0.5, Sodium Level 133L, Potassium Level 4.3, Chloride Level 97L, Carbon Dioxide Level 28, Anion Gap 9, Blood Urea Nitrogen 39H, Creatinine 6.2H, Estimat Glomerular Filtration Rate 8.4, Glucose Level 247#H, Calcium Level 9.3, Phosphorus Level 3.3, Magnesium Level 1.9, Total Bilirubin 0.9, Aspartate Amino Transf (AST/SGOT) 124H, Alanine Aminotransferase (ALT/SGPT) 157H, Alkaline Phosphatase 244H, Total Protein 8.0, Albumin 2.1L, Globulin 5.9, Albumin/ Globulin Ratio 0.4L 12/09/17 09:15: Arterial Blood pH 7.420, Arterial Blood Partial Pressure CO2 48.0H, Arterial Blood Partial Pressure O2 102.0H, Arterial Blood HCO3 31.0H, Arterial Blood Oxygen Saturation 98.0, Arterial Blood Base Excess 5, Doroteo Test Positive Height (Feet): 5 Height (Inches): 8.00 Weight (Pounds): 450 General Appearance: no apparent distress Cardiovascular: bradycardia Respiratory/Chest: decreased breath sounds Abdomen: other - obese AGUSTIN CONTRERAS December 09, 2017 15:37
--- NOTE | 2017-12-09 15:43 | Cardiology Report ---
APPROVED REPORT EKG Measurement Heart [id number] [place] [id number] Sinus bradycardia with 1st degree AV block Otherwise normal ECG
--- NOTE | 2017-12-09 16:16 | General Progress Note ---
Progress Note Progress Note Surgery: looks okay. doing well. plan for trach tomorrow consent obtained after discussing care and plan NPO p MN IV fluids OR in AM Stevan Romero December 09, 2017 16:16
[2017-12-09 16:53] LABS: INR 1.1 (0.9-1.1)
[2017-12-09] MEDS: HydrALAZINE 10mg Tab NG SCH ×2 (18:31)
--- NOTE | 2017-12-09 19:45 | Consultation ---
DATE OF CONSULTATION: 12/09/2017 CARDIOLOGY CONSULTATION CONSULTING PHYSICIAN: Melvin Bejarano M.D. REFERRING PHYSICIAN: Brittany Edmond M.D. REASON FOR CONSULTATION: Bradycardia, heart rate dropping to 30s. HISTORY OF PRESENT ILLNESS: The patient is a very pleasant 57-year-old -[place]iss lady with history of morbid obesity, hypertension, diabetes, gastroesophageal reflux disease was admitted to the hospital with hypotension and respiratory failure requiring intubation. The patient was altered for several days, on BiPAP. The patient is intubated in intensive care, however, noted to be bradycardic with heart rate dropping to 30s, in sinus rhythm. Cardiac Electrophysiology consultation was obtained for further evaluation and management. REVIEW OF SYSTEMS: Cannot be obtained, as the patient is currently intubated on the ventilator. PAST MEDICAL HISTORY: 1. Hypertension. 2. Diabetes. 3. Gastroesophageal reflux disease. 4. Morbid obesity. 5. History of respiratory failure in the past. FAMILY HISTORY: Noncontributory. SOCIAL HISTORY: Does not smoke or drink alcohol. PHYSICAL EXAMINATION: VITAL SIGNS: Blood pressure is 140/61, pulse is 41, respirations 18, and she is afebrile. HEAD AND NECK: No JVD. She is orally intubated. LUNGS: Coarse rhonchi. CARDIOVASCULAR: Bradycardic. S1 and S2 with no gallop. ABDOMEN: Morbidly obese. EXTREMITIES: There is 1+ pitting edema. LABORATORY AND DIAGNOSTIC DATA: White count of 8, hemoglobin 12.2, hematocrit 38.5, and platelet count of 254,000. Sodium was 132, potassium 4.3, BUN of 39, creatinine of 6.2, and glucose of 247. AST is 124 and ALT is 157 and alkaline phosphatase is 244. BNP 724. Troponin is negative. TSH is 2.87. ASSESSMENT AND PLAN: 1. Sinus bradycardia with no evidence of heart block. The patient was on midodrine for low blood pressure that was discontinued that can potentially put risk of bradycardia. Watch the patient on telemetry. If the patient continues to be bradycardic despite being off of midodrine, may need a dobutamine drip. the patient is alert and I was able to lower her blood pressure at this time. 2. Respiratory failure with hypoxemia and hypercapnia. The patient has had in the past and currently is scheduled for tracheostomy placement tomorrow. 3. Hypertension, on hydralazine. 4. Morbid obesity. 5. History of supraventricular tachycardia. 6. Elevated liver enzymes. 7. Renal failure. The patient is also on hemodialysis per Dr. Hernandez. Thank you very much, Dr. Edmond, for allowing me to participate in the care of this patient. Please do not hesitate to contact me for any questions regarding my evaluation. Melvin Bejarano M.D. DR: SEVERIANO JOB#: [id number] CC:
[2017-12-09] MEDS ORDERED: Dyna-Hex 2% Top Sol 2oz TOPIC SCH (20:00)
[2017-12-09] MEDS: Acetaminophen 650mg/20.3ml NG PRN (22:07)
--- NOTE | 2017-12-09 23:04 | General Progress Note ---
Assessment/Plan Assessment/Plan 1. Coagulopathy, potentially secondary to liver problem, liver disease. --> On anticoag 2. The patient has transaminitis as well as elevated --> Continue to closely monitor for improvement. Albumin of 2.1 as well. 3. Anemia due to underlying chronic disease. --> Continue to closely monitor. Anemia workup has been reviewed. --> Blood transfusion not required unless symptomatic or hgb <7 --> Hgb has been stable. 4. Transaminitis, potentially secondary to shock liver versus other cause. 5. Acute tubular necrosis with elevated creatinine. Continue to closely monitor. 6. Likely obesity hypoventilation syndrome. 7. Respiratory failure, status post intubation. 8. Leukocytosis, potentially secondary to infection, currently improved. 9. Acute kidney injury. The patient's creatinine within normal limits on admission, potentially secondary to shock. 10. Elevated liver enzymes. Subjective Date patient seen: December 08, 2017 Constitutional: Denies: no symptoms, chills, diaphoresis, fever, malaise, weakness, other HEENT: Denies: no symptoms, eye pain, blurred vision, tearing, double vision, ear pain, ear discharge, nose pain, nose congestion, throat pain, throat swelling, mouth pain, mouth swelling, other Cardiovascular: Denies: no symptoms, chest pain, edema, irregular heart rate, lightheadedness, palpitations, syncope, other Respiratory: Denies: no symptoms, cough, orthopnea, shortness of breath, SOB with excertion, SOB at rest, sputum, stridor, wheezing, other Gastrointestinal/Abdominal: Denies: no symptoms, abdomen distended, abdominal pain, black stools, tarry stools, blood in stool, constipated, diarrhea, difficulty swallowing, nausea, poor appetite, poor fluid intake, rectal bleeding , vomiting, other Genitourinary: Denies: no symptoms, burning, discharge, frequency, flank pain, hematuria, incontinence, pain, urgency, other Neurologic/Psychiatric: Denies: no symptoms, anxiety, depressed, emotional problems, headache, numbness, paresthesia, pre-existing deficit, seizure, tingling, tremors, weakness, other Hematologic/Lymphatic: Reports: anemia Allergies: Coded Allergies: ASPARTAME (Verified Allergy, Unknown, 11/30/17) Headache Subjective Ongoing tube feeds. In ICU. Bradycardic. No fever. Objective Last 24 Hour Vital Signs Date Time Temp Pulse Resp B/P (MAP) Pulse Ox O2 Delivery O2 Flow Rate FiO2 12/09/17 22:49 4 17 40 12/09/17 22:00 47 16 116/46 99 Mechanical Ventilator 40 12/09/17 21:00 41 16 133/49 92 Mechanical Ventilator 40 12/09/17 20:36 50 18 40 12/09/17 20:00 98.6 42 16 134/52 92 Mechanical Ventilator 40 98.6 12/09/17 20:00 30 12/09/17 19:09 48 20 40 12/09/17 18:54 Mechanical Ventilator 40 12/09/17 18:48 97.8 46 20 145/50 Mechanical Ventilator 40 97.8 12/09/17 18:31 153/63 12/09/17 18:00 37 16 153/63 92 Mechanical Ventilator 30 12/09/17 17:00 40 16 158/63 95 Mechanical Ventilator 30 12/09/17 16:54 38 18 40 12/09/17 16:13 98.1 12/09/17 16:00 35 12/09/17 16:00 30 12/09/17 16:00 50 19 157/66 92 Mechanical Ventilator 30 12/09/17 15:19 52 20 40 12/09/17 15:14 98.1 12/09/17 15:00 Mechanical Ventilator 40 12/09/17 15:00 97.3 36 20 155/78 Mechanical Ventilator 40 97.3 12/09/17 15:00 63 20 155/78 94 Mechanical Ventilator 12/09/17 14:00 50 20 161/64 93 Mechanical Ventilator 30 12/09/17 13:00 41 25 140/51 91 Mechanical Ventilator 30 12/09/17 12:59 41 16 40 12/09/17 12:00 40 19 140/55 89 Mechanical Ventilator 30 12/09/17 12:00 40 12/09/17 12:00 30 12/09/17 11:35 167/68 12/09/17 11:29 41 16 30 12/09/17 11:00 42 19 167/68 94 Mechanical Ventilator 30 12/09/17 10:56 56 18 Mechanical Ventilator 30 12/09/17 10:00 50 16 156/64 96 Mechanical Ventilator 30 12/09/17 09:59 98.1 12/09/17 09:11 56 19 30 12/09/17 09:00 50 16 156/64 96 Mechanical Ventilator 30 12/09/17 08:00 30 12/09/17 08:00 39 12/09/17 08:00 50 16 156/58 96 Mechanical Ventilator 30 12/09/17 07:05 40 16 30 12/09/17 07:00 98.1 50 16 156/58 96 Mechanical Ventilator 30 98.1 12/09/17 06:00 50 16 156/58 96 Mechanical Ventilator 30 12/09/17 05:00 39 17 155/57 94 Mechanical Ventilator 30 12/09/17 04:33 37 15 30 12/09/17 04:05 30 12/09/17 04:00 51 12/09/17 04:00 98.6 50 16 154/56 98 Mechanical Ventilator 30 98.6 12/09/17 03:30 35 16 30 12/09/17 03:00 37 18 170/67 95 Mechanical Ventilator 30 12/09/17 02:00 39 16 158/62 96 Mechanical Ventilator 30 12/09/17 01:30 45 18 30 12/09/17 01:00 41 20 179/69 95 Mechanical Ventilator 30 12/09/17 00:00 98.4 48 13 161/64 98 Mechanical Ventilator 30 98.4 12/09/17 00:00 30 12/09/17 00:00 48 12/08/17 23:21 50 15 30 Intake and Output 12/08/17 12/09/17 19:00 07:00 Intake Total 1020 ml 760 ml Output Total 520 ml 440 ml Balance 500 ml 320 ml Intake Free Water 165 ml IV Total 455 ml 400 ml Tube Feeding 360 ml 360 ml Other 40 ml Output Urine Total 520 ml 440 ml # Bowel Movements 3 Laboratory Tests 12/09/17 04:05: White Blood Count 8.0, Red Blood Count 4.20, Hemoglobin 12.3, Hematocrit 38.5, Mean Corpuscular Volume 92, Mean Corpuscular Hemoglobin 29.3, Mean Corpuscular Hemoglobin Concent 31.9L, Red Cell Distribution Width 15.5H, Platelet Count 254 , Mean Platelet Volume 7.5, Neutrophils (%) (Auto) 70.8, Lymphocytes (%) (Auto) 24.6, Monocytes (%) (Auto) 4.1, Eosinophils (%) (Auto) 0.0, Basophils (%) (Auto ) 0.5, Sodium Level 133L, Potassium Level 4.3, Chloride Level 97L, Carbon Dioxide Level 28, Anion Gap 9, Blood Urea Nitrogen 39H, Creatinine 6.2H, Estimat Glomerular Filtration Rate 8.4, Glucose Level 247#H, Calcium Level 9.3, Phosphorus Level 3.3, Magnesium Level 1.9, Total Bilirubin 0.9, Aspartate Amino Transf (AST/SGOT) 124H, Alanine Aminotransferase (ALT/SGPT) 157H, Alkaline Phosphatase 244H, Total Protein 8.0, Albumin 2.1L, Globulin 5.9, Albumin/ Globulin Ratio 0.4L 12/09/17 09:15: Arterial Blood pH 7.420, Arterial Blood Partial Pressure CO2 48.0H, Arterial Blood Partial Pressure O2 102.0H, Arterial Blood HCO3 31.0H, Arterial Blood Oxygen Saturation 98.0, Arterial Blood Base Excess 5, Doroteo Test Positive 12/09/17 15:30: Prothrombin Time 12.0H, Prothromb Time International Ratio 1.1, Activated Partial Thromboplast Time 30 Height (Feet): 5 Height (Inches): 8.00 Weight (Pounds): 450 General Appearance: lethargic Cardiovascular: bradycardia Respiratory/Chest: decreased breath sounds Abdomen: soft Edema: mild edema Jem Palmer MD December 09, 2017 23:04
[2017-12-10] VITALS (26 sets, daily range): BP systolic 117–197; BP diastolic 36–88
[2017-12-10 05:03] LABS: BASOPHILS % (AUTO) 0.4 % (0.0-2.0); EOSINOPHILS % (AUTO) 0.2 % (0.0-3.0); HEMATOCRIT 35.1 % (37.0-47.0); HEMOGLOBIN 11.2 G/DL (12.0-16.0); LYMPHOCYTES % (AUTO) 26.9 % (20.0-45.0); MEAN CORPUSCULAR VOLUME 93 FL (80-99); MONOCYTES % (AUTO) 10.1 % (1.0-10.0); NEUTROPHILS % (AUTO) 62.5 % (45.0-75.0); PLATELET COUNT 249 K/UL (150-450); RED BLOOD COUNT 3.79 M/UL (4.20-5.40); RED CELL DISTRIBUTION WIDTH 15.1 % (11.6-14.8)
[2017-12-10 05:14] LABS: ALANINE AMINOTRANSFERASE 116 U/L (12-78); ALBUMIN 2.3 G/DL (3.4-5.0); ALBUMIN/GLOBULIN RATIO 0.5 (1.0-2.7); ALKALINE PHOSPHATASE 224 U/L (46-116); ANION GAP 7 mmol/L (5-15); ASPARTATE AMINO TRANSFERASE 67 U/L (15-37); BILIRUBIN,TOTAL 0.7 MG/DL (0.2-1.0); BLOOD UREA NITROGEN 37 mg/dL (7-18); CALCIUM 8.6 MG/DL (8.5-10.1); CARBON DIOXIDE 33 MMOL/L (21-32); CHLORIDE 98 MMOL/L (98-107); CREATININE 5.2 MG/DL (0.55-1.30); PHOSPHORUS 2.7 MG/DL (2.5-4.9); POTASSIUM 3.6 MMOL/L (3.5-5.1); SODIUM 138 MMOL/L (136-145)
[2017-12-10] MEDS: NovoLOG Insulin Flexpen SUBQ SCH ×4 (06:00→23:49)
[2017-12-10] MEDS: HydrALAZINE 10mg Tab NG SCH ×3 (06:00→11:49)
[2017-12-10] MEDS: Heparin 5000 units/ml inj SUBQ SCH ×2 (07:31→21:19)
[2017-12-10] MEDS: Pantoprazole Inj IVP SCH ×2 (08:08→20:46)
[2017-12-10] MEDS: Linezolid 600mg/300mL Premix IVPB SCH ×2 (08:08→20:46)
[2017-12-10] MEDS: Hydrocortisone 100mg Inj IV SCH (08:09)
[2017-12-10] MEDS: Allopurinol 100mg Tab ORAL SCH (09:00)
[2017-12-10] MEDS: Fluconazole 100mg tab ORAL SCH (09:00)
[2017-12-10] MEDS ORDERED: NS 500ML ONE (09:16)
[2017-12-10] MEDS ORDERED: NS 275ml ONE (09:16)
[2017-12-10] MEDS ORDERED: Tubing IV Secondary IV ONE (09:16)
--- NOTE | 2017-12-10 09:51 | Anethesia Preoperative Eval ---
Anesthesia Pre-op PMH/ROS General Date of Evaluation: December 10, 2017 Time of Evaluation: 09:45 Anesthesiologist: Nadeen ASA Score: ASA 4 Mallampati Score Class I : Soft palate, uvula, fauces, pillars visible Class II: Soft palate, uvula, fauces visible Class III: Soft palate, base of uvula visible Class IV: Only hard plate visible Mallampati Classification: Class III Surgeon: Kimberly Diagnosis: Respiatory failure Surgical Procedure: Tracheostomy Anesthesia History: none Family History: no anesthesia problems Allergies: Coded Allergies: ASPARTAME (Verified Allergy, Unknown, 11/30/17) Headache Past Medical History Cardiovascular: Reports: HTN, CAD, other - CHF Pulmonary: Reports: BASHIR, other - Recurrent RF; Denies: asthma, COPD Gastrointestinal/Genitourinary: Reports: GERD, ESRD - on HD; Denies: CRI, other Neurologic/Psychiatric: Reports: depression/anxiety Endocrine: Reports: DM; Denies: hypothyroidism, steroids, other HEENT: Denies: cataract (L), cataract (R), glaucoma, AKUTAN (L), AKUTAN (R), other Hematology/Immune: Reports: anemia - mild; Denies: DVT, bleeding disorder, other Other: obesity - Morbid Obesity PMH Narrative: As above PSxH Narrative: See H&P Anesthesia Pre-op Phys. Exam Physician Exam Last Vital Signs Date Time Temp Pulse Resp B/P (MAP) Pulse Ox O2 Delivery O2 Flow Rate FiO2 12/10/17 09:13 49 17 40 12/10/17 09:00 131/49 98 Mechanical Ventilator 12/10/17 08:00 98.5 98.5 12/07/17 16:45 16.0 Constitutional: NAD Neurologic: CN 2-12 intact Cardiovascular: RRR Respiratory: other - dimiished breath sounds Gastrointestinal: other - Morbid obesity Airway Exam Mallampati Score: Class III - Intubated MO: limited Neck: short ROM: limited Teeth: missing Dentures: no upper, no lower Anesthesia Pre-op A/P Labs Hematology Test 12/10/17 03:50 White Blood Count 11.0 K/UL (4.8-10.8) H Red Blood Count 3.79 M/UL (4.20-5.40) L Hemoglobin 11.2 G/DL (12.0-16.0) L Hematocrit 35.1 % (37.0-47.0) L Mean Corpuscular Volume 93 FL (80-99) Mean Corpuscular Hemoglobin 29.5 PG (27.0-31.0) Mean Corpuscular Hemoglobin Concent 31.9 G/DL (32.0-36.0) L Red Cell Distribution Width 15.1 % (11.6-14.8) H Platelet Count 249 K/UL (150-450) Mean Platelet Volume 7.1 FL (6.5-10.1) Neutrophils (%) (Auto) 62.5 % (45.0-75.0) Lymphocytes (%) (Auto) 26.9 % (20.0-45.0) Monocytes (%) (Auto) 10.1 % (1.0-10.0) H Eosinophils (%) (Auto) 0.2 % (0.0-3.0) Basophils (%) (Auto) 0.4 % (0.0-2.0) Coagulation Test 12/09/17 15:30 Prothrombin Time 12.0 SEC (9.30-11.50) H Prothromb Time International Ratio 1.1 (0.9-1.1) Activated Partial Thromboplast Time 30 SEC (23-33) Chemistry Test 12/10/17 03:50 Sodium Level 138 MMOL/L (136-145) Potassium Level 3.6 MMOL/L (3.5-5.1) Chloride Level 98 MMOL/L (98-107) Carbon Dioxide Level 33 MMOL/L (21-32) H Anion Gap 7 mmol/L (5-15) Blood Urea Nitrogen 37 mg/dL (7-18) H Creatinine 5.2 MG/DL (0.55-1.30) H Estimat Glomerular Filtration Rate 10.3 mL/min (>60) Glucose Level 187 MG/DL (74-106) H Uric Acid 5.3 MG/DL (2.6-7.2) Calcium Level 8.6 MG/DL (8.5-10.1) Phosphorus Level 2.7 MG/DL (2.5-4.9) Magnesium Level 1.9 MG/DL (1.8-2.4) Total Bilirubin 0.7 MG/DL (0.2-1.0) Aspartate Amino Transf (AST/SGOT) 67 U/L (15-37) H Alanine Aminotransferase (ALT/SGPT) 116 U/L (12-78) H Alkaline Phosphatase 224 U/L (46-116) H Troponin I 0.002 ng/mL (0.000-0.056) C-Reactive Protein, Quantitative 6.2 mg/dL (0.00-0.90) H Pro-B-Type Natriuretic Peptide 1734 pg/mL (0-125) H Total Protein 6.8 G/DL (6.4-8.2) Albumin 2.3 G/DL (3.4-5.0) L Globulin 4.5 g/dL Albumin/Globulin Ratio 0.5 (1.0-2.7) L Studies Pre-op Studies: EKG - SR Risk Assessment & Plan Assessment: ASA 4 Plan: GA with ETT ICU care post op Status Change Before Surgery: No Pre-Antibiotics Drug: as scheduled EUGENIE ROCA M.D. December 10, 2017 09:51
--- NOTE | 2017-12-10 09:53 | Diagnostic Imaging Report ---
Indication: Dyspnea Comparison: 12/09/2017 A single view chest radiograph was obtained. Findings: The heart is enlarged. The lungs are clear. Bones are unremarkable. No pleural effusion seen. Right jugular catheter projected over the SVC in good position. Endotracheal tube in good position. Nasogastric tube tip is somewhere below the diaphragm but not visualized. IMPRESSION: No acute disease
[2017-12-10] MEDS ORDERED: fentaNYL 100 mcg/2 mL IV ONE (10:00)
[2017-12-10] MEDS ORDERED: Zemuron 50mg/5ml Inj IV ONE (10:00)
[2017-12-10] MEDS ORDERED: Midazolam 2mg/2ml Inj ONE (10:00)
[2017-12-10] MEDS ORDERED: Lidocaine 1% 10mg/ml/EPI 0.01mg/ml 50ml INJ ONE (10:21)
--- NOTE | 2017-12-10 11:18 | Brief Operative Note ---
Immediate Post Operative Note Operative Note Pre-op Diagnosis: respiratory failure, protected airway necessary, prolonged positive pressure support required Procedure: tracheostomy Findings: consistent w/pre-op dx studies Surgeon: Heather Anesthesiologist: Laura Anesthesia: general, local Specimen: none Complications: none Condition: stable Fluids: see records Estimated Blood Loss: minimal Drains: none Implant(s) used?: Yes - [id number] XLT Stevan Romero December 10, 2017 11:18
--- NOTE | 2017-12-10 11:18 | Immediate Post-Op Evaluation ---
Immediate Post-Op Evalulation Immediate Post-Op Evalulation Procedure: Tracheostomy Date of Evaluation: December 10, 2017 Time of Evaluation: 11:17 IV Fluids: 200 Blood Products: none Estimated Blood Loss: min Urinary Output: none Blood Pressure Systolic: 136 Blood Pressure Diastolic: 72 Pulse Rate: 64 Respiratory Rate: 16 O2 Sat by Pulse Oximetry: 98 Temperature (Fahrenheit): 97.6 Pain Score (1-10): 1 Nausea: No Vomiting: No Complications none Patient Status: no response, ventilated, none Hydration Status: adequate EUGENIE ROCA M.D. December 10, 2017 11:18
--- NOTE | 2017-12-10 11:20 | Pre-Procedure Note/Attestation ---
Pre-Procedure Note/Attestation Complete Prior to Procedure Planned Procedure: not applicable Procedure Narrative: tracheostomy Indications for Procedure Pre-Operative Diagnosis: respiratory failure, protected airway necessary, prolonged positive pressure support required Attestation I attest that I discussed the nature of the procedure; its benefits; risks and complications; and alternatives (and the risks and benefits of such alternatives ), prior to the procedure, with the patient (or the patient's legal retail wireless sales representative). I attest that, if there was a reasonable possibility of needing a blood transfusion, the patient (or the patient's legal retail wireless sales representative) was given the [facility] standardized written summary, pursuant to the [place] Blood Safety Act ([place] Health and Safety Code # 1645, as amended). I attest that I re-evaluated the patient just prior to the surgery and that there has been no change in the patient's H&P, except as documented below: Stevan Romero December 10, 2017 11:20
--- NOTE | 2017-12-10 11:53 | General Progress Note ---
Assessment/Plan Assessment/Plan 1. Coagulopathy, potentially secondary to liver problem, liver disease. --> On anticoag 2. The patient has transaminitis as well as elevated --> Continue to closely monitor for improvement. Albumin of 2.1 as well. 3. Anemia due to underlying chronic disease. --> Continue to closely monitor. Anemia workup has been reviewed. --> Blood transfusion not required unless symptomatic or hgb <7 --> Hgb has been stable. 4. Transaminitis, potentially secondary to shock liver versus other cause. 5. Acute tubular necrosis with elevated creatinine. Continue to closely monitor. 6. Likely obesity hypoventilation syndrome. 7. Respiratory failure, status post intubation. 8. Leukocytosis, potentially secondary to infection, currently improved. 9. Acute kidney injury. The patient's creatinine within normal limits on admission, potentially secondary to shock. 10. Elevated liver enzymes. Subjective Date patient seen: December 09, 2017 Allergies: Coded Allergies: ASPARTAME (Verified Allergy, Unknown, 11/30/17) Headache Subjective Ongoing tube feeds. Continues ICU status. Currently bradycardic. No fever. Objective Last 24 Hour Vital Signs Date Time Temp Pulse Resp B/P (MAP) Pulse Ox O2 Delivery O2 Flow Rate FiO2 12/10/17 11:18 207.7 64 16 98 12/10/17 11:15 58 16 40 12/10/17 09:13 49 17 40 12/10/17 09:00 46 16 131/49 98 Mechanical Ventilator 40 12/10/17 08:00 40 12/10/17 08:00 98.5 49 16 117/42 99 Mechanical Ventilator 40 98.5 12/10/17 08:00 52 12/10/17 07:15 59 20 40 12/10/17 07:00 42 16 124/44 98 Mechanical Ventilator 40 12/10/17 06:00 129/44 12/10/17 06:00 45 16 129/44 96 Mechanical Ventilator 40 12/10/17 05:15 40 18 40 12/10/17 05:00 40 16 121/42 96 Mechanical Ventilator 40 12/10/17 04:01 42 12/10/17 04:00 98.2 40 16 125/44 98 Mechanical Ventilator 40 98.2 12/10/17 04:00 40 12/10/17 03:00 42 16 123/45 99 Mechanical Ventilator 40 12/10/17 02:56 40 17 40 12/10/17 02:00 68 20 127/48 95 Mechanical Ventilator 40 12/10/17 01:11 48 18 40 12/10/17 01:00 47 17 120/49 99 Mechanical Ventilator 40 12/10/17 00:00 98.3 45 16 128/61 99 Mechanical Ventilator 40 98.3 12/10/17 00:00 40 12/10/17 00:00 128/61 12/09/17 23:57 45 12/09/17 23:00 45 16 130/49 100 Mechanical Ventilator 40 12/09/17 22:49 42 17 40 12/09/17 22:00 47 16 116/46 99 Mechanical Ventilator 40 12/09/17 21:00 41 16 133/49 92 Mechanical Ventilator 40 12/09/17 20:36 50 18 40 12/09/17 20:04 37 12/09/17 20:00 98.6 42 16 134/52 92 Mechanical Ventilator 40 98.6 12/09/17 20:00 40 12/09/17 19:09 48 20 40 12/09/17 18:54 Mechanical Ventilator 40 12/09/17 18:48 97.8 46 20 145/50 Mechanical Ventilator 40 97.8 12/09/17 18:31 153/63 12/09/17 18:00 37 16 153/63 92 Mechanical Ventilator 30 12/09/17 17:00 40 16 158/63 95 Mechanical Ventilator 30 12/09/17 16:54 38 18 40 12/09/17 16:13 98.1 12/09/17 16:00 35 12/09/17 16:00 30 12/09/17 16:00 50 19 157/66 92 Mechanical Ventilator 30 12/09/17 15:19 52 20 40 12/09/17 15:14 98.1 12/09/17 15:00 Mechanical Ventilator 40 12/09/17 15:00 97.3 36 20 155/78 Mechanical Ventilator 40 97.3 12/09/17 15:00 63 20 155/78 94 Mechanical Ventilator 12/09/17 14:00 50 20 161/64 93 Mechanical Ventilator 30 12/09/17 13:00 41 25 140/51 91 Mechanical Ventilator 30 12/09/17 12:59 41 16 40 12/09/17 12:00 40 19 140/55 89 Mechanical Ventilator 30 12/09/17 12:00 40 5/2/18 12:00 30 Intake and Output 12/09/17 12/10/17 19:00 07:00 Intake Total 720 ml 750 ml Output Total 4380 ml 305 ml Balance -3660 ml 445 ml IV Total 450 ml 500 ml Tube Feeding 270 ml 150 ml Other 100 ml Output Urine Total 380 ml 305 ml Hemodialysis UF 4000 ml # Bowel Movements 3 2 Laboratory Tests 12/09/17 15:30: Prothrombin Time 12.0H, Prothromb Time International Ratio 1.1, Activated Partial Thromboplast Time 30 12/10/17 03:50: White Blood Count 11.0H, Red Blood Count 3.79L, Hemoglobin 11.2L, Hematocrit 35.1L, Mean Corpuscular Volume 93, Mean Corpuscular Hemoglobin 29.5, Mean Corpuscular Hemoglobin Concent 31.9L, Red Cell Distribution Width 15.1H, Platelet Count 249, Mean Platelet Volume 7.1, Neutrophils (%) (Auto) 62.5, Lymphocytes (%) (Auto) 26.9, Monocytes (%) (Auto) 10.1H, Eosinophils (%) (Auto) 0.2, Basophils (%) (Auto) 0.4, Sodium Level 138, Potassium Level 3.6, Chloride Level 98, Carbon Dioxide Level 33H, Anion Gap 7, Blood Urea Nitrogen 37H, Creatinine 5.2H, Estimat Glomerular Filtration Rate 10.3, Glucose Level 187H, Uric Acid 5.3, Calcium Level 8.6, Phosphorus Level 2.7, Magnesium Level 1.9, Total Bilirubin 0.7, Aspartate Amino Transf (AST/SGOT) 67H, Alanine Aminotransferase (ALT/SGPT) 116H, Alkaline Phosphatase 224H, Troponin I 0.002, C -Reactive Protein, Quantitative 6.2H, Pro-B-Type Natriuretic Peptide 1734H, Total Protein 6.8, Albumin 2.3L, Globulin 4.5, Albumin/Globulin Ratio 0.5L 12/10/17 07:15: Arterial Blood pH 7.473H, Arterial Blood Partial Pressure CO2 45.9H, Arterial Blood Partial Pressure O2 141.6H, Arterial Blood HCO3 32.9H, Arterial Blood Oxygen Saturation 98.7H, Arterial Blood Base Excess 8.3, Doroteo Test Positive Height (Feet): 5 Height (Inches): 8.00 Weight (Pounds): 450 Kleynberg,Jem L. MD December 10, 2017 11:53
--- NOTE | 2017-12-10 12:27 | General Progress Note ---
Assessment/Plan Problem List: (1) Acute toxic metabolic encephalopathy (2) Acute respiratory failure with hypoxia and hypercapnia ICD Codes: J96.01 - Acute respiratory failure with hypoxia; J96.02 - Acute respiratory failure with hypercapnia SNOMED: 36529527, 99579650, 728956548 (3) Likely obesity hypoventilation syndrome (4) Severe sepsis ICD Codes: A41.9 - Sepsis, unspecified organism; R65.20 - Severe sepsis without septic shock SNOMED: 12337115 (5) KASHIF (acute kidney injury) ICD Codes: N17.9 - Acute kidney failure, unspecified SNOMED: 20548129 (6) ATN (acute tubular necrosis) ICD Codes: N17.0 - Acute kidney failure with tubular necrosis SNOMED: 84126466 (7) Elevated liver enzymes ICD Codes: R74.8 - Abnormal levels of other serum enzymes SNOMED: 103457246 (8) Aspiration pnemonia vs HCAP (9) UTI (urinary tract infection) ICD Codes: N39.0 - Urinary tract infection, site not specified SNOMED: 48995545 Qualifiers: Qualified Codes: N39.0 - Urinary tract infection, site not specified (10) Morbid obesity ICD Codes: E66.01 - Morbid (severe) obesity due to excess calories SNOMED: 214279588, 98614533190267 (11) Chronic diastolic (congestive) heart failure ICD Codes: I50.32 - Chronic diastolic (congestive) heart failure SNOMED: 33170507, 087155216 (12) DM2 (diabetes mellitus, type 2) ICD Codes: E11.9 - Type 2 diabetes mellitus without complications SNOMED: 05629326 (13) Hypertension ICD Codes: I10 - Essential (primary) hypertension SNOMED: 78222576 (14) Fatty liver ICD Codes: K76.0 - Fatty (change of) liver, not elsewhere classified SNOMED: 751127445 (15) GERD (gastroesophageal reflux disease) ICD Codes: K21.9 - Gastro-esophageal reflux disease without esophagitis SNOMED: 951924502 (16) Asthma ICD Codes: J45.909 - Unspecified asthma, uncomplicated SNOMED: 737845178 (17) H/O supraventricular tachycardia ICD Codes: Z86.79 - Personal history of other diseases of the circulatory system SNOMED: 007091617388036 Status: stable Assessment/Plan Cont ICU care Pulm/critical care consulted Cont on vent and wean as tolerated Daily SBTs, sedation holidays This is pt's 3rd intubation in less than 6 months. D/w pulm re likely plan for tracheostomy. D/w pt and son. Surgery consulted. Pt agreed to tracheostomy. Plan for tracheostomy tomorrow. Hold tube feedings at CT Currently not requiring pressors. Goal MAP 65 and above Cardiolgoy consulted given bradycardia. Likely 2/2 midodrine Hold midodrine Taper off steroids ID consulted Empiric linezolid, cefepime and flagyl per ID; zosyn d/c'd given KASHIF; vanco d/c' d given KASHIF F/u cultures Nephrology consulted given KASHIF HD line placed and started on HD on 12/07/17. Repeat HD today Strict I/O's Trend CBC, CMP Cont tube feeds Pain control, bowel regimen Supportive care PPI DVT Prophylaxis: SCD, HSQ Code Status: Full Hospital Classification Declaration: Based on this initial evaluation, and depending on the patient's clinical course, I anticipate that this patient will require hospitalization for 3-4 days for acute respiratory failure, sepsis and close respiratory/hemodynamic monitoring. Disposition: Once the patient is stable to leave the hospital, I anticipate the patient will likely be discharged to the following environment: back to SNF vs LTACH At the time of my involvement, the patient's condition was critical with high potential for and/or physiologic deterioration secondary to acute respiratory failure, severe sepsis as delineated in the note above. On the above date of service, I spent a total of 38 minutes in the ICU evaluating, managing, and providing critical care services to this patient, including time spent documenting these activities, counseling patient/family, and coordinating care. Critical care services performed include: Telemetry Review Hemodynamic measurement interpretation Laboratory data review and interpretation Ventilator setting review, management, and adjustment Discussion of care plans with patient, family, and/or surrogate decision makers Discussion of patient's care with primary medical team, surgical team, and/or consulting service Decision to obtain further radiologic evaluation, after consideration of risk/ benefit ratio Decision to perform invasive procedure, after consideration of risk/benefit ratio Review of most recent microbiology results with assessment and modification of antimicrobial coverage Discussion of patient's code status and further advancement towards the ultimate goals of care Plan outlined above discussed with patient/family, pulm/critical care, ID regarding mgmt and dispo. D/w pulm re plan for trach. D/w ID re broad-spectrum abx. D/w renal re rising SCr, plan for HD. D/w surgery re plan for tracheostomy tomorrow Time of note may not reflect time of encounter. Subjective Date patient seen: December 09, 2017 Time patient seen: 16:00 ROS Limited/Unobtainable: No Constitutional: Reports: no symptoms HEENT: Reports: no symptoms Cardiovascular: Reports: no symptoms Respiratory: Reports: no symptoms Gastrointestinal/Abdominal: Reports: no symptoms Genitourinary: Reports: no symptoms Neurologic/Psychiatric: Reports: no symptoms Endocrine: Reports: no symptoms Hematologic/Lymphatic: Reports: no symptoms Allergies: Coded Allergies: ASPARTAME (Verified Allergy, Unknown, 11/30/17) Headache Subjective No acute o/n events Getting 2nd HD today Bradycardia to 30-40s today. Was started on midodrine yesterday, now held Pt intubated, sedated, arousable to voice. Communicating by writing. Pt agreeable to trach tomorrow Objective Last 24 Hour Vital Signs Date Time Temp Pulse Resp B/P (MAP) Pulse Ox O2 Delivery O2 Flow Rate FiO2 12/10/17 12:00 50 12/10/17 12:00 46 14 161/88 97 12/10/17 11:54 49 15 159/57 97 Mechanical Ventilator 12/10/17 11:49 136/72 12/10/17 11:37 70 21 156/60 92 Mechanical Ventilator 12/10/17 11:30 52 14 164/53 97 Mechanical Ventilator 12/10/17 11:18 98.1 50 12 139/46 96 Mechanical Ventilator 98.1 12/10/17 11:18 207.7 64 16 98 12/10/17 11:15 58 16 40 12/10/17 09:13 49 17 40 12/10/17 09:00 46 16 131/49 98 Mechanical Ventilator 40 12/10/17 08:00 40 12/10/17 08:00 98.5 49 16 117/42 99 Mechanical Ventilator 40 98.5 12/10/17 08:00 52 12/10/17 07:15 59 20 40 12/10/17 07:00 42 16 124/44 98 Mechanical Ventilator 40 12/10/17 06:00 129/44 12/10/17 06:00 45 16 129/44 96 Mechanical Ventilator 40 12/10/17 05:15 40 18 40 12/10/17 05:00 40 16 121/42 96 Mechanical Ventilator 40 12/10/17 04:01 42 12/10/17 04:00 98.2 40 16 125/44 98 Mechanical Ventilator 40 98.2 12/10/17 04:00 40 12/10/17 03:00 42 16 123/45 99 Mechanical Ventilator 40 12/10/17 02:56 40 17 40 12/10/17 02:00 68 20 127/48 95 Mechanical Ventilator 40 12/10/17 01:11 48 18 40 12/10/17 01:00 47 17 120/49 99 Mechanical Ventilator 40 12/10/17 00:00 98.3 45 16 128/61 99 Mechanical Ventilator 40 98.3 12/10/17 00:00 40 12/10/17 00:00 128/61 12/09/17 23:57 45 12/09/17 23:00 45 16 130/49 100 Mechanical Ventilator 40 12/09/17 22:49 42 17 40 12/09/17 22:00 47 16 116/46 99 Mechanical Ventilator 40 12/09/17 21:00 41 16 133/49 92 Mechanical Ventilator 40 12/09/17 20:36 50 18 40 12/09/17 20:04 37 12/09/17 20:00 98.6 42 16 134/52 92 Mechanical Ventilator 40 98.6 12/09/17 20:00 40 12/09/17 19:09 48 20 40 12/09/17 18:54 Mechanical Ventilator 40 12/09/17 18:48 97.8 46 20 145/50 Mechanical Ventilator 40 97.8 12/09/17 18:31 153/63 18 18:00 37 16 153/63 92 Mechanical Ventilator 30 12/09/17 17:00 40 16 158/63 95 Mechanical Ventilator 30 12/09/17 16:54 38 18 40 12/09/17 16:13 98.1 12/09/17 16:00 35 12/09/17 16:00 30 12/09/17 16:00 50 19 157/66 92 Mechanical Ventilator 30 12/09/17 15:19 52 20 40 12/09/17 15:14 98.1 12/09/17 15:00 Mechanical Ventilator 40 5/2/18 15:00 97.3 36 20 155/78 Mechanical Ventilator 40 97.3 12/09/17 15:00 63 20 155/78 94 Mechanical Ventilator 12/09/17 14:00 50 20 161/64 93 Mechanical Ventilator 30 12/09/17 13:00 41 25 140/51 91 Mechanical Ventilator 30 12/09/17 12:59 41 16 40 Intake and Output 12/09/17 12/10/17 19:00 07:00 Intake Total 720 ml 750 ml Output Total 4380 ml 305 ml Balance -3660 ml 445 ml IV Total 450 ml 500 ml Tube Feeding 270 ml 150 ml Other 100 ml Output Urine Total 380 ml 305 ml Hemodialysis UF 4000 ml # Bowel Movements 3 2 Laboratory Tests 12/09/17 15:30: Prothrombin Time 12.0H, Prothromb Time International Ratio 1.1, Activated Partial Thromboplast Time 30 12/10/17 03:50: White Blood Count 11.0H, Red Blood Count 3.79L, Hemoglobin 11.2L, Hematocrit 35.1L, Mean Corpuscular Volume 93, Mean Corpuscular Hemoglobin 29.5, Mean Corpuscular Hemoglobin Concent 31.9L, Red Cell Distribution Width 15.1H, Platelet Count 249, Mean Platelet Volume 7.1, Neutrophils (%) (Auto) 62.5, Lymphocytes (%) (Auto) 26.9, Monocytes (%) (Auto) 10.1H, Eosinophils (%) (Auto) 0.2, Basophils (%) (Auto) 0.4, Sodium Level 138, Potassium Level 3.6, Chloride Level 98, Carbon Dioxide Level 33H, Anion Gap 7, Blood Urea Nitrogen 37H, Creatinine 5.2H, Estimat Glomerular Filtration Rate 10.3, Glucose Level 187H, Uric Acid 5.3, Calcium Level 8.6, Phosphorus Level 2.7, Magnesium Level 1.9, Total Bilirubin 0.7, Aspartate Amino Transf (AST/SGOT) 67H, Alanine Aminotransferase (ALT/SGPT) 116H, Alkaline Phosphatase 224H, Troponin I 0.002, C -Reactive Protein, Quantitative 6.2H, Pro-B-Type Natriuretic Peptide 1734H, Total Protein 6.8, Albumin 2.3L, Globulin 4.5, Albumin/Globulin Ratio 0.5L 12/10/17 07:15: Arterial Blood pH 7.473H, Arterial Blood Partial Pressure CO2 45.9H, Arterial Blood Partial Pressure O2 141.6H, Arterial Blood HCO3 32.9H, Arterial Blood Oxygen Saturation 98.7H, Arterial Blood Base Excess 8.3, Doroteo Test Positive Height (Feet): 5 Height (Inches): 8.00 Weight (Pounds): 450 Objective General: intubated, sedated, morbidly obese Head: normocephalic, without obvious abnormality, atraumatic Eyes: conjunctivae/corneas clear. PERRL, EOM's intact Throat: lips, mucosa, and tongue normal. MMM Neck: supple, symmetrical, trachea midline, and no JVD Lungs:+rhonchi b/l Heart: regular rate and rhythm, S1, S2 normal, no murmur, click, rub or gallop Abdomen: soft, non-tender, non-distended, bowel sounds normal Extremities: extremities normal, atraumatic, no cyanosis or edema Pulses: 2+ and symmetric Skin: skin color, texture, turgor normal; no rashes or lesions Neurologic: sedated Cassie Bolivar M.D. December 10, 2017 12:27
--- NOTE | 2017-12-10 13:29 | Nephrology Progress Note ---
Assessment/Plan Problem List: (1) Acute renal failure (ARF) (2) Acute respiratory failure (3) Acute on chronic diastolic (congestive) heart failure (4) Elevated liver enzymes Assessment - Acute & chronic respiratory failure, - Bacteremia - ATN (acute tubular necrosis), ARF - Acute encephalopathy - Aspiration pnemonia vs HCAP - Likely obesity hypoventilation syndrome - Elevated liver enzymes Plan acute renal failure, dialysed 12/07 & 12/09 low BP resolved resp failure , intubated, resp management obese start Hydrocortisone Midodrine HD 12/11 Up hydralazine 25 Q6 Subjective ROS Limited/Unobtainable: Yes Objective Objective Last 24 Hour Vital Signs Date Time Temp Pulse Resp B/P (MAP) Pulse Ox O2 Delivery O2 Flow Rate FiO2 12/10/17 12:00 50 12/10/17 12:00 48 12/10/17 12:00 46 14 161/88 97 12/10/17 11:54 49 15 159/57 97 Mechanical Ventilator 12/10/17 11:49 136/72 12/10/17 11:37 70 21 156/60 92 Mechanical Ventilator 12/10/17 11:30 52 14 164/53 97 Mechanical Ventilator 12/10/17 11:18 98.1 50 12 139/46 96 Mechanical Ventilator 98.1 12/10/17 11:18 207.7 64 16 98 12/10/17 11:15 58 16 40 12/10/17 09:13 49 17 40 12/10/17 09:00 46 16 131/49 98 Mechanical Ventilator 40 12/10/17 08:00 40 12/10/17 08:00 98.5 49 16 117/42 99 Mechanical Ventilator 40 98.5 12/10/17 08:00 52 12/10/17 07:15 59 20 40 12/10/17 07:00 42 16 124/44 98 Mechanical Ventilator 40 12/10/17 06:00 129/44 12/10/17 06:00 45 16 129/44 96 Mechanical Ventilator 40 12/10/17 05:15 40 18 40 12/10/17 05:00 40 16 121/42 96 Mechanical Ventilator 40 12/10/17 04:01 42 12/10/17 04:00 98.2 40 16 125/44 98 Mechanical Ventilator 40 98.2 12/10/17 04:00 40 12/10/17 03:00 42 16 123/45 99 Mechanical Ventilator 40 12/10/17 02:56 40 17 40 12/10/17 02:00 68 20 127/48 95 Mechanical Ventilator 40 12/10/17 01:11 48 18 40 12/10/17 01:00 47 17 120/49 99 Mechanical Ventilator 40 12/10/17 00:00 98.3 45 16 128/61 99 Mechanical Ventilator 40 98.3 12/10/17 00:00 40 12/10/17 00:00 128/61 12/09/17 23:57 45 12/09/17 23:00 45 16 130/49 100 Mechanical Ventilator 40 12/09/17 22:49 42 17 40 12/09/17 22:00 47 16 116/46 99 Mechanical Ventilator 40 12/09/17 21:00 41 16 133/49 92 Mechanical Ventilator 40 12/09/17 20:36 50 18 40 12/09/17 20:04 37 12/09/17 20:00 98.6 42 16 134/52 92 Mechanical Ventilator 40 98.6 12/09/17 20:00 40 12/09/17 19:09 48 20 40 12/09/17 18:54 Mechanical Ventilator 40 12/09/17 18:48 97.8 46 20 145/50 Mechanical Ventilator 40 97.8 12/09/17 18:31 153/63 12/09/17 18:00 37 16 153/63 92 Mechanical Ventilator 30 12/09/17 17:00 40 16 158/63 95 Mechanical Ventilator 30 12/09/17 16:54 38 18 40 12/09/17 16:13 98.1 12/09/17 16:00 35 12/09/17 16:00 30 12/09/17 16:00 50 19 157/66 92 Mechanical Ventilator 30 12/09/17 15:19 52 20 40 12/09/17 15:14 98.1 12/09/17 15:00 Mechanical Ventilator 40 12/09/17 15:00 97.3 36 20 155/78 Mechanical Ventilator 40 97.3 12/09/17 15:00 63 20 155/78 94 Mechanical Ventilator 12/09/17 14:00 50 20 161/64 93 Mechanical Ventilator 30 Intake and Output 12/09/18 12/10/17 19:00 07:00 Intake Total 720 ml 750 ml Output Total 4380 ml 305 ml Balance -3660 ml 445 ml IV Total 450 ml 500 ml Tube Feeding 270 ml 150 ml Other 100 ml Output Urine Total 380 ml 305 ml Hemodialysis UF 4000 ml # Bowel Movements 3 2 Laboratory Tests 12/09/17 15:30: Prothrombin Time 12.0H, Prothromb Time International Ratio 1.1, Activated Partial Thromboplast Time 30 12/10/17 03:50: White Blood Count 11.0H, Red Blood Count 3.79L, Hemoglobin 11.2L, Hematocrit 35.1L, Mean Corpuscular Volume 93, Mean Corpuscular Hemoglobin 29.5, Mean Corpuscular Hemoglobin Concent 31.9L, Red Cell Distribution Width 15.1H, Platelet Count 249, Mean Platelet Volume 7.1, Neutrophils (%) (Auto) 62.5, Lymphocytes (%) (Auto) 26.9, Monocytes (%) (Auto) 10.1H, Eosinophils (%) (Auto) 0.2, Basophils (%) (Auto) 0.4, Sodium Level 138, Potassium Level 3.6, Chloride Level 98, Carbon Dioxide Level 33H, Anion Gap 7, Blood Urea Nitrogen 37H, Creatinine 5.2H, Estimat Glomerular Filtration Rate 10.3, Glucose Level 187H, Uric Acid 5.3, Calcium Level 8.6, Phosphorus Level 2.7, Magnesium Level 1.9, Total Bilirubin 0.7, Aspartate Amino Transf (AST/SGOT) 67H, Alanine Aminotransferase (ALT/SGPT) 116H, Alkaline Phosphatase 224H, Troponin I 0.002, C -Reactive Protein, Quantitative 6.2H, Pro-B-Type Natriuretic Peptide 1734H, Total Protein 6.8, Albumin 2.3L, Globulin 4.5, Albumin/Globulin Ratio 0.5L 12/10/17 07:15: Arterial Blood pH 7.473H, Arterial Blood Partial Pressure CO2 45.9H, Arterial Blood Partial Pressure O2 141.6H, Arterial Blood HCO3 32.9H, Arterial Blood Oxygen Saturation 98.7H, Arterial Blood Base Excess 8.3, Doroteo Test Positive Height (Feet): 5 Height (Inches): 8.00 Weight (Pounds): 450 General Appearance: no apparent distress EENT: other - trached Cardiovascular: bradycardia Respiratory/Chest: decreased breath sounds Abdomen: soft Objective no change AGUSTIN CONTRERAS December 10, 2017 13:29
[2017-12-10] MEDS: cefTRIAXone 1 GM in D5W 50 ML IVPB SCH (14:07)
--- NOTE | 2017-12-10 14:32 | Diagnostic Imaging Report ---
Indication: Dyspnea Comparison: 12/08/2017 A single view chest radiograph was obtained. Findings: There is a right jugular Dillan catheter in good position. Other tubes and lines are stable. Heart is enlarged. There is mild vascular congestion and interstitial edema. IMPRESSION: Mild CHF/interstitial edema
--- NOTE | 2017-12-10 14:59 | Pulmonolgy Critical Care Note ---
Critical Care - Asmt/Plan Problems: (1) Acute respiratory failure (2) Bacteremia (3) ATN (acute tubular necrosis) (4) Acute encephalopathy (5) Aspiration pnemonia vs HCAP (6) Likely obesity hypoventilation syndrome (7) Elevated liver enzymes Respiratory: monitor respiratory rate, adjust FIO2, CXR Cardiac: continue to monitor HR/BP Renal: F/U I&O Infectious Disease: check cultures, continue antibiotics Gastrointestinal: hold feedings, abdominal imaging Endocrine: monitor blood sugar Hematologic: monitor H/H Neurologic: PRN Ativan Affect: PRN ativan Prophylaxis: Protonix Disposition: keep in ICU Time Spent (Minutes): 40 Notes Reviewed: 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 with: nurses, consultants Critical Care - Objective Last 24 Hour Vital Signs Date Time Temp Pulse Resp B/P (MAP) Pulse Ox O2 Delivery O2 Flow Rate FiO2 12/10/17 14:00 38 16 197/63 100 Mechanical Ventilator 12/10/17 13:58 161/88 12/10/17 13:00 41 21 185/59 98 Mechanical Ventilator 12/10/17 12:59 56 16 40 12/10/17 12:00 50 12/10/17 12:00 48 12/10/17 12:00 46 14 161/88 97 12/10/17 11:54 49 15 159/57 97 Mechanical Ventilator 12/10/17 11:49 136/72 12/10/17 11:37 70 21 156/60 92 Mechanical Ventilator 12/10/17 11:30 52 14 164/53 97 Mechanical Ventilator 12/10/17 11:18 98.1 50 12 139/46 96 Mechanical Ventilator 98.1 12/10/17 11:18 207.7 64 16 98 12/10/17 11:15 58 16 40 12/10/17 09:13 49 17 40 12/10/17 09:00 46 16 131/49 98 Mechanical Ventilator 40 12/10/17 08:00 40 12/10/17 08:00 98.5 49 16 117/42 99 Mechanical Ventilator 40 98.5 12/10/17 08:00 52 12/10/17 07:15 59 20 40 12/10/17 07:00 42 16 124/44 98 Mechanical Ventilator 40 12/10/17 06:00 129/44 12/10/17 06:00 45 16 129/44 96 Mechanical Ventilator 40 12/10/17 05:15 40 18 40 5/3/18 05:00 40 16 121/42 96 Mechanical Ventilator 40 12/10/17 04:01 42 12/10/17 04:00 98.2 40 16 125/44 98 Mechanical Ventilator 40 98.2 12/10/17 04:00 40 12/10/17 03:00 42 16 123/45 99 Mechanical Ventilator 40 12/10/17 02:56 40 17 40 12/10/17 02:00 68 20 127/48 95 Mechanical Ventilator 40 12/10/17 01:11 48 18 40 12/10/17 01:00 47 17 120/49 99 Mechanical Ventilator 40 12/10/17 00:00 98.3 45 16 128/61 99 Mechanical Ventilator 40 98.3 12/10/17 00:00 40 12/10/17 00:00 128/61 12/09/17 23:57 45 12/09/17 23:00 45 16 130/49 100 Mechanical Ventilator 40 12/09/17 22:49 42 17 40 12/09/17 22:00 47 16 116/46 99 Mechanical Ventilator 40 12/09/17 21:00 41 16 133/49 92 Mechanical Ventilator 40 12/09/17 20:36 50 18 40 12/09/17 20:04 37 12/09/17 20:00 98.6 42 16 134/52 92 Mechanical Ventilator 40 98.6 12/09/17 20:00 40 12/09/17 19:09 48 20 40 12/09/17 18:54 Mechanical Ventilator 40 12/09/17 18:48 97.8 46 20 145/50 Mechanical Ventilator 40 97.8 12/09/17 18:31 153/63 12/09/17 18:00 37 16 153/63 92 Mechanical Ventilator 30 12/09/17 17:00 40 16 158/63 95 Mechanical Ventilator 30 12/09/17 16:54 38 18 40 12/09/17 16:13 98.1 12/09/17 16:00 35 12/09/17 16:00 30 12/09/17 16:00 50 19 157/66 92 Mechanical Ventilator 30 12/09/17 15:19 52 20 40 12/09/17 15:14 98.1 12/09/17 15:00 Mechanical Ventilator 40 12/09/17 15:00 97.3 36 20 155/78 Mechanical Ventilator 40 97.3 12/09/17 15:00 63 20 155/78 94 Mechanical Ventilator Status: awake Condition: critical HEENT: atraumatic Neck: full ROM Lungs: clear Heart: HR/BP stable Abdomen: soft, non-tender Extremities: no C/C/E Decubiti: location, stage Micro: Microbiology Date/Time Source Procedure Growth Status 12/08/17 13:10 Blood Blood Culture - Preliminary NO GROWTH AFTER 24 HOURS Resulted 12/08/17 13:10 Blood Blood Culture - Preliminary NO GROWTH AFTER 24 HOURS Resulted Accucheck: 189 Critical Care - Subjective ROS Limited/Unobtainable: No ICU Day: 6 Condition: critical EKG Rhythm: Sinus Rhythm FI02: 40 Vent Support Breath Rate: 14 Vent Support Mode: AC Vent Tidal Volume: 600 Sputum Amount: Small PEEP: 5.0 PIP: 38 Tube Feeding Amount: 0 I&O: Intake and Output 12/09/17 12/10/17 19:00 07:00 Intake Total 720 ml 750 ml Output Total 4380 ml 305 ml Balance -3660 ml 445 ml IV Total 450 ml 500 ml Tube Feeding 270 ml 150 ml Other 100 ml Output Urine Total 380 ml 305 ml Hemodialysis UF 4000 ml # Bowel Movements 3 2 CXR: no change ET-Tube: 7.5 ET Position: 25 Labs: Laboratory Tests Test 12/09/17 15:30 12/10/17 03:50 12/10/17 07:15 Prothrombin Time 12.0 SEC (9.30-11.50) H Prothromb Time International Ratio 1.1 (0.9-1.1) Activated Partial Thromboplast Time 30 SEC (23-33) White Blood Count 11.0 K/UL (4.8-10.8) H Red Blood Count 3.79 M/UL (4.20-5.40) L Hemoglobin 11.2 G/DL (12.0-16.0) L Hematocrit 35.1 % (37.0-47.0) L Mean Corpuscular Volume 93 FL (80-99) Mean Corpuscular Hemoglobin 29.5 PG (27.0-31.0) Mean Corpuscular Hemoglobin Concent 31.9 G/DL (32.0-36.0) L Red Cell Distribution Width 15.1 % (11.6-14.8) H Platelet Count 249 K/UL (150-450) Mean Platelet Volume 7.1 FL (6.5-10.1) Neutrophils (%) (Auto) 62.5 % (45.0-75.0) Lymphocytes (%) (Auto) 26.9 % (20.0-45.0) Monocytes (%) (Auto) 10.1 % (1.0-10.0) H Eosinophils (%) (Auto) 0.2 % (0.0-3.0) Basophils (%) (Auto) 0.4 % (0.0-2.0) Sodium Level 138 MMOL/L (136-145) Potassium Level 3.6 MMOL/L (3.5-5.1) Chloride Level 98 MMOL/L (98-107) Carbon Dioxide Level 33 MMOL/L (21-32) H Anion Gap 7 mmol/L (5-15) Blood Urea Nitrogen 37 mg/dL (7-18) H Creatinine 5.2 MG/DL (0.55-1.30) H Estimat Glomerular Filtration Rate 10.3 mL/min (>60) Glucose Level 187 MG/DL (74-106) H Uric Acid 5.3 MG/DL (2.6-7.2) Calcium Level 8.6 MG/DL (8.5-10.1) Phosphorus Level 2.7 MG/DL (2.5-4.9) Magnesium Level 1.9 MG/DL (1.8-2.4) Total Bilirubin 0.7 MG/DL (0.2-1.0) Aspartate Amino Transf (AST/SGOT) 67 U/L (15-37) H Alanine Aminotransferase (ALT/SGPT) 116 U/L (12-78) H Alkaline Phosphatase 224 U/L (46-116) H Troponin I 0.002 ng/mL (0.000-0.056) C-Reactive Protein, Quantitative 6.2 mg/dL (0.00-0.90) H Pro-B-Type Natriuretic Peptide 1734 pg/mL (0-125) H Total Protein 6.8 G/DL (6.4-8.2) Albumin 2.3 G/DL (3.4-5.0) L Globulin 4.5 g/dL Albumin/Globulin Ratio 0.5 (1.0-2.7) L Arterial Blood pH 7.473 (7.350-7.450) Arterial Blood Partial Pressure CO2 45.9 mmHg (35.0-45.0) H Arterial Blood Partial Pressure O2 141.6 mmHg (75.0-100.0) H Arterial Blood HCO3 32.9 mmol/L (22.0-26.0) H Arterial Blood Oxygen Saturation 98.7 % (92.0-98.0) H Arterial Blood Base Excess 8.3 Doroteo Test Positive Yariel Malone MD December 10, 2017 14:59
--- NOTE | 2017-12-10 17:01 | Cardiac Electrophysiology PN ---
Assessment/Plan Assessment/Plan 1. Sinus bradycardia with no evidence of heart block. HR better off midodrine. Watch the patient on telemetry. If the patient continues to be bradycardic despite being off of midodrine, may need a dobutamine drip. 2. Respiratory failure with hypoxemia and hypercapnia. S/P tracheostomy today 3. Hypertension, on hydralazine. 4. Morbid obesity. 5. History of supraventricular tachycardia. 6. Elevated liver enzymes. 7. Renal failure. DW RN Subjective Subjective Had tracheostomy today. Alert in NAD.At times savannah Objective Last 24 Hour Vital Signs Date Time Temp Pulse Resp B/P (MAP) Pulse Ox O2 Delivery O2 Flow Rate FiO2 12/10/17 16:45 57 20 40 12/10/17 14:00 38 16 197/63 100 Mechanical Ventilator 12/10/17 13:58 161/88 12/10/17 13:00 41 21 185/59 98 Mechanical Ventilator 12/10/17 12:59 56 16 40 12/10/17 12:00 50 12/10/17 12:00 48 12/10/17 12:00 46 14 161/88 97 12/10/17 11:54 49 15 159/57 97 Mechanical Ventilator 12/10/17 11:49 136/72 12/10/17 11:37 70 21 156/60 92 Mechanical Ventilator 12/10/17 11:30 52 14 164/53 97 Mechanical Ventilator 12/10/17 11:18 98.1 50 12 139/46 96 Mechanical Ventilator 98.1 12/10/17 11:18 207.7 64 16 98 12/10/17 11:15 58 16 40 12/10/17 09:13 49 17 40 12/10/17 09:00 46 16 131/49 98 Mechanical Ventilator 40 12/10/17 08:00 40 12/10/17 08:00 98.5 49 16 117/42 99 Mechanical Ventilator 40 98.5 12/10/17 08:00 52 12/10/17 07:15 59 20 40 12/10/17 07:00 42 16 124/44 98 Mechanical Ventilator 40 12/10/17 06:00 129/44 12/10/17 06:00 45 16 129/44 96 Mechanical Ventilator 40 12/10/17 05:15 40 18 40 12/10/17 05:00 40 16 121/42 96 Mechanical Ventilator 40 12/10/17 04:01 42 12/10/17 04:00 98.2 40 16 125/44 98 Mechanical Ventilator 40 98.2 12/10/17 04:00 40 12/10/17 03:00 42 16 123/45 99 Mechanical Ventilator 40 12/10/17 02:56 40 17 40 12/10/17 02:00 68 20 127/48 95 Mechanical Ventilator 40 12/10/17 01:11 48 18 40 12/10/17 01:00 47 17 120/49 99 Mechanical Ventilator 40 12/10/17 00:00 98.3 45 16 128/61 99 Mechanical Ventilator 40 98.3 12/10/17 00:00 40 12/10/17 00:00 128/61 12/09/17 23:57 45 12/09/17 23:00 45 16 130/49 100 Mechanical Ventilator 40 12/09/17 22:49 42 17 40 12/09/17 22:00 47 16 116/46 99 Mechanical Ventilator 40 12/09/17 21:00 41 16 133/49 92 Mechanical Ventilator 40 12/09/17 20:36 50 18 40 12/09/17 20:04 37 12/09/17 20:00 98.6 42 16 134/52 92 Mechanical Ventilator 40 98.6 12/09/17 20:00 40 12/09/17 19:09 48 20 40 12/09/17 18:54 Mechanical Ventilator 40 12/09/17 18:48 97.8 46 20 145/50 Mechanical Ventilator 40 97.8 12/09/17 18:31 153/63 12/09/17 18:00 37 16 153/63 92 Mechanical Ventilator 30 12/09/17 17:00 40 16 158/63 95 Mechanical Ventilator 30 12/09/17 16:54 38 18 40 Intake and Output 12/09/17 12/10/17 19:00 07:00 Intake Total 720 ml 750 ml Output Total 4380 ml 305 ml Balance -3660 ml 445 ml IV Total 450 ml 500 ml Tube Feeding 270 ml 150 ml Other 100 ml Output Urine Total 380 ml 305 ml Hemodialysis UF 4000 ml # Bowel Movements 3 2 Laboratory Tests Test 12/10/17 03:50 12/10/17 07:15 White Blood Count 11.0 K/UL (4.8-10.8) H Red Blood Count 3.79 M/UL (4.20-5.40) L Hemoglobin 11.2 G/DL (12.0-16.0) L Hematocrit 35.1 % (37.0-47.0) L Mean Corpuscular Volume 93 FL (80-99) Mean Corpuscular Hemoglobin 29.5 PG (27.0-31.0) Mean Corpuscular Hemoglobin Concent 31.9 G/DL (32.0-36.0) L Red Cell Distribution Width 15.1 % (11.6-14.8) H Platelet Count 249 K/UL (150-450) Mean Platelet Volume 7.1 FL (6.5-10.1) Neutrophils (%) (Auto) 62.5 % (45.0-75.0) Lymphocytes (%) (Auto) 26.9 % (20.0-45.0) Monocytes (%) (Auto) 10.1 % (1.0-10.0) H Eosinophils (%) (Auto) 0.2 % (0.0-3.0) Basophils (%) (Auto) 0.4 % (0.0-2.0) Sodium Level 138 MMOL/L (136-145) Potassium Level 3.6 MMOL/L (3.5-5.1) Chloride Level 98 MMOL/L (98-107) Carbon Dioxide Level 33 MMOL/L (21-32) H Anion Gap 7 mmol/L (5-15) Blood Urea Nitrogen 37 mg/dL (7-18) H Creatinine 5.2 MG/DL (0.55-1.30) H Estimat Glomerular Filtration Rate 10.3 mL/min (>60) Glucose Level 187 MG/DL (74-106) H Uric Acid 5.3 MG/DL (2.6-7.2) Calcium Level 8.6 MG/DL (8.5-10.1) Phosphorus Level 2.7 MG/DL (2.5-4.9) Magnesium Level 1.9 MG/DL (1.8-2.4) Total Bilirubin 0.7 MG/DL (0.2-1.0) Aspartate Amino Transf (AST/SGOT) 67 U/L (15-37) H Alanine Aminotransferase (ALT/SGPT) 116 U/L (12-78) H Alkaline Phosphatase 224 U/L (46-116) H Troponin I 0.002 ng/mL (0.000-0.056) C-Reactive Protein, Quantitative 6.2 mg/dL (0.00-0.90) H Pro-B-Type Natriuretic Peptide 1734 pg/mL (0-125) H Total Protein 6.8 G/DL (6.4-8.2) Albumin 2.3 G/DL (3.4-5.0) L Globulin 4.5 g/dL Albumin/Globulin Ratio 0.5 (1.0-2.7) L Arterial Blood pH 7.473 (7.350-7.450) Arterial Blood Partial Pressure CO2 45.9 mmHg (35.0-45.0) H Arterial Blood Partial Pressure O2 141.6 mmHg (75.0-100.0) H Arterial Blood HCO3 32.9 mmol/L (22.0-26.0) H Arterial Blood Oxygen Saturation 98.7 % (92.0-98.0) H Arterial Blood Base Excess 8.3 Doroteo Test Positive Microbiology Date/Time Source Procedure Growth Status 12/08/17 13:10 Blood Blood Culture - Preliminary NO GROWTH AFTER 24 HOURS Resulted 12/08/17 13:10 Blood Blood Culture - Preliminary NO GROWTH AFTER 24 HOURS Resulted Objective HEAD AND NECK: No JVD. S/P Tracheostomy LUNGS: Coarse rhonchi. CARDIOVASCULAR: Bradycardic. S1 and S2 with no gallop. ABDOMEN: Morbidly obese. EXTREMITIES: There is 1+ pitting edema. Melvin Bejarano MD December 10, 2017 17:01
[2017-12-10] MEDS: HydrALAZINE 25mg tab NG SCH ×2 (18:00→23:48)
--- NOTE | 2017-12-10 18:47 | Infectious Diseases Prog Note ---
Assessment/Plan Assessment/Plan ASSESSMENT AND PLAN: 1. sepsis, leukocytosis, fevers, ? mrsa pna/uri, ? aspiration pna, possible diphtheroids bacteremia, vent, elevated co2, ams, arf, respiratory failure, edema, ? fungal uti, sig + ua - zyvox, ceftriaxone and flagyl x 3 days for 10 treatment course - diflucan x 3 days - f/u labs and chest x-ray - surveillance cultures negative - continue vent support, icu care - s/p tracheostomy - leukocytosis and fevers better overall - echo - no vegetations mentioned - on steroids - getting hemodialysis 2. Respiratory failure, on vent, no pressors - treatment per primary and pulmonary 3. Vargas. 4. The patient has history of hypertension. 5. Diabetes. 6. Hyperlipidemia. 7. Blood sugar and blood pressure treatment per primary. 8. History of asthma. 9. History of myocardial infarction and coronary artery disease. 10. History of heart failure/congestive heart failure. 11. History of gout. 12. History of sepsis and pneumonia. 13. History of muscle weakness. 14. Gastroesophageal reflux disease. 15. Past orders were noted. 16. Allergies are negative. 17. Family History is noncontributory. 18. Social history is negative. 19. MAR was noted. 20. Case discussed with RN. 21. Continue treatment per primary and consultants. 22. Case discussed with Dr. Matthews. 23. Case discussed with RN in the ICU. 24. Orders were noted and entered. 25. Notes and records were noted. 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 Subjective Constitutional: Reports: other - s/p trach, on vent ; Denies: fever HEENT: Reports: congestion Respiratory: Reports: shortness of breath Cardiovascular: Denies: chest pain Gastrointestinal/Abdominal: Denies: nausea, vomiting, diarrhea Genitourinary: Reports: other - + vargas Neurologic: Denies: headache Psychiatric: Denies: depression Skin: Denies: rash Hematologic: Denies: bleeding Musculoskeletal: Denies: pain Allergies: Coded Allergies: ASPARTAME (Verified Allergy, Unknown, 11/30/17) Headache Objective Vital Signs Last 24 Hour Vital Signs Date Time Temp Pulse Resp B/P (MAP) Pulse Ox O2 Delivery O2 Flow Rate FiO2 12/10/17 17:00 98.4 44 15 163/55 100 Mechanical Ventilator 98.4 12/10/17 16:45 57 20 40 5/3/18 16:00 50 12/10/17 16:00 48 12/10/17 16:00 61 17 153/54 92 Mechanical Ventilator 12/10/17 15:00 49 15 155/56 100 Mechanical Ventilator 12/10/17 14:00 38 16 197/63 100 Mechanical Ventilator 12/10/17 13:58 161/88 12/10/17 13:00 41 21 185/59 98 Mechanical Ventilator 12/10/17 12:59 56 16 40 12/10/17 12:00 50 12/10/17 12:00 48 12/10/17 12:00 46 14 161/88 97 12/10/17 11:54 49 15 159/57 97 Mechanical Ventilator 12/10/17 11:49 136/72 12/10/17 11:37 70 21 156/60 92 Mechanical Ventilator 12/10/17 11:30 52 14 164/53 97 Mechanical Ventilator 12/10/17 11:18 98.1 50 12 139/46 96 Mechanical Ventilator 98.1 12/10/17 11:18 207.7 64 16 98 12/10/17 11:15 58 16 40 12/10/17 09:13 49 17 40 12/10/17 09:00 46 16 131/49 98 Mechanical Ventilator 40 12/10/17 08:00 40 12/10/17 08:00 98.5 49 16 117/42 99 Mechanical Ventilator 40 98.5 12/10/17 08:00 52 12/10/17 07:15 59 20 40 12/10/17 07:00 42 16 124/44 98 Mechanical Ventilator 40 12/10/17 06:00 129/44 12/10/17 06:00 45 16 129/44 96 Mechanical Ventilator 40 12/10/17 05:15 40 18 40 12/10/17 05:00 40 16 121/42 96 Mechanical Ventilator 40 12/10/17 04:01 42 12/10/17 04:00 98.2 40 16 125/44 98 Mechanical Ventilator 40 98.2 12/10/17 04:00 40 12/10/17 03:00 42 16 123/45 99 Mechanical Ventilator 40 12/10/17 02:56 40 17 40 12/10/17 02:00 68 20 127/48 95 Mechanical Ventilator 40 12/10/17 01:11 48 18 40 12/10/17 01:00 47 17 120/49 99 Mechanical Ventilator 40 12/10/17 00:00 98.3 45 16 128/61 99 Mechanical Ventilator 40 98.3 12/10/17 00:00 40 12/10/17 00:00 128/61 12/09/17 23:57 45 12/09/17 23:00 45 16 130/49 100 Mechanical Ventilator 40 12/09/17 22:49 42 17 40 12/09/17 22:00 47 16 116/46 99 Mechanical Ventilator 40 12/09/17 21:00 41 16 133/49 92 Mechanical Ventilator 40 12/09/17 20:36 50 18 40 12/09/17 20:04 37 12/09/17 20:00 98.6 42 16 134/52 92 Mechanical Ventilator 40 98.6 12/09/17 20:00 40 12/09/17 19:09 48 20 40 12/09/17 18:54 Mechanical Ventilator 40 12/09/17 18:48 97.8 46 20 145/50 Mechanical Ventilator 40 97.8 Height (Feet): 5 Height (Inches): 8.00 Weight (Pounds): 450 General Appearance: no acute distress, other - on vent, s/p trach HEENT: normocephalic, atraumatic, anicteric, mucous membranes moist Respiratory/Chest: crackles/rales - minimal , rhonchi - bilaterally Cardiovascular: normal rate, regular rhythm, no gallop/murmur, no JVD Abdomen: normal bowel sounds, soft, non tender, no organomegaly Genitourinary: other - + vargas - urine slt cloudy Extremities: no cyanosis Skin: no rash Neurologic/Psychiatric: hop grower II-XII grossly normal, alert, oriented x 3, responsive Lymphatic: no neck adenopathy Musculoskeletal: no effusion Objective Chest x-ray - 12/04 - Comparison: One half hour earlier Findings: Interim endotracheal intubation, endotracheal tube in good position, tip projecting approximately 4 cm above the lucía. The heart is enlarged. Lungs and pleural spaces are clear. Impression: Satisfactory endotracheal intubation Other findings as noted Chest x-ray - 12/06 - A single view chest radiograph was obtained. Findings: Endotracheal tube and nasogastric tubes are in good position unchanged. Lung volumes remain low. Lungs are essentially clear. Heart is enlarged. Bones are unremarkable. IMPRESSION: No acute findings Chest x-ray - 12/08 - IMPRESSION: Right jugular Dillan catheter in good position. No pneumothorax. Mild interstitial edema suspected. 12/10 - chest x-ray - negative (noted) Microbiology Date/Time Source Procedure Growth Status 12/08/17 13:10 Blood Blood Culture - Preliminary NO GROWTH AFTER 24 HOURS Resulted 12/05/17 14:40 Sputum Gram Stain - Final Complete 12/05/17 14:40 Sputum Culture - Final Staphylococcus Aureus - Mrsa Usual Respiratory Cassandra Complete 12/06/17 12:40 Urine,Clean Catch Urine Culture - Final Tamia Tropicalis Tamia Albicans Complete 12/04/17 08:30 Rectum VRE Culture - Final Enterococcus Faecium - Vre Complete Microbiology Date/Time Source Procedure Growth Status 12/08/17 13:10 Blood Blood Culture - Preliminary NO GROWTH AFTER 24 HOURS Resulted 12/08/17 13:10 Blood Blood Culture - Preliminary NO GROWTH AFTER 24 HOURS Resulted Laboratory Tests Test 12/10/17 03:50 12/10/17 07:15 White Blood Count 11.0 K/UL (4.8-10.8) H Red Blood Count 3.79 M/UL (4.20-5.40) L Hemoglobin 11.2 G/DL (12.0-16.0) L Hematocrit 35.1 % (37.0-47.0) L Mean Corpuscular Volume 93 FL (80-99) Mean Corpuscular Hemoglobin 29.5 PG (27.0-31.0) Mean Corpuscular Hemoglobin Concent 31.9 G/DL (32.0-36.0) L Red Cell Distribution Width 15.1 % (11.6-14.8) H Platelet Count 249 K/UL (150-450) Mean Platelet Volume 7.1 FL (6.5-10.1) Neutrophils (%) (Auto) 62.5 % (45.0-75.0) Lymphocytes (%) (Auto) 26.9 % (20.0-45.0) Monocytes (%) (Auto) 10.1 % (1.0-10.0) H Eosinophils (%) (Auto) 0.2 % (0.0-3.0) Basophils (%) (Auto) 0.4 % (0.0-2.0) Sodium Level 138 MMOL/L (136-145) Potassium Level 3.6 MMOL/L (3.5-5.1) Chloride Level 98 MMOL/L (98-107) Carbon Dioxide Level 33 MMOL/L (21-32) H Anion Gap 7 mmol/L (5-15) Blood Urea Nitrogen 37 mg/dL (7-18) H Creatinine 5.2 MG/DL (0.55-1.30) H Estimat Glomerular Filtration Rate 10.3 mL/min (>60) Glucose Level 187 MG/DL (74-106) H Uric Acid 5.3 MG/DL (2.6-7.2) Calcium Level 8.6 MG/DL (8.5-10.1) Phosphorus Level 2.7 MG/DL (2.5-4.9) Magnesium Level 1.9 MG/DL (1.8-2.4) Total Bilirubin 0.7 MG/DL (0.2-1.0) Aspartate Amino Transf (AST/SGOT) 67 U/L (15-37) H Alanine Aminotransferase (ALT/SGPT) 116 U/L (12-78) H Alkaline Phosphatase 224 U/L (46-116) H Troponin I 0.002 ng/mL (0.000-0.056) C-Reactive Protein, Quantitative 6.2 mg/dL (0.00-0.90) H Pro-B-Type Natriuretic Peptide 1734 pg/mL (0-125) H Total Protein 6.8 G/DL (6.4-8.2) Albumin 2.3 G/DL (3.4-5.0) L Globulin 4.5 g/dL Albumin/Globulin Ratio 0.5 (1.0-2.7) L Arterial Blood pH 7.473 (7.350-7.450) Arterial Blood Partial Pressure CO2 45.9 mmHg (35.0-45.0) H Arterial Blood Partial Pressure O2 141.6 mmHg (75.0-100.0) H Arterial Blood HCO3 32.9 mmol/L (22.0-26.0) H Arterial Blood Oxygen Saturation 98.7 % (92.0-98.0) H Arterial Blood Base Excess 8.3 Doroteo Test Positive Current Medications Medications (Trade) Dose Ordered Sig/Felipe Route PRN Reason Start Time Stop Time Status Last Admin Dose Admin Acetaminophen (Tylenol) 650 mg EVERY 4 HOURS PRN NG Mild Pain/Temp > 100.5 12/09/17 21:30 01/08/18 21:29 12/09/17 22:07 Acetaminophen (Tylenol) 650 mg Q4H PRN ORAL Fever (temp>100.5F) 12/04/17 10:15 01/03/18 10:14 12/09/17 15:14 Allopurinol (Zyloprim) 100 mg DAILY ORAL 12/05/17 09:00 01/04/18 08:59 12/09/17 09:58 Ceftriaxone Sodium 1 gm/ Dextrose 50 ml @ 100 mls/hr Q24H IVPB 12/08/17 14:00 12/15/17 23:59 12/10/17 14:07 Chlorhexidine Gluconate (Vicki-Hex 2%) 1 applic DAILY@2000 TOPIC 12/09/17 20:00 01/08/18 19:59 12/09/17 19:46 Clotrimazole (Lotrimin) 1 applic THREE TIMES A DAY TOPIC 12/09/17 09:00 01/08/18 08:59 12/10/17 13:00 Dextrose (Dextrose 50%) 25 ml STAT PRN IV Hypoglycemia 12/04/17 10:15 01/03/18 10:14 Dextrose (Dextrose 50%) 50 ml STAT PRN IV Hypoglycemia 12/04/17 10:15 01/03/18 10:14 Diphenhydramine HCl (Benadryl) 12.5 mg Q6H PRN IVP Itching 12/08/17 18:30 01/07/18 18:29 Fluconazole (Diflucan) 100 mg DAILY ORAL 12/08/17 12:34 12/15/17 23:59 12/09/17 09:58 Heparin Sodium (Porcine) (Heparin 5000 units/ml) 5,000 units EVERY 12 HOURS SUBQ 12/04/17 21:00 01/03/18 20:59 12/09/17 10:02 Hydralazine HCl (Apresoline) 10 mg Q4H PRN IV sbp> 160 mmHg 12/09/17 11:30 01/08/18 11:29 12/10/17 13:58 Hydralazine HCl (Apresoline) 25 mg Q6HR NG 12/10/17 18:00 01/08/18 15:44 Hydrocortisone (Solu-CORTEF) 100 mg DAILY IV 12/10/17 09:00 01/07/18 21:59 12/10/17 08:09 Insulin Aspart (NovoLOG) EVERY 6 HOURS SUBQ 12/06/17 12:00 01/04/18 11:29 12/10/17 11:50 Linezolid 300 ml @ 300 mls/hr Q12HR IVPB 12/06/17 18:00 12/13/17 17:59 12/10/17 08:08 Lorazepam (Ativan 2mg/ml 1ml) 2 mg Q2H PRN IV agitation 12/04/17 10:15 12/11/17 10:14 12/07/17 19:32 Metronidazole 100 ml @ 100 mls/hr Q8HR IVPB 12/04/17 22:00 12/11/17 21:59 12/10/17 14:07 Morphine Sulfate (Morphine Sulfate) 4 mg Q4H PRN IVP Severe Pain (Pain Scale 7-10) 12/04/17 10:15 12/11/17 10:14 12/08/17 04:50 Nitroglycerin (Ntg) 0.4 mg Q5M PRN SL Prn Chest Pain 12/04/17 10:15 01/03/18 10:14 Ondansetron HCl (Zofran) 4 mg Q6H PRN IVP Nausea & Vomiting 12/04/17 10:15 01/03/18 10:14 12/06/17 06:03 Pantoprazole (Protonix) 40 mg EVERY 12 HOURS IVP 12/09/17 21:00 01/08/18 20:59 12/10/17 08:08 JUNI ABDUL December 10, 2017 18:47
[2017-12-10] MEDS: Acetaminophen 650mg/20.3ml NG PRN (21:51)
--- NOTE | 2017-12-10 23:36 | General Progress Note ---
Assessment/Plan Assessment/Plan 1. Coagulopathy, potentially secondary to liver problem, liver disease. --> On anticoag 2. The patient has transaminitis as well as elevated --> Continue to closely monitor for improvement. Albumin of 2.1 as well. 3. Anemia due to underlying chronic disease. --> Continue to closely monitor. Anemia workup has been reviewed. --> Blood transfusion not required unless symptomatic or hgb <7 --> Hgb has been stable. 4. Transaminitis, potentially secondary to shock liver versus other cause. 5. Acute tubular necrosis with elevated creatinine. Continue to closely monitor. 6. Likely obesity hypoventilation syndrome. 7. Respiratory failure, status post intubation. 8. Leukocytosis, potentially secondary to infection. --> Worsened again. Monitor for improvement. 9. Acute kidney injury. The patient's creatinine within normal limits on admission, potentially secondary to shock. 10. Elevated liver enzymes. 11. Bradycardia. Subjective Date patient seen: December 09, 2017 Constitutional: Denies: no symptoms, chills, diaphoresis, fever, malaise, weakness, other HEENT: Denies: no symptoms, eye pain, blurred vision, tearing, double vision, ear pain, ear discharge, nose pain, nose congestion, throat pain, throat swelling, mouth pain, mouth swelling, other Cardiovascular: Denies: no symptoms, chest pain, edema, irregular heart rate, lightheadedness, palpitations, syncope, other Respiratory: Denies: no symptoms, cough, orthopnea, shortness of breath, SOB with excertion, SOB at rest, sputum, stridor, wheezing, other Gastrointestinal/Abdominal: Denies: no symptoms, abdomen distended, abdominal pain, black stools, tarry stools, blood in stool, constipated, diarrhea, difficulty swallowing, nausea, poor appetite, poor fluid intake, rectal bleeding , vomiting, other Genitourinary: Denies: no symptoms, burning, discharge, frequency, flank pain, hematuria, incontinence, pain, urgency, other Neurologic/Psychiatric: Denies: no symptoms, anxiety, depressed, emotional problems, headache, numbness, paresthesia, pre-existing deficit, seizure, tingling, tremors, weakness, other Allergies: Coded Allergies: ASPARTAME (Verified Allergy, Unknown, 11/30/17) Headache Subjective Remains in ICU. Wbc elevated. Currently bradycardic. On vent. Objective Last 24 Hour Vital Signs Date Time Temp Pulse Resp B/P (MAP) Pulse Ox O2 Delivery O2 Flow Rate FiO2 12/10/17 23:00 45 15 140/43 99 Mechanical Ventilator 40 12/10/17 22:42 49 15 40 12/10/17 22:00 46 14 136/42 99 Mechanical Ventilator 40 12/10/17 21:13 48 15 40 12/10/17 21:00 49 16 130/57 92 Mechanical Ventilator 40 12/10/17 20:00 40 12/10/17 20:00 98.2 49 14 142/36 91 Mechanical Ventilator 40 98.2 12/10/17 19:58 48 12/10/17 19:00 52 16 156/43 90 Mechanical Ventilator 40 12/10/17 18:58 163/55 12/10/17 18:54 50 20 40 12/10/17 18:00 163/55 12/10/17 18:00 40 14 168/55 100 Mechanical Ventilator 40 12/10/17 17:00 44 15 163/55 100 Mechanical Ventilator 40 12/10/17 17:00 98.4 44 15 163/55 100 Mechanical Ventilator 98.4 12/10/17 16:45 57 20 40 12/10/17 16:00 50 12/10/17 16:00 50 12/10/17 16:00 43 12/10/17 16:00 61 17 153/54 92 Mechanical Ventilator 12/10/17 15:00 49 15 155/56 100 Mechanical Ventilator 12/10/17 14:00 38 16 197/63 100 Mechanical Ventilator 12/10/17 13:58 161/88 12/10/17 13:00 41 21 185/59 98 Mechanical Ventilator 12/10/17 12:59 56 16 40 12/10/17 12:00 50 12/10/17 12:00 48 12/10/17 12:00 46 14 161/88 97 12/10/17 11:54 49 15 159/57 97 Mechanical Ventilator 12/10/17 11:49 136/72 12/10/17 11:37 70 21 156/60 92 Mechanical Ventilator 12/10/17 11:30 52 14 164/53 97 Mechanical Ventilator 12/10/17 11:18 98.1 50 12 139/46 96 Mechanical Ventilator 98.1 12/10/17 11:18 207.7 64 16 98 12/10/17 11:15 58 16 40 12/10/17 09:13 49 17 40 12/10/17 09:00 46 16 131/49 98 Mechanical Ventilator 40 12/10/17 08:00 40 12/10/17 08:00 98.5 49 16 117/42 99 Mechanical Ventilator 40 98.5 12/10/17 08:00 52 12/10/17 07:15 59 20 40 12/10/17 07:00 42 16 124/44 98 Mechanical Ventilator 40 12/10/17 06:00 129/44 12/10/17 06:00 45 16 129/44 96 Mechanical Ventilator 40 12/10/17 05:15 40 18 40 12/10/17 05:00 40 16 121/42 96 Mechanical Ventilator 40 12/10/17 04:01 42 12/10/17 04:00 98.2 40 16 125/44 98 Mechanical Ventilator 40 98.2 12/10/17 04:00 40 12/10/17 03:00 42 16 123/45 99 Mechanical Ventilator 40 12/10/17 02:56 40 17 40 12/10/17 02:00 68 20 127/48 95 Mechanical Ventilator 40 12/10/17 01:11 48 18 40 12/10/17 01:00 47 17 120/49 99 Mechanical Ventilator 40 12/10/17 00:00 98.3 45 16 128/61 99 Mechanical Ventilator 40 98.3 12/10/17 00:00 40 12/10/17 00:00 128/61 12/09/17 23:57 45 Intake and Output 12/09/17 12/10/17 19:00 07:00 Intake Total 720 ml 750 ml Output Total 4380 ml 305 ml Balance -3660 ml 445 ml IV Total 450 ml 500 ml Tube Feeding 270 ml 150 ml Other 100 ml Output Urine Total 380 ml 305 ml Hemodialysis UF 4000 ml # Bowel Movements 3 2 Laboratory Tests 12/10/17 03:50: White Blood Count 11.0H, Red Blood Count 3.79L, Hemoglobin 11.2L, Hematocrit 35.1L, Mean Corpuscular Volume 93, Mean Corpuscular Hemoglobin 29.5, Mean Corpuscular Hemoglobin Concent 31.9L, Red Cell Distribution Width 15.1H, Platelet Count 249, Mean Platelet Volume 7.1, Neutrophils (%) (Auto) 62.5, Lymphocytes (%) (Auto) 26.9, Monocytes (%) (Auto) 10.1H, Eosinophils (%) (Auto) 0.2, Basophils (%) (Auto) 0.4, Sodium Level 138, Potassium Level 3.6, Chloride Level 98, Carbon Dioxide Level 33H, Anion Gap 7, Blood Urea Nitrogen 37H, Creatinine 5.2H, Estimat Glomerular Filtration Rate 10.3, Glucose Level 187H, Uric Acid 5.3, Calcium Level 8.6, Phosphorus Level 2.7, Magnesium Level 1.9, Total Bilirubin 0.7, Aspartate Amino Transf (AST/SGOT) 67H, Alanine Aminotransferase (ALT/SGPT) 116H, Alkaline Phosphatase 224H, Troponin I 0.002, C -Reactive Protein, Quantitative 6.2H, Pro-B-Type Natriuretic Peptide 1734H, Total Protein 6.8, Albumin 2.3L, Globulin 4.5, Albumin/Globulin Ratio 0.5L 12/10/17 07:15: Arterial Blood pH 7.473H, Arterial Blood Partial Pressure CO2 45.9H, Arterial Blood Partial Pressure O2 141.6H, Arterial Blood HCO3 32.9H, Arterial Blood Oxygen Saturation 98.7H, Arterial Blood Base Excess 8.3, Doroteo Test Positive Height (Feet): 5 Height (Inches): 8.00 Weight (Pounds): 450 General Appearance: lethargic Cardiovascular: bradycardia Respiratory/Chest: decreased breath sounds Jem Palmer MD December 10, 2017 23:36
[2017-12-11] VITALS (20 sets, daily range): BP systolic 112–175; BP diastolic 40–83
--- NOTE | 2017-12-11 00:54 | General Progress Note ---
Assessment/Plan Problem List: (1) Acute toxic metabolic encephalopathy (2) Acute respiratory failure with hypoxia and hypercapnia ICD Codes: J96.01 - Acute respiratory failure with hypoxia; J96.02 - Acute respiratory failure with hypercapnia SNOMED: 19351679, 88459480, 687511609 (3) Likely obesity hypoventilation syndrome (4) Severe sepsis ICD Codes: A41.9 - Sepsis, unspecified organism; R65.20 - Severe sepsis without septic shock SNOMED: 98618783 (5) KASHIF (acute kidney injury) ICD Codes: N17.9 - Acute kidney failure, unspecified SNOMED: 75507202 (6) ATN (acute tubular necrosis) ICD Codes: N17.0 - Acute kidney failure with tubular necrosis SNOMED: 54854479 (7) Elevated liver enzymes ICD Codes: R74.8 - Abnormal levels of other serum enzymes SNOMED: 214607737 (8) Aspiration pnemonia vs HCAP (9) UTI (urinary tract infection) ICD Codes: N39.0 - Urinary tract infection, site not specified SNOMED: 81112263 Qualifiers: Qualified Codes: N39.0 - Urinary tract infection, site not specified (10) Morbid obesity ICD Codes: E66.01 - Morbid (severe) obesity due to excess calories SNOMED: 436444226, 00159429224696 (11) Chronic diastolic (congestive) heart failure ICD Codes: I50.32 - Chronic diastolic (congestive) heart failure SNOMED: 69956739, 375227147 (12) DM2 (diabetes mellitus, type 2) ICD Codes: E11.9 - Type 2 diabetes mellitus without complications SNOMED: 27750540 (13) Hypertension ICD Codes: I10 - Essential (primary) hypertension SNOMED: 92940855 (14) Fatty liver ICD Codes: K76.0 - Fatty (change of) liver, not elsewhere classified SNOMED: 740141884 (15) GERD (gastroesophageal reflux disease) ICD Codes: K21.9 - Gastro-esophageal reflux disease without esophagitis SNOMED: 795019151 (16) Asthma ICD Codes: J45.909 - Unspecified asthma, uncomplicated SNOMED: 581541331 (17) H/O supraventricular tachycardia ICD Codes: Z86.79 - Personal history of other diseases of the circulatory system SNOMED: 985104942718823 Status: stable Assessment/Plan Cont ICU care Pulm/critical care consulted Cont on vent and wean as tolerated Daily SBTs, sedation holidays This is pt's 3rd intubation in less than 6 months. D/w pulm re likely plan for tracheostomy. D/w pt and son. Surgery consulted s/p tracheostomy on 12/10/17 Currently not requiring pressors. Goal MAP 65 and above Cardiology consulted given bradycardia. Likely 2/2 midodrine Hold midodrine Taper off steroids ID consulted Empiric linezolid, cefepime and flagyl per ID; zosyn d/c'd given KASHIF; vanco d/c' d given KASHIF F/u cultures Nephrology consulted given KASHIF HD line placed and started on HD on 12/07/17. 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 Disposition: Once the patient is stable to leave the hospital, I anticipate the patient will likely be discharged to the following environment: subacute SNF vs LTACH At the time of my involvement, the patient's condition was critical with high potential for and/or physiologic deterioration secondary to acute respiratory failure, severe sepsis as delineated in the note above. On the above date of service, I spent a total of 39 minutes in the ICU evaluating, managing, and providing critical care services to this patient, including time spent documenting these activities, counseling patient/family, and coordinating care. Critical care services performed include: Telemetry Review Hemodynamic measurement interpretation Laboratory data review and interpretation Ventilator setting review, management, and adjustment Discussion of care plans with patient, family, and/or surrogate decision makers Discussion of patient's care with primary medical team, surgical team, and/or consulting service Decision to obtain further radiologic evaluation, after consideration of risk/ benefit ratio Decision to perform invasive procedure, after consideration of risk/benefit ratio Review of most recent microbiology results with assessment and modification of antimicrobial coverage Discussion of patient's code status and further advancement towards the ultimate goals of care Plan outlined above discussed with patient/family, pulm/critical care, ID regarding mgmt and dispo. D/w pulm re plan for trach. D/w ID re broad-spectrum abx. D/w renal re rising SCr, plan for HD. D/w surgery re tracheostomy Time of note may not reflect time of encounter. Subjective Date patient seen: December 10, 2017 Time patient seen: 13:00 ROS Limited/Unobtainable: No Constitutional: Reports: no symptoms HEENT: Reports: no symptoms Cardiovascular: Reports: no symptoms Respiratory: Reports: no symptoms Gastrointestinal/Abdominal: Reports: no symptoms Genitourinary: Reports: no symptoms Neurologic/Psychiatric: Reports: no symptoms Endocrine: Reports: no symptoms Hematologic/Lymphatic: Reports: no symptoms Allergies: Coded Allergies: ASPARTAME (Verified Allergy, Unknown, 11/30/17) Headache Subjective No acute o/n events s/p tracheostomy today Pt doing well. Awake, alert. Communicating by writing. Objective Last 24 Hour Vital Signs Date Time Temp Pulse Resp B/P (MAP) Pulse Ox O2 Delivery O2 Flow Rate FiO2 12/10/17 23:48 124/45 12/10/17 23:00 45 15 140/43 99 Mechanical Ventilator 40 12/10/17 22:42 49 15 40 12/10/17 22:00 46 14 136/42 99 Mechanical Ventilator 40 12/10/17 21:13 48 15 40 12/10/17 21:00 49 16 130/57 92 Mechanical Ventilator 40 12/10/17 20:00 40 12/10/17 20:00 98.2 49 14 142/36 91 Mechanical Ventilator 40 98.2 12/10/17 19:58 48 12/10/17 19:00 52 16 156/43 90 Mechanical Ventilator 40 12/10/17 18:58 163/55 12/10/17 18:54 50 20 40 12/10/17 18:00 163/55 12/10/17 18:00 40 14 168/55 100 Mechanical Ventilator 40 12/10/17 17:00 44 15 163/55 100 Mechanical Ventilator 40 12/10/17 17:00 98.4 44 15 163/55 100 Mechanical Ventilator 98.4 12/10/17 16:45 57 20 40 12/10/17 16:00 50 12/10/17 16:00 50 12/10/17 16:00 43 5/3/18 16:00 61 17 153/54 92 Mechanical Ventilator 12/10/17 15:00 49 15 155/56 100 Mechanical Ventilator 12/10/17 14:00 38 16 197/63 100 Mechanical Ventilator 12/10/17 13:58 161/88 12/10/17 13:00 41 21 185/59 98 Mechanical Ventilator 12/10/17 12:59 56 16 40 12/10/17 12:00 50 12/10/17 12:00 48 12/10/17 12:00 46 14 161/88 97 12/10/17 11:54 49 15 159/57 97 Mechanical Ventilator 12/10/17 11:49 136/72 12/10/17 11:37 70 21 156/60 92 Mechanical Ventilator 12/10/17 11:30 52 14 164/53 97 Mechanical Ventilator 12/10/17 11:18 98.1 50 12 139/46 96 Mechanical Ventilator 98.1 12/10/17 11:18 207.7 64 16 98 12/10/17 11:15 58 16 40 12/10/17 09:13 49 17 40 12/10/17 09:00 46 16 131/49 98 Mechanical Ventilator 40 12/10/17 08:00 40 12/10/17 08:00 98.5 49 16 117/42 99 Mechanical Ventilator 40 98.5 12/10/17 08:00 52 12/10/17 07:15 59 20 40 12/10/17 07:00 42 16 124/44 98 Mechanical Ventilator 40 12/10/17 06:00 129/44 12/10/17 06:00 45 16 129/44 96 Mechanical Ventilator 40 12/10/17 05:15 40 18 40 12/10/17 05:00 40 16 121/42 96 Mechanical Ventilator 40 12/10/17 04:01 42 12/10/17 04:00 98.2 40 16 125/44 98 Mechanical Ventilator 40 98.2 12/10/17 04:00 40 12/10/17 03:00 42 16 123/45 99 Mechanical Ventilator 40 12/10/17 02:56 40 17 40 12/10/17 02:00 68 20 127/48 95 Mechanical Ventilator 40 12/10/17 01:11 48 18 40 12/10/17 01:00 47 17 120/49 99 Mechanical Ventilator 40 Intake and Output 12/10/17 12/11/17 19:00 07:00 Intake Total 300 ml 440 ml Output Total 335 ml 180 ml Balance -35 ml 260 ml IV Total 300 ml 400 ml Tube Feeding 0 ml Other 40 ml Output Urine Total 335 ml 180 ml # Bowel Movements 4 Laboratory Tests 12/10/17 03:50: White Blood Count 11.0H, Red Blood Count 3.79L, Hemoglobin 11.2L, Hematocrit 35.1L, Mean Corpuscular Volume 93, Mean Corpuscular Hemoglobin 29.5, Mean Corpuscular Hemoglobin Concent 31.9L, Red Cell Distribution Width 15.1H, Platelet Count 249, Mean Platelet Volume 7.1, Neutrophils (%) (Auto) 62.5, Lymphocytes (%) (Auto) 26.9, Monocytes (%) (Auto) 10.1H, Eosinophils (%) (Auto) 0.2, Basophils (%) (Auto) 0.4, Sodium Level 138, Potassium Level 3.6, Chloride Level 98, Carbon Dioxide Level 33H, Anion Gap 7, Blood Urea Nitrogen 37H, Creatinine 5.2H, Estimat Glomerular Filtration Rate 10.3, Glucose Level 187H, Uric Acid 5.3, Calcium Level 8.6, Phosphorus Level 2.7, Magnesium Level 1.9, Total Bilirubin 0.7, Aspartate Amino Transf (AST/SGOT) 67H, Alanine Aminotransferase (ALT/SGPT) 116H, Alkaline Phosphatase 224H, Troponin I 0.002, C -Reactive Protein, Quantitative 6.2H, Pro-B-Type Natriuretic Peptide 1734H, Total Protein 6.8, Albumin 2.3L, Globulin 4.5, Albumin/Globulin Ratio 0.5L 12/10/17 07:15: Arterial Blood pH 7.473H, Arterial Blood Partial Pressure CO2 45.9H, Arterial Blood Partial Pressure O2 141.6H, Arterial Blood HCO3 32.9H, Arterial Blood Oxygen Saturation 98.7H, Arterial Blood Base Excess 8.3, Doroteo Test Positive Height (Feet): 5 Height (Inches): 8.00 Weight (Pounds): 450 Objective General: awake, alert, NAD, morbidly obese Head: normocephalic, without obvious abnormality, atraumatic Eyes: conjunctivae/corneas clear. PERRL, EOM's intact Throat: lips, mucosa, and tongue normal. MMM Neck: supple, symmetrical, trachea midline, +tracheostomy c/d/i Lungs:+rhonchi b/l Heart: regular rate and rhythm, S1, S2 normal, no murmur, click, rub or gallop Abdomen: soft, non-tender, non-distended, bowel sounds normal Extremities: extremities normal, atraumatic, no cyanosis or edema Pulses: 2+ and symmetric Skin: skin color, texture, turgor normal; no rashes or lesions Neurologic: sedated Cassie Bolivar M.D. December 11, 2017 00:54
[2017-12-11 03:36] LABS: EOSINOPHILS % (AUTO) 0.2 % (0.0-3.0); HEMATOCRIT 34.6 % (37.0-47.0); HEMOGLOBIN 10.7 G/DL (12.0-16.0); LYMPHOCYTES % (AUTO) 34.8 % (20.0-45.0); MEAN CORPUSCULAR VOLUME 92 FL (80-99); MONOCYTES % (AUTO) 12.9 % (1.0-10.0); NEUTROPHILS % (AUTO) 51.1 % (45.0-75.0); PLATELET COUNT 263 K/UL (150-450); RED BLOOD COUNT 3.75 M/UL (4.20-5.40); RED CELL DISTRIBUTION WIDTH 15.2 % (11.6-14.8)
[2017-12-11 04:05] LABS: ALANINE AMINOTRANSFERASE 86 U/L (12-78); ALBUMIN 2.3 G/DL (3.4-5.0); ALBUMIN/GLOBULIN RATIO 0.5 (1.0-2.7); ALKALINE PHOSPHATASE 188 U/L (46-116); ANION GAP 8 mmol/L (5-15); ASPARTATE AMINO TRANSFERASE 42 U/L (15-37); BILIRUBIN,TOTAL 0.7 MG/DL (0.2-1.0); BLOOD UREA NITROGEN 44 mg/dL (7-18); CALCIUM 8.7 MG/DL (8.5-10.1); CARBON DIOXIDE 32 MMOL/L (21-32); CHLORIDE 98 MMOL/L (98-107); CREATININE 5.4 MG/DL (0.55-1.30); GAMMA GLUTAMYL TRANSPEPTIDASE 267 U/L (5-85); PHOSPHORUS 3.8 MG/DL (2.5-4.9); POTASSIUM 3.2 MMOL/L (3.5-5.1); SODIUM 138 MMOL/L (136-145)
[2017-12-11] MEDS: NovoLOG Insulin Flexpen SUBQ SCH ×3 (06:20→18:14)
[2017-12-11] MEDS: HydrALAZINE 25mg tab NG SCH ×3 (06:36→18:11)
--- NOTE | 2017-12-11 06:39 | 48 Hour Post Anesthesia Eval ---
Post Anesthesia Evaluation Procedure: Tracheostomy Date of Evaluation: December 11, 2017 Time of Evaluation: 06:20 Blood Pressure Systolic: 121 0: 60 Pulse Rate: 41 Respiratory Rate: 14 Temperature (Fahrenheit): 98 O2 Sat by Pulse Oximetry: 99 Airway: patent Nausea: No Vomiting: No Pain Intensity: 0 Hydration Status: adequate Cardiopulmonary Status: at baseline Post-Anesthesia Complications: 0 Follow-up care needed: N/A - further care as per primary team ALLIE HATFIELD M.D. December 11, 2017 06:39
[2017-12-11] MEDS: Hydrocortisone 100mg Inj IV SCH (08:57)
[2017-12-11] MEDS: Linezolid 600mg/300mL Premix IVPB SCH (08:57)
[2017-12-11] MEDS: Pantoprazole Inj IVP SCH (08:57)
[2017-12-11] MEDS: Fluconazole 100mg tab ORAL SCH (08:57)
[2017-12-11] MEDS: Allopurinol 100mg Tab ORAL SCH (08:58)
[2017-12-11] MEDS: Heparin 5000 units/ml inj SUBQ SCH (08:59)
--- NOTE | 2017-12-11 11:39 | Pulmonolgy Critical Care Note ---
Critical Care - Asmt/Plan Problems: (1) Acute respiratory failure (2) Bacteremia (3) ATN (acute tubular necrosis) (4) Acute encephalopathy (5) Aspiration pnemonia vs HCAP (6) Likely obesity hypoventilation syndrome (7) Elevated liver enzymes Respiratory: monitor respiratory rate, adjust FIO2, CXR Cardiac: continue to monitor HR/BP Renal: F/U I&O, keep IV fluid Infectious Disease: check cultures Gastrointestinal: continue feedings/current rate Endocrine: monitor blood sugar Hematologic: monitor H/H, transfuse if hgb<8.5 Neurologic: PRN Ativan, keep patient comfortable Affect: PRN ativan Disposition: transfer to - [facility] Notes Reviewed: rounder hand, cardio Discussed with: nurses, consultants, employment case managerarchitect manager - Objective Last 24 Hour Vital Signs Date Time Temp Pulse Resp B/P (MAP) Pulse Ox O2 Delivery O2 Flow Rate FiO2 12/11/17 11:00 47 20 137/75 99 Mechanical Ventilator 40 12/11/17 10:00 45 20 129/45 99 Mechanical Ventilator 40 12/11/17 09:52 40 12/11/17 09:36 98 12/11/17 09:35 40 12/11/17 09:00 98.2 42 17 129/52 99 Mechanical Ventilator 40 98.2 12/11/17 08:55 44 16 40 12/11/17 08:00 40 12/11/17 08:00 41 17 120/43 99 Mechanical Ventilator 40 12/11/17 08:00 44 12/11/17 07:00 42 14 113/42 99 Mechanical Ventilator 40 12/11/17 06:42 50 16 40 12/11/17 06:39 208.4 41 14 99 12/11/17 06:36 121/60 12/11/17 06:00 41 14 121/60 99 Mechanical Ventilator 40 12/11/17 05:00 40 14 135/40 99 Mechanical Ventilator 40 12/11/17 04:50 41 14 40 12/11/17 04:00 40 12/11/17 04:00 41 12/11/17 04:00 98.0 41 14 138/41 99 Mechanical Ventilator 40 98.0 12/11/17 03:05 41 14 40 12/11/17 03:00 43 14 131/42 99 Mechanical Ventilator 40 12/11/17 02:00 49 17 126/53 100 Mechanical Ventilator 40 12/11/17 01:31 68 18 40 12/11/17 01:00 45 15 116/73 97 Mechanical Ventilator 40 12/11/17 00:00 98.6 45 16 135/47 100 Mechanical Ventilator 40 98.6 12/11/17 00:00 40 12/11/17 00:00 53 12/10/17 23:48 124/45 12/10/17 23:00 45 15 140/43 99 Mechanical Ventilator 40 12/10/17 22:42 49 15 40 12/10/17 22:00 46 14 136/42 99 Mechanical Ventilator 40 12/10/17 21:13 48 15 40 12/10/17 21:00 49 16 130/57 92 Mechanical Ventilator 40 12/10/17 20:00 40 12/10/17 20:00 98.2 49 14 142/36 91 Mechanical Ventilator 40 98.2 12/10/17 19:58 48 12/10/17 19:00 52 16 156/43 90 Mechanical Ventilator 40 12/10/17 18:58 163/55 12/10/17 18:54 50 20 40 12/10/17 18:00 163/55 12/10/17 18:00 40 14 168/55 100 Mechanical Ventilator 40 12/10/17 17:00 44 15 163/55 100 Mechanical Ventilator 40 12/10/17 17:00 98.4 44 15 163/55 100 Mechanical Ventilator 98.4 12/10/17 16:45 57 20 40 12/10/17 16:00 50 12/10/17 16:00 50 12/10/17 16:00 43 12/10/17 16:00 61 17 153/54 92 Mechanical Ventilator 12/10/17 15:00 49 15 155/56 100 Mechanical Ventilator 12/10/17 14:00 38 16 197/63 100 Mechanical Ventilator 12/10/17 13:58 161/88 12/10/17 13:00 41 21 185/59 98 Mechanical Ventilator 12/10/17 12:59 56 16 40 12/10/17 12:00 50 12/10/17 12:00 48 12/10/17 12:00 46 14 161/88 97 12/10/17 11:54 49 15 159/57 97 Mechanical Ventilator 12/10/17 11:49 136/72 Status: awake Condition: critical Neck: full ROM Lungs: rales, rhonchi Heart: HR/BP stable Abdomen: soft Extremities: no C/C/E, edema Decubiti: stage Micro: Microbiology Date/Time Source Procedure Growth Status 12/08/17 13:10 Blood Blood Culture - Preliminary NO GROWTH AFTER 48 HOURS Resulted 12/08/17 13:10 Blood Blood Culture - Preliminary NO GROWTH AFTER 48 HOURS Resulted 12/10/17 22:00 Sputum Gram Stain - Final Resulted 12/10/17 22:00 Sputum Sputum Culture Pending Resulted Accucheck: 132 Critical Care - Subjective ROS Limited/Unobtainable: Yes ICU Day: 7 Intubation Day: s/p trach Condition: critical EKG Rhythm: Sinus Rhythm FI02: 40 Vent Support Breath Rate: 14 Vent Support Mode: CPAP Vent Tidal Volume: 600 Sputum Amount: Small PEEP: 5.0 PIP: 35 Tube Feeding Amount: 0 I&O: Intake and Output 12/10/17 12/11/17 19:00 07:00 Intake Total 300 ml 440 ml Output Total 335 ml 470 ml Balance -35 ml -30 ml IV Total 300 ml 400 ml Tube Feeding 0 ml Other 40 ml Output Urine Total 335 ml 470 ml # Bowel Movements 4 CXR: no change ET-Tube: 7.5 ET Position: 25 Labs: Laboratory Tests Test 12/11/17 03:30 White Blood Count 10.0 K/UL (4.8-10.8) Red Blood Count 3.75 M/UL (4.20-5.40) L Hemoglobin 10.7 G/DL (12.0-16.0) L Hematocrit 34.6 % (37.0-47.0) L Mean Corpuscular Volume 92 FL (80-99) Mean Corpuscular Hemoglobin 28.7 PG (27.0-31.0) Mean Corpuscular Hemoglobin Concent 31.0 G/DL (32.0-36.0) L Red Cell Distribution Width 15.2 % (11.6-14.8) H Platelet Count 263 K/UL (150-450) Mean Platelet Volume 6.8 FL (6.5-10.1) Neutrophils (%) (Auto) 51.1 % (45.0-75.0) Lymphocytes (%) (Auto) 34.8 % (20.0-45.0) Monocytes (%) (Auto) 12.9 % (1.0-10.0) H Eosinophils (%) (Auto) 0.2 % (0.0-3.0) Basophils (%) (Auto) 1.0 % (0.0-2.0) Sodium Level 138 MMOL/L (136-145) Potassium Level 3.2 MMOL/L (3.5-5.1) L Chloride Level 98 MMOL/L (98-107) Carbon Dioxide Level 32 MMOL/L (21-32) Anion Gap 8 mmol/L (5-15) Blood Urea Nitrogen 44 mg/dL (7-18) H Creatinine 5.4 MG/DL (0.55-1.30) H Estimat Glomerular Filtration Rate 9.8 mL/min (>60) Glucose Level 155 MG/DL (74-106) H Calcium Level 8.7 MG/DL (8.5-10.1) Phosphorus Level 3.8 MG/DL (2.5-4.9) Magnesium Level 1.9 MG/DL (1.8-2.4) Total Bilirubin 0.7 MG/DL (0.2-1.0) Gamma Glutamyl Transpeptidase 267 U/L (5-85) H Aspartate Amino Transf (AST/SGOT) 42 U/L (15-37) H Alanine Aminotransferase (ALT/SGPT) 86 U/L (12-78) H Alkaline Phosphatase 188 U/L (46-116) H C-Reactive Protein, Quantitative 4.5 mg/dL (0.00-0.90) H Pro-B-Type Natriuretic Peptide 1271 pg/mL (0-125) H Total Protein 7.4 G/DL (6.4-8.2) Albumin 2.3 G/DL (3.4-5.0) L Globulin 5.1 g/dL Albumin/Globulin Ratio 0.5 (1.0-2.7) L Yariel Malone MD December 11, 2017 11:38
--- NOTE | 2017-12-11 11:55 | Nephrology Progress Note ---
Assessment/Plan Problem List: (1) Acute renal failure (ARF) (2) Acute respiratory failure (3) Acute on chronic diastolic (congestive) heart failure (4) Elevated liver enzymes Assessment - Acute & chronic respiratory failure, - Bacteremia - ATN (acute tubular necrosis), ARF - Acute encephalopathy - Aspiration pnemonia vs HCAP - Likely obesity hypoventilation syndrome - Elevated liver enzymes Plan Acute renal failure, dialysed 12/07 & 12/09 HD 12/11 today low BP resolved resp failure , intubated, resp management obese Hydrocortisone Midodrine if BP low Up hydralazine 25 Q6 Subjective ROS Limited/Unobtainable: Yes Objective Objective Last 24 Hour Vital Signs Date Time Temp Pulse Resp B/P (MAP) Pulse Ox O2 Delivery O2 Flow Rate FiO2 12/11/17 11:00 47 20 137/75 99 Mechanical Ventilator 40 12/11/17 10:00 45 20 129/45 99 Mechanical Ventilator 40 12/11/17 09:52 40 12/11/17 09:36 98 12/11/17 09:35 40 12/11/17 09:00 98.2 42 17 129/52 99 Mechanical Ventilator 40 98.2 12/11/17 08:55 44 16 40 12/11/17 08:00 40 12/11/17 08:00 41 17 120/43 99 Mechanical Ventilator 40 12/11/17 08:00 44 12/11/17 07:00 42 14 113/42 99 Mechanical Ventilator 40 12/11/17 06:42 50 16 40 12/11/17 06:39 208.4 41 14 99 12/11/17 06:36 121/60 12/11/17 06:00 41 14 121/60 99 Mechanical Ventilator 40 12/11/17 05:00 40 14 135/40 99 Mechanical Ventilator 40 12/11/17 04:50 41 14 40 12/11/17 04:00 40 12/11/17 04:00 41 12/11/17 04:00 98.0 41 14 138/41 99 Mechanical Ventilator 40 98.0 12/11/17 03:05 41 14 40 12/11/17 03:00 43 14 131/42 99 Mechanical Ventilator 40 12/11/17 02:00 49 17 126/53 100 Mechanical Ventilator 40 12/11/17 01:31 68 18 40 12/11/17 01:00 45 15 116/73 97 Mechanical Ventilator 40 12/11/17 00:00 98.6 45 16 135/47 100 Mechanical Ventilator 40 98.6 12/11/17 00:00 40 12/11/17 00:00 53 12/10/17 23:48 124/45 12/10/17 23:00 45 15 140/43 99 Mechanical Ventilator 40 12/10/17 22:42 49 15 40 12/10/17 22:00 46 14 136/42 99 Mechanical Ventilator 40 12/10/17 21:13 48 15 40 12/10/17 21:00 49 16 130/57 92 Mechanical Ventilator 40 12/10/17 20:00 40 12/10/17 20:00 98.2 49 14 142/36 91 Mechanical Ventilator 40 98.2 12/10/17 19:58 48 12/10/17 19:00 52 16 156/43 90 Mechanical Ventilator 40 12/10/17 18:58 163/55 12/10/17 18:54 50 20 40 12/10/17 18:00 163/55 12/10/17 18:00 40 14 168/55 100 Mechanical Ventilator 40 12/10/17 17:00 44 15 163/55 100 Mechanical Ventilator 40 12/10/17 17:00 98.4 44 15 163/55 100 Mechanical Ventilator 98.4 12/10/17 16:45 57 20 40 12/10/17 16:00 50 12/10/17 16:00 50 12/10/17 16:00 43 12/10/17 16:00 61 17 153/54 92 Mechanical Ventilator 12/10/17 15:00 49 15 155/56 100 Mechanical Ventilator 12/10/17 14:00 38 16 197/63 100 Mechanical Ventilator 12/10/17 13:58 161/88 12/10/17 13:00 41 21 185/59 98 Mechanical Ventilator 12/10/17 12:59 56 16 40 12/10/17 12:00 50 12/10/17 12:00 48 12/10/17 12:00 46 14 161/88 97 12/10/17 11:54 49 15 159/57 97 Mechanical Ventilator Intake and Output 12/10/17 12/11/17 19:00 07:00 Intake Total 300 ml 440 ml Output Total 335 ml 470 ml Balance -35 ml -30 ml IV Total 300 ml 400 ml Tube Feeding 0 ml Other 40 ml Output Urine Total 335 ml 470 ml # Bowel Movements 4 Laboratory Tests 12/11/17 03:30: White Blood Count 10.0, Red Blood Count 3.75L, Hemoglobin 10.7L, Hematocrit 34.6L, Mean Corpuscular Volume 92, Mean Corpuscular Hemoglobin 28.7, Mean Corpuscular Hemoglobin Concent 31.0L, Red Cell Distribution Width 15.2H, Platelet Count 263, Mean Platelet Volume 6.8, Neutrophils (%) (Auto) 51.1, Lymphocytes (%) (Auto) 34.8, Monocytes (%) (Auto) 12.9H, Eosinophils (%) (Auto) 0.2, Basophils (%) (Auto) 1.0, Sodium Level 138, Potassium Level 3.2L, Chloride Level 98, Carbon Dioxide Level 32, Anion Gap 8, Blood Urea Nitrogen 44H, Creatinine 5.4H, Estimat Glomerular Filtration Rate 9.8, Glucose Level 155H, Calcium Level 8.7, Phosphorus Level 3.8, Magnesium Level 1.9, Total Bilirubin 0.7, Gamma Glutamyl Transpeptidase 267H, Aspartate Amino Transf (AST/SGOT) 42H, Alanine Aminotransferase (ALT/SGPT) 86H, Alkaline Phosphatase 188H, C-Reactive Protein, Quantitative 4.5H, Pro-B-Type Natriuretic Peptide 1271H, Total Protein 7.4, Albumin 2.3L, Globulin 5.1, Albumin/Globulin Ratio 0.5L Height (Feet): 5 Height (Inches): 8.00 Weight (Pounds): 450 General Appearance: no apparent distress EENT: other - trached Cardiovascular: bradycardia Respiratory/Chest: decreased breath sounds Abdomen: soft, other - obese Objective no change AGUSTIN CONTRERAS December 11, 2017 11:55
--- NOTE | 2017-12-11 12:38 | General Progress Note ---
Progress Note Progress Note Surgery: no acute events. looks well today. trach clean and functional. patient awake and comfortable. POD #1 s/p trach recovering -swallow eval. -diet -wean vent thank you. Stevan Romero December 11, 2017 12:38
[2017-12-11] MEDS: cefTRIAXone 1 GM in D5W 50 ML IVPB SCH (14:28)
--- NOTE | 2017-12-11 15:50 | Cardiac Electrophysiology PN ---
Assessment/Plan Assessment/Plan 1. Sinus bradycardia with no evidence of heart block. Still savannah even off midodrine. Watch the patient on telemetry. 2. Respiratory failure with hypoxemia and hypercapnia. S/P tracheostomy 3. Hypertension, on hydralazine. 4. Morbid obesity. 5. History of supraventricular tachycardia. 6. Elevated liver enzymes. 7. Renal failure. 8. Passed swallow eval DW RN Subjective Subjective Had tracheostomy yesterday. Alert in NAD.Still savannah. Passed swallow eval. Objective Last 24 Hour Vital Signs Date Time Temp Pulse Resp B/P (MAP) Pulse Ox O2 Delivery O2 Flow Rate FiO2 12/11/17 15:10 46 28 40 12/11/17 15:00 50 20 148/54 99 Mechanical Ventilator 40 12/11/17 14:26 154/54 12/11/17 14:00 98.5 53 20 154/54 99 Mechanical Ventilator 30 98.5 12/11/17 13:14 57 27 40 12/11/17 13:00 44 20 144/70 99 Mechanical Ventilator 40 12/11/17 12:00 46 12/11/17 12:00 46 20 133/74 99 Mechanical Ventilator 40 12/11/17 11:00 47 20 137/75 99 Mechanical Ventilator 40 12/11/17 10:36 53 24 40 12/11/17 10:00 45 20 129/45 99 Mechanical Ventilator 40 12/11/17 09:52 40 12/11/17 09:36 98 12/11/17 09:35 40 12/11/17 09:00 98.2 42 17 129/52 99 Mechanical Ventilator 40 98.2 12/11/17 08:55 44 16 40 12/11/17 08:00 40 12/11/17 08:00 41 17 120/43 99 Mechanical Ventilator 40 12/11/17 08:00 44 12/11/17 07:00 42 14 113/42 99 Mechanical Ventilator 40 12/11/17 06:42 50 16 40 12/11/17 06:39 208.4 41 14 99 12/11/17 06:36 121/60 12/11/17 06:00 41 14 121/60 99 Mechanical Ventilator 40 12/11/17 05:00 40 14 135/40 99 Mechanical Ventilator 40 12/11/17 04:50 41 14 40 12/11/17 04:00 40 12/11/17 04:00 41 5/4/18 04:00 98.0 41 14 138/41 99 Mechanical Ventilator 40 98.0 12/11/17 03:05 41 14 40 12/11/17 03:00 43 14 131/42 99 Mechanical Ventilator 40 12/11/17 02:00 49 17 126/53 100 Mechanical Ventilator 40 12/11/17 01:31 68 18 40 12/11/17 01:00 45 15 116/73 97 Mechanical Ventilator 40 12/11/17 00:00 98.6 45 16 135/47 100 Mechanical Ventilator 40 98.6 12/11/17 00:00 40 12/11/17 00:00 53 12/10/17 23:48 124/45 12/10/17 23:00 45 15 140/43 99 Mechanical Ventilator 40 12/10/17 22:42 49 15 40 12/10/17 22:00 46 14 136/42 99 Mechanical Ventilator 40 12/10/17 21:13 48 15 40 12/10/17 21:00 49 16 130/57 92 Mechanical Ventilator 40 12/10/17 20:00 40 12/10/17 20:00 98.2 49 14 142/36 91 Mechanical Ventilator 40 98.2 12/10/17 19:58 48 12/10/17 19:00 52 16 156/43 90 Mechanical Ventilator 40 12/10/17 18:58 163/55 12/10/17 18:54 50 20 40 12/10/17 18:00 163/55 12/10/17 18:00 40 14 168/55 100 Mechanical Ventilator 40 12/10/17 17:00 44 15 163/55 100 Mechanical Ventilator 40 12/10/17 17:00 98.4 44 15 163/55 100 Mechanical Ventilator 98.4 12/10/17 16:45 57 20 40 12/10/17 16:00 50 12/10/17 16:00 50 12/10/17 16:00 43 12/10/17 16:00 61 17 153/54 92 Mechanical Ventilator Intake and Output 12/10/17 12/11/17 19:00 07:00 Intake Total 300 ml 440 ml Output Total 335 ml 470 ml Balance -35 ml -30 ml IV Total 300 ml 400 ml Tube Feeding 0 ml Other 40 ml Output Urine Total 335 ml 470 ml # Bowel Movements 4 Laboratory Tests Test 12/11/17 03:30 12/11/17 10:45 White Blood Count 10.0 K/UL (4.8-10.8) Red Blood Count 3.75 M/UL (4.20-5.40) L Hemoglobin 10.7 G/DL (12.0-16.0) L Hematocrit 34.6 % (37.0-47.0) L Mean Corpuscular Volume 92 FL (80-99) Mean Corpuscular Hemoglobin 28.7 PG (27.0-31.0) Mean Corpuscular Hemoglobin Concent 31.0 G/DL (32.0-36.0) L Red Cell Distribution Width 15.2 % (11.6-14.8) H Platelet Count 263 K/UL (150-450) Mean Platelet Volume 6.8 FL (6.5-10.1) Neutrophils (%) (Auto) 51.1 % (45.0-75.0) Lymphocytes (%) (Auto) 34.8 % (20.0-45.0) Monocytes (%) (Auto) 12.9 % (1.0-10.0) H Eosinophils (%) (Auto) 0.2 % (0.0-3.0) Basophils (%) (Auto) 1.0 % (0.0-2.0) Sodium Level 138 MMOL/L (136-145) Potassium Level 3.2 MMOL/L (3.5-5.1) L Chloride Level 98 MMOL/L (98-107) Carbon Dioxide Level 32 MMOL/L (21-32) Anion Gap 8 mmol/L (5-15) Blood Urea Nitrogen 44 mg/dL (7-18) H Creatinine 5.4 MG/DL (0.55-1.30) H Estimat Glomerular Filtration Rate 9.8 mL/min (>60) Glucose Level 155 MG/DL (74-106) H Calcium Level 8.7 MG/DL (8.5-10.1) Phosphorus Level 3.8 MG/DL (2.5-4.9) Magnesium Level 1.9 MG/DL (1.8-2.4) Total Bilirubin 0.7 MG/DL (0.2-1.0) Gamma Glutamyl Transpeptidase 267 U/L (5-85) H Aspartate Amino Transf (AST/SGOT) 42 U/L (15-37) H Alanine Aminotransferase (ALT/SGPT) 86 U/L (12-78) H Alkaline Phosphatase 188 U/L (46-116) H C-Reactive Protein, Quantitative 4.5 mg/dL (0.00-0.90) H Pro-B-Type Natriuretic Peptide 1271 pg/mL (0-125) H Total Protein 7.4 G/DL (6.4-8.2) Albumin 2.3 G/DL (3.4-5.0) L Globulin 5.1 g/dL Albumin/Globulin Ratio 0.5 (1.0-2.7) L Arterial Blood pH 7.390 (7.350-7.450) Arterial Blood Partial Pressure CO2 53.7 mmHg (35.0-45.0) H Arterial Blood Partial Pressure O2 120.0 mmHg (75.0-100.0) H Arterial Blood HCO3 31.9 mmol/L (22.0-26.0) H Arterial Blood Oxygen Saturation 98.0 % (92.0-98.0) Arterial Blood Base Excess 5.8 Doroteo Test Positive Microbiology Date/Time Source Procedure Growth Status 12/10/17 22:00 Sputum Gram Stain - Final Resulted 12/10/17 22:00 Sputum Sputum Culture Pending Resulted Objective HEAD AND NECK: No JVD. S/P Tracheostomy LUNGS: Coarse rhonchi. CARDIOVASCULAR: Bradycardic. S1 and S2 with no gallop. ABDOMEN: Morbidly obese. EXTREMITIES: 1+ pitting edema. Melvin Bejarano MD December 11, 2017 15:50
[2017-12-11] MEDS ORDERED: DiphenhydrAMINE 50mg/ml Inj IVP PRN (17:00)
[2017-12-11] MEDS ORDERED: Nitroglycerin Subl 0.4mg tab SL PRN (17:00)
--- NOTE | 2017-12-11 17:23 | General Progress Note ---
Assessment/Plan Status: stable Assessment/Plan 1. Coagulopathy, potentially secondary to liver problem, liver disease. --> On anticoag 2. The patient has transaminitis as well as elevated --> Continue to closely monitor for improvement. Albumin of 2.1 as well. 3. Anemia due to underlying chronic disease. --> Continue to closely monitor. Anemia workup has been reviewed. --> Blood transfusion not required unless symptomatic or hgb <7 --> Hgb has been stable. 4. Transaminitis, potentially secondary to shock liver versus other cause. 5. Acute tubular necrosis with elevated creatinine. Continue to closely monitor. 6. Likely obesity hypoventilation syndrome. 7. Respiratory failure, status post intubation. 8. Leukocytosis, potentially secondary to infection. --> Worsened again. Monitor for improvement. 9. Acute kidney injury. The patient's creatinine within normal limits on admission, potentially secondary to shock. 10. Elevated liver enzymes. 11. Bradycardia. Subjective Date patient seen: December 10, 2017 Allergies: Coded Allergies: ASPARTAME (Verified Allergy, Unknown, 11/30/17) Headache Subjective Patient is awake, alert. Watching TV. Maintaining saturation at current vent settings. No active bleeding at tracheostomy site. No complains of any pain or discomfort. Bed in locked position Objective Last 24 Hour Vital Signs Date Time Temp Pulse Resp B/P (MAP) Pulse Ox O2 Delivery O2 Flow Rate FiO2 12/11/17 16:53 98.1 54 27 148/61 98 Mechanical Ventilator 30 98.1 12/11/17 16:43 54 23 40 12/11/17 16:00 50 12/11/17 16:00 48 20 144/50 99 Mechanical Ventilator 40 12/11/17 16:00 40 12/11/17 15:10 46 28 40 12/11/17 15:00 50 20 148/54 99 Mechanical Ventilator 40 12/11/17 14:26 154/54 12/11/17 14:00 98.5 53 20 154/54 99 Mechanical Ventilator 30 98.5 12/11/17 13:14 57 27 40 12/11/17 13:00 44 20 144/70 99 Mechanical Ventilator 40 12/11/17 12:00 46 12/11/17 12:00 46 20 133/74 99 Mechanical Ventilator 40 12/11/17 11:00 47 20 137/75 99 Mechanical Ventilator 40 12/11/17 10:36 53 24 40 12/11/17 10:00 45 20 129/45 99 Mechanical Ventilator 40 12/11/17 09:52 40 12/11/17 09:36 98 12/11/17 09:35 40 12/11/17 09:00 98.2 42 17 129/52 99 Mechanical Ventilator 40 98.2 12/11/17 08:55 44 16 40 12/11/17 08:00 40 12/11/17 08:00 41 17 120/43 99 Mechanical Ventilator 40 12/11/17 08:00 44 12/11/17 07:00 42 14 113/42 99 Mechanical Ventilator 40 12/11/17 06:42 50 16 40 12/11/17 06:39 208.4 41 14 99 12/11/17 06:36 121/60 12/11/17 06:00 41 14 121/60 99 Mechanical Ventilator 40 12/11/17 05:00 40 14 135/40 99 Mechanical Ventilator 40 12/11/17 04:50 41 14 40 12/11/17 04:00 40 12/11/17 04:00 41 12/11/17 04:00 98.0 41 14 138/41 99 Mechanical Ventilator 40 98.0 12/11/17 03:05 41 14 40 12/11/17 03:00 43 14 131/42 99 Mechanical Ventilator 40 12/11/17 02:00 49 17 126/53 100 Mechanical Ventilator 40 12/11/17 01:31 68 18 40 12/11/17 01:00 45 15 116/73 97 Mechanical Ventilator 40 12/11/17 00:00 98.6 45 16 135/47 100 Mechanical Ventilator 40 98.6 12/11/17 00:00 40 12/11/17 00:00 53 12/10/17 23:48 124/45 12/10/17 23:00 45 15 140/43 99 Mechanical Ventilator 40 12/10/17 22:42 49 15 40 12/10/17 22:00 46 14 136/42 99 Mechanical Ventilator 40 12/10/17 21:13 48 15 40 12/10/17 21:00 49 16 130/57 92 Mechanical Ventilator 40 12/10/17 20:00 40 12/10/17 20:00 98.2 49 14 142/36 91 Mechanical Ventilator 40 98.2 12/10/17 19:58 48 12/10/17 19:00 52 16 156/43 90 Mechanical Ventilator 40 12/10/17 18:58 163/55 12/10/17 18:54 50 20 40 12/10/17 18:00 163/55 12/10/17 18:00 40 14 168/55 100 Mechanical Ventilator 40 Intake and Output 12/10/17 12/11/17 19:00 07:00 Intake Total 300 ml 540 ml Output Total 335 ml 470 ml Balance -35 ml 70 ml IV Total 300 ml 500 ml Tube Feeding 0 ml Other 40 ml Output Urine Total 335 ml 470 ml # Bowel Movements 4 Laboratory Tests 12/11/17 03:30: White Blood Count 10.0, Red Blood Count 3.75L, Hemoglobin 10.7L, Hematocrit 34.6L, Mean Corpuscular Volume 92, Mean Corpuscular Hemoglobin 28.7, Mean Corpuscular Hemoglobin Concent 31.0L, Red Cell Distribution Width 15.2H, Platelet Count 263, Mean Platelet Volume 6.8, Neutrophils (%) (Auto) 51.1, Lymphocytes (%) (Auto) 34.8, Monocytes (%) (Auto) 12.9H, Eosinophils (%) (Auto) 0.2, Basophils (%) (Auto) 1.0, Sodium Level 138, Potassium Level 3.2L, Chloride Level 98, Carbon Dioxide Level 32, Anion Gap 8, Blood Urea Nitrogen 44H, Creatinine 5.4H, Estimat Glomerular Filtration Rate 9.8, Glucose Level 155H, Calcium Level 8.7, Phosphorus Level 3.8, Magnesium Level 1.9, Total Bilirubin 0.7, Gamma Glutamyl Transpeptidase 267H, Aspartate Amino Transf (AST/SGOT) 42H, Alanine Aminotransferase (ALT/SGPT) 86H, Alkaline Phosphatase 188H, C-Reactive Protein, Quantitative 4.5H, Pro-B-Type Natriuretic Peptide 1271H, Total Protein 7.4, Albumin 2.3L, Globulin 5.1, Albumin/Globulin Ratio 0.5L 12/11/17 10:45: Arterial Blood pH 7.390, Arterial Blood Partial Pressure CO2 53.7H, Arterial Blood Partial Pressure O2 120.0H, Arterial Blood HCO3 31.9H, Arterial Blood Oxygen Saturation 98.0, Arterial Blood Base Excess 5.8, Doroteo Test Positive Height (Feet): 5 Height (Inches): 8.00 Weight (Pounds): 450 General Appearance: no apparent distress Jem Palmer MD December 11, 2017 17:23
--- NOTE | 2017-12-11 17:52 | General Progress Note ---
Assessment/Plan Assessment/Plan Assessment/Plan Problem List: (1) Acute toxic metabolic encephalopathy (2) Acute respiratory failure with hypoxia and hypercapnia ICD Codes: J96.01 - Acute respiratory failure with hypoxia; J96.02 - Acute respiratory failure with hypercapnia SNOMED: 54828336, 93190562, 526418064 (3) Likely obesity hypoventilation syndrome (4) Severe sepsis ICD Codes: A41.9 - Sepsis, unspecified organism; R65.20 - Severe sepsis without septic shock SNOMED: 50011012 (5) KASHIF (acute kidney injury) ICD Codes: N17.9 - Acute kidney failure, unspecified SNOMED: 57850506 (6) ATN (acute tubular necrosis) ICD Codes: N17.0 - Acute kidney failure with tubular necrosis SNOMED: 18318943 (7) Elevated liver enzymes ICD Codes: R74.8 - Abnormal levels of other serum enzymes SNOMED: 018112135 (8) Aspiration pnemonia vs HCAP (9) UTI (urinary tract infection) ICD Codes: N39.0 - Urinary tract infection, site not specified SNOMED: 43307339 Qualifiers: Qualified Codes: N39.0 - Urinary tract infection, site not specified (10) Morbid obesity ICD Codes: E66.01 - Morbid (severe) obesity due to excess calories SNOMED: 504764137, 02354760526924 (11) Chronic diastolic (congestive) heart failure ICD Codes: I50.32 - Chronic diastolic (congestive) heart failure SNOMED: 35503199, 179170049 (12) DM2 (diabetes mellitus, type 2) ICD Codes: E11.9 - Type 2 diabetes mellitus without complications SNOMED: 11933666 (13) Hypertension ICD Codes: I10 - Essential (primary) hypertension SNOMED: 66196888 (14) Fatty liver ICD Codes: K76.0 - Fatty (change of) liver, not elsewhere classified SNOMED: 335312428 (15) GERD (gastroesophageal reflux disease) ICD Codes: K21.9 - Gastro-esophageal reflux disease without esophagitis SNOMED: 755161506 (16) Asthma ICD Codes: J45.909 - Unspecified asthma, uncomplicated SNOMED: 753890633 (17) H/O supraventricular tachycardia ICD Codes: Z86.79 - Personal history of other diseases of the circulatory system SNOMED: 882867326609497 Status: stable Assessment/Plan Cont ICU care Pulm/critical care consulted Cont on vent and wean as tolerated Daily SBTs, sedation holidays This is pt's 3rd intubation in less than 6 months. D/w pulm re likely plan for tracheostomy. D/w pt and son. Surgery consulted s/p tracheostomy on 12/10/17 Currently not requiring pressors. Goal MAP 65 and above Cardiology consulted given bradycardia. Likely 2/2 midodrine Hold midodrine Taper off steroids ID consulted Empiric linezolid, cefepime and flagyl per ID; zosyn d/c'd given KASHIF; vanco d/c' d given KASHIF F/u cultures Nephrology consulted given KASHIF HD line placed and started on HD on 12/07/17. Cont HD per renal Strict I/O's Trend CBC, CMP MAIL LIST LIBRARIAN eval ordered CLD for now Pain control, bowel regimen Supportive care PPI CM consulted for d/c plan to subacute facility vs LTACH such as [place] DVT Prophylaxis: SCD, HSQ Code Status: Full Hospital Classification Declaration: Based on this initial evaluation, and depending on the patient's clinical course, I anticipate that this patient will require hospitalization for 3-4 days for acute respiratory failure, sepsis and close respiratory/hemodynamic monitoring. Disposition: Once the patient is stable to leave the hospital, I anticipate the patient will likely be discharged to the following environment: subacute SNF vs LTACH At the time of my involvement, the patient's condition was critical with high potential for and/or physiologic deterioration secondary to acute respiratory failure, severe sepsis as delineated in the note above. On the above date of service, I spent a total of 39 minutes in the ICU evaluating, managing, and providing critical care services to this patient, including time spent documenting these activities, counseling patient/family, and coordinating care. Critical care services performed include: Telemetry Review Hemodynamic measurement interpretation Laboratory data review and interpretation Ventilator setting review, management, and adjustment Discussion of care plans with patient, family, and/or surrogate decision makers Discussion of patient's care with primary medical team, surgical team, and/or consulting service Decision to obtain further radiologic evaluation, after consideration of risk/ benefit ratio Decision to perform invasive procedure, after consideration of risk/benefit ratio Review of most recent microbiology results with assessment and modification of antimicrobial coverage Discussion of patient's code status and further advancement towards the ultimate goals of care Plan outlined above discussed with patient/family, pulm/critical care, ID regarding mgmt and dispo. D/w pulm re plan for trach. D/w ID re broad-spectrum abx. D/w renal re rising SCr, plan for HD. D/w surgery re tracheostomy Time of note may not reflect time of encounter. Subjective Date patient seen: December 11, 2017 Allergies: Coded Allergies: ASPARTAME (Verified Allergy, Unknown, 11/30/17) Headache Subjective s/p trach, tolerated well passed swallow eval 'awaiting confirmation on bed availability at [place] Objective Last 24 Hour Vital Signs Date Time Temp Pulse Resp B/P (MAP) Pulse Ox O2 Delivery O2 Flow Rate FiO2 12/11/17 16:53 98.1 54 27 148/61 98 Mechanical Ventilator 30 98.1 12/11/17 16:43 54 23 40 12/11/17 16:00 50 12/11/17 16:00 48 20 144/50 99 Mechanical Ventilator 40 12/11/17 16:00 40 12/11/17 15:10 46 28 40 12/11/17 15:00 50 20 148/54 99 Mechanical Ventilator 40 12/11/17 14:26 154/54 12/11/17 14:00 98.5 53 20 154/54 99 Mechanical Ventilator 30 98.5 12/11/17 13:14 57 27 40 12/11/17 13:00 44 20 144/70 99 Mechanical Ventilator 40 12/11/17 12:00 46 12/11/17 12:00 46 20 133/74 99 Mechanical Ventilator 40 12/11/17 11:00 47 20 137/75 99 Mechanical Ventilator 40 12/11/17 10:36 53 24 40 12/11/17 10:00 45 20 129/45 99 Mechanical Ventilator 40 12/11/17 09:52 40 12/11/17 09:36 98 12/11/17 09:35 40 12/11/17 09:00 98.2 42 17 129/52 99 Mechanical Ventilator 40 98.2 12/11/17 08:55 44 16 40 12/11/17 08:00 40 12/11/17 08:00 41 17 120/43 99 Mechanical Ventilator 40 12/11/17 08:00 44 12/11/17 07:00 42 14 113/42 99 Mechanical Ventilator 40 12/11/17 06:42 50 16 40 12/11/17 06:39 208.4 41 14 99 12/11/17 06:36 121/60 12/11/17 06:00 41 14 121/60 99 Mechanical Ventilator 40 12/11/17 05:00 40 14 135/40 99 Mechanical Ventilator 40 12/11/17 04:50 41 14 40 12/11/17 04:00 40 12/11/17 04:00 41 12/11/17 04:00 98.0 41 14 138/41 99 Mechanical Ventilator 40 98.0 12/11/17 03:05 41 14 40 12/11/17 03:00 43 14 131/42 99 Mechanical Ventilator 40 12/11/17 02:00 49 17 126/53 100 Mechanical Ventilator 40 12/11/17 01:31 68 18 40 12/11/17 01:00 45 15 116/73 97 Mechanical Ventilator 40 12/11/17 00:00 98.6 45 16 135/47 100 Mechanical Ventilator 40 98.6 12/11/17 00:00 40 12/11/17 00:00 53 12/10/17 23:48 124/45 12/10/17 23:00 45 15 140/43 99 Mechanical Ventilator 40 12/10/17 22:42 49 15 40 12/10/17 22:00 46 14 136/42 99 Mechanical Ventilator 40 12/10/17 21:13 48 15 40 12/10/17 21:00 49 16 130/57 92 Mechanical Ventilator 40 12/10/17 20:00 40 12/10/17 20:00 98.2 49 14 142/36 91 Mechanical Ventilator 40 98.2 12/10/17 19:58 48 12/10/17 19:00 52 16 156/43 90 Mechanical Ventilator 40 12/10/17 18:58 163/55 12/10/17 18:54 50 20 40 12/10/17 18:00 163/55 12/10/17 18:00 40 14 168/55 100 Mechanical Ventilator 40 Intake and Output 12/10/17 12/11/17 19:00 07:00 Intake Total 300 ml 540 ml Output Total 335 ml 470 ml Balance -35 ml 70 ml IV Total 300 ml 500 ml Tube Feeding 0 ml Other 40 ml Output Urine Total 335 ml 470 ml # Bowel Movements 4 Laboratory Tests 12/11/17 03:30: White Blood Count 10.0, Red Blood Count 3.75L, Hemoglobin 10.7L, Hematocrit 34.6L, Mean Corpuscular Volume 92, Mean Corpuscular Hemoglobin 28.7, Mean Corpuscular Hemoglobin Concent 31.0L, Red Cell Distribution Width 15.2H, Platelet Count 263, Mean Platelet Volume 6.8, Neutrophils (%) (Auto) 51.1, Lymphocytes (%) (Auto) 34.8, Monocytes (%) (Auto) 12.9H, Eosinophils (%) (Auto) 0.2, Basophils (%) (Auto) 1.0, Sodium Level 138, Potassium Level 3.2L, Chloride Level 98, Carbon Dioxide Level 32, Anion Gap 8, Blood Urea Nitrogen 44H, Creatinine 5.4H, Estimat Glomerular Filtration Rate 9.8, Glucose Level 155H, Calcium Level 8.7, Phosphorus Level 3.8, Magnesium Level 1.9, Total Bilirubin 0.7, Gamma Glutamyl Transpeptidase 267H, Aspartate Amino Transf (AST/SGOT) 42H, Alanine Aminotransferase (ALT/SGPT) 86H, Alkaline Phosphatase 188H, C-Reactive Protein, Quantitative 4.5H, Pro-B-Type Natriuretic Peptide 1271H, Total Protein 7.4, Albumin 2.3L, Globulin 5.1, Albumin/Globulin Ratio 0.5L 12/11/17 10:45: Arterial Blood pH 7.390, Arterial Blood Partial Pressure CO2 53.7H, Arterial Blood Partial Pressure O2 120.0H, Arterial Blood HCO3 31.9H, Arterial Blood Oxygen Saturation 98.0, Arterial Blood Base Excess 5.8, Doroteo Test Positive Height (Feet): 5 Height (Inches): 8.00 Weight (Pounds): 450 Objective General: awake, alert, NAD, morbidly obese Head: normocephalic, without obvious abnormality, atraumatic Eyes: conjunctivae/corneas clear. PERRL, EOM's intact Throat: lips, mucosa, and tongue normal. MMM Neck: supple, symmetrical, trachea midline, +tracheostomy c/d/i Lungs:+rhonchi b/l Heart: regular rate and rhythm, S1, S2 normal, no murmur, click, rub or gallop Abdomen: soft, non-tender, non-distended, bowel sounds normal Extremities: extremities normal, atraumatic, no cyanosis or edema Pulses: 2+ and symmetric Skin: skin color, texture, turgor normal; no rashes or lesions Neurologic: sedated Cj Oneill MD December 11, 2017 17:52
[2017-12-11] MEDS: Acetaminophen 650mg/20.3ml NG PRN (18:12)
--- NOTE | 2017-12-11 19:15 | Operative Note - Dictated ---
DATE OF OPERATION: 12/11/2017 PREOPERATIVE DIAGNOSES: 1. Respiratory failure. 2. Necessity for protected airway. 3. Prolonged positive pressure support required. 4. Acute respiratory failure with hypoxia and hypercapnia. POSTOPERATIVE DIAGNOSES: 1. Respiratory failure. 2. Necessity for protected airway. 3. Prolonged positive pressure support required. 4. Acute respiratory failure with hypoxia and hypercapnia. OPERATION PERFORMED: Tracheostomy. ATTENDING SURGEON: Stevan Romero M.D. FOREMAN/PROJECT MANAGER: None. ANESTHESIOLOGIST: Ki Sanchez M.D. ANESTHESIA: General SHUTTLER CAR. ESTIMATED BLOOD LOSS: Minimal. IV FLUIDS: Please see anesthesia records. COMPLICATIONS: None. ANTIBIOTICS: The patient on scheduled IV antibiotics for acute active inflammatory process prior to entering the operating room. SPECIMENS: None. WOUND CLASSIFICATION: Class I. DRAINS: None. COUNTS: Sponge and needle count correct x2. INDICATIONS FOR PROCEDURE: The patient is a 57-year-old female who was seen during a recent admission for altered level consciousness, hypoxia, hypercapnia and respiratory failure requiring intubation. Fortunately during that episode, the patient was able to be extubated and discharged safely, but returned within 24 hours with a similar events requiring repeat intubation and positive pressure ventilation. Given this, the patient was seen again during second admission and given the above findings. After multidisciplinary team effort, decision was made to discuss tracheostomy with the patient. The patient will likely need prolonged positive pressure support/ventilator support given recent events. Furthermore, a protected airway in this patient's situation would be highly recommended and tracheostomy was indicated and recommended. Risks, benefits, and alternatives were discussed with the patient and her family in detail and consent was obtained for procedure, which was performed. OPERATIVE NOTE: The patient was taken directly from the intensive care unit to the operating room and placed on the operating table in the supine position with bilateral arms out. All bony prominences were well padded. The patient already intubated with an ET tube placed prior to entering the operating room. Preoperative time-out was taken identifying the patient, procedure, operative staff, and surgical staff. SCDs were placed. General anesthesia was induced. A shoulder roll was placed and the neck was hyperflexed. The neck was then prepped and draped in standard surgical fashion. A cervical skin incision was made approximately 1 to 2 fingerbreadths above the sternal notch. Incision was carried down through the skin, subcutaneous tissue, and platysma using electrocautery and blunt dissection as necessary. Small superficial veins were ligated using 3-0 silk ties. The strap muscles were identified and divided at the median raphae. The isthmus of the thyroid lobe was identified and retracted laterally. This gave direct visualization of the trachea. The thyroid cartilage and tracheal rings were identified. The first and second tracheal ring were bluntly dissected out. A tracheal hook was placed and the trachea was stabilized. At this time, with the assistance of the anesthesiologist, a Gary flap was made at the level of the second tracheal ring using a fresh #11 scalpel and Metzenbaum scissors. Once the flap was created and opened, the ET tube was identified and the ET tube was desufflated and the endotracheal tube was slowly withdrawn. Once the endotracheal tube was above the level of the flap, an 8-Wolof Shiley XLT tracheostomy tube was inserted under direct visualization without complication. The endotracheal tube was removed and the patient was ventilated through the newly placed tracheostomy with good end-tidal CO2 and volumes. At this time, the balloon was insufflated and we began the closure of procedure. A 3-0 silk ties were used to hemostasis from small venous bleeding as necessary. Electrocautery was used as well for hemostasis as necessary. The wound was irrigated and closed in a two-layer fashion beginning with a 3-0 Vicryl suture to reapproximate the platysma and a 3-0 Monocryl suture in an interrupted fashion to reapproximate the skin. The trachea was anchored to the skin using 2-0 silk sutures. A tracheal tie was placed. At this time, we concluded our procedure and the patient was taken directly to the intensive care unit in stable condition. Stevan Romero M.D. DR: BA JOB#: [id number] CC: DONNIE
[2017-12-12] VITALS (7 sets, daily range): BP systolic 95–151; BP diastolic 45–78
[2017-12-12] MEDS: HydrALAZINE 25mg tab NG SCH ×4 (00:31→18:31)
[2017-12-12] MEDS: Pantoprazole Inj IVP SCH ×3 (00:32→20:00)
[2017-12-12] MEDS: Heparin 5000 units/ml inj SUBQ SCH ×3 (00:45→20:06)
[2017-12-12] MEDS: NovoLOG Insulin Flexpen SUBQ SCH ×4 (00:51→18:39)
[2017-12-12] MEDS: Acetaminophen 650mg/20.3ml NG PRN (04:23)
[2017-12-12 05:34] LABS: BASOPHILS % (AUTO) 0.8 % (0.0-2.0); EOSINOPHILS % (AUTO) 0.3 % (0.0-3.0); HEMATOCRIT 33.7 % (37.0-47.0); HEMOGLOBIN 10.8 G/DL (12.0-16.0); LYMPHOCYTES % (AUTO) 37.5 % (20.0-45.0); MEAN CORPUSCULAR VOLUME 93 FL (80-99); MONOCYTES % (AUTO) 14.2 % (1.0-10.0); NEUTROPHILS % (AUTO) 47.1 % (45.0-75.0); PLATELET COUNT 241 K/UL (150-450); RED BLOOD COUNT 3.63 M/UL (4.20-5.40); RED CELL DISTRIBUTION WIDTH 15.3 % (11.6-14.8); WHITE BLOOD COUNT 9.6 K/UL (4.8-10.8)
[2017-12-12 06:13] LABS: ALANINE AMINOTRANSFERASE 68 U/L (12-78); ALBUMIN 2.3 G/DL (3.4-5.0); ALBUMIN/GLOBULIN RATIO 0.5 (1.0-2.7); ALKALINE PHOSPHATASE 165 U/L (46-116); ANION GAP 7 mmol/L (5-15); ASPARTATE AMINO TRANSFERASE 32 U/L (15-37); BILIRUBIN,TOTAL 0.6 MG/DL (0.2-1.0); BLOOD UREA NITROGEN 32 mg/dL (7-18); CALCIUM 8.5 MG/DL (8.5-10.1); CARBON DIOXIDE 33 MMOL/L (21-32); CHLORIDE 98 MMOL/L (98-107); CREATINE KINASE 46 U/L (26-308); CREATININE 3.8 MG/DL (0.55-1.30); GAMMA GLUTAMYL TRANSPEPTIDASE 247 U/L (5-85); PHOSPHORUS 3.2 MG/DL (2.5-4.9); SODIUM 138 MMOL/L (136-145)
--- NOTE | 2017-12-12 09:47 | Nephrology Progress Note ---
Assessment/Plan Problem List: (1) Acute renal failure (ARF) (2) Acute respiratory failure (3) Acute on chronic diastolic (congestive) heart failure (4) Elevated liver enzymes Assessment - Acute & chronic respiratory failure, - Bacteremia - ATN (acute tubular necrosis), ARF - Acute encephalopathy - Aspiration pnemonia vs HCAP - Likely obesity hypoventilation syndrome - Elevated liver enzymes Plan Acute renal failure, HD last 12/11 low BP resolved resp failure , intubated, resp management obese Hydrocortisone Midodrine if BP low Up hydralazine 25 Q6 Subjective ROS Limited/Unobtainable: Yes Objective Objective Last 24 Hour Vital Signs Date Time Temp Pulse Resp B/P (MAP) Pulse Ox O2 Delivery O2 Flow Rate FiO2 12/12/17 08:54 66 15 30 12/12/17 07:51 41 19 30 12/12/17 05:47 147/63 12/12/17 04:55 60 24 30 12/12/17 04:00 98.0 53 14 147/63 99 Mechanical Ventilator 30 98.0 12/12/17 04:00 30 12/12/17 04:00 48 12/12/17 03:30 62 16 30 12/12/17 01:30 60 15 30 12/12/17 00:37 Mechanical Ventilator 30 12/12/17 00:34 98.4 45 16 151/78 Mechanical Ventilator 30 98.4 12/12/17 00:31 151/78 12/12/17 00:00 98.4 95 16 151/78 98 Mechanical Ventilator 30 98.4 12/12/17 00:00 47 12/12/17 00:00 30 12/11/17 23:24 61 21 30 12/11/17 21:30 62 20 30 12/11/17 20:30 Mechanical Ventilator 30 12/11/17 20:30 98.0 49 16 175/83 Endotracheal Tube 30 98.0 12/11/17 20:00 99.0 58 17 112/58 99 Mechanical Ventilator 30 99.0 12/11/17 20:00 56 12/11/17 20:00 40 12/11/17 19:30 60 17 30 12/11/17 18:42 98.1 12/11/17 18:12 98.1 12/11/17 18:11 148/61 12/11/17 16:53 98.1 54 27 148/61 98 Mechanical Ventilator 30 98.1 12/11/17 16:43 54 23 40 12/11/17 16:00 50 12/11/17 16:00 48 20 144/50 99 Mechanical Ventilator 40 12/11/17 16:00 40 12/11/17 15:10 46 28 40 12/11/17 15:00 50 20 148/54 99 Mechanical Ventilator 40 12/11/17 14:26 154/54 12/11/17 14:00 98.5 53 20 154/54 99 Mechanical Ventilator 30 98.5 12/11/17 13:14 57 27 40 12/11/17 13:00 44 20 144/70 99 Mechanical Ventilator 40 12/11/17 12:00 46 12/11/17 12:00 46 20 133/74 99 Mechanical Ventilator 40 12/11/17 11:00 47 20 137/75 99 Mechanical Ventilator 40 12/11/17 10:36 53 24 40 12/11/17 10:00 45 20 129/45 99 Mechanical Ventilator 40 12/11/17 09:52 40 Intake and Output 12/11/17 12/12/17 19:00 07:00 Intake Total 690 ml 100 ml Output Total 510 ml 4050 ml Balance 180 ml -3950 ml Intake Oral 240 ml IV Total 450 ml 100 ml Output Urine Total 510 ml 1000 ml Hemodialysis UF 3050 ml # Bowel Movements 4 Laboratory Tests 12/11/17 10:45: Arterial Blood pH 7.390, Arterial Blood Partial Pressure CO2 53.7H, Arterial Blood Partial Pressure O2 120.0H, Arterial Blood HCO3 31.9H, Arterial Blood Oxygen Saturation 98.0, Arterial Blood Base Excess 5.8, Doroteo Test Positive 12/12/17 04:05: White Blood Count 9.6, Red Blood Count 3.63L, Hemoglobin 10.8L, Hematocrit 33.7L , Mean Corpuscular Volume 93, Mean Corpuscular Hemoglobin 29.7, Mean Corpuscular Hemoglobin Concent 31.9L, Red Cell Distribution Width 15.3H, Platelet Count 241, Mean Platelet Volume 6.7, Neutrophils (%) (Auto) 47.1, Lymphocytes (%) (Auto) 37.5, Monocytes (%) (Auto) 14.2H, Eosinophils (%) (Auto) 0.3, Basophils (%) (Auto) 0.8, Sodium Level 138, Potassium Level 3.0L, Chloride Level 98, Carbon Dioxide Level 33H, Anion Gap 7, Blood Urea Nitrogen 32H, Creatinine 3.8H, Estimat Glomerular Filtration Rate 14.8, Glucose Level 140H, Uric Acid 5.4, Calcium Level 8.5, Phosphorus Level 3.2, Magnesium Level 1.7L, Total Bilirubin 0.6, Gamma Glutamyl Transpeptidase 247H, Aspartate Amino Transf (AST/SGOT) 32, Alanine Aminotransferase (ALT/SGPT) 68, Alkaline Phosphatase 165H , Total Creatine Kinase 46, C-Reactive Protein, Quantitative 4.4H, Pro-B-Type Natriuretic Peptide 1097H, Total Protein 7.2, Albumin 2.3L, Globulin 4.9, Albumin/Globulin Ratio 0.5L Height (Feet): 5 Height (Inches): 8.00 Weight (Pounds): 461 EENT: other - trach site clean Cardiovascular: bradycardia Respiratory/Chest: decreased breath sounds Abdomen: soft Objective no change AGUSTIN CONTRERAS December 12, 2017 09:47
--- NOTE | 2017-12-12 10:13 | Pulmonology Progress Note ---
Assessment/Plan Assessment/Plan ASSESSMENT Acute hypoxemic hypercapnic respiratory failure requiring intubation Failure to wean Status post tracheostomy 12/10/17 Acute toxic metabolic encephalopathy-resolved ( likely due to severe sepsis, ARF) Severe sepsis Acute renal failure, requiring hemodialysis/acute tubular necrosis MRSA pneumonia Fungal UTI Likely obesity hypoventilation syndrome Transaminitis-resolved Hypertension Sinus bradycardia Morbid obesity Chronic diastolic heart failure COPD Diabetes mellitus PLAN OF CARE Transferred to [facility] 3 intubation in 3 months , family and patient agreed with a tracheostomy status post tracheostomy 12/10/17 surgery closely follows vent support tracheostomy care pulmonary toilet follow-up with a chest x-ray Passe Dimple eval done and trials passed swallow eval diet as per ST recs with strict aspiration/reflux precautions VSS on Thursday on Thursday start trial on weaning to trach collar as tolerated antibiotic ID follows sputum culture MRSA, another P; urine culture + Tamia, initial blood cultures + Diphtheroids, surveillance blood culture negative, likely contaminant leukocytosis resolved, afebrile Echocardiogram 0no evidence of vegetation. 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 follows hemodialysis as per piercer operator with close monitoring of renal parameters and electrolytes started on hydrocortisone avoid nephrotoxic Tank Farm Attendant follows ECHO with pEF 55-60% blood pressure management with hydralazine Sinus bradycardia no evidence of heart block , off midodrine but heart rate remains in 40s per further cardio management Pain management Bowel regimen DVT GI prophylaxis blood sugar management with sliding scale insulin LFT down to normal case discussed and evaluated by supervising physician Subjective Allergies: Coded Allergies: ASPARTAME (Verified Allergy, Unknown, 11/30/17) Headache Subjective transferred to [facility] no signs of resp distress on current settings, passed swallow eval and started on trial of Passe Wallace valve Objective Last 24 Hour Vital Signs Date Time Temp Pulse Resp B/P (MAP) Pulse Ox O2 Delivery O2 Flow Rate FiO2 12/12/17 08:54 66 15 30 12/12/17 07:51 41 19 30 12/12/17 05:47 147/63 12/12/17 04:55 60 24 30 12/12/17 04:00 98.0 53 14 147/63 99 Mechanical Ventilator 30 98.0 12/12/17 04:00 30 12/12/17 04:00 48 12/12/17 03:30 62 16 30 12/12/17 01:30 60 15 30 12/12/17 00:37 Mechanical Ventilator 30 12/12/17 00:34 98.4 45 16 151/78 Mechanical Ventilator 30 98.4 12/12/17 00:31 151/78 12/12/17 00:00 98.4 95 16 151/78 98 Mechanical Ventilator 30 98.4 12/12/17 00:00 47 12/12/17 00:00 30 12/11/17 23:24 61 21 30 12/11/17 21:30 62 20 30 12/11/17 20:30 Mechanical Ventilator 30 12/11/17 20:30 98.0 49 16 175/83 Endotracheal Tube 30 98.0 12/11/17 20:00 99.0 58 17 112/58 99 Mechanical Ventilator 30 99.0 12/11/17 20:00 56 12/11/17 20:00 40 12/11/17 19:30 60 17 30 12/11/17 18:42 98.1 12/11/17 18:12 98.1 12/11/17 18:11 148/61 12/11/17 16:53 98.1 54 27 148/61 98 Mechanical Ventilator 30 98.1 12/11/17 16:43 54 23 40 12/11/17 16:00 50 12/11/17 16:00 48 20 144/50 99 Mechanical Ventilator 40 12/11/17 16:00 40 12/11/17 15:10 46 28 40 12/11/17 15:00 50 20 148/54 99 Mechanical Ventilator 40 12/11/17 14:26 154/54 12/11/17 14:00 98.5 53 20 154/54 99 Mechanical Ventilator 30 98.5 12/11/17 13:14 57 27 40 12/11/17 13:00 44 20 144/70 99 Mechanical Ventilator 40 12/11/17 12:00 46 12/11/17 12:00 46 20 133/74 99 Mechanical Ventilator 40 12/11/17 11:00 47 20 137/75 99 Mechanical Ventilator 40 12/11/17 10:36 53 24 40 12/11/17 10:00 45 20 129/45 99 Mechanical Ventilator 40 Intake and Output 12/11/17 12/12/17 19:00 07:00 Intake Total 690 ml 100 ml Output Total 510 ml 4050 ml Balance 180 ml -3950 ml Intake Oral 240 ml IV Total 450 ml 100 ml Output Urine Total 510 ml 1000 ml Hemodialysis UF 3050 ml # Bowel Movements 4 General Appearance: no acute distress, other - awake, alert, morbidly obese AA female on vent AC 600-14-30% HEENT: normocephalic, atraumatic, anicteric, status post trach - Shiley #8, secretions small, pink , thin Respiratory/Chest: lungs clear, no respiratory distress Cardiovascular: normal peripheral pulses, regular rhythm, no JVD, bradycardia - ASB on tele in 40th Abdomen: normal bowel sounds, soft, non tender - obese Extremities: pedal pulses normal, other - trace edema BLE Neurologic/Psychiatric: abnormal gait, alert, responsive Microbiology Date/Time Source Procedure Growth Status 12/10/17 22:00 Sputum Gram Stain - Final Resulted 12/10/17 22:00 Sputum Sputum Culture Pending Resulted Laboratory Tests 12/11/17 10:45: Arterial Blood pH 7.390, Arterial Blood Partial Pressure CO2 53.7H, Arterial Blood Partial Pressure O2 120.0H, Arterial Blood HCO3 31.9H, Arterial Blood Oxygen Saturation 98.0, Arterial Blood Base Excess 5.8, Doroteo Test Positive 12/12/17 04:05: White Blood Count 9.6, Red Blood Count 3.63L, Hemoglobin 10.8L, Hematocrit 33.7L , Mean Corpuscular Volume 93, Mean Corpuscular Hemoglobin 29.7, Mean Corpuscular Hemoglobin Concent 31.9L, Red Cell Distribution Width 15.3H, Platelet Count 241, Mean Platelet Volume 6.7, Neutrophils (%) (Auto) 47.1, Lymphocytes (%) (Auto) 37.5, Monocytes (%) (Auto) 14.2H, Eosinophils (%) (Auto) 0.3, Basophils (%) (Auto) 0.8, Sodium Level 138, Potassium Level 3.0L, Chloride Level 98, Carbon Dioxide Level 33H, Anion Gap 7, Blood Urea Nitrogen 32H, Creatinine 3.8H, Estimat Glomerular Filtration Rate 14.8, Glucose Level 140H, Uric Acid 5.4, Calcium Level 8.5, Phosphorus Level 3.2, Magnesium Level 1.7L, Total Bilirubin 0.6, Gamma Glutamyl Transpeptidase 247H, Aspartate Amino Transf (AST/SGOT) 32, Alanine Aminotransferase (ALT/SGPT) 68, Alkaline Phosphatase 165H , Total Creatine Kinase 46, C-Reactive Protein, Quantitative 4.4H, Pro-B-Type Natriuretic Peptide 1097H, Total Protein 7.2, Albumin 2.3L, Globulin 4.9, Albumin/Globulin Ratio 0.5L Current Medications Medications (Trade) Dose Ordered Sig/Felipe Route PRN Reason Start Time Stop Time Status Last Admin Dose Admin Acetaminophen (Tylenol) 650 mg Q4H PRN NG Mild Pain 12/11/17 17:00 01/10/18 16:59 12/12/17 04:23 Acetaminophen (Tylenol) 650 mg Q4H PRN ORAL Fever (temp>100.5F) 12/11/17 17:00 01/03/18 16:59 Allopurinol (Zyloprim) 100 mg DAILY ORAL 12/12/17 09:00 01/04/18 08:59 Ceftriaxone Sodium 1 gm/ Dextrose 50 ml @ 100 mls/hr Q24H IVPB 12/12/17 14:00 12/15/17 23:59 Clotrimazole (Lotrimin) 1 applic THREE TIMES A DAY TOPIC 12/11/17 18:00 01/08/18 08:59 12/11/17 18:17 Dextrose (Dextrose 50%) 25 ml STAT PRN IV Hypoglycemia 12/11/17 17:00 01/10/18 16:59 Dextrose (Dextrose 50%) 50 ml STAT PRN IV Hypoglycemia 12/11/17 17:00 01/10/18 16:59 Diphenhydramine HCl (Benadryl) 12.5 mg Q6H PRN IVP Itching 12/11/17 17:00 01/07/18 16:59 12/12/17 04:23 Fluconazole (Diflucan) 100 mg DAILY ORAL 12/12/17 09:00 12/15/17 23:59 Heparin Sodium (Porcine) (Heparin 5000 units/ml) 5,000 units EVERY 12 HOURS SUBQ 12/11/17 21:00 01/03/18 20:59 12/12/17 00:45 Hydralazine HCl (Apresoline) 10 mg Q4H PRN IV sbp> 160 mmHg 12/11/17 17:30 01/08/18 17:29 Hydralazine HCl (Apresoline) 25 mg Q6HR NG 12/11/17 18:00 01/08/18 15:44 12/12/17 00:31 Hydrocortisone (Solu-CORTEF) 100 mg DAILY IV 12/12/17 09:00 01/07/18 21:59 Insulin Aspart (NovoLOG) EVERY 6 HOURS SUBQ 12/11/17 18:00 01/04/18 11:29 12/12/17 05:50 Metronidazole 100 ml @ 100 mls/hr Q8H IVPB 12/12/17 08:00 12/19/17 07:59 Nitroglycerin (Ntg) 0.4 mg Q5M PRN SL Prn Chest Pain 12/11/17 17:00 01/03/18 16:59 Ondansetron HCl (Zofran) 4 mg Q6H PRN IVP Nausea & Vomiting 12/11/17 17:00 01/03/18 16:59 Pantoprazole (Protonix) 40 mg EVERY 12 HOURS IVP 12/11/17 21:00 01/08/18 20:59 12/12/17 00:32 Potassium Chloride 20 meq/ Sodium Chloride 285 ml @ 142.5 mls/ hr ONCE IVPB 12/12/17 11:00 12/12/17 12:00 Alexx Garibayallyson)Rosibel NP December 12, 2017 10:13
[2017-12-12] MEDS: Hydrocortisone 100mg Inj IV SCH (10:21)
[2017-12-12] MEDS: Fluconazole 100mg tab ORAL SCH (10:22)
[2017-12-12] MEDS: Allopurinol 100mg Tab ORAL SCH (10:22)
[2017-12-12] MEDS ORDERED: Tubing IV Secondary IV ONE ×2 (10:41→11:02)
[2017-12-12] MEDS ORDERED: Albuterol/Ipratropium 3ml neb HHN PRN (11:00)
[2017-12-12] MEDS ORDERED: Potassium Chloride 20 MEQ in NS 275 ML IVPB SCH (11:00)
[2017-12-12] MEDS ORDERED: cefTRIAXone 1 GM in D5W 50 ML IVPB SCH (14:00)
--- NOTE | 2017-12-12 14:24 | Infectious Diseases Prog Note ---
Assessment/Plan Assessment/Plan ASSESSMENT AND PLAN: 1. sepsis, leukocytosis, fevers, ? mrsa pna/uri, ? aspiration pna, possible diphtheroids bacteremia, vent, elevated co2, ams, arf, respiratory failure, edema, ? fungal uti, sig + ua - zyvox, ceftriaxone and flagyl x 1 day for 10 treatment course - diflucan x 1 day - f/u labs and chest x-ray - surveillance cultures negative - continue vent support - s/p tracheostomy - leukocytosis and fevers resolved - echo - no vegetations mentioned - on steroids - weaning protocol - getting HD per d/w RN 2. Respiratory failure, on vent, no pressors - treatment per primary and pulmonary 3. Vargas. 4. The patient has history of hypertension. 5. Diabetes. 6. Hyperlipidemia. 7. Blood sugar and blood pressure treatment per primary. 8. History of asthma. 9. History of myocardial infarction and coronary artery disease. 10. History of heart failure/congestive heart failure. 11. History of gout. 12. History of sepsis and pneumonia. 13. History of muscle weakness. 14. Gastroesophageal reflux disease. 15. Past orders were noted. 16. Allergies are negative. 17. Family History is noncontributory. 18. Social history is negative. 19. MAR was noted. 20. Case discussed with RN. 21. Continue treatment per primary and consultants. 22. Case discussed with Dr. Matthews. 23. Case discussed with RN in the ICU. 24. Orders were noted and entered. 25. Notes and records were noted. 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 Subjective Constitutional: Reports: fever, other - on cpap, respiratory status stable HEENT: Denies: congestion Respiratory: Denies: shortness of breath Cardiovascular: Denies: chest pain Gastrointestinal/Abdominal: Denies: nausea, vomiting, diarrhea Genitourinary: Reports: other - + vargas Neurologic: Denies: headache Psychiatric: Denies: depression Skin: Denies: rash Hematologic: Denies: bleeding Musculoskeletal: Denies: pain Allergies: Coded Allergies: ASPARTAME (Verified Allergy, Unknown, 11/30/17) Headache Objective Vital Signs Last 24 Hour Vital Signs Date Time Temp Pulse Resp B/P (MAP) Pulse Ox O2 Delivery O2 Flow Rate FiO2 12/12/17 13:02 58 28 30 12/12/17 12:00 97.9 51 24 133/52 99 Mechanical Ventilator 30 97.9 12/12/17 12:00 51 12/12/17 12:00 30 12/12/17 11:51 120/69 12/12/17 11:00 56 21 30 12/12/17 11:00 97 12/12/17 11:00 30 12/12/17 08:54 66 15 30 12/12/17 08:00 40 12/12/17 08:00 30 12/12/17 08:00 97.7 48 14 120/59 99 Mechanical Ventilator 30 97.7 12/12/17 07:51 41 19 30 12/12/17 05:47 147/63 12/12/17 04:55 60 24 30 12/12/17 04:00 98.0 53 14 147/63 99 Mechanical Ventilator 30 98.0 12/12/17 04:00 30 12/12/17 04:00 48 12/12/17 03:30 62 16 30 12/12/17 01:30 60 15 30 12/12/17 00:37 Mechanical Ventilator 30 12/12/17 00:34 98.4 45 16 151/78 Mechanical Ventilator 30 98.4 12/12/17 00:31 151/78 12/12/17 00:00 98.4 95 16 151/78 98 Mechanical Ventilator 30 98.4 12/12/17 00:00 47 12/12/17 00:00 30 12/11/17 23:24 61 21 30 12/11/17 21:30 62 20 30 12/11/17 20:30 Mechanical Ventilator 30 12/11/17 20:30 98.0 49 16 175/83 Endotracheal Tube 30 98.0 12/11/17 20:00 99.0 58 17 112/58 99 Mechanical Ventilator 30 99.0 12/11/17 20:00 56 12/11/17 20:00 40 12/11/17 19:30 60 17 30 12/11/17 18:42 98.1 12/11/17 18:12 98.1 12/11/17 18:11 148/61 12/11/17 16:53 98.1 54 27 148/61 98 Mechanical Ventilator 30 98.1 12/11/17 16:43 54 23 40 12/11/17 16:00 50 12/11/17 16:00 48 20 144/50 99 Mechanical Ventilator 40 12/11/17 16:00 40 12/11/17 15:10 46 28 40 12/11/17 15:00 50 20 148/54 99 Mechanical Ventilator 40 12/11/17 14:26 154/54 Height (Feet): 5 Height (Inches): 8.00 Weight (Pounds): 461 General Appearance: no acute distress HEENT: normocephalic, atraumatic, anicteric, mucous membranes moist, status post trach Respiratory/Chest: lungs clear, normal breath sounds, no respiratory distress, no accessory muscle use Cardiovascular: normal rate, regular rhythm, no gallop/murmur, no JVD Abdomen: normal bowel sounds, soft, non tender, no organomegaly, non distended Genitourinary: other - + vargas - good uo per RN Extremities: no cyanosis Skin: no rash, no ulcers 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 The heart is enlarged. Lungs and pleural spaces are clear. Impression: Satisfactory endotracheal intubation Other findings as noted Chest x-ray - 12/06 - A single view chest radiograph was obtained. Findings: Endotracheal tube and nasogastric tubes are in good position unchanged. Lung volumes remain low. Lungs are essentially clear. Heart is enlarged. Bones are unremarkable. IMPRESSION: No acute findings Chest x-ray - 12/08 - IMPRESSION: Right jugular Dillan catheter in good position. No pneumothorax. Mild interstitial edema suspected. 12/10 - chest x-ray - negative (noted) Microbiology Date/Time Source Procedure Growth Status 12/08/17 13:10 Blood Blood Culture - Preliminary NO GROWTH AFTER 72 HOURS Resulted 12/10/17 22:00 Sputum Gram Stain - Final Resulted 12/10/17 22:00 Sputum Sputum Culture Pending Resulted 12/06/17 12:40 Urine,Clean Catch Urine Culture - Final Tamia Tropicalis Tamia Albicans Complete 12/04/17 08:30 Rectum VRE Culture - Final Enterococcus Faecium - Vre Complete Microbiology Date/Time Source Procedure Growth Status 12/10/17 22:00 Sputum Gram Stain - Final Resulted 12/10/17 22:00 Sputum Sputum Culture Pending Resulted Laboratory Tests Test 12/12/17 04:05 White Blood Count 9.6 K/UL (4.8-10.8) Red Blood Count 3.63 M/UL (4.20-5.40) L Hemoglobin 10.8 G/DL (12.0-16.0) L Hematocrit 33.7 % (37.0-47.0) L Mean Corpuscular Volume 93 FL (80-99) Mean Corpuscular Hemoglobin 29.7 PG (27.0-31.0) Mean Corpuscular Hemoglobin Concent 31.9 G/DL (32.0-36.0) L Red Cell Distribution Width 15.3 % (11.6-14.8) H Platelet Count 241 K/UL (150-450) Mean Platelet Volume 6.7 FL (6.5-10.1) Neutrophils (%) (Auto) 47.1 % (45.0-75.0) Lymphocytes (%) (Auto) 37.5 % (20.0-45.0) Monocytes (%) (Auto) 14.2 % (1.0-10.0) H Eosinophils (%) (Auto) 0.3 % (0.0-3.0) Basophils (%) (Auto) 0.8 % (0.0-2.0) Sodium Level 138 MMOL/L (136-145) Potassium Level 3.0 MMOL/L (3.5-5.1) L Chloride Level 98 MMOL/L (98-107) Carbon Dioxide Level 33 MMOL/L (21-32) H Anion Gap 7 mmol/L (5-15) Blood Urea Nitrogen 32 mg/dL (7-18) H Creatinine 3.8 MG/DL (0.55-1.30) H Estimat Glomerular Filtration Rate 14.8 mL/min (>60) Glucose Level 140 MG/DL (74-106) H Uric Acid 5.4 MG/DL (2.6-7.2) Calcium Level 8.5 MG/DL (8.5-10.1) Phosphorus Level 3.2 MG/DL (2.5-4.9) Magnesium Level 1.7 MG/DL (1.8-2.4) L Total Bilirubin 0.6 MG/DL (0.2-1.0) Gamma Glutamyl Transpeptidase 247 U/L (5-85) H Aspartate Amino Transf (AST/SGOT) 32 U/L (15-37) Alanine Aminotransferase (ALT/SGPT) 68 U/L (12-78) Alkaline Phosphatase 165 U/L (46-116) H Total Creatine Kinase 46 U/L (26-308) C-Reactive Protein, Quantitative 4.4 mg/dL (0.00-0.90) H Pro-B-Type Natriuretic Peptide 1097 pg/mL (0-125) H Total Protein 7.2 G/DL (6.4-8.2) Albumin 2.3 G/DL (3.4-5.0) L Globulin 4.9 g/dL Albumin/Globulin Ratio 0.5 (1.0-2.7) L Current Medications Medications (Trade) Dose Ordered Sig/Felipe Route PRN Reason Start Time Stop Time Status Last Admin Dose Admin Acetaminophen (Tylenol) 650 mg Q4H PRN NG Mild Pain 12/11/17 17:00 01/10/18 16:59 12/12/17 04:23 Acetaminophen (Tylenol) 650 mg Q4H PRN ORAL Fever (temp>100.5F) 12/11/17 17:00 01/03/18 16:59 Albuterol/ Ipratropium (Albuterol/ Ipratropium) 3 ml Q4H PRN HHN sob 12/12/17 11:00 12/17/17 10:59 Allopurinol (Zyloprim) 100 mg DAILY ORAL 12/12/17 09:00 01/04/18 08:59 12/12/17 10:22 Ceftriaxone Sodium 1 gm/ Dextrose 50 ml @ 100 mls/hr Q24H IVPB 12/12/17 14:00 12/15/17 23:59 Clotrimazole (Lotrimin) 1 applic THREE TIMES A DAY TOPIC 12/11/17 18:00 01/08/18 08:59 12/12/17 13:30 Dextrose (Dextrose 50%) 25 ml STAT PRN IV Hypoglycemia 12/11/17 17:00 01/10/18 16:59 Dextrose (Dextrose 50%) 50 ml STAT PRN IV Hypoglycemia 12/11/17 17:00 01/10/18 16:59 Diphenhydramine HCl (Benadryl) 12.5 mg Q6H PRN IVP Itching 12/11/17 17:00 01/07/18 16:59 12/12/17 04:23 Fluconazole (Diflucan) 100 mg DAILY ORAL 12/12/17 09:00 12/15/17 23:59 12/12/17 10:22 Heparin Sodium (Porcine) (Heparin 5000 units/ml) 5,000 units EVERY 12 HOURS SUBQ 12/11/17 21:00 01/03/18 20:59 12/12/17 10:44 Hydralazine HCl (Apresoline) 10 mg Q4H PRN IV sbp> 160 mmHg 12/11/17 17:30 01/08/18 17:29 Hydralazine HCl (Apresoline) 25 mg Q6HR NG 12/11/17 18:00 01/08/18 15:44 12/12/17 11:51 Hydrocortisone (Solu-CORTEF) 100 mg DAILY IV 12/12/17 09:00 01/07/18 21:59 12/12/17 10:21 Insulin Aspart (NovoLOG) EVERY 6 HOURS SUBQ 12/11/17 18:00 01/04/18 11:29 12/12/17 13:58 Metronidazole 100 ml @ 100 mls/hr Q8H IVPB 12/12/17 08:00 12/19/17 07:59 12/12/17 10:30 Nitroglycerin (Ntg) 0.4 mg Q5M PRN SL Prn Chest Pain 12/11/17 17:00 01/03/18 16:59 Ondansetron HCl (Zofran) 4 mg Q6H PRN IVP Nausea & Vomiting 12/11/17 17:00 01/03/18 16:59 Pantoprazole (Protonix) 40 mg EVERY 12 HOURS IVP 12/11/17 21:00 01/08/18 20:59 12/12/17 10:21 JUNI ABDUL December 12, 2017 14:24
--- NOTE | 2017-12-12 14:55 | General Progress Note ---
Progress Note Progress Note Surgery: no acute events. looks great. awake, talkative. trach clean and functional. s/p trach recovering passed swallow eval -diet -wean vent thank you. Stvean Romero December 12, 2017 14:55
--- NOTE | 2017-12-12 16:02 | General Progress Note ---
Assessment/Plan Problem List: (1) UTI (urinary tract infection) ICD Codes: N39.0 - Urinary tract infection, site not specified SNOMED: 62498284 Qualifiers: Qualified Codes: N39.0 - Urinary tract infection, site not specified (2) Morbid obesity ICD Codes: E66.01 - Morbid (severe) obesity due to excess calories SNOMED: 832680746, 87474651703983 (3) Fatty liver ICD Codes: K76.0 - Fatty (change of) liver, not elsewhere classified SNOMED: 650119627 (4) Acute respiratory failure with hypoxia and hypercapnia ICD Codes: J96.01 - Acute respiratory failure with hypoxia; J96.02 - Acute respiratory failure with hypercapnia SNOMED: 14660781, 04256079, 111739393 (5) GERD (gastroesophageal reflux disease) ICD Codes: K21.9 - Gastro-esophageal reflux disease without esophagitis SNOMED: 054771789 (6) Asthma ICD Codes: J45.909 - Unspecified asthma, uncomplicated SNOMED: 912715275 (7) HTN (hypertension) ICD Codes: I10 - Essential (primary) hypertension SNOMED: 77467011 (8) Hepatitis B core antibody positive ICD Codes: R76.8 - Other specified abnormal immunological findings in serum SNOMED: 291567497 (9) DM2 (diabetes mellitus, type 2) ICD Codes: E11.9 - Type 2 diabetes mellitus without complications SNOMED: 52472477 (10) Likely obesity hypoventilation syndrome (11) lives at snf (12) Severe sepsis ICD Codes: A41.9 - Sepsis, unspecified organism; R65.20 - Severe sepsis without septic shock SNOMED: 88040224 (13) Elevated liver enzymes ICD Codes: R74.8 - Abnormal levels of other serum enzymes SNOMED: 028831876 (14) Acute toxic metabolic encephalopathy (15) Aspiration pnemonia vs HCAP (16) KASHIF (acute kidney injury) ICD Codes: N17.9 - Acute kidney failure, unspecified SNOMED: 08231125 (17) ATN (acute tubular necrosis) ICD Codes: N17.0 - Acute kidney failure with tubular necrosis SNOMED: 95852992 (18) Acute on chronic diastolic (congestive) heart failure ICD Codes: I50.33 - Acute on chronic diastolic (congestive) heart failure SNOMED: 63992970, 079356337 (19) Bacteremia ICD Codes: R78.81 - Bacteremia SNOMED: 2825126 (20) Septic shock ICD Codes: A41.9 - Sepsis, unspecified organism; R65.21 - Severe sepsis with septic shock SNOMED: 56081206 (21) Hypokalemia ICD Codes: E87.6 - Hypokalemia SNOMED: 32804156 (22) Multiple organ failure SNOMED: 16524492 (23) HCAP 2/2 MRSA (24) Elevated troponin I level ICD Codes: R74.8 - Abnormal levels of other serum enzymes SNOMED: 282475918 (25) Acute renal failure (ARF) ICD Codes: N17.9 - Acute kidney failure, unspecified SNOMED: 00556208 (26) Shock liver ICD Codes: K72.00 - Acute and subacute hepatic failure without coma SNOMED: 017557691 (27) Lactic acid acidosis ICD Codes: E87.2 - Acidosis SNOMED: 16330065 (28) Anemia ICD Codes: D64.9 - Anemia, unspecified SNOMED: 180595159 Status: progressing Assessment/Plan Cont ICU/YESI care Pulm/critical care consulted Cont on vent and wean as tolerated Daily SBTs, sedation holidays This is pt's 3rd intubation in less than 6 months. D/w pulm re likely plan for tracheostomy. D/w pt and son. Surgery consulted s/p tracheostomy on 12/10/17 Currently not requiring pressors. Goal MAP 65 and above Cardiology consulted given bradycardia. Likely 2/2 midodrine Hold midodrine Taper off steroids ID consulted Empiric linezolid, cefepime and flagyl per ID; zosyn d/c'd given KASHIF; vanco d/c' d given KASHIF Continue fluconazole given fungal UTI F/u cultures Nephrology consulted given KASHIF HD line placed and started on HD on 12/07/17. Cont HD per renal. Last HD 12/11 Strict I/O's Trend CBC, CMP [employer] eval ordered CLD for now Pain control, bowel regimen Supportive care PPI CM consulted for d/c plan to subacute facility vs LTACH such as [place] DVT Prophylaxis: SCD, HSQ Code Status: Full Hospital Classification Declaration: Based on this initial evaluation, and depending on the patient's clinical course, I anticipate that this patient will require hospitalization for 3-4 days for acute respiratory failure, sepsis and close respiratory/hemodynamic monitoring. Disposition: Once the patient is stable to leave the hospital, I anticipate the patient will likely be discharged to the following environment: subacute SNF vs LTACH On the above date of service, I spent a total of 31 minutes in the ICU/YESI evaluating, managing, and providing critical care services to this patient, including time spent documenting these activities, counseling patient/family, and coordinating care. Critical care services performed include: Telemetry Review Hemodynamic measurement interpretation Laboratory data review and interpretation Ventilator setting review, management, and adjustment Discussion of care plans with patient, family, and/or surrogate decision makers Discussion of patient's care with primary medical team, surgical team, and/or consulting service Decision to obtain further radiologic evaluation, after consideration of risk/ benefit ratio Decision to perform invasive procedure, after consideration of risk/benefit ratio Review of most recent microbiology results with assessment and modification of antimicrobial coverage Discussion of patient's code status and further advancement towards the ultimate goals of care Plan outlined above discussed with patient/family, pulm/critical care, ID regarding mgmt and dispo. D/w pulm re plan for trach. D/w ID re broad-spectrum abx. D/w renal re rising SCr, plan for HD. D/w surgery re tracheostomy Time of note may not reflect time of encounter. Subjective Date patient seen: December 12, 2017 Time patient seen: 15:55 Allergies: Coded Allergies: ASPARTAME (Verified Allergy, Unknown, 11/30/17) Headache Subjective - tolerating weaning, now on CPAP - HR in the 60-70s today but was in the 40s in the AM - awake and responsive Objective Last 24 Hour Vital Signs Date Time Temp Pulse Resp B/P (MAP) Pulse Ox O2 Delivery O2 Flow Rate FiO2 12/12/17 14:45 74 28 30 12/12/17 13:02 58 28 30 12/12/17 12:00 97.9 51 24 133/52 99 Mechanical Ventilator 30 97.9 12/12/17 12:00 51 12/12/17 12:00 30 12/12/17 11:51 120/69 12/12/17 11:00 56 21 30 12/12/17 11:00 97 12/12/17 11:00 30 12/12/17 08:54 66 15 30 12/12/17 08:00 40 12/12/17 08:00 30 12/12/17 08:00 97.7 48 14 120/59 99 Mechanical Ventilator 30 97.7 12/12/17 07:51 41 19 30 12/12/17 05:47 147/63 12/12/17 04:55 60 24 30 12/12/17 04:00 98.0 53 14 147/63 99 Mechanical Ventilator 30 98.0 12/12/17 04:00 30 12/12/17 04:00 48 12/12/17 03:30 62 16 30 12/12/17 01:30 60 15 30 12/12/17 00:37 Mechanical Ventilator 30 12/12/17 00:34 98.4 45 16 151/78 Mechanical Ventilator 30 98.4 12/12/17 00:31 151/78 12/12/17 00:00 98.4 95 16 151/78 98 Mechanical Ventilator 30 98.4 12/12/17 00:00 47 12/12/17 00:00 30 12/11/17 23:24 61 21 30 12/11/17 21:30 62 20 30 12/11/17 20:30 Mechanical Ventilator 30 12/11/17 20:30 98.0 49 16 175/83 Endotracheal Tube 30 98.0 12/11/17 20:00 99.0 58 17 112/58 99 Mechanical Ventilator 30 99.0 12/11/17 20:00 56 12/11/17 20:00 40 12/11/17 19:30 60 17 30 12/11/17 18:42 98.1 12/11/17 18:12 98.1 12/11/17 18:11 148/61 12/11/17 16:53 98.1 54 27 148/61 98 Mechanical Ventilator 30 98.1 12/11/17 16:43 54 23 40 12/11/17 16:00 50 12/11/17 16:00 48 20 144/50 99 Mechanical Ventilator 40 12/11/17 16:00 40 Intake and Output 12/11/17 12/12/17 19:00 07:00 Intake Total 690 ml 100 ml Output Total 510 ml 4050 ml Balance 180 ml -3950 ml Intake Oral 240 ml IV Total 450 ml 100 ml Output Urine Total 510 ml 1000 ml Hemodialysis UF 3050 ml # Bowel Movements 4 Laboratory Tests 12/12/17 04:05: White Blood Count 9.6, Red Blood Count 3.63L, Hemoglobin 10.8L, Hematocrit 33.7L , Mean Corpuscular Volume 93, Mean Corpuscular Hemoglobin 29.7, Mean Corpuscular Hemoglobin Concent 31.9L, Red Cell Distribution Width 15.3H, Platelet Count 241, Mean Platelet Volume 6.7, Neutrophils (%) (Auto) 47.1, Lymphocytes (%) (Auto) 37.5, Monocytes (%) (Auto) 14.2H, Eosinophils (%) (Auto) 0.3, Basophils (%) (Auto) 0.8, Sodium Level 138, Potassium Level 3.0L, Chloride Level 98, Carbon Dioxide Level 33H, Anion Gap 7, Blood Urea Nitrogen 32H, Creatinine 3.8H, Estimat Glomerular Filtration Rate 14.8, Glucose Level 140H, Uric Acid 5.4, Calcium Level 8.5, Phosphorus Level 3.2, Magnesium Level 1.7L, Total Bilirubin 0.6, Gamma Glutamyl Transpeptidase 247H, Aspartate Amino Transf (AST/SGOT) 32, Alanine Aminotransferase (ALT/SGPT) 68, Alkaline Phosphatase 165H , Total Creatine Kinase 46, C-Reactive Protein, Quantitative 4.4H, Pro-B-Type Natriuretic Peptide 1097H, Total Protein 7.2, Albumin 2.3L, Globulin 4.9, Albumin/Globulin Ratio 0.5L 12/12/17 14:00: Arterial Blood pH 7.513H, Arterial Blood Partial Pressure CO2 45.1H, Arterial Blood Partial Pressure O2 115.7H, Arterial Blood HCO3 35.4H, Arterial Blood Oxygen Saturation 98.1H, Arterial Blood Base Excess 11.2, Doroteo Test Positive Height (Feet): 5 Height (Inches): 8.00 Weight (Pounds): 461 General Appearance: alert EENT: PERRL/EOMI, normal ENT inspection Neck: other - +tracheostomy Cardiovascular: bradycardia Respiratory/Chest: chest wall non-tender, lungs clear, normal breath sounds Abdomen: normal bowel sounds, non tender, soft Extremities: normal range of motion, non-tender Edema: mild edema 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 December 12, 2017 16:02
--- NOTE | 2017-12-12 16:31 | Cardiac Electrophysiology PN ---
Assessment/Plan Assessment/Plan 1. Sinus bradycardia with no evidence of heart block. Still savannah even off midodrine. Watch the patient on telemetry. Asymptomatic. Hold off on permanent pacer 2. Respiratory failure with hypoxemia and hypercapnia. S/P tracheostomy 3. Hypertension, on hydralazine. 4. Morbid obesity. 5. History of supraventricular tachycardia. 6. Elevated liver enzymes. 7. Renal failure. 8. Passed swallow eval ROLLY RN Subjective Subjective On CPAP via tracheostomy. Alert in NAD.Still savannah.Eating now. Objective Last 24 Hour Vital Signs Date Time Temp Pulse Resp B/P (MAP) Pulse Ox O2 Delivery O2 Flow Rate FiO2 12/12/17 16:04 67 12/12/17 16:00 30 12/12/17 16:00 97.6 64 28 119/60 95 Mechanical Ventilator 30 97.6 12/12/17 14:45 74 28 30 12/12/17 13:02 58 28 30 12/12/17 13:00 30 12/12/17 12:00 97.9 51 24 133/52 99 Mechanical Ventilator 30 97.9 12/12/17 12:00 51 12/12/17 12:00 30 12/12/17 11:51 120/69 12/12/17 11:00 56 21 30 12/12/17 11:00 97 12/12/17 11:00 30 12/12/17 08:54 66 15 30 12/12/17 08:00 40 12/12/17 08:00 30 12/12/17 08:00 97.7 48 14 120/59 99 Mechanical Ventilator 30 97.7 12/12/17 07:51 41 19 30 12/12/17 05:47 147/63 12/12/17 04:55 60 24 30 12/12/17 04:00 98.0 53 14 147/63 99 Mechanical Ventilator 30 98.0 12/12/17 04:00 30 12/12/17 04:00 48 12/12/17 03:30 62 16 30 12/12/17 01:30 60 15 30 12/12/17 00:37 Mechanical Ventilator 30 12/12/17 00:34 98.4 45 16 151/78 Mechanical Ventilator 30 98.4 12/12/17 00:31 151/78 12/12/17 00:00 98.4 95 16 151/78 98 Mechanical Ventilator 30 98.4 5/5/18 00:00 47 12/12/17 00:00 30 12/11/17 23:24 61 21 30 12/11/17 21:30 62 20 30 12/11/17 20:30 Mechanical Ventilator 30 12/11/17 20:30 98.0 49 16 175/83 Endotracheal Tube 30 98.0 12/11/17 20:00 99.0 58 17 112/58 99 Mechanical Ventilator 30 99.0 12/11/17 20:00 56 12/11/17 20:00 40 12/11/17 19:30 60 17 30 12/11/17 18:42 98.1 12/11/17 18:12 98.1 12/11/17 18:11 148/61 12/11/17 16:53 98.1 54 27 148/61 98 Mechanical Ventilator 30 98.1 12/11/17 16:43 54 23 40 Intake and Output 12/11/17 12/12/17 19:00 07:00 Intake Total 690 ml 100 ml Output Total 510 ml 4050 ml Balance 180 ml -3950 ml Intake Oral 240 ml IV Total 450 ml 100 ml Output Urine Total 510 ml 1000 ml Hemodialysis UF 3050 ml # Bowel Movements 4 Laboratory Tests Test 12/12/17 04:05 12/12/17 14:00 White Blood Count 9.6 K/UL (4.8-10.8) Red Blood Count 3.63 M/UL (4.20-5.40) L Hemoglobin 10.8 G/DL (12.0-16.0) L Hematocrit 33.7 % (37.0-47.0) L Mean Corpuscular Volume 93 FL (80-99) Mean Corpuscular Hemoglobin 29.7 PG (27.0-31.0) Mean Corpuscular Hemoglobin Concent 31.9 G/DL (32.0-36.0) L Red Cell Distribution Width 15.3 % (11.6-14.8) H Platelet Count 241 K/UL (150-450) Mean Platelet Volume 6.7 FL (6.5-10.1) Neutrophils (%) (Auto) 47.1 % (45.0-75.0) Lymphocytes (%) (Auto) 37.5 % (20.0-45.0) Monocytes (%) (Auto) 14.2 % (1.0-10.0) H Eosinophils (%) (Auto) 0.3 % (0.0-3.0) Basophils (%) (Auto) 0.8 % (0.0-2.0) Sodium Level 138 MMOL/L (136-145) Potassium Level 3.0 MMOL/L (3.5-5.1) L Chloride Level 98 MMOL/L (98-107) Carbon Dioxide Level 33 MMOL/L (21-32) H Anion Gap 7 mmol/L (5-15) Blood Urea Nitrogen 32 mg/dL (7-18) H Creatinine 3.8 MG/DL (0.55-1.30) H Estimat Glomerular Filtration Rate 14.8 mL/min (>60) Glucose Level 140 MG/DL (74-106) H Uric Acid 5.4 MG/DL (2.6-7.2) Calcium Level 8.5 MG/DL (8.5-10.1) Phosphorus Level 3.2 MG/DL (2.5-4.9) Magnesium Level 1.7 MG/DL (1.8-2.4) L Total Bilirubin 0.6 MG/DL (0.2-1.0) Gamma Glutamyl Transpeptidase 247 U/L (5-85) H Aspartate Amino Transf (AST/SGOT) 32 U/L (15-37) Alanine Aminotransferase (ALT/SGPT) 68 U/L (12-78) Alkaline Phosphatase 165 U/L (46-116) H Total Creatine Kinase 46 U/L (26-308) C-Reactive Protein, Quantitative 4.4 mg/dL (0.00-0.90) H Pro-B-Type Natriuretic Peptide 1097 pg/mL (0-125) H Total Protein 7.2 G/DL (6.4-8.2) Albumin 2.3 G/DL (3.4-5.0) L Globulin 4.9 g/dL Albumin/Globulin Ratio 0.5 (1.0-2.7) L Arterial Blood pH 7.513 (7.350-7.450) Arterial Blood Partial Pressure CO2 45.1 mmHg (35.0-45.0) H Arterial Blood Partial Pressure O2 115.7 mmHg (75.0-100.0) H Arterial Blood HCO3 35.4 mmol/L (22.0-26.0) H Arterial Blood Oxygen Saturation 98.1 % (92.0-98.0) H Arterial Blood Base Excess 11.2 Doroteo Test Positive Microbiology Date/Time Source Procedure Growth Status 12/10/17 22:00 Sputum Gram Stain - Final Resulted 12/10/17 22:00 Sputum Sputum Culture Pending Resulted Objective HEAD AND NECK: No JVD. S/P Tracheostomy LUNGS: Coarse rhonchi. CARDIOVASCULAR: Bradycardic. S1 and S2 with no gallop. ABDOMEN: Morbidly obese. EXTREMITIES: 1+ pitting edema. Melvin Bejarano MD December 12, 2017 16:31
[2017-12-13] VITALS: BP_SYST 140; BP_SYST 81; BP_DIAS 59; BP_DIAS 68
[2017-12-13] MEDS: NovoLOG Insulin Flexpen SUBQ SCH ×4 (00:01→17:17)
[2017-12-13 04:00] VITALS: BP 148/68
[2017-12-13 05:30] LABS: EOSINOPHILS % (AUTO) 0.4 % (0.0-3.0); HEMATOCRIT 35.3 % (37.0-47.0); HEMOGLOBIN 10.9 G/DL (12.0-16.0); LYMPHOCYTES % (AUTO) 42.7 % (20.0-45.0); MEAN CORPUSCULAR VOLUME 94 FL (80-99); MONOCYTES % (AUTO) 11.3 % (1.0-10.0); NEUTROPHILS % (AUTO) 44.6 % (45.0-75.0); PLATELET COUNT 275 K/UL (150-450); RED BLOOD COUNT 3.76 M/UL (4.20-5.40); RED CELL DISTRIBUTION WIDTH 15.4 % (11.6-14.8); WHITE BLOOD COUNT 10.1 K/UL (4.8-10.8)
[2017-12-13] MEDS: HydrALAZINE 25mg tab NG SCH ×2 (05:49)
[2017-12-13 06:04] LABS: ALANINE AMINOTRANSFERASE 64 U/L (12-78); ALBUMIN 2.6 G/DL (3.4-5.0); ALBUMIN/GLOBULIN RATIO 0.5 (1.0-2.7); ALKALINE PHOSPHATASE 166 U/L (46-116); ANION GAP 8 mmol/L (5-15); ASPARTATE AMINO TRANSFERASE 33 U/L (15-37); BILIRUBIN,TOTAL 0.5 MG/DL (0.2-1.0); BLOOD UREA NITROGEN 41 mg/dL (7-18); CALCIUM 8.9 MG/DL (8.5-10.1); CARBON DIOXIDE 33 MMOL/L (21-32); CHLORIDE 100 MMOL/L (98-107); CREATININE 3.6 MG/DL (0.55-1.30); PHOSPHORUS 4.8 MG/DL (2.5-4.9); POTASSIUM 3.3 MMOL/L (3.5-5.1); SODIUM 141 MMOL/L (136-145)
[2017-12-13 08:00] VITALS: BP 124/58
[2017-12-13] MEDS: Fluconazole 100mg tab ORAL SCH (09:24)
[2017-12-13] MEDS: Pantoprazole Inj IVP SCH ×2 (09:24→20:55)
[2017-12-13] MEDS: Hydrocortisone 100mg Inj IV SCH (09:24)
[2017-12-13] MEDS: Heparin 5000 units/ml inj SUBQ SCH ×2 (09:28→20:57)
[2017-12-13] MEDS: Allopurinol 100mg Tab ORAL SCH (09:31)
--- NOTE | 2017-12-13 10:27 | Pulmonology Progress Note ---
Assessment/Plan Assessment/Plan ASSESSMENT Acute hypoxemic hypercapnic respiratory failure requiring intubation Failure to wean Status post tracheostomy 12/10/17 Acute toxic metabolic encephalopathy-resolved ( likely due to severe sepsis, ARF) Severe sepsis Acute renal failure, requiring hemodialysis/acute tubular necrosis MRSA pneumonia Fungal UTI Likely obesity hypoventilation syndrome Transaminitis-resolved Hypertension Sinus bradycardia Morbid obesity Chronic diastolic heart failure COPD Diabetes mellitus PLAN OF CARE YESI 3 intubation in 3 months , family and patient agreed with a tracheostomy status post tracheostomy 12/10/17 surgery closely follows vent support , tracheostomy care pulmonary toilet follow-up with a chest x-ray Passe Dimple eval done and trials started passed swallow eval diet as per ST recs with strict aspiration/reflux precautions VSS on Thursday on Thursday start trial on weaning to trach collar as tolerated antibiotic ID follows sputum culture MRSA, another preliminary negative; urine culture + Tamia, initial blood cultures + Diphtheroids, surveillance blood culture negative, likely contaminant leukocytosis resolved, afebrile Echocardiogram no evidence of vegetation. Patient required hemodialysis status post placement right jugular hemodialysis catheter 12/07 loop tacker follows hemodialysis as per loop tacker with close monitoring of renal parameters and electrolytes started on hydrocortisone avoid nephrotoxic Sap Bobj Developer follows ECHO with pEF 55-60% blood pressure management with hydralazine Sinus bradycardia no evidence of heart block on , off midodrine but heart rate remains in 40s patient asymptomatic, per cardio hold off on pacemaker placement Pain management Bowel regimen DVT GI prophylaxis blood sugar management with sliding scale insulin LFT down to normal case discussed and evaluated by supervising physician Subjective Allergies: Coded Allergies: ASPARTAME (Verified Allergy, Unknown, 11/30/17) Headache Subjective no signs of resp distress on current settings, passed swallow eval and started on trial of Passe Letcher valve Objective Last 24 Hour Vital Signs Date Time Temp Pulse Resp B/P (MAP) Pulse Ox O2 Delivery O2 Flow Rate FiO2 12/13/17 09:15 99 12/13/17 09:15 54 20 30 12/13/17 06:41 52 20 30 12/13/17 05:49 148/68 12/13/17 05:33 51 22 30 12/13/17 04:00 30 12/13/17 04:00 98.4 48 30 148/68 97 Mechanical Ventilator 30 98.4 12/13/17 02:57 51 22 30 12/13/17 00:42 46 22 30 5/6/18 00:19 46 12/13/17 00:00 98.8 52 30 140/68 98 Mechanical Ventilator 30 98.8 12/13/17 00:00 95/45 12/12/17 23:07 51 30 30 12/12/17 21:19 51 30 30 12/12/17 20:00 98.2 77 29 95/45 98 Mechanical Ventilator 30 98.2 12/12/17 20:00 30 12/12/17 20:00 76 12/12/17 19:44 51 30 30 12/12/17 18:31 119/60 12/12/17 16:48 51 30 30 12/12/17 16:04 67 12/12/17 16:00 30 12/12/17 16:00 97.6 64 28 119/60 95 Mechanical Ventilator 30 97.6 12/12/17 14:45 74 28 30 12/12/17 13:02 58 28 30 12/12/17 13:00 30 12/12/17 12:00 97.9 51 24 133/52 99 Mechanical Ventilator 30 97.9 12/12/17 12:00 51 12/12/17 12:00 30 12/12/17 11:51 120/69 12/12/17 11:00 56 21 30 12/12/17 11:00 97 12/12/17 11:00 30 Intake and Output 12/12/17 12/13/17 19:00 07:00 Intake Total 1285.0 ml Output Total 550 ml Balance 735.0 ml Intake Oral 400 ml IV Total 885.0 ml Output Urine Total 550 ml # Bowel Movements 3 1 Objective General Appearance: no acute distress, awake, alert, morbidly obese AA female on vent AC 600-14-30% HEENT: normocephalic, atraumatic, anicteric, status post trach - Shiley #8, secretions small, pink , thin Respiratory/Chest: lungs clear, no respiratory distress Cardiovascular: normal peripheral pulses, regular rhythm, no JVD, bradycardia - SB on tele in 40th Abdomen: normal bowel sounds, soft, non tender - obese Extremities: pedal pulses normal, trace edema BLE Neurologic/Psychiatric: abnormal gait, alert, responsive Microbiology Date/Time Source Procedure Growth Status 12/10/17 22:00 Sputum Gram Stain - Final Resulted 12/10/17 22:00 Sputum Sputum Culture - Preliminary NO GROWTH AFTER 24 HOURS Resulted Laboratory Tests 12/12/17 14:00: Arterial Blood pH 7.513H, Arterial Blood Partial Pressure CO2 45.1H, Arterial Blood Partial Pressure O2 115.7H, Arterial Blood HCO3 35.4H, Arterial Blood Oxygen Saturation 98.1H, Arterial Blood Base Excess 11.2, Doroteo Test Positive 12/13/17 03:50: White Blood Count 10.1, Red Blood Count 3.76L, Hemoglobin 10.9L, Hematocrit 35.3L, Mean Corpuscular Volume 94, Mean Corpuscular Hemoglobin 29.0, Mean Corpuscular Hemoglobin Concent 30.9L, Red Cell Distribution Width 15.4H, Platelet Count 275, Mean Platelet Volume 6.8, Neutrophils (%) (Auto) 44.6L, Lymphocytes (%) (Auto) 42.7, Monocytes (%) (Auto) 11.3H, Eosinophils (%) (Auto) 0.4, Basophils (%) (Auto) 1.0, Sodium Level 141, Potassium Level 3.3L, Chloride Level 100, Carbon Dioxide Level 33H, Anion Gap 8, Blood Urea Nitrogen 41H, Creatinine 3.6H, Estimat Glomerular Filtration Rate 15.6, Glucose Level 146H, Uric Acid 6.4, Calcium Level 8.9, Phosphorus Level 4.8, Magnesium Level 1.8, Total Bilirubin 0.5, Aspartate Amino Transf (AST/SGOT) 33, Alanine Aminotransferase (ALT/SGPT) 64, Alkaline Phosphatase 166H, Pro-B-Type Natriuretic Peptide 797H, Total Protein 7.6, Albumin 2.6L, Globulin 5.0, Albumin /Globulin Ratio 0.5L Current Medications Medications (Trade) Dose Ordered Sig/Felipe Route PRN Reason Start Time Stop Time Status Last Admin Dose Admin Acetaminophen (Tylenol) 650 mg Q4H PRN NG Mild Pain 12/11/17 17:00 01/10/18 16:59 12/12/17 04:23 Acetaminophen (Tylenol) 650 mg Q4H PRN ORAL Fever (temp>100.5F) 12/11/17 17:00 01/03/18 16:59 12/12/17 20:01 Albuterol/ Ipratropium (Albuterol/ Ipratropium) 3 ml Q4H PRN HHN sob 12/12/17 11:00 12/17/17 10:59 Allopurinol (Zyloprim) 100 mg DAILY ORAL 12/12/17 09:00 01/04/18 08:59 12/13/17 09:31 Clotrimazole (Lotrimin) 1 applic THREE TIMES A DAY TOPIC 12/11/17 18:00 01/08/18 08:59 12/13/17 09:31 Dextrose (Dextrose 50%) 25 ml STAT PRN IV Hypoglycemia 12/11/17 17:00 01/10/18 16:59 Dextrose (Dextrose 50%) 50 ml STAT PRN IV Hypoglycemia 12/11/17 17:00 01/10/18 16:59 Diphenhydramine HCl (Benadryl) 12.5 mg Q6H PRN IVP Itching 12/11/17 17:00 01/07/18 16:59 12/12/17 04:23 Fluconazole (Diflucan) 100 mg DAILY ORAL 12/12/17 09:00 12/13/17 11:00 12/13/17 09:24 Heparin Sodium (Porcine) (Heparin 5000 units/ml) 5,000 units EVERY 12 HOURS SUBQ 12/11/17 21:00 01/03/18 20:59 12/13/17 09:28 Hydralazine HCl (Apresoline) 10 mg Q4H PRN IV sbp> 160 mmHg 12/11/17 17:30 01/08/18 17:29 Hydralazine HCl (Apresoline) 25 mg Q6HR NG 12/11/17 18:00 01/08/18 15:44 12/13/17 05:49 Hydrocortisone (Solu-CORTEF) 100 mg DAILY IV 12/12/17 09:00 01/07/18 21:59 12/13/17 09:24 Insulin Aspart (NovoLOG) EVERY 6 HOURS SUBQ 12/11/17 18:00 01/04/18 11:29 12/13/17 00:01 Nitroglycerin (Ntg) 0.4 mg Q5M PRN SL Prn Chest Pain 12/11/17 17:00 01/03/18 16:59 Ondansetron HCl (Zofran) 4 mg Q6H PRN IVP Nausea & Vomiting 12/11/17 17:00 01/03/18 16:59 Pantoprazole (Protonix) 40 mg EVERY 12 HOURS IVP 12/11/17 21:00 01/08/18 20:59 12/13/17 09:24 Alexx ([facility])Rosibel NP December 13, 2017 10:27
--- NOTE | 2017-12-13 11:18 | General Progress Note ---
Assessment/Plan Status: stable Assessment/Plan 1. Coagulopathy, potentially secondary to liver problem, liver disease. --> On anticoag 2. The patient has transaminitis as well as elevated --> Continue to closely monitor for improvement. Albumin of 2.1 as well. 3. Anemia due to underlying chronic disease. --> Continue to closely monitor. Anemia workup has been reviewed. --> Blood transfusion not required unless symptomatic or hgb <7 --> Hgb has been stable. 4. Transaminitis, potentially secondary to shock liver versus other cause. 5. Acute tubular necrosis with elevated creatinine. Continue to closely monitor. 6. Likely obesity hypoventilation syndrome. 7. Respiratory failure, status post intubation. 8. Leukocytosis, potentially secondary to infection. --> Worsened again. Monitor for improvement. 9. Acute kidney injury. The patient's creatinine within normal limits on admission, potentially secondary to shock. 10. Elevated liver enzymes. 11. Bradycardia. Subjective Date patient seen: December 11, 2017 Allergies: Coded Allergies: ASPARTAME (Verified Allergy, Unknown, 11/30/17) Headache Subjective Patient is awake and resting in bed. No signs of acute medical distress Objective Last 24 Hour Vital Signs Date Time Temp Pulse Resp B/P (MAP) Pulse Ox O2 Delivery O2 Flow Rate FiO2 12/13/17 09:15 99 12/13/17 09:15 54 20 30 12/13/17 06:41 52 20 30 12/13/17 05:49 148/68 12/13/17 05:33 51 22 30 12/13/17 04:00 30 12/13/17 04:00 98.4 48 30 148/68 97 Mechanical Ventilator 30 98.4 12/13/17 02:57 51 22 30 12/13/17 00:42 46 22 30 12/13/17 00:19 46 12/13/17 00:00 98.8 52 30 140/68 98 Mechanical Ventilator 30 98.8 12/13/17 00:00 95/45 12/12/17 23:07 51 30 30 12/12/17 21:19 51 30 30 12/12/17 20:00 98.2 77 29 95/45 98 Mechanical Ventilator 30 98.2 12/12/17 20:00 30 12/12/17 20:00 76 12/12/17 19:44 51 30 30 12/12/17 18:31 119/60 5/5/18 16:48 51 30 30 12/12/17 16:04 67 12/12/17 16:00 30 12/12/17 16:00 97.6 64 28 119/60 95 Mechanical Ventilator 30 97.6 12/12/17 14:45 74 28 30 12/12/17 13:02 58 28 30 12/12/17 13:00 30 12/12/17 12:00 97.9 51 24 133/52 99 Mechanical Ventilator 30 97.9 12/12/17 12:00 51 12/12/17 12:00 30 12/12/17 11:51 120/69 Intake and Output 12/12/17 12/13/17 19:00 07:00 Intake Total 1285.0 ml Output Total 550 ml Balance 735.0 ml Intake Oral 400 ml IV Total 885.0 ml Output Urine Total 550 ml # Bowel Movements 3 1 Laboratory Tests 12/12/17 14:00: Arterial Blood pH 7.513H, Arterial Blood Partial Pressure CO2 45.1H, Arterial Blood Partial Pressure O2 115.7H, Arterial Blood HCO3 35.4H, Arterial Blood Oxygen Saturation 98.1H, Arterial Blood Base Excess 11.2, Doroteo Test Positive 12/13/17 03:50: White Blood Count 10.1, Red Blood Count 3.76L, Hemoglobin 10.9L, Hematocrit 35.3L, Mean Corpuscular Volume 94, Mean Corpuscular Hemoglobin 29.0, Mean Corpuscular Hemoglobin Concent 30.9L, Red Cell Distribution Width 15.4H, Platelet Count 275, Mean Platelet Volume 6.8, Neutrophils (%) (Auto) 44.6L, Lymphocytes (%) (Auto) 42.7, Monocytes (%) (Auto) 11.3H, Eosinophils (%) (Auto) 0.4, Basophils (%) (Auto) 1.0, Sodium Level 141, Potassium Level 3.3L, Chloride Level 100, Carbon Dioxide Level 33H, Anion Gap 8, Blood Urea Nitrogen 41H, Creatinine 3.6H, Estimat Glomerular Filtration Rate 15.6, Glucose Level 146H, Uric Acid 6.4, Calcium Level 8.9, Phosphorus Level 4.8, Magnesium Level 1.8, Total Bilirubin 0.5, Aspartate Amino Transf (AST/SGOT) 33, Alanine Aminotransferase (ALT/SGPT) 64, Alkaline Phosphatase 166H, Pro-B-Type Natriuretic Peptide 797H, Total Protein 7.6, Albumin 2.6L, Globulin 5.0, Albumin /Globulin Ratio 0.5L Height (Feet): 5 Height (Inches): 8.00 Weight (Pounds): 454 General Appearance: no apparent distress Jem Palmer MD December 13, 2017 11:18
--- NOTE | 2017-12-13 11:21 | General Progress Note ---
Assessment/Plan Status: stable Assessment/Plan 1. Coagulopathy, potentially secondary to liver problem, liver disease. --> On anticoag 2. The patient has transaminitis as well as elevated --> Continue to closely monitor for improvement. Albumin of 2.1 as well. 3. Anemia due to underlying chronic disease. --> Continue to closely monitor. Anemia workup has been reviewed. --> Blood transfusion not required unless symptomatic or hgb <7 --> Hgb has been stable. 4. Transaminitis, potentially secondary to shock liver versus other cause. 5. Acute tubular necrosis with elevated creatinine. Continue to closely monitor. 6. Likely obesity hypoventilation syndrome. 7. Respiratory failure, status post intubation. 8. Leukocytosis, potentially secondary to infection. --> Worsened again. Monitor for improvement. 9. Acute kidney injury. The patient's creatinine within normal limits on admission, potentially secondary to shock. 10. Elevated liver enzymes. 11. Bradycardia. Subjective Date patient seen: December 12, 2017 Constitutional: Reports: no symptoms HEENT: Reports: no symptoms Allergies: Coded Allergies: ASPARTAME (Verified Allergy, Unknown, 11/30/17) Headache All Systems: reviewed and negative except above Subjective Patient is awake and resting in bed. No signs of acute medical distress Objective Last 24 Hour Vital Signs Date Time Temp Pulse Resp B/P (MAP) Pulse Ox O2 Delivery O2 Flow Rate FiO2 12/13/17 09:15 99 12/13/17 09:15 54 20 30 12/13/17 06:41 52 20 30 12/13/17 05:49 148/68 12/13/17 05:33 51 22 30 12/13/17 04:00 30 12/13/17 04:00 98.4 48 30 148/68 97 Mechanical Ventilator 30 98.4 12/13/17 02:57 51 22 30 12/13/17 00:42 46 22 30 12/13/17 00:19 46 12/13/17 00:00 98.8 52 30 140/68 98 Mechanical Ventilator 30 98.8 12/13/17 00:00 95/45 12/12/17 23:07 51 30 30 12/12/17 21:19 51 30 30 12/12/17 20:00 98.2 77 29 95/45 98 Mechanical Ventilator 30 98.2 12/12/17 20:00 30 12/12/17 20:00 76 5/5/18 19:44 51 30 30 12/12/17 18:31 119/60 12/12/17 16:48 51 30 30 12/12/17 16:04 67 12/12/17 16:00 30 12/12/17 16:00 97.6 64 28 119/60 95 Mechanical Ventilator 30 97.6 12/12/17 14:45 74 28 30 12/12/17 13:02 58 28 30 12/12/17 13:00 30 12/12/17 12:00 97.9 51 24 133/52 99 Mechanical Ventilator 30 97.9 12/12/17 12:00 51 12/12/17 12:00 30 12/12/17 11:51 120/69 Intake and Output 12/12/17 12/13/17 19:00 07:00 Intake Total 1285.0 ml Output Total 550 ml Balance 735.0 ml Intake Oral 400 ml IV Total 885.0 ml Output Urine Total 550 ml # Bowel Movements 3 1 Laboratory Tests 12/12/17 14:00: Arterial Blood pH 7.513H, Arterial Blood Partial Pressure CO2 45.1H, Arterial Blood Partial Pressure O2 115.7H, Arterial Blood HCO3 35.4H, Arterial Blood Oxygen Saturation 98.1H, Arterial Blood Base Excess 11.2, Doroteo Test Positive 12/13/17 03:50: White Blood Count 10.1, Red Blood Count 3.76L, Hemoglobin 10.9L, Hematocrit 35.3L, Mean Corpuscular Volume 94, Mean Corpuscular Hemoglobin 29.0, Mean Corpuscular Hemoglobin Concent 30.9L, Red Cell Distribution Width 15.4H, Platelet Count 275, Mean Platelet Volume 6.8, Neutrophils (%) (Auto) 44.6L, Lymphocytes (%) (Auto) 42.7, Monocytes (%) (Auto) 11.3H, Eosinophils (%) (Auto) 0.4, Basophils (%) (Auto) 1.0, Sodium Level 141, Potassium Level 3.3L, Chloride Level 100, Carbon Dioxide Level 33H, Anion Gap 8, Blood Urea Nitrogen 41H, Creatinine 3.6H, Estimat Glomerular Filtration Rate 15.6, Glucose Level 146H, Uric Acid 6.4, Calcium Level 8.9, Phosphorus Level 4.8, Magnesium Level 1.8, Total Bilirubin 0.5, Aspartate Amino Transf (AST/SGOT) 33, Alanine Aminotransferase (ALT/SGPT) 64, Alkaline Phosphatase 166H, Pro-B-Type Natriuretic Peptide 797H, Total Protein 7.6, Albumin 2.6L, Globulin 5.0, Albumin /Globulin Ratio 0.5L Height (Feet): 5 Height (Inches): 8.00 Weight (Pounds): 454 General Appearance: no apparent distress Jem Palmer MD December 13, 2017 11:21
[2017-12-13 12:00] VITALS: BP 141/61
[2017-12-13] MEDS ORDERED: HydrALAZINE 25mg tab NG SCH (12:00)
[2017-12-13] MEDS ORDERED: Potassium Chloride 30 MEQ in Sodium Chloride 500ML 550 ML IVPB ONE (12:00)
--- NOTE | 2017-12-13 14:15 | Cardiac Electrophysiology PN ---
Assessment/Plan Assessment/Plan 1. Sinus bradycardia with no evidence of heart block. Still savannah even off midodrine. Watch the patient on telemetry. Asymptomatic. Hold off on permanent pacer 2. Respiratory failure. S/P tracheostomy 3. Hypertension, on hydralazine, change to 50 q 8hr. 4. Morbid obesity. 5. History of supraventricular tachycardia. 6. Elevated liver enzymes. 7. Renal failure. 8. Passed swallow eval ROLLY RN Subjective Subjective Alert in NAD.Still savannah but asymptomatic. Objective Last 24 Hour Vital Signs Date Time Temp Pulse Resp B/P (MAP) Pulse Ox O2 Delivery O2 Flow Rate FiO2 12/13/17 13:18 53 21 30 12/13/17 12:04 141/61 12/13/17 12:00 53 12/13/17 12:00 30 12/13/17 12:00 98.3 55 28 141/61 98 Mechanical Ventilator 30 98.3 12/13/17 11:22 53 21 30 12/13/17 09:15 99 12/13/17 09:15 54 20 30 12/13/17 08:00 30 12/13/17 08:00 98.3 63 24 124/58 99 Mechanical Ventilator 30 98.3 12/13/17 08:00 47 12/13/17 06:41 52 20 30 12/13/17 05:49 148/68 12/13/17 05:33 51 22 30 12/13/17 04:00 30 12/13/17 04:00 98.4 48 30 148/68 97 Mechanical Ventilator 30 98.4 12/13/17 02:57 51 22 30 12/13/17 00:42 46 22 30 12/13/17 00:19 46 12/13/17 00:00 98.8 52 30 140/68 98 Mechanical Ventilator 30 98.8 12/13/17 00:00 95/45 12/12/17 23:07 51 30 30 12/12/17 21:19 51 30 30 12/12/17 20:00 98.2 77 29 95/45 98 Mechanical Ventilator 30 98.2 12/12/17 20:00 30 12/12/17 20:00 76 12/12/17 19:44 51 30 30 12/12/17 18:31 119/60 12/12/17 16:48 51 30 30 12/12/17 16:04 67 12/12/17 16:00 30 12/12/17 16:00 97.6 64 28 119/60 95 Mechanical Ventilator 30 97.6 12/12/17 14:45 74 28 30 Intake and Output 12/12/17 12/13/17 19:00 07:00 Intake Total 1285.0 ml Output Total 550 ml Balance 735.0 ml Intake Oral 400 ml IV Total 885.0 ml Output Urine Total 550 ml # Bowel Movements 3 1 Laboratory Tests Test 12/13/17 03:50 White Blood Count 10.1 K/UL (4.8-10.8) Red Blood Count 3.76 M/UL (4.20-5.40) L Hemoglobin 10.9 G/DL (12.0-16.0) L Hematocrit 35.3 % (37.0-47.0) L Mean Corpuscular Volume 94 FL (80-99) Mean Corpuscular Hemoglobin 29.0 PG (27.0-31.0) Mean Corpuscular Hemoglobin Concent 30.9 G/DL (32.0-36.0) L Red Cell Distribution Width 15.4 % (11.6-14.8) H Platelet Count 275 K/UL (150-450) Mean Platelet Volume 6.8 FL (6.5-10.1) Neutrophils (%) (Auto) 44.6 % (45.0-75.0) L Lymphocytes (%) (Auto) 42.7 % (20.0-45.0) Monocytes (%) (Auto) 11.3 % (1.0-10.0) H Eosinophils (%) (Auto) 0.4 % (0.0-3.0) Basophils (%) (Auto) 1.0 % (0.0-2.0) Sodium Level 141 MMOL/L (136-145) Potassium Level 3.3 MMOL/L (3.5-5.1) L Chloride Level 100 MMOL/L (98-107) Carbon Dioxide Level 33 MMOL/L (21-32) H Anion Gap 8 mmol/L (5-15) Blood Urea Nitrogen 41 mg/dL (7-18) H Creatinine 3.6 MG/DL (0.55-1.30) H Estimat Glomerular Filtration Rate 15.6 mL/min (>60) Glucose Level 146 MG/DL (74-106) H Uric Acid 6.4 MG/DL (2.6-7.2) Calcium Level 8.9 MG/DL (8.5-10.1) Phosphorus Level 4.8 MG/DL (2.5-4.9) Magnesium Level 1.8 MG/DL (1.8-2.4) Total Bilirubin 0.5 MG/DL (0.2-1.0) Aspartate Amino Transf (AST/SGOT) 33 U/L (15-37) Alanine Aminotransferase (ALT/SGPT) 64 U/L (12-78) Alkaline Phosphatase 166 U/L (46-116) H Pro-B-Type Natriuretic Peptide 797 pg/mL (0-125) H Total Protein 7.6 G/DL (6.4-8.2) Albumin 2.6 G/DL (3.4-5.0) L Globulin 5.0 g/dL Albumin/Globulin Ratio 0.5 (1.0-2.7) L Microbiology Date/Time Source Procedure Growth Status 12/10/17 22:00 Sputum Gram Stain - Final Resulted 12/10/17 22:00 Sputum Sputum Culture - Preliminary NO GROWTH AFTER 24 HOURS Resulted Objective HEAD AND NECK: No JVD. S/P Tracheostomy LUNGS: Coarse rhonchi. CARDIOVASCULAR: Bradycardic S1 and S2 . ABDOMEN: Morbidly obese. EXTREMITIES: 1+ pitting edema. Melvin Bejarano MD December 13, 2017 14:15
[2017-12-13 16:00] VITALS: BP 132/67
--- NOTE | 2017-12-13 16:08 | General Progress Note ---
Assessment/Plan Problem List: (1) UTI (urinary tract infection) ICD Codes: N39.0 - Urinary tract infection, site not specified SNOMED: 17536135 Qualifiers: Qualified Codes: N39.0 - Urinary tract infection, site not specified (2) Morbid obesity ICD Codes: E66.01 - Morbid (severe) obesity due to excess calories SNOMED: 406316613, 60177459908836 (3) Fatty liver ICD Codes: K76.0 - Fatty (change of) liver, not elsewhere classified SNOMED: 860371397 (4) Acute respiratory failure with hypoxia and hypercapnia ICD Codes: J96.01 - Acute respiratory failure with hypoxia; J96.02 - Acute respiratory failure with hypercapnia SNOMED: 48286361, 75845389, 805347404 (5) GERD (gastroesophageal reflux disease) ICD Codes: K21.9 - Gastro-esophageal reflux disease without esophagitis SNOMED: 713044528 (6) Asthma ICD Codes: J45.909 - Unspecified asthma, uncomplicated SNOMED: 524768985 (7) HTN (hypertension) ICD Codes: I10 - Essential (primary) hypertension SNOMED: 78868079 (8) Hepatitis B core antibody positive ICD Codes: R76.8 - Other specified abnormal immunological findings in serum SNOMED: 212126515 (9) DM2 (diabetes mellitus, type 2) ICD Codes: E11.9 - Type 2 diabetes mellitus without complications SNOMED: 02501949 (10) Likely obesity hypoventilation syndrome (11) lives at snf (12) Severe sepsis ICD Codes: A41.9 - Sepsis, unspecified organism; R65.20 - Severe sepsis without septic shock SNOMED: 23263484 (13) Elevated liver enzymes ICD Codes: R74.8 - Abnormal levels of other serum enzymes SNOMED: 550359418 (14) Acute toxic metabolic encephalopathy (15) Aspiration pnemonia vs HCAP (16) KASHIF (acute kidney injury) ICD Codes: N17.9 - Acute kidney failure, unspecified SNOMED: 43441331 (17) ATN (acute tubular necrosis) ICD Codes: N17.0 - Acute kidney failure with tubular necrosis SNOMED: 31658109 (18) Acute on chronic diastolic (congestive) heart failure ICD Codes: I50.33 - Acute on chronic diastolic (congestive) heart failure SNOMED: 40076700, 136679581 (19) Bacteremia ICD Codes: R78.81 - Bacteremia SNOMED: 4842249 (20) Septic shock ICD Codes: A41.9 - Sepsis, unspecified organism; R65.21 - Severe sepsis with septic shock SNOMED: 71261530 (21) Hypokalemia ICD Codes: E87.6 - Hypokalemia SNOMED: 06709587 (22) Multiple organ failure SNOMED: 11516074 (23) HCAP 2/2 MRSA (24) Elevated troponin I level ICD Codes: R74.8 - Abnormal levels of other serum enzymes SNOMED: 479905926 (25) Acute renal failure (ARF) ICD Codes: N17.9 - Acute kidney failure, unspecified SNOMED: 83994595 (26) Shock liver ICD Codes: K72.00 - Acute and subacute hepatic failure without coma SNOMED: 017722419 (27) Lactic acid acidosis ICD Codes: E87.2 - Acidosis SNOMED: 48855130 (28) Anemia ICD Codes: D64.9 - Anemia, unspecified SNOMED: 059927631 Status: stable Assessment/Plan Cont ICU/YESI care Pulm/critical care consulted Cont on vent and wean as tolerated Daily SBTs, sedation holidays This is pt's 3rd intubation in less than 6 months. D/w pulm re likely plan for tracheostomy. D/w pt and son. Surgery consulted s/p tracheostomy on 12/10/17 Currently not requiring pressors. Goal MAP 65 and above Cardiology consulted given bradycardia. Likely 2/2 midodrine Hold midodrine Taper off steroids ID consulted Empiric linezolid, cefepime and flagyl per ID; zosyn d/c'd given KASHIF; vanco d/c' d given KASHIF Continue fluconazole given fungal UTI F/u cultures Nephrology consulted given KASHIF HD line placed and started on HD on 12/07/17. Cont HD per renal. Last HD 12/11 Strict I/O's Trend CBC, CMP [employer]AT[employer]ER eval ordered CLD for now Pain control, bowel regimen Supportive care PPI CM consulted for d/c plan to subacute facility vs LTACH such as [facility] DVT Prophylaxis: SCD, HSQ Code Status: Full Hospital Classification Declaration: Based on this initial evaluation, and depending on the patient's clinical course, I anticipate that this patient will require hospitalization for 3-4 days for acute respiratory failure, sepsis and close respiratory/hemodynamic monitoring. Disposition: Once the patient is stable to leave the hospital, I anticipate the patient will likely be discharged to the following environment: subacute SNF vs LTACH On the above date of service, I spent a total of 31 minutes in the ICU/YESI evaluating, managing, and providing critical care services to this patient, including time spent documenting these activities, counseling patient/family, and coordinating care. Critical care services performed include: Telemetry Review Hemodynamic measurement interpretation Laboratory data review and interpretation Ventilator setting review, management, and adjustment Discussion of care plans with patient, family, and/or surrogate decision makers Discussion of patient's care with primary medical team, surgical team, and/or consulting service Decision to obtain further radiologic evaluation, after consideration of risk/ benefit ratio Decision to perform invasive procedure, after consideration of risk/benefit ratio Review of most recent microbiology results with assessment and modification of antimicrobial coverage Discussion of patient's code status and further advancement towards the ultimate goals of care Plan outlined above discussed with patient/family, pulm/critical care, ID regarding mgmt and dispo. D/w pulm re plan for trach. D/w ID re broad-spectrum abx. D/w renal re rising SCr, plan for HD. D/w surgery re tracheostomy Time of note may not reflect time of encounter. Subjective Date patient seen: December 13, 2017 Time patient seen: 16:03 Allergies: Coded Allergies: ASPARTAME (Verified Allergy, Unknown, 11/30/17) Headache Subjective - HR continues to be in the 50-60s but no intervention for pacemaker at this time per cards - awake and responsive Objective Last 24 Hour Vital Signs Date Time Temp Pulse Resp B/P (MAP) Pulse Ox O2 Delivery O2 Flow Rate FiO2 12/13/17 15:11 56 20 30 12/13/17 13:18 53 21 30 12/13/17 12:04 141/61 12/13/17 12:00 53 12/13/17 12:00 30 12/13/17 12:00 98.3 55 28 141/61 98 Mechanical Ventilator 30 98.3 12/13/17 11:22 53 21 30 12/13/17 09:15 99 12/13/17 09:15 54 20 30 12/13/17 08:00 30 12/13/17 08:00 98.3 63 24 124/58 99 Mechanical Ventilator 30 98.3 12/13/17 08:00 47 12/13/17 06:41 52 20 30 12/13/17 05:49 148/68 12/13/17 05:33 51 22 30 12/13/17 04:00 30 12/13/17 04:00 98.4 48 30 148/68 97 Mechanical Ventilator 30 98.4 12/13/17 02:57 51 22 30 12/13/17 00:42 46 22 30 12/13/17 00:19 46 12/13/17 00:00 98.8 52 30 140/68 98 Mechanical Ventilator 30 98.8 12/13/17 00:00 95/45 12/12/17 23:07 51 30 30 12/12/17 21:19 51 30 30 12/12/17 20:00 98.2 77 29 95/45 98 Mechanical Ventilator 30 98.2 12/12/17 20:00 30 12/12/17 20:00 76 12/12/17 19:44 51 30 30 12/12/17 18:31 119/60 12/12/17 16:48 51 30 30 12/12/17 16:04 67 Intake and Output 12/12/17 12/13/17 19:00 07:00 Intake Total 1285.0 ml Output Total 550 ml Balance 735.0 ml Intake Oral 400 ml IV Total 885.0 ml Output Urine Total 550 ml # Bowel Movements 3 1 Laboratory Tests 12/13/17 03:50: White Blood Count 10.1, Red Blood Count 3.76L, Hemoglobin 10.9L, Hematocrit 35.3L, Mean Corpuscular Volume 94, Mean Corpuscular Hemoglobin 29.0, Mean Corpuscular Hemoglobin Concent 30.9L, Red Cell Distribution Width 15.4H, Platelet Count 275, Mean Platelet Volume 6.8, Neutrophils (%) (Auto) 44.6L, Lymphocytes (%) (Auto) 42.7, Monocytes (%) (Auto) 11.3H, Eosinophils (%) (Auto) 0.4, Basophils (%) (Auto) 1.0, Sodium Level 141, Potassium Level 3.3L, Chloride Level 100, Carbon Dioxide Level 33H, Anion Gap 8, Blood Urea Nitrogen 41H, Creatinine 3.6H, Estimat Glomerular Filtration Rate 15.6, Glucose Level 146H, Uric Acid 6.4, Calcium Level 8.9, Phosphorus Level 4.8, Magnesium Level 1.8, Total Bilirubin 0.5, Aspartate Amino Transf (AST/SGOT) 33, Alanine Aminotransferase (ALT/SGPT) 64, Alkaline Phosphatase 166H, Pro-B-Type Natriuretic Peptide 797H, Total Protein 7.6, Albumin 2.6L, Globulin 5.0, Albumin /Globulin Ratio 0.5L Height (Feet): 5 Height (Inches): 8.00 Weight (Pounds): 454 General Appearance: alert EENT: PERRL/EOMI, normal ENT inspection Neck: non-tender, normal alignment, other - +tracheostomy Cardiovascular: normal peripheral pulses, bradycardia Respiratory/Chest: chest wall non-tender, lungs clear, normal breath sounds Abdomen: normal bowel sounds, non tender, soft Neurologic: development manager II-XII grossly normal, no motor/sensory deficits, alert, oriented x 3, responsive Katty Lynn N.P. December 13, 2017 16:08
[2017-12-13] MEDS ORDERED: Tubing IV Secondary IV ONE (16:10)
--- NOTE | 2017-12-13 19:01 | General Progress Note ---
Assessment/Plan Assessment/Plan 1. Coagulopathy, potentially secondary to liver problem, liver disease. --> On anticoag 2. The patient has transaminitis as well as elevated --> Continue to closely monitor for improvement. Albumin of 2.1 as well. 3. Anemia due to underlying chronic disease. --> Continue to closely monitor. Anemia workup has been reviewed. --> Blood transfusion not required unless symptomatic or hgb <7 --> Hgb has been stable. 4. Transaminitis, potentially secondary to shock liver versus other cause. 5. Acute tubular necrosis with elevated creatinine. Continue to closely monitor. 6. Likely obesity hypoventilation syndrome. 7. Respiratory failure, status post intubation. --> ++tracheostomy 8. Leukocytosis, potentially secondary to infection. --> Worsened again. Monitor for improvement. 9. Acute kidney injury. The patient's creatinine within normal limits on admission, potentially secondary to shock. 10. Elevated liver enzymes. 11. Bradycardia. Subjective Date patient seen: December 13, 2017 Constitutional: Denies: no symptoms, chills, diaphoresis, fever, malaise, weakness, other HEENT: Denies: no symptoms, eye pain, blurred vision, tearing, double vision, ear pain, ear discharge, nose pain, nose congestion, throat pain, throat swelling, mouth pain, mouth swelling, other Cardiovascular: Denies: no symptoms, chest pain, edema, irregular heart rate, lightheadedness, palpitations, syncope, other Respiratory: Denies: no symptoms, cough, orthopnea, shortness of breath, SOB with excertion, SOB at rest, sputum, stridor, wheezing, other Gastrointestinal/Abdominal: Denies: no symptoms, abdomen distended, abdominal pain, black stools, tarry stools, blood in stool, constipated, diarrhea, difficulty swallowing, nausea, poor appetite, poor fluid intake, rectal bleeding , vomiting, other Genitourinary: Denies: no symptoms, burning, discharge, frequency, flank pain, hematuria, incontinence, pain, urgency, other Neurologic/Psychiatric: Denies: no symptoms, anxiety, depressed, emotional problems, headache, numbness, paresthesia, pre-existing deficit, seizure, tingling, tremors, weakness, other Endocrine: Denies: no symptoms, excessive sweating, flushing, intolerance to cold, intolerance to heat, increased hunger, increased thirst, increased urine, unexplained weight gain, unexplained weight loss, other Allergies: Coded Allergies: ASPARTAME (Verified Allergy, Unknown, 11/30/17) Headache Subjective H/H stable. On vent. Bradycardia. Objective Last 24 Hour Vital Signs Date Time Temp Pulse Resp B/P (MAP) Pulse Ox O2 Delivery O2 Flow Rate FiO2 12/13/17 16:49 51 28 30 12/13/17 16:00 97.5 68 28 132/67 98 Mechanical Ventilator 28 97.5 12/13/17 16:00 30 12/13/17 16:00 48 12/13/17 15:11 56 20 30 12/13/17 13:18 53 21 30 12/13/17 12:04 141/61 12/13/17 12:00 53 12/13/17 12:00 30 12/13/17 12:00 98.3 55 28 141/61 98 Mechanical Ventilator 30 98.3 12/13/17 11:22 53 21 30 12/13/17 09:15 99 12/13/17 09:15 54 20 30 12/13/17 08:00 30 12/13/17 08:00 98.3 63 24 124/58 99 Mechanical Ventilator 30 98.3 12/13/17 08:00 47 12/13/17 06:41 52 20 30 12/13/17 05:49 148/68 12/13/17 05:33 51 22 30 12/13/17 04:00 30 12/13/17 04:00 98.4 48 30 148/68 97 Mechanical Ventilator 30 98.4 12/13/17 02:57 51 22 30 12/13/17 00:42 46 22 30 12/13/17 00:19 46 12/13/17 00:00 98.8 52 30 140/68 98 Mechanical Ventilator 30 98.8 12/13/17 00:00 95/45 12/12/17 23:07 51 30 30 12/12/17 21:19 51 30 30 12/12/17 20:00 98.2 77 29 95/45 98 Mechanical Ventilator 30 98.2 12/12/17 20:00 30 12/12/17 20:00 76 12/12/17 19:44 51 30 30 Intake and Output 12/12/17 12/13/17 19:00 07:00 Intake Total 1285.0 ml Output Total 550 ml Balance 735.0 ml Intake Oral 400 ml IV Total 885.0 ml Output Urine Total 550 ml # Bowel Movements 3 1 Laboratory Tests 12/13/17 03:50: White Blood Count 10.1, Red Blood Count 3.76L, Hemoglobin 10.9L, Hematocrit 35.3L, Mean Corpuscular Volume 94, Mean Corpuscular Hemoglobin 29.0, Mean Corpuscular Hemoglobin Concent 30.9L, Red Cell Distribution Width 15.4H, Platelet Count 275, Mean Platelet Volume 6.8, Neutrophils (%) (Auto) 44.6L, Lymphocytes (%) (Auto) 42.7, Monocytes (%) (Auto) 11.3H, Eosinophils (%) (Auto) 0.4, Basophils (%) (Auto) 1.0, Sodium Level 141, Potassium Level 3.3L, Chloride Level 100, Carbon Dioxide Level 33H, Anion Gap 8, Blood Urea Nitrogen 41H, Creatinine 3.6H, Estimat Glomerular Filtration Rate 15.6, Glucose Level 146H, Uric Acid 6.4, Calcium Level 8.9, Phosphorus Level 4.8, Magnesium Level 1.8, Total Bilirubin 0.5, Aspartate Amino Transf (AST/SGOT) 33, Alanine Aminotransferase (ALT/SGPT) 64, Alkaline Phosphatase 166H, Pro-B-Type Natriuretic Peptide 797H, Total Protein 7.6, Albumin 2.6L, Globulin 5.0, Albumin /Globulin Ratio 0.5L Height (Feet): 5 Height (Inches): 8.00 Weight (Pounds): 454 General Appearance: alert EENT: PERRL/EOMI, normal ENT inspection Neck: non-tender, normal alignment Cardiovascular: normal peripheral pulses Respiratory/Chest: chest wall non-tender, lungs clear Abdomen: normal bowel sounds, non tender Jem Palmer MD December 13, 2017 19:01
[2017-12-13 20:00] VITALS: BP 120/53
[2017-12-13] MEDS: HydrALAZINE 50mg tab NG SCH (22:05)
[2017-12-14] VITALS: BP 148/76
[2017-12-14] MEDS: NovoLOG Insulin Flexpen SUBQ SCH ×5 (00:21→23:48)
[2017-12-14 04:00] VITALS: BP 147/69
[2017-12-14] MEDS: HydrALAZINE 50mg tab NG SCH ×3 (06:25→22:03)
[2017-12-14 08:00] VITALS: BP 134/72
[2017-12-14] MEDS: Hydrocortisone 100mg Inj IV SCH (09:50)
[2017-12-14] MEDS: Allopurinol 100mg Tab ORAL SCH (09:51)
[2017-12-14] MEDS: Pantoprazole Inj IVP SCH ×2 (09:51→20:15)
[2017-12-14] MEDS: Heparin 5000 units/ml inj SUBQ SCH ×2 (09:54→20:17)
[2017-12-14 09:59] LABS: BASOPHILS % (AUTO) 0.9 % (0.0-2.0); EOSINOPHILS % (AUTO) 1.1 % (0.0-3.0); HEMATOCRIT 34.9 % (37.0-47.0); HEMOGLOBIN 10.8 G/DL (12.0-16.0); MEAN CORPUSCULAR VOLUME 94 FL (80-99); MONOCYTES % (AUTO) 11.6 % (1.0-10.0); NEUTROPHILS % (AUTO) 49.4 % (45.0-75.0); PLATELET COUNT 293 K/UL (150-450); RED BLOOD COUNT 3.69 M/UL (4.20-5.40); RED CELL DISTRIBUTION WIDTH 15.2 % (11.6-14.8); WHITE BLOOD COUNT 9.7 K/UL (4.8-10.8)
[2017-12-14 10:21] LABS: ANION GAP 8 mmol/L (5-15); BLOOD UREA NITROGEN 42 mg/dL (7-18); CALCIUM 8.7 MG/DL (8.5-10.1); CARBON DIOXIDE 31 MMOL/L (21-32); CHLORIDE 102 MMOL/L (98-107); CREATININE 2.8 MG/DL (0.55-1.30); POTASSIUM 3.4 MMOL/L (3.5-5.1); SODIUM 141 MMOL/L (136-145)
--- NOTE | 2017-12-14 10:40 | Diagnostic Imaging Report ---
Indication: Dyspnea Comparison: 12/10/2017 A single view chest radiograph was obtained. Findings: Tracheostomy now noted. The tip of the tube projected over the mid trachea in good position. Right jugular catheter in good position unchanged. Heart is enlarged. Lungs are essentially clear. IMPRESSION: Tracheostomy noted. No pneumothorax. No change otherwise.
[2017-12-14 11:06] LABS: ALANINE AMINOTRANSFERASE 57 U/L (12-78); ALBUMIN 2.6 G/DL (3.4-5.0); ALKALINE PHOSPHATASE 156 U/L (46-116); ASPARTATE AMINO TRANSFERASE 44 U/L (15-37); BILIRUBIN,DIRECT 0.3 MG/DL (0.0-0.3); BILIRUBIN,TOTAL 0.5 MG/DL (0.2-1.0); PHOSPHORUS 4.2 MG/DL (2.5-4.9)
--- NOTE | 2017-12-14 11:14 | Pulmonolgy Critical Care Note ---
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 Infectious Disease: check cultures Gastrointestinal: continue feedings/current rate Endocrine: monitor blood sugar Hematologic: monitor H/H Neurologic: PRN Ativan, PRN Morphine Prophylaxis: Protonix, Heparin Notes Reviewed: senior programmer, 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 with: nurses, consultants, casework specialisttool crib manager - Objective Last 24 Hour Vital Signs Date Time Temp Pulse Resp B/P (MAP) Pulse Ox O2 Delivery O2 Flow Rate FiO2 12/14/17 08:54 100 12/14/17 08:48 65 18 30 12/14/17 08:00 98.2 65 21 134/72 99 Mechanical Ventilator 30 98.2 12/14/17 07:21 45 14 30 12/14/17 06:25 148/76 12/14/17 05:30 58 19 30 12/14/17 04:00 43 12/14/17 04:00 97.9 78 14 147/69 96 Mechanical Ventilator 30 97.9 12/14/17 04:00 30 12/14/17 03:30 50 18 30 12/14/17 01:30 51 18 30 12/14/17 00:00 30 12/14/17 00:00 45 12/14/17 00:00 98.2 50 24 148/76 96 Mechanical Ventilator 30 98.2 12/13/17 23:24 50 19 30 12/13/17 22:05 132/67 12/13/17 21:30 52 18 30 12/13/17 20:00 97.9 61 28 120/53 98 Mechanical Ventilator 30 97.9 12/13/17 20:00 52 12/13/17 20:00 30 12/13/17 19:30 50 17 30 12/13/17 16:49 51 28 30 12/13/17 16:00 97.5 68 28 132/67 98 Mechanical Ventilator 28 97.5 12/13/17 16:00 30 12/13/17 16:00 48 12/13/17 15:11 56 20 30 12/13/17 13:18 53 21 30 12/13/17 12:04 141/61 12/13/17 12:00 53 12/13/17 12:00 30 12/13/17 12:00 98.3 55 28 141/61 98 Mechanical Ventilator 30 98.3 12/13/17 11:22 53 21 30 Status: awake Condition: critical HEENT: atraumatic Neck: full ROM Lungs: rales, rhonchi Heart: HR/BP stable Abdomen: soft, active bowel sounds Accucheck: 143 Critical Care - Subjective ROS Limited/Unobtainable: No Interval Events: looks comfortable FI02: 30 Vent Support Breath Rate: 14 Vent Support Mode: CPAP Vent Tidal Volume: 600 Sputum Amount: Small PEEP: 5.0 PIP: 14 Tube Feeding Amount: 0 I&O: Intake and Output 12/13/17 12/14/17 19:00 07:00 Output Total 1000 ml Balance -1000 ml Output Urine Total 1000 ml # Bowel Movements 1 CXR: no changes, trach intract ET-Tube: 7.5 ET Position: 25 Labs: Laboratory Tests Test 12/14/17 09:15 White Blood Count 9.7 K/UL (4.8-10.8) Red Blood Count 3.69 M/UL (4.20-5.40) L Hemoglobin 10.8 G/DL (12.0-16.0) L Hematocrit 34.9 % (37.0-47.0) L Mean Corpuscular Volume 94 FL (80-99) Mean Corpuscular Hemoglobin 29.1 PG (27.0-31.0) Mean Corpuscular Hemoglobin Concent 30.8 G/DL (32.0-36.0) L Red Cell Distribution Width 15.2 % (11.6-14.8) H Platelet Count 293 K/UL (150-450) Mean Platelet Volume 7.6 FL (6.5-10.1) Neutrophils (%) (Auto) 49.4 % (45.0-75.0) Lymphocytes (%) (Auto) 37.0 % (20.0-45.0) Monocytes (%) (Auto) 11.6 % (1.0-10.0) H Eosinophils (%) (Auto) 1.1 % (0.0-3.0) Basophils (%) (Auto) 0.9 % (0.0-2.0) Sodium Level 141 MMOL/L (136-145) Potassium Level 3.4 MMOL/L (3.5-5.1) L Chloride Level 102 MMOL/L (98-107) Carbon Dioxide Level 31 MMOL/L (21-32) Anion Gap 8 mmol/L (5-15) Blood Urea Nitrogen 42 mg/dL (7-18) H Creatinine 2.8 MG/DL (0.55-1.30) H Estimat Glomerular Filtration Rate 21.0 mL/min (>60) Glucose Level 232 MG/DL (74-106) H Calcium Level 8.7 MG/DL (8.5-10.1) Phosphorus Level 4.2 MG/DL (2.5-4.9) Magnesium Level 1.5 MG/DL (1.8-2.4) L Total Bilirubin 0.5 MG/DL (0.2-1.0) Direct Bilirubin 0.3 MG/DL (0.0-0.3) Aspartate Amino Transf (AST/SGOT) 44 U/L (15-37) H Alanine Aminotransferase (ALT/SGPT) 57 U/L (12-78) Alkaline Phosphatase 156 U/L (46-116) H Total Protein 7.4 G/DL (6.4-8.2) Albumin 2.6 G/DL (3.4-5.0) L Yariel Malone MD December 14, 2017 11:14
[2017-12-14 12:00] VITALS: BP 135/73
--- NOTE | 2017-12-14 14:38 | General Progress Note ---
Assessment/Plan Problem List: (1) Acute toxic metabolic encephalopathy (2) Acute respiratory failure with hypoxia and hypercapnia ICD Codes: J96.01 - Acute respiratory failure with hypoxia; J96.02 - Acute respiratory failure with hypercapnia SNOMED: 38500271, 26906214, 436436069 (3) Likely obesity hypoventilation syndrome (4) Severe sepsis ICD Codes: A41.9 - Sepsis, unspecified organism; R65.20 - Severe sepsis without septic shock SNOMED: 01850316 (5) KASHIF (acute kidney injury) ICD Codes: N17.9 - Acute kidney failure, unspecified SNOMED: 80137484 (6) ATN (acute tubular necrosis) ICD Codes: N17.0 - Acute kidney failure with tubular necrosis SNOMED: 19071843 (7) Elevated liver enzymes ICD Codes: R74.8 - Abnormal levels of other serum enzymes SNOMED: 721562998 (8) Aspiration pnemonia vs HCAP (9) UTI (urinary tract infection) ICD Codes: N39.0 - Urinary tract infection, site not specified SNOMED: 91705542 Qualifiers: Qualified Codes: N39.0 - Urinary tract infection, site not specified (10) Morbid obesity ICD Codes: E66.01 - Morbid (severe) obesity due to excess calories SNOMED: 243791272, 69217938567929 (11) Chronic diastolic (congestive) heart failure ICD Codes: I50.32 - Chronic diastolic (congestive) heart failure SNOMED: 89372100, 285201320 (12) DM2 (diabetes mellitus, type 2) ICD Codes: E11.9 - Type 2 diabetes mellitus without complications SNOMED: 19220058 (13) Hypertension ICD Codes: I10 - Essential (primary) hypertension SNOMED: 36367982 (14) Fatty liver ICD Codes: K76.0 - Fatty (change of) liver, not elsewhere classified SNOMED: 894835150 (15) GERD (gastroesophageal reflux disease) ICD Codes: K21.9 - Gastro-esophageal reflux disease without esophagitis SNOMED: 530037432 (16) Asthma ICD Codes: J45.909 - Unspecified asthma, uncomplicated SNOMED: 806114271 (17) H/O supraventricular tachycardia ICD Codes: Z86.79 - Personal history of other diseases of the circulatory system SNOMED: 542685547649242 Status: stable Assessment/Plan Pulm/critical care consulted Wean vent as tolerated Daily SBTs This is pt's 3rd intubation in less than 6 months. D/w pulm re likely plan for tracheostomy. D/w pt and son. Surgery consulted s/p tracheostomy on 12/10/17 Currently not requiring pressors. Goal MAP 65 and above Cardiology consulted given bradycardia. Likely 2/2 midodrine Hold midodrine s/p steroids ID consulted s/p empiric linezolid, cefepime and flagyl per ID (abx d/c'd 12/13/17) Repeat blood cx show ngtd Nephrology consulted given KASHIF HD line placed and started on HD on 12/07/17. Last HD 12/12. Hold HD for now per renal Strict I/O's Trend CBC, CMP BIOINFORMATICS SPECIALIST eval ordered--soft diet as tolerated Pass-donny speaking valve trial Pain control, bowel regimen Supportive care PPI CM consulted for d/c plan to subacute facility vs LTACH such as [facility] DVT Prophylaxis: SCD, HSQ Code Status: Full Hospital Classification Declaration: Based on this initial evaluation, and depending on the patient's clinical course, I anticipate that this patient will require hospitalization for 3-4 days for acute respiratory failure, sepsis and close respiratory/hemodynamic monitoring. Disposition: Once the patient is stable to leave the hospital, I anticipate the patient will likely be discharged to the following environment: subacute SNF vs LTACH Plan outlined above discussed with patient/family, pulm/critical care, ID regarding mgmt and dispo. D/w pulm re weaning vent. D/w ID re monitor off abx. D /w renal re monitor off HD Time of note may not reflect time of encounter. Subjective Date patient seen: December 14, 2017 Time patient seen: 14:38 ROS Limited/Unobtainable: No Constitutional: Reports: no symptoms HEENT: Reports: no symptoms Cardiovascular: Reports: no symptoms Respiratory: Reports: cough, shortness of breath Gastrointestinal/Abdominal: Reports: no symptoms Genitourinary: Reports: no symptoms Neurologic/Psychiatric: Reports: no symptoms Endocrine: Reports: no symptoms Hematologic/Lymphatic: Reports: no symptoms Allergies: Coded Allergies: ASPARTAME (Verified Allergy, Unknown, 11/30/17) Headache Subjective No acute o/n events s/p tracheostomy POD#4 SCr downtrending. UOP improving Lasting HD 5/5 HR stale at 50-60s Pt doing well. Awake, alert. Passed swallow eval--tolerating PO. Denies f/c, n/v , d/c, chest pain. SOB, cough stable Objective Last 24 Hour Vital Signs Date Time Temp Pulse Resp B/P (MAP) Pulse Ox O2 Delivery O2 Flow Rate FiO2 12/14/17 14:25 135/73 12/14/17 12:00 98.4 61 21 135/73 100 Mechanical Ventilator 30 98.4 12/14/17 10:31 55 24 30 12/14/17 10:28 55 24 Mechanical Ventilator 30 12/14/17 08:54 100 12/14/17 08:48 65 18 30 12/14/17 08:00 98.2 65 21 134/72 99 Mechanical Ventilator 30 98.2 12/14/17 08:00 67 12/14/17 08:00 30 12/14/17 07:21 45 14 30 12/14/17 06:25 148/76 12/14/17 05:30 58 19 30 12/14/17 04:00 43 12/14/17 04:00 97.9 78 14 147/69 96 Mechanical Ventilator 30 97.9 12/14/17 04:00 30 12/14/17 03:30 50 18 30 12/14/17 01:30 51 18 30 12/14/17 00:00 30 12/14/17 00:00 45 12/14/17 00:00 98.2 50 24 148/76 96 Mechanical Ventilator 30 98.2 12/13/17 23:24 50 19 30 12/13/17 22:05 132/67 12/13/17 21:30 52 18 30 12/13/17 20:00 97.9 61 28 120/53 98 Mechanical Ventilator 30 97.9 12/13/17 20:00 52 12/13/17 20:00 30 12/13/17 19:30 50 17 30 12/13/17 16:49 51 28 30 12/13/17 16:00 97.5 68 28 132/67 98 Mechanical Ventilator 28 97.5 12/13/17 16:00 30 12/13/17 16:00 48 12/13/17 15:11 56 20 30 Intake and Output 12/13/17 12/14/17 19:00 07:00 Output Total 1000 ml Balance -1000 ml Output Urine Total 1000 ml # Bowel Movements 1 Laboratory Tests 12/14/17 09:15: White Blood Count 9.7, Red Blood Count 3.69L, Hemoglobin 10.8L, Hematocrit 34.9L , Mean Corpuscular Volume 94, Mean Corpuscular Hemoglobin 29.1, Mean Corpuscular Hemoglobin Concent 30.8L, Red Cell Distribution Width 15.2H, Platelet Count 293, Mean Platelet Volume 7.6, Neutrophils (%) (Auto) 49.4, Lymphocytes (%) (Auto) 37.0, Monocytes (%) (Auto) 11.6H, Eosinophils (%) (Auto) 1.1, Basophils (%) (Auto) 0.9, Sodium Level 141, Potassium Level 3.4L, Chloride Level 102, Carbon Dioxide Level 31, Anion Gap 8, Blood Urea Nitrogen 42H, Creatinine 2.8H, Estimat Glomerular Filtration Rate 21.0, Glucose Level 232H, Calcium Level 8.7, Phosphorus Level 4.2, Magnesium Level 1.5L, Total Bilirubin 0.5, Direct Bilirubin 0.3, Aspartate Amino Transf (AST/SGOT) 44H, Alanine Aminotransferase (ALT/SGPT) 57, Alkaline Phosphatase 156H, Total Protein 7.4, Albumin 2.6L Height (Feet): 5 Height (Inches): 8.00 Weight (Pounds): 421 Objective General: awake, alert, NAD, morbidly obese Head: normocephalic, without obvious abnormality, atraumatic Eyes: conjunctivae/corneas clear. PERRL, EOM's intact Throat: lips, mucosa, and tongue normal. MMM Neck: supple, symmetrical, trachea midline, +tracheostomy c/d/i Lungs:+rhonchi b/l Heart: regular rate and rhythm, S1, S2 normal, no murmur, click, rub or gallop Abdomen: soft, non-tender, non-distended, bowel sounds normal Extremities: extremities normal, atraumatic, no cyanosis or edema Pulses: 2+ and symmetric Skin: skin color, texture, turgor normal; no rashes or lesions Neurologic: sedated Cassie Bolivar M.D. December 14, 2017 14:38
--- NOTE | 2017-12-14 14:48 | Nephrology Progress Note ---
Assessment/Plan Problem List: (1) Acute renal failure (ARF) (2) Acute respiratory failure (3) Acute on chronic diastolic (congestive) heart failure (4) Elevated liver enzymes Assessment - Acute & chronic respiratory failure, - Bacteremia - ATN (acute tubular necrosis), ARF - Acute encephalopathy - Aspiration pnemonia vs HCAP - Likely obesity hypoventilation syndrome - Elevated liver enzymes Plan Acute renal failure, resolving HD last 12/11 low BP resolved resp failure , intubated, resp management obese DC Hydrocortisone Midodrine if BP low monitor renal parameters Up hydralazine dose Subjective ROS Limited/Unobtainable: No Constitutional: Reports: malaise Objective Objective Last 24 Hour Vital Signs Date Time Temp Pulse Resp B/P (MAP) Pulse Ox O2 Delivery O2 Flow Rate FiO2 12/14/17 14:25 135/73 12/14/17 12:00 98.4 61 21 135/73 100 Mechanical Ventilator 30 98.4 12/14/17 10:31 55 24 30 12/14/17 10:28 55 24 Mechanical Ventilator 30 12/14/17 08:54 100 12/14/17 08:48 65 18 30 12/14/17 08:00 98.2 65 21 134/72 99 Mechanical Ventilator 30 98.2 12/14/17 08:00 67 12/14/17 08:00 30 12/14/17 07:21 45 14 30 12/14/17 06:25 148/76 12/14/17 05:30 58 19 30 12/14/17 04:00 43 12/14/17 04:00 97.9 78 14 147/69 96 Mechanical Ventilator 30 97.9 12/14/17 04:00 30 12/14/17 03:30 50 18 30 12/14/17 01:30 51 18 30 12/14/17 00:00 30 12/14/17 00:00 45 12/14/17 00:00 98.2 50 24 148/76 96 Mechanical Ventilator 30 98.2 12/13/17 23:24 50 19 30 12/13/17 22:05 132/67 12/13/17 21:30 52 18 30 12/13/17 20:00 97.9 61 28 120/53 98 Mechanical Ventilator 30 97.9 12/13/17 20:00 52 12/13/17 20:00 30 12/13/17 19:30 50 17 30 12/13/17 16:49 51 28 30 12/13/17 16:00 97.5 68 28 132/67 98 Mechanical Ventilator 28 97.5 12/13/17 16:00 30 12/13/17 16:00 48 12/13/17 15:11 56 20 30 Intake and Output 12/13/17 12/14/17 19:00 07:00 Output Total 1000 ml Balance -1000 ml Output Urine Total 1000 ml # Bowel Movements 1 Laboratory Tests 12/14/17 09:15: White Blood Count 9.7, Red Blood Count 3.69L, Hemoglobin 10.8L, Hematocrit 34.9L , Mean Corpuscular Volume 94, Mean Corpuscular Hemoglobin 29.1, Mean Corpuscular Hemoglobin Concent 30.8L, Red Cell Distribution Width 15.2H, Platelet Count 293, Mean Platelet Volume 7.6, Neutrophils (%) (Auto) 49.4, Lymphocytes (%) (Auto) 37.0, Monocytes (%) (Auto) 11.6H, Eosinophils (%) (Auto) 1.1, Basophils (%) (Auto) 0.9, Sodium Level 141, Potassium Level 3.4L, Chloride Level 102, Carbon Dioxide Level 31, Anion Gap 8, Blood Urea Nitrogen 42H, Creatinine 2.8H, Estimat Glomerular Filtration Rate 21.0, Glucose Level 232H, Calcium Level 8.7, Phosphorus Level 4.2, Magnesium Level 1.5L, Total Bilirubin 0.5, Direct Bilirubin 0.3, Aspartate Amino Transf (AST/SGOT) 44H, Alanine Aminotransferase (ALT/SGPT) 57, Alkaline Phosphatase 156H, Total Protein 7.4, Albumin 2.6L Height (Feet): 5 Height (Inches): 8.00 Weight (Pounds): 421 EENT: other - trached Cardiovascular: normal rate Respiratory/Chest: decreased breath sounds Abdomen: soft Objective no change AGUSTIN CONTRERAS December 14, 2017 14:48
--- NOTE | 2017-12-14 15:09 | Infectious Diseases Prog Note ---
Assessment/Plan Assessment/Plan ASSESSMENT AND PLAN: 1. sepsis, leukocytosis, fevers, ? mrsa pna/uri, ? aspiration pna, possible diphtheroids bacteremia, vent, elevated co2, ams, arf, respiratory failure, edema, ? fungal uti, sig + ua - s/p zyvox, ceftriaxone and flagyl - s/p diflucan - f/u labs and chest x-ray - surveillance cultures negative - continue vent support, weaning protocol - s/p tracheostomy - leukocytosis and fevers resolved - echo - no vegetations mentioned - on steroids - weaning protocol - getting HD per d/w RN - d/w Dr. Matthews 2. Respiratory failure, on vent, no pressors - treatment per primary and pulmonary 3. Vargas. 4. The patient has history of hypertension. 5. Diabetes. 6. Hyperlipidemia. 7. Blood sugar and blood pressure treatment per primary. 8. History of asthma. 9. History of myocardial infarction and coronary artery disease. 10. History of heart failure/congestive heart failure. 11. History of gout. 12. History of sepsis and pneumonia. 13. History of muscle weakness. 14. Gastroesophageal reflux disease. 15. Past orders were noted. 16. Allergies are negative. 17. Family History is noncontributory. 18. Social history is negative. 19. MAR was noted. 20. Case discussed with RN. 21. Continue treatment per primary and consultants. 22. Case discussed with Dr. Matthews. 23. Case discussed with RN in the ICU. 24. Orders were noted and entered. 25. Notes and records were noted. 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 Subjective Constitutional: Denies: fever HEENT: Denies: congestion Respiratory: Denies: shortness of breath Cardiovascular: Denies: chest pain Gastrointestinal/Abdominal: Denies: nausea, vomiting, diarrhea Genitourinary: Reports: other - + vargas Neurologic: Denies: headache Psychiatric: Denies: depression Skin: Denies: rash Hematologic: Denies: bleeding Musculoskeletal: Denies: pain Allergies: Coded Allergies: ASPARTAME (Verified Allergy, Unknown, 11/30/17) Headache Objective Vital Signs Last 24 Hour Vital Signs Date Time Temp Pulse Resp B/P (MAP) Pulse Ox O2 Delivery O2 Flow Rate FiO2 12/14/17 14:25 135/73 12/14/17 12:00 98.4 61 21 135/73 100 Mechanical Ventilator 30 98.4 12/14/17 10:31 55 24 30 12/14/17 10:28 55 24 Mechanical Ventilator 30 12/14/17 08:54 100 12/14/17 08:48 65 18 30 12/14/17 08:00 98.2 65 21 134/72 99 Mechanical Ventilator 30 98.2 12/14/17 08:00 67 12/14/17 08:00 30 12/14/17 07:21 45 14 30 12/14/17 06:25 148/76 12/14/17 05:30 58 19 30 12/14/17 04:00 43 12/14/17 04:00 97.9 78 14 147/69 96 Mechanical Ventilator 30 97.9 12/14/17 04:00 30 12/14/17 03:30 50 18 30 12/14/17 01:30 51 18 30 12/14/17 00:00 30 12/14/17 00:00 45 12/14/17 00:00 98.2 50 24 148/76 96 Mechanical Ventilator 30 98.2 12/13/17 23:24 50 19 30 12/13/17 22:05 132/67 12/13/17 21:30 52 18 30 12/13/17 20:00 97.9 61 28 120/53 98 Mechanical Ventilator 30 97.9 12/13/17 20:00 52 12/13/17 20:00 30 12/13/17 19:30 50 17 30 12/13/17 16:49 51 28 30 12/13/17 16:00 97.5 68 28 132/67 98 Mechanical Ventilator 28 97.5 12/13/17 16:00 30 12/13/17 16:00 48 12/13/17 15:11 56 20 30 Height (Feet): 5 Height (Inches): 8.00 Weight (Pounds): 421 General Appearance: no acute distress HEENT: normocephalic, atraumatic, anicteric, mucous membranes moist Respiratory/Chest: lungs clear, normal breath sounds, no respiratory distress, no accessory muscle use Cardiovascular: normal rate, regular rhythm, no gallop/murmur, no JVD Abdomen: normal bowel sounds, soft, non tender, no organomegaly, non distended Genitourinary: other - + vargas - urine clear Extremities: no cyanosis Skin: no rash Neurologic/Psychiatric: hand therapist II-XII grossly normal, alert, responsive Lymphatic: no neck adenopathy Musculoskeletal: no effusion Objective Chest x-ray - 12/04 - Comparison: One half hour earlier Findings: Interim endotracheal intubation, endotracheal tube in good position, tip projecting approximately 4 cm above the lucía. The heart is enlarged. Lungs and pleural spaces are clear. Impression: Satisfactory endotracheal intubation Other findings as noted Chest x-ray - 12/06 - A single view chest radiograph was obtained. Findings: Endotracheal tube and nasogastric tubes are in good position unchanged. Lung volumes remain low. Lungs are essentially clear. Heart is enlarged. Bones are unremarkable. IMPRESSION: No acute findings Chest x-ray - 12/08 - IMPRESSION: Right jugular Dillan catheter in good position. No pneumothorax. Mild interstitial edema suspected. 12/10 - chest x-ray - negative (noted) Microbiology Date/Time Source Procedure Growth Status 12/08/17 13:10 Blood Blood Culture - Final NO GROWTH AFTER 5 DAYS Complete 12/10/17 22:00 Sputum Gram Stain - Final Complete 12/10/17 22:00 Sputum Sputum Culture - Final NO GROWTH AFTER 48 HOURS Complete 12/06/17 12:40 Urine,Clean Catch Urine Culture - Final Tamia Tropicalis Tamia Albicans Complete 12/04/17 08:30 Rectum VRE Culture - Final Enterococcus Faecium - Vre Complete Laboratory Tests Test 12/14/17 09:15 White Blood Count 9.7 K/UL (4.8-10.8) Red Blood Count 3.69 M/UL (4.20-5.40) L Hemoglobin 10.8 G/DL (12.0-16.0) L Hematocrit 34.9 % (37.0-47.0) L Mean Corpuscular Volume 94 FL (80-99) Mean Corpuscular Hemoglobin 29.1 PG (27.0-31.0) Mean Corpuscular Hemoglobin Concent 30.8 G/DL (32.0-36.0) L Red Cell Distribution Width 15.2 % (11.6-14.8) H Platelet Count 293 K/UL (150-450) Mean Platelet Volume 7.6 FL (6.5-10.1) Neutrophils (%) (Auto) 49.4 % (45.0-75.0) Lymphocytes (%) (Auto) 37.0 % (20.0-45.0) Monocytes (%) (Auto) 11.6 % (1.0-10.0) H Eosinophils (%) (Auto) 1.1 % (0.0-3.0) Basophils (%) (Auto) 0.9 % (0.0-2.0) Sodium Level 141 MMOL/L (136-145) Potassium Level 3.4 MMOL/L (3.5-5.1) L Chloride Level 102 MMOL/L (98-107) Carbon Dioxide Level 31 MMOL/L (21-32) Anion Gap 8 mmol/L (5-15) Blood Urea Nitrogen 42 mg/dL (7-18) H Creatinine 2.8 MG/DL (0.55-1.30) H Estimat Glomerular Filtration Rate 21.0 mL/min (>60) Glucose Level 232 MG/DL (74-106) H Calcium Level 8.7 MG/DL (8.5-10.1) Phosphorus Level 4.2 MG/DL (2.5-4.9) Magnesium Level 1.5 MG/DL (1.8-2.4) L Total Bilirubin 0.5 MG/DL (0.2-1.0) Direct Bilirubin 0.3 MG/DL (0.0-0.3) Aspartate Amino Transf (AST/SGOT) 44 U/L (15-37) H Alanine Aminotransferase (ALT/SGPT) 57 U/L (12-78) Alkaline Phosphatase 156 U/L (46-116) H Total Protein 7.4 G/DL (6.4-8.2) Albumin 2.6 G/DL (3.4-5.0) L Current Medications Medications (Trade) Dose Ordered Sig/Felipe Route PRN Reason Start Time Stop Time Status Last Admin Dose Admin Acetaminophen (Tylenol) 650 mg Q4H PRN NG Mild Pain 12/11/17 17:00 01/10/18 16:59 12/12/17 04:23 Acetaminophen (Tylenol) 650 mg Q4H PRN ORAL Fever (temp>100.5F) 12/11/17 17:00 01/03/18 16:59 12/14/17 09:50 Albuterol/ Ipratropium (Albuterol/ Ipratropium) 3 ml Q4H PRN HHN sob 12/12/17 11:00 12/17/17 10:59 Allopurinol (Zyloprim) 100 mg DAILY ORAL 12/12/17 09:00 01/04/18 08:59 12/14/17 09:51 Clotrimazole (Lotrimin) 1 applic THREE TIMES A DAY TOPIC 12/11/17 18:00 01/08/18 08:59 12/14/17 14:25 Dextrose (Dextrose 50%) 25 ml STAT PRN IV Hypoglycemia 12/11/17 17:00 01/10/18 16:59 Dextrose (Dextrose 50%) 50 ml STAT PRN IV Hypoglycemia 12/11/17 17:00 01/10/18 16:59 Diphenhydramine HCl (Benadryl) 12.5 mg Q6H PRN IVP Itching 12/11/17 17:00 01/07/18 16:59 12/12/17 04:23 Heparin Sodium (Porcine) (Heparin 5000 units/ml) 5,000 units EVERY 12 HOURS SUBQ 12/11/17 21:00 01/03/18 20:59 12/14/17 09:54 Hydralazine HCl (Apresoline) 10 mg Q4H PRN IV sbp> 160 mmHg 12/11/17 17:30 01/08/18 17:29 Hydralazine HCl (Apresoline) 50 mg EVERY 8 HOURS NG 12/13/17 22:00 01/08/18 15:44 12/14/17 14:25 Insulin Aspart (NovoLOG) EVERY 6 HOURS SUBQ 12/11/17 18:00 01/04/18 11:29 12/14/17 14:24 Magnesium Sulfate 100 ml @ 100 mls/hr Q1H IVPB 12/14/17 15:00 12/14/17 18:59 Nitroglycerin (Ntg) 0.4 mg Q5M PRN SL Prn Chest Pain 12/11/17 17:00 01/03/18 16:59 Ondansetron HCl (Zofran) 4 mg Q6H PRN IVP Nausea & Vomiting 12/11/17 17:00 01/03/18 16:59 Pantoprazole (Protonix) 40 mg EVERY 12 HOURS IVP 12/13/17 21:00 01/12/18 20:59 12/14/17 09:51 Potassium Chloride 40 meq/ Sodium Chloride 570 ml @ 142.5 mls/ hr ONCE ONCE IVPB 12/14/17 16:00 12/14/17 19:59 JUNI ABDUL December 14, 2017 15:09
[2017-12-14 16:00] VITALS: BP 137/66
[2017-12-14] MEDS ORDERED: Potassium Chloride 40 MEQ in Sodium Chloride 500ML 550 ML IVPB ONE (16:00)
--- NOTE | 2017-12-14 17:02 | Cardiac Electrophysiology PN ---
Assessment/Plan Assessment/Plan 1. Sinus bradycardia with no evidence of heart block. No further savannah overnight Watch the patient on telemetry. Asymptomatic. 2. Respiratory failure. S/P tracheostomy 3. Hypertension, on hydralazine to 50 q 8hr. 4. Morbid obesity. 5. History of supraventricular tachycardia. 6. Elevated liver enzymes. 7. Renal failure. 8. Passed swallow eval DW RN Subjective Subjective Alert in NAD.No further savannah and asymptomatic. Objective Last 24 Hour Vital Signs Date Time Temp Pulse Resp B/P (MAP) Pulse Ox O2 Delivery O2 Flow Rate FiO2 12/14/17 14:25 135/73 12/14/17 12:00 98.4 61 21 135/73 100 Mechanical Ventilator 30 98.4 12/14/17 12:00 56 12/14/17 10:31 55 24 30 12/14/17 10:28 55 24 Mechanical Ventilator 30 12/14/17 08:54 100 12/14/17 08:48 65 18 30 12/14/17 08:00 98.2 65 21 134/72 99 Mechanical Ventilator 30 98.2 12/14/17 08:00 67 12/14/17 08:00 30 12/14/17 07:21 45 14 30 12/14/17 06:25 148/76 12/14/17 05:30 58 19 30 12/14/17 04:00 43 12/14/17 04:00 97.9 78 14 147/69 96 Mechanical Ventilator 30 97.9 12/14/17 04:00 30 12/14/17 03:30 50 18 30 12/14/17 01:30 51 18 30 12/14/17 00:00 30 12/14/17 00:00 45 12/14/17 00:00 98.2 50 24 148/76 96 Mechanical Ventilator 30 98.2 12/13/17 23:24 50 19 30 12/13/17 22:05 132/67 12/13/17 21:30 52 18 30 12/13/17 20:00 97.9 61 28 120/53 98 Mechanical Ventilator 30 97.9 12/13/17 20:00 52 12/13/17 20:00 30 12/13/17 19:30 50 17 30 Intake and Output 12/13/17 12/14/17 19:00 07:00 Output Total 1000 ml Balance -1000 ml Output Urine Total 1000 ml # Bowel Movements 1 Laboratory Tests Test 12/14/17 09:15 12/14/17 14:50 White Blood Count 9.7 K/UL (4.8-10.8) Red Blood Count 3.69 M/UL (4.20-5.40) L Hemoglobin 10.8 G/DL (12.0-16.0) L Hematocrit 34.9 % (37.0-47.0) L Mean Corpuscular Volume 94 FL (80-99) Mean Corpuscular Hemoglobin 29.1 PG (27.0-31.0) Mean Corpuscular Hemoglobin Concent 30.8 G/DL (32.0-36.0) L Red Cell Distribution Width 15.2 % (11.6-14.8) H Platelet Count 293 K/UL (150-450) Mean Platelet Volume 7.6 FL (6.5-10.1) Neutrophils (%) (Auto) 49.4 % (45.0-75.0) Lymphocytes (%) (Auto) 37.0 % (20.0-45.0) Monocytes (%) (Auto) 11.6 % (1.0-10.0) H Eosinophils (%) (Auto) 1.1 % (0.0-3.0) Basophils (%) (Auto) 0.9 % (0.0-2.0) Sodium Level 141 MMOL/L (136-145) Potassium Level 3.4 MMOL/L (3.5-5.1) L Chloride Level 102 MMOL/L (98-107) Carbon Dioxide Level 31 MMOL/L (21-32) Anion Gap 8 mmol/L (5-15) Blood Urea Nitrogen 42 mg/dL (7-18) H Creatinine 2.8 MG/DL (0.55-1.30) H Estimat Glomerular Filtration Rate 21.0 mL/min (>60) Glucose Level 232 MG/DL (74-106) H Calcium Level 8.7 MG/DL (8.5-10.1) Phosphorus Level 4.2 MG/DL (2.5-4.9) Magnesium Level 1.5 MG/DL (1.8-2.4) L Total Bilirubin 0.5 MG/DL (0.2-1.0) Direct Bilirubin 0.3 MG/DL (0.0-0.3) Aspartate Amino Transf (AST/SGOT) 44 U/L (15-37) H Alanine Aminotransferase (ALT/SGPT) 57 U/L (12-78) Alkaline Phosphatase 156 U/L (46-116) H Total Protein 7.4 G/DL (6.4-8.2) Albumin 2.6 G/DL (3.4-5.0) L Arterial Blood pH 7.410 (7.350-7.450) Arterial Blood Partial Pressure CO2 49.8 mmHg (35.0-45.0) H Arterial Blood Partial Pressure O2 110.8 mmHg (75.0-100.0) H Arterial Blood HCO3 31.5 mmol/L (22.0-26.0) H Arterial Blood Oxygen Saturation 97.7 % (92.0-98.0) Arterial Blood Base Excess 6.0 Doroteo Test Positive Objective HEAD AND NECK: No JVD. S/P Tracheostomy LUNGS: Coarse rhonchi. CARDIOVASCULAR: Bradycardic S1 and S2 . ABDOMEN: Morbidly obese. EXTREMITIES: 1+ pitting edema. Melvin Bejarano MD December 14, 2017 17:02
[2017-12-14 20:00] VITALS: BP 144/89
[2017-12-14] MEDS: Acetaminophen 650mg/20.3ml NG PRN (22:07)
[2017-12-15] VITALS: BP 142/72
[2017-12-15 04:00] VITALS: BP 154/76
[2017-12-15 04:33] LABS: BASOPHILS % (AUTO) 0.7 % (0.0-2.0); HEMATOCRIT 33.7 % (37.0-47.0); HEMOGLOBIN 10.7 G/DL (12.0-16.0); LYMPHOCYTES % (AUTO) 39.9 % (20.0-45.0); MEAN CORPUSCULAR VOLUME 94 FL (80-99); MONOCYTES % (AUTO) 10.3 % (1.0-10.0); NEUTROPHILS % (AUTO) 48.2 % (45.0-75.0); PLATELET COUNT 303 K/UL (150-450); RED BLOOD COUNT 3.59 M/UL (4.20-5.40); RED CELL DISTRIBUTION WIDTH 15.5 % (11.6-14.8); WHITE BLOOD COUNT 9.9 K/UL (4.8-10.8)
[2017-12-15 04:54] LABS: ALANINE AMINOTRANSFERASE 50 U/L (12-78); ALBUMIN 2.5 G/DL (3.4-5.0); ALBUMIN/GLOBULIN RATIO 0.5 (1.0-2.7); ALKALINE PHOSPHATASE 146 U/L (46-116); ANION GAP 4 mmol/L (5-15); ASPARTATE AMINO TRANSFERASE 37 U/L (15-37); BILIRUBIN,TOTAL 0.4 MG/DL (0.2-1.0); BLOOD UREA NITROGEN 43 mg/dL (7-18); CALCIUM 8.6 MG/DL (8.5-10.1); CARBON DIOXIDE 34 MMOL/L (21-32); CHLORIDE 104 MMOL/L (98-107); CREATININE 2.2 MG/DL (0.55-1.30); PHOSPHORUS 4.4 MG/DL (2.5-4.9); POTASSIUM 3.8 MMOL/L (3.5-5.1); SODIUM 142 MMOL/L (136-145)
[2017-12-15] MEDS: HydrALAZINE 50mg tab NG SCH ×3 (05:22→21:34)
[2017-12-15] MEDS: NovoLOG Insulin Flexpen SUBQ SCH ×3 (05:24→18:58)
--- NOTE | 2017-12-15 07:24 | General Progress Note ---
Assessment/Plan Assessment/Plan #. Coagulopathy, potentially secondary to liver problem, liver disease. --> Currently off of anticoagulation, currently inr has improved --> Administer Vit K in case patient bleeds, or inr increases #. Anemia due to underlying chronic disease. --> Continue to closely monitor. Anemia workup has been reviewed. --> Blood transfusion not required unless symptomatic or hgb <7 --> Hgb has been stable. #. Leukocytosis, potentially secondary to infection. --> Worsened again. Monitor for improvement. #. Transaminitis as well as elevated --> Continue to closely monitor for improvement. #. Acute tubular necrosis with elevated creatinine. Continue to closely monitor. #. Obesity hypoventilation syndrome. #. Respiratory failure, status post intubation. --> s/p tracheostomy #. Acute kidney injury. The patient's creatinine within normal limits on admission, potentially secondary to shock. #. Bradycardia. Subjective Date patient seen: December 14, 2017 Constitutional: Denies: no symptoms, chills, diaphoresis, fever, malaise, weakness, other HEENT: Denies: no symptoms, eye pain, blurred vision, tearing, double vision, ear pain, ear discharge, nose pain, nose congestion, throat pain, throat swelling, mouth pain, mouth swelling, other Cardiovascular: Denies: no symptoms, chest pain, edema, irregular heart rate, lightheadedness, palpitations, syncope, other Respiratory: Denies: no symptoms, cough, orthopnea, shortness of breath, SOB with excertion, SOB at rest, sputum, stridor, wheezing, other Gastrointestinal/Abdominal: Denies: no symptoms, abdomen distended, abdominal pain, black stools, tarry stools, blood in stool, constipated, diarrhea, difficulty swallowing, nausea, poor appetite, poor fluid intake, rectal bleeding , vomiting, other Genitourinary: Denies: no symptoms, burning, discharge, frequency, flank pain, hematuria, incontinence, pain, urgency, other Neurologic/Psychiatric: Denies: no symptoms, anxiety, depressed, emotional problems, headache, numbness, paresthesia, pre-existing deficit, seizure, tingling, tremors, weakness, other Endocrine: Denies: no symptoms, excessive sweating, flushing, intolerance to cold, intolerance to heat, increased hunger, increased thirst, increased urine, unexplained weight gain, unexplained weight loss, other Hematologic/Lymphatic: Denies: no symptoms, anemia, easy bleeding, easy bruising, other Allergies: Coded Allergies: ASPARTAME (Verified Allergy, Unknown, 11/30/17) Headache Subjective H/H stable. On vent. no fevers or chills, seen by ID Objective Last 24 Hour Vital Signs Date Time Temp Pulse Resp B/P (MAP) Pulse Ox O2 Delivery O2 Flow Rate FiO2 12/15/17 05:22 154/76 12/15/17 05:12 49 24 30 12/15/17 04:00 43 12/15/17 04:00 30 12/15/17 04:00 98.2 56 21 154/76 98 Mechanical Ventilator 30 98.2 12/15/17 03:02 66 24 30 12/15/17 00:50 60 22 30 12/15/17 00:00 51 12/15/17 00:00 98.2 53 22 142/72 99 Mechanical Ventilator 30 98.2 12/15/17 00:00 30 12/14/17 23:49 59 22 30 12/14/17 22:03 144/89 12/14/17 21:33 61 22 30 12/14/17 20:00 30 12/14/17 20:00 75 12/14/17 20:00 98.1 74 22 144/89 98 Mechanical Ventilator 30 98.1 12/14/17 16:00 30 12/14/17 16:00 98.5 68 20 137/66 99 T-piece 30 98.5 12/14/17 16:00 76 12/14/17 14:25 135/73 12/14/17 12:00 98.4 61 21 135/73 100 Mechanical Ventilator 30 98.4 12/14/17 12:00 56 12/14/17 10:31 55 24 30 12/14/17 10:28 55 24 Mechanical Ventilator 30 12/14/17 08:54 100 12/14/17 08:48 65 18 30 12/14/17 08:00 98.2 65 21 134/72 99 Mechanical Ventilator 30 98.2 12/14/17 08:00 67 12/14/17 08:00 30 12/14/17 07:21 45 14 30 Intake and Output 12/14/17 12/15/17 19:00 07:00 Intake Total 100 ml 275 ml Output Total 800 ml 1000 ml Balance -700 ml -725 ml Intake Oral 75 ml IV Total 100 ml 200 ml Output Urine Total 800 ml 1000 ml # Bowel Movements 2 Laboratory Tests 12/14/17 09:15: White Blood Count 9.7, Red Blood Count 3.69L, Hemoglobin 10.8L, Hematocrit 34.9L , Mean Corpuscular Volume 94, Mean Corpuscular Hemoglobin 29.1, Mean Corpuscular Hemoglobin Concent 30.8L, Red Cell Distribution Width 15.2H, Platelet Count 293, Mean Platelet Volume 7.6, Neutrophils (%) (Auto) 49.4, Lymphocytes (%) (Auto) 37.0, Monocytes (%) (Auto) 11.6H, Eosinophils (%) (Auto) 1.1, Basophils (%) (Auto) 0.9, Sodium Level 141, Potassium Level 3.4L, Chloride Level 102, Carbon Dioxide Level 31, Anion Gap 8, Blood Urea Nitrogen 42H, Creatinine 2.8H, Estimat Glomerular Filtration Rate 21.0, Glucose Level 232H, Calcium Level 8.7, Phosphorus Level 4.2, Magnesium Level 1.5L, Total Bilirubin 0.5, Direct Bilirubin 0.3, Aspartate Amino Transf (AST/SGOT) 44H, Alanine Aminotransferase (ALT/SGPT) 57, Alkaline Phosphatase 156H, Total Protein 7.4, Albumin 2.6L 12/14/17 14:50: Arterial Blood pH 7.410, Arterial Blood Partial Pressure CO2 49.8H, Arterial Blood Partial Pressure O2 110.8H, Arterial Blood HCO3 31.5H, Arterial Blood Oxygen Saturation 97.7, Arterial Blood Base Excess 6.0, Doroteo Test Positive 12/15/17 03:35: White Blood Count 9.9, Red Blood Count 3.59L, Hemoglobin 10.7L, Hematocrit 33.7L , Mean Corpuscular Volume 94, Mean Corpuscular Hemoglobin 29.9, Mean Corpuscular Hemoglobin Concent 31.8L, Red Cell Distribution Width 15.5H, Platelet Count 303, Mean Platelet Volume 7.2, Neutrophils (%) (Auto) 48.2, Lymphocytes (%) (Auto) 39.9, Monocytes (%) (Auto) 10.3H, Eosinophils (%) (Auto) 1.0, Basophils (%) (Auto) 0.7, Sodium Level 142, Potassium Level 3.8, Chloride Level 104, Carbon Dioxide Level 34H, Anion Gap 4L, Blood Urea Nitrogen 43H, Creatinine 2.2H, Estimat Glomerular Filtration Rate 27.8, Glucose Level 196H, Calcium Level 8.6, Phosphorus Level 4.4, Magnesium Level 2.1, Total Bilirubin 0.4, Aspartate Amino Transf (AST/SGOT) 37, Alanine Aminotransferase (ALT/SGPT) 50, Alkaline Phosphatase 146H, Total Protein 7.2, Albumin 2.5L, Globulin 4.7, Albumin/Globulin Ratio 0.5L Height (Feet): 5 Height (Inches): 8.00 Weight (Pounds): 421 General Appearance: no apparent distress EENT: TMs normal Neck: supple Cardiovascular: regular rhythm Respiratory/Chest: no respiratory distress Abdomen: non tender Extremities: non-tender Edema: no edema noted Leg (L), no edema noted Leg (R) Edema: mild edema Neurologic: alert Skin: warm/dry Jem Palmer MD December 15, 2017 07:24
[2017-12-15 08:00] VITALS: BP 151/78
[2017-12-15] MEDS: Pantoprazole Inj IVP SCH ×2 (08:56→21:33)
[2017-12-15] MEDS: Allopurinol 100mg Tab ORAL SCH (08:57)
[2017-12-15] MEDS: Heparin 5000 units/ml inj SUBQ SCH ×2 (08:59→21:36)
--- NOTE | 2017-12-15 10:19 | Pulmonology Progress Note ---
Assessment/Plan Problems: (1) Acute respiratory failure with hypoxia and hypercapnia (2) Acute renal failure (ARF) (3) Morbid obesity (4) DM2 (diabetes mellitus, type 2) (5) HTN (hypertension) Respiratory: monitor respiratory rate, adjust FIO2, CXR Cardiac: continue to monitor HR/BP Renal: F/U I&O, keep IV fluid Infectious Disease: check cultures Gastrointestinal: continue feedings/current rate Endocrine: monitor blood sugar, check TSH, continue sliding scale insulin Hematologic: monitor H/H, transfuse if hgb<8.5 Neurologic: PRN Ativan, PRN Morphine, keep patient comfortable Prophylaxis: Protonix, Heparin Time Spent (Minutes): 40 Notes Reviewed: cardio Discussed with: nurses, consultants, embedded case manager Subjective ROS Limited/Unobtainable: No Allergies: Coded Allergies: ASPARTAME (Verified Allergy, Unknown, 11/30/17) Headache Objective Last 24 Hour Vital Signs Date Time Temp Pulse Resp B/P (MAP) Pulse Ox O2 Delivery O2 Flow Rate FiO2 12/15/17 09:55 100 12/15/17 09:25 51 23 30 12/15/17 08:00 98.0 68 26 151/78 100 Mechanical Ventilator 30 98.0 12/15/17 08:00 30 12/15/17 07:29 66 30 30 12/15/17 05:22 154/76 12/15/17 05:12 49 24 30 12/15/17 04:00 43 12/15/17 04:00 30 12/15/17 04:00 98.2 56 21 154/76 98 Mechanical Ventilator 30 98.2 12/15/17 03:02 66 24 30 12/15/17 00:50 60 22 30 12/15/17 00:00 51 12/15/17 00:00 98.2 53 22 142/72 99 Mechanical Ventilator 30 98.2 12/15/17 00:00 30 12/14/17 23:49 59 22 30 12/14/17 22:03 144/89 12/14/17 21:33 61 22 30 12/14/17 20:00 30 12/14/17 20:00 75 12/14/17 20:00 98.1 74 22 144/89 98 Mechanical Ventilator 30 98.1 12/14/17 16:00 30 12/14/17 16:00 98.5 68 20 137/66 99 T-piece 30 98.5 12/14/17 16:00 76 12/14/17 14:25 135/73 12/14/17 12:00 98.4 61 21 135/73 100 Mechanical Ventilator 30 98.4 12/14/17 12:00 56 12/14/17 10:31 55 24 30 12/14/17 10:28 55 24 Mechanical Ventilator 30 Intake and Output 12/14/17 12/15/17 19:00 07:00 Intake Total 100 ml 275 ml Output Total 800 ml 1000 ml Balance -700 ml -725 ml Intake Oral 75 ml IV Total 100 ml 200 ml Output Urine Total 800 ml 1000 ml # Bowel Movements 2 General Appearance: WD/WN HEENT: status post trach Respiratory/Chest: chest wall non-tender, lungs clear Breasts: no masses Cardiovascular: normal peripheral pulses Abdomen: normal bowel sounds, soft, non tender Extremities: no clubbing Skin: no rash Neurologic/Psychiatric: pigment presser II-XII grossly normal, no motor/sensory deficits Lymphatic: no neck adenopathy Laboratory Tests 12/14/17 14:50: Arterial Blood pH 7.410, Arterial Blood Partial Pressure CO2 49.8H, Arterial Blood Partial Pressure O2 110.8H, Arterial Blood HCO3 31.5H, Arterial Blood Oxygen Saturation 97.7, Arterial Blood Base Excess 6.0, Doroteo Test Positive 12/15/17 03:35: White Blood Count 9.9, Red Blood Count 3.59L, Hemoglobin 10.7L, Hematocrit 33.7L , Mean Corpuscular Volume 94, Mean Corpuscular Hemoglobin 29.9, Mean Corpuscular Hemoglobin Concent 31.8L, Red Cell Distribution Width 15.5H, Platelet Count 303, Mean Platelet Volume 7.2, Neutrophils (%) (Auto) 48.2, Lymphocytes (%) (Auto) 39.9, Monocytes (%) (Auto) 10.3H, Eosinophils (%) (Auto) 1.0, Basophils (%) (Auto) 0.7, Sodium Level 142, Potassium Level 3.8, Chloride Level 104, Carbon Dioxide Level 34H, Anion Gap 4L, Blood Urea Nitrogen 43H, Creatinine 2.2H, Estimat Glomerular Filtration Rate 27.8, Glucose Level 196H, Calcium Level 8.6, Phosphorus Level 4.4, Magnesium Level 2.1, Total Bilirubin 0.4, Aspartate Amino Transf (AST/SGOT) 37, Alanine Aminotransferase (ALT/SGPT) 50, Alkaline Phosphatase 146H, Total Protein 7.2, Albumin 2.5L, Globulin 4.7, Albumin/Globulin Ratio 0.5L Current Medications Medications (Trade) Dose Ordered Sig/Felipe Route PRN Reason Start Time Stop Time Status Last Admin Dose Admin Acetaminophen (Tylenol) 650 mg Q4H PRN NG Mild Pain 12/11/17 17:00 01/10/18 16:59 12/14/17 22:07 Acetaminophen (Tylenol) 650 mg Q4H PRN ORAL Fever (temp>100.5F) 12/11/17 17:00 01/03/18 16:59 12/14/17 09:50 Albuterol/ Ipratropium (Albuterol/ Ipratropium) 3 ml Q4H PRN HHN sob 12/12/17 11:00 12/17/17 10:59 Allopurinol (Zyloprim) 100 mg DAILY ORAL 12/12/17 09:00 01/04/18 08:59 12/15/17 08:57 Clotrimazole (Lotrimin) 1 applic THREE TIMES A DAY TOPIC 12/11/17 18:00 01/08/18 08:59 12/15/17 08:57 Dextrose (Dextrose 50%) 25 ml STAT PRN IV Hypoglycemia 12/11/17 17:00 01/10/18 16:59 Dextrose (Dextrose 50%) 50 ml STAT PRN IV Hypoglycemia 12/11/17 17:00 01/10/18 16:59 Diphenhydramine HCl (Benadryl) 12.5 mg Q6H PRN IVP Itching 12/11/17 17:00 01/07/18 16:59 12/12/17 04:23 Heparin Sodium (Porcine) (Heparin 5000 units/ml) 5,000 units EVERY 12 HOURS SUBQ 12/11/17 21:00 01/03/18 20:59 12/15/17 08:59 Hydralazine HCl (Apresoline) 10 mg Q4H PRN IV sbp> 160 mmHg 12/11/17 17:30 01/08/18 17:29 Hydralazine HCl (Apresoline) 50 mg EVERY 8 HOURS NG 12/13/17 22:00 01/08/18 15:44 12/15/17 05:22 Insulin Aspart (NovoLOG) EVERY 6 HOURS SUBQ 12/11/17 18:00 01/04/18 11:29 12/15/17 05:24 Nitroglycerin (Ntg) 0.4 mg Q5M PRN SL Prn Chest Pain 12/11/17 17:00 01/03/18 16:59 Ondansetron HCl (Zofran) 4 mg Q6H PRN IVP Nausea & Vomiting 12/11/17 17:00 01/03/18 16:59 Pantoprazole (Protonix) 40 mg EVERY 12 HOURS IVP 12/13/17 21:00 01/12/18 20:59 12/15/17 08:56 Yariel Malone MD December 15, 2017 10:19
[2017-12-15 12:00] VITALS: BP 156/81
--- NOTE | 2017-12-15 15:13 | Nephrology Progress Note ---
Assessment/Plan Problem List: (1) Acute renal failure (ARF) (2) Acute respiratory failure (3) Acute on chronic diastolic (congestive) heart failure (4) Elevated liver enzymes Assessment - Acute & chronic respiratory failure, - Bacteremia - ATN (acute tubular necrosis), ARF - Acute encephalopathy - Aspiration pnemonia vs HCAP - Likely obesity hypoventilation syndrome - Elevated liver enzymes Plan Acute renal failure, resolving HD last 12/11 low BP resolved resp failure , intubated, trached, resp management obese DC Hydrocortisone monitor renal parameters, Cr lowerin without HD Up hydralazine dose Subjective ROS Limited/Unobtainable: Yes Objective Objective Last 24 Hour Vital Signs Date Time Temp Pulse Resp B/P (MAP) Pulse Ox O2 Delivery O2 Flow Rate FiO2 12/15/17 14:10 151/78 12/15/17 14:10 98.0 12/15/17 12:14 96 Trach Collar 8.0 30 12/15/17 12:00 98.2 57 25 156/81 99 Trach Collar 30 98.2 12/15/17 12:00 8.0 12/15/17 11:55 66 12/15/17 11:45 Trach Collar 8.0 30 12/15/17 11:03 52 22 30 12/15/17 09:55 100 12/15/17 09:25 51 23 30 12/15/17 08:00 98.0 68 26 151/78 100 Mechanical Ventilator 30 98.0 12/15/17 08:00 30 12/15/17 07:59 60 12/15/17 07:29 66 30 30 12/15/17 05:22 154/76 12/15/17 05:12 49 24 30 12/15/17 04:00 43 12/15/17 04:00 30 12/15/17 04:00 98.2 56 21 154/76 98 Mechanical Ventilator 30 98.2 12/15/17 03:02 66 24 30 12/15/17 00:50 60 22 30 12/15/17 00:00 51 12/15/17 00:00 98.2 53 22 142/72 99 Mechanical Ventilator 30 98.2 12/15/17 00:00 30 12/14/17 23:49 59 22 30 12/14/17 22:03 144/89 12/14/17 21:33 61 22 30 12/14/17 20:00 30 12/14/17 20:00 75 12/14/17 20:00 98.1 74 22 144/89 98 Mechanical Ventilator 30 98.1 12/14/17 16:00 30 12/14/17 16:00 98.5 68 20 137/66 99 T-piece 30 98.5 12/14/17 16:00 76 Intake and Output 12/14/17 12/15/17 19:00 07:00 Intake Total 100 ml 275 ml Output Total 800 ml 1000 ml Balance -700 ml -725 ml Intake Oral 75 ml IV Total 100 ml 200 ml Output Urine Total 800 ml 1000 ml # Bowel Movements 2 Laboratory Tests 12/15/17 03:35: White Blood Count 9.9, Red Blood Count 3.59L, Hemoglobin 10.7L, Hematocrit 33.7L , Mean Corpuscular Volume 94, Mean Corpuscular Hemoglobin 29.9, Mean Corpuscular Hemoglobin Concent 31.8L, Red Cell Distribution Width 15.5H, Platelet Count 303, Mean Platelet Volume 7.2, Neutrophils (%) (Auto) 48.2, Lymphocytes (%) (Auto) 39.9, Monocytes (%) (Auto) 10.3H, Eosinophils (%) (Auto) 1.0, Basophils (%) (Auto) 0.7, Sodium Level 142, Potassium Level 3.8, Chloride Level 104, Carbon Dioxide Level 34H, Anion Gap 4L, Blood Urea Nitrogen 43H, Creatinine 2.2H, Estimat Glomerular Filtration Rate 27.8, Glucose Level 196H, Calcium Level 8.6, Phosphorus Level 4.4, Magnesium Level 2.1, Total Bilirubin 0.4, Aspartate Amino Transf (AST/SGOT) 37, Alanine Aminotransferase (ALT/SGPT) 50, Alkaline Phosphatase 146H, Total Protein 7.2, Albumin 2.5L, Globulin 4.7, Albumin/Globulin Ratio 0.5L Height (Feet): 5 Height (Inches): 8.00 Weight (Pounds): 421 General Appearance: no apparent distress Cardiovascular: bradycardia Respiratory/Chest: decreased breath sounds Abdomen: other - obese Objective no change AGUSTIN CONTRERAS December 15, 2017 15:13
[2017-12-15 16:00] VITALS: BP 157/74
--- NOTE | 2017-12-15 17:13 | General Progress Note ---
Assessment/Plan Problem List: (1) Acute toxic metabolic encephalopathy (2) Acute respiratory failure with hypoxia and hypercapnia ICD Codes: J96.01 - Acute respiratory failure with hypoxia; J96.02 - Acute respiratory failure with hypercapnia SNOMED: 34645955, 11233881, 450636241 (3) Likely obesity hypoventilation syndrome (4) Severe sepsis ICD Codes: A41.9 - Sepsis, unspecified organism; R65.20 - Severe sepsis without septic shock SNOMED: 32747220 (5) KASHIF (acute kidney injury) ICD Codes: N17.9 - Acute kidney failure, unspecified SNOMED: 20001832 (6) ATN (acute tubular necrosis) ICD Codes: N17.0 - Acute kidney failure with tubular necrosis SNOMED: 13827060 (7) Elevated liver enzymes ICD Codes: R74.8 - Abnormal levels of other serum enzymes SNOMED: 044373710 (8) Aspiration pnemonia vs HCAP (9) UTI (urinary tract infection) ICD Codes: N39.0 - Urinary tract infection, site not specified SNOMED: 32933834 Qualifiers: Qualified Codes: N39.0 - Urinary tract infection, site not specified (10) Morbid obesity ICD Codes: E66.01 - Morbid (severe) obesity due to excess calories SNOMED: 530121296, 17410390787851 (11) Chronic diastolic (congestive) heart failure ICD Codes: I50.32 - Chronic diastolic (congestive) heart failure SNOMED: 93722047, 318680316 (12) DM2 (diabetes mellitus, type 2) ICD Codes: E11.9 - Type 2 diabetes mellitus without complications SNOMED: 41284649 (13) Hypertension ICD Codes: I10 - Essential (primary) hypertension SNOMED: 09033442 (14) Fatty liver ICD Codes: K76.0 - Fatty (change of) liver, not elsewhere classified SNOMED: 470263245 (15) GERD (gastroesophageal reflux disease) ICD Codes: K21.9 - Gastro-esophageal reflux disease without esophagitis SNOMED: 800832698 (16) Asthma ICD Codes: J45.909 - Unspecified asthma, uncomplicated SNOMED: 673145020 (17) H/O supraventricular tachycardia ICD Codes: Z86.79 - Personal history of other diseases of the circulatory system SNOMED: 233583373303492 Assessment/Plan Pulm/critical care consulted Wean vent as tolerated Daily SBTs This is pt's 3rd intubation in less than 6 months. D/w pulm re likely plan for tracheostomy. D/w pt and son. Surgery consulted s/p tracheostomy on 12/10/17 Currently not requiring pressors. Goal MAP 65 and above Cardiology consulted given bradycardia. Likely 2/2 midodrine Hold midodrine s/p steroids ID consulted s/p empiric linezolid, cefepime and flagyl per ID (abx d/c'd 12/13/17) Repeat blood cx show ngtd Nephrology consulted given KASHIF HD line placed and started on HD on 12/07/17. Last HD 12/12. Hold HD for now per renal Strict I/O's Trend CBC, CMP MANAGER CASE eval ordered--soft diet as tolerated Pass-donny speaking valve trial Pain control, bowel regimen Supportive care PPI CM consulted for d/c plan to subacute facility vs LTACH such as [facility] DVT Prophylaxis: SCD, HSQ Code Status: Full Hospital Classification Declaration: Based on this initial evaluation, and depending on the patient's clinical course, I anticipate that this patient will require hospitalization for 3-4 days for acute respiratory failure, sepsis and close respiratory/hemodynamic monitoring. Disposition: Once the patient is stable to leave the hospital, I anticipate the patient will likely be discharged to the following environment: subacute SNF vs LTACH Plan outlined above discussed with patient/family, pulm/critical care, ID regarding mgmt and dispo. D/w pulm re weaning vent. D/w ID re monitor off abx. D /w renal re monitor off HD Time of note may not reflect time of encounter. Subjective Date patient seen: December 15, 2017 Time patient seen: 17:13 ROS Limited/Unobtainable: No Allergies: Coded Allergies: ASPARTAME (Verified Allergy, Unknown, 11/30/17) Headache Subjective No acute o/n events s/p tracheostomy POD#4 SCr downtrending. UOP improving Lasting HD 5/5 HR stale at 50-60s Pt doing well. Awake, alert. Passed swallow eval--tolerating PO. Denies f/c, n/v , d/c, chest pain. SOB, cough stable Objective Last 24 Hour Vital Signs Date Time Temp Pulse Resp B/P (MAP) Pulse Ox O2 Delivery O2 Flow Rate FiO2 12/15/17 16:00 8.0 12/15/17 15:31 98.0 12/15/17 14:10 151/78 12/15/17 14:10 98.0 12/15/17 12:14 96 Trach Collar 8.0 30 12/15/17 12:00 98.2 57 25 156/81 99 Trach Collar 30 98.2 12/15/17 12:00 8.0 12/15/17 11:55 66 12/15/17 11:45 Trach Collar 8.0 30 12/15/17 11:03 52 22 30 12/15/17 09:55 100 12/15/17 09:25 51 23 30 12/15/17 08:00 98.0 68 26 151/78 100 Mechanical Ventilator 30 98.0 12/15/17 08:00 30 12/15/17 07:59 60 12/15/17 07:29 66 30 30 12/15/17 05:22 154/76 12/15/17 05:12 49 24 30 12/15/17 04:00 43 12/15/17 04:00 30 12/15/17 04:00 98.2 56 21 154/76 98 Mechanical Ventilator 30 98.2 12/15/17 03:02 66 24 30 12/15/17 00:50 60 22 30 12/15/17 00:00 51 12/15/17 00:00 98.2 53 22 142/72 99 Mechanical Ventilator 30 98.2 12/15/17 00:00 30 12/14/17 23:49 59 22 30 12/14/17 22:03 144/89 12/14/17 21:33 61 22 30 12/14/17 20:00 30 12/14/17 20:00 75 12/14/17 20:00 98.1 74 22 144/89 98 Mechanical Ventilator 30 98.1 Intake and Output 12/14/17 12/15/17 19:00 07:00 Intake Total 100 ml 275 ml Output Total 800 ml 1000 ml Balance -700 ml -725 ml Intake Oral 75 ml IV Total 100 ml 200 ml Output Urine Total 800 ml 1000 ml # Bowel Movements 2 Laboratory Tests 12/15/17 03:35: White Blood Count 9.9, Red Blood Count 3.59L, Hemoglobin 10.7L, Hematocrit 33.7L , Mean Corpuscular Volume 94, Mean Corpuscular Hemoglobin 29.9, Mean Corpuscular Hemoglobin Concent 31.8L, Red Cell Distribution Width 15.5H, Platelet Count 303, Mean Platelet Volume 7.2, Neutrophils (%) (Auto) 48.2, Lymphocytes (%) (Auto) 39.9, Monocytes (%) (Auto) 10.3H, Eosinophils (%) (Auto) 1.0, Basophils (%) (Auto) 0.7, Sodium Level 142, Potassium Level 3.8, Chloride Level 104, Carbon Dioxide Level 34H, Anion Gap 4L, Blood Urea Nitrogen 43H, Creatinine 2.2H, Estimat Glomerular Filtration Rate 27.8, Glucose Level 196H, Calcium Level 8.6, Phosphorus Level 4.4, Magnesium Level 2.1, Total Bilirubin 0.4, Aspartate Amino Transf (AST/SGOT) 37, Alanine Aminotransferase (ALT/SGPT) 50, Alkaline Phosphatase 146H, Total Protein 7.2, Albumin 2.5L, Globulin 4.7, Albumin/Globulin Ratio 0.5L Height (Feet): 5 Height (Inches): 8.00 Weight (Pounds): 421 Objective General: awake, alert, NAD, morbidly obese Head: normocephalic, without obvious abnormality, atraumatic Eyes: conjunctivae/corneas clear. PERRL, EOM's intact Throat: lips, mucosa, and tongue normal. MMM Neck: supple, symmetrical, trachea midline, +tracheostomy c/d/i Lungs:+rhonchi b/l Heart: regular rate and rhythm, S1, S2 normal, no murmur, click, rub or gallop Abdomen: soft, non-tender, non-distended, bowel sounds normal Extremities: extremities normal, atraumatic, no cyanosis or edema Pulses: 2+ and symmetric Skin: skin color, texture, turgor normal; no rashes or lesions Neurologic: sedated Cassie Bolivar M.D. December 15, 2017 17:13
--- NOTE | 2017-12-15 18:02 | General Progress Note ---
Assessment/Plan Problem List: (1) Acute toxic metabolic encephalopathy (2) Acute respiratory failure with hypoxia and hypercapnia ICD Codes: J96.01 - Acute respiratory failure with hypoxia; J96.02 - Acute respiratory failure with hypercapnia SNOMED: 91066072, 61859337, 891984327 (3) Likely obesity hypoventilation syndrome (4) Severe sepsis ICD Codes: A41.9 - Sepsis, unspecified organism; R65.20 - Severe sepsis without septic shock SNOMED: 78604308 (5) KASHIF (acute kidney injury) ICD Codes: N17.9 - Acute kidney failure, unspecified SNOMED: 71283211 (6) ATN (acute tubular necrosis) ICD Codes: N17.0 - Acute kidney failure with tubular necrosis SNOMED: 08823378 (7) Elevated liver enzymes ICD Codes: R74.8 - Abnormal levels of other serum enzymes SNOMED: 487942354 (8) Aspiration pnemonia vs HCAP (9) UTI (urinary tract infection) ICD Codes: N39.0 - Urinary tract infection, site not specified SNOMED: 22336272 Qualifiers: Qualified Codes: N39.0 - Urinary tract infection, site not specified (10) Morbid obesity ICD Codes: E66.01 - Morbid (severe) obesity due to excess calories SNOMED: 820282108, 79028663996686 (11) Chronic diastolic (congestive) heart failure ICD Codes: I50.32 - Chronic diastolic (congestive) heart failure SNOMED: 79787849, 409690002 (12) DM2 (diabetes mellitus, type 2) ICD Codes: E11.9 - Type 2 diabetes mellitus without complications SNOMED: 82336246 (13) Hypertension ICD Codes: I10 - Essential (primary) hypertension SNOMED: 30580450 (14) Fatty liver ICD Codes: K76.0 - Fatty (change of) liver, not elsewhere classified SNOMED: 482678551 (15) GERD (gastroesophageal reflux disease) ICD Codes: K21.9 - Gastro-esophageal reflux disease without esophagitis SNOMED: 469480765 (16) Asthma ICD Codes: J45.909 - Unspecified asthma, uncomplicated SNOMED: 277596888 (17) H/O supraventricular tachycardia ICD Codes: Z86.79 - Personal history of other diseases of the circulatory system SNOMED: 318826919156987 Status: stable Assessment/Plan Pulm/critical care consulted This is pt's 3rd intubation in less than 6 months. D/w pulm re likely plan for tracheostomy. D/w pt and son. Surgery consulted s/p tracheostomy on 12/10/17 Pt now weaned off went. On trach collar. CPAP qHS Currently not requiring pressors. Goal MAP 65 and above Cardiology consulted given bradycardia. Likely 2/2 midodrine Hold midodrine s/p steroids ID consulted s/p empiric linezolid, cefepime and flagyl per ID (abx d/c'd 12/13/17) Repeat blood cx show ngtd Nephrology consulted given KASHIF HD line placed and started on HD on 12/07/17. Last HD 12/12. Hold HD for now per renal Strict I/O's Trend CBC, CMP PHOTO MANAGER eval ordered--soft diet as tolerated Pass-donny speaking valve trial Pain control, bowel regimen Supportive care PPI PT/OT CM consulted for d/c plan to subacute facility vs LTACH such as [facility] DVT Prophylaxis: SCD, HSQ Code Status: Full Hospital Classification Declaration: Based on this initial evaluation, and depending on the patient's clinical course, I anticipate that this patient will require hospitalization for 3-4 days for acute respiratory failure, sepsis and close respiratory/hemodynamic monitoring. Disposition: Once the patient is stable to leave the hospital, I anticipate the patient will likely be discharged to the following environment: subacute SNF vs LTACH Plan outlined above discussed with patient/family, pulm/critical care, ID regarding mgmt and dispo. D/w pulm re weaning vent. D/w ID re monitor off abx. D /w renal re monitor off HD Time of note may not reflect time of encounter. Subjective Date patient seen: December 15, 2017 Time patient seen: 18:02 ROS Limited/Unobtainable: No Constitutional: Reports: no symptoms HEENT: Reports: no symptoms Cardiovascular: Reports: no symptoms Respiratory: Reports: cough, shortness of breath Gastrointestinal/Abdominal: Reports: no symptoms Genitourinary: Reports: no symptoms Neurologic/Psychiatric: Reports: no symptoms Endocrine: Reports: no symptoms Hematologic/Lymphatic: Reports: no symptoms Allergies: Coded Allergies: ASPARTAME (Verified Allergy, Unknown, 11/30/17) Headache All Systems: reviewed and negative except above Subjective No acute o/n events s/p tracheostomy POD#5 SCr downtrending. UOP improving Lasting HD 5/5 HR stable at 50-60s Pt doing well. Awake, alert. Passed swallow eval--tolerating PO. Now speaking well. Denies f/c, n/v, d/c, chest pain. SOB, cough stable Objective Last 24 Hour Vital Signs Date Time Temp Pulse Resp B/P (MAP) Pulse Ox O2 Delivery O2 Flow Rate FiO2 12/15/17 16:00 8.0 12/15/17 16:00 98.1 53 24 157/74 99 Trach Collar 30 98.1 12/15/17 15:31 98.0 12/15/17 14:10 151/78 12/15/17 14:10 98.0 12/15/17 12:14 96 Trach Collar 8.0 30 12/15/17 12:00 98.2 57 25 156/81 99 Trach Collar 30 98.2 12/15/17 12:00 8.0 12/15/17 11:55 66 12/15/17 11:45 Trach Collar 8.0 30 12/15/17 11:03 52 22 30 12/15/17 09:55 100 12/15/17 09:25 51 23 30 12/15/17 08:00 98.0 68 26 151/78 100 Mechanical Ventilator 30 98.0 12/15/17 08:00 30 12/15/17 07:59 60 12/15/17 07:29 66 30 30 12/15/17 05:22 154/76 12/15/17 05:12 49 24 30 12/15/17 04:00 43 12/15/17 04:00 30 12/15/17 04:00 98.2 56 21 154/76 98 Mechanical Ventilator 30 98.2 12/15/17 03:02 66 24 30 12/15/17 00:50 60 22 30 12/15/17 00:00 51 12/15/17 00:00 98.2 53 22 142/72 99 Mechanical Ventilator 30 98.2 12/15/17 00:00 30 12/14/17 23:49 59 22 30 12/14/17 22:03 144/89 12/14/17 21:33 61 22 30 12/14/17 20:00 30 12/14/17 20:00 75 12/14/17 20:00 98.1 74 22 144/89 98 Mechanical Ventilator 30 98.1 Intake and Output 12/14/17 12/15/17 19:00 07:00 Intake Total 100 ml 275 ml Output Total 800 ml 1000 ml Balance -700 ml -725 ml Intake Oral 75 ml IV Total 100 ml 200 ml Output Urine Total 800 ml 1000 ml # Bowel Movements 2 Laboratory Tests 12/15/17 03:35: White Blood Count 9.9, Red Blood Count 3.59L, Hemoglobin 10.7L, Hematocrit 33.7L , Mean Corpuscular Volume 94, Mean Corpuscular Hemoglobin 29.9, Mean Corpuscular Hemoglobin Concent 31.8L, Red Cell Distribution Width 15.5H, Platelet Count 303, Mean Platelet Volume 7.2, Neutrophils (%) (Auto) 48.2, Lymphocytes (%) (Auto) 39.9, Monocytes (%) (Auto) 10.3H, Eosinophils (%) (Auto) 1.0, Basophils (%) (Auto) 0.7, Sodium Level 142, Potassium Level 3.8, Chloride Level 104, Carbon Dioxide Level 34H, Anion Gap 4L, Blood Urea Nitrogen 43H, Creatinine 2.2H, Estimat Glomerular Filtration Rate 27.8, Glucose Level 196H, Calcium Level 8.6, Phosphorus Level 4.4, Magnesium Level 2.1, Total Bilirubin 0.4, Aspartate Amino Transf (AST/SGOT) 37, Alanine Aminotransferase (ALT/SGPT) 50, Alkaline Phosphatase 146H, Total Protein 7.2, Albumin 2.5L, Globulin 4.7, Albumin/Globulin Ratio 0.5L Height (Feet): 5 Height (Inches): 8.00 Weight (Pounds): 421 Objective General: awake, alert, NAD, morbidly obese Head: normocephalic, without obvious abnormality, atraumatic Eyes: conjunctivae/corneas clear. PERRL, EOM's intact Throat: lips, mucosa, and tongue normal. MMM Neck: supple, symmetrical, trachea midline, +tracheostomy c/d/i Lungs:+rhonchi b/l Heart: regular rate and rhythm, S1, S2 normal, no murmur, click, rub or gallop Abdomen: soft, non-tender, non-distended, bowel sounds normal Extremities: extremities normal, atraumatic, no cyanosis or edema Pulses: 2+ and symmetric Skin: skin color, texture, turgor normal; no rashes or lesions Neurologic: sedated Cassie Bolivar M.D. December 15, 2017 18:02
[2017-12-15 20:00] VITALS: BP 151/71
[2017-12-15] MEDS: Acetaminophen 650mg/20.3ml NG PRN (21:34)
--- NOTE | 2017-12-15 23:06 | Cardiology Progress Note ---
Assessment/Plan Assessment/Plan COVERAGE FOR DR. CUMMINGS 1. Asymptomatic sinus bradycardia mostly during the sleep. 2. Respiratory failure. S/P tracheostomy 3. Hypertension, on hydralazine to 50 q 8hr. 4. Morbid obesity. 5. History of supraventricular tachycardia. Subjective Subjective Sinus bradycardia at 51. + Trach Awake and alert. Objective Last 24 Hour Vital Signs Date Time Temp Pulse Resp B/P (MAP) Pulse Ox O2 Delivery O2 Flow Rate FiO2 12/15/17 22:52 51 26 30 12/15/17 21:34 151/71 12/15/17 20:50 58 27 30 12/15/17 20:47 30 12/15/17 20:00 97.5 61 28 151/71 100 Trach Collar 30 97.5 12/15/17 20:00 8.0 30 12/15/17 19:25 71 12/15/17 19:17 74 16 100 Trach Collar 8.0 30 12/15/17 19:14 100 Trach Collar 8.0 30 12/15/17 19:14 Trach Collar 8.0 30 12/15/17 19:10 72 20 100 Trach Collar 8.0 30 12/15/17 16:00 8.0 12/15/17 16:00 49 12/15/17 16:00 98.1 53 24 157/74 99 Trach Collar 30 98.1 12/15/17 15:31 98.0 12/15/17 14:10 151/78 12/15/17 14:10 98.0 12/15/17 12:14 96 Trach Collar 8.0 30 12/15/17 12:00 98.2 57 25 156/81 99 Trach Collar 30 98.2 12/15/17 12:00 8.0 12/15/17 11:55 66 12/15/17 11:45 Trach Collar 8.0 30 12/15/17 11:03 52 22 30 12/15/17 09:55 100 12/15/17 09:25 51 23 30 12/15/17 08:00 98.0 68 26 151/78 100 Mechanical Ventilator 30 98.0 12/15/17 08:00 30 12/15/17 07:59 60 12/15/17 07:29 66 30 30 12/15/17 05:22 154/76 12/15/17 05:12 49 24 30 12/15/17 04:00 43 12/15/17 04:00 30 12/15/17 04:00 98.2 56 21 154/76 98 Mechanical Ventilator 30 98.2 12/15/17 03:02 66 24 30 12/15/17 00:50 60 22 30 12/15/17 00:00 51 12/15/17 00:00 98.2 53 22 142/72 99 Mechanical Ventilator 30 98.2 12/15/17 00:00 30 12/14/17 23:49 59 22 30 Intake and Output 12/14/17 12/15/17 19:00 07:00 Intake Total 100 ml 275 ml Output Total 800 ml 1000 ml Balance -700 ml -725 ml Intake Oral 75 ml IV Total 100 ml 200 ml Output Urine Total 800 ml 1000 ml # Bowel Movements 2 2D Echo: EF 55%, Mild LVH Laboratory Tests Test 12/15/17 03:35 White Blood Count 9.9 K/UL (4.8-10.8) Red Blood Count 3.59 M/UL (4.20-5.40) L Hemoglobin 10.7 G/DL (12.0-16.0) L Hematocrit 33.7 % (37.0-47.0) L Mean Corpuscular Volume 94 FL (80-99) Mean Corpuscular Hemoglobin 29.9 PG (27.0-31.0) Mean Corpuscular Hemoglobin Concent 31.8 G/DL (32.0-36.0) L Red Cell Distribution Width 15.5 % (11.6-14.8) H Platelet Count 303 K/UL (150-450) Mean Platelet Volume 7.2 FL (6.5-10.1) Neutrophils (%) (Auto) 48.2 % (45.0-75.0) Lymphocytes (%) (Auto) 39.9 % (20.0-45.0) Monocytes (%) (Auto) 10.3 % (1.0-10.0) H Eosinophils (%) (Auto) 1.0 % (0.0-3.0) Basophils (%) (Auto) 0.7 % (0.0-2.0) Sodium Level 142 MMOL/L (136-145) Potassium Level 3.8 MMOL/L (3.5-5.1) Chloride Level 104 MMOL/L (98-107) Carbon Dioxide Level 34 MMOL/L (21-32) H Anion Gap 4 mmol/L (5-15) L Blood Urea Nitrogen 43 mg/dL (7-18) H Creatinine 2.2 MG/DL (0.55-1.30) H Estimat Glomerular Filtration Rate 27.8 mL/min (>60) Glucose Level 196 MG/DL (74-106) H Calcium Level 8.6 MG/DL (8.5-10.1) Phosphorus Level 4.4 MG/DL (2.5-4.9) Magnesium Level 2.1 MG/DL (1.8-2.4) Total Bilirubin 0.4 MG/DL (0.2-1.0) Aspartate Amino Transf (AST/SGOT) 37 U/L (15-37) Alanine Aminotransferase (ALT/SGPT) 50 U/L (12-78) Alkaline Phosphatase 146 U/L (46-116) H Total Protein 7.2 G/DL (6.4-8.2) Albumin 2.5 G/DL (3.4-5.0) L Globulin 4.7 g/dL Albumin/Globulin Ratio 0.5 (1.0-2.7) L Objective HEAD AND NECK: No JVD. S/P Tracheostomy, morbidly obese LUNGS: Coarse rhonchi. CARDIOVASCULAR: Bradycardic S1 and S2 . ABDOMEN: Morbidly obese. EXTREMITIES: 1+ pitting edema. DIANDRA GARCIA December 15, 2017 23:06
[2017-12-16] VITALS (7 sets, daily range): BP systolic 137–173; BP diastolic 62–81
--- NOTE | 2017-12-16 00:01 | General Progress Note ---
Assessment/Plan Assessment/Plan #. Coagulopathy, potentially secondary to liver problem, liver disease. --> Currently off of anticoagulation, currently inr has improved --> Administer Vit K in case patient bleeds, or inr increases #. Anemia due to underlying chronic disease. --> Continue to closely monitor. Anemia workup has been reviewed. --> Blood transfusion not required unless symptomatic or hgb <7 --> Hgb has been stable. #. Leukocytosis, potentially secondary to infection. --> Worsened again. Monitor for improvement. #. Transaminitis as well as elevated --> Continue to closely monitor for improvement. #. Acute tubular necrosis with elevated creatinine. Continue to closely monitor. #. Obesity hypoventilation syndrome. #. Respiratory failure, status post intubation. --> s/p tracheostomy #. Acute kidney injury. The patient's creatinine within normal limits on admission, potentially secondary to shock. #. Bradycardia. --> Improved. Subjective Date patient seen: December 15, 2017 Constitutional: Denies: no symptoms, chills, diaphoresis, fever, malaise, weakness, other HEENT: Denies: no symptoms, eye pain, blurred vision, tearing, double vision, ear pain, ear discharge, nose pain, nose congestion, throat pain, throat swelling, mouth pain, mouth swelling, other Cardiovascular: Denies: no symptoms, chest pain, edema, irregular heart rate, lightheadedness, palpitations, syncope, other Respiratory: Denies: no symptoms, cough, orthopnea, shortness of breath, SOB with excertion, SOB at rest, sputum, stridor, wheezing, other Gastrointestinal/Abdominal: Denies: no symptoms, abdomen distended, abdominal pain, black stools, tarry stools, blood in stool, constipated, diarrhea, difficulty swallowing, nausea, poor appetite, poor fluid intake, rectal bleeding , vomiting, other Genitourinary: Denies: no symptoms, burning, discharge, frequency, flank pain, hematuria, incontinence, pain, urgency, other Neurologic/Psychiatric: Denies: no symptoms, anxiety, depressed, emotional problems, headache, numbness, paresthesia, pre-existing deficit, seizure, tingling, tremors, weakness, other Endocrine: Denies: no symptoms, excessive sweating, flushing, intolerance to cold, intolerance to heat, increased hunger, increased thirst, increased urine, unexplained weight gain, unexplained weight loss, other Hematologic/Lymphatic: Reports: anemia Allergies: Coded Allergies: ASPARTAME (Verified Allergy, Unknown, 11/30/17) Headache Subjective H/H stable. On vent. No acute events overnight. Objective Last 24 Hour Vital Signs Date Time Temp Pulse Resp B/P (MAP) Pulse Ox O2 Delivery O2 Flow Rate FiO2 12/15/17 22:52 51 26 30 12/15/17 21:34 151/71 12/15/17 20:50 58 27 30 12/15/17 20:47 30 12/15/17 20:00 97.5 61 28 151/71 100 Trach Collar 30 97.5 12/15/17 20:00 8.0 30 12/15/17 19:25 71 12/15/17 19:17 74 16 100 Trach Collar 8.0 30 12/15/17 19:14 100 Trach Collar 8.0 30 12/15/17 19:14 Trach Collar 8.0 30 12/15/17 19:10 72 20 100 Trach Collar 8.0 30 12/15/17 16:00 8.0 12/15/17 16:00 49 12/15/17 16:00 98.1 53 24 157/74 99 Trach Collar 30 98.1 12/15/17 15:31 98.0 12/15/17 14:10 151/78 12/15/17 14:10 98.0 12/15/17 12:14 96 Trach Collar 8.0 30 12/15/17 12:00 98.2 57 25 156/81 99 Trach Collar 30 98.2 12/15/17 12:00 8.0 12/15/17 11:55 66 12/15/17 11:45 Trach Collar 8.0 30 12/15/17 11:03 52 22 30 12/15/17 09:55 100 12/15/17 09:25 51 23 30 12/15/17 08:00 98.0 68 26 151/78 100 Mechanical Ventilator 30 98.0 12/15/17 08:00 30 12/15/17 07:59 60 12/15/17 07:29 66 30 30 12/15/17 05:22 154/76 12/15/17 05:12 49 24 30 12/15/17 04:00 43 12/15/17 04:00 30 12/15/17 04:00 98.2 56 21 154/76 98 Mechanical Ventilator 30 98.2 12/15/17 03:02 66 24 30 12/15/17 00:50 60 22 30 12/15/17 00:00 51 12/15/17 00:00 98.2 53 22 142/72 99 Mechanical Ventilator 30 98.2 12/15/17 00:00 30 Intake and Output 12/14/17 12/15/17 19:00 07:00 Intake Total 100 ml 275 ml Output Total 800 ml 1000 ml Balance -700 ml -725 ml Intake Oral 75 ml IV Total 100 ml 200 ml Output Urine Total 800 ml 1000 ml # Bowel Movements 2 Laboratory Tests 12/15/17 03:35: White Blood Count 9.9, Red Blood Count 3.59L, Hemoglobin 10.7L, Hematocrit 33.7L , Mean Corpuscular Volume 94, Mean Corpuscular Hemoglobin 29.9, Mean Corpuscular Hemoglobin Concent 31.8L, Red Cell Distribution Width 15.5H, Platelet Count 303, Mean Platelet Volume 7.2, Neutrophils (%) (Auto) 48.2, Lymphocytes (%) (Auto) 39.9, Monocytes (%) (Auto) 10.3H, Eosinophils (%) (Auto) 1.0, Basophils (%) (Auto) 0.7, Sodium Level 142, Potassium Level 3.8, Chloride Level 104, Carbon Dioxide Level 34H, Anion Gap 4L, Blood Urea Nitrogen 43H, Creatinine 2.2H, Estimat Glomerular Filtration Rate 27.8, Glucose Level 196H, Calcium Level 8.6, Phosphorus Level 4.4, Magnesium Level 2.1, Total Bilirubin 0.4, Aspartate Amino Transf (AST/SGOT) 37, Alanine Aminotransferase (ALT/SGPT) 50, Alkaline Phosphatase 146H, Total Protein 7.2, Albumin 2.5L, Globulin 4.7, Albumin/Globulin Ratio 0.5L Height (Feet): 5 Height (Inches): 8.00 Weight (Pounds): 421 General Appearance: no apparent distress Cardiovascular: normal rate, regular rhythm Respiratory/Chest: decreased breath sounds Abdomen: normal bowel sounds, non tender Edema: trace edema Jem Palmer MD December 16, 2017 00:01
[2017-12-16] MEDS: NovoLOG Insulin Flexpen SUBQ SCH ×5 (00:03→21:55)
[2017-12-16 04:26] LABS: BASOPHILS % (AUTO) 1.1 % (0.0-2.0); HEMATOCRIT 33.3 % (37.0-47.0); HEMOGLOBIN 10.7 G/DL (12.0-16.0); LYMPHOCYTES % (AUTO) 44.5 % (20.0-45.0); MEAN CORPUSCULAR VOLUME 94 FL (80-99); MONOCYTES % (AUTO) 8.5 % (1.0-10.0); NEUTROPHILS % (AUTO) 42.9 % (45.0-75.0); PLATELET COUNT 308 K/UL (150-450); RED BLOOD COUNT 3.54 M/UL (4.20-5.40); RED CELL DISTRIBUTION WIDTH 15.3 % (11.6-14.8); WHITE BLOOD COUNT 8.5 K/UL (4.8-10.8)
[2017-12-16 04:46] LABS: ALANINE AMINOTRANSFERASE 58 U/L (12-78); ALBUMIN 2.5 G/DL (3.4-5.0); ALBUMIN/GLOBULIN RATIO 0.6 (1.0-2.7); ALKALINE PHOSPHATASE 155 U/L (46-116); ANION GAP 5 mmol/L (5-15); ASPARTATE AMINO TRANSFERASE 50 U/L (15-37); BILIRUBIN,TOTAL 0.4 MG/DL (0.2-1.0); BLOOD UREA NITROGEN 39 mg/dL (7-18); CARBON DIOXIDE 32 MMOL/L (21-32); CHLORIDE 105 MMOL/L (98-107); CREATININE 1.6 MG/DL (0.55-1.30); PHOSPHORUS 4.5 MG/DL (2.5-4.9); POTASSIUM 3.8 MMOL/L (3.5-5.1); SODIUM 142 MMOL/L (136-145)
[2017-12-16] MEDS: HydrALAZINE 50mg tab NG SCH ×3 (05:31→21:46)
[2017-12-16] MEDS: Pantoprazole Inj IVP SCH ×2 (08:46→21:47)
[2017-12-16] MEDS: Allopurinol 100mg Tab ORAL SCH (08:46)
[2017-12-16] MEDS: Heparin 5000 units/ml inj SUBQ SCH ×2 (08:47→21:54)
--- NOTE | 2017-12-16 10:18 | Nephrology Progress Note ---
Assessment/Plan Problem List: (1) Acute renal failure (ARF) (2) Acute respiratory failure (3) Acute on chronic diastolic (congestive) heart failure (4) Elevated liver enzymes Assessment - Acute & chronic respiratory failure, - Bacteremia - ATN (acute tubular necrosis), ARF - Acute encephalopathy - Aspiration pnemonia vs HCAP - Likely obesity hypoventilation syndrome - Elevated liver enzymes Plan Acute renal failure, resolving Mag supplement as needed HD last 12/11 low BP resolved resp failure , intubated, trached, resp management obese monitor renal parameters, Cr lowerin without HD Up hydralazine dose DC Dialysis cath Subjective ROS Limited/Unobtainable: Yes Objective Objective Last 24 Hour Vital Signs Date Time Temp Pulse Resp B/P (MAP) Pulse Ox O2 Delivery O2 Flow Rate FiO2 12/16/17 10:14 100 12/16/17 08:00 98.2 53 22 173/75 98 Trach Collar 30 98.2 12/16/17 08:00 45 12/16/17 08:00 30 12/16/17 07:55 Mechanical Ventilator 12/16/17 07:54 98 Mechanical Ventilator 30 12/16/17 07:20 47 25 30 12/16/17 05:31 173/70 12/16/17 05:14 52 22 30 12/16/17 04:21 43 12/16/17 04:00 30 12/16/17 04:00 98.2 55 24 173/70 99 Trach Collar 30 98.2 12/16/17 03:49 97.9 92 15 137/62 99 Trach Collar 30 97.9 12/16/17 02:42 48 19 30 12/16/17 01:15 100 Mechanical Ventilator 30 12/16/17 01:15 Mechanical Ventilator 30 12/16/17 01:14 48 21 30 12/16/17 00:00 45 12/16/17 00:00 97.0 46 23 149/73 97 Trach Collar 30 97.0 12/16/17 00:00 30 12/15/17 22:52 51 26 30 12/15/17 21:34 151/71 12/15/17 20:50 58 27 30 12/15/17 20:47 30 12/15/17 20:00 97.5 61 28 151/71 100 Trach Collar 30 97.5 12/15/17 20:00 8.0 30 12/15/17 19:25 71 12/15/17 19:17 74 16 100 Trach Collar 8.0 30 12/15/17 19:14 100 Trach Collar 8.0 30 12/15/17 19:14 Trach Collar 8.0 30 12/15/17 19:10 72 20 100 Trach Collar 8.0 30 12/15/17 16:00 8.0 12/15/17 16:00 49 12/15/17 16:00 98.1 53 24 157/74 99 Trach Collar 30 98.1 12/15/17 15:31 98.0 12/15/17 14:10 151/78 12/15/17 14:10 98.0 12/15/17 12:14 96 Trach Collar 8.0 30 12/15/17 12:00 98.2 57 25 156/81 99 Trach Collar 30 98.2 12/15/17 12:00 8.0 12/15/17 11:55 66 12/15/17 11:45 Trach Collar 8.0 30 12/15/17 11:03 52 22 30 Intake and Output 12/15/17 12/16/17 19:00 07:00 Intake Total 700 ml 75 ml Output Total 500 ml 1350 ml Balance 200 ml -1275 ml Intake Oral 700 ml 75 ml Output Urine Total 500 ml 1350 ml # Bowel Movements 2 1 Laboratory Tests 12/16/17 04:00: White Blood Count 8.5, Red Blood Count 3.54L, Hemoglobin 10.7L, Hematocrit 33.3L , Mean Corpuscular Volume 94, Mean Corpuscular Hemoglobin 30.3, Mean Corpuscular Hemoglobin Concent 32.2, Red Cell Distribution Width 15.3H, Platelet Count 308, Mean Platelet Volume 6.6, Neutrophils (%) (Auto) 42.9L, Lymphocytes (%) (Auto) 44.5, Monocytes (%) (Auto) 8.5, Eosinophils (%) (Auto) 3.0, Basophils (%) (Auto) 1.1, Sodium Level 142, Potassium Level 3.8, Chloride Level 105, Carbon Dioxide Level 32, Anion Gap 5, Blood Urea Nitrogen 39H, Creatinine 1.6H, Estimat Glomerular Filtration Rate 40.0, Glucose Level 185H, Calcium Level 9.0, Phosphorus Level 4.5, Magnesium Level 1.4L, Total Bilirubin 0.4, Aspartate Amino Transf (AST/SGOT) 50H, Alanine Aminotransferase (ALT/SGPT) 58, Alkaline Phosphatase 155H, Total Protein 7.0, Albumin 2.5L, Globulin 4.5, Albumin/Globulin Ratio 0.6L Height (Feet): 5 Height (Inches): 8.00 Weight (Pounds): 421 EENT: other - trach Cardiovascular: normal rate Respiratory/Chest: decreased breath sounds Abdomen: soft Objective no change AGUSTIN CONTRERAS December 16, 2017 10:18
--- NOTE | 2017-12-16 11:29 | Pulmonology Progress Note ---
Assessment/Plan Problems: (1) Acute respiratory failure with hypoxia and hypercapnia (2) Acute renal failure (ARF) (3) Morbid obesity (4) DM2 (diabetes mellitus, type 2) (5) HTN (hypertension) Respiratory: monitor respiratory rate, adjust FIO2 Cardiac: continue pressors, continue to monitor HR/BP Renal: F/U I&O, keep IV fluid Infectious Disease: check cultures Gastrointestinal: continue feedings/current rate, hold feedings Endocrine: check TSH, check HgA1C Hematologic: monitor H/H, transfuse if hgb<8.5 Neurologic: PRN Ativan, keep patient comfortable Affect: PRN ativan Prophylaxis: Protonix, Heparin Notes Reviewed: respiratory therapy instructor, 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 with: nurses, consultants, onsite case manager Subjective ROS Limited/Unobtainable: No Constitutional: Reports: no symptoms HEENT: Repors: no symptoms Respiratory: Reports: no symptoms Allergies: Coded Allergies: ASPARTAME (Verified Allergy, Unknown, 11/30/17) Headache Objective Last 24 Hour Vital Signs Date Time Temp Pulse Resp B/P (MAP) Pulse Ox O2 Delivery O2 Flow Rate FiO2 12/16/17 10:40 49 24 30 12/16/17 10:14 100 12/16/17 09:29 47 22 30 12/16/17 08:00 98.2 53 22 173/75 98 Trach Collar 30 98.2 12/16/17 08:00 45 12/16/17 08:00 30 12/16/17 07:55 Mechanical Ventilator 12/16/17 07:54 98 Mechanical Ventilator 30 12/16/17 07:20 47 25 30 12/16/17 05:31 173/70 12/16/17 05:14 52 22 30 12/16/17 04:21 43 12/16/17 04:00 30 12/16/17 04:00 98.2 55 24 173/70 99 Trach Collar 30 98.2 12/16/17 03:49 97.9 92 15 137/62 99 Trach Collar 30 97.9 12/16/17 02:42 48 19 30 12/16/17 01:15 100 Mechanical Ventilator 30 12/16/17 01:15 Mechanical Ventilator 30 12/16/17 01:14 48 21 30 12/16/17 00:00 45 12/16/17 00:00 97.0 46 23 149/73 97 Trach Collar 30 97.0 12/16/17 00:00 30 12/15/17 22:52 51 26 30 12/15/17 21:34 151/71 12/15/17 20:50 58 27 30 12/15/17 20:47 30 12/15/17 20:00 97.5 61 28 151/71 100 Trach Collar 30 97.5 12/15/17 20:00 8.0 30 12/15/17 19:25 71 12/15/17 19:17 74 16 100 Trach Collar 8.0 30 12/15/17 19:14 100 Trach Collar 8.0 30 12/15/17 19:14 Trach Collar 8.0 30 12/15/17 19:10 72 20 100 Trach Collar 8.0 30 12/15/17 16:00 8.0 12/15/17 16:00 49 12/15/17 16:00 98.1 53 24 157/74 99 Trach Collar 30 98.1 12/15/17 15:31 98.0 12/15/17 14:10 151/78 12/15/17 14:10 98.0 12/15/17 12:14 96 Trach Collar 8.0 30 12/15/17 12:00 98.2 57 25 156/81 99 Trach Collar 30 98.2 12/15/17 12:00 8.0 12/15/17 11:55 66 12/15/17 11:45 Trach Collar 8.0 30 Intake and Output 12/15/17 12/16/17 19:00 07:00 Intake Total 700 ml 75 ml Output Total 500 ml 1350 ml Balance 200 ml -1275 ml Intake Oral 700 ml 75 ml Output Urine Total 500 ml 1350 ml # Bowel Movements 2 1 General Appearance: WD/WN HEENT: normocephalic, atraumatic, status post trach Respiratory/Chest: chest wall non-tender, lungs clear Cardiovascular: normal peripheral pulses, normal rate Abdomen: normal bowel sounds, soft, non tender Genitourinary: normal external genitalia Extremities: no clubbing Skin: no rash Laboratory Tests 12/16/17 04:00: White Blood Count 8.5, Red Blood Count 3.54L, Hemoglobin 10.7L, Hematocrit 33.3L , Mean Corpuscular Volume 94, Mean Corpuscular Hemoglobin 30.3, Mean Corpuscular Hemoglobin Concent 32.2, Red Cell Distribution Width 15.3H, Platelet Count 308, Mean Platelet Volume 6.6, Neutrophils (%) (Auto) 42.9L, Lymphocytes (%) (Auto) 44.5, Monocytes (%) (Auto) 8.5, Eosinophils (%) (Auto) 3.0, Basophils (%) (Auto) 1.1, Sodium Level 142, Potassium Level 3.8, Chloride Level 105, Carbon Dioxide Level 32, Anion Gap 5, Blood Urea Nitrogen 39H, Creatinine 1.6H, Estimat Glomerular Filtration Rate 40.0, Glucose Level 185H, Calcium Level 9.0, Phosphorus Level 4.5, Magnesium Level 1.4L, Total Bilirubin 0.4, Aspartate Amino Transf (AST/SGOT) 50H, Alanine Aminotransferase (ALT/SGPT) 58, Alkaline Phosphatase 155H, Total Protein 7.0, Albumin 2.5L, Globulin 4.5, Albumin/Globulin Ratio 0.6L Current Medications Medications (Trade) Dose Ordered Sig/Felipe Route PRN Reason Start Time Stop Time Status Last Admin Dose Admin Acetaminophen (Tylenol) 650 mg Q4H PRN NG Mild Pain 12/11/17 17:00 01/10/18 16:59 12/15/17 21:34 Acetaminophen (Tylenol) 650 mg Q4H PRN ORAL Fever (temp>100.5F) 12/11/17 17:00 01/03/18 16:59 12/16/17 08:51 Albuterol/ Ipratropium (Albuterol/ Ipratropium) 3 ml Q4H PRN HHN sob 12/12/17 11:00 12/17/17 10:59 12/15/17 19:14 Allopurinol (Zyloprim) 100 mg DAILY ORAL 12/12/17 09:00 01/04/18 08:59 12/16/17 08:46 Clotrimazole (Lotrimin) 1 applic THREE TIMES A DAY TOPIC 12/11/17 18:00 01/08/18 08:59 12/16/17 08:46 Dextrose (Dextrose 50%) 25 ml STAT PRN IV Hypoglycemia 12/11/17 17:00 01/10/18 16:59 Dextrose (Dextrose 50%) 50 ml STAT PRN IV Hypoglycemia 12/11/17 17:00 01/10/18 16:59 Diphenhydramine HCl (Benadryl) 12.5 mg Q6H PRN IVP Itching 12/11/17 17:00 01/07/18 16:59 12/12/17 04:23 Heparin Sodium (Porcine) (Heparin 5000 units/ml) 5,000 units EVERY 12 HOURS SUBQ 12/11/17 21:00 01/03/18 20:59 12/16/17 08:47 Hydralazine HCl (Apresoline) 10 mg Q4H PRN IV sbp> 160 mmHg 12/11/17 17:30 01/08/18 17:29 Hydralazine HCl (Apresoline) 50 mg EVERY 8 HOURS NG 12/13/17 22:00 01/08/18 15:44 12/16/17 05:31 Insulin Aspart (NovoLOG) EVERY 6 HOURS SUBQ 12/11/17 18:00 01/04/18 11:29 12/16/17 05:37 Magnesium Sulfate 100 ml @ 100 mls/hr Q1H IVPB 12/16/17 11:00 12/16/17 14:59 Nitroglycerin (Ntg) 0.4 mg Q5M PRN SL Prn Chest Pain 12/11/17 17:00 01/03/18 16:59 Ondansetron HCl (Zofran) 4 mg Q6H PRN IVP Nausea & Vomiting 12/11/17 17:00 01/03/18 16:59 Pantoprazole (Protonix) 40 mg EVERY 12 HOURS IVP 12/13/17 21:00 01/12/18 20:59 12/16/17 08:46 Yariel Malone MD December 16, 2017 11:29
[2017-12-16] MEDS ORDERED: NovoLOG Insulin Flexpen SUBQ SCH (12:30)
--- NOTE | 2017-12-16 17:51 | General Progress Note ---
Assessment/Plan Problem List: (1) Acute toxic metabolic encephalopathy (2) Acute respiratory failure with hypoxia and hypercapnia ICD Codes: J96.01 - Acute respiratory failure with hypoxia; J96.02 - Acute respiratory failure with hypercapnia SNOMED: 41687193, 16557546, 332668413 (3) Likely obesity hypoventilation syndrome (4) Severe sepsis ICD Codes: A41.9 - Sepsis, unspecified organism; R65.20 - Severe sepsis without septic shock SNOMED: 04770407 (5) KASHIF (acute kidney injury) ICD Codes: N17.9 - Acute kidney failure, unspecified SNOMED: 63605016 (6) ATN (acute tubular necrosis) ICD Codes: N17.0 - Acute kidney failure with tubular necrosis SNOMED: 29340838 (7) Elevated liver enzymes ICD Codes: R74.8 - Abnormal levels of other serum enzymes SNOMED: 221904835 (8) Aspiration pnemonia vs HCAP (9) UTI (urinary tract infection) ICD Codes: N39.0 - Urinary tract infection, site not specified SNOMED: 19152309 Qualifiers: Qualified Codes: N39.0 - Urinary tract infection, site not specified (10) Morbid obesity ICD Codes: E66.01 - Morbid (severe) obesity due to excess calories SNOMED: 991761816, 43667400155738 (11) Chronic diastolic (congestive) heart failure ICD Codes: I50.32 - Chronic diastolic (congestive) heart failure SNOMED: 94995122, 735056715 (12) DM2 (diabetes mellitus, type 2) ICD Codes: E11.9 - Type 2 diabetes mellitus without complications SNOMED: 90805095 (13) Hypertension ICD Codes: I10 - Essential (primary) hypertension SNOMED: 37444370 (14) Fatty liver ICD Codes: K76.0 - Fatty (change of) liver, not elsewhere classified SNOMED: 993613468 (15) GERD (gastroesophageal reflux disease) ICD Codes: K21.9 - Gastro-esophageal reflux disease without esophagitis SNOMED: 499164106 (16) Asthma ICD Codes: J45.909 - Unspecified asthma, uncomplicated SNOMED: 839392070 (17) H/O supraventricular tachycardia ICD Codes: Z86.79 - Personal history of other diseases of the circulatory system SNOMED: 273165702021501 Status: stable Assessment/Plan Pulm/critical care consulted This was pt's 3rd intubation in less than 6 months. D/w pulm re likely plan for tracheostomy. D/w pt and son. Surgery consulted s/p tracheostomy on 12/10/17 Pt now weaned off vent. Doing well on trach collar. CPAP qHS Currently not requiring pressors. Goal MAP 65 and above Cardiology consulted given bradycardia. Likely 2/2 midodrine Hold midodrine s/p steroids ID consulted s/p empiric linezolid, cefepime and flagyl per ID (abx d/c'd 12/13/17) Repeat blood cx show ngtd Nephrology consulted given KASHIF HD line placed and started on HD on 12/07/17. Last HD 12/12. Hold HD for now per renal Strict I/O's Trend CBC, CMP PERSONAL DRIVER eval ordered--soft diet as tolerated Pass-donny speaking valve trial Pain control, bowel regimen Supportive care PPI PT/OT CM consulted for d/c plan to subacute facility vs LTACH such as [facility] DVT Prophylaxis: SCD, HSQ Code Status: Full Hospital Classification Declaration: Based on this initial evaluation, and depending on the patient's clinical course, I anticipate that this patient will require hospitalization for 3-4 days for acute respiratory failure, sepsis and close respiratory/hemodynamic monitoring. Disposition: Once the patient is stable to leave the hospital, I anticipate the patient will likely be discharged to the following environment: subacute SNF vs LTACH Plan outlined above discussed with patient/family, pulm/critical care, ID regarding mgmt and dispo. D/w pulm re weaning vent. D/w ID re monitor off abx. D /w renal re monitor off HD. D/w pulm re weaned off vent, trach collar, CPAP qHS Time of note may not reflect time of encounter. Subjective Date patient seen: December 16, 2017 Time patient seen: 17:51 ROS Limited/Unobtainable: No Constitutional: Reports: weakness HEENT: Reports: no symptoms Cardiovascular: Reports: no symptoms Respiratory: Reports: cough, shortness of breath Gastrointestinal/Abdominal: Reports: no symptoms Genitourinary: Reports: no symptoms Neurologic/Psychiatric: Reports: no symptoms Endocrine: Reports: no symptoms Hematologic/Lymphatic: Reports: no symptoms Allergies: Coded Allergies: ASPARTAME (Verified Allergy, Unknown, 11/30/17) Headache All Systems: reviewed and negative except above Subjective No acute o/n events s/p tracheostomy POD#6 SCr downtrending. UOP improving. Last HD 5/5 HR stable at 50-60s Pt doing well. Awake, alert. Passed swallow eval--tolerating PO. Denies f/c, n/v , d/c, chest pain. SOB, cough stable Objective Last 24 Hour Vital Signs Date Time Temp Pulse Resp B/P (MAP) Pulse Ox O2 Delivery O2 Flow Rate FiO2 12/16/17 16:00 84 12/16/17 16:00 8.0 30 12/16/17 16:00 98.0 68 20 147/65 99 Trach Collar 30 98.0 12/16/17 13:28 151/81 12/16/17 13:14 98 Trach Collar 30 12/16/17 13:14 Trach Collar 8.0 30 12/16/17 12:00 50 12/16/17 12:00 30 12/16/17 12:00 95.0 51 20 151/81 99 Trach Collar 30 95.0 12/16/17 11:23 Trach Collar 8.0 30 12/16/17 11:22 98 Trach Collar 30 12/16/17 10:40 49 24 30 12/16/17 10:14 100 12/16/17 09:29 47 22 30 12/16/17 08:00 98.2 53 22 173/75 98 Trach Collar 30 98.2 12/16/17 08:00 45 12/16/17 08:00 30 12/16/17 07:55 Mechanical Ventilator 12/16/17 07:54 98 Mechanical Ventilator 30 12/16/17 07:20 47 25 30 12/16/17 05:31 173/70 12/16/17 05:14 52 22 30 12/16/17 04:21 43 12/16/17 04:00 30 12/16/17 04:00 98.2 55 24 173/70 99 Trach Collar 30 98.2 12/16/17 03:49 97.9 92 15 137/62 99 Trach Collar 30 97.9 12/16/17 02:42 48 19 30 12/16/17 01:15 100 Mechanical Ventilator 30 12/16/17 01:15 Mechanical Ventilator 30 12/16/17 01:14 48 21 30 12/16/17 00:00 45 12/16/17 00:00 97.0 46 23 149/73 97 Trach Collar 30 97.0 12/16/17 00:00 30 12/15/17 22:52 51 26 30 12/15/17 21:34 151/71 12/15/17 20:50 58 27 30 12/15/17 20:47 30 12/15/17 20:00 97.5 61 28 151/71 100 Trach Collar 30 97.5 12/15/17 20:00 8.0 30 12/15/17 19:25 71 12/15/17 19:17 74 16 100 Trach Collar 8.0 30 12/15/17 19:14 100 Trach Collar 8.0 30 12/15/17 19:14 Trach Collar 8.0 30 12/15/17 19:10 72 20 100 Trach Collar 8.0 30 Intake and Output 12/15/17 12/16/17 19:00 07:00 Intake Total 700 ml 75 ml Output Total 500 ml 1350 ml Balance 200 ml -1275 ml Intake Oral 700 ml 75 ml Output Urine Total 500 ml 1350 ml # Bowel Movements 2 1 Laboratory Tests 12/16/17 04:00: White Blood Count 8.5, Red Blood Count 3.54L, Hemoglobin 10.7L, Hematocrit 33.3L , Mean Corpuscular Volume 94, Mean Corpuscular Hemoglobin 30.3, Mean Corpuscular Hemoglobin Concent 32.2, Red Cell Distribution Width 15.3H, Platelet Count 308, Mean Platelet Volume 6.6, Neutrophils (%) (Auto) 42.9L, Lymphocytes (%) (Auto) 44.5, Monocytes (%) (Auto) 8.5, Eosinophils (%) (Auto) 3.0, Basophils (%) (Auto) 1.1, Sodium Level 142, Potassium Level 3.8, Chloride Level 105, Carbon Dioxide Level 32, Anion Gap 5, Blood Urea Nitrogen 39H, Creatinine 1.6H, Estimat Glomerular Filtration Rate 40.0, Glucose Level 185H, Calcium Level 9.0, Phosphorus Level 4.5, Magnesium Level 1.4L, Total Bilirubin 0.4, Aspartate Amino Transf (AST/SGOT) 50H, Alanine Aminotransferase (ALT/SGPT) 58, Alkaline Phosphatase 155H, Total Protein 7.0, Albumin 2.5L, Globulin 4.5, Albumin/Globulin Ratio 0.6L Height (Feet): 5 Height (Inches): 8.00 Weight (Pounds): 421 Objective General: awake, alert, NAD, morbidly obese Head: normocephalic, without obvious abnormality, atraumatic Eyes: conjunctivae/corneas clear. PERRL, EOM's intact Throat: lips, mucosa, and tongue normal. MMM Neck: supple, symmetrical, trachea midline, +tracheostomy c/d/i Lungs:+rhonchi b/l Heart: regular rate and rhythm, S1, S2 normal, no murmur, click, rub or gallop Abdomen: soft, non-tender, non-distended, bowel sounds normal Extremities: extremities normal, atraumatic, no cyanosis or edema Pulses: 2+ and symmetric Skin: skin color, texture, turgor normal; no rashes or lesions Neurologic: sedated Cassie Bolivar M.D. December 16, 2017 17:51
--- NOTE | 2017-12-16 18:28 | Infectious Diseases Prog Note ---
Assessment/Plan Assessment/Plan ASSESSMENT AND PLAN: 1. sepsis, leukocytosis, fevers, ? mrsa pna/uri, ? aspiration pna, possible diphtheroids bacteremia, vent, elevated co2, ams, arf, respiratory failure, edema, ? fungal uti, sig + ua - s/p zyvox, ceftriaxone and flagyl - s/p diflucan - stable off abx so far - f/u labs and chest x-ray periodically - surveillance cultures negative - off vent currently - s/p tracheostomy - leukocytosis and fevers resolved - echo - no vegetations mentioned - hx steroids - weaning protocol - off hd, urine output better 2. Respiratory failure, on vent, no pressors - treatment per primary and pulmonary 3. Vargas. 4. The patient has history of hypertension. 5. Diabetes. 6. Hyperlipidemia. 7. Blood sugar and blood pressure treatment per primary. 8. History of asthma. 9. History of myocardial infarction and coronary artery disease. 10. History of heart failure/congestive heart failure. 11. History of gout. 12. History of sepsis and pneumonia. 13. History of muscle weakness. 14. Gastroesophageal reflux disease. 15. Past orders were noted. 16. Allergies are negative. 17. Family History is noncontributory. 18. Social history is negative. 19. MAR was noted. 20. Case discussed with RN. 21. Continue treatment per primary and consultants. 22. Case discussed with Dr. Matthews. 23. Case discussed with RN in the ICU. 24. Orders were noted and entered. 25. Notes and records were noted. 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 Subjective Constitutional: Reports: other - s/p trach, off vent, nad; Denies: fever HEENT: Reports: congestion Respiratory: Reports: shortness of breath Cardiovascular: Denies: chest pain Gastrointestinal/Abdominal: Denies: nausea, vomiting, diarrhea Genitourinary: Reports: other - + vargas Neurologic: Denies: headache Psychiatric: Denies: depression Hematologic: Denies: bleeding Musculoskeletal: Denies: pain Allergies: Coded Allergies: ASPARTAME (Verified Allergy, Unknown, 11/30/17) Headache Objective Vital Signs Last 24 Hour Vital Signs Date Time Temp Pulse Resp B/P (MAP) Pulse Ox O2 Delivery O2 Flow Rate FiO2 12/16/17 16:00 84 12/16/17 16:00 8.0 30 12/16/17 16:00 98.0 68 20 147/65 99 Trach Collar 30 98.0 12/16/17 13:28 151/81 12/16/17 13:14 98 Trach Collar 30 12/16/17 13:14 Trach Collar 8.0 30 12/16/17 12:00 50 12/16/17 12:00 30 12/16/17 12:00 95.0 51 20 151/81 99 Trach Collar 30 95.0 12/16/17 11:23 Trach Collar 8.0 30 12/16/17 11:22 98 Trach Collar 30 12/16/17 10:40 49 24 30 12/16/17 10:14 100 12/16/17 09:29 47 22 30 12/16/17 08:00 98.2 53 22 173/75 98 Trach Collar 30 98.2 12/16/17 08:00 45 12/16/17 08:00 30 12/16/17 07:55 Mechanical Ventilator 12/16/17 07:54 98 Mechanical Ventilator 30 12/16/17 07:20 47 25 30 12/16/17 05:31 173/70 12/16/17 05:14 52 22 30 12/16/17 04:21 43 12/16/17 04:00 30 12/16/17 04:00 98.2 55 24 173/70 99 Trach Collar 30 98.2 12/16/17 03:49 97.9 92 15 137/62 99 Trach Collar 30 97.9 12/16/17 02:42 48 19 30 12/16/17 01:15 100 Mechanical Ventilator 30 12/16/17 01:15 Mechanical Ventilator 30 12/16/17 01:14 48 21 30 12/16/17 00:00 45 12/16/17 00:00 97.0 46 23 149/73 97 Trach Collar 30 97.0 12/16/17 00:00 30 12/15/17 22:52 51 26 30 12/15/17 21:34 151/71 12/15/17 20:50 58 27 30 12/15/17 20:47 30 12/15/17 20:00 97.5 61 28 151/71 100 Trach Collar 30 97.5 12/15/17 20:00 8.0 30 12/15/17 19:25 71 12/15/17 19:17 74 16 100 Trach Collar 8.0 30 12/15/17 19:14 100 Trach Collar 8.0 30 12/15/17 19:14 Trach Collar 8.0 30 12/15/17 19:10 72 20 100 Trach Collar 8.0 30 Height (Feet): 5 Height (Inches): 8.00 Weight (Pounds): 421 General Appearance: no acute distress, other - stable, off vent, + trach HEENT: normocephalic, atraumatic, anicteric, mucous membranes moist Respiratory/Chest: lungs clear, normal breath sounds, no respiratory distress, rhonchi - bilaterally Cardiovascular: normal rate, regular rhythm, no gallop/murmur, no JVD Abdomen: normal bowel sounds, soft, non tender, no organomegaly, non distended Genitourinary: other - + vargas - urine clear Extremities: no cyanosis Skin: no rash Neurologic/Psychiatric: director of public health II-XII grossly normal, alert, responsive Lymphatic: no neck adenopathy Musculoskeletal: no effusion Objective Chest x-ray - 12/04 - Comparison: One half hour earlier Findings: Interim endotracheal intubation, endotracheal tube in good position, tip projecting approximately 4 cm above the lucía. The heart is enlarged. Lungs and pleural spaces are clear. Impression: Satisfactory endotracheal intubation Other findings as noted Chest x-ray - 12/06 - A single view chest radiograph was obtained. Findings: Endotracheal tube and nasogastric tubes are in good position unchanged. Lung volumes remain low. Lungs are essentially clear. Heart is enlarged. Bones are unremarkable. IMPRESSION: No acute findings Chest x-ray - 12/08 - IMPRESSION: Right jugular Dillan catheter in good position. No pneumothorax. Mild interstitial edema suspected. 12/10 - chest x-ray - negative (noted) 12/14 - chest x-ray - lungs clear (report noted) Microbiology Date/Time Source Procedure Growth Status 12/08/17 13:10 Blood Blood Culture - Final NO GROWTH AFTER 5 DAYS Complete 12/10/17 22:00 Sputum Gram Stain - Final Complete 12/10/17 22:00 Sputum Sputum Culture - Final NO GROWTH AFTER 48 HOURS Complete 12/06/17 12:40 Urine,Clean Catch Urine Culture - Final Tamia Tropicalis Tamia Albicans Complete 12/04/17 08:30 Rectum VRE Culture - Final Enterococcus Faecium - Vre Complete Laboratory Tests Test 12/16/17 04:00 White Blood Count 8.5 K/UL (4.8-10.8) Red Blood Count 3.54 M/UL (4.20-5.40) L Hemoglobin 10.7 G/DL (12.0-16.0) L Hematocrit 33.3 % (37.0-47.0) L Mean Corpuscular Volume 94 FL (80-99) Mean Corpuscular Hemoglobin 30.3 PG (27.0-31.0) Mean Corpuscular Hemoglobin Concent 32.2 G/DL (32.0-36.0) Red Cell Distribution Width 15.3 % (11.6-14.8) H Platelet Count 308 K/UL (150-450) Mean Platelet Volume 6.6 FL (6.5-10.1) Neutrophils (%) (Auto) 42.9 % (45.0-75.0) L Lymphocytes (%) (Auto) 44.5 % (20.0-45.0) Monocytes (%) (Auto) 8.5 % (1.0-10.0) Eosinophils (%) (Auto) 3.0 % (0.0-3.0) Basophils (%) (Auto) 1.1 % (0.0-2.0) Sodium Level 142 MMOL/L (136-145) Potassium Level 3.8 MMOL/L (3.5-5.1) Chloride Level 105 MMOL/L (98-107) Carbon Dioxide Level 32 MMOL/L (21-32) Anion Gap 5 mmol/L (5-15) Blood Urea Nitrogen 39 mg/dL (7-18) H Creatinine 1.6 MG/DL (0.55-1.30) H Estimat Glomerular Filtration Rate 40.0 mL/min (>60) Glucose Level 185 MG/DL (74-106) H Calcium Level 9.0 MG/DL (8.5-10.1) Phosphorus Level 4.5 MG/DL (2.5-4.9) Magnesium Level 1.4 MG/DL (1.8-2.4) L Total Bilirubin 0.4 MG/DL (0.2-1.0) Aspartate Amino Transf (AST/SGOT) 50 U/L (15-37) H Alanine Aminotransferase (ALT/SGPT) 58 U/L (12-78) Alkaline Phosphatase 155 U/L (46-116) H Total Protein 7.0 G/DL (6.4-8.2) Albumin 2.5 G/DL (3.4-5.0) L Globulin 4.5 g/dL Albumin/Globulin Ratio 0.6 (1.0-2.7) L Current Medications Medications (Trade) Dose Ordered Sig/Felipe Route PRN Reason Start Time Stop Time Status Last Admin Dose Admin Acetaminophen (Tylenol) 650 mg Q4H PRN NG Mild Pain 12/11/17 17:00 01/10/18 16:59 12/15/17 21:34 Acetaminophen (Tylenol) 650 mg Q4H PRN ORAL Fever (temp>100.5F) 12/11/17 17:00 01/03/18 16:59 12/16/17 08:51 Albuterol/ Ipratropium (Albuterol/ Ipratropium) 3 ml Q4H PRN HHN sob 12/12/17 11:00 12/17/17 10:59 12/15/17 19:14 Allopurinol (Zyloprim) 100 mg DAILY ORAL 12/12/17 09:00 01/04/18 08:59 12/16/17 08:46 Clotrimazole (Lotrimin) 1 applic THREE TIMES A DAY TOPIC 12/11/17 18:00 01/08/18 08:59 12/16/17 17:28 Dextrose (Dextrose 50%) 25 ml STAT PRN IV Hypoglycemia 12/11/17 17:00 01/10/18 16:59 Dextrose (Dextrose 50%) 50 ml STAT PRN IV Hypoglycemia 12/11/17 17:00 01/10/18 16:59 Diphenhydramine HCl (Benadryl) 12.5 mg Q6H PRN IVP Itching 12/11/17 17:00 01/07/18 16:59 12/12/17 04:23 Heparin Sodium (Porcine) (Heparin 5000 units/ml) 5,000 units EVERY 12 HOURS SUBQ 12/11/17 21:00 01/03/18 20:59 12/16/17 08:47 Hydralazine HCl (Apresoline) 10 mg Q4H PRN IV sbp> 160 mmHg 12/11/17 17:30 01/08/18 17:29 Hydralazine HCl (Apresoline) 50 mg EVERY 8 HOURS NG 12/13/17 22:00 01/08/18 15:44 12/16/17 13:28 Insulin Aspart (NovoLOG) AC+HS SUBQ 12/16/17 11:30 01/04/18 12:29 12/16/17 16:30 Nitroglycerin (Ntg) 0.4 mg Q5M PRN SL Prn Chest Pain 12/11/17 17:00 01/03/18 16:59 Ondansetron HCl (Zofran) 4 mg Q6H PRN IVP Nausea & Vomiting 12/11/17 17:00 01/03/18 16:59 Pantoprazole (Protonix) 40 mg EVERY 12 HOURS IVP 12/13/17 21:00 01/12/18 20:59 12/16/17 08:46 JUNI ABDUL December 16, 2017 18:28
--- NOTE | 2017-12-16 23:35 | Cardiology Progress Note ---
Assessment/Plan Assessment/Plan COVERAGE FOR DR. CUMMINGS 1. Asymptomatic sinus bradycardia, resolved. 2. Respiratory failure. S/P tracheostomy 3. Hypertension, on hydralazine to 50 q 8hr. 4. Morbid obesity. 5. History of supraventricular tachycardia. Subjective Subjective Sinus bradycardia at 55 Awake and alert. Objective Last 24 Hour Vital Signs Date Time Temp Pulse Resp B/P (MAP) Pulse Ox O2 Delivery O2 Flow Rate FiO2 12/16/17 21:46 163/75 12/16/17 21:06 57 20 30 12/16/17 19:49 Trach Collar 8.0 30 12/16/17 19:48 98 Trach Collar 8.0 30 12/16/17 19:32 71 12/16/17 19:30 59 20 30 12/16/17 16:00 84 12/16/17 16:00 8.0 30 12/16/17 16:00 98.0 68 20 147/65 99 Trach Collar 30 98.0 12/16/17 13:28 151/81 12/16/17 13:14 98 Trach Collar 30 12/16/17 13:14 Trach Collar 8.0 30 12/16/17 12:00 50 12/16/17 12:00 30 12/16/17 12:00 95.0 51 20 151/81 99 Trach Collar 30 95.0 12/16/17 11:23 Trach Collar 8.0 30 12/16/17 11:22 98 Trach Collar 30 12/16/17 10:40 49 24 30 12/16/17 10:14 100 12/16/17 09:29 47 22 30 12/16/17 08:00 98.2 53 22 173/75 98 Trach Collar 30 98.2 12/16/17 08:00 45 12/16/17 08:00 30 12/16/17 07:55 Mechanical Ventilator 12/16/17 07:54 98 Mechanical Ventilator 30 12/16/17 07:20 47 25 30 12/16/17 05:31 173/70 12/16/17 05:14 52 22 30 12/16/17 04:21 43 12/16/17 04:00 30 12/16/17 04:00 98.2 55 24 173/70 99 Trach Collar 30 98.2 12/16/17 03:49 97.9 92 15 137/62 99 Trach Collar 30 97.9 12/16/17 02:42 48 19 30 12/16/17 01:15 100 Mechanical Ventilator 30 12/16/17 01:15 Mechanical Ventilator 30 12/16/17 01:14 48 21 30 12/16/17 00:00 45 12/16/17 00:00 97.0 46 23 149/73 97 Trach Collar 30 97.0 12/16/17 00:00 30 Intake and Output 12/15/17 12/16/17 19:00 07:00 Intake Total 700 ml 75 ml Output Total 500 ml 1350 ml Balance 200 ml -1275 ml Intake Oral 700 ml 75 ml Output Urine Total 500 ml 1350 ml # Bowel Movements 2 1 2D Echo: EF 55%, Mild LVH Laboratory Tests Test 12/16/17 04:00 White Blood Count 8.5 K/UL (4.8-10.8) Red Blood Count 3.54 M/UL (4.20-5.40) L Hemoglobin 10.7 G/DL (12.0-16.0) L Hematocrit 33.3 % (37.0-47.0) L Mean Corpuscular Volume 94 FL (80-99) Mean Corpuscular Hemoglobin 30.3 PG (27.0-31.0) Mean Corpuscular Hemoglobin Concent 32.2 G/DL (32.0-36.0) Red Cell Distribution Width 15.3 % (11.6-14.8) H Platelet Count 308 K/UL (150-450) Mean Platelet Volume 6.6 FL (6.5-10.1) Neutrophils (%) (Auto) 42.9 % (45.0-75.0) L Lymphocytes (%) (Auto) 44.5 % (20.0-45.0) Monocytes (%) (Auto) 8.5 % (1.0-10.0) Eosinophils (%) (Auto) 3.0 % (0.0-3.0) Basophils (%) (Auto) 1.1 % (0.0-2.0) Sodium Level 142 MMOL/L (136-145) Potassium Level 3.8 MMOL/L (3.5-5.1) Chloride Level 105 MMOL/L (98-107) Carbon Dioxide Level 32 MMOL/L (21-32) Anion Gap 5 mmol/L (5-15) Blood Urea Nitrogen 39 mg/dL (7-18) H Creatinine 1.6 MG/DL (0.55-1.30) H Estimat Glomerular Filtration Rate 40.0 mL/min (>60) Glucose Level 185 MG/DL (74-106) H Calcium Level 9.0 MG/DL (8.5-10.1) Phosphorus Level 4.5 MG/DL (2.5-4.9) Magnesium Level 1.4 MG/DL (1.8-2.4) L Total Bilirubin 0.4 MG/DL (0.2-1.0) Aspartate Amino Transf (AST/SGOT) 50 U/L (15-37) H Alanine Aminotransferase (ALT/SGPT) 58 U/L (12-78) Alkaline Phosphatase 155 U/L (46-116) H Total Protein 7.0 G/DL (6.4-8.2) Albumin 2.5 G/DL (3.4-5.0) L Globulin 4.5 g/dL Albumin/Globulin Ratio 0.6 (1.0-2.7) L Objective HEAD AND NECK: No JVD. S/P Tracheostomy, morbidly obese LUNGS: Coarse rhonchi. CARDIOVASCULAR: Bradycardic S1 and S2 . ABDOMEN: Morbidly obese. EXTREMITIES: 1+ pitting edema. DIANDRA GARCIA December 16, 2017 23:35
--- NOTE | 2017-12-16 23:44 | General Progress Note ---
Assessment/Plan Assessment/Plan #. Coagulopathy, potentially secondary to liver problem, liver disease. --> Currently off of anticoagulation, currently inr has improved --> Administer Vit K in case patient bleeds, or inr increases #. Anemia due to underlying chronic disease. --> Continue to closely monitor. Anemia workup has been reviewed. --> Blood transfusion not required unless symptomatic or hgb <7 --> Hgb remains stable. #. Leukocytosis, potentially secondary to infection. --> Resolved at this time. #. Transaminitis as well as elevated --> Continue to closely monitor for improvement. #. Acute tubular necrosis with elevated creatinine. Continue to closely monitor. #. Obesity hypoventilation syndrome. #. Respiratory failure, status post intubation. --> s/p tracheostomy #. Acute kidney injury. The patient's creatinine within normal limits on admission, potentially secondary to shock. #. Bradycardia. --> Improved. Subjective Date patient seen: December 16, 2017 Constitutional: Denies: no symptoms, chills, diaphoresis, fever, malaise, weakness, other HEENT: Denies: no symptoms, eye pain, blurred vision, tearing, double vision, ear pain, ear discharge, nose pain, nose congestion, throat pain, throat swelling, mouth pain, mouth swelling, other Cardiovascular: Denies: no symptoms, chest pain, edema, irregular heart rate, lightheadedness, palpitations, syncope, other Respiratory: Denies: no symptoms, cough, orthopnea, shortness of breath, SOB with excertion, SOB at rest, sputum, stridor, wheezing, other Gastrointestinal/Abdominal: Denies: no symptoms, abdomen distended, abdominal pain, black stools, tarry stools, blood in stool, constipated, diarrhea, difficulty swallowing, nausea, poor appetite, poor fluid intake, rectal bleeding , vomiting, other Neurologic/Psychiatric: Denies: no symptoms, anxiety, depressed, emotional problems, headache, numbness, paresthesia, pre-existing deficit, seizure, tingling, tremors, weakness, other Allergies: Coded Allergies: ASPARTAME (Verified Allergy, Unknown, 11/30/17) Headache Subjective H/H stable. On vent. No acute events overnight. Objective Last 24 Hour Vital Signs Date Time Temp Pulse Resp B/P (MAP) Pulse Ox O2 Delivery O2 Flow Rate FiO2 12/16/17 21:46 163/75 12/16/17 21:06 57 20 30 12/16/17 19:49 Trach Collar 8.0 30 12/16/17 19:48 98 Trach Collar 8.0 30 12/16/17 19:32 71 12/16/17 19:30 59 20 30 12/16/17 16:00 84 12/16/17 16:00 8.0 30 12/16/17 16:00 98.0 68 20 147/65 99 Trach Collar 30 98.0 12/16/17 13:28 151/81 12/16/17 13:14 98 Trach Collar 30 12/16/17 13:14 Trach Collar 8.0 30 12/16/17 12:00 50 12/16/17 12:00 30 12/16/17 12:00 95.0 51 20 151/81 99 Trach Collar 30 95.0 12/16/17 11:23 Trach Collar 8.0 30 12/16/17 11:22 98 Trach Collar 30 12/16/17 10:40 49 24 30 12/16/17 10:14 100 12/16/17 09:29 47 22 30 12/16/17 08:00 98.2 53 22 173/75 98 Trach Collar 30 98.2 12/16/17 08:00 45 12/16/17 08:00 30 12/16/17 07:55 Mechanical Ventilator 12/16/17 07:54 98 Mechanical Ventilator 30 12/16/17 07:20 47 25 30 12/16/17 05:31 173/70 12/16/17 05:14 52 22 30 12/16/17 04:21 43 12/16/17 04:00 30 12/16/17 04:00 98.2 55 24 173/70 99 Trach Collar 30 98.2 12/16/17 03:49 97.9 92 15 137/62 99 Trach Collar 30 97.9 12/16/17 02:42 48 19 30 12/16/17 01:15 100 Mechanical Ventilator 30 12/16/17 01:15 Mechanical Ventilator 30 12/16/17 01:14 48 21 30 12/16/17 00:00 45 12/16/17 00:00 97.0 46 23 149/73 97 Trach Collar 30 97.0 12/16/17 00:00 30 Intake and Output 12/15/17 12/16/17 19:00 07:00 Intake Total 700 ml 75 ml Output Total 500 ml 1350 ml Balance 200 ml -1275 ml Intake Oral 700 ml 75 ml Output Urine Total 500 ml 1350 ml # Bowel Movements 2 1 Laboratory Tests 12/16/17 04:00: White Blood Count 8.5, Red Blood Count 3.54L, Hemoglobin 10.7L, Hematocrit 33.3L , Mean Corpuscular Volume 94, Mean Corpuscular Hemoglobin 30.3, Mean Corpuscular Hemoglobin Concent 32.2, Red Cell Distribution Width 15.3H, Platelet Count 308, Mean Platelet Volume 6.6, Neutrophils (%) (Auto) 42.9L, Lymphocytes (%) (Auto) 44.5, Monocytes (%) (Auto) 8.5, Eosinophils (%) (Auto) 3.0, Basophils (%) (Auto) 1.1, Sodium Level 142, Potassium Level 3.8, Chloride Level 105, Carbon Dioxide Level 32, Anion Gap 5, Blood Urea Nitrogen 39H, Creatinine 1.6H, Estimat Glomerular Filtration Rate 40.0, Glucose Level 185H, Calcium Level 9.0, Phosphorus Level 4.5, Magnesium Level 1.4L, Total Bilirubin 0.4, Aspartate Amino Transf (AST/SGOT) 50H, Alanine Aminotransferase (ALT/SGPT) 58, Alkaline Phosphatase 155H, Total Protein 7.0, Albumin 2.5L, Globulin 4.5, Albumin/Globulin Ratio 0.6L Height (Feet): 5 Height (Inches): 8.00 Weight (Pounds): 421 General Appearance: no apparent distress EENT: PERRL/EOMI, normal ENT inspection Neck: supple Cardiovascular: normal rate, regular rhythm Respiratory/Chest: chest wall non-tender, lungs clear Abdomen: normal bowel sounds, non tender Jem Palmer MD December 16, 2017 23:44
[2017-12-17] VITALS: BP 154/80
[2017-12-17 04:00] VITALS: BP 152/71
[2017-12-17 04:28] LABS: BASOPHILS % (AUTO) 1.3 % (0.0-2.0); EOSINOPHILS % (AUTO) 4.3 % (0.0-3.0); LYMPHOCYTES % (AUTO) 39.4 % (20.0-45.0); MEAN CORPUSCULAR VOLUME 95 FL (80-99); MONOCYTES % (AUTO) 10.1 % (1.0-10.0); NEUTROPHILS % (AUTO) 44.9 % (45.0-75.0); PLATELET COUNT 278 K/UL (150-450); RED BLOOD COUNT 3.57 M/UL (4.20-5.40); RED CELL DISTRIBUTION WIDTH 15.9 % (11.6-14.8); WHITE BLOOD COUNT 8.6 K/UL (4.8-10.8)
[2017-12-17 04:49] LABS: ALANINE AMINOTRANSFERASE 55 U/L (12-78); ALBUMIN 2.4 G/DL (3.4-5.0); ALBUMIN/GLOBULIN RATIO 0.6 (1.0-2.7); ALKALINE PHOSPHATASE 141 U/L (46-116); ANION GAP 4 mmol/L (5-15); ASPARTATE AMINO TRANSFERASE 49 U/L (15-37); BILIRUBIN,TOTAL 0.4 MG/DL (0.2-1.0); BLOOD UREA NITROGEN 33 mg/dL (7-18); CALCIUM 8.7 MG/DL (8.5-10.1); CARBON DIOXIDE 32 MMOL/L (21-32); CHLORIDE 106 MMOL/L (98-107); CREATININE 1.3 MG/DL (0.55-1.30); PHOSPHORUS 4.1 MG/DL (2.5-4.9); POTASSIUM 3.8 MMOL/L (3.5-5.1); SODIUM 142 MMOL/L (136-145)
[2017-12-17] MEDS: HydrALAZINE 50mg tab NG SCH ×3 (06:35→21:06)
[2017-12-17] MEDS: NovoLOG Insulin Flexpen SUBQ SCH ×4 (06:41→21:05)
[2017-12-17 08:00] VITALS: BP 144/74
[2017-12-17] MEDS: Allopurinol 100mg Tab ORAL SCH (08:29)
[2017-12-17] MEDS: Acetaminophen 650mg/20.3ml NG PRN (08:30)
[2017-12-17] MEDS: Pantoprazole Inj IVP SCH (08:30)
[2017-12-17] MEDS: Heparin 5000 units/ml inj SUBQ SCH ×2 (08:31→21:03)
--- NOTE | 2017-12-17 11:39 | Nephrology Progress Note ---
Assessment/Plan Problem List: (1) Acute renal failure (ARF) (2) Acute respiratory failure (3) Acute on chronic diastolic (congestive) heart failure (4) Elevated liver enzymes Assessment - Acute & chronic respiratory failure, - Bacteremia - ATN (acute tubular necrosis), ARF resolved - Acute encephalopathy - Aspiration pnemonia vs HCAP - Likely obesity hypoventilation syndrome - Elevated liver enzymes Plan Acute renal failure, resolved Mag supplement as needed HD last 12/11 low BP resolved resp failure , intubated, trached, resp management obese monitor renal parameters, Cr lowerin without HD Up hydralazine dose DC Dialysis cath- done Subjective ROS Limited/Unobtainable: No Constitutional: Reports: malaise Objective Objective Last 24 Hour Vital Signs Date Time Temp Pulse Resp B/P (MAP) Pulse Ox O2 Delivery O2 Flow Rate FiO2 12/17/17 10:30 96 12/17/17 08:45 70 12/17/17 08:00 97.7 81 20 144/74 97 Trach Collar 30 97.7 12/17/17 08:00 8.0 30 12/17/17 07:30 64 20 T-piece 6.0 28 12/17/17 07:27 95 Trach Collar 6.0 28 12/17/17 07:26 Trach Collar 6.0 28 12/17/17 06:35 152/71 12/17/17 04:00 97.3 60 24 152/71 99 Trach Collar 30 97.3 12/17/17 04:00 8.0 30 12/17/17 03:35 70 12/17/17 00:53 99 Trach Collar 6.0 28 12/17/17 00:53 Trach Collar 6.0 28 12/17/17 00:00 8.0 30 12/17/17 00:00 98.6 64 25 154/80 98 Trach Collar 30 98.6 12/16/17 23:25 55 12/16/17 21:46 163/75 12/16/17 21:06 57 20 30 12/16/17 20:00 98.1 65 20 163/75 98 Trach Collar 30 98.1 12/16/17 20:00 8.0 30 12/16/17 19:49 Trach Collar 8.0 30 12/16/17 19:48 98 Trach Collar 8.0 30 12/16/17 19:32 71 12/16/17 19:30 59 20 30 12/16/17 16:00 84 12/16/17 16:00 8.0 30 12/16/17 16:00 98.0 68 20 147/65 99 Trach Collar 30 98.0 12/16/17 13:28 151/81 12/16/17 13:14 98 Trach Collar 30 12/16/17 13:14 Trach Collar 8.0 30 12/16/17 12:00 50 12/16/17 12:00 30 12/16/17 12:00 95.0 51 20 151/81 99 Trach Collar 30 95.0 Intake and Output 12/16/17 12/17/17 19:00 07:00 Intake Total 600 ml Output Total 1950 ml Balance -1350 ml Intake Oral 200 ml IV Total 400 ml Output Urine Total 1950 ml # Bowel Movements 1 Laboratory Tests 12/17/17 03:35: White Blood Count 8.6, Red Blood Count 3.57L, Hemoglobin 10.0L, Hematocrit 34.0L , Mean Corpuscular Volume 95, Mean Corpuscular Hemoglobin 28.0, Mean Corpuscular Hemoglobin Concent 29.4L, Red Cell Distribution Width 15.9H, Platelet Count 278, Mean Platelet Volume 6.9, Neutrophils (%) (Auto) 44.9L, Lymphocytes (%) (Auto) 39.4, Monocytes (%) (Auto) 10.1H, Eosinophils (%) (Auto) 4.3H, Basophils (%) (Auto) 1.3, Sodium Level 142, Potassium Level 3.8, Chloride Level 106, Carbon Dioxide Level 32, Anion Gap 4L, Blood Urea Nitrogen 33H, Creatinine 1.3, Estimat Glomerular Filtration Rate 50.8, Glucose Level 161H, Calcium Level 8.7, Phosphorus Level 4.1, Magnesium Level 1.4L, Total Bilirubin 0.4, Aspartate Amino Transf (AST/SGOT) 49H, Alanine Aminotransferase (ALT/SGPT) 55, Alkaline Phosphatase 141H, Total Protein 6.7, Albumin 2.4L, Globulin 4.3, Albumin/Globulin Ratio 0.6L Height (Feet): 5 Height (Inches): 8.00 Weight (Pounds): 423 General Appearance: no apparent distress Respiratory/Chest: decreased breath sounds Abdomen: soft Objective no change AGUSTIN CONTRERAS December 17, 2017 11:39
[2017-12-17 12:00] VITALS: BP 172/72
--- NOTE | 2017-12-17 12:06 | Pulmonology Progress Note ---
Assessment/Plan Problems: (1) Acute respiratory failure with hypoxia and hypercapnia (2) Acute renal failure (ARF) (3) Morbid obesity (4) DM2 (diabetes mellitus, type 2) (5) HTN (hypertension) Respiratory: monitor respiratory rate, adjust FIO2, CXR Cardiac: continue to monitor HR/BP Renal: F/U I&O, keep IV fluid Infectious Disease: check cultures Gastrointestinal: continue feedings/current rate Endocrine: monitor blood sugar, continue sliding scale insulin Hematologic: monitor H/H, transfuse if hgb<8.5 Neurologic: PRN Ativan, keep patient comfortable Affect: PRN ativan Prophylaxis: Protonix Time Spent (Minutes): 40 Notes Reviewed: promotional model, cardio, 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 with: nurses, consultants, 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 Subjective ROS Limited/Unobtainable: No Constitutional: Reports: no symptoms HEENT: Repors: no symptoms Respiratory: Reports: no symptoms Allergies: Coded Allergies: ASPARTAME (Verified Allergy, Unknown, 11/30/17) Headache Objective Last 24 Hour Vital Signs Date Time Temp Pulse Resp B/P (MAP) Pulse Ox O2 Delivery O2 Flow Rate FiO2 12/17/17 10:30 96 12/17/17 08:45 70 12/17/17 08:00 97.7 81 20 144/74 97 Trach Collar 30 97.7 12/17/17 08:00 8.0 30 12/17/17 07:30 64 20 T-piece 6.0 28 12/17/17 07:27 95 Trach Collar 6.0 28 12/17/17 07:26 Trach Collar 6.0 28 12/17/17 06:35 152/71 12/17/17 04:00 97.3 60 24 152/71 99 Trach Collar 30 97.3 12/17/17 04:00 8.0 30 12/17/17 03:35 70 12/17/17 00:53 99 Trach Collar 6.0 28 12/17/17 00:53 Trach Collar 6.0 28 12/17/17 00:00 8.0 30 12/17/17 00:00 98.6 64 25 154/80 98 Trach Collar 30 98.6 12/16/17 23:25 55 12/16/17 21:46 163/75 12/16/17 21:06 57 20 30 12/16/17 20:00 98.1 65 20 163/75 98 Trach Collar 30 98.1 12/16/17 20:00 8.0 30 12/16/17 19:49 Trach Collar 8.0 30 12/16/17 19:48 98 Trach Collar 8.0 30 12/16/17 19:32 71 12/16/17 19:30 59 20 30 12/16/17 16:00 84 12/16/17 16:00 8.0 30 12/16/17 16:00 98.0 68 20 147/65 99 Trach Collar 30 98.0 12/16/17 13:28 151/81 12/16/17 13:14 98 Trach Collar 30 12/16/17 13:14 Trach Collar 8.0 30 Intake and Output 12/16/17 12/17/17 19:00 07:00 Intake Total 600 ml Output Total 1950 ml Balance -1350 ml Intake Oral 200 ml IV Total 400 ml Output Urine Total 1950 ml # Bowel Movements 1 General Appearance: WD/WN HEENT: normocephalic, anicteric Respiratory/Chest: chest wall non-tender, lungs clear Breasts: no masses Cardiovascular: normal peripheral pulses, normal rate Abdomen: normal bowel sounds, soft, non tender Genitourinary: normal external genitalia Extremities: no cyanosis Skin: no lesions 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 Laboratory Tests 12/17/17 03:35: White Blood Count 8.6, Red Blood Count 3.57L, Hemoglobin 10.0L, Hematocrit 34.0L , Mean Corpuscular Volume 95, Mean Corpuscular Hemoglobin 28.0, Mean Corpuscular Hemoglobin Concent 29.4L, Red Cell Distribution Width 15.9H, Platelet Count 278, Mean Platelet Volume 6.9, Neutrophils (%) (Auto) 44.9L, Lymphocytes (%) (Auto) 39.4, Monocytes (%) (Auto) 10.1H, Eosinophils (%) (Auto) 4.3H, Basophils (%) (Auto) 1.3, Sodium Level 142, Potassium Level 3.8, Chloride Level 106, Carbon Dioxide Level 32, Anion Gap 4L, Blood Urea Nitrogen 33H, Creatinine 1.3, Estimat Glomerular Filtration Rate 50.8, Glucose Level 161H, Calcium Level 8.7, Phosphorus Level 4.1, Magnesium Level 1.4L, Total Bilirubin 0.4, Aspartate Amino Transf (AST/SGOT) 49H, Alanine Aminotransferase (ALT/SGPT) 55, Alkaline Phosphatase 141H, Total Protein 6.7, Albumin 2.4L, Globulin 4.3, Albumin/Globulin Ratio 0.6L Current Medications Medications (Trade) Dose Ordered Sig/Felipe Route PRN Reason Start Time Stop Time Status Last Admin Dose Admin Acetaminophen (Tylenol) 650 mg Q4H PRN NG Mild Pain 12/11/17 17:00 01/10/18 16:59 12/17/17 08:30 Acetaminophen (Tylenol) 650 mg Q4H PRN ORAL Fever (temp>100.5F) 12/11/17 17:00 01/03/18 16:59 12/16/17 08:51 Clotrimazole (Lotrimin) 1 applic THREE TIMES A DAY TOPIC 12/11/17 18:00 01/08/18 08:59 12/17/17 08:33 Dextrose (Dextrose 50%) 25 ml STAT PRN IV Hypoglycemia 12/11/17 17:00 01/10/18 16:59 Dextrose (Dextrose 50%) 50 ml STAT PRN IV Hypoglycemia 12/11/17 17:00 01/10/18 16:59 Diphenhydramine HCl (Benadryl) 12.5 mg Q6H PRN IVP Itching 12/11/17 17:00 01/07/18 16:59 12/12/17 04:23 Famotidine (Pepcid) 20 mg BID ORAL 12/17/17 18:00 01/16/18 17:59 Heparin Sodium (Porcine) (Heparin 5000 units/ml) 5,000 units EVERY 12 HOURS SUBQ 12/11/17 21:00 01/03/18 20:59 12/17/17 08:31 Hydralazine HCl (Apresoline) 10 mg Q4H PRN IV sbp> 160 mmHg 12/11/17 17:30 01/08/18 17:29 Hydralazine HCl (Apresoline) 50 mg EVERY 8 HOURS NG 12/13/17 22:00 01/08/18 15:44 12/17/17 06:35 Insulin Aspart (NovoLOG) AC+HS SUBQ 12/16/17 11:30 01/04/18 12:29 12/17/17 06:41 Magnesium Sulfate 100 ml @ 100 mls/hr Q1H IVPB 12/17/17 12:30 12/17/17 16:29 Nitroglycerin (Ntg) 0.4 mg Q5M PRN SL Prn Chest Pain 12/11/17 17:00 01/03/18 16:59 Ondansetron HCl (Zofran) 4 mg Q6H PRN IVP Nausea & Vomiting 12/11/17 17:00 01/03/18 16:59 Yariel Malone MD December 17, 2017 12:06
--- NOTE | 2017-12-17 15:46 | General Progress Note ---
Assessment/Plan Problem List: (1) Acute toxic metabolic encephalopathy (2) Acute respiratory failure with hypoxia and hypercapnia ICD Codes: J96.01 - Acute respiratory failure with hypoxia; J96.02 - Acute respiratory failure with hypercapnia SNOMED: 79499952, 68526915, 085510571 (3) Likely obesity hypoventilation syndrome (4) Severe sepsis ICD Codes: A41.9 - Sepsis, unspecified organism; R65.20 - Severe sepsis without septic shock SNOMED: 22823019 (5) KASHIF (acute kidney injury) ICD Codes: N17.9 - Acute kidney failure, unspecified SNOMED: 93528866 (6) ATN (acute tubular necrosis) ICD Codes: N17.0 - Acute kidney failure with tubular necrosis SNOMED: 75966458 (7) Elevated liver enzymes ICD Codes: R74.8 - Abnormal levels of other serum enzymes SNOMED: 210705963 (8) Aspiration pnemonia vs HCAP (9) UTI (urinary tract infection) ICD Codes: N39.0 - Urinary tract infection, site not specified SNOMED: 46849518 Qualifiers: Qualified Codes: N39.0 - Urinary tract infection, site not specified (10) Morbid obesity ICD Codes: E66.01 - Morbid (severe) obesity due to excess calories SNOMED: 496354170, 27903808253643 (11) Chronic diastolic (congestive) heart failure ICD Codes: I50.32 - Chronic diastolic (congestive) heart failure SNOMED: 49840230, 845825459 (12) DM2 (diabetes mellitus, type 2) ICD Codes: E11.9 - Type 2 diabetes mellitus without complications SNOMED: 93695378 (13) Hypertension ICD Codes: I10 - Essential (primary) hypertension SNOMED: 20157657 (14) Fatty liver ICD Codes: K76.0 - Fatty (change of) liver, not elsewhere classified SNOMED: 416428816 (15) GERD (gastroesophageal reflux disease) ICD Codes: K21.9 - Gastro-esophageal reflux disease without esophagitis SNOMED: 650607111 (16) Asthma ICD Codes: J45.909 - Unspecified asthma, uncomplicated SNOMED: 133302895 (17) H/O supraventricular tachycardia ICD Codes: Z86.79 - Personal history of other diseases of the circulatory system SNOMED: 669606760479789 Status: stable Assessment/Plan Pulm/critical care consulted This was pt's 3rd intubation in less than 6 months. D/w pulm re likely plan for tracheostomy. D/w pt and son. Surgery consulted s/p tracheostomy on 12/10/17 Pt now weaned off vent. Doing well on trach collar. CPAP qHS Currently not requiring pressors. Goal MAP 65 and above Cardiology consulted given bradycardia. Likely 2/2 midodrine Hold midodrine s/p steroids ID consulted s/p empiric linezolid, cefepime and flagyl per ID (abx d/c'd 12/13/17) Repeat blood cx show ngtd Nephrology consulted given KASHIF HD line placed and started on HD on 12/07/17. Last HD 12/12. Hold HD for now per renal Strict I/O's Trend CBC, CMP CULINARY CHEF eval ordered--soft diet as tolerated Pass-donny speaking valve trial Pain control, bowel regimen Supportive care PPI PT/OT CM consulted for d/c plan to subacute facility vs LTACH such as [place] DVT Prophylaxis: SCD, HSQ Code Status: Full Hospital Classification Declaration: Based on this initial evaluation, and depending on the patient's clinical course, I anticipate that this patient will require hospitalization for 3-4 days for acute respiratory failure, sepsis and close respiratory/hemodynamic monitoring. Disposition: Once the patient is stable to leave the hospital, I anticipate the patient will likely be discharged to the following environment: subacute SNF vs LTACH Plan outlined above discussed with patient/family, pulm/critical care, ID regarding mgmt and dispo. D/w pulm re weaning vent. D/w ID re monitor off abx. D /w renal re monitor off HD. D/w pulm re weaned off vent, trach collar, CPAP qHS Time of note may not reflect time of encounter. Subjective Date patient seen: December 17, 2017 Time patient seen: 15:45 ROS Limited/Unobtainable: No Constitutional: Reports: no symptoms HEENT: Reports: no symptoms Cardiovascular: Reports: no symptoms Respiratory: Reports: cough, shortness of breath Gastrointestinal/Abdominal: Reports: no symptoms Genitourinary: Reports: no symptoms Neurologic/Psychiatric: Reports: no symptoms Endocrine: Reports: no symptoms Hematologic/Lymphatic: Reports: no symptoms Allergies: Coded Allergies: ASPARTAME (Verified Allergy, Unknown, 11/30/17) Headache All Systems: reviewed and negative except above Subjective No acute o/n events s/p tracheostomy POD#7 VSS LFTs downtrending Pt doing well. Awake, alert. Passed swallow eval--tolerating PO. Speaking well. Denies f/c, n/v, d/c, chest pain. SOB, cough stable Objective Last 24 Hour Vital Signs Date Time Temp Pulse Resp B/P (MAP) Pulse Ox O2 Delivery O2 Flow Rate FiO2 12/17/17 13:45 172/72 12/17/17 12:35 Trach Collar 6.0 28 12/17/17 12:35 99 Trach Collar 6.0 28 12/17/17 12:00 8.0 30 12/17/17 12:00 98.1 62 22 172/72 99 Trach Collar 30 98.1 12/17/17 12:00 67 12/17/17 10:30 96 12/17/17 08:45 70 12/17/17 08:00 97.7 81 20 144/74 97 Trach Collar 30 97.7 12/17/17 08:00 8.0 30 12/17/17 07:30 64 20 T-piece 6.0 28 12/17/17 07:27 95 Trach Collar 6.0 28 12/17/17 07:26 Trach Collar 6.0 28 12/17/17 06:35 152/71 12/17/17 04:00 97.3 60 24 152/71 99 Trach Collar 30 97.3 12/17/17 04:00 8.0 30 12/17/17 03:35 70 12/17/17 00:53 99 Trach Collar 6.0 28 12/17/17 00:53 Trach Collar 6.0 28 12/17/17 00:00 8.0 30 12/17/17 00:00 98.6 64 25 154/80 98 Trach Collar 30 98.6 12/16/17 23:25 55 12/16/17 21:46 163/75 12/16/17 21:06 57 20 30 12/16/17 20:00 98.1 65 20 163/75 98 Trach Collar 30 98.1 12/16/17 20:00 8.0 30 12/16/17 19:49 Trach Collar 8.0 30 12/16/17 19:48 98 Trach Collar 8.0 30 12/16/17 19:32 71 12/16/17 19:30 59 20 30 12/16/17 16:00 84 12/16/17 16:00 8.0 30 12/16/17 16:00 98.0 68 20 147/65 99 Trach Collar 30 98.0 Intake and Output 12/16/17 12/17/17 19:00 07:00 Intake Total 600 ml Output Total 1950 ml Balance -1350 ml Intake Oral 200 ml IV Total 400 ml Output Urine Total 1950 ml # Bowel Movements 1 Laboratory Tests 12/17/17 03:35: White Blood Count 8.6, Red Blood Count 3.57L, Hemoglobin 10.0L, Hematocrit 34.0L , Mean Corpuscular Volume 95, Mean Corpuscular Hemoglobin 28.0, Mean Corpuscular Hemoglobin Concent 29.4L, Red Cell Distribution Width 15.9H, Platelet Count 278, Mean Platelet Volume 6.9, Neutrophils (%) (Auto) 44.9L, Lymphocytes (%) (Auto) 39.4, Monocytes (%) (Auto) 10.1H, Eosinophils (%) (Auto) 4.3H, Basophils (%) (Auto) 1.3, Sodium Level 142, Potassium Level 3.8, Chloride Level 106, Carbon Dioxide Level 32, Anion Gap 4L, Blood Urea Nitrogen 33H, Creatinine 1.3, Estimat Glomerular Filtration Rate 50.8, Glucose Level 161H, Calcium Level 8.7, Phosphorus Level 4.1, Magnesium Level 1.4L, Total Bilirubin 0.4, Aspartate Amino Transf (AST/SGOT) 49H, Alanine Aminotransferase (ALT/SGPT) 55, Alkaline Phosphatase 141H, Total Protein 6.7, Albumin 2.4L, Globulin 4.3, Albumin/Globulin Ratio 0.6L Height (Feet): 5 Height (Inches): 8.00 Weight (Pounds): 423 Objective General: awake, alert, NAD, morbidly obese Head: normocephalic, without obvious abnormality, atraumatic Eyes: conjunctivae/corneas clear. PERRL, EOM's intact Throat: lips, mucosa, and tongue normal. MMM Neck: supple, symmetrical, trachea midline, +tracheostomy c/d/i Lungs:+rhonchi b/l Heart: regular rate and rhythm, S1, S2 normal, no murmur, click, rub or gallop Abdomen: soft, non-tender, non-distended, bowel sounds normal Extremities: extremities normal, atraumatic, no cyanosis or edema Pulses: 2+ and symmetric Skin: skin color, texture, turgor normal; no rashes or lesions Neurologic: sedated Cassie Bolivar M.D. December 17, 2017 15:45
--- NOTE | 2017-12-17 16:19 | Cardiac Electrophysiology PN ---
Assessment/Plan Assessment/Plan 1. Sinus bradycardia with no heart block. No further significant savannah. Watch the patient on telemetry. Asymptomatic. 2. Respiratory failure. S/P tracheostomy 3. Hypertension, on hydralazine 50 q 8hr. 4. Morbid obesity. 5. History of supraventricular tachycardia. 6. Elevated liver enzymes. 7. Renal failure. ROLLY RN Subjective Subjective Alert in NAD.No further savannah. Able to speak despite the tracheostomy. Objective Last 24 Hour Vital Signs Date Time Temp Pulse Resp B/P (MAP) Pulse Ox O2 Delivery O2 Flow Rate FiO2 12/17/17 13:45 172/72 12/17/17 12:35 Trach Collar 6.0 28 12/17/17 12:35 99 Trach Collar 6.0 28 12/17/17 12:00 8.0 30 12/17/17 12:00 98.1 62 22 172/72 99 Trach Collar 30 98.1 12/17/17 12:00 67 12/17/17 10:30 96 12/17/17 08:45 70 12/17/17 08:00 97.7 81 20 144/74 97 Trach Collar 30 97.7 12/17/17 08:00 8.0 30 12/17/17 07:30 64 20 T-piece 6.0 28 12/17/17 07:27 95 Trach Collar 6.0 28 12/17/17 07:26 Trach Collar 6.0 28 12/17/17 06:35 152/71 12/17/17 04:00 97.3 60 24 152/71 99 Trach Collar 30 97.3 12/17/17 04:00 8.0 30 12/17/17 03:35 70 12/17/17 00:53 99 Trach Collar 6.0 28 12/17/17 00:53 Trach Collar 6.0 28 12/17/17 00:00 8.0 30 12/17/17 00:00 98.6 64 25 154/80 98 Trach Collar 30 98.6 12/16/17 23:25 55 12/16/17 21:46 163/75 12/16/17 21:06 57 20 30 12/16/17 20:00 98.1 65 20 163/75 98 Trach Collar 30 98.1 12/16/17 20:00 8.0 30 12/16/17 19:49 Trach Collar 8.0 30 12/16/17 19:48 98 Trach Collar 8.0 30 12/16/17 19:32 71 12/16/17 19:30 59 20 30 Intake and Output 12/16/17 12/17/17 19:00 07:00 Intake Total 600 ml Output Total 1950 ml Balance -1350 ml Intake Oral 200 ml IV Total 400 ml Output Urine Total 1950 ml # Bowel Movements 1 Laboratory Tests Test 12/17/17 03:35 White Blood Count 8.6 K/UL (4.8-10.8) Red Blood Count 3.57 M/UL (4.20-5.40) L Hemoglobin 10.0 G/DL (12.0-16.0) L Hematocrit 34.0 % (37.0-47.0) L Mean Corpuscular Volume 95 FL (80-99) Mean Corpuscular Hemoglobin 28.0 PG (27.0-31.0) Mean Corpuscular Hemoglobin Concent 29.4 G/DL (32.0-36.0) L Red Cell Distribution Width 15.9 % (11.6-14.8) H Platelet Count 278 K/UL (150-450) Mean Platelet Volume 6.9 FL (6.5-10.1) Neutrophils (%) (Auto) 44.9 % (45.0-75.0) L Lymphocytes (%) (Auto) 39.4 % (20.0-45.0) Monocytes (%) (Auto) 10.1 % (1.0-10.0) H Eosinophils (%) (Auto) 4.3 % (0.0-3.0) H Basophils (%) (Auto) 1.3 % (0.0-2.0) Sodium Level 142 MMOL/L (136-145) Potassium Level 3.8 MMOL/L (3.5-5.1) Chloride Level 106 MMOL/L (98-107) Carbon Dioxide Level 32 MMOL/L (21-32) Anion Gap 4 mmol/L (5-15) L Blood Urea Nitrogen 33 mg/dL (7-18) H Creatinine 1.3 MG/DL (0.55-1.30) Estimat Glomerular Filtration Rate 50.8 mL/min (>60) Glucose Level 161 MG/DL (74-106) H Calcium Level 8.7 MG/DL (8.5-10.1) Phosphorus Level 4.1 MG/DL (2.5-4.9) Magnesium Level 1.4 MG/DL (1.8-2.4) L Total Bilirubin 0.4 MG/DL (0.2-1.0) Aspartate Amino Transf (AST/SGOT) 49 U/L (15-37) H Alanine Aminotransferase (ALT/SGPT) 55 U/L (12-78) Alkaline Phosphatase 141 U/L (46-116) H Total Protein 6.7 G/DL (6.4-8.2) Albumin 2.4 G/DL (3.4-5.0) L Globulin 4.3 g/dL Albumin/Globulin Ratio 0.6 (1.0-2.7) L Objective HEAD AND NECK: No JVD. S/P Tracheostomy LUNGS: Coarse rhonchi. CARDIOVASCULAR: Bradycardic S1 and S2 . ABDOMEN: Morbidly obese. EXTREMITIES: 1+ pitting edema. Melvin Bejarano MD December 17, 2017 16:19
[2017-12-17 16:30] VITALS: BP 177/76
[2017-12-17] MEDS ORDERED: Acetaminophen 650mg/20.3ml NG PRN (17:27)
[2017-12-17] MEDS ORDERED: DiphenhydrAMINE 50mg/ml Inj IVP PRN (17:28)
[2017-12-17] MEDS ORDERED: Nitroglycerin Subl 0.4mg tab SL PRN (17:29)
[2017-12-17 20:00] VITALS: BP 159/82
--- NOTE | 2017-12-17 23:24 | General Progress Note ---
Assessment/Plan Assessment/Plan #. Anemia due to underlying chronic disease. --> Continue to closely monitor. Anemia workup has been reviewed. --> Blood transfusion not required unless symptomatic or hgb <7 --> Hgb remains stable. Does not need transfusion. #. Coagulopathy, potentially secondary to liver problem, liver disease. --> Currently off of anticoagulation, currently inr has improved --> Administer Vit K in case patient bleeds, or inr increases #. Leukocytosis, potentially secondary to infection. --> Resolved at this time. #. Transaminitis as well as elevated --> Continue to closely monitor for improvement. #. Acute tubular necrosis with elevated creatinine. Continue to closely monitor. #. Obesity hypoventilation syndrome. --> Morbid obesity. #. Respiratory failure, status post intubation. --> s/p tracheostomy #. Acute kidney injury. The patient's creatinine within normal limits on admission, potentially secondary to shock. #. Bradycardia. --> Improved. Subjective Date patient seen: December 17, 2017 Constitutional: Denies: no symptoms, chills, diaphoresis, fever, malaise, weakness, other HEENT: Denies: no symptoms, eye pain, blurred vision, tearing, double vision, ear pain, ear discharge, nose pain, nose congestion, throat pain, throat swelling, mouth pain, mouth swelling, other Respiratory: Denies: no symptoms, cough, orthopnea, shortness of breath, SOB with excertion, SOB at rest, sputum, stridor, wheezing, other Gastrointestinal/Abdominal: Denies: no symptoms, abdomen distended, abdominal pain, black stools, tarry stools, blood in stool, constipated, diarrhea, difficulty swallowing, nausea, poor appetite, poor fluid intake, rectal bleeding , vomiting, other Genitourinary: Denies: no symptoms, burning, discharge, frequency, flank pain, hematuria, incontinence, pain, urgency, other Neurologic/Psychiatric: Denies: no symptoms, anxiety, depressed, emotional problems, headache, numbness, paresthesia, pre-existing deficit, seizure, tingling, tremors, weakness, other Hematologic/Lymphatic: Reports: anemia Allergies: Coded Allergies: ASPARTAME (Verified Allergy, Unknown, 11/30/17) Headache Subjective Hypertensive. On vent. No acute events overnight. Objective Last 24 Hour Vital Signs Date Time Temp Pulse Resp B/P (MAP) Pulse Ox O2 Delivery O2 Flow Rate FiO2 12/17/17 21:06 159/82 12/17/17 20:30 Trach Collar 6.0 28 12/17/17 20:30 98 Trach Collar 8.0 30 12/17/17 20:30 58 20 Trach Collar 8.0 30 12/17/17 16:49 177/76 12/17/17 16:30 97.9 55 22 177/76 100 Trach Collar 30 97.9 12/17/17 16:00 8.0 30 12/17/17 16:00 57 12/17/17 13:45 172/72 12/17/17 12:35 Trach Collar 6.0 28 12/17/17 12:35 99 Trach Collar 6.0 28 12/17/17 12:00 8.0 30 12/17/17 12:00 98.1 62 22 172/72 99 Trach Collar 30 98.1 12/17/17 12:00 67 12/17/17 10:30 96 12/17/17 08:45 70 12/17/17 08:00 97.7 81 20 144/74 97 Trach Collar 30 97.7 12/17/17 08:00 8.0 30 12/17/17 07:30 64 20 T-piece 6.0 28 12/17/17 07:27 95 Trach Collar 6.0 28 12/17/17 07:26 Trach Collar 6.0 28 12/17/17 06:35 152/71 12/17/17 04:00 97.3 60 24 152/71 99 Trach Collar 30 97.3 12/17/17 04:00 8.0 30 12/17/17 03:35 70 12/17/17 00:53 99 Trach Collar 6.0 28 12/17/17 00:53 Trach Collar 6.0 28 12/17/17 00:00 8.0 30 12/17/17 00:00 98.6 64 25 154/80 98 Trach Collar 30 98.6 12/16/17 23:25 55 Intake and Output 12/16/17 12/17/17 19:00 07:00 Intake Total 600 ml Output Total 1950 ml Balance -1350 ml Intake Oral 200 ml IV Total 400 ml Output Urine Total 1950 ml # Bowel Movements 1 Laboratory Tests 12/17/17 03:35: White Blood Count 8.6, Red Blood Count 3.57L, Hemoglobin 10.0L, Hematocrit 34.0L , Mean Corpuscular Volume 95, Mean Corpuscular Hemoglobin 28.0, Mean Corpuscular Hemoglobin Concent 29.4L, Red Cell Distribution Width 15.9H, Platelet Count 278, Mean Platelet Volume 6.9, Neutrophils (%) (Auto) 44.9L, Lymphocytes (%) (Auto) 39.4, Monocytes (%) (Auto) 10.1H, Eosinophils (%) (Auto) 4.3H, Basophils (%) (Auto) 1.3, Sodium Level 142, Potassium Level 3.8, Chloride Level 106, Carbon Dioxide Level 32, Anion Gap 4L, Blood Urea Nitrogen 33H, Creatinine 1.3, Estimat Glomerular Filtration Rate 50.8, Glucose Level 161H, Calcium Level 8.7, Phosphorus Level 4.1, Magnesium Level 1.4L, Total Bilirubin 0.4, Aspartate Amino Transf (AST/SGOT) 49H, Alanine Aminotransferase (ALT/SGPT) 55, Alkaline Phosphatase 141H, Total Protein 6.7, Albumin 2.4L, Globulin 4.3, Albumin/Globulin Ratio 0.6L Height (Feet): 5 Height (Inches): 8.00 Weight (Pounds): 423 General Appearance: no apparent distress Cardiovascular: no JVD Respiratory/Chest: decreased breath sounds, crackles/rales Abdomen: normal bowel sounds, non tender Edema: trace edema Jem Palmer MD December 17, 2017 23:24
[2017-12-18] VITALS: BP 146/65
[2017-12-18 04:00] VITALS: BP 110/72
[2017-12-18] MEDS: HydrALAZINE 50mg tab NG SCH ×3 (06:00→22:00)
[2017-12-18] MEDS: NovoLOG Insulin Flexpen SUBQ SCH ×4 (06:30→22:38)
[2017-12-18 08:00] VITALS: BP 145/71
[2017-12-18] MEDS: Heparin 5000 units/ml inj SUBQ SCH ×2 (09:59→22:39)
--- NOTE | 2017-12-18 10:39 | Nephrology Progress Note ---
Assessment/Plan Problem List: (1) Acute renal failure (ARF) (2) Acute respiratory failure (3) Acute on chronic diastolic (congestive) heart failure (4) Elevated liver enzymes Assessment - Acute & chronic respiratory failure, - Bacteremia - ATN (acute tubular necrosis), ARF resolved - Acute encephalopathy - Aspiration pnemonia vs HCAP - Likely obesity hypoventilation syndrome - Elevated liver enzymes Plan no labs today yet Acute renal failure, resolved Mag supplement as needed HD last 12/11 low BP resolved resp failure , intubated, trached, resp management obese monitor renal parameters, Cr lowerin without HD Up hydralazine dose DC Dialysis cath- done Subjective ROS Limited/Unobtainable: No Constitutional: Reports: malaise Objective Objective Last 24 Hour Vital Signs Date Time Temp Pulse Resp B/P (MAP) Pulse Ox O2 Delivery O2 Flow Rate FiO2 12/18/17 08:00 97.8 63 14 145/71 100 Trach Collar 30 97.8 12/18/17 08:00 8.0 30 12/18/17 07:42 Trach Collar 6.0 28 12/18/17 07:42 62 20 Trach Collar 6.0 28 12/18/17 07:42 98 Trach Collar 6.0 28 12/18/17 06:00 110/72 12/18/17 04:00 8.0 30 12/18/17 04:00 69 12/18/17 04:00 98.6 70 24 110/72 97 Trach Collar 30 98.6 12/18/17 00:50 99 T-piece 6.0 28 12/18/17 00:50 T-piece 6.0 28 12/18/17 00:00 8.0 30 12/18/17 00:00 69 12/18/17 00:00 98.5 61 23 146/65 94 98.5 12/17/17 21:06 159/82 12/17/17 20:30 Trach Collar 6.0 28 12/17/17 20:30 98 Trach Collar 8.0 30 12/17/17 20:30 58 20 Trach Collar 8.0 30 12/17/17 20:00 8.0 30 12/17/17 20:00 98.4 72 23 159/82 97 Trach Collar 30 98.4 12/17/17 20:00 67 12/17/17 16:49 177/76 12/17/17 16:30 97.9 55 22 177/76 100 Trach Collar 30 97.9 12/17/17 16:00 8.0 30 12/17/17 16:00 57 12/17/17 13:45 172/72 12/17/17 12:35 Trach Collar 6.0 28 12/17/17 12:35 99 Trach Collar 6.0 28 12/17/17 12:00 8.0 30 12/17/17 12:00 98.1 62 22 172/72 99 Trach Collar 30 98.1 12/17/17 12:00 67 Intake and Output 12/17/17 12/18/17 19:00 07:00 Intake Total 1050 ml Output Total 3425 ml 3000 ml Balance -2375 ml -3000 ml Intake Oral 850 ml IV Total 200 ml Output Urine Total 3425 ml 3000 ml # Bowel Movements 1 Laboratory Tests 12/18/17 10:10: White Blood Count [Pending], Red Blood Count [Pending], Hemoglobin [Pending], Hematocrit [Pending], Mean Corpuscular Volume [Pending], Mean Corpuscular Hemoglobin [Pending], Mean Corpuscular Hemoglobin Concent [Pending], Red Cell Distribution Width [Pending], Platelet Count [Pending], Mean Platelet Volume [ Pending], Neutrophils (%) (Auto) [Pending], Lymphocytes (%) (Auto) [Pending], Monocytes (%) (Auto) [Pending], Eosinophils (%) (Auto) [Pending], Basophils (%) (Auto) [Pending], Sodium Level [Pending], Potassium Level [Pending], Chloride Level [Pending], Carbon Dioxide Level [Pending], Blood Urea Nitrogen [Pending], Creatinine [Pending], Estimat Glomerular Filtration Rate [Pending], Glucose Level [Pending], Uric Acid [Pending], Calcium Level [Pending], Phosphorus Level [Pending], Magnesium Level [Pending], Total Bilirubin [Pending], Aspartate Amino Transf (AST/SGOT) [Pending], Alanine Aminotransferase (ALT/SGPT) [Pending] , Alkaline Phosphatase [Pending], Total Protein [Pending], Albumin [Pending], Globulin [Pending] Height (Feet): 5 Height (Inches): 8.00 Weight (Pounds): 416 EENT: other - trached Cardiovascular: normal rate Respiratory/Chest: decreased breath sounds Abdomen: soft Objective no change AGUSTIN CONTRERAS December 18, 2017 10:39
[2017-12-18 10:53] LABS: BASOPHILS % (AUTO) 1.1 % (0.0-2.0); EOSINOPHILS % (AUTO) 5.1 % (0.0-3.0); HEMATOCRIT 34.3 % (37.0-47.0); HEMOGLOBIN 10.3 G/DL (12.0-16.0); LYMPHOCYTES % (AUTO) 42.6 % (20.0-45.0); MEAN CORPUSCULAR VOLUME 95 FL (80-99); MONOCYTES % (AUTO) 12.5 % (1.0-10.0); NEUTROPHILS % (AUTO) 38.7 % (45.0-75.0); PLATELET COUNT 289 K/UL (150-450); RED BLOOD COUNT 3.62 M/UL (4.20-5.40); RED CELL DISTRIBUTION WIDTH 15.6 % (11.6-14.8); WHITE BLOOD COUNT 7.7 K/UL (4.8-10.8)
[2017-12-18 11:09] LABS: ANION GAP 2 mmol/L (5-15); BLOOD UREA NITROGEN 24 mg/dL (7-18); CALCIUM 8.6 MG/DL (8.5-10.1); CARBON DIOXIDE 37 MMOL/L (21-32); CHLORIDE 105 MMOL/L (98-107); CREATININE 1.1 MG/DL (0.55-1.30); SODIUM 144 MMOL/L (136-145)
[2017-12-18 11:11] LABS: ALANINE AMINOTRANSFERASE 51 U/L (12-78); ALBUMIN 2.5 G/DL (3.4-5.0); ALBUMIN/GLOBULIN RATIO 0.6 (1.0-2.7); ALKALINE PHOSPHATASE 132 U/L (46-116); ASPARTATE AMINO TRANSFERASE 48 U/L (15-37); BILIRUBIN,TOTAL 0.3 MG/DL (0.2-1.0); PHOSPHORUS 4.2 MG/DL (2.5-4.9)
[2017-12-18 12:00] VITALS: BP 171/81
--- NOTE | 2017-12-18 12:26 | Pulmonology Progress Note ---
Assessment/Plan Problems: (1) Acute respiratory failure with hypoxia and hypercapnia (2) Acute renal failure (ARF) (3) Morbid obesity (4) DM2 (diabetes mellitus, type 2) (5) HTN (hypertension) Respiratory: monitor respiratory rate, adjust FIO2, CXR Cardiac: continue to monitor HR/BP Renal: F/U I&O Infectious Disease: check cultures Gastrointestinal: continue feedings/current rate Endocrine: monitor blood sugar, check TSH, continue sliding scale insulin Hematologic: monitor H/H Neurologic: PRN Ativan Affect: PRN ativan Prophylaxis: Protonix Notes Reviewed: log peeler, cardio, 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 with: nurses, consultants, case assembler Subjective ROS Limited/Unobtainable: No Constitutional: Reports: no symptoms HEENT: Repors: no symptoms Respiratory: Reports: no symptoms Allergies: Coded Allergies: ASPARTAME (Verified Allergy, Unknown, 11/30/17) Headache Objective Last 24 Hour Vital Signs Date Time Temp Pulse Resp B/P (MAP) Pulse Ox O2 Delivery O2 Flow Rate FiO2 12/18/17 12:00 97.7 44 16 171/81 100 Trach Collar 30 97.7 12/18/17 08:00 97.8 63 14 145/71 100 Trach Collar 30 97.8 12/18/17 08:00 8.0 30 12/18/17 08:00 69 12/18/17 07:42 Trach Collar 6.0 28 12/18/17 07:42 62 20 Trach Collar 6.0 28 12/18/17 07:42 98 Trach Collar 6.0 28 12/18/17 06:00 110/72 12/18/17 04:00 8.0 30 12/18/17 04:00 69 12/18/17 04:00 98.6 70 24 110/72 97 Trach Collar 30 98.6 12/18/17 00:50 99 T-piece 6.0 28 12/18/17 00:50 T-piece 6.0 28 12/18/17 00:00 8.0 30 12/18/17 00:00 69 12/18/17 00:00 98.5 61 23 146/65 94 98.5 12/17/17 21:06 159/82 12/17/17 20:30 Trach Collar 6.0 28 12/17/17 20:30 98 Trach Collar 8.0 30 12/17/17 20:30 58 20 Trach Collar 8.0 30 12/17/17 20:00 8.0 30 12/17/17 20:00 98.4 72 23 159/82 97 Trach Collar 30 98.4 12/17/17 20:00 67 12/17/17 16:49 177/76 12/17/17 16:30 97.9 55 22 177/76 100 Trach Collar 30 97.9 12/17/17 16:00 8.0 30 12/17/17 16:00 57 12/17/17 13:45 172/72 12/17/17 12:35 Trach Collar 6.0 28 12/17/17 12:35 99 Trach Collar 6.0 28 Intake and Output 12/17/17 12/18/17 19:00 07:00 Intake Total 1050 ml Output Total 3425 ml 3000 ml Balance -2375 ml -3000 ml Intake Oral 850 ml IV Total 200 ml Output Urine Total 3425 ml 3000 ml # Bowel Movements 1 General Appearance: WD/WN, no acute distress HEENT: status post trach Respiratory/Chest: chest wall non-tender, lungs clear Cardiovascular: normal peripheral pulses, normal rate, regular rhythm Abdomen: normal bowel sounds, soft, non tender Genitourinary: normal external genitalia Extremities: no cyanosis Skin: no ulcers 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 Lymphatic: no neck adenopathy Laboratory Tests 12/18/17 10:10: White Blood Count 7.7, Red Blood Count 3.62L, Hemoglobin 10.3L, Hematocrit 34.3L , Mean Corpuscular Volume 95, Mean Corpuscular Hemoglobin 28.5, Mean Corpuscular Hemoglobin Concent 30.1L, Red Cell Distribution Width 15.6H, Platelet Count 289, Mean Platelet Volume 7.7, Neutrophils (%) (Auto) 38.7L, Lymphocytes (%) (Auto) 42.6, Monocytes (%) (Auto) 12.5H, Eosinophils (%) (Auto) 5.1H, Basophils (%) (Auto) 1.1, Sodium Level 144, Potassium Level 4.0, Chloride Level 105, Carbon Dioxide Level 37H, Anion Gap 2L, Blood Urea Nitrogen 24H, Creatinine 1.1, Estimat Glomerular Filtration Rate > 60, Glucose Level 186H, Uric Acid 7.3H, Calcium Level 8.6, Phosphorus Level 4.2, Magnesium Level 1.3L, Total Bilirubin 0.3, Aspartate Amino Transf (AST/SGOT) 48H, Alanine Aminotransferase (ALT/SGPT) 51, Alkaline Phosphatase 132H, Total Protein 7.0, Albumin 2.5L, Globulin 4.5, Albumin/Globulin Ratio 0.6L Current Medications Medications (Trade) Dose Ordered Sig/Felipe Route PRN Reason Start Time Stop Time Status Last Admin Dose Admin Acetaminophen (Tylenol) 650 mg Q4H PRN NG Mild Pain 12/17/17 17:27 01/10/18 17:26 Acetaminophen (Tylenol) 650 mg Q4H PRN ORAL Fever (temp>100.5F) 12/17/17 17:27 01/03/18 17:26 Clotrimazole (Lotrimin) 1 applic THREE TIMES A DAY TOPIC 12/17/17 18:00 01/08/18 08:59 12/18/17 09:00 Dextrose (Dextrose 50%) 25 ml STAT PRN IV Hypoglycemia BS 60-69mg/dl 12/18/17 17:28 01/10/18 17:27 Dextrose (Dextrose 50%) 50 ml STAT PRN IV Hypoglycemia BS less than 60mg 12/18/17 17:28 01/10/18 17:27 Diphenhydramine HCl (Benadryl) 12.5 mg Q6H PRN IVP Itching 12/17/17 17:28 01/07/18 17:27 Famotidine (Pepcid) 20 mg BID ORAL 12/17/17 18:00 01/16/18 17:59 12/18/17 09:57 Heparin Sodium (Porcine) (Heparin 5000 units/ml) 5,000 units EVERY 12 HOURS SUBQ 12/17/17 21:00 01/03/18 20:59 12/18/17 09:59 Hydralazine HCl (Apresoline) 10 mg Q4H PRN IV sbp> 160 mmHg 12/17/17 17:29 01/08/18 17:28 Hydralazine HCl (Apresoline) 50 mg EVERY 8 HOURS NG 12/17/17 22:00 01/08/18 15:44 12/18/17 06:00 Insulin Aspart (NovoLOG) AC+HS SUBQ 12/17/17 21:00 01/04/18 12:29 12/18/17 06:30 Nitroglycerin (Ntg) 0.4 mg Q5M PRN SL Prn Chest Pain 12/17/17 17:29 01/03/18 17:28 Ondansetron HCl (Zofran) 4 mg Q6H PRN IVP Nausea & Vomiting 12/17/17 17:30 01/03/18 17:29 Yariel Malone MD December 18, 2017 12:26
--- NOTE | 2017-12-18 13:09 | General Progress Note ---
Assessment/Plan Problem List: (1) UTI (urinary tract infection) ICD Codes: N39.0 - Urinary tract infection, site not specified SNOMED: 41038051 Qualifiers: Qualified Codes: N39.0 - Urinary tract infection, site not specified (2) Morbid obesity ICD Codes: E66.01 - Morbid (severe) obesity due to excess calories SNOMED: 192870898, 19715687146762 (3) Fatty liver ICD Codes: K76.0 - Fatty (change of) liver, not elsewhere classified SNOMED: 179566372 (4) Acute respiratory failure with hypoxia and hypercapnia ICD Codes: J96.01 - Acute respiratory failure with hypoxia; J96.02 - Acute respiratory failure with hypercapnia SNOMED: 71464197, 81246900, 024133620 (5) GERD (gastroesophageal reflux disease) ICD Codes: K21.9 - Gastro-esophageal reflux disease without esophagitis SNOMED: 417198043 (6) Asthma ICD Codes: J45.909 - Unspecified asthma, uncomplicated SNOMED: 960498509 (7) HTN (hypertension) ICD Codes: I10 - Essential (primary) hypertension SNOMED: 50620717 (8) Hepatitis B core antibody positive ICD Codes: R76.8 - Other specified abnormal immunological findings in serum SNOMED: 439724897 (9) DM2 (diabetes mellitus, type 2) ICD Codes: E11.9 - Type 2 diabetes mellitus without complications SNOMED: 96015213 (10) Likely obesity hypoventilation syndrome (11) lives at snf (12) Severe sepsis ICD Codes: A41.9 - Sepsis, unspecified organism; R65.20 - Severe sepsis without septic shock SNOMED: 14167452 (13) Elevated liver enzymes ICD Codes: R74.8 - Abnormal levels of other serum enzymes SNOMED: 010970502 (14) Acute toxic metabolic encephalopathy (15) Aspiration pnemonia vs HCAP (16) KASHIF (acute kidney injury) ICD Codes: N17.9 - Acute kidney failure, unspecified SNOMED: 61234130 (17) ATN (acute tubular necrosis) ICD Codes: N17.0 - Acute kidney failure with tubular necrosis SNOMED: 40383437 (18) Acute on chronic diastolic (congestive) heart failure ICD Codes: I50.33 - Acute on chronic diastolic (congestive) heart failure SNOMED: 23538567, 511846697 (19) Bacteremia ICD Codes: R78.81 - Bacteremia SNOMED: 6527709 (20) Septic shock ICD Codes: A41.9 - Sepsis, unspecified organism; R65.21 - Severe sepsis with septic shock SNOMED: 98732821 (21) Hypokalemia ICD Codes: E87.6 - Hypokalemia SNOMED: 70047367 (22) Multiple organ failure SNOMED: 48115905 (23) HCAP 2/2 MRSA (24) Elevated troponin I level ICD Codes: R74.8 - Abnormal levels of other serum enzymes SNOMED: 448472504 (25) Acute renal failure (ARF) ICD Codes: N17.9 - Acute kidney failure, unspecified SNOMED: 14285983 (26) Shock liver ICD Codes: K72.00 - Acute and subacute hepatic failure without coma SNOMED: 112203608 (27) Lactic acid acidosis ICD Codes: E87.2 - Acidosis SNOMED: 94157857 (28) Anemia ICD Codes: D64.9 - Anemia, unspecified SNOMED: 132083512 Status: stable Assessment/Plan Cont YESI care Pulm/critical care consulted Cont on vent and wean as tolerated Pulm/critical care consulted This was pt's 3rd intubation in less than 6 months. D/w pulm re likely plan for tracheostomy. D/w pt and son. Surgery consulted s/p tracheostomy on 12/10/17 Pt now weaned off vent. Doing well on trach collar. CPAP qHS Currently not requiring pressors. Goal MAP 65 and above Cardiology consulted given bradycardia. Likely 2/2 midodrine Hold midodrine s/p steroids ID consulted s/p empiric linezolid, cefepime and flagyl per ID (abx d/c'd 12/13/17) Repeat blood cx show ngtd Nephrology consulted given KASHIF HD line placed and started on HD on 12/07/17. Last HD 12/11. HD catheter removed. 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 Disposition: Once the patient is stable to leave the hospital, I anticipate the patient will likely be discharged to the following environment: subacute SNF vs LTACH Plan outlined above discussed with patient/family, pulm/critical care, ID regarding mgmt and dispo. D/w pulm re weaning vent. D/w ID re monitor off abx. D /w renal re monitor off HD. D/w pulm re weaned off vent, trach collar, CPAP qHS Time of note may not reflect time of encounter. Subjective Date patient seen: December 18, 2017 Time patient seen: 13:06 Allergies: Coded Allergies: ASPARTAME (Verified Allergy, Unknown, 11/30/17) Headache Subjective - doing well - AF, HDS - pending LTACH placement Objective Last 24 Hour Vital Signs Date Time Temp Pulse Resp B/P (MAP) Pulse Ox O2 Delivery O2 Flow Rate FiO2 12/18/17 12:00 97.7 44 16 171/81 100 Trach Collar 30 97.7 12/18/17 08:00 97.8 63 14 145/71 100 Trach Collar 30 97.8 12/18/17 08:00 8.0 30 12/18/17 08:00 69 12/18/17 07:42 Trach Collar 6.0 28 12/18/17 07:42 62 20 Trach Collar 6.0 28 12/18/17 07:42 98 Trach Collar 6.0 28 12/18/17 06:00 110/72 12/18/17 04:00 8.0 30 12/18/17 04:00 69 12/18/17 04:00 98.6 70 24 110/72 97 Trach Collar 30 98.6 12/18/17 00:50 99 T-piece 6.0 28 12/18/17 00:50 T-piece 6.0 28 12/18/17 00:00 8.0 30 12/18/17 00:00 69 12/18/17 00:00 98.5 61 23 146/65 94 98.5 12/17/17 21:06 159/82 12/17/17 20:30 Trach Collar 6.0 28 12/17/17 20:30 98 Trach Collar 8.0 30 12/17/17 20:30 58 20 Trach Collar 8.0 30 12/17/17 20:00 8.0 30 12/17/17 20:00 98.4 72 23 159/82 97 Trach Collar 30 98.4 12/17/17 20:00 67 12/17/17 16:49 177/76 12/17/17 16:30 97.9 55 22 177/76 100 Trach Collar 30 97.9 12/17/17 16:00 8.0 30 12/17/17 16:00 57 12/17/17 13:45 172/72 Intake and Output 12/17/17 12/18/17 19:00 07:00 Intake Total 1050 ml Output Total 3425 ml 3000 ml Balance -2375 ml -3000 ml Intake Oral 850 ml IV Total 200 ml Output Urine Total 3425 ml 3000 ml # Bowel Movements 1 Laboratory Tests 12/18/17 10:10: White Blood Count 7.7, Red Blood Count 3.62L, Hemoglobin 10.3L, Hematocrit 34.3L , Mean Corpuscular Volume 95, Mean Corpuscular Hemoglobin 28.5, Mean Corpuscular Hemoglobin Concent 30.1L, Red Cell Distribution Width 15.6H, Platelet Count 289, Mean Platelet Volume 7.7, Neutrophils (%) (Auto) 38.7L, Lymphocytes (%) (Auto) 42.6, Monocytes (%) (Auto) 12.5H, Eosinophils (%) (Auto) 5.1H, Basophils (%) (Auto) 1.1, Sodium Level 144, Potassium Level 4.0, Chloride Level 105, Carbon Dioxide Level 37H, Anion Gap 2L, Blood Urea Nitrogen 24H, Creatinine 1.1, Estimat Glomerular Filtration Rate > 60, Glucose Level 186H, Uric Acid 7.3H, Calcium Level 8.6, Phosphorus Level 4.2, Magnesium Level 1.3L, Total Bilirubin 0.3, Aspartate Amino Transf (AST/SGOT) 48H, Alanine Aminotransferase (ALT/SGPT) 51, Alkaline Phosphatase 132H, Total Protein 7.0, Albumin 2.5L, Globulin 4.5, Albumin/Globulin Ratio 0.6L Height (Feet): 5 Height (Inches): 8.00 Weight (Pounds): 416 General Appearance: no apparent distress, alert, morbidly obese EENT: PERRL/EOMI, other Neck: other - trach collar Cardiovascular: normal peripheral pulses, normal rate, regular rhythm Respiratory/Chest: chest wall non-tender, lungs clear Abdomen: normal bowel sounds, non tender, soft 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
[2017-12-18] MEDS ORDERED: Succinylcholine 20mg/ml 10ml vial ONE (13:51)
--- NOTE | 2017-12-18 14:35 | Cardiac Electrophysiology PN ---
Assessment/Plan Assessment/Plan 1. Sinus bradycardia. No further significant savannah. HR>50s. Asymptomatic. 2. Respiratory failure. S/P tracheostomy 3. Hypertension, on hydralazine 50 q 8hr. 4. Morbid obesity. 5. History of supraventricular tachycardia. 6. Elevated liver enzymes. 7. Renal failure. ROLLY RN Subjective Subjective Alert in NAD.Lowest HR was 54 now 73. Objective Last 24 Hour Vital Signs Date Time Temp Pulse Resp B/P (MAP) Pulse Ox O2 Delivery O2 Flow Rate FiO2 12/18/17 13:39 171/81 12/18/17 13:28 Trach Collar 6.0 28 12/18/17 13:28 98 Trach Collar 6.0 28 12/18/17 12:00 97.7 44 16 171/81 100 Trach Collar 30 97.7 12/18/17 12:00 8.0 30 12/18/17 08:00 97.8 63 14 145/71 100 Trach Collar 30 97.8 12/18/17 08:00 8.0 30 12/18/17 08:00 69 12/18/17 07:42 Trach Collar 6.0 28 12/18/17 07:42 62 20 Trach Collar 6.0 28 12/18/17 07:42 98 Trach Collar 6.0 28 12/18/17 06:00 110/72 12/18/17 04:00 8.0 30 12/18/17 04:00 69 12/18/17 04:00 98.6 70 24 110/72 97 Trach Collar 30 98.6 12/18/17 00:50 99 T-piece 6.0 28 12/18/17 00:50 T-piece 6.0 28 12/18/17 00:00 8.0 30 12/18/17 00:00 69 12/18/17 00:00 98.5 61 23 146/65 94 98.5 12/17/17 21:06 159/82 12/17/17 20:30 Trach Collar 6.0 28 12/17/17 20:30 98 Trach Collar 8.0 30 12/17/17 20:30 58 20 Trach Collar 8.0 30 12/17/17 20:00 8.0 30 12/17/17 20:00 98.4 72 23 159/82 97 Trach Collar 30 98.4 12/17/17 20:00 67 12/17/17 16:49 177/76 12/17/17 16:30 97.9 55 22 177/76 100 Trach Collar 30 97.9 12/17/17 16:00 8.0 30 12/17/17 16:00 57 Intake and Output 12/17/17 12/18/17 19:00 07:00 Intake Total 1050 ml Output Total 3425 ml 3000 ml Balance -2375 ml -3000 ml Intake Oral 850 ml IV Total 200 ml Output Urine Total 3425 ml 3000 ml # Bowel Movements 1 Laboratory Tests Test 12/18/17 10:10 White Blood Count 7.7 K/UL (4.8-10.8) Red Blood Count 3.62 M/UL (4.20-5.40) L Hemoglobin 10.3 G/DL (12.0-16.0) L Hematocrit 34.3 % (37.0-47.0) L Mean Corpuscular Volume 95 FL (80-99) Mean Corpuscular Hemoglobin 28.5 PG (27.0-31.0) Mean Corpuscular Hemoglobin Concent 30.1 G/DL (32.0-36.0) L Red Cell Distribution Width 15.6 % (11.6-14.8) H Platelet Count 289 K/UL (150-450) Mean Platelet Volume 7.7 FL (6.5-10.1) Neutrophils (%) (Auto) 38.7 % (45.0-75.0) L Lymphocytes (%) (Auto) 42.6 % (20.0-45.0) Monocytes (%) (Auto) 12.5 % (1.0-10.0) H Eosinophils (%) (Auto) 5.1 % (0.0-3.0) H Basophils (%) (Auto) 1.1 % (0.0-2.0) Sodium Level 144 MMOL/L (136-145) Potassium Level 4.0 MMOL/L (3.5-5.1) Chloride Level 105 MMOL/L (98-107) Carbon Dioxide Level 37 MMOL/L (21-32) H Anion Gap 2 mmol/L (5-15) L Blood Urea Nitrogen 24 mg/dL (7-18) H Creatinine 1.1 MG/DL (0.55-1.30) Estimat Glomerular Filtration Rate > 60 mL/min (>60) Glucose Level 186 MG/DL (74-106) H Uric Acid 7.3 MG/DL (2.6-7.2) H Calcium Level 8.6 MG/DL (8.5-10.1) Phosphorus Level 4.2 MG/DL (2.5-4.9) Magnesium Level 1.3 MG/DL (1.8-2.4) L Total Bilirubin 0.3 MG/DL (0.2-1.0) Aspartate Amino Transf (AST/SGOT) 48 U/L (15-37) H Alanine Aminotransferase (ALT/SGPT) 51 U/L (12-78) Alkaline Phosphatase 132 U/L (46-116) H Total Protein 7.0 G/DL (6.4-8.2) Albumin 2.5 G/DL (3.4-5.0) L Globulin 4.5 g/dL Albumin/Globulin Ratio 0.6 (1.0-2.7) L Objective HEAD AND NECK: No JVD. S/P Tracheostomy LUNGS: Coarse rhonchi. CARDIOVASCULAR: Bradycardic S1 and S2 . ABDOMEN: Morbidly obese. EXTREMITIES: 1+ pitting edema. Melvin Bejarano MD December 18, 2017 14:35
--- NOTE | 2017-12-18 15:28 | Diagnostic Imaging Report ---
Indication: Dysphasia Procedure and findings: Real-time fluoroscopic imaging performed in a lateral projection in conjunction with the speech pathologist evaluation. Variable consistencies of barium given per mouth. Findings: Significant abnormalities of both oral and pharyngeal phases of swallowing are demonstrated. Total fluoroscopic time 126 seconds. Laryngeal penetration noted with thin barium. No definite aspiration identified. Abnormal video swallow. Please refer to speech pathology evaluation for more information.
[2017-12-18 16:00] VITALS: BP 127/66
--- NOTE | 2017-12-18 16:41 | Infectious Diseases Prog Note ---
Assessment/Plan Assessment/Plan ASSESSMENT AND PLAN: 1. ? new aspiration pna/hcap, respiratory worse per patient, hx sepsis, leukocytosis, fevers, hx mrsa pna/uri, hx possible diphtheroids bacteremia, hx fungal uti, hx arf, trach, no vent currently, hx resp. failure - restart abx - zosyn and zyvox since more sob/congested - check sputum culture - f/u labs and chest x-ray - surveillance cultures negative - off vent currently - s/p tracheostomy - arf better - orders entered 2. Respiratory failure, on vent, no pressors - treatment per primary and pulmonary 3. Vargas. 4. The patient has history of hypertension. 5. Diabetes. 6. Hyperlipidemia. 7. Blood sugar and blood pressure treatment per primary. 8. History of asthma. 9. History of myocardial infarction and coronary artery disease. 10. History of heart failure/congestive heart failure. 11. History of gout. 12. History of sepsis and pneumonia. 13. History of muscle weakness. 14. Gastroesophageal reflux disease. 15. Past orders were noted. 16. Allergies are negative. 17. Family History is noncontributory. 18. Social history is negative. 19. MAR was noted. 20. Case discussed with RN. 21. Continue treatment per primary and consultants. 22. Case discussed with Dr. Matthews. 23. Case discussed with RN in the ICU. 24. Orders were noted and entered. 25. Notes and records were noted. 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 Subjective Constitutional: Reports: fatigue; Denies: fever, other HEENT: Reports: congestion, other - more congested, more secretions, d/w RN, yellow/green secretions Respiratory: Reports: shortness of breath Gastrointestinal/Abdominal: Denies: nausea, vomiting, diarrhea Genitourinary: Reports: other - + vargas Neurologic: Denies: headache Psychiatric: Denies: depression Skin: Denies: rash Hematologic: Denies: bleeding Musculoskeletal: Denies: pain Allergies: Coded Allergies: ASPARTAME (Verified Allergy, Unknown, 11/30/17) Headache Objective Vital Signs Last 24 Hour Vital Signs Date Time Temp Pulse Resp B/P (MAP) Pulse Ox O2 Delivery O2 Flow Rate FiO2 12/18/17 13:39 171/81 12/18/17 13:28 Trach Collar 6.0 28 12/18/17 13:28 98 Trach Collar 6.0 28 12/18/17 12:00 65 12/18/17 12:00 97.7 44 16 171/81 100 Trach Collar 30 97.7 12/18/17 12:00 8.0 30 12/18/17 08:00 97.8 63 14 145/71 100 Trach Collar 30 97.8 12/18/17 08:00 8.0 30 12/18/17 08:00 69 12/18/17 07:42 Trach Collar 6.0 28 12/18/17 07:42 62 20 Trach Collar 6.0 28 12/18/17 07:42 98 Trach Collar 6.0 28 12/18/17 06:00 110/72 12/18/17 04:00 8.0 30 12/18/17 04:00 69 12/18/17 04:00 98.6 70 24 110/72 97 Trach Collar 30 98.6 12/18/17 00:50 99 T-piece 6.0 28 12/18/17 00:50 T-piece 6.0 28 12/18/17 00:00 8.0 30 12/18/17 00:00 69 12/18/17 00:00 98.5 61 23 146/65 94 98.5 12/17/17 21:06 159/82 12/17/17 20:30 Trach Collar 6.0 28 12/17/17 20:30 98 Trach Collar 8.0 30 12/17/17 20:30 58 20 Trach Collar 8.0 30 12/17/17 20:00 8.0 30 12/17/17 20:00 98.4 72 23 159/82 97 Trach Collar 30 98.4 12/17/17 20:00 67 12/17/17 16:49 177/76 Height (Feet): 5 Height (Inches): 8.00 Weight (Pounds): 416 General Appearance: no acute distress HEENT: normocephalic, atraumatic, anicteric, mucous membranes moist Respiratory/Chest: lungs clear, normal breath sounds, no respiratory distress, no accessory muscle use Cardiovascular: normal rate, regular rhythm, no gallop/murmur, no JVD Abdomen: normal bowel sounds, soft, non tender, no organomegaly, non distended Genitourinary: other - + vargas - urine seems clear Extremities: no cyanosis Skin: no rash 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 The heart is enlarged. Lungs and pleural spaces are clear. Impression: Satisfactory endotracheal intubation Other findings as noted Chest x-ray - 12/06 - A single view chest radiograph was obtained. Findings: Endotracheal tube and nasogastric tubes are in good position unchanged. Lung volumes remain low. Lungs are essentially clear. Heart is enlarged. Bones are unremarkable. IMPRESSION: No acute findings Chest x-ray - 12/08 - IMPRESSION: Right jugular Dillan catheter in good position. No pneumothorax. Mild interstitial edema suspected. 12/10 - chest x-ray - negative (noted) 12/14 - chest x-ray - lungs clear (report noted) Microbiology Date/Time Source Procedure Growth Status 12/08/17 13:10 Blood Blood Culture - Final NO GROWTH AFTER 5 DAYS Complete 12/10/17 22:00 Sputum Gram Stain - Final Complete 12/10/17 22:00 Sputum Sputum Culture - Final NO GROWTH AFTER 48 HOURS Complete 12/06/17 12:40 Urine,Clean Catch Urine Culture - Final Tamia Tropicalis Tamia Albicans Complete 12/04/17 08:30 Rectum VRE Culture - Final Enterococcus Faecium - Vre Complete previous sputum culture with mrsa Laboratory Tests Test 12/18/17 10:10 White Blood Count 7.7 K/UL (4.8-10.8) Red Blood Count 3.62 M/UL (4.20-5.40) L Hemoglobin 10.3 G/DL (12.0-16.0) L Hematocrit 34.3 % (37.0-47.0) L Mean Corpuscular Volume 95 FL (80-99) Mean Corpuscular Hemoglobin 28.5 PG (27.0-31.0) Mean Corpuscular Hemoglobin Concent 30.1 G/DL (32.0-36.0) L Red Cell Distribution Width 15.6 % (11.6-14.8) H Platelet Count 289 K/UL (150-450) Mean Platelet Volume 7.7 FL (6.5-10.1) Neutrophils (%) (Auto) 38.7 % (45.0-75.0) L Lymphocytes (%) (Auto) 42.6 % (20.0-45.0) Monocytes (%) (Auto) 12.5 % (1.0-10.0) H Eosinophils (%) (Auto) 5.1 % (0.0-3.0) H Basophils (%) (Auto) 1.1 % (0.0-2.0) Sodium Level 144 MMOL/L (136-145) Potassium Level 4.0 MMOL/L (3.5-5.1) Chloride Level 105 MMOL/L (98-107) Carbon Dioxide Level 37 MMOL/L (21-32) H Anion Gap 2 mmol/L (5-15) L Blood Urea Nitrogen 24 mg/dL (7-18) H Creatinine 1.1 MG/DL (0.55-1.30) Estimat Glomerular Filtration Rate > 60 mL/min (>60) Glucose Level 186 MG/DL (74-106) H Uric Acid 7.3 MG/DL (2.6-7.2) H Calcium Level 8.6 MG/DL (8.5-10.1) Phosphorus Level 4.2 MG/DL (2.5-4.9) Magnesium Level 1.3 MG/DL (1.8-2.4) L Total Bilirubin 0.3 MG/DL (0.2-1.0) Aspartate Amino Transf (AST/SGOT) 48 U/L (15-37) H Alanine Aminotransferase (ALT/SGPT) 51 U/L (12-78) Alkaline Phosphatase 132 U/L (46-116) H Total Protein 7.0 G/DL (6.4-8.2) Albumin 2.5 G/DL (3.4-5.0) L Globulin 4.5 g/dL Albumin/Globulin Ratio 0.6 (1.0-2.7) L Current Medications Medications (Trade) Dose Ordered Sig/Felipe Route PRN Reason Start Time Stop Time Status Last Admin Dose Admin Acetaminophen (Tylenol) 650 mg Q4H PRN NG Mild Pain 12/17/17 17:27 01/10/18 17:26 Acetaminophen (Tylenol) 650 mg Q4H PRN ORAL Fever (temp>100.5F) 12/17/17 17:27 01/03/18 17:26 Clotrimazole (Lotrimin) 1 applic THREE TIMES A DAY TOPIC 12/17/17 18:00 01/08/18 08:59 12/18/17 13:22 Dextrose (Dextrose 50%) 25 ml STAT PRN IV Hypoglycemia BS 60-69mg/dl 12/18/17 17:28 01/10/18 17:27 Dextrose (Dextrose 50%) 50 ml STAT PRN IV Hypoglycemia BS less than 60mg 12/18/17 17:28 01/10/18 17:27 Diphenhydramine HCl (Benadryl) 12.5 mg Q6H PRN IVP Itching 12/17/17 17:28 01/07/18 17:27 Famotidine (Pepcid) 20 mg BID ORAL 12/17/17 18:00 01/16/18 17:59 12/18/17 09:57 Heparin Sodium (Porcine) (Heparin 5000 units/ml) 5,000 units EVERY 12 HOURS SUBQ 12/17/17 21:00 01/03/18 20:59 12/18/17 09:59 Hydralazine HCl (Apresoline) 10 mg Q4H PRN IV sbp> 160 mmHg 12/17/17 17:29 01/08/18 17:28 Hydralazine HCl (Apresoline) 50 mg EVERY 8 HOURS NG 12/17/17 22:00 01/08/18 15:44 12/18/17 13:39 Insulin Aspart (NovoLOG) AC+HS SUBQ 12/17/17 21:00 01/04/18 12:29 12/18/17 12:55 Magnesium Sulfate 100 ml @ 100 mls/hr Q1H IVPB 12/18/17 14:00 12/18/17 17:59 12/18/17 15:47 Nitroglycerin (Ntg) 0.4 mg Q5M PRN SL Prn Chest Pain 12/17/17 17:29 01/03/18 17:28 Ondansetron HCl (Zofran) 4 mg Q6H PRN IVP Nausea & Vomiting 12/17/17 17:30 01/03/18 17:29 JUNI ABDUL December 18, 2017 16:41
[2017-12-18 20:00] VITALS: BP 151/66
--- NOTE | 2017-12-18 23:40 | General Progress Note ---
Assessment/Plan Assessment/Plan #. Anemia due to underlying chronic disease. --> Continue to closely monitor. Anemia workup has been reviewed. --> Blood transfusion not required unless symptomatic or hgb <7 --> Hgb remains stable. Does not need transfusion. #. Coagulopathy, potentially secondary to liver problem, liver disease. --> Currently off of anticoagulation, currently inr has improved --> Administer Vit K in case patient bleeds, or inr increases #. Leukocytosis, potentially secondary to infection. --> Resolved at this time. --> S/P antibiotic treatment. #. Transaminitis as well as elevated --> Continue to closely monitor for improvement. #. Acute tubular necrosis with elevated creatinine. Continue to closely monitor. #. Obesity hypoventilation syndrome. --> Morbid obesity. #. Respiratory failure, status post intubation. --> s/p tracheostomy --> Pt now weaned off vent. On Trach collar #. Acute kidney injury. The patient's creatinine within normal limits on admission, potentially secondary to shock. #. Bradycardia. --> Improved. Subjective Date patient seen: December 18, 2017 Constitutional: Denies: no symptoms, chills, diaphoresis, fever, malaise, weakness, other HEENT: Denies: no symptoms, eye pain, blurred vision, tearing, double vision, ear pain, ear discharge, nose pain, nose congestion, throat pain, throat swelling, mouth pain, mouth swelling, other Cardiovascular: Denies: no symptoms, chest pain, edema, irregular heart rate, lightheadedness, palpitations, syncope, other Respiratory: Denies: no symptoms, cough, orthopnea, shortness of breath, SOB with excertion, SOB at rest, sputum, stridor, wheezing, other Gastrointestinal/Abdominal: Denies: no symptoms, abdomen distended, abdominal pain, black stools, tarry stools, blood in stool, constipated, diarrhea, difficulty swallowing, nausea, poor appetite, poor fluid intake, rectal bleeding , vomiting, other Genitourinary: Denies: no symptoms, burning, discharge, frequency, flank pain, hematuria, incontinence, pain, urgency, other Neurologic/Psychiatric: Denies: no symptoms, anxiety, depressed, emotional problems, headache, numbness, paresthesia, pre-existing deficit, seizure, tingling, tremors, weakness, other Hematologic/Lymphatic: Reports: anemia Allergies: Coded Allergies: ASPARTAME (Verified Allergy, Unknown, 11/30/17) Headache Subjective No fever. ++trach collar. H/H stable. Objective Last 24 Hour Vital Signs Date Time Temp Pulse Resp B/P (MAP) Pulse Ox O2 Delivery O2 Flow Rate FiO2 12/18/17 22:45 151/66 12/18/17 22:00 151/66 12/18/17 20:00 97.7 66 18 151/66 99 97.7 12/18/17 18:58 99 Trach Collar 6.0 28 12/18/17 18:58 Trach Collar 6.0 28 12/18/17 18:58 59 20 Trach Collar 6.0 28 12/18/17 16:00 66 12/18/17 16:00 8.0 30 12/18/17 16:00 97.5 61 16 127/66 99 Trach Collar 30 97.5 12/18/17 13:39 171/81 12/18/17 13:28 Trach Collar 6.0 28 12/18/17 13:28 98 Trach Collar 6.0 28 12/18/17 12:00 65 12/18/17 12:00 97.7 44 16 171/81 100 Trach Collar 30 97.7 12/18/17 12:00 8.0 30 12/18/17 08:00 97.8 63 14 145/71 100 Trach Collar 30 97.8 12/18/17 08:00 8.0 30 12/18/17 08:00 69 12/18/17 07:42 Trach Collar 6.0 28 12/18/17 07:42 62 20 Trach Collar 6.0 28 12/18/17 07:42 98 Trach Collar 6.0 28 12/18/17 06:00 110/72 12/18/17 04:00 8.0 30 12/18/17 04:00 69 12/18/17 04:00 98.6 70 24 110/72 97 Trach Collar 30 98.6 12/18/17 00:50 99 T-piece 6.0 28 12/18/17 00:50 T-piece 6.0 28 12/18/17 00:00 8.0 30 12/18/17 00:00 69 12/18/17 00:00 98.5 61 23 146/65 94 98.5 Intake and Output 12/17/17 12/18/17 19:00 07:00 Intake Total 1050 ml Output Total 3425 ml 3000 ml Balance -2375 ml -3000 ml Intake Oral 850 ml IV Total 200 ml Output Urine Total 3425 ml 3000 ml # Bowel Movements 1 Laboratory Tests 12/18/17 10:10: White Blood Count 7.7, Red Blood Count 3.62L, Hemoglobin 10.3L, Hematocrit 34.3L , Mean Corpuscular Volume 95, Mean Corpuscular Hemoglobin 28.5, Mean Corpuscular Hemoglobin Concent 30.1L, Red Cell Distribution Width 15.6H, Platelet Count 289, Mean Platelet Volume 7.7, Neutrophils (%) (Auto) 38.7L, Lymphocytes (%) (Auto) 42.6, Monocytes (%) (Auto) 12.5H, Eosinophils (%) (Auto) 5.1H, Basophils (%) (Auto) 1.1, Sodium Level 144, Potassium Level 4.0, Chloride Level 105, Carbon Dioxide Level 37H, Anion Gap 2L, Blood Urea Nitrogen 24H, Creatinine 1.1, Estimat Glomerular Filtration Rate > 60, Glucose Level 186H, Uric Acid 7.3H, Calcium Level 8.6, Phosphorus Level 4.2, Magnesium Level 1.3L, Total Bilirubin 0.3, Aspartate Amino Transf (AST/SGOT) 48H, Alanine Aminotransferase (ALT/SGPT) 51, Alkaline Phosphatase 132H, Total Protein 7.0, Albumin 2.5L, Globulin 4.5, Albumin/Globulin Ratio 0.6L Height (Feet): 5 Height (Inches): 8.00 Weight (Pounds): 416 General Appearance: no apparent distress Cardiovascular: normal rate, regular rhythm Respiratory/Chest: decreased breath sounds Abdomen: non tender, soft Edema: trace edema Jem Palmer MD December 18, 2017 23:40
[2017-12-19] VITALS: BP 138/57
[2017-12-19 04:00] VITALS: BP 146/68
[2017-12-19] MEDS: HydrALAZINE 50mg tab NG SCH (06:00)
[2017-12-19] MEDS: NovoLOG Insulin Flexpen SUBQ SCH ×4 (06:30→21:01)
[2017-12-19 08:00] VITALS: BP 125/84
--- NOTE | 2017-12-19 08:21 | Consultation ---
Consult Note Assessment/Plan A/ 1) Onychogryphosis with periungual inflammation 2) Abnormal gait and mobility 3) DM 4) Obesity P/ Toenails were debrided x 10 without complication Patient will be followed when d/c'ed to SNF Thank you Satya Castillo DPM December 19, 2017 08:21
--- NOTE | 2017-12-19 08:56 | Diagnostic Imaging Report ---
PORTABLE AP CXR: HISTORY: 57-year-old female with SOB. COMPARISON: 12/14/2017. FINDINGS: Image is limited by portable technique and patient body habitus. Allowing for this, tracheostomy tube is in the grossly stable and satisfactory position. Right internal jugular central venous catheter has been removed. There is no confluent lung consolidation or obvious acute pulmonary edema; lung volumes are mildly low, as before. Borderline/mild cardiomegaly appears grossly stable. The mediastinal contour is stable. No obvious pneumothorax or effusion. IMPRESSION: No obvious acute abnormality or significant interval change.
[2017-12-19] MEDS: Heparin 5000 units/ml inj SUBQ SCH ×2 (09:07→21:01)
--- NOTE | 2017-12-19 10:15 | Nephrology Progress Note ---
Assessment/Plan Problem List: (1) Acute renal failure (ARF) (2) Acute respiratory failure (3) Acute on chronic diastolic (congestive) heart failure (4) Elevated liver enzymes Assessment - Acute & chronic respiratory failure, - Bacteremia - ATN (acute tubular necrosis), ARF resolved - Acute encephalopathy - Aspiration pnemonia vs HCAP - Likely obesity hypoventilation syndrome - Elevated liver enzymes Plan no labs today yet Acute renal failure, resolved Mag supplement as needed HD last 12/11 low BP resolved resp failure , intubated, trached, resp management obese monitor renal parameters, Cr lowerin without HD Up hydralazine dose DC Dialysis cath- done Objective Objective Last 24 Hour Vital Signs Date Time Temp Pulse Resp B/P (MAP) Pulse Ox O2 Delivery O2 Flow Rate FiO2 12/19/17 08:00 8.0 30 12/19/17 08:00 53 12/19/17 08:00 97.6 73 21 125/84 99 Room Air 97.6 12/19/17 07:37 Trach Collar 6.0 28 12/19/17 07:36 98 Trach Collar 6.0 28 12/19/17 07:34 76 18 Trach Collar 6.0 28 12/19/17 04:00 97.4 68 20 146/68 100 Room Air 97.4 12/19/17 04:00 66 12/19/17 04:00 8.0 30 12/19/17 00:59 98 Trach Collar 6.0 28 12/19/17 00:59 Trach Collar 6.0 28 12/19/17 00:00 98.0 72 18 138/57 91 98.0 12/19/17 00:00 72 12/19/17 00:00 8.0 30 12/18/17 22:45 151/66 12/18/17 22:00 151/66 12/18/17 20:00 97.7 66 18 151/66 99 97.7 12/18/17 20:00 66 12/18/17 18:58 99 Trach Collar 6.0 28 12/18/17 18:58 Trach Collar 6.0 28 12/18/17 18:58 59 20 Trach Collar 6.0 28 12/18/17 16:00 66 12/18/17 16:00 8.0 30 12/18/17 16:00 97.5 61 16 127/66 99 Trach Collar 30 97.5 12/18/17 13:39 171/81 12/18/17 13:28 Trach Collar 6.0 28 12/18/17 13:28 98 Trach Collar 6.0 28 12/18/17 12:00 65 12/18/17 12:00 97.7 44 16 171/81 100 Trach Collar 30 97.7 12/18/17 12:00 8.0 30 Intake and Output 12/18/17 12/19/17 19:00 07:00 Intake Total 1120 ml Output Total 1500 ml 2100 ml Balance -380 ml -2100 ml Intake Oral 1020 ml IV Total 100 ml Output Urine Total 1500 ml 2100 ml # Bowel Movements 1 Height (Feet): 5 Height (Inches): 8.00 Weight (Pounds): 317 General Appearance: no apparent distress Cardiovascular: normal rate Respiratory/Chest: decreased breath sounds Abdomen: soft Objective no change AGUSTIN CONTRERAS December 19, 2017 10:15
--- NOTE | 2017-12-19 11:38 | General Progress Note ---
Assessment/Plan Problem List: (1) Acute toxic metabolic encephalopathy (2) Acute respiratory failure with hypoxia and hypercapnia ICD Codes: J96.01 - Acute respiratory failure with hypoxia; J96.02 - Acute respiratory failure with hypercapnia SNOMED: 21331422, 75969076, 812018675 (3) Likely obesity hypoventilation syndrome (4) Severe sepsis ICD Codes: A41.9 - Sepsis, unspecified organism; R65.20 - Severe sepsis without septic shock SNOMED: 40270061 (5) KASHIF (acute kidney injury) ICD Codes: N17.9 - Acute kidney failure, unspecified SNOMED: 31920063 (6) ATN (acute tubular necrosis) ICD Codes: N17.0 - Acute kidney failure with tubular necrosis SNOMED: 49102915 (7) Elevated liver enzymes ICD Codes: R74.8 - Abnormal levels of other serum enzymes SNOMED: 762634616 (8) Aspiration pnemonia vs HCAP (9) UTI (urinary tract infection) ICD Codes: N39.0 - Urinary tract infection, site not specified SNOMED: 56196068 Qualifiers: Qualified Codes: N39.0 - Urinary tract infection, site not specified (10) Morbid obesity ICD Codes: E66.01 - Morbid (severe) obesity due to excess calories SNOMED: 332817063, 82742567611336 (11) Chronic diastolic (congestive) heart failure ICD Codes: I50.32 - Chronic diastolic (congestive) heart failure SNOMED: 70796365, 423817335 (12) DM2 (diabetes mellitus, type 2) ICD Codes: E11.9 - Type 2 diabetes mellitus without complications SNOMED: 82779896 (13) Hypertension ICD Codes: I10 - Essential (primary) hypertension SNOMED: 43800109 (14) Fatty liver ICD Codes: K76.0 - Fatty (change of) liver, not elsewhere classified SNOMED: 540124588 (15) GERD (gastroesophageal reflux disease) ICD Codes: K21.9 - Gastro-esophageal reflux disease without esophagitis SNOMED: 254707143 (16) Asthma ICD Codes: J45.909 - Unspecified asthma, uncomplicated SNOMED: 074667183 (17) H/O supraventricular tachycardia ICD Codes: Z86.79 - Personal history of other diseases of the circulatory system SNOMED: 105854579976354 Status: stable Assessment/Plan Pulm/critical care consulted Cont on vent and wean as tolerated Pulm/critical care consulted This was pt's 3rd intubation in less than 6 months. D/w pulm re likely plan for tracheostomy. D/w pt and son. Surgery consulted s/p tracheostomy on 12/10/17 Pt now weaned off vent. Doing well on trach collar Currently not requiring pressors. Goal MAP 65 and above Cardiology consulted given bradycardia. Likely 2/2 midodrine Hold midodrine s/p steroids ID consulted s/p empiric linezolid, cefepime and flagyl per ID (abx d/c'd 12/13/17) ID restarted abx: zosyn and zyvox since more sob/congested (12/18-) Repeat blood cx show ngtd Nephrology consulted given KASHIF HD line placed and started on HD on 12/07/17. Last HD 12/11. HD catheter removed. 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 Likely on Thu or DVT Prophylaxis: SCD, HSQ Code Status: Full Hospital Classification Declaration: Based on this initial evaluation, and depending on the patient's clinical course, I anticipate that this patient will require hospitalization for 2-3 days for acute respiratory failure, sepsis and close respiratory/hemodynamic monitoring. Disposition: Once the patient is stable to leave the hospital, I anticipate the patient will likely be discharged to the following environment: subacute SNF vs LTACH Plan outlined above discussed with patient/family, pulm/critical care, ID regarding mgmt and dispo. D/w pulm re weaning vent. D/w ID re monitor off abx. D /w renal re monitor off HD. D/w pulm re weaned off vent, trach collar, CPAP qHS Time of note may not reflect time of encounter. Subjective Date patient seen: December 19, 2017 Time patient seen: 11:38 Allergies: Coded Allergies: ASPARTAME (Verified Allergy, Unknown, 11/30/17) Headache Subjective No acute o/n events s/p tracheostomy POD#9 VSS SCr normalized. Good UOP LFTs downtrending Pt doing well. Awake, alert. Passed swallow eval--tolerating PO. Speaking well. Denies f/c, n/v, d/c, chest pain. SOB, cough stable Objective Last 24 Hour Vital Signs Date Time Temp Pulse Resp B/P (MAP) Pulse Ox O2 Delivery O2 Flow Rate FiO2 12/19/17 08:00 8.0 30 12/19/17 08:00 53 12/19/17 08:00 97.6 73 21 125/84 99 Room Air 97.6 12/19/17 07:37 Trach Collar 6.0 28 12/19/17 07:36 98 Trach Collar 6.0 28 12/19/17 07:34 76 18 Trach Collar 6.0 28 12/19/17 04:00 97.4 68 20 146/68 100 Room Air 97.4 12/19/17 04:00 66 12/19/17 04:00 8.0 30 12/19/17 00:59 98 Trach Collar 6.0 28 12/19/17 00:59 Trach Collar 6.0 28 12/19/17 00:00 98.0 72 18 138/57 91 98.0 12/19/17 00:00 72 12/19/17 00:00 8.0 30 12/18/17 22:45 151/66 12/18/17 22:00 151/66 12/18/17 20:00 97.7 66 18 151/66 99 97.7 12/18/17 20:00 66 12/18/17 18:58 99 Trach Collar 6.0 28 12/18/17 18:58 Trach Collar 6.0 28 12/18/17 18:58 59 20 Trach Collar 6.0 28 12/18/17 16:00 66 12/18/17 16:00 8.0 30 12/18/17 16:00 97.5 61 16 127/66 99 Trach Collar 30 97.5 12/18/17 13:39 171/81 12/18/17 13:28 Trach Collar 6.0 28 12/18/17 13:28 98 Trach Collar 6.0 28 12/18/17 12:00 65 12/18/17 12:00 97.7 44 16 171/81 100 Trach Collar 30 97.7 12/18/17 12:00 8.0 30 Intake and Output 12/18/17 12/19/17 19:00 07:00 Intake Total 1120 ml Output Total 1500 ml 2100 ml Balance -380 ml -2100 ml Intake Oral 1020 ml IV Total 100 ml Output Urine Total 1500 ml 2100 ml # Bowel Movements 1 Height (Feet): 5 Height (Inches): 8.00 Weight (Pounds): 317 Objective General: awake, alert, NAD, morbidly obese Head: normocephalic, without obvious abnormality, atraumatic Eyes: conjunctivae/corneas clear. PERRL, EOM's intact Throat: lips, mucosa, and tongue normal. MMM Neck: supple, symmetrical, trachea midline, +tracheostomy c/d/i Lungs:+rhonchi b/l Heart: regular rate and rhythm, S1, S2 normal, no murmur, click, rub or gallop Abdomen: soft, non-tender, non-distended, bowel sounds normal Extremities: extremities normal, atraumatic, no cyanosis or edema Pulses: 2+ and symmetric Skin: skin color, texture, turgor normal; no rashes or lesions Neurologic: sedated Cassie Bolivar M.D. December 19, 2017 11:38
[2017-12-19 12:00] VITALS: BP 151/79
[2017-12-19 12:33] LABS: BASOPHILS % (AUTO) 1.3 % (0.0-2.0); EOSINOPHILS % (AUTO) 4.7 % (0.0-3.0); HEMATOCRIT 35.4 % (37.0-47.0); HEMOGLOBIN 10.5 G/DL (12.0-16.0); LYMPHOCYTES % (AUTO) 45.2 % (20.0-45.0); MEAN CORPUSCULAR VOLUME 96 FL (80-99); MONOCYTES % (AUTO) 11.5 % (1.0-10.0); NEUTROPHILS % (AUTO) 37.3 % (45.0-75.0); PLATELET COUNT 281 K/UL (150-450); RED CELL DISTRIBUTION WIDTH 15.3 % (11.6-14.8); WHITE BLOOD COUNT 7.1 K/UL (4.8-10.8)
[2017-12-19 12:44] LABS: ALANINE AMINOTRANSFERASE 52 U/L (12-78); ALBUMIN 2.5 G/DL (3.4-5.0); ALBUMIN/GLOBULIN RATIO 0.5 (1.0-2.7); ALKALINE PHOSPHATASE 126 U/L (46-116); ANION GAP 3 mmol/L (5-15); ASPARTATE AMINO TRANSFERASE 48 U/L (15-37); BILIRUBIN,TOTAL 0.4 MG/DL (0.2-1.0); BLOOD UREA NITROGEN 19 mg/dL (7-18); CALCIUM 8.5 MG/DL (8.5-10.1); CARBON DIOXIDE 36 MMOL/L (21-32); CHLORIDE 104 MMOL/L (98-107); PHOSPHORUS 4.4 MG/DL (2.5-4.9); POTASSIUM 3.9 MMOL/L (3.5-5.1); SODIUM 143 MMOL/L (136-145)
--- NOTE | 2017-12-19 14:19 | Cardiac Electrophysiology PN ---
Assessment/Plan Assessment/Plan 1. Sinus bradycardia. No further significant savannah. HR>50s. Asymptomatic. 2. Respiratory failure. S/P tracheostomy 3. Hypertension, on hydralazine 50 q 8hr. 4. Morbid obesity. 5. History of supraventricular tachycardia.No recurrence. Keep off AAs. 6. Elevated liver enzymes. 7. Renal failure. ROLLY RN Subjective Subjective Alert in NAD.Lowest HR was 52. Asymptomatic Objective Last 24 Hour Vital Signs Date Time Temp Pulse Resp B/P (MAP) Pulse Ox O2 Delivery O2 Flow Rate FiO2 12/19/17 13:12 Trach Collar 6.0 28 12/19/17 13:12 98 Trach Collar 6.0 28 12/19/17 12:00 8.0 30 12/19/17 12:00 97.5 63 20 151/79 97 Room Air 97.5 12/19/17 08:00 8.0 30 12/19/17 08:00 53 12/19/17 08:00 97.6 73 21 125/84 99 Room Air 97.6 12/19/17 07:37 Trach Collar 6.0 28 12/19/17 07:36 98 Trach Collar 6.0 28 12/19/17 07:34 76 18 Trach Collar 6.0 28 12/19/17 04:00 97.4 68 20 146/68 100 Room Air 97.4 12/19/17 04:00 66 12/19/17 04:00 8.0 30 12/19/17 00:59 98 Trach Collar 6.0 28 12/19/17 00:59 Trach Collar 6.0 28 12/19/17 00:00 98.0 72 18 138/57 91 98.0 12/19/17 00:00 72 12/19/17 00:00 8.0 30 12/18/17 22:45 151/66 12/18/17 22:00 151/66 12/18/17 20:00 97.7 66 18 151/66 99 97.7 12/18/17 20:00 66 12/18/17 18:58 99 Trach Collar 6.0 28 12/18/17 18:58 Trach Collar 6.0 28 12/18/17 18:58 59 20 Trach Collar 6.0 28 12/18/17 16:00 66 12/18/17 16:00 8.0 30 12/18/17 16:00 97.5 61 16 127/66 99 Trach Collar 30 97.5 Intake and Output 12/18/17 12/19/17 19:00 07:00 Intake Total 1120 ml Output Total 1500 ml 2100 ml Balance -380 ml -2100 ml Intake Oral 1020 ml IV Total 100 ml Output Urine Total 1500 ml 2100 ml # Bowel Movements 1 Laboratory Tests Test 12/19/17 10:30 White Blood Count 7.1 K/UL (4.8-10.8) Red Blood Count 3.70 M/UL (4.20-5.40) L Hemoglobin 10.5 G/DL (12.0-16.0) L Hematocrit 35.4 % (37.0-47.0) L Mean Corpuscular Volume 96 FL (80-99) Mean Corpuscular Hemoglobin 28.5 PG (27.0-31.0) Mean Corpuscular Hemoglobin Concent 29.7 G/DL (32.0-36.0) L Red Cell Distribution Width 15.3 % (11.6-14.8) H Platelet Count 281 K/UL (150-450) Mean Platelet Volume 7.7 FL (6.5-10.1) Neutrophils (%) (Auto) 37.3 % (45.0-75.0) L Lymphocytes (%) (Auto) 45.2 % (20.0-45.0) H Monocytes (%) (Auto) 11.5 % (1.0-10.0) H Eosinophils (%) (Auto) 4.7 % (0.0-3.0) H Basophils (%) (Auto) 1.3 % (0.0-2.0) Sodium Level 143 MMOL/L (136-145) Potassium Level 3.9 MMOL/L (3.5-5.1) Chloride Level 104 MMOL/L (98-107) Carbon Dioxide Level 36 MMOL/L (21-32) H Anion Gap 3 mmol/L (5-15) L Blood Urea Nitrogen 19 mg/dL (7-18) H Creatinine 1.0 MG/DL (0.55-1.30) Estimat Glomerular Filtration Rate > 60 mL/min (>60) Glucose Level 166 MG/DL (74-106) H Calcium Level 8.5 MG/DL (8.5-10.1) Phosphorus Level 4.4 MG/DL (2.5-4.9) Total Bilirubin 0.4 MG/DL (0.2-1.0) Aspartate Amino Transf (AST/SGOT) 48 U/L (15-37) H Alanine Aminotransferase (ALT/SGPT) 52 U/L (12-78) Alkaline Phosphatase 126 U/L (46-116) H Total Protein 7.1 G/DL (6.4-8.2) Albumin 2.5 G/DL (3.4-5.0) L Globulin 4.6 g/dL Albumin/Globulin Ratio 0.5 (1.0-2.7) L Microbiology Date/Time Source Procedure Growth Status 12/18/17 18:48 Sputum Gram Stain - Final Resulted 12/18/17 18:48 Sputum Sputum Culture Pending Resulted Objective HEAD AND NECK: No JVD. S/P Tracheostomy LUNGS: Coarse rhonchi. CARDIOVASCULAR: Bradycardic S1 and S2 . ABDOMEN: Morbidly obese. EXTREMITIES: 1+ pitting edema. Melvin Bejarano MD December 19, 2017 14:19
[2017-12-19] MEDS: HydrALAZINE 50mg tab ORAL SCH ×2 (15:36→21:44)
[2017-12-19 16:00] VITALS: BP 166/73
[2017-12-19 20:00] VITALS: BP 147/83
--- NOTE | 2017-12-19 20:00 | Consultation ---
DATE OF CONSULTATION: 12/19/2017 CONSULTING PHYSICIAN: Satya Castillo D.P.M. REQUESTING PHYSICIAN: Cassie Bolivar M.D. REASON FOR CONSULTATION: Onychogryphosis, periungual inflammation, presence of diabetes mellitus. HISTORY OF PRESENT ILLNESS: The patient is a 57-year-old female who was admitted to [facility] on 12/04/2017 for altered mental status. Podiatry was requested for toenail debridement due to the length and presence of diabetes mellitus. PAST MEDICAL HISTORY: Significant for morbid obesity, hypertension, asthma, type 2 diabetes, and gastroesophageal reflux disease. ALLERGIES: She is allergic to Aspartame. MEDICATIONS: Per MAR. FAMILY HISTORY: Noncontributory. SOCIAL HISTORY: The patient resides in a residential facility. REVIEW OF SYSTEMS: Deferred. PHYSICAL EXAMINATION: VITAL SIGNS: Temperature is 97.4, pulse is 68, respirations 20, blood pressure is 146/68, saturating 100% on room air. EXTREMITIES: Lower extremity physical exam, vascular, palpable pedal pulses noted bilaterally. Feet are equally warm. There is no edema or cyanosis noted. DERMATOLOGICAL: Elongated kyphotic toenails are noted x10 with periungual inflammation. No ulcers or lesions are noted. Digital interspaces are clear bilaterally. MUSCULOSKELETAL: There is no gross deformity is noted. NEUROLOGICAL: Protective thresholds intact. LABORATORY DATA: White blood cell count is 7.7, hemoglobin and hematocrit is 10.3 and 34.3, and platelet count is 289. INR is 1.1. Glucose is 186. Hemoglobin A1c is 6.5. Albumin is 2.5. ASSESSMENT: 1. Onychogryphosis with periungual inflammation. 2. Abnormal gait and mobility. 3. Type 2 diabetes mellitus. 4. Obesity. PLAN: 1. Toenails were debrided x10 without complication or bleeding. The patient tolerated procedure well and was appreciative. 2. The patient will be followed when discharged to SNF. Thank you for the courtesy of this consultation, Dr. Matthews. Satya Castillo D.P.M. DR: NESSA JOB#: [id number] CC:
--- NOTE | 2017-12-19 22:04 | Pulmonology Progress Note ---
Assessment/Plan Problems: (1) Acute respiratory failure with hypoxia and hypercapnia (2) Acute renal failure (ARF) (3) Morbid obesity (4) DM2 (diabetes mellitus, type 2) (5) HTN (hypertension) Assessment/Plan Respiratory: monitor respiratory rate, adjust FIO2, CXR Cardiac: continue to monitor HR/BP Renal: F/U I&O, keep IV fluid Infectious Disease: check cultures Gastrointestinal: continue feedings/current rate, hold feedings Endocrine: monitor blood sugar Hematologic: monitor H/H, transfuse if hgb<8.5 Neurologic: PRN Ativan, keep patient comfortable Affect: PRN ativan Prophylaxis: Protonix Notes Reviewed: 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 with: nurses, consultants, mental health case manager Subjective ROS Limited/Unobtainable: No Allergies: Coded Allergies: ASPARTAME (Verified Allergy, Unknown, 11/30/17) Headache Objective Last 24 Hour Vital Signs Date Time Temp Pulse Resp B/P (MAP) Pulse Ox O2 Delivery O2 Flow Rate FiO2 12/19/17 21:44 147/83 12/19/17 20:19 88 18 Trach Collar 6.0 28 12/19/17 20:19 Trach Collar 6.0 28 12/19/17 20:19 98 Trach Collar 6.0 28 12/19/17 20:00 98.3 61 20 147/83 96 Trach Collar 30 98.3 65 12/19/17 20:00 8.0 30 12/19/17 16:00 8.0 30 12/19/17 16:00 54 12/19/17 16:00 98.1 61 19 166/73 99 Room Air 98.1 12/19/17 15:36 151/79 12/19/17 13:12 Trach Collar 6.0 28 12/19/17 13:12 98 Trach Collar 6.0 28 12/19/17 12:00 8.0 30 12/19/17 12:00 97.5 63 20 151/79 97 Room Air 97.5 12/19/17 12:00 58 12/19/17 08:00 8.0 30 12/19/17 08:00 53 12/19/17 08:00 97.6 73 21 125/84 99 Room Air 97.6 12/19/17 07:37 Trach Collar 6.0 28 12/19/17 07:36 98 Trach Collar 6.0 28 12/19/17 07:34 76 18 Trach Collar 6.0 28 12/19/17 04:00 97.4 68 20 146/68 100 Room Air 97.4 12/19/17 04:00 66 12/19/17 04:00 8.0 30 12/19/17 00:59 98 Trach Collar 6.0 28 12/19/17 00:59 Trach Collar 6.0 28 12/19/17 00:00 98.0 72 18 138/57 91 98.0 12/19/17 00:00 72 12/19/17 00:00 8.0 30 12/18/17 22:45 151/66 Intake and Output 12/18/17 12/19/17 19:00 07:00 Intake Total 1120 ml Output Total 1500 ml 2100 ml Balance -380 ml -2100 ml Intake Oral 1020 ml IV Total 100 ml Output Urine Total 1500 ml 2100 ml # Bowel Movements 1 General Appearance: WD/WN HEENT: normocephalic, atraumatic, status post trach Respiratory/Chest: chest wall non-tender, crackles/rales Cardiovascular: normal peripheral pulses, regular rhythm Abdomen: normal bowel sounds, soft, non tender Genitourinary: normal external genitalia Extremities: no cyanosis Skin: no ulcers Neurologic/Psychiatric: no motor/sensory deficits Microbiology Date/Time Source Procedure Growth Status 12/18/17 18:48 Sputum Gram Stain - Final Resulted 12/18/17 18:48 Sputum Sputum Culture Pending Resulted Laboratory Tests 12/19/17 10:30: White Blood Count 7.1, Red Blood Count 3.70L, Hemoglobin 10.5L, Hematocrit 35.4L , Mean Corpuscular Volume 96, Mean Corpuscular Hemoglobin 28.5, Mean Corpuscular Hemoglobin Concent 29.7L, Red Cell Distribution Width 15.3H, Platelet Count 281, Mean Platelet Volume 7.7, Neutrophils (%) (Auto) 37.3L, Lymphocytes (%) (Auto) 45.2H, Monocytes (%) (Auto) 11.5H, Eosinophils (%) (Auto ) 4.7H, Basophils (%) (Auto) 1.3, Sodium Level 143, Potassium Level 3.9, Chloride Level 104, Carbon Dioxide Level 36H, Anion Gap 3L, Blood Urea Nitrogen 19H, Creatinine 1.0, Estimat Glomerular Filtration Rate > 60, Glucose Level 166H , Calcium Level 8.5, Phosphorus Level 4.4, Total Bilirubin 0.4, Aspartate Amino Transf (AST/SGOT) 48H, Alanine Aminotransferase (ALT/SGPT) 52, Alkaline Phosphatase 126H, Total Protein 7.1, Albumin 2.5L, Globulin 4.6, Albumin/ Globulin Ratio 0.5L Current Medications Medications (Trade) Dose Ordered Sig/Felipe Route PRN Reason Start Time Stop Time Status Last Admin Dose Admin Acetaminophen (Tylenol) 650 mg Q4H PRN NG Mild Pain 12/17/17 17:27 01/10/18 17:26 12/19/17 20:57 Acetaminophen (Tylenol) 650 mg Q4H PRN ORAL Fever (temp>100.5F) 12/17/17 17:27 01/03/18 17:26 Clotrimazole (Lotrimin) 1 applic THREE TIMES A DAY TOPIC 12/17/17 18:00 01/08/18 08:59 12/19/17 17:21 Dextrose (Dextrose 50%) 25 ml STAT PRN IV Hypoglycemia BS 60-69mg/dl 12/18/17 17:28 01/10/18 17:27 Dextrose (Dextrose 50%) 50 ml STAT PRN IV Hypoglycemia BS less than 60mg 12/18/17 17:28 01/10/18 17:27 Diphenhydramine HCl (Benadryl) 12.5 mg Q6H PRN IVP Itching 12/17/17 17:28 01/07/18 17:27 12/19/17 02:20 Famotidine (Pepcid) 20 mg BID ORAL 12/19/17 18:00 01/16/18 17:59 12/19/17 17:20 Heparin Sodium (Porcine) (Heparin 5000 units/ml) 5,000 units EVERY 12 HOURS SUBQ 12/19/17 21:00 01/03/18 20:59 12/19/17 21:01 Hydralazine HCl (Apresoline) 10 mg Q4H PRN IV sbp> 160 mmHg 12/17/17 17:29 01/08/18 17:28 12/18/17 22:45 Hydralazine HCl (Apresoline) 50 mg EVERY 8 HOURS ORAL 12/19/17 15:00 01/08/18 14:59 12/19/17 21:44 Insulin Aspart (NovoLOG) AC+HS SUBQ 12/17/17 21:00 01/04/18 12:29 12/19/17 21:01 Linezolid 300 ml @ 300 mls/hr Q12HR@1000,2200 IVPB 12/18/17 22:00 12/25/17 21:59 12/19/17 21:44 Nitroglycerin (Ntg) 0.4 mg Q5M PRN SL Prn Chest Pain 12/17/17 17:29 01/03/18 17:28 Ondansetron HCl (Zofran) 4 mg Q6H PRN IVP Nausea & Vomiting 12/17/17 17:30 01/03/18 17:29 Piperacillin Sod/ Tazobactam Sod 3.375 gm/Dextrose 100 ml @ 25 mls/hr Q8H IVPB 12/18/17 18:00 12/25/17 17:59 12/19/17 17:20 Yariel Malone MD December 19, 2017 22:04
[2017-12-20] VITALS: BP 135/52
[2017-12-20 04:00] VITALS: BP 147/74
--- NOTE | 2017-12-20 05:16 | General Progress Note ---
Assessment/Plan Assessment/Plan #. Anemia due to underlying chronic disease. --> Continue to closely monitor. Anemia workup has been reviewed. --> Blood transfusion not required unless symptomatic or hgb <7 --> Hgb remains stable. Does not need transfusion at this time --> Ferritin and tibc have been reordered, most recent was back in 08/2017 #. Coagulopathy, potentially secondary to liver problem, liver disease. --> Currently off of anticoagulation, currently inr has improved --> Administer Vit K in case patient bleeds, or inr increases #. Leukocytosis, potentially secondary to infection. --> Resolved at this time. --> S/P antibiotic treatment. #. Transaminitis as well as elevated --> Continue to closely monitor for improvement. #. Acute tubular necrosis with elevated creatinine. Continue to closely monitor. #. Obesity hypoventilation syndrome. --> Morbid obesity. #. Respiratory failure, status post intubation. --> s/p tracheostomy --> Pt now weaned off vent. On Trach collar #. Acute kidney injury. The patient's creatinine within normal limits on admission, potentially secondary to shock. #. Bradycardia. --> Improved. Subjective Date patient seen: December 19, 2017 Constitutional: Denies: no symptoms, chills, diaphoresis, fever, malaise, weakness, other HEENT: Denies: no symptoms, eye pain, blurred vision, tearing, double vision, ear pain, ear discharge, nose pain, nose congestion, throat pain, throat swelling, mouth pain, mouth swelling, other Cardiovascular: Denies: no symptoms, chest pain, edema, irregular heart rate, lightheadedness, palpitations, syncope, other Respiratory: Denies: no symptoms, cough, orthopnea, shortness of breath, SOB with excertion, SOB at rest, sputum, stridor, wheezing, other Gastrointestinal/Abdominal: Denies: no symptoms, abdomen distended, abdominal pain, black stools, tarry stools, blood in stool, constipated, diarrhea, difficulty swallowing, nausea, poor appetite, poor fluid intake, rectal bleeding , vomiting, other Genitourinary: Denies: no symptoms, burning, discharge, frequency, flank pain, hematuria, incontinence, pain, urgency, other Neurologic/Psychiatric: Denies: no symptoms, anxiety, depressed, emotional problems, headache, numbness, paresthesia, pre-existing deficit, seizure, tingling, tremors, weakness, other Endocrine: Denies: no symptoms, excessive sweating, flushing, intolerance to cold, intolerance to heat, increased hunger, increased thirst, increased urine, unexplained weight gain, unexplained weight loss, other Hematologic/Lymphatic: Denies: no symptoms, anemia, easy bleeding, easy bruising, other Allergies: Coded Allergies: ASPARTAME (Verified Allergy, Unknown, 11/30/17) Headache Subjective No fever. ++trach collar. H/H stable. Objective Last 24 Hour Vital Signs Date Time Temp Pulse Resp B/P (MAP) Pulse Ox O2 Delivery O2 Flow Rate FiO2 12/20/17 04:00 97.7 66 22 147/74 100 Trach Collar 28 97.7 12/20/17 04:00 8.0 28 12/20/17 04:00 60 12/20/17 01:09 Trach Collar 6.0 28 12/20/17 01:09 98 Trach Collar 6.0 28 12/20/17 00:00 67 12/20/17 00:00 97.9 66 20 135/52 98 Trach Collar 28 97.9 12/19/17 21:44 147/83 12/19/17 20:19 88 18 Trach Collar 6.0 28 12/19/17 20:19 Trach Collar 6.0 28 12/19/17 20:19 98 Trach Collar 6.0 28 12/19/17 20:00 98.3 61 20 147/83 96 Trach Collar 30 98.3 65 12/19/17 20:00 60 12/19/17 20:00 8.0 30 12/19/17 16:00 8.0 30 12/19/17 16:00 54 12/19/17 16:00 98.1 61 19 166/73 99 Room Air 98.1 12/19/17 15:36 151/79 12/19/17 13:12 Trach Collar 6.0 28 12/19/17 13:12 98 Trach Collar 6.0 28 12/19/17 12:00 8.0 30 12/19/17 12:00 97.5 63 20 151/79 97 Room Air 97.5 12/19/17 12:00 58 12/19/17 08:00 8.0 30 12/19/17 08:00 53 12/19/17 08:00 97.6 73 21 125/84 99 Room Air 97.6 12/19/17 07:37 Trach Collar 6.0 28 12/19/17 07:36 98 Trach Collar 6.0 28 12/19/17 07:34 76 18 Trach Collar 6.0 28 Intake and Output 12/19/17 12/20/17 19:00 07:00 Intake Total 525 ml 412 ml Output Total 2000 ml Balance -1475 ml 412 ml Intake Oral 500 ml IV Total 25 ml 412 ml Output Urine Total 2000 ml # Bowel Movements 1 Laboratory Tests 12/19/17 10:30: White Blood Count 7.1, Red Blood Count 3.70L, Hemoglobin 10.5L, Hematocrit 35.4L , Mean Corpuscular Volume 96, Mean Corpuscular Hemoglobin 28.5, Mean Corpuscular Hemoglobin Concent 29.7L, Red Cell Distribution Width 15.3H, Platelet Count 281, Mean Platelet Volume 7.7, Neutrophils (%) (Auto) 37.3L, Lymphocytes (%) (Auto) 45.2H, Monocytes (%) (Auto) 11.5H, Eosinophils (%) (Auto ) 4.7H, Basophils (%) (Auto) 1.3, Sodium Level 143, Potassium Level 3.9, Chloride Level 104, Carbon Dioxide Level 36H, Anion Gap 3L, Blood Urea Nitrogen 19H, Creatinine 1.0, Estimat Glomerular Filtration Rate > 60, Glucose Level 166H , Calcium Level 8.5, Phosphorus Level 4.4, Total Bilirubin 0.4, Aspartate Amino Transf (AST/SGOT) 48H, Alanine Aminotransferase (ALT/SGPT) 52, Alkaline Phosphatase 126H, Total Protein 7.1, Albumin 2.5L, Globulin 4.6, Albumin/ Globulin Ratio 0.5L Height (Feet): 5 Height (Inches): 8.00 Weight (Pounds): 317 General Appearance: alert EENT: normal ENT inspection Neck: normal inspection Cardiovascular: regular rhythm Respiratory/Chest: no respiratory distress Abdomen: no organomegaly Extremities: non-tender Edema: no edema noted Leg (L), no edema noted Leg (R) Edema: mild edema Neurologic: alert Skin: warm/dry Jem Palmer MD December 20, 2017 05:15
[2017-12-20] MEDS: HydrALAZINE 50mg tab ORAL SCH ×3 (06:05→21:25)
[2017-12-20] MEDS: NovoLOG Insulin Flexpen SUBQ SCH ×4 (06:05→21:27)
[2017-12-20 08:00] VITALS: BP 116/73
[2017-12-20] MEDS: Heparin 5000 units/ml inj SUBQ SCH ×2 (08:40→21:28)
[2017-12-20 12:00] VITALS: BP 139/75
--- NOTE | 2017-12-20 13:36 | Nephrology Progress Note ---
Assessment/Plan Problem List: (1) Acute renal failure (ARF) (2) Acute respiratory failure (3) Acute on chronic diastolic (congestive) heart failure (4) Elevated liver enzymes Assessment - Acute & chronic respiratory failure, - Bacteremia - ATN (acute tubular necrosis), ARF resolved - Acute encephalopathy - Aspiration pnemonia vs HCAP - Likely obesity hypoventilation syndrome - Elevated liver enzymes Plan no labs today yet Acute renal failure, resolved Mag supplement as needed HD last 12/11 low BP resolved resp failure , intubated, trached, resp management obese monitor renal parameters, Cr lowerin without HD Up hydralazine dose DC Dialysis cath- done Subjective ROS Limited/Unobtainable: No Constitutional: Reports: malaise Objective Objective Last 24 Hour Vital Signs Date Time Temp Pulse Resp B/P (MAP) Pulse Ox O2 Delivery O2 Flow Rate FiO2 12/20/17 13:32 99 Trach Collar 6.0 28 12/20/17 13:32 Trach Collar 6.0 28 12/20/17 12:00 98.2 60 18 139/75 99 Trach Collar 28 98.2 12/20/17 12:00 8.0 28 12/20/17 12:00 58 12/20/17 09:38 68 20 Trach Collar 6.0 28 12/20/17 09:38 98 Trach Collar 6.0 28 12/20/17 09:38 Trach Collar 6.0 28 12/20/17 08:00 97.7 64 18 116/73 100 Trach Collar 28 97.7 12/20/17 08:00 8.0 28 12/20/17 08:00 59 12/20/17 06:05 147/74 12/20/17 04:00 97.7 66 22 147/74 100 Trach Collar 28 97.7 12/20/17 04:00 8.0 28 12/20/17 04:00 60 12/20/17 01:09 Trach Collar 6.0 28 12/20/17 01:09 98 Trach Collar 6.0 28 12/20/17 00:00 67 12/20/17 00:00 97.9 66 20 135/52 98 Trach Collar 28 97.9 12/19/17 21:44 147/83 12/19/17 20:19 88 18 Trach Collar 6.0 28 12/19/17 20:19 Trach Collar 6.0 28 12/19/17 20:19 98 Trach Collar 6.0 28 12/19/17 20:00 98.3 61 20 147/83 96 Trach Collar 30 98.3 65 12/19/17 20:00 60 12/19/17 20:00 8.0 30 12/19/17 16:00 8.0 30 12/19/17 16:00 54 12/19/17 16:00 98.1 61 19 166/73 99 Room Air 98.1 12/19/17 15:36 151/79 Intake and Output 12/19/17 12/20/17 18:59 06:59 Intake Total 825 ml 837 ml Output Total 2000 ml 2000 ml Balance -1175 ml -1163 ml Intake Oral 500 ml 350 ml IV Total 325 ml 487 ml Output Urine Total 2000 ml 2000 ml # Bowel Movements 1 Height (Feet): 5 Height (Inches): 8.00 Weight (Pounds): 300 General Appearance: no apparent distress Respiratory/Chest: decreased breath sounds Abdomen: soft Objective no change AGUSTIN CONTRERAS December 20, 2017 13:36
--- NOTE | 2017-12-20 13:48 | General Progress Note ---
Assessment/Plan Assessment/Plan #. Anemia due to underlying chronic disease. --> Continue to closely monitor. Anemia workup has been reviewed. --> Blood transfusion not required unless symptomatic or hgb <7 --> Hgb remains stable. Does not need transfusion at this time --> Ferritin and tibc have been reordered, most recent was back in 08/2017 #. Coagulopathy, potentially secondary to liver problem, liver disease. --> Currently off of anticoagulation, currently inr has improved --> Administer Vit K in case patient bleeds, or inr increases or if if in need of urgent procedure #. Leukocytosis, potentially secondary to infection. --> Resolved at this time. --> S/P antibiotic treatment. #. Transaminitis as well as elevated --> Continue to closely monitor for improvement. #. Acute tubular necrosis with elevated creatinine. Continue to closely monitor. #. Obesity hypoventilation syndrome. --> Morbid obesity. #. Respiratory failure, status post intubation. --> s/p tracheostomy --> Pt now weaned off vent. On Trach collar #. Acute kidney injury. The patient's creatinine within normal limits on admission, potentially secondary to shock. #. Bradycardia. --> Improved. Subjective Constitutional: Denies: no symptoms, chills, diaphoresis, fever, malaise, weakness, other HEENT: Denies: no symptoms, eye pain, blurred vision, tearing, double vision, ear pain, ear discharge, nose pain, nose congestion, throat pain, throat swelling, mouth pain, mouth swelling, other Cardiovascular: Denies: no symptoms, chest pain, edema, irregular heart rate, lightheadedness, palpitations, syncope, other Respiratory: Denies: no symptoms, cough, orthopnea, shortness of breath, SOB with excertion, SOB at rest, sputum, stridor, wheezing, other Gastrointestinal/Abdominal: Denies: no symptoms, abdomen distended, abdominal pain, black stools, tarry stools, blood in stool, constipated, diarrhea, difficulty swallowing, nausea, poor appetite, poor fluid intake, rectal bleeding , vomiting, other Genitourinary: Denies: no symptoms, burning, discharge, frequency, flank pain, hematuria, incontinence, pain, urgency, other Neurologic/Psychiatric: Denies: no symptoms, anxiety, depressed, emotional problems, headache, numbness, paresthesia, pre-existing deficit, seizure, tingling, tremors, weakness, other Hematologic/Lymphatic: Reports: anemia Allergies: Coded Allergies: ASPARTAME (Verified Allergy, Unknown, 11/30/17) Headache Subjective No fever. ++trach collar. H/H stable. confused Objective Last 24 Hour Vital Signs Date Time Temp Pulse Resp B/P (MAP) Pulse Ox O2 Delivery O2 Flow Rate FiO2 12/20/17 13:32 99 Trach Collar 6.0 28 12/20/17 13:32 Trach Collar 6.0 28 12/20/17 12:00 98.2 60 18 139/75 99 Trach Collar 28 98.2 12/20/17 12:00 8.0 28 12/20/17 12:00 58 12/20/17 09:38 68 20 Trach Collar 6.0 28 12/20/17 09:38 98 Trach Collar 6.0 28 12/20/17 09:38 Trach Collar 6.0 28 12/20/17 08:00 97.7 64 18 116/73 100 Trach Collar 28 97.7 12/20/17 08:00 8.0 28 12/20/17 08:00 59 12/20/17 06:05 147/74 12/20/17 04:00 97.7 66 22 147/74 100 Trach Collar 28 97.7 12/20/17 04:00 8.0 28 12/20/17 04:00 60 12/20/17 01:09 Trach Collar 6.0 28 12/20/17 01:09 98 Trach Collar 6.0 28 12/20/17 00:00 67 12/20/17 00:00 97.9 66 20 135/52 98 Trach Collar 28 97.9 12/19/17 21:44 147/83 12/19/17 20:19 88 18 Trach Collar 6.0 28 12/19/17 20:19 Trach Collar 6.0 28 12/19/17 20:19 98 Trach Collar 6.0 28 12/19/17 20:00 98.3 61 20 147/83 96 Trach Collar 30 98.3 65 12/19/17 20:00 60 12/19/17 20:00 8.0 30 12/19/17 16:00 8.0 30 12/19/17 16:00 54 12/19/17 16:00 98.1 61 19 166/73 99 Room Air 98.1 12/19/17 15:36 151/79 Intake and Output 12/19/17 12/20/17 19:00 07:00 Intake Total 850 ml 837 ml Output Total 2000 ml 2000 ml Balance -1150 ml -1163 ml Intake Oral 500 ml 350 ml IV Total 350 ml 487 ml Output Urine Total 2000 ml 2000 ml # Bowel Movements 1 Height (Feet): 5 Height (Inches): 8.00 Weight (Pounds): 300 General Appearance: confused EENT: normal ENT inspection Neck: supple Cardiovascular: regular rhythm Respiratory/Chest: lungs clear Abdomen: no organomegaly Extremities: non-tender Edema: no edema noted Leg (L), no edema noted Leg (R) Edema: mild edema Neurologic: general education professor II-XII grossly normal Jem Palmer MD December 20, 2017 13:48
[2017-12-20 14:35] LABS: % IRON SATURATION 25 % (15-50); IRON 57 ug/dL (50-175); TOTAL IRON BINDING CAPACITY 224 ug/dL (250-450)
[2017-12-20 14:54] LABS: FERRITIN 95 NG/ML (8-388)
--- NOTE | 2017-12-20 15:14 | Infectious Diseases Prog Note ---
Assessment/Plan Assessment/Plan ASSESSMENT AND PLAN: 1. respiratory status stable, f/u chest x-ray negative for consolidation, hx sepsis, leukocytosis, fevers, hx mrsa pna/uri, hx possible diphtheroids bacteremia, hx fungal uti, hx arf, trach, no vent currently - discontinue zosyn and zyvox - f/u sputum culture negative - f/u labs - surveillance cultures negative - off vent currently - s/p tracheostomy - arf better - orders entered 2. Respiratory failure, on vent, no pressors - treatment per primary and pulmonary 3. Vargas. 4. The patient has history of hypertension. 5. Diabetes. 6. Hyperlipidemia. 7. Blood sugar and blood pressure treatment per primary. 8. History of asthma. 9. History of myocardial infarction and coronary artery disease. 10. History of heart failure/congestive heart failure. 11. History of gout. 12. History of sepsis and pneumonia. 13. History of muscle weakness. 14. Gastroesophageal reflux disease. 15. Past orders were noted. 16. Allergies are negative. 17. Family History is noncontributory. 18. Social history is negative. 19. MAR was noted. 20. Case discussed with RN. 21. Continue treatment per primary and consultants. 22. Case discussed with Dr. Matthews. 23. Case discussed with RN in the ICU. 24. Orders were noted and entered. 25. Notes and records were noted. 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 Subjective Constitutional: Reports: fatigue, other - + trach, no vent, respiratory stable ; Denies: fever HEENT: Denies: congestion Respiratory: Denies: shortness of breath Cardiovascular: Denies: chest pain Gastrointestinal/Abdominal: Denies: nausea, vomiting, diarrhea Genitourinary: Reports: other - + vargas Neurologic: Denies: headache Psychiatric: Denies: depression Skin: Denies: rash Hematologic: Denies: bleeding Musculoskeletal: Denies: pain Allergies: Coded Allergies: ASPARTAME (Verified Allergy, Unknown, 11/30/17) Headache Objective Vital Signs Last 24 Hour Vital Signs Date Time Temp Pulse Resp B/P (MAP) Pulse Ox O2 Delivery O2 Flow Rate FiO2 12/20/17 13:32 99 Trach Collar 6.0 28 12/20/17 13:32 Trach Collar 6.0 28 12/20/17 12:00 98.2 60 18 139/75 99 Trach Collar 28 98.2 5/13/18 12:00 8.0 28 12/20/17 12:00 58 12/20/17 09:38 68 20 Trach Collar 6.0 28 12/20/17 09:38 98 Trach Collar 6.0 28 12/20/17 09:38 Trach Collar 6.0 28 12/20/17 08:00 97.7 64 18 116/73 100 Trach Collar 28 97.7 12/20/17 08:00 8.0 28 12/20/17 08:00 59 12/20/17 06:05 147/74 12/20/17 04:00 97.7 66 22 147/74 100 Trach Collar 28 97.7 12/20/17 04:00 8.0 28 12/20/17 04:00 60 12/20/17 01:09 Trach Collar 6.0 28 12/20/17 01:09 98 Trach Collar 6.0 28 12/20/17 00:00 67 12/20/17 00:00 97.9 66 20 135/52 98 Trach Collar 28 97.9 12/19/17 21:44 147/83 12/19/17 20:19 88 18 Trach Collar 6.0 28 12/19/17 20:19 Trach Collar 6.0 28 12/19/17 20:19 98 Trach Collar 6.0 28 12/19/17 20:00 98.3 61 20 147/83 96 Trach Collar 30 98.3 65 12/19/17 20:00 60 12/19/17 20:00 8.0 30 12/19/17 16:00 8.0 30 12/19/17 16:00 54 12/19/17 16:00 98.1 61 19 166/73 99 Room Air 98.1 12/19/17 15:36 151/79 Height (Feet): 5 Height (Inches): 8.00 Weight (Pounds): 300 General Appearance: no acute distress HEENT: normocephalic, atraumatic, anicteric, mucous membranes moist Respiratory/Chest: lungs clear, normal breath sounds, no accessory muscle use, respiratory distress Cardiovascular: normal rate, regular rhythm, no gallop/murmur, no JVD Abdomen: normal bowel sounds, soft, non tender, no organomegaly, non distended Genitourinary: other - + vargas - urine clear Extremities: no cyanosis Skin: no rash Neurologic/Psychiatric: safety professional II-XII grossly normal, alert, responsive Lymphatic: no neck adenopathy Musculoskeletal: no effusion Objective Chest x-ray - 12/04 - Comparison: One half hour earlier Findings: Interim endotracheal intubation, endotracheal tube in good position, tip projecting approximately 4 cm above the lucía. The heart is enlarged. Lungs and pleural spaces are clear. Impression: Satisfactory endotracheal intubation Other findings as noted Chest x-ray - 12/06 - A single view chest radiograph was obtained. Findings: Endotracheal tube and nasogastric tubes are in good position unchanged. Lung volumes remain low. Lungs are essentially clear. Heart is enlarged. Bones are unremarkable. IMPRESSION: No acute findings Chest x-ray - 12/08 - IMPRESSION: Right jugular Dillan catheter in good position. No pneumothorax. Mild interstitial edema suspected. 12/10 - chest x-ray - negative (noted) 12/14 - chest x-ray - lungs clear (report noted) 12/19 - chest x-ray - nad (report noted) Microbiology Date/Time Source Procedure Growth Status 12/08/17 13:10 Blood Blood Culture - Final NO GROWTH AFTER 5 DAYS Complete 12/18/17 18:48 Sputum Gram Stain - Final Resulted 12/18/17 18:48 Sputum Sputum Culture - Preliminary Resulted 12/06/17 12:40 Urine,Clean Catch Urine Culture - Final Tamia Tropicalis Tamia Albicans Complete 12/04/17 08:30 Rectum VRE Culture - Final Enterococcus Faecium - Vre Complete Microbiology Date/Time Source Procedure Growth Status 12/18/17 18:48 Sputum Gram Stain - Final Resulted 12/18/17 18:48 Sputum Sputum Culture - Preliminary Resulted Labs Test 12/18/17 10:10 12/19/17 10:30 12/20/17 13:20 White Blood Count 7.7 K/UL (4.8-10.8) 7.1 K/UL (4.8-10.8) Red Blood Count 3.62 M/UL (4.20-5.40) 3.70 M/UL (4.20-5.40) Hemoglobin 10.3 G/DL (12.0-16.0) 10.5 G/DL (12.0-16.0) Hematocrit 34.3 % (37.0-47.0) 35.4 % (37.0-47.0) Mean Corpuscular Volume 95 FL (80-99) 96 FL (80-99) Mean Corpuscular Hemoglobin 28.5 PG (27.0-31.0) 28.5 PG (27.0-31.0) Mean Corpuscular Hemoglobin Concent 30.1 G/DL (32.0-36.0) 29.7 G/DL (32.0-36.0) Red Cell Distribution Width 15.6 % (11.6-14.8) 15.3 % (11.6-14.8) Platelet Count 289 K/UL (150-450) 281 K/UL (150-450) Mean Platelet Volume 7.7 FL (6.5-10.1) 7.7 FL (6.5-10.1) Neutrophils (%) (Auto) 38.7 % (45.0-75.0) 37.3 % (45.0-75.0) Lymphocytes (%) (Auto) 42.6 % (20.0-45.0) 45.2 % (20.0-45.0) Monocytes (%) (Auto) 12.5 % (1.0-10.0) 11.5 % (1.0-10.0) Eosinophils (%) (Auto) 5.1 % (0.0-3.0) 4.7 % (0.0-3.0) Basophils (%) (Auto) 1.1 % (0.0-2.0) 1.3 % (0.0-2.0) Sodium Level 144 MMOL/L (136-145) 143 MMOL/L (136-145) Potassium Level 4.0 MMOL/L (3.5-5.1) 3.9 MMOL/L (3.5-5.1) Chloride Level 105 MMOL/L (98-107) 104 MMOL/L (98-107) Carbon Dioxide Level 37 MMOL/L (21-32) 36 MMOL/L (21-32) Anion Gap 2 mmol/L (5-15) 3 mmol/L (5-15) Blood Urea Nitrogen 24 mg/dL (7-18) 19 mg/dL (7-18) Creatinine 1.1 MG/DL (0.55-1.30) 1.0 MG/DL (0.55-1.30) Estimat Glomerular Filtration Rate > 60 mL/min (>60) > 60 mL/min (>60) Glucose Level 186 MG/DL (74-106) 166 MG/DL (74-106) Uric Acid 7.3 MG/DL (2.6-7.2) Calcium Level 8.6 MG/DL (8.5-10.1) 8.5 MG/DL (8.5-10.1) Phosphorus Level 4.2 MG/DL (2.5-4.9) 4.4 MG/DL (2.5-4.9) Magnesium Level 1.3 MG/DL (1.8-2.4) Total Bilirubin 0.3 MG/DL (0.2-1.0) 0.4 MG/DL (0.2-1.0) Aspartate Amino Transf (AST/SGOT) 48 U/L (15-37) 48 U/L (15-37) Alanine Aminotransferase (ALT/SGPT) 51 U/L (12-78) 52 U/L (12-78) Alkaline Phosphatase 132 U/L (46-116) 126 U/L (46-116) Total Protein 7.0 G/DL (6.4-8.2) 7.1 G/DL (6.4-8.2) Albumin 2.5 G/DL (3.4-5.0) 2.5 G/DL (3.4-5.0) Globulin 4.5 g/dL 4.6 g/dL Albumin/Globulin Ratio 0.6 (1.0-2.7) 0.5 (1.0-2.7) Reticulocyte Count 0.6 % (0.0-2.0) Fibrinogen 475 mg/dL (200-400) Iron Level 57 ug/dL (50-175) Total Iron Binding Capacity 224 ug/dL (250-450) Percent Iron Saturation 25 % (15-50) Unsaturated Iron Binding 167 ug/dL (112-346) Ferritin 95 NG/ML (8-388) Laboratory Tests Test 12/20/17 13:20 Reticulocyte Count 0.6 % (0.0-2.0) Fibrinogen 475 mg/dL (200-400) H Iron Level 57 ug/dL (50-175) Total Iron Binding Capacity 224 ug/dL (250-450) L Percent Iron Saturation 25 % (15-50) Unsaturated Iron Binding 167 ug/dL (112-346) Ferritin 95 NG/ML (8-388) Current Medications Medications (Trade) Dose Ordered Sig/Felipe Route PRN Reason Start Time Stop Time Status Last Admin Dose Admin Acetaminophen (Tylenol) 650 mg Q4H PRN NG Mild Pain 12/17/17 17:27 01/10/18 17:26 12/19/17 20:57 Acetaminophen (Tylenol) 650 mg Q4H PRN ORAL Fever (temp>100.5F) 12/17/17 17:27 01/03/18 17:26 Clotrimazole (Lotrimin) 1 applic THREE TIMES A DAY TOPIC 12/17/17 18:00 01/08/18 08:59 12/20/17 12:29 Dextrose (Dextrose 50%) 25 ml STAT PRN IV Hypoglycemia BS 60-69mg/dl 12/18/17 17:28 01/10/18 17:27 Dextrose (Dextrose 50%) 50 ml STAT PRN IV Hypoglycemia BS less than 60mg 12/18/17 17:28 01/10/18 17:27 Diphenhydramine HCl (Benadryl) 12.5 mg Q6H PRN IVP Itching 12/17/17 17:28 01/07/18 17:27 12/19/17 02:20 Famotidine (Pepcid) 20 mg BID ORAL 12/19/17 18:00 01/16/18 17:59 12/20/17 08:39 Heparin Sodium (Porcine) (Heparin 5000 units/ml) 5,000 units EVERY 12 HOURS SUBQ 12/19/17 21:00 01/03/18 20:59 12/20/17 08:40 Hydralazine HCl (Apresoline) 10 mg Q4H PRN IV sbp> 160 mmHg 12/17/17 17:29 01/08/18 17:28 12/18/17 22:45 Hydralazine HCl (Apresoline) 50 mg EVERY 8 HOURS ORAL 12/19/17 15:00 01/08/18 14:59 12/20/17 06:05 Insulin Aspart (NovoLOG) AC+HS SUBQ 12/17/17 21:00 01/04/18 12:29 12/20/17 12:28 Linezolid 300 ml @ 300 mls/hr Q12HR@1000,2200 IVPB 12/18/17 22:00 12/25/17 21:59 12/20/17 10:28 Nitroglycerin (Ntg) 0.4 mg Q5M PRN SL Prn Chest Pain 12/17/17 17:29 01/03/18 17:28 Ondansetron HCl (Zofran) 4 mg Q6H PRN IVP Nausea & Vomiting 12/17/17 17:30 01/03/18 17:29 Piperacillin Sod/ Tazobactam Sod 3.375 gm/Dextrose 100 ml @ 25 mls/hr Q8H IVPB 12/18/17 18:00 12/25/17 17:59 12/20/17 10:28 JUNI ABDUL December 20, 2017 15:14
[2017-12-20 16:00] VITALS: BP 156/90
[2017-12-20 20:00] VITALS: BP 153/74
[2017-12-20] MEDS ORDERED: Sterile Water Irrig 1000ml IRRIG ONE (20:27)
[2017-12-20] MEDS ORDERED: Tubing IV Secondary IV ONE ×2 (20:27→20:43)
--- NOTE | 2017-12-20 23:33 | General Progress Note ---
Assessment/Plan Problem List: (1) Acute toxic metabolic encephalopathy (2) Acute respiratory failure with hypoxia and hypercapnia ICD Codes: J96.01 - Acute respiratory failure with hypoxia; J96.02 - Acute respiratory failure with hypercapnia SNOMED: 84693539, 06935918, 390011702 (3) Likely obesity hypoventilation syndrome (4) Severe sepsis ICD Codes: A41.9 - Sepsis, unspecified organism; R65.20 - Severe sepsis without septic shock SNOMED: 87014834 (5) KASHIF (acute kidney injury) ICD Codes: N17.9 - Acute kidney failure, unspecified SNOMED: 56053650 (6) ATN (acute tubular necrosis) ICD Codes: N17.0 - Acute kidney failure with tubular necrosis SNOMED: 24473077 (7) Elevated liver enzymes ICD Codes: R74.8 - Abnormal levels of other serum enzymes SNOMED: 787054377 (8) Aspiration pnemonia vs HCAP (9) UTI (urinary tract infection) ICD Codes: N39.0 - Urinary tract infection, site not specified SNOMED: 03525510 Qualifiers: Qualified Codes: N39.0 - Urinary tract infection, site not specified (10) Morbid obesity ICD Codes: E66.01 - Morbid (severe) obesity due to excess calories SNOMED: 094761113, 48916008058481 (11) Chronic diastolic (congestive) heart failure ICD Codes: I50.32 - Chronic diastolic (congestive) heart failure SNOMED: 64633661, 276664907 (12) DM2 (diabetes mellitus, type 2) ICD Codes: E11.9 - Type 2 diabetes mellitus without complications SNOMED: 15114391 (13) Hypertension ICD Codes: I10 - Essential (primary) hypertension SNOMED: 41077408 (14) Fatty liver ICD Codes: K76.0 - Fatty (change of) liver, not elsewhere classified SNOMED: 336134504 (15) GERD (gastroesophageal reflux disease) ICD Codes: K21.9 - Gastro-esophageal reflux disease without esophagitis SNOMED: 092387605 (16) Asthma ICD Codes: J45.909 - Unspecified asthma, uncomplicated SNOMED: 456812551 (17) H/O supraventricular tachycardia ICD Codes: Z86.79 - Personal history of other diseases of the circulatory system SNOMED: 624211178010636 Status: stable Assessment/Plan Pulm/critical care consulted This was pt's 3rd intubation in less than 6 months. D/w pulm re likely plan for tracheostomy. D/w pt and son. Surgery consulted s/p tracheostomy on 12/10/17 Pt now weaned off vent. Doing well on trach collar Currently not requiring pressors. Goal MAP 65 and above Cardiology consulted given bradycardia. Likely 2/2 midodrine Hold midodrine s/p steroids ID consulted s/p empiric linezolid, cefepime and flagyl per ID (abx d/c'd 12/13/17) ID restarted abx: zosyn and zyvox since more sob/congested (12/18-) Repeat blood cx show ngtd Nephrology consulted given KASHIF HD line placed and started on HD on 12/07/17. Last HD 12/11. HD catheter removed. Hold HD for now per renal as Cr normalizing Strict I/O's Trend CBC, CMP CARTON REPAIRER eval ordered--soft diet as tolerated Pass-donny speaking valve trial Pain control, bowel regimen Supportive care PPI PT/OT CM consulted for d/c plan to subacute facility vs LTACH such as [place]. Likely on Thu or DVT Prophylaxis: SCD, HSQ Code Status: Full Hospital Classification Declaration: Based on this initial evaluation, and depending on the patient's clinical course, I anticipate that this patient will require hospitalization for 1-2 days for acute respiratory failure, sepsis and close respiratory/hemodynamic monitoring. Disposition: Once the patient is stable to leave the hospital, I anticipate the patient will likely be discharged to the following environment: subacute SNF vs LTACH Plan outlined above discussed with patient/family, pulm/critical care, ID regarding mgmt and dispo. D/w pulm re weaning vent. D/w ID re monitor off abx. D /w renal re monitor off HD. D/w pulm re weaned off vent, trach collar, CPAP qHS Time of note may not reflect time of encounter. Subjective Date patient seen: December 20, 2017 Time patient seen: 15:00 ROS Limited/Unobtainable: No Constitutional: Reports: no symptoms HEENT: Reports: no symptoms Cardiovascular: Reports: no symptoms Respiratory: Reports: cough, shortness of breath Gastrointestinal/Abdominal: Reports: no symptoms Genitourinary: Reports: no symptoms Neurologic/Psychiatric: Reports: no symptoms Endocrine: Reports: no symptoms Hematologic/Lymphatic: Reports: no symptoms Allergies: Coded Allergies: ASPARTAME (Verified Allergy, Unknown, 11/30/17) Headache All Systems: reviewed and negative except above Subjective No acute o/n events s/p tracheostomy POD#10 VSS SCr normalized. Good UOP LFTs downtrending Pt doing well. Awake, alert. Passed swallow eval--tolerating PO. Speaking well. Denies f/c, n/v, d/c, chest pain. SOB, cough stable Objective Last 24 Hour Vital Signs Date Time Temp Pulse Resp B/P (MAP) Pulse Ox O2 Delivery O2 Flow Rate FiO2 12/20/17 21:25 153/74 12/20/17 20:00 98.1 50 20 153/74 97 Trach Collar 28 98.1 12/20/17 19:00 98 Trach Collar 6.0 28 12/20/17 19:00 Trach Collar 6.0 28 12/20/17 19:00 64 18 Trach Collar 6.0 28 12/20/17 16:18 6.0 28 12/20/17 16:00 59 12/20/17 16:00 97.4 62 18 156/90 100 Trach Collar 28 97.4 12/20/17 15:35 139/75 12/20/17 13:32 99 Trach Collar 6.0 28 12/20/17 13:32 Trach Collar 6.0 28 12/20/17 12:00 98.2 60 18 139/75 99 Trach Collar 28 98.2 12/20/17 12:00 8.0 28 12/20/17 12:00 58 12/20/17 09:38 68 20 Trach Collar 6.0 28 12/20/17 09:38 98 Trach Collar 6.0 28 12/20/17 09:38 Trach Collar 6.0 28 12/20/17 08:00 97.7 64 18 116/73 100 Trach Collar 28 97.7 12/20/17 08:00 8.0 28 12/20/17 08:00 59 12/20/17 06:05 147/74 12/20/17 04:00 97.7 66 22 147/74 100 Trach Collar 28 97.7 12/20/17 04:00 8.0 28 12/20/17 04:00 60 12/20/17 01:09 Trach Collar 6.0 28 12/20/17 01:09 98 Trach Collar 6.0 28 12/20/17 00:00 67 12/20/17 00:00 97.9 66 20 135/52 98 Trach Collar 28 97.9 Intake and Output 12/19/17 12/20/17 19:00 07:00 Intake Total 850 ml 837 ml Output Total 2000 ml 2000 ml Balance -1150 ml -1163 ml Intake Oral 500 ml 350 ml IV Total 350 ml 487 ml Output Urine Total 2000 ml 2000 ml # Bowel Movements 1 Laboratory Tests 12/20/17 13:20: Reticulocyte Count 0.6, Fibrinogen 475H, Iron Level 57, Total Iron Binding Capacity 224L, Percent Iron Saturation 25, Unsaturated Iron Binding 167, Ferritin 95 Height (Feet): 5 Height (Inches): 8.00 Weight (Pounds): 300 Objective General: awake, alert, NAD, morbidly obese Head: normocephalic, without obvious abnormality, atraumatic Eyes: conjunctivae/corneas clear. PERRL, EOM's intact Throat: lips, mucosa, and tongue normal. MMM Neck: supple, symmetrical, trachea midline, +tracheostomy c/d/i Lungs:+rhonchi b/l Heart: regular rate and rhythm, S1, S2 normal, no murmur, click, rub or gallop Abdomen: soft, non-tender, non-distended, bowel sounds normal Extremities: extremities normal, atraumatic, no cyanosis or edema Pulses: 2+ and symmetric Skin: skin color, texture, turgor normal; no rashes or lesions Neurologic: sedated Cassie Bolivar M.D. December 20, 2017 23:33
[2017-12-21] VITALS (7 sets, daily range): BP systolic 116–146; BP diastolic 60–88
[2017-12-21] MEDS: HydrALAZINE 50mg tab ORAL SCH ×3 (06:26→22:27)
[2017-12-21] MEDS: NovoLOG Insulin Flexpen SUBQ SCH ×4 (06:29→20:55)
--- NOTE | 2017-12-21 07:09 | General Progress Note ---
Assessment/Plan Assessment/Plan #. Anemia due to underlying chronic disease. --> Continue to closely monitor. Anemia workup has been reviewed. --> Blood transfusion not required unless symptomatic or hgb <7 --> Hgb remains stable. Does not need transfusion at this time, ferritin of 95 , tibc 227 --> Currently no evidence of bleed noted #. Coagulopathy, potentially secondary to liver problem, liver disease. --> Currently off of anticoagulation, currently inr has improved --> Administer Vit K in case patient bleeds, or inr increases or if if in need of urgent procedure #. Leukocytosis, potentially secondary to infection. --> Resolved at this time. --> S/P antibiotic treatment. #. Transaminitis as well as elevated --> Continue to closely monitor for improvement. #. Acute tubular necrosis with elevated creatinine. Continue to closely monitor. #. Obesity hypoventilation syndrome. --> Morbid obesity. #. Respiratory failure, status post intubation. --> s/p tracheostomy on 12/10, On Trach collar, 3rd intubation in 6 mo #. Acute kidney injury. The patient's creatinine within normal limits on admission, potentially secondary to shock. #. Bradycardia. --> Improved. Subjective HEENT: Reports: no symptoms Cardiovascular: Reports: no symptoms Respiratory: Reports: no symptoms Gastrointestinal/Abdominal: Reports: poor appetite Genitourinary: Reports: no symptoms Neurologic/Psychiatric: Reports: no symptoms Endocrine: Reports: no symptoms Hematologic/Lymphatic: Reports: anemia Allergies: Coded Allergies: ASPARTAME (Verified Allergy, Unknown, 11/30/17) Headache Subjective No fever. ++trach collar. H/H stable. remains confused/lethargic Objective Last 24 Hour Vital Signs Date Time Temp Pulse Resp B/P (MAP) Pulse Ox O2 Delivery O2 Flow Rate FiO2 12/21/17 06:26 144/80 12/21/17 04:00 61 12/21/17 04:00 98.4 68 20 144/80 98 Trach Collar 6.0 28 98.4 12/21/17 04:00 6.0 28 12/21/17 00:53 Trach Collar 6.0 28 12/21/17 00:53 98 Trach Collar 6.0 28 12/21/17 00:00 6.0 28 12/21/17 00:00 97.2 86 20 142/88 98 Trach Collar 6.0 28 97.2 12/21/17 00:00 62 12/20/17 21:25 153/74 12/20/17 20:00 98.1 50 20 153/74 97 Trach Collar 28 98.1 12/20/17 20:00 58 12/20/17 20:00 6.0 28 12/20/17 19:00 98 Trach Collar 6.0 28 12/20/17 19:00 Trach Collar 6.0 28 12/20/17 19:00 64 18 Trach Collar 6.0 28 12/20/17 16:18 6.0 28 12/20/17 16:00 59 12/20/17 16:00 97.4 62 18 156/90 100 Trach Collar 28 97.4 12/20/17 15:35 139/75 12/20/17 13:32 99 Trach Collar 6.0 28 12/20/17 13:32 Trach Collar 6.0 28 12/20/17 12:00 98.2 60 18 139/75 99 Trach Collar 28 98.2 12/20/17 12:00 8.0 28 12/20/17 12:00 58 12/20/17 09:38 68 20 Trach Collar 6.0 28 12/20/17 09:38 98 Trach Collar 6.0 28 12/20/17 09:38 Trach Collar 6.0 28 12/20/17 08:00 97.7 64 18 116/73 100 Trach Collar 28 97.7 12/20/17 08:00 8.0 28 12/20/17 08:00 59 Intake and Output 12/20/17 12/21/17 19:00 07:00 Intake Total 940 ml 240 ml Output Total 1200 ml 1500 ml Balance -260 ml -1260 ml Intake Oral 540 ml 240 ml IV Total 400 ml Output Urine Total 1200 ml 1500 ml # Bowel Movements 1 Laboratory Tests 12/20/17 13:20: Reticulocyte Count 0.6, Fibrinogen 475H, Iron Level 57, Total Iron Binding Capacity 224L, Percent Iron Saturation 25, Unsaturated Iron Binding 167, Ferritin 95 Height (Feet): 5 Height (Inches): 8.00 Weight (Pounds): 296 General Appearance: no apparent distress EENT: PERRL/EOMI Neck: normal alignment Cardiovascular: regular rhythm Respiratory/Chest: normal breath sounds Abdomen: no organomegaly Extremities: non-tender Edema: 1+ Leg (L), 1+ Leg (R) Edema: mild edema Neurologic: oriented x 3 Skin: warm/dry Jem Palmer MD December 21, 2017 07:09
[2017-12-21] MEDS: Heparin 5000 units/ml inj SUBQ SCH ×2 (09:54→21:00)
[2017-12-21 10:39] LABS: BASOPHILS % (AUTO) 1.1 % (0.0-2.0); EOSINOPHILS % (AUTO) 4.3 % (0.0-3.0); HEMATOCRIT 37.4 % (37.0-47.0); HEMOGLOBIN 10.7 G/DL (12.0-16.0); LYMPHOCYTES % (AUTO) 49.5 % (20.0-45.0); MEAN CORPUSCULAR VOLUME 94 FL (80-99); MONOCYTES % (AUTO) 11.3 % (1.0-10.0); NEUTROPHILS % (AUTO) 33.8 % (45.0-75.0); PLATELET COUNT 247 K/UL (150-450); WHITE BLOOD COUNT 7.2 K/UL (4.8-10.8)
--- NOTE | 2017-12-21 10:49 | Nephrology Progress Note ---
Assessment/Plan Problem List: (1) Acute renal failure (ARF) (2) Acute respiratory failure (3) Acute on chronic diastolic (congestive) heart failure (4) Elevated liver enzymes Assessment - Acute & chronic respiratory failure, - Bacteremia - ATN (acute tubular necrosis), ARF resolved - Acute encephalopathy - Aspiration pnemonia vs HCAP - Likely obesity hypoventilation syndrome - Elevated liver enzymes Plan no labs today yet Acute renal failure, resolved Mag supplement as needed HD last 12/11 low BP resolved resp failure , intubated, trached, resp management obese monitor renal parameters, Cr lowerin without HD Up hydralazine dose DC Dialysis cath- done Subjective ROS Limited/Unobtainable: No Constitutional: Reports: malaise Objective Objective Last 24 Hour Vital Signs Date Time Temp Pulse Resp B/P (MAP) Pulse Ox O2 Delivery O2 Flow Rate FiO2 12/21/17 07:38 98 Trach Collar 6.0 28 12/21/17 07:38 60 18 Trach Collar 6.0 28 12/21/17 07:38 Trach Collar 6.0 28 12/21/17 06:26 144/80 12/21/17 04:00 61 12/21/17 04:00 98.4 68 20 144/80 98 Trach Collar 6.0 28 98.4 12/21/17 04:00 6.0 28 12/21/17 00:53 Trach Collar 6.0 28 12/21/17 00:53 98 Trach Collar 6.0 28 12/21/17 00:00 6.0 28 12/21/17 00:00 97.2 86 20 142/88 98 Trach Collar 6.0 28 97.2 12/21/17 00:00 62 12/20/17 21:25 153/74 12/20/17 20:00 98.1 50 20 153/74 97 Trach Collar 28 98.1 12/20/17 20:00 58 12/20/17 20:00 6.0 28 12/20/17 19:00 98 Trach Collar 6.0 28 12/20/17 19:00 Trach Collar 6.0 28 12/20/17 19:00 64 18 Trach Collar 6.0 28 12/20/17 16:18 6.0 28 12/20/17 16:00 59 12/20/17 16:00 97.4 62 18 156/90 100 Trach Collar 28 97.4 12/20/17 15:35 139/75 12/20/17 13:32 99 Trach Collar 6.0 28 12/20/17 13:32 Trach Collar 6.0 28 12/20/17 12:00 98.2 60 18 139/75 99 Trach Collar 28 98.2 12/20/17 12:00 8.0 28 12/20/17 12:00 58 Intake and Output 12/20/17 12/21/17 19:00 07:00 Intake Total 940 ml 240 ml Output Total 1200 ml 1500 ml Balance -260 ml -1260 ml Intake Oral 540 ml 240 ml IV Total 400 ml Output Urine Total 1200 ml 1500 ml # Bowel Movements 1 Laboratory Tests 12/20/17 13:20: Reticulocyte Count 0.6, Fibrinogen 475H, Iron Level 57, Total Iron Binding Capacity 224L, Percent Iron Saturation 25, Unsaturated Iron Binding 167, Ferritin 95 12/21/17 10:00: White Blood Count 7.2, Red Blood Count 4.00L, Hemoglobin 10.7L, Hematocrit 37.4 , Mean Corpuscular Volume 94, Mean Corpuscular Hemoglobin 26.8L, Mean Corpuscular Hemoglobin Concent 28.7L, Red Cell Distribution Width 15.0H, Platelet Count 247, Mean Platelet Volume 8.2, Neutrophils (%) (Auto) 33.8L, Lymphocytes (%) (Auto) 49.5H, Monocytes (%) (Auto) 11.3H, Eosinophils (%) (Auto ) 4.3H, Basophils (%) (Auto) 1.1, Sodium Level [Pending], Potassium Level [ Pending], Chloride Level [Pending], Carbon Dioxide Level [Pending], Blood Urea Nitrogen [Pending], Creatinine [Pending], Estimat Glomerular Filtration Rate [ Pending], Glucose Level [Pending], Uric Acid [Pending], Calcium Level [Pending] , Phosphorus Level [Pending], Magnesium Level [Pending], Total Bilirubin [ Pending], Aspartate Amino Transf (AST/SGOT) [Pending], Alanine Aminotransferase (ALT/SGPT) [Pending], Alkaline Phosphatase [Pending], C-Reactive Protein, Quantitative [Pending], Pro-B-Type Natriuretic Peptide [Pending], Total Protein [Pending], Albumin [Pending], Globulin [Pending] Height (Feet): 5 Height (Inches): 8.00 Weight (Pounds): 296 General Appearance: no apparent distress Objective no change AGUSTIN CONTRERAS December 21, 2017 10:49
[2017-12-21 11:21] LABS: ALANINE AMINOTRANSFERASE 45 U/L (12-78); ALBUMIN 2.4 G/DL (3.4-5.0); ALBUMIN/GLOBULIN RATIO 0.5 (1.0-2.7); ALKALINE PHOSPHATASE 104 U/L (46-116); ANION GAP 5 mmol/L (5-15); ASPARTATE AMINO TRANSFERASE 35 U/L (15-37); BILIRUBIN,TOTAL 0.4 MG/DL (0.2-1.0); BLOOD UREA NITROGEN 9 mg/dL (7-18); CALCIUM 7.9 MG/DL (8.5-10.1); CARBON DIOXIDE 35 MMOL/L (21-32); CHLORIDE 101 MMOL/L (98-107); CREATININE 0.9 MG/DL (0.55-1.30); PHOSPHORUS 4.4 MG/DL (2.5-4.9); POTASSIUM 3.4 MMOL/L (3.5-5.1); SODIUM 141 MMOL/L (136-145)
--- NOTE | 2017-12-21 12:39 | General Progress Note ---
Assessment/Plan Problem List: (1) UTI (urinary tract infection) ICD Codes: N39.0 - Urinary tract infection, site not specified SNOMED: 35211674 Qualifiers: Qualified Codes: N39.0 - Urinary tract infection, site not specified (2) Morbid obesity ICD Codes: E66.01 - Morbid (severe) obesity due to excess calories SNOMED: 152997261, 72113012106409 (3) Fatty liver ICD Codes: K76.0 - Fatty (change of) liver, not elsewhere classified SNOMED: 213261152 (4) Acute respiratory failure with hypoxia and hypercapnia ICD Codes: J96.01 - Acute respiratory failure with hypoxia; J96.02 - Acute respiratory failure with hypercapnia SNOMED: 07301897, 22775475, 044543042 (5) GERD (gastroesophageal reflux disease) ICD Codes: K21.9 - Gastro-esophageal reflux disease without esophagitis SNOMED: 964511349 (6) Asthma ICD Codes: J45.909 - Unspecified asthma, uncomplicated SNOMED: 618450673 (7) HTN (hypertension) ICD Codes: I10 - Essential (primary) hypertension SNOMED: 66943277 (8) Hepatitis B core antibody positive ICD Codes: R76.8 - Other specified abnormal immunological findings in serum SNOMED: 741311815 (9) DM2 (diabetes mellitus, type 2) ICD Codes: E11.9 - Type 2 diabetes mellitus without complications SNOMED: 94626934 (10) Likely obesity hypoventilation syndrome (11) lives at snf (12) Severe sepsis ICD Codes: A41.9 - Sepsis, unspecified organism; R65.20 - Severe sepsis without septic shock SNOMED: 90420601 (13) Elevated liver enzymes ICD Codes: R74.8 - Abnormal levels of other serum enzymes SNOMED: 704052298 (14) Acute toxic metabolic encephalopathy (15) Aspiration pnemonia vs HCAP (16) KASHIF (acute kidney injury) ICD Codes: N17.9 - Acute kidney failure, unspecified SNOMED: 82042188 (17) ATN (acute tubular necrosis) ICD Codes: N17.0 - Acute kidney failure with tubular necrosis SNOMED: 04352266 (18) Acute on chronic diastolic (congestive) heart failure ICD Codes: I50.33 - Acute on chronic diastolic (congestive) heart failure SNOMED: 14790300, 742176603 (19) Bacteremia ICD Codes: R78.81 - Bacteremia SNOMED: 3120648 (20) Septic shock ICD Codes: A41.9 - Sepsis, unspecified organism; R65.21 - Severe sepsis with septic shock SNOMED: 67460479 (21) Hypokalemia ICD Codes: E87.6 - Hypokalemia SNOMED: 12461550 (22) Multiple organ failure SNOMED: 22516566 (23) HCAP 2/2 MRSA (24) Elevated troponin I level ICD Codes: R74.8 - Abnormal levels of other serum enzymes SNOMED: 527509032 (25) Acute renal failure (ARF) ICD Codes: N17.9 - Acute kidney failure, unspecified SNOMED: 86164983 (26) Shock liver ICD Codes: K72.00 - Acute and subacute hepatic failure without coma SNOMED: 537160156 (27) Lactic acid acidosis ICD Codes: E87.2 - Acidosis SNOMED: 54182734 (28) Anemia ICD Codes: D64.9 - Anemia, unspecified SNOMED: 971109574 (29) Hypomagnesemia ICD Codes: E83.42 - Hypomagnesemia SNOMED: 326950002 Assessment/Plan Pulm/critical care consulted This was pt's 3rd intubation in less than 6 months. D/w pulm re likely plan for tracheostomy. D/w pt and son. Surgery consulted s/p tracheostomy on 12/10/17 Pt now weaned off vent. Doing well on trach collar Currently not requiring pressors. Goal MAP 65 and above Cardiology consulted given bradycardia. Likely 2/2 midodrine Hold midodrine s/p steroids ID consulted s/p empiric linezolid, cefepime and flagyl per ID (abx d/c'd 12/13/17) ID restarted abx: zosyn and zyvox since more sob/congested (12/18-12/20) Repeat blood cx show ngtd Nephrology consulted given KASHIF HD line placed and started on HD on 12/07/17. Last HD 12/11. HD catheter removed. Hold HD for now per renal as Cr normalizing Strict I/O's Trend CBC, CMP COMPENSATION ASSOCIATE eval ordered--soft diet as tolerated Pass-donny speaking valve trial Pain control, bowel regimen Supportive care PPI PT/OT Mg 0.9, K 3.4 today. Replete Mg 1g IVPB x 6 bags. Replete KCl 20meq PO x 1. Repeat BMP and Mg today. CM consulted for d/c plan to subacute facility vs LTACH such as [facility]. Repeat PT eval needed for evaluation of ability to stand. Likely DC Thursday or Thu pending bed availability DVT Prophylaxis: SCD, HSQ Code Status: Full Hospital Classification Declaration: Based on this initial evaluation, and depending on the patient's clinical course, I anticipate that this patient will require hospitalization for 1-2 days for acute respiratory failure, sepsis and close respiratory/hemodynamic monitoring. Disposition: Once the patient is stable to leave the hospital, I anticipate the patient will likely be discharged to the following environment: subacute SNF vs LTACH Plan outlined above discussed with patient/family, pulm/critical care, ID regarding mgmt and dispo. D/w pulm re weaning vent. D/w ID re monitor off abx. D /w renal re monitor off HD. D/w pulm re weaned off vent, trach collar, CPAP qHS Time of note may not reflect time of encounter. Subjective Date patient seen: December 21, 2017 Time patient seen: 12:33 Allergies: Coded Allergies: ASPARTAME (Verified Allergy, Unknown, 11/30/17) Headache Subjective - speaking - AF, HDS - Cr wnl. LFTs wnl. Mg and K low. - pending sub-acute SNF placement - repeat PT eval pending to evaluate if patient has ability to stand Objective Last 24 Hour Vital Signs Date Time Temp Pulse Resp B/P (MAP) Pulse Ox O2 Delivery O2 Flow Rate FiO2 12/21/17 07:38 98 Trach Collar 6.0 28 12/21/17 07:38 60 18 Trach Collar 6.0 28 12/21/17 07:38 Trach Collar 6.0 28 12/21/17 06:26 144/80 12/21/17 04:00 61 12/21/17 04:00 98.4 68 20 144/80 98 Trach Collar 6.0 28 98.4 12/21/17 04:00 6.0 28 12/21/17 00:53 Trach Collar 6.0 28 12/21/17 00:53 98 Trach Collar 6.0 28 12/21/17 00:00 6.0 28 12/21/17 00:00 97.2 86 20 142/88 98 Trach Collar 6.0 28 97.2 12/21/17 00:00 62 12/20/17 21:25 153/74 12/20/17 20:00 98.1 50 20 153/74 97 Trach Collar 28 98.1 12/20/17 20:00 58 12/20/17 20:00 6.0 28 12/20/17 19:00 98 Trach Collar 6.0 28 12/20/17 19:00 Trach Collar 6.0 28 12/20/17 19:00 64 18 Trach Collar 6.0 28 12/20/17 16:18 6.0 28 12/20/17 16:00 59 12/20/17 16:00 97.4 62 18 156/90 100 Trach Collar 28 97.4 12/20/17 15:35 139/75 12/20/17 13:32 99 Trach Collar 6.0 28 12/20/17 13:32 Trach Collar 6.0 28 Intake and Output 12/20/17 12/21/17 19:00 07:00 Intake Total 940 ml 240 ml Output Total 1200 ml 1500 ml Balance -260 ml -1260 ml Intake Oral 540 ml 240 ml IV Total 400 ml Output Urine Total 1200 ml 1500 ml # Bowel Movements 1 Laboratory Tests 12/20/17 13:20: Reticulocyte Count 0.6, Fibrinogen 475H, Iron Level 57, Total Iron Binding Capacity 224L, Percent Iron Saturation 25, Unsaturated Iron Binding 167, Ferritin 95 12/21/17 10:00: White Blood Count 7.2, Red Blood Count 4.00L, Hemoglobin 10.7L, Hematocrit 37.4 , Mean Corpuscular Volume 94, Mean Corpuscular Hemoglobin 26.8L, Mean Corpuscular Hemoglobin Concent 28.7L, Red Cell Distribution Width 15.0H, Platelet Count 247, Mean Platelet Volume 8.2, Neutrophils (%) (Auto) 33.8L, Lymphocytes (%) (Auto) 49.5H, Monocytes (%) (Auto) 11.3H, Eosinophils (%) (Auto ) 4.3H, Basophils (%) (Auto) 1.1, Sodium Level 141, Potassium Level 3.4L, Chloride Level 101, Carbon Dioxide Level 35H, Anion Gap 5, Blood Urea Nitrogen 9 , Creatinine 0.9, Estimat Glomerular Filtration Rate > 60, Glucose Level 160H, Uric Acid 5.6, Calcium Level 7.9L, Phosphorus Level 4.4, Magnesium Level 0.9*L, Total Bilirubin 0.4, Aspartate Amino Transf (AST/SGOT) 35, Alanine Aminotransferase (ALT/SGPT) 45, Alkaline Phosphatase 104, C-Reactive Protein, Quantitative 4.6H, Pro-B-Type Natriuretic Peptide 304H, Total Protein 6.9, Albumin 2.4L, Globulin 4.5, Albumin/Globulin Ratio 0.5L Height (Feet): 5 Height (Inches): 8.00 Weight (Pounds): 296 General Appearance: no apparent distress, alert EENT: PERRL/EOMI Neck: other - +tracheosteomy Cardiovascular: normal peripheral pulses, normal rate, regular rhythm Respiratory/Chest: chest wall non-tender, lungs clear, normal breath sounds Abdomen: normal bowel sounds, non tender, soft Neurologic: private branch exchange service adviser II-XII grossly normal, no motor/sensory deficits, alert, oriented x 3 Katty Lynn NP December 21, 2017 12:39
--- NOTE | 2017-12-21 14:31 | Pulmonology Progress Note ---
Assessment/Plan Problems: (1) Acute respiratory failure with hypoxia and hypercapnia (2) Acute renal failure (ARF) (3) Morbid obesity (4) DM2 (diabetes mellitus, type 2) (5) HTN (hypertension) Assessment/Plan Respiratory: monitor respiratory rate, adjust FIO2 Cardiac: continue to monitor HR/BP Renal: F/U I&O Infectious Disease: check cultures Gastrointestinal: continue feedings/current rate Endocrine: monitor blood sugar, check HgA1C Hematologic: transfuse if hgb<8.5 Neurologic: PRN Ativan, PRN Morphine, keep patient comfortable Prophylaxis: Protonix, Heparin Notes Reviewed: cardio, 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 with: nurses, telehealth case manager Subjective ROS Limited/Unobtainable: No Constitutional: Reports: no symptoms HEENT: Repors: no symptoms Allergies: Coded Allergies: ASPARTAME (Verified Allergy, Unknown, 11/30/17) Headache Objective Last 24 Hour Vital Signs Date Time Temp Pulse Resp B/P (MAP) Pulse Ox O2 Delivery O2 Flow Rate FiO2 12/21/17 13:02 144/80 12/21/17 12:55 Trach Collar 6.0 28 12/21/17 12:54 99 Trach Collar 6.0 28 12/21/17 07:38 98 Trach Collar 6.0 28 12/21/17 07:38 60 18 Trach Collar 6.0 28 12/21/17 07:38 Trach Collar 6.0 28 12/21/17 06:26 144/80 12/21/17 04:00 61 12/21/17 04:00 98.4 68 20 144/80 98 Trach Collar 6.0 28 98.4 12/21/17 04:00 6.0 28 12/21/17 00:53 Trach Collar 6.0 28 12/21/17 00:53 98 Trach Collar 6.0 28 12/21/17 00:00 6.0 28 12/21/17 00:00 97.2 86 20 142/88 98 Trach Collar 6.0 28 97.2 12/21/17 00:00 62 12/20/17 21:25 153/74 12/20/17 20:00 98.1 50 20 153/74 97 Trach Collar 28 98.1 12/20/17 20:00 58 12/20/17 20:00 6.0 28 12/20/17 19:00 98 Trach Collar 6.0 28 12/20/17 19:00 Trach Collar 6.0 28 12/20/17 19:00 64 18 Trach Collar 6.0 28 12/20/17 16:18 6.0 28 12/20/17 16:00 59 12/20/17 16:00 97.4 62 18 156/90 100 Trach Collar 28 97.4 12/20/17 15:35 139/75 Intake and Output 12/20/17 12/21/17 19:00 07:00 Intake Total 940 ml 240 ml Output Total 1200 ml 1500 ml Balance -260 ml -1260 ml Intake Oral 540 ml 240 ml IV Total 400 ml Output Urine Total 1200 ml 1500 ml # Bowel Movements 1 General Appearance: WD/WN HEENT: normocephalic, atraumatic Breasts: no masses Cardiovascular: normal peripheral pulses, normal rate Abdomen: normal bowel sounds, soft, non tender Genitourinary: normal external genitalia Extremities: no clubbing Neurologic/Psychiatric: editor publications II-XII grossly normal Lymphatic: no neck adenopathy Microbiology Date/Time Source Procedure Growth Status 12/18/17 18:48 Sputum Gram Stain - Final Resulted 12/18/17 18:48 Sputum Culture - Preliminary Staphylococcus Aureus Usual Respiratory Cassandra Resulted Laboratory Tests 12/21/17 10:00: White Blood Count 7.2, Red Blood Count 4.00L, Hemoglobin 10.7L, Hematocrit 37.4 , Mean Corpuscular Volume 94, Mean Corpuscular Hemoglobin 26.8L, Mean Corpuscular Hemoglobin Concent 28.7L, Red Cell Distribution Width 15.0H, Platelet Count 247, Mean Platelet Volume 8.2, Neutrophils (%) (Auto) 33.8L, Lymphocytes (%) (Auto) 49.5H, Monocytes (%) (Auto) 11.3H, Eosinophils (%) (Auto ) 4.3H, Basophils (%) (Auto) 1.1, Sodium Level 141, Potassium Level 3.4L, Chloride Level 101, Carbon Dioxide Level 35H, Anion Gap 5, Blood Urea Nitrogen 9 , Creatinine 0.9, Estimat Glomerular Filtration Rate > 60, Glucose Level 160H, Uric Acid 5.6, Calcium Level 7.9L, Phosphorus Level 4.4, Magnesium Level 0.9*L, Total Bilirubin 0.4, Aspartate Amino Transf (AST/SGOT) 35, Alanine Aminotransferase (ALT/SGPT) 45, Alkaline Phosphatase 104, C-Reactive Protein, Quantitative 4.6H, Pro-B-Type Natriuretic Peptide 304H, Total Protein 6.9, Albumin 2.4L, Globulin 4.5, Albumin/Globulin Ratio 0.5L Current Medications Medications (Trade) Dose Ordered Sig/Felipe Route PRN Reason Start Time Stop Time Status Last Admin Dose Admin Acetaminophen (Tylenol) 650 mg Q4H PRN NG Mild Pain 12/17/17 17:27 01/10/18 17:26 12/19/17 20:57 Acetaminophen (Tylenol) 650 mg Q4H PRN ORAL Fever (temp>100.5F) 12/17/17 17:27 01/03/18 17:26 Clotrimazole (Lotrimin) 1 applic THREE TIMES A DAY TOPIC 12/17/17 18:00 01/08/18 08:59 12/21/17 13:02 Dextrose (Dextrose 50%) 25 ml STAT PRN IV Hypoglycemia BS 60-69mg/dl 12/18/17 17:28 01/10/18 17:27 Dextrose (Dextrose 50%) 50 ml STAT PRN IV Hypoglycemia BS less than 60mg 12/18/17 17:28 01/10/18 17:27 Diphenhydramine HCl (Benadryl) 12.5 mg Q6H PRN IVP Itching 12/17/17 17:28 01/07/18 17:27 12/19/17 02:20 Famotidine (Pepcid) 20 mg BID ORAL 12/19/17 18:00 01/16/18 17:59 12/21/17 09:51 Heparin Sodium (Porcine) (Heparin 5000 units/ml) 5,000 units EVERY 12 HOURS SUBQ 12/19/17 21:00 01/03/18 20:59 12/21/17 09:54 Hydralazine HCl (Apresoline) 10 mg Q4H PRN IV sbp> 160 mmHg 12/17/17 17:29 01/08/18 17:28 12/18/17 22:45 Hydralazine HCl (Apresoline) 50 mg EVERY 8 HOURS ORAL 12/19/17 15:00 01/08/18 14:59 12/21/17 13:02 Insulin Aspart (NovoLOG) AC+HS SUBQ 12/17/17 21:00 01/04/18 12:29 12/21/17 11:30 Magnesium Sulfate 100 ml @ 100 mls/hr Q1H IVPB 12/21/17 13:00 12/21/17 18:59 12/21/17 13:02 Nitroglycerin (Ntg) 0.4 mg Q5M PRN SL Prn Chest Pain 12/17/17 17:29 01/03/18 17:28 Ondansetron HCl (Zofran) 4 mg Q6H PRN IVP Nausea & Vomiting 12/17/17 17:30 01/03/18 17:29 Yariel Malone MD December 21, 2017 14:30
--- NOTE | 2017-12-21 14:39 | Cardiac Electrophysiology PN ---
Assessment/Plan Assessment/Plan 1. Sinus bradycardia. No further significant savannah. HR in mid to high 50s. Asymptomatic. Pacer not indicated 2. Respiratory failure. S/P tracheostomy 3. Hypertension, on hydralazine 50 q 8hr. 4. Morbid obesity. 5. History of supraventricular tachycardia. No recurrence. Keep off AAs. 6. Elevated liver enzymes. 7. Renal failure. 8. DC to [facility] pending 9. Hypomagnesemia 0.9 , Replaced DW RN Subjective Subjective Alert in NAD with no CP or SOB. HR in mid to high 50s in SR Objective Last 24 Hour Vital Signs Date Time Temp Pulse Resp B/P (MAP) Pulse Ox O2 Delivery O2 Flow Rate FiO2 12/21/17 13:02 144/80 12/21/17 12:55 Trach Collar 6.0 28 12/21/17 12:54 99 Trach Collar 6.0 28 12/21/17 07:38 98 Trach Collar 6.0 28 12/21/17 07:38 60 18 Trach Collar 6.0 28 12/21/17 07:38 Trach Collar 6.0 28 12/21/17 06:26 144/80 12/21/17 04:00 61 12/21/17 04:00 98.4 68 20 144/80 98 Trach Collar 6.0 28 98.4 12/21/17 04:00 6.0 28 12/21/17 00:53 Trach Collar 6.0 28 12/21/17 00:53 98 Trach Collar 6.0 28 12/21/17 00:00 6.0 28 12/21/17 00:00 97.2 86 20 142/88 98 Trach Collar 6.0 28 97.2 12/21/17 00:00 62 12/20/17 21:25 153/74 12/20/17 20:00 98.1 50 20 153/74 97 Trach Collar 28 98.1 12/20/17 20:00 58 12/20/17 20:00 6.0 28 12/20/17 19:00 98 Trach Collar 6.0 28 12/20/17 19:00 Trach Collar 6.0 28 12/20/17 19:00 64 18 Trach Collar 6.0 28 12/20/17 16:18 6.0 28 12/20/17 16:00 59 12/20/17 16:00 97.4 62 18 156/90 100 Trach Collar 28 97.4 12/20/17 15:35 139/75 Intake and Output 12/20/17 12/21/17 19:00 07:00 Intake Total 940 ml 240 ml Output Total 1200 ml 1500 ml Balance -260 ml -1260 ml Intake Oral 540 ml 240 ml IV Total 400 ml Output Urine Total 1200 ml 1500 ml # Bowel Movements 1 Laboratory Tests Test 12/21/17 10:00 White Blood Count 7.2 K/UL (4.8-10.8) Red Blood Count 4.00 M/UL (4.20-5.40) L Hemoglobin 10.7 G/DL (12.0-16.0) L Hematocrit 37.4 % (37.0-47.0) Mean Corpuscular Volume 94 FL (80-99) Mean Corpuscular Hemoglobin 26.8 PG (27.0-31.0) L Mean Corpuscular Hemoglobin Concent 28.7 G/DL (32.0-36.0) L Red Cell Distribution Width 15.0 % (11.6-14.8) H Platelet Count 247 K/UL (150-450) Mean Platelet Volume 8.2 FL (6.5-10.1) Neutrophils (%) (Auto) 33.8 % (45.0-75.0) L Lymphocytes (%) (Auto) 49.5 % (20.0-45.0) H Monocytes (%) (Auto) 11.3 % (1.0-10.0) H Eosinophils (%) (Auto) 4.3 % (0.0-3.0) H Basophils (%) (Auto) 1.1 % (0.0-2.0) Sodium Level 141 MMOL/L (136-145) Potassium Level 3.4 MMOL/L (3.5-5.1) L Chloride Level 101 MMOL/L (98-107) Carbon Dioxide Level 35 MMOL/L (21-32) H Anion Gap 5 mmol/L (5-15) Blood Urea Nitrogen 9 mg/dL (7-18) Creatinine 0.9 MG/DL (0.55-1.30) Estimat Glomerular Filtration Rate > 60 mL/min (>60) Glucose Level 160 MG/DL (74-106) H Uric Acid 5.6 MG/DL (2.6-7.2) Calcium Level 7.9 MG/DL (8.5-10.1) L Phosphorus Level 4.4 MG/DL (2.5-4.9) Magnesium Level 0.9 MG/DL (1.8-2.4) *L Total Bilirubin 0.4 MG/DL (0.2-1.0) Aspartate Amino Transf (AST/SGOT) 35 U/L (15-37) Alanine Aminotransferase (ALT/SGPT) 45 U/L (12-78) Alkaline Phosphatase 104 U/L (46-116) C-Reactive Protein, Quantitative 4.6 mg/dL (0.00-0.90) H Pro-B-Type Natriuretic Peptide 304 pg/mL (0-125) H Total Protein 6.9 G/DL (6.4-8.2) Albumin 2.4 G/DL (3.4-5.0) L Globulin 4.5 g/dL Albumin/Globulin Ratio 0.5 (1.0-2.7) L Microbiology Date/Time Source Procedure Growth Status 12/18/17 18:48 Sputum Gram Stain - Final Resulted 12/18/17 18:48 Sputum Culture - Preliminary Staphylococcus Aureus Usual Respiratory Cassandra Resulted Objective HEAD AND NECK: No JVD. S/P Tracheostomy LUNGS: Coarse rhonchi. CARDIOVASCULAR: Bradycardic S1 and S2 . ABDOMEN: Morbidly obese. EXTREMITIES: 1+ pitting edema. Melvin Bejarano MD December 21, 2017 14:39
--- NOTE | 2017-12-21 15:27 | Consultation ---
History of Present Illness General Date patient seen: December 20, 2017 Chief Complaint: Altered Level of Consciousness Reason for Consultation: trach Present Illness HPI 57-year-old female with past medical history significant for GERD, diabetes mellitus, hypertension, who presents to the hospital with shock, respiratory failure, required intubation, and altered for the past several days, required intubation, on BiPAP Allergies: Coded Allergies: ASPARTAME (Verified Allergy, Unknown, 11/30/17) Headache Medication History Scheduled Allopurinol* (Allopurinol*), 300 MG NG DAILY Allopurinol* (Allopurinol*), 100 MG ORAL DAILY, (Reported) Amoxicillin/Potassium Clav 875-125* (Augmentin 875-125 Tablet*), 1 TAB ORAL TWICE A DAY Aspirin* (Aspirin*), 81 MG GT DAILY Atorvastatin Calcium* (Lipitor*), 20 MG GT BEDTIME Clotrimazole* (Lotrimin*), 1 APPLIC TOPIC THREE TIMES A DAY Cyanocobalamin (Vitamin B-12) (Vitamin B12), 2,500 MCG PO DAILY, (Reported) Digoxin* (Lanoxin*), 0.25 MG ORAL DAILY Docusate Sodium* (Docusil*), 100 MG ORAL TWICE A DAY, (Reported) Ferrous Sulfate (Feosol), 325 MG ORAL THREE TIMES A DAY Ferrous Sulfate* (Ferrous Sulfate*), 325 MG ORAL TWICE A DAY, (Reported) Fluticasone Propionate (Flonase Allergy Relief), 9.9 ML NS BID, (Reported) Furosemide* (Lasix*), 40 MG ORAL DAILY Furosemide* (Lasix*), 40 MG ORAL DAILY, (Reported) Gabapentin* (Gabapentin*), 600 MG ORAL QHS, (Reported) Glipizide (Glipizide Xl), 10 MG ORAL DAILY, (Reported) Guaifenesin (Mucinex), 1,200 MG ORAL TWICE A DAY Insulin Glargine (Lantus), 21 SUBQ BID, (Reported) Ipratropium/Albuterol Sulfate (DuoNeb 0.5-3(2.5)mg/3ml), 3 ML HHN Q6HR Lactobacillus Acidophilus (Acidophilus), 1 EACH PO BID, (Reported) Metoprolol Succinate* (Metoprolol Succinate*), 25 MG ORAL DAILY Pantoprazole* (Protonix*), 40 MG ORAL DAILY, (Reported) Vancomycin Hcl/D5w (Vancomycin-D5w 1 G/250 Ml), 250 MG IVPB Q12HR Scheduled PRN Acetaminophen* (Tylenol Extra Strength*), 500 MG ORAL Q12HR PRN for Mild Pain/ Temp > 100.5, (Reported) Albuterol Sulfate* (Albuterol Sulfate Hhn*), 3 ML INH Q4H PRN for Shortness of Breath, (Reported) Azelastine Hcl (Azelastine Hcl), 6 ML NASAL EVERY 12 HOURS PRN for ALLERGIC RHINITIS, (Reported) Bismuth Subsalicylate (Pepto-Bismol), 30 ML ORAL Q6H PRN Diphenoxylate Hcl/Atropine (Lomotil Tablet), 2 TAB ORAL for Diarrhea, (Reported) Guaifenesin* (Guaifenesin), 200 MG ORAL Q4H PRN Ipratropium/Albuterol Sulfate (DuoNeb 0.5-3(2.5)mg/3ml), 3 ML HHN Q4HR PRN Prochlorperazine (Compazine*), 10 MG ORAL Q8HR PRN for Nausea & Vomiting, ( Reported) Simethicone* (Simethicone*), 80 MG ORAL Q6H PRN [[facility] pharmacy to dose], 1 EA MISC DAILYPRN PRN Miscellaneous Medications Capsaicin (Capsaicin), 42.5 GM TP, (Reported) Guar Gum (Nutrisource Fiber), 1 EACH PO, (Reported) Insulin Regular, Human (Humulin R), 0 SUBQ, (Reported) Loratadine (Loratadine), 10 MG PO, (Reported) Patient History Limited by: medical condition History Provided By: Patient, Medical Record, PMD Healthcare decision maker Resuscitation status Full Code Advanced Directive on File Past Medical/Surgical History Past Medical/Surgical History: (1) UTI (urinary tract infection) (2) Morbid obesity (3) Acute respiratory failure with hypoxia and hypercapnia (4) Fatty liver (5) GERD (gastroesophageal reflux disease) (6) Asthma (7) HTN (hypertension) (8) Chronic diastolic (congestive) heart failure (9) Hepatitis B core antibody positive (10) DM2 (diabetes mellitus, type 2) (11) H/O supraventricular tachycardia (12) Likely obesity hypoventilation syndrome (13) lives at snf (14) Severe sepsis (15) Elevated liver enzymes (16) Acute toxic metabolic encephalopathy (17) Hypertension (18) Aspiration pnemonia vs HCAP (19) KASHIF (acute kidney injury) (20) ATN (acute tubular necrosis) (21) Acute on chronic diastolic (congestive) heart failure (22) Acute encephalopathy (23) Acute respiratory failure (24) Bacteremia (25) Septic shock (26) Hypokalemia (27) Hypokalemia (28) Hyperkalemia (29) Hypomagnesemia (30) Multiple organ failure (31) Hematuria (32) Anemia (33) SVT (supraventricular tachycardia) (34) Vaginal bleeding (35) Abdominal pain (36) Lactic acid acidosis (37) Altered level of consciousness (38) Transaminitis (39) Shock liver (40) Acute renal failure (ARF) (41) Elevated troponin I level (42) HCAP 2/2 MRSA Review of Systems Psychiatric: Reports: anxiety, depressed feelings, emotional problems Physical Exam General Appearance: no apparent distress, alert Neurologic: oriented x 3, responsive, depressed affect Last 24 Hour Vital Signs Date Time Temp Pulse Resp B/P (MAP) Pulse Ox O2 Delivery O2 Flow Rate FiO2 12/21/17 13:02 144/80 12/21/17 12:55 Trach Collar 6.0 28 12/21/17 12:54 99 Trach Collar 6.0 28 12/21/17 07:38 98 Trach Collar 6.0 28 12/21/17 07:38 60 18 Trach Collar 6.0 28 12/21/17 07:38 Trach Collar 6.0 28 12/21/17 06:26 144/80 12/21/17 04:00 61 12/21/17 04:00 98.4 68 20 144/80 98 Trach Collar 6.0 28 98.4 12/21/17 04:00 6.0 28 12/21/17 00:53 Trach Collar 6.0 28 12/21/17 00:53 98 Trach Collar 6.0 28 12/21/17 00:00 6.0 28 12/21/17 00:00 97.2 86 20 142/88 98 Trach Collar 6.0 28 97.2 12/21/17 00:00 62 12/20/17 21:25 153/74 5/13/18 20:00 98.1 50 20 153/74 97 Trach Collar 28 98.1 12/20/17 20:00 58 12/20/17 20:00 6.0 28 12/20/17 19:00 98 Trach Collar 6.0 28 12/20/17 19:00 Trach Collar 6.0 28 12/20/17 19:00 64 18 Trach Collar 6.0 28 12/20/17 16:18 6.0 28 12/20/17 16:00 59 12/20/17 16:00 97.4 62 18 156/90 100 Trach Collar 28 97.4 12/20/17 15:35 139/75 Intake and Output 12/20/17 12/21/17 19:00 07:00 Intake Total 940 ml 240 ml Output Total 1200 ml 1500 ml Balance -260 ml -1260 ml Intake Oral 540 ml 240 ml IV Total 400 ml Output Urine Total 1200 ml 1500 ml # Bowel Movements 1 Laboratory Tests Test 12/21/17 10:00 White Blood Count 7.2 K/UL (4.8-10.8) Red Blood Count 4.00 M/UL (4.20-5.40) L Hemoglobin 10.7 G/DL (12.0-16.0) L Hematocrit 37.4 % (37.0-47.0) Mean Corpuscular Volume 94 FL (80-99) Mean Corpuscular Hemoglobin 26.8 PG (27.0-31.0) L Mean Corpuscular Hemoglobin Concent 28.7 G/DL (32.0-36.0) L Red Cell Distribution Width 15.0 % (11.6-14.8) H Platelet Count 247 K/UL (150-450) Mean Platelet Volume 8.2 FL (6.5-10.1) Neutrophils (%) (Auto) 33.8 % (45.0-75.0) L Lymphocytes (%) (Auto) 49.5 % (20.0-45.0) H Monocytes (%) (Auto) 11.3 % (1.0-10.0) H Eosinophils (%) (Auto) 4.3 % (0.0-3.0) H Basophils (%) (Auto) 1.1 % (0.0-2.0) Sodium Level 141 MMOL/L (136-145) Potassium Level 3.4 MMOL/L (3.5-5.1) L Chloride Level 101 MMOL/L (98-107) Carbon Dioxide Level 35 MMOL/L (21-32) H Anion Gap 5 mmol/L (5-15) Blood Urea Nitrogen 9 mg/dL (7-18) Creatinine 0.9 MG/DL (0.55-1.30) Estimat Glomerular Filtration Rate > 60 mL/min (>60) Glucose Level 160 MG/DL (74-106) H Uric Acid 5.6 MG/DL (2.6-7.2) Calcium Level 7.9 MG/DL (8.5-10.1) L Phosphorus Level 4.4 MG/DL (2.5-4.9) Magnesium Level 0.9 MG/DL (1.8-2.4) *L Total Bilirubin 0.4 MG/DL (0.2-1.0) Aspartate Amino Transf (AST/SGOT) 35 U/L (15-37) Alanine Aminotransferase (ALT/SGPT) 45 U/L (12-78) Alkaline Phosphatase 104 U/L (46-116) C-Reactive Protein, Quantitative 4.6 mg/dL (0.00-0.90) H Pro-B-Type Natriuretic Peptide 304 pg/mL (0-125) H Total Protein 6.9 G/DL (6.4-8.2) Albumin 2.4 G/DL (3.4-5.0) L Globulin 4.5 g/dL Albumin/Globulin Ratio 0.5 (1.0-2.7) L Height (Feet): 5 Height (Inches): 8.00 Weight (Pounds): 296 Medications Current Medications Medications (Trade) Dose Ordered Sig/Felipe Route PRN Reason Start Time Stop Time Status Last Admin Dose Admin Acetaminophen (Tylenol) 650 mg Q4H PRN NG Mild Pain 12/17/17 17:27 01/10/18 17:26 12/19/17 20:57 Acetaminophen (Tylenol) 650 mg Q4H PRN ORAL Fever (temp>100.5F) 12/17/17 17:27 01/03/18 17:26 Clotrimazole (Lotrimin) 1 applic THREE TIMES A DAY TOPIC 12/17/17 18:00 01/08/18 08:59 12/21/17 13:02 Dextrose (Dextrose 50%) 25 ml STAT PRN IV Hypoglycemia BS 60-69mg/dl 12/18/17 17:28 01/10/18 17:27 Dextrose (Dextrose 50%) 50 ml STAT PRN IV Hypoglycemia BS less than 60mg 12/18/17 17:28 01/10/18 17:27 Diphenhydramine HCl (Benadryl) 12.5 mg Q6H PRN IVP Itching 12/17/17 17:28 01/07/18 17:27 12/19/17 02:20 Famotidine (Pepcid) 20 mg BID ORAL 12/19/17 18:00 01/16/18 17:59 12/21/17 09:51 Heparin Sodium (Porcine) (Heparin 5000 units/ml) 5,000 units EVERY 12 HOURS SUBQ 12/19/17 21:00 01/03/18 20:59 12/21/17 09:54 Hydralazine HCl (Apresoline) 10 mg Q4H PRN IV sbp> 160 mmHg 12/17/17 17:29 01/08/18 17:28 12/18/17 22:45 Hydralazine HCl (Apresoline) 50 mg EVERY 8 HOURS ORAL 12/19/17 15:00 01/08/18 14:59 12/21/17 13:02 Insulin Aspart (NovoLOG) AC+HS SUBQ 12/17/17 21:00 01/04/18 12:29 12/21/17 11:30 Magnesium Sulfate 100 ml @ 100 mls/hr Q1H IVPB 12/21/17 13:00 12/21/17 18:59 12/21/17 13:02 Nitroglycerin (Ntg) 0.4 mg Q5M PRN SL Prn Chest Pain 12/17/17 17:29 01/03/18 17:28 Ondansetron HCl (Zofran) 4 mg Q6H PRN IVP Nausea & Vomiting 12/17/17 17:30 01/03/18 17:29 Assessment/Plan Status: stable Assessment/Plan MDD Anxiety Insomnia Remeron 15mg qhs provided ani/Candace Garcia M.D. December 21, 2017 15:27
[2017-12-21 18:30] LABS: ANION GAP 5 mmol/L (5-15); BLOOD UREA NITROGEN 8 mg/dL (7-18); CALCIUM 7.8 MG/DL (8.5-10.1); CARBON DIOXIDE 35 MMOL/L (21-32); CHLORIDE 100 MMOL/L (98-107); CREATININE 0.9 MG/DL (0.55-1.30); POTASSIUM 3.4 MMOL/L (3.5-5.1); SODIUM 140 MMOL/L (136-145)
[2017-12-22] VITALS: BP 124/64
[2017-12-22 04:00] VITALS: BP 122/62
[2017-12-22] MEDS: HydrALAZINE 50mg tab ORAL SCH ×2 (06:46→13:24)
[2017-12-22] MEDS: NovoLOG Insulin Flexpen SUBQ SCH ×3 (06:49→16:30)
[2017-12-22 08:00] VITALS: BP 124/61
[2017-12-22] MEDS: Heparin 5000 units/ml inj SUBQ SCH (08:16)
--- NOTE | 2017-12-22 08:31 | General Progress Note ---
Assessment/Plan Assessment/Plan #. Anemia due to underlying chronic disease. Currently has improved, less likely bleed related --> Continue to closely monitor. Anemia workup has been reviewed. --> Blood transfusion not required unless symptomatic or hgb <7 --> Hgb remains stable. Does not need transfusion at this time, ferritin of 95 , tibc 227 --> Currently no evidence of bleed noted #. Coagulopathy, potentially secondary to liver problem, liver disease. --> Currently off of anticoagulation, currently inr has improved --> Administer Vit K in case patient bleeds, or inr increases or if if in need of urgent procedure #. Leukocytosis, potentially secondary to infection. --> Resolved at this time. --> S/P antibiotic treatment. #. Transaminitis as well as elevated --> Continue to closely monitor for improvement. #. Acute tubular necrosis with elevated creatinine. Continue to closely monitor. #. Obesity hypoventilation syndrome. --> Morbid obesity. #. Respiratory failure, status post intubation. --> s/p tracheostomy on 12/10, On Trach collar, 3rd intubation in 6 mo #. Acute kidney injury. The patient's creatinine within normal limits on admission, potentially secondary to shock. #. Bradycardia. --> Improved. Subjective Constitutional: Reports: no symptoms HEENT: Reports: no symptoms Cardiovascular: Reports: no symptoms Respiratory: Reports: no symptoms Genitourinary: Reports: no symptoms Neurologic/Psychiatric: Reports: no symptoms Endocrine: Reports: no symptoms Hematologic/Lymphatic: Reports: anemia Allergies: Coded Allergies: ASPARTAME (Verified Allergy, Unknown, 11/30/17) Headache Subjective No fever. ++trach collar. H/H stable. remains lethargic Objective Last 24 Hour Vital Signs Date Time Temp Pulse Resp B/P (MAP) Pulse Ox O2 Delivery O2 Flow Rate FiO2 12/22/17 07:44 T-piece 6.0 12/22/17 07:43 74 20 T-piece 6.0 28 12/22/17 07:43 97 T-piece 6.0 28 12/22/17 06:46 128/62 12/22/17 04:00 6.0 28 12/22/17 04:00 98.1 71 20 122/62 99 Trach Collar 6.0 28 98.1 12/22/17 03:41 66 12/22/17 01:53 95 Trach Collar 6.0 28 12/22/17 01:53 Trach Collar 6.0 28 12/22/17 00:00 98.1 61 20 124/64 97 Trach Collar 6.0 28 98.1 12/21/17 23:35 70 12/21/17 22:27 125/60 12/21/17 22:00 71 20 125/60 98 Trach Collar 6.0 28 12/21/17 20:00 98.7 72 20 116/60 97 Trach Collar 6.0 28 98.7 12/21/17 20:00 6.0 28 12/21/17 19:46 86 20 Trach Collar 6.0 39 12/21/17 19:46 96 Trach Collar 6.0 28 12/21/17 19:46 Trach Collar 6.0 28 12/21/17 19:27 78 12/21/17 16:00 6.0 28 12/21/17 16:00 97.9 71 18 120/69 98 Trach Collar 6.0 28 97.9 12/21/17 16:00 68 12/21/17 13:02 144/80 12/21/17 12:55 Trach Collar 6.0 28 12/21/17 12:54 99 Trach Collar 6.0 28 12/21/17 12:00 80 12/21/17 12:00 97.8 68 18 146/75 98 Trach Collar 6.0 28 97.8 12/21/17 12:00 6.0 28 Intake and Output 12/21/17 12/22/17 19:00 07:00 Intake Total 610 ml Output Total 1000 ml 1000 ml Balance -390 ml -1000 ml Intake Oral 610 ml Output Urine Total 1000 ml 1000 ml # Bowel Movements 1 Laboratory Tests 12/21/17 10:00: White Blood Count 7.2, Red Blood Count 4.00L, Hemoglobin 10.7L, Hematocrit 37.4 , Mean Corpuscular Volume 94, Mean Corpuscular Hemoglobin 26.8L, Mean Corpuscular Hemoglobin Concent 28.7L, Red Cell Distribution Width 15.0H, Platelet Count 247, Mean Platelet Volume 8.2, Neutrophils (%) (Auto) 33.8L, Lymphocytes (%) (Auto) 49.5H, Monocytes (%) (Auto) 11.3H, Eosinophils (%) (Auto ) 4.3H, Basophils (%) (Auto) 1.1, Sodium Level 141, Potassium Level 3.4L, Chloride Level 101, Carbon Dioxide Level 35H, Anion Gap 5, Blood Urea Nitrogen 9 , Creatinine 0.9, Estimat Glomerular Filtration Rate > 60, Glucose Level 160H, Uric Acid 5.6, Calcium Level 7.9L, Phosphorus Level 4.4, Magnesium Level 0.9*L, Total Bilirubin 0.4, Aspartate Amino Transf (AST/SGOT) 35, Alanine Aminotransferase (ALT/SGPT) 45, Alkaline Phosphatase 104, C-Reactive Protein, Quantitative 4.6H, Pro-B-Type Natriuretic Peptide 304H, Total Protein 6.9, Albumin 2.4L, Globulin 4.5, Albumin/Globulin Ratio 0.5L 12/21/17 18:00: Sodium Level 140, Potassium Level 3.4L, Chloride Level 100, Carbon Dioxide Level 35H, Anion Gap 5, Blood Urea Nitrogen 8, Creatinine 0.9, Estimat Glomerular Filtration Rate > 60, Glucose Level 174H, Calcium Level 7.8L, Magnesium Level 1.1L 12/22/17 08:05: White Blood Count [Pending], Red Blood Count [Pending], Hemoglobin [Pending], Hematocrit [Pending], Mean Corpuscular Volume [Pending], Mean Corpuscular Hemoglobin [Pending], Mean Corpuscular Hemoglobin Concent [Pending], Red Cell Distribution Width [Pending], Platelet Count [Pending], Mean Platelet Volume [ Pending], Neutrophils (%) (Auto) [Pending], Lymphocytes (%) (Auto) [Pending], Monocytes (%) (Auto) [Pending], Eosinophils (%) (Auto) [Pending], Basophils (%) (Auto) [Pending], Sodium Level [Pending], Potassium Level [Pending], Chloride Level [Pending], Carbon Dioxide Level [Pending], Blood Urea Nitrogen [Pending], Creatinine [Pending], Estimat Glomerular Filtration Rate [Pending], Glucose Level [Pending], Calcium Level [Pending], Magnesium Level [Pending] Height (Feet): 5 Height (Inches): 8.00 Weight (Pounds): 283 General Appearance: no apparent distress EENT: normal ENT inspection Neck: supple Cardiovascular: regular rhythm Respiratory/Chest: no respiratory distress Abdomen: no organomegaly Extremities: non-tender Edema: no edema noted Leg (L), no edema noted Leg (R) Jem Palmer MD December 22, 2017 08:31
[2017-12-22 08:45] LABS: BASOPHILS % (AUTO) 1.1 % (0.0-2.0); EOSINOPHILS % (AUTO) 3.4 % (0.0-3.0); HEMOGLOBIN 10.7 G/DL (12.0-16.0); LYMPHOCYTES % (AUTO) 43.1 % (20.0-45.0); MEAN CORPUSCULAR VOLUME 94 FL (80-99); MONOCYTES % (AUTO) 13.4 % (1.0-10.0); PLATELET COUNT 229 K/UL (150-450); RED BLOOD COUNT 3.92 M/UL (4.20-5.40); RED CELL DISTRIBUTION WIDTH 15.4 % (11.6-14.8); WHITE BLOOD COUNT 6.9 K/UL (4.8-10.8)
[2017-12-22 09:34] LABS: ANION GAP 5 mmol/L (5-15); BLOOD UREA NITROGEN 7 mg/dL (7-18); CARBON DIOXIDE 35 MMOL/L (21-32); CHLORIDE 102 MMOL/L (98-107); CREATININE 0.9 MG/DL (0.55-1.30); POTASSIUM 3.3 MMOL/L (3.5-5.1); SODIUM 142 MMOL/L (136-145)
--- NOTE | 2017-12-22 11:15 | Pulmonology Progress Note ---
Assessment/Plan Problems: (1) Acute respiratory failure with hypoxia and hypercapnia (2) Acute renal failure (ARF) (3) Morbid obesity (4) DM2 (diabetes mellitus, type 2) (5) HTN (hypertension) Assessment/Plan Respiratory: monitor respiratory rate, adjust FIO2, CXR Cardiac: continue to monitor HR/BP Renal: F/U I&O Infectious Disease: check cultures Endocrine: monitor blood sugar Hematologic: monitor H/H, transfuse if hgb<8.5 Neurologic: PRN Ativan, keep patient comfortable Affect: PRN ativan Prophylaxis: Protonix Notes Reviewed: cardio Discussed with: nurses, consultants, case preparer and liner Subjective ROS Limited/Unobtainable: No Constitutional: Reports: no symptoms HEENT: Repors: no symptoms Respiratory: Reports: no symptoms Cardiovascular: Reports: no symptoms Allergies: Coded Allergies: ASPARTAME (Verified Allergy, Unknown, 11/30/17) Headache Objective Last 24 Hour Vital Signs Date Time Temp Pulse Resp B/P (MAP) Pulse Ox O2 Delivery O2 Flow Rate FiO2 12/22/17 08:00 98.6 75 20 124/61 96 Trach Collar 6.0 28 98.6 12/22/17 08:00 6.0 28 12/22/17 07:44 T-piece 6.0 28 12/22/17 07:43 74 20 T-piece 6.0 28 12/22/17 07:43 97 T-piece 6.0 28 12/22/17 06:46 128/62 12/22/17 04:00 6.0 28 12/22/17 04:00 98.1 71 20 122/62 99 Trach Collar 6.0 28 98.1 12/22/17 03:41 66 12/22/17 01:53 95 Trach Collar 6.0 28 12/22/17 01:53 Trach Collar 6.0 28 12/22/17 00:00 98.1 61 20 124/64 97 Trach Collar 6.0 28 98.1 12/21/17 23:35 70 12/21/17 22:27 125/60 12/21/17 22:00 71 20 125/60 98 Trach Collar 6.0 28 12/21/17 20:00 98.7 72 20 116/60 97 Trach Collar 6.0 28 98.7 12/21/17 20:00 6.0 28 12/21/17 19:46 86 20 Trach Collar 6.0 39 12/21/17 19:46 96 Trach Collar 6.0 28 12/21/17 19:46 Trach Collar 6.0 28 12/21/17 19:27 78 12/21/17 16:00 6.0 28 12/21/17 16:00 97.9 71 18 120/69 98 Trach Collar 6.0 28 97.9 12/21/17 16:00 68 12/21/17 13:02 144/80 12/21/17 12:55 Trach Collar 6.0 28 12/21/17 12:54 99 Trach Collar 6.0 28 12/21/17 12:00 80 12/21/17 12:00 97.8 68 18 146/75 98 Trach Collar 6.0 28 97.8 12/21/17 12:00 6.0 28 Intake and Output 12/21/17 12/22/17 19:00 07:00 Intake Total 610 ml Output Total 1000 ml 1000 ml Balance -390 ml -1000 ml Intake Oral 610 ml Output Urine Total 1000 ml 1000 ml # Bowel Movements 1 General Appearance: WD/WN HEENT: normocephalic, atraumatic Respiratory/Chest: chest wall non-tender, crackles/rales Breasts: no masses Cardiovascular: normal peripheral pulses, normal rate Abdomen: normal bowel sounds, soft, non tender Genitourinary: normal external genitalia Extremities: no cyanosis Neurologic/Psychiatric: vp customer service II-XII grossly normal Laboratory Tests 12/21/17 18:00: Sodium Level 140, Potassium Level 3.4L, Chloride Level 100, Carbon Dioxide Level 35H, Anion Gap 5, Blood Urea Nitrogen 8, Creatinine 0.9, Estimat Glomerular Filtration Rate > 60, Glucose Level 174H, Calcium Level 7.8L, Magnesium Level 1.1L 12/22/17 08:05: Sodium Level 142, Potassium Level 3.3L, Chloride Level 102, Carbon Dioxide Level 35H, Anion Gap 5, Blood Urea Nitrogen 7, Creatinine 0.9, Estimat Glomerular Filtration Rate > 60, Glucose Level 174H, Calcium Level 8.0L, Magnesium Level 1.5L, White Blood Count 6.9, Red Blood Count 3.92L, Hemoglobin 10.7L, Hematocrit 37.0, Mean Corpuscular Volume 94, Mean Corpuscular Hemoglobin 27.3, Mean Corpuscular Hemoglobin Concent 28.9L, Red Cell Distribution Width 15.4H, Platelet Count 229, Mean Platelet Volume 8.9, Neutrophils (%) (Auto) 39.0L, Lymphocytes (%) (Auto) 43.1, Monocytes (%) (Auto) 13.4H, Eosinophils (%) (Auto) 3.4H, Basophils (%) (Auto) 1.1 Current Medications Medications (Trade) Dose Ordered Sig/Felipe Route PRN Reason Start Time Stop Time Status Last Admin Dose Admin Acetaminophen (Tylenol) 650 mg Q4H PRN NG Mild Pain 12/17/17 17:27 01/10/18 17:26 12/19/17 20:57 Acetaminophen (Tylenol) 650 mg Q4H PRN ORAL Fever (temp>100.5F) 12/17/17 17:27 01/03/18 17:26 Clotrimazole (Lotrimin) 1 applic THREE TIMES A DAY TOPIC 12/17/17 18:00 01/08/18 08:59 12/22/17 08:16 Dextrose (Dextrose 50%) 25 ml STAT PRN IV Hypoglycemia BS 60-69mg/dl 12/18/17 17:28 01/10/18 17:27 Dextrose (Dextrose 50%) 50 ml STAT PRN IV Hypoglycemia BS less than 60mg 12/18/17 17:28 01/10/18 17:27 Diphenhydramine HCl (Benadryl) 12.5 mg Q6H PRN IVP Itching 12/17/17 17:28 01/07/18 17:27 12/19/17 02:20 Famotidine (Pepcid) 20 mg BID ORAL 12/19/17 18:00 01/16/18 17:59 12/22/17 08:14 Heparin Sodium (Porcine) (Heparin 5000 units/ml) 5,000 units EVERY 12 HOURS SUBQ 12/19/17 21:00 01/03/18 20:59 12/22/17 08:16 Hydralazine HCl (Apresoline) 10 mg Q4H PRN IV sbp> 160 mmHg 12/17/17 17:29 01/08/18 17:28 12/18/17 22:45 Hydralazine HCl (Apresoline) 50 mg EVERY 8 HOURS ORAL 12/19/17 15:00 01/08/18 14:59 12/22/17 06:46 Insulin Aspart (NovoLOG) AC+HS SUBQ 12/17/17 21:00 01/04/18 12:29 12/22/17 06:49 Mirtazapine (Remeron) 15 mg BEDTIME ORAL 12/21/17 21:00 01/20/18 20:59 12/21/17 20:53 Nitroglycerin (Ntg) 0.4 mg Q5M PRN SL Prn Chest Pain 12/17/17 17:29 01/03/18 17:28 Ondansetron HCl (Zofran) 4 mg Q6H PRN IVP Nausea & Vomiting 12/17/17 17:30 01/03/18 17:29 Yariel Malone MD December 22, 2017 11:15
[2017-12-22 12:00] VITALS: BP 132/66
[2017-12-22] MEDS ORDERED: Potassium Chloride 40 MEQ in Sodium Chloride 500ML 550 ML IVPB ONE (12:30)
--- NOTE | 2017-12-22 13:58 | General Progress Note ---
Assessment/Plan Status: stable, progressing Assessment/Plan MDD Anxiety decrease Remeron 7.5mg qhs provided ro/st Subjective Date patient seen: December 22, 2017 Neurologic/Psychiatric: Reports: anxiety, depressed, emotional problems Allergies: Coded Allergies: ASPARTAME (Verified Allergy, Unknown, 11/30/17) Headache Subjective the pt was sleepy Objective Last 24 Hour Vital Signs Date Time Temp Pulse Resp B/P (MAP) Pulse Ox O2 Delivery O2 Flow Rate FiO2 12/22/17 13:24 132/66 12/22/17 13:10 T-piece 6.0 28 12/22/17 13:10 96 T-piece 6.0 28 12/22/17 08:00 98.6 75 20 124/61 96 Trach Collar 6.0 28 98.6 12/22/17 08:00 6.0 28 12/22/17 07:44 T-piece 6.0 28 12/22/17 07:43 74 20 T-piece 6.0 28 12/22/17 07:43 97 T-piece 6.0 28 12/22/17 06:46 128/62 12/22/17 04:00 6.0 28 12/22/17 04:00 98.1 71 20 122/62 99 Trach Collar 6.0 28 98.1 12/22/17 03:41 66 12/22/17 01:53 95 Trach Collar 6.0 28 12/22/17 01:53 Trach Collar 6.0 28 12/22/17 00:00 98.1 61 20 124/64 97 Trach Collar 6.0 28 98.1 12/21/17 23:35 70 12/21/17 22:27 125/60 12/21/17 22:00 71 20 125/60 98 Trach Collar 6.0 28 12/21/17 20:00 98.7 72 20 116/60 97 Trach Collar 6.0 28 98.7 12/21/17 20:00 6.0 28 12/21/17 19:46 86 20 Trach Collar 6.0 39 12/21/17 19:46 96 Trach Collar 6.0 28 12/21/17 19:46 Trach Collar 6.0 28 12/21/17 19:27 78 12/21/17 16:00 6.0 28 12/21/17 16:00 97.9 71 18 120/69 98 Trach Collar 6.0 28 97.9 12/21/17 16:00 68 Intake and Output 12/21/17 12/22/17 19:00 07:00 Intake Total 610 ml Output Total 1000 ml 1000 ml Balance -390 ml -1000 ml Intake Oral 610 ml Output Urine Total 1000 ml 1000 ml # Bowel Movements 1 Laboratory Tests 12/21/17 18:00: Sodium Level 140, Potassium Level 3.4L, Chloride Level 100, Carbon Dioxide Level 35H, Anion Gap 5, Blood Urea Nitrogen 8, Creatinine 0.9, Estimat Glomerular Filtration Rate > 60, Glucose Level 174H, Calcium Level 7.8L, Magnesium Level 1.1L 12/22/17 08:05: Sodium Level 142, Potassium Level 3.3L, Chloride Level 102, Carbon Dioxide Level 35H, Anion Gap 5, Blood Urea Nitrogen 7, Creatinine 0.9, Estimat Glomerular Filtration Rate > 60, Glucose Level 174H, Calcium Level 8.0L, Magnesium Level 1.5L, White Blood Count 6.9, Red Blood Count 3.92L, Hemoglobin 10.7L, Hematocrit 37.0, Mean Corpuscular Volume 94, Mean Corpuscular Hemoglobin 27.3, Mean Corpuscular Hemoglobin Concent 28.9L, Red Cell Distribution Width 15.4H, Platelet Count 229, Mean Platelet Volume 8.9, Neutrophils (%) (Auto) 39.0L, Lymphocytes (%) (Auto) 43.1, Monocytes (%) (Auto) 13.4H, Eosinophils (%) (Auto) 3.4H, Basophils (%) (Auto) 1.1 Height (Feet): 5 Height (Inches): 8.00 Weight (Pounds): 283 General Appearance: WD/WN, no apparent distress, alert Neurologic: oriented x 3, responsive, depressed affect Candace Fagan M.D. December 22, 2017 13:58
--- NOTE | 2017-12-22 14:15 | Infectious Diseases Prog Note ---
Assessment/Plan Assessment/Plan ASSESSMENT AND PLAN: 1. respiratory status stable, f/u chest x-ray negative for consolidation, hx sepsis, leukocytosis, fevers, hx mrsa pna/uri, hx possible diphtheroids bacteremia, hx fungal uti, hx arf, trach, no vent currently, sputum culture + for mrsa which is likely colonizer with negative chest x-ray - favor not to treat sputum culture with mrsa unless sob, fevers, leukocytosis, + chest x-ray etc. - f/u labs - surveillance cultures negative - off vent currently - s/p tracheostomy - d/w Katty Lynn NP 2. Respiratory failure, on vent, no pressors - treatment per primary and pulmonary 3. Vargas. 4. The patient has history of hypertension. 5. Diabetes. 6. Hyperlipidemia. 7. Blood sugar and blood pressure treatment per primary. 8. History of asthma. 9. History of myocardial infarction and coronary artery disease. 10. History of heart failure/congestive heart failure. 11. History of gout. 12. History of sepsis and pneumonia. 13. History of muscle weakness. 14. Gastroesophageal reflux disease. 15. Past orders were noted. 16. Allergies are negative. 17. Family History is noncontributory. 18. Social history is negative. 19. MAR was noted. 20. Case discussed with RN. 21. Continue treatment per primary and consultants. 22. Case discussed with Dr. Matthews. 23. Case discussed with RN in the ICU. 24. Orders were noted and entered. 25. Notes and records were noted. 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 Subjective Constitutional: Reports: other - stable on trach, no vent; Denies: fever HEENT: Denies: congestion Respiratory: Denies: shortness of breath Cardiovascular: Denies: chest pain Gastrointestinal/Abdominal: Denies: nausea, vomiting, diarrhea Genitourinary: Reports: other - + vargas Neurologic: Denies: headache Psychiatric: Denies: depression Skin: Denies: rash Hematologic: Denies: bleeding Musculoskeletal: Denies: pain Allergies: Coded Allergies: ASPARTAME (Verified Allergy, Unknown, 11/30/17) Headache Objective Vital Signs Last 24 Hour Vital Signs Date Time Temp Pulse Resp B/P (MAP) Pulse Ox O2 Delivery O2 Flow Rate FiO2 12/22/17 13:24 132/66 12/22/17 13:10 T-piece 6.0 28 12/22/17 13:10 96 T-piece 6.0 28 12/22/17 08:00 98.6 75 20 124/61 96 Trach Collar 6.0 28 98.6 12/22/17 08:00 6.0 28 12/22/17 07:44 T-piece 6.0 28 12/22/17 07:43 74 20 T-piece 6.0 28 12/22/17 07:43 97 T-piece 6.0 28 12/22/17 06:46 128/62 12/22/17 04:00 6.0 28 12/22/17 04:00 98.1 71 20 122/62 99 Trach Collar 6.0 28 98.1 12/22/17 03:41 66 12/22/17 01:53 95 Trach Collar 6.0 28 12/22/17 01:53 Trach Collar 6.0 28 12/22/17 00:00 98.1 61 20 124/64 97 Trach Collar 6.0 28 98.1 12/21/17 23:35 70 12/21/17 22:27 125/60 12/21/17 22:00 71 20 125/60 98 Trach Collar 6.0 28 12/21/17 20:00 98.7 72 20 116/60 97 Trach Collar 6.0 28 98.7 12/21/17 20:00 6.0 28 12/21/17 19:46 86 20 Trach Collar 6.0 39 12/21/17 19:46 96 Trach Collar 6.0 28 12/21/17 19:46 Trach Collar 6.0 28 12/21/17 19:27 78 12/21/17 16:00 6.0 28 12/21/17 16:00 97.9 71 18 120/69 98 Trach Collar 6.0 28 97.9 12/21/17 16:00 68 Height (Feet): 5 Height (Inches): 8.00 Weight (Pounds): 283 General Appearance: no acute distress HEENT: normocephalic, atraumatic, anicteric, mucous membranes moist, status post trach Respiratory/Chest: lungs clear, rhonchi - bilaterally - few Cardiovascular: normal rate, regular rhythm Abdomen: soft, non tender, non distended Genitourinary: other - + vargas Extremities: no cyanosis Skin: no rash 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 The heart is enlarged. Lungs and pleural spaces are clear. Impression: Satisfactory endotracheal intubation Other findings as noted Chest x-ray - 12/06 - A single view chest radiograph was obtained. Findings: Endotracheal tube and nasogastric tubes are in good position unchanged. Lung volumes remain low. Lungs are essentially clear. Heart is enlarged. Bones are unremarkable. IMPRESSION: No acute findings Chest x-ray - 12/08 - IMPRESSION: Right jugular Dillan catheter in good position. No pneumothorax. Mild interstitial edema suspected. 12/10 - chest x-ray - negative (noted) 12/14 - chest x-ray - lungs clear (report noted) 12/19 - chest x-ray - nad (report noted) Microbiology Date/Time Source Procedure Growth Status 12/08/17 13:10 Blood Blood Culture - Final NO GROWTH AFTER 5 DAYS Complete 12/18/17 18:48 Sputum Gram Stain - Final Complete 12/18/17 18:48 Sputum Culture - Final Staphylococcus Aureus - Mrsa Usual Respiratory Cassandra Complete 12/06/17 12:40 Urine,Clean Catch Urine Culture - Final Tamia Tropicalis Tamia Albicans Complete 12/04/17 08:30 Rectum VRE Culture - Final Enterococcus Faecium - Vre Complete Laboratory Tests Test 12/21/17 18:00 12/22/17 08:05 Sodium Level 140 MMOL/L (136-145) 142 MMOL/L (136-145) Potassium Level 3.4 MMOL/L (3.5-5.1) L 3.3 MMOL/L (3.5-5.1) L Chloride Level 100 MMOL/L (98-107) 102 MMOL/L (98-107) Carbon Dioxide Level 35 MMOL/L (21-32) H 35 MMOL/L (21-32) H Anion Gap 5 mmol/L (5-15) 5 mmol/L (5-15) Blood Urea Nitrogen 8 mg/dL (7-18) 7 mg/dL (7-18) Creatinine 0.9 MG/DL (0.55-1.30) 0.9 MG/DL (0.55-1.30) Estimat Glomerular Filtration Rate > 60 mL/min (>60) > 60 mL/min (>60) Glucose Level 174 MG/DL (74-106) H 174 MG/DL (74-106) H Calcium Level 7.8 MG/DL (8.5-10.1) L 8.0 MG/DL (8.5-10.1) L Magnesium Level 1.1 MG/DL (1.8-2.4) L 1.5 MG/DL (1.8-2.4) L White Blood Count 6.9 K/UL (4.8-10.8) Red Blood Count 3.92 M/UL (4.20-5.40) L Hemoglobin 10.7 G/DL (12.0-16.0) L Hematocrit 37.0 % (37.0-47.0) Mean Corpuscular Volume 94 FL (80-99) Mean Corpuscular Hemoglobin 27.3 PG (27.0-31.0) Mean Corpuscular Hemoglobin Concent 28.9 G/DL (32.0-36.0) L Red Cell Distribution Width 15.4 % (11.6-14.8) H Platelet Count 229 K/UL (150-450) Mean Platelet Volume 8.9 FL (6.5-10.1) Neutrophils (%) (Auto) 39.0 % (45.0-75.0) L Lymphocytes (%) (Auto) 43.1 % (20.0-45.0) Monocytes (%) (Auto) 13.4 % (1.0-10.0) H Eosinophils (%) (Auto) 3.4 % (0.0-3.0) H Basophils (%) (Auto) 1.1 % (0.0-2.0) Current Medications Medications (Trade) Dose Ordered Sig/Felipe Route PRN Reason Start Time Stop Time Status Last Admin Dose Admin Acetaminophen (Tylenol) 650 mg Q4H PRN NG Mild Pain 12/17/17 17:27 01/10/18 17:26 12/19/17 20:57 Acetaminophen (Tylenol) 650 mg Q4H PRN ORAL Fever (temp>100.5F) 12/17/17 17:27 01/03/18 17:26 Clotrimazole (Lotrimin) 1 applic THREE TIMES A DAY TOPIC 12/17/17 18:00 01/08/18 08:59 12/22/17 12:07 Dextrose (Dextrose 50%) 25 ml STAT PRN IV Hypoglycemia BS 60-69mg/dl 12/18/17 17:28 01/10/18 17:27 Dextrose (Dextrose 50%) 50 ml STAT PRN IV Hypoglycemia BS less than 60mg 12/18/17 17:28 01/10/18 17:27 Diphenhydramine HCl (Benadryl) 12.5 mg Q6H PRN IVP Itching 12/17/17 17:28 01/07/18 17:27 12/19/17 02:20 Famotidine (Pepcid) 20 mg BID ORAL 12/19/17 18:00 01/16/18 17:59 12/22/17 08:14 Heparin Sodium (Porcine) (Heparin 5000 units/ml) 5,000 units EVERY 12 HOURS SUBQ 12/19/17 21:00 01/03/18 20:59 12/22/17 08:16 Hydralazine HCl (Apresoline) 10 mg Q4H PRN IV sbp> 160 mmHg 12/17/17 17:29 01/08/18 17:28 12/18/17 22:45 Hydralazine HCl (Apresoline) 50 mg EVERY 8 HOURS ORAL 12/19/17 15:00 01/08/18 14:59 12/22/17 13:24 Insulin Aspart (NovoLOG) AC+HS SUBQ 12/17/17 21:00 01/04/18 12:29 12/22/17 12:08 Mirtazapine (Remeron) 7.5 mg BEDTIME ORAL 12/22/17 21:00 01/20/18 20:59 Nitroglycerin (Ntg) 0.4 mg Q5M PRN SL Prn Chest Pain 12/17/17 17:29 01/03/18 17:28 Ondansetron HCl (Zofran) 4 mg Q6H PRN IVP Nausea & Vomiting 12/17/17 17:30 01/03/18 17:29 Potassium Chloride 40 meq/ Sodium Chloride 570 ml @ 142.5 mls/ hr ONCE ONCE IVPB 12/22/17 12:30 12/22/17 16:29 ALKASSPOOLES,SALAM December 22, 2017 14:15
[2017-12-22 16:00] VITALS: BP 124/67
--- NOTE | 2017-12-22 16:32 | Cardiac Electrophysiology PN ---
Assessment/Plan Assessment/Plan 1. Sinus bradycardia. No further significant [place]annah. HR in mid to high 50s. Asymptomatic. 2. Respiratory failure. S/P tracheostomy 3. Hypertension, on hydralazine 50 q 8hr. 4. Morbid obesity. 5. History of supraventricular tachycardia. No recurrence. Keep off AAs. 6. Elevated liver enzymes. 7. Renal failure. 8. DC to [facility] pending 9. Hypomagnesemia 0.9 , Replaced DW RN Subjective Subjective Alert in NAD with no CP or SOB. Awaiting DC to [facility] [place] Objective Last 24 Hour Vital Signs Date Time Temp Pulse Resp B/P (MAP) Pulse Ox O2 Delivery O2 Flow Rate FiO2 12/22/17 13:24 132/66 12/22/17 13:10 T-piece 6.0 28 12/22/17 13:10 96 T-piece 6.0 28 12/22/17 08:00 98.6 75 20 124/61 96 Trach Collar 6.0 28 98.6 12/22/17 08:00 6.0 28 12/22/17 07:44 T-piece 6.0 28 12/22/17 07:43 74 20 T-piece 6.0 28 12/22/17 07:43 97 T-piece 6.0 28 12/22/17 06:46 128/62 12/22/17 04:00 6.0 28 12/22/17 04:00 98.1 71 20 122/62 99 Trach Collar 6.0 28 98.1 12/22/17 03:41 66 12/22/17 01:53 95 Trach Collar 6.0 28 12/22/17 01:53 Trach Collar 6.0 28 12/22/17 00:00 98.1 61 20 124/64 97 Trach Collar 6.0 28 98.1 12/21/17 23:35 70 12/21/17 22:27 125/60 12/21/17 22:00 71 20 125/60 98 Trach Collar 6.0 28 12/21/17 20:00 98.7 72 20 116/60 97 Trach Collar 6.0 28 98.7 12/21/17 20:00 6.0 28 12/21/17 19:46 86 20 Trach Collar 6.0 39 12/21/17 19:46 96 Trach Collar 6.0 28 12/21/17 19:46 Trach Collar 6.0 28 12/21/17 19:27 78 Intake and Output 12/21/17 12/22/17 19:00 07:00 Intake Total 610 ml Output Total 1000 ml 1000 ml Balance -390 ml -1000 ml Intake Oral 610 ml Output Urine Total 1000 ml 1000 ml # Bowel Movements 1 Laboratory Tests Test 12/21/17 18:00 12/22/17 08:05 Sodium Level 140 MMOL/L (136-145) 142 MMOL/L (136-145) Potassium Level 3.4 MMOL/L (3.5-5.1) L 3.3 MMOL/L (3.5-5.1) L Chloride Level 100 MMOL/L (98-107) 102 MMOL/L (98-107) Carbon Dioxide Level 35 MMOL/L (21-32) H 35 MMOL/L (21-32) H Anion Gap 5 mmol/L (5-15) 5 mmol/L (5-15) Blood Urea Nitrogen 8 mg/dL (7-18) 7 mg/dL (7-18) Creatinine 0.9 MG/DL (0.55-1.30) 0.9 MG/DL (0.55-1.30) Estimat Glomerular Filtration Rate > 60 mL/min (>60) > 60 mL/min (>60) Glucose Level 174 MG/DL (74-106) H 174 MG/DL (74-106) H Calcium Level 7.8 MG/DL (8.5-10.1) L 8.0 MG/DL (8.5-10.1) L Magnesium Level 1.1 MG/DL (1.8-2.4) L 1.5 MG/DL (1.8-2.4) L White Blood Count 6.9 K/UL (4.8-10.8) Red Blood Count 3.92 M/UL (4.20-5.40) L Hemoglobin 10.7 G/DL (12.0-16.0) L Hematocrit 37.0 % (37.0-47.0) Mean Corpuscular Volume 94 FL (80-99) Mean Corpuscular Hemoglobin 27.3 PG (27.0-31.0) Mean Corpuscular Hemoglobin Concent 28.9 G/DL (32.0-36.0) L Red Cell Distribution Width 15.4 % (11.6-14.8) H Platelet Count 229 K/UL (150-450) Mean Platelet Volume 8.9 FL (6.5-10.1) Neutrophils (%) (Auto) 39.0 % (45.0-75.0) L Lymphocytes (%) (Auto) 43.1 % (20.0-45.0) Monocytes (%) (Auto) 13.4 % (1.0-10.0) H Eosinophils (%) (Auto) 3.4 % (0.0-3.0) H Basophils (%) (Auto) 1.1 % (0.0-2.0) Objective HEAD AND NECK: No JVD. S/P Tracheostomy LUNGS: Coarse rhonchi. CARDIOVASCULAR: Bradycardic S1 and S2 . ABDOMEN: Morbidly obese. EXTREMITIES: 1+ pitting edema. Melvin Bejarano MD December 22, 2017 16:32
== END 2017-12-22 18:55 | DRG 4 ==
LOC: EDBD 09:02 → EMR 09:27 → ICU 09:28 → EDBEDREQSVC 09:40 → EDBEDREQ 10:13 → 2W 12-11 16:53 → 2E 12-17 17:08
PROC: 5A1955Z Respiratory Ventilation, Greater than 96 Consecutive Hours (ICD-10-PCS; principal; 2017-12-04)
PROC: 0BH17EZ Insertion of Endotracheal Airway into Trachea, Via Natural or Artificial Opening (ICD-10-PCS; principal; 2017-12-04)
PROC: B543ZZA Ultrasonography of Right Jugular Veins, Guidance (ICD-10-PCS; 2017-12-07)
PROC: 5A1D70Z Performance of Urinary Filtration, Intermittent, Less than 6 Hours Per Day (ICD-10-PCS; 2017-12-07)
PROC: 05HM33Z Insertion of Infusion Device into Right Internal Jugular Vein, Percutaneous Approach (ICD-10-PCS; 2017-12-07)
PROC: 0B113F4 Bypass Trachea to Cutaneous with Tracheostomy Device, Percutaneous Approach (ICD-10-PCS; 2017-12-10)
PROC: 0HBRXZZ Excision of Toe Nail, External Approach (ICD-10-PCS; 2017-12-19)
DX: A41.9 Sepsis, unspecified organism (principal); J69.0 Pneumonitis due to inhalation of food and vomit; G92 Toxic encephalopathy; J96.22 Acute and chronic respiratory failure with hypercapnia; J96.21 Acute and chronic respiratory failure with hypoxia; R65.21 Severe sepsis with septic shock; I50.33 Acute on chronic diastolic (congestive) heart failure; J15.212 Pneumonia due to Methicillin resistant Staphylococcus aureus; N17.0 Acute kidney failure with tubular necrosis; N39.0 Urinary tract infection, site not specified; E66.2 Morbid (severe) obesity with alveolar hypoventilation; J44.0 Chronic obstructive pulmonary disease with (acute) lower respiratory infection; Z68.41 Body mass index [BMI] 40.0-44.9, adult; B49 Unspecified mycosis; D68.9 Coagulation defect, unspecified; E11.9 Type 2 diabetes mellitus without complications; K21.9 Gastro-esophageal reflux disease without esophagitis; K76.0 Fatty (change of) liver, not elsewhere classified; I11.0 Hypertensive heart disease with heart failure; D64.9 Anemia, unspecified; R74.0 Nonspecific elevation of levels of transaminase and lactic acid dehydrogenase [LDH]; R00.1 Bradycardia, unspecified; L60.2 Onychogryphosis; F32.9 Major depressive disorder, single episode, unspecified; F41.9 Anxiety disorder, unspecified; G47.00 Insomnia, unspecified; E83.42 Hypomagnesemia
CPT/HCPCS: 36415; 36569; 36600; 71045; 74018; 74230; 76937; 80048; 80053; 80061; 80076; 80162; 80202; 81001; 81003; 82248; 82533; 82550; 82553; 82570; 82728; 82803; 82962; 82977; 83036; 83540; 83550; 83605; 83615; 83735; 83880; 84100; 84133; 84300; 84443; 84484; 84550; 85007; 85025; 85044; 85384; 85610; 85730; 86140; 87040; 87070; 87081; 87086; 87181; 87205; 89050; 93005; 93306; 94002; 94003; 94150; 94640; 94664; 94760; 99291; J1815; J2250; J2405; J7620; J8499